=== PATIENT | male | born 1955 | race Caucasian/White ===

== ENCOUNTER → 2017-11-18 08:24 | Outpatient (CLI) | payer OTHER, SELFPAY ==
--- NOTE | 2017-11-18 08:26 | US_ITS ---
STUDY: ABDOMINAL ULTRASOUND - RIGHT UPPER QUADRANT REASON FOR VISIT: Male, 62 years old. Right upper quadrant pain x2 days TECHNIQUE: Ultrasound evaluation of the right upper quadrant was performed with real-time and static holland-scale imaging. TECHNICAL QUALITY: Limited. Examination limited by bowel gas. COMPARISON: None. FINDINGS: Liver: The liver measures 15.5 cm. There is increased echogenicity consistent with fatty infiltration. The bile ducts are within normal limits. There is hepatic color flow. The direction of portal flow is hepatopetal. There is no demonstrated mass lesion. Gallbladder: There is a contracted gallbladder. The gallbladder wall measures 3.3 mm. There is a negative sonographic Hanks's sign. There is no pericholecystic fluid. There is a small 2mm gallbladder polyp. Common Bile Duct (C.B.D.): The common bile duct measures 4.8 mm. Pancreas: Normal size of the head, body and tail of the pancreas. There is normal echogenicity of the pancreas. There is no demonstrated pancreatic mass or cyst. Right Kidney: Normal size of the right kidney. The right kidney measures 9.6 cm. Normal renal cortex. The right cortex measures 1.7 cm. There is no demonstrated renal mass or cyst. There is no right hydronephrosis. Nonobstructing right nephrolithiasis measuring 4 mm and 5 mm. US/Gallbladder IMPRESSION: Small gallbladder polyp without signs of acute cholecystitis. Punctate nonobstructing right nephrolithiasis. Mildly fatty liver. Electronically Signed: Thaddeus Recio DO at 9:43 EDT Tel , Service support ,
== END ==
LOC: US 08:24
PROVIDERS: Family Provider Internal Medicine; PCP Internal Medicine; Visit Provider Nurse Practitioner Gerontology
DX: R10.11 Right upper quadrant pain (principal)
CPT/HCPCS: 76705

== ENCOUNTER → 2018-12-14 11:32 | Outpatient (CLI) | payer OTHER, SELFPAY ==
[2017-11-24 08:08] VITALS: BMI 22.1
--- NOTE | 2018-12-14 11:36 | RAD_ITS ---
STUDY: X-RAY CHEST REASON FOR EXAM: Male, 63 years old. Cough. TECHNIQUE: PA and lateral views of the chest. COMPARISON: None. FINDINGS: The lungs are clear and expanded. There is no demonstrated pleural abnormality. Normal size heart. Normal mediastinum and sundeep. Normal visualized pulmonary arteries. Normal visualized aortic arch and descending thoracic aorta. Normal visualized thoracic spine. Normal visualized ribs, clavicles, and shoulders. There is no demonstrated abnormality of the visualized soft tissue structures of the upper abdomen. RAD/Chest PA and Lateral IMPRESSION: No evidence of acute process or focal airspace disease. Electronically Signed: Rafa Saha DO at 9:28 EDT , Service support ,
== END ==
PROVIDERS: Family Provider Internal Medicine; PCP Internal Medicine; Referring Provider Internal Medicine; Visit Provider Internal Medicine
DX: R05 Cough (principal)
CPT/HCPCS: 71046

== ENCOUNTER → 2019-01-27 08:29 | Outpatient (CLI) | payer OTHER, BC, SELFPAY ==
[2017-11-24 08:08] VITALS: BMI 22.1
[2019-01-27 10:52] LABS: AST(SGOT) 22 U/L (15-37); Alanine Aminotransfer ALT/SGPT 31 U/L (16-61); Albumin, Serum 3.7 g/dL (3.2-5.0); Alkaline Phosphatase 141 U/L (45-117); Bilirubin, Direct 0.08 mg/dL (0.00-0.30); Globulin 3.2 g/dL (2.2-4.2); Protein, Total 6.9 g/dL (6.4-8.2)
[2019-01-29 12:06] LABS: CHOLESTEROL TOTAL 140 mg/dL (100-199); HDL-C 33 mg/dL (>39); HDL-P TOTAL 23.8 umol/L (>=30.5); SMALL LDL-P 634 nmol/L (<=527); TRIGLYCERIDES 118 mg/dL (0-149)
[2019-01-29 12:47] LABS: INSULIN RESISTANCE SCORE 67 (<=45); LDL SIZE 20.2 nm (>20.5); LDL-C 83 mg/dL (0-99); LDL-P 1032 nmol/L (<1000)
== END ==
PROVIDERS: Family Provider Internal Medicine; PCP Internal Medicine; Referring Provider Internal Medicine; Visit Provider Internal Medicine
DX: E78.00 Pure hypercholesterolemia, unspecified (principal)
CPT/HCPCS: 36415; 80061; 80076; 83704

== ENCOUNTER → 2019-09-03 10:37 | Outpatient (CLI) | payer BC, SELFPAY ==
--- NOTE | 2019-09-03 10:55 | RAD_ITS ---
HISTORY: 2 views of the abdomen. Most recent comparison study is October 15, 2014. Findings: Within the right renal shadow, between the right first and second transverse processes there is a 10 mm hyperdense structure new since the previous study likely representing a nephrolith. Comparison CT scan is from March 16, 2014. A right nephrolith in the right ureteral pelvic junction was demonstrated at that time. It is feasible that this is the same kidney stone. Bowel gas pattern is normal. Degenerative disc disease at the L4-L5 and L5-S1 level. Lung bases are clear. Some sclerosis at the pubic symphysis. RAD/Abdomen Single View IMPRESSION: 10 mm calcification within the region of the right ureteral pelvic junction or right renal collecting system appears to be larger than the CT scan of March 16, 2014 at 0605 Reported and signed by: Je Brown MD Electronically Signed: Je Brown MD at 6:03 EST Tel , Service support ,
== END ==
PROVIDERS: PCP Internal Medicine; Referring Provider Urology; Visit Provider Urology
DX: R31.0 Gross hematuria (principal); R10.84 Generalized abdominal pain; Z87.442 Personal history of urinary calculi
CPT/HCPCS: 74018

== ENCOUNTER 2019-09-07 11:01 | Day surgery (SDC) | payer BC, SELFPAY ==
--- NOTE | 2019-09-07 08:27 | RAD_ITS ---
STUDY: X-RAY - ABDOMEN/PELVIS REASON FOR EXAM: Male, 64 years old. PRE RIGHT SIDE ESWL FOR STONE TECHNIQUE: Single AP view of the abdomen / pelvis. COMPARISON: Comparison is made with prior examination dated September 03, 2019. FINDINGS: Normal visualized lung bases. There is an unremarkable bowel gas pattern. 8.1 mm calcification in the region of the right ureteral pelvic junction. Normal soft tissue structures. Normal visualized osseous structures. RAD/Abdomen Single View IMPRESSION: 8.1 mm calculus in the right ureteropelvic junction. Electronically Signed: Oscar Molina, at 12:07 EST , Service support ,
[2019-09-07 11:41] VITALS: BP 170/89; PULSE 84; RESP 16; TEMP 37.4; O2SAT 96; BMI 25.8
[2019-09-07] MEDS: Lactated Ringers 1,000 ML 100 ML IV (11:55)
--- NOTE | 2019-09-07 13:37 | PCM.DC.URO ---
Discharge Diet: Light diet - advance as tolerated Discharge Activity: Return to Normal Activity Call your doctor if you observe: Fever of 101 or Higher Instructions: Shock Wave Lithotripsy Allergies/Adverse Reactions: Allergies hydrocodone bitartrate [From Vicodin] Adverse Reaction (Verified 09/06/19 10:23) Other Medications to take at Discharge Atorvastatin Calcium [Lipitor] 40 mg PO QHS 09/06/19 Primidone [Mysoline] 250 mg PO BID 09/06/19 Umeclidinium Lonepine Inhaler [Incruse Ellipta Inhaler] 1 puff IH DAILY 09/06/19 Ciprofloxacin [Cipro] 500 mg PO BID #6 tab 09/07/19 Hydrocodone/Acetaminophen [[place] 5-325 Tablet] 1 each PO Q4H PRN PRN 5 Days #14 tablet 09/07/19 The following prescriptions were given: Ciprofloxacin [Cipro] 500 mg PO BID #6 tab Transmission Status: Pending to [id number] Hydrocodone/Acetaminophen [[place] 5-325 Tablet] 1 each PO Q4H PRN PRN 5 Days #14 tablet PRN Reason: Pain Score 1-5/10 Transmission Status: Received by [id number] Orders to be completed after discharge: Abdomen Single View [RAD] Time Frame: 09/07/19, Facility: [facility], Location: [facility] [place] Primary Care Physician: Marybeth Thomas DO [Primary Care Provider] - Test Results: Test results from this visit will be discussed in further detail at your follow-up appointment, if applicable. Please Follow Up With: Dean Sarabia MD When: please call to make an appointment.
[2019-09-07] MEDS: Cefazolin 2 GM in 0.9% Normal Saline 100 ML IV (13:46)
--- NOTE | 2019-09-07 14:37 | OP.PCM_ITS ---
Report of Operation Date of Procedure: 09/07/19 Pre-Operative Diagnosis: Right kidney stone Post-Operative Diagnosis: Same Surgery/Procedure Performed:: Cystoscopy and right stent placement, right extracorporeal shockwave lithotripsy Description of Surgical Findings:: 64-year-old male with a stone in the right kidney presents today to the operating room for shockwave lithotripsy to treat the stone we also can place a stent. Patient was taken back to the operating room after smooth induction of general anesthesia he was placed supine on the table, we then underwent anesthesia and then we placed in the dorsolithotomy position went into the bladder with a 21 Palestinian rigid cystourethroscope the entire length the urethra was normal there is no strictures or abnormalities the prostate was normal, I then identified the right ureteral orifice advanced a wire up into the kidney which quarter inside the kidney pelvis and around the stone, I then pushed the stent up into the kidney over the wire once a stent was in good position pulled the wire the stent coiled in the kidney bladder good position. We then placed the stone in the F2 focal point of the lithotripter and proceeded with shockwave lithotripsy triply. At around 2000 shockwaves the stone had broken up really well we pulled out the therapy had and saw a few more fragments in the upper pole we gave another thousand shockwaves to the small fragments and at the end of the treatment the stone it broken up successfully. We were going at a rate of 120 kV up to 5 kV. And at the end the treatment stone it broken up into smaller pieces. Patient anesthetic was reversed plan to see him next week with a KUB and remove the stent at that point. Type of Anesthesia:: General Drains: stent right side - Admit VTE Documentation VTE Present on Admission: No VTE Mechan Device Prophylaxis: SCD's
[2019-09-07 14:56] VITALS: BP 170/89; BP 183/92; PULSE 96; RESP 14; TEMP 36.4; O2SAT 96
[2019-09-07] MEDS: Ketorolac 15 MG/ML Vial IV (14:59)
[2019-09-07 15:00] VITALS: BP 170/89; BP 185/84; PULSE 73; RESP 16; O2SAT 95
[2019-09-07 15:15] VITALS: BP 170/89; BP 185/93; PULSE 72; RESP 16; O2SAT 95
[2019-09-07 15:19] VITALS: BP 170/89; BP 197/93; PULSE 68; RESP 16; TEMP 36.3; O2SAT 94
[2019-09-07 15:56] VITALS: BP 170/89; BP 178/88; PULSE 77; RESP 16; TEMP 37.5; O2SAT 95
== END 2019-09-07 16:02 | disposition home or self-care (01) ==
LOC: SDC 11:05 → AC 11:12
PROVIDERS: PCP Internal Medicine; Referring Provider Urology; Visit Provider Urology
PROC: (CPT 50590; principal; 2019-09-07 13:30)
DX: N20.0 Calculus of kidney (principal); R31.0 Gross hematuria; I10 Essential (primary) hypertension; E78.5 Hyperlipidemia, unspecified; M79.10 Myalgia, unspecified site; K21.9 Gastro-esophageal reflux disease without esophagitis; F41.9 Anxiety disorder, unspecified; F17.200 Nicotine dependence, unspecified, uncomplicated; Z87.442 Personal history of urinary calculi; Z79.899 Other long term (current) drug therapy
CPT/HCPCS: 50590; 52332; 74018; J7120; C1769; C2617; J2405

== ENCOUNTER → 2019-09-13 12:51 | Outpatient (CLI) | payer BC, SELFPAY ==
[2019-09-07 11:41] VITALS: BMI 25.8
--- NOTE | 2019-09-13 12:55 | RAD_ITS ---
STUDY: X-RAY - ABDOMEN/PELVIS REASON FOR EXAM: Male, 64 years old. TOOK OUT KIDNEY ON RIGHT SIDE. STINT WAS PUT IN X LAST WEEK. TECHNIQUE: Single AP view of the abdomen / pelvis. COMPARISON: FINDINGS: Normal visualized lung bases. There is an unremarkable bowel gas pattern. There is no demonstrated free abdominal air. Interval placement of right ureteral stent. No definite ureteral stone. Normal soft tissue structures. Normal visualized osseous structures. RAD/Abdomen Single View IMPRESSION: Interval placement of right ureteral stent. No definite ureteral stone. Electronically Signed: Patrick Stanton MD at 10:12 EST Tel , Service support ,
== END ==
PROVIDERS: PCP Internal Medicine; Referring Provider Urology; Visit Provider Urology
DX: N20.0 Calculus of kidney (principal)
CPT/HCPCS: 74018

== ENCOUNTER → 2021-04-23 15:28 | Outpatient (CLI) | payer BC, SELFPAY ==
--- NOTE | 2021-04-23 15:31 | CT_ITS ---
EXAM: CT CHEST, LUNG CANCER SCREENING WITHOUT INTRAVENOUS CONTRAST : 1955 CLINICAL INDICATION: COPD TECHNIQUE: Helically acquired images were obtained of the chest without intravenous contrast using low dose (LDCT) lung cancer screening protocol. This CT exam was performed using one or more of the following dose reduction techniques: automated exposure control, adjustment of the mA and/or kV according to patient size, and/or use of iterative reconstruction technique. This report was created using [employer] report generation technology. COMPARISON: None. FINDINGS: LUNGS AND PLEURAL SPACES: Unremarkable. No mass. No consolidation or edema. No pleural effusion or thickening. No pneumothorax. HEART: Unremarkable. Heart size is normal. No pericardial effusion. MEDIASTINUM: Unremarkable. No mediastinal or hilar adenopathy. Esophagus is unremarkable. No hiatal hernia. THYROID: Unremarkable. No thyroid lesions. BONES/JOINTS: Unremarkable. No suspicious lytic or blastic abnormality. VASCULATURE: Unremarkable. Thoracic aorta is non-dilated. LYMPH NODES: Unremarkable. No enlarged lymph nodes. CT/Low Dose CT Lung Screening IMPRESSION: 1. Normal chest CT. 2. Lung RADS category 1 Individualized dose optimization techniques were used for this CT. at 1731 Reported and signed by: Efrain Sellers MD Electronically Signed: Efrain Sellers MD at 17:29 EDT Tel , Service support ,
== END ==
PROVIDERS: PCP Internal Medicine; Referring Provider Internal Medicine; Visit Provider Internal Medicine
DX: Z12.2 Encounter for screening for malignant neoplasm of respiratory organs (principal); J44.9 Chronic obstructive pulmonary disease, unspecified
CPT/HCPCS: 71271

== ENCOUNTER → 2022-04-12 | Outpatient (CLI) | payer BC, SELFPAY ==
--- NOTE | 2022-04-12 | IMM_PTH ---
PATIENT: VISHAL GAR LOC: [facility] U#:[id number] AGE/SX: 67/M ROOM: RE04/12/[address]: Dr. Dean Sarabia MD : 1955 BED: DIS: 04/12/2022 SPEC #: [id number] RECD: 04/14/22 12:51 STATUS: KARRIE REQ #: [id number] DANIA: 04/12/22 00:[address]: Dean Sarabia DEPT: IMMUNOHISTOCHEMISTRY RECD BY: Kelli Haro ENTERED: 04/14/22 12:52 SP TYPE: IMMUNO OTHR DR: Dr. Marybeth Thomas, Tissues: E - PROSTATE LEFT Procedures: P40 (add) 34BE12 (initial) PHYSICIAN & INSTITUTION [place] [id number] SPECIMEN INFORMATION: Tissue Source: E - Left prostate, mid, core biopsy Clinical Info: Elevated PSA Specimen Number: [id number] CPT code: 66858, 54278 METHODOLOGY: Deparaffinized sections of prefer/formalin-fixed tissue or PAP/DQ stained slides are incubated with monoclonal/polyclonal antibodies/oligonucleotide probes. Localization is made via biotin free immunoperoxidase method. Appropriate controls are performed and reacted as expected. Results on target cell population are indicated in the following table: RESULTS: ANTIBODY / CLONE RESULT Block E P40 (BC28) negative 34BE12 (34BE12) negative These tests were developed and their performance characteristics determined by [facility]. They may not have been cleared or approved by the U.S. Food and Drug Administration. The FDA has determined that such clearance or approval is not necessary. The above immunohistochemical/dualISH markers are ordered and reviewed by the Pathologist. INTERPRETATION: Grace Left prostate, mid, core biopsy: Minute focus of adenocarcinoma. AM:anne-marie 04/16/2022
--- NOTE | 2022-04-12 08:00 | PROSBIL_PTH ---
PATIENT: VISHAL GAR LOC: [facility] U#:[id number] AGE/SX: 67/M ROOM: RE04/12/[address]: Dr. Dean Sarabia MD : 1955 BED: DIS: 04/12/2022 SPEC #: [id number] RECD: 04/12/22 16:00 STATUS: KARRIE SOILA #: [id number] DANIA: 04/12/22 08:[address]: Dean Sarabia DEPT: SURGICAL PATHOLOGY RECD BY: Maryse Dutta ENTERED: 04/13/22 08:03 SP TYPE: PROST BX VERONIKA DR: Dr. Marybeth Thomas DO Tissues: A - PROSTATE RIGHT B - PROSTATE RIGHT C - PROSTATE RIGHT D - PROSTATE LEFT E - PROSTATE LEFT F - PROSTATE LEFT Procedures: PROSTATE BX HEADER OPERATION: Prostatic biopsy PRE-OP DIAGNOSIS: Elevated PSA R97.20 TISSUE SUBMITTED: A - Right apex, B - Right mid, C - Right base, D - Left apex, E - Left mid, F - Left base MICROSCOPIC DIAGNOSIS A. Right prostate, apex, core biopsy: Adenocarcinoma. [place] grade: 7 (3+4) Cores involved: 1 out of 1 Tissue involved: 35% Greatest tumor length: 4 millimeters B. Right prostate, mid, core biopsy: Adenocarcinoma. [place] grade: 7 (3+4) Cores involved: 2 out of 2 Tissue involved: 70% Greatest tumor length: 7 millimeters C. Right prostate, base, core biopsy: Focal high-grade prostatic intraepithelial neoplasia (HGPIN). Mild chronic inflammation with focal acute inflammation. D. Left prostate, apex, core biopsy: Focal acute inflammation. E. Left prostate, mid, core biopsy: Adenocarcinoma. [place] grade: 6 (3+3) Cores involved: 1 out of 2 Tissue involved: <1% Greatest tumor length: 1.0 millimeters F. Left prostate, base, core biopsy: Adenocarcinoma. Dayo grade: 6 (3+3) Cores involved: 2 out of 2 Tissue involved: 45% Greatest tumor length: 4.5 millimeters AM:anne-marie 04/14/2022 COMMENT E. Immunohistochemistry ([id number]) supports the above diagnosis. Case has been reviewed in consultation with Dr. Steen who concurs with the above diagnosis. IDC:SJ MICROSCOPIC DESCRIPTION Slides are reviewed. GROSS DESCRIPTION A - Received is one container designated prostate, right apex. The specimen consists of one elongated fragment of light bull-white soft tissue measuring 1.5 cm in length and 0.1 cm in diameter. The specimen is totally submitted in one cassette. B - Received is one container designated prostate, right mid. The specimen consists of two elongated fragments of light bull-white soft tissue each measuring 1 cm in length and 0.1 cm in diameter. The specimen is totally submitted in one cassette. C - Received is one container designated prostate, right base. The specimen consists of two elongated fragments of light bull-white soft tissue each measuring 1 cm in length and 0.1 cm in diameter. The specimen is totally submitted in one cassette. D - Received is one container designated prostate, left apex. The specimen consists of two elongated fragments of light bull-white soft tissue measuring 0.5 and 0.7 cm in length and 0.1 cm in diameter. The specimen is totally submitted in one cassette. E - Received is one container designated prostate, left mid. The specimen consists of two elongated fragments of light bull-white soft tissue each measuring 1.5 cm in length and 0.1 cm in diameter. The specimen is totally submitted in one cassette. F - Received is one container designated prostate, left base. The specimen consists of two elongated fragments of light bull-white soft tissue measuring 1.5 and 2 cm in length and 0.1 cm in diameter. The specimen is totally submitted in one cassette. / SJ:rg 04/13/2022 TC:0 CPT: 93299 x6
== END | disposition home or self-care (01) ==
LOC: LABSPEC 16:50
PROVIDERS: PCP Internal Medicine; Visit Provider Urology
DX: R97.20 Elevated prostate specific antigen [PSA] (principal)
CPT/HCPCS: 88305; 88341; 88342; G0416

== ENCOUNTER → 2022-05-13 | Outpatient (CLI) | payer BC, SELFPAY ==
--- NOTE | 2022-05-13 07:53 | CT_ITS ---
STUDY: CT ABDOMEN AND PELVIS WITH CONTRAST REASON FOR EXAM: Male, 67 years old. Known prostate CA RADIATION DOSAGE (If Supplied By Facility): CTDIvol = ( 13.72 ) mGy, DLP = ( 784.09 ) mGycm TECHNIQUE: Transaxial images were obtained from the dome of the diaphragm to the symphysis pubis with oral contrast. IV 100mL Isovue-300 was administered. Sagittal and coronal images were reconstructed. Individualized dose optimization techniques were used for this CT. COMPARISON: No recent studies, previous CT from 2013 FINDINGS: The visualized lung bases are unremarkable. The visualized portions of the heart are within normal limits. Normal liver. Normal gallbladder and extrahepatic biliary system. Normal spleen. Normal pancreas. Normal bilateral adrenal glands. There is mild right hydronephrosis and hydroureter with induration of the fat around the UPJ. There is a 0.80 cm stone in the right UPJ. The right ureter distal to the UPJ is of normal course and caliber. Left kidney is free of obstructive uropathy. Normal visualized stomach. Normal small intestine. Retained stool noted throughout the colon. The appendix is visualized and appears normal. Appendix seen on coronal recon images 60 through 70, it contains appendicoliths There is diffuse atherosclerotic calcification of the abdominal aorta, without a demonstrated aneurysm. Normal inferior vena cava. Normal retroperitoneum. Normal urinary bladder. There are prostatic calcifications. Normal abdominal wall. There are diffuse degenerative changes of the visualized lumbar spine. CT/Abdomen/Pelvis WITH Contrast IMPRESSION: Right-sided hydronephrosis and dilatation of the UPJ subtle inflammatory stranding around the right UPJ. Findings likely due to a 0.80 cm calcification in the UPJ. No free intraperitoneal fluid, air, or suspicious adenopathy, normal appendix visualized Retained stool throughout the colon Degenerative bony changes Electronically Signed: Fredrick Soriano MD at 8:51 EDT ,
[2022-05-13 08:40] LABS: CREATININE FINGERSTICK 1.4 mg/dL (0.70-1.30)
== END | disposition home or self-care (01) ==
PROVIDERS: PCP Internal Medicine; Referring Provider Urology; Visit Provider Urology
DX: C61 Malignant neoplasm of prostate (principal)
CPT/HCPCS: 74177; Q9967

== ENCOUNTER → 2022-05-18 | Outpatient (CLI) | payer BC, SELFPAY ==
[2022-05-18 12:25] LABS: Hematocrit 47.7 % (40-54); Hemoglobin 16.6 g/dL (13.0-16.5); Mean Corp Hgb Conc 34.8 g/dL (32-36); Mean Corpuscular Hgb 31.4 pg (27.0-32.0); Mean Corpuscular Volume 90.2 fL (80-94); Mean Platelet Vol. 10.6 fl (6.2-12.0); Platelet Count 206 K/mm3 (150-450); RBC Distribution Width CV 12.7 % (11.6-14.6); RBC Distribution Width SD 41.8 fl (35.1-43.9); Red Blood Count 5.29 M/mm3 (4.6-6.2); White Blood Count 12.6 K/mm3 (4.4-11.0)
[2022-05-18 12:57] LABS: Anion Gap 4 (5-15); BUN 16 mg/dL (7-18); BUN/Creat Ratio 13.8 RATIO (10-20); Chloride 107 mmol/L (98-107); Creatinine, Serum 1.16 mg/dL (0.70-1.30); EST Glomerular Filtration Rate 67 mL/min (>60); Est Glom Filt Rate - Afr Amer 81 mL/min (>60); Glucose 93 mg/dL (74-106); Potassium 4.2 mmol/L (3.5-5.1); Sodium Level 137 mmol/L (136-145)
== END | disposition home or self-care (01) ==
LOC: LAB 11:53
PROVIDERS: PCP Internal Medicine; Visit Provider Urology
DX: Z01.812 Encounter for preprocedural laboratory examination (principal)
CPT/HCPCS: 36415; 80048; 85027

== ENCOUNTER → 2022-05-25 | Outpatient (CLI) | payer BC, SELFPAY ==
--- NOTE | 2022-05-25 15:44 | EKG12_ITS ---
Test Reason : PRE OP Blood Pressure : / mmHG Vent. Rate : 101 BPM Atrial Rate : 101 BPM P-R Int : 132 ms QRS Dur : 066 ms QT Int : 324 ms P-R-T Axes : 000 054 024 degrees QTc Int : 420 ms Sinus tachycardia with occasional Premature ventricular complexes Nonspecific ST and T wave abnormality Abnormal ECG Confirmed by RAFAELA GABRIEL, LESLY ([id number]), editor city ADRIAN TRUONG ([id number]) on 05/26/2022 9:32:09 AM Referred By: Dean Sarabia Confirmed By:LESLY RUSSO MD
== END | disposition home or self-care (01) ==
LOC: PSN 15:43
PROVIDERS: PCP Internal Medicine; Referring Provider Urology; Visit Provider Urology
DX: Z01.810 Encounter for preprocedural cardiovascular examination (principal)
CPT/HCPCS: 93005

== ENCOUNTER → 2022-06-25 | Outpatient (CLI) | payer BC, SELFPAY ==
--- NOTE | 2022-06-25 09:08 | NM_ITS ---
CLINICAL: 67-year-old male with history of carcinoma of the prostate. WHOLE BODY 99m Tc MDP RADIONUCLIDE BONE SCINTIGRAPHY COMPARISON: None available FINDINGS: Following the intravenous administration of 26.5 mCi of 99m Tc MDP, whole body bone images reveal: 1. Increased tracer concentration is defined in the acromioclavicular compartments of both shoulders, the right midfoot, the posterior midline sacrum. 2. The remaining skeletal structures are scintigraphically unremarkable with normal-appearing renal images and urinary bladder activity identified. NM/Bone Scan Whole Body IMPRESSION: 1. The increase in tracer concentration defined in the bilateral shoulders, sacrum and right midfoot are most consistent with degenerative arthrosis. 2. There is no definitive scintigraphic evidence of diffuse axial skeletal metastatic disease on the current examination. Electronically Signed: Patrick Vizcarra, at 11:25 EST ,
== END | disposition home or self-care (01) ==
LOC: NM 09:07
PROVIDERS: PCP Internal Medicine; Visit Provider Urology
DX: C61 Malignant neoplasm of prostate (principal)
CPT/HCPCS: 78306; A9503

== ENCOUNTER 2022-06-30 14:19 | Observation (INO) | payer BC, MEDICARE, SELFPAY ==
[2022-06-30] VITALS (16 sets, daily range): BP systolic 114–171; BP diastolic 62–86; PULSE 76–95; RESP 14–18; TEMP 36.3–36.8; O2SAT 93–100; BMI 23.7; BMI 25.4
--- NOTE | 2022-06-30 | IMM_PTH ---
PATIENT: VISHAL GAR LOC: [facility] U#:[id number] AGE/SX: 67/M ROOM: [facility] RE06/30/[address]: Dr. Dean Sarabia MD : 1955 BED: 1 DIS: 07/01/2022 SPEC #: [id number] RECD: 07/02/22 12:35 STATUS: KARRIE REAnthony #: [id number] DANIA: 06/30/22 00:[address]: Dean Sarabia DEPT: IMMUNOHISTOCHEMISTRY RECD BY: Kelli Haro ENTERED: 07/02/22 12:36 SP TYPE: IMMUNO OTHR DR: Dr. Marybeth Thomas, DO Tissues: B - Prostate, NOS Procedures: CK8 (add) Pankeratin (initial) PHYSICIAN & INSTITUTION [place] [id number] SPECIMEN INFORMATION: Tissue Source: B ? Fat over prostate Clinical Info: Malignant neoplasm of prostate Specimen Number: [id number] CPT code: 25005, 30636 METHODOLOGY: Deparaffinized sections of prefer/formalin-fixed tissue or PAP/DQ stained slides are incubated with monoclonal/polyclonal antibodies/oligonucleotide probes. Localization is made via biotin free immunoperoxidase method. Appropriate controls are performed and reacted as expected. Results on target cell population are indicated in the following table: RESULTS: ANTIBODY / CLONE RESULT Block B AE1-3 (AE1/AE3/PCK26) negative CK8 (01otllL69) negative These tests were developed and their performance characteristics determined by [facility]. They may not have been cleared or approved by the U.S. Food and Drug Administration. The FDA has determined that such clearance or approval is not necessary. The above immunohistochemical/dualISH markers are ordered and reviewed by the Pathologist. INTERPRETATION: B. Fat over prostate: One lymph node, negative for metastatic carcinoma. SJ:anne-marie 07/05/2022
[2022-06-30] MEDS: Lactated Ringers 1,000 ML 15 ML IV (06:46)
[2022-06-30] MEDS: Cefazolin 2 GM in 0.9% Normal Saline 100 ML IV (07:28)
--- NOTE | 2022-06-30 07:30 | PROST_PTH ---
PATIENT: VISHAL GAR LOC: MS3 U#:[id number] AGE/SX: 67/M ROOM: [facility] [place] RE06/30/[address]: Dr. Dean Sarabia MD : [id number] BED: 1 DIS: 07/01/2022 SPEC #: [id number] RECD: 06/30/22 11:46 STATUS: KARRIE SOILA #: [id number] DANIA: 06/30/22 07:[address]: Dean Sarabia DEPT: SURGICAL PATHOLOGY RECD BY: Maryse Dutta ENTERED: 06/30/22 12:46 SP TYPE: PROSTATE OTHR DR: Dr. Marybeth Thomas, DO Tissues: A - Prostate, NOS B - Adipose tissue C - Lymph node of pelvis, NOS D - Lymph node of pelvis, NOS E - Neck of urinary bladder Procedures: Surgery Specimen Level IV Surgery Specimen Level V Surgery Specimen Level HEADER OPERATION: Laparoscopic robotic radical prostatectomy PRE-OP DIAGNOSIS: Malignant neoplasm of prostate TISSUE SUBMITTED: A ? Prostate, B ? Fat over prostate, C ? Right pelvic lymph node, D ? Left pelvic lymph node, E ? Bladder neck margin MICROSCOPIC DIAGNOSIS A. Prostate, radical prostatectomy: Prostatic adenocarcinoma. See cancer summary in the comment section. B. Fat over prostate: Adipose tissue, negative for carcinoma. One lymph node, negative for metastatic carcinoma. See comment. C. Right pelvic lymph node: A piece of adipose tissue, negative for carcinoma. See comment. D. Left pelvic lymph node: One lymph node, negative for metastatic carcinoma. E. Bladder neck margin: Negative for carcinoma. SJ:anne-marie 07/02/2022 COMMENT A. PROSTATE CANCER (RADICAL) SUMMARY: Procedure: Radical Prostatectomy Prostate Size: Weight: 33 gm Size: 3 cm transversely, 3 cm anterior-posteriorly and 3.5 cm craniocaudally Histologic Type: Acinar adenocarcinoma Histologic Grade: grade group 2 and Dayo score (score 3+4=7) Tumor Quantitation: Estimated percentage of prostate involved by tumor: ~30% Tumor size: Tumor involves both right and left lobes, apical, mid and basal portion of the prostate. Tumor is measured microscopically and it measures approximately 2 x 1 x 0.8 cm in the right lobe and It measures approximately 2 x 2 x 1 cm in the left lobe Extraprostatic Extension: Not identified Urinary Bladder Neck Invasion: Not identified Seminal Vesicle Invasion: Not identified Lymphvascular Invasion: Not identified Perineural Invasion: Present, focal Margins: Margin is focally involved by invasive carcinoma. Linear length of positive margin: <1 mm Focality: Unifocal Location of positive margin: Right lateral margin [place] pattern at positive margin: Pattern 3 Treatment effect: No known presurgical therapy. Regional Lymph Nodes: Number of lymph nodes examined: 2 Number of lymph nodes involved: 0 Additional Pathologic Findings: High-grade prostatic intraepithelial neoplasia (HGPIN) and chronic inflammation. Ancillary Studies: Not performed. PATHOLOGIC STAGE: pT2 pN0 pMx The above summary is in compliance with [employer] (CAP) Cancer Protocols Checklist and [place] Joint Committee on Cancer (AJCC), Staging Manual, 8th Ed. B. Immunohistochemistry ([id number]) supports the above diagnosis. C. Lymph node tissue is not identified in the specimen. Please make reference to previous specimen ([id number]), right prostate apex and mid and left prostate mid and base, core biopsies with diagnosis of ?adenocarcinoma.? Case has been reviewed in consultation with Dr. Olivares who concurs with the above diagnosis. IDC:AM MICROSCOPIC DESCRIPTION Slides are reviewed. GROSS DESCRIPTION A - Received in fixative is one container labeled with the patient's name and designated prostate. The specimen consists of a radical prostatectomy specimen consisting of prostate and bilateral seminal vesicles. The specimen weighs 33 gm. The prostate measures 3 cm transversely, 3 cm anterior-posteriorly and 3.5 cm craniocaudally. The right seminal vesicle measures 2.5 x 2 x 0.5 cm and right vas deferens measures 3 cm in length and 0.5 cm in diameter. The left seminal vesicle measures 2.5 x 1.5 x 1 cm and the left vas deferens measures 2 cm in length and 0.5 cm in diameter. The prostate is inked as follows: anterior surface - yellow, posterior surface - black, right lateral surface - blue, left lateral surface - green. The bilateral seminal vesicles and vas deferens are inked as follows: Posterior surface bilateral seminal vesicle and vas deferens - black, anterior surface right seminal vesicle and vas deferens - blue and anterior left seminal vesicle and vas deferens - green. Sections of the prostate reveal multiple stones. No mass lesion is identified. Occupational Hygienist sections are submitted in 18 cassettes as follows: 1?- right seminal vesicle and vas deferens, 2 - left seminal vesicle and vas deferens, 3 - apical (urethral) margin, enface, 4 & 5 - bladder base margin, enface, 6-10 - apical portion prostate, 11-14 - middle portion prostate, 15-18 - basal portion prostate. / : 07/01/2022 B - Received in fixative is one container labeled with the patient's name and designated fat over prostate. The specimen consists of a piece of yellow adipose tissue measuring 3.5 x 2 x 0.4 cm. Sections do not reveal any mass lesion. The entire specimen is submitted in one cassette. / : 06/30/2022 C - Received in fixative is one container labeled with the patient's name and designated right pelvic lymph node. The specimen consists of a piece of adipose tissue measuring 3 x 2.5 x 0.5 cm. No obvious lymph node tissue is identified. The entire specimen is submitted in two cassettes. / : 06/30/2022 D - Received in fixative is one container labeled with the patient's name and designated left pelvic lymph node. The specimen consists of a piece of adipose tissue measuring 3 x 2 x 0.5 cm. The specimen is serially sectioned and reveals one lymph node. The specimen is submitted entirely in two cassettes. / : 06/30/2022 E - Received in fixative is one container labeled with the patient's name and designated bladder neck margin. The specimen consists of a piece of bull-pink, indurated tissue measuring 2 x 1 x 0.5 cm. This piece is bisected. Also present in the container are two pieces of bull-pink soft tissue measuring in aggregate 1 x 0.3 x 0.2 cm. The entire specimen is submitted in one cassette. / : 06/30/2022 TC:0 CPT: 63788, 94032, 81348 x2
--- NOTE | 2022-06-30 07:34 | DCINST_ITS ---
Discharge Instructions Diet Discharge Diet: No restrictions, Light diet - advance as tolerated and Soft diet Activity Discharge Activity: May Not Drive and May Shower Return to work on:: 07/28/22 May shower in (days): 1 Dressing / Incision Call your doctor if your incision/area has: Increased Redness Suture Line Care: Avoid Pulling/Pushing and Avoid Pinching/Bending Cleanse incision/area with: Soap & Water Catheter: Barcenas to leg bag and Barcenas to large bag Drain: [place] Follow Up Care Please Follow Up With: Dean Sarabia MD When: 2 weeks Test Results: Test results from this visit will be discussed in further detail at your follow- up appointment, if applicable. Discharge Plan Admission Primary Reason for Your Visit: prostate cancer Attending Provider: Dean Sarabia Primary Care Provider: Marybeth Thomas Discharge Orders/Prescriptions Prescriptions: New ciprofloxacin HCl [Cipro] 500 mg tablet 500 mg PO BID Qty: 20 0RF docusate sodium [Colace] 100 mg capsule 100 mg PO BID Qty: 20 0RF oxycodone-acetaminophen 5-325 mg tablet 1 tab PO Q6H PRN (Reason: pain) 7 Days Qty: 14 0RF Continued primidone 250 MG tablet 250 mg PO BID Spiriva Respimat 2.5 mcg/actuation Mist 1 puff INHALATION DAILY Referrals / Follow Up: Dean Sarabia MD [Med Staff - Active Staff] - Marybeth Thomas DO [Primary Care Provider] - Disposition Disposition (needs filled in before D/C Order can be placed): Home, Self Care
[2022-06-30] MEDS: Lubricating Jelly 60 GM Tube 30 GM (07:57)
[2022-06-30] MEDS: Bupivacaine Mpf 0.5% 30 ML VIAL (10:58)
--- NOTE | 2022-06-30 11:05 | OP.PCM_ITS ---
Report of Operation Date of Procedure: 06/30/22 Pre-Operative Diagnosis: Prostate cancer Post-Operative Diagnosis: The same Surgery/Procedure Performed:: Laparoscopic robotic assisted radical prostatectomy, bilateral pelvic lymph node dissection, suture suspension of the urethra Description of Surgical Findings:: Patient presented to the hospital for treatment of his prostate cancer with radical prostatectomy. In the preoperative setting we discussed the options of management for his prostate cancer including active surveillance, radiation treatments, radioactive seeds, and radical robotic prostatectomy. We discussed the side effects of surgery including the potential to lose erections. We discussed the potential to have bladder control problems with stress incontinence which can be temporary or permanent. We discussed the risk of the surgery including the risk of general anesthetic, risk of bleeding, risk of infection, and risk of formation of hernia either incisional hernia or inguinal hernia. After long discussion with the patient the preoperative setting and also reviewed this in the preop area patient signed the consent form and we proceeded with a radical prostatectomy. Patient was taken back to the operating room he was identified, time out procedure was performed and he was placed supine on the table he underwent general anesthesia with intubation. The abdomen was shaved prepped and draped in usual sterile fashion as well as the penis and testicles. A 16 [place] catheter was placed into the bladder with clear return of urine. I then made an incision in the umbilicus and dissected down to the fascia advance a Veress needle into the peritoneal cavity and insufflated the peritoneal cavity with CO2 gas. I then placed a 12 mm trocar above the umbilicus. I then visualized the placement of the rest of the trochars, I placed a right arm robotic trocar, and air seal trocar, a suction port 5 mm trocar. And on the left side I placed 2 robotic arms. Once all the trochars were in placed the patient was put in steep Trendelenburg. And the robot was docked the arms were docked and then I placed the 0 degree camera through the robotic arm and also used a 30 degree camera during certain parts of the case. I used scissors in the right arm, prograsp in the third arm, and a bipolar in the second arm. Initial dissection was to free the sigmoid colon off the lateral wall this was done by meticulously dissecting off the peritoneum and the sigmoid colon off the left lateral wall. This then allowed the prograsp to retract the sigmoid colon out of the pelvis. I then went below the bladder and identified the vas deferens incised the peritoneum over the vas deferens and traced the vas deferens below the bladder to the prostate and identified the right and left vasa deferens. Below behind the vas deferens then the seminal vesicles were identified. I then dissected the seminal vesicle free using pinpoint electrocautery and then we identified the other seminal vesicle and then dissected this using pinpoint electrocautery I then elevated the vas deferens and several vesicles off the prostate and was able to sweep the Denonvilliers' fascia off the prostate posteriorly all the way up to the apex of the prostate. Working laterally I made sure I went as lateral as possible to sweep the Denonilliers' fascia off the posterior aspect of the prostate and worked my way back, I then transected the vas deferens and the left and right side the seminal vesicles were then dissected free. And then I pulled out of the pelvis. At this point the bladder was dropped creating the space of Retzius with the bladder on traction with the fourth arm. Using electrocautery I dissected in the anterior peritoneal fascia and then created the space of Retzius dissecting towards the prostate. The pelvic lymph node dissection was then performed both on the left and the right pelvic lymph nodes the nodes that were taken on the right side extended from the right iliac artery lateral pelvic sidewall up to the junction of the artery and the lymph nodes and down to the obturator nerve and then also below the sueding and buffing machine operator nerve all the lymph nodes were removed during to remove those lymph nodes we used clips and electrocautery to control small blood vessels and also the control lymphatic. I then went to the left side and again did an extensive lymph node dissection starting of the left iliac artery extending the left iliac vein on the lateral sidewall down to the obturator nerve and the left side beyond the sueding and buffing machine operator nerve down further behind it cleaning out all the lymphatic tissue all this tissue was sent off as a specimen we use clips and electrocautery during the dissection. At the end we cleaned out all the lymphatic tissue on the right pelvic wall and no lymphatic tissue in the left pelvic wall. The prostate was then cleaned of the fat over the prostate and the fourth arm was used to retract the bladder and place traction. I then identified the endopelvic fascia that was overlying the prostate on the right side I incised endopelvic fascia and wwept the levator muscles off the prostate all the way to the apex on the right side, I then worked my way anterior to the prostate then transected to the puboprostatic ligament and the underlying dorsal vein complex was not injured. I then went to the other side and identified the endopelvic fascia in the left side incised in a fashion the left side and swept the levator muscles off the prostate on the left side all the way up to the apex the puboprostatic ligament on the left side was then dissected and transected I then freed up the fascia overlying the dorsal vein complex. I then used the prograsp to encircled the dorsal vein complex with the prograsp and then switched over to the right and left needle log driver and suture ligated the dorsal vein complex above the prograsp. The prograsp was then placed back in the bladder and put back on traction I then identified the junction between the bladder and the prostate and dissected down between the bladder and the prostate untilI came across the catheter we then dissected posteriorly to the bladder and prostate to free the prostate and the bladder off each other and the muscles between the bladder and the prostate was then cauterized to free up the bladder. I then went on top of the prostate and identified the endopelvic fascia on top of the prostate this was incised all the way to the apex and then we swept the endopelvic fascia off the prostate laterally and then identified the plane between endopelvic fascia and the prosthetic pseudocapsule and swept the fascia laterally until reaching the course of the neurovascular bundles and then released the neurovascular bundles off the prostate laterally all the way back in a retrograde fashion back to the junction of the pedicles then the prostate was placed on traction with the fourth arm pulling the prostate laterally identified the pedicle to the prostate between the seminal vesicles and the and the neurovascular bundle and this was taken using sequential small hemolocks. After the pedicle was taken the I then dissected underneath the prostate sweeping the neurovascular bundle off the prostate we able to follow the nice smooth plane between the neurovascular bundle and the pseudocapsule all the way to the apex once this was identified we swept this up all the way up to the apex and there was perfect nerve sparing on the right side. Then went to the left side the prostate identified the endopelvic fascia over the left side of the prostate I incised the endopelvic fascia all the way to the apex and then swept this off laterally I then released the neurovascular bundles on the left side of the prostate sweeping him off the prostate laterally I then elevated the prostate up up with the prostate and traction identified the pedicle to the prostate on the left side and then the pedicles taken with sequential Hem-o-jenise clips I then was able to dissected the neurovascular bundle off the left po sterior aspect the prostate this was a perfect dissection all the way up on the left side following the pseudocapsule all the way up the left side until we reached the apex of the prostate. After the both the neurovascular bundles has been swept off the posterior to the prostate I then went above and transected the dorsal vein complex there was minimal to no bleeding but then dissected down to the urethra and circumfencial dissected around the urethra I then switched the right and left arm with the needle drivers and I suture-ligated the dorsal vein complex again just to ensure that there was no bleeding from the dorsal vein complex. I then transected through the urethra with scissors and the prostate was then freed and released off the prostate bed and put an Endo Catch bag. At this point the bladder neck was reconstructed and then an anastomosis was performed between the prostate and the bladder with a 3 oh V-Loc stitch in a running fashion starting from the bladder neck at the 6 o'clock position working to the 12 o'clock position with continuous stitches to complete a perfect anastomosis between the bladder and the prostate. I then placed a new catheter into the bladder, an 18 [place] kasaan tip catheter flushed the bladder and there was no leakage from the anastomosis I put 10 cc in the balloon and pulled it up pulled back gently. I then ensured that there was no bleeding from the dorsal vein complex no bleeding from the neurovascular bundles FloSeal was placed as necessary once hemostasis was ensured and adequate then I placed the bladder back in position in the pelvis the prostate was exchanged to the camera port I closed the air seal port with a 10 12 Esdras Lebron stitch. And the extracted the prostate through the umbilicus. The robot was undocked all the ports were removed under direct visualization then closed the extraction site with 0 Vicryl with a CT1 needle once the extraction site was closed. I then closed all the incision with subcuticular stitches with 4-0 Monocryl and then bandages were placed on the incisions catheter was flushed to make sure it was draining well there was no clots and it was crystal clear patient's anesthetic was reversed he was extubated and taken back to the PACU in stable condition all the needles and sponges and instruments were accounted for. Blood loss was minimal and the drain was a 18 [place] Barcenas catheter. No other surgical drain was left. I was present during the entire case. Surgeon: Dean Sarabia Type of Anesthesia: General Drains: 18 fr doley Estimated Blood Loss (mL): 250 Admit VTE Documentation VTE Present on Admission: No VTE Mechan Device Prophylaxis: SCD's VTE Pharm Prophylaxis ordered?: No
[2022-06-30] MEDS: Ketorolac 15 MG/ML Vial IV ×3 (12:48→23:52)
[2022-06-30] MEDS: Lactated Ringers 1,000 ML 125 ML IV ×2 (13:08→23:51)
[2022-06-30] MEDS: Ciprofloxacin 400 MG/200 ML BAG 200 MG IV (15:31)
[2022-06-30] MEDS: 0.9% Saline Lock 10 ML Syringe IV ×3 (18:08→23:52)
[2022-06-30] MEDS: Ondansetron 4 MG/2 ML Vial IV (19:38)
--- NOTE | 2022-06-30 19:53 | CPS ---
PATIENT VOMITING UNABLE TO PERFORM.
[2022-06-30] MEDS: Calcium Carbonate 500 MG Tablet PO (21:27)
[2022-06-30] MEDS: Docusate Sodium 100 MG Capsule 200 MG PO (21:29)
[2022-06-30] MEDS: Primidone 250 MG Tablet PO (21:29)
[2022-07-01 03:19] VITALS: O2SAT 88
[2022-07-01 03:20] VITALS: PULSE 93; O2SAT 95
[2022-07-01] MEDS: Ciprofloxacin 400 MG/200 ML BAG 200 MG IV (03:38)
[2022-07-01 06:30] VITALS: BP 101/75; PULSE 89; PULSE 95; RESP 18; TEMP 37.2; O2SAT 93; O2SAT 97
[2022-07-01] MEDS: Ketorolac 15 MG/ML Vial IV (06:33)
[2022-07-01 06:45] VITALS: PULSE 95; RESP 18; O2SAT 93
[2022-07-01] MEDS: Ipratropium 0.5 MG/2.5 ML SOLUTION INHALATION (06:45)
--- NOTE | 2022-07-01 07:30 | PCM.PN.GU ---
Subjective Subjective doing well s/p radical prostatectomy home today with powell to leg bag. Objective Data Objective Data Vital Signs: Vital Signs Temp Pulse Resp BP Pulse Ox O2 Del Method O2 Flow Rate 98.9 F 95 18 101/75 93 Room Air 2 07/01/22 06:30 07/01/22 06:45 07/01/22 06:45 07/01/22 06:30 07/01/22 06:45 07/01/22 06:45 07/01/22 03:20 Oxygen Flow Rate (L/min) 2 Oxygen Delivery Method Room Air Weight: 80.399 kg Body Mass Index (BMI) 25.4 Intake & Output: Intake and Output for Last 24 Hours 06/29/22 06/30/22 07/01/22 23:59 23:59 23:59 Intake Total 4283 / 4283 672.92 / 672.92 Output Total 820 / 820 Balance 3463 / 3463 672.92 / 672.92 Lab / Micro Data Labs: Laboratory Results - last 24 hr 06/30/22 06:22: Blood Type O POSITIVE, Antibody Screen NEGATIVE
[2022-07-01] MEDS: Lactated Ringers 1,000 ML 125 ML IV (09:11)
[2022-07-01] MEDS: Docusate Sodium 100 MG Capsule 200 MG PO (09:12)
[2022-07-01] MEDS: Primidone 250 MG Tablet PO (09:12)
[2022-07-01] MEDS: FLU VACC QS2022-23(6MOS UP)/PF 60 MCG/0.5 ML SYRINGE IM (09:17)
--- NOTE | 2022-07-01 10:45 | NURSING ---
reviewed discharge instructions with patient & , voiced understanding, instructed & demonstrated on leg bag use voiced understanding
[2022-07-01 10:48] VITALS: BP 130/69; PULSE 96; RESP 16; TEMP 36.8; O2SAT 98
== END 2022-07-01 10:54 | disposition home or self-care (01) ==
LOC: SDC 15:59 → MS3 15:59
PROVIDERS: Admitting Provider Urology; PCP Internal Medicine; Referring Provider Urology; Visit Provider Urology
PROC: 0VT04ZZ Resection of Prostate, Percutaneous Endoscopic Approach (ICD-10-PCS; CPT 55866; principal; 2022-06-30 07:10)
DX: C61 Malignant neoplasm of prostate (principal); J44.9 Chronic obstructive pulmonary disease, unspecified; N20.0 Calculus of kidney; R05.3 Chronic cough; K21.9 Gastro-esophageal reflux disease without esophagitis
CPT/HCPCS: 55866; 38765; 00865; 86850; 86900; 86901; 88304; 88305; 88307; 88309; 88341; 88342; 94640; 94762; 96361; 96365; 96366; 96375; 96376; 99218; 99251; 99406; J7120; 90686; A4216; G0378; G0463; J0744; J2405

== ENCOUNTER → 2022-08-26 | Outpatient (CLI) | payer BC, SELFPAY ==
[2022-08-26 11:18] LABS: PSA,Total- Diagnostic < 0.01 ng/mL (0.0-4.0)
== END | disposition home or self-care (01) ==
LOC: LAB 09:42
PROVIDERS: PCP Internal Medicine; Referring Provider Urology; Visit Provider Urology
DX: C61 Malignant neoplasm of prostate (principal)
CPT/HCPCS: 36415; 84153

== ENCOUNTER → 2022-11-25 | Outpatient (CLI) | payer BC, SELFPAY ==
[2022-11-25 11:13] LABS: PSA,Total- Diagnostic < 0.01 ng/mL (0.0-4.0)
== END | disposition home or self-care (01) ==
LOC: LAB 09:26
PROVIDERS: PCP Internal Medicine; Referring Provider Registered Nurse; Visit Provider Registered Nurse
DX: C61 Malignant neoplasm of prostate (principal)
CPT/HCPCS: 36415; 84153

== ENCOUNTER → 2023-08-20 | Outpatient (CLI) | payer BC, SELFPAY ==
[2023-08-20 11:09] LABS: PSA,Total- Diagnostic < 0.01 ng/mL (0.0-4.0)
== END | disposition home or self-care (01) ==
LOC: LAB 09:27
PROVIDERS: PCP Internal Medicine; Referring Provider Urology; Visit Provider Urology
DX: C61 Malignant neoplasm of prostate (principal)
CPT/HCPCS: 36415; 84153

== ENCOUNTER → 2024-01-04 | Outpatient (CLI) | payer BC, SELFPAY ==
--- NOTE | 2024-01-04 08:33 | ART_ITS ---
Reason For Study: claudication Procedure A bilateral lower extremity continuous wave Doppler with analog waveform analysis,segmental pressures,and ankle brachial indexes without exercise. Left Segmental Pressures Left brachial= 164mmHg. Left posterior tibial artery = 174mmHg. Left dorsalis pedis artery = 157mmHg. Left digit = 143 mmHg. The left dorsalis pedis waveforms are triphasic. The left posterior tibial artery waveforms are triphasic. Right Segmental Pressures Right brachial= 165mmHg. Right posterior tibial artery = 174mmHg. Right dorsalis pedis artery = 171mmHg. Right digit = 160 mmHg. The right dorsalis pedis waveforms are triphasic. The right posterior tibial artery waveforms are triphasic. Indices The right ankle brachial index by the dorsalis pedis is 1.04. The right ankle brachial index by the posterior tibial artery is 1.05. The right digital-brachial index is .97. The left ankle brachial index by the dorsalis pedis is .95. The left ankle brachial index by the posterior tibial artery is 1.05. The left digital-brachial index is .87. VL/Lower Ext Art Exam w/o Exercis Interpretation Summary Right MONE 1.05, normal. TBI and Doppler/PVR waveforms of the right leg normal a t rest. Left MONE 1.05, normal. TBI and Doppler/PVR waveforms of the left leg normal at rest. Ordering Physician: José Miguel Sands Referring Physician: Marybeth Thomas M.D. Performed By: CHETAN [facility]
== END | disposition home or self-care (01) ==
PROVIDERS: PCP Internal Medicine; Referring Provider Psychiatry & Neurology Neurology; Visit Provider Psychiatry & Neurology Neurology
DX: I70.213 Atherosclerosis of native arteries of extremities with intermittent claudication, bilateral legs (principal)
CPT/HCPCS: 93923

== ENCOUNTER → 2024-03-12 | Outpatient (CLI) | payer BC, SELFPAY ==
[2024-03-12 11:19] LABS: PSA,Total- Diagnostic < 0.01 ng/mL (0.0-4.0)
== END | disposition home or self-care (01) ==
LOC: LAB 10:02
PROVIDERS: PCP Internal Medicine; Referring Provider Urology; Visit Provider Urology
DX: C61 Malignant neoplasm of prostate (principal)
CPT/HCPCS: 36415; 84153

== ENCOUNTER → 2024-09-10 | Outpatient (CLI) | payer BC, SELFPAY ==
[2024-09-10 11:09] LABS: PSA,Total- Diagnostic < 0.01 ng/mL (0.0-4.0)
== END | disposition home or self-care (01) ==
PROVIDERS: PCP Internal Medicine; Referring Provider Urology; Visit Provider Urology
DX: C61 Malignant neoplasm of prostate (principal)
CPT/HCPCS: 36415; 84153

== ENCOUNTER → 2025-03-11 | Outpatient (CLI) | payer BC, SELFPAY ==
[2025-03-11 12:05] LABS: PSA,Total- Diagnostic < 0.02 ng/mL (0.00-4.00)
== END | disposition home or self-care (01) ==
LOC: LAB 10:20
PROVIDERS: PCP Internal Medicine; Referring Provider Nurse Practitioner; Visit Provider Nurse Practitioner
DX: C61 Malignant neoplasm of prostate (principal)
CPT/HCPCS: 36415; 84153

== ENCOUNTER 2025-06-28 17:09 | Inpatient (IN) | payer BC, SELFPAY ==
[2025-06-28] VITALS (18 sets, daily range): BP systolic 99–164; BP diastolic 60–151; PULSE 81–111; RESP 16–20; TEMP 36.1–36.6; O2SAT 95–100; BMI 23.4; BMI 22.1
--- NOTE | 2025-06-28 17:33 | EKG12_ITS ---
Test Reason : POST NITRO Blood Pressure : */* mmHG Vent. Rate : 112 BPM Atrial Rate : 112 BPM P-R Int : 142 ms QRS Dur : 80 ms QT Int : 346 ms P-R-T Axes : 46 6 112 degrees QTcB Int : [address] & T wave abnormality, consider anterolateral ischemia Abnormal ECG Confirmed by NARESH GABRIEL, DILIP ([id number]), assignment editor ADRIAN TRUONG ([id number]) on 07/01/2025 6:07:19 AM Referred By: Confirmed By: DILIP INFANTE MD
--- NOTE | 2025-06-28 17:34 | ED.VIS.CHEST ---
HPI History of Present Illness Chief Complaint: Chest Pain Informant: patient and spouse/S.O. Narrative Narrative: 70-year-old male presenting to the emergency room with intermittent chest pain. Patient states for about the past week he has had an intermittent burning sensation across to his chest. States it hurts significantly worse than indigestion should. He states that he gets out of breath with simple walking across the room and his symptoms reappear. This can happen at rest as well. He notes no associated vomiting. He notes no association with food. He notes a family history of coronary artery disease in his father and his sister who both in after the age of 65. He denies any known heart issues. [facility] Medical History Loss of hearing Wears glasses Prostate disease Injury of head and neck Tremor Vertigo Gastric reflux Smoker COPD (chronic obstructive pulmonary disease) Shortness of breath on exertion Chronic cough Leg cramps History of pain when walking History of stress test Cancer Eczema Vitamin D deficiency Hypercholesterolemia History of kidney stones RUQ pain Gallbladder polyp Home Medications ?Medication ?Instructions ?Recorded ?Last Taken ?Type fluticasone fur. 200 mcg-umeclid 1 inh inhalation DAILY 06/28/25 06/25/25 History 62.5 mcg-vilant 25 mcg inhalat.powder (Trelegy Ellipta) propranolol 60 mg tablet 60 mg PO BID 06/28/25 Unknown History Allergy/AdvReac Type Severity Reaction Status Date / Time hydrocodone bitartrate (From AdvReac Other Verified 06/28/25 17:11 Vicodin) Family History Mother Breast cancer Father Heart disease Daughter Thyroid disorder Surgical History Hx of colonoscopy history of surgery for kidney stones Social History Smoking Status: Current every day smoker tobacco type: cigarettes quit status: considering quitting alcohol intake: never substance use type: does not use ROS ROS ED Constitutional Constitutional ED: Denies chills or weight loss Eyes Eyes: Denies change in vision or diplopia ENT ENT ED: Denies ear pain, rhinorrhea or sore throat Cardiovascular Cardiovascular: Reports as per HPI and chest pain; Denies orthopnea, palpitations or racing heartbeat Respiratory/Chest Respiratory/Chest: Reports dyspnea on exertion; Denies cough, dyspnea or orthopnea Gastrointestinal Gastrointestinal: Denies abdominal pain, diarrhea, nausea or vomiting Genitourinary Genitourinary ED: Denies dysuria, hematuria or urinary frequency Musculoskeletal Musculoskeletal: Denies arthralgias or myalgias Integumentary Denies abscess or rash Neurologic Neurologic: Denies headache(s) or weakness Psychiatric Psychiatric: Denies anxiety, depression, suicidal ideation or suicidal thoughts Endocrine Endocrinology: Denies polydipsia, polyphagia or polyuria Allergic/Immunologic Allergic/Immunologic ED: Denies mouth swelling, tongue swelling or urticaria EXAM Physical Exam Const Vital Signs: 06/28/25 17:10 06/28/25 17:33 06/28/25 17:45 Temperature 96.9 F L Temperature Source Temporal Pulse Rate 93 Respiratory Rate 18 Blood Pressure 115/60 154/101 H Blood Pressure Mean 78 118 Pulse Ox 98 98 Oxygen Delivery Method Room Air Room Air 06/28/25 18:09 06/28/25 19:00 06/28/25 19:11 Temperature 97.9 F Temperature Source Pulse Rate 97 86 82 Respiratory Rate 18 18 16 Blood Pressure 140/116 H 131/78 H 131/78 H Blood Pressure Mean 124 95 95 Pulse Ox 97 97 95 Oxygen Delivery Method Room Air Room Air Positive well nourished and well developed General Appearance ED: well developed and NAD HEENT Reports normocephalic, head/scalp atraumatic and moist mucous membranes Eyes PERRL and EOMs intact bilaterally Neck no lymphadenopathy, supple and no JVD Resp normal respiratory effort and clear to auscultation bilaterally Cardio regular rate, regular rhythm and no murmurs GI normal to inspection, nondistended, normoactive bowel sounds and non-tender Palpation: soft Back/Spine no CVA tenderness and normal ROM Extremity normal to inspection General Extremety ED: Negative for edema General Extremity: Negative for edema Neuro oriented x3 and CN's II-XII intact bilaterally Sensorium / Orientation: alert Motor Exam: strength 5/5 throughout Psych mental status grossly normal Mood & Affect: Negative for depressed or tearful Skin no rashes or lesions noted and no wounds Heart Score History: Highly Suspicious ECG: Significant ST-Depression Age: >/= 65 years Risk Factors: 1 or 2 Risk Factors Troponin: >/=3 x Normal Limit Score: 9 MDM MDM MDM Narrative Medical decision making narrative: Differential diagnosis includes but not limited to acute coronary syndrome unstable angina lecture light abnormalities NSTEMI STEMI aortic dissection aneurysm EKG shows a sinus rhythm at a rate of 91. There are concerning ST segments for depression. These do appear new since May 2022. Initial troponin is 236. White count 14.7 hemoglobin 16.6. Creatinine 1.77 BUN of 23 normal potassium. My independent interpretation of the chest x-ray is no acute process. Patient received nitroglycerin and he became pain-free. Subsequent repeat EKG shows improvement of the ST segments still with some depression in V3 and V4. I spoke with on-call cardiology. Patient will be started on a heparin drip as well as nitroglycerin drip. He will be kept n.p.o. after midnight placed in the intensive care unit. History & Record Review Discussion w/independent historian: Patient and Significant other Lab Data Attestation: I reviewed the patient's lab results. Labs: Laboratory Results - last 24 hr 06/28/25 17:27 WBC 14.7 H RBC 5.66 Hgb 16.6 H Hct 50.9 MCV 89.9 MCH 29.3 MCHC 32.6 RDW Std Deviation 42.2 RDW Coeff of Adele 12.9 Plt Count 213 MPV 11.9 Immature Gran % (Auto) 1.600 H Neut % (Auto) 69.4 Lymph % (Auto) 18.0 L [place] % (Auto) 7.1 Eos % (Auto) 2.5 Baso % (Auto) 1.4 H Absolute Neuts (auto) 10.2 H Absolute Lymphs (auto) 2.65 Nucleated RBC % 0 PT 13.4 INR 1.0 APTT 30.5 Sodium 141 Potassium 3.8 Chloride 101 Carbon Dioxide 25.7 Anion Gap 15 BUN 23 H Creatinine 1.77 H Estim Creat Clear Calc 39.52 L Est GFR (MDRD) Non-Af 41 L BUN/Creatinine Ratio 12.7 Glucose 153 H Calcium 9.7 Troponin T High Sens 236 H* Radiography Diagnostic Testing: Clinical Impression(s) from Imaging Studies Chest X-Ray 06/28/25 18:00 IMPRESSION: No Acute Findings. Reading Location: [facility] EKG Initial EKG: Attestation: I personally reviewed and interpreted this EKG as follows: Interpretation: Sinus Rhythm and S-T Depression Comments: Ventricular rate of 91 bpm Follow-up EKG: Attestation: I personally reviewed and interpreted this EKG as follows: Comments: Sinus rhythm ventricular rate of [address] segments Management Discussion w/another healthcare provider: Hospitalist and [employer] (Dr Bernardo) Critical Care Time Critical Care Time: Yes Critical care time (excluding procedures): 30-74 minutes (35 min), Including time spent:, Discussing w/Patient &/or Family/[employer], Discussing w/Consultants, Arranging Admission or Transfer and Performing Direct Patient Care at Bedside Discharge Plan Dx/Rx/DC Orders Clinical Impression: Unstable angina, Elevated troponin Disposition Disposition: Acute Care Hospital [facility]
[2025-06-28] MEDS: Nitroglycerin SL (ED/IMG/CATH) 0.4 MG TABLET SL (17:40)
--- NOTE | 2025-06-28 17:45 | EKG12_ITS ---
Test Reason : Blood Pressure : */* mmHG Vent. Rate : 91 BPM Atrial Rate : 91 BPM P-R Int : 142 ms QRS Dur : 84 ms QT Int : 340 ms P-R-T Axes : 16 4 172 degrees QTcB Int : 418 ms Normal sinus rhythm Septal infarct , age undetermined Marked ST abnormality, possible inferior subendocardial injury Abnormal ECG Confirmed by NARESH GABRIEL, DILIP ([id number]), electronic news gathering editor ADRIAN TRUONG ([id number]) on 07/01/2025 6:07:05 AM Referred By: Confirmed By: DILIP INFANTE MD
[2025-06-28 17:51] LABS: Hematocrit 50.9 % (40-54); Hemoglobin 16.6 g/dL (13.0-16.5); Immature Granulocytes Count 0.230 X10^3/uL (0.0-0.0); Mean Corp Hgb Conc 32.6 g/dL (32-36); Mean Corpuscular Volume 89.9 fL (80-94); Mean Platelet Vol. 11.9 fl (6.2-12.0); NRBC Flagged by Analyzer 0 % (0-5); Platelet Count 213 K/mm3 (150-450); RBC Distribution Width CV 12.9 % (11.6-14.6); RBC Distribution Width SD 42.2 fl (35.1-43.9); Red Blood Count 5.66 M/mm3 (4.6-6.2); White Blood Count 14.7 K/mm3 (4.4-11.0)
--- NOTE | 2025-06-28 18:00 | RAD_ITS ---
PROCEDURE: CHEST 1 VIEW (PORTABLE) 06/28/2025 REASON FOR EXAM: CHEST PAIN. Burning sensation in chest for 1 week. No relief with Tums. TECHNIQUE: Frontal view of the chest. COMPARISON: 12/14/2018 FINDINGS: LUNGS AND PLEURA: The lungs are clear. No pleural effusion or pneumothorax. HEART AND MEDIASTINUM: The heart size and mediastinal contours are normal. BONES: No acute osseous abnormality. RAD/Chest 1 View (Portable) IMPRESSION: No Acute Findings. Reading Location: [id number]
--- OUTSIDE RECORDS SUMMARY | 2025-06-28 18:10 | XMS RPT_ITS | CCD ---
Author Organization [facility] ion [facility] Care Team Providers Care Part Time Receptionist Name Role Phone MarthaShirinMarybeth Unavailable Kamilah Tesfaye Unavailable Unavailab le [place] IIIDarius P Unavailable Selene Arriola Unavailable Darius Shannon Unavailable Selene Lopez Unavailable Patrick Dunn Unavailable Pilar Del Angel Unavailable Unavailable Marilynn Wallace Unavailable Unavailable Clayton, Soraya Unavailable Unavailable Manchak, Pastora Unavailable Unavailable Unavailable Unavailable Pilar Molina Unavailable Unavailable Gravius, Stacy Unavailable Unavailable Unavailable Unavailable Kevin Carpio Unavailable Unavailable Lizzy, Yazmin Unavailable Unavailable Gravius, Stacy Unavailable Unavailable Kevin Carpio Unavailable Unavailable Marilynn Wallace Unavailable Unavailable Pilar Molina Unavailable Unavailable Manchak, Pastora Unavailable Unavailable Unavailable Unavailable Kevin Barlow Unavailable Unavailable Kathleen III, Darius P Unavailable Amber Juarez Unavailable Unavailable PeabodyIII, Darius P Unavailable Marybeth Thomas DO Unavailable Kamilah Tesfaye Unavailable Unavailab le Kathleenyuko SIMON MD , Darius Hudson Unavailable Selene Arriola MD Unavailable Darius Shannon MD Unavailable [facility], Selene Giron Unavailable Mona GABRIEL, Patrick Kuo Unavailable Larry ESCOTON, Amber Unavailable Unavailable Cain GARCIA, Kevin Unavailable Unavailable Marilynn Wallace RN Unavailable Unavailable Gravius TUBE WRAPPER, Stacy Unavailable Unavailable Manchak TUBE WRAPPER, Pastora Unavailable Unavailable Unavailable Unavailable Marybeth Thomas Primary Care Provider Marybeth Thomas DO Unavailable Kamilah Tesfaye Unavailable Unavailab patricia Wang III, MD , Darius Hudson Unavailable Krishan REAGAN MD, Selene Giron Unavailable Mirtha GABRIEL, Darius Hudson Unavailable [facility], Selene Giron Unavailable Patrick Dunn MD Unavailable Slarb STITCH SEPARATOR, Breana Unavailable Unavailable Cain GARCIA, Kevin Unavailable Unavailable Gravius TUBE WRAPPER, Stacy Unavailable Unavailable Marilynn Wallace RN Unavailable Unavailable Cross STITCH SEPARATOR, Amber Unavailable Unavailable Manchak TUBE WRAPPER, Pastora Unavailable Unavailable Unavailable Unavailable Marybeth Thomas DO Unavailable [place] STITCH SEPARATOR, Leann Unavailable Unavailable [place] TUBE WRAPPER, Kayela Unavailable Unavailable Dr. Marybeth Thomas Primary Care Provider Dr. Carlos Alberto Jackson Attending Provider Dr. Dean Castillo Referring Provider Marybeth Thomas DO Attending Unavailable Fast DO, Beryl A Referring Unavailable Marybeth Thomas DO Consulting Unavailable Marybeth Thomas Primary Care Provider [phone] Marybeth Thomas DO Primary Care Provider Irma Florez MA Unavailable Unavailable Francesca STITCH SEPARATOR, Jose Unavailable Unavailable Dr. Kwabena Paz Unavailable Dr. Marybeth Thomas DO Primary Care Provider Gayle Ravi Attending Provider [place], Gayle Referring Provider [phone] Dean Castillo Attending Unavailable Dean Castillo Referring Unavailable Marybeth Thomas Primary Care Unavailable [place], Gayle Attending Unavailable [place], Gayle Referring Unavailable Marybeth Thomas Primary Care Unavailable Allergies Allergy Classification Reported Allergen(s) Allergy Type Date of Onset Reaction(s) Facility Acetaminophen / HYDROcodone (8 sources) Acetaminophen / HYDROcodone; Translations: [Vicodin *ANALGESICS - OPIOID*] Drug Allergy 0 [facility] Work Phone: Comment on above: severe Nausea (20 sources) Acetaminophen / HYDROcodone; Translations: [Vicodin *ANALGESICS - OPIOID*] Drug Allergy [facility] Work Phone: Comment on above: severe Nausea (9 sources) HYDROcodone; Translations: [hydrocodone bitartrate] Drug Allergy 0 [facility] (19 sources) Acetaminophen / HYDROcodone Drug Allergy 3 [facility] (18 sources) Serotonin Drug Allergy 3 [facility] NEGATED: Highlighted row has been ruled out! (1 source) Allergy to drug (finding) 3 [facility]; [facility] Work Phone: NEGATED: Highlighted row has been ruled out! (1 source) Allergy to drug (finding) 3 [facility]; [facility] Work Phone: NEGATED: Highlighted row has been ruled out! (1 source) Allergy to drug (finding) 3 [facility]; [facility] Work Phone: NEGATED: Highlighted row has been ruled out! (1 source) Allergy to drug (finding) 3 [facility]; [facility] Work Phone: NEGATED: Highlighted row has been ruled out! (1 source) Allergy to drug (finding) 3 [facility]; [facility] Work Phone: NEGATED: Highlighted row has been ruled out! (1 source) Allergy to drug (finding) 3 [facility]; [facility] Work Phone: NEGATED: Highlighted row has been ruled out! (1 source) Allergy to drug (finding) 3 [facility]; [facility] Work Phone: NEGATED: Highlighted row has been ruled out! (1 source) Allergy to drug (finding) 3 [facility]; [facility] Work Phone: NEGATED: Highlighted row has been ruled out! (1 source) Allergy to drug (finding) 3 [facility]; [facility] Work Phone: NEGATED: Highlighted row has been ruled out! (1 source) Allergy to drug (finding) 3 [facility]; [facility] Work Phone: NEGATED: Highlighted row has been ruled out! (1 source) Allergy to drug (finding) 3 [facility]; [facility] Work Phone: NEGATED: Highlighted row has been ruled out! (1 source) Allergy to drug (finding) [facility] Work Phone: NEGATED: Highlighted row has been ruled out! (1 source) Allergy to drug (finding) [facility] Work Phone: NEGATED: Highlighted row has been ruled out! (1 source) Allergy to drug (finding) 3 [facility]; [facility] Work Phone: NEGATED: Highlighted row has been ruled out! (1 source) Allergy to drug (finding) [facility]; [facility] Work Phone: NEGATED: Highlighted row has been ruled out! (1 source) Allergy to drug (finding) 3 [facility]; [facility] Work Phone: NEGATED: Highlighted row has been ruled out! (1 source) Allergy to drug (finding) 3 [facility]; [facility] Work Phone: NEGATED: Highlighted row has been ruled out! (1 source) Allergy to drug (finding) 3 [facility]; [facility] Work Phone: NEGATED: Highlighted row has been ruled out! (1 source) Allergy to drug (finding) 3 [facility]; [facility] Work Phone: NEGATED: Highlighted row has been ruled out! (1 source) Allergy to drug (finding) 3 [facility]; [facility] Work Phone: NEGATED: Highlighted row has been ruled out! (1 source) Allergy to drug (finding) 3 [facility]; [facility] Work Phone: NEGATED: Highlighted row has been ruled out! (1 source) Allergy to drug (finding) 3 [facility]; [facility] Work Phone: NEGATED: Highlighted row has been ruled out! (1 source) Allergy to drug (finding) 3 [facility]; [facility] Work Phone: NEGATED: Highlighted row has been ruled out! (1 source) Allergy to drug (finding) 3 [facility]; [facility] Work Phone: NEGATED: Highlighted row has been ruled out! (1 source) Allergy to drug (finding) 3 [facility]; [facility] Work Phone: NEGATED: Highlighted row has been ruled out! (1 source) Allergy to drug (finding) 3 [facility]; [facility] Work Phone: NEGATED: Highlighted row has been ruled out! (1 source) Allergy to drug (finding) 3 [facility]; [facility] Work Phone: Medications Current Medications Medication Drug Class(es) Dates Sig (Normalized) Sig (Original) acetaminophen 325 mg / oxyCODONE hydrochloride 5 mg oral tablet (15 sources) Opioid Agonist Start: 06-30-2022 take 1 tablet by mouth every six hours as needed for pain Oxycodone-Acetami nophen 5-325 mg tablet Active 1 {tbl} PO EVERY 6 HOURS as needed for pain 14 7 June 30, 2022 Malignant neoplasm of prostate Malignant neoplasm of prostate Start: 06-30-2022 take 1 tablet by shyam th every six hours Oxycodone-Acetaminophen Active 1 TABLET PO EVERY 6 HOURS 14 June 30, 2022 Start: 03-22-2014 End: 11-24-2017 Oxycodone-Acetaminophen 1 TA BLET tablet Discontinued 1 {tbl} PO EVERY 4 HOURS NEEDED as needed for Pain 14 March 22, 2014 12:00am November 24, 2017 8:11am Start: 03-22-2014 End: 11-24-2017 take 1 tablet by mouth every four hours as needed Oxycodone-Acetaminophen Discontinued 1 TABLET PO EVERY 4 HOURS NEEDED March 21, 2014 11:00pm November 24, 2017 7:11am carbidopa 25 mg / levodopa 100 mg oral tablet (20 sources) Aromatic Amino Acid Decarboxylation Inhibitor, Aromatic Amino Acid Start: 11-20-2020 End: 12-20-2020 take 1 tablet by mouth twice daily carbidopa-levodopa (SINEMET) 25-100 MG per tablet Indications: Spasmodic torticollis , Dystonic tremor Take 1 tablet by mouth 2 times daily 60 tablet 3 11/20/2020 12/20/2020 Active Carbidopa-Levodo pa 25-100 MG Oral Tablet (25-100 MG) Active Comments: Comment on above: cholecalciferol 0.025 mg oral tablet (19 sources) Vitamin D take 1 tablet by mouth twice daily cholecalciferol (Vitamin D-3) 25 MCG (1000 UT) tablet Vitamin D3 25 mcg (1,000 unit) tablet take 1 by Oral route 2 times every day Active ciprofloxacin 500 mg oral tablet (9 sources) Quinolone Antimicrobial Start: take 1 tablet by mouth twice daily Ciprofloxacin Hcl (Cipro) 500 mg tablet Active 500 mg PO TWICE A DAY 20 June 30, 2022 1:00am Start: 09-07-2019 take 500 mg by mouth twice daily Ciprofloxacin Hcl Active 500 MG PO TWICE A DAY September 07, 2019 12:00am docusate sodium 100 mg oral capsule (5 sources) Start: 06-30-2022 take 1 capsule by mouth twice daily Docusate Sodium (Colace) 100 mg capsule Active 100 mg PO TWICE A DAY 20 June 30, 2022 1:00am Fluticasone-Umeclidin- Vilant (Trelegy Ellipta) 200-62.5-25 MCG/ACT aerosol powder (18 sources) Start: 01-06-2023 Fluticasone-Um eclidin- Vilant (Trelegy Ellipta) 200-62.5-25 MCG/ACT aerosol powder Inhale. 01/06/2023 Active Start: 01-06-2023 Fluticasone-Um eclidin-Vilant (Trelegy Ellipta) 200-62.5-25 MCG/ACT aerosol powder Inhale. 0 01/06/2023 Active tiZANidine 2 mg oral tablet (1 source) Central alpha-2 Adrenergic Agonist Start: 11-20-2020 End: 12-20-2020 take 1 tablet by mouth every eight hours as needed for pain tiZANidine (ZANAFLEX) 2 MG tablet Take 1 tablet by mouth every 8 hours as needed (neck pain) 45 tablet 2 11/20/2020 12/20/2020 Active Completed/Discontinued Medications Medication Drug Class(es) Dates Sig (Normalized) Sig (Original) 5-Hydroxytryptopha n 200 MG tablet (2 sources) Start: 12-31-2022 End: 03-22-2023 take 1 tablet by mouth at dinner 5-Hydroxytryptophan 200 MG tablet Take 1 tablet by mouth with evening meal. 30 tablet 11 12/31/2022 03/22/2023 Discontinued Start: 12-31-2022 End: 12-31-2023 take 1 tablet by mouth at dinner 5-Hydroxytryptophan 200 MG tablet Take 1 tablet by mouth with evening meal. 30 tablet 11 12/31/2022 12/31/2023 Active acetaminophen 325 mg / HYDROcodone bitartrate 5 mg oral tablet (20 sources) Opioid Agonist Start: 09-07-2019 End: 09-12-2019 Hydrocodone-Acetaminophen 1 EACH tablet Discontinued 1 NMA PO EVERY 4 HOURS NEEDED as needed for Pain Score 1-5/10 14 5 0 September 07, 2019 September 11, 2019 1:00am September 12, 2019 1:08am Personal history of urinary calculi Start: 09-07-2019 End: 09-12-2019 Hydrocodone-Acetaminophen Di scontinued 1 EACH PO EVERY 4 HOURS NEEDED 14 September 07, 2019 September 12, 2019 12:08am Start: 05-26-2011 End: 05-26-2011 Start: 05-26-2011 End: 05-26-2011 take 7.5-750 mg by mouth every four to six hours as needed VICODIN ES, 7.5-750MG (Oral Tablet) 1 (o ne) Tablet q4-6 hr prn for 0 days Quantity: 30 {Tablet} Refills: 0 Ordered: 26-May-2011 Mast Minoo ACE Start : 26-May-2011 End : 26-May-2011 Discontinued amoxicillin 875 mg / clavula nancy 125 mg oral tablet (20 sources) Penicillin-class Antibacterial Start: 10-21-2021 End: 11-04-2021 Start: 12-14-2018 End: 12-28-2018 Start: 12-14-2018 End: 12-28-2018 take 1 tablet by mouth twice daily Augmentin 875-125 MG Oral Tablet 1 Tablet bid for 14 days Quantity: 28 {Tablet} Refills: 0 Ordered: 14-Dec-2018 Marybeth Thomas DO, DO, Kathleen Start : 14-Dec-2018 End : 28-Dec-2018 Inactive Start: 07-14-2012 End: 07-28-2012 take 1 tablet by mouth twice daily AUGMENTIN, 875-125MG (Oral Tablet) 1 Tablet bid for 14 days Quantity: 28 {Tablet} Refills: 0 Ordered: 14-Jul-2012 Kaylee ZAPATA Ute Start : 14-Jul-2012 End : 28-Jul-2012 Inactive atorvastatin 40 mg oral tabl et (20 sources) HMG-CoA Reductase Inhibitor Start: 10-02-2021 End: 01-31-2023 Start: 08-02-2019 End: 01-28-2020 Start: 03-27-2019 take 1 tablet by mouth once da quita Lipitor 40 MG Oral Tablet 1 (one) Tablet daily for 90 days Quantity: 90 {Tablet} Refills: 1 Ordered: 27-Mar-2019 Marybeth Thomas DO, DO, Kathleen Start : 27-Mar-2019 Active Comments: Mail order. Start: 11-30-2018 take 1 tablet by mouth once da quita Lipitor 40 MG Oral Tablet 1 (one) Tablet daily for 90 days Quantity: 90 {Tablet} Refills: 1 Ordered: 30-Nov-2018 Marilynn Wallace LPN Start : 30-Nov-2018 Active Comment on above: Mail order. ZITHROMAX Z-PRADIP, 250MG (Oral Tablet) (20 sources) Macrolide Antimicrobial Start: 05-26-2011 End: 11-22-2011 Start: 05-26-2011 End: 11-22-2011 ZITHROMAX Z-PRADIP, 250MG (Oral Tablet) 2 (two) Tablet today then 1 qd for 4 days for 0 days Quantity: 6 {Tablet} Refills: 0 Ordered: 22-Nov-2011 Nelly Forde Start : 26-May-2011 End : 22-Nov-2011 Inactive busPIRone hydrochloride 15 m g oral tablet (20 sources) Start: 11-22-2011 End: 07-14-2012 citalopram 20 mg oral tablet (20 sources) Serotonin Reuptake Inhibitor Start: 05-26-2011 End: 05-26-2011 fluticasone propionate 0.05 mg/actuat metered dose nasal spray (20 sources) Corticosteroid Start: 05-27-2011 End: 01-01-2013 Start: 05-27-2011 End: 01-01-2013 FLONASE, 50MCG/ACT (Nasal Felix spension) 2 (two) Suspension each nostril qd for 0 days Quantity: 3 {Suspension} Refills: 3 Ordered: 01-Jan-2013 Nelly Forde Start : 27-May-2011 End : 01-Jan-2013 Inactive gabapentin 300 mg oral capsu le (20 sources) Anti-epileptic Agent Start: 08-25-2015 End: 10-05-2017 Comment on above: Dr. Tesfaye hydrocortisone valerate 2 mg /ml topical cream (20 sources) Corticosteroid End: 05-06-2008 End: 05-06-2008 WESTCORT, 0.2% (External Cre am) 1 BID for 0 days Refills: 0 Ordered: 06-May-2008 Melisa Mckeon End : 06-May-2008 Discontinued ketorolac tromethamine 10 mg oral tablet (20 sources) Nonsteroidal Anti-inflammatory Drug, Cyclooxygenase Inhibitor Start: 10-23-2012 End: 10-25-2012 levoFLOXacin 500 mg oral tablet (20 sources) Quinolone Antimicrobial Start: 12-01-2020 End: 01-19-2021 Start: 10-01-2014 End: 08-25-2015 meloxicam 15 mg oral tablet (20 sources) Nonsteroidal Anti-inflammatory Drug Start: 10-21-2021 End: 01-31-2023 Start: 12-27-2019 Comment on above: Medication taken as needed. metaxalone 800 mg oral tablet (20 sources) Start: 05-26-20 11 End: 05-26-20 11 nitrofurantoin, macrocrystals 25 mg / nitrofurantoin, monohydrate 75 mg oral capsule (20 sources) Nitrofuran Antibacterial Start: 11-15-19 18 End: 11-22-19 18 omeprazole 20 mg delayed release oral capsule (20 sources) Proton Pump Inhibitor Start: 10-09-19 14 End: 11-25-19 18 take 1 capsule by mouth once daily Omeprazole 20 MG capsule Discontinued 20 mg PO DAILY March 15, 2014 12:00am November 24, 2017 8:12am End: 05-06-2008 primidone 50 mg oral tablet (20 sources) Anti-epileptic Agent Start: 12-10-2022 End: 12-31-2022 take 1 tablet by mouth once as needed primidone (Mysoline) 50 MG tablet TAKE 1 TABLET BY MOUTH EVERY AFTERNOON NEEDED 14 tablet 0 12/10/2022 12/31/2022 Discontinued Start: 11-20-2020 End: 11-11-2022 take 1 tablet by mouth once as needed primidone (Mysoline) 50 MG tablet TAKE 1 TABLET BY MOUTH EVERY AFTERNOON NEEDED (IN ADDITION TO 250 MG TAB TWICE DAILY) 30 tablet 0 08/20/2022 09/20/2022 Discontinued Start: 09-06-2019 take 1 tablet by shyam twice daily Primidone 250 MG tablet Active 250 mg PO TWICE A DAY September 06, 2019 1:00am TREMORS take 2 tablets by mo [facility] twice daily Primidone 50 MG Oral Tablet 2 bid (50 MG) Active Comments: Comment on above: propranolol hydrochloride 60 mg oral tablet (20 sources) beta-Adrenergic Jacinto Start: 3 End: 5 take 1 tablet by mouth twice daily propranolol (Inderal) 60 MG tablet Indications: Dystonic tremor Take 1 tablet (60 mg) by mouth 2 times daily. 180 tablet 3 03/16/2024 05/29/2025 Discontinued Start: 03-22-2023 End: 03-21-2024 take 1 tablet by mouth twice daily propranolol (Inderal) 40 MG tablet Indications: Tremor TAKE 1 TABLET BY MOUTH TWICE A DAY 180 tablet 1 05/16/2023 09/08/2023 Discontinued Start: 12-31-2022 End: 12-31-2023 take 1 tablet by mouth twice daily propranolol (Inderal) 20 MG tablet Take 1 tablet (20 mg) by mouth 2 times daily. 60 tablet 11 12/31/2022 03/22/2023 Discontinued (Reorder) Start: 08-25-2015 End: 10-26-2018 Comment on above: wicho simvastatin 80 mg oral table t (20 sources) HMG-CoA Reductase Inhibitor Start: 11-30-2018 End: 11-30-2018 Start: 10-26-2018 take 1 tablet by shyam th once daily Zocor 40 MG Oral Tablet 1 (one) Tablet daily for 90 days Quantity: 90 {Tablet} Refills: 1 Ordered: 26-Oct-2018 Marybeth Thomas DO, DO, Kathleen Start : 26-Oct-2018 Active Start: 10-12-2018 take 1 tablet by shyam th once daily Zocor 40 MG Oral Tablet 1 (one) Tablet daily for 0 days Quantity: 30 {Tablet} Refills: 5 Ordered: 12-Oct-2018 Marybeth Thomas DO, DO, Kathleen Start : 12-Oct-2018 Active Start: 03-15-2014 End: 11-24-2017 take 1 tablet by mouth at bedtime Simvastatin 40 MG tablet Discontinued 40 mg PO AT BEDTIME March 15, 2014 12:00am November 24, 2017 8:12am Comment on above: Mail order. Spiriva Respimat 2.5 MCG/ACT Inhalation Aerosol Solution (9 sources) Start: 10-01-19 20 End: 12-27-19 take 1 puff(s) by inhalation once daily Spiriva Respimat 2.5 MCG/ACT Inhalation Aerosol Solution 1 (one) Puff qd for 0 days Quantity: 1 {Inhaler} Refills: 5 Ordered: 27-Dec-2019 Marilynn Wallace RN Start : 01-Oct-2019 End : 27-Dec-2019 Inactive tetrabenazine 12.5 mg oral tablet (20 sources) Vesicular Monoamine Transporter 2 Inhibitor Start: 10-08-19 End: 12-08-19 take 1 tablet by mouth once daily tetrabenazine (Xenazine) 12.5 MG tablet Indications: Abnormal involuntary movements , Tic disorder Take 1 tablet (12.5 mg) by mouth daily. Do not start before October 08, 2023. 90 tablet 2 10/08/2023 12/08/2023 Discontinued Start: 10-08-2023 End: 09-16-2023 take 1 tablet by mouth once daily tetrabenazine (Xenazine) 12.5 MG tablet Indications: Spasmodic torticollis , Abnormal involuntary movements Take 1 tablet (12.5 mg) by mouth daily. Do not start before October 08, 2023. 90 tablet 2 10/08/2023 09/16/2023 Discontinued (Reorder) Start: 10-08-2023 End: 01-06-2024 take 1 tablet by mouth once daily tetrabenazine (Xenazine) 12.5 MG tablet Indications: Abnormal involuntary movements , Tic disorder Take 1 tablet (12.5 mg) by mouth daily. Do not start before October 08, 2023. 90 tablet 2 10/08/2023 01/06/2024 Active Start: 10-08-2023 End: 09-16-2023 take 1 tablet by mouth once daily tetrabenazine (Xenazine) 12.5 MG tablet Indications: Spasmodic torticollis , Abnormal involuntary movements Take 1 tablet (12.5 mg) by mouth daily. Do not start before October 08, 2023. 90 tablet 2 10/08/2023 09/16/2023 Discontinued (Reorder) Start: 10-08-2023 End: 01-06-2024 take 1 tablet by mouth once daily tetrabenazine (Xenazine) 12.5 MG tablet Indications: Abnormal involuntary movements , Tic disorder Take 1 tablet (12.5 mg) by mouth daily. Do not start before October 08, 2023. 90 tablet 2 10/08/2023 01/06/2024 Active Start: 10-08-2023 End: 09-16-2023 take 1 tablet by mouth once daily tetrabenazine (Xenazine) 12.5 MG tablet Indications: Spasmodic torticollis , Abnormal involuntary movements Take 1 tablet (12.5 mg) by mouth daily. Do not start before October 08, 2023. 90 tablet 2 10/08/2023 09/16/2023 Discontinued (Reorder) Start: 10-08-2023 End: 09-16-2023 take 1 tablet by mouth once daily tetrabenazine (Xenazine) 12.5 MG tablet Indications: Spasmodic torticollis , Abnormal involuntary movements Take 1 tablet (12.5 mg) by mouth daily. Do not start before October 08, 2023. 90 tablet 2 10/08/2023 09/16/2023 Discontinued (Reorder) Start: 09-08-2023 End: 01-06-2024 take 1 tablet by mouth once daily in the evening tetrabenazine (Xenazine) 12.5 MG tablet Indications: Abnormal involuntary movements , Tic disorder Take 1 tablet (12.5 mg) by mouth every evening. 30 tablet 0 09/16/2023 12/08/2023 Discontinued 60 actuat tiotropium 0.0025 mg/actuat inhalation spray (20 sources) Anticholinergic Start: 01-06-2023 End: 01-06-2023 Start: 06-15-2022 take 2.5 ug by inhal ation once daily Tiotropium [place] (Spiriva Respimat) 2.5 mcg/actuation Mist Active 1 NMA INHALATION DAILY June 15, 2022 1:00am Start: 06-15-2022 take 1 puff(s) by in halation once daily Tiotropium [place] (Spiriva Respimat) 2.5 mcg/actuation Mist Active 1 PUFF INHALATION DAILY June 15, 2022 12:00am Start: 02-28-2022 take 1 puff(s) by mo uth once daily Spiriva Respimat 2.5 MCG/ACT inhaler TAKE 1 PUFF BY MOUTH EVERY DAY 02/28/2022 Active Start: 01-30-2022 Start: 01-30-2022 Start: 01-30-2022 Start: 10-01-2019 End: 12-27-2019 Start: 10-01-2019 End: 12-27-2019 Start: 10-01-2019 End: 12-27-2019 take 1 puff(s) by inhalation once daily Spiriva Respimat 2.5 MCG/ACT Inhalation Aerosol Solution 1 (one) Puff qd for 0 days Quantity: 1 {Inhaler} Refills: 5 Ordered: 27-Dec-2019 Marilynn Wallace RN Start : 01-Oct-2019 End : 27-Dec-2019 Inactive Start: 02-02-2019 End: 04-16-2019 take 1 puff(s) by inhalation once daily Spiriva Respimat 2.5 MCG/ACT Inhalation Aerosol Solution 1 (one) Puff qd for 0 days Quantity: 1 {Inhaler} Refills: 5 Ordered: 16-Apr-2019 Pilar Molina LPN Start : 02-Feb-2019 End : 16-Apr-2019 Inactive Trelegy Ellipta 200 mcg-62.5 mcg-25 mcg powder for inhalation (8 sources) Start: 01-20-2023 Start: 01-06-2023 trihexyphenidyl hydrochlorid e 2 mg oral tablet (20 sources) Start: 10-05-2017 End: 10-26-2018 take 1 tablet by [facility] three times daily trihexyphenidyl (ARTANE) 5 MG tablet Vadim e 5 mg by mouth 3 times daily 0 Active Comment on above: bavis 30 actuat umeclidinium 0.062 5 mg/actuat dry powder inhaler (20 sources) Anticholinergic Start: 01-29-2022 End: 01-30-2022 Start: 01-29-2022 End: 01-30-2022 Start: 10-01-2019 End: 06-01-2021 Start: 10-01-2019 take 1 puff(s) by in halation once daily Incruse Ellipta 62.5 MCG/INH Inhalation Aerosol Powder Breath Activated 1 (one) Puff qd for 0 days Quantity: 3 {Inhaler} Refills: 3 Ordered: 01-Oct-2019 Marybeth Thomas DO, DO, Kathleen Start : 01-Oct-2019 Active Comments: Mail order. Start: 09-06-2019 take 1 puff(s) by in halation once daily Umeclidinium Active 1 PUFF IH DAILY September 06, 2019 12:00am Start: 09-06-2019 take 1 puff(s) by in halation once daily Umeclidinium Active 1 PUFF IH DAILY September 06, 2019 1:00am Start: 04-16-2019 take 1 puff(s) by in halation once daily Incruse Ellipta 62.5 MCG/INH Inhalation Aerosol Powder Breath Activated 1 (one) Puff qd for 0 days Quantity: 1 {Box} Refills: 6 Ordered: 16-Apr-2019 Pilar Molina JOSE Start : 16-Apr-2019 Active Comment on above: Mail order. Problems Active Problems Problem Classification Problem Date Documented Date Episodic/Chronic Abdominal pain (20 sources) Acute abdominal pain; Translations: [Abdominal pain, acute, right upper quadrant] 11-14-2017 Episodic Acute bronchitis (20 sources) Acute bronchitis; Translations: [Bronchitis, acute] Resolved: 2 04-29-2015 Episodic Administrative/social admission (20 sources) Pneumococcal vaccination given; Translations: [Patient encounter status] 11-24-2016 Episodic Anxiety disorders (20 sources) Anxiety; Translations: [Anxiety] 11-14-2017 Chronic Comment on above: stable Biliary tract disease (20 sources) Disorder of gallbladder; Translations: [Polyp of gallbladder] 11-21-2017 Episodic Calculus of urinary tract (20 sources) Calcium renal calculus ; Translations: [Kidney stone] 11-14-2017 Episodic Comment on above: he is getting lithot ripsy on tuesday 4 mm and 5 mm. Cancer of prostate (6 sources) Malignant tumor of prostate; Translations: [Malignant neoplasm of prostate] Onset: 5 06-30-2022 Chronic Chronic obstructive pulmonary disease and bronchiectasis (20 sources) Chronic obstructive lung disease; Translations: [COPD (chronic obstructive pulmonary disease)] 12-14-2018 Chronic Comment on above: alpha one antitrypsi n ck 12/12 Chronic obstructive pulmonary disease and bronchiectasis (20 sources) Bronchitis; Translations: [Bronchitis] Resolved: 9 12-14-2018 Episodic Chronic obstructive pulmonary disease and bronchiectasis (20 sources) Chronic obstructive pulmonary disease and bronchiectasis Diabetes mellitus without complication (20 sources) Impaired fasting glycaemia; Translations: [Impaired fasting glucose] 11-14-2017 Episodic Comment on above: pt to work on diet - - doing lots of mt dew Diseases of white blood cells (20 sources) Leukocytosis; Translations: [Leukocytosis] Resolved: 5 03-19-2016 Chronic Disorders of lipid metabolism (20 sources) Other and unspecified hyperlipidemia; Translations: [Hypercholesterolemia] Resolved: 6 11-14-2017 Chronic Comment on above: started lipitor roug hly a yr ago -- Disorders usually diagnosed in infancy, childhood, or adolescence (4 sources) Tic disorder; Translations: [Tic disorder, unspecified] 09-16-2023 Chronic Esophageal disorders (20 sources) Gastroesophageal reflux disease; Translations: [Gastro-esophageal reflux disease without esophagitis] 11-14-2017 Chronic Esophageal disorders (20 sources) Esophageal disorders Essential hypertension (20 sources) Benign essential hypertension; Translations: [Benign essential hypertension] 11-14-2017 Chronic Fever of unknown origin (20 sources) Fever with chills; Translations: [Fever and chills] 11-14-2017 Episodic Fluid and electrolyte disorders (20 sources) Hyponatremia; Translations: [Hypernatremia] Resolved: 6 03-19-2016 Episodic Gastritis and duodenitis (20 sources) Acute gastritis; Translations: [Gastritis] Resolved: 6 03-19-2016 Episodic Genitourinary symptoms and ill-defined conditions (20 sources) Blood in urine; Translations: [Proteinuria] Resolved: 3 11-14-2017 Episodic Immunizations and screening for infectious disease (20 sources) Need for prophylactic vaccination and inoculation against influenza; Translations: [Pneumococcal vaccination given] 11-24-2016 Episodic Influenza (20 sources) Influenza Nonspecific chest pain (20 sources) Chest pain; Translations: [Chest pain] Resolved: 1 03-19-2016 Episodic Nutritional deficiencies (20 sources) Vitamin D deficiency; Translations: [Vitamin D deficiency] 11-14-2017 Chronic Comment on above: enc to take suppleme nt daily enc to take suppleme nt daily- increase to 4K Osteoarthritis (20 sources) Osteoarthritis; Translations: [Osteoarthritis] 01-28-2020 Chronic Other aftercare (20 sources) Patient encounter status; Translations: [Therapeutic drug monitoring] 09-01-2020 Episodic Other circulatory disease (20 sources) Elevated blood-pressure reading without diagnosis of hypertension; Translations: [Elevated blood-pressure reading without diagnosis of hypertension] Resolved: 0 03-19-2016 Episodic Other connective tissue disease (20 sources) Myalgia; Translations: [Muscle pain] Episodic Other connective tissue disease (2 sources) Neurogenic claudication; Translations: [Other symptoms and signs involving the nervous system] 03-16-2024 Episodic Other diseases of kidney and ureters (20 sources) Renal impairment; Translations: [Renal Insufficiency (Renamed from Renal function impairment)] 11-14-2017 Episodic Comment on above: taking nsaid so ck k idney fcn Other hereditary and degenerative nervous system conditions (11 sources) Spasmodic torticollis; Translations: [Spasmodic torticollis] 12-31-2022 Chronic Other hereditary and degenerative nervous system conditions (7 sources) Dystonic tremor; Translations: [Other specified forms of tremor] 09-08-2023 Chronic Other liver diseases (20 sources) Elevated liver enzymes level; Translations: [Elevated liver enzymes] 01-28-2020 Episodic Comment on above: hold lipitor- roxanne l iver fcn hold lipitor- roxanne l iver fcn--- BACK ON LIPITOR NOW Other lower respiratory disease (20 sources) Cough; Translations: [Cough] Resolved: 0 12-14-2018 Episodic Comment on above: allergy and moved in to bronichits with smking h/o Other lower respiratory disease (20 sources) Dyspnea on exertion; Translations: [SOB (shortness of breath) on exertion] Resolved: 0 02-02-2019 Episodic Other lower respiratory disease (20 sources) Dyspnea; Translations: [SOB (shortness of breath)] 01-06-2023 Episodic Other nervous system disorders (20 sources) Tremor; Translations: [Abnormal involuntary movement] Episodic Other nervous system disorders (20 sources) Abnormal involuntary movement; Translations: [Unspecified abnormal involuntary movements] 11-14-2017 Episodic Comment on above: think essential- he is offered meds doesnt wish Other nervous system disorders (5 sources) Involuntary movement; Translations: [Unspecified abnormal involuntary movements] 09-08-2023 Episodic Other non-traumatic joint disorders (20 sources) Pain in joint, shoulder region; Translations: [Clavical Pain] Resolved: 0 03-19-2016 Episodic Other non-traumatic joint disorders (20 sources) Shoulder pain; Translations: [Acute pain of left shoulder] 12-01-2020 Episodic Comment on above: pt declined inj-, PT , he will keep exercising it at home, will give more time and see ortho later Other nutritional; endocrine; and metabolic disorders (20 sources) Lipoprotein deficiencies; Translations: [Cholesterol level - finding] 11-14-2017 Chronic Comment on above: increase exercise Other nutritional; endocrine; and metabolic disorders (1 source) Yifan's disease; 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 Other nutritional; endocrine; and metabolic disorders (20 sources) Body mass index 25-29 - overweight; Translations: [BMI 25.0-25.9,adult] Resolved: 8 03-29-2019 Episodic Other nutritional; endocrine; and metabolic disorders (20 sources) Overweight in adulthood with body mass index of 25 or more but less than 30; Translations: [BMI 25.0-25.9,adult] Resolved: 8 10-21-2021 Episodic Other screening for suspected conditions (not mental disorders or infectious disease) (20 sources) Imaging result abnormal; Translations: [Abnormal finding on imaging] Resolved: 6 03-19-2016 Chronic Other screening for suspected conditions (not mental disorders or infectious disease) (20 sources) Raised prostate specific antigen; Translations: [Screening for malignant neoplasms of testis] Resolved: 3 11-14-2017 Episodic Comment on above: msg sent ordered radha e psa to follow up --looking for results- doesnt not currently see urology-- but has seen krishan in past screening scope 2017 -- precancerous polyps 2017 due in 3yr Other upper respiratory disease (20 sources) Allergic rhinitis; Translations: [Allergic rhinitis due to other allergen] 11-14-2017 Chronic Other upper respiratory disease (20 sources) Allergic rhinitis due to other allergen Chronic Other upper respiratory infections (20 sources) Bacterial sinusitis; Translations: [Sinusitis, bacterial] Resolved: 2 10-21-2021 Chronic Other upper respiratory infections (20 sources) Acute sinusitis, unspecified; Translations: [Upper respiratory infection] 11-14-2017 Episodic Otitis media and related conditions (20 sources) Unspecified nonsuppurative otitis media, left ear; Translations: [Fluid level behind tympanic membrane] Resolved: 6 11-23-2016 Episodic Comment on above: use nasal srpay - no decong due to htn - if not better 3-4 weeks send to ent Peripheral and visceral atherosclerosis (1 source) Intermittent claudication of bilateral lower limbs co-occurrent and due to atherosclerosis; Translations: [Atherosclerosis of [place] arteries of extremities with intermittent claudication, bilateral legs] 12-08-2023 Chronic Residual codes; unclassified (19 sources) Tobacco user; Translations: [Tobacco use] 12-14-2018 Chronic Comment on above: one pack a day for x 50 yrs -- refused low dose ct chest Residual codes; unclassified (20 sources) Body Mass Index between 19-24, adult; Translations: [Finding of body mass index] Resolved: 8 11-14-2017 Episodic Residual codes; unclassified (20 sources) Needs influenza immunization; Translations: [Need for prophylactic vaccination and inoculation against influenza] 11-14-2017 Episodic Residual codes; unclassified (20 sources) Body mass index (BMI) 22.0-22.9, adult; Translations: [Body mass index (BMI) 23.0-23.9, adult] Resolved: 0 11-14-2017 Episodic Residual codes; unclassified (20 sources) Tobacco use; Translations: [Tobacco use and exposure - finding] 09-01-2020 Episodic Comment on above: one pack a day for x 50 yrs -- refused low dose ct chest Residual codes; unclassified (20 sources) Non-smoker; Translations: [Nonsmoker] Resolved: 9 03-29-2019 Episodic Residual codes; unclassified (20 sources) Activity intolerance; Translations: [Activity intolerance] 01-06-2023 Episodic Screening and history of mental health and substance abuse codes (4 sources) Tobacco use and exposure - finding; Translations: [Tobacco use] 01-09-2020 Chronic Comment on above: one pack a day for x 50 yrs -- refused low dose ct chest Spondylosis; intervertebral disc disorders; other back problems (20 sources) Backache; Translations: [Torticollis] Resolved: 2 03-19-2016 Episodic Comment on above: stablemanaged by rx oral by [facility] pt declined any w/u , rx or therapy managed by rx oral b y [facility] Substance-related disorders (20 sources) Smoker; Translations: [Smoker] 11-14-2017 Chronic Unclassified (20 sources) Hypercholesteremia Unclassified (20 sources) Screening for prostate cancer; Translations: [Screening status] 11-14-2017 Unclassified (20 sources) Torticollis, unspecified (723.5) Unclassified (20 sources) Abdominal pain,RUQ (789.01) Unclassified (20 sources) Hypercholesteremia (272.0) Unclassified (20 sources) Unclassified (20 sources) Screening status; Translations: [Encounter for screening fecal occult blood testing] 11-14-2017 Unclassified (20 sources) Non-smoker; Translations: [Nonsmoker] Resolved: 9 11-14-2017 Unclassified (20 sources) Clavical Pain(719.41) Unclassified (20 sources) SCREENING FOR CANCER OF THE PROSTATE (V76.44) Unclassified (20 sources) Renal insufficiency; Translations: [Renal Insufficiency (Renamed from Renal function impairment)] 11-30-2018 Comment on above: taking nsaid so ck k idney fcn Unclassified (20 sources) BMI 22.0-22.9, adult; Translations: [Body mass index 20-24 - normal] 02-02-2019 Unclassified (20 sources) HYPONATREMIA, NOS (276.1) Unclassified (20 sources) Elevated PSA Unclassified (15 sources) Fluid level behind tympanic membrane of left ear Unclassified (20 sources) BMI between 19-24,adult; Translations: [Finding of body mass index] Resolved: 8 11-14-2017 Unclassified (20 sources) Encounter for screening for malignant neoplasm of colon (Renamed from Special screening for malignant neoplasms, colon) Unclassified (20 sources) BMI 25.0-25.9,adult Unclassified (20 sources) Low HDL (under 40) (272.5) Unclassified (20 sources) BMI 23.0-23.9, adult; Translations: [Body mass index 20-24 - normal] Resolved: 0 02-02-2019 Unclassified (20 sources) Body mass index 20-24 - normal; Translations: [BMI 24.0-24.9, adult] 01-28-2020 Unclassified (18 sources) Drug therapy finding; Translations: [Therapeutic drug monitoring] 01-28-2020 Unclassified (20 sources) Elevated liver enzymes Unclassified (20 sources) Proteinuria, unspecified type Unclassified (16 sources) Low HDL (under 40) Unclassified (7 sources) SOB (shortness of breath) on exertion Unclassified (7 sources) Bronchitis,Acute (466.0) Unclassified (5 sources) Acute pain of left shoulder Urinary tract infections (20 sources) Acute urinary tract infection; Translations: [Urinary tract infection, acute] 11-14-2017 Episodic Past or Other Problems Problem Classification Problem Date Documented Date Episodic/Chronic Essential hypertension (20 sources) Essential hypertension Other connective tissue disease (20 sources) Muscle pain; Translations: [Myalgia and myositis] Resolved: 09-02-2014 03-19-2016 Episodic Other nutritional; endocrine; and metabolic disorders (20 sources) Body mass index 25-29 - overweight; Translations: [BMI 25.0-25.9,adult] Resolved: 11-14-2017 11-14-2017 Chronic Residual codes; unclassified (20 sources) Imaging result abnormal; Translations: [Abnormal finding on imaging] Resolved: 03-19-2016 03-19-2016 Episodic Unclassified (20 sources) Chronic Eczema; Translations: [Chronic Eczema] 11-14-2017 Unclassified (20 sources) Unspecified Diagnosis 11-14-2017 Unclassified (20 sources) Abnormal finding on imaging (793.99) Unclassified (20 sources) Gallbladder polyp Unclassified (20 sources) Right nephrolithiasis Unclassified (20 sources) Abdominal pain, acute, right upper quadrant Unclassified (20 sources) Back pain, acute Unclassified (20 sources) Patient encounter status; Translations: [Encounter for screening fecal occult blood testing] 10-26-2018 Comment on above: screening scope 2017 -- precancerous polyps 2017 due in 3yr Unclassified (7 sources) SCREENING FOR MALIGNANCY, TESTIS (V76.45) Unclassified (2 sources) Encntr for general adult medical exam w/o abnormal findings Unclassified (10 sources) history of surgery for kidney stones 06-15-2022 Comment on above: X3 LAST 2021 AT [facility] Urinary tract infections (20 sources) Urinary tract infections Results Test Name Value Interpretation Reference Range Facility 36on 05-31-2025 36 Lm for patient to ca ll the office back, patient is over due for a follow up. In order to refill medication he needs to come in for an appointment, please schedule when he calls back. Normal [facility] 36on 05-30-2025 36 Lm for patient to ca ll the office back, patient is over due for a follow up. In order to refill medication he needs to come in for an appointment, please schedule when he calls back. Normal [facility] 36on 05-29-2025 36 Lm for patient to ca ll the office back, patient is over due for a follow up. In order to refill medication he needs to come in for an appointment, please schedule when he calls back. Normal [facility] 36 Last ov- 03/16/24 Next ov- n/a Normal [facility] PSA,Total- [facility] 02-22 PSA, DIAGNOSTIC < 0.02 Normal 0.00-4.00 [facility] Comment on above: Result Comment: This test was performed using the Admazely tPSA method. Measured values of a patient??sample can vary depending on the testing procedure used. PSA values determined on patient samples by different testing procedures cannot be used interchangeably. If there is a change in PSA assays while monitoring therapy, sequential testing should be performed to confirm baseline values. Performed By: #### L [id number] #### [facility] [address], [address] PSA,Total- Diagn[facility] 08-25 PSA, DIAGNOSTIC < 0.01 Normal 0.0-4.0 [facility] Comment on above: Result Comment: This test was performed using the TPSA assay method for the Attent[employer].ly system. Values obtained with different assay methods cannot be used interchangably. When changing PSA assays in the course of monitoring a patient, additional sequential testing should be carried out to confirm baseline values. Performed By: #### L [id number] #### [facility] [address] [place], [address] Basophil percentageOrdered B y: Dean Castillo on 08-20-2023 Basophil percentage < 0.01 ng/mL 0.0-4.0 [facility] Comment on above: This test was perfor med using the TPSA assay method for theDimension chemistry system. Values obtained with differentassay methods cannot be used interchangably.When changing PSA assays in the course of monitoring apatient, additional sequential testing should be carriedout to confirm baseline values. CALCIFEDIOL ([id number])Ordered B y: Switchboard Operator on 01-31-2023 25-hydroxyvitamin D [Mass/Vol] 40.6 ng/mL Normal 30.0-100.0 [facility]; [facility] Work Phone: CBC with auto diff ([id number])Or dered By: Switchboard Operator on 01-31-2023 Basophils (Bld) [#/Vol] 0.2 10*3/uL Normal 0.0-0.2 [facility]; [facility] Work Phone: Basophils/100 WBC (Bld) 1 % Normal [facility]; [facility] Work Phone: Eosinophils (Bld) [#/Vol] 0.2 10*3/uL Normal 0.0-0.4 [facility]; [facility] Work Phone: Eosinophils/100 WBC (Bld) 1 % Normal [facility]; [facility] Work Phone: Erythrocyte distribution width (RBC) [Ratio] 12.9 % Normal 11.6-15.4 [facility]; [facility] Work Phone: Hematocrit (Bld) [Volume fraction] 46.5 % Normal 37.5-51.0 [facility]; [facility] Work Phone: Hemoglobin (Bld) [Mass/Vol] 15.9 g/dL Normal 13.0-17.7 [facility]; [facility] Work Phone: Immature granulocytes (Bld) [#/Vol] 0.3 10*3/uL Abnormal 0.0-0.1 [facility]; [facility] Work Phone: Immature granulocytes/100 WBC (Bld) 2 % Normal [facility]; [facility] Work Phone: Lymphocytes (Bld) [#/Vol] 2.4 10*3/uL Normal 0.7-3.1 [facility]; [facility] Work Phone: Lymphocytes/100 WBC (Bld) 17 % Normal [facility]; [facility] Work Phone: MCH (RBC) [Entitic mass] 30.8 pg Normal 26.6-33.0 [facility]; [facility] Work Phone: MCHC (RBC) [Mass/Vol] 34.2 g/dL Normal 31.5-35.7 [facility]; [facility] Work Phone: MCV (RBC) [Entitic vol] 90 fL Normal 79-97 [facility]; [facility] Work Phone: Monocytes (Bld) [#/Vol] 1.1 10*3/uL Abnormal 0.1-0.9 [facility]; [facility] Work Phone: Monocytes/100 WBC (Bld) 7 % Normal [facility]; [facility] Work Phone: Neutrophils (Bld) [#/Vol] 10.5 10*3/uL Abnormal 1.4-7.0 [facility]; [facility] Work Phone: Neutrophils/100 WBC (Bld) 72 % Normal [facility]; [facility] Work Phone: Platelets (Bld) [#/Vol] 196 10*3/uL Normal 150-450 [facility]; [facility] Work Phone: RBC (Bld) [#/Vol] 5.17 10*6/uL Normal 4.14-5.80 [facility]; [facility] Work Phone: WBC (Bld) [#/Vol] 14.6 10*3/uL Abnormal 3.4-10.8 [facility]; [facility] Work Phone: HGB A1C ([id number])Ordered By: Kaylynn ystem Senior Mobile Developer on 01-31-2023 HbA1c (Bld) [Mass fraction] 5.5 % Normal 4.8-5.6 [facility]; [facility] Work Phone: LIPID PANEL ([id number])Ordered B y: Switchboard Operator on 01-31-2023 Cholesterol [Mass/Vol] 214 mg/dL Abnormal 100-199 [facility]; [facility] Work Phone: Cholesterol in HDL [Mass/Vol] 30 mg/dL Abnormal [facility]; [facility] Work Phone: Triglyceride [Mass/Vol] 144 mg/dL Normal 0-149 [facility]; [facility] Work Phone: LIPID PANEL ([id number]) 27 mg/dL Normal 5-40 [facility]; [facility] Work Phone: LIPID PANEL ([id number]) 157 mg/dL Abnormal 0-99 [facility]; [facility] Work Phone: LIPID PANEL ([id number]) 5.2 {ratio} Abnormal 0.0-3.6 [facility]; [facility] Work Phone: METABOLIC PANEL, COMPREHENSI VE ([id number])Ordered By: Switchboard Operator on 01-31-2023 Albumin [Mass/Vol] 4.3 g/dL Normal 3.9-4.9 [facility]; [facility] Work Phone: Albumin/Globulin [Mass ratio] 1.8 {ratio} Normal 1.2-2.2 [facility]; [facility] Work Phone: ALP [Catalytic activity/Vol] 113 U/L Normal 44-121 [facility]; [facility] Work Phone: ALT [Catalytic activity/Vol] 26 U/L Normal 0-44 [facility]; [facility] Work Phone: AST [Catalytic activity/Vol] 19 U/L Normal 0-40 [facility]; [facility] Work Phone: Bilirubin [Mass/Vol] 0.4 mg/dL Normal 0.0-1.2 [facility]; [facility] Work Phone: Calcium [Mass/Vol] 9.2 mg/dL Normal 8.6-10.2 [facility]; [facility] Work Phone: Chloride [Moles/Vol] 104 mmol/L Normal 96-106 [facility]; [facility] Work Phone: CO2 [Moles/Vol] 22 mmol/L Normal 20-29 [facility]; [facility] Work Phone: Creatinine [Mass/Vol] 1.32 mg/dL Abnormal 0.76-1.27 [facility]; [facility] Work Phone: Globulin (S) [Mass/Vol] 2.4 g/dL Normal 1.5-4.5 [facility]; [facility] Work Phone: Glucose [Mass/Vol] 98 mg/dL Normal 70-99 [facility]; [facility] Work Phone: Potassium [Moles/Vol] 4.9 mmol/L Normal 3.5-5.2 [facility]; [facility] Work Phone: Protein [Mass/Vol] 6.7 g/dL Normal 6.0-8.5 [facility]; [facility] Work Phone: Sodium [Moles/Vol] 142 mmol/L Normal 134-144 [facility]; [facility] Work Phone: Urea nitrogen [Mass/Vol] 18 mg/dL Normal 8-27 [facility]; [facility] Work Phone: Urea nitrogen/Creatinine [Mass ratio] 14 mg/mg Normal 10-24 [facility]; [facility] Work Phone: METABOLIC PANEL, COMPREHENSIVE ([id number]) 59 mL/min/1.73 Abnormal [facility]; [facility] Work Phone: MICROALBUMINOrdered By: Syst em Senior Mobile Developer on 01-31-2023 Albumin DL <= 20 mg/L (U) [Mass/Vol] 9.9 ug/mL Normal [facility]; [facility] Work Phone: Albumin/Creatinine (U) [Mass ratio] 3 {mg/g_creat} Normal 0-29 [facility]; [facility] Work Phone: Creatinine (U) [Mass/Vol] 300.7 mg/dL Normal [facility]; [facility] Work Phone: No Panel InformationOrdered By: EDINSON Larose on 11-25-2022 Prostate Specific Antigen Total < 0.01 ng/mL 0.0-4.0 [facility] Comment on above: This test was perfor med using the TPSA assay method for theDimension chemistry system. Values obtained with differentassay methods cannot be used interchangably.When changing PSA assays in the course of monitoring apatient, additional sequential testing should be carriedout to confirm baseline values. No Panel InformationOrdered By: Dr. Castillo on 08-26-2022 Prostate Specific Antigen Total < 0.01 ng/mL 0.0-4.0 [facility] Comment on above: This test was perfor med using the TPSA assay method for theDimension chemistry system. Values obtained with differentassay methods cannot be used interchangably.When changing PSA assays in the course of monitoring apatient, additional sequential testing should be carriedout to confirm baseline values. Blood Glucose , Office ([phone])Ordered By: Suzie Leiva on 08-20-2022 Glucose Glucometer (BldC) [Moles/Vol] 95 1 Normal [facility]; [facility] Work Phone: CALCIFIDIOL ([id number]) VIT D 25 Ordered By: Switchboard Operator on 08-20-2022 25-hydroxyvitamin D [Mass/Vol] 38.2 ng/mL Normal 30.0-100.0 [facility]; [facility] Work Phone: CBC W/AUTO DIFF WBC ([id number])O rdered By: Switchboard Operator on 08-20-2022 Basophils (Bld) [#/Vol] 0.1 10*3/uL Normal 0.0-0.2 [facility]; [facility] Work Phone: Basophils/100 WBC (Bld) 1 % Normal [facility]; [facility] Work Phone: Eosinophils (Bld) [#/Vol] 0.1 10*3/uL Normal 0.0-0.4 [facility]; [facility] Work Phone: Eosinophils/100 WBC (Bld) 1 % Normal [facility]; [facility] Work Phone: Erythrocyte distribution width (RBC) [Ratio] 12.4 % Normal 11.6-15.4 [facility]; [facility] Work Phone: Hematocrit (Bld) [Volume fraction] 50.3 % Normal 37.5-51.0 [facility]; [facility] Work Phone: Hemoglobin (Bld) [Mass/Vol] 16.8 g/dL Normal 13.0-17.7 [facility]; [facility] Work Phone: Immature granulocytes (Bld) [#/Vol] 0.2 10*3/uL Abnormal 0.0-0.1 [facility]; [facility] Work Phone: Immature granulocytes/100 WBC (Bld) 1 % Normal [facility]; [facility] Work Phone: Lymphocytes (Bld) [#/Vol] 2.0 10*3/uL Normal 0.7-3.1 [facility]; [facility] Work Phone: Lymphocytes/100 WBC (Bld) 18 % Normal [facility]; [facility] Work Phone: MCH (RBC) [Entitic mass] 29.6 pg Normal 26.6-33.0 [facility]; [facility] Work Phone: MCHC (RBC) [Mass/Vol] 33.4 g/dL Normal 31.5-35.7 [facility]; [facility] Work Phone: MCV (RBC) [Entitic vol] 89 fL Normal 79-97 [facility]; [facility] Work Phone: Monocytes (Bld) [#/Vol] 0.8 10*3/uL Normal 0.1-0.9 [facility]; [facility] Work Phone: Monocytes/100 WBC (Bld) 7 % Normal [facility]; [facility] Work Phone: Neutrophils (Bld) [#/Vol] 7.8 10*3/uL Abnormal 1.4-7.0 [facility]; [facility] Work Phone: Neutrophils/100 WBC (Bld) 72 % Normal [facility]; [facility] Work Phone: Platelets (Bld) [#/Vol] 200 10*3/uL Normal 150-450 [facility]; [facility] Work Phone: RBC (Bld) [#/Vol] 5.68 10*6/uL Normal 4.14-5.80 [facility]; [facility] Work Phone: WBC (Bld) [#/Vol] 11.0 10*3/uL Abnormal 3.4-10.8 [facility]; [facility] Work Phone: HgA1C , Office ([phone])Ordere d By: Suzie Leiva on 08-20-2022 HbA1c (Bld) [Mass fraction] 5.4 % Normal 4.6 - 7.1 [facility]; [facility] Work Phone: LIPID PANEL ([id number])Ordered B y: Switchboard Operator on 08-20-2022 Cholesterol [Mass/Vol] 234 mg/dL Abnormal 100-199 [facility]; [facility] Work Phone: Cholesterol in HDL [Mass/Vol] 39 mg/dL Abnormal [facility]; [facility] Work Phone: Triglyceride [Mass/Vol] 172 mg/dL Abnormal 0-149 [facility]; [facility] Work Phone: LIPID PANEL ([id number]) 32 mg/dL Normal 5-40 [facility]; [facility] Work Phone: LIPID PANEL ([id number]) 163 mg/dL Abnormal 0-99 [facility]; [facility] Work Phone: LIPID PANEL ([id number]) 4.2 {ratio} Abnormal 0.0-3.6 [facility]; [facility] Work Phone: METABOLIC PANEL, COMPREHENSI VE ([id number])Ordered By: Switchboard Operator on 08-20-2022 Albumin [Mass/Vol] 4.8 g/dL Normal 3.8-4.8 [facility]; [facility] Work Phone: Albumin/Globulin [Mass ratio] 2.0 {ratio} Normal 1.2-2.2 [facility]; [facility] Work Phone: ALP [Catalytic activity/Vol] 103 U/L Normal 44-121 [facility]; [facility] Work Phone: ALT [Catalytic activity/Vol] 32 U/L Normal 0-44 [facility]; [facility] Work Phone: AST [Catalytic activity/Vol] 24 U/L Normal 0-40 [facility]; [facility] Work Phone: Bilirubin [Mass/Vol] 0.5 mg/dL Normal 0.0-1.2 [facility]; [facility] Work Phone: Calcium [Mass/Vol] 9.4 mg/dL Normal 8.6-10.2 [facility]; [facility] Work Phone: Chloride [Moles/Vol] 99 mmol/L Normal 96-106 [facility]; [facility] Work Phone: CO2 [Moles/Vol] 24 mmol/L Normal 20-29 [facility]; [facility] Work Phone: Creatinine [Mass/Vol] 1.21 mg/dL Normal 0.76-1.27 [facility]; [facility] Work Phone: Globulin (S) [Mass/Vol] 2.4 g/dL Normal 1.5-4.5 [facility]; [facility] Work Phone: Glucose [Mass/Vol] 90 mg/dL Normal 70-99 [facility]; [facility] Work Phone: Potassium [Moles/Vol] 4.7 mmol/L Normal 3.5-5.2 [facility]; [facility] Work Phone: Protein [Mass/Vol] 7.2 g/dL Normal 6.0-8.5 [facility]; [facility] Work Phone: Sodium [Moles/Vol] 139 mmol/L Normal 134-144 [facility]; [facility] Work Phone: Urea nitrogen [Mass/Vol] 18 mg/dL Normal 8-27 [facility]; [facility] Work Phone: Urea nitrogen/Creatinine [Mass ratio] 15 mg/mg Normal 10-24 [facility]; [facility] Work Phone: METABOLIC PANEL, [facility] ([id number]) 65 mL/min/1.73 Normal [facility]; [facility] Work Phone: MICROALBUMINOrdered By: Domobios em Senior Mobile Developer on 08-20-2022 Albumin DL <= 20 mg/L (U) [Mass/Vol] 24.2 ug/mL Normal [facility]; [facility] Work Phone: Albumin/Creatinine (U) [Mass ratio] 16 {mg/g_creat} Normal 0-29 [facility]; [facility] Work Phone: Creatinine (U) [Mass/Vol] 154.2 mg/dL Normal [facility]; [facility] Work Phone: TSH ([id number])Ordered By: Domobiose m Senior Mobile Developer on 08-20-2022 TSH Qn 1.700 {uIU/mL} Normal 0.450-4.50 0 [facility]; [facility] Work Phone: URINALYSIS, W/ MICRO ([id number]) Ordered By: Switchboard Operator on 08-20-2022 Appearance (U) Clear Normal [facility]; [facility] Work Phone: Bilirubin Ql (U) Negative Normal [facility]; [facility] Work Phone: Color (U) Yellow Normal [facility]; [facility] Work Phone: Glucose Ql (U) Negative Normal [facility]; [facility] Work Phone: Hemoglobin Ql (U) 3+ Abnormal [facility]; [facility] Work Phone: Ketones Ql (U) Negative Normal [facility]; [facility] Work Phone: Leukocyte esterase Test strip Ql (U) Negative Normal [facility]; [facility] Work Phone: Microscopic observation LM Nom (Urine sed) See below: Normal [facility]; [facility] Work Phone: Nitrite Ql (U) Negative Normal [facility]; [facility] Work Phone: pH (U) 6.0 [pH] Normal 5.0-7.5 [facility]; [facility] Work Phone: Protein Ql (U) Trace Normal [facility]; [facility] Work Phone: Specific gravity (U) [Rel density] 1.018 1 Normal 1.005-1.03 0 [facility]; [facility] Work Phone: Urobilinogen (U) [Mass/Vol] 0.2 mg/dL Normal 0.2-1.0 [facility]; [facility] Work Phone: Basophil percentageOrdered B y: Dr. Castillo on 05-18-2022 Chloride [Moles/Vol] 107 mmol/L 98-107 [facility] Glucose [Mass/Vol] 93 mg/dL 74-106 [facility] Potassium [Moles/Vol] 4.2 mmol/L 3.5-5.1 [facility] Sodium [Moles/Vol] 137 mmol/L 136-145 [facility] WBC (Bld) [#/Vol] 12.6 10*3/uL 4.4-11.0 [facility] Blood erythrocytes count (nu mber/volume)Ordered By: Dr. Castillo on 05-18-2022 RBC (Bld) [#/Vol] 5.29 10*6/uL 4.6-6.2 [facility] Blood hemoglobin measurement (mass/volume)Ordered By: Dr. Castillo on 05-18-2022 Hemoglobin (Bld) [Mass/Vol] 16.6 g/dL 13.0-16.5 [facility] Blood platelet mean volumeOr dered By: Dr. Castillo on 05-18-2022 Platelet mean volume (Bld) [Entitic vol] 10.6 fL 6.2-12.0 [facility] Determination of erythrocyte mean corpuscular volume (MCV)Ordered By: Dr. Castillo on 05-18-2022 MCV (RBC) [Entitic vol] 90.2 fL 80-94 [facility] Hematocrit Auto (Bld) [Volum e fraction]Ordered By: Dr. Castillo on 05-18-2022 Hematocrit (Bld) [Volume fraction] 47.7 % 40-54 [facility] - Chemistry and C hemistry - challengeOrdered By: Dr. Castillo on 05-18-2022 CO2 [Moles/Vol] 26.0 mmol/L 21.0-32.0 [facility] Urea nitrogen/Creatinine [Mass ratio] 13.8 mg/mg 10-20 [facility] - Hematology and Cell countsOrdered By: Dr. Castillo on 05-18-2022 Erythrocyte distribution width (RBC) [Entitic vol] 41.8 fL 35.1-43.9 [facility] Erythrocyte distribution width (RBC) [Ratio] 12.7 % 11.6-14.6 [facility] MCH (RBC) [Entitic mass] 31.4 pg 27.0-32.0 [facility] MCHC Auto (RBC) [Mass/Vol]Or dered By: Dr. Castillo on 05-18-2022 MCHC (RBC) [Mass/Vol] 34.8 g/dL 32-36 [facility] No Panel InformationOrdered By: Dr. Castillo on 05-18-2022 Estimated GFR (MDRD) Amer 81 mL/min >60 [facility] Comment on above: GFR Calc Estimated GFR (MDRD) Non-Af Amer 67 mL/min >60 [facility] Comment on above: Non- GFR Calc Platelets bldOrdered By: Dr. Castillo on 05-18-2022 Platelets (Bld) [#/Vol] 206 10*3/uL 150-450 [facility] Serum or plasma calcium yumiko urement (mass/volume)Ordered By: Dr. Castillo on 05-18-2022 Calcium [Mass/Vol] 9.0 mg/dL 8.5-10.1 [facility] Serum or plasma creatinine m easurement (mass/volume)Ordered By: Dr. Castillo on 05-18-2022 Creatinine [Mass/Vol] 1.16 mg/dL 0.70-1.30 [facility] Comment on above: The validity of the calculated GFR & GFRAA in patients over 70 years has not been determined. Clinical correlation is essential. Serum or plasma urea nitroge n measurement (mass/volume)Ordered By: Dr. Castillo on 05-18-2022 Urea nitrogen [Mass/Vol] 16 mg/dL 7-18 [facility] Thin prep Papanicolaou smear with manual screeningOrdered By: Dr. Castillo on 05-18-2022 Thin prep Papanicolaou smear with manual screening 4 5-15 [facility] Basophil percentageOrdered B y: Dr. Castillo on 05-13-2022 Creatinine [Mass/Vol] 1.4 mg/dL 0.70-1.30 [facility] - Chemistry and C hemistry - challengeOrdered By: Dr. Castillo on 05-13-2022 GFR/1.73 sq M.predicted among non-blacks MDRD (S/P/Bld) [Vol rate/Area] 54.0000 mL/min/{1.73_m2} >60 [facility] CALCIFEDIOL ([id number])Ordered B y: Switchboard Operator on 01-29-2022 25-hydroxyvitamin D [Mass/Vol] 33.0 ng/mL Normal 30.0-100.0 [facility]; [facility] Work Phone: HgA1C , Office ([phone])Ordere d By: Leann Aquino on 01-29-2022 HbA1c (Bld) [Mass fraction] 5.3 % Normal 4.6 - 7.1 [facility]; [facility] Work Phone: PSA (PROSTATE SPECIFIC ANTIG EN) (V76.44)Ordered By: Switchboard Operator on 01-29-2022 Prostate specific Ag [Mass/Vol] 9.4 ng/mL Abnormal 0.0-4.0 [facility]; [facility] Work Phone: HgA1C , Office ([phone])Ordere d By: Stacy Jensen on 10-21-2021 HbA1c (Bld) [Mass fraction] 5.3 % Normal 4.6 - 7.1 [facility]; [facility] Work Phone: CBC W/AUTO DIFF WBC ([id number])O rdered By: Switchboard Operator on 10-07-2021 Basophils (Bld) [#/Vol] 0.1 10*3/uL Normal 0.0-0.2 [facility]; [facility] Work Phone: Basophils/100 WBC (Bld) 1 % Normal [facility]; [facility] Work Phone: Eosinophils (Bld) [#/Vol] 0.1 10*3/uL Normal 0.0-0.4 [facility]; [facility] Work Phone: Eosinophils/100 WBC (Bld) 1 % Normal [facility]; [facility] Work Phone: Erythrocyte distribution width (RBC) [Ratio] 12.4 % Normal 11.6-15.4 [facility]; [facility] Work Phone: Hematocrit (Bld) [Volume fraction] 47.0 % Normal 37.5-51.0 [facility]; [facility] Work Phone: Hemoglobin (Bld) [Mass/Vol] 15.9 g/dL Normal 13.0-17.7 [facility]; [facility] Work Phone: Immature granulocytes (Bld) [#/Vol] 0.1 10*3/uL Normal 0.0-0.1 [facility]; [facility] Work Phone: Immature granulocytes/100 WBC (Bld) 1 % Normal [facility]; [facility] Work Phone: Lymphocytes (Bld) [#/Vol] 1.6 10*3/uL Normal 0.7-3.1 [facility]; [facility] Work Phone: Lymphocytes/100 WBC (Bld) 14 % Normal [facility]; [facility] Work Phone: MCH (RBC) [Entitic mass] 31.3 pg Normal 26.6-33.0 [facility]; [facility] Work Phone: MCHC (RBC) [Mass/Vol] 33.8 g/dL Normal 31.5-35.7 [facility]; [facility] Work Phone: MCV (RBC) [Entitic vol] 93 fL Normal 79-97 [facility]; [facility] Work Phone: Monocytes (Bld) [#/Vol] 0.7 10*3/uL Normal 0.1-0.9 [facility]; [facility] Work Phone: Monocytes/100 WBC (Bld) 6 % Normal [facility]; [facility] Work Phone: Neutrophils (Bld) [#/Vol] 8.6 10*3/uL Abnormal 1.4-7.0 [facility]; [facility] Work Phone: Neutrophils/100 WBC (Bld) 77 % Normal [facility]; [facility] Work Phone: Platelets (Bld) [#/Vol] 202 10*3/uL Normal 150-450 [facility]; [facility] Work Phone: RBC (Bld) [#/Vol] 5.08 10*6/uL Normal 4.14-5.80 [facility]; [facility] Work Phone: WBC (Bld) [#/Vol] 11.3 10*3/uL Abnormal 3.4-10.8 [facility]; [facility] Work Phone: HEPATITIS C ANTIBODY ([id number]) Ordered By: Switchboard Operator on 10-07-2021 HCV Ab Signal/Cutoff IA [Rel units/Vol] 0.1 {s/co_ratio} Normal 0.0-0.9 [facility]; [facility] Work Phone: LIPID PANEL ([id number])Ordered B y: Switchboard Operator on 10-07-2021 Cholesterol [Mass/Vol] 149 mg/dL Normal 100-199 [facility]; [facility] Work Phone: Cholesterol in HDL [Mass/Vol] 36 mg/dL Abnormal [facility]; [facility] Work Phone: Triglyceride [Mass/Vol] 144 mg/dL Normal 0-149 [facility]; [facility] Work Phone: LIPID PANEL ([id number]) 25 mg/dL Normal 5-40 [facility]; [facility] Work Phone: LIPID PANEL ([id number]) 88 mg/dL Normal 0-99 [facility]; [facility] Work Phone: LIPID PANEL ([id number]) 2.4 {ratio} Normal 0.0-3.6 [facility]; [facility] Work Phone: METABOLIC PANEL, COMPREHENSI VE ([id number])Ordered By: Switchboard Operator on 10-07-2021 Albumin [Mass/Vol] 4.9 g/dL Abnormal 3.8-4.8 [facility]; [facility] Work Phone: Albumin/Globulin [Mass ratio] 2.5 {ratio} Abnormal 1.2-2.2 [facility]; [facility] Work Phone: ALP [Catalytic activity/Vol] 107 U/L Normal 44-121 [facility]; [facility] Work Phone: ALT [Catalytic activity/Vol] 32 U/L Normal 0-44 [facility]; [facility] Work Phone: AST [Catalytic activity/Vol] 28 U/L Normal 0-40 [facility]; [facility] Work Phone: Bilirubin [Mass/Vol] 0.4 mg/dL Normal 0.0-1.2 [facility]; [facility] Work Phone: Calcium [Mass/Vol] 9.7 mg/dL Normal 8.6-10.2 [facility]; [facility] Work Phone: Chloride [Moles/Vol] 102 mmol/L Normal 96-106 [facility]; [facility] Work Phone: CO2 [Moles/Vol] 25 mmol/L Normal 20-29 [facility]; [facility] Work Phone: Creatinine [Mass/Vol] 1.35 mg/dL Abnormal 0.76-1.27 [facility]; [facility] Work Phone: Globulin (S) [Mass/Vol] 2.0 g/dL Normal 1.5-4.5 [facility]; [facility] Work Phone: Glucose [Mass/Vol] 95 mg/dL Normal 65-[address] [facility]; [facility] Work Phone: Potassium [Moles/Vol] 5.1 mmol/L Normal 3.5-5.2 [facility]; [facility] Work Phone: Protein [Mass/Vol] 6.9 g/dL Normal 6.0-8.5 [facility]; [facility] Work Phone: Sodium [Moles/Vol] 144 mmol/L Normal 134-144 [facility]; [facility] Work Phone: Urea nitrogen [Mass/Vol] 17 mg/dL Normal 8-27 [facility]; [facility] Work Phone: Urea nitrogen/Creatinine [Mass ratio] 13 mg/mg Normal 10-24 [facility]; [facility] Work Phone: METABOLIC PANEL, COMPREHENSIVE ([id number]) 58 mL/min/1.73 Abnormal [facility]; [facility] Work Phone: MICROALBUMINOrdered By: Syst em Senior Mobile Developer on 10-07-2021 Albumin DL <= 20 mg/L (U) [Mass/Vol] 12.8 ug/mL Normal [facility]; [facility] Work Phone: Albumin/Creatinine (U) [Mass ratio] 4 {mg/g_creat} Normal 0-29 [facility]; [facility] Work Phone: Creatinine (U) [Mass/Vol] 288.5 mg/dL Normal [facility]; [facility] Work Phone: TSH ([id number])Ordered By: Syste m Senior Mobile Developer on 10-07-2021 TSH Qn 1.530 {uIU/mL} Normal 0.450-4.50 0 [facility]; [facility] Work Phone: URINALYSIS, W/ MICRO ([id number]) Ordered By: Switchboard Operator on 10-07-2021 Appearance (U) Cloudy Abnormal [facility]; [facility] Work Phone: Bilirubin Ql (U) Negative Normal [facility]; [facility] Work Phone: Color (U) Yellow Normal [facility]; [facility] Work Phone: Glucose Ql (U) Negative Normal [facility]; [facility] Work Phone: Hemoglobin Ql (U) Negative Normal [facility]; [facility] Work Phone: Ketones Ql (U) Trace Abnormal [facility]; [facility] Work Phone: Leukocyte esterase Test strip Ql (U) 1+ Abnormal [facility]; [facility] Work Phone: Microscopic observation LM Nom (Urine sed) See below: Normal [facility]; [facility] Work Phone: Nitrite Ql (U) Negative Normal [facility]; [facility] Work Phone: pH (U) 6.0 [pH] Normal 5.0-7.5 [facility]; [facility] Work Phone: Protein Ql (U) Trace Normal [facility]; [facility] Work Phone: Specific gravity (U) [Rel density] 1.024 1 Normal 1.005-1.03 0 [facility]; [facility] Work Phone: Urobilinogen (U) [Mass/Vol] 0.2 mg/dL Normal 0.2-1.0 [facility]; [facility] Work Phone: Blood Glucose , Office ([phone])Ordered By: Stacy Jensen on 04-06-2021 Glucose Glucometer (BldC) [Moles/Vol] 87 1 Normal [facility]; [facility] Work Phone: HgA1C , Office ([id number])Ordere d By: Stacy Jensen on 04-06-2021 HbA1c (Bld) [Mass fraction] 5.2 % Normal 4.6 - 7.1 [facility] Work Phone: CALCIFEDIOL ([id number])Ordered B y: Switchboard Operator on 03-20-2021 25-hydroxyvitamin D [Mass/Vol] 34.5 ng/mL Normal 30.0-100.0 [facility]; [facility] Work Phone: CALCIFEDIOL ([phone])Ordered B y: Switchboard Operator on 11-20-2020 25-hydroxyvitamin D [Mass/Vol] 38.2 ng/mL Normal 30.0-100.0 [facility]; [facility] Work Phone: Comment on above: Vitamin D deficiency has been defined by the [place] of[place]icine and an Endocrine Society practice guideline as alevel of serum 25-OH vitamin D less than 20 ng/mL (1,2).The Endocrine Society went on to further define vitamin Dinsufficiency as a level between 21 and 29 ng/mL (2).1. IOM ([place] of [employer]). 2010. Dietary reference intakes for calcium and D. [place]: The National Academies Press.2. Rayna MF, Ana Luisa HASSAN, William CUBA, et al. Evaluation, treatment, and prevention of vitamin D deficiency: an Endocrine Society clinical practice guideline. JCEM. 2010; 96(7):1911-30. Test(s) 503880-DOQ-T ; 183279-RNJ-C; 592919-Leolctwoavnsp; 965641-Fgkxmxpgncv, Total; 120954-VUD-I (Total); 204244-Rrjhz LDL-P; 626410-RQQ Size; 033486-DV-HH Scorewas developed and its performance characteristics determinedby [facility]. It has not been cleared or approved by the Foodand Drug Administration.PATIENT WAS FASTINGPERFORMED BY: SalesPredict[address] [id number] BY: [employer] Systems[address] [place] Fore[facility] LogicFormerly [facility], [facility] [id number] CBC with auto diff (62407)Or dered By: Switchboard Operator on 11-20-2020 Basophils (Bld) [#/Vol] 0.1 10*3/uL Normal 0.0-0.2 [facility]; [facility] Work Phone: Comment on above: Test(s) 036345-OHE-B ; 057811-DOG-E; 140422-Acegtwrmjsyhz; 781977-Qhbbdtowvaq, Total; 662394-GCR-Q (Total); 159960-Brbzk LDL-P; 409431-OZN Size; 979063-LJ-KA Scorewas developed and its performance characteristics determinedby [employer]. It has not been cleared or approved by the Foodand Drug Administration.PATIENT WAS FASTINGPERFORMED BY: Digiting [address] [id number] BY: [employer] Systems6370 Sequ[facility] LabsFormerly [facility], [facility] [id number] Basophils/100 WBC (Bld) 1 % Normal [facility]; [facility] Work Phone: Comment on above: Test(s) 684835-QTD-T ; 072888-CCL-P; 496461-Iqxioilnwyean; 349355-Uywresmftal, Total; 452319-CHE-N (Total); 182748-Bpyia LDL-P; 148620-DNH Size; 664275-GA-ZK Scorewas developed and its performance characteristics determinedby [employer]. It has not been cleared or approved by the Foodand Drug Administration.PATIENT WAS FASTINGPERFORMED BY: Digiting [address] [id number] BY: Hipsterlin[address] [facility] [id number] Eosinophils (Bld) [#/Vol] 0.2 10*3/uL Normal 0.0-0.4 [facility]; [facility] Work Phone: Comment on above: Test(s) 821037-OUA-Z ; 766101-TOL-S; 529554-Hskyvhjiizrej; 885720-Bfxkfwazwfi, Total; 297410-WNT-E (Total); 703253-Gxxqk LDL-P; 926758-HYP Size; 880537-RK-MO Scorewas developed and its performance characteristics determinedby [employer]. It has not been cleared or approved by the Foodand Drug Administration.PATIENT WAS FASTINGPERFORMED BY: Digiting [address] [id number] BY: [employer] Euxsiy[address] [facility] [id number] Eosinophils/100 WBC (Bld) 2 % Normal [facility]; [facility] Work Phone: Comment on above: Test(s) 174427-GHA-B ; 169252-QXG-G; 680883-Ykqxwqhqzdlcp; 044026-Ayddzzyyvkv, Total; 762841-ZEC-X (Total); 179030-Inzfa LDL-P; 012016-OVJ Size; 758942-MI-UC Scorewas developed and its performance characteristics determinedby [employer]. It has not been cleared or approved by the Foodand Drug Administration.PATIENT WAS FASTINGPERFORMED BY: Digiting [address] [id number] BY: [employer] Saoyqh80[address] [facility] [id number] Erythrocyte distribution width (RBC) [Ratio] 12.8 % Normal 11.6-15.4 [facility]; [facility] Work Phone: Comment on above: Test(s) 545201-YRT-L ; 427191-RHV-H; 407383-Lkuilmjglucfc; 737269-Vypmjpbazlb, Total; 774890-PFW-O (Total); 824766-Gxacz LDL-P; 783727-HJB Size; 273424-MP-XQ Scorewas developed and its performance characteristics determinedby [employer]. It has not been cleared or approved by the Foodand Drug Administration.PATIENT WAS FASTINGPERFORMED BY: Digiting [address] [id number] BY: StartpackEssex County HospitalCjuiqs1929 [place] [facility]ibilityGr[facility] Center [id number] Hematocrit (Bld) [Volume fraction] 45.2 % Normal 37.5-51.0 [facility]; [facility] Work Phone: Comment on above: Test(s) 066425-RAL-U ; 773533-KLA-T; 596716-Icbzvoikrugzy; 414001-Fguplufbqvy, Total; 544039-MBC-G (Total); 465152-Mzqtc LDL-P; 885236-BZZ Size; 973369-DH-HV Scorewas developed and its performance characteristics determinedby [employer]. It has not been cleared or approved by the Foodand Drug Administration.PATIENT WAS FASTINGPERFORMED BY: Digiting [address] [id number] BY: [employer]6370 [facility] [id number] Hemoglobin (Bld) [Mass/Vol] 15.6 g/dL Normal 13.0-17.7 [facility]; [facility] Work Phone: Comment on above: Test(s) 203802-HIM-B ; 276347-MLS-E; 659505-Chuqlnxxacyic; 535453-Cyrefgzlkyw, Total; 653907-VCQ-A (Total); 293435-Rlfjz LDL-P; 291125-MGA Size; 203074-LQ-PQ Scorewas developed and its performance characteristics determinedby [employer]. It has not been cleared or approved by the Foodand Drug Administration.PATIENT WAS FASTINGPERFORMED BY: Digiting [address] [id number] BY: Hipsterlin6[address] [facility] [id number] Immature granulocytes (Bld) [#/Vol] 0.1 10*3/uL Normal 0.0-0.1 [facility]; [facility] Work Phone: Comment on above: Test(s) 792556-YEP-L ; 696536-BZN-I; 132196-Ccqbmmgiuznoj; 576322-Qeseanwujad, Total; 960115-SEV-M (Total); 499997-Swmgx LDL-P; 033864-AJF Size; 202382-LH-HE Scorewas developed and its performance characteristics determinedby [employer]. It has not been cleared or approved by the Foodand Drug Administration.PATIENT WAS FASTINGPERFORMED BY: Digiting [address] [id number] BY: Sidecar70 [facility] [id number] Immature granulocytes/100 WBC (Bld) 1 % Normal [facility]; [facility] Work Phone: Comment on above: Test(s) 693920-HQX-Z ; 865069-GLF-F; 767986-Yywmsafcjzvgj; 209494-Ldegqjhfged, Total; 368576-UHH-T (Total); 236621-Dkvld LDL-P; 606476-XIE Size; 997315-EG-UJ Scorewas developed and its performance characteristics determinedby [employer]. It has not been cleared or approved by the Foodand Drug Administration.PATIENT WAS FASTINGPERFORMED BY: Digiting [address] [id number] BY: [employer] [facility] [id number] Lymphocytes (Bld) [#/Vol] 1.7 10*3/uL Normal 0.7-3.1 [facility]; [facility] Work Phone: Comment on above: Test(s) 670030-PLL-A ; 437564-PUU-D; 751568-Prvretmzjflhv; 790575-Jqbmvnwwkfi, Total; 456761-FRO-S (Total); 159676-Inrhj LDL-P; 619849-SRH Size; 881788-II-ZW Scorewas developed and its performance characteristics determinedby [employer]. It has not been cleared or approved by the Foodand Drug Administration.PATIENT WAS FASTINGPERFORMED BY: Digiting [address] [id number] BY: Sidecar[address] [facility] [id number] Lymphocytes/100 WBC (Bld) 17 % Normal [facility]; [facility] Work Phone: Comment on above: Test(s) 706438-OVV-D ; 035486-GEG-F; 300454-Ivpbbxfpwemst; 954785-Xqxxxhvnqve, Total; 236987-EEF-J (Total); 733185-Iyiln LDL-P; 096941-KYR Size; 541852-QW-QD Scorewas developed and its performance characteristics determinedby [employer]. It has not been cleared or approved by the Foodand Drug Administration.PATIENT WAS FASTINGPERFORMED BY: Digiting [address] [id number] BY: [employer] [facility] [id number] MCH (RBC) [Entitic mass] 31.8 pg Normal 26.6-33.0 [facility]; [facility] Work Phone: Comment on above: Test(s) 327062-LPE-B ; 775465-MAQ-S; 844223-Yoheepwchdirf; 778431-Lgsxmonxhfe, Total; 771133-FRW-G (Total); 614709-Irykp LDL-P; 325424-USN Size; 996687-QM-VD Scorewas developed and its performance characteristics determinedby [employer]. It has not been cleared or approved by the Foodand Drug Administration.PATIENT WAS FASTINGPERFORMED BY: Digiting [address] [id number] BY: StartpackEssex County HospitalBgwdfk94[address] [facility] [id number] MCHC (RBC) [Mass/Vol] 34.5 g/dL Normal 31.5-35.7 [facility]; [facility] Work Phone: Comment on above: Test(s) 732445-LWZ-K ; 835437-NES-Q; 281092-Liehfeqvumccb; 569339-Xdgzctbxrte, Total; 216408-GNT-T (Total); 498558-Wokkr LDL-P; 500246-FMZ Size; 591404-NL-IS Scorewas developed and its performance characteristics determinedby [employer]. It has not been cleared or approved by the Foodand Drug Administration.PATIENT WAS FASTINGPERFORMED BY: Digiting [address] [id number] BY: [employer] [place] [facility] LogicFormerly [facility], [facility] [id number] MCV (RBC) [Entitic vol] 92 fL Normal 79-97 [facility]; [facility] Work Phone: Comment on above: Test(s) 493583-AAG-K ; 554518-EQM-C; 697528-Jcdsacowqefxn; 294704-Gbmjyzhapcc, Total; 613451-PNN-A (Total); 987184-Yszuv LDL-P; 796644-TKY Size; 205676-BX-HA Scorewas developed and its performance characteristics determinedby [employer]. It has not been cleared or approved by the Foodand Drug Administration.PATIENT WAS FASTINGPERFORMED BY: Digiting [address] [id number] BY: Sidecar70 [employer] LabsFormerly [facility], [facility] [id number] Monocytes (Bld) [#/Vol] 0.6 10*3/uL Normal 0.1-0.9 [facility]; [facility] Work Phone: Comment on above: Test(s) 847342-GMX-E ; 023123-CLL-W; 608379-Eyfevtgmszenf; 928353-Pnhskqrlegb, Total; 092112-JKJ-J (Total); 975318-Qwacq LDL-P; 711850-ANC Size; 356478-NN-FH Scorewas developed and its performance characteristics determinedby [employer]. It has not been cleared or approved by the Foodand Drug Administration.PATIENT WAS FASTINGPERFORMED BY: Digiting [address] [id number] BY: [employer]6[address] [facility] [id number] Monocytes/100 WBC (Bld) 7 % Normal [facility]; [facility] Work Phone: Comment on above: Test(s) 581444-KHP-R ; 524031-FEY-D; 998039-Icensvygtifjs; 193586-Zcrlgnmoolt, Total; 500516-XIZ-M (Total); 163954-Xwlse LDL-P; 909976-RLV Size; 034884-ZO-TJ Scorewas developed and its performance characteristics determinedby [employer]. It has not been cleared or approved by the Foodand Drug Administration.PATIENT WAS FASTINGPERFORMED BY: Digiting [address] [id number] BY: [employer] Lsnvxr5459 [facility] [id number] Neutrophils (Bld) [#/Vol] 6.9 10*3/uL Normal 1.4-7.0 [facility]; [facility] Work Phone: Comment on above: Test(s) 890051-QUT-F ; 299718-JZW-M; 571489-Kcojaqshcazyl; 074644-Tvqbgxyelne, Total; 755600-APM-I (Total); 699573-Qtrwi LDL-P; 907868-CBB Size; 843895-DU-RK Scorewas developed and its performance characteristics determinedby [employer]. It has not been cleared or approved by the Foodand Drug Administration.PATIENT WAS FASTINGPERFORMED BY: Digiting [address] [id number] BY: [employer] Cwddjq7[address] [facility] [id number] Neutrophils/100 WBC (Bld) 72 % Normal [facility]; [facility] Work Phone: Comment on above: Test(s) 794637-ZGV-E ; 698662-MIG-R; 470105-Vhbelitjjtvmj; 997900-Wqnixwflfrs, Total; 988209-EPY-E (Total); 121479-Vgbgn LDL-P; 266905-YIV Size; 763151-UT-UA Scorewas developed and its performance characteristics determinedby [employer]. It has not been cleared or approved by the Foodand Drug Administration.PATIENT WAS FASTINGPERFORMED BY: SalesPredictton1447 [facility] [id number] BY: Startpack Yfrveq3546 [employer]it[employer] LabsFormerly [facility], [facility] [id number] Platelets (Bld) [#/Vol] 182 10*3/uL Normal 150-450 [facility]; [facility] Work Phone: Comment on above: Test(s) 430874-LPH-A ; 099200-PPY-P; 913607-Lmatjqznjpmls; 899342-Aaccvhnhibm, Total; 343869-CFV-E (Total); 761494-Njrcy LDL-P; 376893-CSO Size; 895744-HX-ET Scorewas developed and its performance characteristics determinedby [employer]. It has not been cleared or approved by the [employer] Drug Administration.PATIENT WAS FASTINGPERFORMED BY: SalesPredictton1447 [facility] [id number] BY: [employer]6[address] [place] [facility] LogicFormerly [facility], [facility] [id number] RBC (Bld) [#/Vol] 4.91 10*6/uL Normal 4.14-5.80 [facility]; [facility] Work Phone: Comment on above: Test(s) 938592-ORM-F ; 318660-PYY-X; 619922-Qrmgggegkwwzw; 923006-Xctzmqvqkne, Total; 949876-CCF-T (Total); 502145-Rynup LDL-P; 517160-DQI Size; 308142-QX-DW Scorewas developed and its performance characteristics determinedby [employer]. It has not been cleared or approved by the Foodand Drug Administration.PATIENT WAS FASTINGPERFORMED BY: Digiting Hurdgxcimv2713 [facility] [id number] BY: Hipsterlin6[address] [facility] [id number] WBC (Bld) [#/Vol] 9.6 10*3/uL Normal 3.4-10.8 [facility]; [facility] Work Phone: Comment on above: Test(s) 463447-RLV-U ; 554333-WRJ-S; 751862-Jwdgesmfniqzt; 402419-Wxjgsvluhya, Total; 934837-JPS-M (Total); 554341-Bekid LDL-P; 722022-FVH Size; 104502-RC-HK Scorewas developed and its performance characteristics determinedby [employer]. It has not been cleared or approved by the Foodand Drug Administration.PATIENT WAS FASTINGPERFORMED BY: BN [facility] Duujogvrls9974 [facility] [id number] BY: CB [facility] Npfzfg8[address] [facility] [id number] CR Spine Cervical Comp w/ Ob liques/Flexon 11-20-2020 CR Spine Cervical Comp w/ Obliques/Flex Patient Name: VISHAL CISNEROS Diagnostic Radiology ACCESSION EXAM DATE/TIME 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 [id number] 11/20/2020 12:03 EDT CR Spine Cervical Comp CHRISTINE TESFAYE w/ Obliques CPT code 69331 Reason For Exam (CR Spine Cervical Comp w/ Obliques) cervicalgia of occipito atlanto axial region Report COMPLETE CERVICAL SPINE History: Neck pain, limited range of motion Findings: Frontal, lateral, bilateral oblique, flexion, extension and open mouth views show mild degenerative spine changes with small marginal vertebral spurs. There is mild narrowing of C6-C7 disc space. The remaining cervical disc spaces are maintained. There is mild neural foramina narrowing at C3-C4 and C4-C5. The atlantoaxial alignment is unremarkable as shown. There is mild multilevel facet joint arthropathy. There is minimal anterior translation of C5 on C6 upon flexion. There is left convex curvature of the cervical dorsal spine junction. The cervical vertebral alignment is otherwise unremarkable. IMPRESSION: Spondylosis as described. Consider MRI which is more sensitive for further evaluation. Report Dictated on Final Dictating Physician: MD STOKES AHMAD Signed Date and Time: 11/24/2020 1:28 pm Signed by: MD STOKES AHMAD Transcribed Date and Time: 11/24/2020 1:29 Normal [facility] HGB A1C (12852)Ordered By: S ystem Senior Mobile Developer on 11-20-2020 HbA1c (Bld) [Mass fraction] 5.4 % Normal 4.8-5.6 [facility]; [facility] Work Phone: Comment on above: . Prediabetes: 5.7 - 6.4 Diabetes: >6.4 Glycemic control for adults with diabetes: <7.0 Test(s) 202829-QMM-T ; 119201-BHW-E; 001228-Kivgnkxfcbdrn; 540159-Qfkolwmmltb, Total; 692100-BGI-I (Total); 679519-Xhlal LDL-P; 240614-PMO Size; 327138-OF-LD Scorewas developed and its performance characteristics determinedby [employer]. It has not been cleared or approved by the Foodand Drug Administration.PATIENT WAS FASTINGPERFORMED BY: [employer] [facility] [id number] BY: Sidecar70 [employer] LabsFormerly [facility], [facility] [id number] METABOLIC PANEL, COMPREHENSI VE (05512)Ordered By: Switchboard Operator on 11-20-2020 Albumin [Mass/Vol] 4.5 g/dL Normal 3.8-4.8 [facility]; [facility] Work Phone: Comment on above: Test(s) 764470-ZSX-F ; 754125-YCO-X; 075276-Rwsfpaeqolftv; 144925-Fcbepvctgcq, Total; 558646-VXE-M (Total); 004985-Vqgzg LDL-P; 927622-KTX Size; 757396-WS-ZQ Scorewas developed and its performance characteristics determinedby [employer]. It has not been cleared or approved by the Foodand Drug Administration.PATIENT WAS FASTINGPERFORMED BY: [employer] [facility] [id number] BY: [employer] Systems6370 [employer] LabsFormerly [facility], [facility] [id number] Albumin/Globulin [Mass ratio] 1.9 {ratio} Normal 1.2-2.2 [facility]; [facility] Work Phone: Comment on above: Test(s) 096029-KXM-L ; 108130-EDC-A; 469567-Cmepvbnjeounz; 322678-Rjsgcrhcbdq, Total; 911023-JCR-R (Total); 015043-Qvlan LDL-P; 490365-NSR Size; 936249-BS-JF Scorewas developed and its performance characteristics determinedby [employer]. It has not been cleared or approved by the Foodand Drug Administration.PATIENT WAS FASTINGPERFORMED BY: Digiting [address] [id number] BY: Sidecar70 [facility] [id number] ALP [Catalytic activity/Vol] 128 U/L Abnormal 39-117 [facility]; [facility] Work Phone: Comment on above: Test(s) 421094-DRJ-S ; 187165-OES-R; 848181-Eevgjeicztyel; 983370-Fpodnmirrny, Total; 877462-FVR-P (Total); 180614-Etjwg LDL-P; 720923-UYU Size; 176832-CK-DB Scorewas developed and its performance characteristics determinedby [employer]. It has not been cleared or approved by the Foodand Drug Administration.PATIENT WAS FASTINGPERFORMED BY: Digiting [address] [id number] BY: Sidecar70 [facility] [id number] ALT [Catalytic activity/Vol] 36 U/L Normal 0-44 [facility]; [facility] Work Phone: Comment on above: Test(s) 831778-DNY-L ; 116451-QCZ-J; 880352-Yihjzhpdipbdb; 374643-Qkphsrfrvnl, Total; 631494-RFK-U (Total); 710359-Eikbl LDL-P; 370177-DKG Size; 116128-KK-HA Scorewas developed and its performance characteristics determinedby [employer]. It has not been cleared or approved by the Foodand Drug Administration.PATIENT WAS FASTINGPERFORMED BY: Digiting [address] [id number] BY: StartpackEssex County HospitalNzmtaa4784 [facility] [id number] AST [Catalytic activity/Vol] 27 U/L Normal 0-40 [facility]; [facility] Work Phone: Comment on above: Test(s) 936300-KUB-T ; 433660-YNZ-L; 732942-Wmuxdynsiraxm; 390733-Focqsdsqhhg, Total; 458642-JCV-P (Total); 152919-Rtsdf LDL-P; 067536-WSA Size; 798170-OJ-PQ Scorewas developed and its performance characteristics determinedby [employer]. It has not been cleared or approved by the Foodand Drug Administration.PATIENT WAS FASTINGPERFORMED BY: Digiting [address] [id number] BY: [employer]6370 [facility] [id number] Bilirubin [Mass/Vol] 0.3 mg/dL Normal 0.0-1.2 [facility]; [facility] Work Phone: Comment on above: Test(s) 500499-LDK-N ; 171962-LZM-A; 132305-Kazettgnnawdt; 469022-Cvyiswyotmp, Total; 789492-KRT-X (Total); 778049-Cfoeu LDL-P; 162589-BXI Size; 517958-TZ-PS Scorewas developed and its performance characteristics determinedby [employer]. It has not been cleared or approved by the Foodand Drug Administration.PATIENT WAS FASTINGPERFORMED BY: Carnad[address] [id number] BY: StartpackEssex County HospitalKztbhv6941 [facility] [id number] Calcium [Mass/Vol] 9.2 mg/dL Normal 8.6-10.2 [facility]; [facility] Work Phone: Comment on above: Test(s) 352997-WHU-J ; 241463-JSL-K; 593034-Fksliyjvxeghh; 187764-Jbgnamdvaza, Total; 321692-JYD-Z (Total); 362347-Bitce LDL-P; 782678-NES Size; 442456-GZ-LA Scorewas developed and its performance characteristics determinedby [employer]. It has not been cleared or approved by the Foodand Drug Administration.PATIENT WAS FASTINGPERFORMED BY: Digiting [address] [id number] BY: [employer] Systems6370 [employer] LabsFormerly [facility], [facility] [id number] Chloride [Moles/Vol] 106 mmol/L Normal 96-106 [facility]; [facility] Work Phone: Comment on above: Test(s) 297752-VPD-V ; 733916-NCR-X; 809778-Kashzxwpnymhh; 412651-Zejpieqnark, Total; 593169-YMG-L (Total); 035441-Gwvgm LDL-P; 688955-TNF Size; 542797-TQ-KF Scorewas developed and its performance characteristics determinedby [employer]. It has not been cleared or approved by the Foodand Drug Administration.PATIENT WAS FASTINGPERFORMED BY: Digiting [address] [id number] BY: [employer] Systems6370 [facility] [id number] CO2 [Moles/Vol] 24 mmol/L Normal 20-29 [facility]; [facility] Work Phone: Comment on above: Test(s) 629725-XVW-N ; 013044-ATS-W; 525689-Sjwycfnksioqk; 962823-Tjeyibwqhwv, Total; 926164-HMH-E (Total); 965160-Zhttl LDL-P; 049837-FTW Size; 496160-KG-HW Scorewas developed and its performance characteristics determinedby [employer]. It has not been cleared or approved by the Foodand Drug Administration.PATIENT WAS FASTINGPERFORMED BY: Digiting [address] [id number] BY: [employer] Systems6370 [employer] LabsFormerly [facility], [facility] [id number] Creatinine [Mass/Vol] 1.37 mg/dL Abnormal 0.76-1.27 [facility]; [facility] Work Phone: Comment on above: Test(s) 748942-QQR-Z ; 094845-LLN-R; 990237-Wjwqttabroeqe; 635314-Ryluogznwtn, Total; 750884-SPM-V (Total); 770415-Vghjn LDL-P; 338571-MKR Size; 243538-FI-QY Scorewas developed and its performance characteristics determinedby [employer]. It has not been cleared or approved by the Foodand Drug Administration.PATIENT WAS FASTINGPERFORMED BY: Digiting [address] [id number] BY: [employer] Goecrn400[address] [facility] [id number] GFR/1.73 sq M.predicted among blacks CKD-EPI (S/P/Bld) [Vol rate/Area] 62 mL/min/1.73 Normal [facility]; [facility] Work Phone: Comment on above: LabOutlisten currently reports eGFR in compliance with the current recommendations of the National [employer] Foundation. [employer] will update reporting as new guidelines are published from the NKF-ASN Task force. Test(s) 937254-SWL-H ; 965186-JWT-Y; 306195-Szvzyxlglnanw; 083000-Xdbpuixduih, Total; 644102-NJW-F (Total); 195804-Tsqfr LDL-P; 729236-HKP Size; 189327-SE-VI Scorewas developed and its performance characteristics determinedby [employer]. It has not been cleared or approved by the Foodand Drug Administration.PATIENT WAS FASTINGPERFORMED BY: Digiting [address] [id number] BY: [employer] Uufrlo[address] [facility] [id number] GFR/1.73 sq M.predicted among non-blacks CKD-EPI (S/P/Bld) [Vol rate/Area] 53 mL/min/1.73 Abnormal [facility]; [facility] Work Phone: Comment on above: Test(s) 771416-WQM-F ; 405092-QOH-Y; 098140-Vqnqcquslejyh; 376067-Nmryivybptl, Total; 641790-TYE-X (Total); 025668-Uotpu LDL-P; 727412-OCP Size; 385495-GD-LC Scorewas developed and its performance characteristics determinedby [employer]. It has not been cleared or approved by the Foodand Drug Administration.PATIENT WAS FASTINGPERFORMED BY: Digiting [address] [id number] BY: Sidecar[address] [facility] [id number] Globulin (S) [Mass/Vol] 2.4 g/dL Normal 1.5-4.5 [facility]; [facility] Work Phone: Comment on above: Test(s) 674917-HHL-T ; 105378-EMQ-Y; 696533-Kcsnlwfftiozz; 087465-Ockarbvcbjb, Total; 783913-IWN-B (Total); 691719-Qxodt LDL-P; 446246-QCS Size; 492080-OC-ZW Scorewas developed and its performance characteristics determinedby [employer]. It has not been cleared or approved by the Foodand Drug Administration.PATIENT WAS FASTINGPERFORMED BY: Digiting [address] [id number] BY: [employer] [facility] [id number] Glucose [Mass/Vol] 98 mg/dL Normal 65-99 [facility] Internal Medicine; [facility] Medicine Work Phone: Comment on above: Test(s) 856606-DVL-U ; 178852-UPM-V; 464890-Cinxwvsvmqqjv; 507079-Pxdjxpnnxzo, Total; 821433-LQE-G (Total); 768564-Rpocz LDL-P; 909863-GXK Size; 577731-FU-JO Scorewas developed and its performance characteristics determinedby [employer]. It has not been cleared or approved by the Foodand Drug Administration.PATIENT WAS FASTINGPERFORMED BY: Carnad[address] [id number] BY: Unilife CorporationAlbuquerque Indian Health CenterRlmric[address] VizibilityGranville Medical Center [id number] Potassium [Moles/Vol] 4.7 mmol/L Normal 3.5-5.2 [facility]; [facility] Work Phone: Comment on above: Test(s) 746059-JOV-Q ; 818501-VQD-E; 673338-Gydtdrvjffmwd; 267721-Vbdvrsmebvz, Total; 994472-UUX-K (Total); 522900-Clsre LDL-P; 483681-UMR Size; 959746-KC-AJ Scorewas developed and its performance characteristics determinedby [employer]. It has not been cleared or approved by the Foodand Drug Administration.PATIENT WAS FASTINGPERFORMED BY: Digiting [address] [id number] BY: [employer] Gttegu[address] [facility] [id number] Protein [Mass/Vol] 6.9 g/dL Normal 6.0-8.5 [facility]; [facility] Work Phone: Comment on above: Test(s) 567967-BTR-U ; 788354-KCL-G; 399858-Vyfttvsfwlvoo; 686048-Vuvqubottxt, Total; 722642-DYY-Q (Total); 217369-Uqlqv LDL-P; 930245-ZJQ Size; 099766-PV-SR Scorewas developed and its performance characteristics determinedby [employer]. It has not been cleared or approved by the Foodand Drug Administration.PATIENT WAS FASTINGPERFORMED BY: [employer] [id number] BY: Unilife CorporationEssex County HospitalEavhyi48[address] [facility] [id number] Sodium [Moles/Vol] 144 mmol/L Normal 134-144 [facility]; [facility] Work Phone: Comment on above: Test(s) 937049-YFW-B ; 663871-YRA-F; 177860-Imexrszmmhgxb; 373115-Zvxykmadqcr, Total; 433046-PCD-B (Total); 563841-Miefl LDL-P; 964924-LJK Size; 494458-VQ-HB Scorewas developed and its performance characteristics determinedby [employer]. It has not been cleared or approved by the Foodand Drug Administration.PATIENT WAS FASTINGPERFORMED BY: Digiting [address] [id number] BY: Sidecar[address] [facility] [id number] Urea nitrogen [Mass/Vol] 17 mg/dL Normal 8-27 [facility]; [facility] Work Phone: Comment on above: Test(s) 466252-HOJ-A ; 935826-EZR-J; 965159-Ankedpgnqzbfq; 365564-Pwhgmtwsdds, Total; 164807-ZES-D (Total); 957902-Balbj LDL-P; 568070-HTC Size; 643643-DG-PB Scorewas developed and its performance characteristics determinedby [employer]. It has not been cleared or approved by the Foodand Drug Administration.PATIENT WAS FASTINGPERFORMED BY: Digiting [address] [id number] BY: Sidecar[address] [facility] [id number] Urea nitrogen/Creatinine [Mass ratio] 12 mg/mg Normal 10-24 [facility]; [facility] Work Phone: Comment on above: Test(s) 430321-PST-S ; 536630-AWC-Q; 207116-Shyyyqjyqsrnm; 409297-Gjltyelixbz, Total; 320960-OLS-D (Total); 900906-Doqyt LDL-P; 619486-ITI Size; 934386-LT-XV Scorewas developed and its performance characteristics determinedby [employer]. It has not been cleared or approved by the Foodand Drug Administration.PATIENT WAS FASTINGPERFORMED BY: Digiting [address] [id number] BY: Sidecar[address] [facility] [id number] MICROALBUMINOrdered By: Syst em Senior Mobile Developer on 11-20-2020 Albumin DL <= 20 mg/L (U) [Mass/Vol] 8.2 ug/mL Normal Comprehensiv e Internal Medicine; [facility] Work Phone: Comment on above: Test(s) 478678-MFJ-E ; 583877-DYQ-H; 905542-Wcrrlljmvjxgy; 434069-Qcejyprsxki, Total; 711506-LFN-W (Total); 427445-Zczpl LDL-P; 331754-JAV Size; 969184-WL-LQ Scorewas developed and its performance characteristics determinedby [employer]. It has not been cleared or approved by the Foodand Drug Administration.PATIENT WAS FASTINGPERFORMED BY: SalesPredict[address] [id number] BY: [employer]6370 [facility] [id number] Albumin/Creatinine (U) [Mass ratio] 4 {mg/g_creat} Normal 0-29 [facility]; [facility] Work Phone: Comment on above: Normal: 0 - 29 Moder ately increased: 30 - 300 Severely increased: >300 Test(s) 428887-CCA-J ; 062804-KYL-F; 952403-Saltjtfiheyoi; 478669-Cadbjnzuqgy, Total; 073203-YVN-H (Total); 070019-Qvrxn LDL-P; 405414-SLV Size; 546024-JH-OJ Scorewas developed and its performance characteristics determinedby [employer]. It has not been cleared or approved by the Foodand Drug Administration.PATIENT WAS FASTINGPERFORMED BY: Digiting [address] [id number] BY: [employer] [facility] [id number] Creatinine (U) [Mass/Vol] 226.6 mg/dL Normal [facility]; [facility] Work Phone: Comment on above: Test(s) 227417-XGN-O ; 779394-QFI-O; 251246-Fvneilfhzuipj; 028851-Vvzfujjrzch, Total; 037790-XUW-S (Total); 316628-Umjvh LDL-P; 922836-OVD Size; 086360-FC-ZR Scorewas developed and its performance characteristics determinedby [employer]. It has not been cleared or approved by the Foodand Drug Administration.PATIENT WAS FASTINGPERFORMED BY: Digiting [address] [id number] BY: [employer] Itnptj6[address] [facility] [id number] NMR Profile (75687)Ordered B y: Switchboard Operator on 11-20-2020 Cholesterol [Mass/Vol] 156 mg/dL Normal 100-199 [facility]; [facility] Work Phone: Comment on above: Test(s) 844684-ZST-Q ; 095681-WWQ-F; 610894-Qpceaqccxltim; 837745-Mjpuopijhsk, Total; 907533-ECE-N (Total); 766327-Wlvjg LDL-P; 254963-UOV Size; 467601-MF-IQ Scorewas developed and its performance characteristics determinedby [employer]. It has not been cleared or approved by the Foodand Drug Administration.PATIENT WAS FASTINGPERFORMED BY: Digiting [address] [id number] BY: [employer] Wihfjy[address] [facility] [id number] Lipoprotein.alpha [Moles/Vol] 23.4 umol/L Abnormal [facility]; [facility] Work Phone: Comment on above: Test(s) 694682-PKV-Q ; 283023-QOF-J; 266074-Lscxtohnqyjyq; 350692-Uumzsuzvktm, Total; 486382-YWL-V (Total); 403187-Sgqvx LDL-P; 854965-UDX Size; 132426-UF-AZ Scorewas developed and its performance characteristics determinedby [employer]. It has not been cleared or approved by the Foodand Drug Administration.PATIENT WAS FASTINGPERFORMED BY: Digiting [address] [id number] BY: CAROLA Unilife CorporationEssex County HospitalEczzxs50[address] [facility] [id number] Lipoprotein.beta.sub particle [Entitic length] 19.8 nm Abnormal [facility]; [facility] Work Phone: Comment on above: INTERPRETATIVE INFORMATION PARTICLE CONCENTRATION AND SIZE <--Lower CVD Risk Higher CVD Risk--> LDL AND HDL PARTICLES Percentile in Reference Population HDL-P (total) High 75th 50th 25th Low >34.9 34.9 30.5 26.7 <26.7 . Small LDL-P Low 25th 50th 75th High <117 117 527 839 >839 . LDL Size <-Large (Pattern A)-> <-Small (Pattern B)-> 23.0 20.6 20.5 19.0 Small LDL-P and LDL Size are associated with CVD risk, but not afterLDL-P is taken into account. Test(s) 663341-XKK-Z ; 747843-WOU-L; 144710-Sbmfndmugqfkt; 171757-Dwklboxssxn, Total; 910978-BID-E (Total); 716318-Ukvmj LDL-P; 555503-CQT Size; 305955-TK-LB Scorewas developed and its performance characteristics determinedby [employer]. It has not been cleared or approved by the Foodand Drug Administration.PATIENT WAS FASTINGPERFORMED BY: BELLO Unilife CorporationBristol-Myers Squibb Children's HospitalFzvcotdyer8118 [facility] [id number] BY: CAROLA Unilife CorporationEssex County HospitalRnfjzq26[address] [facility] [id number] Lipoprotein.beta.sub particle [Moles/Vol] 1329 nmol/L Abnormal Comprehensi ve Internal [facility]; [facility] Work Phone: Comment on above: Low < 1000 Moderate 1000 - 1299 Borderline-High 1300 - 1599 High 1600 - 2000 Very High > 2000 Test(s) 276243-PLX-U ; 001352-ILH-I; 540259-Svpumgrajrzoa; 530534-Idngrnhqwhb, Total; 084528-IXC-X (Total); 677634-Optgt LDL-P; 091896-MPQ Size; 460455-OW-NQ Scorewas developed and its performance characteristics determinedby [employer]. It has not been cleared or approved by the Foodand Drug Administration.PATIENT WAS FASTINGPERFORMED BY: SalesPredict[address] [id number] BY: Sidecar70 [facility]assoftGr[facility]ville [facility] Center [id number] Lipoprotein.beta.sub particle.small [Moles/Vol] 1028 nmol/L Abnormal [facility] Internal Medicine; [facility] Medicine Work Phone: Comment on above: Test(s) 631978-FKP-R ; 062189-DYX-O; 700910-Ucmvjgeoblhpe; 425214-Cqzivwkeypa, Total; 028817-IOS-U (Total); 215713-Nsyyq LDL-P; 695994-ORW Size; 587401-ZQ-JI Scorewas developed and its performance characteristics determinedby [employer]. It has not been cleared or approved by the [employer] Drug Administration.PATIENT WAS FASTINGPERFORMED BY: SalesPredict[address] [id number] BY: Sidecar70 [place] VizibilityGranville Medical Center [id number] Triglyceride [Mass/Vol] 219 mg/dL Abnormal 0-149 [facility]; [facility] Work Phone: Comment on above: Test(s) 273262-IRC-L ; 320068-UDI-N; 990167-Nziluaohltbto; 108230-Cbkucwseflu, Total; 277215-ZJE-I (Total); 195336-Ektzf LDL-P; 380741-JIX Size; 172134-AA-PT Scorewas developed and its performance characteristics determinedby [employer]. It has not been cleared or approved by the Foodand Drug Administration.PATIENT WAS FASTINGPERFORMED BY: [employer] [id number] BY: Unilife CorporationEssex County HospitalPaoosk70[address] [facility] [id number] NMR Profile (68905) 91 mg/dL Normal 0-99 [facility] ehensive Internal Medicine; [facility] Work Phone: Comment on above: . Optimal < 100 Abov e optimal 100 - 129 Borderline 130 - 159 High 160 - 189 Very high > 189 . Test(s) 500583-VVU-V ; 680412-MOA-X; 769891-Cclkipmxqzvzt; 701932-Xxvgwmedici, Total; 378846-QQV-L (Total); 808493-Fdzpj LDL-P; 494928-AJY Size; 989669-LI-GA Scorewas developed and its performance characteristics determinedby [employer]. It has not been cleared or approved by the Foodand Drug Administration.PATIENT WAS FASTINGPERFORMED BY: Digiting [address] [id number] BY: [employer] Vabaqm84[address] [facility] [id number] NMR Profile (53023) 28 mg/dL Abnormal [facility]; [facility] Work Phone: Comment on above: Test(s) 328261-SNR-K ; 043442-WMW-F; 134092-Ztsayalybbaid; 985965-Ppevceeapfk, Total; 993726-QNT-A (Total); 185175-Zxmpa LDL-P; 004030-IOE Size; 619324-YQ-QZ Scorewas developed and its performance characteristics determinedby [employer]. It has not been cleared or approved by the Foodand Drug Administration.PATIENT WAS FASTINGPERFORMED BY: [employer] [id number] BY: Unilife CorporationEssex County HospitalRghukf5[address] [facility] [id number] NMR Profile (70079) 219 mg/dL Abnormal 0-149 Compr ehensive [facility] Medicine; [facility] Work Phone: NMR Profile (98268) 156 mg/dL Normal 100-199 Compr ensive [facility]; [facility] Work Phone: TSH (THYROID STIMULATING HOR [place]) (07275)Ordered By: Switchboard Operator on 11-20-2020 TSH Qn 2.010 {uIU/mL} Normal 0.450-4.50 0 [facility]; [facility] Work Phone: Comment on above: Test(s) 843841-QUY-B ; 896889-AEI-Z; 012143-Pkovvqxnirnlj; 940152-Akumvhszjpt, Total; 821071-JLX-Q (Total); 290554-Opikh LDL-P; 438502-DPW Size; 827968-NQ-YC Scorewas developed and its performance characteristics determinedby [employer]. It has not been cleared or approved by the Foodand Drug Administration.PATIENT WAS FASTINGPERFORMED BY: [facility] [address] [id number] BY: CB [facility] Vwbfaf[address] [facility] [id number] Blood Glucose , Office (8296 2)Ordered By: Stacy Jensen on 04-30-2020 Glucose Glucometer (BldC) [Moles/Vol] 95 1 Normal [facility] Work Phone: CALCIFEDIOL (52843)Ordered B y: Switchboard Operator on 04-30-2020 25-Hydroxyvitamin D2+25-Hydroxyvitamin D3 [Mass/Vol] 47.7 ng/mL Normal 30.0-100.0 [facility]; [facility] Work Phone: Comment on above: Vitamin D deficiency has been defined by the [place] ofMedicine and an Endocrine Society practice guideline as alevel of serum 25-OH vitamin D less than 20 ng/mL (1,2).The Endocrine Society went on to further define vitamin Dinsufficiency as a level between 21 and 29 ng/mL (2).1. IOM ([place] of Medicine). 2010. Dietary reference intakes for calcium and D. [place]: The National Academies Press.2. Rayna MF, Ana Luisa HASSAN, William CUBA, et al. Evaluation, treatment, and prevention of vitamin D deficiency: an Endocrine Society clinical practice guideline. JCEM. 2010; 96(7):1911-30. Test(s) 872238-KKO-I ; 457849-SOD-R; 114007-Atiehhiwgqmtr; 114381-Kllskpvzmec, Total; 578470-FXA-C (Total); 439776-Yklde LDL-P; 738490-KCX Size; 139015-FB-CB Scorewas developed and its performance characteristics determinedby [employer]. It has not been cleared or approved by the Foodand Drug Administration.PATIENT WAS FASTINGPERFORMED BY: SalesPredict[address] [id number] BY: Sidecar70 CompassoftGranville Medical Center [id number] CBC W/AUTO DIFF WBC (98816)O rdered By: Switchboard Operator on 04-30-2020 Basophils (Bld) [#/Vol] 0.1 {x10E3/uL} Normal 0.0-0.2 [facility]; [facility] Work Phone: Comment on above: Test(s) 514176-ERO-F ; 170719-FET-A; 682028-Ypoivpyfqldme; 941421-Gafoxhfojrq, Total; 513294-HEY-X (Total); 457699-Yimyk LDL-P; 729261-ZUY Size; 777095-BW-NN Scorewas developed and its performance characteristics determinedby [employer]. It has not been cleared or approved by the Foodand Drug Administration.PATIENT WAS FASTINGPERFORMED BY: Digiting [address] [id number] BY: Sidecar70 [facility]assoftGranville [facility] Center [id number] Basophils (Bld) [#/Vol] 0.1 10*3/uL Normal 0.0-0.2 [facility]; [facility] Work Phone: Comment on above: Test(s) 977136-JOC-X ; 885208-XVM-Z; 959337-Fovrimyyjjppy; 443043-Wjxxiavwtyg, Total; 837278-JXR-W (Total); 677604-Dqanz LDL-P; 176850-ZOY Size; 087638-ZE-RM Scorewas developed and its performance characteristics determinedby [employer]. It has not been cleared or approved by the Foodand Drug Administration.PATIENT WAS FASTINGPERFORMED BY: Digiting [address] [id number] BY: Sidecar70 [facility] LabsFormerly [facility] [id number] Basophils/100 WBC (Bld) 1 % Normal [facility]; [facility] Work Phone: Comment on above: Test(s) 606448-RTK-K ; 420847-AVN-L; 084605-Ysegrgxhqeljk; 344651-Mdodeavpnvn, Total; 307740-POF-J (Total); 471410-Mqecr LDL-P; 124970-LFN Size; 786386-VT-AO Scorewas developed and its performance characteristics determinedby [employer]. It has not been cleared or approved by the [employer] Drug Administration.PATIENT WAS FASTINGPERFORMED BY: Digiting [address] [id number] BY: Sidecar70 [employer] LabsFormerly [facility] [id number] Eosinophils (Bld) [#/Vol] 0.1 {x10E3/uL} Normal 0.0-0.4 [facility]; [facility] Work Phone: Comment on above: Test(s) 679715-ZKO-A ; 043435-OKJ-L; 679450-Fzftpnczisspv; 039128-Lidpqxshygd, Total; 325786-UYO-M (Total); 857515-Kvgfj LDL-P; 822216-LOW Size; 494939-GK-FE Scorewas developed and its performance characteristics determinedby [employer]. It has not been cleared or approved by the Foodand Drug Administration.PATIENT WAS FASTINGPERFORMED BY: Digiting [address] [id number] BY: Sidecar70 [employer] LabsFormerly [facility] [id number] Eosinophils (Bld) [#/Vol] 0.1 10*3/uL Normal 0.0-0.4 [facility]; [facility] Work Phone: Comment on above: Test(s) 445172-KKQ-M ; 349901-MCK-X; 264713-Jvvjzmzdhpapj; 878914-Rmviilfpiqk, Total; 916331-GRY-N (Total); 867189-Frcjn LDL-P; 520728-OZY Size; 234695-KK-MD Scorewas developed and its performance characteristics determinedby [employer]. It has not been cleared or approved by the Foodand Drug Administration.PATIENT WAS FASTINGPERFORMED BY: SalesPredict[address] [id number] BY: [employer] Systems6370 [facility]ur LabsFormerly [facility] [id number] Eosinophils/100 WBC (Bld) 1 % Normal [facility]; [facility] Work Phone: Comment on above: Test(s) 052119-BLJ-U ; 194813-ANH-W; 258627-Mqsymhqfehmow; 287064-Uyxmnxulhvb, Total; 503242-JWA-R (Total); 541197-Xnrqk LDL-P; 010711-PTT Size; 637225-XC-XF Scorewas developed and its performance characteristics determinedby [employer]. It has not been cleared or approved by the Foodand Drug Administration.PATIENT WAS FASTINGPERFORMED BY: Digiting [address] [id number] BY: [employer] Systems6370 ClaytonBarton County Memorial HospitalD'Shane ServicesFormerly [facility], [facility] [id number] Erythrocyte distribution width (RBC) [Ratio] 12.5 % Normal 11.6-15.4 [facility]; [facility] Work Phone: Comment on above: Test(s) 963722-KJZ-S ; 674020-UYT-V; 398321-Dfnnwsedvtjmp; 030980-Qteipzrrirj, Total; 235018-HVF-C (Total); 475352-Uwavv LDL-P; 273324-HDN Size; 545181-VM-KT Scorewas developed and its performance characteristics determinedby [employer]. It has not been cleared or approved by the Foodand Drug Administration.PATIENT WAS FASTINGPERFORMED BY: Carnad[address] [id number] BY: [employer] Yzhawr[address] [facility] [id number] Hematocrit (Bld) [Volume fraction] 44.9 % Normal 37.5-51.0 [facility]; [facility] Work Phone: Comment on above: Test(s) 940304-OWM-W ; 566903-QSQ-P; 731325-Iorhupbuemvbh; 252130-Rkitnjjjxbu, Total; 310123-WTI-M (Total); 990443-Bmddp LDL-P; 880242-JXG Size; 844636-NS-IV Scorewas developed and its performance characteristics determinedby [employer]. It has not been cleared or approved by the Foodand Drug Administration.PATIENT WAS FASTINGPERFORMED BY: Digiting [address] [id number] BY: [employer] [facility] [id number] Hemoglobin (Bld) [Mass/Vol] 15.4 g/dL Normal 13.0-17.7 [facility]; [facility] Work Phone: Comment on above: Test(s) 924377-KUR-I ; 702382-ASS-H; 738504-Xovpzxwdvzult; 538282-Lhircjaydqe, Total; 750118-AYH-S (Total); 258422-Halyz LDL-P; 882349-YMN Size; 259323-JI-XA Scorewas developed and its performance characteristics determinedby [employer]. It has not been cleared or approved by the Foodand Drug Administration.PATIENT WAS FASTINGPERFORMED BY: Carnad[address] [id number] BY: Hipsterlin6[address] [facility] [id number] Immature granulocytes (Bld) [#/Vol] 0.1 {x10E3/uL} Normal 0.0-0.1 [facility]; [facility] Work Phone: Comment on above: Test(s) 728856-YXQ-L ; 651278-POB-G; 875469-Grpywrulphrfy; 737756-Mlbehjrqnio, Total; 062424-IKL-Y (Total); 265154-Vhvoi LDL-P; 130001-NYZ Size; 762791-OM-UR Scorewas developed and its performance characteristics determinedby [employer]. It has not been cleared or approved by the Foodand Drug Administration.PATIENT WAS FASTINGPERFORMED BY: Digiting [address] [id number] BY: Backplane Man [facility] [id number] Immature granulocytes (Bld) [#/Vol] 0.1 10*3/uL Normal 0.0-0.1 [facility]; [facility] Work Phone: Comment on above: Test(s) 765584-DZH-N ; 555924-JID-L; 658033-Zdsarlyplxivt; 189805-Ymlmxyjrktn, Total; 472810-AKR-S (Total); 755074-Jynwa LDL-P; 645458-AJC Size; 573520-OB-JH Scorewas developed and its performance characteristics determinedby [employer]. It has not been cleared or approved by the Foodand Drug Administration.PATIENT WAS FASTINGPERFORMED BY: Digiting [address] [id number] BY: [employer]6370 [facility] [id number] Immature granulocytes/100 WBC (Bld) 1 % Normal [facility]; [facility] Work Phone: Comment on above: Test(s) 781703-IHH-Q ; 057049-PKG-O; 342556-Ifxncwpvkkuwl; 438678-Ubsotumrbxs, Total; 563112-KXX-Y (Total); 471314-Eziws LDL-P; 208823-AWG Size; 424769-KR-QO Scorewas developed and its performance characteristics determinedby [employer]. It has not been cleared or approved by the Foodand Drug Administration.PATIENT WAS FASTINGPERFORMED BY: [employer] [address] [id number] BY: Unilife CorporationEssex County HospitalSvdsxn33[address] [facility] [id number] Lymphocytes (Bld) [#/Vol] 1.4 {x10E3/uL} Normal 0.7-3.1 [facility]; [facility] Work Phone: Comment on above: Test(s) 552691-VUB-N ; 563660-NPJ-U; 909787-Uknqdhyljyzla; 281577-Ujxdfzpkqyi, Total; 278594-RJP-W (Total); 678244-Zizwf LDL-P; 792425-SPM Size; 486361-BM-AZ Scorewas developed and its performance characteristics determinedby [employer]. It has not been cleared or approved by the Foodand Drug Administration.PATIENT WAS FASTINGPERFORMED BY: Digiting [address] [id number] BY: [employer] Kyrmln[address] [facility] [id number] Lymphocytes (Bld) [#/Vol] 1.4 10*3/uL Normal 0.7-3.1 [facility]; [facility] Work Phone: Comment on above: Test(s) 065818-TZT-F ; 785077-XGC-H; 240349-Cluukqereoknc; 929540-Uytlxgnekvc, Total; 208081-EYG-X (Total); 428196-Neefj LDL-P; 424539-EHR Size; 044830-SY-HN Scorewas developed and its performance characteristics determinedby [employer]. It has not been cleared or approved by the Foodand Drug Administration.PATIENT WAS FASTINGPERFORMED BY: Digiting [address] [id number] BY: [employer] Qihsea[address] [facility] [id number] Lymphocytes/100 WBC (Bld) 17 % Normal [facility]; [facility] Work Phone: Comment on above: Test(s) 598937-RQY-N ; 243846-ECS-K; 411145-Iwwniuvlrrcuh; 574863-Srkwhgvbeye, Total; 830551-EEL-S (Total); 285028-Crlxm LDL-P; 631047-SGP Size; 551984-QI-HF Scorewas developed and its performance characteristics determinedby [employer]. It has not been cleared or approved by the Foodand Drug Administration.PATIENT WAS FASTINGPERFORMED BY: [employer] [address] [id number] BY: [employer] [facility] [id number] MCH (RBC) [Entitic mass] 31.9 pg Normal 26.6-33.0 [facility]; [facility] Work Phone: Comment on above: Test(s) 766304-GZO-U ; 922775-UZY-Z; 581684-Yatfxndiitsjd; 712784-Koqaxkvvoyx, Total; 015709-LWZ-Q (Total); 006255-Aykoq LDL-P; 944516-UJY Size; 320864-PV-YG Scorewas developed and its performance characteristics determinedby [employer]. It has not been cleared or approved by the Foodand Drug Administration.PATIENT WAS FASTINGPERFORMED BY: [employer] [address] [id number] BY: [employer] Upvyme[address] [facility] [id number] MCHC (RBC) [Mass/Vol] 34.3 g/dL Normal 31.5-35.7 [facility]; [facility] Work Phone: Comment on above: Test(s) 489355-JBO-H ; 757133-PNI-L; 945305-Fouwztubthlor; 531809-Jgmnnlojrsk, Total; 410179-QKM-S (Total); 203224-Zmqzq LDL-P; 148739-BQP Size; 619074-LS-EV Scorewas developed and its performance characteristics determinedby [employer]. It has not been cleared or approved by the Foodand Drug Administration.PATIENT WAS FASTINGPERFORMED BY: Digiting [address] [id number] BY: Sidecar70 [facility] LabsFormerly [facility] [id number] MCV (RBC) [Entitic vol] 93 fL Normal 79-97 [facility]; [facility] Work Phone: Comment on above: Test(s) 329789-PKR-P ; 285163-WAH-V; 647813-Otdolnbzhiovb; 877234-Cksyquolazy, Total; 179408-GAN-R (Total); 368710-Veelj LDL-P; 212930-LUA Size; 949995-YH-IS Scorewas developed and its performance characteristics determinedby [employer]. It has not been cleared or approved by the Foodand Drug Administration.PATIENT WAS FASTINGPERFORMED BY: SalesPredict[address] [id number] BY: Sidecar70 [facility] LabsFormerly [facility] [id number] Monocytes (Bld) [#/Vol] 0.6 {x10E3/uL} Normal 0.1-0.9 [facility]; [facility] Work Phone: Comment on above: Test(s) 736155-VDP-P ; 810939-PYJ-P; 105929-Lbjyckcvftxnu; 781913-Pzshuhjcaxo, Total; 658336-JJB-G (Total); 689577-Ufzvc LDL-P; 333010-UUZ Size; 401137-CV-UC Scorewas developed and its performance characteristics determinedby [employer]. It has not been cleared or approved by the Foodand Drug Administration.PATIENT WAS FASTINGPERFORMED BY: Digiting [address] [id number] BY: Hipsterlin[address] [facility] [id number] Monocytes (Bld) [#/Vol] 0.6 10*3/uL Normal 0.1-0.9 [facility]; [facility] Work Phone: Comment on above: Test(s) 586410-FJX-V ; 329284-IVT-L; 080072-Zdfztgiheztgg; 975701-Cdcbfpvzhop, Total; 045608-STB-C (Total); 014771-Szznu LDL-P; 243630-BBP Size; 190798-SJ-UQ Scorewas developed and its performance characteristics determinedby [employer]. It has not been cleared or approved by the Foodand Drug Administration.PATIENT WAS FASTINGPERFORMED BY: Digiting [address] [id number] BY: [employer] Hylwpx[address] [facility] [id number] Monocytes/100 WBC (Bld) 7 % Normal [facility]; [facility] Work Phone: Comment on above: Test(s) 511062-NHX-K ; 645627-DGX-O; 965790-Lpkjrjnpjgnio; 200902-Dtlsgaslxle, Total; 335787-UYB-H (Total); 370778-Jcrgv LDL-P; 336542-ZJI Size; 774185-EZ-DE Scorewas developed and its performance characteristics determinedby [employer]. It has not been cleared or approved by the Foodand Drug Administration.PATIENT WAS FASTINGPERFORMED BY: Digiting [address] [id number] BY: [employer] Irghau[address] [facility] [id number] Neutrophils (Bld) [#/Vol] 6.2 {x10E3/uL} Normal 1.4-7.0 [facility]; [facility] Work Phone: Comment on above: Test(s) 312975-HAV-M ; 486561-PDU-S; 764177-Ryiinvxjzkcnp; 985211-Tvzwisrqdkz, Total; 447595-ARZ-H (Total); 403990-Dqono LDL-P; 844450-PTT Size; 687267-SL-WE Scorewas developed and its performance characteristics determinedby [employer]. It has not been cleared or approved by the Foodand Drug Administration.PATIENT WAS FASTINGPERFORMED BY: Digiting [address] [id number] BY: Unilife CorporationEssex County HospitalFdrrla8[address] [facility] [id number] Neutrophils (Bld) [#/Vol] 6.2 10*3/uL Normal 1.4-7.0 [facility]; [facility] Work Phone: Comment on above: Test(s) 724833-YUK-J ; 442185-ZPL-T; 646677-Fppuqqovhzrfj; 529311-Yduebtbuzbp, Total; 703938-JXL-S (Total); 574044-Yeqxw LDL-P; 900147-BOY Size; 072927-AT-IS Scorewas developed and its performance characteristics determinedby [employer]. It has not been cleared or approved by the Foodand Drug Administration.PATIENT WAS FASTINGPERFORMED BY: Digiting [address] [id number] BY: [employer] [id number] Neutrophils/100 WBC (Bld) 73 % Normal [facility]; [facility] Work Phone: Comment on above: Test(s) 514302-FSS-N ; 781625-SYL-C; 942135-Whuaxpvfmcxcr; 877137-Nrrlkqbctbs, Total; 794424-SXF-O (Total); 912425-Fzzvt LDL-P; 926784-UTE Size; 636016-HZ-AJ Scorewas developed and its performance characteristics determinedby [employer]. It has not been cleared or approved by the Foodand Drug Administration.PATIENT WAS FASTINGPERFORMED BY: [employer] Corporation[address] [id number] BY: Unilife CorporationEssex County HospitalCbarua8[address] [facility] [id number] Platelets (Bld) [#/Vol] 158 {x10E3/uL} Normal 150-450 [facility]; [facility] Work Phone: Comment on above: Test(s) 023813-RDJ-A ; 747155-FHY-D; 868229-Oxuinfukxegnf; 840751-Qcnbxkbxnjw, Total; 635477-ZCS-W (Total); 068174-Hkonr LDL-P; 160143-UNP Size; 719436-KS-UH Scorewas developed and its performance characteristics determinedby [employer]. It has not been cleared or approved by the Foodand Drug Administration.PATIENT WAS FASTINGPERFORMED BY: Digiting [address] [id number] BY: [employer] Systems6370 [facility] LabsFormerly [facility] [id number] Platelets (Bld) [#/Vol] 158 10*3/uL Normal 150-450 [facility]; [facility] Work Phone: Comment on above: Test(s) 744492-KTH-Q ; 254295-QCO-C; 668700-Iwqpipfdpwujq; 390067-Gmrozmbxblk, Total; 297711-LET-J (Total); 047529-Bylnz LDL-P; 452828-QLY Size; 798771-ZD-FW Scorewas developed and its performance characteristics determinedby [employer]. It has not been cleared or approved by the Foodand Drug Administration.PATIENT WAS FASTINGPERFORMED BY: SalesPredict[address] [id number] BY: Sidecar70 [facility] LabsFormerly [facility] [id number] RBC (Bld) [#/Vol] 4.83 {x10E6/uL} Normal 4.14-5.80 [facility]; [facility] Work Phone: Comment on above: Test(s) 822675-MEA-P ; 772244-QWT-B; 062228-Lqsbsautspsrs; 654573-Ovempaoeuue, Total; 235561-RHZ-D (Total); 040615-Tooif LDL-P; 423109-JSH Size; 461674-MW-QS Scorewas developed and its performance characteristics determinedby [employer]. It has not been cleared or approved by the Foodand Drug Administration.PATIENT WAS FASTINGPERFORMED BY: Digiting [address] [id number] BY: Sidecar[address] [facility] [id number] RBC (Bld) [#/Vol] 4.83 10*6/uL Normal 4.14-5.80 [facility] ehensive Internal Medicine; [facility] Work Phone: Comment on above: Test(s) 442774-ITG-Q ; 496561-ISV-L; 379137-Rlnmitququugy; 833651-Rtpnsfclybr, Total; 990785-DWV-R (Total); 724430-Ossyx LDL-P; 628637-VNC Size; 365980-SH-TE Scorewas developed and its performance characteristics determinedby [employer]. It has not been cleared or approved by the Foodand Drug Administration.PATIENT WAS FASTINGPERFORMED BY: SalesPredict[address] [id number] BY: [employer] [id number] WBC (Bld) [#/Vol] 8.5 {x10E3/uL} Normal 3.4-10.8 [facility]; [facility] Work Phone: Comment on above: Test(s) 396888-UEF-P ; 686384-ISI-D; 468038-Culenrcekkhyq; 222355-Acsfnbmmxzd, Total; 379892-OJS-W (Total); 530639-Ltzhx LDL-P; 645966-UBV Size; 660075-BL-GX Scorewas developed and its performance characteristics determinedby [employer]. It has not been cleared or approved by the Foodand Drug Administration.PATIENT WAS FASTINGPERFORMED BY: Digiting [address] [id number] BY: [employer] [id number] WBC (Bld) [#/Vol] 8.5 10*3/uL Normal 3.4-10.8 [facility]; [facility] Work Phone: Comment on above: Test(s) 981521-VVH-W ; 092424-MZV-S; 614506-Puzfzwvbonckr; 477244-Ommhrayokqm, Total; 273168-QCA-B (Total); 644839-Nwynb LDL-P; 185372-HCG Size; 622846-EU-TI Scorewas developed and its performance characteristics determinedby [employer]. It has not been cleared or approved by the Foodand Drug Administration.PATIENT WAS FASTINGPERFORMED BY: Digiting [address] [id number] BY: [employer] [id number] HgA1C , Office ([phone])Ordere d By: Stacy Jensen on 04-30-2020 HbA1c (Bld) [Mass fraction] 5.4 % Normal 4.6 - 7.1 [facility] Work Phone: METABOLIC PANEL, COMPREHENSI VE ([phone])Ordered By: Switchboard Operator on 04-30-2020 Albumin [Mass/Vol] 4.5 g/dL Normal 3.8-4.8 [facility]; [facility] Work Phone: Comment on above: Test(s) 741514-JYQ-C ; 254437-CQS-E; 408417-Orvrbkdywtlzx; 942525-Usqjfociidn, Total; 079944-DRW-V (Total); 496127-Hvfen LDL-P; 676499-YAH Size; 220218-KC-UW Scorewas developed and its performance characteristics determinedby [employer]. It has not been cleared or approved by the Foodand Drug Administration.PATIENT WAS FASTINGPERFORMED BY: Digiting [address] [id number] BY: [employer] [id number] Albumin/Globulin [Mass ratio] 1.7 {ratio} Normal 1.2-2.2 [facility]; [facility] Work Phone: Comment on above: Test(s) 243584-TUM-Q ; 254298-PUA-T; 088866-Ujaiuialmdgnc; 310381-Tzdygybwyuv, Total; 995448-YTK-F (Total); 600370-Bawqs LDL-P; 253085-AMV Size; 590062-KH-LA Scorewas developed and its performance characteristics determinedby [employer]. It has not been cleared or approved by the Foodand Drug Administration.PATIENT WAS FASTINGPERFORMED BY: [employer] [id number] BY: Unilife CorporationEssex County HospitalKkgoih01[address] [facility] [id number] ALP [Catalytic activity/Vol] 145 [iU]/L Abnormal 39-117 [facility]; [facility] Work Phone: Comment on above: Test(s) 582800-BWZ-A ; 475616-PRB-J; 504237-Nwtchtyldafpg; 546182-Slbzaobpbfq, Total; 244977-XPA-F (Total); 450204-Jdfkv LDL-P; 522133-NJK Size; 831672-SW-QM Scorewas developed and its performance characteristics determinedby [employer]. It has not been cleared or approved by the Foodand Drug Administration.PATIENT WAS FASTINGPERFORMED BY: Digiting [address] [id number] BY: [employer] [id number] ALP [Catalytic activity/Vol] 145 U/L Abnormal 39-117 [facility]; [facility] Work Phone: Comment on above: Test(s) 911760-OBD-F ; 412197-HTB-W; 791759-Jjmaoafxijvnx; 161433-Xtmivyeyjus, Total; 989234-VYO-L (Total); 811658-Qfacs LDL-P; 000092-RJV Size; 609459-QW-MG Scorewas developed and its performance characteristics determinedby [employer]. It has not been cleared or approved by the Foodand Drug Administration.PATIENT WAS FASTINGPERFORMED BY: [employer] [id number] BY: StartpackEssex County HospitalRpytgr80[address] [facility] [id number] ALT [Catalytic activity/Vol] 31 [iU]/L Normal 0-44 [facility]; [facility] Work Phone: Comment on above: Test(s) 741061-RZP-K ; 040743-GWV-F; 701377-Pfjogbhtdxpuc; 314999-Uhkusqjqhku, Total; 204443-BER-F (Total); 978943-Wqjbe LDL-P; 789684-MRB Size; 484346-YC-MC Scorewas developed and its performance characteristics determinedby [employer]. It has not been cleared or approved by the Foodand Drug Administration.PATIENT WAS FASTINGPERFORMED BY: Digiting [address] [id number] BY: Sidecar[address] [facility] [id number] ALT [Catalytic activity/Vol] 31 U/L Normal 0-44 [facility]; [facility] Work Phone: Comment on above: Test(s) 941668-TPY-G ; 403548-MJA-K; 434690-Etmzhnkvgbfny; 630127-Gaglvvaqtfs, Total; 233979-SFL-D (Total); 046642-Yayml LDL-P; 756965-EHP Size; 776642-IA-ZB Scorewas developed and its performance characteristics determinedby [employer]. It has not been cleared or approved by the Foodand Drug Administration.PATIENT WAS FASTINGPERFORMED BY: Digiting [address] [id number] BY: [employer] Sczbvk224[address] [id number] AST [Catalytic activity/Vol] 29 [iU]/L Normal 0-40 [facility]; [facility] Work Phone: Comment on above: Test(s) 137052-OHF-U ; 222218-VSM-N; 976359-Jzphwojgqvcbr; 310319-Rtwtkreejrk, Total; 325952-LAZ-D (Total); 888049-Vnasm LDL-P; 562608-LBK Size; 087972-YT-RC Scorewas developed and its performance characteristics determinedby [employer]. It has not been cleared or approved by the Foodand Drug Administration.PATIENT WAS FASTINGPERFORMED BY: BN [employer]Co[address] [id number] BY: StartpackAlbuquerque Indian Health CenterJgzbuq60[address] [id number] AST [Catalytic activity/Vol] 29 U/L Normal 0-40 [facility]; [facility] Work Phone: Comment on above: Test(s) 411086-OOB-Z ; 657740-JPJ-Y; 982853-Arowjgokpdiyo; 622686-Zrtmoqlytcf, Total; 519664-RNS-W (Total); 815473-Uhkwy LDL-P; 717258-YPB Size; 008331-UM-WE Scorewas developed and its performance characteristics determinedby [employer]. It has not been cleared or approved by the Foodand Drug Administration.PATIENT WAS FASTINGPERFORMED BY: Digiting [address] [id number] BY: [employer] [id number] Bilirubin [Mass/Vol] 0.2 mg/dL Normal 0.0-1.2 [facility]; [facility] Work Phone: Comment on above: Test(s) 018762-LUS-N ; 103981-GDN-D; 836902-Ryfaxernbrndf; 329806-Kezhbbwrmmh, Total; 982765-ZPK-N (Total); 052478-Mufuu LDL-P; 082866-ZSQ Size; 451458-AC-XP Scorewas developed and its performance characteristics determinedby [employer]. It has not been cleared or approved by the Foodand Drug Administration.PATIENT WAS FASTINGPERFORMED BY: Carnad[address] [id number] BY: StartpackEssex County HospitalNeelah55[address] [facility] [id number] Calcium [Mass/Vol] 9.1 mg/dL Normal 8.6-10.2 [facility]; [facility] Work Phone: Comment on above: Test(s) 846951-MZR-I ; 968606-IKN-X; 302563-Vcfmmvlistrel; 906134-Hzsgrtpmzpr, Total; 663657-JBD-L (Total); 281406-Rjrwm LDL-P; 746134-OQO Size; 684974-NR-BM Scorewas developed and its performance characteristics determinedby [employer]. It has not been cleared or approved by the Foodand Drug Administration.PATIENT WAS FASTINGPERFORMED BY: Digiting [address] [id number] BY: [employer] Yklugf0351 [place] V[facility]ibilityGr[facility] Medical Center [id number] Chloride [Moles/Vol] 107 mmol/L Abnormal 96-106 [facility]; [facility] Work Phone: Comment on above: Test(s) 756946-WCK-Z ; 148760-EZL-O; 483804-Ktpgwcsalpwfj; 681372-Wntjpklcryq, Total; 270280-AEA-A (Total); 368257-Yyynr LDL-P; 840149-WVD Size; 820781-RK-YV Scorewas developed and its performance characteristics determinedby [employer]. It has not been cleared or approved by the Foodand Drug Administration.PATIENT WAS FASTINGPERFORMED BY: Digiting [address] [id number] BY: [employer] Systems6370 [facility] [id number] CO2 [Moles/Vol] 21 mmol/L Normal 20-29 [facility]; [facility] Work Phone: Comment on above: Test(s) 979710-SEO-J ; 689946-IIN-G; 652386-Ipacsxwdzvboe; 478105-Smxchwsnmwk, Total; 067277-DND-T (Total); 261247-Hvsop LDL-P; 948002-YCJ Size; 514149-LW-WE Scorewas developed and its performance characteristics determinedby [employer]. It has not been cleared or approved by the Foodand Drug Administration.PATIENT WAS FASTINGPERFORMED BY: Digiting [address] [id number] BY: Hipsterlin[address] [facility] [address] [id number] Creatinine [Mass/Vol] 1.37 mg/dL Abnormal 0.76-1.27 [facility]; [facility] Work Phone: Comment on above: Test(s) 969723-SAW-E ; 384377-PLE-Z; 120119-Yphuhdyceuruz; 356120-Gpqrstdzddk, Total; 645997-LXQ-Q (Total); 128496-Exfur LDL-P; 867135-WMY Size; 289335-RU-OL Scorewas developed and its performance characteristics determinedby [employer]. It has not been cleared or approved by the Foodand Drug Administration.PATIENT WAS FASTINGPERFORMED BY: Digiting [address] [id number] BY: [employer] Irtdcb97[address] [facility] [id number] GFR/1.73 sq M predicted among blacks CKD-EPI (S/P/Bld) [Vol rate/Area] 62 mL/min/1.73 Normal [facility]; [facility] Work Phone: Comment on above: Test(s) 337535-QTY-C ; 383192-FNQ-B; 540967-Qzhgvihmnabsl; 194071-Xqfbyhkyscj, Total; 312387-PYX-P (Total); 115542-Ryiwo LDL-P; 155511-HBR Size; 593609-QM-KV Scorewas developed and its performance characteristics determinedby [employer]. It has not been cleared or approved by the Foodand Drug Administration.PATIENT WAS FASTINGPERFORMED BY: Digiting [address] [id number] BY: Unilife CorporationEssex County HospitalGxsfog23[address] [facility] [id number] GFR/1.73 sq M predicted among non-blacks CKD-EPI (S/P/Bld) [Vol rate/Area] 53 mL/min/1.73 Abnormal [facility]; [facility] Work Phone: Comment on above: Test(s) 946641-VRA-S ; 804337-RPY-M; 820582-Fvdkkewyplnej; 386165-Qwdvytalyab, Total; 009458-SLB-E (Total); 777713-Lbusy LDL-P; 604389-AGX Size; 922491-DH-RV Scorewas developed and its performance characteristics determinedby [employer]. It has not been cleared or approved by the Foodand Drug Administration.PATIENT WAS FASTINGPERFORMED BY: SalesPredict[address] [id number] BY: Sidecar[address] [facility] [id number] Globulin (S) [Mass/Vol] 2.6 g/dL Normal 1.5-4.5 [facility] Internal Medicine; [facility] Work Phone: Comment on above: Test(s) 538651-LCO-B ; 563253-PAF-Q; 134194-Nywgdjhqcewdq; 666639-Qniiegepjhi, Total; 366790-SOE-B (Total); 939878-Pddts LDL-P; 711340-HHP Size; 517362-DQ-ZO Scorewas developed and its performance characteristics determinedby [employer]. It has not been cleared or approved by the Foodand Drug Administration.PATIENT WAS FASTINGPERFORMED BY: SalesPredict[address] [id number] BY: Sidecar70 [place] [facility] [id number] Glucose [Mass/Vol] 102 mg/dL Abnormal 65-99 [facility] Internal Medicine; [facility] Internal Medicine Work Phone: Comment on above: Test(s) 361936-DRH-P ; 244966-AWM-P; 046175-Gxtjurbokmmfr; 480465-Ujneqryzicd, Total; 594768-YEK-E (Total); 246622-Crzrn LDL-P; 507613-CNR Size; 602557-LJ-DO Scorewas developed and its performance characteristics determinedby [employer]. It has not been cleared or approved by the Foodand Drug Administration.PATIENT WAS FASTINGPERFORMED BY: Digiting [address] [id number] BY: [facility] IndianaD[place] [id number] Potassium [Moles/Vol] 4.9 mmol/L Normal 3.5-5.2 [facility] Internal Medicine; [facility] Internal Medicine Work Phone: Comment on above: Test(s) 657903-UCB-N ; 500091-NYS-X; 183789-Aocitygeowxrq; 879627-Odonvkhhwdx, Total; 676981-WQO-Q (Total); 335541-Laoys LDL-P; 407024-DTN Size; 420583-AW-IO Scorewas developed and its performance characteristics determinedby [employer]. It has not been cleared or approved by the Foodand Drug Administration.PATIENT WAS FASTINGPERFORMED BY: Digiting [address] [id number] BY: [employer] [id number] Protein [Mass/Vol] 7.1 g/dL Normal 6.0-8.5 [facility] Internal Medicine; [facility] Internal Medicine Work Phone: Comment on above: Test(s) 224356-PDX-K ; 316151-LNO-F; 861829-Dqptnbntqrwgk; 822711-Ryejjqxeimu, Total; 097909-KKH-X (Total); 524267-Eamnr LDL-P; 915621-RAW Size; 196769-WB-CE Scorewas developed and its performance characteristics determinedby [employer]. It has not been cleared or approved by the Foodand Drug Administration.PATIENT WAS FASTINGPERFORMED BY: [employer] [address] [id number] BY: Unilife CorporationAlbuquerque Indian Health CenterWagjvy7[address] [facility] [id number] Sodium [Moles/Vol] 144 mmol/L Normal 134-144 [facility] Internal Medicine; [facility] Internal Medicine Work Phone: Comment on above: Test(s) 389399-FHH-N ; 425306-LJD-X; 661617-Dsmjpzphfchst; 650799-Mgpibyarlzb, Total; 357678-IJY-O (Total); 392432-Rvauf LDL-P; 251979-ZPD Size; 915929-DH-FV Scorewas developed and its performance characteristics determinedby [employer]. It has not been cleared or approved by the Foodand Drug Administration.PATIENT WAS FASTINGPERFORMED BY: Digiting [address] [id number] BY: Sidecar70 Sequitur LabsFormerly [facility], [facility] [id number] Urea nitrogen [Mass/Vol] 22 mg/dL Normal 8-27 [facility]; [facility] Work Phone: Comment on above: Test(s) 166131-IJP-R ; 054507-OJU-V; 507942-Einvovrrzkcew; 378781-Mqkauifdemt, Total; 377530-VKT-K (Total); 234501-Xcmtu LDL-P; 217690-KMG Size; 546932-GP-IZ Scorewas developed and its performance characteristics determinedby [employer]. It has not been cleared or approved by the Foodand Drug Administration.PATIENT WAS FASTINGPERFORMED BY: Digiting [address] [id number] BY: All Together NowFormerly [facility], [facility] [id number] Urea nitrogen/Creatinine [Mass ratio] 16 mg/mg Normal 10-24 [facility]; [facility] Work Phone: Comment on above: Test(s) 914328-XLN-V ; 761107-WTA-W; 451005-Lxdxdqfjtgfml; 361844-Dngndcprwws, Total; 101774-OLP-I (Total); 001280-Obsgu LDL-P; 052059-TGA Size; 874149-ET-NG Scorewas developed and its performance characteristics determinedby [employer]. It has not been cleared or approved by the Foodand Drug Administration.PATIENT WAS FASTINGPERFORMED BY: Digiting [address] [id number] BY: [employer]6370 Sequitur LabsFormerly [facility], [facility] [id number] MICROALBUMINOrdered By: Syst em Senior Mobile Developer on 04-30-2020 Albumin DL <= 20 mg/L (U) [Mass/Vol] 16.0 ug/mL Normal Comprehensiv e Internal Medicine; [facility] Work Phone: Comment on above: Test(s) 326773-YSY-E ; 463986-IUG-X; 702241-Mvzqadamkbxro; 530007-Pccrajdzglm, Total; 324069-RNW-L (Total); 466397-Otmui LDL-P; 733808-AWN Size; 523441-EL-NU Scorewas developed and its performance characteristics determinedby [employer]. It has not been cleared or approved by the Foodand Drug Administration.PATIENT WAS FASTINGPERFORMED BY: SalesPredict[address] [id number] BY: SOLOMO TechnologyOzarks Medical Center [id number] Albumin/Creatinine (U) [Mass ratio] 4 {mg/g_creat} Normal 0-29 [facility]; [facility] Work Phone: Comment on above: Normal: 0 - 29 Moder ately increased: 30 - 300 Severely increased: >300 Please note reference interval change Test(s) 849431-IAS-I ; 315567-YDR-D; 159481-Pmyxwczzplyzn; 513592-Ghnaetnriir, Total; 556530-RHL-P (Total); 395854-Gkscj LDL-P; 863848-FRM Size; 847882-MO-HE Scorewas developed and its performance characteristics determinedby [employer]. It has not been cleared or approved by the [employer] Drug Administration.PATIENT WAS FASTINGPERFORMED BY: SalesPredict[address] [id number] BY: Sidecar70 [facility] [id number] Creatinine (U) [Mass/Vol] 370.9 mg/dL Normal [facility]; [facility] Work Phone: Comment on above: Test(s) 961078-WLN-W ; 423964-TIF-R; 935865-Bimfqyruzyzvj; 073788-Pafcejvclvf, Total; 542712-POH-J (Total); 874431-Bofqw LDL-P; 831648-TNK Size; 427085-PV-TY Scorewas developed and its performance characteristics determinedby [employer]. It has not been cleared or approved by the Foodand Drug Administration.PATIENT WAS FASTINGPERFORMED BY: Digiting [address] [id number] BY: [employer] Rhkcyk[address] [facility]ibilityGranville [facility] Center [id number] NMR Profile (73606)Ordered B y: Switchboard Operator on 04-30-2020 Cholesterol [Mass/Vol] 137 mg/dL Normal 100-199 [facility]; [facility] Work Phone: Comment on above: Test(s) 285330-GMH-L ; 769151-HVE-I; 386414-Auxdcbmzkkpxq; 121132-Gzylxhqirzf, Total; 656768-VYB-H (Total); 396688-Anmaw LDL-P; 298759-PDF Size; 591942-NP-JZ Scorewas developed and its performance characteristics determinedby [employer]. It has not been cleared or approved by the Foodand Drug Administration.PATIENT WAS FASTINGPERFORMED BY: Digiting [address] [id number] BY: [employer] Systems6[address] [facility]ibilityGr[facility] [id number] Lipoprotein.alpha [Moles/Vol] 25.4 umol/L Abnormal [facility]; [facility] Work Phone: Comment on above: Test(s) 505714-OMV-M ; 293431-EFV-Y; 828984-Ydycsmcxmtuyz; 857440-Qikxsvztojk, Total; 148575-SRH-A (Total); 869815-Rgmmi LDL-P; 345679-ODQ Size; 827333-MD-YY Scorewas developed and its performance characteristics determinedby [employer]. It has not been cleared or approved by the Foodand Drug Administration.PATIENT WAS FASTINGPERFORMED BY: Digiting [address] [id number] BY: [employer] Systems[address] [place] [facility]ibilityGr[facility]ville [facility] [id number] Lipoprotein.beta.sub particle [Entitic length] 19.8 nm Abnormal [facility]; [facility] Work Phone: Comment on above: INTERPRETATIVE INFORMATION PARTICLE CONCENTRATION AND SIZE <--Lower CVD Risk Higher CVD Risk--> LDL AND HDL PARTICLES Percentile in Reference Population HDL-P (total) High 75th 50th 25th Low >34.9 34.9 30.5 26.7 <26.7 . Small LDL-P Low 25th 50th 75th High <117 117 527 839 >839 . LDL Size <-Large (Pattern A)-> <-Small (Pattern B)-> 23.0 20.6 20.5 19.0 Small LDL-P and LDL Size are associated with CVD risk, but not afterLDL-P is taken into account. Test(s) 658188-ROL-L ; 525951-NTQ-V; 220429-Shgqmtkvwjdym; 047184-Grlgmedzjbw, Total; 771797-JLW-T (Total); 116234-Gbgjc LDL-P; 412309-CVF Size; 844557-WJ-EL Scorewas developed and its performance characteristics determinedby [employer]. It has not been cleared or approved by the Foodand Drug Administration.PATIENT WAS FASTINGPERFORMED BY: LabCo[address] [id number] BY: LabCoEssex County HospitalVipfqr39[address] [facility] [id number] Lipoprotein.beta.sub particle [Moles/Vol] 1175 nmol/L Abnormal Comprehensi ve Internal Medicine; [facility] Work Phone: Comment on above: Low < 1000 Moderate 1000 - 1299 Borderline-High 1300 - 1599 High 1600 - 2000 Very High > 2000 Test(s) 532724-DBL-R ; 275940-MNP-B; 999628-Hrlpejzrunnam; 298528-Thhyzstsprw, Total; 936709-GMQ-F (Total); 858268-Llnta LDL-P; 577729-ZIH Size; 647928-PN-AT Scorewas developed and its performance characteristics determinedby [employer]. It has not been cleared or approved by the Foodand Drug Administration.PATIENT WAS FASTINGPERFORMED BY: Digiting [address] [id number] BY: [employer] Kvitcx[address] [facility] [id number] Lipoprotein.beta.sub particle.small [Moles/Vol] 914 nmol/L Abnormal [facility]; [facility] Work Phone: Comment on above: Test(s) 142010-DOU-O ; 228401-SKR-U; 039165-Axvozlnrszffc; 233078-Wapwiepfavc, Total; 058081-YIB-A (Total); 330273-Khlux LDL-P; 787029-XTF Size; 927304-QV-NP Scorewas developed and its performance characteristics determinedby [employer]. It has not been cleared or approved by the Foodand Drug Administration.PATIENT WAS FASTINGPERFORMED BY: Digiting [address] [id number] BY: [employer] Jybyce[address] [facility] [id number] Triglyceride [Mass/Vol] 140 mg/dL Normal 0-149 [facility]; [facility] Work Phone: Comment on above: Test(s) 824068-ETF-C ; 192895-PAG-P; 822496-Eukmefzwqchgy; 504883-Muglsrpnewz, Total; 971465-VGK-D (Total); 082554-Fqjqg LDL-P; 226959-DTM Size; 101200-EK-WU Scorewas developed and its performance characteristics determinedby [employer]. It has not been cleared or approved by the Foodand Drug Administration.PATIENT WAS FASTINGPERFORMED BY: SalesPredict[address] [id number] BY: Startpack Umqisi69[address] [facility] [id number] NMR Profile (18782) 79 mg/dL Normal 0-99 [facility] ehensive Internal Medicine; [facility] Work Phone: Comment on above: . Optimal < 100 Abov e optimal 100 - 129 Borderline 130 - 159 High 160 - 189 Very high > 189 . Test(s) 781731-PUB-X ; 359740-XJX-D; 071316-Homkmzacxxeit; 996420-Bnskmosqdyu, Total; 963016-NLL-M (Total); 459604-Zbqot LDL-P; 056147-ZNA Size; 840077-FF-SE Scorewas developed and its performance characteristics determinedby [employer]. It has not been cleared or approved by the Foodand Drug Administration.PATIENT WAS FASTINGPERFORMED BY: SalesPredict[address] [id number] BY: [employer]car[address] [facility] [id number] NMR Profile (38126) 33 mg/dL Abnormal [facility]; [facility] Work Phone: Comment on above: Test(s) 822524-DUO-B ; 681217-WDN-V; 704599-Khgbaolsglgme; 744627-Cyyjxjayrac, Total; 503484-PHL-O (Total); 613089-Vmppp LDL-P; 973468-ATI Size; 695966-IT-WY Scorewas developed and its performance characteristics determinedby [employer]. It has not been cleared or approved by the Foodand Drug Administration.PATIENT WAS FASTINGPERFORMED BY: Carnad[address] [id number] BY: StartpackEssex County HospitalRelqkw34[address] [facility] [id number] NMR Profile (18950) 140 mg/dL Normal 0-149 [facility]; [facility] Work Phone: NMR Profile (38523) 137 mg/dL Normal 100-199 Compr ehensive Internal Medicine; [facility] Work Phone: TSH (17889)Ordered By: Syste m Senior Mobile Developer on 04-30-2020 TSH Qn 1.300 {uIU/mL} Normal 0.450-4.50 0 [facility]; [facility] Work Phone: Comment on above: Test(s) 820095-MTL-B ; 105744-YLV-Y; 652562-Efyamyerphnbz; 678669-Sciycsnbati, Total; 455092-NUK-Y (Total); 618894-Bpqon LDL-P; 810575-OTO Size; 855076-KC-LC Scorewas developed and its performance characteristics determinedby [employer]. It has not been cleared or approved by the Foodand Drug Administration.PATIENT WAS FASTINGPERFORMED BY: [employer] [facility] [id number] BY: Sidecar70 [employer] [place] [id number] URINALYSIS, W/ MICRO (99541) Ordered By: Switchboard Operator on 04-30-2020 Appearance (U) Cloudy Abnormal Comprehens damien Internal Medicine; [facility] Work Phone: Comment on above: Test(s) 728014-WLI-I ; 057135-BOZ-B; 542418-Ccugrszpabasn; 053058-Qyaantfexpq, Total; 002217-RWJ-C (Total); 536417-Qnlrg LDL-P; 173696-VIN Size; 195898-IP-YO Scorewas developed and its performance characteristics determinedby [employer]. It has not been cleared or approved by the Foodand Drug Administration.PATIENT WAS FASTINGPERFORMED BY: SalesPredictton1447 [facility] [id number] BY: Sidecar70 [employer] [place] [id number] Bilirubin Ql (U) Negative Normal Comprehe nsive Internal Medicine; [facility] Work Phone: Comment on above: Test(s) 151386-RTW-N ; 938170-RYE-E; 566396-Ypgworrowbntg; 066272-Jujullzkrrn, Total; 451746-RPY-Q (Total); 688648-Cxtan LDL-P; 123728-IWP Size; 919120-JE-RE Scorewas developed and its performance characteristics determinedby [employer]. It has not been cleared or approved by the Foodand Drug Administration.PATIENT WAS FASTINGPERFORMED BY: Digiting [address] [id number] BY: Pushing Green[address] [facility] [id number] Bilirubin Ql (U) Negative Normal Comprehe nsive Internal Medicine; [facility] Work Phone: Comment on above: Test(s) 361534-KWN-Z ; 321428-ACM-E; 831800-Edtzremifchui; 736550-Winfvqupivg, Total; 202539-IJE-E (Total); 467312-Gjbyi LDL-P; 559682-UCF Size; 115407-BH-CA Scorewas developed and its performance characteristics determinedby [employer]. It has not been cleared or approved by the Foodand Drug Administration.PATIENT WAS FASTINGPERFORMED BY: Digiting [address] [id number] BY: Sidecar70 [place] [facility]Gr[facility] [id number] Color (U) Yellow Normal [facility]; [facility] Work Phone: Comment on above: Test(s) 755190-LVN-J ; 123470-FXE-D; 021736-Btyfmhsnrdtjs; 442598-Rvqftogpaai, Total; 240167-LIM-S (Total); 267547-Qkgdr LDL-P; 582995-MEW Size; 448323-OF-CI Scorewas developed and its performance characteristics determinedby [employer]. It has not been cleared or approved by the Foodand Drug Administration.PATIENT WAS FASTINGPERFORMED BY: Digiting [address] [id number] BY: [employer] Systems6370 [facility] [id number] Glucose Ql (U) Negative Normal Comprehens damien Internal Medicine; [facility] Work Phone: Comment on above: Test(s) 641767-GVO-Y ; 064947-UUC-S; 507842-Yofbrlitqebpl; 444656-Upkiwdczmgx, Total; 751430-MTC-E (Total); 768809-Rsvew LDL-P; 308537-LCO Size; 167568-HN-OT Scorewas developed and its performance characteristics determinedby [employer]. It has not been cleared or approved by the Foodand Drug Administration.PATIENT WAS FASTINGPERFORMED BY: Digiting [address] [id number] BY: Pushing Green[address] [facility] [id number] Glucose Ql (U) Negative Normal Comprehens damien Internal Medicine; [facility] Work Phone: Comment on above: Test(s) 157875-LKY-U ; 788969-MLB-N; 515807-Svstmdqptmhei; 511433-Iohnvnxbzxp, Total; 399675-TFC-I (Total); 338073-Xtjpb LDL-P; 099068-JUX Size; 505546-OW-BY Scorewas developed and its performance characteristics determinedby [employer]. It has not been cleared or approved by the Foodand Drug Administration.PATIENT WAS FASTINGPERFORMED BY: Digiting [address] [id number] BY: [employer] Kxhptw[address] [facility] [id number] Hemoglobin Ql (U) Negative Normal Compreh ensive Internal Medicine; [facility] Work Phone: Comment on above: Test(s) 340397-ABT-Q ; 722208-FDH-H; 863754-Yzrottwcgkivy; 368005-Gzeomroifhp, Total; 271108-JER-Y (Total); 382512-Swmkc LDL-P; 947932-DLL Size; 520444-QD-WN Scorewas developed and its performance characteristics determinedby [employer]. It has not been cleared or approved by the Foodand Drug Administration.PATIENT WAS FASTINGPERFORMED BY: BN LabCo[address] [id number] BY: Unilife CorporationEssex County HospitalPbbdbv77[address] [facility] [id number] Hemoglobin Ql (U) Negative Normal Compreh ensive Internal Medicine; [facility] Work Phone: Comment on above: Test(s) 161146-XHS-G ; 040318-WFY-M; 110699-Rnlnqngrncoxd; 446626-Pxstwghcesd, Total; 152497-KDV-X (Total); 022671-Dfiei LDL-P; 542053-CEM Size; 619974-AI-ND Scorewas developed and its performance characteristics determinedby [employer]. It has not been cleared or approved by the Foodand Drug Administration.PATIENT WAS FASTINGPERFORMED BY: [employer] [address] [id number] BY: [employer]ushing Green[address] [facility] [id number] Ketones Ql (U) Trace Abnormal Comprehens damien Internal Medicine; [facility] Work Phone: Comment on above: Test(s) 403109-IWK-D ; 318896-VRO-R; 242053-Drbulrkyoksdc; 970861-Sniiylpxmik, Total; 540009-XFQ-C (Total); 573883-Ahyqg LDL-P; 361883-OGJ Size; 807078-UL-ZZ Scorewas developed and its performance characteristics determinedby [employer]. It has not been cleared or approved by the Foodand Drug Administration.PATIENT WAS FASTINGPERFORMED BY: [employer] [id number] BY: Unilife CorporationEssex County HospitalZtmqtt6096 [facility] [id number] Leukocyte esterase Test strip Ql (U) Trace Abnormal [facility]; [facility] Work Phone: Comment on above: Test(s) 496502-LYG-C ; 362968-LPA-S; 754350-Svbmzgeweohhn; 741527-Pmyqxfwlzmx, Total; 595565-VWS-N (Total); 019815-Cbqjz LDL-P; 545218-GML Size; 589448-LV-XS Scorewas developed and its performance characteristics determinedby [employer]. It has not been cleared or approved by the Foodand Drug Administration.PATIENT WAS FASTINGPERFORMED BY: Digiting [address] [id number] BY: [employer] Uqblpq01[address] [place] [facility]Gr[facility]ville [facility] [id number] Microscopic observation LM Nom (Urine sed) See below: Normal [facility]; [facility] Work Phone: Comment on above: Microscopic was jayden cated and was performed. Test(s) 617646-HHS-S ; 283260-MWF-K; 799686-Bgcejkwjfvbtl; 509519-Ngvtrfpvyfs, Total; 943886-SVM-U (Total); 283190-Xrnff LDL-P; 787157-ZNK Size; 007817-OJ-CO Scorewas developed and its performance characteristics determinedby [employer]. It has not been cleared or approved by the Foodand Drug Administration.PATIENT WAS FASTINGPERFORMED BY: Digiting [address] [id number] BY: All Together NowFormerly [facility], [facility] [id number] Nitrite Ql (U) Negative Normal Comprehens damien Internal Medicine; [facility] Work Phone: Comment on above: Test(s) 346606-OYE-P ; 664379-OSC-T; 576957-Ujmvglkzdmtiq; 492950-Pzslyptelni, Total; 177313-VKQ-H (Total); 947708-Kssbm LDL-P; 486331-JYM Size; 513938-NE-JX Scorewas developed and its performance characteristics determinedby [employer]. It has not been cleared or approved by the Foodand Drug Administration.PATIENT WAS FASTINGPERFORMED BY: Digiting [address] [id number] BY: [employer] [place] [facility]ibilityGranville [facility] Center [id number] Nitrite Ql (U) Negative Normal Comprehens damien Internal Medicine; [facility] Work Phone: Comment on above: Test(s) 881712-NCV-G ; 058544-NBQ-F; 677438-Veioaskxzsegp; 319152-Hedcavwpbib, Total; 688590-MWH-Q (Total); 748140-Wapyu LDL-P; 686337-HSN Size; 523300-KD-IL Scorewas developed and its performance characteristics determinedby [employer]. It has not been cleared or approved by the Foodand Drug Administration.PATIENT WAS FASTINGPERFORMED BY: Digiting [address] [id number] BY: Sidecar[address] [facility] [id number] pH (U) 5.5 [pH] Normal 5.0-7.5 [facility]; [facility] Work Phone: Comment on above: Test(s) 501830-QNZ-B ; 555277-LFQ-K; 871988-Eydreinwcsano; 568417-Qwtfxeiydwq, Total; 508457-YXK-M (Total); 204264-Zkidg LDL-P; 007610-IND Size; 789569-UU-RE Scorewas developed and its performance characteristics determinedby [employer]. It has not been cleared or approved by the Foodand Drug Administration.PATIENT WAS FASTINGPERFORMED BY: Digiting [address] [id number] BY: [employer] [facility] [id number] Protein Ql (U) Trace Normal Comprehens damien Internal Medicine; [facility] Work Phone: Comment on above: Test(s) 268156-JZM-P ; 448771-IDC-R; 751925-Mtdhvbikraobs; 650335-Rxksrlgevvh, Total; 577455-GWU-K (Total); 866402-Mulzy LDL-P; 130741-MAF Size; 433142-DA-JE Scorewas developed and its performance characteristics determinedby [employer]. It has not been cleared or approved by the Foodand Drug Administration.PATIENT WAS FASTINGPERFORMED BY: Digiting [address] [id number] BY: [employer]6370 CompassoftGranville Medical Center [id number] Specific gravity (U) [Rel density] >=1.030 Abnormal 1.005-1.03 0 [facility]; [facility] Work Phone: Comment on above: Test(s) 205170-YLK-J ; 835507-AES-K; 733887-Mhisjznlszzbe; 045743-Jjpugdcyqkr, Total; 393360-STF-A (Total); 230435-Uoewp LDL-P; 742464-WFH Size; 499408-CI-LB Scorewas developed and its performance characteristics determinedby [employer]. It has not been cleared or approved by the Foodand Drug Administration.PATIENT WAS FASTINGPERFORMED BY: SalesPredict[address] [id number] BY: Sidecar70 Sequitur LabsFormerly [facility], [facility] [id number] Urobilinogen (U) [Mass/Vol] 0.2 mg/dL Normal 0.2-1.0 [facility] Internal Medicine; [facility] Work Phone: Comment on above: Test(s) 974763-KSD-D ; 613952-ZXK-N; 932378-Silyjsoeqoaag; 737554-Iouzqvxjdcj, Total; 823137-OSW-M (Total); 949087-Bitjv LDL-P; 475679-PEP Size; 087142-WN-PV Scorewas developed and its performance characteristics determinedby [employer]. It has not been cleared or approved by the Foodand Drug Administration.PATIENT WAS FASTINGPERFORMED BY: Digiting Jscnlqpylg7591 [facility] [id number] BY: [employer]6370 CompassoftGranville Medical Center [id number] Urobilinogen Test strip (U) [Mass/Vol] 0.2 mg/dL Normal 0.2-1.0 [facility] Internal Medicine; [facility] Work Phone: Comment on above: Test(s) 274104-UUJ-S ; 165060-UBH-A; 275286-Szafdpocgnzep; 168142-Ygrbkflaxbj, Total; 068419-NAD-T (Total); 429920-Pyuig LDL-P; 899283-OUY Size; 839655-ZV-WM Scorewas developed and its performance characteristics determinedby Lifeloc TechnologiesNortheast Regional Medical Center. It has not been cleared or approved by the Foodand Drug Administration.PATIENT WAS FASTINGPERFORMED BY: [address] [id number] BY: [facility] [facility] [id number] HEPATIC FUNCTION PANEL (8007 6)Ordered By: Switchboard Operator on 01-28-2020 Albumin [Mass/Vol] 4.3 g/dL Normal 3.8-4.8 [facility] Internal Medicine Work Phone: Comment on above: PATIENT NOT FASTINGP ERFORMED BY: [facility] [id number] ALP [Catalytic activity/Vol] 115 [iU]/L Normal 39-117 [facility] Work Phone: Comment on above: PATIENT NOT FASTINGP ERFORMED BY: [facility] [id number] ALP [Catalytic activity/Vol] 115 U/L Normal 39-117 [facility]; [facility] Work Phone: Comment on above: PATIENT NOT FASTINGP ERFORMED BY: [facility] [id number] ALT [Catalytic activity/Vol] 25 [iU]/L Normal 0-44 [facility] Work Phone: Comment on above: PATIENT NOT FASTINGP ERFORMED BY: [facility] [id number] ALT [Catalytic activity/Vol] 25 U/L Normal 0-44 [facility]; [facility] Work Phone: Comment on above: PATIENT NOT FASTINGP ERFORMED BY: [facility] [id number] AST [Catalytic activity/Vol] 21 [iU]/L Normal 0-40 [facility] Work Phone: Comment on above: PATIENT NOT FASTINGP ERFORMED BY: CAROLA LabRosalba AveryYwblfr6628 Clayton RoadDublin [place] [id number] AST [Catalytic activity/Vol] 21 U/L Normal 0-40 [facility]; [facility] Work Phone: Comment on above: PATIENT NOT FASTINGP ERFORMED BY: CAROLA LabRosalba Anbrxm7474 [address] RoadDublin [place] [id number] Bilirubin [Mass/Vol] 0.3 mg/dL Normal 0.0-1.2 Comp rehensive Internal Medicine Work Phone: Comment on above: PATIENT NOT FASTINGP ERFORMED BY: CAROLA LabRosalba AveryOuseqm4402 [address] RoadDublin [place] [id number] Bilirubin.direct [Mass/Vol] 0.07 mg/dL Normal 0.00-0.40 [facility] Work Phone: Comment on above: PATIENT NOT FASTINGP ERFORMED BY: CAROLA LabRosalba Wkjcye8111 [address] RoadDublin [place] [id number] Protein [Mass/Vol] 6.7 g/dL Normal 6.0-8.5 [facility] Internal Medicine Work Phone: Comment on above: PATIENT NOT FASTINGP ERFORMED BY: CAROLA [facility] Cexnxg0260 Clayton RoadDublin [place] [id number] Metabolic Panel, Basic (8004 8)Ordered By: Switchboard Operator on 01-28-2020 Calcium [Mass/Vol] 9.0 mg/dL Normal 8.6-10.2 [facility] Internal Medicine Work Phone: Comment on above: PATIENT NOT FASTINGP ERFORMED BY: CAROLA [facility] Gywxdz2948 [address] RoadDublin [place] [id number] Chloride [Moles/Vol] 103 mmol/L Normal 96-[address] [facility] Work Phone: Comment on above: PATIENT NOT FASTINGP ERFORMED BY: CAROLA [facility] Kblkkv9229 Clayton RoadDublin [place] [id number] CO2 [Moles/Vol] 23 mmol/L Normal 20-29 [facility] Internal Medicine Work Phone: Comment on above: PATIENT NOT FASTINGP ERFORMED BY: CAROLA [facility] Lpllzt7[address] [facility] [place] [id number] Creatinine [Mass/Vol] 1.24 mg/dL Normal 0.76-1.27 [facility] Work Phone: Comment on above: PATIENT NOT FASTINGP ERFORMED BY: CB [facility] Tmexnp1915 [address] [facility] [id number] GFR/1.73 sq M predicted among blacks CKD-EPI (S/P/Bld) [Vol rate/Area] 70 mL/min/1.73 Normal [facility] Work Phone: Comment on above: PATIENT NOT FASTINGP ERFORMED BY: CB [facility] Tjxgjk0905 [address] [facility] [id number] GFR/1.73 sq M predicted among non-blacks CKD-EPI (S/P/Bld) [Vol rate/Area] 61 mL/min/1.73 Normal [facility] Work Phone: Comment on above: PATIENT NOT FASTINGP ERFORMED BY: CB [facility] Zzgldn6914 [address] [facility] [id number] Glucose [Mass/Vol] 92 mg/dL Normal 65-99 [facility] Internal Medicine Work Phone: Comment on above: PATIENT NOT FASTINGP ERFORMED BY: CB [facility] Ngyoij0263 [address] [facility] [id number] Potassium [Moles/Vol] 4.5 mmol/L Normal 3.5-5.2 [facility] Work Phone: Comment on above: PATIENT NOT FASTINGP ERFORMED BY: CB [facility] Kjrdin8032 [address] [facility] [id number] Sodium [Moles/Vol] 140 mmol/L Normal 134-144 [facility] Internal Medicine Work Phone: Comment on above: PATIENT NOT FASTINGP ERFORMED BY: CB [facility] Wxgqyu0[address] [facility] [id number] Urea nitrogen [Mass/Vol] 22 mg/dL Normal 8-27 [facility] Work Phone: Comment on above: PATIENT NOT FASTINGP ERFORMED BY: [facility] [facility] [id number] Urea nitrogen/Creatinine [Mass ratio] 18 mg/mg Normal 10-24 [facility] Work Phone: Comment on above: PATIENT NOT FASTINGP ERFORMED BY: [facility] [facility] [id number] Blood Glucose , Office ([phone])Ordered By: Marilynn Wallace on 12-27-2019 Glucose Glucometer (BldC) [Moles/Vol] 124 1 Normal [facility] Work Phone: CALCIFEDIOL ([id number])Ordered B y: Switchboard Operator on 12-27-2019 25-Hydroxyvitamin D2+25-Hydroxyvitamin D3 [Mass/Vol] 35.4 ng/mL Normal 30.0-100.0 [facility] Work Phone: Comment on above: Vitamin D deficiency has been defined by the [place] of[place]icine and an Endocrine Society practice guideline as alevel of serum 25-OH vitamin D less than 20 ng/mL (1,2).The Endocrine Society went on to further define vitamin Dinsufficiency as a level between 21 and 29 ng/mL (2).1. IOM ([place] of Medicine). 2010. Dietary reference intakes for calcium and D. [place]: The National Academies Press.2. Rayna MF, Ana Luisa NC, William CUBA, et al. Evaluation, treatment, and prevention of vitamin D deficiency: an Endocrine Society clinical practice guideline. JCEM. 2010; 96(7):1911-30. Test(s) 326426-WVQ-L ; 356519-UWI-S; 816811-RNS-R; 772904-Dwzmtaululfye; 310189-Ayunydasfyu, Total; 423629-AAA-L (Total);390742-Wzxwb LDL-P; 559048-IPH Size; 029761-LT-RW Scorewas developed and its performance characteristics determinedby [employer]. It has not been cleared or approved by the Foodand Drug Administration.PATIENT WAS FASTINGPERFORMED BY: Digiting [address] [id number] BY: Sidecar[address] [facility] [id number] CBC W/AUTO DIFF WBC (55277)O rdered By: Switchboard Operator on 12-27-2019 Basophils (Bld) [#/Vol] 0.1 {x10E3/uL} Normal 0.0-0.2 [facility] Work Phone: Comment on above: Test(s) 128430-IJQ-E ; 161355-WTR-G; 318584-CXL-V; 687050-Zsrgszejtceac; 279667-Ozmjdgpmoxs, Total; 034348-IMI-O (Total);328228-Gcbez LDL-P; 397946-SLK Size; 832141-ET-OE Scorewas developed and its performance characteristics determinedby [employer]. It has not been cleared or approved by the Foodand Drug Administration.PATIENT WAS FASTINGPERFORMED BY: Digiting [address] [id number] BY: [employer] [facility]ibilityGr[facility] [id number] Basophils (Bld) [#/Vol] 0.1 10*3/uL Normal 0.0-0.2 [facility]; [facility] Work Phone: Comment on above: Test(s) 307897-JAM-I ; 074659-YEH-X; 700447-KFR-V; 083029-Pgoooxhctzkww; 135981-Cglkkoznrqt, Total; 301726-IPH-A (Total);434301-Kyvxh LDL-P; 627240-GFD Size; 694986-ZB-CH Scorewas developed and its performance characteristics determinedby [employer]. It has not been cleared or approved by the Foodand Drug Administration.PATIENT WAS FASTINGPERFORMED BY: Digiting [address] [id number] BY: Sidecar70 [place] [facility] [id number] Basophils/100 WBC (Bld) 1 % Normal [facility] Work Phone: Comment on above: Test(s) 259923-MST-G ; 075395-ITR-O; 492290-RHN-M; 597169-Odvktxhuqircn; 633853-Bwyitxyhitx, Total; 132226-BEG-B (Total);756426-Sflvs LDL-P; 375931-BZH Size; 570146-TE-RW Scorewas developed and its performance characteristics determinedby [employer]. It has not been cleared or approved by the Foodand Drug Administration.PATIENT WAS FASTINGPERFORMED BY: Digiting [address] [id number] BY: Sidecar[address] [facility] [id number] Eosinophils (Bld) [#/Vol] 0.2 {x10E3/uL} Normal 0.0-0.4 [facility] Work Phone: Comment on above: Test(s) 414795-PAA-R ; 224252-JMF-L; 801931-JWQ-F; 486244-Lfengxzvwbnpi; 826636-Usqzybygihx, Total; 071520-MXJ-Y (Total);269625-Hgbwp LDL-P; 680599-YCG Size; 671516-BV-ZZ Scorewas developed and its performance characteristics determinedby [employer]. It has not been cleared or approved by the Foodand Drug Administration.PATIENT WAS FASTINGPERFORMED BY: Digiting [address] [id number] BY: [employer] Ycdrlp8[address] [facility] [id number] Eosinophils (Bld) [#/Vol] 0.2 10*3/uL Normal 0.0-0.4 [facility]; [facility] Work Phone: Comment on above: Test(s) 202564-VUM-V ; 752091-YNN-N; 572984-DUH-S; 150568-Jiwxivgyuvucu; 559096-Cnuprejcmzj, Total; 410304-JUV-X (Total);713976-Wgdzh LDL-P; 670576-LNG Size; 488671-FD-NN Scorewas developed and its performance characteristics determinedby [employer]. It has not been cleared or approved by the Foodand Drug Administration.PATIENT WAS FASTINGPERFORMED BY: Digiting [address] [id number] BY: Unilife CorporationAlbuquerque Indian Health CenterRkhbbd6689 [facility] [id number] Eosinophils/100 WBC (Bld) 1 % Normal [facility] Work Phone: Comment on above: Test(s) 343864-BVZ-X ; 279314-WWF-Z; 238354-QPB-O; 652913-Ofzatswfhrpwl; 504929-Ypoymqbgnyo, Total; 146905-CQK-O (Total);841333-Mbcwe LDL-P; 572828-ANW Size; 157505-FG-LZ Scorewas developed and its performance characteristics determinedby [employer]. It has not been cleared or approved by the Foodand Drug Administration.PATIENT WAS FASTINGPERFORMED BY: Digiting [address] [id number] BY: Sidecar[address] [facility] [id number] Erythrocyte distribution width (RBC) [Ratio] 14.2 % Normal 11.6-15.4 [facility] Work Phone: Comment on above: Test(s) 206789-DTN-P ; 750008-OPA-P; 292688-SOZ-B; 221901-Brkezuedpoavm; 966861-Wwzkmckeoaj, Total; 598623-PSZ-G (Total);706728-Wgdly LDL-P; 570360-JLL Size; 177166-JI-MH Scorewas developed and its performance characteristics determinedby [employer]. It has not been cleared or approved by the Foodand Drug Administration.PATIENT WAS FASTINGPERFORMED BY: Digiting [address] [id number] BY: Hipsterlin6[address] [facility] [id number] Hematocrit (Bld) [Volume fraction] 43.3 % Normal 37.5-51.0 [facility] Work Phone: Comment on above: Test(s) 810651-GKK-Q ; 527377-YTI-K; 699088-MFI-C; 464779-Whrdwqojwtvge; 906019-Ptivgpexrsg, Total; 272196-IPC-F (Total);378717-Shaaw LDL-P; 987769-LMB Size; 217931-WZ-EQ Scorewas developed and its performance characteristics determinedby [employer]. It has not been cleared or approved by the Foodand Drug Administration.PATIENT WAS FASTINGPERFORMED BY: SalesPredict[address] [id number] BY: Sidecar70 CompassoftGranville Medical Center [id number] Hemoglobin (Bld) [Mass/Vol] 15.2 g/dL Normal 13.0-17.7 [facility] Work Phone: Comment on above: Test(s) 145445-BFI-I ; 298006-GFK-H; 382511-AUJ-P; 171026-Ezslzxymfuvrz; 714824-Evrrwsvjdou, Total; 760939-VMI-M (Total);638675-Wdhwl LDL-P; 840169-GBZ Size; 004527-TP-OP Scorewas developed and its performance characteristics determinedby [employer]. It has not been cleared or approved by the Foodand Drug Administration.PATIENT WAS FASTINGPERFORMED BY: Digiting [address] [id number] BY: [employer] Iupyij2506 [address] [facility]ibilityGr[facility] [id number] Immature granulocytes (Bld) [#/Vol] 0.2 {x10E3/uL} Abnormal 0.0-0.1 [facility] Work Phone: Comment on above: (An elevated percent age of Immature Granulocytes has not been foundto be clinically significant as a sole clinical predictor of disease.Does NOT include bands or blast cells. associatedphysiological leukocytosis may also show increased immaturegranulocytes without clinical significance.) Test(s) 449140-WPT-M ; 462171-KVV-S; 134897-JXN-R; 565934-Gjplcjzofdali; 371939-Bdapaguksdn, Total; 724602-WUB-W (Total);334332-Ynvqv LDL-P; 712684-SMR Size; 402318-HD-FE Scorewas developed and its performance characteristics determinedby [employer]. It has not been cleared or approved by the Foodand Drug Administration.PATIENT WAS FASTINGPERFORMED BY: Digiting [address] [id number] BY: Sidecar[address] [facility] [id number] Immature granulocytes (Bld) [#/Vol] 0.2 10*3/uL Abnormal 0.0-0.1 [facility]; [facility] Work Phone: Comment on above: (An elevated percent age of Immature Granulocytes has not been foundto be clinically significant as a sole clinical predictor of disease.Does NOT include bands or blast cells. associatedphysiological leukocytosis may also show increased immaturegranulocytes without clinical significance.) Test(s) 369714-OVE-K ; 161168-NIU-Z; 937601-HBK-F; 512854-Qtwplbdfinwud; 700915-Uzypuffnvql, Total; 868506-YJD-U (Total);904650-Frcte LDL-P; 620740-HFF Size; 744483-VH-MF Scorewas developed and its performance characteristics determinedby [employer]. It has not been cleared or approved by the Foodand Drug Administration.PATIENT WAS FASTINGPERFORMED BY: Digiting [address] [id number] BY: [employer] Jqchmo4[address] [facility] [id number] Immature granulocytes/100 WBC (Bld) 2 % Normal [facility] Work Phone: Comment on above: Test(s) 995549-KBK-Y ; 579981-EZV-I; 916882-KYG-C; 842567-Zhomhscsyhusb; 038742-Zxrbuhjypik, Total; 784310-ADN-H (Total);280373-Cwdtg LDL-P; 330259-PDY Size; 239195-HG-EE Scorewas developed and its performance characteristics determinedby [employer]. It has not been cleared or approved by the Foodand Drug Administration.PATIENT WAS FASTINGPERFORMED BY: [employer] [id number] BY: Unilife CorporationEssex County HospitalCmmiqy84[address] [facility] [id number] Lymphocytes (Bld) [#/Vol] 1.6 {x10E3/uL} Normal 0.7-3.1 [facility] Work Phone: Comment on above: Test(s) 164015-NVB-L ; 607466-GRB-I; 771159-NGT-D; 540415-Swpolhihwlorb; 819577-Seylcoivxsw, Total; 783442-TRN-D (Total);065709-Licjf LDL-P; 663628-CEF Size; 428086-WM-NL Scorewas developed and its performance characteristics determinedby [employer]. It has not been cleared or approved by the Foodand Drug Administration.PATIENT WAS FASTINGPERFORMED BY: [employer] [address] [id number] BY: Unilife CorporationEssex County HospitalRlpzfo6813 [facility] [id number] Lymphocytes (Bld) [#/Vol] 1.6 10*3/uL Normal 0.7-3.1 [facility]; [facility] Work Phone: Comment on above: Test(s) 260870-AKT-R ; 041650-ZHI-J; 275257-UVI-M; 516853-Ndwtjkzjasret; 658108-Hkfmloiirri, Total; 524044-EXD-D (Total);177641-Zdpac LDL-P; 279948-QGI Size; 164141-VN-QG Scorewas developed and its performance characteristics determinedby [employer]. It has not been cleared or approved by the Foodand Drug Administration.PATIENT WAS FASTINGPERFORMED BY: [employer] [id number] BY: Unilife CorporationHaley Ville 16279[address] [facility] [id number] Lymphocytes/100 WBC (Bld) 14 % Normal [facility] Work Phone: Comment on above: Test(s) 445742-PUJ-G ; 159640-IKZ-M; 316087-XBZ-W; 933456-Qdhikchmfubsy; 462464-Ynzkpsvkzzy, Total; 717969-IWK-O (Total);219709-Ukfpc LDL-P; 483567-ASK Size; 183527-AP-YP Scorewas developed and its performance characteristics determinedby [employer]. It has not been cleared or approved by the Foodand Drug Administration.PATIENT WAS FASTINGPERFORMED BY: [employer] [id number] BY: [employer] Iaapjb5237 [facility] [id number] MCH (RBC) [Entitic mass] 31.6 pg Normal 26.6-33.0 [facility] Work Phone: Comment on above: Test(s) 818154-JVY-H ; 407329-SYJ-K; 254513-TAU-P; 230930-Whpjsajhzghaz; 519813-Bvasityaqlr, Total; 472414-CNG-H (Total);702828-Emhun LDL-P; 324626-ZLF Size; 931300-YS-LQ Scorewas developed and its performance characteristics determinedby [employer]. It has not been cleared or approved by the Foodand Drug Administration.PATIENT WAS FASTINGPERFORMED BY: [employer] [id number] BY: Unilife CorporationEssex County HospitalQplzcz3542 [facility] [id number] MCHC (RBC) [Mass/Vol] 35.1 g/dL Normal 31.5-35.7 [facility] Work Phone: Comment on above: Test(s) 154670-ZRR-F ; 582572-JZS-T; 177652-PTO-L; 967665-Qacfhnasjeaje; 803212-Tefpreghtef, Total; 442863-SWQ-M (Total);284725-Jouzb LDL-P; 241805-QFJ Size; 135678-HC-VP Scorewas developed and its performance characteristics determinedby [employer]. It has not been cleared or approved by the Foodand Drug Administration.PATIENT WAS FASTINGPERFORMED BY: Digiting [address] [id number] BY: [employer]6370 Sequitur LabsFormerly [facility], [facility] [id number] MCV (RBC) [Entitic vol] 90 fL Normal 79-97 [facility] Work Phone: Comment on above: Test(s) 946069-MXG-V ; 855431-BVE-P; 915760-XYB-O; 708494-Yirijjrjsczpt; 846915-Edyzkjhyfxa, Total; 993306-WKU-K (Total);760267-Gxaao LDL-P; 913281-KDU Size; 720894-RL-SH Scorewas developed and its performance characteristics determinedby [employer]. It has not been cleared or approved by the Foodand Drug Administration.PATIENT WAS FASTINGPERFORMED BY: Digiting [address] [id number] BY: Sidecar70 [employer] LabsFormerly [facility], [facility] [id number] Monocytes (Bld) [#/Vol] 0.8 {x10E3/uL} Normal 0.1-0.9 [facility] Work Phone: Comment on above: Test(s) 087475-RSU-O ; 770030-PXU-D; 734272-VIX-W; 069374-Wlnqgpeyegssr; 410082-Ywmikcdauxm, Total; 319174-QBT-Z (Total);681838-Hpinn LDL-P; 180228-TIO Size; 422691-ZP-QK Scorewas developed and its performance characteristics determinedby [employer]. It has not been cleared or approved by the Foodand Drug Administration.PATIENT WAS FASTINGPERFORMED BY: Digiting [address] [id number] BY: [employer]6[address] [facility]ibilityGr[facility]ville [facility] Center [id number] Monocytes (Bld) [#/Vol] 0.8 10*3/uL Normal 0.1-0.9 [facility]; [facility] Work Phone: Comment on above: Test(s) 007290-WHE-R ; 532660-OEJ-S; 211988-IYO-Z; 727752-Gjlxtnuuiqmvx; 075674-Thaaptdyryk, Total; 777813-ZFZ-R (Total);030180-Fqxrc LDL-P; 698463-LIU Size; 086803-EK-TA Scorewas developed and its performance characteristics determinedby [employer]. It has not been cleared or approved by the Foodand Drug Administration.PATIENT WAS FASTINGPERFORMED BY: [employer] [id number] BY: Sidecar[address] [facility] [id number] Monocytes/100 WBC (Bld) 7 % Normal [facility] Work Phone: Comment on above: Test(s) 671770-QLT-G ; 987199-CPG-C; 033641-GIH-N; 669022-Equivtkhmpmjn; 117384-Fxuumirxgyi, Total; 661435-GGJ-S (Total);156498-Xaejd LDL-P; 795442-FDD Size; 114711-FH-EY Scorewas developed and its performance characteristics determinedby [employer]. It has not been cleared or approved by the Foodand Drug Administration.PATIENT WAS FASTINGPERFORMED BY: Sales[employer]ict[address] [id number] BY: [employer] Mcyqjw8619 [facility] [id number] Neutrophils (Bld) [#/Vol] 8.6 {x10E3/uL} Abnormal 1.4-7.0 [facility] Work Phone: Comment on above: Test(s) 184721-SCO-S ; 904423-GMM-Q; 841438-FKH-A; 863062-Ckuvodceuqdbn; 113635-Jszeyftzycs, Total; 087837-DEG-P (Total);083647-Jyfih LDL-P; 255692-YLT Size; 496209-GP-GC Scorewas developed and its performance characteristics determinedby [employer]. It has not been cleared or approved by the Foodand Drug Administration.PATIENT WAS FASTINGPERFORMED BY: Digiting [address] [id number] BY: [employer] Bvfprx9382 [facility] [id number] Neutrophils (Bld) [#/Vol] 8.6 10*3/uL Abnormal 1.4-7.0 [facility]; [facility] Work Phone: Comment on above: Test(s) 496497-GZL-Z ; 625943-QZC-X; 396322-PCU-T; 004250-Yhxessgjlpdew; 369051-Ocxbfwbdpyc, Total; 725715-WZV-N (Total);729353-Fekzs LDL-P; 266117-ADW Size; 489644-BF-XX Scorewas developed and its performance characteristics determinedby [employer]. It has not been cleared or approved by the Foodand Drug Administration.PATIENT WAS FASTINGPERFORMED BY: Digiting [address] [id number] BY: Sidecar70 [place] [facility]ibilityGr[facility]ville [facility] Center [id number] Neutrophils/100 WBC (Bld) 75 % Normal [facility] Work Phone: Comment on above: Test(s) 798079-VZC-P ; 563760-OGD-R; 561430-QDC-N; 656766-Mofjfxiexkhik; 828073-Pzmkbrpxnzs, Total; 980753-BGA-B (Total);670554-Lrtsj LDL-P; 787558-BUE Size; 042711-SV-XB Scorewas developed and its performance characteristics determinedby [employer]. It has not been cleared or approved by the Foodand Drug Administration.PATIENT WAS FASTINGPERFORMED BY: Carnad[address] [id number] BY: [employer] Dbcehr0192 [facility] [id number] Platelets (Bld) [#/Vol] 196 {x10E3/uL} Normal 150-450 [facility] Internal Medicine Work Phone: Comment on above: Test(s) 663295-JKL-K ; 021532-JTF-B; 815304-UHH-E; 579221-Qgljzlttzjcfu; 065553-Mxoutpvcoqe, Total; 140769-UFN-C (Total);333106-Fbhnh LDL-P; 194682-ABZ Size; 560422-RM-OU Scorewas developed and its performance characteristics determinedby [employer]. It has not been cleared or approved by the Foodand Drug Administration.PATIENT WAS FASTINGPERFORMED BY: [employer]Predict[address] [id number] BY: Sidecar[address] [facility] [id number] Platelets (Bld) [#/Vol] 196 10*3/uL Normal 150-450 [facility] Internal [facility]; [facility] Work Phone: Comment on above: Test(s) 696656-ABO-C ; 071212-VDK-K; 498920-BFP-Y; 203442-Odbbtnltqxkmo; 742782-Ascdsigazcy, Total; 752351-UVF-R (Total);935658-Sxeso LDL-P; 984234-HGR Size; 399793-NN-HW Scorewas developed and its performance characteristics determinedby [employer]. It has not been cleared or approved by the Foodand Drug Administration.PATIENT WAS FASTINGPERFORMED BY: SalesPredict[address] [id number] BY: [employer] [facility] [id number] RBC (Bld) [#/Vol] 4.81 {x10E6/uL} Normal 4.14-5.80 [facility] Internal Medicine Work Phone: Comment on above: Test(s) 841864-PBK-Q ; 616880-YLJ-S; 248506-YVI-W; 395034-Tdljnyeijpmbg; 346235-Qctnktwmfhk, Total; 660160-OEO-Z (Total);248582-Qcqwi LDL-P; 865025-HYO Size; 564135-IU-NW Scorewas developed and its performance characteristics determinedby [employer]. It has not been cleared or approved by the Foodand Drug Administration.PATIENT WAS FASTINGPERFORMED BY: SalesPredict[address] [id number] BY: [employer]6[address] [place] V[facility]ibilityGranville Medical Center [id number] RBC (Bld) [#/Vol] 4.81 10*6/uL Normal 4.14-5.80 [facility] Internal Medicine; [facility] Internal Medicine Work Phone: Comment on above: Test(s) 558865-LPX-V ; 930353-WPX-X; 214761-HJZ-R; 255495-Ffhsuwnwtobgh; 647401-Sqlwihbxfwc, Total; 153106-NJF-Q (Total);914561-Cfghf LDL-P; 371072-GCI Size; 234976-LP-KA Scorewas developed and its performance characteristics determinedby [employer]. It has not been cleared or approved by the Foodand Drug Administration.PATIENT WAS FASTINGPERFORMED BY: [employer]Predict[address] [id number] BY: [employer]6[address] Forensic LogicFormerly [facility], [facility] [id number] WBC (Bld) [#/Vol] 11.4 {x10E3/uL} Abnormal 3.4-10.8 [facility] Internal Medicine Work Phone: Comment on above: Test(s) 459994-GNO-P ; 354995-KFC-X; 768293-UCA-P; 700508-Hlkjjlwilennu; 049391-Ghbpaqrolge, Total; 205087-CKC-J (Total);278937-Qhnvc LDL-P; 701209-HZD Size; 832171-VE-EM Scorewas developed and its performance characteristics determinedby [employer]. It has not been cleared or approved by the Foodand Drug Administration.PATIENT WAS FASTINGPERFORMED BY: [employer]ict[address] [id number] BY: [employer] [facility] [id number] WBC (Bld) [#/Vol] 11.4 10*3/uL Abnormal 3.4-10.8 [facility]; [facility] Work Phone: Comment on above: Test(s) 694372-KTZ-A ; 612830-DAA-C; 906627-UJG-F; 527752-Caxkzbpvpmewk; 295575-Jcfkuotqbmz, Total; 550198-JYX-J (Total);778108-Qvdpt LDL-P; 158339-RBH Size; 001157-IB-VG Scorewas developed and its performance characteristics determinedby [employer]. It has not been cleared or approved by the Foodand Drug Administration.PATIENT WAS FASTINGPERFORMED BY: [employer] [address] [id number] BY: [employer] [facility] [id number] HgA1C , Office (08093)Ordere d By: Marilynn Wallace on 12-27-2019 HbA1c (Bld) [Mass fraction] 5.6 % Normal 4.6 - 7.1 [facility] Work Phone: METABOLIC PANEL, COMPREHENSI VE (99697)Ordered By: Switchboard Operator on 12-27-2019 Albumin [Mass/Vol] 4.4 g/dL Normal 3.8-4.8 [facility] Internal Medicine Work Phone: Comment on above: Test(s) 867436-VUQ-E ; 222890-TTW-N; 467177-ZJG-N; 006593-Netvqgabxtlua; 820697-Acexdgtasmc, Total; 339080-IUL-O (Total);229513-Owhip LDL-P; 694922-AGZ Size; 164680-DH-BZ Scorewas developed and its performance characteristics determinedby [employer]. It has not been cleared or approved by the Foodand Drug Administration.PATIENT WAS FASTINGPERFORMED BY: [employer] [id number] BY: [employer] Zinaqr[address] [facility] [id number] Albumin/Globulin [Mass ratio] 2.0 {ratio} Normal 1.2-2.2 [facility] Work Phone: Comment on above: Test(s) 565295-XGJ-A ; 408350-QBO-A; 133942-RIO-Z; 892548-Hwwkbkhagczel; 591362-Uophykqqkdz, Total; 467124-YLC-C (Total);776184-Xqrpk LDL-P; 929203-JHQ Size; 598859-JI-HW Scorewas developed and its performance characteristics determinedby [employer]. It has not been cleared or approved by the Foodand Drug Administration.PATIENT WAS FASTINGPERFORMED BY: SalesPredict[address] [id number] BY: [employer]70 [place] Forensic LogicFormerly [facility], [facility] [id number] ALP [Catalytic activity/Vol] 141 [iU]/L Abnormal 39117 [facility] Work Phone: Comment on above: Test(s) 178132-FBR-W ; 496292-JKE-Z; 814466-UGD-K; 316560-Bcsrrktxqcrra; 948529-Bpcuvwzsfll, Total; 240616-IPJ-A (Total);967357-Bmcvq LDL-P; 114163-BWW Size; 711508-BO-XL Scorewas developed and its performance characteristics determinedby [employer]. It has not been cleared or approved by the Foodand Drug Administration.PATIENT WAS FASTINGPERFORMED BY: Digiting [address] [id number] BY: [employer] Dnhxdr99[address] [facility] [id number] ALP [Catalytic activity/Vol] 141 U/L Abnormal 39-117 [facility]; [facility] Work Phone: Comment on above: Test(s) 300251-WXQ-M ; 423120-MBO-L; 014009-RQM-X; 748256-Rwzulqihmoqsb; 276608-Rxirrrgexem, Total; 870446-GEG-U (Total);058469-Wonbu LDL-P; 064858-NLQ Size; 012967-DW-AC Scorewas developed and its performance characteristics determinedby [employer]. It has not been cleared or approved by the Foodand Drug Administration.PATIENT WAS FASTINGPERFORMED BY: [employer] [id number] BY: Unilife CorporationAlbuquerque Indian Health CenterKkxrmt1490 [facility] [id number] ALT [Catalytic activity/Vol] 102 [iU]/L Abnormal 0-44 [facility] Work Phone: Comment on above: Test(s) 422438-VUU-S ; 918791-ARN-H; 359790-RTP-E; 764112-Gloukqcbpyhiz; 432042-Msvyfwkyrgx, Total; 824000-IBL-W (Total);108193-Ujftw LDL-P; 479326-HEJ Size; 536117-ZF-ZH Scorewas developed and its performance characteristics determinedby [employer]. It has not been cleared or approved by the Foodand Drug Administration.PATIENT WAS FASTINGPERFORMED BY: [employer] [id number] BY: [employer] Wjemec[address] [facility] [id number] ALT [Catalytic activity/Vol] 102 U/L Abnormal 0-44 [facility]; [facility] Work Phone: Comment on above: Test(s) 261278-CHY-L ; 553193-WVW-V; 571605-DRC-F; 905285-Ttnveesdvkixf; 877938-Fzavdwaibnl, Total; 343459-ELI-C (Total);787050-Izfip LDL-P; 531763-XAL Size; 804300-NM-EG Scorewas developed and its performance characteristics determinedby [employer]. It has not been cleared or approved by the Foodand Drug Administration.PATIENT WAS FASTINGPERFORMED BY: [employer] [id number] BY: Unilife CorporationEssex County HospitalWudnwb58[address] [facility] [id number] AST [Catalytic activity/Vol] 57 [iU]/L Abnormal 0-40 [facility] Work Phone: Comment on above: Test(s) 194442-KVW-D ; 994276-ERV-L; 726997-UTY-U; 130181-Kjckkwjzpjppg; 646118-Uvrtjptepqo, Total; 006454-LEI-J (Total);374369-Qwmfu LDL-P; 397211-HTJ Size; 482079-JF-WZ Scorewas developed and its performance characteristics determinedby [employer]. It has not been cleared or approved by the Foodand Drug Administration.PATIENT WAS FASTINGPERFORMED BY: Digiting [address] [id number] BY: Sidecar70 Sequitur LabsFormerly [facility], [facility] [id number] AST [Catalytic activity/Vol] 57 U/L Abnormal 0-40 [facility]; [facility] Internal Medicine Work Phone: Comment on above: Test(s) 577497-NFH-P ; 138846-DBY-U; 168882-DUG-U; 239404-Wpmortfmrjhnp; 928467-Fkgniwjfljt, Total; 202019-ART-I (Total);828545-Kpdxy LDL-P; 805679-RIE Size; 539509-JJ-EV Scorewas developed and its performance characteristics determinedby [employer]. It has not been cleared or approved by the Foodand Drug Administration.PATIENT WAS FASTINGPERFORMED BY: Digiting [address] [id number] BY: [employer]6[address] [place] VizibilityGranville Medical Center [id number] Bilirubin [Mass/Vol] 0.3 mg/dL Normal 0.0-1.2 [facility] Internal Medicine Work Phone: Comment on above: Test(s) 646322-SRE-J ; 718228-NIU-I; 373279-AAO-A; 945500-Ggapeginemkaj; 576370-Pokxysjknaj, Total; 901183-NIH-A (Total);086729-Yocni LDL-P; 262145-ZJK Size; 049196-UU-ZH Scorewas developed and its performance characteristics determinedby [employer]. It has not been cleared or approved by the Foodand Drug Administration.PATIENT WAS FASTINGPERFORMED BY: SalesPredict[address] [id number] BY: [employer] Ntdtsh4090 [place] VizibilityGranville Medical Center [id number] Calcium [Mass/Vol] 9.4 mg/dL Normal 8.6-10.2 [facility] Internal Medicine Work Phone: Comment on above: Test(s) 925476-IQM-U ; 195827-YZC-L; 826322-LIG-J; 198225-Ycnesxwrzhdep; 969637-Xtnxfjkwcrt, Total; 682621-MNS-N (Total);307682-Jumqd LDL-P; 900257-FBD Size; 413389-QG-XK Scorewas developed and its performance characteristics determinedby [employer]. It has not been cleared or approved by the Foodand Drug Administration.PATIENT WAS FASTINGPERFORMED BY: SalesPredict[address] [id number] BY: [employer] [id number] Chloride [Moles/Vol] 104 mmol/L Normal 96-106 [facility] Internal Medicine Work Phone: Comment on above: Test(s) 169682-EDV-C ; 550092-VKT-L; 298738-NMH-L; 535392-Zcrlhvglwaidi; 722830-Bcbilutmexy, Total; 334136-TKM-E (Total);041752-Xoave LDL-P; 863593-VTX Size; 381342-OC-OC Scorewas developed and its performance characteristics determinedby [employer]. It has not been cleared or approved by the Foodand Drug Administration.PATIENT WAS FASTINGPERFORMED BY: Digiting [address] [id number] BY: [employer] Pmdwgc35[address] [facility] [id number] CO2 [Moles/Vol] 21 mmol/L Normal 20-29 [facility] Internal Medicine Work Phone: Comment on above: Test(s) 940006-QZP-T ; 701891-HUS-B; 485545-IXR-Q; 799817-Ansulrhtcaxhl; 004035-Hmgcscwxdfp, Total; 241458-QTS-M (Total);507682-Zhskb LDL-P; 882196-HNQ Size; 391437-MK-GM Scorewas developed and its performance characteristics determinedby [employer]. It has not been cleared or approved by the Foodand Drug Administration.PATIENT WAS FASTINGPERFORMED BY: Digiting [address] [id number] BY: Sidecar[address] [facility] [id number] Creatinine [Mass/Vol] 1.24 mg/dL Normal 0.76-1.27 [facility] Work Phone: Comment on above: Test(s) 108397-URY-I ; 351624-JNZ-V; 748771-XJS-S; 602008-Nzomobfmdarfq; 437971-Rfltlshydzs, Total; 188138-HYP-A (Total);922433-Qdvxs LDL-P; 762032-LKM Size; 913348-ZX-LZ Scorewas developed and its performance characteristics determinedby [employer]. It has not been cleared or approved by the Foodand Drug Administration.PATIENT WAS FASTINGPERFORMED BY: Digiting [address] [id number] BY: [employer] Aqhosf50[address] [facility] [id number] GFR/1.73 sq M predicted among blacks CKD-EPI (S/P/Bld) [Vol rate/Area] 70 mL/min/1.73 Normal [facility] Work Phone: Comment on above: Test(s) 807914-YQP-V ; 553721-YEZ-P; 576856-VMY-D; 879192-Mkzigidngeytx; 722132-Ofrhesrpdvl, Total; 801147-PLZ-A (Total);616730-Klyxm LDL-P; 067966-RCZ Size; 454787-JJ-SC Scorewas developed and its performance characteristics determinedby [employer]. It has not been cleared or approved by the Foodand Drug Administration.PATIENT WAS FASTINGPERFORMED BY: Digiting [address] [id number] BY: Sidecar[address] [facility] [id number] GFR/1.73 sq M predicted among non-blacks CKD-EPI (S/P/Bld) [Vol rate/Area] 61 mL/min/1.73 Normal [facility] Work Phone: Comment on above: Test(s) 435869-TZW-O ; 915123-YVZ-L; 785361-TDO-N; 012231-Sebjqdyunabwe; 185430-Bfzbeuwnysn, Total; 479791-FMQ-D (Total);387354-Nylnb LDL-P; 529748-SXL Size; 136146-WV-QK Scorewas developed and its performance characteristics determinedby [employer]. It has not been cleared or approved by the Foodand Drug Administration.PATIENT WAS FASTINGPERFORMED BY: Digiting [address] [id number] BY: [employer] [facility] [id number] Globulin (S) [Mass/Vol] 2.2 g/dL Normal 1.5-4.5 [facility] Work Phone: Comment on above: Test(s) 420392-XVP-P ; 915253-FDQ-Q; 110659-MZS-K; 033062-Jqcmgprdgaabm; 538346-Kuxbybajiuu, Total; 874782-JSN-A (Total);003179-Ayabr LDL-P; 689973-BIV Size; 849884-DA-CE Scorewas developed and its performance characteristics determinedby [employer]. It has not been cleared or approved by the Foodand Drug Administration.PATIENT WAS FASTINGPERFORMED BY: Digiting [address] [id number] BY: Hipsterlin6[address] [facility] [id number] Glucose [Mass/Vol] 94 mg/dL Normal 65-99 [facility] Internal Medicine Work Phone: Comment on above: Test(s) 664840-NAY-Z ; 130579-GNM-B; 678056-GTE-T; 157554-Mxnwielnzxamf; 329686-Ntcjjhgjjxu, Total; 538596-SGG-P (Total);763965-Valnv LDL-P; 450463-ZTG Size; 459794-XX-HR Scorewas developed and its performance characteristics determinedby [employer]. It has not been cleared or approved by the Foodand Drug Administration.PATIENT WAS FASTINGPERFORMED BY: SalesPredict[address] [id number] BY: Sidecar70 Sequitur LabsFormerly [facility], [facility] [id number] Potassium [Moles/Vol] 4.4 mmol/L Normal 3.5-5.2 [facility] Internal Medicine Work Phone: Comment on above: Test(s) 325376-GZY-J ; 506535-UNK-C; 306315-CTV-L; 105320-Tmjynqipgxlbp; 730875-Yoklkvarqwy, Total; 579906-KRH-W (Total);630741-Fiqat LDL-P; 342614-CKS Size; 353974-NG-XG Scorewas developed and its performance characteristics determinedby [employer]. It has not been cleared or approved by the FoodValocor The[employer] Drug Administration.PATIENT WAS FASTINGPERFORMED BY: Digiting [address] [id number] BY: [employer]6[address] [place] VizibilityGranville [facility] Center [id number] Protein [Mass/Vol] 6.6 g/dL Normal 6.0-8.5 [facility] Internal Medicine Work Phone: Comment on above: Test(s) 177465-EEN-B ; 123810-NRE-U; 578696-LHK-A; 033290-Wwnnhnljietzf; 549765-Borjrnqilpd, Total; 325434-PQT-K (Total);946255-Gciqx LDL-P; 816934-KUG Size; 961385-KZ-DJ Scorewas developed and its performance characteristics determinedby [employer]. It has not been cleared or approved by the Foodand Drug Administration.PATIENT WAS FASTINGPERFORMED BY: Digiting [address] [id number] BY: [employer] Gmkbbo7584 [place] VizibilityGranville Medical Center [id number] Sodium [Moles/Vol] 141 mmol/L Normal 134-144 [facility] Internal Medicine Work Phone: Comment on above: Test(s) 587933-FOS-V ; 540948-AOE-F; 706940-SDS-H; 101743-Hsxbtuzgxvpzi; 007680-Rxnqxvurhcd, Total; 443579-QSL-R (Total);568552-Jcugo LDL-P; 337907-QEQ Size; 677810-WH-LN Scorewas developed and its performance characteristics determinedby [employer]. It has not been cleared or approved by the Foodand Drug Administration.PATIENT WAS FASTINGPERFORMED BY: Digiting [address] [id number] BY: [employer] [facility] [id number] Urea nitrogen [Mass/Vol] 15 mg/dL Normal 8-27 [facility] Internal Medicine Work Phone: Comment on above: Test(s) 993890-LTR-D ; 551421-MVZ-O; 060583-GUH-K; 332206-Obmbpmqmiqeoj; 854023-Nfwumzjluld, Total; 483377-TUK-O (Total);499340-Pzhqp LDL-P; 357001-MIN Size; 062758-AB-TW Scorewas developed and its performance characteristics determinedby [employer]. It has not been cleared or approved by the Foodand Drug Administration.PATIENT WAS FASTINGPERFORMED BY: Digiting [address] [id number] BY: StartpackEssex County HospitalKlpsri87[address] [facility] [id number] Urea nitrogen/Creatinine [Mass ratio] 12 mg/mg Normal 10-24 [facility] Internal Medicine Work Phone: Comment on above: Test(s) 922853-QXX-M ; 671974-XJL-L; 647706-EGW-D; 241576-Anivcenililoe; 234550-Grtkyjvkest, Total; 835844-RDF-T (Total);122844-Emiun LDL-P; 832716-XZY Size; 013375-MB-XS Scorewas developed and its performance characteristics determinedby [employer]. It has not been cleared or approved by the Foodand Drug Administration.PATIENT WAS FASTINGPERFORMED BY: SalesPredict[address] [id number] BY: Sidecar70 [facility] [id number] MICROALBUMINOrdered By: Syst em Senior Mobile Developer on 12-27-2019 Albumin DL <= 20 mg/L (U) [Mass/Vol] 7.5 ug/mL Normal Comprehensiv e Internal Medicine Work Phone: Comment on above: Test(s) 393956-OJX-J ; 467315-ZYB-C; 290859-YCV-C; 285348-Yygxrowjhzlwx; 252330-Wismhjhqzce, Total; 005757-WKY-S (Total);142202-Paaes LDL-P; 970566-SBJ Size; 766723-ZK-GJ Scorewas developed and its performance characteristics determinedby [employer]. It has not been cleared or approved by the Foodand Drug Administration.PATIENT WAS FASTINGPERFORMED BY: SalesPredict[address] [id number] BY: Sidecar70 [facility] [id number] Albumin/Creatinine (U) [Mass ratio] 3 {mg/g_creat} Normal 0-29 [facility] Work Phone: Comment on above: Normal: 0 - 29 Moder ately increased: 30 - 300 Severely increased: >300 Please note reference interval change Test(s) 084348-TPP-T ; 005209-HOO-O; 416538-KEY-W; 316553-Grdvoyvljeell; 220800-Ckvxgiuvgcs, Total; 520534-ANX-O (Total);306665-Nvqwj LDL-P; 373078-NTP Size; 252473-XE-GV Scorewas developed and its performance characteristics determinedby [employer]. It has not been cleared or approved by the Foodand Drug Administration.PATIENT WAS FASTINGPERFORMED BY: Digiting [address] [id number] BY: Sidecar70 [employer]it[employer] LabsFormerly [facility], [facility] [id number] Creatinine (U) [Mass/Vol] 236.7 mg/dL Normal [facility] Work Phone: Comment on above: Test(s) 203102-PRL-L ; 562698-RRQ-B; 582093-WJO-J; 127687-Vzmsojlgfpzaw; 983256-Fbygwyxdekx, Total; 911647-BEZ-G (Total);682264-Wqmnj LDL-P; 823612-NEU Size; 213561-JT-GJ Scorewas developed and its performance characteristics determinedby [employer]. It has not been cleared or approved by the Foodand Drug Administration.PATIENT WAS FASTINGPERFORMED BY: Digiting [address] [id number] BY: Sidecar70 [employer] LabsFormerly [facility], [facility] [id number] NMR Profile (44796)Ordered B y: Switchboard Operator on 12-27-2019 Cholesterol [Mass/Vol] 145 mg/dL Normal 100-199 [facility] Work Phone: Comment on above: Test(s) 231641-NEG-V ; 541850-ILW-P; 437700-DFI-J; 073251-Ysulmpmpthgpj; 723207-Etiwbvllytg, Total; 950043-NKC-N (Total);985618-Vfjmb LDL-P; 207717-DBA Size; 987584-DK-OD Scorewas developed and its performance characteristics determinedby [employer]. It has not been cleared or approved by the Foodand Drug Administration.PATIENT WAS FASTINGPERFORMED BY: Digiting [address] [id number] BY: Sidecar70 [place] VizibilityGranville Medical Center [id number] Lipoprotein.alpha [Moles/Vol] 26.9 umol/L Abnormal [facility] Work Phone: Comment on above: Test(s) 550948-VAH-H ; 533863-NWG-P; 851075-FAM-U; 053216-Dgneyceijfbcx; 962407-Clqmbtlcxlq, Total; 961754-KBL-N (Total);603198-Qfocu LDL-P; 800243-GHA Size; 438691-NW-KZ Scorewas developed and its performance characteristics determinedby [employer]. It has not been cleared or approved by the Foodand Drug Administration.PATIENT WAS FASTINGPERFORMED BY: BN LabCoBrayola [address] [id number] BY: CB [facility] Clusaj0[address] [facility] [id number] Lipoprotein.beta.sub particle [Entitic length] 20.2 nm Abnormal [facility] Work Phone: Comment on above: INTERPRETATIVE INFORMATION PARTICLE CONCENTRATION AND SIZE <--Lower CVD Risk Higher CVD Risk--> LDL AND HDL PARTICLES Percentile in Reference Population HDL-P (total) High 75th 50th 25th Low >34.9 34.9 30.5 26.7 <26.7 . Small LDL-P Low 25th 50th 75th High <117 117 527 839 >839 . LDL Size <-Large (Pattern A)-> <-Small (Pattern B)-> 23.0 20.6 20.5 19.0 Small LDL-P and LDL Size are associated with CVD risk, but not afterLDL-P is taken into account. Test(s) 865846-OFE-W ; 045890-RTT-E; 378813-XEO-H; 436879-Rokfdvrdogwvw; 207354-Ynnnwbfadnw, Total; 735745-ILW-I (Total);240558-Nfhep LDL-P; 532967-VUS Size; 208708-EX-MJ Scorewas developed and its performance characteristics determinedby [employer]. It has not been cleared or approved by the Foodand Drug Administration.PATIENT WAS FASTINGPERFORMED BY: [employer] Corporation[address] [id number] BY: Unilife CorporationEssex County HospitalFgexcy24[address] [facility] [id number] Lipoprotein.beta.sub particle [Moles/Vol] 1326 nmol/L Abnormal [facility] Work Phone: Comment on above: Low < 1000 Moderate 1000 - 1299 Borderline-High 1300 - 1599 High 1600 - 2000 Very High > 2000 Test(s) 174684-KMS-P ; 560320-AYI-B; 735007-HPN-I; 100543-Bjrmigmqzremu; 541497-Uerovgmbpku, Total; 735174-LFP-E (Total);525611-Riacu LDL-P; 240002-IEI Size; 302108-AD-GB Scorewas developed and its performance characteristics determinedby [employer]. It has not been cleared or approved by the Foodand Drug Administration.PATIENT WAS FASTINGPERFORMED BY: [employer] [id number] BY: [employer] Hsfkie25[address] [facility] [id number] Lipoprotein.beta.sub particle.small [Moles/Vol] 799 nmol/L Abnormal [facility] Work Phone: Comment on above: Test(s) 647628-RZP-X ; 310560-DBI-D; 443171-TIQ-M; 475298-Hinjjvltpjiow; 778974-Zmecbmpwmqb, Total; 518673-ULF-I (Total);495306-Sxodu LDL-P; 252352-ZLW Size; 911819-FZ-ER Scorewas developed and its performance characteristics determinedby [employer]. It has not been cleared or approved by the Foodand Drug Administration.PATIENT WAS FASTINGPERFORMED BY: Digiting [address] [id number] BY: Unilife CorporationEssex County HospitalAlgckp70[address] [facility] [id number] Triglyceride [Mass/Vol] 131 mg/dL Normal 0-149 [facility] Internal Medicine Work Phone: Comment on above: Test(s) 056571-HAE-U ; 745988-XYV-I; 847408-IRV-K; 489119-Fkrdzcfpykrmq; 117308-Yblioxjsyhc, Total; 049465-WNT-F (Total);254887-Aeyxs LDL-P; 757094-TRC Size; 281697-VV-GN Scorewas developed and its performance characteristics determinedby [employer]. It has not been cleared or approved by the Foodand Drug Administration.PATIENT WAS FASTINGPERFORMED BY: SalesPredict[address] [id number] BY: [employer] [facility] [id number] NMR Profile (72945) 34 mg/dL Abnormal [facility] Internal Medicine Work Phone: Comment on above: Test(s) 767690-OUU-S ; 610377-WUD-A; 735448-USN-U; 179917-Lxzrjpcwvbeqc; 589527-Gqiuyvdrmtm, Total; 692386-AVN-A (Total);862671-Eqdxb LDL-P; 769573-NLM Size; 880916-IC-CW Scorewas developed and its performance characteristics determinedby [employer]. It has not been cleared or approved by the Foodand Drug Administration.PATIENT WAS FASTINGPERFORMED BY: Digiting [address] [id number] BY: StartpackEssex County HospitalYggtor0924 [facility] [id number] NMR Profile (12965) 85 mg/dL Normal 0-99 [facility] Internal Medicine Work Phone: Comment on above: . Optimal < 100 Abov e optimal 100 - 129 Borderline 130 - 159 High 160 - 189 Very high > 189 .LDL-C is inaccurate if patient is non-fasting. Test(s) 598459-ECT-C ; 322636-DST-E; 292087-MDA-A; 942789-Tuorslpymywso; 008807-Sldrfcaqzgm, Total; 432186-BFS-F (Total);913205-Pkjmh LDL-P; 407017-NHF Size; 855852-KJ-HI Scorewas developed and its performance characteristics determinedby [employer]. It has not been cleared or approved by the Foodand Drug Administration.PATIENT WAS FASTINGPERFORMED BY: Digiting [address] [id number] BY: All Together NowFormerly [facility], [facility] [id number] NMR Profile (06880) 131 mg/dL Normal 0-149 Compr ehensive Internal Medicine; [facility] Work Phone: NMR Profile (05574) 145 mg/dL Normal 100-199 Compr ehensive [facility]; [facility] Work Phone: TSH (38224)Ordered By: [employer] Senior Mobile Developer on 12-27-2019 TSH Qn 2.100 {uIU/mL} Normal 0.450-4.50 0 [facility] Work Phone: Comment on above: Test(s) 530196-WEG-A ; 402872-HYY-Z; 777166-GMX-E; 878180-Gyrfaangilpfz; 032955-Nzeumkmtggk, Total; 967383-QLS-C (Total);836653-Yeqdn LDL-P; 809074-XYB Size; 957953-TK-IZ Scorewas developed and its performance characteristics determinedby [employer]. It has not been cleared or approved by the Foodand Drug Administration.PATIENT WAS FASTINGPERFORMED BY: Digiting [address] [id number] BY: [employer] Systems6370 Sequitur LabsFormerly [facility] [id number] URINALYSIS, W/ MICRO (61466) Ordered By: Switchboard Operator on 12-27-2019 Appearance (U) Cloudy Abnormal Comprehens damien Internal Medicine Work Phone: Comment on above: Test(s) 546505-FWR-J ; 222134-BAJ-I; 547278-SCY-S; 137701-Afjtvxgcmtduo; 169764-Ejolguoglpg, Total; 005264-VHV-Q (Total);484329-Vueoi LDL-P; 548764-FXF Size; 572515-JQ-WC Scorewas developed and its performance characteristics determinedby [employer]. It has not been cleared or approved by the Foodand Drug Administration.PATIENT WAS FASTINGPERFORMED BY: Digiting [address] [id number] BY: [employer]ForZero [facility] [id number] Bilirubin Ql (U) Negative Normal Comprehe nsive Internal Medicine Work Phone: Comment on above: Test(s) 110370-RFK-R ; 278960-UFA-X; 682550-YAD-Y; 677968-Wxwtrvrtoodpw; 638103-Mhjmhpheabg, Total; 743705-WNG-S (Total);563192-Ygfqy LDL-P; 580512-VFI Size; 994526-MK-XU Scorewas developed and its performance characteristics determinedby [employer]. It has not been cleared or approved by the Foodand Drug Administration.PATIENT WAS FASTINGPERFORMED BY: Digiting [address] [id number] BY: [employer] [facility] [id number] Bilirubin Ql (U) Negative Normal Comprehe nsive Internal Medicine; [facility] Work Phone: Comment on above: Test(s) 072797-VHC-X ; 659360-AYW-E; 194149-AAO-Z; 287414-Fyegaazexlnyl; 618157-Zbomjiazlnq, Total; 420666-WIW-Q (Total);680694-Vprjp LDL-P; 383734-MEP Size; 364460-CV-NS Scorewas developed and its performance characteristics determinedby [employer]. It has not been cleared or approved by the Foodand Drug Administration.PATIENT WAS FASTINGPERFORMED BY: Carnad[address] [id number] BY: Unilife CorporationEssex County HospitalIqotnl8[address] [facility] [id number] Color (U) Yellow Normal [facility] Work Phone: Comment on above: Test(s) 064384-VAW-Y ; 976807-ZBB-A; 513487-FZQ-R; 043321-Ylgfbwrdnqmvw; 386869-Bcgunjrksnr, Total; 350425-EEV-P (Total);160362-Quzpy LDL-P; 936433-UHC Size; 801368-EI-QY Scorewas developed and its performance characteristics determinedby [employer]. It has not been cleared or approved by the Foodand Drug Administration.PATIENT WAS FASTINGPERFORMED BY: Digiting [address] [id number] BY: Sidecar[address] [facility] [id number] Glucose Ql (U) Negative Normal Comprehens damien [facility] Work Phone: Comment on above: Test(s) 139242-SAP-I ; 141729-UHC-T; 860633-TXY-S; 715894-Vxvchrhzgzlho; 197650-Myiufavwgxh, Total; 789105-DFH-T (Total);050291-Ubwbc LDL-P; 982159-IYT Size; 500407-VE-XP Scorewas developed and its performance characteristics determinedby [employer]. It has not been cleared or approved by the Foodand Drug Administration.PATIENT WAS FASTINGPERFORMED BY: Carnad[address] [id number] BY: Unilife CorporationEssex County HospitalZxspao30[address] [facility] [id number] Glucose Ql (U) Negative Normal Comprehens [facility]; [facility] Work Phone: Comment on above: Test(s) 365099-BVK-V ; 850049-NRC-J; 900053-SUB-E; 459038-Qqgqykavmbqco; 957124-Oiptfxygkid, Total; 824364-BMI-E (Total);398953-Esrjw LDL-P; 016633-AMX Size; 383252-WK-EM Scorewas developed and its performance characteristics determinedby [employer]. It has not been cleared or approved by the Foodand Drug Administration.PATIENT WAS FASTINGPERFORMED BY: Carnad[address] [id number] BY: [employer] Ctjfam[address] [facility]ibilityGranville Medical Center [id number] Hemoglobin Ql (U) Negative Normal Compreh ensive Internal Medicine Work Phone: Comment on above: Test(s) 355430-ZDF-X ; 295142-TVI-E; 859481-ASA-A; 109446-Ztecqwprvqcos; 024424-Bgmqqsttuye, Total; 273630-UHR-M (Total);833096-Pellz LDL-P; 774663-NZV Size; 916359-KH-BV Scorewas developed and its performance characteristics determinedby [employer]. It has not been cleared or approved by the Foodand Drug Administration.PATIENT WAS FASTINGPERFORMED BY: Digiting [address] [id number] BY: Sidecar70 [facility]oftGr[facility] Center [id number] Hemoglobin Ql (U) Negative Normal Compreh ensive [facility] Medicine; [facility] Work Phone: Comment on above: Test(s) 072301-OYQ-Q ; 900856-ZZF-J; 942071-OTC-V; 822977-Yhmijlghmobde; 759804-Gmemgyzqjjh, Total; 339757-UDA-W (Total);357805-Isbmo LDL-P; 775038-NFV Size; 957112-FM-KE Scorewas developed and its performance characteristics determinedby [employer]. It has not been cleared or approved by the Foodand Drug Administration.PATIENT WAS FASTINGPERFORMED BY: Carnad[address] [id number] BY: Unilife CorporationEssex County HospitalCgosjw3834 [facility]oftGr[facility] [id number] Ketones Ql (U) Negative Normal Comprehens [facility] Work Phone: Comment on above: Test(s) 477469-LNU-R ; 222498-NFF-F; 373756-RVY-U; 700982-Knexkhdlrvpoq; 583901-Stxwqzhvmek, Total; 101629-TDW-L (Total);589905-Ztbbx LDL-P; 031724-ITP Size; 169444-GX-MP Scorewas developed and its performance characteristics determinedby [employer]. It has not been cleared or approved by the Foodand Drug Administration.PATIENT WAS FASTINGPERFORMED BY: Digiting [address] [id number] BY: [facility] [id number] Ketones Ql (U) Negative Normal Comprehens [facility]; [facility] Work Phone: Comment on above: Test(s) 697408-HYF-N ; 626240-MCW-N; 552750-NKZ-D; 487742-Agkzkyvhasvtd; 175675-Twpznvlvbye, Total; 516606-BZV-Q (Total);589208-Ehfpl LDL-P; 643564-GAN Size; 425243-JN-BH Scorewas developed and its performance characteristics determinedby [employer]. It has not been cleared or approved by the Foodand Drug Administration.PATIENT WAS FASTINGPERFORMED BY: Digiting [address] [id number] BY: Sidecar70 [facility] [id number] Leukocyte esterase Test strip Ql (U) 1+ Abnormal [facility] Work Phone: Comment on above: Test(s) 644568-GWU-Y ; 734302-PCD-G; 243464-WZU-H; 531566-Xkvyfvjwaedlu; 644572-Gajrdzhlemv, Total; 411340-YOX-M (Total);829198-Byvfq LDL-P; 578174-ZLC Size; 629063-AY-YJ Scorewas developed and its performance characteristics determinedby [employer]. It has not been cleared or approved by the Foodand Drug Administration.PATIENT WAS FASTINGPERFORMED BY: Carnad[address] [id number] BY: Unilife CorporationEssex County HospitalYusvmb5[address] [facility] [id number] Microscopic observation LM Nom (Urine sed) See below: Normal [facility] Work Phone: Comment on above: Microscopic was jayden cated and was performed. Test(s) 241905-XID-U ; 139865-DWA-I; 657241-ARZ-C; 358600-Lbjziukoytzts; 107825-Lkotifkpsjv, Total; 284026-CXC-Q (Total);743331-Qfpcc LDL-P; 427188-DDC Size; 821055-OE-HU Scorewas developed and its performance characteristics determinedby [employer]. It has not been cleared or approved by the Foodand Drug Administration.PATIENT WAS FASTINGPERFORMED BY: Digiting [address] [id number] BY: [employer] Rttmgj16[address] [facility] [id number] Nitrite Ql (U) Negative Normal Comprehens damien [facility] Work Phone: Comment on above: Test(s) 049891-PJF-C ; 330293-NNC-D; 285227-URR-V; 436398-Imwshgfovcref; 056493-Kygxznxzild, Total; 097121-ATU-R (Total);369489-Vtllq LDL-P; 309730-PBE Size; 082235-IX-IJ Scorewas developed and its performance characteristics determinedby [employer]. It has not been cleared or approved by the Foodand Drug Administration.PATIENT WAS FASTINGPERFORMED BY: Carnad[address] [id number] BY: StartpackHaley [place]ille 1627970 [facility] [id number] Nitrite Ql (U) Negative Normal Comprehens dam[facility]; [facility] Work Phone: Comment on above: Test(s) 210185-YLB-E ; 449264-YEW-P; 959289-IAZ-A; 618055-Wgizudydwtyxv; 978731-Igpehkxirra, Total; 134565-MZW-K (Total);762486-Fious LDL-P; 192919-NWK Size; 198594-IM-RW Scorewas developed and its performance characteristics determinedby [employer]. It has not been cleared or approved by the Foodand Drug Administration.PATIENT WAS FASTINGPERFORMED BY: Digiting [address] [id number] BY: All Together NowFormerly [facility], [facility] [id number] pH (U) 5.5 [pH] Normal 5.0-7.5 [facility] Internal Medicine Work Phone: Comment on above: Test(s) 357713-KNO-V ; 350796-NEP-B; 553054-CXE-G; 860855-Mrdqbyuskpxwx; 355097-Aaaywbcfxey, Total; 071896-EVV-Z (Total);698598-Ogmey LDL-P; 770376-EJA Size; 544467-YF-LY Scorewas developed and its performance characteristics determinedby [employer]. It has not been cleared or approved by the Foodand Drug Administration.PATIENT WAS FASTINGPERFORMED BY: SalesPredict[address] [id number] BY: Sidecar70 Sequitur LabsFormerly [facility], [facility] [id number] Protein Ql (U) Trace Normal Comprehens damien [facility] Medicine Work Phone: Comment on above: Test(s) 595681-YYS-H ; 116164-CNE-K; 795506-QSV-D; 225354-Upzhyutfxxjyi; 103701-Rtozoxypofx, Total; 693349-MGM-N (Total);421671-Jtehx LDL-P; 198550-IPV Size; 300016-OK-ZW Scorewas developed and its performance characteristics determinedby [employer]. It has not been cleared or approved by the Foodand Drug Administration.PATIENT WAS FASTINGPERFORMED BY: Digiting [address] [id number] BY: All Together Nowblin [place] [id number] Specific gravity (U) [Rel density] 1.022 1 Normal 1.005-1.03 0 [facility] Internal Medicine Work Phone: Comment on above: Test(s) 662155-ZHP-S ; 000412-FAU-U; 530413-TSK-A; 350541-Yvcohoubmlobp; 718467-Arhyjgrxisg, Total; 147407-MHP-B (Total);387901-Rtrsr LDL-P; 440424-VCL Size; 686428-LV-KV Scorewas developed and its performance characteristics determinedby [employer]. It has not been cleared or approved by the Foodand Drug Administration.PATIENT WAS FASTINGPERFORMED BY: Digiting [address] [id number] BY: Sidecar70 [employer] [facility] [id number] Urobilinogen (U) [Mass/Vol] 0.2 mg/dL Normal 0.2-1.0 [facility] Internal [facility] Internal Medicine Work Phone: Comment on above: Test(s) 409548-PKS-G ; 849406-BSH-Z; 327990-ADF-G; 957420-Nvrmibdfndpit; 507235-Nlcribrxhbk, Total; 742579-KZV-R (Total);965983-Hnkzs LDL-P; 444127-SMK Size; 290165-YB-LB Scorewas developed and its performance characteristics determinedby [employer]. It has not been cleared or approved by the Foodand Drug Administration.PATIENT WAS FASTINGPERFORMED BY: Digiting [address] [id number] BY: Hipsterlin6[address] [facility] [id number] Urobilinogen Test strip (U) [Mass/Vol] 0.2 mg/dL Normal 0.2-1.0 [facility] Internal Medicine Work Phone: Comment on above: Test(s) 648541-WBX-A ; 484456-TTV-C; 712103-FEO-U; 667537-Vgkfrzpdwdvtt; 757014-Vjjwujfsmhm, Total; 554284-ZPW-T (Total);696252-Xqrgz LDL-P; 304532-OWL Size; 655006-KD-CF Scorewas developed and its performance characteristics determinedby [employer]. It has not been cleared or approved by the Foodand Drug Administration.PATIENT WAS FASTINGPERFORMED BY: [place] 651307 [facility] [id number] BY: Lifeloc TechnologiesRehabilitation Institute Of Michigan6[address] [facility] [id number] Blood Glucose , Office ([phone])Ordered By: Stacy Jensen on 08-02-2019 Glucose Glucometer (BldC) [Moles/Vol] 165 1 Normal [facility] Work Phone: HgA1C , Office ([phone])Ordere d By: Stacy Jensen on 08-02-2019 HbA1c (Bld) [Mass fraction] 5.5 % Normal 4.6 - 7.1 [facility] Work Phone: MICROALBUMIN 24 HOUR OR RAND OM ([phone])Ordered By: Switchboard Operator on 08-02-2019 Albumin DL <= 20 mg/L (U) [Mass/Vol] 114.8 ug/mL Normal Comprehensiv e Internal Medicine Work Phone: Comment on above: PATIENT NOT FASTINGP ERFORMED BY: Unilife CorporationEssex County HospitalOfvzuf9[address] [facility] [id number] Albumin/Creatinine (U) [Mass ratio] 45.8 {mg/g_creat} Abnormal 0.0-30.0 [facility] Work Phone: Comment on above: Normal: 0.0 - 30.0 A lbuminuria: 31.0 - 300.0 Clinical albuminuria: >300.0 Effective August 13, 2019 the reference interval for Albumin/Creatinine Ratio will be changing to: Normal: 0 - 29 Moderately increased: 30 - 300 Severely Increased: >300 The result type will also be changing to 0. PATIENT NOT FASTINGP ERFORMED BY: Unilife CorporationEssex County HospitalChsvqx0273 [facility] [id number] Creatinine (U) [Mass/Vol] 250.6 mg/dL Normal [facility] Work Phone: Comment on above: PATIENT NOT FASTINGP ERFORMED BY: CAROLA [facility] Gnofwy87[address] RoadDublin [place] [id number] Metabolic Panel, Basic (8004 8)Ordered By: Switchboard Operator on 08-02-2019 Calcium [Mass/Vol] 9.0 mg/dL Normal 8.6-10.[address] [facility] Internal Medicine Work Phone: Comment on above: PATIENT NOT FASTINGP ERFORMED BY: CB [facility] Wrvluw6084 [address] RoadDublin [place] [id number] Chloride [Moles/Vol] 105 mmol/L Normal 96-106 Comp rehensive Internal Medicine Work Phone: Comment on above: PATIENT NOT FASTINGP ERFORMED BY: CAROLA [facility] Liaaxl7[address] RoadDublin [place] [id number] CO2 [Moles/Vol] 21 mmol/L Normal 20-29 [facility] Work Phone: Comment on above: PATIENT NOT FASTINGP ERFORMED BY: CB [facility] Bbyasp7711 [address] RoadDublin [place] [id number] Creatinine [Mass/Vol] 1.11 mg/dL Normal 0.76-1.27 [facility] Work Phone: Comment on above: PATIENT NOT FASTINGP ERFORMED BY: CB [facility] Ilffob6984 [address] RoadDublin [place] [id number] GFR/1.73 sq M predicted among blacks CKD-EPI (S/P/Bld) [Vol rate/Area] 80 mL/min/1.73 Normal [facility] Work Phone: Comment on above: PATIENT NOT FASTINGP ERFORMED BY: CB [facility] Kaxnub2983 [address] RoadDublin [place] [id number] GFR/1.73 sq M predicted among non-blacks CKD-EPI (S/P/Bld) [Vol rate/Area] 69 mL/min/1.73 Normal [facility] Work Phone: Comment on above: PATIENT NOT FASTINGP ERFORMED BY: CAROLA [facility] Tqtigk6432 [address] RoadDublin [place] [id number] Glucose [Mass/Vol] 99 mg/dL Normal 65-99 [facility] Internal Medicine Work Phone: Comment on above: PATIENT NOT FASTINGP ERFORMED BY: CB [facility] Jyyivb6[address] RoadDublin [place] [id number] Potassium [Moles/Vol] 4.2 mmol/L Normal 3.5-5.2 [facility] Work Phone: Comment on above: PATIENT NOT FASTINGP ERFORMED BY: CB [facility] Vfwjck6867 [address] RoadDublin [place] [id number] Sodium [Moles/Vol] 142 mmol/L Normal 134-144 [facility] Internal Medicine Work Phone: Comment on above: PATIENT NOT FASTINGP ERFORMED BY: CB [facility] Ktkcba6968 [address] RoadDublin [place] [id number] Urea nitrogen [Mass/Vol] 15 mg/dL Normal 8-27 [facility] Work Phone: Comment on above: PATIENT NOT FASTINGP ERFORMED BY: CB [facility] Kiutkw7333 [address] RoadDublin [place] [id number] Urea nitrogen/Creatinine [Mass ratio] 14 mg/mg Normal 10-24 [facility] Work Phone: Comment on above: PATIENT NOT FASTINGP ERFORMED BY: CB [facility] Ptfscu0470 [address] RoadDublin [place] [id number] CALCIFIDIOL (07900) VIT D 25 Ordered By: Switchboard Operator on 07-13-2019 25-Hydroxyvitamin D2+25-Hydroxyvitamin D3 [Mass/Vol] 38.7 ng/mL Normal 30.0-100.0 [facility] Work Phone: Comment on above: Vitamin D deficiency has been defined by the [place] ofMedicine and an Endocrine Society practice guideline as alevel of serum 25-OH vitamin D less than 20 ng/mL (1,2).The Endocrine Society went on to further define vitamin Dinsufficiency as a level between 21 and 29 ng/mL (2).1. IOM ([place] of Medicine). 2010. Dietary reference intakes for calcium and D. [place]: The National Academies Press.2. Rayna MF, Ana Luisa NC, William CUBA, et al. Evaluation, treatment, and prevention of vitamin D deficiency: an Endocrine Society clinical practice guideline. JCEM. 2010; 96(7):1911-30. Test(s) 289884-EGJ-V ; 217243-EQG-C; 391143-OPA-Y; 262162-Jawhqwifhgeuf; 907046-Jgbzctvjkdo, Total; 528350-JAL-P (Total);641882-Ckros LDL-P; 429277-RIS Size; 382768-MZ-UL Scorewas developed and its performance characteristics determinedby [employer]. It has not been cleared or approved by the Foodand Drug Administration.PATIENT WAS FASTINGPERFORMED BY: SalesPredict[address] [id number] BY: Sidecar70 Sequitur LabsFormerly [facility], [facility] [id number] CBC W/AUTO DIFF WBC (03735)O rdered By: Switchboard Operator on 07-13-2019 Basophils (Bld) [#/Vol] 0.1 {x10E3/uL} Normal 0.0-0.2 [facility] Work Phone: Comment on above: Test(s) 779554-JJG-P ; 074675-KVI-V; 906906-XZU-L; 080503-Fawitsupcuefq; 339545-Uxlpawjthnq, Total; 160931-NZL-Q (Total);393468-Jblin LDL-P; 277395-KBH Size; 199886-HE-RO Scorewas developed and its performance characteristics determinedby [employer]. It has not been cleared or approved by the Foodand Drug Administration.PATIENT WAS FASTINGPERFORMED BY: Digiting [address] [id number] BY: Sidecar70 [employer]it[employer] LabsFormerly [facility], [facility] [id number] Basophils (Bld) [#/Vol] 0.1 10*3/uL Normal 0.0-0.2 [facility]; [facility] Work Phone: Comment on above: Test(s) 788112-ZMF-B ; 068391-LHX-C; 665996-WWE-R; 608023-Wallafzcvldyz; 745087-Sjjjjdmfkqa, Total; 360882-BND-Z (Total);516566-Vwmxo LDL-P; 400062-CAC Size; 324255-IS-DU Scorewas developed and its performance characteristics determinedby [employer]. It has not been cleared or approved by the Foodand Drug Administration.PATIENT WAS FASTINGPERFORMED BY: Digiting [address] [id number] BY: Sidecar70 [facility] [id number] Basophils/100 WBC (Bld) 1 % Normal [facility] Work Phone: Comment on above: Test(s) 179214-PZV-O ; 855617-PPK-E; 843673-AGP-K; 376168-Milzjzgkuoiib; 047188-Cmbxekbrifm, Total; 412058-VBQ-Y (Total);788451-Wntxc LDL-P; 854605-GPQ Size; 261189-KD-XR Scorewas developed and its performance characteristics determinedby [employer]. It has not been cleared or approved by the Foodand Drug Administration.PATIENT WAS FASTINGPERFORMED BY: Digiting [address] [id number] BY: [employer] [facility] [id number] Eosinophils (Bld) [#/Vol] 0.2 {x10E3/uL} Normal 0.0-0.4 [facility] Work Phone: Comment on above: Test(s) 626151-ANG-X ; 412725-CGM-O; 831245-ENX-P; 110144-Jrjtvnxhecucm; 207466-Qsuqixrhfwe, Total; 100033-UQA-H (Total);812818-Nlegp LDL-P; 726133-BCX Size; 971903-JP-TR Scorewas developed and its performance characteristics determinedby [employer]. It has not been cleared or approved by the Foodand Drug Administration.PATIENT WAS FASTINGPERFORMED BY: Digiting [address] [id number] BY: [employer] Wqmwka3579 CompassoftGranville Medical Center [id number] Eosinophils (Bld) [#/Vol] 0.2 10*3/uL Normal 0.0-0.4 [facility]; [facility] Work Phone: Comment on above: Test(s) 867703-VKX-P ; 004411-BCK-P; 578110-RYQ-U; 497148-Bwtsnsiwjxlas; 709029-Odxftwmiuxj, Total; 447294-MYL-X (Total);634276-Lfsvy LDL-P; 262098-RRM Size; 566561-VY-AE Scorewas developed and its performance characteristics determinedby [employer]. It has not been cleared or approved by the Foodand Drug Administration.PATIENT WAS FASTINGPERFORMED BY: SalesPredict[address] [id number] BY: [employer] VizibilityGranville Medical Center [id number] Eosinophils/100 WBC (Bld) 2 % Normal [facility] Work Phone: Comment on above: Test(s) 248276-XMA-F ; 826979-RIN-I; 735928-VRC-J; 726293-Gcnrgsoofnpmj; 860788-Cswtwomsxmo, Total; 538420-YNU-B (Total);003134-Mdfnz LDL-P; 927874-WQQ Size; 571670-LW-JP Scorewas developed and its performance characteristics determinedby [employer]. It has not been cleared or approved by the Foodand Drug Administration.PATIENT WAS FASTINGPERFORMED BY: Digiting [address] [id number] BY: StartpackEssex County HospitalAmfdij0025 [facility] [id number] Erythrocyte distribution width (RBC) [Ratio] 13.5 % Normal 12.3-15.4 [facility] Work Phone: Comment on above: Effective July 30, 2019, the RDW pediatric reference interval will be removed and the adult reference interval will be changing to: Female 11.7 - 15.4 Male 11.6 - 15.4 Test(s) 640388-YJH-V ; 926940-VOL-U; 494678-TEU-M; 298793-Viuhpzshwqnvg; 360019-Krbtnamflco, Total; 227819-OKW-G (Total);543554-Vswai LDL-P; 113239-KQF Size; 857693-GQ-HE Scorewas developed and its performance characteristics determinedby [employer]. It has not been cleared or approved by the Foodand Drug Administration.PATIENT WAS FASTINGPERFORMED BY: SalesPredict[address] [id number] BY: Sidecar70 [facility] [id number] Hematocrit (Bld) [Volume fraction] 48.4 % Normal 37.5-51.0 [facility] Work Phone: Comment on above: Test(s) 855903-AJN-U ; 150869-JHA-L; 350046-UGH-B; 541819-Scxwiseybpjut; 905629-Vdfhtcstqpw, Total; 755536-VAP-J (Total);363989-Esrli LDL-P; 409624-HZN Size; 872507-UY-YA Scorewas developed and its performance characteristics determinedby [employer]. It has not been cleared or approved by the Foodand Drug Administration.PATIENT WAS FASTINGPERFORMED BY: SalesPredict[address] [id number] BY: [employer] Uiunfs4[address] [facility] [id number] Hemoglobin (Bld) [Mass/Vol] 16.6 g/dL Normal 13.0-17.7 [facility] Work Phone: Comment on above: Test(s) 666890-BCL-N ; 003436-TZL-P; 030456-KAB-O; 455236-Cbunglyslauft; 110164-Wlwzowulwba, Total; 275516-PYN-Z (Total);330572-Ujxqf LDL-P; 653966-ONE Size; 876559-JG-UR Scorewas developed and its performance characteristics determinedby [employer]. It has not been cleared or approved by the Foodand Drug Administration.PATIENT WAS FASTINGPERFORMED BY: Digiting [address] [id number] BY: [employer] Vbikye6388 CompassoftGranville Medical Center [id number] Immature granulocytes (Bld) [#/Vol] 0.1 {x10E3/uL} Normal 0.0-0.1 [facility] Work Phone: Comment on above: Test(s) 072998-KLR-J ; 342586-BYN-W; 278436-RRY-S; 504286-Wbyenpyjlxisf; 361748-Itgpuywuqiq, Total; 511765-KLO-M (Total);877155-Hqwnd LDL-P; 154656-WCO Size; 745058-YD-MW Scorewas developed and its performance characteristics determinedby [employer]. It has not been cleared or approved by the Foodand Drug Administration.PATIENT WAS FASTINGPERFORMED BY: Digiting [address] [id number] BY: [employer] VizibilityGranville Medical Center [id number] Immature granulocytes (Bld) [#/Vol] 0.1 10*3/uL Normal 0.0-0.1 [facility]; [facility] Work Phone: Comment on above: Test(s) 897470-DQO-E ; 285244-EKD-P; 926370-XMV-R; 481709-Hkthcanynjlzg; 263630-Ihrusoctbop, Total; 606205-JVH-V (Total);898224-Wxyha LDL-P; 883520-XVC Size; 421564-PT-JS Scorewas developed and its performance characteristics determinedby [employer]. It has not been cleared or approved by the Foodand Drug Administration.PATIENT WAS FASTINGPERFORMED BY: Digiting [address] [id number] BY: Sidecar[address] [facility] [id number] Immature granulocytes/100 WBC (Bld) 1 % Normal [facility] Work Phone: Comment on above: Test(s) 653597-CJC-M ; 634131-DEY-K; 469050-KHP-W; 917425-Vhrykysynyect; 044901-Ipmondkaxfq, Total; 405343-SZD-O (Total);955818-Nshku LDL-P; 599636-LFN Size; 272936-XK-SN Scorewas developed and its performance characteristics determinedby [employer]. It has not been cleared or approved by the Foodand Drug Administration.PATIENT WAS FASTINGPERFORMED BY: SalesPredict[address] [id number] BY: Unilife CorporationAlbuquerque Indian Health CenterYmvove8[address] [facility] [id number] Lymphocytes (Bld) [#/Vol] 2.4 {x10E3/uL} Normal 0.7-3.1 [facility] Work Phone: Comment on above: Test(s) 386582-ZKX-X ; 951606-HPK-T; 640292-BJC-R; 210122-Mlnaebamlopzl; 892656-Yaxkeyxnrvv, Total; 214517-LTS-M (Total);069047-Ffpaj LDL-P; 047161-LDR Size; 048218-XV-LY Scorewas developed and its performance characteristics determinedby [employer]. It has not been cleared or approved by the Foodand Drug Administration.PATIENT WAS FASTINGPERFORMED BY: Digiting [address] [id number] BY: Unilife CorporationEssex County HospitalEauole99[address] [facility] [id number] Lymphocytes (Bld) [#/Vol] 2.4 10*3/uL Normal 0.7-3.1 [facility]; [facility] Work Phone: Comment on above: Test(s) 407418-OGE-D ; 511672-UDD-K; 046778-AEG-T; 814118-Aqwngwlrmobti; 063843-Coebfxasjov, Total; 608435-JVQ-N (Total);464061-Ukapp LDL-P; 925336-FQI Size; 467220-JP-FX Scorewas developed and its performance characteristics determinedby [employer]. It has not been cleared or approved by the Foodand Drug Administration.PATIENT WAS FASTINGPERFORMED BY: Digiting [address] [id number] BY: All Together NowFormerly [facility], [facility] [id number] Lymphocytes/100 WBC (Bld) 20 % Normal [facility] Work Phone: Comment on above: Test(s) 779312-VDL-N ; 351659-YCP-X; 395867-WOI-R; 077015-Elcbzynuqsxkm; 291353-Cqrdrzdfelf, Total; 041710-LJJ-F (Total);664332-Nveim LDL-P; 828606-ZIN Size; 700469-KV-NB Scorewas developed and its performance characteristics determinedby [employer]. It has not been cleared or approved by the Foodand Drug Administration.PATIENT WAS FASTINGPERFORMED BY: Digiting [address] [id number] BY: Sidecar70 [place] Forensic LogicFormerly [facility], [facility] [id number] MCH (RBC) [Entitic mass] 30.6 pg Normal 26.6-33.0 [facility] Work Phone: Comment on above: Test(s) 892847-UJZ-X ; 927327-SQH-P; 152686-YJU-B; 095006-Zhqwmprbcrbjw; 238299-Bgpwazdcrtj, Total; 688050-NJM-H (Total);896175-Lmexr LDL-P; 023171-ZPY Size; 319114-BV-JR Scorewas developed and its performance characteristics determinedby [employer]. It has not been cleared or approved by the Foodand Drug Administration.PATIENT WAS FASTINGPERFORMED BY: Digiting [address] [id number] BY: Side[employer]70 [place] Forensic LogicFormerly [facility], [facility] [id number] MCHC (RBC) [Mass/Vol] 34.3 g/dL Normal 31.5-35.7 [facility] Work Phone: Comment on above: Test(s) 116771-QLQ-A ; 505459-OOO-L; 856095-AIT-B; 325956-Uiykyxuwfaltj; 085181-Qwujgxzrviq, Total; 956473-OKV-V (Total);503446-Kfgkg LDL-P; 007203-TZJ Size; 571485-MR-RP Scorewas developed and its performance characteristics determinedby [employer]. It has not been cleared or approved by the Foodand Drug Administration.PATIENT WAS FASTINGPERFORMED BY: [employer] [place] [address] [id number] BY: Sidecar70 Sequit[employer] LabsFormerly [facility], [facility] [id number] MCV (RBC) [Entitic vol] 89 fL Normal 79-97 [facility] Work Phone: Comment on above: Test(s) 090532-PIA-O ; 066473-RCI-Z; 401910-OHJ-R; 383104-Ohkycarkgxjtq; 989050-Ywcrlasyhqx, Total; 358228-UPF-U (Total);375938-Qmfwg LDL-P; 745518-IZD Size; 608748-LM-KO Scorewas developed and its performance characteristics determinedby [employer]. It has not been cleared or approved by the Foodand Drug Administration.PATIENT WAS FASTINGPERFORMED BY: SalesPredict[address] [id number] BY: [employer]6370 Sequitur LabsFormerly [facility], [facility] [id number] Monocytes (Bld) [#/Vol] 1.0 {x10E3/uL} Abnormal 0.1-0.9 [facility] Work Phone: Comment on above: Test(s) 121079-YOV-R ; 122559-OIQ-M; 824777-EVC-R; 018742-Badivupenpgbm; 993983-Kidifjzxafu, Total; 940614-DRS-S (Total);087713-Qktbq LDL-P; 872286-JTB Size; 968462-AB-ZC Scorewas developed and its performance characteristics determinedby [employer]. It has not been cleared or approved by the Foodand Drug Administration.PATIENT WAS FASTINGPERFORMED BY: [employer] [id number] BY: [employer] Jswtlh2748 [place] VizibilityGranville [facility] Center [id number] Monocytes (Bld) [#/Vol] 1.0 10*3/uL Abnormal 0.1-0.9 [facility]; [facility] Work Phone: Comment on above: Test(s) 984816-TIR-T ; 311988-DGX-I; 887443-NUK-E; 918528-Kyavwfycggejy; 933838-Zndtglmomto, Total; 726142-SOK-S (Total);423482-Dynvz LDL-P; 024708-KBI Size; 361846-AP-IY Scorewas developed and its performance characteristics determinedby [employer]. It has not been cleared or approved by the Foodand Drug Administration.PATIENT WAS FASTINGPERFORMED BY: Digiting [address] [id number] BY: Sidecar70 [employer]it[employer] LabsFormerly [facility], [facility] [id number] Monocytes/100 WBC (Bld) 9 % Normal [facility] Internal Medicine Work Phone: Comment on above: Test(s) 663672-OOD-R ; 564688-QUX-P; 249845-NZQ-Y; 985572-Cyxodmhgkvizy; 908640-Jmlkbuopxib, Total; 794810-QTP-W (Total);159841-Szafo LDL-P; 723204-HEU Size; 743495-JW-KT Scorewas developed and its performance characteristics determinedby [employer]. It has not been cleared or approved by the Foodand Drug Administration.PATIENT WAS FASTINGPERFORMED BY: Carnad[address] [id number] BY: [employer]6370 [place] [facility]ibilityGr[facility] [id number] Neutrophils (Bld) [#/Vol] 8.0 {x10E3/uL} Abnormal 1.4-7.0 [facility] Work Phone: Comment on above: Test(s) 878791-CFL-I ; 162901-VOX-Y; 639522-DXJ-M; 744542-Hwgvelcuwmwog; 152104-Oqapimgivsy, Total; 416693-XRM-E (Total);658341-Invql LDL-P; 687798-NRX Size; 219666-TA-OH Scorewas developed and its performance characteristics determinedby [employer]. It has not been cleared or approved by the Foodand Drug Administration.PATIENT WAS FASTINGPERFORMED BY: SalesPredict[address] [id number] BY: Sidecar[address] [facility] [id number] Neutrophils (Bld) [#/Vol] 8.0 10*3/uL Abnormal 1.4-7.0 [facility]; [facility] Work Phone: Comment on above: Test(s) 114264-WWD-A ; 826280-POY-S; 660845-REX-B; 363725-Hnbkcmhyxbwex; 800973-Dighdjvltlh, Total; 794016-EEF-O (Total);097848-Oshhv LDL-P; 496451-KTK Size; 305351-UJ-KC Scorewas developed and its performance characteristics determinedby [employer]. It has not been cleared or approved by the Foodand Drug Administration.PATIENT WAS FASTINGPERFORMED BY: SalesPredict[address] [id number] BY: [employer]6[address] [facility] [id number] Neutrophils/100 WBC (Bld) 67 % Normal [facility] Work Phone: Comment on above: Test(s) 759764-WFP-E ; 404789-YCT-U; 397825-EME-N; 880108-Cyifyswlhamyz; 152598-Myiwulqvalf, Total; 467152-CRV-K (Total);470231-Yusja LDL-P; 647741-PCF Size; 402190-KW-FN Scorewas developed and its performance characteristics determinedby [employer]. It has not been cleared or approved by the Foodand Drug Administration.PATIENT WAS FASTINGPERFORMED BY: Digiting [address] [id number] BY: Unilife Corporationrp Jlsyek1726 [facility] [id number] Platelets (Bld) [#/Vol] 223 {x10E3/uL} Normal 150-450 [facility] Work Phone: Comment on above: Test(s) 029419-CLE-Y ; 865525-UMA-S; 343205-FKX-S; 303751-Izgttsgghprwi; 309385-Qnhticejcgw, Total; 933681-BAW-D (Total);307582-Pomwh LDL-P; 578664-JRS Size; 792429-YC-ZD Scorewas developed and its performance characteristics determinedby [employer]. It has not been cleared or approved by the Foodand Drug Administration.PATIENT WAS FASTINGPERFORMED BY: Digiting [address] [id number] BY: [employer]6370 [facility] [id number] Platelets (Bld) [#/Vol] 223 10*3/uL Normal 150-450 [facility]; [facility] Work Phone: Comment on above: Test(s) 726842-ISN-N ; 676630-OOH-J; 537418-PUY-B; 406283-Dmjwuamtvguhm; 290244-Fuuvkoblyew, Total; 788959-ZLQ-O (Total);291703-Ymxeb LDL-P; 797566-LBY Size; 567662-OA-ZE Scorewas developed and its performance characteristics determinedby [employer]. It has not been cleared or approved by the Foodand Drug Administration.PATIENT WAS FASTINGPERFORMED BY: Digiting [address] [id number] BY: [employer] Mkvoti9133 [facility] [id number] RBC (Bld) [#/Vol] 5.42 {x10E6/uL} Normal 4.14-5.80 [facility] Internal Medicine Work Phone: Comment on above: Test(s) 079582-BUZ-O ; 762307-CZT-K; 805029-SBR-L; 658292-Gxzwkibyptqxh; 396060-Uvyhbstrthc, Total; 808437-OVW-C (Total);670311-Kgemg LDL-P; 386807-MDO Size; 368066-JU-JK Scorewas developed and its performance characteristics determinedby [employer]. It has not been cleared or approved by the Foodand Drug Administration.PATIENT WAS FASTINGPERFORMED BY: SalesPredict[address] [id number] BY: Sidecar70 [facility] [id number] RBC (Bld) [#/Vol] 5.42 10*6/uL Normal 4.14-5.80 [facility] Internal [facility]; [facility] Internal Medicine Work Phone: Comment on above: Test(s) 769948-RZX-N ; 340006-TMB-R; 947258-IWN-M; 234017-Qfqxxuvlfvyee; 743125-Jarbczfsbyk, Total; 898416-KPM-N (Total);104518-Gxcte LDL-P; 187646-CYK Size; 847730-XP-VU Scorewas developed and its performance characteristics determinedby [employer]. It has not been cleared or approved by the Foodand Drug Administration.PATIENT WAS FASTINGPERFORMED BY: Digiting [address] [id number] BY: [employer]6[address] [facility] [id number] WBC (Bld) [#/Vol] 11.9 {x10E3/uL} Abnormal 3.4-10.8 [facility] Internal Medicine Work Phone: Comment on above: Test(s) 205241-CSW-E ; 767886-RNA-B; 902200-HVC-Z; 290804-Cgqzfpyzpuwdr; 641514-Tapyhlfvdve, Total; 826833-QQY-G (Total);895511-Ilwzh LDL-P; 774137-PJR Size; 287030-FF-FB Scorewas developed and its performance characteristics determinedby [employer]. It has not been cleared or approved by the Foodand Drug Administration.PATIENT WAS FASTINGPERFORMED BY: Digiting [address] [id number] BY: [employer] Eslhkj26[address] [facility] [id number] WBC (Bld) [#/Vol] 11.9 10*3/uL Abnormal 3.4-10.8 [facility]; [facility] Work Phone: Comment on above: Test(s) 664054-WAK-E ; 003037-OVG-R; 131277-OEW-M; 999731-Ncnznoaqrlyzd; 421717-Lytwhintegl, Total; 708621-ENL-J (Total);184268-Jdqau LDL-P; 962044-KPC Size; 751225-GR-GQ Scorewas developed and its performance characteristics determinedby [employer]. It has not been cleared or approved by the Foodand Drug Administration.PATIENT WAS FASTINGPERFORMED BY: Digiting [address] [id number] BY: [employer] Pdoipz5798 [facility] [id number] METABOLIC PANEL, COMPREHENSI VE (75318)Ordered By: Switchboard Operator on 07-13-2019 Albumin [Mass/Vol] 4.8 g/dL Normal 3.6-4.8 [facility] Internal Medicine Work Phone: Comment on above: Test(s) 291086-DQO-I ; 306030-ALA-X; 314583-XHJ-V; 649741-Wiosnefxnrrvp; 010460-Yojaiuhhtwb, Total; 098807-EWR-L (Total);461955-Dpuam LDL-P; 897371-RKV Size; 632847-CD-UA Scorewas developed and its performance characteristics determinedby [employer]. It has not been cleared or approved by the Foodand Drug Administration.PATIENT WAS FASTINGPERFORMED BY: Carnad[address] [id number] BY: [employer] Wdfczj9725 [place] [facility]ibilityGr[facility] [id number] Albumin/Globulin [Mass ratio] 2.0 {ratio} Normal 1.2-2.2 [facility] Work Phone: Comment on above: Test(s) 830565-SAU-H ; 777905-DUW-P; 575293-YMZ-Q; 443323-Dcvaicqijnscd; 371136-Aliesdfaeyh, Total; 177170-COK-J (Total);038020-Zboho LDL-P; 343965-EVR Size; 297582-UJ-ZB Scorewas developed and its performance characteristics determinedby [employer]. It has not been cleared or approved by the Foodand Drug Administration.PATIENT WAS FASTINGPERFORMED BY: Digiting [address] [id number] BY: [employer] Fticpu1041 [facility] [id number] ALP [Catalytic activity/Vol] 126 [iU]/L Abnormal 39117 [facility] Work Phone: Comment on above: Test(s) 240359-OWX-B ; 694447-RDI-N; 509411-XQW-A; 195456-Pejjrvsnhkadx; 981505-Lmhgoliazzz, Total; 119754-PNK-Z (Total);856511-Qcdvh LDL-P; 510153-RRF Size; 962403-YK-LP Scorewas developed and its performance characteristics determinedby [employer]. It has not been cleared or approved by the Foodand Drug Administration.PATIENT WAS FASTINGPERFORMED BY: Carnad[address] [id number] BY: Unilife CorporationEssex County HospitalDrfpft9906 [facility] [id number] ALP [Catalytic activity/Vol] 126 U/L Abnormal 39-117 [facility]; [facility] Work Phone: Comment on above: Test(s) 496844-DIM-M ; 507848-JOY-C; 959322-DND-C; 990910-Frozwuwwohhul; 022431-Ffrwkxoykwg, Total; 548626-RAR-T (Total);454810-Dayqn LDL-P; 702045-JBA Size; 181915-ZB-VH Scorewas developed and its performance characteristics determinedby [employer]. It has not been cleared or approved by the Foodand Drug Administration.PATIENT WAS FASTINGPERFORMED BY: [employer] [id number] BY: Unilife CorporationHaley Ville 1627970 [facility] [id number] ALT [Catalytic activity/Vol] 37 [iU]/L Normal 0-44 [facility] Work Phone: Comment on above: Test(s) 118036-DHZ-I ; 981004-XGO-X; 369992-NZG-Y; 287642-Gpbdqemmtyuve; 630136-Ehiffvcvtom, Total; 742562-ZSK-P (Total);620399-Wjhnn LDL-P; 494891-AZH Size; 114835-PT-XF Scorewas developed and its performance characteristics determinedby [employer]. It has not been cleared or approved by the Foodand Drug Administration.PATIENT WAS FASTINGPERFORMED BY: Digiting [address] [id number] BY: Unilife CorporationEssex County HospitalXupthn00[address] [facility] [id number] ALT [Catalytic activity/Vol] 37 U/L Normal 0-44 [facility]; [facility] Work Phone: Comment on above: Test(s) 772810-EFQ-U ; 419763-ZYA-H; 773006-XBY-R; 789525-Ztlcfaycsawdw; 658684-Jetzkeweenu, Total; 885423-KZU-Q (Total);868317-Tniyt LDL-P; 703610-CUS Size; 012532-FY-MF Scorewas developed and its performance characteristics determinedby [employer]. It has not been cleared or approved by the Foodand Drug Administration.PATIENT WAS FASTINGPERFORMED BY: [employer] [id number] BY: [employer]6370 Sequitur LabsFormerly [facility], [facility] [id number] AST [Catalytic activity/Vol] 25 [iU]/L Normal 0-40 [facility] Internal Medicine Work Phone: Comment on above: Test(s) 317413-NTM-E ; 999819-VRN-L; 343281-GYK-O; 838883-Dqlpbbixddeys; 303318-Chafydpstvw, Total; 192000-PYY-B (Total);829585-Hcqfb LDL-P; 384341-HYM Size; 853808-RB-VG Scorewas developed and its performance characteristics determinedby [employer]. It has not been cleared or approved by the Foodand Drug Administration.PATIENT WAS FASTINGPERFORMED BY: Digiting [address] [id number] BY: [employer]6370 ZBD DisplaysUofL Health - [facility] [id number] AST [Catalytic activity/Vol] 25 U/L Normal 0-40 [facility] Internal Medicine; [facility] Internal Medicine Work Phone: Comment on above: Test(s) 862613-SNU-T ; 850940-CJN-H; 503478-NMD-A; 528097-Uwjeiakyqscua; 604950-Kuppyexyrqb, Total; 856732-MBT-A (Total);371416-Dbbfm LDL-P; 931203-OVD Size; 834331-AV-BV Scorewas developed and its performance characteristics determinedby [employer]. It has not been cleared or approved by the Foodand Drug Administration.PATIENT WAS FASTINGPERFORMED BY: Digiting [address] [id number] BY: [employer]6370 Sequitur LabsFormerly [facility], [facility] [id number] Bilirubin [Mass/Vol] 0.5 mg/dL Normal 0.0-1.2 [facility] Work Phone: Comment on above: Test(s) 528199-JUC-H ; 415460-JVD-U; 156811-DPS-H; 392520-Jwqclpkmbmqbr; 857041-Plnopgtdghi, Total; 592842-REX-C (Total);241055-Deyeo LDL-P; 443532-ZMG Size; 105649-JF-GR Scorewas developed and its performance characteristics determinedby [employer]. It has not been cleared or approved by the Foodand Drug Administration.PATIENT WAS FASTINGPERFORMED BY: Digiting [address] [id number] BY: [employer] Kwzixt4709 [place] Fore[employer] LogicFormerly [facility], [facility] [id number] Calcium [Mass/Vol] 9.7 mg/dL Normal 8.6-10.2 [facility] Internal Medicine Work Phone: Comment on above: Test(s) 734070-YVT-L ; 824391-XTK-W; 819829-VEK-U; 160152-Pmbndzcibozil; 519406-Vxvskvzocta, Total; 690374-CDH-N (Total);497519-Nhfmz LDL-P; 207888-RNC Size; 134864-PJ-HF Scorewas developed and its performance characteristics determinedby [employer]. It has not been cleared or approved by the Foodand Drug Administration.PATIENT WAS FASTINGPERFORMED BY: Digiting [address] [id number] BY: [employer]6370 [place] Fore[employer] LogicFormerly [facility] [id number] Chloride [Moles/Vol] 102 mmol/L Normal 96-106 [facility] Internal Medicine Work Phone: Comment on above: Test(s) 162899-NVW-K ; 555022-LKK-S; 391160-BOD-O; 484515-Jpheqyhvtttzi; 212313-Vvbvlptolyt, Total; 345107-UEY-A (Total);315278-Jyzhs LDL-P; 244593-XJQ Size; 865549-TZ-OC Scorewas developed and its performance characteristics determinedby [employer]. It has not been cleared or approved by the Foodand Drug Administration.PATIENT WAS FASTINGPERFORMED BY: Digiting [address] [id number] BY: Sidecar70 [facility] [id number] CO2 [Moles/Vol] 24 mmol/L Normal 20-29 [facility] Internal Medicine Work Phone: Comment on above: Test(s) 611433-DSV-N ; 599376-IVF-E; 687612-CYG-A; 986198-Sguszfuajhlgr; 174494-Okffwsradak, Total; 798955-IOQ-W (Total);914108-Dumtf LDL-P; 922147-MCV Size; 964736-YJ-DM Scorewas developed and its performance characteristics determinedby [employer]. It has not been cleared or approved by the Foodand Drug Administration.PATIENT WAS FASTINGPERFORMED BY: [employer] [facility] [id number] BY: [employer] [facility] [id number] Creatinine [Mass/Vol] 1.28 mg/dL Abnormal 0.76-1.27 [facility] Work Phone: Comment on above: Test(s) 986474-GUS-J ; 808948-VGO-J; 105029-SSK-C; 134967-Jnwgmcmlwtypu; 822262-Pvbqehprikc, Total; 690810-VTB-A (Total);924673-Ilrcp LDL-P; 523363-LPE Size; 171154-JO-WT Scorewas developed and its performance characteristics determinedby [employer]. It has not been cleared or approved by the Foodand Drug Administration.PATIENT WAS FASTINGPERFORMED BY: [employer] [place] [address] [id number] BY: [employer] [facility] [id number] GFR/1.73 sq M predicted among blacks CKD-EPI (S/P/Bld) [Vol rate/Area] 67 mL/min/1.73 Normal [facility] Work Phone: Comment on above: Test(s) 300106-EBQ-B ; 682886-FUF-D; 978502-RML-G; 754943-Kzehllrptecdr; 940359-Ihknwirfbkw, Total; 736802-VHW-A (Total);534557-Mwsxf LDL-P; 750130-GHL Size; 528756-OH-II Scorewas developed and its performance characteristics determinedby [employer]. It has not been cleared or approved by the Foodand Drug Administration.PATIENT WAS FASTINGPERFORMED BY: Digiting [address] [id number] BY: [employer] Igbrsm5203 [facility] [id number] GFR/1.73 sq M predicted among non-blacks CKD-EPI (S/P/Bld) [Vol rate/Area] 58 mL/min/1.73 Abnormal [facility] Work Phone: Comment on above: Test(s) 828019-NJC-V ; 809688-KPK-D; 097015-WNG-K; 865705-Wsoyimhlkkgbj; 788435-Ppcrmbzulsb, Total; 459603-SJY-Y (Total);734028-Xtiig LDL-P; 330667-TNT Size; 139343-UW-HA Scorewas developed and its performance characteristics determinedby [employer]. It has not been cleared or approved by the Foodand Drug Administration.PATIENT WAS FASTINGPERFORMED BY: Digiting [address] [id number] BY: [employer] Agdxgt5580 [facility] [id number] Globulin (S) [Mass/Vol] 2.4 g/dL Normal 1.5-4.5 [facility] Work Phone: Comment on above: Test(s) 394532-NCB-X ; 269196-LMQ-P; 577543-OHR-T; 202573-Wfzzqspgnjeip; 675872-Clhrjcqilgz, Total; 532909-GHF-Z (Total);377998-Mwnou LDL-P; 097032-CTQ Size; 428451-ST-TD Scorewas developed and its performance characteristics determinedby [employer]. It has not been cleared or approved by the Foodand Drug Administration.PATIENT WAS FASTINGPERFORMED BY: Digiting [address] [id number] BY: [employer] [facility] [id number] Glucose [Mass/Vol] 103 mg/dL Abnormal 65-99 [facility] Internal Medicine Work Phone: Comment on above: Test(s) 837573-TNJ-N ; 182896-TJR-O; 675754-RII-I; 197217-Okscrhfrndpjh; 905347-Dcfuiakgbfo, Total; 759822-IKL-G (Total);296353-Wxhzi LDL-P; 266507-AMN Size; 200864-UV-OR Scorewas developed and its performance characteristics determinedby [employer]. It has not been cleared or approved by the Foodand Drug Administration.PATIENT WAS FASTINGPERFORMED BY: Digiting [address] [id number] BY: [employer]6370 [place] [facility]ibilityGr[facility] [id number] Potassium [Moles/Vol] 4.7 mmol/L Normal 3.5-5.2 [facility] Internal Medicine Work Phone: Comment on above: Test(s) 810111-SBF-R ; 262705-XKX-T; 380625-UUY-G; 849385-Kzjmildwwbjri; 305802-Nfznxlylhrq, Total; 620761-XDX-Z (Total);204831-Wnuje LDL-P; 872651-BEO Size; 454394-CG-MB Scorewas developed and its performance characteristics determinedby [employer]. It has not been cleared or approved by the Foodand Drug Administration.PATIENT WAS FASTINGPERFORMED BY: Digiting [address] [id number] BY: [employer] [facility] [id number] Protein [Mass/Vol] 7.2 g/dL Normal 6.0-8.5 [facility] Internal Medicine Work Phone: Comment on above: Test(s) 577333-DFU-W ; 692409-TGY-V; 174588-VDT-E; 347482-Lqroinkprmilo; 561408-Bhbsxxuqkgc, Total; 114114-DFU-R (Total);099441-Kteoy LDL-P; 175716-ACS Size; 764315-VF-CE Scorewas developed and its performance characteristics determinedby [employer]. It has not been cleared or approved by the Foodand Drug Administration.PATIENT WAS FASTINGPERFORMED BY: Carnad[address] [id number] BY: [employer] Kxzimz8020 [place] [facility]ibilityGr[facility] [id number] Sodium [Moles/Vol] 143 mmol/L Normal 134-144 [facility] Internal Medicine Work Phone: Comment on above: Test(s) 100129-PHL-C ; 534831-SBF-N; 649254-EWE-S; 355320-Ecfufufobpcvz; 713751-Mtkdawtxwts, Total; 651834-UXL-G (Total);047960-Wwrvw LDL-P; 063292-LFB Size; 507909-ZS-LO Scorewas developed and its performance characteristics determinedby [employer]. It has not been cleared or approved by the Foodand Drug Administration.PATIENT WAS FASTINGPERFORMED BY: Digiting [address] [id number] BY: [employer] [facility] [id number] Urea nitrogen [Mass/Vol] 20 mg/dL Normal 8-27 [facility] Internal Medicine Work Phone: Comment on above: Test(s) 834137-USH-F ; 718460-NYP-T; 533276-QWF-J; 228305-Jgfwjcvmonwcz; 683305-Bjarcrqxxbm, Total; 568050-BUV-Q (Total);267777-Wutgu LDL-P; 976322-AYS Size; 179410-KI-ZS Scorewas developed and its performance characteristics determinedby [employer]. It has not been cleared or approved by the Foodand Drug Administration.PATIENT WAS FASTINGPERFORMED BY: Carnad[address] [id number] BY: [employer] Xpjscb9053 [facility] [id number] Urea nitrogen/Creatinine [Mass ratio] 16 mg/mg Normal 10-24 [facility] Work Phone: Comment on above: Test(s) 251159-GCX-K ; 332319-JCE-Z; 203373-VNM-I; 101487-Mrufmwbixvcue; 202409-Xlvukdfemex, Total; 516963-YOK-Z (Total);185736-Ykgfo LDL-P; 339118-DDN Size; 291643-OX-HC Scorewas developed and its performance characteristics determinedby [employer]. It has not been cleared or approved by the Foodand Drug Administration.PATIENT WAS FASTINGPERFORMED BY: SalesPredict[address] [id number] BY: [employer] Systems6370 ClaytonBarton County Memorial HospitalD'Shane ServicesFormerly [facility], [facility] [id number] MICROALBUMINOrdered By: Syst em Senior Mobile Developer on 07-13-2019 Albumin DL <= 20 mg/L (U) [Mass/Vol] 63.0 ug/mL Normal Comprehensiv e Internal Medicine Work Phone: Comment on above: Test(s) 679668-GSS-H ; 863375-CYQ-K; 942112-SYJ-B; 568773-Xjxzyrbzvenyx; 742462-Srbyfjtzmor, Total; 537506-TRH-T (Total);995478-Kvlei LDL-P; 103722-TQL Size; 178805-PY-VP Scorewas developed and its performance characteristics determinedby [employer]. It has not been cleared or approved by the Foodand Drug Administration.PATIENT WAS FASTINGPERFORMED BY: Digiting [address] [id number] BY: [employer] [facility] [address] [id number] Albumin/Creatinine (U) [Mass ratio] 32.4 {mg/g_creat} Abnormal 0.0-30.0 [facility] Work Phone: Comment on above: Normal: 0.0 - 30.0 A lbuminuria: 31.0 - 300.0 Clinical albuminuria: >300.0 Test(s) 842353-DDF-M ; 022308-KZL-W; 233353-VIM-Q; 766747-Lyjyjeacayvsz; 109820-Qljkzwdbdby, Total; 860735-LWB-B (Total);395424-Jepvb LDL-P; 662231-TRP Size; 311001-VR-BF Scorewas developed and its performance characteristics determinedby [employer]. It has not been cleared or approved by the Foodand Drug Administration.PATIENT WAS FASTINGPERFORMED BY: Digiting [address] [id number] BY: [employer] [facility] [id number] Creatinine (U) [Mass/Vol] 194.5 mg/dL Normal [facility] Work Phone: Comment on above: Test(s) 675060-MXL-W ; 757969-TLR-W; 896590-VPC-K; 200629-Mfromfkezgplg; 873944-Hbkvgkwcrxw, Total; 299376-HZH-M (Total);913867-Eztlt LDL-P; 895811-SED Size; 836692-TJ-ZJ Scorewas developed and its performance characteristics determinedby [employer]. It has not been cleared or approved by the Foodand Drug Administration.PATIENT WAS FASTINGPERFORMED BY: Digiting [address] [id number] BY: [employer] Zhszcy[address] [facility] [id number] NMR Profile (35042)Ordered B y: Switchboard Operator on 07-13-2019 Cholesterol [Mass/Vol] 147 mg/dL Normal 100-199 [facility] Work Phone: Comment on above: Test(s) 748277-XTL-S ; 181900-FJT-W; 902233-JVV-K; 345621-Hormumwgxcrzv; 058872-Asowrputrwe, Total; 374445-GTB-Y (Total);928305-Bfpho LDL-P; 540126-ORM Size; 724582-ML-LP Scorewas developed and its performance characteristics determinedby [employer]. It has not been cleared or approved by the Foodand Drug Administration.PATIENT WAS FASTINGPERFORMED BY: [employer] [id number] BY: [employer] CorporationEssex County HospitalHpbjny09[address] [facility] [id number] Lipoprotein.alpha [Moles/Vol] 26.8 umol/L Abnormal [facility] Work Phone: Comment on above: Test(s) 047821-PLK-Z ; 907943-SSI-E; 461597-WQR-T; 130716-Rawximxlntzmb; 193593-Mcmzvdcppvg, Total; 485910-MKY-S (Total);908156-Bjtpd LDL-P; 586462-BRB Size; 793734-HZ-MM Scorewas developed and its performance characteristics determinedby [employer]. It has not been cleared or approved by the Foodand Drug Administration.PATIENT WAS FASTINGPERFORMED BY: [employer] [id number] BY: [employer] CorporationEssex County HospitalVatief04[address] [facility] [id number] Lipoprotein.beta.sub particle [Entitic length] 20.0 nm Abnormal [facility] Work Phone: Comment on above: INTERPRETATIVE INFORMATION PARTICLE CONCENTRATION AND SIZE <--Lower CVD Risk Higher CVD Risk--> LDL AND HDL PARTICLES Percentile in Reference Population HDL-P (total) High 75th 50th 25th Low >34.9 34.9 30.5 26.7 <26.7 . Small LDL-P Low 25th 50th 75th High <117 117 527 839 >839 . LDL Size <-Large (Pattern A)-> <-Small (Pattern B)-> 23.0 20.6 20.5 19.0 Small LDL-P and LDL Size are associated with CVD risk, but not afterLDL-P is taken into account. Test(s) 559375-RHQ-A ; 405999-LEL-H; 025027-SSY-S; 050709-Wswwkxtjppbqf; 033209-Qyaepjamdgw, Total; 647360-KTD-J (Total);401810-Rzgpc LDL-P; 945722-ORD Size; 567636-AY-FC Scorewas developed and its performance characteristics determinedby [employer]. It has not been cleared or approved by the Foodand Drug Administration.PATIENT WAS FASTINGPERFORMED BY: SalesPredict[address] [id number] BY: SOLOM[facility] TechnologyOzarks Medical Center [id number] Lipoprotein.beta.sub particle [Moles/Vol] 1264 nmol/L Abnormal [facility] Internal Medicine Work Phone: Comment on above: Low < 1000 Moderate 1000 - 1299 Borderline-High 1300 - 1599 High 1600 - 2000 Very High > 2000 Test(s) 188791-MXS-G ; 742547-ZXR-R; 311122-RXX-A; 531647-Farcjhhqrfbwt; 020157-Hfubyqgfoee, Total; 946947-ZLQ-G (Total);911707-Cfkuy LDL-P; 018923-NEP Size; 876369-UC-JW Scorewas developed and its performance characteristics determinedby [employer]. It has not been cleared or approved by the Foodand Drug Administration.PATIENT WAS FASTINGPERFORMED BY: Digiting [address] [id number] BY: [employer] [id number] Lipoprotein.beta.sub particle.small [Moles/Vol] 865 nmol/L Abnormal [facility] Internal Medicine Work Phone: Comment on above: Test(s) 124528-UAL-J ; 789414-BIV-U; 885798-MEO-A; 209441-Fnazjjejrogeo; 762823-Ttgeaigehip, Total; 643686-VDI-R (Total);273159-Thryc LDL-P; 166825-HTD Size; 961663-OF-YA Scorewas developed and its performance characteristics determinedby [employer]. It has not been cleared or approved by the Foodand Drug Administration.PATIENT WAS FASTINGPERFORMED BY: Digiting [address] [id number] BY: [employer] CorporationEssex County HospitalGapklo8[address] [id number] Triglyceride [Mass/Vol] 141 mg/dL Normal 0-149 [facility] Internal Medicine Work Phone: Comment on above: Test(s) 700559-ZUV-G ; 831869-ZGB-L; 685548-EZG-K; 247214-Cncvtbgmqwssr; 304847-Vgwmdfqxadv, Total; 560259-GZL-I (Total);582122-Xfiia LDL-P; 398706-ZOW Size; 939234-WF-VH Scorewas developed and its performance characteristics determinedby [employer]. It has not been cleared or approved by the Foodand Drug Administration.PATIENT WAS FASTINGPERFORMED BY: Digiting [address] [id number] BY: [employer] Aqkabz[address] [id number] NMR Profile (12166) 87 mg/dL Normal 0-99 [facility] Internal Medicine Work Phone: Comment on above: . Optimal < 100 Abov e optimal 100 - 129 Borderline 130 - 159 High 160 - 189 Very high > 189 .LDL-C is inaccurate if patient is non-fasting. Test(s) 726145-WOT-A ; 259863-UJT-R; 887523-BDD-X; 221149-Kbaixueeauhbc; 584591-Vfwsqxqgein, Total; 542640-DOJ-M (Total);197501-Vdthq LDL-P; 176246-HBG Size; 272130-ZZ-SN Scorewas developed and its performance characteristics determinedby [employer]. It has not been cleared or approved by the Foodand Drug Administration.PATIENT WAS FASTINGPERFORMED BY: BN [employer]Co[address] [id number] BY: [employer] Mnfnns[address] [id number] NMR Profile (73555) 32 mg/dL Abnormal Compr ensive Internal Medicine Work Phone: Comment on above: Test(s) 101647-OKR-J ; 461215-HRT-M; 361140-CYK-A; 620618-Wbxicwwbulpor; 726964-Ffufunidhjh, Total; 579929-BPY-W (Total);640239-Apvue LDL-P; 026974-YHU Size; 376651-AB-PZ Scorewas developed and its performance characteristics determinedby [employer]. It has not been cleared or approved by the Foodand Drug Administration.PATIENT WAS FASTINGPERFORMED BY: [employer] [address] [id number] BY: [employer] Midvkp05[address] [id number] NMR Profile (39540) 141 mg/dL Normal 0-149 Compr ehensive Internal Medicine; [facility] Work Phone: NMR Profile (00912) 147 mg/dL Normal 100-199 [facility] ehensive Internal Medicine; [facility] Work Phone: TSH (40989)Ordered By: Alethea Price on 07-13-2019 TSH Qn 2.110 {uIU/mL} Normal 0.450-4.50 0 [facility] Work Phone: Comment on above: Test(s) 108746-YCX-A ; 009583-EEJ-E; 075093-AHV-Q; 500964-Yiwrzydgygggr; 169780-Znrzaslpjlt, Total; 827796-RVT-F (Total);866289-Aselt LDL-P; 030261-EFC Size; 089974-XW-MK Scorewas developed and its performance characteristics determinedby [employer]. It has not been cleared or approved by the Foodand Drug Administration.PATIENT WAS FASTINGPERFORMED BY: [employer] [id number] BY: [employer]6370 ClaytonOzarks Medical Center [id number] URINALYSIS, W/ MICRO (63244) Ordered By: Switchboard Operator on 07-13-2019 Appearance (U) Cloudy Abnormal Comprehens damien Internal Medicine Work Phone: Comment on above: Test(s) 079816-NJH-W ; 364446-QFS-I; 076670-LRC-J; 933183-Zfyjfcykoosms; 508655-Dwxhdyhycho, Total; 063487-YCD-B (Total);703773-Vdwre LDL-P; 672694-XFE Size; 523748-YG-YH Scorewas developed and its performance characteristics determinedby [employer]. It has not been cleared or approved by the Foodand Drug Administration.PATIENT WAS FASTINGPERFORMED BY: SalesPredict[address] [id number] BY: Sidecar70 CompassoftGranville Medical Center [id number] Bilirubin Ql (U) Negative Normal Comprehe nsive Internal Medicine Work Phone: Comment on above: Test(s) 204133-GAD-T ; 849157-TEI-J; 013579-NIO-Y; 165950-Yaugmehybacyy; 691473-Tlwtksutpyu, Total; 414427-DTW-A (Total);215307-Kocjh LDL-P; 147691-WTE Size; 684807-LQ-MB Scorewas developed and its performance characteristics determinedby [employer]. It has not been cleared or approved by the Foodand Drug Administration.PATIENT WAS FASTINGPERFORMED BY: Digiting [address] [id number] BY: Hipsterlin[address] [id number] Bilirubin Ql (U) Negative Normal Comprehe nsive Internal Medicine; [facility] Work Phone: Comment on above: Test(s) 784119-EEG-Q ; 272268-MIN-O; 127853-VYM-G; 318619-Qeayptbxynend; 952892-Hnfqebsneoz, Total; 803682-LQS-C (Total);608771-Admcc LDL-P; 130580-KVB Size; 055863-XT-EB Scorewas developed and its performance characteristics determinedby [employer]. It has not been cleared or approved by the Foodand Drug Administration.PATIENT WAS FASTINGPERFORMED BY: Carnad[address] [id number] BY: [employer] [id number] Color (U) Yellow Normal [facility] Work Phone: Comment on above: Test(s) 617792-FBT-Q ; 777278-VLV-M; 844142-XEY-O; 557815-Gjtzyuwnzbxdf; 086845-Ryvsafvmgni, Total; 365871-WFG-A (Total);220997-Wapne LDL-P; 515202-PLE Size; 142983-MN-EK Scorewas developed and its performance characteristics determinedby [employer]. It has not been cleared or approved by the Foodand Drug Administration.PATIENT WAS FASTINGPERFORMED BY: Digiting [address] [id number] BY: Sidecar[address] [id number] Glucose Ql (U) Negative Normal Comprehens damien Internal Medicine Work Phone: Comment on above: Test(s) 075327-VJW-N ; 623824-FMQ-S; 991727-TNW-I; 275615-Qomcnnphtzhsw; 366572-Rllervjmhel, Total; 225596-FNH-S (Total);965431-Fpvvz LDL-P; 925952-KGU Size; 573902-AS-NL Scorewas developed and its performance characteristics determinedby [employer]. It has not been cleared or approved by the Foodand Drug Administration.PATIENT WAS FASTINGPERFORMED BY: Digiting [address] [id number] BY: [employer] [id number] Glucose Ql (U) Negative Normal Comprehens damien Internal Medicine; [facility] Work Phone: Comment on above: Test(s) 732504-DHB-U ; 829394-PGY-S; 412787-GFI-T; 996656-Ineixjpenckbh; 339637-Nqmljjrbhqd, Total; 527004-IVZ-I (Total);849438-Npqcj LDL-P; 943412-RBS Size; 222231-YQ-FV Scorewas developed and its performance characteristics determinedby [employer]. It has not been cleared or approved by the Foodand Drug Administration.PATIENT WAS FASTINGPERFORMED BY: Digiting [address] [id number] BY: [employer] Imnigt[address] [place] [address] [id number] Hemoglobin Ql (U) Negative Normal Compreh ensive Internal Medicine Work Phone: Comment on above: Test(s) 965162-OFZ-V ; 120389-AHR-N; 991685-VJK-X; 630275-Iebggyqxykxmo; 311157-Wciayuijrca, Total; 119643-YYV-U (Total);036619-Gekrp LDL-P; 572511-OSJ Size; 018091-WU-ZM Scorewas developed and its performance characteristics determinedby [employer]. It has not been cleared or approved by the Foodand Drug Administration.PATIENT WAS FASTINGPERFORMED BY: Digiting [address] [id number] BY: [employer] Mszxtg[address] [id number] Hemoglobin Ql (U) Negative Normal Compreh ensive Internal Medicine; [facility] Work Phone: Comment on above: Test(s) 242735-LWO-O ; 674425-XOU-W; 277121-MRK-O; 203081-Qaomyjizkckva; 672895-Qbduofbrzij, Total; 380357-TGO-D (Total);304490-Blrnx LDL-P; 836586-LZX Size; 301335-PD-VJ Scorewas developed and its performance characteristics determinedby [employer]. It has not been cleared or approved by the Foodand Drug Administration.PATIENT WAS FASTINGPERFORMED BY: BN [employer] [id number] BY: Unilife CorporationEssex County HospitalZmivdt32[address] [facility] [address] [id number] Ketones Ql (U) Negative Normal Comprehens damien Internal Medicine Work Phone: Comment on above: Test(s) 476156-BPJ-L ; 948709-PPX-T; 457437-ATG-O; 809075-Chfwymheesxje; 981913-Xxhttjgviaj, Total; 934873-CAJ-A (Total);633805-Sxykh LDL-P; 829707-AIV Size; 298763-RI-IV Scorewas developed and its performance characteristics determinedby [employer]. It has not been cleared or approved by the Foodand Drug Administration.PATIENT WAS FASTINGPERFORMED BY: [employer] [address] [id number] BY: Unilife CorporationEssex County HospitalUvclej5[address] [facility] [id number] Ketones Ql (U) Negative Normal Comprehens damien Internal Medicine; [facility] Work Phone: Comment on above: Test(s) 230071-LJI-Y ; 689804-CWB-U; 671527-PQB-M; 560039-Rtrpzhiopgjwj; 163311-Mdqhyrfztrb, Total; 812032-AOG-L (Total);006814-Iptee LDL-P; 887661-XGZ Size; 580713-YO-UY Scorewas developed and its performance characteristics determinedby [employer]. It has not been cleared or approved by the Foodand Drug Administration.PATIENT WAS FASTINGPERFORMED BY: [employer] [id number] BY: Un[employer]ife CorporationEssex County HospitalVudvlx34[address] [facility] [address] [id number] Leukocyte esterase Test strip Ql (U) 1+ Abnormal [facility] Work Phone: Comment on above: Test(s) 455216-GXP-W ; 579280-AVS-Q; 799431-LJN-H; 300055-Tufebafukqamx; 581140-Krjffhtqmcy, Total; 640591-WFF-R (Total);764734-Rsfjk LDL-P; 702948-PLB Size; 172992-KQ-KF Scorewas developed and its performance characteristics determinedby [employer]. It has not been cleared or approved by the Foodand Drug Administration.PATIENT WAS FASTINGPERFORMED BY: Carnad[address] [id number] BY: [employer] Ujdyyj[address] [id number] Microscopic observation LM Nom (Urine sed) See below: Normal [facility] Work Phone: Comment on above: Microscopic was jayden cated and was performed. Test(s) 619419-QOI-N ; 550802-DKI-C; 242749-RXP-R; 995182-Sslxffcuvwdky; 000117-Hrwalqumvwm, Total; 189065-KWW-J (Total);685325-Dbqjs LDL-P; 179575-QOY Size; 307483-HS-AY Scorewas developed and its performance characteristics determinedby [employer]. It has not been cleared or approved by the Foodand Drug Administration.PATIENT WAS FASTINGPERFORMED BY: Digiting [address] [id number] BY: Sidecar[address] VizibilityGranville Medical Center [id number] Nitrite Ql (U) Negative Normal Comprehens damien Internal Medicine Work Phone: Comment on above: Test(s) 377833-EBO-C ; 756651-RHL-O; 363700-CMN-P; 086568-Vrrmczmlkqtqw; 513752-Zcnvlsvhmkp, Total; 743710-BUL-A (Total);007978-Bbzls LDL-P; 755604-GKT Size; 376330-II-FT Scorewas developed and its performance characteristics determinedby [employer]. It has not been cleared or approved by the Foodand Drug Administration.PATIENT WAS FASTINGPERFORMED BY: Digiting [address] [id number] BY: [employer] Gtwnvl3[address] [id number] Nitrite Ql (U) Negative Normal Comprehens damien Internal Medicine; [facility] Work Phone: Comment on above: Test(s) 500437-EMW-Q ; 352432-XRL-D; 845228-ITB-S; 247682-Kimfyjcumyevy; 649642-Lvxniemngpr, Total; 468800-QRQ-R (Total);594868-Ixvso LDL-P; 423177-KDF Size; 487560-BR-YO Scorewas developed and its performance characteristics determinedby [employer]. It has not been cleared or approved by the Foodand Drug Administration.PATIENT WAS FASTINGPERFORMED BY: SalesPredict[address] [id number] BY: Sidecar70 Clayton[facility] [id number] pH (U) 5.5 [pH] Normal 5.0-7.5 [facility] Work Phone: Comment on above: Test(s) 851486-VDO-X ; 861120-IDL-F; 336371-ZAZ-H; 412298-Wzrzmfdsibpyv; 689119-Gwelqduovpv, Total; 083990-ESX-W (Total);186259-Sspso LDL-P; 224230-AGT Size; 448641-DR-HE Scorewas developed and its performance characteristics determinedby [employer]. It has not been cleared or approved by the Foodand Drug Administration.PATIENT WAS FASTINGPERFORMED BY: SalesPredict[address] [id number] BY: [employer] [id number] Protein Ql (U) 1+ Abnormal Comprehens damien Internal Medicine Work Phone: Comment on above: Test(s) 034006-TFU-G ; 792032-EJY-N; 596961-IUN-U; 987236-Awhacqbiuszdm; 720380-Cqymozglhrb, Total; 285647-KRB-Y (Total);375646-Jwwvm LDL-P; 542877-YRY Size; 665788-VJ-MS Scorewas developed and its performance characteristics determinedby [employer]. It has not been cleared or approved by the Foodand Drug Administration.PATIENT WAS FASTINGPERFORMED BY: Digiting [address] [id number] BY: Sidecar70 CompassoftGranville Medical Center [id number] Specific gravity (U) [Rel density] 1.020 1 Normal 1.005-1.03 0 [facility] Internal Medicine Work Phone: Comment on above: Test(s) 486119-SYF-F ; 988055-ISV-H; 885125-EHL-M; 124256-Jxdmxlkqvqajn; 144931-Nseybbnrmff, Total; 223284-JJC-I (Total);458319-Povnn LDL-P; 335135-QPM Size; 312360-HQ-LI Scorewas developed and its performance characteristics determinedby [employer]. It has not been cleared or approved by the Foodand Drug Administration.PATIENT WAS FASTINGPERFORMED BY: SalesPredict[address] [id number] BY: [employer] Systems[address] VizibilityGranville Medical Center [id number] Urobilinogen (U) [Mass/Vol] 0.2 mg/dL Normal 0.2-1.0 [facility]; [facility] Internal Medicine Work Phone: Comment on above: Test(s) 242366-TSP-P ; 198903-ROJ-N; 237030-DMX-W; 856823-Mqfnvlugzakcq; 396743-Czzovwxhjfh, Total; 793224-PYY-W (Total);091720-Spqsd LDL-P; 248233-MGE Size; 481975-ZS-PN Scorewas developed and its performance characteristics determinedby [employer]. It has not been cleared or approved by the Foodand Drug Administration.PATIENT WAS FASTINGPERFORMED BY: Digiting [address] [id number] BY: Hipsterlin[address] [id number] Urobilinogen Test strip (U) [Mass/Vol] 0.2 mg/dL Normal 0.2-1.0 [facility] Internal Medicine Work Phone: Comment on above: Test(s) 069013-KMQ-N ; 396851-BEU-J; 262994-YVY-X; 346815-Duaflvmapharw; 557393-Tmturnegjaq, Total; 529388-SLO-F (Total);609764-Wapaj LDL-P; 894097-OYU Size; 512857-SI-IY Scorewas developed and its performance characteristics determinedby [facility]. It has not been cleared or approved by the Foodand Drug Administration.PATIENT WAS FASTINGPERFORMED BY: BN [facility] Vjvylliceg3333 [facility] [id number] BY: CB [facility] Twydqq96[address] [id number] PROGRESSon 04-06-2019 PROGRESS HNO ID: [id number] Author: Shayan Rivera Service: ? Author Type: [employer] Type: Progress Notes Filed: 04/06/2019 3:58 PM Note Text: ASSESSMENT/PLAN: 1. 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 2. Hordeolum internum of left upper eyelid - ICD9: 373.12, ICD10: H00.024 -Resolved Shayan Rivera, OD I have confirmed and edited as necessary the relevant ophthalmic history, review of systems, surgical history, and ophthalmological examination findings as obtained by the ophthalmic technical staff. I have seen and examined Vishal Cisneros. I have discussed the examination findings, diagnosis, and treatment options with Vishal Cisneros and/or his family. I have also reviewed and agree with the assessment and plan as stated above and agree with all its relevant components. I gave the patient the opportunity to ask questions about the findings, diagnosis, and treatment options. Normal [facility] Blood Glucose , Office ([phone])Ordered By: Yazmin Ball on 03-29-2019 Glucose Glucometer (BldC) [Moles/Vol] 119 1 Normal [facility] Work Phone: HgA1C , Office ([phone])Goran daniel By: Kevin Carpio on 03-29-2019 HbA1c (Bld) [Mass fraction] 5.1 % Normal 4.6 - 7.1 [facility] Work Phone: PROGRESSon 03-03-2019 PROGRESS HNO ID: [id number] Author: Eh Thomas Service: ? Author Type: Physician Type: Progress Notes Filed: 03/03/2019 11:11 AM Note Text: ASSESSMENT/PLAN: 1. Hordeolum internum of left upper eyelid - ICD9: 373.12, ICD10: H00.024 (primary diagnosis) 2. Meibomian gland dysfunction (MGD) of upper and lower lids of both eyes - ICD9: 373.00, ICD10: H02.88A, H02.88B Current Ophthalmic Meds bacitracin ophthalmic ophthalmic ointment Use 1 application in the left eye once each week Eh Thomas MD I have confirmed and edited as necessary the relevant ophthalmic history, review of systems, surgical history, and ophthalmological examination findings as obtained by the ophthalmic technical staff. I have seen and examined Vishal Cisneros. I have discussed the examination findings, diagnosis, and treatment options with Vishal Cisneros and/or his family. I have also reviewed and agree with the assessment and plan as stated above and agree with all its relevant components. I gave the patient the opportunity to ask questions about the findings, diagnosis, and treatment options. Normal [facility] PROGRESSon 2019 PROGRESS HNO ID: [id number] Author: Eh Thomas Service: ? Author Type: Physician Type: Progress Notes Filed: 2019 11:07 AM Note Text: ASSESSMENT/PLAN: 1. Hordeolum internum of left upper eyelid - ICD9: 373.12, ICD10: H00.024 (primary diagnosis) 2. Meibomian gland dysfunction (MGD) of upper and lower lids of both eyes - ICD9: 373.00, ICD10: H02.88A, H02.88B Begin: Current Ophthalmic Meds bacitracin ophthalmic ophthalmic ointment Use 1 application in the left eye daily at bedtime. One application at bedtime Azithromycin 250 mg capsules- take 1 capsule by mouth daily for 2 weeks with food. Ice Packs - for 10 minutes three times a day left eye. Eh Thomas MD Normal [facility] CALCIFIDIOL (88053) VIT D 25 Ordered By: Switchboard Operator on 10-26-2018 25-Hydroxyvitamin D2+25-Hydroxyvitamin D3 mass conc 21.0 ng/mL Abnormal 30.0-100.0 [facility] Work Phone: Comment on above: Vitamin D deficiency has been defined by the [place] ofMedicine and an Endocrine Society practice guideline as alevel of serum 25-OH vitamin D less than 20 ng/mL (1,2).The Endocrine Society went on to further define vitamin Dinsufficiency as a level between 21 and 29 ng/mL (2).1. IOM ([place] of Medicine). 2010. Dietary reference intakes for calcium and D. [place]: The National Academies Press.2. Rayna MF, Ana Luisa HASSAN, William CUBA, et al. Evaluation, treatment, and prevention of vitamin D deficiency: an Endocrine Society clinical practice guideline. JCEM. 2010; 96(7):1911-30. PATIENT WAS FASTINGP ERFORMED BY: [employer] [facility] [id number] BY: Backplane [facility] HospitalD'Shane ServicesFormerly [facility], [facility] [id number] CBC with auto diff (00134)Or dered By: Switchboard Operator on 10-26-2018 Basophils #/vol (Bld) 0.1 {x10E3/uL} Normal 0.0-0.2 [facility] Work Phone: Comment on above: PATIENT WAS FASTINGP ERFORMED BY: [employer] [facility] [id number] BY: Sidecar70 [employer] LabsFormerly [facility], [facility] [id number] Basophils (Bld) [#/Vol] 0.1 10*3/uL Normal 0.0-0.2 [facility]; [facility] Work Phone: Comment on above: PATIENT WAS FASTINGP ERFORMED BY: BN LabCo[address] [id number] BY: [facility] Yuuafe4690 [address] RoadDublin [place] [id number] Basophils/100 WBC (Bld) 1 % Normal [facility] Work Phone: Comment on above: PATIENT WAS FASTINGP ERFORMED BY: Lab[address] [id number] BY: [facility] Usztcm6336 [address] RoadDublin [place] [id number] Eosinophils #/vol (Bld) 0.1 {x10E3/uL} Normal 0.0-0.4 [facility] Work Phone: Comment on above: PATIENT WAS FASTINGP ERFORMED BY: Lab[address] [id number] BY: [facility] Vpnxfh3988 [address] RoadGranville Medical Center [id number] Eosinophils (Bld) [#/Vol] 0.1 10*3/uL Normal 0.0-0.4 [facility]; [facility] Work Phone: Comment on above: PATIENT WAS FASTINGP ERFORMED BY: [address] [id number] BY: [facility] Gvctke4751 Clayton RoadGranville Medical Center [id number] Eosinophils/100 WBC (Bld) 1 % Normal [facility] Work Phone: Comment on above: PATIENT WAS FASTINGP ERFORMED BY: Lab[address] [id number] BY: [facility] Zyrpgt2602 [address] Man [facility] [id number] Erythrocyte distribution width Ratio (RBC) 13.5 % Normal 12.3-15.4 [facility] Work Phone: Comment on above: PATIENT WAS FASTINGP ERFORMED BY: [address] [id number] BY: [facility] [facility] [id number] Hematocrit Volume Fraction (Bld) 44.5 % Normal 37.5-51.0 [facility] Work Phone: Comment on above: PATIENT WAS FASTINGP ERFORMED BY: [address] [id number] BY: LabN[facility] Htmhqz5807 [address] RoadScotland Memorial Hospitalin [place] [id number] Hemoglobin mass conc (Bld) 15.1 g/dL Normal 13.0-17.7 [facility] Work Phone: Comment on above: PATIENT WAS FASTINGP ERFORMED BY: [address] [id number] BY: LabShannon [place] 7853370 [address] [facility] [id number] Immature granulocytes #/vol (Bld) 0.1 {x10E3/uL} Normal 0.0-0.1 [facility] Work Phone: Comment on above: PATIENT WAS FASTINGP ERFORMED BY: [address] [id number] BY: [place] 1828570 [address] [facility] [id number] Immature granulocytes (Bld) [#/Vol] 0.1 10*3/uL Normal 0.0-0.1 [facility]; [facility] Work Phone: Comment on above: PATIENT WAS FASTINGP ERFORMED BY: [address] [id number] BY: LabSh[place] 7853370 [place] [facility] [id number] Immature granulocytes/100 WBC (Bld) 1 % Normal [facility] Work Phone: Comment on above: PATIENT WAS FASTINGP ERFORMED BY: [address] [id number] BY: LabSh[place] 7853370 [place] RoadGranville Medical Center [id number] Lymphocytes #/vol (Bld) 1.6 {x10E3/uL} Normal 0.7-3.1 [facility] Work Phone: Comment on above: PATIENT WAS FASTINGP ERFORMED BY: Lab[address] [id number] BY: LabCoEssex County HospitalOxtlii9181 [address] [facility] [id number] Lymphocytes (Bld) [#/Vol] 1.6 10*3/uL Normal 0.7-3.1 [facility]; [facility] Work Phone: Comment on above: PATIENT WAS FASTINGP ERFORMED BY: [address] [id number] BY: LabSh[place] 7853370 [facility] [id number] Lymphocytes/100 WBC (Bld) 16 % Normal [facility] Work Phone: Comment on above: PATIENT WAS FASTINGP ERFORMED BY: [address] [id number] BY: LabCoEssex County HospitalVpunkr6[address] [facility] [id number] MCH Entitic mass (RBC) 29.8 pg Normal 26.6-33.0 [facility] Work Phone: Comment on above: PATIENT WAS FASTINGP ERFORMED BY: [address] [id number] BY: LabRehabilitation [facility] [facility] [id number] MCHC mass conc (RBC) 33.9 g/dL Normal 31.5-35.7 [facility] Internal Medicine Work Phone: Comment on above: PATIENT WAS FASTINGP ERFORMED BY: [address] [id number] BY: LabCoEssex County HospitalQsacpf17[address] [facility] [id number] MCV Entitic volume (RBC) 88 fL Normal 79-97 [facility] Work Phone: Comment on above: PATIENT WAS FASTINGP ERFORMED BY: Lab[address] [id number] BY: [facility] Rhfemk9547 [address] RoadDublin [place] [id number] Monocytes #/vol (Bld) 0.6 {x10E3/uL} Normal 0.1-0.9 [facility] Work Phone: Comment on above: PATIENT WAS FASTINGP ERFORMED BY: LabCo[address] [id number] BY: [facility] Qynbcf7200 [address] RoadDublin [place] [id number] Monocytes (Bld) [#/Vol] 0.6 10*3/uL Normal 0.1-0.9 [facility]; [facility] Work Phone: Comment on above: PATIENT WAS FASTINGP ERFORMED BY: Lab[address] [id number] BY: [facility] Iqnxwo7161 [address] RoadDublin [place] [id number] Monocytes/100 WBC (Bld) 6 % Normal [facility] Work Phone: Comment on above: PATIENT WAS FASTINGP ERFORMED BY: Lab[address] [id number] BY: [facility] Zrnvhx1311 [address] RoadDublin [place] [id number] Neutrophils #/vol (Bld) 7.9 {x10E3/uL} Abnormal 1.4-7.0 [facility] Work Phone: Comment on above: PATIENT WAS FASTINGP ERFORMED BY: Lab[address] [id number] BY: [facility] Qcywsy6946 [address] RoadDublin [place] [id number] Neutrophils (Bld) [#/Vol] 7.9 10*3/uL Abnormal 1.4-7.0 [facility]; [facility] Work Phone: Comment on above: PATIENT WAS FASTINGP ERFORMED BY: Lab[address] [id number] BY: CAROLA [facility] Lefmio5935 [address] RoadDuin [place] [id number] Neutrophils/100 WBC (Bld) 75 % Normal [facility] Work Phone: Comment on above: PATIENT WAS FASTINGP ERFORMED BY: [facility] [address] [id number] BY: CAROLA [facility] Dcbuaf3248 [address] RoadDublin [place] [id number] Platelets #/vol (Bld) 212 {x10E3/uL} Normal 150-379 [facility] Work Phone: Comment on above: PATIENT WAS FASTINGP ERFORMED BY: [address] [id number] BY: CAROLA [facility] Vftodl5159 [address] RoadGranville Medical Center [id number] Platelets (Bld) [#/Vol] 212 10*3/uL Normal 150-379 [facility]; [facility] Work Phone: Comment on above: PATIENT WAS FASTINGP ERFORMED BY: LabNerp [address] [id number] BY: CAROLA [facility] Ypxtst7885 [address] [facility] [id number] RBC #/vol (Bld) 5.07 {x10E6/uL} Normal 4.14-5.80 [facility] Internal Medicine Work Phone: Comment on above: PATIENT WAS FASTINGP ERFORMED BY: Lab[address] [id number] BY: [facility] Ppcxzq1089 [address] [facility]in [place] [id number] RBC (Bld) [#/Vol] 5.07 10*6/uL Normal 4.14-5.80 [facility] Healthcareensive [facility]; [facility] Work Phone: Comment on above: PATIENT WAS FASTINGP ERFORMED BY: LabSportsBoard[address] [id number] BY: LabCoEssex County HospitalRakmmw0742 [address] [facility] [id number] WBC #/vol (Bld) 10.4 {x10E3/uL} Normal 3.4-10.8 Comp rehensive Internal Medicine Work Phone: Comment on above: PATIENT WAS FASTINGP ERFORMED BY: LabCo[address] [id number] BY: [facility] Tvaext3098 [address] [facility] [id number] WBC (Bld) [#/Vol] 10.4 10*3/uL Normal 3.4-10.8 Compr ehensive Internal Medicine; [facility] Work Phone: Comment on above: PATIENT WAS FASTINGP ERFORMED BY: [employer] [id number] BY: LabRehabilitation [facility] Of Michigan[address] [facility] [id number] HGB A1C (51300)Ordered By: S ystem Senior Mobile Developer on 10-26-2018 Hemoglobin A1c/Hemoglobin.total mass fraction (Bld) 5.7 % Abnormal 4.8-5.6 Comprehensiv e Internal Medicine Work Phone: Comment on above: . Prediabetes: 5.7 - 6.4 Diabetes: >6.4 Glycemic control for adults with diabetes: <7.0 PATIENT WAS FASTINGP ERFORMED BY: LabSportsBoard[address] [id number] BY: LabN[facility] Dekrer[address] [facility] [id number] METABOLIC PANEL, COMPREHENSI VE (77912)Ordered By: Switchboard Operator on 10-26-2018 Albumin mass conc 4.7 g/dL Normal 3.6-4.8 Compreh ensive Internal Medicine Work Phone: Comment on above: PATIENT WAS FASTINGP ERFORMED BY: Lab[address] [id number] BY: LabN[facility] Tbfwvc3360 [address] RoadDublin [place] [id number] Albumin/Globulin mass ratio 2.0 {ratio} Normal 1.2-2.2 [facility] Work Phone: Comment on above: PATIENT WAS FASTINGP ERFORMED BY: [address] [id number] BY: LabRehabilitation [facility]6[address] RoadDublin [place] [id number] ALP [Catalytic activity/Vol] 111 U/L Normal 39-117 [facility]; [facility] Internal Medicine Work Phone: Comment on above: PATIENT WAS FASTINGP ERFORMED BY: [address] [id number] BY: LabN[facility] Tqkvtj5970 [address] RoadDublin [place] [id number] ALP enzyme act/vol 111 [iU]/L Normal 39-117 [facility] Internal Medicine Work Phone: Comment on above: PATIENT WAS FASTINGP ERFORMED BY: [address] [id number] BY: LabRehabilitation [facility]6[address] RoadDublin [place] [id number] ALT [Catalytic activity/Vol] 26 U/L Normal 0-44 [facility]; [facility] Internal Medicine Work Phone: Comment on above: PATIENT WAS FASTINGP ERFORMED BY: [address] [id number] BY: LabN[facility] Ukuqyv0299 [address] RoadDublin [place] [id number] ALT enzyme act/vol 26 [iU]/L Normal 0-44 [facility] Internal Medicine Work Phone: Comment on above: PATIENT WAS FASTINGP ERFORMED BY: [address] [id number] BY: [facility] Hygzfu7818 [address] RoadDublin [place] [id number] AST [Catalytic activity/Vol] 23 U/L Normal 0-40 [facility]; [facility] Work Phone: Comment on above: PATIENT WAS FASTINGP ERFORMED BY: LabCo[address] [id number] BY: [facility] Roscyd3687 [address] RoadDublin [place] [id number] AST enzyme act/vol 23 [iU]/L Normal 0-40 Compre hensive Internal Medicine Work Phone: Comment on above: PATIENT WAS FASTINGP ERFORMED BY: Lab[address] [id number] BY: LabCoHaley Ville 1627970 [address] [facility] [id number] Bilirubin mass conc 0.5 mg/dL Normal 0.0-1.2 Compr ehensive Internal Medicine Work Phone: Comment on above: PATIENT WAS FASTINGP ERFORMED BY: Lab[address] [id number] BY: LabCo Vhyqqq8876 [address] [facility]in [place] [id number] Calcium mass conc 9.4 mg/dL Normal 8.6-10.2 Compreh ensive Internal Medicine Work Phone: Comment on above: PATIENT WAS FASTINGP ERFORMED BY: Lab[address] [id number] BY: [facility] Swuoiy1942 [address] [facility]in [place] [id number] Chloride molar conc 103 mmol/L Normal 96-106 Compr ehensive Internal Medicine Work Phone: Comment on above: PATIENT WAS FASTINGP ERFORMED BY: LabCo[address] [id number] BY: [facility] Erhmgs5028 [address] RoadDublin [place] [id number] CO2 molar conc 24 mmol/L Normal 20-29 Comprehens damien Internal Medicine Work Phone: Comment on above: PATIENT WAS FASTINGP ERFORMED BY: [facility] [address] [id number] BY: [facility] Bjedxt1847 [address] RoadDublin [place] [id number] Creatinine mass conc 1.12 mg/dL Normal 0.76-1.27 Comp rehensive Internal Medicine Work Phone: Comment on above: PATIENT WAS FASTINGP ERFORMED BY: [facility] [address] [id number] BY: [facility] Xvnlzr8088 [address] RoadDublin [place] [id number] GFR/1.73 sq M predicted among blacks CKD-EPI vol rate/area (S/P/Bld) 80 mL/min/1.73 Normal Comprehensiv e Internal Medicine Work Phone: Comment on above: PATIENT WAS FASTINGP ERFORMED BY: LabCo[address] [id number] BY: [facility] Zerwno9151 [address] RoadGranville Medical Center [id number] GFR/1.73 sq M predicted among non-blacks CKD-EPI vol rate/area (S/P/Bld) 69 mL/min/1.73 Normal [facility] Work Phone: Comment on above: PATIENT WAS FASTINGP ERFORMED BY: LabCo[address] [id number] BY: [facility] Udrhaj5664 [address] RoadScotland Memorial Hospitalin [place] [id number] Globulin mass conc (S) 2.4 g/dL Normal 1.5-4.5 [facility] Work Phone: Comment on above: PATIENT WAS FASTINGP ERFORMED BY: [facility] [address] [id number] BY: CB [facility] Gihiix0544 [address] Roadblin [place] [id number] Glucose mass conc 84 mg/dL Normal 65-99 Compreh ensive Internal Medicine Work Phone: Comment on above: PATIENT WAS FASTINGP ERFORMED BY: [facility] Wxutwbmfvh1886 [facility] [id number] BY: CAROLA [facility] Rkmaup8499 [address] RoadDublin [place] [id number] Potassium molar conc 4.6 mmol/L Normal 3.5-5.2 Comp rehensive Internal Medicine Work Phone: Comment on above: PATIENT WAS FASTINGP ERFORMED BY: BN [facility] [address] [id number] BY: CB [facility] Nuiwxz1193 [address] RoadDublin [place] [id number] Protein mass conc 7.1 g/dL Normal 6.0-8.5 Compreh ensive Internal Medicine Work Phone: Comment on above: PATIENT WAS FASTINGP ERFORMED BY: BN [facility] [address] [id number] BY: CB [facility] Mhozdp9964 [address] RoadDublin [place] [id number] Sodium molar conc 141 mmol/L Normal 134-144 Compreh ensive Internal Medicine Work Phone: Comment on above: PATIENT WAS FASTINGP ERFORMED BY: [facility] [address] [id number] BY: CAROLA [facility] Tynajj3583 [address] RoadDublin [place] [id number] Urea nitrogen mass conc 23 mg/dL Normal 8-27 [facility] Work Phone: Comment on above: PATIENT WAS FASTINGP ERFORMED BY: [facility] [address] [id number] BY: CB [facility] Fjerle1520 [address] RoadDublin [place] [id number] Urea nitrogen/Creatinine mass ratio 21 mg/mg Normal 10-24 [facility] Work Phone: Comment on above: PATIENT WAS FASTINGP ERFORMED BY: [facility] [address] [id number] BY: CB [facility] Dbisqh350[address] [facility] [id number] MICROALBUMINOrdered By: Syst em Senior Mobile Developer on 10-26-2018 Albumin DL <= 20 mg/L mass conc (U) 5.4 ug/mL Normal [facility] Work Phone: Comment on above: PATIENT WAS FASTINGP ERFORMED BY: [employer] [id number] BY: CAROLA LabCoEssex County HospitalKhftwc9[address] [facility] [id number] Albumin/Creatinine mass ratio (U) 3.6 {mg/g_creat} Normal 0.0-30.0 [facility] Work Phone: Comment on above: Normal: 0.0 - 30.0 A lbuminuria: 31.0 - 300.0 Clinical albuminuria: >300.0 PATIENT WAS FASTINGP ERFORMED BY: [employer] [id number] BY: CAROLA Lifeloc TechnologiesRehabilitation Institute Of Michigan[address] [facility] [address] [id number] Creatinine mass conc (U) 149.3 mg/dL Normal [facility] Work Phone: Comment on above: PATIENT WAS FASTINGP ERFORMED BY: [employer] [id number] BY: CAROLA LabRehabilitation [facility] [facility] [id number] NMR Profile (68016)Ordered B y: Switchboard Operator on 10-26-2018 Cholesterol mass conc 194 mg/dL Normal 100-199 [facility] Work Phone: Comment on above: PATIENT WAS FASTINGP ERFORMED BY: [employer] [id number] BY: LabRehabilitation [facility]6[address] [facility] [id number] Lipoprotein.alpha molar conc 27.2 umol/L Abnormal [facility] Work Phone: Comment on above: PATIENT WAS FASTINGP ERFORMED BY: [employer] [id number] BY: [employer] [facility] [id number] Lipoprotein.beta.sub particle Entitic length 20.3 nm Abnormal [facility] Work Phone: Comment on above: INTERPRETATIVE INFORMATION PARTICLE CONCENTRATION AND SIZE <--Lower CVD Risk Higher CVD Risk--> LDL AND HDL PARTICLES Percentile in Reference Population HDL-P (total) High 75th 50th 25th Low >34.9 34.9 30.5 26.7 <26.7 . Small LDL-P Low 25th 50th 75th High <117 117 527 839 >839 . LDL Size <-Large (Pattern A)-> <-Small (Pattern B)-> 23.0 20.6 20.5 19.0 Small LDL-P and LDL Size are associated with CVD risk, but not afterLDL-P is taken into account. .These assays were developed and their performance characteristicsdetermined by [facility]. These assays have not been cleared by [place] Food and Drug Administration. The clinical utility of theselaboratory values have not been fully established. PATIENT WAS FASTINGP ERFORMED BY: SalesPredict[address] [id number] BY: [employer] [facility] [id number] Lipoprotein.beta.sub particle molar conc 1629 nmol/L Abnormal Comprehensiv e Internal Medicine Work Phone: Comment on above: Low < 1000 Moderate 1000 - 1299 Borderline-High 1300 - 1599 High 1600 - 2000 Very High > 2000 PATIENT WAS FASTINGP ERFORMED BY: BN [facility] [address] [id number] BY: LabN[facility] Esvswp58[address] [facility] [id number] Lipoprotein.beta.sub particle.small molar conc 858 nmol/L Abnormal [facility] Work Phone: Comment on above: PATIENT WAS FASTINGP ERFORMED BY: [address] [id number] BY: [facility] Pyvgbo[address] [id number] Triglyceride mass conc 131 mg/dL Normal 0-149 [facility] Work Phone: Comment on above: PATIENT WAS FASTINGP ERFORMED BY: [address] [id number] BY: [facility] [facility] [id number] NMR Profile (64020) 131 mg/dL Normal 0-149 Compr ensive Internal Medicine Work Phone: Comment on above: . Optimal < 100 Abov e optimal 100 - 129 Borderline 130 - 159 High 160 - 189 Very high > 189 .LDL-C is inaccurate if patient is non-fasting. PATIENT WAS FASTINGP ERFORMED BY: [address] [id number] BY: [facility] [id number] NMR Profile (43481) 37 mg/dL Abnormal Compr ensive Internal Medicine Work Phone: Comment on above: PATIENT WAS FASTINGP ERFORMED BY: [address] [id number] BY: [facility] Vlhgnb[address] [id number] NMR Profile (19566) 194 mg/dL Normal 100-199 Compr ehensive Internal Medicine; [facility] Work Phone: PSA (PROSTATE SPECIFIC ANTIG EN) (V76.44)Ordered By: Switchboard Operator on 10-26-2018 Prostate specific Ag mass conc 5.7 ng/mL Abnormal 0.0-4.0 [facility] Work Phone: Comment on above: Roseanna ECLIA methodol ogy. .According to the [place] [employer], Serum PSA shoulddecrease and remain at undetectable levels after radicalprostatectomy. The AUA defines biochemical recurrence as an initialPSA value 0.2 ng/mL or greater followed by a subsequent confirmatoryPSA value 0.2 ng/mL or greater.Values obtained with different assay methods or kits cannot be usedinterchangeably. Results cannot be interpreted as absolute evidenceof the presence or absence of malignant disease. PATIENT WAS FASTINGP ERFORMED BY: SalesPredictton1447 [facility] [id number] BY: All Together NowFormerly [facility], [facility] [id number] TSH (THYROID STIMULATING HOR [place]) (63152)Ordered By: Switchboard Operator on 10-26-2018 Thyrotropin Qn 1.220 {uIU/mL} Normal 0.450-4.50 0 [facility] Work Phone: Comment on above: PATIENT WAS FASTINGP ERFORMED BY: SalesPredictton1447 [facility] [id number] BY: Sidecar70 [employer] LabsFormerly [facility], [facility] [id number] URINE LINDSEY CULTURE-IDENTIFICA [place] (60329)Ordered By: Switchboard Operator on 11-16-2017 Bacteria identified Cx Nom (U) MUG Normal [facility] Work Phone: Comment on above: Mixed urogenital russ ra1,000 Colonies/mL PATIENT NOT FASTINGP ERFORMED BY: [employer] Mcenss[address] VizibilityGranville Medical Center [id number] Information: SRC:UC Bacteria identified Cx Nom (U) Final report Normal [facility] Work Phone: Comment on above: PATIENT NOT FASTINGP ERFORMED BY: [employer]6370 [employer] LabsFormerly [facility], [facility] [id number] Information: SRC:KAREN Urinalysis, Office (45206)Or dered By: Marilynn Wallace on 11-14-2017 Bilirubin Ql (U) Small Normal Comprehe nsive Internal Medicine Work Phone: Glucose Test strip (U) [Mass/Vol] Negative Normal [facility]; [facility] Work Phone: Glucose Test strip mass conc (U) Negative Normal [facility] Work Phone: Hemoglobin Ql (U) Hemolyzed Trace Normal Co mprehensive Internal Medicine Work Phone: Ketones Ql (U) Negative Normal Comprehens damien Internal Medicine Work Phone: Ketones Ql (U) Negative Normal Comprehens damien Internal Medicine; [facility] Work Phone: Leukocyte esterase Test strip Ql (U) Trace Normal [facility] Work Phone: Nitrite Ql (U) Negative Normal Comprehens damien Internal Medicine Work Phone: Nitrite Ql (U) Negative Normal Comprehens damien Internal Medicine; [facility] Work Phone: pH (U) 6 [pH] Abnormal [facility] Work Phone: Protein Ql (U) 30 mg/dL Normal Comprehens [facility]ien Internal Medicine Work Phone: Specific gravity Relative Density (U) 1.030 1 Abnormal Comprehensi ve Internal Medicine Work Phone: Urobilinogen mass/time (24H U) Normal Normal [facility] Work Phone: Blood Glucose , Office ([phone])Ordered By: Jayla Barlow on 10-05-2017 Glucose Glucometer molar conc (BldC) 114 1 Normal [facility] Work Phone: Comment on above: not fasting HgA1C , Office ([phone])Ordere d By: Jayla Barlow on 10-05-2017 Hemoglobin A1c/Hemoglobin.total mass fraction (Bld) 5.3 % Normal 4.6 - 7.1 Comprehensiv e Internal Medicine Work Phone: PSA TOTAL +%FREE [id number] ([phone])Ordered By: Switchboard Operator on 10-05-2017 Prostate specific Ag mass conc 4.2 ng/mL Abnormal 0.0-4.0 [facility] Work Phone: Comment on above: Roseanna ECLIA methodol ogy. .According to the [place] [employer], Serum PSA shoulddecrease and remain at undetectable levels after radicalprostatectomy. The AUA defines biochemical recurrence as an initialPSA value 0.2 ng/mL or greater followed by a subsequent confirmatoryPSA value 0.2 ng/mL or greater.Values obtained with different assay methods or kits cannot be usedinterchangeably. Results cannot be interpreted as absolute evidenceof the presence or absence of malignant disease. add to blood from 07/29/17; PATIENT NOT FASTINGPERFORMED BY: [employer] [id number] PSA Free mass conc 0.52 ng/mL Normal Compre [facility] Internal Medicine Work Phone: Comment on above: Roseanna ECLIA methodol ogy. add to blood from 07/29/17; PATIENT NOT FASTINGPERFORMED BY: [employer] [place] [id number] PSA Free/Prostate specific Ag.total mass fraction 12.4 % Normal [facility] Internal Medicine Work Phone: Comment on above: The table below list s the probability of prostate cancer formen with non-suspicious SAMY results and total PSA between4 and 10 ng/mL, by patient age (Sushila et al, GALA 1998,279:1542). % Free PSA 50-64 yr 65-75 yr 0.00-10.00% 56% 55% 10.01-15.00% 24% 35% 15.01-20.00% 17% 23% 20.01-25.00% 10% 20% >25.00% 5% 9%Please note: Sushila et al did not make specific recommendations regarding the use of percent free PSA for any other population of men. add to blood from 07/29/17; PATIENT NOT FASTINGPERFORMED BY: [id number] [employer] [place] [id number] CBC W/Diff, AutomatedOrdered By: Switchboard Operator on 07-30-2017 Absolute Neut 6.1 {X10_3/uL} Normal 2.0-7.7 Compreh ensive Internal Medicine Work Phone: Comment on above: [facility] [address] [place], [address] Basophils/100 WBC (Bld) 0.3 % Normal 0-1 [facility] Work Phone: Comment on above: [facility] [address] [place], [address] Eosinophils/100 WBC (Bld) 1.7 % Normal 0-5 [facility] Work Phone: Comment on above: [facility] [address] [place], [address] Erythrocyte distribution width Ratio (RBC) 13.3 % Normal 11.6-14.6 [facility] Work Phone: Comment on above: [facility] [address] [place], [address] Hematocrit Volume Fraction (Bld) 44.0 % Normal 40-54 [facility] Work Phone: Comment on above: [facility] [address] [place], [address] Hemoglobin mass conc (Bld) 14.4 g/dL Normal 13.0-16.5 [facility] Work Phone: Comment on above: [facility] [address] [place], [address] IM GRAN % 0.300 % Normal 0.0-0.9 [facility] Work Phone: Comment on above: IG% - Immature Granu locytes (promyelocytes, myelocytes andmetamyelocytes) > 1% indicates that a LEFT SHIFT is Present. [facility] [address] [place], [place], [phone] Lymphocytes #/vol (Bld) 1.71 {X10_3/ul} Normal 0.83-4.51 [facility] Work Phone: Comment on above: [facility] [address] [place], [address] Lymphocytes/100 WBC (Bld) 19.1 % Normal 19-41 [facility] Work Phone: Comment on above: [facility] [address] [place], [address] MCH Entitic mass (RBC) 29.9 pg Normal 27.0-32.0 [facility] Work Phone: Comment on above: [facility] [address] [place], [address] MCHC mass conc (RBC) 32.7 {g/gl} Normal 32-36 [facility] prehensive Internal Medicine Work Phone: Comment on above: [facility] [address] [place], [address] MCV Entitic volume (RBC) 91.5 fL Normal 80-94 [facility] Work Phone: Comment on above: [facility] [address] [place], [address] Monocytes/100 WBC (Bld) 10.7 % Abnormal 0-10 [facility] Work Phone: Comment on above: [facility] [address] [place], [address] Neutrophils/100 WBC (Bld) 67.9 % Normal 47-70 [facility] Internal Medicine Work Phone: Comment on above: [facility] [address] [place], [address] Platelet mean volume Entitic volume (Bld) 11.5 fL Normal 6.2-12.0 [facility] Internal Medicine Work Phone: Comment on above: [facility] [address] [place], [address] Platelets #/vol (Bld) 176 10*3/uL Normal 150-450 [facility] Work Phone: Comment on above: [facility] [address] [place], [place], [phone] RBC #/vol (Bld) 4.81 {M/mm3} Normal 4.6-6.2 Compreh ensive Internal Medicine Work Phone: Comment on above: [facility] [address] [place], [place], [phone] RDW SD 44.3 fL Abnormal 35.1-43.9 [facility] Work Phone: Comment on above: [facility] [address] [place], [place], [phone] WBC #/vol (Bld) 9.0 10*3/uL Normal 4.4-11.0 Comprehe nsive Internal Medicine Work Phone: Comment on above: [facility] [address] [place], [place], [phone] Comprehensive Metabolic Prof ilOrdered By: Switchboard Operator on 07-30-2017 Comprehensive metabolic 2000 panel 0.60 mg/dL Normal 0.20-1.00 Comprehensi ve Internal Medicine Work Phone: Comment on above: [facility] [address] [place], [place], [phone] Comprehensive metabolic 2000 panel 1.0 {RATIO} Normal 0.9-2.4 Comprehensi ve Internal Medicine Work Phone: Comment on above: [facility] [address] [place], [place], [phone] Comprehensive metabolic 2000 panel 8 1 Normal 5-15 Comprehensi ve Internal Medicine Work Phone: Comment on above: [facility] [address] [place], [place], [phone] Comprehensive metabolic 2000 panel 8.5 mg/dL Normal 8.5-10.1 Comprehensi ve Internal Medicine Work Phone: Comment on above: [facility] [address] [place], [place], [phone] Comprehensive metabolic 2000 panel 89 U/L Normal 45-117 Comprehensi ve Internal Medicine Work Phone: Comment on above: [facility] [address] [place], [place], [phone] Comprehensive metabolic 2000 panel 45 U/L Normal 12-78 Comprehensi ve Internal Medicine Work Phone: Comment on above: [facility] [address] [place], [place], [phone] Comprehensive metabolic 2000 panel 3.7 g/dL Normal 2.2-4.2 Comprehensi ve Internal Medicine Work Phone: Comment on above: Please note revised Albumin AND Globulin reference rangeeffective 2017. [facility] [address] [place], [place], [address] Comprehensive metabolic 2000 panel 29.0 mmol/L Normal 21.0-32.0 Comprehensi ve Internal Medicine Work Phone: Comment on above: [facility] [address] [place], [place], [address] Comprehensive metabolic 2000 panel 1.14 mg/dL Normal 0.70-1.30 Comprehensi ve Internal Medicine Work Phone: Comment on above: The validity of the calculated GFR AND GFRAA in patients over70 years has not been determined. Clinical correlation isessential. [facility] [address] [place], [place], [address] Comprehensive metabolic 2000 panel 141 mmol/L Normal 136-145 Comprehensi ve Internal Medicine Work Phone: Comment on above: [facility] [address] [place], [address] Comprehensive metabolic 2000 panel 69 mL/min Normal Comprehensi ve Internal Medicine Work Phone: Comment on above: Non- GFR Calc [facility] spital [address] [place], [place], [address] Comprehensive metabolic 2000 panel 17 mg/dL Normal 7-18 Comprehensi ve Internal Medicine Work Phone: Comment on above: [facility] spital [address] [place], [place], [phone] Comprehensive metabolic 2000 panel 28 U/L Normal 15-37 Comprehensi ve Internal Medicine Work Phone: Comment on above: [facility] spital [address] [place], [place], [address] Comprehensive metabolic 2000 panel 104 mmol/L Normal 98-107 Comprehensi ve Internal Medicine Work Phone: Comment on above: [facility] spital [address] [place], [place], [phone] Comprehensive metabolic 2000 panel 4.7 mmol/L Normal 3.5-5.1 Comprehensi ve Internal Medicine Work Phone: Comment on above: [facility] [address] [place], [place], [phone] Comprehensive metabolic 2000 panel 97 mg/dL Normal 70-110 Comprehensi ve Internal Medicine Work Phone: Comment on above: [facility] [address] [place], [address] Comprehensive metabolic 2000 panel 83 mL/min Normal Comprehensi ve Internal Medicine Work Phone: Comment on above: GFR Calc [facility] spital [address] [place], [place], [phone] Comprehensive metabolic 2000 panel 14.9 {RATIO} Normal 10-20 Comprehensi ve Internal Medicine Work Phone: Comment on above: [facility] spital [address] [place], [place], [address] Comprehensive metabolic 2000 panel 7.4 g/dL Normal 6.4-8.2 Comprehensi ve Internal Medicine Work Phone: Comment on above: [facility] [address] [place], [place], [address] Hemoglobin F8uUlkaifc By: Sy stem Senior Mobile Developer on 07-30-2017 Hemoglobin A1c/Hemoglobin.total mass fraction (Bld) 5.6 % Normal 4.2-6.3 Comprehensiv e Internal Medicine Work Phone: Comment on above: [facility] [address] [place], [place], [address] Lipid ProfileOrdered By: Zachariah tem Senior Mobile Developer on 07-30-2017 Cholesterol in HDL mass conc 41 mg/dL Normal [facility] Work Phone: Comment on above: The drugs N-Acetylcy steine and Metamizole may falselydepress this assay. Reference Range HDL <40 mg/dL Low HDL Cholesterol HDL >or= 60 mg/dL High HDL Cholesterol [facility] [address] [place], [place], [address] Cholesterol in LDL mass conc 92 mg/dL Normal 0-130 [facility] Work Phone: Comment on above: [facility] [address] [place], [place], [phone] Cholesterol in VLDL mass conc 22 mg/dL Normal 5-40 [facility] Work Phone: Comment on above: [facility] [address] [place], [place], [phone] Cholesterol mass conc 155 mg/dL Normal [facility] Work Phone: Comment on above: <200 mg/dL Desirable 200-240 mg/dL Borderline >240 mg/dL High Risk [facility] [address] [place], [place], [phone] Triglyceride mass conc 109 mg/dL Normal [facility] Work Phone: Comment on above: The drugs N-Acetylcy steine and Metamizole may falselydepress this assay.Serum Triglycerides Reference Interval Normal <150 mg/dL Borderline high 150 - 199 mg/dL High 200 - 499 mg/dL Very High > or = 500 mg/dL [facility] [address] [place], [place], [address] MicroalbOrdered By: Katie rico on 07-30-2017 Creatinine mass conc 5.4 {mg/g_CRE} Normal [facility] Work Phone: Comment on above: [facility] [address] [place], [place], [address] Creatinine mass conc 189.00 mg/dL Normal [facility] Work Phone: Comment on above: [facility] [address] [place], [place], [address] Microalb 10.2 mg/L Normal [facility] Work Phone: Comment on above: [place] [address] [place], [place], [address] PSA,Total - Annual ScreenOrd ered By: Switchboard Operator on 07-30-2017 Prostate specific Ag mass conc 4.40 ng/mL Abnormal 0.00-4.00 [facility] Work Phone: Comment on above: This test was perfor med using the TPSA assay method for the[employer] chemistry system. Values obtained with differentassay methods cannot be used interchangably.When changing PSA assays in the course of monitoring apatient, additional sequential testing should be carriedout to confirm baseline values. [place] [address] [place], [place], [phone] Thyroid Stim Hormone (TSH)Or dered By: Switchboard Operator on 07-30-2017 Thyrotropin Qn 0.81 {uIU/mL} Normal 0.358-3.74 Compreh [facility] Internal Medicine Work Phone: Comment on above: [facility] [address] [place], [place], [address] Urinalysis, Routine (Dipstic k)Ordered By: Switchboard Operator on 07-30-2017 Clarity Nom (U) Clear Normal Comprehen sive Internal Medicine Work Phone: Comment on above: How was Urine Obtain ed? [facility] [address] [place], [address] Color Nom (U) Yellow Normal Comprehensi ve Internal Medicine Work Phone: Comment on above: How was Urine Obtain ed? [facility] [address] [place], [address] Urinalysis, Routine (Dipstick) Normal Normal [facility] Work Phone: Comment on above: How was Urine Obtain ed? [facility] [address] [place], [address] Urinalysis, Routine (Dipstick) Negative Normal [facility] Work Phone: Comment on above: How was Urine Obtain ed? [facility] [address] [place], [address] Urinalysis, Routine (Dipstick) 6.0 1 Normal 5.0 - 8.0 [facility] Work Phone: Comment on above: How was Urine Obtain ed? [facility] [address] [place], [address] Urinalysis, Routine (Dipstick) 1.020 1 Normal 1.002-1.03 0 [facility] Work Phone: Comment on above: How was Urine Obtain ed? [facility] [address] [place], [address] Urinalysis, Routine (Dipstick) 100 /ul Abnormal [facility] Work Phone: Comment on above: How was Urine Obtain ed? [facility] [address] [place], [address] Vitamin D,25 HydroxyOrdered By: Switchboard Operator on 07-30-2017 Vitamin D,25 Hydroxy 48.2 ng/mL Normal Comp rehensive Internal Medicine Work Phone: Comment on above: Vitamin D 25(OH) Sta tus Range Deficiency <20 ng/mL (50nmol/L) Insuffciency 20 - 30 ng/mL (50 - 75 nmol/L) Sufficiency 30 - 100 ng/mL (75 - 250 nmol/L) Toxicity >100 ng/mL (>250 nmol/L) [facility] [address] [place], [id number] Blood Glucose , Office ([phone])Ordered By: Pastora Marino on 11-24-2016 Glucose Glucometer molar conc (BldC) 103 1 Normal [facility] Work Phone: HgA1C , Office ([phone])Ordere d By: Pastora Marino on 11-24-2016 Hemoglobin A1c/Hemoglobin.total mass fraction (Bld) 5.5 % Normal 4.6 - 7.1 Comprehensiv e Internal Medicine Work Phone: CBC W/Diff, AutomatedOrdered By: Switchboard Operator on 11-13-2016 Absolute Neut 5.7 {X10_3/uL} Normal 2.0-7.7 Compreh ensive Internal Medicine Work Phone: Comment on above: [facility] [address] [place], [address] Basophils/100 WBC (Bld) 0.5 % Normal 0-1 [facility] Work Phone: Comment on above: [facility] [address] [place], [address] Eosinophils/100 WBC (Bld) 1.8 % Normal 0-5 [facility] Work Phone: Comment on above: [facility] [address] [place], [place], [phone] Erythrocyte distribution width Ratio (RBC) 13.3 % Normal 11.6-14.6 [facility] Work Phone: Comment on above: [facility] [address] [place], [address] Hematocrit Volume Fraction (Bld) 42.8 % Normal 40-54 [facility] Work Phone: Comment on above: [facility] [address] [place], [address] Hemoglobin mass conc (Bld) 14.6 g/dL Normal 13.0-16.5 [facility] Work Phone: Comment on above: [facility] [address] [place], [address] IM GRAN % 0.700 % Normal 0.0-0.9 [facility] Work Phone: Comment on above: IG% - Immature Granu locytes (promyelocytes, myelocytes andmetamyelocytes) > 1% indicates that a LEFT SHIFT is Present. [facility] [address] [place], [address] Lymphocytes #/vol (Bld) 1.90 {X10_3/ul} Normal 0.83-4.51 [facility] Work Phone: Comment on above: [facility] [address] [place], [address] Lymphocytes/100 WBC (Bld) 22.2 % Normal 19-41 [facility] Work Phone: Comment on above: [facility] [address] [place], [address] MCH Entitic mass (RBC) 30.7 pg Normal 27.0-32.0 [facility] Work Phone: Comment on above: [facility] [address] [place], [address] MCHC mass conc (RBC) 34.1 {g/gl} Normal 32-36 [facility] prehensive Internal Medicine Work Phone: Comment on above: [facility] spital [address] [place], [place], [phone] MCV Entitic volume (RBC) 89.9 fL Normal 80-94 [facility] Work Phone: Comment on above: [facility] spital [address] [place], [address] Monocytes/100 WBC (Bld) 9.0 % Normal 0-10 [facility] Work Phone: Comment on above: [facility] spital [address] [place], [address] Neutrophils/100 WBC (Bld) 65.8 % Normal 47-70 [facility] Work Phone: Comment on above: [facility] [address] [place], [place], [phone] Platelet mean volume Entitic volume (Bld) 11.9 fL Normal 6.2-12.0 Comprehensi Internal Medicine Work Phone: Comment on above: [facility] [address] [place], [address] Platelets #/vol (Bld) 175 10*3/uL Normal 150-450 [facility] Work Phone: Comment on above: [facility] [address] [place], [address] RBC #/vol (Bld) 4.76 {M/mm3} Normal 4.6-6.2 Compreh ensive Internal Medicine Work Phone: Comment on above: [facility] [address] [place], [address] RDW SD 43.1 fL Normal 35.1-43.9 [facility] Work Phone: Comment on above: [facility] [address] [place], [address] WBC #/vol (Bld) 8.6 10*3/uL Normal 4.4-11.0 Comprehe nsive Internal Medicine Work Phone: Comment on above: [facility] [address] [place], [place], [address] Comprehensive Metabolic Prof ilOrdered By: Switchboard Operator on 11-13-2016 Comprehensive metabolic 2000 panel 0.60 mg/dL Normal 0.20-1.00 Comprehensi ve Internal Medicine Work Phone: Comment on above: [facility] [address] [place], [place], [phone] Comprehensive metabolic 2000 panel 89 mg/dL Normal 70-110 Comprehensi ve Internal Medicine Work Phone: Comment on above: [facility] [address] [place], [place], [phone] Comprehensive metabolic 2000 panel 20 mg/dL Abnormal 7-18 Comprehensi ve Internal Medicine Work Phone: Comment on above: [facility] [address] [place], [place], [address] Comprehensive metabolic 2000 panel 4.1 mmol/L Normal 3.5-5.1 Comprehensi ve Internal Medicine Work Phone: Comment on above: [facility] [address] [place], [place], [address] Comprehensive metabolic 2000 panel 139 mmol/L Normal 136-145 Comprehensi ve Internal Medicine Work Phone: Comment on above: [facility] [address] [place], [place], [address] Comprehensive metabolic 2000 panel 27.0 mmol/L Normal 21.0-32.0 Comprehensi ve Internal Medicine Work Phone: Comment on above: [facility] spital [address] [place], [place], [address] Comprehensive metabolic 2000 panel 8 1 Normal 5-15 Comprehensi ve Internal Medicine Work Phone: Comment on above: [facility] [address] [place], [place], [address] Comprehensive metabolic 2000 panel 1.06 mg/dL Normal 0.70-1.30 Comprehensi ve Internal Medicine Work Phone: Comment on above: The validity of the calculated GFR AND GFRAA in patients over70 years has not been determined. Clinical correlation isessential. [facility] [address] [place], [address] Comprehensive metabolic 2000 panel 75 mL/min Normal Comprehensi ve Internal Medicine Work Phone: Comment on above: Non- GFR Calc [facility] [address] [place], [place], [address] Comprehensive metabolic 2000 panel 3.4 g/dL Normal 2.3-3.5 Comprehensi ve Internal Medicine Work Phone: Comment on above: [facility] [address] [place], [place], [address] Comprehensive metabolic 2000 panel 104 mmol/L Normal 98-107 Comprehensi ve Internal Medicine Work Phone: Comment on above: [facility] [address] [place], [place], [address] Comprehensive metabolic 2000 panel 91 mL/min Normal Comprehensi ve Internal Medicine Work Phone: Comment on above: GFR Calc [facility] [address] [place], [place], [address] Comprehensive metabolic 2000 panel 18.9 {RATIO} Normal 10-20 Comprehensi ve Internal Medicine Work Phone: Comment on above: [facility] [address] [place], [place], [address] Comprehensive metabolic 2000 panel 3.7 g/dL Normal 3.4-5.0 Comprehensi ve Internal Medicine Work Phone: Comment on above: [facility] [address] [place], [address] Comprehensive metabolic 2000 panel 1.1 {RATIO} Normal 0.9-2.4 Comprehensi ve Internal Medicine Work Phone: Comment on above: [facility] [address] [place], [place], [address] Comprehensive metabolic 2000 panel 22 U/L Normal 15-37 Comprehensi ve Internal Medicine Work Phone: Comment on above: [facility] [address] [place], [place], [address] Comprehensive metabolic 2000 panel 79 U/L Normal 45-117 Comprehensi ve Internal Medicine Work Phone: Comment on above: [facility] [address] [place], [place], [address] Comprehensive metabolic 2000 panel 7.1 g/dL Normal 6.4-8.2 Comprehensi ve Internal Medicine Work Phone: Comment on above: [facility] [address] [place], [place], [address] Comprehensive metabolic 2000 panel 26 U/L Normal 12-78 Comprehensi ve Internal Medicine Work Phone: Comment on above: [facility] [address] [place], [place], [address] Comprehensive metabolic 2000 panel 8.4 mg/dL Abnormal 8.5-10.1 Comprehensi ve Internal Medicine Work Phone: Comment on above: [facility] [address] [place], [place], [address] Lipid ProfileOrdered By: Holly tem Senior Mobile Developer on 11-13-2016 Cholesterol in HDL mass conc 38 mg/dL Abnormal [facility] Work Phone: Comment on above: The drugs N-Acetylcy steine and Metamizole may falsely deressthis assay. Reference Range HDL <40 mg/dL Low HDL Cholesterol HDL >or= 60 mg/dL High HDL Cholesterol [facility] [address] [place], [place], [id number] Cholesterol in LDL mass conc 75 mg/dL Normal 0-130 [facility] Work Phone: Comment on above: [facility] [address] [place], [place], [phone] Cholesterol in VLDL mass conc 21 mg/dL Normal 5-40 [facility] Work Phone: Comment on above: [facility] [address] [place], [place], [phone] Cholesterol mass conc 134 mg/dL Normal [facility] Work Phone: Comment on above: <200 mg/dL Desirable 200-240 mg/dL Borderline >240 mg/dL High Risk [facility] [address] [place], [place], [id number] Triglyceride mass conc 105 mg/dL Normal [facility] Work Phone: Comment on above: The drugs N-Acetylcy steine and Metamizole may falsely deressthis assay.Serum Triglycerides Reference Interval Normal <150 mg/dL Borderline high 150 - 199 mg/dL High 200 - 499 mg/dL Very High > or = 500 mg/dL [facility] [address] [place], [place], [id number] MicroalbOrdered By: Katie rico on 11-13-2016 Creatinine mass conc Test not performed Normal [facility] Work Phone: Comment on above: [facility] [address] [place], [place], [address] Creatinine mass conc 49.40 mg/dL Normal [facility] prehensive Internal Medicine Work Phone: Comment on above: [facility] [address] [place], [place], [address] Microalb < 5.0 Normal [facility] Work Phone: Comment on above: [facility] [address] [place], [place], [address] Thyroid Stim Hormone (TSH)Or dered By: Switchboard Operator on 11-13-2016 Thyrotropin Qn 1.05 {uIU/mL} Normal 0.358-3.74 Compreh ensive Internal Medicine Work Phone: Comment on above: [facility] [address] [place], [id number] Urinalysis, CompleteOrdered By: Switchboard Operator on 11-13-2016 Protein mass conc (U) Negative Normal [facility] Work Phone: Comment on above: How was Urine Obtain ed? [facility] N[address]pmiuhg[address] [place], [phone] RBC #/vol (U) 0 SEEN Normal 0-5 Comprehensi ve Internal Medicine Work Phone: Comment on above: How was Urine Obtain ed? [facility] Z[address]ommhzugb[address] [place], [place], [address] Urinalysis complete panel - Urine 0 SEEN Normal [facility] Work Phone: Comment on above: How was Urine Obtain ed? [facility] [address]xkbmpixx[address] [place], [place], [id number] Urinalysis complete panel - Urine RARE Normal [facility] Work Phone: Comment on above: How was Urine Obtain ed? [facility] Hocirkdtxu[address] [place], [place], [phone] Urinalysis complete panel - Urine 0-5 SEEN Normal 0-5 [facility] Work Phone: Comment on above: How was Urine Obtain ed? [facility] Avrhqelenx[address] [place], [place], [address] Urinalysis complete panel - Urine Clear Normal [facility] Work Phone: Comment on above: How was Urine Obtain ed? [facility] Yvwewkvfmx[address] [place], [address] Urinalysis complete panel - Urine 25 /ul Abnormal [facility] Work Phone: Comment on above: How was Urine Obtain ed? [facility] [address]amvhbbzw[address] [place], [address] Urinalysis complete panel - Urine Negative Normal [facility] Work Phone: Comment on above: How was Urine Obtain ed? [facility] Aubsvrjktx[address] [place], [address] Urinalysis complete panel - Urine Normal Normal [facility] Work Phone: Comment on above: How was Urine Obtain ed? [facility] Wylarmsmoy[address] [place], [address] Urinalysis complete panel - Urine 6.0 1 Normal 5.0 - 8.0 [facility] Work Phone: Comment on above: How was Urine Obtain ed? [facility] Qkdugvrmig[address] [place], [address] Urinalysis complete panel - Urine Yellow Normal [facility] Work Phone: Comment on above: How was Urine Obtain ed? [facility] N[address]qj[address]cfit[address] [place], [address] Urinalysis complete panel - Urine 1.010 1 Normal 1.002-1.03 0 [facility] Work Phone: Comment on above: How was Urine Obtain ed? [facility] [address]srvnas[address] [place], [address] Vitamin D,25 HydroxyOrdered By: Switchboard Operator on 11-13-2016 Vitamin D,25 Hydroxy 25.4 ng/mL Normal Comp rehensive Internal Medicine Work Phone: Comment on above: Vitamin D 25(OH) Sta tus Range Deficiency <20 ng/mL (50nmol/L) Insuffciency 20 - 30 ng/mL (50 - 75 nmol/L) Sufficiency 30 - 100 ng/mL (75 - 250 nmol/L) Toxicity >100 ng/mL (>250 nmol/L) [facility] [address] [place], [address] Blood Glucose , Office ([phone])Ordered By: Pastora Marino on 07-21-2016 Glucose Glucometer molar conc (BldC) 97 1 Normal [facility] Work Phone: HgA1C , Office ([phone])Ordere d By: Pastora Marino on 07-21-2016 Hemoglobin A1c/Hemoglobin.total mass fraction (Bld) 5.3 % Normal 4.6 - 7.1 Comprehensiv e Internal Medicine Work Phone: Fecal Occult Blood , Office ([phone])Ordered By: Tonny Fontenot on 04-09-2016 Hemoglobin.gastroint estinal Ql (St) Negative Normal [facility] Work Phone: Hemoglobin.gastroint estinal Ql (Stl) Negative Normal [facility]; [facility] Work Phone: Blood Glucose , Office ([phone])Ordered By: Pastora Marino on 03-19-2016 Glucose Glucometer molar conc (BldC) 82 1 Normal [facility] Work Phone: CALCIFIDIOL ([phone]) VIT D 25 Ordered By: Switchboard Operator on 03-19-2016 25-Hydroxyvitamin D2+25-Hydroxyvitamin D3 mass conc 33.3 ng/mL Normal 30.0-100.0 [facility] Work Phone: Comment on above: Vitamin D deficiency has been defined by the [place] ofMedicine and an Endocrine Society practice guideline as alevel of serum 25-OH vitamin D less than 20 ng/mL (1,2).The Endocrine Society went on to further define vitamin Dinsufficiency as a level between 21 and 29 ng/mL (2).1. IOM ([place] of Medicine). 2010. Dietary reference intakes for calcium and D. [place]: The National Academies Press.2. Rayna UGARTE, Ana Luisa HASSAN, Dominick-Shiv CUBA, et al. Evaluation, treatment, and prevention of vitamin D deficiency: an Endocrine Society clinical practice guideline. JCEM. 2010; 96(7):1911-30. PATIENT WAS FASTINGP ERFORMED BY: [facility] [id number] CBC W/AUTO DIFF WBC ([id number])O rdered By: Switchboard Operator on 03-19-2016 Basophils #/vol (Bld) 0.1 {x10E3/uL} Normal 0.0-0.2 [facility] Work Phone: Comment on above: PATIENT WAS FASTINGP ERFORMED BY: [facility] [id number] Information: [id number] Basophils (Bld) [#/Vol] 0.1 10*3/uL Normal 0.0-0.2 [facility]; [facility] Work Phone: Comment on above: PATIENT WAS FASTINGP ERFORMED BY: [facility] [id number] Information: [id number] Basophils/100 WBC (Bld) 1 % Normal [facility] Work Phone: Comment on above: PATIENT WAS FASTINGP ERFORMED BY: [facility] [id number] Information: [id number] Eosinophils #/vol (Bld) 0.2 {x10E3/uL} Normal 0.0-0.4 [facility] Work Phone: Comment on above: PATIENT WAS FASTINGP ERFORMED BY: [facility] [id number] Information: [id number] Eosinophils (Bld) [#/Vol] 0.2 10*3/uL Normal 0.0-0.4 [facility]; [facility] Work Phone: Comment on above: PATIENT WAS FASTINGP ERFORMED BY: [facility] [id number] Information: [id number] Eosinophils/100 WBC (Bld) 2 % Normal [facility] Work Phone: Comment on above: PATIENT WAS FASTINGP ERFORMED BY: [place] [address] [id number] Information: [id number] Erythrocyte distribution width Ratio (RBC) 13.8 % Normal 12.3-15.4 [facility] Work Phone: Comment on above: PATIENT WAS FASTINGP ERFORMED BY: [address] [id number] Information: [id number] Hematocrit Volume Fraction (Bld) 44.8 % Normal 37.5-51.0 [facility] Work Phone: Comment on above: PATIENT WAS FASTINGP ERFORMED BY: [address] [id number] Information: [id number] Hemoglobin mass conc (Bld) 15.0 g/dL Normal 12.6-17.7 [facility] Work Phone: Comment on above: PATIENT WAS FASTINGP ERFORMED BY: [place] [address] [id number] Information: [id number] Immature granulocytes #/vol (Bld) 0.0 {x10E3/uL} Normal 0.0-0.1 [facility] Work Phone: Comment on above: PATIENT WAS FASTINGP ERFORMED BY: [place] [address] [id number] Information: [id number] Immature granulocytes (Bld) [#/Vol] 0.0 10*3/uL Normal 0.0-0.1 [facility]; [facility] Work Phone: Comment on above: PATIENT WAS FASTINGP ERFORMED BY: [address] [id number] Information: [id number] Immature granulocytes/100 WBC (Bld) 0 % Normal [facility] Work Phone: Comment on above: PATIENT WAS FASTINGP ERFORMED BY: [place] [address] [id number] Information: [id number] Lymphocytes #/vol (Bld) 2.6 {x10E3/uL} Normal 0.7-3.1 [facility] Work Phone: Comment on above: PATIENT WAS FASTINGP ERFORMED BY: [address] [id number] Information: [id number] Lymphocytes (Bld) [#/Vol] 2.6 10*3/uL Normal 0.7-3.1 [facility]; [facility] Work Phone: Comment on above: PATIENT WAS FASTINGP ERFORMED BY: [address] [id number] Information: [id number] Lymphocytes/100 WBC (Bld) 23 % Normal [facility] Work Phone: Comment on above: PATIENT WAS FASTINGP ERFORMED BY: [address] [id number] Information: [id number] MCH Entitic mass (RBC) 30.4 pg Normal 26.6-33.0 [facility] Work Phone: Comment on above: PATIENT WAS FASTINGP ERFORMED BY: [place] [address] [id number] Information: [id number] MCHC mass conc (RBC) 33.5 g/dL Normal 31.5-35.7 [facility] Work Phone: Comment on above: PATIENT WAS FASTINGP ERFORMED BY: [address] [id number] Information: [id number] MCV Entitic volume (RBC) 91 fL Normal 79-97 [facility] Work Phone: Comment on above: PATIENT WAS FASTINGP ERFORMED BY: CAROLA [place] [address] [id number] Information: [id number] Monocytes #/vol (Bld) 1.0 {x10E3/uL} Abnormal 0.1-0.9 [facility] Work Phone: Comment on above: PATIENT WAS FASTINGP ERFORMED BY: [address] [id number] Information: [id number] Monocytes (Bld) [#/Vol] 1.0 10*3/uL Abnormal 0.1-0.9 [facility]; [facility] Work Phone: Comment on above: PATIENT WAS FASTINGP ERFORMED BY: [address] [id number] Information: [id number] Monocytes/100 WBC (Bld) 9 % Normal [facility] Work Phone: Comment on above: PATIENT WAS FASTINGP ERFORMED BY: [address] [id number] Information: [id number] Neutrophils #/vol (Bld) 7.3 {x10E3/uL} Abnormal 1.4-7.0 [facility] Work Phone: Comment on above: PATIENT WAS FASTINGP ERFORMED BY: [address] [id number] Information: [id number] Neutrophils (Bld) [#/Vol] 7.3 10*3/uL Abnormal 1.4-7.0 [facility]; [facility] Work Phone: Comment on above: PATIENT WAS FASTINGP ERFORMED BY: [address] [id number] Information: [id number] Neutrophils/100 WBC (Bld) 65 % Normal [facility] Work Phone: Comment on above: PATIENT WAS FASTINGP ERFORMED BY: CAROLA [employer] [id number] Information: [id number] Platelets #/vol (Bld) 176 {x10E3/uL} Normal 150-379 [facility] Work Phone: Comment on above: PATIENT WAS FASTINGP ERFORMED BY: [facility] [id number] Information: [id number] Platelets (Bld) [#/Vol] 176 10*3/uL Normal 150-379 [facility]; [facility] Work Phone: Comment on above: PATIENT WAS FASTINGP ERFORMED BY: [facility] Kagsql[address] [id number] Information: [id number] RBC #/vol (Bld) 4.94 {x10E6/uL} Normal 4.14-5.[address] [facility] Work Phone: Comment on above: PATIENT WAS FASTINGP ERFORMED BY: CAROLA Leticia [address] [id number] Information: [id number] RBC (Bld) [#/Vol] 4.94 10*6/uL Normal 4.14-5.80 Compr ehensive Internal Medicine; [facility] Work Phone: Comment on above: PATIENT WAS FASTINGP ERFORMED BY: [facility] [id number] Information: [id number] WBC #/vol (Bld) 11.3 {x10E3/uL} Abnormal 3.4-10.[address] [facility] Work Phone: Comment on above: PATIENT WAS FASTINGP ERFORMED BY: [facility] [id number] Information: [id number] WBC (Bld) [#/Vol] 11.3 10*3/uL Abnormal 3.4-10.8 Compr ensive Internal Medicine; [facility] Work Phone: Comment on above: PATIENT WAS FASTINGP ERFORMED BY: [employer] [id number] Information: [id number] HgA1C , Office ([phone])Ordere d By: Pastora Marino on 03-19-2016 Hemoglobin A1c/Hemoglobin.total mass fraction (Bld) 5.5 % Normal 4.6 - 7.1 Comprehensiv e Internal Medicine Work Phone: LIPID PANEL ([phone])Ordered B y: Switchboard Operator on 03-19-2016 Cholesterol in HDL mass conc 35 mg/dL Abnormal [facility] Work Phone: Comment on above: According to ATP-III Guidelines, HDL-C >59 mg/dL is considered anegative risk factor for CHD. PATIENT WAS FASTINGP ERFORMED BY: [employer] [employer] LabsFormerly [facility] [id number] Cholesterol in LDL mass conc 86 mg/dL Normal 0-99 [facility] Work Phone: Comment on above: PATIENT WAS FASTINGP ERFORMED BY: [employer] [id number] Cholesterol in LDL/Cholesterol in HDL mass ratio 2.5 {ratio_units} Normal 0.0-3.6 [facility] Work Phone: Comment on above: LDL/HDL Ratio Men Wo men 1/2 Avg.Risk 1.0 1.5 Avg.Risk 3.6 3.2 2X Avg.Risk 6.2 5.0 3X Avg.Risk 8.0 6.1 PATIENT WAS FASTINGP ERFORMED BY: [employer] [facility] [id number] Cholesterol in VLDL mass conc 35 mg/dL Normal 5-40 [facility] Work Phone: Comment on above: PATIENT WAS FASTINGP ERFORMED BY: CAROLA Leticia Buvfap[address] [facility] [place] [id number] Cholesterol mass conc 156 mg/dL Normal 100-199 [facility] Work Phone: Comment on above: PATIENT WAS FASTINGP ERFORMED BY: [facility] Chorpt[address] [facility] [id number] Triglyceride mass conc 175 mg/dL Abnormal 0-149 [facility] Work Phone: Comment on above: PATIENT WAS FASTINGP ERFORMED BY: [facility] Pqqzdt[address] [facility] [id number] METABOLIC PANEL, COMPREHENSI VE ([id number])Ordered By: Switchboard Operator on 03-19-2016 Albumin mass conc 4.5 g/dL Normal 3.6-4.8 Compreh ensive Internal Medicine Work Phone: Comment on above: PATIENT WAS FASTINGP ERFORMED BY: [facility] Qtxbbb[address] [id number] Albumin/Globulin mass ratio 1.8 {ratio} Normal 1.1-2.5 [facility] Work Phone: Comment on above: PATIENT WAS FASTINGP ERFORMED BY: [facility] Wingbb[address] [facility] [id number] ALP [Catalytic activity/Vol] 86 U/L Normal 39-117 [facility]; [facility] Work Phone: Comment on above: PATIENT WAS FASTINGP ERFORMED BY: [facility] Tuuyxc2446 [address] [facility] [id number] ALP enzyme act/vol 86 [iU]/L Normal 39-117 Compre hensive Internal Medicine Work Phone: Comment on above: PATIENT WAS FASTINGP ERFORMED BY: [facility] Ifxwha[address]52 [address] [facility] [id number] ALT [Catalytic activity/Vol] 17 U/L Normal 0-44 [facility]; [facility] Work Phone: Comment on above: PATIENT WAS FASTINGP ERFORMED BY: [facility] Clsxjq6833 [address] RoadDublin [place] [id number] ALT enzyme act/vol 17 [iU]/L Normal 0-44 [facility] Internal Medicine Work Phone: Comment on above: PATIENT WAS FASTINGP ERFORMED BY: CAROLA [facility] Ccpvkb4603 [address] RoadDublin [place] [id number] AST [Catalytic activity/Vol] 18 U/L Normal 0-40 [facility]; [facility] Work Phone: Comment on above: PATIENT WAS FASTINGP ERFORMED BY: CAROLA [facility] Dcbaeu5094 [address] RoadDublin [place] [id number] AST enzyme act/vol 18 [iU]/L Normal 0-40 [facility] Work Phone: Comment on above: PATIENT WAS FASTINGP ERFORMED BY: CAROLA [facility] Xmufow9053 [address] RoadDublin [place] [id number] Bilirubin mass conc 0.5 mg/dL Normal 0.0-1.2 Compr ensive Internal Medicine Work Phone: Comment on above: PATIENT WAS FASTINGP ERFORMED BY: CAROLA [facility] Gqvora6050 [address] RoadDublin [place] [id number] Calcium mass conc 9.0 mg/dL Normal 8.6-10.2 [facility] Work Phone: Comment on above: PATIENT WAS FASTINGP ERFORMED BY: CAROLA [facility] Gxcqls[address] RoadDublin [place] [id number] Chloride molar conc 102 mmol/L Normal 97-108 Compr ensive Internal Medicine Work Phone: Comment on above: PATIENT WAS FASTINGP ERFORMED BY: CAROLA [facility] Nkzcnj7863 [address] RoadDublin [place] [id number] CO2 molar conc 20 mmol/L Normal 18-29 Comprehens damien Internal Medicine Work Phone: Comment on above: PATIENT WAS FASTINGP ERFORMED BY: CAROLA [facility] Ndpree94[address] RoadDublin [place] [id number] Creatinine mass conc 1.00 mg/dL Normal 0.76-1.[address] [facility] Work Phone: Comment on above: PATIENT WAS FASTINGP ERFORMED BY: CB [facility] Dmuuff8790 [address] RoadDublin [place] [id number] GFR/1.73 sq M predicted among blacks CKD-EPI vol rate/area (S/P/Bld) 93 mL/min/1.73 Normal Comprehensiv e Internal Medicine Work Phone: Comment on above: PATIENT WAS FASTINGP ERFORMED BY: CB [facility] Fkruiy7123 [address] RoadDublin [place] [id number] GFR/1.73 sq M predicted among non-blacks CKD-EPI vol rate/area (S/P/Bld) 80 mL/min/1.73 Normal [facility] Work Phone: Comment on above: PATIENT WAS FASTINGP ERFORMED BY: CB [facility] Galbzz1492 [address] RoadDublin [place] [id number] Globulin mass conc (S) 2.5 g/dL Normal 1.5-4.5 [facility] Work Phone: Comment on above: PATIENT WAS FASTINGP ERFORMED BY: CB [facility] Ajrkko[address] [facility] HospitalD[facility] [place] [id number] Glucose mass conc 87 mg/dL Normal 65-99 Compreh ensive Internal Medicine Work Phone: Comment on above: PATIENT WAS FASTINGP ERFORMED BY: CB [facility] Rzptrr8847 [address] [facility] [place] [id number] Potassium molar conc 4.2 mmol/L Normal 3.5-5.2 Comp rehensive Internal Medicine Work Phone: Comment on above: PATIENT WAS FASTINGP ERFORMED BY: CB [facility] Euqdbe8250 [address] RoadDublin [place] [id number] Protein mass conc 7.0 g/dL Normal 6.0-8.5 Compreh ensive Internal Medicine Work Phone: Comment on above: PATIENT WAS FASTINGP ERFORMED BY: CB [facility] Thzyxd2737 [address] Roadblin [place] [id number] Sodium molar conc 143 mmol/L Normal 134-144 Compreh ensive Internal Medicine Work Phone: Comment on above: PATIENT WAS FASTINGP ERFORMED BY: [facility]A [facility] Aesnhj9098 [address] [facility] Centerbl[facility] [place] [id number] Urea nitrogen mass conc 19 mg/dL Normal 8-27 [facility] Work Phone: Comment on above: PATIENT WAS FASTINGP ERFORMED BY: CAROLA [facility] Maukmd9811 [address] RoadScotland Memorial Hospitalin [place] [id number] Urea nitrogen/Creatinine mass ratio 19 mg/mg Normal 10-22 [facility] Work Phone: Comment on above: PATIENT WAS FASTINGP ERFORMED BY: CAROLA [facility] Rnblqn1069 [address] [facility]in [place] [id number] MICROALBUMINOrdered By: Syst em Senior Mobile Developer on 03-19-2016 Albumin DL <= 20 mg/L mass conc (U) 3.4 ug/mL Normal [facility] Work Phone: Comment on above: PATIENT WAS FASTINGP ERFORMED BY: CAROLA Dos SantosNortheast Regional Medical Center Unjbfx8424 [address] [facility]in [place] [id number] Albumin/Creatinine mass ratio (U) 2.2 {mg/g_creat} Normal 0.0-30.0 [facility] Work Phone: Comment on above: PATIENT WAS FASTINGP ERFORMED BY: CAROLA Averylin[address] [facility] Centerbl[facility] [place] [id number] Creatinine mass conc (U) 151.2 mg/dL Normal [facility] Work Phone: Comment on above: PATIENT WAS FASTINGP ERFORMED BY: CAROLA Dos SantosNortheast Regional [facility] Center Kcpxrf3380 [facility]in [place] [id number] Microscopic ExaminationOrder ed By: Switchboard Operator on 03-19-2016 Bacteria LM.HPF #/area (Urine sed) Few Normal [facility] Work Phone: Comment on above: PATIENT WAS FASTINGP ERFORMED BY: CAROLA [facility] Skvzqm6918 [address] [facility] Centerblin [place] [id number] Crystals LM Nom (Urine sed) Calcium Oxalate Normal [facility] Work Phone: Comment on above: PATIENT WAS FASTINGP ERFORMED BY: [facility] Nmtazs4085 [address] [facility] Centerblin [place] [id number] Epithelial cells LM.HPF #/area (Urine sed) 0-10 Normal 0 - 10 [facility] Work Phone: Comment on above: PATIENT WAS FASTINGP ERFORMED BY: [facility] Detqbq6799 [address] RoadDublin [place] [id number] Mucus Ql (Urine sed) Present Normal Comp rehensive Internal Medicine Work Phone: Comment on above: PATIENT WAS FASTINGP ERFORMED BY: [facility] Xnqqvz1109 [address] RoadDublin [place] [id number] RBC LM.HPF #/area (Urine sed) 0-2 Normal 0 - 2 [facility] Work Phone: Comment on above: PATIENT WAS FASTINGP ERFORMED BY: [facility] Mypbez4594 [address] [facility] HospitalD[facility] [place] [id number] Unidentified crystals LM Ql (Urine sed) Present Abnormal [facility] Work Phone: Comment on above: PATIENT WAS FASTINGP ERFORMED BY: [facility] Lpruof5327 [address] [facility]in [place] [id number] WBC LM.HPF #/area (Urine sed) 6-10 Abnormal 0 - 5 [facility] Work Phone: Comment on above: PATIENT WAS FASTINGP ERFORMED BY: [facility] Xfbqsv3643 [address] [facility] [id number] PSA (PROSTATE SPECIFIC ANTIG EN) (V76.44)Ordered By: Switchboard Operator on 03-19-2016 Prostate specific Ag mass conc 2.6 ng/mL Normal 0.0-4.0 [facility] Work Phone: Comment on above: Roseanna ECLIA methodol ogy. .According to the [place] [employer], Serum PSA shoulddecrease and remain at undetectable levels after radicalprostatectomy. The AUA defines biochemical recurrence as an initialPSA value 0.2 ng/mL or greater followed by a subsequent confirmatoryPSA value 0.2 ng/mL or greater.Values obtained with different assay methods or kits cannot be usedinterchangeably. Results cannot be interpreted as absolute evidenceof the presence or absence of malignant disease. PATIENT WAS FASTINGP ERFORMED BY: [facility] Cqzjfo6485 Clayton RoadDublin [place] [id number] TSH ([id number])Ordered By: Domobiose m Senior Mobile Developer on 03-19-2016 Thyrotropin Qn 1.200 {uIU/mL} Normal 0.450-4.50 0 [facility] Work Phone: Comment on above: PATIENT WAS FASTINGP ERFORMED BY: [facility] Qjjdqo6262 Clayton RoadDublin [place] [id number] URINALYSIS, W/ MICRO ([id number]) Ordered By: Switchboard Operator on 03-19-2016 Appearance Nom (U) Clear Normal Compre hensive Internal Medicine Work Phone: Comment on above: PATIENT WAS FASTINGP ERFORMED BY: [facility] Mnsfpb1839 Clayton RoadDublin [place] [id number] Bilirubin Ql (U) Negative Normal Comprehe nsive Internal Medicine Work Phone: Comment on above: PATIENT WAS FASTINGP ERFORMED BY: [facility] Ejovmt5220 Clayton RoadDublin [place] [id number] Bilirubin Ql (U) Negative Normal Comprehe nsive Internal Medicine; [facility] Work Phone: Comment on above: PATIENT WAS FASTINGP ERFORMED BY: [facility] Nyeerc9209 [address] RoadDublin [place] [id number] Color Nom (U) Yellow Normal Comprehensi ve Internal Medicine Work Phone: Comment on above: PATIENT WAS FASTINGP ERFORMED BY: [facility] Qzepyu3640 [address] RoadDublin [place] [id number] Glucose Ql (U) Negative Normal Comprehens damien Internal Medicine Work Phone: Comment on above: PATIENT WAS FASTINGP ERFORMED BY: [facility] Yltlpf0371 [address] RoadDublin [place] [id number] Glucose Ql (U) Negative Normal Comprehens damien [facility]; [facility] Work Phone: Comment on above: PATIENT WAS FASTINGP ERFORMED BY: [facility] Gcjtnn8530 Clayton RoadDublin [place] [id number] Hemoglobin Ql (U) Negative Normal Compreh ensive Internal Medicine Work Phone: Comment on above: PATIENT WAS FASTINGP ERFORMED BY: CAROLA Cuevas[address] [id number] Hemoglobin Ql (U) Negative Normal Compreh ensive Internal Medicine; [facility] Work Phone: Comment on above: PATIENT WAS FASTINGP ERFORMED BY: CAROLA Cuevas[address] [facility] [id number] Ketones Ql (U) Negative Normal Comprehens damien [facility] Work Phone: Comment on above: PATIENT WAS FASTINGP ERFORMED BY: CAROLA Cuevas[address] [id number] Ketones Ql (U) Negative Normal Comprehens damien [facility]; [facility] Work Phone: Comment on above: PATIENT WAS FASTINGP ERFORMED BY: CAROLA Cuevas[address] [id number] Leukocyte esterase Test strip Ql (U) 1+ Abnormal [facility] Work Phone: Comment on above: PATIENT WAS FASTINGP ERFORMED BY: CAROLA Cuevas[address] [id number] Microscopic observation LM Nom (Urine sed) See below: Normal [facility] Work Phone: Comment on above: Microscopic was jayden cated and was performed. PATIENT WAS FASTINGP ERFORMED BY: CAROLA Averylin[address] [id number] Nitrite Ql (U) Negative Normal Comprehens damien [facility] Work Phone: Comment on above: PATIENT WAS FASTINGP ERFORMED BY: CAROLA Averylin[address] [id number] Nitrite Ql (U) Negative Normal Comprehens damien [facility]; [facility] Work Phone: Comment on above: PATIENT WAS FASTINGP ERFORMED BY: CAROLA Averylin[address] [id number] pH (U) 6.0 [pH] Normal 5.0-7.5 [facility] Work Phone: Comment on above: PATIENT WAS FASTINGP ERFORMED BY: [facility] [id number] Protein Ql (U) Negative Normal Comprehens damien [facility] Medicine Work Phone: Comment on above: PATIENT WAS FASTINGP ERFORMED BY: [facility] [id number] Protein Ql (U) Negative Normal Comprehens damien Internal Medicine; [facility] Work Phone: Comment on above: PATIENT WAS FASTINGP ERFORMED BY: [facility] [id number] Specific gravity Relative Density (U) 1.022 1 Normal 1.005-1.03 0 [facility] Work Phone: Comment on above: PATIENT WAS FASTINGP ERFORMED BY: [facility] [id number] Urobilinogen (U) [Mass/Vol] 0.2 mg/dL Normal 0.2-1.0 [facility]; [facility] Work Phone: Comment on above: PATIENT WAS FASTINGP ERFORMED BY: [facility] [id number] Urobilinogen Test strip mass conc (U) 0.2 mg/dL Normal 0.2-1.0 Comprehensiv e Internal Medicine Work Phone: Comment on above: PATIENT WAS FASTINGP ERFORMED BY: [facility] [id number] Comprehensive Metabolic Prof ilOrdered By: Switchboard Operator on 08-16-2015 Comprehensive metabolic 2000 panel 4.4 mmol/L Normal 3.5-5.1 Comprehensi ve Internal Medicine Work Phone: Comment on above: [facility] [address] [facility] [place], [address] Comprehensive metabolic 2000 panel 147 mmol/L Abnormal 136-145 Comprehensi ve Internal Medicine Work Phone: Comment on above: [facility] [address] [place], [place], [id number] Comprehensive metabolic 2000 panel 3.8 g/dL Abnormal 2.3-3.5 Comprehensi ve Internal Medicine Work Phone: Comment on above: [facility] [address] [place], [place], [id number] Comprehensive metabolic 2000 panel 3.6 g/dL Normal 3.4-5.0 Comprehensi ve Internal Medicine Work Phone: Comment on above: [facility] [address] [place], [place], [address] Comprehensive metabolic 2000 panel 0.50 mg/dL Normal 0.20-1.00 Comprehensi ve Internal Medicine Work Phone: Comment on above: [facility] [address] [place], [place], [id number] Comprehensive metabolic 2000 panel 7.4 g/dL Normal 6.4-8.2 Comprehensi ve Internal Medicine Work Phone: Comment on above: [facility] [address] [place], [place], [id number] Comprehensive metabolic 2000 panel 17.4 {RATIO} Normal 10-20 Comprehensi ve Internal Medicine Work Phone: Comment on above: [facility] [address] [place], [address] Comprehensive metabolic 2000 panel 83 mL/min Normal Comprehensi ve Internal Medicine Work Phone: Comment on above: GFR Calc [facility] [address] [place], [address] Comprehensive metabolic 2000 panel 69 mL/min Normal Comprehensi ve Internal Medicine Work Phone: Comment on above: Non- GFR Calc [facility] [address] [place], [place], [address]574[address] Comprehensive metabolic 2000 panel 1.15 mg/dL Normal 0.70-1.30 Comprehensi ve Internal Medicine Work Phone: Comment on above: The validity of the calculated GFR AND GFRAA in patients over70 years has not been determined. Clinical correlation isessential. [facility] [address] [place], [place], [address] Comprehensive metabolic 2000 panel 20 mg/dL Abnormal 7-18 Comprehensi ve Internal Medicine Work Phone: Comment on above: [facility] [address] [place], [place], [address] Comprehensive metabolic 2000 panel 112 mmol/L Abnormal 98-107 Comprehensi ve Internal Medicine Work Phone: Comment on above: [facility] [address] [place], [place], 215221 Comprehensive metabolic 2000 panel 22 U/L Normal 12-78 Comprehensi ve Internal Medicine Work Phone: Comment on above: [facility] [address] [place], [place], [phone] Comprehensive metabolic 2000 panel 100 mg/dL Normal 70-110 Comprehensi ve Internal Medicine Work Phone: Comment on above: [facility] [address] [place], [place], [address]15[address] Comprehensive metabolic 2000 panel 107 U/L Normal 50-136 Comprehensi ve Internal Medicine Work Phone: Comment on above: [facility] [address] [place], [place], [id number] Comprehensive metabolic 2000 panel 18 U/L Normal 15-37 Comprehensi ve Internal Medicine Work Phone: Comment on above: [facility] [address] [place], [place], [address] Comprehensive metabolic 2000 panel 29.0 mmol/L Normal 21.0-32.0 Comprehensi ve Internal Medicine Work Phone: Comment on above: [facility] [address] [place], [place], [address] Comprehensive metabolic 2000 panel 8.3 mg/dL Abnormal 8.5-10.1 Comprehensi ve Internal Medicine Work Phone: Comment on above: [facility] [address] [place], [place], [address] Comprehensive metabolic 2000 panel 0.9 {RATIO} Normal 0.9-2.4 Comprehensi ve Internal Medicine Work Phone: Comment on above: [facility] [address] [place], [place], [address] Comprehensive metabolic 2000 panel 6 1 Normal 5-15 Comprehensi ve Internal Medicine Work Phone: Comment on above: [facility] [address] [place], [place], [id number] Lipid ProfileOrdered By: Holly tem Senior Mobile Developer on 08-16-2015 Cholesterol in HDL mass conc 36 mg/dL Abnormal [facility] Work Phone: Comment on above: Reference Range HDL <40 mg/dL Low HDL Cholesterol HDL >or= 60 mg/dL High HDL Cholesterol [facility] [address] [place], [place], [id number] Cholesterol in LDL mass conc 91 mg/dL Normal 0-130 [facility] Work Phone: Comment on above: [facility] [address] [place], [place], [address] Cholesterol in VLDL mass conc 27 mg/dL Normal 5-40 [facility] Work Phone: Comment on above: [facility] [address] [place], [place], [phone] Cholesterol mass conc 154 mg/dL Normal [facility] Work Phone: Comment on above: <200 mg/dL Desirable 200-240 mg/dL Borderline >240 mg/dL High Risk [facility] [address] [place], [place], [phone] Triglyceride mass conc 133 mg/dL Normal [facility] Work Phone: Comment on above: Serum Triglycerides Reference Interval Normal <150 mg/dL Borderline high 150 - 199 mg/dL High 200 - 499 mg/dL Very High > or = 500 mg/dL [facility] [address] [place], [place], [id number] Urinalysis, CompleteOrdered By: Switchboard Operator on 08-16-2015 Protein mass conc (U) Negative Normal [facility] Work Phone: Comment on above: [facility] [address] [place], [place], [id number] RBC #/vol (U) 0 SEEN Normal 0-5 Comprehensi ve Internal Medicine Work Phone: Comment on above: How was Urine [facility] ed? [facility] [address] [place], [place], [address] Urinalysis complete panel - Urine 500 /ul Abnormal [facility] Work Phone: Comment on above: How was Urine Obtain ed? [facility] [address] [place], [place], [phone] Urinalysis complete panel - Urine 2+ Normal [facility] Work Phone: Comment on above: How was Urine [facility]btain ed? [facility] [address]ff[address] [place], [place], [phone] Urinalysis complete panel - Urine 0-5 SEEN Normal 0-5 [facility] Work Phone: Comment on above: How was Urine Obtain ed? [facility] [address]nsqt[address] [place], [address] Urinalysis complete panel - Urine Yellow Normal [facility] Work Phone: Comment on above: How was Urine Obtain ed? Urine, [facility] [address] [place], [address] Urinalysis complete panel - Urine Normal Normal [facility] Work Phone: Comment on above: How was Urine Obtain ed? Urine, [facility] [address] [place], [address] Urinalysis complete panel - Urine Clear Normal [facility] Work Phone: Comment on above: How was Urine Obtain ed? Urine, [facility] [address] [place], [address] Urinalysis complete panel - Urine 10-25 SEEN Normal 0-5 [facility] Work Phone: Comment on above: How was Urine Obtain ed? Urine, [facility] [address] [place], [address] Urinalysis complete panel - Urine 0 SEEN Normal 0-5 [facility] Work Phone: Comment on above: How was Urine Obtain ed? [facility], [facility] [address] [place], [address] Urinalysis complete panel - Urine Negative Normal [facility] Work Phone: Comment on above: How was Urine Obtain ed? Urine, [facility] [address] [place], [address] Urinalysis complete panel - Urine 1.020 1 Normal 1.002-1.03 0 [facility] Work Phone: Comment on above: How was Urine Obtain ed? Urine, [facility] [address] [place], [address] Urinalysis complete panel - Urine 6.0 1 Normal 5.0 - 8.0 [facility] Work Phone: Comment on above: How was Urine Obtain ed? Urine, [facility] [address] [place], [place], [phone] Culture, UrineOrdered By: Gochikuru stem Senior Mobile Developer on 10-15-2014 Bacteria identified Cx Nom (U) See Note Normal [facility] Work Phone: Comment on above: Urine CultureCulture exhibits no growth. Test performed at:[facility] [address] [place], [place] [phone] Urinalysis, CompleteOrdered By: Switchboard Operator on 10-15-2014 Protein mass conc (U) Negative Normal [facility] Work Phone: Comment on above: How was Urine Obtain ed? CLEAN CATCHTest performed at:[facility] [address] [place], [place] [phone] RBC #/vol (U) 0 SEEN Normal 0-5 Comprehensi ve Internal Medicine Work Phone: Comment on above: How was Urine Obtain ed? CLEAN CATCHTest performed at:[facility] [address] [place], [place] [phone] Urinalysis complete panel - Urine 0 SEEN Normal [facility] Work Phone: Comment on above: How was Urine Obtain ed? CLEAN CATCHTest performed at:[facility] [address] [place], [place] [phone] Urinalysis complete panel - Urine 100 /ul Abnormal [facility] Work Phone: Comment on above: How was Urine Obtain ed? CLEAN CATCHTest performed at:[facility] [address] [place], [place] [address] Urinalysis complete panel - Urine Clear Normal [facility] Work Phone: Comment on above: How was Urine Obtain ed? CLEAN CATCHTest performed at:[facility] [address] [place], [place] [phone] Urinalysis complete panel - Urine Yellow Normal [facility] Work Phone: Comment on above: How was Urine Obtain ed? CLEAN CATCHTest performed at:[facility] [address] [place] [address] Urinalysis complete panel - Urine 1.015 1 Normal 1.002-1.03 0 [facility] Work Phone: Comment on above: How was Urine Obtain ed? CLEAN CATCHTest performed at:[facility] [address] [place] [address] Urinalysis complete panel - Urine 6.0 1 Normal 5.0 - 8.0 [facility] Work Phone: Comment on above: How was Urine Obtain ed? CLEAN CATCHTest performed at:[facility] [address] [place] [address] Urinalysis complete panel - Urine Normal Normal [facility] Work Phone: Comment on above: How was Urine Obtain ed? CLEAN CATCHTest performed at:[facility] Icegtgcenv[address] [facility] [place] [address] Urinalysis complete panel - Urine Negative Normal [facility] Work Phone: Comment on above: How was Urine Obtain ed? CLEAN CATCHTest performed at:[facility] [address] [place] [address] Urinalysis complete panel - Urine 10 /ul Abnormal [facility] Work Phone: Comment on above: How was Urine Obtain ed? CLEAN CATCHTest performed at:[facility] [address] [place] [address] Urinalysis complete panel - Urine 0-5 SEEN Normal 0-5 [facility] Work Phone: Comment on above: How was Urine Obtain ed? CLEAN CATCHTest performed at:[facility] [address] [place] [address] Rapid Flu (44787 x 2)Ordered By: Breana Jama on 10-01-2014 FLUAV Ag IA Ql (Throat) Negative Normal [facility] Work Phone: FLUAV Ag IA Ql (Throat) Negative Normal [facility]; [facility] Work Phone: HgA1C , Office ([phone])Ordere d By: Pastora Marino on 09-02-2014 Hemoglobin A1c/Hemoglobin.total mass fraction (Bld) 5.6 % Normal 4.6 - 7.1 Comprehensiv e Internal Medicine Work Phone: CBC W/Diff, AutomatedOrdered By: Switchboard Operator on 07-13-2014 Absolute Neut 6.4 {X10_3/uL} Normal 2.0-7.7 Compreh ensive Internal Medicine Work Phone: Comment on above: Test performed at:[facility] [address] [place] [address] Basophils/100 WBC (Bld) 0.5 % Normal 0-1 [facility] Work Phone: Comment on above: Test performed at:[facility] [address] [place] [address] Eosinophils/100 WBC (Bld) 1.6 % Normal 0-5 [facility] Work Phone: Comment on above: Test performed at:[facility] [address] [place] [address] Erythrocyte distribution width Ratio (RBC) 13.3 % Normal 11.6-14.6 [facility] Work Phone: Comment on above: Test performed at:[facility] [address] [place] [address] Hematocrit Volume Fraction (Bld) 44.4 % Normal 40-54 [facility] Work Phone: Comment on above: Test performed at:[facility] [address] [place] [address] Hemoglobin mass conc (Bld) 14.7 g/dL Normal 13.0-16.5 [facility] Work Phone: Comment on above: Test performed at:[facility] [address] [place] [address] IM GRAN % 0.700 % Normal 0.0-0.9 [facility] Work Phone: Comment on above: IG% - Immature Granu locytes (promyelocytes, myelocytes andmetamyelocytes) > 1% indicates that a LEFT SHIFT is Present. Test performed at:[facility] [address] [place] [address] Lymphocytes #/vol (Bld) 2.10 {X10_3/ul} Normal 0.83-4.51 [facility] Work Phone: Comment on above: Test performed at:[facility] [address] [place] [address] Lymphocytes/100 WBC (Bld) 21.6 % Normal 19-41 [facility] Work Phone: Comment on above: Test performed at:[facility] [address] [place] [address] MCH Entitic mass (RBC) 29.6 pg Normal 27.0-32.0 [facility] Work Phone: Comment on above: Test performed at:[facility] [address] [place] [address] MCHC mass conc (RBC) 33.1 {g/gl} Normal 32-36 [facility] prehensive Internal Medicine Work Phone: Comment on above: Test performed at:[facility] [address] [place] [address] MCV Entitic volume (RBC) 89.3 fL Normal 80-94 [facility] Work Phone: Comment on above: Test performed at:[facility] [address] [place] [address] Monocytes/100 WBC (Bld) 10.0 % Normal 0-10 [facility] Work Phone: Comment on above: Test performed at:[facility] [address] [place] [address] Neutrophils/100 WBC (Bld) 65.6 % Normal 47-70 [facility] Work Phone: Comment on above: Test performed at:[facility] [address] [place] [address] Platelet mean volume Entitic volume (Bld) 10.8 fL Normal 6.2-12.0 Comprehensi ve Internal Medicine Work Phone: Comment on above: Test performed at:[facility] [address] [place] [address] Platelets #/vol (Bld) 211 10*3/uL Normal 150-450 [facility] Work Phone: Comment on above: Test performed at:[facility] [address] [place] [address] RBC #/vol (Bld) 4.97 {M/mm3} Normal 4.6-6.2 Compreh ensive Internal Medicine Work Phone: Comment on above: Test performed at:[facility] [address] [place] [address] RDW SD 43.1 fL Normal 35.1-43.9 [facility] Work Phone: Comment on above: Test performed at:[facility] [address] [place] [address] WBC #/vol (Bld) 9.7 10*3/uL Normal 4.4-11.0 Comprehe nsive Internal Medicine Work Phone: Comment on above: Test performed at:[facility] [address] [place] [address] Comprehensive Metabolic Prof ilOrdered By: Switchboard Operator on 07-13-2014 Albumin mass conc 3.8 g/dL Normal 3.4-5.0 Compreh ensive Internal Medicine Work Phone: Comment on above: Test performed at:[facility] [address] [place] [address] Albumin/Globulin mass ratio 1.2 {RATIO} Normal 0.9-2.4 [facility] Work Phone: Comment on above: Test performed at:[facility] [address] [place] [address] ALT enzyme act/vol 35 U/L Normal 12-78 [facility] Internal Medicine Work Phone: Comment on above: Test performed at:[facility] [address] [place] [address] AST enzyme act/vol 21 U/L Normal 15-37 [facility] Internal Medicine Work Phone: Comment on above: Test performed at:[facility] [address] [place] [address] Bilirubin mass conc 0.60 mg/dL Normal 0.00-4.00 [facility] Internal Medicine Work Phone: Comment on above: Test performed at:[facility] [address] [place] [address] Calcium mass conc 9.3 mg/dL Normal 8.5-10.1 Compreh [facility] Internal Medicine Work Phone: Comment on above: Test performed at:[facility] [address] [place] [address] Chloride molar conc 107 mmol/L Normal 98-107 [facility] Internal Medicine Work Phone: Comment on above: Test performed at:[facility] [address] [place] [address] CO2 molar conc 27.0 mmol/L Normal 21.0-32.0 [facility] Work Phone: Comment on above: Test performed at:[facility] [address] [place] [address] Creatinine mass conc 1.1 mg/dL Normal 0.8-1.3 Comp rehensive Internal Medicine Work Phone: Comment on above: Test performed at:[facility] [address] [place] [address] GFR/1.73 sq M predicted among non-blacks MDRD vol rate/area (S/P/Bld) 73 mL/min/{1.73_m2} Normal Comprehe nsive Internal Medicine Work Phone: Comment on above: Test performed at:[facility] [address] [place] [address] Globulin mass conc (S) 3.3 g/dL Normal 2.7-4.2 [facility] Work Phone: Comment on above: Test performed at:[facility] [address] [place] [address] Glucose mass conc 94 mg/dL Normal 70-110 Compreh ensive Internal Medicine Work Phone: Comment on above: Test performed at:[facility] [facility] [id number] [place] [address] Potassium molar conc 4.5 mmol/L Normal 3.5-5.1 Comp rehensive Internal Medicine Work Phone: Comment on above: Test performed at:[facility] [id number] [place] [address] Protein mass conc 7.1 g/dL Normal 6.4-8.2 Compreh ensive Internal Medicine Work Phone: Comment on above: Test performed at:[facility] [address] [place] [address] Sodium molar conc 140 mmol/L Normal 136-145 Compreh ensive Internal Medicine Work Phone: Comment on above: Test performed at:[facility] [address] [place] [address] Urea nitrogen mass conc 17 mg/dL Normal 7-18 [facility] Work Phone: Comment on above: Test performed at:[facility] [address] [place], [place] [id number] Comprehensive Metabolic Profil 6 1 Normal 5-15 [facility] Work Phone: Comment on above: Test performed at:[facility] [address] [place] [address] Comprehensive Metabolic Profil 88 mL/min Normal [facility] Work Phone: Comment on above: Test performed at:[facility] [address] [place] [address] Comprehensive Metabolic Profil 15.5 {RATIO} Normal 10-20 [facility] Work Phone: Comment on above: Test performed at:[facility] [address] [place] [address] Comprehensive Metabolic Profil 98 U/L Normal 50-136 [facility] Work Phone: Comment on above: Test performed at:[facility] [address] [place] [address] Lipid ProfileOrdered By: Holly tem Senior Mobile Developer on 07-13-2014 Cholesterol in HDL mass conc 32 mg/dL Abnormal [facility] Work Phone: Comment on above: Reference Range HDL <40 mg/dL Low HDL Cholesterol HDL >or= 60 mg/dL High HDL Cholesterol Test performed at:[facility] [address] [place] [address] Cholesterol in LDL mass conc 101 mg/dL Normal 0-130 [facility] Work Phone: Comment on above: Test performed at:[facility] [address] [place] [address] Cholesterol in VLDL mass conc 29 mg/dL Normal 5-40 [facility] Work Phone: Comment on above: Test performed at:[facility] [address] [place] [address] Cholesterol mass conc 162 mg/dL Normal [facility] Work Phone: Comment on above: <200 mg/dL Desirable 200-240 mg/dL Borderline >240 mg/dL High Risk Test performed at:[facility] [address] [place] [address] Triglyceride mass conc 147 mg/dL Normal 0-199 [facility] Work Phone: Comment on above: Serum Triglycerides Reference Interval Normal <150 mg/dL Borderline high 150 - 199 mg/dL High 200 - 499 mg/dL Very High > or = 500 mg/dL Test performed at:[facility] [address] [place] [address] PSA,Total - Annual ScreenOrd ered By: Switchboard Operator on 07-13-2014 PSA,Total - Annual Screen 3.33 ng/mL Normal 0.00-4.00 [facility] Work Phone: Comment on above: This test was perfor med using the TPSA assay method for the[employer] chemistry system. Values obtained with differentassay methods cannot be used interchangably.When changing PSA assays in the course of monitoring apatient, additional sequential testing should be carriedout to confirm baseline values. Test performed at:[facility] [address] [place] [address] BMPOrdered By: System Manage r on 03-15-2014 Calcium mass conc 8.7 mg/dL Normal 8.5-10.1 Compreh ensive Internal Medicine Work Phone: Chloride molar conc 107 mmol/L Normal 98-107 Compr ehensive Internal Medicine Work Phone: CO2 molar conc 28.0 mmol/L Normal 21.0-32.0 Comprehen sive Internal Medicine Work Phone: Creatinine mass conc 1.2 mg/dL Normal 0.8-1.3 Comp rehensive Internal Medicine Work Phone: GFR/1.73 sq M predicted among non-blacks MDRD vol rate/area (S/P/Bld) 66 mL/min/{1.73_m2} Normal Comprehe nsive Internal Medicine Work Phone: Glucose mass conc 119 mg/dL Abnormal 70-110 Compreh ensive Internal Medicine Work Phone: Comment on above: Fasting Glucose resu lt from 110 to <126 mg/dLsuggests IMPAIRED HOMEOSTASIS per A.D.A. criteria. Potassium molar conc 3.9 mmol/L Normal 3.5-5.1 Comp rehensive Internal Medicine Work Phone: Sodium molar conc 138 mmol/L Normal 136-145 Compreh ensive Internal Medicine Work Phone: Urea nitrogen mass conc 19 mg/dL Abnormal 7-18 [facility] Work Phone: BMP 15.8 {RATIO} Normal 10-20 Comprehensiv e Internal Medicine Work Phone: BMP 80 mL/min Normal [facility] Work Phone: BMP 3 1 Abnormal 5-15 [facility] Work Phone: CBCDOrdered By: System Manag er on 03-15-2014 Erythrocyte distribution width Ratio (RBC) 13.3 % Normal 11.6-14.6 [facility] Work Phone: Hematocrit Volume Fraction (Bld) 42.4 % Normal 40-54 [facility] Work Phone: Hemoglobin mass conc (Bld) 14.8 g/dL Normal 13.0-16.5 [facility] Work Phone: MCH Entitic mass (RBC) 30.4 pg Normal 27.0-32.0 [facility] Work Phone: MCHC mass conc (RBC) 34.9 {g/gl} Normal 32-36 Com prehensive Internal Medicine Work Phone: MCV Entitic volume (RBC) 87.1 fL Normal 80-94 [facility] Work Phone: Platelet mean volume Entitic volume (Bld) 10.9 fL Normal 6.2-12.0 Comprehensi ve Internal Medicine Work Phone: Platelets #/vol (Bld) 193 10*3/uL Normal 150-450 [facility] Work Phone: RBC #/vol (Bld) 4.87 {M/mm3} Normal 4.6-6.2 Compreh ensive Internal Medicine Work Phone: WBC #/vol (Bld) 9.5 10*3/uL Normal 4.4-11.0 Comprehe nsive Internal Medicine Work Phone: CBCD 19.8 % Normal 19-41 [facility] Work Phone: CBCD 9.7 % Normal 0-10 [facility] Work Phone: CBCD 1.8 % Normal 0-5 [facility] Work Phone: CBCD 0.8 % Normal 0-1 [facility] Work Phone: CBCD 0.800 % Normal 0.0-0.9 [facility] Work Phone: Comment on above: IG% - Immature Granu locytes (promyelocytes, myelocytes andmetamyelocytes) > 1% indicates that a LEFT SHIFT is Present. CBCD 6.4 {X10_3/uL} Normal 2.0-7.7 Comprehens damien Internal Medicine Work Phone: CBCD 1.88 {X10_3/ul} Normal 0.83-4.51 Comprehen sive Internal Medicine Work Phone: CBCD 41.4 fL Normal 35.1-43.9 [facility] Work Phone: CBCD 67.1 % Normal 47-70 [facility] Work Phone: HgA1C , Office ([phone])Ordere d By: Nelly Forde on 10-08-2013 Hemoglobin A1c/Hemoglobin.total mass fraction (Bld) 5.4 % Normal 4.6 - 7.1 Comprehensiv e Internal Medicine Work Phone: CMPOrdered By: System Manage r on 09-01-2013 Albumin mass conc 4.0 g/dL Normal 3.4-5.0 Compreh ensive Internal Medicine Work Phone: Albumin/Globulin mass ratio 1.3 {RATIO} Normal 0.9-2.4 [facility] Work Phone: ALP enzyme act/vol 102 U/L Normal 50-[address] [facility] Internal Medicine Work Phone: ALT enzyme act/vol 33 U/L Normal 12-[address] [facility] Internal Medicine Work Phone: AST enzyme act/vol 22 U/L Normal 15-[address] [facility] Internal Medicine Work Phone: Bilirubin mass conc 0.40 mg/dL Normal 0.00-1.00 Compr ensive Internal Medicine Work Phone: Calcium mass conc 8.6 mg/dL Normal 8.5-10.1 [facility] Work Phone: Chloride molar conc 108 mmol/L Abnormal 98-107 Compr [facility] Internal Medicine Work Phone: CO2 molar conc 29.0 mmol/L Normal 21.0-32.0 Comprehen [facility] Internal [facility] Work Phone: Creatinine mass conc 1.4 mg/dL Abnormal 0.8-1.3 Comp [facility] Internal Medicine Work Phone: GFR/1.73 sq M predicted among non-blacks MDRD vol rate/area (S/P/Bld) 55 mL/min/{1.73_m2} Abnormal Comprehe ive Internal Medicine Work Phone: Globulin mass conc (S) 3.1 g/dL Normal 2.7-4.2 [facility] Internal Medicine Work Phone: Glucose mass conc 97 mg/dL Normal 70-110 Compreh ensive Internal Medicine Work Phone: Potassium molar conc 4.4 mmol/L Normal 3.5-5.[address] [facility] Work Phone: Protein mass conc 7.1 g/dL Normal 6.4-8.2 Compreh ensive Internal Medicine Work Phone: Sodium molar conc 141 mmol/L Normal 136-145 [facility] Work Phone: Urea nitrogen mass conc 19 mg/dL Abnormal 7-18 [facility] Work Phone: Urea nitrogen/Creatinine mass ratio 13.6 {RATIO} Normal 10-20 [facility] Work Phone: CMP 4 1 Abnormal 5-15 [facility] Work Phone: CMP 67 mL/min Normal [facility] Work Phone: LIPIDOrdered By: Katie goncalves on 09-01-2013 Cholesterol in HDL mass conc 30 mg/dL Abnormal [facility] Work Phone: Comment on above: Reference RangeHDL < 40 mg/dL Low HDL CholesterolHDL >or= 60 mg/dL High HDL Cholesterol Cholesterol in LDL mass conc 105 mg/dL Normal 0-130 [facility] Work Phone: Cholesterol mass conc 164 mg/dL Normal [facility] Work Phone: Comment on above: <200 mg/dL Desirable 200-240 mg/dL Borderline>240 mg/dL High Risk Triglyceride mass conc 144 mg/dL Normal 0-199 [facility] Work Phone: Comment on above: Serum Triglycerides Reference IntervalNormal <150 mg/dLBorderline high 150 - 199 mg/dLHigh 200 - 499 mg/dLVery High > or = 500 mg/dL LIPID 29 mg/dL Normal 5-40 [facility] Work Phone: MIACREOrdered By: Katie amador on 09-01-2013 Creatinine mass conc 3.7 {mg/g_CRE} Normal [facility] Work Phone: MIACRE 6.0 mg/L Normal [facility] Work Phone: MIACRE 158.3 mg/dL Normal [facility] Work Phone: HgA1C , Office ([phone])Ordere d By: Nelly Forde on 01-01-2013 Hemoglobin A1c/Hemoglobin.total mass fraction (Bld) 5.8 % Normal 4.6 - 7.1 Comprehensiv e Internal Medicine Work Phone: GALLBLADDEROrdered By: Alethea rodriguez Senior Mobile Developer on 10-26-2012 GALLBLADDER See Note Normal [facility] Work Phone: Comment on above: PROCEDURE: ULTRASOUN D GALLBLADDER REASON FOR VISIT: Male, 57 years old. Back pain. TECHNIQUE: Ultrasound evaluation of the gallbladder was performed withreal-time and static holland-scale imaging. TECHNICAL QUALITY: Adequate. COMPARISON: 10/20/2012 FINDINGS: Gallbladder: There is a partially contracted gallbladder. Thegallbladder wall measures 4.5 mm(normal<3mm). There is a negativesonographic Hanks's sign. There is no pericholecystic fluid. There aremultiple small polyps, the largest is 2-mm. Common Bile Duct (C.B.D.): The common bile duct measures 4.5 mm.There is increased liver parenchymal echogenicity due to hepaticsteatosis.No intrahepatic biliary ductal dilatation.The right kidney is unremarkable for hydronephrosis or calculi. IMPRESSION:1. Multiple small gallbladder polyps and GB wall thickening.2. No intrahepatic or extrahepatic biliary ductal dilatation. Signed:Rinku Cuello M.D.October 26, 2012 at 1:41:40 PM [phone] Signed GK/GORDY If you are the referring physician and would like to consult with theradiologist who provided this interpretation, please contact Rinku Montenegro M.D. at . If this radiologist is unavailable, youwillbe directed to another radiologist to assist. If you are a patient with a question regarding this report, pleasecontactyour referring physician directly. Professional Interpretation Provided By: [employer], Phone , These documents contain legally protected and confidential healthinformation intended only for the use of the individual or entity namedabove. If you are not the intended recipient, you are hereby notifiedthatany disclosure, copying, distribution, or other use of these documents isstrictly prohibited. If you have received this information in error,pleasenotify the sender immediately and arrange for the return or destructionofthese documents. Dictated on 10/26/12 1028 by Sari Cuello MDTranscribed on 10/26/12 1343 by ITS IMPORTSign by Sari Cuello MD on 10/26/12 1343 Sign by: Sari Cuello MD ABDOMEN/PELVIS WITHOUT CONTO rdered By: Switchboard Operator on 10-20-2012 ABDOMEN/PELVIS WITHOUT CONT See Note Normal [facility] Work Phone: Comment on above: PROCEDURE: CT ABDOME N AND PELVIS WITHOUT CONTRAST REASON FOR EXAM: Male, 57 years old. Gross hematuria, and right flankpain. RADIATION DOSAGE (If Supplied By Facility): CTDIvol = ( 6.31 ) mGy, DLP=( 322.79 ) mGycm TECHNIQUE: Transaxial images were obtained from the dome of thediaphragmto the symphysis pubis without oral contrast, and without intravenouscontrast. Multiplanar coronal and sagittal images were reformatted. COMPARISON: None. FINDINGS:The visualized lung bases are unremarkable. The visualized portions oftheheart are within normal limits. Normal liver. The gallbladder is contracted. A tiny gallstone is seenwithin it. Normal spleen. Normal pancreas. Normal bilateral adrenal glands. Normal right kidney. There is a 5.7-mm calculus in the left ureteralpelvic junction causing a mild degree of left hydronephrosis. Normal visualized stomach. Normal small intestine. There are multiplecolonic diverticula consistent with diverticulosis. Three appendicolithsare seen within the appendix. The largest measures 2.7 mm. There is noevidence of appendicitis at this time. There is diffuse atherosclerotic calcification of the abdominal aorta,without a demonstrated aneurysm. Normal inferior vena cava. Normalretroperitoneum. Is a mild degree of bladder wall thickening. There is evidence of asmallurachal extension. There are prostatic calcifications. There is a small umbilical hernia containing fat. There are mild diffusedegenerative changes of the visualized lumbar spine. IMPRESSION:5.7-mm calculus in the left ureteral pelvic junction causing a milddegreeof left hydronephrosis.Tiny gallstone.Three appendicoliths are seen in the appendix. Signed:Oscar Molina M.D.October 20, 2012 at 10:19:34 AM [id number] Signed GP/GP If you are the referring physician and would like to consult with theradiologist who provided this interpretation, please contact [facility] at [phone]. If this radiologist is unavailable, youwill be directed to another radiologist to assist. If you are a patient with a question regarding this report, pleasecontactyour referring physician directly. Professional Interpretation Provided By: [employer], Phone , These documents contain legally protected and confidential healthinformation intended only for the use of the individual or entity namedabove. If you are not the intended recipient, you are hereby notifiedthatany disclosure, copying, distribution, or other use of these documents isstrictly prohibited. If you have received this information in error,pleasenotify the sender immediately and arrange for the return or destructionofthese documents. Dictated on 10/20/12 0950 by Jesse GABRIEL,Brianranscribed on 10/20/12 1020 by ITS IMPORTSign by Oscar Molina MD on 10/20/12 1021 Sign by: Oscar Molina MD URINE LINDSEY CULTURE[place]IDENTIF[place] ([id number])Ordered By: Switchboard Operator on 10-20-2012 Bacteria identified Cx Nom (U) Final report Normal [facility] Work Phone: Comment on above: PATIENT NOT FASTINGP ERFORMED BY: [employer] [facility]Former[facility] [id number] Information: [id number] Bacteria identified Cx Nom (U) [id number] Normal [facility] Work Phone: Comment on above: No growth in 36 - 48 hours. PATIENT NOT FASTINGP ERFORMED BY: [id number] [facility] LabsFormerly [facility] [id number] Information: [id number] Urinalysis, Office ([phone])Or dered By: Elsy Castillo on 10-20-2012 Bilirubin Ql (U) Negative Normal Comprehe nsive Internal Medicine Work Phone: Bilirubin Ql (U) Negative Normal Comprehe nsive Internal Medicine; [facility] Work Phone: Glucose Test strip (U) [Mass/Vol] Negative Normal [facility]; [facility] Work Phone: Glucose Test strip mass conc (U) Negative Normal [facility] Work Phone: Hemoglobin Ql (U) Hemolyzed Large Normal Co mprehensive Internal Medicine Work Phone: Ketones Ql (U) Negative Normal Comprehens damien Internal Medicine Work Phone: Ketones Ql (U) Negative Normal Comprehens damien Internal Medicine; [facility] Work Phone: Leukocyte esterase Test strip Ql (U) Negative Normal [facility] Work Phone: Leukocyte esterase Test strip Ql (U) Negative Normal [facility]; [facility] Work Phone: Nitrite Ql (U) Negative Normal Comprehens damien Internal Medicine Work Phone: Nitrite Ql (U) Negative Normal Comprehens damien [facility] Medicine; [facility] Work Phone: pH (U) 6.0 [pH] Normal [facility] Work Phone: Protein Ql (U) Trace Normal Comprehens damien Internal Medicine Work Phone: Specific gravity Relative Density (U) 1.025 1 Normal Comprehensi Internal Medicine Work Phone: Comment on above: >=1.030 Urobilinogen mass/time (24H U) Normal Normal [facility] Work Phone: BIDOrdered By: System Storyvine r on 07-08-2012 BID 0.07 mg/dL Normal 0.00-0.30 [facility] Work Phone: CBCMDOrdered By: System Jerilyn sacha on 07-08-2012 Eosinophils/100 WBC (Bld) 1 % Normal 0-5 [facility] Work Phone: Erythrocyte distribution width Ratio (RBC) 13.2 % Normal 11.6-14.6 [facility] Work Phone: Hematocrit Volume Fraction (Bld) 44.9 % Normal 40-54 [facility] Work Phone: Hemoglobin mass conc (Bld) 15.2 g/dL Normal 13.0-16.5 [facility] Work Phone: Lymphocytes/100 WBC (Bld) 18 % Abnormal 19-41 [facility] Work Phone: MCH Entitic mass (RBC) 30.5 pg Normal 27.0-32.0 [facility] Work Phone: MCHC mass conc (RBC) 33.9 g/dL Normal 32-36 Comp rehensive Internal Medicine Work Phone: MCV Entitic volume (RBC) 90.2 fL Normal 80-94 [facility] Work Phone: Neutrophils #/vol (Bld) 8.0 3/uL Abnormal 2.0-7.7 [facility] Work Phone: Platelet mean volume Entitic volume (Bld) 11.7 fL Normal 6.2-12.0 Comprehensi ve Internal Medicine Work Phone: Platelets #/vol (Bld) 233 10*3/uL Normal 150-450 [facility] Work Phone: RBC #/vol (Bld) NORM C+C Normal Comprehen sive Internal Medicine Work Phone: RBC #/vol (Bld) 4.98 {M/mm3} Normal 4.6-6.2 Compreh ensive Internal Medicine Work Phone: WBC #/vol (Bld) 12.1 {k/mm3} Abnormal 4.4-11.0 Compreh ensive Internal Medicine Work Phone: CBCMD ADEQUATE Normal [facility] Work Phone: CBCMD 1 % Normal 0-1 [facility] Work Phone: CBCMD 3 % Normal 0-10 [facility] Work Phone: CBCMD 77 % Abnormal 47-70 [facility] Work Phone: CBCMD 43.0 fL Normal 35.1-43.9 [facility] Work Phone: CBCMD 100 1 Normal [facility] Work Phone: CMPOrdered By: System Manage r on 07-08-2012 Albumin mass conc 4.1 g/dL Normal 3.4-5.0 Compreh ensive Internal Medicine Work Phone: Albumin/Globulin mass ratio 1.0 {RATIO} Normal 0.9-2.4 [facility] Work Phone: ALP enzyme act/vol 112 U/L Normal 50-136 Compre [facility]ive Internal Medicine Work Phone: ALT enzyme act/vol 36 U/L Normal 12-[address] [facility] [facility] Internal Medicine Work Phone: Anion gap molar conc 11 mmol/L Normal 5-15 Comp rehensive Internal Medicine Work Phone: AST enzyme act/vol 20 U/L Normal 15-[address] [facility] Internal Medicine Work Phone: Bilirubin mass conc 0.50 mg/dL Normal 0.00-1.00 Compr ehensive Internal Medicine Work Phone: Calcium mass conc 8.8 mg/dL Normal 8.5-10.1 Compreh ensive Internal Medicine Work Phone: Chloride molar conc 103 mmol/L Normal 98-107 Compr ehensive Internal Medicine Work Phone: CO2 molar conc 25.0 mmol/L Normal 21.0-32.0 Comprehen sive Internal Medicine Work Phone: Creatinine mass conc 1.0 mg/dL Normal 0.8-1.3 Comp rehensive Internal Medicine Work Phone: GFR/1.73 sq M predicted among blacks MDRD vol rate/area (S/P/Bld) 99 mL/min/{1.73_m2} Normal Comprehe nsive Internal Medicine Work Phone: GFR/1.73 sq M.predicted MDRD vol rate/area 82 mL/min/{1.73_m2} Normal Comprehensiv e Internal Medicine Work Phone: Globulin mass conc (S) 4.0 g/dL Normal 2.7-4.2 [facility] Work Phone: Glucose mass conc 94 mg/dL Normal 70-110 Compreh ensive Internal Medicine Work Phone: Potassium molar conc 4.3 mmol/L Normal 3.5-5.1 Comp rehensive Internal Medicine Work Phone: Protein mass conc 8.1 g/dL Normal 6.4-8.2 Compreh ensive Internal Medicine Work Phone: Sodium molar conc 139 mmol/L Normal 136-145 Compreh ensive Internal Medicine Work Phone: Urea nitrogen mass conc 20 mg/dL Abnormal 7-18 [facility] Work Phone: Urea nitrogen/Creatinine mass ratio 20.0 {RATIO} Normal 10-20 [facility] Work Phone: LIPIDOrdered By: Katie goncalves on 07-08-2012 Cholesterol in HDL mass conc 30 mg/dL Abnormal [facility] Work Phone: Comment on above: Reference Range HDL <40 mg/dL Low HDL Cholesterol HDL >or= 60 mg/dL High HDL Cholesterol Cholesterol in LDL mass conc 103 mg/dL Normal 0-130 [facility] Work Phone: Cholesterol in VLDL mass conc 27 mg/dL Normal 5-40 [facility] Work Phone: Cholesterol mass conc 160 mg/dL Normal [facility] Work Phone: Comment on above: <200 mg/dL Desirable 200-240 mg/dL Borderline >240 mg/dL High Risk Triglyceride mass conc 134 mg/dL Normal [facility] Work Phone: Comment on above: Serum Triglycerides Reference Interval Normal <150 mg/dL Borderline high 150 - 199 mg/dL High 200 - 499 mg/dL Very High > or = 500 mg/dL TSHOrdered By: System Manage r on 07-08-2012 Thyrotropin Qn 1.61 {uIU/mL} Normal 0.358-3.74 Compreh ensive Internal Medicine Work Phone: HgA1C , Office ([phone])Ordere d By: Nelly Forde on 11-22-2011 Hemoglobin A1c/Hemoglobin.total mass fraction (Bld) 5.7 % Normal 4.6 - 7.1 Comprehensiv e Internal Medicine Work Phone: CMPOrdered By: System Manage r on 11-13-2011 Albumin mass conc 4.1 g/dL Normal 3.4-5.0 Compreh ensive Internal Medicine Work Phone: Comment on above: appt 11/22/11 Albumin/Globulin mass ratio 1.4 {RATIO} Normal 0.9-2.4 [facility] Work Phone: Comment on above: appt 11/22/11 ALP enzyme act/vol 88 U/L Normal 50-136 [facility] Internal Medicine Work Phone: Comment on above: appt 11/22/11 ALT enzyme act/vol 35 U/L Normal 12-78 [facility] Internal Medicine Work Phone: Comment on above: appt 11/22/11 Anion gap molar conc 7 mmol/L Normal 5-15 [facility] Work Phone: Comment on above: appt 11/22/11 AST enzyme act/vol 24 U/L Normal 15-37 [facility] Internal Medicine Work Phone: Comment on above: appt 11/22/11 Bilirubin mass conc 0.70 mg/dL Normal 0.00-1.00 [facility] Internal Medicine Work Phone: Comment on above: appt 11/22/11 Calcium mass conc 8.4 mg/dL Abnormal 8.5-10.1 [facility] Work Phone: Comment on above: appt 11/22/11 Chloride molar conc 108 mmol/L Abnormal 98-107 [facility] Internal Medicine Work Phone: Comment on above: appt 11/22/11 CO2 molar conc 27.0 mmol/L Normal 21.0-32.0 [facility] Internal Medicine Work Phone: Comment on above: appt 11/22/11 Creatinine mass conc 1.2 mg/dL Normal 0.8-1.3 [facility] Work Phone: Comment on above: appt 11/22/11 GFR/1.73 sq M predicted among blacks MDRD vol rate/area (S/P/Bld) 80 mL/min/{1.73_m2} Normal Comprehe nsive Internal Medicine Work Phone: Comment on above: appt 11/22/11 GFR/1.73 sq M.predicted MDRD vol rate/area 66 mL/min/{1.73_m2} Normal Comprehens[facility] e Internal Medicine Work Phone: Comment on above: appt 11/22/11 Globulin mass conc (S) 2.9 g/dL Normal 2.7-4.2 [facility] Work Phone: Comment on above: appt 11/22/11 Glucose mass conc 98 mg/dL Normal 70-110 Compreh ensive Internal Medicine Work Phone: Comment on above: appt 11/22/11 Potassium molar conc 4.1 mmol/L Normal 3.5-5.1 Comp rehensive Internal Medicine Work Phone: Comment on above: appt 11/22/11 Protein mass conc 7.0 g/dL Normal 6.4-8.2 Com[facility] ens[facility] Internal Medicine Work Phone: Comment on above: appt 11/22/11 Sodium molar conc 142 mmol/L Normal 136-145 Compre[facility] ens[facility] Internal Medicine Work Phone: Comment on above: appt 11/22/11 Urea nitrogen mass conc 16 mg/dL Normal 7-18 [facility] Work Phone: Comment on above: appt 11/22/11 Urea nitrogen/Creatinine mass ratio 13.3 {RATIO} Normal 10-20 [facility] Work Phone: Comment on above: appt 11/22/11 LIPIDOrdered By: Katie goncalves on 11-13-2011 Cholesterol in HDL mass conc 29 mg/dL Abnormal [facility] Work Phone: Comment on above: Reference Range HDL <40 mg/dL Low HDL Cholesterol HDL >or= 60 mg/dL High HDL Cholesterol Cholesterol in LDL mass conc 109 mg/dL Normal 0-130 [facility] Work Phone: Cholesterol in VLDL mass conc 24 mg/dL Normal 5-40 [facility] Work Phone: Cholesterol mass conc 162 mg/dL Normal [facility] Work Phone: Comment on above: <200 mg/dL Desirable 200-240 mg/dL Borderline >240 mg/dL High Risk Triglyceride mass conc 118 mg/dL Normal [facility] Work Phone: Comment on above: Serum Triglycerides Reference Interval Normal <150 mg/dL Borderline high 150 - 199 mg/dL High 200 - 499 mg/dL Very High > or = 500 mg/dL Blood Glucose , Office ([phone])Ordered By: Beryl Fermin on 05-26-2011 Glucose Glucometer molar conc (BldC) 72 1 Normal [facility] Work Phone: HgA1C , Office ([id number])Ordere d By: Beryl Fermin on 05-26-2011 Hemoglobin A1c/Hemoglobin.total mass fraction (Bld) 5.6 % Normal 4.6 - 7.1 [facility] Medicine Work Phone: CBCD,SMEAR DIFFOrdered By: S ystem Senior Mobile Developer on 05-22-2011 Band form neutrophils/100 WBC (Bld) 1 % Normal 0-5 [facility] Work Phone: Eosinophils/100 WBC (Bld) 3 % Normal 0-5 [facility] Work Phone: Erythrocyte distribution width Ratio (RBC) 12.8 % Normal 11.6-14.6 [facility] Work Phone: Hematocrit Volume Fraction (Bld) 41.8 % Normal 40-54 [facility] Work Phone: Hemoglobin mass conc (Bld) 14.7 g/dL Normal 14.0-18.0 [facility] Work Phone: Lymphocytes/100 WBC (Bld) 16 % Abnormal 19-41 [facility] Work Phone: MCH Entitic mass (RBC) 31.2 pg Normal 27.0-32.0 [facility] Work Phone: MCHC mass conc (RBC) 35.2 g/dL Normal 32-36 Comp rehensive Internal Medicine Work Phone: MCV Entitic volume (RBC) 88.5 fL Normal 80-94 [facility] Work Phone: Monocytes/100 WBC (Bld) 10 % Normal 0-10 [facility] Work Phone: Neutrophils #/vol (Bld) 6.9 3/uL Normal 2.0-7.7 [facility] Work Phone: Platelets #/vol (Bld) SeeNote Normal [facility] Internal Medicine Work Phone: Comment on above: Result: ADEQUATE Platelets #/vol (Bld) 214 10*3/uL Normal 150-450 [facility] Internal Medicine Work Phone: RBC #/vol (Bld) 4.72 {M/mm3} Normal 4.6-6.2 [facility] Work Phone: WBC #/vol (Bld) 10.1 10*3/uL Normal 4.4-11.0 Compreh [facility] Internal Medicine Work Phone: CBCD,SMEAR DIFF SeeNote [facility] Work Phone: Comment on above: Result: NORM C+C Result: TRACE-INTACT Result: NEGATIVE CBCD,SMEAR DIFF 70 % Normal 47-70 [facility] Internal Medicine Work Phone: CBCD,SMEAR DIFF 100 1 Normal [facility] Work Phone: COMP METABOLICOrdered By: Zachariah stem Senior Mobile Developer on 05-22-2011 Albumin mass conc 3.9 g/dL Normal 3.4-5.0 [facility] Internal Medicine Work Phone: Albumin/Globulin mass ratio 1.1 {RATIO} Normal 0.9-2.4 [facility] Internal Medicine Work Phone: ALP enzyme act/vol 89 U/L Normal 50-136 [facility] Work Phone: ALT enzyme act/vol 32 U/L Normal 12-78 [facility] Work Phone: Anion gap molar conc 9 mmol/L Normal 5-15 Comp rehensive Internal Medicine Work Phone: AST enzyme act/vol 24 U/L Normal 15-37 Compre hensive Internal Medicine Work Phone: Bilirubin mass conc 0.40 mg/dL Normal 0.00-1.00 Compr ehensive Internal Medicine Work Phone: Calcium mass conc 9.3 mg/dL Normal 8.5-10.1 Compre[facility] ens[facility] Internal Medicine Work Phone: Chloride molar conc 104 mmol/L Normal 98-107 Compr ehensive Internal Medicine Work Phone: CO2 molar conc 27.0 mmol/L Normal 21.0-32.0 Comprehen sive Internal Medicine Work Phone: Creatinine mass conc 1.2 mg/dL Normal 0.8-1.3 Comp rehensive Internal Medicine Work Phone: GFR/1.73 sq M predicted among blacks MDRD vol rate/area (S/P/Bld) 80 mL/min/{1.73_m2} Normal Comprehe nsive Internal Medicine Work Phone: GFR/1.73 sq M.predicted MDRD vol rate/area 66 mL/min/{1.73_m2} Normal [facility]prehens[facility] e Internal Medicine Work Phone: Globulin mass conc (S) 3.5 g/dL Normal 2.7-4.2 [facility] Work Phone: Glucose mass conc 101 mg/dL Normal 70-110 Compre[facility] ensive Internal Medicine Work Phone: Potassium molar conc 4.2 mmol/L Normal 3.5-5.1 Comp rehensive Internal Medicine Work Phone: Protein mass conc 7.4 g/dL Normal 6.4-8.2 Compre[facility] ens[facility] Internal Medicine Work Phone: Sodium molar conc 140 mmol/L Normal 136-145 Compre[facility] ens[facility] Internal Medicine Work Phone: Urea nitrogen mass conc 15 mg/dL Normal 7-18 [facility] Work Phone: Urea nitrogen/Creatinine mass ratio 12.5 {RATIO} Normal 10-20 [facility] Work Phone: LIPIDOrdered By: Katie goncalves on 05-22-2011 Cholesterol in HDL mass conc 30 mg/dL Abnormal [facility] Work Phone: Comment on above: Reference Range HDL <40 mg/dL Low HDL Cholesterol HDL >or= 60 mg/dL High HDL Cholesterol Cholesterol in LDL mass conc 98 mg/dL Normal 0-130 [facility] Work Phone: Cholesterol in VLDL mass conc 43 mg/dL Abnormal 5-40 [facility] Work Phone: Cholesterol mass conc 171 mg/dL Normal [facility] Work Phone: Comment on above: <200 mg/dL Desirable 200-240 mg/dL Borderline >240 mg/dL High Risk Triglyceride mass conc 216 mg/dL Abnormal [facility] Work Phone: Comment on above: Serum Triglycerides Reference Interval Normal <150 mg/dL Borderline high 150 - 199 mg/dL High 200 - 499 mg/dL Very High > or = 500 mg/dL PSA, SCREENOrdered By: College[employer]en m Senior Mobile Developer on 05-22-2011 Prostate specific Ag mass conc 1.4 ng/mL Normal 0.0-4.0 [facility] Work Phone: ROUTINE UAOrdered By: Switchboard Operator on 05-22-2011 Clarity Nom (U) CLEAR Normal Comprehen sive Internal Medicine Work Phone: Color Nom (U) YELLOW Normal [facility]prehensi Internal Medicine Work Phone: Glucose mass conc SeeNote Normal Compre[facility] ensive Internal Medicine Work Phone: Comment on above: Result: NEGATIVE Protein mass conc SeeNote Normal Compre[facility] ensive Internal Medicine Work Phone: Comment on above: Result: NEGATIVE ROUTINE UA 1+ Abnormal [facility] Work Phone: ROUTINE UA 0.2 EU/dl Normal 0.2 - 1.0 [facility] Work Phone: ROUTINE UA 6.0 1 Normal 5.0-8.0 [facility] Work Phone: ROUTINE UA 1.020 1 Normal 1.002-1.03 0 [facility] Work Phone: TSHOrdered By: System Manage r on 05-22-2011 Thyrotropin Qn 1.98 {uIU/mL} Normal 0.358-3.74 Compreh ensive Internal Medicine Work Phone: CBCD,SMEAR DIFFOrdered By: S ystem Senior Mobile Developer on 01-24-2010 Erythrocyte distribution width Ratio (RBC) 13.6 % Normal 11.6-14.6 [facility] Work Phone: Hematocrit Volume Fraction (Bld) 42.0 % Normal 40-54 [facility] Work Phone: Hemoglobin mass conc (Bld) 14.4 g/dL Normal 14.0-18.0 [facility] Work Phone: Lymphocytes/100 WBC (Bld) 23 % Normal 19-41 [facility] Work Phone: MCH Entitic mass (RBC) 30.6 pg Normal 27.0-32.0 [facility] Work Phone: MCHC mass conc (RBC) 34.2 g/dL Normal 32-36 Comp rehensive Internal Medicine Work Phone: MCV Entitic volume (RBC) 89.5 fL Normal 80-94 [facility] Work Phone: Monocytes/100 WBC (Bld) 5 % Normal 0-10 [facility] Work Phone: Neutrophils #/vol (Bld) 6.7 3/uL Normal 2.0-7.7 [facility] Work Phone: Platelets #/vol (Bld) 205 10*3/uL Normal 150-450 [facility] Work Phone: Platelets #/vol (Bld) SeeNote Normal [facility] Work Phone: Comment on above: Result: ADEQUATE RBC #/vol (Bld) 4.70 {M/mm3} Normal 4.6-6.2 Compreh ensive Internal Medicine Work Phone: WBC #/vol (Bld) 9.9 10*3/uL Normal 4.4-11.0 [facility] Internal Medicine Work Phone: CBCD,SMEAR DIFF 100 1 Normal [facility] Work Phone: CBCD,SMEAR DIFF SeeNote Normal [facility] Internal Medicine Work Phone: Comment on above: Result: NORM C+C CBCD,SMEAR DIFF 72 % Abnormal 47-70 [facility] Internal Medicine Work Phone: COMP METABOLICOrdered By: Zachariah stem Senior Mobile Developer on 01-24-2010 Albumin mass conc 3.5 g/dL Normal 3.4-5.0 [facility] Internal Medicine Work Phone: Albumin/Globulin mass ratio 0.9 {RATIO} Normal 0.9-2.4 [facility] Internal Medicine Work Phone: ALP enzyme act/vol 85 U/L Normal 50-136 [facility] Internal Medicine Work Phone: ALT enzyme act/vol 25 U/L Normal 12-78 [facility] Internal Medicine Work Phone: Anion gap molar conc 7 mmol/L Normal 5-15 [facility] Internal Medicine Work Phone: AST enzyme act/vol 16 U/L Normal 15-37 [facility] Internal Medicine Work Phone: Bilirubin mass conc 0.50 mg/dL Normal 0.00-1.00 [facility] Internal Medicine Work Phone: Calcium mass conc 8.4 mg/dL Abnormal 8.5-10.1 [facility] Internal Medicine Work Phone: Chloride molar conc 105 mmol/L Normal 98-107 [facility] Internal Medicine Work Phone: CO2 molar conc 28.0 mmol/L Normal 21.0-32.0 [facility] Internal Medicine Work Phone: Creatinine mass conc 1.0 mg/dL Normal 0.8-1.3 [facility] Internal Medicine Work Phone: GFR/1.73 sq M predicted among blacks MDRD vol rate/area (S/P/Bld) 99 mL/min/{1.73_m2} Normal Comprehe nsive Internal Medicine Work Phone: GFR/1.73 sq M.predicted MDRD vol rate/area 82 mL/min/{1.73_m2} Normal Comprehensiv e Internal Medicine Work Phone: Globulin mass conc (S) 3.7 g/dL Normal 2.7-4.2 [facility] Work Phone: Glucose mass conc 88 mg/dL Normal 70-110 Compre[facility] ensive Internal Medicine Work Phone: Potassium molar conc 4.0 mmol/L Normal 3.5-5.1 Comp rehensive Internal Medicine Work Phone: Protein mass conc 7.2 g/dL Normal 6.4-8.2 Compreh ensive Internal Medicine Work Phone: Sodium molar conc 140 mmol/L Normal 136-145 Compre[facility] ens[facility] Internal Medicine Work Phone: Urea nitrogen mass conc 16 mg/dL Normal 7-18 [facility] Work Phone: Urea nitrogen/Creatinine mass ratio 16.0 {RATIO} Normal 10-20 [facility] Work Phone: LIPIDOrdered By: Katie goncalves on 01-24-2010 Cholesterol in HDL mass conc 29 mg/dL Abnormal [facility] Work Phone: Comment on above: Reference RangeHDL < 40 mg/dL Low HDL CholesterolHDL >or= 60 mg/dL High HDL Cholesterol Cholesterol in LDL mass conc 73 mg/dL Normal 0-130 [facility] Work Phone: Cholesterol in VLDL mass conc 40 mg/dL Normal 5-40 [facility] Work Phone: Cholesterol mass conc 142 mg/dL Normal [facility] Work Phone: Comment on above: <200 mg/dL Desirable 200-240 mg/dL Borderline>240 mg/dL High Risk Triglyceride mass conc 199 mg/dL Normal [facility] Work Phone: Comment on above: Serum Triglycerides Reference IntervalNormal <150 mg/dLBorderline high 150 - 199 mg/dLHigh 200 - 499 mg/dLVery High > or = 500 mg/dL CBCD,SMEAR DIFFOrdered By: Kaylynn simontem Senior Mobile Developer on 10-24-2009 Eosinophils/100 WBC (Bld) 2 % Normal 0-5 [facility] Work Phone: Erythrocyte distribution width Ratio (RBC) 13.0 % Normal 11.6-14.6 [facility] Work Phone: Hematocrit Volume Fraction (Bld) 46.7 % Normal 40-54 [facility] Work Phone: Hemoglobin mass conc (Bld) 15.7 g/dL Normal 14.0-18.0 [facility] Work Phone: Lymphocytes/100 WBC (Bld) 15 % Abnormal 19-41 [facility] Work Phone: MCH Entitic mass (RBC) 30.2 pg Normal 27.0-32.0 [facility] Work Phone: MCHC mass conc (RBC) 33.7 g/dL Normal 32-36 Comp rehensive Internal Medicine Work Phone: MCV Entitic volume (RBC) 89.4 fL Normal 80-94 [facility] Work Phone: Monocytes/100 WBC (Bld) 3 % Normal 0-10 [facility] Work Phone: Neutrophils #/vol (Bld) 9.6 3/uL Abnormal 2.0-7.7 [facility] Work Phone: Platelets #/vol (Bld) 197 10*3/uL Normal 150-450 [facility] Work Phone: Platelets #/vol (Bld) SeeNote Normal [facility] Work Phone: Comment on above: Result: ADEQUATE RBC #/vol (Bld) 5.22 {M/mm3} Normal 4.6-6.2 Compre[facility] ensive Internal Medicine Work Phone: WBC #/vol (Bld) 12.3 10*3/uL Abnormal 4.4-11.0 Compre[facility] ens[facility] Internal Medicine Work Phone: CBCD,SMEAR DIFF 100 1 Normal Comprehen sive Internal Medicine Work Phone: CBCD,SMEAR DIFF SeeNote Normal [facility] Internal Medicine Work Phone: Comment on above: Result: NORM C+C CBCD,SMEAR DIFF 80 % Abnormal 47-70 [facility] Internal Medicine Work Phone: COMP METABOLICOrdered By: Zachariah stem Senior Mobile Developer on 10-24-2009 Albumin mass conc 4.2 g/dL Normal 3.4-5.0 [facility] Internal Medicine Work Phone: Albumin/Globulin mass ratio 1.2 {RATIO} Normal 0.9-2.4 [facility] Internal Medicine Work Phone: ALP enzyme act/vol 96 U/L Normal 50-136 [facility] Internal Medicine Work Phone: ALT enzyme act/vol 34 U/L Normal 12-78 [facility] Internal Medicine Work Phone: Anion gap molar conc 6 mmol/L Normal 5-15 [facility] Internal Medicine Work Phone: AST enzyme act/vol 16 U/L Normal 15-37 [facility] Internal Medicine Work Phone: Bilirubin mass conc 0.40 mg/dL Normal 0.00-1.00 [facility] Internal Medicine Work Phone: Calcium mass conc 8.9 mg/dL Normal 8.5-10.1 [facility] Internal Medicine Work Phone: Chloride molar conc 106 mmol/L Normal 98-107 [facility] Internal Medicine Work Phone: CO2 molar conc 28.0 mmol/L Normal 21.0-32.0 [facility] Internal Medicine Work Phone: Creatinine mass conc 1.2 mg/dL Normal 0.8-1.3 [facility] Internal Medicine Work Phone: GFR/1.73 sq M predicted among blacks MDRD vol rate/area (S/P/Bld) 81 mL/min/{1.73_m2} Normal [facility] Internal Medicine Work Phone: GFR/1.73 sq M.predicted MDRD vol rate/area 67 mL/min/{1.73_m2} Normal [facility] Internal Medicine Work Phone: Globulin mass conc (S) 3.4 g/dL Normal 2.7-4.2 [facility] Work Phone: Glucose mass conc 100 mg/dL Normal 70-110 Compre[facility] ensive Internal Medicine Work Phone: Potassium molar conc 4.4 mmol/L Normal 3.5-5.1 Comp [facility]hens[facility] Internal Medicine Work Phone: Protein mass conc 7.6 g/dL Normal 6.4-8.2 Com[facility] ens[facility] Internal Medicine Work Phone: Sodium molar conc 140 mmol/L Normal 136-145 Com[facility] ens[facility] Internal Medicine Work Phone: Urea nitrogen mass conc 23 mg/dL Abnormal 7-18 [facility] Work Phone: Urea nitrogen/Creatinine mass ratio 19.2 {RATIO} Normal 10-20 [facility] Work Phone: PSA, SCREENOrdered By: Domobiose Evino Senior Mobile Developer on 10-24-2009 Prostate specific Ag mass conc 1.5 ng/mL Normal 0.0-4.0 [facility] Work Phone: TSHOrdered By: System Storyvine r on 10-24-2009 Thyrotropin Qn 0.75 {uIU/mL} Normal 0.358-3.74 Compreh ensive Internal Medicine Work Phone: LIPIDOrdered By: System Jerilyn sacha on 09-27-2009 Cholesterol in HDL mass conc 33 mg/dL Abnormal [facility] Work Phone: Comment on above: Reference RangeHDL < 40 mg/dL Low HDL CholesterolHDL >or= 60 mg/dL High HDL Cholesterol Cholesterol in LDL mass conc 87 mg/dL Normal 0-130 [facility] Work Phone: Cholesterol in VLDL mass conc 34 mg/dL Normal 5-40 [facility] Work Phone: Cholesterol mass conc 154 mg/dL Normal [facility] Work Phone: Comment on above: <200 mg/dL Desirable 200-240 mg/dL Borderline>240 mg/dL High Risk Triglyceride mass conc 172 mg/dL Normal [facility] Work Phone: Comment on above: Serum Triglycerides Reference IntervalNormal <150 mg/dLBorderline high 150 - 199 mg/dLHigh 200 - 499 mg/dLVery High > or = 500 mg/dL COMP METABOLICOrdered By: Zachariah stem Senior Mobile Developer on 06-21-2009 Albumin mass conc 3.8 g/dL Normal 3.4-5.0 Compreh ensive Internal Medicine Work Phone: Albumin/Globulin mass ratio 1.2 {RATIO} Normal 0.9-2.4 [facility] Internal Medicine Work Phone: ALP enzyme act/vol 102 U/L Normal 50-[address] [facility] [facility] Internal Medicine Work Phone: ALT enzyme act/vol 43 U/L Normal 12-78 [facility] Work Phone: Comment on above: Please Note: Yury ed Reference Range effective 09 Anion gap molar conc 9 mmol/L Normal 5-[address] [facility] Work [facility]: AST enzyme act/vol 20 U/L Normal 15-[address] [facility] Internal Medicine Work Phone: Bilirubin mass conc 0.20 mg/dL Normal 0.00-1.00 Compr [facility] Internal Medicine Work Phone: Calcium mass conc 8.7 mg/dL Normal 8.5-10.1 [facility] Work Phone: Chloride molar conc 106 mmol/L Normal 98-107 Compr ensive Internal Medicine Work Phone: CO2 molar conc 28.0 mmol/L Normal 21.0-32.0 Comprehen [facility] Internal Medicine Work Phone: Creatinine mass conc 1.0 mg/dL Normal 0.8-1.3 [facility] Work Phone: GFR/1.73 sq M predicted among blacks MDRD vol rate/area (S/P/Bld) 99 mL/min/{1.73_m2} Normal Comprehe [facility] Internal Medicine Work Phone: GFR/1.73 sq M.predicted MDRD vol rate/area 82 mL/min/{1.73_m2} Normal Comprehens[facility] e Internal Medicine Work Phone: Globulin mass conc (S) 3.3 g/dL Normal 2.7-4.2 [facility] Work Phone: Glucose mass conc 92 mg/dL Normal 70-110 Compre[facility] ens[facility] Internal Medicine Work Phone: Potassium molar conc 4.3 mmol/L Normal 3.5-5.1 [facility] Internal Medicine Work Phone: Protein mass conc 7.1 g/dL Normal 6.4-8.2 [facility]pre[facility] Internal Medicine Work Phone: Sodium molar conc 143 mmol/L Normal 136-145 Compre[facility] Internal Medicine Work Phone: Urea nitrogen mass conc 14 mg/dL Normal 7-18 [facility] Work Phone: Urea nitrogen/Creatinine mass ratio 14.0 {RATIO} Normal 10-20 [facility] Work Phone: D BILIOrdered By: System Man ager on 06-21-2009 Bilirubin.direct mass conc 0.07 mg/dL Normal 0.00-0.30 [facility] Work Phone: LIPIDOrdered By: System Jerilyn sacha on 06-21-2009 Cholesterol in HDL mass conc 34 mg/dL Abnormal [facility] Work Phone: Comment on above: Reference Range HDL <40 mg/dL Low HDL Cholesterol HDL >or= 60 mg/dL High HDL Cholesterol Cholesterol in LDL mass conc 143 mg/dL Abnormal 0-130 [facility] Work Phone: Cholesterol in VLDL mass conc 59 mg/dL Abnormal 5-40 [facility] Work Phone: Cholesterol mass conc 236 mg/dL Abnormal [facility] Work Phone: Comment on above: <200 mg/dL Desirable 200-240 mg/dL Borderline >240 mg/dL High Risk Triglyceride mass conc 294 mg/dL Abnormal [facility] Work Phone: Comment on above: Serum Triglycerides Reference Interval Normal <150 mg/dL Borderline high 150 - 199 mg/dL High 200 - 499 mg/dL Very High > or = 500 mg/dL LIPIDOrdered By: Katie Jerilyn sacha on 06-22-2008 Cholesterol in HDL mass conc 36 mg/dL Normal [facility] Work Phone: Comment on above: Reference Range HDL <40 mg/dL Low HDL Cholesterol HDL >or= 60 mg/dL High HDL Cholesterol Cholesterol in LDL mass conc 103 mg/dL Normal 0-130 [facility] Work Phone: Cholesterol in VLDL mass conc 51 mg/dL Abnormal 5-40 [facility] Work Phone: Cholesterol mass conc 190 mg/dL Normal [facility] Work Phone: Comment on above: <200 mg/dL Desirable 200-240 mg/dL Borderline >240 mg/dL High Risk Triglyceride mass conc 257 mg/dL Abnormal [facility] Work Phone: Comment on above: Serum Triglycerides Reference Interval Normal <150 mg/dL Borderline high 150 - 199 mg/dL High 200 - 499 mg/dL Very High > or = 500 mg/dL LIVEROrdered By: Surfingbird on 06-22-2008 Albumin mass conc 3.9 g/dL Normal 3.4-5.0 Compreh ensive Internal Medicine Work Phone: ALP enzyme act/vol 91 U/L Normal 50-136 [facility] Work Phone: ALT enzyme act/vol 63 U/L Normal 30-65 [facility] Internal Medicine Work Phone: AST enzyme act/vol 28 U/L Normal 15-37 [facility] Internal Medicine Work Phone: Bilirubin mass conc 0.32 mg/dL Normal 0.00-1.00 Compr [facility] Internal Medicine Work Phone: Bilirubin.direct mass conc 0.07 mg/dL Normal 0.00-0.30 [facility] Work Phone: Protein mass conc 7.0 g/dL Normal 6.4-8.2 Compreh ensive Internal Medicine Work Phone: LIVEROrdered By: System Jerilyn goncalves on 07-09-2006 Albumin mass conc 4.1 g/dL Normal 3.4-5.0 Compreh [facility] Internal Medicine Work Phone: ALP enzyme act/vol 99 U/L Normal 50-136 [facility] Internal Medicine Work Phone: ALT enzyme act/vol 32 [iU]/L Normal 30-65 [facility] Internal Medicine Work Phone: AST enzyme act/vol 14 U/L Abnormal 15-37 [facility] Internal Medicine Work Phone: Bilirubin mass conc 0.57 mg/dL Normal 0.00-1.00 [facility] Internal Medicine Work Phone: Bilirubin.direct mass conc 0.09 mg/dL Normal 0.00-0.30 [facility] Internal Medicine Work Phone: Protein mass conc 7.1 g/dL Normal 6.4-8.2 Compreh [facility] Internal Medicine Work Phone: MGOrdered By: Switchboard Operator on 07-09-2006 Magnesium mass conc 2.0 mg/dL Normal 1.5-2.2 [facility] Internal Medicine Work Phone: PFLIPOrdered By: System PhoneGuard on 07-09-2006 Cholesterol in HDL mass conc 29 mg/dL Abnormal [facility] [facility] Work Phone: Comment on above: Reference Range HDL <40 mg/dL Low HDL Cholesterol HDL >or= 60 mg/dL High HDL Cholesterol Cholesterol in LDL mass conc 169 mg/dL Abnormal 0-130 [facility] Work Phone: Cholesterol in VLDL mass conc 24 mg/dL Normal 5-40 [facility] Work Phone: Cholesterol mass conc 222 mg/dL Abnormal [facility] Work Phone: Comment on above: <200 mg/dL Desirable 200-240 mg/dL Borderline >240 mg/dL High Risk Triglyceride mass conc 121 mg/dL Normal [facility] Work Phone: Comment on above: Serum Triglycerides Reference Interval Normal <150 mg/dL Borderline high 150 - 199 mg/dL High 200 - 499 mg/dL Very High > or = 500 mg/dL Vital Signs Date Time Vital Sign Value Performing Clinician Facility 03-16-2024 08:53-0400 Body height 177.8 cm Christine Tesfaye MD Work Phone: [facility] 03-16-2024 08:53-0400 Body mass index (BMI) [Ratio] 24.16 kg/m2 Christine Tesfaye MD Work Phone: [facility] 03-16-2024 08:53-0400 Body weight 76.39 kg Christine Tesfaye MD Work Phone: [facility] 03-16-2024 08:53-0400 Diastolic blood pressure 89 mm[Hg] Christine Tesfaye MD Work Phone: [facility] 03-16-2024 08:53-0400 Heart rate 96 /min Christine Tesfaye MD Work Phone: [facility] 03-16-2024 08:53-0400 Systolic blood pressure 143 mm[Hg] Christine Tesfaye MD Work Phone: [facility] 12-08-2023 10:07-0400 Body height 177.8 cm Christine Tesfaye MD Work Phone: [facility] 12-08-2023 10:07-0400 Body mass index (BMI) [Ratio] 24.42 kg/m2 Christine Tesfaye MD Work Phone: [facility] 12-08-2023 10:07-0400 Body weight 77.2 kg Christine Tesfaye MD Work Phone: [facility] 12-08-2023 10:07-0400 Diastolic blood pressure 91 mm[Hg] Christine Tesfaye MD Work Phone: [facility] 12-08-2023 10:07-0400 Heart rate 62 /min Christine Tesfaye MD Work Phone: [facility] 12-08-2023 10:07-0400 Systolic blood pressure 158 mm[Hg] Christine Tesfaye MD Work Phone: [facility] 01-31-2023 08:25-0400 Body height 180.34 cm [facility]; [facility] Work Phone: 01-31-2023 08:25-0400 Body mass index (BMI) [Ratio] 23.45 kg/m2 [facility]; [facility] Work Phone: 01-31-2023 08:25-0400 Body surface area Derived from formula 1.96 m2 [facility]; [facility] Work Phone: 01-31-2023 08:25-0400 Body temperature 97.5 [degF] [facility]; [facility] Work Phone: 01-31-2023 08:25-0400 Body weight 76.26 kg [facility]; [facility] Work Phone: 01-31-2023 08:25-0400 Diastolic blood pressure 70 mm[Hg] [facility]; [facility] Work Phone: 01-31-2023 08:25-0400 Heart rate 72 /min [facility]; [facility] Work Phone: 01-31-2023 08:25-0400 Respiratory rate 16 /min [facility]; [facility] Work Phone: 01-31-2023 08:25-0400 SaO2% (BldA) [Mass fraction] 99 % [facility]; [facility] Work Phone: 01-31-2023 08:25-0400 Systolic blood pressure 124 mm[Hg] [facility]; [facility] Work Phone: 01-20-2023 12:00-0400 Body height 180.34 cm Irma Florez MA [facility]; [facility] Work Phone: 01-20-2023 12:00-0400 Body mass index (BMI) [Ratio] 23.43 kg/m2 Irma Thakkarnathan WALDRON [facility]; [facility] Work Phone: 01-20-2023 12:00-0400 Body surface area Derived from formula 1.96 m2 Irma Garcian VANITA [facility]; [facility] Work Phone: 01-20-2023 12:00-0400 Body weight 76.2 kg Irma Thakkarinn VANITA [facility]; [facility] Work Phone: 01-06-2023 08:53-0400 Body height 180.34 cm Irma Thakkarnathan WALDRON [facility]; [facility] Work Phone: 01-06-2023 08:53-0400 Body mass index (BMI) [Ratio] 23.43 kg/m2 Irma Garcian VANITA [facility]; [facility] Work Phone: 01-06-2023 08:53-0400 Body surface area Derived from formula 1.96 m2 Irma Garcian VANITA [facility]; [facility] Work Phone: 01-06-2023 08:53-0400 Body weight 76.2 kg Irma Garcian VANITA [facility]; [facility] Work Phone: 12-31-2022 07:58-0400 Body height 177.8 cm Christine Tesfaye MD Work Phone: [employer] 12-31-2022 07:58-0400 Body mass index (BMI) [Ratio] 24.91 kg/m2 Christine Tesfaye MD Work Phone: [employer] 12-31-2022 07:58-0400 Body weight 78.74 kg Christine Tesfaye MD Work Phone: [employer] 12-31-2022 07:58-0400 Diastolic blood pressure 84 mm[Hg] Christine Tesfaye MD Work Phone: [employer] 12-31-2022 07:58-0400 Heart rate 88 /min Christine Tesfaye MD Work Phone: [employer] 12-31-2022 07:58-0400 Systolic blood pressure 158 mm[Hg] Christine Tesfaye MD Work Phone: [facility] [employer] 12-23-2022 11:09-0400 Body height 180.34 cm Marybeth Martha DO Work Phone: [facility]; [facility] Work Phone: 12-23-2022 11:09-0400 Body mass index (BMI) [Ratio] 23.43 kg/m2 Marybeth Martha DO Work Phone: [facility]; [facility] Work Phone: 12-23-2022 11:09-0400 Body surface area Derived from formula 1.96 m2 Mayrbeth Martha DO Work Phone: [facility]; [facility] Work Phone: 12-23-2022 11:09-0400 Body weight 76.2 kg Marybeth Martha DO Work Phone: [facility]; [facility] Work Phone: 12-23-2022 11:09-0400 Diastolic blood pressure 79 mm[Hg] Marybeth Martha DO Work Phone: [facility]; [facility] Work Phone: 12-23-2022 11:09-0400 Heart rate 76 /min Marybeth Martha DO Work Phone: [facility]; [facility] Work Phone: 12-23-2022 11:09-0400 SaO2% (BldA) [Mass fraction] 97 % Marybeth Martha DO Work Phone: [facility]; [facility] Work Phone: 12-23-2022 11:09-0400 Systolic blood pressure 138 mm[Hg] Marybeth Martha DO Work Phone: [facility]; [facility] Work Phone: 08-20-2022 08:52-0500 [facility] Work Phone: 08-20-2022 08:52-0500 Body mass index (BMI) [Ratio] 23.43 kg/m2 [facility]; [facility] Work Phone: 08-20-2022 08:52-0500 Body surface area [facility]ived from formula 1.96 m[facility] Work Phone: 08-20-2022 08:52-0500 Body temperature 97.8 [degF] [facility]; [facility] Work Phone: 08-20-2022 08:52-0500 Body weight 76.2 kg [facility]; [facility] Work Phone: 08-20-2022 08:52-0500 Diastolic blood pressure 84 mm[Hg] [facility]; [facility] Work Phone: 08-20-2022 08:52-0500 Heart rate 86 /min [facility]; [facility] Work Phone: 08-20-2022 08:52-0500 Respiratory rate 16 /min [facility]; [facility] Work Phone: 08-20-2022 08:52-0500 SaO2% (BldA) [Mass fraction] 95 % [facility]; [facility] Work Phone: 08-20-2022 08:52-0500 Systolic blood pressure 132 mm[Hg[facility]; [facility] Work Phone: 07-01-2022 10:48-0500 Body temperature 98.2 [degF] Dr. Marybeth Thomas Work Phone: [facility] 07-01-2022 10:48-0500 Diastolic blood pressure 69 mm[Hg] Dr. Marybeth Thomas Work Phone: [facility] 07-01-2022 10:48-0500 Heart rate 96 /min Dr. Marybeth Thomas Work Phone: [facility] 07-01-2022 10:48-0500 Respiratory rate 16 /min Dr. Marybeth Thomas Work Phone: [facility] 07-01-2022 10:48-0500 SaO2% (BldA) [Mass fraction] 98 % Dr. Marybeth Thomas Work Phone: [facility] 07-01-2022 10:48-0500 Systolic blood pressure 130 mm[Hg] Dr. Marybeth Thomas Work Phone: [facility] 07-01-2022 03:20-0500 Inhaled oxygen flow rate 2 L/min Dr. Marybeth Thomas Work Phone: [facility] 06-30-2022 14:19-0500 Body height 177.[address] Marybeth Thomas Work Phone: [facility] 06-30-2022 14:19-0500 Body mass index (BMI) [Ratio] 25.4 kg/m2 Dr. Marybeth Thomas Work Phone: [facility] 06-30-2022 14:19-0500 Body weight 80.[address] Marybeth Thomas Work Phone: [facility] 01-28-2022 14:11-0400 Body height 180.34 cm Leann Aquino LPN [facility]; [facility] Work Phone: 01-28-2022 14:11-0400 Body mass index (BMI) [Ratio] 24.04 kg/m2 Le[facility] Brown [facility]; [facility] Work Phone: 01-28-2022 14:11-0400 Body surface area Derived from formula 1.98 m2 Leann Aquino LPN [facility]; [facility] Work Phone: 01-28-2022 14:11-0400 Body weight 78.19 kg Leann Kenia LPN [facility]; [facility] Work Phone: 01-28-2022 14:11-0400 Diastolic blood pressure 82 mm[Hg] Leann Aquino LPN [facility]; [facility] Work Phone: 01-28-2022 14:11-0400 Heart rate 77 /min Leann Aquino LPN [facility]; [facility] Work Phone: 01-28-2022 14:11-0400 Respiratory rate 16 /min Leann Kenia LPN [facility]; [facility] Work Phone: 01-28-2022 14:11-0400 SaO2% (BldA) [Mass fraction] 99 % Leann Kenia LPN [facility]; [facility] Work Phone: 01-28-2022 14:11-0400 Systolic blood pressure 140 mm[Hg] Leann Aquino LPN [facility]; [facility] Work Phone: 10-21-2021 07:51-0400 Body height 180.34 cm Leann Aquino LPN [facility]; [facility] Work Phone: 10-21-2021 07:51-0400 Body mass index (BMI) [Ratio] 24.18 kg/m2 Leann Aquino LPN [facility]; [facility] Work Phone: 10-21-2021 07:51-0400 Body surface area Derived from formula 1.98 m2 Leann Aquino LPN [facility]; [facility] Work Phone: 10-21-2021 07:51-0400 Body weight 78.64 kg Leann Aquino LPN [facility]; [facility] Work Phone: 10-21-2021 07:51-0400 Diastolic blood pressure 78 mm[Hg] Leann Aquino LPN [facility]; [facility] Work Phone: 10-21-2021 07:51-0400 Heart rate 96 /min Leannadolfo Aquino JOSE [facility]; [facility] Work Phone: 10-21-2021 07:51-0400 Respiratory rate 16 /min Leann Aquino STITCH SEPARATOR [facility]; [facility] Work Phone: 10-21-2021 07:51-0400 SaO2% (BldA) [Mass fraction] 95 % Leann Aquino JOSE [facility]; [facility] Work Phone: 10-21-2021 07:51-0400 Systolic blood pressure 138 mm[Hg] Leann Aquino JOSE [facility]; [facility] Work Phone: 06-01-2021 08:05-0500 Body height 180.34 cm Breana Herndonlavinia ESCOTON [facility]; [facility] Work Phone: 06-01-2021 08:05-0500 Body mass index (BMI) [Ratio] 23.43 kg/m2 Breana Slarb STITCH SEPARATOR [facility]; [facility] Work Phone: 06-01-2021 08:05-0500 Body surface area Derived from formula 1.96 m2 Breana Slarb STITCH SEPARATOR [facility]; [facility] Work Phone: 06-01-2021 08:05-0500 Body temperature 97.8 [degF] Breana Slarb STITCH SEPARATOR [facility]; [facility] Work Phone: 06-01-2021 08:05-0500 Body weight 76.2 kg Breana Slarb STITCH SEPARATOR [facility]; [facility] Work Phone: 06-01-2021 08:05-0500 Diastolic blood pressure 82 mm[Hg] Breana Slarb STITCH SEPARATOR [facility]; [facility] Work Phone: 06-01-2021 08:05-0500 Heart rate 97 /min Breana Slarb STITCH SEPARATOR [facility]; [facility] Work Phone: 06-01-2021 08:05-0500 Respiratory rate 16 /min Breana Slarb STITCH SEPARATOR [facility]; [facility] Work Phone: 06-01-2021 08:05-0500 SaO2% (BldA) [Mass fraction] 95 % Breana Herndonlavinia [facility]; [facility] Work Phone: 06-01-2021 08:05-0500 Systolic blood pressure 148 mm[Hg] Breana Herndonlavinia [facility]; [facility] Work Phone: 04-06-2021 09:38-0400 Body height 180.34 cm Stcay Jensen [facility]; [facility] Work Phone: 04-06-2021 09:38-0400 Body mass index (BMI) [Ratio] 23.43 kg/m2 Stacy Jensen [facility]; [facility] Work Phone: 04-06-2021 09:38-0400 Body surface area Derived from formula 1.96 m2 Stacy Jensen [facility]; [facility] Work Phone: 04-06-2021 09:38-0400 Body temperature 97.3 [degF] Stacy Jensen [facility]; [facility] Work Phone: 04-06-2021 09:38-0400 Body weight 76.2 kg Stacy Jensen [facility]; [facility] Work Phone: 04-06-2021 09:38-0400 Diastolic blood pressure 82 mm[Hg] Stacy Jensen [facility]; [facility] Work Phone: 04-06-2021 09:38-0400 Heart rate 93 /min Stacy Jensen [facility]; [facility] Work Phone: 04-06-2021 09:38-0400 Respiratory rate 18 /min Stacy Jensen [facility]; [facility] Work Phone: 04-06-2021 09:38-0400 SaO2% (BldA) [Mass fraction] 95 % Stacy Boydius [facility]; [facility] Work Phone: 04-06-2021 09:38-0400 Systolic blood pressure 120 mm[Hg] Stacy Jensen CMA [facility]; [facility] Work Phone: 01-19-2021 08:39-0400 Body height 180.34 cm Stacy Jensen CMA [facility]; [facility] Work Phone: 01-19-2021 08:39-0400 Body mass index (BMI) [Ratio] 25.52 kg/m2 Stacy Jensen CMA [facility]; [facility] Work Phone: 01-19-2021 08:39-0400 Body surface area Derived from formula 2.03 m2 Stacy Jensen [facility]; [facility] Work Phone: 01-19-2021 08:39-0400 Body temperature 97.3 [degF] Stacy Jensen CMA [facility]; [facility] Work Phone: Comment on above: Method: Infrared 01-19-2021 08:39-0400 Body weight 83.01 kg Stacy Jensen [employer]UBE WRAPPER [facility]; [facility] Work Phone: 01-19-2021 08:39-0400 Diastolic blood pressure 68 mm[Hg] Stacy Jensen [facility]; [facility] Work Phone: Comment on above: Patient Position: Sitting; Cuff Location : Left Arm; Cuff Size: Standard 01-19-2021 08:39-0400 Heart rate 96 /min Stacy Jensen [facility]; [facility] Work Phone: Comment on above: Pattern: Regular 01-19-2021 08:39-0400 Respiratory rate 20 /min Stacy Jensen TUBE WRAPPER [facility]; [facility] Work Phone: Comment on above: Pattern: Wheezing 01-19-2021 08:39-0400 SaO2% (BldA) [Mass fraction] 94 % Stacy Jensen [facility]; [facility] Work Phone: Comment on above: Room air 01-19-2021 08:39-0400 Systolic blood pressure 118 mm[Hg] Stacy Jensen [facility]; [facility] Work Phone: Comment on above: Patient Position: Sitting; Cuff Location : Left Arm; Cuff Size: Standard 12-01-2020 08:37-0400 Body height 180.34 cm [facility]; [facility] Work Phone: 12-01-2020 08:37-0400 Body mass index (BMI) [Ratio] 25.52 kg/m2 [facility]; [facility] Work Phone: 12-01-2020 08:37-0400 Body surface area Derived from formula 2.03 m2 [facility]; [facility] Work Phone: 12-01-2020 08:37-0400 Body temperature 97.2 [degF] [facility]; [facility] Work Phone: Comment on above: Method: Thermal Scan 12-01-2020 08:37-0400 Body weight 83.01 kg [facility]; [facility] Work Phone: 12-01-2020 08:37-0400 Diastolic blood pressure 72 mm[Hg] [facility]; [facility] Work Phone: Comment on above: Patient Position: Sitting; Cuff Location : Left Arm; Cuff Size: Standard 12-01-2020 08:37-0400 Heart rate 82 /min [facility]; [facility] Work Phone: Comment on above: Pattern: Regular 12-01-2020 08:37-0400 Respiratory rate 16 /min [facility]; [facility] Work Phone: Comment on above: Pattern: Unlabored 12-01-2020 08:37-0400 SaO2% (BldA) [Mass fraction] 97 % [facility]; [facility] Work Phone: Comment on above: Room air 12-01-2020 08:37-0400 Systolic blood pressure 124 mm[Hg] Amber Cross STITCH SEPARATOR [facility]; [facility] Work Phone: Comment on above: Patient Position: Sitting; Cuff Location : Left Arm; Cuff Size: Standard 09-01-2020 08:06-0500 BMI (Body Mass Index) 24.55 kg/m2 Marybeth Martha DO Work Phone: [facility]; [facility] Work Phone: Comment on above: IMCOMPLETE VITALS DUE TO VIRTAUL/COVID V ISIT ANDPT REPPORTS THEM 09-01-2020 08:06-0500 Body weight 79.83 kg Marybeth Martha DO Work Phone: [facility]; [facility] Work Phone: Comment on above: IMCOMPLETE VITALS DUE TO VIRTAUL/COVID V ISIT ANDPT REPPORTS THEM 09-01-2020 08:06-0500 BP Diastolic 82 mm[Hg] Marybeth Martha DO Work Phone: [facility]; [facility] Work Phone: Comment on above: Patient Position: Sitting IMCOMPLETE VITALS DU E TO VIRTAUL/COVID VISIT ANDPT REPPORTS THEM 09-01-2020 08:06-0500 BP Systolic 147 mm[Hg] Marybeth Martha DO Work Phone: [facility]; [facility] Work Phone: Comment on above: Patient Position: Sitting IMCOMPLETE VITALS DU E TO VIRTAUL/COVID VISIT ANDPT REPPORTS THEM 09-01-2020 08:06-0500 BSA (Body Surface Area) 2 m2 Marybeth Martha DO Work Phone: [facility]; [facility] Work Phone: Comment on above: IMCOMPLETE VITALS DUE TO VIRTAUL/COVID V ISIT ANDPT REPPORTS THEM 09-01-2020 08:06-0500 Height 180.34 cm Marybeth Martha DO Work Phone: [facility]; [facility] Work Phone: Comment on above: IMCOMPLETE VITALS DUE TO VIRTAUL/COVID V ISIT ANDPT REPPORTS THEM 09-01-2020 08:06-0500 Pulse (Heart Rate) 88 /min Marybeth Thomas DO Work Phone: [facility]; [facility] Work Phone: Comment on above: Pattern: Regular IMCOMPLETE VITALS DU E TO VIRTAUL/COVID VISIT ANDPT REPPORTS THEM 09-01-2020 08:06-0500 Pulse Oximetry 94 % Marybeth Thomas [facility]; [facility] Work Phone: Comment on above: Room air IMCOMPLETE VITALS DU E TO VIRTAUL/COVID VISIT ANDPT REPPORTS THEM 09-01-2020 08:06-0500 SaO2% (BldA) [Mass fraction] 94 % Marybeth Thomas DO Work Phone: [facility]; [facility] Work Phone: Comment on above: Room air IMCOMPLETE VITALS DU E TO VIRTAUL/COVID VISIT ANDPT REPPORTS THEM 04-30-2020 08:09-0400 BMI (Body Mass Index) 24.55 kg/m2 Stacy Jensen [facility] Work Phone: 04-30-2020 08:09-0400 Body Temperature 97.2 [degF] Stacy Jensen [facility] Work Phone: Comment on above: Method: Infrared 04-30-2020 08:09-0400 Body weight 79.83 kg Stacy Jensen [facility] Work Phone: 04-30-2020 08:09-0400 BP Diastolic 78 mm[Hg] Stacy Jensen [facility] Work Phone: Comment on above: Patient Position: Sitting; Cuff Location : Left Arm; Cuff Size: Standard 04-30-2020 08:09-0400 BP Systolic 138 mm[Hg] Stacy Jensen [facility] Work Phone: Comment on above: Patient Position: Sitting; Cuff Location : Left Arm; Cuff Size: Standard 04-30-2020 08:09-0400 BSA (Body Surface Area) 2 m2 Stacy Jensen [facility] Work Phone: 04-30-2020 08:09-0400 Height 180.34 cm Stacy Jensen [facility] Work Phone: 04-30-2020 08:09-0400 Pulse (Heart Rate) 88 /min Stacy Jensen [facility] Work Phone: Comment on above: Pattern: Regular 04-30-2020 08:09-0400 Pulse Oximetry 96 % Marybeth Thomas [facility] Work Phone: Comment on above: Room air 04-30-2020 08:09-0400 Respiratory Rate 18 /min Stacy Jensen [facility] Work Phone: Comment on above: Pattern: Unlabored 04-30-2020 08:09-0400 SaO2% (BldA) [Mass fraction] 96 % Stacy Jensen [facility]; [facility] Work Phone: Comment on above: Room air 01-28-2020 08:58-0400 BMI (Body Mass Index) 24.69 kg/m2 Stacy Jensen [facility] Work Phone: 01-28-2020 08:58-0400 Body Temperature 97.3 [degF] Stacy Jensen [facility] Work Phone: Comment on above: Method: Infrared 01-28-2020 08:58-0400 Body weight 80.29 kg Stacy Jensen [facility] Work Phone: 01-28-2020 08:58-0400 BP Diastolic 84 mm[Hg] Stacy Jensen [facility] Work Phone: Comment on above: Patient Position: Sitting; Cuff Location : Left Arm; Cuff Size: Standard 01-28-2020 08:58-0400 BP Systolic 132 mm[Hg] Stacy Jensen [facility] Work Phone: Comment on above: Patient Position: Sitting; Cuff Location : Left Arm; Cuff Size: Standard 01-28-2020 08:58-0400 BSA (Body Surface Area) 2 m2 Stacy Jensen [facility] Work Phone: 01-28-2020 08:58-0400 Height 180.34 cm Stacy Jensen [facility] Work Phone: 01-28-2020 08:58-0400 Pulse (Heart Rate) 84 /min Stacy Jensen [facility] Internal Medicine Work Phone: Comment on above: Pattern: Regular 01-28-2020 08:58-0400 Pulse Oximetry 96 % Marybeth Thomas [facility] Internal Medicine Work Phone: Comment on above: Room air 01-28-2020 08:58-0400 Respiratory Rate 18 /min Stacy Jensen [facility] Internal Medicine Work Phone: Comment on above: Pattern: Unlabored 01-28-2020 08:58-0400 SaO2% (BldA) [Mass fraction] 96 % Stacy Jensen [facility]; [facility] Work Phone: Comment on above: Room air 01-09-2020 12:13-0400 BMI (Body Mass Index) 24.69 kg/m2 Stacy Jensen [facility] Internal Medicine Work Phone: Comment on above: no vs taken as this is phone encounter d ue to covid 01-09-2020 12:13-0400 Body weight 80.29 kg Stacy Jensen [facility] Work Phone: Comment on above: no vs taken as this is phone encounter d ue to covid 01-09-2020 12:13-0400 BSA (Body Surface Area) 2 m2 Stacy Jensen [facility] Internal Medicine Work Phone: Comment on above: no vs taken as this is phone encounter d ue to covid 01-09-2020 12:13-0400 Height 180.34 cm Stacy Jensen [facility] Internal Medicine Work Phone: Comment on above: no vs taken as this is phone encounter d ue to covid 12-27-2019 07:21-0400 BMI (Body Mass Index) 24.69 kg/m2 Marilynn Wallace RN [facility] Internal Medicine Work Phone: 12-27-2019 07:21-0400 Body weight 80.29 kg Marilynn Wallace RN [facility] Internal Medicine Work Phone: 12-27-2019 07:21-0400 BP Diastolic 74 mm[Hg] Marilynn Wallace RN [facility] Internal Medicine Work Phone: Comment on above: Patient Position: Sitting; Cuff Location : Left Arm; Cuff Size: Standard 12-27-2019 07:21-0400 BP Systolic 132 mm[Hg] Marilynn Wallace RN [facility] Work Phone: Comment on above: Patient Position: Sitting; Cuff Location : Left Arm; Cuff Size: Standard 12-27-2019 07:21-0400 BSA (Body Surface Area) 2 m2 Marilynn Wallace RN [facility] Internal Medicine Work Phone: 12-27-2019 07:21-0400 Height 180.34 cm Marilynn Wallace RN [facility] Work Phone: 12-27-2019 07:21-0400 Pulse (Heart Rate) 84 /min Marilynn Wallace RN [facility] Work Phone: Comment on above: Pattern: Regular 12-27-2019 07:21-0400 Respiratory Rate 16 /min Marilynn Wallace RN [facility] Internal Medicine Work Phone: Comment on above: Pattern: Unlabored 08-02-2019 07:12-0500 BMI (Body Mass Index) 23.29 kg/m2 Stacy Jensen [facility] Medicine Work Phone: 08-02-2019 07:12-0500 Body Temperature 97.1 [degF] Stacy Jensen [facility] Medicine Work Phone: Comment on above: Method: Temporal 08-02-2019 07:12-0500 Body weight 75.75 kg Stacy Jensen [facility] Work Phone: 08-02-2019 07:12-0500 BP Diastolic 82 mm[Hg] Stacy Jensen [facility] Medicine Work Phone: Comment on above: Patient Position: Sitting; Cuff Location : Left Arm; Cuff Size: Standard 08-02-2019 07:12-0500 BP Systolic 123 mm[Hg] Stacy Jensen [facility] Work Phone: Comment on above: Patient Position: Sitting; Cuff Location : Left Arm; Cuff Size: Standard 08-02-2019 07:12-0500 BSA (Body Surface Area) 1.95 m2 Stacy Jensen [facility] Work Phone: 08-02-2019 07:12-0500 Height 180.34 cm Stacy Jensen [facility] Work Phone: 08-02-2019 07:12-0500 Pulse (Heart Rate) 99 /min Stacy Jensen [facility] Work Phone: Comment on above: Pattern: Regular 08-02-2019 07:12-0500 Pulse Oximetry 96 % Marybeth Thomas [facility] Internal Medicine Work Phone: Comment on above: Room air 08-02-2019 07:12-0500 Respiratory Rate 16 /min Stacy Jensen [facility] Work Phone: Comment on above: Pattern: Unlabored 08-02-2019 07:12-0500 SaO2% (BldA) [Mass fraction] 96 % Stacy Jensen [facility]; [facility] Work Phone: Comment on above: Room air 03-29-2019 06:43-0400 BMI (Body Mass Index) 23.29 kg/m2 [employer] [facility] Internal Medicine Work Phone: 03-29-2019 06:43-0400 BMI (Body Mass Index) 23.06 kg/m2 Marybeth Thomas [facility] Internal Medicine Work Phone: 03-29-2019 06:43-0400 Body weight 75.75 kg Yazmin [employer] [facility] Internal Medicine Work Phone: 03-29-2019 06:43-0400 Body weight 75.01 kg Marybeth Thomas [facility] Internal Medicine Work Phone: 03-29-2019 06:43-0400 BP Diastolic 70 mm[Hg] [employer] [facility] Internal Medicine Work Phone: Comment on above: Patient Position: Sitting; Cuff Location : Left Arm; Cuff Size: Standard 03-29-2019 06:43-0400 BP Systolic 130 mm[Hg] Yazmin [employer] [facility] Internal Medicine Work Phone: Comment on above: Patient Position: Sitting; Cuff Location : Left Arm; Cuff Size: Standard 03-29-2019 06:43-0400 BSA (Body Surface Area) 1.95 m2 [employer] [facility] Internal Medicine Work Phone: 03-29-2019 06:43-0400 Height 180.34 cm [employer] [facility] Medicine Work Phone: 03-29-2019 06:43-0400 Pulse (Heart Rate) 90 /min [employer] [facility] Internal Medicine Work Phone: Comment on above: Pattern: Regular 03-29-2019 06:43-0400 Pulse Oximetry 99 % Marybeth Thomas [facility] Internal Medicine Work Phone: Comment on above: Room air 03-29-2019 06:43-0400 Respiratory Rate 18 /min [employer] [facility] Internal Medicine Work Phone: Comment on above: Pattern: Unlabored 03-29-2019 06:43-0400 SaO2% (BldA) [Mass fraction] 99 % [employer] [facility]; [facility] Work Phone: Comment on above: Room air 02-02-2019 07:03-0400 BMI (Body Mass Index) 23.06 kg/m2 Pilar Molina RN [facility] Work Phone: 02-02-2019 07:03-0400 Body weight 75.01 kg Pilar Molina RN [facility] Work Phone: 02-02-2019 07:03-0400 BP Diastolic 80 mm[Hg] Pilar Molina RN [facility] Work Phone: Comment on above: Patient Position: Sitting; Cuff Location : Left Arm; Cuff Size: Large 02-02-2019 07:03-0400 BP Systolic 142 mm[Hg] Pilar Molina RN [facility] Work Phone: Comment on above: Patient Position: Sitting; Cuff Location : Left Arm; Cuff Size: Large 02-02-2019 07:03-0400 BSA (Body Surface Area) 1.95 m2 Pilar Molina RN [facility] Work Phone: 02-02-2019 07:03-0400 Height 180.34 cm Pilar Molina RN [facility] Work Phone: 02-02-2019 07:03-0400 Pulse (Heart Rate) 85 /min Pilar Molina RN [facility] Work Phone: Comment on above: Pattern: Regular 02-02-2019 07:03-0400 Pulse Oximetry 97 % Marybeth Thomas [facility] Work Phone: Comment on above: Room air 02-02-2019 07:03-0400 Respiratory Rate 18 /min Pilar Molina RN [facility] Work Phone: Comment on above: Pattern: Unlabored 02-02-2019 07:03-0400 SaO2% (BldA) [Mass fraction] 97 % Pilar Molina RN [facility]; [facility] Work Phone: Comment on above: Room air 12-14-2018 09:51-0400 BMI (Body Mass Index) 23.15 kg/m2 Marilynn Wallace RN [facility] Internal Medicine Work Phone: 12-14-2018 09:51-0400 Body Temperature 97.6 [degF] Marilynn Wallace RN [facility] Work Phone: Comment on above: Method: Temporal 12-14-2018 09:51-0400 Body weight 75.3 kg Marilynn Wallace RN [facility] Work Phone: 12-14-2018 09:51-0400 BP Diastolic 82 mm[Hg] Marilynn Wallace RN [facility] Work Phone: Comment on above: Patient Position: Sitting; Cuff Location : Left Arm; Cuff Size: Standard 12-14-2018 09:51-0400 BP Systolic 134 mm[Hg] Marilynn Wallace RN [facility] Work Phone: Comment on above: Patient Position: Sitting; Cuff Location : Left Arm; Cuff Size: Standard 12-14-2018 09:51-0400 BSA (Body Surface Area) 1.95 m2 Marilynn Wallace RN [facility] Work Phone: 12-14-2018 09:51-0400 Height 180.34 cm Marilynn Wallace RN [facility] Work Phone: 12-14-2018 09:51-0400 Pulse (Heart Rate) 96 /min Marilynn Wallace RN [facility] Work Phone: Comment on above: Pattern: Regular 12-14-2018 09:51-0400 Pulse Oximetry 97 % Marybeth Robbinson [facility] Internal Medicine Work Phone: Comment on above: Room air 12-14-2018 09:51-0400 Respiratory Rate 16 /min Marilynn Wallace RN [facility] Work Phone: Comment on above: Pattern: Unlabored 12-14-2018 09:51-0400 SaO2% (BldA) [Mass fraction] 97 % Marilynn Wallace RN [facility]; [facility] Work Phone: Comment on above: Room air 12-14-2018 09:51-0400 Weight 75.3 kg Marybeth Thomas [facility] Internal Medicine Work Phone: 11-30-2018 12:29-0400 BMI (Body Mass Index) 23.31 kg/m2 Stacy Jensen [facility] Work Phone: 11-30-2018 12:29-0400 Body Temperature 97.2 [degF] Stacy Jensen [facility] Work Phone: Comment on above: Method: Temporal 11-30-2018 12:29-0400 Body weight 75.81 kg Stacy Jensen [facility] Work Phone: 11-30-2018 12:29-0400 BP Diastolic 72 mm[Hg] Stacy Jensen [facility] Work Phone: Comment on above: Patient Position: Sitting; Cuff Location : Left Arm; Cuff Size: Standard 11-30-2018 12:29-0400 BP Systolic 143 mm[Hg] Stacy Jensen CMA [facility] Internal Medicine Work Phone: Comment on above: Patient Position: Sitting; Cuff Location : Left Arm; Cuff Size: Standard 11-30-2018 12:29-0400 BSA (Body Surface Area) 1.95 m2 Stacy Jensen CMA [facility] Internal Medicine Work Phone: 11-30-2018 12:29-0400 Height 180.34 cm Stacy Jensen CMA [facility] Internal Medicine Work Phone: 11-30-2018 12:29-0400 Pulse (Heart Rate) 86 /min Stacy Jensen CMA [facility] Internal Medicine Work Phone: Comment on above: Pattern: Regular 11-30-2018 12:29-0400 Pulse Oximetry 98 % Marybeth Thomas [facility] Internal Medicine Work Phone: Comment on above: Room air 11-30-2018 12:29-0400 Respiratory Rate 18 /min Stayc Jensen CMA [facility] Internal Medicine Work Phone: Comment on above: Pattern: Unlabored 11-30-2018 12:29-0400 SaO2% (BldA) [Mass fraction] 98 % Stacy Jensen [facility]; [facility] Work Phone: Comment on above: Room air 11-30-2018 12:29-0400 Weight 75.81 kg Marybeth Thomas [facility] Internal Medicine Work Phone: 10-26-2018 07:36-0400 BMI (Body Mass Index) 22.75 kg/m2 Stacy Jensen CMA [facility] Internal Medicine Work Phone: 10-26-2018 07:36-0400 Body Temperature 97.5 [degF] Stacy Jensen CMA [facility] Internal Medicine Work Phone: Comment on above: Method: Temporal 10-26-2018 07:36-0400 Body weight 73.99 kg Stacy Jensen [facility] Work Phone: 10-26-2018 07:36-0400 BP Diastolic 82 mm[Hg] Stacy Jensen [facility] Work Phone: Comment on above: Patient Position: Sitting; Cuff Location : Left Arm; Cuff Size: Standard 10-26-2018 07:36-0400 BP Systolic 142 mm[Hg] Stacy Jensen [facility] Work Phone: Comment on above: Patient Position: Sitting; Cuff Location : Left Arm; Cuff Size: Standard 10-26-2018 07:36-0400 BSA (Body Surface Area) 1.93 m2 Stacy eJnsen [facility] Work Phone: 10-26-2018 07:36-0400 Height 180.34 cm Stacy Jensen [facility] Work Phone: 10-26-2018 07:36-0400 Pulse (Heart Rate) 93 /min Stacy Jensen [facility] Work Phone: Comment on above: Pattern: Regular 10-26-2018 07:36-0400 Pulse Oximetry 96 % Marybeth Thomas [facility] Internal Medicine Work Phone: Comment on above: Room air 10-26-2018 07:36-0400 Respiratory Rate 16 /min Stacy Jensen [facility] Work Phone: Comment on above: Pattern: Unlabored 10-26-2018 07:36-0400 SaO2% (BldA) [Mass fraction] 96 % Stacy Jensen [facility]; [facility] Work Phone: Comment on above: Room air 10-26-2018 07:36-0400 Weight 73.99 kg Marybeth Thomas [facility] Internal Medicine Work Phone: 11-14-2017 15:56-0400 BMI (Body Mass Index) 22.75 kg/m2 Marilynn Wallace RN [facility] Internal Medicine Work Phone: 11-14-2017 15:56-0400 Body Temperature 98.6 [degF] Marilynn Wallace RN [facility] Internal Medicine Work Phone: Comment on above: Method: Temporal 11-14-2017 15:56-0400 Body weight 73.99 kg Marilynn Wallace RN [facility] Internal Medicine Work Phone: 11-14-2017 15:56-0400 BP Diastolic 88 mm[Hg] Marilynn Wallace RN [facility] Work Phone: Comment on above: Patient Position: Sitting; Cuff Location : Left Arm; Cuff Size: Standard 11-14-2017 15:56-0400 BP Systolic 130 mm[Hg] Marilynn Wallace RN [facility] Work Phone: Comment on above: Patient Position: Sitting; Cuff Location : Left Arm; Cuff Size: Standard 11-14-2017 15:56-0400 BSA (Body Surface Area) 1.93 m2 Marilynn Wallace RN [facility] Work Phone: 11-14-2017 15:56-0400 Height 180.34 cm Marilynn Wallace RN [facility] Work Phone: 11-14-2017 15:56-0400 Pulse (Heart Rate) 72 /min Marilynn Wallace RN [facility] Work Phone: Comment on above: Pattern: Regular 11-14-2017 15:56-0400 Respiratory Rate 16 /min Marilynn Wallace RN [facility] Work Phone: Comment on above: Pattern: Unlabored 11-14-2017 15:56-0400 Weight 73.99 kg Marybeth Thomas [facility] Internal Medicine Work Phone: 10-05-2017 08:15-0400 BMI (Body Mass Index) 22.75 kg/m2 Jayla Barlow [facility] Internal Medicine Work Phone: 10-05-2017 08:15-0400 Body weight 73.99 kg Jayla Barlow [facility] Medicine Work Phone: 10-05-2017 08:15-0400 BP Diastolic 78 mm[Hg] Jayla Barlow [facility] Internal Medicine Work Phone: Comment on above: Patient Position: Sitting; Cuff Location : Left Arm; Cuff Size: Standard 10-05-2017 08:15-0400 BP Systolic 162 mm[Hg] Jayla Barlow [facility] Internal Medicine Work Phone: Comment on above: Patient Position: Sitting; Cuff Location : Left Arm; Cuff Size: Standard 10-05-2017 08:15-0400 BSA (Body Surface Area) 1.93 m2 Jayla Barlow [facility] Internal Medicine Work Phone: 10-05-2017 08:15-0400 Height 180.34 cm Jayla Barlow [facility] Internal Medicine Work Phone: 10-05-2017 08:15-0400 Pulse (Heart Rate) 56 /min Jayla Barlow [facility] Internal Medicine Work Phone: Comment on above: Pattern: Regular 10-05-2017 08:15-0400 Pulse Oximetry 98 % Marybeth Thomas [facility] Internal Medicine Work Phone: Comment on above: Room air 10-05-2017 08:15-0400 Respiratory Rate 18 /min Jayla Barlow [facility] Internal Medicine Work Phone: Comment on above: Pattern: Unlabored 10-05-2017 08:15-0400 SaO2% (BldA) [Mass fraction] 98 % Jayla Barlow [facility] Internal Medicine; [facility] Work Phone: Comment on above: Room air 10-05-2017 08:15-0400 Weight 73.99 kg Marybeth Thomas [facility] Internal Medicine Work Phone: 11-24-2016 08:08-0400 BMI (Body Mass Index) 23.71 kg/m2 [facility] Work Phone: 11-24-2016 08:08-0400 Body weight 77.11 kg Pastora OhGerald [facility] Medicine Work Phone: 11-24-2016 08:08-0400 BP Diastolic 68 mm[Hg] Pastora ManGerald [facility] Work Phone: Comment on above: Patient Position: Sitting; Cuff Location : Left Arm; Cuff Size: Standard 11-24-2016 08:08-0400 BP Systolic 126 mm[Hg] [facility] Work Phone: Comment on above: Patient Position: Sitting; Cuff Location : Left Arm; Cuff Size: Standard 11-24-2016 08:08-0400 BSA (Body Surface Area) 1.97 m2 [facility] Work Phone: 11-24-2016 08:08-0400 Height 180.34 cm Pastora Marino CMA [facility] Internal Medicine Work Phone: 11-24-2016 08:08-0400 Pulse (Heart Rate) 107 /min Pastora Marino [facility] Work Phone: Comment on above: Pattern: Regular 11-24-2016 08:08-0400 Pulse Oximetry 100 % Marybeth Thomas [facility] Internal Medicine Work Phone: Comment on above: Room air 11-24-2016 08:08-0400 Respiratory Rate 16 /min Pastora Marino [facility] Work Phone: Comment on above: Pattern: Unlabored 11-24-2016 08:08-0400 SaO2% (BldA) [Mass fraction] 100 % Pastora Marino [facility]; [facility] Work Phone: Comment on above: Room air 11-24-2016 08:08-0400 Weight 77.11 kg Marybeth Thomas [facility] Internal Medicine Work Phone: 07-21-2016 08:15-0500 BMI (Body Mass Index) 23.15 kg/m2 Pastora Marino [facility] Work Phone: 07-21-2016 08:15-0500 Body Temperature 97.2 [degF] Pastora Marino [facility] Work Phone: Comment on above: Method: Temporal 07-21-2016 08:15-0500 Body weight 75.3 kg Pastora Marino [facility] Work Phone: 07-21-2016 08:15-0500 BP Diastolic 70 mm[Hg] Pastora Marino [facility] Work Phone: Comment on above: Patient Position: Sitting; Cuff Location : Left Arm; Cuff Size: Standard 07-21-2016 08:15-0500 BP Systolic 118 mm[Hg] Pastora Marino [facility] Work Phone: Comment on above: Patient Position: Sitting; Cuff Location : Left Arm; Cuff Size: Standard 07-21-2016 08:15-0500 BSA (Body Surface Area) 1.95 m2 Pastora Marino [facility] Work Phone: 07-21-2016 08:15-0500 Height 180.34 cm Pastora Marino [facility] Work Phone: 07-21-2016 08:15-0500 Pulse (Heart Rate) 94 /min Pastora Marino [facility] Work Phone: Comment on above: Pattern: Regular 07-21-2016 08:15-0500 Respiratory Rate 16 /min Pastora Marino [facility] Work Phone: Comment on above: Pattern: Unlabored 07-21-2016 08:15-0500 Weight 75.3 kg Marybeth Thomas [facility] Medicine Work Phone: 03-19-2016 07:12-0400 BMI (Body Mass Index) 23.43 kg/m2 Pastora Marino [facility] Work Phone: 03-19-2016 07:12-0400 Body weight 76.2 kg Pastora Marino [facility] Work Phone: 03-19-2016 07:12-0400 BP Diastolic 64 mm[Hg] Pastora Marino [facility] Work Phone: Comment on above: Patient Position: Sitting; Cuff Location : Left Arm; Cuff Size: Standard 03-19-2016 07:12-0400 BP Systolic 122 mm[Hg] Pastora Marino [facility] Work Phone: Comment on above: Patient Position: Sitting; Cuff Location : Left Arm; Cuff Size: Standard 03-19-2016 07:12-0400 BSA (Body Surface Area) 1.96 m2 Pastora Marino [facility] Work Phone: 03-19-2016 07:12-0400 Height 180.34 cm Pastora Marino [facility] Work Phone: 03-19-2016 07:12-0400 Pulse (Heart Rate) 64 /min Pastora Marino [facility] Work Phone: Comment on above: Pattern: Regular 03-19-2016 07:12-0400 Pulse Oximetry 98 % Marybeth Thomas [facility] Internal Medicine Work Phone: Comment on above: Room air 03-19-2016 07:12-0400 Respiratory Rate 16 /min Pastora Marino [facility] Work Phone: Comment on above: Pattern: Unlabored 03-19-2016 07:12-0400 SaO2% (BldA) [Mass fraction] 98 % Pastora Marino [facility]; [facility] Work Phone: Comment on above: Room air 03-19-2016 07:12-0400 Weight 76.2 kg Marybeth Thomas [facility] Medicine Work Phone: 08-25-2015 17:01-0500 BMI (Body Mass Index) 24.83 kg/m2 Nelly Forde [facility] Medicine Work Phone: 08-25-2015 17:01-0500 Body Temperature 99.1 [degF] Nelly Forde [facility] Medicine Work Phone: Comment on above: Method: Temporal 08-25-2015 17:01-0500 Body weight 80.74 kg Nelly Forde [facility] Medicine Work Phone: 08-25-2015 17:01-0500 BP Diastolic 80 mm[Hg] Nelly Forde [facility] Internal Medicine Work Phone: Comment on above: Patient Position: Sitting; Cuff Location : Left Arm; Cuff Size: Standard 08-25-2015 17:01-0500 BP Systolic 142 mm[Hg] Nelly Forde [facility] Internal Medicine Work Phone: Comment on above: Patient Position: Sitting; Cuff Location : Left Arm; Cuff Size: Standard 08-25-2015 17:01-0500 BSA (Body Surface Area) 2.01 m2 Nelly Forde [facility] Internal Medicine Work Phone: 08-25-2015 17:01-0500 Height 180.34 cm Nelly Saxenasanta [facility] Internal Medicine Work Phone: 08-25-2015 17:01-0500 Pulse (Heart Rate) 76 /min Nelly Forde [facility] Internal Medicine Work Phone: Comment on above: Pattern: Regular 08-25-2015 17:01-0500 Pulse Oximetry 95 % Marybeth Thomas [facility] Internal Medicine Work Phone: Comment on above: Room air 08-25-2015 17:01-0500 Respiratory Rate 15 /min Nelly Maurisio [facility] Internal Medicine Work Phone: Comment on above: Pattern: Unlabored 08-25-2015 17:01-0500 SaO2% (BldA) [Mass fraction] 95 % Nelly Maurisio [facility] Internal Medicine; [facility] Work Phone: Comment on above: Room air 08-25-2015 17:01-0500 Weight 80.74 kg Marybeth Thomas [facility] Internal Medicine Work Phone: 10-01-2014 10:00-0400 BMI (Body Mass Index) 24.41 kg/m2 Nelly Saxenasanta [facility] Internal Medicine Work Phone: 10-01-2014 10:00-0400 Body Temperature 97.7 [degF] Nelly Forde [facility] Internal Medicine Work Phone: 10-01-2014 10:00-0400 Body weight 79.38 kg Nelly Maurisio [facility] Internal Medicine Work Phone: 10-01-2014 10:00-0400 BP Diastolic 82 mm[Hg] Nelly Maurisio [facility] Internal Medicine Work Phone: Comment on above: Patient Position: Sitting; Cuff Location : Left Arm; Cuff Size: Standard 10-01-2014 10:00-0400 BP Systolic 134 mm[Hg] Nelly Forde [facility] Internal Medicine Work Phone: Comment on above: Patient Position: Sitting; Cuff Location : Left Arm; Cuff Size: Standard 10-01-2014 10:00-0400 BSA (Body Surface Area) 1.99 m2 Nelly Forde [facility] Internal Medicine Work Phone: 10-01-2014 10:00-0400 Height 180.34 cm Nelly Forde [facility] Internal Medicine Work Phone: 10-01-2014 10:00-0400 Pulse (Heart Rate) 82 /min Nelly Forde [facility] Internal Medicine Work Phone: Comment on above: Pattern: Regular 10-01-2014 10:00-0400 Respiratory Rate 16 /min Nelly Forde [facility] Internal Medicine Work Phone: Comment on above: Pattern: Unlabored 10-01-2014 10:00-0400 Weight 79.38 kg Marybeth Thomas [facility] Internal Medicine Work Phone: 09-02-2014 08:51-0500 BMI (Body Mass Index) 24.41 kg/m2 Pastora Marino [facility] Internal Medicine Work Phone: 09-02-2014 08:51-0500 Body Temperature 97.1 [degF] Pastora aMrino [facility] Internal Medicine Work Phone: Comment on above: Method: Oral 09-02-2014 08:51-0500 Body weight 79.38 kg Pastora Marino [facility] Internal Medicine Work Phone: 09-02-2014 08:51-0500 BP Diastolic 78 mm[Hg] Pastora Marino [facility] Internal Medicine Work Phone: Comment on above: Patient Position: Sitting; Cuff Location : Left Arm; Cuff Size: Standard 09-02-2014 08:51-0500 BP Systolic 140 mm[Hg] Pastora Ned [facility] Internal Medicine Work Phone: Comment on above: Patient Position: Sitting; Cuff Location : Left Arm; Cuff Size: Standard 09-02-2014 08:51-0500 BSA (Body Surface Area) 1.99 m2 Pastora Marino [facility] Internal Medicine Work Phone: 09-02-2014 08:51-0500 Height 180.34 cm Pastora Marino [facility] Internal Medicine Work Phone: 09-02-2014 08:51-0500 Pulse (Heart Rate) 96 /min Pastora Marino [facility] Internal Medicine Work Phone: Comment on above: Pattern: Regular 09-02-2014 08:51-0500 Respiratory Rate 16 /min Pastora Marino [facility] Internal Medicine Work Phone: Comment on above: Pattern: Unlabored 09-02-2014 08:51-0500 Weight 79.38 kg Marybeth Thomas [facility] Internal Medicine Work Phone: 10-08-2013 16:36-0400 BMI (Body Mass Index) 23.99 kg/m2 Nelly Moran [facility] Internal Medicine Work Phone: 10-08-2013 16:36-0400 Body Temperature 98.4 [degF] Nelly Forde [facility] Internal Medicine Work Phone: 10-08-2013 16:36-0400 Body weight 78.02 kg Nelly Forde [facility] Internal Medicine Work Phone: 10-08-2013 16:36-0400 BP Diastolic 60 mm[Hg] Nelly Forde [facility] Internal Medicine Work Phone: Comment on above: Patient Position: Sitting; Cuff Location : Left Arm; Cuff Size: Large 10-08-2013 16:36-0400 BP Systolic 110 mm[Hg] Nelly Forde [facility] Internal Medicine Work Phone: Comment on above: Patient Position: Sitting; Cuff Location : Left Arm; Cuff Size: Large 10-08-2013 16:36-0400 BSA (Body Surface Area) 1.98 m2 eNlly Forde [facility] Internal Medicine Work Phone: 10-08-2013 16:36-0400 Height 180.34 cm Nelly Forde [facility] Internal Medicine Work Phone: 10-08-2013 16:36-0400 Pulse (Heart Rate) 92 /min Nelly Forde [facility] Internal Medicine Work Phone: Comment on above: Pattern: Regular 10-08-2013 16:36-0400 Respiratory Rate 18 /min Nelly Forde [facility] Internal Medicine Work Phone: Comment on above: Pattern: Unlabored 10-08-2013 16:36-0400 Weight 78.02 kg Marybeth Thomas [facility] Internal Medicine Work Phone: 01-01-2013 16:13-0400 BMI (Body Mass Index) 23.43 kg/m2 Nelly Forde [facility] Internal Medicine Work Phone: 01-01-2013 16:13-0400 Body Temperature 97.6 [degF] Nelly Forde [facility] Internal Medicine Work Phone: 01-01-2013 16:13-0400 Body weight 76.2 kg Nelly Forde [facility] Internal Medicine Work Phone: 01-01-2013 16:13-0400 BP Diastolic 72 mm[Hg] Nelly Forde [facility] Internal Medicine Work Phone: Comment on above: Patient Position: Sitting; Cuff Location : Left Arm; Cuff Size: Standard 01-01-2013 16:13-0400 BP Systolic 128 mm[Hg] Nelly Forde [facility] Internal Medicine Work Phone: Comment on above: Patient Position: Sitting; Cuff Location : Left Arm; Cuff Size: Standard 01-01-2013 16:13-0400 BSA (Body Surface Area) 1.96 m2 Nelly Forde [facility] Internal Medicine Work Phone: 01-01-2013 16:13-0400 Height 180.34 cm Nelly Mahoneymonico [facility] Internal Medicine Work Phone: 01-01-2013 16:13-0400 Pulse (Heart Rate) 96 /min Nelly Marksens e Internal Medicine Work Phone: Comment on above: Pattern: Regular 01-01-2013 16:13-0400 Respiratory Rate 16 /min Nelly Mahoneymonico [facility] Internal Medicine Work Phone: Comment on above: Pattern: Unlabored 01-01-2013 16:13-0400 Weight 76.2 kg Mraybeth Thomas [facility] Internal Medicine Work Phone: 10-31-2012 08:20-0400 BMI (Body Mass Index) 23.71 kg/m2 Nelly Maurisio [facility] Internal Medicine Work Phone: 10-31-2012 08:20-0400 Body Temperature 98.2 [degF] Nelly Maurisio [facility] Internal Medicine Work Phone: 10-31-2012 08:20-0400 Body weight 77.11 kg Nelly Maurisio [facility] Internal Medicine Work Phone: 10-31-2012 08:20-0400 BP Diastolic 72 mm[Hg] Nelly Maurisio [facility] Internal Medicine Work Phone: Comment on above: Patient Position: Sitting; Cuff Location : Left Arm; Cuff Size: Large 10-31-2012 08:20-0400 BP Systolic 122 mm[Hg] Nelly Maurisio [facility] Internal Medicine Work Phone: Comment on above: Patient Position: Sitting; Cuff Location : Left Arm; Cuff Size: Large 10-31-2012 08:20-0400 BSA (Body Surface Area) 1.97 m2 Nelly Maurisio [facility] Internal Medicine Work Phone: 10-31-2012 08:20-0400 Height 180.34 cm Nelly Forde [facility] Internal Medicine Work Phone: 10-31-2012 08:20-0400 Pulse (Heart Rate) 88 /min Nelly Maurisio [facility] Medicine Work Phone: Comment on above: Pattern: Regular 10-31-2012 08:20-0400 Respiratory Rate 18 /min Nelly Maurisio [facility] Internal Medicine Work Phone: Comment on above: Pattern: Unlabored 10-31-2012 08:20-0400 Weight 77.11 kg Marybeth Thomas [facility] Internal Medicine Work Phone: 10-23-2012 16:00-0400 BMI (Body Mass Index) 24.01 kg/m2 Elizabeth Ruiz LPN [facility] Work Phone: 10-23-2012 16:00-0400 Body Temperature 98.3 [degF] Elizabeth Ruiz LPN [facility] Work Phone: Comment on above: Method: Oral 10-23-2012 16:00-0400 Body weight 78.08 kg Elizabeth Ruiz LPN [facility] Work Phone: 10-23-2012 16:00-0400 BP Diastolic 84 mm[Hg] Elizabeth Ruiz LPN [facility] Work Phone: Comment on above: Patient Position: Sitting; Cuff Location : Left Arm; Cuff Size: Standard 10-23-2012 16:00-0400 BP Systolic 140 mm[Hg] Elizabeth Ruiz LPN [facility] Work Phone: Comment on above: Patient Position: Sitting; Cuff Location : Left Arm; Cuff Size: Standard 10-23-2012 16:00-0400 BSA (Body Surface Area) 1.98 m2 Elizabeth Ruiz LPN [facility] Work Phone: 10-23-2012 16:00-0400 Height 180.34 cm Elizabeth Ruiz LPN [facility] Work Phone: 10-23-2012 16:00-0400 Pulse (Heart Rate) 100 /min Elizabeth Ruiz LPN [facility] Work Phone: Comment on above: Pattern: Regular 10-23-2012 16:00-0400 Respiratory Rate 16 /min Elizabeth Ruiz LPN [facility] Work Phone: 10-23-2012 16:00-0400 Weight 78.08 kg Marybeth Tohmas [facility] Work Phone: 10-20-2012 08:03-0400 BMI (Body Mass Index) 24.01 kg/m2 Pilar Molina RN [facility] Work Phone: 10-20-2012 08:03-0400 Body Temperature 97.3 [degF] Pilar Molina RN [facility] Work Phone: Comment on above: Method: Oral 10-20-2012 08:03-0400 Body weight 78.08 kg Pilar Molina RN [facility] Work Phone: 10-20-2012 08:03-0400 BP Diastolic 70 mm[Hg] Pilar Molina RN [facility] Work Phone: Comment on above: Patient Position: Sitting; Cuff Location : Left Arm; Cuff Size: Large 10-20-2012 08:03-0400 BP Systolic 122 mm[Hg] Pilar Molina RN [facility] Work Phone: Comment on above: Patient Position: Sitting; Cuff Location : Left Arm; Cuff Size: Large 10-20-2012 08:03-0400 BSA (Body Surface Area) 1.98 m2 Pilar Molina RN [facility] Work Phone: 10-20-2012 08:03-0400 Height 180.34 cm Pilar Molina RN [facility] Work Phone: 10-20-2012 08:03-0400 Pulse (Heart Rate) 68 /min Pilar Molina RN [facility] Work Phone: Comment on above: Pattern: Regular 10-20-2012 08:03-0400 Respiratory Rate 20 /min Pilar Molina RN [facility] Work Phone: Comment on above: Pattern: Unlabored 10-20-2012 08:03-0400 Weight 78.08 kg Marybeth Thomas [facility] Work Phone: 07-14-2012 07:44-0500 BMI (Body Mass Index) 24.01 kg/m2 Elizabeth Ruiz LPN [facility] Work Phone: 07-14-2012 07:44-0500 Body Temperature 98.1 [degF] Elizabeth Ruiz LPN [facility] Work Phone: Comment on above: Method: Oral 07-14-2012 07:44-0500 Body weight 78.08 kg Elizabeth Ruiz LPN [facility] Work Phone: 07-14-2012 07:44-0500 BP Diastolic 80 mm[Hg] Elizabeth Ruiz LPN [facility] Work Phone: Comment on above: Patient Position: Sitting; Cuff Location : Left Arm; Cuff Size: Standard 07-14-2012 07:44-0500 BP Systolic 120 mm[Hg] Elizabeth Ruiz LPN [facility] Internal Medicine Work Phone: Comment on above: Patient Position: Sitting; Cuff Location : Left Arm; Cuff Size: Standard 07-14-2012 07:44-0500 BSA (Body Surface Area) 1.98 m2 Elizabeth Ruiz STITCH SEPARATOR [facility] Internal Medicine Work Phone: 07-14-2012 07:44-0500 Height 180.34 cm Elizabeth Ruiz [facility] Internal Medicine Work Phone: 07-14-2012 07:44-0500 Pulse (Heart Rate) 72 /min Elizabeth Ruiz [facility] Internal Medicine Work Phone: Comment on above: Pattern: Regular 07-14-2012 07:44-0500 Respiratory Rate 16 /min Elizabeth Ruiz STITCH SEPARATOR [facility] Internal Medicine Work Phone: 07-14-2012 07:44-0500 Weight 78.08 kg Marybeth Thomas [facility] Internal Medicine Work Phone: 11-22-2011 08:31-0400 BMI (Body Mass Index) 24.69 kg/m2 Nelyl Forde [facility] Internal Medicine Work Phone: 11-22-2011 08:31-0400 Body Temperature 97.3 [degF] Nelly Forde [facility] Internal Medicine Work Phone: 11-22-2011 08:31-0400 Body weight 80.29 kg Nelly Forde [facility] Internal Medicine Work Phone: 11-22-2011 08:31-0400 BP Diastolic 70 mm[Hg] Nelly Forde [facility] Internal Medicine Work Phone: Comment on above: Patient Position: Sitting; Cuff Location : Left Arm; Cuff Size: Large 11-22-2011 08:31-0400 BP Systolic 122 mm[Hg] Nelly Forde [facility] Internal Medicine Work Phone: Comment on above: Patient Position: Sitting; Cuff Location : Left Arm; Cuff Size: Large 11-22-2011 08:31-0400 BSA (Body Surface Area) 2 m2 Nelly Forde [facility] Internal Medicine Work Phone: 11-22-2011 08:31-0400 Height 180.34 cm Nelly Forde [facility] Internal Medicine Work Phone: 11-22-2011 08:31-0400 Pulse (Heart Rate) 104 /min [facility] Work Phone: Comment on above: Pattern: Regular 11-22-2011 08:31-0400 Respiratory Rate 16 /min Nelly Forde [facility] Internal Medicine Work Phone: Comment on above: Pattern: Unlabored 11-22-2011 08:31-0400 Weight 80.29 kg Marybeth Thomas [facility] Internal Medicine Work Phone: 05-26-2011 08:05-0400 BMI (Body Mass Index) 24.97 kg/m2 Minoo Parson RN [facility] Internal Medicine Work Phone: 05-26-2011 08:05-0400 Body Temperature 98.4 [degF] Minoo Parson RN [facility] Work Phone: Comment on above: Method: Oral 05-26-2011 08:05-0400 Body weight 81.19 kg Minoo Parson RN [facility] Work Phone: 05-26-2011 08:05-0400 BP Diastolic 82 mm[Hg] Minoo Parson RN [facility] Work Phone: Comment on above: Patient Position: Sitting; Cuff Location : Left Arm; Cuff Size: Standard 05-26-2011 08:05-0400 BP Systolic 120 mm[Hg] Minoo Parson RN [facility] Work Phone: Comment on above: Patient Position: Sitting; Cuff Location : Left Arm; Cuff Size: Standard 05-26-2011 08:05-0400 BSA (Body Surface Area) 2.01 m2 Minoo Parson RN [facility] Work Phone: 05-26-2011 08:05-0400 Height 180.34 cm Minoo Parson RN [facility] Work Phone: 05-26-2011 08:05-0400 Pulse (Heart Rate) 60 /min Minoo Parson RN [facility] Work Phone: Comment on above: Pattern: Regular 05-26-2011 08:05-0400 Respiratory Rate 16 /min Minoo Parson RN [facility] Work Phone: Comment on above: Pattern: Unlabored 05-26-2011 08:05-0400 Weight 81.19 kg Marybeth Thomas [facility] Internal Medicine Work Phone: 03-09-2010 15:06-0400 Body Temperature 98.1 [degF] Nelly Forde [facility] Internal Medicine Work Phone: 03-09-2010 15:06-0400 Body weight 73.94 kg Nelly Forde [facility] Internal Medicine Work Phone: 03-09-2010 15:06-0400 BP Diastolic 72 mm[Hg] Nelly Forde [facility] Internal Medicine Work Phone: Comment on above: Patient Position: Sitting; Cuff Location : Left Arm; Cuff Size: Large 03-09-2010 15:06-0400 BP Systolic 106 mm[Hg] Nelly Forde [facility] Internal Medicine Work Phone: Comment on above: Patient Position: Sitting; Cuff Location : Left Arm; Cuff Size: Large 03-09-2010 15:06-0400 Pulse (Heart Rate) 96 /min Nelly Forde [facility] Internal Medicine Work Phone: Comment on above: Pattern: Regular 03-09-2010 15:06-0400 Respiratory Rate 18 /min Nelly Forde [facility] Internal Medicine Work Phone: Comment on above: Pattern: Unlabored 03-09-2010 15:06-0400 Weight 73.94 kg Marybethmariam Thomas [facility] Internal Medicine Work Phone: 01-05-2010 18:04-0400 Body weight 75.3 kg Nelly Forde [facility] Internal Medicine Work Phone: 01-05-2010 18:04-0400 BP Diastolic 80 mm[Hg] Nelly Forde [facility] Internal Medicine Work Phone: Comment on above: Patient Position: Sitting; Cuff Location : Left Arm; Cuff Size: Standard 01-05-2010 18:04-0400 BP Systolic 132 mm[Hg] Nelly Forde [facility] Internal Medicine Work Phone: Comment on above: Patient Position: Sitting; Cuff Location : Left Arm; Cuff Size: Standard 01-05-2010 18:04-0400 Pulse (Heart Rate) 82 /min Nelly Forde [facility] Medicine Work Phone: Comment on above: Pattern: Regular 01-05-2010 18:04-0400 Respiratory Rate 18 /min Nelly Forde [facility] Internal Medicine Work Phone: Comment on above: Pattern: Unlabored 01-05-2010 18:04-0400 Weight 75.3 kg Marybeth Thomas [facility] Internal Medicine Work Phone: 10-24-2009 12:00-0400 Body Temperature 96.7 [degF] Nelly Forde [facility] Internal Medicine Work Phone: 10-24-2009 12:00-0400 Body weight 76.66 kg Nelly Forde [facility] Internal Medicine Work Phone: 10-24-2009 12:00-0400 BP Diastolic 76 mm[Hg] Nelly Forde [facility] Internal Medicine Work Phone: Comment on above: Patient Position: Sitting; Cuff Location : Left Arm; Cuff Size: Large 10-24-2009 12:00-0400 BP Systolic 140 mm[Hg] Nelly Forde [facility] Internal Medicine Work Phone: Comment on above: Patient Position: Sitting; Cuff Location : Left Arm; Cuff Size: Large 10-24-2009 12:00-0400 Pulse (Heart Rate) 96 /min Nelly Forde [facility] Work Phone: Comment on above: Pattern: Regular 10-24-2009 12:00-0400 Respiratory Rate 18 /min Nelly Forde [facility] Internal Medicine Work Phone: Comment on above: Pattern: Unlabored 10-24-2009 12:00-0400 Weight 76.66 kg Marybeth Thomas [facility] Internal Medicine Work Phone: 05-19-2009 16:22-0400 BMI (Body Mass Index) 23.37 kg/m2 [facility] Internal Medicine Work Phone: 05-19-2009 16:22-0400 Body Temperature 97 [degF] [facility] Internal Medicine Work Phone: Comment on above: Method: Oral 05-19-2009 16:22-0400 Body weight 76.01 kg [facility] Internal Medicine Work Phone: 05-19-2009 16:22-0400 BP Diastolic 78 mm[Hg] [facility] Internal Medicine Work Phone: Comment on above: Patient Position: Sitting; Cuff Location : Left Arm; Cuff Size: Standard 05-19-2009 16:22-0400 BP Systolic 134 mm[Hg] [facility] Internal Medicine Work Phone: Comment on above: Patient Position: Sitting; Cuff Location : Left Arm; Cuff Size: Standard 05-19-2009 16:22-0400 BSA (Body Surface Area) 1.96 m2 [facility] Internal Medicine Work Phone: 05-19-2009 16:22-0400 Head Circumference 0 cm Marybeth Thomas [facility] Internal Medicine Work Phone: 05-19-2009 16:22-0400 Head Occipital-frontal circumference 0 cm [facility] Internal Medicine; [facility] Internal Medicine Work Phone: 05-19-2009 16:22-0400 Height 180.34 cm [facility] Internal Medicine Work Phone: 05-19-2009 16:22-0400 Pulse (Heart Rate) 84 /min [facility] Internal Medicine Work Phone: Comment on above: Pattern: Regular 05-19-2009 16:22-0400 Respiratory Rate 18 /min [facility] Internal Medicine Work Phone: Comment on above: Pattern: Unlabored 05-19-2009 16:22-0400 Weight 76.01 kg Marybeth Thomas [facility] Internal Medicine Work Phone: 05-27-2008 15:53-0500 Body Temperature 97.8 [degF] [facility] Internal Medicine Work Phone: Comment on above: Method: Oral 05-27-2008 15:53-0500 Body weight 75.3 kg Melisa [facility] Internal Medicine Work Phone: 05-27-2008 15:53-0500 BP Diastolic 82 mm[Hg] [facility] Internal Medicine Work Phone: Comment on above: Patient Position: Sitting; Cuff Location : Left Arm; Cuff Size: Standard 05-27-2008 15:53-0500 BP Systolic 130 mm[Hg] [facility] Internal Medicine Work Phone: Comment on above: Patient Position: Sitting; Cuff Location : Left Arm; Cuff Size: Standard 05-27-2008 15:53-0500 Head Circumference 0 cm Marybeth Thomas [facility] Internal Medicine Work Phone: 05-27-2008 15:53-0500 Head Occipital-frontal circumference 0 cm [facility] Work Phone: 05-27-2008 15:53-0500 Height 0 cm [facility] Internal Medicine Work Phone: 05-27-2008 15:53-0500 Pulse (Heart Rate) 96 /min [facility] Internal Medicine Work Phone: Comment on above: Pattern: Regular 05-27-2008 15:53-0500 Respiratory Rate 18 /min [facility] Internal Medicine Work Phone: Comment on above: Pattern: Unlabored 05-27-2008 15:53-0500 Weight 75.3 kg Marybeth Thomas [facility] Internal Medicine Work Phone: 05-06-2008 16:32-0400 Body Temperature 97.9 [degF] [facility] Internal Medicine Work Phone: Comment on above: Method: Oral 05-06-2008 16:32-0400 Body weight 75.47 [facility] Work Phone: 05-06-2008 16:32-0400 BP Diastolic 82 mm[Hg] Melisa [facility] Internal Medicine Work Phone: Comment on above: Patient Position: Sitting; Cuff Location : Left Arm; Cuff Size: Standard 05-06-2008 16:32-0400 BP Systolic 130 mm[Hg] Melisa [facility] Internal Medicine Work Phone: Comment on above: Patient Position: Sitting; Cuff Location : Left Arm; Cuff Size: Standard 05-06-2008 16:32-0400 Head Circumference 0 cm Marybeth Thomas [facility] Internal Medicine Work Phone: 05-06-2008 16:32-0400 Head Occipital-frontal circumference 0 cm [facility] Work Phone: 05-06-2008 16:32-0400 Height 0 cm Melisa [facility] Internal Medicine Work Phone: 05-06-2008 16:32-0400 Pulse (Heart Rate) 98 /min Melisa [facility] Internal Medicine Work Phone: Comment on above: Pattern: Regular 05-06-2008 16:32-0400 Respiratory Rate 16 /min Melisa [facility] Internal Medicine Work Phone: Comment on above: Pattern: Unlabored 05-06-2008 16:32-0400 Weight 75.47 kg Marybeth Thomas [facility] Internal Medicine Work Phone: 07-20-2006 11:46-0500 BMI (Body Mass Index) 23.78 kg/m2 Nelly Forde [facility] Internal Medicine Work Phone: 07-20-2006 11:46-0500 Body Temperature 97.6 [degF] Nelly Forde [facility] Internal Medicine Work Phone: Comment on above: Method: Oral 07-20-2006 11:46-0500 Body weight 73.03 kg Nelly Forde [facility] Internal Medicine Work Phone: 07-20-2006 11:46-0500 BP Diastolic 70 mm[Hg] Nelly Forde [facility] Internal Medicine Work Phone: Comment on above: Patient Position: Sitting; Cuff Location : Right Arm; Cuff Size: Standard 07-20-2006 11:46-0500 BP Systolic 136 mm[Hg] Nelly Forde [facility] Internal Medicine Work Phone: Comment on above: Patient Position: Sitting; Cuff Location : Right Arm; Cuff Size: Standard 07-20-2006 11:46-0500 BSA (Body Surface Area) 1.88 m2 Nelly Forde [facility] Internal Medicine Work Phone: 07-20-2006 11:46-0500 Head Circumference 0 cm Marybeth Thomas [facility] Internal Medicine Work Phone: 07-20-2006 11:46-0500 Head Occipital-frontal circumference 0 cm Nelly Mahoneymonico [facility]; [facility] Work Phone: 07-20-2006 11:46-0500 Height 175.26 cm Nelly Mahoneymonico [facility] Internal Medicine Work Phone: 07-20-2006 11:46-0500 Pulse (Heart Rate) 92 /min Nelly Forde [facility] Internal Medicine Work Phone: Comment on above: Pattern: Regular 07-20-2006 11:46-0500 Respiratory Rate 16 /min Nelly Mahoneymonico [facility] Internal Medicine Work Phone: Comment on above: Pattern: Unlabored 07-20-2006 11:46-0500 Weight 73.03 kg Marybeth Thomas [facility] Internal Medicine Work Phone: 04-22-2006 07:46-0400 BMI (Body Mass Index) 23.78 kg/m2 Nelly Forde [facility] Internal Medicine Work Phone: 04-22-2006 07:46-0400 Body Temperature 97 [degF] Nelly Saxenasanta [facility] Internal Medicine Work Phone: Comment on above: Method: Oral 04-22-2006 07:46-0400 Body weight 73.03 kg Nelly Forde [facility] Internal Medicine Work Phone: 04-22-2006 07:46-0400 BP Diastolic 92 mm[Hg] Nelly Forde [facility] Internal Medicine Work Phone: Comment on above: Patient Position: Sitting; Cuff Location : Left Arm; Cuff Size: Standard 04-22-2006 07:46-0400 BP Systolic 142 mm[Hg] Nelly Forde [facility] Internal Medicine Work Phone: Comment on above: Patient Position: Sitting; Cuff Location : Left Arm; Cuff Size: Standard 04-22-2006 07:46-0400 BSA (Body Surface Area) 1.88 m2 Nelly Forde [facility] Internal Medicine Work Phone: 04-22-2006 07:46-0400 Head Circumference 0 cm Marybeth Thomas [facility] Internal Medicine Work Phone: 04-22-2006 07:46-0400 Head Occipital-frontal circumference 0 cm Nelly Forde [facility]; [facility] Work Phone: 04-22-2006 07:46-0400 Height 175.26 cm Nelly Saxenasanta [facility] Internal Medicine Work Phone: 04-22-2006 07:46-0400 Pulse (Heart Rate) 88 /min Nelly Mahoneymonico [facility] Work Phone: Comment on above: Pattern: Regular 04-22-2006 07:46-0400 Respiratory Rate 20 /min Nelly Mahoneymonico [facility] Internal Medicine Work Phone: Comment on above: Pattern: Unlabored 04-22-2006 07:46-0400 Weight 73.03 kg Marybeth Thomas [facility] Internal Medicine Work Phone: Encounters Encounter Date Encounter Type Care Provider Facility Start: 05-29-2025 End: 05-29-2025 Karel Tesfaye MD Work Phone: [facility] Comment on above: Dystonic tremor Start: 03-11-2025 End: 03-11-[address] Marybeth Thomas DO Work Phone: -Laboratory Start: 03-11-2025 End: 03-11-2025 Patient encounter procedure Gayle Ravi -Laboratory Work Phone: Start: 03-11-2025 End: 03-11-2025 ambulatory Gayle Ravi Facility:[facility] Start: 09-10-2024 End: 09-10-2024 ambulatory Dean Castillo Facility:[facility] Start: 03-16-2024 End: 03-16-2024 Office outpatient visit 25 minutes Christine Tesfaye MD Work Phone: [facility] Comment on above: Dystonic tremor (Annette meagan Dx); Spasmodic torticollis; Neurogenic claudication Start: 12-16-2023 Telephone encounter Christine chong MD Work Phone: [facility] Comment on above: Orders Start: 12-08-2023 End: 12-08-2023 Office outpatient visit 40 minutes Christine Tesfaye MD Work Phone: [facility] Comment on above: Spasmodic torticolli s (Primary Dx); Dystonic tremor; 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) Start: 09-16-2023 Telephone encounter Ted HARRIS [facility] Comment on above: Prior Authorization Start: 09-08-2023 End: 09-08-2023 Office outpatient visit 25 minutes Christine Tesfaye MD Work Phone: [facility] Comment on above: Spasmodic torticolli s (Primary Dx); Dystonic tremor; Abnormal involuntary movements Start: 08-20-2023 End: 08-20-2023 ambulatory [facility] Work Phone: Start: 08-20-2023 End: 08-20-2023 Patient encounter procedure [facility]-Laboratory Work Phone: Start: 06-09-2023 End: 06-09-2023 Office outpatient visit 15 minutes Christine Tesfaye MD Work Phone: [facility] Comment on above: Spasmodic torticolli s (Primary Dx); Tremor Start: 05-16-2023 Refill Christine Tesfaye MD Work Phone: [facility] Comment on above: Tremor Start: 04-15-2023 Refill Christine Tesfaye MD Work Phone: [facility] Comment on above: Tremor Start: 03-22-2023 End: 03-22-2023 Office outpatient visit 25 minutes Christine Tesfaye MD Work Phone: [facility] Comment on above: Spasmodic torticolli s (Primary Dx); Tremor Start: 01-31-2023 Marybeth Fearo n DO Work Phone: [facility] Start: 01-31-2023 End: 01-31-2023 Patient encounter procedure Marybeth Martha DO Work Phone: [facility] Start: 01-31-2023 End: 01-31-2023 Patient encounter status Marybeth Martha DO Work Phone: [facility]; [facility] Work Phone: Start: 01-20-2023 End: 01-20-2023 Office outpatient visit 15 minutes Marybeth Martha DO Work Phone: [facility] Start: 01-06-2023 End: 01-06-2023 Office outpatient visit 15 minutes Marybeth Martha DO Work Phone: [facility] Start: 12-31-2022 End: 12-31-2022 Office outpatient new 30 minutes Christine Tesfaye MD Work Phone: [facility] Comment on above: Spasmodic torticolli s (Primary Dx); Tremor; Yifan disease Start: 12-23-2022 Marybeth Fearo n DO Work Phone: [facility] Start: 12-23-2022 End: 12-24-2022 Office outpatient visit 25 minutes Marybeth Martha DO Work Phone: [facility] Start: 11-25-2022 End: 11-25-2022 ambulatory [facility] Work Phone: Start: 11-25-2022 End: 11-25-2022 Patient encounter procedure [facility]-Laboratory Start: 11-11-2022 Refill Martha kramer COMPLAINT ADJUSTER - EMERGING TECHNOLOGIES DIRECTOR Work Phone: [facility] Start: 09-17-2022 Refill Martha kramer COMPLAINT ADJUSTER - EMERGING TECHNOLOGIES DIRECTOR Work Phone: [facility] Start: 08-26-2022 End: 08-26-[address] Marybeth Thomas Work Phone: [facility] Work Phone: Start: 08-26-2022 End: 08-26-[address] Marybeth Thomas Work Phone: [facility]-Laboratory Start: 08-25-2022 End: 08-25-2022 Marybeth Thomas DO Work Phone: [facility] Start: 08-20-2022 Telephone encounter Martha Harding nd COMPLAINT ADJUSTER - EMERGING TECHNOLOGIES DIRECTOR Work Phone: [facility] Comment on above: Release of Informati on Start: 08-20-2022 ambulatory Marybeth Thomas DO [facility] Start: 08-20-2022 End: 08-20-2022 Office outpatient visit 25 minutes Marybeth Thomas DO Work Phone: [facility] Start: 08-18-2022 Refill Martha Javier PRN - EMERGING TECHNOLOGIES DIRECTOR Work Phone: [facility] [place] Start: 06-30-2022 End: 07-01-2022 Evaluation and management of inpatient Dr. Marybeth Thomas Work Phone: [facility]-Medical Surgical 3 Start: 06-30-2022 End: 07-01-[address] Marybeth Thomas Work Phone: [facility] Work Phone: Start: 06-25-2022 End: 06-25-[address] Marybeth Thomas Work Phone: [facility] Work Phone: Start: 06-25-2022 End: 06-25-[address] Marybeth Thomas Work Phone: [facility]-Nuclear Medicine, [facility] Start: 05-25-2022 End: 05-25-2022 ambulatory [facility] Work Phone: Start: 05-25-2022 End: 05-25-2022 Patient encounter procedure [facility]-Pulmonary Services/Neurology Start: 05-25-2022 Non-patient / Non-visit Dr. Walt Thomas Work Phone: [facility] Start: 05-18-2022 End: 05-18-2022 ambulatory [facility] Work Phone: Start: 05-18-2022 End: 05-18-2022 Patient encounter procedure [facility]-Laboratory Start: 05-13-2022 End: 05-13-2022 ambulatory [facility] Work Phone: Start: 05-13-2022 End: 05-13-2022 Patient encounter procedure [facility]-Cat Scan, [facility] Start: 04-12-2022 End: 04-12-2022 ambulatory [facility] Work Phone: Start: 04-12-2022 End: 04-12-2022 Patient encounter procedure [facility]-Laboratory, Specimen Start: 02-03-2022 End: 02-13-2022 Office outpatient visit 5 minutes Marybeth Thomas DO Work Phone: [facility] Start: 02-03-2022 Marybeth everett DO Work Phone: [facility] Start: 02-01-2022 End: 02-01-2022 Marybeth Thomas DO Work Phone: [facility] Start: 01-30-2022 End: 01-30-2022 Marybeth Martha DO Work Phone: [facility] Start: 01-29-2022 End: 01-29-2022 Patient encounter status Marybeth Martha DO Work Phone: [facility]; [facility] Work Phone: Start: 01-29-2022 End: 01-29-2022 Periodic preventive med est patient 65yrs& older Marybeth Martha DO Work Phone: [facility] Start: 01-29-2022 Marybeth Fearo n DO Work Phone: [facility] Start: 10-21-2021 End: 10-21-2021 Office outpatient visit 25 minutes Marybeth Martha DO Work Phone: [facility] Start: 06-01-2021 End: 06-01-2021 Office outpatient visit 25 minutes Marybeth Martha DO Work Phone: [facility] Start: 04-10-2021 Marybeth Fearo n DO Work Phone: [facility] Start: 04-08-2021 End: 04-08-2021 Marybeth Martha DO Work Phone: [facility] Start: 04-06-2021 End: 04-06-2021 Office outpatient visit 25 minutes Marybeth Martha DO Work Phone: [facility] Start: 01-19-2021 End: 01-19-2021 Patient encounter status Marybeth Martha DO Work Phone: [facility] Start: 01-19-2021 End: 01-19-2021 Periodic preventive med est patient 65yrs& older Marybeth Martha DO Work Phone: [facility] Start: 01-19-2021 Review Marybeth Fearo n DO Work Phone: [facility] Start: 12-01-2020 End: 12-01-2020 Office outpatient visit 25 minutes Marybeth Martha DO Work Phone: [facility] Start: 12-01-2020 Review Marybeth Wheatley n DO Work Phone: [facility] Start: 11-20-2020 End: 11-20-2020 Subsequent hospital visit by physician Christine Tesfaye MD Work Phone: [facility] Start: 09-01-2020 End: 09-01-2020 Office outpatient visit 25 minutes Marybeth Thomas [facility] Start: 04-30-2020 End: 04-30-2020 Office outpatient visit 25 minutes Marybeth Thomas [facility] Start: 01-28-2020 End: 01-28-2020 Office outpatient visit 15 minutes Marybeth Thomas [facility] Start: 01-09-2020 End: 01-09-2020 Office outpatient visit 15 minutes Marybeth Thomas [facility] Start: 12-27-2019 End: 12-27-2019 Office outpatient visit 25 minutes Marybeth Thomas [facility] Start: 08-03-2019 End: 08-03-2019 Lab Order Marybeth Thomas [facility] [employer] Lieutenant al Medicine Start: 08-03-2019 End: 08-03-2019 Marybeth Martha DO Work Phone: [facility] Start: 08-02-2019 Review Marybeth Thomas [facility] Start: 08-02-2019 End: 08-02-2019 Office outpatient visit 25 minutes Marybeth Thomas [facility] Start: 07-13-2019 End: 07-13-2019 Office outpatient visit 5 minutes Marybeth Thomas [facility] Start: 07-13-2019 End: 07-13-2019 Annotation/Addendum Marybeth Thomas [facility] [employer] [facility] [employer] Lieutenant [facility] Medicine Start: 07-13-2019 End: 07-13-2019 Marybeth Martha DO Work Phone: [facility] Start: 04-16-2019 End: 04-16-2019 Phone Encounter Marybeth Thomas [facility] [employer] Lieutenant [facility] Medicine Start: 04-16-2019 End: 04-16-2019 Marybeth Martha DO Work Phone: [facility] Start: 03-29-2019 End: 03-29-2019 Office outpatient visit 25 minutes Marybeth Thomas [facility] Start: 03-29-2019 Review Marybeth Thomas [facility] Start: 02-02-2019 End: 02-02-2019 Office outpatient visit 15 minutes Marybeth Thomas [facility] Start: 12-14-2018 End: 12-14-2018 Office outpatient visit 25 minutes Marybeth Thomas [facility] Start: 12-14-2018 Review Marybeth Thomas [facility] Start: 11-30-2018 End: 11-30-2018 Phone Encounter Marybeth Thomas [facility] [employer] Lieutenant [facility] Medicine Start: 11-30-2018 End: 11-30-2018 Marybeth Thomas DO Work Phone: [facility] Start: 11-30-2018 End: 11-30-2018 Office outpatient visit 15 minutes Marybeth Thomas [facility] Start: 10-26-2018 End: 10-26-2018 Office outpatient visit 25 minutes Marybeth Robbinson [facility] Start: 10-26-2018 Review Marybeth Thomas [facility] Start: 10-13-2018 End: 10-13-2018 Phone Encounter Marybeth Thomas [facility] [employer] Lieutenant [facility] Start: 10-13-2018 End: 10-13-2018 Marybeth Thomas DO Work Phone: [facility] Start: 11-21-2017 End: 11-21-2017 Phone Encounter Marybeth Robbinson [facility] [employer] Lieutenant [facility] Medicine Start: 11-21-2017 End: 11-21-2017 Marybeth Thomas DO Work Phone: [facility] Start: 11-21-2017 End: 11-21-2017 Annotation/Addendum Marybeth Martha [facility] [employer] Lieutenant [facility] Medicine Start: 11-21-2017 End: 11-21-2017 Marybeth Thomas DO Work Phone: [facility] Start: 11-14-2017 End: 11-14-2017 Office outpatient visit 15 minutes Marybeth Martha [facility] Start: 10-07-2017 End: 10-07-2017 Phone Encounter Marybeth Robbinson [facility] [employer] Lieutenant [facility] Start: 10-07-2017 End: 10-07-2017 Marybeth Thomas DO Work Phone: [facility] Start: 10-05-2017 End: 10-05-2017 Office outpatient visit 25 minutes Marybeth Thomas [facility] Start: 08-01-2017 End: 08-01-2017 Phone Encounter Marybeth Thomas [facility] [employer] Police Lieutenant al Medicine Start: 08-01-2017 End: 08-01-2017 Marybeth Thomas DO Work Phone: [facility] Start: 03-24-2017 End: 03-24-2017 Phone Encounter Marybeth Thomas [facility] [employer] Lieutenant al Medicine Start: 03-24-2017 End: 03-24-2017 Marybeth Thomas DO Work Phone: [facility] Start: 11-24-2016 End: 11-24-2016 Office outpatient visit 15 minutes Marybeth Martha [facility] Start: 07-21-2016 End: 07-21-2016 Office outpatient visit 25 minutes Marybeth Robbinson [facility] Start: 04-09-2016 End: 04-09-2016 Patient encounter procedure Marybethmariam Robbinson [facility] Start: 04-09-2016 End: 04-09-2016 Marybeth Thomas DO Work Phone: [facility] Start: 03-19-2016 End: 03-19-2016 Office outpatient visit 25 minutes Marybethmariam Thomas [facility] Start: 08-25-2015 End: 08-25-2015 Office outpatient visit 25 minutes Marybeth Martha [facility] Start: 10-01-2014 End: 10-01-2014 Office outpatient visit 15 minutes Marybethmariam Robbinson [facility] Start: 09-02-2014 End: 09-02-2014 Office outpatient visit 25 minutes Marybeth Martha [facility] Start: 10-08-2013 End: 10-08-2013 Patient encounter procedure Marybeth Thomas [facility] Start: 10-08-2013 End: 10-08-2013 Marybeth Thomas DO Work Phone: [facility] Start: 01-01-2013 End: 01-01-2013 Patient encounter procedure Marybeth Martha [facility] Start: 01-01-2013 End: 01-01-2013 Marybeth Thomas DO Work Phone: [facility] Start: 10-31-2012 End: 10-31-2012 Patient encounter procedure Marybeth Martha [facility] Start: 10-31-2012 End: 10-31-2012 Marybeth Thomas DO Work Phone: [facility] Start: 10-25-2012 End: 10-25-2012 Prescription Refill Marybeth Thomas [facility] [employer] [facility] Start: 10-25-2012 End: 10-25-2012 Marybeth Thomas DO Work Phone: [facility] Start: 10-25-2012 End: 10-25-2012 Phone Encounter Marybeth Thomas [facility] [employer] Lieutenant [facility] Medicine Start: 10-25-2012 End: 10-25-2012 Marybeth Thomas DO Work Phone: [facility] Start: 10-23-2012 End: 10-23-2012 Office outpatient visit 25 minutes Marybeth Thomas [facility] Start: 10-20-2012 End: 10-20-2012 Patient encounter procedure Marybeth Thomas [facility] Start: 10-20-2012 End: 10-20-2012 Marybeth Thomas DO Work Phone: [facility] Start: 07-14-2012 End: 07-14-2012 Office outpatient visit 25 minutes Marybeth Thomas [facility] Start: 06-21-2012 End: 06-21-2012 Annotation/Addendum Marybeth Thomas [facility] [employer] [facility] Start: 06-21-2012 End: 06-21-2012 Marybeth Thomas DO Work Phone: [facility] Start: 11-22-2011 End: 11-22-2011 Patient encounter procedure Marybeth Thomas [facility] Start: 11-22-2011 End: 11-22-2011 Marybeth Thomas DO Work Phone: [facility] Start: 05-26-2011 End: 05-26-2011 Patient encounter procedure Marybeth Thomas [facility] Start: 05-26-2011 End: 05-26-2011 Marybeth Thomas DO Work Phone: [facility] Start: 05-12-2011 End: 05-12-2011 Phone Encounter Marybeth Thomas [facility] [employer] Lieutenant [facility] Medicine Start: 05-12-2011 End: 05-12-2011 Marybeth Thomas DO Work Phone: [facility] Start: 03-09-2010 End: 03-09-2010 Patient encounter procedure Marybeth Thomas [facility] Start: 03-09-2010 End: 03-09-2010 Marybeth Thomas DO Work Phone: [facility] Start: 01-05-2010 End: 01-05-2010 Patient encounter procedure Marybeth Thomas [facility] Start: 01-05-2010 End: 01-05-2010 Marybeth Thomas DO Work Phone: [facility] Start: 10-24-2009 End: 10-27-2009 Patient encounter procedure Marybeth Thomas [facility] Start: 10-24-2009 End: 10-27-2009 Marybeth Thomas DO Work Phone: [facility] Start: 06-24-2009 End: 06-24-2009 Phone Encounter Marybeth Thomas [facility] [employer] Lieutenant [facility] Start: 06-24-2009 End: 06-24-2009 Marybeth Thomas DO Work Phone: [facility] Start: 05-19-2009 End: 05-19-2009 Office outpatient new 30 minutes Marybeth Thomas [facility] Start: 05-27-2008 End: 05-27-2008 Office outpatient visit 15 minutes Marybeth Thomas [facility] Start: 05-06-2008 End: 05-06-2008 Office outpatient new 10 minutes Marybeth Thomas [facility] Start: 05-06-2008 End: 05-06-2008 Office outpatient visit 25 minutes Marybeth Thomas [facility] Start: 07-20-2006 End: 07-20-2006 Patient encounter procedure Marybeth Thomas [facility] Start: 07-20-2006 End: 07-20-2006 Marybeth Thomas DO Work Phone: [facility] Start: 04-22-2006 End: 04-22-2006 Patient encounter procedure Marybeth Thomas [facility] Start: 04-22-2006 End: 04-22-2006 Marybeth Thomas DO Work Phone: [facility] Start: 04-21-2006 End: 04-21-2006 Historical Summary Marybeth Thomas [facility] [employer] [facility] Start: 04-21-2006 End: 04-21-2006 Marybeth Thomas DO Work Phone: [facility] Patient encounter status John everett Martha DO Work Phone: [facility]; [facility] Work Phone: Patient encounter status Breana Jama STITCH SEPARATOR [facility]; [facility] Work Phone: Patient encounter status Leann Aquino LP N [facility]; [facility] Work Phone: Patient encounter status Kevin Barlow STITCH SEPARATOR [facility]; [facility] Work Phone: Patient encounter status Suzie Cuba MA [facility]; [facility] Work Phone: Patient encounter status Waltchelseaoumou Abbie Cuba MA [facility]; [facility] Work Phone: Patient encounter status Irma Vikki WALDRON [facility]; [facility] Work Phone: Patient encounter status Irma Vikki WALDRON [facility]; [facility] Work Phone: Procedures Date Procedure Procedure Detail Performing Clinician Start: 03-11-2025 Assay of prostate specific antigen total Dr. Marybeth Thomas DO Work Phone: Comment on above: This test was performed using the [employer] tPSA method. Measured values of a patient sample can vary depending on the testing procedure used. PSA values determined on patient samples by different testing procedures cannot be used interchangeably. If there is a change in PSA assays while monitoring therapy, sequential testing should be performed to confirm baseline values. Start: 06-30-2022 End: 06-30-2022 Procedure Note: See Note; NOTES: [facility] Medical Records Department [address] [place] [address] Operative Report 06/30/22 1105 MR#: [id number] Acct: [id number] Name: VISHAL CISNEROS Rep #: [id number] : [id number] From: Dean Castillo MD PCP: Dr. Marybeth Thomas, DO Status:[facility] Location: [place] [address] Report of Operation Date of Procedure: 06/30/22 Pre-Operative Diagnosis: Prostate cancer Post-Operative Diagnosis: The same Surgery/Procedure Performed:: Laparoscopic robotic assisted radical prostatectomy, bilateral pelvic lymph node dissection, suture suspension of the urethra Description of Surgical Findings:: Patient presented to the hospital for treatment of his prostate cancer with radical prostatectomy. In the preoperative setting we discussed the options of management for his prostate cancer including active surveillance, radiation treatments, radioactive seeds, and radical robotic prostatectomy. We discussed the side effects of surgery including the potential to lose erections. We discussed the potential to have bladder control problems with stress incontinence which can be temporary or permanent. We discussed the risk of the surgery including the risk of general anesthetic, risk of bleeding, risk of infection, and risk of formation of hernia either incisional hernia or inguinal hernia. After long discussion with the patient the preoperative setting and also reviewed this in the preop area patient signed the consent form and we proceeded with a radical prostatectomy. Patient was taken back to the operating room he was identified, time out procedure was performed and he was placed supine on the table he underwent general anesthesia with intubation. The abdomen was shaved prepped and draped in usual sterile fashion as well as the penis and testicles. A 16 Cameroonian catheter was placed into the bladder with clear return of urine. I then made an incision in the umbilicus and dissected down to the fascia advance a Veress needle into the peritoneal cavity and insufflated the peritoneal cavity with CO2 gas. I then placed a 12 mm trocar above the umbilicus. I then visualized the placement of the rest of the trochars, I placed a right arm robotic trocar, and air seal trocar, a suction port 5 mm trocar. And on the left side I placed 2 robotic arms. Once all the trochars were in placed the patient was put in steep Trendelenburg. And the robot was docked the arms were docked and then I placed the 0 degree camera through the robotic arm and also used a 30 degree camera during certain parts of the case. I used scissors in the right arm, prograsp in the third arm, and a bipolar in the second arm. Initial dissection was to free the sigmoid colon off the lateral wall this was done by meticulously dissecting off the peritoneum and the sigmoid colon off the left lateral wall. This then allowed the prograsp to retract the sigmoid colon out of the pelvis. I then went below the bladder and identified the vas deferens incised the peritoneum over the vas deferens and traced the vas deferens below the bladder to the prostate and identified the right and left vasa deferens. Below behind the vas deferens then the seminal vesicles were identified. I then dissected the seminal vesicle free using pinpoint electrocautery and then we identified the other seminal vesicle and then dissected this using pinpoint electrocautery I then elevated the vas deferens and several vesicles off the prostate and was able to sweep the Denonvilliers' fascia off the prostate posteriorly all the way up to the apex of the prostate. Working laterally I made sure I went as lateral as possible to sweep the Denonilliers' fascia off the posterior aspect of the prostate and worked my way back, I then transected the vas deferens and the left and right side the seminal vesicles were then dissected free. And then I pulled out of the pelvis. At this point the bladder was dropped creating the space of Retzius with the bladder on traction with the fourth arm. Using electrocautery I dissected in the anterior peritoneal fascia and then created the space of Retzius dissecting towards the prostate. The pelvic lymph node dissection was then performed both on the left and the right pelvic lymph nodes the nodes that were taken on the right side extended from the right iliac artery lateral pelvic sidewall up to the junction of the artery and the lymph nodes and down to the obturator nerve and then also below the vacuum applicator operator nerve all the lymph nodes were removed during to remove those lymph nodes we used clips and electrocautery to control small blood vessels and also the control lymphatic. I then went to the left side and again did an extensive lymph node dissection starting of the left iliac artery extending the left iliac vein on the lateral sidewall down to the obturator nerve and the left side beyond the vacuum applicator operator nerve down further behind it cleaning out all the lymphatic tissue all this tissue was sent off as a specimen we use clips and electrocautery during the dissection. At the end we cleaned out all the lymphatic tissue on the right pelvic wall and no lymphatic tissue in the left pelvic wall. The prostate was then cleaned of the fat over the prostate and the fourth arm was used to retract the bladder and place traction. I then identified the endopelvic fascia that was overlying the prostate on the right side I incised endopelvic fascia and wwept the levator muscles off the prostate all the way to the apex on the right side, I then worked my way anterior to the prostate then transected to the puboprostatic ligament and the underlying dorsal vein complex was not injured. I then went to the other side and identified the endopelvic fascia in the left side incised in a fashion the left side and swept the levator muscles off the prostate on the left side all the way up to the apex the puboprostatic ligament on the left side was then dissected and transected I then freed up the fascia overlying the dorsal vein complex. I then used the prograsp to encircled the dorsal vein complex with the prograsp and then switched over to the right and left needle route driver and suture ligated the dorsal vein complex above the prograsp. The prograsp was then placed back in the bladder and put back on traction I then identified the junction between the bladder and the prostate and dissected down between the bladder and the prostate untilI came across the catheter we then dissected posteriorly to the bladder and prostate to free the prostate and the bladder off each other and the muscles between the bladder and the prostate was then cauterized to free up the bladder. I then went on top of the prostate and identified the endopelvic fascia on top of the prostate this was incised all the way to the apex and then we swept the endopelvic fascia off the prostate laterally and then identified the plane between endopelvic fascia and the prosthetic pseudocapsule and swept the fascia laterally until reaching the course of the neurovascular bundles and then released the neurovascular bundles off the prostate laterally all the way back in a retrograde fashion back to the junction of the pedicles then the prostate was placed on traction with the fourth arm pulling the prostate laterally identified the pedicle to the prostate between the seminal vesicles and the and the neurovascular bundle and this was taken using sequential small hemolocks. After the pedicle was taken the I then dissected underneath the prostate sweeping the neurovascular bundle off the prostate we able to follow the nice smooth plane between the neurovascular bundle and the pseudocapsule all the way to the apex once this was identified we swept this up all the way up to the apex and there was perfect nerve sparing on the right side. Then went to the left side the prostate identified the endopelvic fascia over the left side of the prostate I incised the endopelvic fascia all the way to the apex and then swept this off laterally I then released the neurovascular bundles on the left side of the prostate sweeping him off the prostate laterally I then elevated the prostate up up with the prostate and traction identified the pedicle to the prostate on the left side and then the pedicles taken with sequential Hem-o-jenise clips I then was able to dissected the neurovascular bundle off the left posterior aspect the prostate this was a perfect dissection all the way up on the left side following the pseudocapsule all the way up the left side until we reached the apex of the prostate. After the both the neurovascular bundles has been swept off the posterior to the prostate I then went above and transected the dorsal vein complex there was minimal to no bleeding but then dissected down to the urethra and circumfencial dissected around the urethra I then switched the right and left arm with the needle drivers and I suture-ligated the dorsal vein complex again just to ensure that there was no bleeding from the dorsal vein complex. I then transected through the urethra with scissors and the prostate was then freed and released off the prostate bed and put an Endo Catch bag. At this point the bladder neck was reconstructed and then an anastomosis was performed between the prostate and the bladder with a 3 oh V-Loc stitch in a running fashion starting from the bladder neck at the 6 o'clock position working to the 12 o'clock position with continuous stitches to complete a perfect anastomosis between the bladder and the prostate. I then placed a new catheter into the bladder, an 18 Cameroonian makah tip catheter flushed the bladder and there was no leakage from the anastomosis I put 10 cc in the balloon and pulled it up pulled back gently. I then ensured that there was no bleeding from the dorsal vein complex no bleeding from the neurovascular bundles FloSeal was placed as necessary once hemostasis was ensured and adequate then I placed the bladder back in position in the pelvis the prostate was exchanged to the camera port I closed the air seal port with a 10 12 Esdras Lebron stitch. And the extracted the prostate through the umbilicus. The robot was undocked all the ports were removed under direct visualization then closed the extraction site with 0 Vicryl with a CT1 needle once the extraction site was closed. I then closed all the incision with subcuticular stitches with 4-0 Monocryl and then bandages were placed on the incisions catheter was flushed to make sure it was draining well there was no clots and it was crystal clear patient's anesthetic was reversed he was extubated and taken back to the PACU in stable condition all the needles and sponges and instruments were accounted for. Blood loss was minimal and the drain was a 18 Cameroonian Barcenas catheter. No other surgical drain was left. I was present during the entire case. Surgeon: Dean Castillo Type of Anesthesia: General Drains: 18 fr doley Estimated Blood Loss (mL): 250 Admit VTE Documentation VTE Present on Admission: No VTE Mechan Device Prophylaxis: SCD's VTE Pharm Prophylaxis ordered?: No 06/30/22 1106 <Electronically signed by Dean Castillo MD> Cosigner Signature (if applicable): CC: Dr. Dean Castillo MD; Dr. Marybeth Thomas, DO Signed Marybeth Thomas DO Work Phone: Start: 06-30-2022 End: 06-30-2022 Procedure Note: See Note; NOTES: [facility] Medical Records Department [address] [place] [address] Instructions for Home/Discharge Instructions 06/30/22 0734 MR#: [id number] Acct: [id number] Name: VISHAL CISNEROS Rep #: [id number] : 1955 67 From: Dean Castillo MD PCP: Dr. Marybeth Thomas DO Status:REG [facility] [place] Discharge Instructions Diet Discharge Diet: No restrictions, Light diet - advance as tolerated and Soft diet Activity Discharge Activity: May Not Drive and May Shower Return to work on:: 07/28/22 May shower in (days): 1 Dressing / Incision Call your doctor if your incision/area has: Increased Redness Suture Line Care: Avoid Pulling/Pushing and Avoid Pinching/Bending Cleanse incision/area with: Soap Water Catheter: Barcenas to leg bag and Barcenas to large bag Drain: [place] Follow Up Care Please Follow Up With: Dean Castillo MD When: 2 weeks Test Results: Test results from this visit will be discussed in further detail at your follow-up appointment, if applicable. Discharge Plan Admission Primary Reason for Your Visit: prostate cancer Attending Provider: Dean Castillo Primary Care Provider: Marybeth Thomas Discharge Orders/Prescriptions Prescriptions: New ciprofloxacin HCl [Cipro] 500 mg tablet 500 mg PO BID Qty: 20 0RF docusate sodium [Colace] 100 mg capsule 100 mg PO BID Qty: 20 0RF oxycodone-acetaminophen 5-325 mg tablet 1 tab PO Q6H PRN (Reason: pain) 7 Days Qty: 14 0RF Continued primidone 250 MG tablet 250 mg PO BID Spiriva Respimat 2.5 mcg/actuation Mist 1 puff INHALATION DAILY Referrals / Follow Up: Dean Castillo MD [Med Staff - Active Staff] - Marybeth Thomas DO [Primary Care Provider] - Disposition Disposition (needs filled in before D/C Order can be placed): Home, Self Care 06/30/22 0736<Electronically signed by Dean Castillo MD>Dean Castillo MD CC: Dr. Marybeth Thomas DO Signed Marybeth Thomas DO Work Phone: Start: 06-30-2022 Lap Robotic Prostatectomy (Not Applicable) Dr. Marybeth Thomas Work Phone: Start: 06-25-2022 Radionuclide whole body bone study Dr. Marybeth Thomas Work Phone: Start: 06-25-2022 End: 06-26-2022 Procedure Note: See Note; NOTES: [facility] Imaging Services [address] [place] [address] Bone Scan Whole Body MR#: [id number] Acct: [id number] Name: VISHAL CISNEROS Rep #: [id number] : 1955 M 67 From: Patrick Mcclelland PCP: Dr. Marybeth Thomas DO Status: REG CLI Study: Bone Scan Whole Body Date of Exam: 06/25/22 Exam# [id number] Ordering Dr: Dean Castillo MD CLINICAL: 67-year-old male with history of carcinoma of the prostate. WHOLE BODY 99m Tc MDP RADIONUCLIDE BONE SCINTIGRAPHY COMPARISON: None available FINDINGS: Following the intravenous administration of 26.5 mCi of 99m Tc MDP, whole body bone images reveal: 1. Increased tracer concentration is defined in the acromioclavicular compartments of both shoulders, the right midfoot, the posterior midline sacrum. 2. The remaining skeletal structures are scintigraphically unremarkable with normal-appearing renal images and urinary bladder activity identified. NM/Bone Scan Whole Body IMPRESSION: 1. The increase in tracer concentration defined in the bilateral shoulders, sacrum and right midfoot are most consistent with degenerative arthrosis. 2. There is no definitive scintigraphic evidence of diffuse axial skeletal metastatic disease on the current examination. Electronically Signed: Patrick Vizcarra, at 11:25 EST , CC: Dr. Dean Castillo MD; Dr. Marybeth Thomas DO Extrusion Line Operator: Signed Marybeth Thomas DO Work Phone: Start: 06-24-2022 End: 06-24-2022 [facility] Suzie Leiva [facility] Start: 05-25-2022 End: 05-26-2022 Procedure Note: See Note; NOTES: [facility] Cardiovascular Services [address] [place] [address] 12 Lead EKG 05/25/22 1550 MR#: [id number] Acct: [id number] Name: VISHAL CISNEROS Rep #: [id number] : 1955 67 From: Carlos Alberto Jackson MD Attending Dr: Dr. Dean Castillo MD Status: REG CLI Ordering Dr: Dean Castillo MD Date: 05/25/22 Location: N Sex: M C Admitted: Test Reason : PRE OP Blood Pressure : / mmHG Vent. Rate : 101 BPM Atrial Rate : 101 BPM P-R Int : 132 ms QRS Dur : 066 ms QT Int : 324 ms P-R-T Axes : 000 054 024 degrees QTc Int : 420 ms Sinus tachycardia with occasional Premature ventricular complexes Nonspecific ST and T wave abnormality Abnormal ECG Confirmed by RAFAELA GABRIEL, CARLOS ALBERTO ([id number]), features editor ADRIAN TRUONG ([id number]) on 05/26/2022 9:32:09 AM Referred By: Dean Castillo Confirmed By:CARLOS ALBERTO JACKSON MD 05/26/2232 Date Carlos Alberto Jackson MD CC: Dr. Dean Castillo MD; Dr. Marybeth Thomas DO Signed Marybeth Thomas DO Work Phone: Start: 05-13-2022 Computed tomography of abdomen and pelvis with contrast Start: 05-13-2022 End: 05-13-2022 Procedure Note: See Note; NOTES: [facility] Imaging Services [address] [place] [address] Abdomen/Pelvis WITH Contrast MR#: [id number] Acct: [id number] Name: VISHAL CISNEROS Rep #: [id number] : 1955 M 67 From: Antonio Soriano MD PCP: Dr. Marybeth Thomas DO Status: REG CLI Study: Abdomen/Pelvis WITH Contrast Date of Exam: Exam# [id number] Ordering Dr: Dean Castillo MD STUDY: CT ABDOMEN AND PELVIS WITH CONTRAST REASON FOR EXAM: Male, 67 years old. Known prostate CA RADIATION DOSAGE (If Supplied By Facility): CTDIvol = ( 13.72 ) mGy, DLP = ( 784.09 ) mGycm TECHNIQUE: Transaxial images were obtained from the dome of the diaphragm to the symphysis pubis with oral contrast. IV 100mL Isovue-300 was administered. Sagittal and coronal images were reconstructed. Individualized dose optimization techniques were used for this CT. COMPARISON: No recent studies, previous CT from 2013 FINDINGS: The visualized lung bases are unremarkable. The visualized portions of the heart are within normal limits. Normal liver. Normal gallbladder and extrahepatic biliary system. Normal spleen. Normal pancreas. Normal bilateral adrenal glands. There is mild right hydronephrosis and hydroureter with induration of the fat around the UPJ. There is a 0.80 cm stone in the right UPJ. The right ureter distal to the UPJ is of normal course and caliber. Left kidney is free of obstructive uropathy. Normal visualized stomach. Normal small intestine. Retained stool noted throughout the colon. The appendix is visualized and appears normal. Appendix seen on coronal recon images 60 through 70, it contains appendicoliths There is diffuse atherosclerotic calcification of the abdominal aorta, without a demonstrated aneurysm. Normal inferior vena cava. Normal retroperitoneum. Normal urinary bladder. There are prostatic calcifications. Normal abdominal wall. There are diffuse degenerative changes of the visualized lumbar spine. CT/Abdomen/Pelvis WITH Contrast IMPRESSION: Right-sided hydronephrosis and dilatation of the UPJ subtle inflammatory stranding around the right UPJ. Findings likely due to a 0.80 cm calcification in the UPJ. No free intraperitoneal fluid, air, or suspicious adenopathy, normal appendix visualized Retained stool throughout the colon Degenerative bony changes Electronically Signed: Fredrick Soriano MD at 8:51 EDT , CC: Dr. Dean Castillo MD; Dr. Marybeth Thomas DO Extrusion Line Operator: Signed Marybeth Thomas DO Work Phone: Start: 04-23-2021 End: 04-23-2021 Comments: See Note; NOTES: [facility] Imaging Services [address] [place] [address] Lung Screening MR#: [id number] Acct: [id number] Name: VISHAL CISNEROS Rep #: [id number] : 1955 M 66 From: Efrain Sellers MD PCP: Dr. Marybeth Thomas DO Status: REG CLI Study: Low Dose CT Lung Screening Date of Exam: 04/23 Exam# [id number] Ordering Dr: Marybeth Thomas DO EXAM: CT CHEST, LUNG CANCER SCREENING WITHOUT INTRAVENOUS CONTRAST : 1955 CLINICAL INDICATION: COPD TECHNIQUE: Helically acquired images were obtained of the chest without intravenous contrast using low dose (LDCT) lung cancer screening protocol. This CT exam was performed using one or more of the following dose reduction techniques: automated exposure control, adjustment of the mA and/or kV according to patient size, and/or use of iterative reconstruction technique. This report was created using [employer] report generation technology. COMPARISON: None. FINDINGS: LUNGS AND PLEURAL SPACES: Unremarkable. No mass. No consolidation or edema. No pleural effusion or thickening. No pneumothorax. HEART: Unremarkable. Heart size is normal. No pericardial effusion. MEDIASTINUM: Unremarkable. No mediastinal or hilar adenopathy. Esophagus is unremarkable. No hiatal hernia. THYROID: Unremarkable. No thyroid lesions. BONES/JOINTS: Unremarkable. No suspicious lytic or blastic abnormality. VASCULATURE: Unremarkable. Thoracic aorta is non-dilated. LYMPH NODES: Unremarkable. No enlarged lymph nodes. CT/Low Dose CT Lung Screening IMPRESSION: 1. Normal chest CT. 2. Lung RADS category 1 Individualized dose optimization techniques were used for this CT. at 1731 Reported and signed by: Efrain Sellers MD Electronically Signed: Efrain Sellers MD at 17:29 EDT Tel , Service support , CC: Dr. Marybeth Thomas DO Extrusion Line Operator: Signed Marybeth Thomas DO Work Phone: Start: 09-13-2019 End: 09-14-2019 Abdomen Single View Comments: See Note; NOTES: [facility] Imaging Services [address] [place] [address] Abdomen Single View MR#: [id number] Acct: [id number] Name: VISHAL CISNEROS Rep #: [id number] : 1955 M 64 From: Patrick Stanton MD PCP: Marybeth Thomas DO Status: REG CLI Study: Abdomen Single View Date of Exam: 09/13/19 Exam# [id number] Ordering Dr: Dean Castillo MD STUDY: X-RAY - ABDOMEN/PELVIS REASON FOR EXAM: Male, 64 years old. TOOK OUT KIDNEY ON RIGHT SIDE. STINT WAS PUT IN X LAST WEEK. TECHNIQUE: Single AP view of the abdomen / pelvis. COMPARISON: FINDINGS: Normal visualized lung bases. There is an unremarkable bowel gas pattern. There is no demonstrated free abdominal air. Interval placement of right ureteral stent. No definite ureteral stone. Normal soft tissue structures. Normal visualized osseous structures. RAD/Abdomen Single View IMPRESSION: Interval placement of right ureteral stent. No definite ureteral stone. Electronically Signed: Patrick Stanton MD at 10:12 EST Tel , Service support , CC: Dean Castillo MD; Marybeth Thomas DO Extrusion Line Operator: Signed Marybeth Thomas Start: 12-14-2018 End: 12-15-2018 Chest PA and Lateral Comments: See Note; NOTES: [facility] Imaging Services [address] [place] [address] Chest PA and Lateral MR#: [id number] Acct: [id number] Name: VISHAL CISNEROS Rep #: [id number] : 1955 M 63 From: Rafa Saha DO PCP: Marybeth Thomas DO Status: REG CLI Study: Chest PA and Lateral Date of Exam: 12/14/18 Exam# [id number] Ordering Dr: Marybeth Thomas DO STUDY: X-RAY CHEST REASON FOR EXAM: Male, 63 years old. Cough. TECHNIQUE: PA and lateral views of the chest. COMPARISON: None. FINDINGS: The lungs are clear and expanded. There is no demonstrated pleural abnormality. Normal size heart. Normal mediastinum and sundeep. Normal visualized pulmonary arteries. Normal visualized aortic arch and descending thoracic aorta. Normal visualized thoracic spine. Normal visualized ribs, clavicles, and shoulders. There is no demonstrated abnormality of the visualized soft tissue structures of the upper abdomen. RAD/Chest PA and Lateral IMPRESSION: No evidence of acute process or focal airspace disease. Electronically Signed: Rafa Saha DO at 9:28 EDT , Service support , CC: Marybeth Thomas DO Extrusion Line Operator: Signed Marybeth Thomas Work Phone: Start: 11-24-2017 End: 11-24-2017 Surgery Visit Report Comments: See Note; NOTES: [facility] [address] [place] [address]. [address] [place], [place] [address] OFFICE VISIT Date of Service: 11/24/17 MR#: [id number] Acct: [id number] Name: VISHAL CISNEROS Rep #: [id number] : 1955 Provider: Darius Wang MD Age/Sex: 62/M Location: [facility] Status: Signed Intake Vital Signs11/24/17 Height 5 ft 10 in 11/24/17 Weight: 154 lb Intake Visit Reasons: GALLBLADDER POLYP [employer] Required: No Is patient in pain?: No Allergies hydrocodone bitartrate [From Vicodin] Adverse Reaction (Verified 11/24/17 08:10) Other Medications propranolol 40 mg tablet 40 mg PO BID 11/24/17 [History Confirmed 11/24/17] simvastatin 40 mg tablet 40 mg PO QPM 11/24/17 [History Confirmed 11/24/17] trihexyphenidyl 2 mg tablet 2 mg PO TID tab 11/24/17 [History Confirmed 11/24/17] [facility] History Anxiety (Acute) Back pain (Acute) Eczema (Acute) GERD (gastroesophageal reflux disease) (Acute) Gallbladder polyp (Acute) History of kidney stones (Acute) Hypercholesterolemia (Acute) RUQ pain (Acute) Vitamin D deficiency (Acute) Hypertension (Chronic) Surgical History history of surgery for kidney stones (Acute) Family History Mother Breast cancer Father Heart disease Daughter Thyroid disorder Social History Smoking Status: Former smoker quit status: considering quitting alcohol intake: never substance use type: does not use HPI HPI HPI: VISHAL CISNEROS, is a 62 M who presents to the office today for evaluation of right upper quadrant right flank pain as well as nausea. Patient was seen by his primary care physician with a 2 day history of having increasing abdominal discomfort in the right upper quadrant right back area. For quite some time he is actually had a gnawing ache up in this area. He is also had a (half sick feeling) when he eats. Gallbladder ultrasound was obtained it [facility] on 11/18/2017. This came back showing a contracted gallbladder with the gallbladder wall measuring 3.3 mm. There is no sonographic Hanks sign. There is no pericholecystic fluid. There was a 2 mm gallbladder polyp. Pancreas looks normal and the common bile duct measured 4.8 mm in size. The right kidney had nephrolithiasis measuring 4 and 5 mm no signs of hydronephrosis. Patient has had kidney stone surgery in the past he believes both shockwave lithotripsy as well as a cystoscopy. Urinalysis was obtained on 11/14/2017. Which showed hemolyzed blood trace leukocyte esterase trace specific gravity was 1.030 it was negative for ketones and had a small amount of bilirubin in it. It was nitrate negative as well. His other lab work showed liver function test to be within normal limits as well as a normal lipase. Patient states that the foods that make him feel worse or definitely [place] fried chicken. He always has nausea and vomiting when he eats this. ROS General General: No weight change, appetite, fatigue, colon cancer, breast cancer or weakness HEENT HEENT: No difficulty swallowing, eye injury, eye surgery, swollen glands or hoarseness Endo Endocrine: No thyroid disease, diabetes mellitus, thyroid cancer, Hair loss, heat intolerance or cold intolerance Skin Skin: No rash or changing moles Breast Breast: No left breast lump, right breast lump, nipple discharge, breast pain, abnormal mammogram, abnormal US or breast enlargement Musc Musculoskeletal: Yes back problems; no arthritis, rheumatoid arthritis, gout or joint pain Cardio Cardiovascular: No murmur, pacemaker, heart disease, atrial fibrillation, high blood pressure, heart attack, heart stent, palpitations, shortness of breat with exertion or chest pain Psych Psychiatric: Yes anxiety; no depression or hearing voices Resp Respiratory: No shortness of breath, No sleep apnea, No cough, No COPD, No asthma, No emphysema, No wheezing Gastro Gastrointestinal: Yes abdominal pain, No nausea or vomiting, No diarrhea, No constipation, No blood in stool, No acid reflux, No hemorrhoids, No ulcers, Yes gallbladder problem, No black,tarry stools Agustin Hematologic: No blood thinners, No blood disorders, No bleeding, No anemia, No blood clots Neuro Neurologic: No system reviewed and no additional complaints, except as docu, No as per HPI, No abnormal walking, No abnormal hearing, No abnormal movements, No abnormal speech, No behavioral changes, No burning sensations, No confusion, No seizure-like activity, No unsteadiness, No dizziness, No localized weakness, No frequent falls, No headache(s), No lack of coordination, No loss of vision, No memory loss, No numbness, No other visual disturbances, No radiating pain, No restless legs, No sensory deficit, No fainting, No tingling, No tremor(s), No weakness, No other Exam Const General: well developed, no acute distress, well hydrated Orientation: oriented to person, oriented to place, oriented to time [facility] Head: normocephalic, atraumatic Ears: external ears normal Mouth: moist mucous membranes Eyes Sclera: sclerae normal Pupils: normal by confrontation Neck Neck: no lymphadenopathy noted Neck mass: No Thyroid: symmetrical, thyroid normal Chest Chest palpation AND inspection: normal inspection of the chest Breast Palpation: No nipple discharge Resp Effort AND Inspection: normal respiratory effort Auscultation: clear to auscultation bilaterally Percussion: percussion normal Cardio Rate: regular rate Rhythm: regular rhythm Heart Sounds: no murmurs GI Palpation: soft, tender, no masses, no hepatosplenomegaly Auscultation: normal bowel sounds Rectal Exam: other Other: Rectal exam deferred. Extrem General: no clubbing, cyanosis or edema, normal to inspection Assessment AND Plan Problems 1. Gall bladder polyp K82.4 2. Abdominal pain, RUQ R10.11 3. Nausea R11.0 Plan The patient would like to see his urologist to review all of his labs. He is concerned that although this does not feel like his classic type of kidney stone pain he is concerned that he might develop symptomatic kidney stones if we were to remove his gallbladder. I believe that the patient's discomfort is related to his gallbladder. Although the ultrasound only shows a gallbladder polyp in my experience in the past most likely polyps like this are probably small gallstones that are non-shadowing in nature. I believe that he would benefit from a laparoscopic cholecystectomy. However prior to this we will obtain a urology consult to make sure that his kidney stones that he has on the right side do not need to be treated. Once he is seen his urologist and no further urologic workup is needed my plan is to perform a laparoscopic cholecystectomy. Reviewed the anatomy with the patient and discussed the procedure: laparoscopic cholecystectomy with possible cholangiograms, possible open. Review risks including but not limited to bleeding, infection, hernia, bile leak, retained gallstones requiring another procedure ERCP- Endoscopic Retrograde Cholangiopancreatography, injury to another organ (bile ducts, common bile duct, small bowel, etc.) and conversion to an open procedure. All questions were answered. Medications Discontinued: oxycodone-acetaminophen 5-325 mg Discontinued Reason: Order1 tab PO Q4H PRN PRN Pain Completed Coding Level of Care Code Off vis,new,level 3 Diagnoses Gall bladder polyp K82.4 Abdominal pain, RUQ R10.11 Nausea R11.0 11/24/17 0820 <Electronically signed by Darius Wang MD> Date Darius Wang MD Cosigner Signature: Date (if applicable) CC: BUHR DRESSERBerlin Del Angel; Dean Castillo MD; Marybeth aJrrellmohsen Robbinson Start: 11-18-2017 End: 11-19-2017 Gallbladder Comments: See Note; NOTES: [facility] Imaging Services [address] [place] [address] Gallbladder MR#: [id number] Acct: [id number] Name: VISHAL CISNEROS Rep #: [id number] : 1955 M 62 From: Thaddeus Recio DO PCP: Marybeth Thomas DO Status: REG CLI Study: Gallbladder Date of Exam: 11/18/17 Exam# [id number] Ordering Dr: Pilar Del Angel BUHR DRESSER-C STUDY: ABDOMINAL ULTRASOUND - RIGHT UPPER QUADRANT REASON FOR VISIT: Male, 62 years old. Right upper quadrant pain x2 days TECHNIQUE: Ultrasound evaluation of the right upper quadrant was performed with real-time and static holland-scale imaging. TECHNICAL QUALITY: Limited. Examination limited by bowel gas. COMPARISON: None. FINDINGS: Liver: The liver measures 15.5 cm. There is increased echogenicity consistent with fatty infiltration. The bile ducts are within normal limits. There is hepatic color flow. The direction of portal flow is hepatopetal. There is no demonstrated mass lesion. Gallbladder: There is a contracted gallbladder. The gallbladder wall measures 3.3 mm. There is a negative sonographic Hanks's sign. There is no pericholecystic fluid. There is a small 2mm gallbladder polyp. Common Bile Duct (C.B.D.): The common bile duct measures 4.8 mm. Pancreas: Normal size of the head, body and tail of the pancreas. There is normal echogenicity of the pancreas. There is no demonstrated pancreatic mass or cyst. Right Kidney: Normal size of the right kidney. The right kidney measures 9.6 cm. Normal renal cortex. The right cortex measures 1.7 cm. There is no demonstrated renal mass or cyst. There is no right hydronephrosis. Nonobstructing right nephrolithiasis measuring 4 mm and 5 mm. US/Gallbladder IMPRESSION: Small gallbladder polyp without signs of acute cholecystitis. Punctate nonobstructing right nephrolithiasis. Mildly fatty liver. Electronically Signed: Thaddeus RecioDO at 9:43 EDT Tel , Service support , CC: JACOB Del Angel; Marybeth Thomas DO Extrusion Line Operator: Signed Pilar Del Angel Start: 10-15-2014 End: 10-17-2014 Abdomen Single View Comments: See Note; NOTES: [facility] Imaging Services [address] [place] [address] Radiology Report MR#: [id number] Acct: [id number] Name: VISHAL CISNEROS Rep #: [id number] : 1955 M 59 From: Arturo Bullard DO PCP: Beryl Fermin DO Status: REG CLI Study: Abdomen Single View Date of Exam: 10/15/14 Exam# [id number] Ordering Dr: Dean Castillo MD STUDY: X-RAY - ABDOMEN/PELVIS REASON FOR EXAM: Male, 59 years old. Kidney stones. TECHNIQUE: Single AP view of the abdomen / pelvis. COMPARISON: April 02, 2014. FINDINGS: Normal visualized lung bases. Is nonspecific bowel gas pattern. Air and feces is seen throughout nondistended colon. There is air in a nondilated bowel in the left upper quadrant. There is no demonstrated free abdominal air. The visualized liver, spleen and kidneys are grossly normal in size and morphology. There are no suspicious calcifications. Normal soft tissue structures. There is stable degenerative changes of the lumbar spine. IMPRESSION: No acute intra-abdominal process. Electronically Signed: Arturo Bullard DO at 9:45 EDT Tel [phone], Service support [phone], RAD/Abdomen Single View IMPRESSION: No acute intra-abdominal process. Electronically Signed: Arturo Bullard DO at 9:45 EDT Tel [phone], Service support [phone], CC: Beryl Fermin DO; Dean Castillo MD Extrusion Line Operator: Signed Marybeth Thomas Start: 04-02-2014 End: 04-03-2014 Abdomen Single View Comments: See Note; NOTES: [facility] Imaging Services [address] [place] [address] Radiology Report MR#: [id number] Acct: [id number] Name: VISHAL CISNEROS Rep #: [id number] : 1955 M 59 From: Oscar Molina MD PCP: Beryl Fermin DO Status: REG CLI Study: Abdomen Single View Date of Exam: 04/02/14 Exam# [id number] Ordering Dr: Dean Castillo MD STUDY: X-RAY - ABDOMEN/PELVIS REASON FOR EXAM: Male, 59 years old. Right kidney stones. TECHNIQUE: Single AP view of the abdomen / pelvis. COMPARISON: Comparison is made with prior study dated March 22, 2014. FINDINGS: There is a moderate amount of colonic fecal material. The visualized liver, spleen and kidneys are grossly normal in size and morphology. Normal soft tissue structures. There are mild degenerative changes of the visualized lumbar spine. IMPRESSION: Moderate amount of fecal material is seen in the colon. Electronically Signed: Oscar Molina MD at 15:22 EDT Tel [phone], Service support [phone], CC: Beryl Fermin DO; Dean Castillo MD Extrusion Line Operator: Signed Selene Castillo [facility] Work Phone: Start: 03-23-2014 End: 03-23-2014 Operative Report Comments: See Note; NOTES: [facility] Medical Records Department [address] [place] [address] Operative Report MR#: [id number] Acct: [id number] Name: VISHAL CISNEROS Rep #: [id number] : 1955 59 From: Dean Castillo MD PCP: Beryl Fermin DO Status: [facility] DATE OF SERVICE: 03/22/2014 DATE OF SERVICE: March 22, 2014. PREOPERATIVE DIAGNOSIS: Right kidney stone. POSTOPERATIVE DIAGNOSIS: Right kidney stone. PROCEDURE: Right extracorporeal shockwave lithotripsy. SURGEON: Dean Castillo M.D. ANESTHESIA: General. COMPLICATIONS: None. FINDINGS: A stone in the right renal pelvis, which was treated with shockwave lithotripsy. INDICATIONS: A 59-year-old male presented to the office with right flank pain. A KUB and CAT scan were done demonstrated a stone in the right renal pelvis causing intermittent obstruction and pain. Counseled the patient on the options of treatment recommended we proceed with shockwave lithotripsy to break up the stone, understands the rare risk of having do a second procedure. ____ possibly having to place a stent. PROCEDURE NOTE: The patient was taken back to the operating room. After smooth induction of general anesthesia, he was placed supine on the lithotripter table. The stone in the right kidney was localized under fluoroscopy and then we put the stone in the F2 focal point of the F2 lithotripter machine, we applied 2500 shockwaves to the stone at the end of the treatment, there was no visible stones left under fluoroscopy, appeared to be a successful fragmentation. Therefore, no stent was placed. The patient's anesthetic is currently being reversed. I will see him back in a few weeks with a KUB. Dean Castillo MD T: NTS JOB: [id number] 03/23/14 1202 <Electronically signed by Dean Castillo MD> Date Dean Castillo MD CC: Beryl Fermin DO; Dean Castillo MD Date Dictated: 03/22/141303 Date Transcribed: 03/22/141303 Extrusion Line Operator: Signed Selene Castillo [facility] Work Phone: Start: 03-22-2014 End: 03-22-2014 Operative Report Comments: See Note; NOTES: [facility] Medical Records Department [address] [place] [address] Operative Report 03/22/14 1301 MR#: [id number] Acct: [id number] Name: VISHAL CISNEROS Rep #: [id number] : 1955 59 From: Dean Castillo MD PCP: Beryl Fermin DO Status: REG SDC Y Location: [place] [address] Report of Operation Date of Procedure: 03/22/14 Pre-Operative Diagnosis: right renal calculi Post-Operative Diagnosis: same Surgery/Procedure Performed:: right ESWL Type of Anesthesia:: General Anesthesiologist: Moshe Zaragoza Specimen's removed: none Drains: none - Admit VTE Documentation VTE Present on Admission: Yes VTE Mechan Device Prophylaxis: Calf SCD-Sequential Compression Device VTE Pharm Prophylaxis ordered?: No Reason prophylaxis not ordered:: Medical contraindication 03/22/14 130 <Electronically signed by Dean Castillo MD> Date Dean Castillo MD CC: Beryl Fermin DO; Dean Castillo MD Signed Selene Castillo [facility] Work Phone: Start: 03-22-2014 End: 03-22-2014 Discharge Instruction Comments: See Note; NOTES: [facility] Medical Records Department [address] [place] [address] Instructions for Home/Discharge Instructions 03/22/14 1223 MR#: [id number] Acct: [id number] Name: VISHAL CISNEROS Rep #: [id number] : 1955 59 From: Dean Castillo MD PCP: Beryl Fermin DO Status: REG SDC Discharge Diet: No Restrictions Discharge Activity: Return to Normal Activity, May Not Drive - for 2 days. Additional Activity Instructions:: Please be aware that pain medications may cause nausea. You should typically eat light foods as you take your pain medication. Pain medication may cause constipation, if this is a problem for you, please discuss with your doctor. Allergies/Adverse Reactions: Allergies hydrocodone bitartrate [From Vicodin] Adverse Reaction (Verified 03/15/14 11:00) Other Medications to take at Discharge Omeprazole [Prilosec] 20 mg PO DAILY Simvastatin [Zocor] 40 mg PO QHS Oxycodone HCl/Acetaminophen [Percocet 5/325] 1 tablet PO Q4H PRN PRN #14 tablet The following prescriptions were given: Oxycodone HCl/Acetaminophen [Percocet 5/325] 1 tablet PO Q4H PRN PRN #14 tablet PRN Reason: Pain Please Follow Up With: Dean Castillo When: in 2 weeks, please call to make an appointment, with an xray 03/22/14 1224 <Electronically signed by Dean Castillo MD> Date Dean Castillo MD CC: Beryl Butterfield [facility] Work Phone: Start: 03-22-2014 End: 03-22-2014 Abdomen Single View Comments: See Note; NOTES: [facility] Imaging Services [address] [place] [address] Radiology Report MR#: [id number] Acct: [id number] Name: VISHAL CISNEROS Rep #: [id number] : 1955 M 59 From: Arturo Bullard DO PCP: Beryl Fermin DO Status: [facility] Study: Abdomen Single View Date of Exam: 03/22/14 Exam# [id number] Ordering Dr: Dean Castillo MD STUDY: X-RAY - ABDOMEN/PELVIS REASON FOR EXAM: Male, 59 years old. Right-sided stones. Pre-ESWL. TECHNIQUE: Single AP view of the abdomen / pelvis. COMPARISON: CT of the abdomen and pelvis, March 16, 2014 FINDINGS: Lung bases were not included There is a nonspecific bowel gas pattern with air and feces throughout the colon as well as air in mildly dilated small bowel loops in the upper abdomen. There is no demonstrated free abdominal air. There is no evidence of solid organ abnormality. The kidneys are obscured by the overlying bowel gas. No visualized calcifications are seen. Normal soft tissue structures. Normal visualized osseous structures. IMPRESSION: Question mild ileus. This obscures the visualization of the right renal calcifications. Electronically Signed: Arturo Bullard DO at 16:17 EDT Tel [phone], Service support [phone], RAD/Abdomen Single View IMPRESSION: Question mild ileus. This obscures the visualization of the right renal calcifications. Electronically Signed: Arturo Bullard DO at 16:17 EDT Tel [phone], Service support [phone], CC: Beryl Fermin DO; Dean Castillo MD Extrusion Line Operator: Signed Selene Castillo [facility] Work Phone: Start: 03-18-2014 End: 03-18-2014 12 lead ECG Comments: See Note; NOTES: [facility] Cardiovascular Services [address] [place] [address] [place] [facility] [place] 03/15/14 1015 MR#: [id number] Acct: [id number] Name: VISHAL CISNEROS Rep #: [id number] : 1955 59 From: Carlos Alberto Jackson MD Attending Dr: Dean Castillo MD Status: [place] [facility] [place] Ordering Dr: Dean Castillo MD Date: 03/15/14 [place] [facility] [place] Sex: M C Admitted: Test Reason : Blood Pressure : / mmHG Vent. Rate : 084 BPM Atrial Rate : 084 BPM P-R Int : 138 ms QRS Dur : 076 ms QT Int : 358 ms P-R-T Axes : 006 004 020 degrees QTc Int : 423 ms Normal sinus rhythm Normal ECG Confirmed by RAFAELA GABRIEL, CARLOS ALBERTO ([id number]), features editor LORRAINE KILLIAN ([id number]) on 2013 1:34:28 PM Referred By: ORLANDO CASTILLO Confirmed By:CARLOS ALBERTO JACKSON MD 03/18/14 1334 Date Carlos Alberto Jackson MD CC: Beryl Fermin DO; Carlos Alberto Jackson MD Date Dictated: 03/15/14 1015 Date Transcribed: 03/15/14 1015 Extrusion Line Operator: Signed Marybeth Thomas Start: 03-16-2014 End: 03-17-2014 Abdomen/Pelvis without Cont Comments: See Note; NOTES: [facility] Imaging Services [address] [place] [address] CAT Scan Report MR#: [id number] Acct: [id number] Name: VISHAL CISNEROS Rep #: [id number] : 1955 M 59 From: Kirby Carr MD PCP: Beryl Fermin DO Status: REG CLI Study: Abdomen/Pelvis without Cont Date of Exam: 03/16/14 Exam# [id number] Ordering Dr: Dean Castillo MD STUDY: CT ABDOMEN AND PELVIS WITHOUT CONTRAST REASON FOR EXAM: Male, 59 years old. Hematuria times months. Right flank pain. RADIATION DOSAGE (If Supplied By Facility): CTDIvol = ( 8.20 ) mGy, DLP = ( 421.74 ) mGycm TECHNIQUE: Transaxial images were obtained from the dome of the diaphragm to the symphysis pubis without oral contrast, and without intravenous contrast. Sagittal and coronal images were reconstructed. COMPARISON: CT abdomen and pelvis 10/20/12. FINDINGS: The visualized lung bases are unremarkable. The visualized portions of the heart are within normal limits. Normal liver. Redemonstration of a 3.5 mm gallstone. Normal spleen. Normal pancreas. Normal bilateral adrenal glands. Mild right hydronephrosis secondary to a 6 x 3.6 mm right renal pelvic calculus. This probably represents a ball valve mechanism of intermittent obstruction. There is also a 2 mm right lower pole renal calculus. Normal left kidney. Normal visualized stomach. Normal small intestine. Normal colon. Redemonstration of multiple small appendicoliths, largest measuring 2.5 mm. No evidence of an acute appendicitis. There is diffuse atherosclerotic calcification of the abdominal aorta, without a demonstrated aneurysm. Normal inferior vena cava. Normal retroperitoneum. Normal urinary bladder. There are prostatic calcifications. There is a small umbilical hernia containing fat. Normal osseous structures. IMPRESSION: Mild right hydronephrosis secondary to a 6 x 3.6 mm right renal pelvic calculus. This most likely a ball valve mechanism of intermittent obstruction. Nonobstructing right nephrolithiasis. Redemonstrated cholelithiasis, umbilical hernia and appendicoliths. Electronically Signed: Kirby Crar MD at 23:58 EDT , Service support [phone], CC: Beryl Fermin DO; Dean Castillo MD Extrusion Line Operator: Signed Selene Castillo [facility] Work Phone: Start: 03-11-2014 End: 03-11-2014 Abdomen Single View Comments: See Note; NOTES: [facility] Imaging Services [address] [place] [address] Radiology Report MR#: [id number] Acct: [id number] Name: VISHAL CISNEROS Rep #: [id number] : 1955 M 59 From: Arturo Bullard DO PCP: Beryl Fermin DO Status: REG CLI Study: Abdomen Single View Date of Exam: 03/11/14 Exam# [id number] Ordering Dr: Dean Castillo MD STUDY: X-RAY - ABDOMEN/PELVIS REASON FOR EXAM: Male, 59 years old. Kidney stone. TECHNIQUE: Two AP supine views of the abdomen and pelvis. COMPARISON: None. FINDINGS: Normal visualized lung bases. There is an unremarkable bowel gas pattern. And feces are seen throughout the nondistended colon. There is no demonstrated free abdominal air. There are 4 small densities overlying the undersigned of the cecum suggesting prior appendectomy. The visualized liver, spleen and kidneys are grossly normal in size and morphology. There is no evidence of renal ureteral or bladder calculi. Calcifications are seen in the prostate. There are minimal degenerative changes of the lower lumbar spine. IMPRESSION: No evidence of renal calculi or acute intra-abdominal process. Electronically Signed: Arturo Bullard DO at 18:51 EDT Tel [phone], Service support [phone], CC: Beryl Fermin DO; Dean Castillo MD Extrusion Line Operator: Signed Selene Castillo [facility] Work Phone: Plan of Treatment Date Care Activity Detail Author Start: 03-25-2025 COVID-19 Vaccine ( season) COVID-19 Vaccine ( season) [facility] Start: 03-25-2025 Influenza vaccination Influenza Vacc ine (#1) [facility] Start: 02-13-2025 End: 02-13-2025 Patient encounter procedure 02/13/2025 10:00 AM EDT Office Visit [facility] [address] [facility] [address] [place] [address] Christine Tesfaye MD [address] [facility] [address] [place], [place] [id number] [facility] Start: 03-25-2024 Influenza vaccination S [facility] Start: 03-16-2024 End: 03-16-2024 Patient encounter procedure 03/16/2024 9:00 AM EDT Office Visit [facility] [address] [place] [id number] Christine Tesfyae MD [address] [place] [address] [facility] Start: 12-08-2023 End: 12-08-2023 Patient encounter procedure 12/08/2023 10:00 AM EDT Office Visit [facility] [address] [place] [id number] Christine Tesfaye MD [address] [facility] [address] [place] [address] [facility] Start: 09-08-2023 End: 09-08-2023 Telemedicine consultation with patient 09/08/2023 7:30 AM EST Telemedicine [facility] [address] [facility] [address] [place] [id number] Christine Tesfaye MD [address] [facility] [address] [place] [address] [facility] Start: 06-09-2023 End: 06-09-2023 Telemedicine consultation with patient 06/09/2023 7:30 AM EST Telemedicine [facility] [address] [facility] [address] [place] [id number] Christine Tesfaye MD [address] [facility] [address] [place] [address] [facility] Start: 03-25-2023 COVID-19 Vaccine ( season) COVID-19 Vaccine ( season) [facility] Start: 03-25-2023 Influenza vaccination Influenza Vacc ine (#1) [facility] Start: 03-22-2023 End: 03-22-2023 Telemedicine consultation with patient 03/22/2023 7:30 AM EDT Telemedicine [facility] [address] [facility] [address] [place] [id number] Christine Tesfaye MD [address] [facility] [address] [place] [address] [facility] Start: 01-31-2023 Procedure Education [facility]; [facility] Work Phone: Start: 01-31-2023 Provider Instruction s for Treatment [facility]; [facility] Work Phone: Start: 01-20-2023 Procedure Education [facility]; [facility] Work Phone: Start: 01-20-2023 Provider Instruction s for Treatment [facility]; [facility] Work Phone: Start: 01-06-2023 Procedure Education [facility]; [facility] Work Phone: Start: 01-06-2023 Provider Instruction s for Treatment [facility]; [facility] Work Phone: Start: 12-31-2022 End: 01-01-2024 Ceruloplasmin Ceruloplasmin 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 Expected: 12/31/2022 (Approximate), Expires: 01/01/2024 [facility] Comment on above: Expected: 12/31/2022 (Approximate), Expires: 01/01/2024 Start: 12-31-2022 End: 01-01-2024 Copper, serum Copper, serum 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 Expected: 12/31/2022 (Approximate), Expires: 01/01/2024 [facility] Comment on above: Expected: 12/31/2022 (Approximate), Expires: 01/01/2024 Start: 12-31-2022 End: 01-01-2024 Hepatic function 2000 panel - Serum or Plasma Hepatic function panel 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 Expected: 12/31/2022 (Approximate), Expires: 01/01/2024 [facility] Work Phone: Comment on above: Expected: 12/31/2022 (Approximate), Expires: 01/01/2024 Start: 12-31-2022 End: 12-31-2022 Patient encounter procedure 12/31/2022 Office Visit Neurology Christine Tesfaye MD [address] [place] [address] [facility] Start: 12-23-2022 Procedure Education [facility]; [facility] Work Phone: Start: 12-23-2022 Provider Instruction s for Treatment [facility]; [facility] Work Phone: Start: 12-23-2022 25 hydroxy includes fractions if performed [facility]; [facility] Work Phone: Start: 12-23-2022 Blood count complete auto&auto difrntl wbc [facility]; [facility] Work Phone: Start: 12-23-2022 Urine albumin quantitative [facility]; [facility] Work Phone: Start: 12-23-2022 Comprehensive metabo lic panel [facility]; [facility] Work Phone: Start: 12-23-2022 Lipid panel [facility]; [facility] Work Phone: Start: 12-23-2022 Hemoglobin glycosyla judd a1c [facility]; [facility] Work Phone: Start: 08-25-2022 Blood count complete auto&auto difrntl wbc [facility]; [facility] Work Phone: Start: 08-25-2022 Urnls dip stick/tabl et reagent auto microscopy [facility]; [facility] Work Phone: Start: 08-20-2022 Procedure Education [facility]; [facility] Work Phone: Start: 08-20-2022 Provider Instruction s for Treatment [facility]; [facility] Work Phone: Start: 07-01-2022 Patient discharge [facility] Start: 07-01-2022 Inhalation therapy procedure [facility] Start: 06-30-2022 End: 06-30-2022 Following clinical pathway protocol [facility] Start: 06-30-2022 Application of intermittent pneumatic compression device [facility] Start: 06-30-2022 Admission procedure [facility] Start: 06-30-2022 Oxygen therapy [facility] Start: 06-30-2022 Anes xtrprtl lwr abd w/urinary tract rad prstect ANESTH REMOVAL OF PROSTATE [facility] Start: 06-30-2022 Inguinofem lmphadec supfc w/pel lmphadec REMOVE GROIN LYMPH NODES [facility] Start: 06-30-2022 Laps prostect retropubic rad w/nrv sparing robot LAPS SURG [id number] RPBIC RAD [facility] Start: 06-30-2022 Deep breathing and coughing exercises [facility] Start: 06-30-2022 Incentive spirometry [facility] Start: 06-30-2022 Measuring intake and output [facility] Start: 06-30-2022 Patient education [facility] Start: 06-30-2022 Provision of activit y privileges [facility] Start: 06-30-2022 Taking patient vital signs [facility] Start: 06-30-2022 Vital signs measurements [facility] Start: 06-30-2022 [facility] Start: 03-25-2022 Influenza vaccination Influenza Vacc ine (#1) [facility] Start: 02-01-2022 PSA TOTAL +%FREE [id number] (00273) [facility]; [facility] Work Phone: Start: 01-29-2022 Procedure Education [facility]; [facility] Work Phone: Start: 01-29-2022 Provider Instruction s for Treatment [facility]; [facility] Work Phone: Start: 01-29-2022 Assay of prostate specific antigen total [facility]; [facility] Work Phone: Start: 01-29-2022 25 hydroxy includes fractions if performed [facility]; [facility] Work Phone: Start: 01-29-2022 Gluc bld gluc mntr d ev cleared fda spec home use [facility]; [facility] Work Phone: Start: 10-21-2021 Procedure Education [facility]; [facility] Work Phone: Start: 10-21-2021 Provider Instruction s for Treatment [facility]; [facility] Work Phone: Start: 09-02-2021 COVID-19 Vaccine (4 - Booster for Moderna series) COVID-19 Vaccine (4 - Booster for Moderna series) [employer] [facility] Start: 09-02-2021 COVID-19 Vaccine (4 - Moderna series) COVID-19 Vaccine (4 - Moderna series) [facility] Start: 06-01-2021 Procedure Education [facility]; [facility] Work Phone: Start: 06-01-2021 Provider Instruction s for Treatment [facility]; [facility] Work Phone: Start: 04-06-2021 Procedure Education [facility]; [facility] Work Phone: Start: 04-06-2021 Provider Instruction s for Treatment [facility]; [facility] Work Phone: Start: 04-06-2021 Hepatitis c antibody Co [facility]; [facility] Work Phone: Start: 04-06-2021 Assay of thyroid stimulating hormone tsh [facility]; [facility] Work Phone: Start: 04-06-2021 Urnls dip stick/tabl et reagent auto microscopy [facility]; [facility] Work Phone: Start: 04-06-2021 Urine albumin quantitative [facility]; [facility] Work Phone: Start: 04-06-2021 Comprehensive metabo lic panel [facility]; [facility] Work Phone: Start: 04-06-2021 Lipid panel [facility]; [facility] Work Phone: Start: 04-06-2021 Blood count complete auto&auto difrntl wbc [facility]; [facility] Work Phone: Start: 03-25-2021 Influenza vaccination Flu vacc ine (Season Ended) [facility] Work Phone: Start: 01-19-2021 Procedure Education [facility]; [facility] Work Phone: Start: 01-19-2021 Provider Instruction s for Treatment [facility]; [facility] Work Phone: Start: 01-02-2021 End: 01-02-2021 Patient encounter procedure 01/02/2021 Office Visit Neurology Martha Guillory, COMPLAINT ADJUSTER - [employer] DIRECTOR [address] [place], [place] [id number] [facility] Start: 12-01-2020 Procedure Education [facility]; [facility] Work Phone: Start: 12-01-2020 Provider Instruction s for Treatment [facility]; [facility] Work Phone: Start: 12-01-2020 25 hydroxy includes fractions if performed CALCIFEDIOL (10090) [facility]; [facility] Work Phone: Start: 09-01-2020 Procedure Education [facility]; [facility] Work Phone: Start: 09-01-2020 Provider Instruction s for Treatment [facility]; [facility] Work Phone: Start: 09-01-2020 Assay of thyroid stimulating hormone tsh TSH (THYROID STIMULATING HORMONE) (65915) [facility]; [facility] Work Phone: Start: 09-01-2020 TSH Qn TSH (THYROID STIMULATING HORMONE) (61886) [facility]; [facility] Work Phone: Start: 09-01-2020 25 hydroxy includes fractions if performed CALCIFEDIOL (38044) [facility]; [facility] Work Phone: Start: 09-01-2020 Urine albumin quantitative MICROALBUMIN: CREATININE RATIO (02633) AND (42809) [facility]; [facility] Work Phone: Start: 09-01-2020 Comprehensive metabo lic panel METABOLIC PANEL, COMPREHENSIVE (29721) [facility]; [facility] Work Phone: Start: 09-01-2020 Lipoprotein blood qu an numbers & subclasses NMR Profile (63363) [facility]; [facility] Work Phone: Start: 09-01-2020 Blood count complete auto&auto difrntl wbc CBC with auto diff (40836) [facility]; [facility] Work Phone: Start: 09-01-2020 HbA1c (Bld) [Mass fraction] HGB A1C (63085) [facility]; [facility] Work Phone: Start: 09-01-2020 Hemoglobin glycosyla judd a1c HGB A1C (96654) [facility]; [facility] Work Phone: Start: 04-30-2020 Procedure Education [facility] Work Phone: Start: 04-30-2020 Provider Instruction s for Treatment [facility] Work Phone: Start: 04-30-2020 Lipoprotein blood qu an numbers & subclasses NMR Profile (27197) [facility] Work Phone: Start: 04-30-2020 25 hydroxy includes fractions if performed CALCIFEDIOL (44811) [facility] Work Phone: Start: 04-30-2020 TSH Qn TSH (43771) [facility] Work Phone: Start: 04-30-2020 Urnls dip stick/tabl et reagent auto microscopy URINALYSIS, W/ MICRO (70844) [facility] Work Phone: Start: 04-30-2020 Urine albumin quantitative MICROALBUMIN: CREATININE RATIO (01970) AND (61066) [facility] Work Phone: Start: 04-30-2020 Comprehensive metabo lic panel METABOLIC PANEL, COMPREHENSIVE (67348) [facility] Work Phone: Start: 04-30-2020 Blood count complete auto&auto difrntl wbc CBC W/AUTO DIFF WBC (69669) [facility] Work Phone: Start: 04-30-2020 Hepatic function panel [facility] Work Phone: Start: 01-28-2020 Procedure Education [facility] Work Phone: Start: 01-28-2020 Provider Instruction s for Treatment [facility] Work Phone: Start: 01-28-2020 Basic metabolic pane l calcium total Metabolic Panel, Basic (34641) [facility] Work Phone: Start: 01-09-2020 Hepatic function panel HEPATIC FUNCTION PANEL (05303) [facility] Work Phone: Start: 01-09-2020 Procedure Education [facility] Work Phone: Start: 01-09-2020 Provider Instruction s for Treatment [facility] Work Phone: Start: 12-27-2019 Procedure Education [facility] Work Phone: Start: 12-27-2019 Provider Instruction s for Treatment [facility] Work Phone: Start: 12-27-2019 Basic metabolic pane l calcium total [facility] Work Phone: Comment on above: do in 4weeks Start: 08-03-2019 Urine albumin quantitative [facility] Work Phone: Start: 08-02-2019 Procedure Education [facility] Work Phone: Start: 08-02-2019 Provider Instruction s for Treatment [facility] Work Phone: Start: 08-02-2019 Creatinine clearance Co [facility] Work Phone: Start: 03-29-2019 Procedure Education [facility] Work Phone: Start: 03-29-2019 Provider Instruction s for Treatment [facility] Work Phone: Start: 03-29-2019 25 hydroxy includes fractions if performed CALCIFIDIOL (98669) VIT D 25 [facility] Work Phone: Start: 03-29-2019 TSH Qn TSH (98370) [facility] Work Phone: Start: 03-29-2019 Urnls dip stick/tabl et reagent auto microscopy URINALYSIS, W/ MICRO (81775) [facility] Work Phone: Start: 03-29-2019 Urine albumin quantitative MICROALBUMIN: CREATININE RATIO (26996) AND (27183) [facility] Work Phone: Start: 03-29-2019 Comprehensive metabo lic panel METABOLIC PANEL, COMPREHENSIVE (58484) [facility] Work Phone: Start: 03-29-2019 Blood count complete auto&auto difrntl wbc CBC W/AUTO DIFF WBC (77840) [facility] Work Phone: Start: 03-29-2019 Lipoprotein blood qu an numbers & subclasses NMR Profile (61955) [facility] Work Phone: Start: 03-29-2019 HbA1c (Bld) [Mass fraction] HgA1C , Office (89457) [facility] Work Phone: Start: 03-29-2019 Glucose [Mass/Vol] Blood Gluco se , Office (64042) [facility] Work Phone: Start: 2019 Pneumococcal 65+ yea rs Vaccine (1 of 1 - PPSV23) Pneumococcal 65+ years Vaccine (1 of 1 - PPSV23) [facility] Work Phone: Start: 02-02-2019 Provider Instruction s for Treatment [facility] Work Phone: Start: 12-14-2018 Procedure Education [facility] Work Phone: Start: 12-14-2018 Provider Instruction s for Treatment [facility] Work Phone: Start: 11-30-2018 Procedure Education [facility] Work Phone: Start: 11-30-2018 Provider Instruction s for Treatment [facility] Work Phone: Start: 11-30-2018 Lipoprotein blood qu an numbers & subclasses [facility] Work Phone: Start: 11-30-2018 Protein mass conc NMR Profile (23721 ) [facility] Work Phone: Start: 11-30-2018 Hepatic function panel [facility] Work Phone: Start: 10-26-2018 Procedure Education [facility] Work Phone: Start: 10-26-2018 Provider Instruction s for Treatment [facility] Work Phone: Start: 10-26-2018 25 hydroxy includes fractions if performed CALCIFIDIOL (58537) VIT D 25 [facility] Work Phone: Start: 10-26-2018 Lipoprotein blood qu an numbers & subclasses [facility] Work Phone: Start: 10-26-2018 Hemoglobin A1c/Hemoglobin.total mass fraction (Bld) HGB A1C (58678) [facility] Work Phone: Start: 10-26-2018 Thyrotropin Qn TSH (THYROID STIMULATING HORMONE) (60278) [facility] Work Phone: Start: 10-26-2018 Urine albumin quantitative MICROALBUMIN: CREATININE RATIO (96220) AND (17744) [facility] Work Phone: Start: 10-26-2018 Comprehensive metabo lic panel METABOLIC PANEL, COMPREHENSIVE (24380) [facility] Work Phone: Start: 10-26-2018 Protein mass conc [facility] Work Phone: Start: 10-26-2018 Blood count complete auto&auto difrntl wbc CBC with auto diff (29223) [facility] Work Phone: Start: 10-13-2018 Assay of prostate specific antigen total [facility] Work Phone: Start: 10-13-2018 25 hydroxy includes fractions if performed [facility] Work Phone: Start: 10-13-2018 Assay of thyroid stimulating hormone tsh [facility]; [facility] Work Phone: Start: 10-13-2018 Thyrotropin Qn TSH (53004) [facility] Work Phone: Start: 10-13-2018 Urinalysis qual/semiquant except immunoassays [facility] Work Phone: Start: 10-13-2018 Blood count manual c ell count each [facility] Work Phone: Start: 10-13-2018 Comprehensive metabo lic panel [facility] Work Phone: Start: 10-13-2018 Lipoprotein blood qu an numbers & subclasses [facility] Work Phone: Start: 10-13-2018 Protein mass conc [facility] Work Phone: Start: 10-13-2018 Urine albumin quantitative [facility] Work Phone: Start: 11-14-2017 Patient Education [facility] Work Phone: Start: 11-14-2017 Procedure Education [facility] Work Phone: Start: 11-14-2017 Provider Instruction s for Treatment [facility] Work Phone: Start: 10-05-2017 Procedure Education [facility] Work Phone: Start: 10-05-2017 Provider Instruction s for Treatment [facility] Work Phone: Start: 10-05-2017 25 hydroxy includes fractions if performed [facility] Work Phone: Start: 10-05-2017 Assay of thyroid stimulating hormone tsh [facility]; [facility] Work Phone: Start: 10-05-2017 Thyrotropin Qn TSH (12840) [facility] Work Phone: Start: 10-05-2017 Urnls dip stick/tabl et reagent auto microscopy [facility] Work Phone: Start: 10-05-2017 Urine albumin quantitative [facility] Work Phone: Start: 10-05-2017 Comprehensive metabo lic panel [facility] Work Phone: Start: 10-05-2017 Lipid panel [facility] Work Phone: Start: 10-05-2017 Blood count complete auto&auto difrntl wbc [facility] Work Phone: Start: 03-24-2017 Assay of thyroid stimulating hormone tsh [facility]; [facility] Work Phone: Start: 03-24-2017 Thyrotropin Qn TSH (22389) [facility] Work Phone: Start: 03-24-2017 Urine albumin quantitative [facility] Work Phone: Start: 03-24-2017 Urinalysis qual/semiquant except immunoassays [facility] Work Phone: Start: 03-24-2017 Blood count manual c ell count each [facility] Work Phone: Start: 03-24-2017 Hemoglobin A1c/Hemoglobin.total mass fraction (Bld) HGB A1C (92115) [facility] Work Phone: Start: 03-24-2017 Hemoglobin glycosyla judd a1c [facility]; [facility] Work Phone: Start: 03-24-2017 Lipid panel [facility] Work Phone: Start: 03-24-2017 Assay of prostate specific antigen total [facility] Work Phone: Start: 03-24-2017 Protein mass conc PSA (PROSTAT E SPECIFIC ANTIGEN) (55856) [facility] Work Phone: Start: 03-24-2017 25 hydroxy includes fractions if performed [facility] Work Phone: Start: 03-24-2017 Comprehensive metabo lic panel [facility] Work Phone: Start: 03-19-2017 Pneumococcal Vaccine : 50+ Years (2 of 2 - PCV) Pneumococcal Vaccine: 50+ Years (2 of 2 - PCV) [employer] [facility] Start: 03-19-2017 Pneumococcal Vaccine : 65+ Years (2 - PCV) Pneumococcal Vaccine: 65+ Years (2 - PCV) [employer] [facility] Start: 03-19-2017 Pneumococcal Vaccine : 65+ Years (2 of 2 - PCV) Pneumococcal Vaccine: 65+ Years (2 of 2 - PCV) [facility] Start: 11-24-2016 Procedure Education [facility] Work Phone: Start: 11-24-2016 Provider Instruction s for Treatment [facility] Work Phone: Start: 07-21-2016 Patient Education [facility] Work Phone: Start: 07-21-2016 Procedure Education [facility] Work Phone: Start: 07-21-2016 Provider Instruction s for Treatment [facility] Work Phone: Start: 07-21-2016 25 hydroxy includes fractions if performed [facility] Work Phone: Start: 07-21-2016 Assay of thyroid stimulating hormone tsh [facility]; [facility] Work Phone: Start: 07-21-2016 Thyrotropin Qn TSH (65020) [facility] Work Phone: Start: 07-21-2016 Urnls dip stick/tabl et reagent auto microscopy [facility] Work Phone: Start: 07-21-2016 Urine albumin quantitative [facility] Work Phone: Start: 07-21-2016 Comprehensive metabo lic panel [facility] Work Phone: Start: 07-21-2016 Lipid panel [facility] Work Phone: Start: 07-21-2016 Blood count complete auto&auto difrntl wbc [facility] Work Phone: Start: 03-19-2016 Patient Education [facility] Work Phone: Start: 03-19-2016 Procedure Education [facility] Work Phone: Start: 03-19-2016 Provider Instruction s for Treatment [facility] Work Phone: Start: 03-19-2016 Blood occult fecal h gb deter ia qual feces 1-3 [facility] Work Phone: Start: 08-25-2015 Assay of prostate specific antigen total [facility] Work Phone: Start: 08-25-2015 Protein mass conc PSA (PROSTAT E SPECIFIC ANTIGEN) (V76.44) [facility] Work Phone: Start: 08-25-2015 Comprehensive metabo lic panel [facility] Work Phone: Start: 08-25-2015 Hemoglobin A1c/Hemoglobin.total mass fraction (Bld) Hemoglobin Glyclated (HGB A1C) (74030) [facility] Work Phone: Start: 08-25-2015 Hemoglobin glycosyla judd a1c [facility]; [facility] Work Phone: Start: 08-25-2015 Procedure Education [facility] Work Phone: Start: 10-01-2014 Procedure Education [facility] Work Phone: Start: 09-02-2014 Patient Education [facility] Work Phone: Start: 09-02-2014 Procedure Education [facility] Work Phone: Start: 09-02-2014 Urnls dip stick/tabl et reagent auto microscopy [facility] Work Phone: Start: 09-02-2014 Lipid panel [facility] Work Phone: Start: 09-02-2014 Comprehensive metabo lic panel [facility] Work Phone: Start: 03-25-2014 Assay of prostate specific antigen total [facility] Work Phone: Start: 03-25-2014 Protein mass conc PSA (PROSTAT E SPECIFIC ANTIGEN) (V76.44) [facility] Work Phone: Start: 03-25-2014 Blood count manual c ell count each [facility] Work Phone: Start: 03-25-2014 Comprehensive metabo lic panel [facility] Work Phone: Start: 03-25-2014 Lipid panel [facility] Work Phone: Start: 2014 Hepatitis B Vaccines (1 of 3 - Risk 3-dose series) Hepatitis B Vaccines (1 of 3 - Risk 3-dose series) [facility] Start: 2014 RSV Immunization age d 60 or older (1 - 1-dose 60+ series) RSV Immunization aged 60 or older (1 - 1-dose 60+ series) [facility] Start: 2014 RSV Immunization for Adults (1 - Risk 60-74 years 1-dose series) RSV Immunization for Adults (1 - Risk 60-74 years 1-dose series) [facility] Start: 10-08-2013 Assay of thyroid stimulating hormone tsh [facility] Work Phone: Start: 10-08-2013 Thyrotropin Qn TSH (13719) [facility] Work Phone: Start: 10-08-2013 Comprehensive metabo lic panel [facility] Work Phone: Start: 10-08-2013 Provider Instruction s for Treatment [facility] Work Phone: Start: 01-01-2013 Urine albumin quantitative [facility] Work Phone: Start: 01-01-2013 Comprehensive metabo lic panel [facility] Work Phone: Start: 01-01-2013 Lipid panel Comprehens [facility] Work Phone: Start: 10-31-2012 Patient Education Compr [facility] Work Phone: Start: 10-31-2012 Assay of prostate specific antigen total [facility] Work Phone: Start: 10-31-2012 Protein mass conc PSA (PROSTAT E SPECIFIC ANTIGEN) (V76.44) [facility] Work Phone: Start: 10-31-2012 Comprehensive metabo lic panel [facility] Work Phone: Start: 10-31-2012 Lipid panel [facility] Work Phone: Start: 10-23-2012 Renal function panel Co [facility] Work Phone: Start: 10-23-2012 Calculus quantitativ e chemical [facility] Work Phone: Start: 10-23-2012 Provider Instruction s for Treatment [facility] Work Phone: Start: 10-20-2012 Patient Education Compr [facility]ive [facility] Work Phone: Start: 07-14-2012 Patient Education Compr e[facility] Work Phone: Start: 07-14-2012 Provider Instruction s for Treatment [facility] Work Phone: Start: 07-14-2012 Blood count manual c ell count each [facility] Work Phone: Start: 06-21-2012 Assay of thyroid stimulating hormone tsh [facility]; [facility] Work Phone: Start: 06-21-2012 Thyrotropin Qn TSH (THYROID STIMULATING HORMONE) (49087) [facility] Work Phone: Start: 06-21-2012 Blood count manual c ell count each [facility] Work Phone: Start: 06-21-2012 Hepatic function panel [facility] Work Phone: Start: 06-21-2012 Lipid panel Comprehens [facility] Work Phone: Start: 06-21-2012 Comprehensive metabo lic panel [facility] Work Phone: Start: 11-22-2011 Provider Instruction s for Treatment [facility] Work Phone: Start: 05-26-2011 Provider Instruction s for Treatment [facility] Work Phone: Start: 05-26-2011 Lipid panel Comprehens [facility] Work Phone: Start: 05-26-2011 Comprehensive metabo lic panel [facility] Work Phone: Start: 05-12-2011 Assay of prostate specific antigen total [facility] Work Phone: Start: 05-12-2011 Protein mass conc PSA (PROSTAT E SPECIFIC ANTIGEN) (19252) [facility] Work Phone: Start: 05-12-2011 Blood count manual c ell count each [facility] Work Phone: Start: 05-12-2011 Urinalysis qual/semiquant except immunoassays [facility] Work Phone: Start: 05-12-2011 Assay of thyroid stimulating hormone tsh [facility]; [facility] Work Phone: Start: 05-12-2011 Thyrotropin Qn TSH (THYROID STIMULATING HORMONE) (94556) [facility] Work Phone: Start: 05-12-2011 Comprehensive metabo lic panel [facility] Work Phone: Start: 05-12-2011 Lipid panel [facility] Work Phone: Start: 03-09-2010 Provider Instruction s for Treatment [facility] Work Phone: Start: 01-05-2010 Lipid panel [facility] Work Phone: Start: 01-05-2010 Blood count manual c ell count each [facility] Work Phone: Start: 01-05-2010 Comprehensive metabo lic panel [facility] Work Phone: Start: 01-05-2010 Provider Instruction s for Treatment [facility] Work Phone: Start: 10-24-2009 Assay of prostate specific antigen total [facility] Work Phone: Start: 10-24-2009 Protein mass conc PSA (PROSTAT E SPECIFIC ANTIGEN) (V76.44) [facility] Work Phone: Start: 10-24-2009 Assay of thyroid stimulating hormone tsh [facility]; [facility] Work Phone: Start: 10-24-2009 Thyrotropin Qn TSH (72796) Comprehe nsive [facility] Work Phone: Start: 10-24-2009 Comprehensive metabo lic panel [facility] Work Phone: Start: 10-24-2009 Blood count manual c ell count each [facility] Work Phone: Start: 10-24-2009 Lipid panel [facility] Work Phone: Start: 10-24-2009 Hepatic function panel [facility] Work Phone: Start: 06-24-2009 Lipoprotein blood qu an numbers & subclasses [facility]; [facility] Work Phone: Start: 06-24-2009 Protein mass conc LIPOPROTEIN, BLD, BY NMR (32142) [facility] Work Phone: Start: 06-24-2009 Lipid panel [facility] Work Phone: Start: 05-19-2009 Comprehensive metabo lic panel [facility] Work Phone: Start: 05-19-2009 Lipid panel [facility] Work Phone: Start: 05-19-2009 Hepatic function panel [facility] Work Phone: Start: 05-06-2008 Hepatic function panel [facility] Work Phone: Start: 05-06-2008 Lipid panel [facility] Work Phone: Start: 05-06-2008 Provider Instruction s for Treatment [facility] Work Phone: Start: 07-20-2006 Provider Instruction s for Treatment [facility] Work Phone: Start: 07-20-2006 Lipid panel [facility] Work Phone: Start: 07-20-2006 Hepatic function panel [facility] Work Phone: Comment on above: 3 months Start: 04-22-2006 Provider Instruction s for Treatment [facility] Work Phone: Start: 04-22-2006 Lipid panel [facility] Work Phone: Comment on above: 3 months Start: 04-22-2006 Hepatic function panel [facility] Work Phone: Start: 02-06-2004 Screening for malign ant neoplasm of colon Colon cancer screen colonoscopy [facility] Work Phone: Start: 02-06-2004 Shingles Vaccine (1 of 2) Shingles Vaccine (1 of 2) [facility] Work Phone: Start: 02-06-2004 Zoster Vaccines (1 o f 2) Zoster Vaccines (1 of 2) [facility] Start: 1994 Diabetes screen Diabetes screen [facility] Work Phone: Start: 1973 DTaP/Tdap/Td vaccine (1 - Tdap) DTaP/Tdap/Td vaccine (1 - Tdap) [facility] Work Phone: Start: 1973 DTaP/Tdap/Td Vaccine s (1 - Tdap) DTaP/Tdap/Td Vaccines (1 - Tdap) [facility] Start: 1973 Hepatitis A Vaccines (1 of 2 - Risk 2-dose series) Hepatitis A Vaccines (1 of 2 - Risk 2-dose series) [facility] Start: 02-06-1972 Hepatitis C screening Hepatitis C Sc reening [facility] Start: 1966 Depression Screening Depression Scre ening [facility] Start: 02-06-1964 Lipid panel Lipid screen [facility] Work Phone: Start: 02-06-1960 Pneumococcal Vaccine : 65+ Years (1 - PCV) Pneumococcal Vaccine: 65+ Years (1 - PCV) [facility] Start: 1954 COVID-19 Vaccine (#1) COVID-19 Vacci ne (#1) [facility] Start: 1954 Abdominal aortic aneurysm screening AAA screen [facility] Work Phone: Start: 1954 Hepatitis B Vaccines (1 of 3 - 3-dose series) Hepatitis B Vaccines (1 of 3 - 3-dose series) [facility] Start: 1954 Hepatitis C screening Hepatitis C sc reen [facility] Work Phone: Start: 1954 Lipid panel Lipid Panel [facility] Start: 1954 Screening for malign ant neoplasm of colon [facility] Patient referral [facility] Work Phone: End: 11-20-2020 XR CERVICAL SPINE W OBLIQUES FLEXION AND EXTENSION XR CERVICAL SPINE W OBLIQUES FLEXION AND EXTENSION Imaging Routine Once for 1 Occurrences starting 11/20/2020 until 11/20/2020 [facility] Work Phone: Comment on above: Once for 1 Occurrenc es starting 11/20/2020 until 11/20/2020 XR CERVICAL SPINE W OBLIQUES FLEXION AND EXTENSION XR CERVICAL SPINE W OBLIQUES FLEXION AND EXTENSION Imaging Routine 11/20/2020 11:30 AM EDT [facility] Work Phone: [facility] Work Phone: [facility] Work Phone: [facility] Work Phone: [facility] Work Phone: [facility] Work Phone: [facility] Work Phone: [facility] Phone: [facility] Work Phone: [facility] Work Phone: [facility] Work Phone: [facility] Work Phone: [facility] Work Phone: [facility] Work Phone[facility] Work Phone: [facility] Work Phone: [facility] Work Phone: [facility] Work Phone: [facility] Work Phone: [facility] Work Phone: [facility] Work Phone: [facility] Work Phone: [facility] Work Phone[facility] Work Phone: [facility] Work Phone[facility] Work Phone: [facility] Work Phone: [facility] Work Phone: [facility] Work Phone: [facility] Work Phone: [facility] Work Phone: [facility] Work Phone: [facility] Work Phone: Immunizations Immunization Date Immunization Notes Care Provider [facility] 07-01-2022 influenza, injectabl e, quadrivalent, preservative free [facility] 07-01-2022 influenza, seasonal, injectable Dr. Marybeth Thomas Work Phone: [facility] 07-01-2022 influenza virus vaccine, unspecified formulation Christine Tesfaye MD Work Phone: [facility] 10-30-2020 COVID-19 (Moderna) Marybeth Thomas DO Work Phone: [facility]; [facility] Work Phone: 10-01-2020 COVID-19 (Moderna) Marybeth Thomas DO Work Phone: [facility]; [facility] Work Phone: 03-19-2016 pneumococcal polysaccharide vaccine, 23 valent Marybeth Thomas [facility] Work Phone: Comment on above: Site: Deltoid (Left) [id number] Payers Date Payer Category Payer Self-pay [id number] 2021 [employer] Maximo garcia [facility] - [facility] [place] BLUE CROSS [id number] 2021 Unknown 2019 Unknown [id number] 2016 Unknown [id number] 2015 Unknown [employer] [id number] 2015 Unknown [id number] 00 2013 Unknown [id number] 2010 Unknown [id number] 2009 Unknown [id number] 2005 Unknown [id number] 1954 Unknown [id number] Medicare MEDICARE A ONLY [id number] Unknown [id number] Unknown [id number] Unknown [id number] Unknown [id number] Social History Date Type Detail Facility Start: 12-31-2022 End: 03-16-2024 Alcohol Use Current every day smoker [facility] Work Phone: Comment on above: Occasional alcohol u se 6-8 [employer] Tobacco Use: Current every da y smoker. [facility] Work Phone: Comment on above: 1 pack Tobacco Use: Tobacco Use: [facility] Work Phone: Comment on above: 12 pack Start: 11-20-2020 End: 12-08-2023 Tobacco smoking status NHIS Current every day smoker [facility] Start: 11-20-2020 End: 12-08-2023 Tobacco use and exposure Never used [facility] Start: 11-20-2020 End: 03-16-2024 Alcohol intake Ex-drinker (finding) [facility] Work Phone: Start: 1955 Sex Assigned At Not on file [facility] [employer] Work Phone: Start: 09-06-2019 End: 07-01-2022 Tobacco smoking status NHIS Unknown if ever smoked [facility] Start: 09-06-2019 Cigarettes [facility] Start: 1955 Sex Assigned At Male [facility] Start: 12-31-2022 End: 03-16-2024 Gender identity Not on file [facility] Start: 12-21-2022 End: 03-22-2023 Exposure to SARS-CoV-2 (event) Not sure [facility] History of tobacco use Cigarette Smoker [facility] Start: 02-22-2022 Sex Male (finding) [facility] Medical Equipment Procedure Code Equipment Code Equipment Origin al Text Equipment Identifier Dates STENT,URETERAL 6 FR PIG 6X26 FDA Start: 09-07-2019 STENT,URETERAL 6 FR PIG 6X26 FDA Start: 09-07-2019 STENT,URETERAL 6 FR PIG 6X26 FDA Start: 09-07-2019 STENT,URETERAL 6 FR PIG 6X26 FDA Start: 09-07-2019 STENT,URETERAL 6 FR PIG 6X26 FDA Start: 09-07-2019 STENT,URETERAL 6 FR PIG 6X26 FDA Start: 09-07-2019 STENT,URETERAL 6 FR PIG 6X26 FDA Start: 09-07-2019 SEALANT,FLOSEAL HEMOSTATIC 5ML FDA Start: 06-30-2022 SEALANT,FLOSEAL HEMOSTATIC 5ML FDA Start: 06-30-2022 Ligation clip, synthetic polymer, non-bioabsorbable [id number] FDA Start: 06-30-2022 STENT,URETERAL 6 FR PIG 6X26 FDA Start: 09-07-2019 SEALANT,FLOSEAL HEMOSTATIC 5ML FDA Start: 06-30-2022 SEALANT,FLOSEAL HEMOSTATIC 5ML FDA Start: 06-30-2022 STENT,URETERAL 6 FR PIG 6X26 FDA Start: 09-07-2019 SEALANT,FLOSEAL HEMOSTATIC 5ML FDA Start: 06-30-2022 SEALANT,FLOSEAL HEMOSTATIC 5ML FDA Start: 06-30-2022 STENT,URETERAL 6 FR PIG 6X26 FDA Start: 09-07-2019 SEALANT,FLOSEAL HEMOSTATIC 5ML FDA Start: 06-30-2022 SEALANT,FLOSEAL HEMOSTATIC 5ML FDA Start: 06-30-2022 Goals Date Patient Goal Desired Activity /State Functional Status Date Assessment Result Facility 07-01-[address] [facility] Work Phone: 11-20-2020 LP-IR Score 70 [facility] Work Phone: Comment on above: INSULIN RESISTANCE Anabelle CARPENTER <--Insulin Sensitive Insulin Resistant--> Percentile in Reference PopulationInsulin Resistance ScoreLP-IR Score Low 25th 50th 75th High <27 27 45 63 >63LP-IR Score is inaccurate if patient is non-fasting. .The LP-IR score is a laboratory developed index that has beenassociated with insulin resistance and diabetes risk and should beused as one component of a physician's clinical assessment. Test(s) 648181-VFJ-S ; 791623-PZC-I; 538321-Kocuzhgybdeiv; 620081-Ahipfhzqvfg, Total; 797792-UEZ-S (Total); 029816-Couhd LDL-P; 542812-DBC Size; 826269-SZ-GG Scorewas developed and its performance characteristics determinedby [email or web address]. It has not been cleared or approved by the Foodand Drug Administration.PATIENT WAS FASTINGPERFORMED BY: BN [employer] [id number] BY: LabSportsBoardEssex County HospitalOugapp[address] [id number] 04-30-2020 LP[facility]IR [facility]; [facility] Work Phone: Comment on above: INSULIN RESISTANCE M PAULINE <--Insulin Sensitive Insulin Resistant--> Percentile in Reference PopulationInsulin Resistance ScoreLP-IR Score Low 25th 50th 75th High <27 27 45 63 >63LP-IR Score is inaccurate if patient is non-fasting. .The LP-IR score is a laboratory developed index that has beenassociated with insulin resistance and diabetes risk and should beused as one component of a physician's clinical assessment. Test(s) 286465-RYF-H ; 654714-SWF-G; 130512-Yifynnawbddgv; 647368-Neveoldycno, Total; 679340-NMS-N (Total); 891247-Xvyez LDL-P; 188401-SLJ Size; 832824-LO-CB Scorewas developed and its performance characteristics determinedby [employer]. It has not been cleared or approved by the Foodand Drug Administration.PATIENT WAS FASTINGPERFORMED BY: [employer] [address] [id number] BY: [employer] CorporationEssex County HospitalImryfo[address] [id number] 12-27-2019 LP-IR Score 72 [facility] Work Phone: Comment on above: INSULIN RESISTANCE Anabelle CARPENTER <--Insulin Sensitive Insulin Resistant--> Percentile in Reference PopulationInsulin Resistance ScoreLP-IR Score Low 25th 50th 75th High <27 27 45 63 >63LP-IR Score is inaccurate if patient is non-fasting. .The LP-IR score is a laboratory developed index that has beenassociated with insulin resistance and diabetes risk and should beused as one component of a physician's clinical assessment. Test(s) 328427-PJT-N ; 773971-SDT-S; 298189-HRN-I; 347004-Drlnzfquvjrot; 995401-Lbkqtshjixw, Total; 894605-CVC-I (Total);703353-Lgzrx LDL-P; 160193-TMH Size; 026582-CD-YD Scorewas developed and its performance characteristics determinedby [employer]. It has not been cleared or approved by the Foodand Drug Administration.PATIENT WAS FASTINGPERFORMED BY: [employer] [id number] [facility] [id number] BY: [employer] CorporationEssex County HospitalFzpmpo[address] [id number] 07-13-2019 LP-IR Score 77 [facility] Work Phone: Comment on above: INSULIN RESISTANCE M ARKER <--Insulin Sensitive Insulin Resistant--> Percentile in Reference PopulationInsulin Resistance ScoreLP-IR Score Low 25th 50th 75th High <27 27 45 63 >63LP-IR Score is inaccurate if patient is non-fasting. .The LP-IR score is a laboratory developed index that has beenassociated with insulin resistance and diabetes risk and should beused as one component of a physician's clinical assessment. Test(s) 806488-JGO-G ; 668343-HHZ-P; 853180-RZN-R; 816268-Pvjkeqmwqbtka; 708471-Kwlpthlwhdq, Total; 686598-VYS-B (Total);747840-Njtko LDL-P; 985708-RTE Size; 790958-MM-TW Scorewas developed and its performance characteristics determinedby [employer]. It has not been cleared or approved by the Foodand Drug Administration.PATIENT WAS FASTINGPERFORMED BY: [employer] Bdrsbhsqep8727 [facility] [id number] BY: [employer] [id number] [id number] 10-26-2018 LP-IR Score 84 [facility] Work Phone: Comment on above: INSULIN RESISTANCE M ARKER <--Insulin Sensitive Insulin Resistant--> Percentile in Reference PopulationInsulin Resistance ScoreLP-IR Score Low 25th 50th 75th High <27 27 45 63 >63LP-IR Score is inaccurate if patient is non-fasting. .The LP-IR score is a laboratory developed index that has beenassociated with insulin resistance and diabetes risk and should beused as one component of a physician's clinical assessment. TheLP-IR score listed above has not been cleared by the Food andDrug Administration. PATIENT WAS FASTINGP ERFORMED BY: [employer] [place] [address] [facility] [id number] BY: CAROLA [facility] [id number] [id number] Mental Status Date Assessment Result Facility 07-01-2022 Cognitive function Voice/Name Tez [facility] Work Phone: Clinical Notes 10-21-2021 to 05-31-2025 Telephone Encounter - Rissa Loomis MA - 05/31/2025 8:13 AM ESTTelephone Encounter - Rissa Loomis MA - 05/31/2025 8:13 AM ESTTelephone Encounter - Rissa Loomis MA - 05/30/2025 9:43 AM EST Note Date & Type Note Facility 05-31-2025 Telephone encounter Note Lm for patient to call the office back, patient is over due for a follow up. In order to refill medication he needs to come in for an appointment, please schedule when he calls back. [facility] 05-31-2025 Miscellaneous Notes Lm for patient to call the office back, patient is over due for a follow up. In order to refill medication he needs to come in for an appointment, please schedule when he calls back. Lm for patient to call the office back, patient is over due for a follow up. In order to refill medication he needs to come in for an appointment, please schedule when he calls back. Lm for patient to call the office back, patient is over due for a follow up. In order to refill medication he needs to come in for an appointment, please schedule when he calls back. Last ov- 03/16/24 Next ov- n/a documented in this encounter [facility] 05-30-2025 Telephone encounter Note Lm for patient to call the office back, patient is over due for a follow up. In order to refill medication he needs to come in for an appointment, please schedule when he calls back. [facility] 05-30-2025 Miscellaneous Notes Lm for patient to call the office back, patient is over due for a follow up. In order to refill medication he needs to come in for an appointment, please schedule when he calls back. Lm for patient to call the office back, patient is over due for a follow up. In order to refill medication he needs to come in for an appointment, please schedule when he calls back. Last ov- 03/16/24 Next ov- n/a documented in this encounter [facility] 05-29-2025 Telephone encounter Note Lm for patient to call the office back, patient is over due for a follow up. In order to refill medication he needs to come in for an appointment, please schedule when he calls back. [facility] 05-29-2025 Miscellaneous Notes Lm for patient to call the office back, patient is over due for a follow up. In order to refill medication he needs to come in for an appointment, please schedule when he calls back. Last ov- 03/16/24 Next ov- n/a documented in this encounter [facility] 05-29-2025 Telephone encounter Note Last ov- 03/16/24 Next ov- n/a [facility] 03-16-2024 History of Present illness Narrative Images from the original note were not included. [facility] [address] [place] [address] [facility] [address] Dept: [phone] Dept Loc: [phone] Visit type: Established Patient Reason for Visit: Follow-up and Spasms Assessment and Plan 1. Dystonic tremor - propranolol (Inderal) 60 MG tablet; Take 1 tablet (60 mg) by mouth 2 times daily., Starting Tue03/16/2024, Until Amber 06/14/2024, Normal 2. Spasmodic torticollis 3. Neurogenic claudication Subjective HPI: The patient returns for the spasmodic torticollis and the tremor. He is still having the inability to prevent his head form turning to his right. He has tremor in both hands when doing things with the hands, but not in any other situation. He reports that the samples of [place] did help. He thinks that it did help. He feels weak all over. He is having burning pain when walking or active in bilateral anterior thighs. No lower back pain, but some hip pain occassionally. If he stops the pain goes away very quickly. REVIEW OF SYSTEMS: Review of Systems Constitutional: Negative for appetite change, chills, diaphoresis, fever and unexpected weight change. HENT: Negative for dental problem and mouth sores. Eyes: Negative for discharge and itching. Respiratory: Negative for chest tightness. Cardiovascular: Negative for chest pain and leg swelling. Gastrointestinal: Negative for rectal pain and vomiting. Endocrine: Negative for polydipsia, polyphagia and polyuria. Genitourinary: Negative for decreased urine volume, flank pain and genital sores. Musculoskeletal: Negative for arthralgias. Skin: Negative for color change. Allergic/Immunologic: Negative for food allergies and immunocompromised state. Hematological: Negative for adenopathy. Does not bruise/bleed easily. Psychiatric/Behavioral: Negative for agitation, behavioral problems, decreased concentration, sleep disturbance and suicidal ideas. Allergies Allergen Reactions 5-Hydroxytryptamine [Serotonin] Acid reflux Hydrocodone-Acetaminophen Current Outpatient Medications: cholecalciferol (Vitamin D-3) 25 MCG (1000 UT) tablet, Vitamin D3 25 mcg (1,000 unit) tablet take 1 by Oral route 2 times every day, Disp: , Rfl: Cmuphcvbapu-Hqtrnlvlg-Oohmag (Trelegy Ellipta) 200-62.5-25 MCG/ACT aerosol powder , Inhale., Disp: , Rfl: propranolol (Inderal) 60 MG tablet, Take 1 tablet (60 mg) by mouth 2 times daily., Disp: 180 tablet, Rfl: 3 Spiriva Respimat 2.5 MCG/ACT inhaler, TAKE 1 PUFF BY MOUTH EVERY DAY, Disp: , Rfl: Past Medical History: Diagnosis Date Chronic kidney disease Hyperlipidemia Kidney stones Kidney stones Social History Tobacco Use Smoking status: Every Day Current packs/day: 0.50 Types: Cigarettes Smokeless tobacco: Never Substance Use Topics Alcohol use: Not Currently Past Surgical History: Procedure Laterality Date LITHOTRIPSY PROSTATE SURGERY Family History Problem Relation Name Age of Onset Breast cancer Mother Heart attack Father Objective Vitals: BP (!) 143/89 (BP Location: Right arm, Patient Position: Sitting, BP Cuff Size: Adult) Pulse 96 Ht 5' 10 (1.778 m) Wt 168 lb 6.4 oz (76.4 kg) BMI 24.16 kg/m General Appearance: Patient is in no apparent distress. Head is normocephalic, atraumatic Cardiovascular: Regular rate and rhythm. No heart murmurs. No carotid bruit Neurologic: Mentation: Alert and oriented x 3 to person, place and time. Speech and Language: Speech and language normal Concentration and Attention: Concentration normal Memory: Memory grossly normal Fund of Knowledge: Fund of knowledge normal Cranial Nerves: II, III, IV, V, , VII, VIII, IX, X, XI, XII examined and were intact. Head titubation. Lateral torticollis pulling head to his right Motor: Strength: Strength 5 out of 5 with normal tone Alternating Movements: Normal Cogwheel Rigidity: None Tone: Tone is normal Tremor / Involuntary Movements: Bilateral kinetic. Does have a tortional component. Worse on the left Deep Tendon Reflexes: 1 out of 4 symmetrical in all four limbs. Coordination: Normal coordination upper and lower extremities Gait and Station: Station is normal. Gait is normal Data Reviewed and Summarized DIAGNOSTIC TESTING CMP: Lab Results Component Value Date AGRATIO 1.8 12/31/2022 PROT 7.1 12/31/2022 BILITOT 0.4 12/31/2022 ALKPHOS 105 12/31/2022 AST 22 12/31/2022 ALT 26 12/31/2022 --- IMPRESSION and PLAN: Diagnosis Plan 1. Dystonic tremor propranolol (Inderal) 60 MG tablet 2. Spasmodic torticollis 3. Neurogenic claudication 1. The deutetrabenazine did help a little bit. He has failed several meds over the years including but not limted to Artane, Cogentin, Sinemet, Primidone, propranolol, and botulinum toxin. He asked me to hold off on new medications. For now I will continue the propranolol. 2. Will try samples of Austedo. 3. Clinically I suspect this. He declined an EMG/NCS and declined PT for the lumbar spine. Christine Tesfaye MD I spent 30 minutes caring for this patient today, reviewing labs, records, seeing the patient, documenting in the record and arranging for studies. @SIGNATURE@ documented in this encounter [facility] 12-20-2023 Telephone encounter Note Order has been faxed [facility] 12-20-2023 Miscellaneous Notes Order has been faxed Windy has been notified the pvr has been ordered and will be faxed to [place] I ordered an arterial PVR, it's in the cardiovascular section of [facility]. I am fine with him doing it at [place] Patient does not have a ct order. Name of caller: Windy Contact phone number: [phone] Relationship to Patient: spouse/SO Provider: Dr. Tesfaye Practice: [facility] Chief Complaint/Reason for Call: Windy states she would like the order for the CT scan for the patient to be sent to [facility]. Windy did not provide fax number but the phone number to [facility] is . Windy states she would like to be notified once sent. Please advise. Best time of day caller can be reached: any Patient advised that office/PCP has 24-48 business hours to return their call: Yes documented in this encounter [facility] 12-20-2023 Telephone encounter Note Windy has been notified the pvr has been ordered and will be faxed to [place] [facility] 12-16-2023 Telephone encounter Note I ordered an arterial PVR, it's in the cardiovascular section of [facility]. I am fine with him doing it at [place] [facility] 12-16-2023 Miscellaneous Notes I ordered an arterial PVR, it's in the cardiovascular section of [facility]. I am fine with him doing it at [place] Patient does not have a ct order. Name of caller: Windy Contact phone number: [phone] Relationship to Patient: spouse/SO Provider: Dr. Tesfaye Practice: [facility] Chief Complaint/Reason for Call: Windy states she would like the order for the CT scan for the patient to be sent to [facility]. Windy did not provide fax number but the phone number to [facility] is . Windy states she would like to be notified once sent. Please advise. Best time of day caller can be reached: any Patient advised that office/PCP has 24-48 business hours to return their call: Yes documented in this encounter [facility] 12-16-2023 Telephone encounter Note Patient does not have a ct order. [facility] 12-16-2023 Telephone encounter Note Name of caller: Windy Contact phone number: [phone] Relationship to Patient: spouse/SO Provider: Dr. Tesfaye Practice: [facility] Chief Complaint/Reason for Call: Windy states she would like the order for the CT scan for the patient to be sent to [facility]. Windy did not provide fax number but the phone number to [facility] is . Windy states she would like to be notified once sent. Please advise. Best time of day caller can be reached: any Patient advised that office/PCP has 24-48 business hours to return their call: Yes [facility] 12-08-2023 History of Present illness Narrative Images from the original note were not included. [facility] [address] [facility] [address] Dept: [phone] Dept Loc: [phone] Visit type: Established Patient Reason for Visit: Follow-up, Muscle Pain (burning), and Spasms Assessment and Plan 1. Spasmodic torticollis 2. Dystonic tremor 3. 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 He is still having the inability to prevent his head form turning to his right. He has tremor in both hands when doing things with the hands, but not in any other situation. I tried to get him tetrabenazine but it was notcovered. He reports that his toes want to curl up when he tries to move them. He is having burning pain when walking or active in bilateral thighs. No lower back pain. If he stops the pain goes away very quickly. REVIEW OF SYSTEMS: Review of Systems Constitutional: Negative for appetite change, chills, diaphoresis, fever and unexpected weight change. HENT: Negative for dental problem and mouth sores. Eyes: Negative for discharge and itching. Respiratory: Negative for chest tightness. Cardiovascular: Negative for chest pain and leg swelling. Gastrointestinal: Negative for rectal pain and vomiting. Endocrine: Negative for polydipsia, polyphagia and polyuria. Genitourinary: Negative for decreased urine volume, flank pain and genital sores. Musculoskeletal: Negative for arthralgias. Skin: Negative for color change. Allergic/Immunologic: Negative for food allergies and immunocompromised state. Hematological: Negative for adenopathy. Does not bruise/bleed easily. Psychiatric/Behavioral: Negative for agitation, behavioral problems, decreased concentration, sleep disturbance and suicidal ideas. Allergies Allergen Reactions 5-Hydroxytryptamine [Serotonin] Acid reflux Hydrocodone-Acetaminophen Current Outpatient Medications: cholecalciferol (Vitamin D-3) 25 MCG (1000 UT) tablet, Vitamin D3 25 mcg (1,000 unit) tablet take 1 by Oral route 2 times every day, Disp: , Rfl: Cdneoephekf-Necwqjdxm-Eaottn (Trelegy Ellipta) 200-62.5-25 MCG/ACT aerosol powder , Inhale., Disp: , Rfl: propranolol (Inderal) 60 MG tablet, Take 1 tablet (60 mg) by mouth 2 times daily., Disp: 180 tablet, Rfl: 2 Spiriva Respimat 2.5 MCG/ACT inhaler, TAKE 1 PUFF BY MOUTH EVERY DAY, Disp: , Rfl: Past Medical History: Diagnosis Date Chronic kidney disease Hyperlipidemia Kidney stones Kidney stones Colton Mascorro saw him in October 2022: 67-year-old man seen by myself in the past in March 2015. He was a patient of Dr. Tesfaye. This was in [place]. He continues follow-up Dr. Tesfaye in [place]. Has been receiving Dysport injections here since 01/20/2021. In the past at [facility] also a patient of Dr. Mayfield. He had undergone prior botulinum toxin injections both by Dr. Mayfield and at the [facility]. After both treatments he had developed some mild dysphagia. As well he had complained that the botulinum toxin costs were prohibitive. At that time we had suggested a lower dose botulinum, Dysport concentrate 300 units as follows: 1. Left sternocleidomastoid 100 units 2. Right semispinalis capitis 50 units 3. Right upper trapezius 50 units 4. Right levator scapula 50 units Patient also had history notable for benign familiar tremor. Subsequently lost to follow-up. Complains of ongoing cervical pain associated with his dystonia. No reported gait issues. Social History Tobacco Use Smoking status: Every Day Packs/day: .5 Types: Cigarettes Smokeless tobacco: Never Substance Use Topics Alcohol use: Not Currently Past Surgical History: Procedure Laterality Date LITHOTRIPSY PROSTATE SURGERY Family History Problem Relation Name Age of Onset Breast cancer Mother Heart attack Father Objective Vitals: BP (!) 158/91 (BP Location: Left arm, Patient Position: Sitting, BP Cuff Size: Adult) Pulse 62 Ht 5' 10 (1.778 m) Wt 170 lb 3.2 oz (77.2 kg) BMI 24.42 kg/m General Appearance: Patient is in no apparent distress. Head is normocephalic, atraumatic Cardiovascular: Regular rate and rhythm. No heart murmurs. No carotid bruit Neurologic: Mentation: Alert and oriented x 3 to person, place and time. Speech and Language: Speech and language normal Concentration and Attention: Concentration normal Memory: Memory grossly normal Fund of Knowledge: Fund of knowledge normal Cranial Nerves: II, III, IV, V, , VII, VIII, IX, X, XI, XII examined and were intact. Head titubation. Lateral torticollis Motor: Strength: Strength 5 out of 5 with normal tone Alternating Movements: Normal Cogwheel Rigidity: None Tone: Tone is normal Tremor / Involuntary Movements: Bilateral kinetic. Does have a tortional component. Deep Tendon Reflexes: 1 out of 4 symmetrical in all four limbs. Coordination: Normal coordination upper and lower extremities Gait and Station: Station is normal. Gait is normal Data Reviewed and Summarized DIAGNOSTIC TESTING CBC: No results found for: WBC, RBC, HGB, HCT, MCV, MCH, MCHC, RDW, PLT, MPV CMP: Lab Results Component Value Date AGRATIO 1.8 12/31/2022 PROT 7.1 12/31/2022 BILITOT 0.4 12/31/2022 ALKPHOS 105 12/31/2022 AST 22 12/31/2022 ALT 26 12/31/2022 BMP: No results found for: NA, K, CL, CO2, BUN, CREATININE, CALCIUM, LABGLOM, GLUCOSE, GLU PT/INR: No results found for: PROTIME, INR PTT: No results found for: APTT, PTT[APTT} FLP: No results found for: CHLPL, TRIG, HDL, LDLCALC, LDLDIRECT TSH: No results found for: TSH VITAMIN B12: No results found for: [id number] No results found for: PHENYTOIN, PHENOBARB, VALPROATE, CBMZ No components found for: TOPIRA @RESULTINGLABINFO@ No results found for: LEVETIRACETA, FERRITIN, CRP, LUIS MANUEL, ANCA No results found for: IBETH, IMMUNOGLOBUL, OLIGOBANDS No results found for: VHC67LD, HEPCAB No results found for: CRP, ANATITER, ANCA FERRITIN: No results found for: FERRITIN ---- XR CERVICAL SPINE W OBLIQUES FLEXION AND EXTENSION Narrative: Patient Name: VISHAL CISNEROS Diagnostic Radiology ACCESSION EXAM DATE/TIME 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 [phone] 11/20/2020 12:03 EDT CR Spine Cervical Comp CHRISTINE TESFAYE w/ Obliques CPT code 53637 Reason For Exam (CR Spine Cervical Comp w/ Obliques) cervicalgia of occipito atlanto axial region Report COMPLETE CERVICAL SPINE History: Neck pain, limited range of motion Findings: Frontal, lateral, bilateral oblique, flexion, extension and open mouth views show mild degenerative spine changes with small marginal vertebral spurs. There is mild narrowing of C6-C7 disc space. The remaining cervical disc spaces are maintained. There is mild neural foramina narrowing at C3-C4 and C4-C5. The atlantoaxial alignment is unremarkable as shown. There is mild multilevel facet joint arthropathy. There is minimal anterior translation of C5 on C6 upon flexion. There is left convex curvature of the cervical dorsal spine junction. The cervical vertebral alignment is otherwise unremarkable. Impression: Spondylosis as described. Consider MRI which is more sensitive for further evaluation. Report Dictated on --- Final --- Dictating Physician: MD STOKES AHMAD Signed Date and Time: 11/24/2020 1:28 pm Signed by: MD STOKES AHMAD Transcribed Date and Time: 11/24/2020 1:29 IMPRESSION and PLAN: Diagnosis Plan 1. Spasmodic torticollis 2. Dystonic tremor 3. 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 He has failed several meds over the years including but not limted to Artane, Cogentin, Sinemet, Primidone, propranolol, and botulinum toxin. This is making him very uncomfortable, afshin at night. Will order deutetrabenazine. 2. Will try samples of Austedo. 3. He is having symptoms of this. Arterial PVR for this. CHRISTINE TESFAYE MD I spent 30 minutes caring for this patient today, reviewing labs, records, seeing the patient, documenting in the record and arranging for studies. @SIGNATURE@ documented in this encounter [facility] 09-23-2023 Telephone encounter Note We were able to resubmit for authorization and have approval from patients insurance starting 09/20/23 until 12/19/23. [facility] should be processing the RX now, if there are any further questions or concerns please let me know! Thanks! [facility] Work Phone: 09-23-2023 Miscellaneous Notes We were able to resubmit for authorization and have approval from patients insurance starting 09/20/23 until 12/19/23. [facility] should be processing the RX now, if there are any further questions or concerns please let me know! Thanks! [facility] going to try and get PA for this Noted Tic disorder and abnormal movements is now associated with the scripts and I re-sent them Office has received notification that PA for Tetrabenazine 12.5 mg has been denied. Patient's insurance [employer] stated medication is not covered for a diagnosis of spasmodic torticollis and abnormal involuntary movements. However, medication will be covered if patient has Chorea, hyperkinesia, hemiballismus, senile chorea, tic disorder, Tourette's syndrome or tardive dyskinesia. Please see denial letter in patient's chart. Please advise. documented in this encounter [facility] 09-20-2023 Telephone encounter Note [facility] going to try and get PA for this [facility] 09-20-2023 Miscellaneous Notes [facility] going to try and get PA for this Noted Tic disorder and abnormal movements is now associated with the scripts and I re-sent them Office has received notification that PA for Tetrabenazine 12.5 mg has been denied. Patient's insurance [employer] stated medication is not covered for a diagnosis of spasmodic torticollis and abnormal involuntary movements. However, medication will be covered if patient has Chorea, hyperkinesia, hemiballismus, senile chorea, tic disorder, Tourette's syndrome or tardive dyskinesia. Please see denial letter in patient's chart. Please advise. documented in this encounter [facility] 09-19-2023 Telephone encounter Note Noted [facility] 09-16-2023 Telephone encounter Note Tic disorder and abnormal movements is now associated with the scripts and I re-sent them [facility] 09-16-2023 Miscellaneous Notes Tic disorder and abnormal movements is now associated with the scripts and I re-sent them Office has received notification that PA for Tetrabenazine 12.5 mg has been denied. Patient's insurance [employer] stated medication is not covered for a diagnosis of spasmodic torticollis and abnormal involuntary movements. However, medication will be covered if patient has Chorea, hyperkinesia, hemiballismus, senile chorea, tic disorder, Tourette's syndrome or tardive dyskinesia. Please see denial letter in patient's chart. Please advise. documented in this encounter [facility] 09-16-2023 Telephone encounter Note Office has received notification that PA for Tetrabenazine 12.5 mg has been denied. Patient's insurance [employer] stated medication is not covered for a diagnosis of spasmodic torticollis and abnormal involuntary movements. However, medication will be covered if patient has Chorea, hyperkinesia, hemiballismus, senile chorea, tic disorder, Tourette's syndrome or tardive dyskinesia. Please see denial letter in patient's chart. Please advise. [facility] 09-08-2023 History of Present illness Narrative Images from the original note were not included. [facility] [address] [facility] [address] [facility] [address] Dept: [phone] Dept Loc: [phone] Patient was seen today via Telehealth by agreement and consent. I used the following Telehealth technology: Audio and video capabilities. Patient location: Patient Location: Home. This patient encounter is appropriate and reasonable under the circumstances: transportation issues . The patient has been advised of the potential risks and limitations of this mode of treatment (including but not limited to the absence of in-person examination) and has agreed to be treated in a remote fashion in spite of them. Any and all of the patient's/patient's family's questions on this issue have been answered and I have made no promises or guarantees to the patient. The patient has also been advised to contact this office for worsening conditions or problems, and seek emergency medical treatment and/or call 911 if the patient deems either necessary. The patient stated that they are currently in the [facility]. If the patient is a minor, permission has been obtained by the parent or guardian for the patient to receive medical care at this visit. Visit type: Established patient Reason for Visit: Follow-up and Spasmodic torticollis Assessment and Plan 1. Spasmodic torticollis - tetrabenazine (Xenazine) 12.5 MG tablet; Take 1 tablet (12.5 mg) by mouth every evening., Starting Amber 09/08/2023, Until 10/08/2023, Normal - tetrabenazine (Xenazine) 12.5 MG tablet; Take 1 tablet (12.5 mg) by mouth daily. Do not start before October 08, 2023., Starting 10/08/2023, Until Tue01/06/2024, Normal 2. Dystonic tremor - propranolol (Inderal) 60 MG tablet; Take 1 tablet (60 mg) by mouth 2 times daily., Starting Amber 09/08/2023, Until Tue12/07/2023, Normal 3. Abnormal involuntary movements - tetrabenazine (Xenazine) 12.5 MG tablet; Take 1 tablet (12.5 mg) by mouth every evening., Starting Amber 09/08/2023, Until 10/08/2023, Normal - tetrabenazine (Xenazine) 12.5 MG tablet; Take 1 tablet (12.5 mg) by mouth daily. Do not start before October 08, 2023., Starting 10/08/2023, Until Tue01/06/2024, Normal No follow-ups on file. Subjective HPI: He reports that the increase in the propranolol did not significantly change the tremor. NO side effects from the propranolol. He is still getting the botulinum toxin injections from Dr. Mascorro which are helping. The spasmodic torticollis makes it difficult for him to sleep at night. REVIEW OF SYSTEMS: Review of Systems Constitutional: Negative for appetite change, chills, diaphoresis, fever and unexpected weight change. HENT: Negative for dental problem and mouth sores. Eyes: Negative for discharge and itching. Respiratory: Negative for chest tightness. Cardiovascular: Negative for chest pain and leg swelling. Gastrointestinal: Negative for rectal pain and vomiting. Endocrine: Negative for polydipsia, polyphagia and polyuria. Genitourinary: Negative for decreased urine volume, flank pain and genital sores. Musculoskeletal: Positive for neck pain. Negative for arthralgias. Skin: Negative for color change. Allergic/Immunologic: Negative for food allergies and immunocompromised state. Neurological: Positive for tremors. Hematological: Negative for adenopathy. Does not bruise/bleed easily. Psychiatric/Behavioral: Negative for agitation, behavioral problems, decreased concentration, sleep disturbance and suicidal ideas. Allergies Allergen Reactions 5-Hydroxytryptamine [Serotonin] Acid reflux Hydrocodone-Acetaminophen Current Outpatient Medications: cholecalciferol (Vitamin D-3) 25 MCG (1000 UT) tablet, Vitamin D3 25 mcg (1,000 unit) tablet take 1 by Oral route 2 times every day, Disp: , Rfl: Yyeklcfatbg-Ibtrxdokv-Larmog (Trelegy Ellipta) 200-62.5-25 MCG/ACT aerosol powder , Inhale., Disp: , Rfl: propranolol (Inderal) 60 MG tablet, Take 1 tablet (60 mg) by mouth 2 times daily., Disp: 180 tablet, Rfl: 2 Spiriva Respimat 2.5 MCG/ACT inhaler, TAKE 1 PUFF BY MOUTH EVERY DAY, Disp: , Rfl: tetrabenazine (Xenazine) 12.5 MG tablet, Take 1 tablet (12.5 mg) by mouth every evening., Disp: 30 tablet, Rfl: 0 [START ON 10/08/2023] tetrabenazine (Xenazine) 12.5 MG tablet, Take 1 tablet (12.5 mg) by mouth daily. Do not start before October 08, 2023., Disp: 90 tablet, Rfl: 2 Past Medical History: Diagnosis Date Chronic kidney disease Hyperlipidemia Kidney stones Kidney stones Social History Tobacco Use Smoking status: Every Day Smokeless tobacco: Never Substance Use Topics Alcohol use: Not Currently Past Surgical History: Procedure Laterality Date LITHOTRIPSY PROSTATE SURGERY Family History Problem Relation Name Age of Onset Breast cancer Mother Heart attack Father Objective Vitals: There were no vitals taken for this visit. He reports that the BP was checked and it was 130/79. Neurologic: Mentation: Alert and oriented x 3 to person, place and time. Speech and Language: Speech and language normal Concentration and Attention: Concentration normal Memory: Memory normal Fund of Knowledge: Fund of knowledge normal CN: Grossly during the video, it appeared to be same as prior exams with the head turning to the right and chin down. Abnormal movements:He had tremor in the hands during the exam. Data Reviewed and Summarized DIAGNOSTIC TESTING CBC: No results found for: WBC, RBC, HGB, HCT, MCV, MCH, MCHC, RDW, PLT, MPV CMP: Lab Results Component Value Date AGRATIO 1.8 12/31/2022 PROT 7.1 12/31/2022 BILITOT 0.4 12/31/2022 ALKPHOS 105 12/31/2022 AST 22 12/31/2022 ALT 26 12/31/2022 BMP: No results found for: NA, K, CL, CO2, BUN, CREATININE, CALCIUM, LABGLOM, GLUCOSE, GLU PT/INR: No results found for: PROTIME, INR PTT: No results found for: APTT, PTT[APTT} FLP: No results found for: CHLPL, TRIG, HDL, LDLCALC, LDLDIRECT TSH: No results found for: TSH VITAMIN B12: No results found for: [id number] No results found for: PHENYTOIN, PHENOBARB, VALPROATE, CBMZ No results found for: LEVETIRACETA, FERRITIN, CRP, LUIS MANUEL, ANCA FERRITIN: No results found for: FERRITIN @RESULTINGLABINFO@ No components found for: TOPIRA No results found for: IBETH, IMMUNOGLOBUL, OLIGOBANDS No results found for: [id number], HEPCAB No results found for: CRP, ANATITER, ANCA ---- @LASTAPPOINTMENTTHISPROV@ XR CERVICAL SPINE W OBLIQUES FLEXION AND EXTENSION Narrative: Patient Name: VISHAL CISNEROS Diagnostic Radiology ACCESSION EXAM DATE/TIME 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 [id number] 11/20/2020 12:03 EDT CR Spine Cervical Comp CHRISTINE TESFAYE w/ Obliques CPT code 65252 Reason For Exam (CR Spine Cervical Comp w/ Obliques) cervicalgia of occipito atlanto axial region Report COMPLETE CERVICAL SPINE History: Neck pain, limited range of motion Findings: Frontal, lateral, bilateral oblique, flexion, extension and open mouth views show mild degenerative spine changes with small marginal vertebral spurs. There is mild narrowing of C6-C7 disc space. The remaining cervical disc spaces are maintained. There is mild neural foramina narrowing at C3-C4 and C4-C5. The atlantoaxial alignment is unremarkable as shown. There is mild multilevel facet joint arthropathy. There is minimal anterior translation of C5 on C6 upon flexion. There is left convex curvature of the cervical dorsal spine junction. The cervical vertebral alignment is otherwise unremarkable. Impression: Spondylosis as described. Consider MRI which is more sensitive for further evaluation. Report Dictated on --- Final --- Dictating Physician: MD STOKES AHMAD Signed Date and Time: 11/24/2020 1:28 pm Signed by: MD STOKES AHMAD Transcribed Date and Time: 11/24/2020 1:29 IMPRESSION and PLAN: Problem List Items Addressed This Visit None Visit Diagnoses Spasmodic torticollis - Primary Relevant Medications tetrabenazine (Xenazine) 12.5 MG tablet tetrabenazine (Xenazine) 12.5 MG tablet (Start on 10/08/2023) Dystonic tremor Relevant Medications propranolol (Inderal) 60 MG tablet Abnormal involuntary movements Relevant Medications tetrabenazine (Xenazine) 12.5 MG tablet tetrabenazine (Xenazine) 12.5 MG tablet (Start on 10/08/2023) 1. He has failed several meds over the years including but not limted to Artane, Cogentin, Sinemet, Primidone, propranolol, and botulinum toxin. This is making him very uncomfortable, afshin at night. Will order tetrabenazine. 2. See above. Tetrabenazine and propranolol. I spent 30 minutes caring for this patient today, reviewing labs and records, seeing the patient, documenting in the record and arranging for studies. documented in this encounter [facility] 06-09-2023 History of Present illness Narrative Images from the original note were not included. [facility] [address] [facility] [address] Dept: [phone] Dept Loc: [phone] Patient was seen today via Telehealth by agreement and consent. I used the following Telehealth technology: Audio and video capabilities. Patient location: Patient Location: Home. This patient encounter is appropriate and reasonable under the circumstances: transportation issues . The patient has been advised of the potential risks and limitations of this mode of treatment (including but not limited to the absence of in-person examination) and has agreed to be treated in a remote fashion in spite of them. Any and all of the patient's/patient's family's questions on this issue have been answered and I have made no promises or guarantees to the patient. The patient has also been advised to contact this office for worsening conditions or problems, and seek emergency medical treatment and/or call 911 if the patient deems either necessary. The patient stated that they are currently in the [facility]. If the patient is a minor, permission has been obtained by the parent or guardian for the patient to receive medical care at this visit. Visit type: Established patient Reason for Visit: Follow-up Assessment and Plan 1. Spasmodic torticollis 2. Tremor - propranolol (Inderal) 60 MG tablet; Take 1 tablet (60 mg) by mouth 2 times daily. Do not start before June 24, 2023., Starting Tue06/24/2023, Until Amber 09/22/2023, Normal Follow up in about 2 months (around 08/09/2023). Subjective HPI: He reports that he tolerated the increase in the propranolol. He has not had lightheadedness. He reports that he is still seeing Dr. Mascorro for his botulinum toxin injections. He reports that the REVIEW OF SYSTEMS: Review of Systems Constitutional: Negative for appetite change, chills, diaphoresis, fever and unexpected weight change. HENT: Negative for dental problem and mouth sores. Eyes: Negative for discharge and itching. Respiratory: Negative for chest tightness. Cardiovascular: Negative for chest pain and leg swelling. Gastrointestinal: Negative for rectal pain and vomiting. Endocrine: Negative for polydipsia, polyphagia and polyuria. Genitourinary: Negative for decreased urine volume, flank pain and genital sores. Musculoskeletal: Positive for neck pain. Negative for arthralgias. Skin: Negative for color change. Allergic/Immunologic: Negative for food allergies and immunocompromised state. Neurological: Positive for tremors. Hematological: Negative for adenopathy. Does not bruise/bleed easily. Psychiatric/Behavioral: Negative for agitation, behavioral problems, decreased concentration, sleep disturbance and suicidal ideas. Allergies Allergen Reactions 5-Hydroxytryptamine [Serotonin] Acid reflux Hydrocodone-Acetaminophen Current Outpatient Medications: cholecalciferol (Vitamin D-3) 25 MCG (1000 UT) tablet, Vitamin D3 25 mcg (1,000 unit) tablet take 1 by Oral route 2 times every day, Disp: , Rfl: Vlocolphorx-Hbnvluaro-Xtlxmj (Trelegy Ellipta) 200-62.5-25 MCG/ACT aerosol powder , Inhale., Disp: , Rfl: propranolol (Inderal) 40 MG tablet, TAKE 1 TABLET BY MOUTH TWICE A DAY, Disp: 180 tablet, Rfl: 1 [START ON 06/24/2023] propranolol (Inderal) 60 MG tablet, Take 1 tablet (60 mg) by mouth 2 times daily. Do not start before June 24, 2023., Disp: 180 tablet, Rfl: 2 Spiriva Respimat 2.5 MCG/ACT inhaler, TAKE 1 PUFF BY MOUTH EVERY DAY, Disp: , Rfl: Past Medical History: Diagnosis Date Chronic kidney disease Hyperlipidemia Kidney stones Kidney stones Social History Tobacco Use Smoking status: Every Day Smokeless tobacco: Never Substance Use Topics Alcohol use: Not Currently Past Surgical History: Procedure Laterality Date LITHOTRIPSY PROSTATE SURGERY Family History Problem Relation Name Age of Onset Breast cancer Mother Heart attack Father Objective Vitals: There were no vitals taken for this visit. While we were on the video he took his BP and pulse using an automated cuff. 142/75 HR 64 Neurologic: Mentation: Alert and oriented x 3 to person, place and time. Speech and Language: Speech and language normal Concentration and Attention: Concentration normal Memory: Memory normal Fund of Knowledge: Fund of knowledge normal Data Reviewed and Summarized DIAGNOSTIC TESTING COPPER 70 - 175 mcg/dL 93 CERULOPLASMIN 18 - 36 mg/dL 26 His hepatic function panel was also normal CBC: No results found for: WBC, RBC, HGB, HCT, MCV, MCH, MCHC, RDW, PLT, MPV CMP: Lab Results Component Value Date AGRATIO 1.8 12/31/2022 PROT 7.1 12/31/2022 BILITOT 0.4 12/31/2022 ALKPHOS 105 12/31/2022 AST 22 12/31/2022 ALT 26 12/31/2022 BMP: No results found for: NA, K, CL, CO2, BUN, CREATININE, CALCIUM, LABGLOM, GLUCOSE, GLU PT/INR: No results found for: PROTIME, INR PTT: No results found for: APTT, PTT[APTT} FLP: No results found for: CHLPL, TRIG, HDL, LDLCALC, LDLDIRECT TSH: No results found for: TSH VITAMIN B12: No results found for: [id number] No results found for: PHENYTOIN, PHENOBARB, VALPROATE, CBMZ No results found for: LEVETIRACETA, FERRITIN, CRP, LUIS MANUEL, ANCA FERRITIN: No results found for: FERRITIN @RESULTINGLABINFO@ No components found for: TOPIRA No results found for: IBETH, IMMUNOGLOBUL, OLIGOBANDS No results found for: [id number], HEPCAB No results found for: CRP, ANATITER, ANCA ---- @LASTAPPOINTMENTTHISPROV@ XR CERVICAL SPINE W OBLIQUES FLEXION AND EXTENSION Narrative: Patient Name: VISHAL CISNEROS Diagnostic Radiology ACCESSION EXAM DATE/TIME 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 [id number] 11/20/2020 12:03 EDT CR Spine Cervical Comp CHRISTINE TESFAYE w/ Obliques CPT code 74336 Reason For Exam (CR Spine Cervical Comp w/ Obliques) cervicalgia of occipito atlanto axial region Report COMPLETE CERVICAL SPINE History: Neck pain, limited range of motion Findings: Frontal, lateral, bilateral oblique, flexion, extension and open mouth views show mild degenerative spine changes with small marginal vertebral spurs. There is mild narrowing of C6-C7 disc space. The remaining cervical disc spaces are maintained. There is mild neural foramina narrowing at C3-C4 and C4-C5. The atlantoaxial alignment is unremarkable as shown. There is mild multilevel facet joint arthropathy. There is minimal anterior translation of C5 on C6 upon flexion. There is left convex curvature of the cervical dorsal spine junction. The cervical vertebral alignment is otherwise unremarkable. Impression: Spondylosis as described. Consider MRI which is more sensitive for further evaluation. Report Dictated on --- Final --- Dictating Physician: MD STOKES AHMAD Signed Date and Time: 11/24/2020 1:28 pm Signed by: MD STOKES AHMAD Transcribed Date and Time: 11/24/2020 1:29 IMPRESSION and PLAN: Problem List Items Addressed This Visit None Visit Diagnoses Spasmodic torticollis - Primary Tremor Relevant Medications propranolol (Inderal) 60 MG tablet (Start on 06/24/2023) Continue getting botulinum toxin from Dr. Mascorro. Will increase propranolol to 60 mg BID. He is first going to use his 40 mg TID and let me know if that makes him lightheaded. I spent 30 minutes caring for this patient today, reviewing labs and records, seeing the patient, documenting in the record and arranging for studies. documented in this encounter [facility] 05-16-2023 Telephone encounter Note Last ov- 12/31/22 Next ov- 06/09/23 [facility] 05-16-2023 Miscellaneous Notes Last ov- 12/31/22 Next ov- 06/09/23 documented in this encounter [facility] 04-18-2023 Telephone encounter Note Last ov- 12/31/22 Next ov-06/09/23 [facility] 04-18-2023 Miscellaneous Notes Last ov- 12/31/22 Next ov-06/09/23 documented in this encounter [facility] 03-22-2023 History of Present illness Narrative Images from the original note were not included. [facility] [address] [facility] [address] Dept: [phone] Dept Loc: [phone] Patient was seen today via Telehealth by agreement and consent. I used the following Telehealth technology: Audio and video capabilities. Patient location: Patient Location: Home. This patient encounter is appropriate and reasonable under the circumstances: transportation issues . The patient has been advised of the potential risks and limitations of this mode of treatment (including but not limited to the absence of in-person examination) and has agreed to be treated in a remote fashion in spite of them. Any and all of the patient's/patient's family's questions on this issue have been answered and I have made no promises or guarantees to the patient. The patient has also been advised to contact this office for worsening conditions or problems, and seek emergency medical treatment and/or call 911 if the patient deems either necessary. The patient stated that they are currently in the [facility]. If the patient is a minor, permission has been obtained by the parent or guardian for the patient to receive medical care at this visit. Visit type: Established patient Reason for Visit: Follow-up Assessment and Plan 1. Spasmodic torticollis 2. Tremor No follow-ups on file. Subjective HPI: He reports that he is still shaky but feeling better with the propranolol. He is not as shaky on the inside with the propranolol compared to the primidone. He is still getting Botox from Dr. Mascorro. We tried 5 hydroxytryptamine and that did not work and gave him acid reflux. REVIEW OF SYSTEMS: Review of Systems Constitutional: Negative for appetite change, chills, diaphoresis, fever and unexpected weight change. HENT: Negative for dental problem and mouth sores. Eyes: Negative for discharge and itching. Respiratory: Negative for chest tightness. Cardiovascular: Negative for chest pain and leg swelling. Gastrointestinal: Negative for rectal pain and vomiting. Endocrine: Negative for polydipsia, polyphagia and polyuria. Genitourinary: Negative for decreased urine volume, flank pain and genital sores. Musculoskeletal: Positive for neck pain. Negative for arthralgias. Skin: Negative for color change. Allergic/Immunologic: Negative for food allergies and immunocompromised state. Neurological: Positive for tremors. Hematological: Negative for adenopathy. Does not bruise/bleed easily. Psychiatric/Behavioral: Negative for agitation, behavioral problems, decreased concentration, sleep disturbance and suicidal ideas. Allergies Allergen Reactions Hydrocodone-Acetaminophen Current Outpatient Medications: cholecalciferol (Vitamin D-3) 25 MCG (1000 UT) tablet, Vitamin D3 25 mcg (1,000 unit) tablet take 1 by Oral route 2 times every day, Disp: , Rfl: Rgpidybqpyr-Hypblxcot-Vjmrsz (Trelegy Ellipta) 200-62.5-25 MCG/ACT aerosol powder , Inhale., Disp: , Rfl: propranolol (Inderal) 20 MG tablet, Take 1 tablet (20 mg) by mouth 2 times daily., Disp: 60 tablet, Rfl: 11 5-Hydroxytryptophan 200 MG tablet, Take 1 tablet by mouth with evening meal., Disp: 30 tablet, Rfl: 11 Spiriva Respimat 2.5 MCG/ACT inhaler, TAKE 1 PUFF BY MOUTH EVERY DAY, Disp: , Rfl: Past Medical History: Diagnosis Date Chronic kidney disease Hyperlipidemia Kidney stones Kidney stones Social History Tobacco Use Smoking status: Every Day Smokeless tobacco: Never Substance Use Topics Alcohol use: Not Currently Past Surgical History: Procedure Laterality Date LITHOTRIPSY PROSTATE SURGERY Family History Problem Relation Name Age of Onset Breast cancer Mother Heart attack Father Objective Vitals: There were no vitals taken for this visit. While we were on the video he took his BP and pulse using an automated cuff. 143/60 HR 79 Neurologic: Mentation: Alert and oriented x 3 to person, place and time. Speech and Language: Speech and language normal Concentration and Attention: Concentration normal Memory: Memory normal Fund of Knowledge: Fund of knowledge normal Data Reviewed and Summarized DIAGNOSTIC TESTING COPPER 70 - 175 mcg/dL 93 CERULOPLASMIN 18 - 36 mg/dL 26 His hepatic function panel was also normal CBC: No results found for: WBC, RBC, HGB, HCT, MCV, MCH, MCHC, RDW, PLT, MPV CMP: Lab Results Component Value Date AGRATIO 1.8 12/31/2022 PROT 7.1 12/31/2022 BILITOT 0.4 12/31/2022 ALKPHOS 105 12/31/2022 AST 22 12/31/2022 ALT 26 12/31/2022 BMP: No results found for: NA, K, CL, CO2, BUN, CREATININE, CALCIUM, LABGLOM, GLUCOSE, GLU PT/INR: No results found for: PROTIME, INR PTT: No results found for: APTT, PTT[APTT} FLP: No results found for: CHLPL, TRIG, HDL, LDLCALC, LDLDIRECT TSH: No results found for: TSH VITAMIN B12: No results found for: [id number] No results found for: PHENYTOIN, PHENOBARB, VALPROATE, CBMZ No results found for: LEVETIRACETA, FERRITIN, CRP, LUIS MANUEL, ANCA FERRITIN: No results found for: FERRITIN @RESULTINGLABINFO@ No components found for: TOPIRA No results found for: IBETH, IMMUNOGLOBUL, OLIGOBANDS No results found for: [id number], HEPCAB No results found for: CRP, ANATITER, ANCA, ANCA ---- @LASTAPPOINTMENTTHISPROV@ XR CERVICAL SPINE W OBLIQUES FLEXION AND EXTENSION Narrative: Patient Name: VISHAL CISNEROS Diagnostic Radiology ACCESSION EXAM DATE/TIME 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 [id number] 11/20/2020 12:03 EDT CR Spine Cervical Comp CHRISTINE TESFAYE w/ Obliques CPT code 88901 Reason For Exam (CR Spine Cervical Comp w/ Obliques) cervicalgia of occipito atlanto axial region Report COMPLETE CERVICAL SPINE History: Neck pain, limited range of motion Findings: Frontal, lateral, bilateral oblique, flexion, extension and open mouth views show mild degenerative spine changes with small marginal vertebral spurs. There is mild narrowing of C6-C7 disc space. The remaining cervical disc spaces are maintained. There is mild neural foramina narrowing at C3-C4 and C4-C5. The atlantoaxial alignment is unremarkable as shown. There is mild multilevel facet joint arthropathy. There is minimal anterior translation of C5 on C6 upon flexion. There is left convex curvature of the cervical dorsal spine junction. The cervical vertebral alignment is otherwise unremarkable. Impression: Spondylosis as described. Consider MRI which is more sensitive for further evaluation. Report Dictated on --- Final --- Dictating Physician: MD STOKES AHMAD Signed Date and Time: 11/24/2020 1:28 pm Signed by: MD STOKES AHMAD Transcribed Date and Time: 11/24/2020 1:29 IMPRESSION and PLAN: Problem List Items Addressed This Visit None Visit Diagnoses Spasmodic torticollis - Primary Tremor Continue getting botulinum toxin from Dr. Mascorro. Will increase propranolol to 40 mg BID. I spent 30 minutes caring for this patient today, reviewing labs and records, seeing the patient, documenting in the record and arranging for studies. documented in this encounter [facility] 12-31-2022 History of Present illness Narrative Images from the original note were not included. [facility] [address] [facility] [address] Dept: [phone] Dept Loc: [phone] Visit type: Established Patient Reason for Visit: Follow-up and Tremors Assessment and Plan 1. Spasmodic torticollis 2. Tremor Subjective HPI: He returns for the first time since January 2021. He reports that he is getting Botox from Dr. Mascorro for his laterocollis and that is somewhat helping. He reports that he is taking the primidone every once in a while but he feels that it is not as good as propranolol. We reviewed the history and our collective memories of why I switched him from propranolol to primidone was because he was having to use albuterol inhaler and therefore I had to make the switch. He does not recall why he stopped the levodopa for the torticollis, apparently it was not working. REVIEW OF SYSTEMS: Review of Systems Constitutional: Negative for appetite change, chills, diaphoresis, fever and unexpected weight change. HENT: Negative for dental problem and mouth sores. Eyes: Negative for discharge and itching. Respiratory: Negative for chest tightness. Cardiovascular: Negative for chest pain and leg swelling. Gastrointestinal: Negative for rectal pain and vomiting. Endocrine: Negative for polydipsia, polyphagia and polyuria. Genitourinary: Negative for decreased urine volume, flank pain and genital sores. Musculoskeletal: Negative for arthralgias. Skin: Negative for color change. Allergic/Immunologic: Negative for food allergies and immunocompromised state. Hematological: Negative for adenopathy. Does not bruise/bleed easily. Psychiatric/Behavioral: Negative for agitation, behavioral problems, decreased concentration, sleep disturbance and suicidal ideas. Allergies Allergen Reactions Hydrocodone-Acetaminophen Current Outpatient Medications: cholecalciferol (Vitamin D-3) 25 MCG (1000 UT) tablet, Vitamin D3 25 mcg (1,000 unit) tablet take 1 by Oral route 2 times every day, Disp: , Rfl: primidone (Mysoline) 50 MG tablet, TAKE 1 TABLET BY MOUTH EVERY AFTERNOON NEEDED, Disp: 14 tablet, Rfl: 0 Spiriva Respimat 2.5 MCG/ACT inhaler, TAKE 1 PUFF BY MOUTH EVERY DAY, Disp: , Rfl: Past Medical History: Diagnosis Date Chronic kidney disease Hyperlipidemia Kidney stones Kidney stones Colton Mascorro saw him in October 2022: 67-year-old man seen by myself in the past in March 2015. He was a patient of Dr. Tesfaye. This was in [place]. He continues follow-up Dr. Tesfaye in [place]. Has been receiving Dysport injections here since 01/20/2021. In the past at [facility] also a patient of Dr. Mayfield. He had undergone prior botulinum toxin injections both by Dr. Mayfield and at the [facility]. After both treatments he had developed some mild dysphagia. As well he had complained that the botulinum toxin costs were prohibitive. At that time we had suggested a lower dose botulinum, Dysport concentrate 300 units as follows: 1. Left sternocleidomastoid 100 units 2. Right semispinalis capitis 50 units 3. Right upper trapezius 50 units 4. Right levator scapula 50 units Patient also had history notable for benign familiar tremor. Subsequently lost to follow-up. Complains of ongoing cervical pain associated with his dystonia. No reported gait issues. Social History Tobacco Use Smoking status: Every Day Smokeless tobacco: Never Substance Use Topics Alcohol use: Not Currently Past Surgical History: Procedure Laterality Date LITHOTRIPSY PROSTATE SURGERY Family History Problem Relation Name Age of Onset Breast cancer Mother Heart attack Father Objective Vitals: BP (!) 158/84 (BP Location: Left arm, Patient Position: Sitting, BP Cuff Size: Adult) Pulse 88 Ht 5' 10 (1.778 m) Wt 173 lb 9.6 oz (78.7 kg) BMI 24.91 kg/m General Appearance: Patient is in no apparent distress. Head is normocephalic, atraumatic Cardiovascular: Regular rate and rhythm. No heart murmurs. No carotid bruit Neurologic: Mentation: Alert and oriented x 3 to person, place and time. Speech and Language: Speech and language normal Concentration and Attention: Concentration normal Memory: Memory grossly normal Fund of Knowledge: Fund of knowledge normal Cranial Nerves: II, III, IV, V, , VII, VIII, IX, X, XI, XII examined and were intact. Head titubation. Lateral torticollis Motor: Strength: Strength 5 out of 5 with normal tone Alternating Movements: Normal Cogwheel Rigidity: None Tone: Tone is normal Tremor / Involuntary Movements: Bilateral postural and kinetic. Does have a tortional component. Also has head titubation. Deep Tendon Reflexes: 1 out of 4 symmetrical in all four limbs. Coordination: Normal coordination upper and lower extremities Gait and Station: Station is normal. Gait is normal Data Reviewed and Summarized DIAGNOSTIC TESTING CBC: No results found for: WBC, RBC, HGB, HCT, MCV, MCH, MCHC, RDW, PLT, MPV CMP: No results found for: NA, K, CL, CO2, BUN, CREATININE, AGRATIO, LABGLOM, GLUCOSE, GLU, PROT, CALCIUM, BILITOT, ALKPHOS, AST, ALT BMP: No results found for: NA, K, CL, CO2, BUN, CREATININE, CALCIUM, LABGLOM, GLUCOSE, GLU PT/INR: No results found for: PROTIME, INR PTT: No results found for: APTT, PTT[APTT} FLP: No results found for: CHLPL, TRIG, HDL, LDLCALC, LDLDIRECT TSH: No results found for: TSH VITAMIN B12: No results found for: [id number] No results found for: PHENYTOIN, PHENOBARB, VALPROATE, CBMZ No components found for: TOPIRA @RESULTINGLABINFO@ No results found for: LEVETIRACETA, FERRITIN, CRP, LUIS MANUEL, ANCA No results found for: IBETH, IMMUNOGLOBUL, OLIGOBANDS No results found for: [id number], HEPCAB No results found for: CRP, ANATITER, ANCA, ANCA FERRITIN: No results found for: FERRITIN ---- XR CERVICAL SPINE W OBLIQUES FLEXION AND EXTENSION Narrative: Patient Name: VISHAL CISNEROS Diagnostic Radiology ACCESSION EXAM DATE/TIME 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 [id number] 11/20/2020 12:03 EDT CR Spine Cervical Comp CHRISTINE TESFAYE w/ Obliques CPT code 76557 Reason For Exam (CR Spine Cervical Comp w/ Obliques) cervicalgia of occipito atlanto axial region Report COMPLETE CERVICAL SPINE History: Neck pain, limited range of motion Findings: Frontal, lateral, bilateral oblique, flexion, extension and open mouth views show mild degenerative spine changes with small marginal vertebral spurs. There is mild narrowing of C6-C7 disc space. The remaining cervical disc spaces are maintained. There is mild neural foramina narrowing at C3-C4 and C4-C5. The atlantoaxial alignment is unremarkable as shown. There is mild multilevel facet joint arthropathy. There is minimal anterior translation of C5 on C6 upon flexion. There is left convex curvature of the cervical dorsal spine junction. The cervical vertebral alignment is otherwise unremarkable. Impression: Spondylosis as described. Consider MRI which is more sensitive for further evaluation. Report Dictated on --- Final --- Dictating Physician: MD STOKES AHMAD Signed Date and Time: 11/24/2020 1:28 pm Signed by: MD STOKES AHMAD Transcribed Date and Time: 11/24/2020 1:29 IMPRESSION and PLAN: Diagnosis Plan 1. Spasmodic torticollis 2. Tremor I cannot find that I did the check for Yifan's disease. I think I did when I saw him in [place] I did check that but I cannot recall and do not have those records. Will get liver function, ceruplasmin, and copper. I thought he was somewhat dopa responsive but he does not agree. I will Rx 5-hydroxytryptophan 200 mg every suppertime. The patient is to go on propranolol instead of primidone. Propranolol 20 mg BID. No problem-specific Assessment & Plan notes found for this encounter. CHRISTINE TESFAYE MD I spent 30 minutes caring for this patient today, reviewing labs, records, seeing the patient, documenting in the record and arranging for studies. @SIGNATURE@ Request have been faxed documented in this encounter [facility] 12-31-2022 Miscellaneous Notes Addended by: CHRISTINE TESFAYE on: 12/31/2022 08:36 AM Modules accepted: Orders documented in this encounter [facility] 12-31-2022 Note Addended by: CHRISTINE TESFAYE on: 12/31/2022 08:36 AM Modules accepted: Orders [facility] 11-11-2022 Telephone encounter Note PIEDAD: 03/19/2021 w/ Martha Schmitt scheduled appt 12/31/2022 [facility] 11-11-2022 Miscellaneous Notes PIEDAD: 03/19/2021 kristie Schmitt scheduled appt 12/31/2022 documented in this encounter [facility] 08-20-2022 Telephone encounter Note Patient refused to make an appointment at this time. Will call back to make an appointment. Message released to patient as written. Yes Patient's further questions if applicable: none Were all questions from office addressed or relayed to the patient from encounter: Yes [facility] 08-20-2022 Miscellaneous Notes Patient refused to make an appointment at this time. Will call back to make an appointment. Message released to patient as written. Yes Patient's further questions if applicable: none Were all questions from office addressed or relayed to the patient from encounter: Yes Left a message for pt to call office. Please schedule a follow up appt when pt to call back. He has not been seen since Summer 2020. He needs an appt. I did give 1 month of Primidone 50mg tabs documented in this encounter [facility] 08-20-2022 Telephone encounter Note Left a message for pt to call office. Please schedule a follow up appt when pt to call back. [facility] 08-20-2022 Telephone encounter Note He has not been seen since Summer 2020. He needs an appt. I did give 1 month of Primidone 50mg tabs [facility] 10-21-2021 Instructions Name Patient Instructions Start: 2 Instruction Type:Provider Instructions for Treatment How to Access Health Information Online using Patient Portal and [employer] Apps Start: 2 Instruction Type:Patient Education Patient Instructions Start:01-Jun-2021 Instruction Type:Provider Instructions for Treatment How to Access Health Information Online using Patient Portal and [employer] Apps Start:01-Jun-2021 Instruction Type:Patient Education Patient Instructions Indication:BMI 23.0-23.9, adult Start: 1 Instruction Type:Provider Instructions for Treatment How to Access Health Information Online using Patient Portal and [employer] Apps Indication:BMI 23.0-23.9, adult Start: 1 Instruction Type:Patient Education How to Access Health Information Online using Patient Portal and [employer] Apps Start: Instruction Type:Patient Education Patient Instructions Start: Instruction Type:Provider Instructions for Treatment How to Access Health Information Online using Patient Portal and [employer] Apps Start: Instruction Type:Patient Education Patient Instructions Start: Instruction Type:Provider Instructions for Treatment How to Access Health Information Online using Patient Portal and [employer] Apps Start:01-Sep-2020 Instruction Type:Patient Education Patient Instructions Start:01-Sep-2020 Instruction Type:Provider Instructions for Treatment How to access health information online Start:30-Apr-2020 Instruction Type:Patient Education How to access health information online - Detail Indication:Need for prophylactic vaccination and inoculation against influenza (Renamed from Need for immunization against influenza) Start:30-Apr-2020 Instruction Type:Patient Education Patient Instructions Start:30-Apr-2020 Instruction Type:Provider Instructions for Treatment How to access health information online Indication:BMI 24.0-24.9, adult Start:28-Jan-2020 Instruction Type:Patient Education How to access health information online - Detail Indication:BMI 24.0-24.9, adult Start:28-Jan-2020 Instruction Type:Patient Education Patient Instructions Indication:BMI 24.0-24.9, adult Start:28-Jan-2020 Instruction Type:Provider Instructions for Treatment How to access health information online Indication:BMI 23.0-23.9, adult Start: 0 Instruction Type:Patient Education How to access health information online - Detail Indication:BMI 23.0-23.9, adult Start: 0 Instruction Type:Patient Education Patient Instructions Indication:BMI 23.0-23.9, adult Start: 0 Instruction Type:Provider Instructions for Treatment How to access health information online Indication:Tobacco use Start:27-Dec-2019 Instruction Type:Patient Education How to access health information online - Detail Indication:Tobacco use Start:27-Dec-2019 Instruction Type:Patient Education Patient Instructions Indication:Tobacco use Start:27-Dec-2019 Instruction Type:Provider Instructions for Treatment How to access health information online Indication:BMI 23.0-23.9, adult Start:02-Aug-2019 Instruction Type:Patient Education How to access health information online - Detail Indication:BMI 23.0-23.9, adult Start:02-Aug-2019 Instruction Type:Patient Education Patient Instructions Indication:BMI 23.0-23.9, adult Start:02-Aug-2019 Instruction Type:Provider Instructions for Treatment How to access health information online Start:29-Mar-2019 Instruction Type:Patient Education How to access health information online - Detail Start:29-Mar-2019 Instruction Type:Patient Education Patient Instructions Start:29-Mar-2019 Instruction Type:Provider Instructions for Treatment Patient Instructions Indication:Hypercholesteremi a Start:12-Omer-201 9 Instruction Type:Provider Instructions for Treatment How to access health information online Start: 9 Instruction Type:Patient Education How to access health information online - Detail Start: 9 Instruction Type:Patient Education How to access health information online Indication:Tobacco use Start: 9 Instruction Type:Patient Education How to access health information online - Detail Indication:Tobacco use Start: 9 Instruction Type:Patient Education Patient Instructions Indication:Tobacco use Start: 9 Instruction Type:Provider Instructions for Treatment How to access health information online Start:30-Nov-2018 Instruction Type:Patient Education How to access health information online - Detail Start:30-Nov-2018 Instruction Type:Patient Education Patient Instructions Start:30-Nov-2018 Instruction Type:Provider Instructions for Treatment How to access health information online Indication:Nonsmoker Start:26-Oct-2018 Instruction Type:Patient Education How to access health information online - Detail Indication:Nonsmoker Start:26-Oct-2018 Instruction Type:Patient Education Patient Instructions Indication:Nonsmoker Start:26-Oct-2018 Instruction Type:Provider Instructions for Treatment How to access health information online Indication:Nonsmoker Start: 8 Instruction Type:Patient Education How to access health information online - Detail Indication:Nonsmoker Start: 8 Instruction Type:Patient Education Patient Instructions Indication:Back pain, acute Start: 8 Instruction Type:Provider Instructions for Treatment How to access health information online Start: 8 Instruction Type:Patient Education How to access health information online - Detail Start: 8 Instruction Type:Patient Education Patient Instructions Start: 8 Instruction Type:Provider Instructions for Treatment How to access health information online Start:24-Nov-2016 Instruction Type:Patient Education How to access health information online - Detail Start:24-Nov-2016 Instruction Type:Patient Education Patient Instructions Start:24-Nov-2016 Instruction Type:Provider Instructions for Treatment How to access health information online Start: 6 Instruction Type:Patient Education How to access health information online - Detail Start: 6 Instruction Type:Patient Education Patient Instructions Start: 6 Instruction Type:Provider Instructions for Treatment Patient Instructions Indication:Torticollis Start: 6 Instruction Type:Provider Instructions for Treatment How to access health information online Indication:Hypercholesteremi a Start: 6 Instruction Type:Patient Education How to access health information online - Detail Indication:Hypercholesteremi a Start: 6 Instruction Type:Patient Education Patient Instructions Indication:Hypercholesteremi a Start: 6 Instruction Type:Provider Instructions for Treatment How to access health information online Indication:Hypercholesteremi a Start:25-Aug-2015 Instruction Type:Patient Education How to access health information online - Detail Indication:Hypercholesteremi a Start:25-Aug-2015 Instruction Type:Patient Education Patient Instructions Indication:Hypercholesteremi a Start:25-Aug-2015 Instruction Type:Provider Instructions for Treatment Patient Instructions Indication:Fever and chills Start: 5 Instruction Type:Provider Instructions for Treatment How to access health information online Start:02-Sep-2014 Instruction Type:Patient Education How to access health information online - Detail Start:02-Sep-2014 Instruction Type:Patient Education Patient Instructions Start:02-Sep-2014 Instruction Type:Provider Instructions for Treatment Patient Instructions Start: 4 Instruction Type:Provider Instructions for Treatment Patient Instructions Indication:Hypercholesteremi a Start: 3 Instruction Type:Provider Instructions for Treatment Patient Instructions Indication:Gallstones Start:31-Oct-2012 Instruction Type:Provider Instructions for Treatment Patient Instructions Indication:Hematuria Start: 3 Instruction Type:Provider Instructions for Treatment [facility] Work Phone: Evaluation noteNo assessment information available [facility] Work Phone: Evaluation note* Diagnosis Spasmodic torticollis- Primary Tremor Abnormal involuntary movements Yifan disease Disorders of copper metabolism documented in this encounter [facility]* Diagnosis Spasmodic torticollis- Primary Tremor Abnormal involuntary movements documented in this encounter [facility] note* Diagnosis Tremor Abnormal involuntary movements documented in this encounter [facility] note* Diagnosis Tremor Abnormal involuntary movements documented in this encounter [facility] note* Diagnosis Spasmodic torticollis- Primary Tremor Abnormal involuntary movements documented in this encounter [facility] note* 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 Abnormal involuntary movements documented in this encounter [facility]* Diagnosis Tic disorder- Primary Tic disorder, unspecified Spasmodic torticollis Abnormal involuntary movements documented in this encounter [facility]* Diagnosis Tic disorder- Primary Tic disorder, unspecified Spasmodic torticollis Abnormal involuntary movements documented in this encounter [facility]* Diagnosis Tic disorder- Primary Tic disorder, unspecified Spasmodic torticollis Abnormal involuntary movements documented in this encounter [facility]* 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) documented in this encounter [facility]* 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 Spasmodic torticollis Neurogenic claudication Spinal stenosis of lumbar region documented in this encounter [facility]* 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 documented in this encounter [facility]* 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 documented in this encounter [facility]* 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 documented in this encounter [facility] Dis[facility] instructions Additional Instructions [facility]* Name Dates Details How to Access Health Informa tion Online using Patient Portal and [employer] Apps Indication:Smoker Start:01-Sep-2020 Instruction Type:Patient Education Patient Instructions Indication:Smoker Start:01-Sep-2020 Instruction Type:Provider Instructions for Treatment How to access health informa tion online Indication:Smoker Start:30-Apr-2020 Instruction Type:Patient Education How to access health informa tion online - Detail Indication:Need for prophylactic vaccination and inoculation against influenza (Renamed from Need for immunization against influenza) Start:30-Apr-2020 Instruction Type:Patient Education Patient Instructions Indication:Smoker Start:30-Apr-2020 Instruction Type:Provider Instructions for Treatment How to access health informa tion online Indication:BMI 24.0-24.9, adult Start:28-Jan-2020 Instruction Type:Patient Education How to access health informa tion online - Detail Indication:BMI 24.0-24.9, adult Start:28-Jan-2020 Instruction Type:Patient Education Patient Instructions Indication:BMI 24.0-24.9, adult Start:28-Jan-2020 Instruction Type:Provider Instructions for Treatment How to access health informa tion online Indication:BMI 23.0-23.9, adult Start:09-Jan-2020 Instruction Type:Patient Education How to access health informa tion online - Detail Indication:BMI 23.0-23.9, adult Start:09-Jan-2020 Instruction Type:Patient Education Patient Instructions Indication:BMI 23.0-23.9, adult Start:09-Jan-2020 Instruction Type:Provider Instructions for Treatment How to access health informa tion online Indication:Tobacco use Start:27-Dec-2019 Instruction Type:Patient Education How to access health informa tion online - Detail Indication:Tobacco use Start:27-Dec-2019 Instruction Type:Patient Education Patient Instructions Indication:Tobacco use Start:27-Dec-2019 Instruction Type:Provider Instructions for Treatment How to access health informa tion online Indication:BMI 23.0-23.9, adult Start:02-Aug-2019 Instruction Type:Patient Education How to access health informa tion online - Detail Indication:BMI 23.0-23.9, adult Start:02-Aug-2019 Instruction Type:Patient Education Patient Instructions Indication:BMI 23.0-23.9, adult Start:02-Aug-2019 Instruction Type:Provider Instructions for Treatment How to access health informa tion online Indication:Impaired fasting glucose Start:29-Mar-2019 Instruction Type:Patient Education How to access health informa tion online - Detail Indication:Impaired fasting glucose Start:29-Mar-2019 Instruction Type:Patient Education Patient Instructions Indication:Impaired fasting glucose Start:29-Mar-2019 Instruction Type:Provider Instructions for Treatment Patient Instructions Indication:Hypercholesteremia Start:02-Feb-2019 Instruction Type:Provider Instructions for Treatment How to access health informa tion online Indication:Smoker Start:02-Feb-2019 Instruction Type:Patient Education How to access health informa tion online - Detail Indication:Smoker Start:02-Feb-2019 Instruction Type:Patient Education How to access health informa tion online Indication:Tobacco use Start:14-Dec-2018 Instruction Type:Patient Education How to access health informa tion online - Detail Indication:Tobacco use Start:14-Dec-2018 Instruction Type:Patient Education Patient Instructions Indication:Tobacco use Start:14-Dec-2018 Instruction Type:Provider Instructions for Treatment How to access health informa tion online Indication:Smoker Start:30-Nov-2018 Instruction Type:Patient Education How to access health informa tion online - Detail Indication:Smoker Start:30-Nov-2018 Instruction Type:Patient Education Patient Instructions Indication:Smoker Start:30-Nov-2018 Instruction Type:Provider Instructions for Treatment How to access health informa tion online Indication:Nonsmoker Start:26-Oct-2018 Instruction Type:Patient Education How to access health informa tion online - Detail Indication:Nonsmoker Start:26-Oct-2018 Instruction Type:Patient Education Patient Instructions Indication:Nonsmoker Start:26-Oct-2018 Instruction Type:Provider Instructions for Treatment How to access health informa tion online Indication:Nonsmoker Start:14-Nov-2017 Instruction Type:Patient Education How to access health informa tion online - Detail Indication:Nonsmoker Start:14-Nov-2017 Instruction Type:Patient Education Patient Instructions Indication:Back pain, acute Start:14-Nov-2017 Instruction Type:Provider Instructions for Treatment How to access health informa tion online Indication:Impaired fasting glucose Start:05-Oct-2017 Instruction Type:Patient Education How to access health informa tion online - Detail Indication:Impaired fasting glucose Start:05-Oct-2017 Instruction Type:Patient Education Patient Instructions Indication:Impaired fasting glucose Start:05-Oct-2017 Instruction Type:Provider Instructions for Treatment How to access health informa tion online Indication:Impaired fasting glucose Start:24-Nov-2016 Instruction Type:Patient Education How to access health informa tion online - Detail Indication:Impaired fasting glucose Start:24-Nov-2016 Instruction Type:Patient Education Patient Instructions Indication:Impaired fasting glucose Start:24-Nov-2016 Instruction Type:Provider Instructions for Treatment How to access health informa tion online Indication:Impaired fasting glucose Start:21-Jul-2016 Instruction Type:Patient Education How to access health informa tion online - Detail Indication:Impaired fasting glucose Start:21-Jul-2016 Instruction Type:Patient Education Patient Instructions Indication:Impaired fasting glucose Start:21-Jul-2016 Instruction Type:Provider Instructions for Treatment Patient Instructions Indication:Torticollis Start:19-Mar-2016 Instruction Type:Provider Instructions for Treatment How to access health informa tion online Indication:Hypercholesteremia Start:19-Mar-2016 Instruction Type:Patient Education How to access health informa tion online - Detail Indication:Hypercholesteremia Start:19-Mar-2016 Instruction Type:Patient Education Patient Instructions Indication:Hypercholesteremia Start:19-Mar-2016 Instruction Type:Provider Instructions for Treatment How to access health informa tion online Indication:Hypercholesteremia Start:25-Aug-2015 Instruction Type:Patient Education How to access health informa tion online - Detail Indication:Hypercholesteremia Start:25-Aug-2015 Instruction Type:Patient Education Patient Instructions Indication:Hypercholesteremia Start:25-Aug-2015 Instruction Type:Provider Instructions for Treatment Patient Instructions Indication:Fever and chills Start:01-Oct-2014 Instruction Type:Provider Instructions for Treatment How to access health informa tion online Indication:Impaired fasting glucose Start:02-Sep-2014 Instruction Type:Patient Education How to access health informa tion online - Detail Indication:Impaired fasting glucose Start:02-Sep-2014 Instruction Type:Patient Education Patient Instructions Indication:Impaired fasting glucose Start:02-Sep-2014 Instruction Type:Provider Instructions for Treatment Patient Instructions Indication:Impaired fasting glucose Start:08-Oct-2013 Instruction Type:Provider Instructions for Treatment Patient Instructions Indication:Hypercholesteremia Start:01-Jan-2013 Instruction Type:Provider Instructions for Treatment Patient Instructions Indication:Gallstones Start:31-Oct-2012 Instruction Type:Provider Instructions for Treatment Patient Instructions Indication:Hematuria Start:20-Oct-2012 Instruction Type:Provider Instructions for Treatment [facility] Work Phone: Instructions* Name Dates Details How to Access Health Informa tion Online using Patient Portal and [employer] Apps Indication:Smoker Start:01-Dec-2020 Instruction Type:Patient Education Patient Instructions Indication:Smoker Start:01-Dec-2020 Instruction Type:Provider Instructions for Treatment How to Access Health Informa tion Online using Patient Portal and [employer] Apps Indication:Smoker Start:01-Sep-2020 Instruction Type:Patient Education Patient Instructions Indication:Smoker Start:01-Sep-2020 Instruction Type:Provider Instructions for Treatment How to access health informa tion online Indication:Smoker Start:30-Apr-2020 Instruction Type:Patient Education How to access health informa tion online - Detail Indication:Need for prophylactic vaccination and inoculation against influenza (Renamed from Need for immunization against influenza) Start:30-Apr-2020 Instruction Type:Patient Education Patient Instructions Indication:Smoker Start:30-Apr-2020 Instruction Type:Provider Instructions for Treatment How to access health informa tion online Indication:BMI 24.0-24.9, adult Start:28-Jan-2020 Instruction Type:Patient Education How to access health informa tion online - Detail Indication:BMI 24.0-24.9, adult Start:28-Jan-2020 Instruction Type:Patient Education Patient Instructions Indication:BMI 24.0-24.9, adult Start:28-Jan-2020 Instruction Type:Provider Instructions for Treatment How to access health informa tion online Indication:BMI 23.0-23.9, adult Start:09-Jan-2020 Instruction Type:Patient Education How to access health informa tion online - Detail Indication:BMI 23.0-23.9, adult Start:09-Jan-2020 Instruction Type:Patient Education Patient Instructions Indication:BMI 23.0-23.9, adult Start:09-Jan-2020 Instruction Type:Provider Instructions for Treatment How to access health informa tion online Indication:Tobacco use Start:27-Dec-2019 Instruction Type:Patient Education How to access health informa tion online - Detail Indication:Tobacco use Start:27-Dec-2019 Instruction Type:Patient Education Patient Instructions Indication:Tobacco use Start:27-Dec-2019 Instruction Type:Provider Instructions for Treatment How to access health informa tion online Indication:BMI 23.0-23.9, adult Start:02-Aug-2019 Instruction Type:Patient Education How to access health informa tion online - Detail Indication:BMI 23.0-23.9, adult Start:02-Aug-2019 Instruction Type:Patient Education Patient Instructions Indication:BMI 23.0-23.9, adult Start:02-Aug-2019 Instruction Type:Provider Instructions for Treatment How to access health informa tion online Indication:Impaired fasting glucose Start:29-Mar-2019 Instruction Type:Patient Education How to access health informa tion online - Detail Indication:Impaired fasting glucose Start:29-Mar-2019 Instruction Type:Patient Education Patient Instructions Indication:Impaired fasting glucose Start:29-Mar-2019 Instruction Type:Provider Instructions for Treatment Patient Instructions Indication:Hypercholesteremia Start:02-Feb-2019 Instruction Type:Provider Instructions for Treatment How to access health informa tion online Indication:Smoker Start:02-Feb-2019 Instruction Type:Patient Education How to access health informa tion online - Detail Indication:Smoker Start:02-Feb-2019 Instruction Type:Patient Education How to access health informa tion online Indication:Tobacco use Start:14-Dec-2018 Instruction Type:Patient Education How to access health informa tion online - Detail Indication:Tobacco use Start:14-Dec-2018 Instruction Type:Patient Education Patient Instructions Indication:Tobacco use Start:14-Dec-2018 Instruction Type:Provider Instructions for Treatment How to access health informa tion online Indication:Smoker Start:30-Nov-2018 Instruction Type:Patient Education How to access health informa tion online - Detail Indication:Smoker Start:30-Nov-2018 Instruction Type:Patient Education Patient Instructions Indication:Smoker Start:30-Nov-2018 Instruction Type:Provider Instructions for Treatment How to access health informa tion online Indication:Nonsmoker Start:26-Oct-2018 Instruction Type:Patient Education How to access health informa tion online - Detail Indication:Nonsmoker Start:26-Oct-2018 Instruction Type:Patient Education Patient Instructions Indication:Nonsmoker Start:26-Oct-2018 Instruction Type:Provider Instructions for Treatment How to access health informa tion online Indication:Nonsmoker Start:14-Nov-2017 Instruction Type:Patient Education How to access health informa tion online - Detail Indication:Nonsmoker Start:14-Nov-2017 Instruction Type:Patient Education Patient Instructions Indication:Back pain, acute Start:14-Nov-2017 Instruction Type:Provider Instructions for Treatment How to access health informa tion online Indication:Impaired fasting glucose Start:05-Oct-2017 Instruction Type:Patient Education How to access health informa tion online - Detail Indication:Impaired fasting glucose Start:05-Oct-2017 Instruction Type:Patient Education Patient Instructions Indication:Impaired fasting glucose Start:05-Oct-2017 Instruction Type:Provider Instructions for Treatment How to access health informa tion online Indication:Impaired fasting glucose Start:24-Nov-2016 Instruction Type:Patient Education How to access health informa tion online - Detail Indication:Impaired fasting glucose Start:24-Nov-2016 Instruction Type:Patient Education Patient Instructions Indication:Impaired fasting glucose Start:24-Nov-2016 Instruction Type:Provider Instructions for Treatment How to access health informa tion online Indication:Impaired fasting glucose Start:21-Jul-2016 Instruction Type:Patient Education How to access health informa tion online - Detail Indication:Impaired fasting glucose Start:21-Jul-2016 Instruction Type:Patient Education Patient Instructions Indication:Impaired fasting glucose Start:21-Jul-2016 Instruction Type:Provider Instructions for Treatment Patient Instructions Indication:Torticollis Start:19-Mar-2016 Instruction Type:Provider Instructions for Treatment How to access health informa tion online Indication:Hypercholesteremia Start:19-Mar-2016 Instruction Type:Patient Education How to access health informa tion online - Detail Indication:Hypercholesteremia Start:19-Mar-2016 Instruction Type:Patient Education Patient Instructions Indication:Hypercholesteremia Start:19-Mar-2016 Instruction Type:Provider Instructions for Treatment How to access health informa tion online Indication:Hypercholesteremia Start:25-Aug-2015 Instruction Type:Patient Education How to access health informa tion online - Detail Indication:Hypercholesteremia Start:25-Aug-2015 Instruction Type:Patient Education Patient Instructions Indication:Hypercholesteremia Start:25-Aug-2015 Instruction Type:Provider Instructions for Treatment Patient Instructions Indication:Fever and chills Start:01-Oct-2014 Instruction Type:Provider Instructions for Treatment How to access health informa tion online Indication:Impaired fasting glucose Start:02-Sep-2014 Instruction Type:Patient Education How to access health informa tion online - Detail Indication:Impaired fasting glucose Start:02-Sep-2014 Instruction Type:Patient Education Patient Instructions Indication:Impaired fasting glucose Start:02-Sep-2014 Instruction Type:Provider Instructions for Treatment Patient Instructions Indication:Impaired fasting glucose Start:08-Oct-2013 Instruction Type:Provider Instructions for Treatment Patient Instructions Indication:Hypercholesteremia Start:01-Jan-2013 Instruction Type:Provider Instructions for Treatment Patient Instructions Indication:Gallstones Start:31-Oct-2012 Instruction Type:Provider Instructions for Treatment Patient Instructions Indication:Hematuria Start:20-Oct-2012 Instruction Type:Provider Instructions for Treatment [facility]; [facility] Work Phone: Instructions* Name Dates Details How to Access [employer] using Patient Portal and [employer] Apps Indication:Smoker Start:01-Dec-2020 Instruction Type:Patient Education Patient Instructions Indication:Smoker Start:01-Dec-2020 Instruction Type:Provider Instructions for Treatment How to Access Health Informa tion Online using Patient Portal and [employer] Apps Indication:Smoker Start:01-Sep-2020 Instruction Type:Patient Education Patient Instructions Indication:Smoker Start:01-Sep-2020 Instruction Type:Provider Instructions for Treatment How to access health informa tion online Indication:Smoker Start:30-Apr-2020 Instruction Type:Patient Education How to access health informa tion online - Detail Indication:Need for prophylactic vaccination and inoculation against influenza (Renamed from Need for immunization against influenza) Start:30-Apr-2020 Instruction Type:Patient Education Patient Instructions Indication:Smoker Start:30-Apr-2020 Instruction Type:Provider Instructions for Treatment How to access health informa tion online Indication:BMI 24.0-24.9, adult Start:28-Jan-2020 Instruction Type:Patient Education How to access health informa tion online - Detail Indication:BMI 24.0-24.9, adult Start:28-Jan-2020 Instruction Type:Patient Education Patient Instructions Indication:BMI 24.0-24.9, adult Start:28-Jan-2020 Instruction Type:Provider Instructions for Treatment How to access health informa tion online Indication:BMI 23.0-23.9, adult Start:09-Jan-2020 Instruction Type:Patient Education How to access health informa tion online - Detail Indication:BMI 23.0-23.9, adult Start:09-Jan-2020 Instruction Type:Patient Education Patient Instructions Indication:BMI 23.0-23.9, adult Start:09-Jan-2020 Instruction Type:Provider Instructions for Treatment How to access health informa tion online Indication:Tobacco use Start:27-Dec-2019 Instruction Type:Patient Education How to access health informa tion online - Detail Indication:Tobacco use Start:27-Dec-2019 Instruction Type:Patient Education Patient Instructions Indication:Tobacco use Start:27-Dec-2019 Instruction Type:Provider Instructions for Treatment How to access health informa tion online Indication:BMI 23.0-23.9, adult Start:02-Aug-2019 Instruction Type:Patient Education How to access health informa tion online - Detail Indication:BMI 23.0-23.9, adult Start:02-Aug-2019 Instruction Type:Patient Education Patient Instructions Indication:BMI 23.0-23.9, adult Start:02-Aug-2019 Instruction Type:Provider Instructions for Treatment How to access health informa tion online Indication:Impaired fasting glucose Start:29-Mar-2019 Instruction Type:Patient Education How to access health informa tion online - Detail Indication:Impaired fasting glucose Start:29-Mar-2019 Instruction Type:Patient Education Patient Instructions Indication:Impaired fasting glucose Start:29-Mar-2019 Instruction Type:Provider Instructions for Treatment Patient Instructions Indication:Hypercholesteremia Start:02-Feb-2019 Instruction Type:Provider Instructions for Treatment How to access health informa tion online Indication:Smoker Start:02-Feb-2019 Instruction Type:Patient Education How to access health informa tion online - Detail Indication:Smoker Start:02-Feb-2019 Instruction Type:Patient Education How to access health informa tion online Indication:Tobacco use Start:14-Dec-2018 Instruction Type:Patient Education How to access health informa tion online - Detail Indication:Tobacco use Start:14-Dec-2018 Instruction Type:Patient Education Patient Instructions Indication:Tobacco use Start:14-Dec-2018 Instruction Type:Provider Instructions for Treatment How to access health informa tion online Indication:Smoker Start:30-Nov-2018 Instruction Type:Patient Education How to access health informa tion online - Detail Indication:Smoker Start:30-Nov-2018 Instruction Type:Patient Education Patient Instructions Indication:Smoker Start:30-Nov-2018 Instruction Type:Provider Instructions for Treatment How to access health informa tion online Indication:Nonsmoker Start:26-Oct-2018 Instruction Type:Patient Education How to access health informa tion online - Detail Indication:Nonsmoker Start:26-Oct-2018 Instruction Type:Patient Education Patient Instructions Indication:Nonsmoker Start:26-Oct-2018 Instruction Type:Provider Instructions for Treatment How to access health informa tion online Indication:Nonsmoker Start:14-Nov-2017 Instruction Type:Patient Education How to access health informa tion online - Detail Indication:Nonsmoker Start:14-Nov-2017 Instruction Type:Patient Education Patient Instructions Indication:Back pain, acute Start:14-Nov-2017 Instruction Type:Provider Instructions for Treatment How to access health informa tion online Indication:Impaired fasting glucose Start:05-Oct-2017 Instruction Type:Patient Education How to access health informa tion online - Detail Indication:Impaired fasting glucose Start:05-Oct-2017 Instruction Type:Patient Education Patient Instructions Indication:Impaired fasting glucose Start:05-Oct-2017 Instruction Type:Provider Instructions for Treatment How to access health informa tion online Indication:Impaired fasting glucose Start:24-Nov-2016 Instruction Type:Patient Education How to access health informa tion online - Detail Indication:Impaired fasting glucose Start:24-Nov-2016 Instruction Type:Patient Education Patient Instructions Indication:Impaired fasting glucose Start:24-Nov-2016 Instruction Type:Provider Instructions for Treatment How to access health informa tion online Indication:Impaired fasting glucose Start:21-Jul-2016 Instruction Type:Patient Education How to access health informa tion online - Detail Indication:Impaired fasting glucose Start:21-Jul-2016 Instruction Type:Patient Education Patient Instructions Indication:Impaired fasting glucose Start:21-Jul-2016 Instruction Type:Provider Instructions for Treatment Patient Instructions Indication:Torticollis Start:19-Mar-2016 Instruction Type:Provider Instructions for Treatment How to access health informa tion online Indication:Hypercholesteremia Start:19-Mar-2016 Instruction Type:Patient Education How to access health informa tion online - Detail Indication:Hypercholesteremia Start:19-Mar-2016 Instruction Type:Patient Education Patient Instructions Indication:Hypercholesteremia Start:19-Mar-2016 Instruction Type:Provider Instructions for Treatment How to access health informa tion online Indication:Hypercholesteremia Start:25-Aug-2015 Instruction Type:Patient Education How to access health informa tion online - Detail Indication:Hypercholesteremia Start:25-Aug-2015 Instruction Type:Patient Education Patient Instructions Indication:Hypercholesteremia Start:25-Aug-2015 Instruction Type:Provider Instructions for Treatment Patient Instructions Indication:Fever and chills Start:01-Oct-2014 Instruction Type:Provider Instructions for Treatment How to access health informa tion online Indication:Impaired fasting glucose Start:02-Sep-2014 Instruction Type:Patient Education How to access health informa tion online - Detail Indication:Impaired fasting glucose Start:02-Sep-2014 Instruction Type:Patient Education Patient Instructions Indication:Impaired fasting glucose Start:02-Sep-2014 Instruction Type:Provider Instructions for Treatment Patient Instructions Indication:Impaired fasting glucose Start:08-Oct-2013 Instruction Type:Provider Instructions for Treatment Patient Instructions Indication:Hypercholesteremia Start:01-Jan-2013 Instruction Type:Provider Instructions for Treatment Patient Instructions Indication:Gallstones Start:31-Oct-2012 Instruction Type:Provider Instructions for Treatment Patient Instructions Indication:Hematuria Start:20-Oct-2012 Instruction Type:Provider Instructions for Treatment [facility]; [facility] Work Phone: Instructions* Name Dates Details How to Access Health Informa tion Online using Patient Portal and [employer] Indication:Smoker Start:01-Dec-2020 Instruction Type:Patient Education Patient Instructions Indication:Smoker Start:01-Dec-2020 Instruction Type:Provider Instructions for Treatment How to Access Health Informa tion Online using Patient Portal and [employer] Apps Indication:Smoker Start:01-Sep-2020 Instruction Type:Patient Education Patient Instructions Indication:Smoker Start:01-Sep-2020 Instruction Type:Provider Instructions for Treatment How to access health informa tion online Indication:Smoker Start:30-Apr-2020 Instruction Type:Patient Education How to access health informa tion online - Detail Indication:Need for prophylactic vaccination and inoculation against influenza (Renamed from Need for immunization against influenza) Start:30-Apr-2020 Instruction Type:Patient Education Patient Instructions Indication:Smoker Start:30-Apr-2020 Instruction Type:Provider Instructions for Treatment How to access health informa tion online Indication:BMI 24.0-24.9, adult Start:28-Jan-2020 Instruction Type:Patient Education How to access health informa tion online - Detail Indication:BMI 24.0-24.9, adult Start:28-Jan-2020 Instruction Type:Patient Education Patient Instructions Indication:BMI 24.0-24.9, adult Start:28-Jan-2020 Instruction Type:Provider Instructions for Treatment How to access health informa tion online Indication:BMI 23.0-23.9, adult Start:09-Jan-2020 Instruction Type:Patient Education How to access health informa tion online - Detail Indication:BMI 23.0-23.9, adult Start:09-Jan-2020 Instruction Type:Patient Education Patient Instructions Indication:BMI 23.0-23.9, adult Start:09-Jan-2020 Instruction Type:Provider Instructions for Treatment How to access health informa tion online Indication:Tobacco use Start:27-Dec-2019 Instruction Type:Patient Education How to access health informa tion online - Detail Indication:Tobacco use Start:27-Dec-2019 Instruction Type:Patient Education Patient Instructions Indication:Tobacco use Start:27-Dec-2019 Instruction Type:Provider Instructions for Treatment How to access health informa tion online Indication:BMI 23.0-23.9, adult Start:02-Aug-2019 Instruction Type:Patient Education How to access health informa tion online - Detail Indication:BMI 23.0-23.9, adult Start:02-Aug-2019 Instruction Type:Patient Education Patient Instructions Indication:BMI 23.0-23.9, adult Start:02-Aug-2019 Instruction Type:Provider Instructions for Treatment How to access health informa tion online Indication:Impaired fasting glucose Start:29-Mar-2019 Instruction Type:Patient Education How to access health informa tion online - Detail Indication:Impaired fasting glucose Start:29-Mar-2019 Instruction Type:Patient Education Patient Instructions Indication:Impaired fasting glucose Start:29-Mar-2019 Instruction Type:Provider Instructions for Treatment Patient Instructions Indication:Hypercholesteremia Start:02-Feb-2019 Instruction Type:Provider Instructions for Treatment How to access health informa tion online Indication:Smoker Start:02-Feb-2019 Instruction Type:Patient Education How to access health informa tion online - Detail Indication:Smoker Start:02-Feb-2019 Instruction Type:Patient Education How to access health informa tion online Indication:Tobacco use Start:14-Dec-2018 Instruction Type:Patient Education How to access health informa tion online - Detail Indication:Tobacco use Start:14-Dec-2018 Instruction Type:Patient Education Patient Instructions Indication:Tobacco use Start:14-Dec-2018 Instruction Type:Provider Instructions for Treatment How to access health informa tion online Indication:Smoker Start:30-Nov-2018 Instruction Type:Patient Education How to access health informa tion online - Detail Indication:Smoker Start:30-Nov-2018 Instruction Type:Patient Education Patient Instructions Indication:Smoker Start:30-Nov-2018 Instruction Type:Provider Instructions for Treatment How to access health informa tion online Indication:Nonsmoker Start:26-Oct-2018 Instruction Type:Patient Education How to access health informa tion online - Detail Indication:Nonsmoker Start:26-Oct-2018 Instruction Type:Patient Education Patient Instructions Indication:Nonsmoker Start:26-Oct-2018 Instruction Type:Provider Instructions for Treatment How to access health informa tion online Indication:Nonsmoker Start:14-Nov-2017 Instruction Type:Patient Education How to access health informa tion online - Detail Indication:Nonsmoker Start:14-Nov-2017 Instruction Type:Patient Education Patient Instructions Indication:Back pain, acute Start:14-Nov-2017 Instruction Type:Provider Instructions for Treatment How to access health informa tion online Indication:Impaired fasting glucose Start:05-Oct-2017 Instruction Type:Patient Education How to access health informa tion online - Detail Indication:Impaired fasting glucose Start:05-Oct-2017 Instruction Type:Patient Education Patient Instructions Indication:Impaired fasting glucose Start:05-Oct-2017 Instruction Type:Provider Instructions for Treatment How to access health informa tion online Indication:Impaired fasting glucose Start:24-Nov-2016 Instruction Type:Patient Education How to access health informa tion online - Detail Indication:Impaired fasting glucose Start:24-Nov-2016 Instruction Type:Patient Education Patient Instructions Indication:Impaired fasting glucose Start:24-Nov-2016 Instruction Type:Provider Instructions for Treatment How to access health informa tion online Indication:Impaired fasting glucose Start:21-Jul-2016 Instruction Type:Patient Education How to access health informa tion online - Detail Indication:Impaired fasting glucose Start:21-Jul-2016 Instruction Type:Patient Education Patient Instructions Indication:Impaired fasting glucose Start:21-Jul-2016 Instruction Type:Provider Instructions for Treatment Patient Instructions Indication:Torticollis Start:19-Mar-2016 Instruction Type:Provider Instructions for Treatment How to access health informa tion online Indication:Hypercholesteremia Start:19-Mar-2016 Instruction Type:Patient Education How to access health informa tion online - Detail Indication:Hypercholesteremia Start:19-Mar-2016 Instruction Type:Patient Education Patient Instructions Indication:Hypercholesteremia Start:19-Mar-2016 Instruction Type:Provider Instructions for Treatment How to access health informa tion online Indication:Hypercholesteremia Start:25-Aug-2015 Instruction Type:Patient Education How to access health informa tion online - Detail Indication:Hypercholesteremia Start:25-Aug-2015 Instruction Type:Patient Education Patient Instructions Indication:Hypercholesteremia Start:25-Aug-2015 Instruction Type:Provider Instructions for Treatment Patient Instructions Indication:Fever and chills Start:01-Oct-2014 Instruction Type:Provider Instructions for Treatment How to access health informa tion online Indication:Impaired fasting glucose Start:02-Sep-2014 Instruction Type:Patient Education How to access health informa tion online - Detail Indication:Impaired fasting glucose Start:02-Sep-2014 Instruction Type:Patient Education Patient Instructions Indication:Impaired fasting glucose Start:02-Sep-2014 Instruction Type:Provider Instructions for Treatment Patient Instructions Indication:Impaired fasting glucose Start:08-Oct-2013 Instruction Type:Provider Instructions for Treatment Patient Instructions Indication:Hypercholesteremia Start:01-Jan-2013 Instruction Type:Provider Instructions for Treatment Patient Instructions Indication:Gallstones Start:31-Oct-2012 Instruction Type:Provider Instructions for Treatment Patient Instructions Indication:Hematuria Start:20-Oct-2012 Instruction Type:Provider Instructions for Treatment [facility]; [facility] Work Phone: Instructions* Name Dates Details How to Access Health Informa tion Online using Patient Portal and [employer] Apps Indication:Smoker Start:19-Jan-2021 Instruction Type:Patient Education Patient Instructions Indication:Smoker Start:19-Jan-2021 Instruction Type:Provider Instructions for Treatment How to Access Health Informa tion Online using Patient Portal and [employer] Apps Indication:Smoker Start:01-Dec-2020 Instruction Type:Patient Education Patient Instructions Indication:Smoker Start:01-Dec-2020 Instruction Type:Provider Instructions for Treatment How to Access Health Informa tion Online using Patient Portal and [employer] Apps Indication:Smoker Start:01-Sep-2020 Instruction Type:Patient Education Patient Instructions Indication:Smoker Start:01-Sep-2020 Instruction Type:Provider Instructions for Treatment How to access health informa tion online Indication:Smoker Start:30-Apr-2020 Instruction Type:Patient Education How to access health informa tion online - Detail Indication:Need for prophylactic vaccination and inoculation against influenza (Renamed from Need for immunization against influenza) Start:30-Apr-2020 Instruction Type:Patient Education Patient Instructions Indication:Smoker Start:30-Apr-2020 Instruction Type:Provider Instructions for Treatment How to access health informa tion online Indication:BMI 24.0-24.9, adult Start:28-Jan-2020 Instruction Type:Patient Education How to access health informa tion online - Detail Indication:BMI 24.0-24.9, adult Start:28-Jan-2020 Instruction Type:Patient Education Patient Instructions Indication:BMI 24.0-24.9, adult Start:28-Jan-2020 Instruction Type:Provider Instructions for Treatment How to access health informa tion online Indication:BMI 23.0-23.9, adult Start:09-Jan-2020 Instruction Type:Patient Education How to access health informa tion online - Detail Indication:BMI 23.0-23.9, adult Start:09-Jan-2020 Instruction Type:Patient Education Patient Instructions Indication:BMI 23.0-23.9, adult Start:09-Jan-2020 Instruction Type:Provider Instructions for Treatment How to access health informa tion online Indication:Tobacco use Start:27-Dec-2019 Instruction Type:Patient Education How to access health informa tion online - Detail Indication:Tobacco use Start:27-Dec-2019 Instruction Type:Patient Education Patient Instructions Indication:Tobacco use Start:27-Dec-2019 Instruction Type:Provider Instructions for Treatment How to access health informa tion online Indication:BMI 23.0-23.9, adult Start:02-Aug-2019 Instruction Type:Patient Education How to access health informa tion online - Detail Indication:BMI 23.0-23.9, adult Start:02-Aug-2019 Instruction Type:Patient Education Patient Instructions Indication:BMI 23.0-23.9, adult Start:02-Aug-2019 Instruction Type:Provider Instructions for Treatment How to access health informa tion online Indication:Impaired fasting glucose Start:29-Mar-2019 Instruction Type:Patient Education How to access health informa tion online - Detail Indication:Impaired fasting glucose Start:29-Mar-2019 Instruction Type:Patient Education Patient Instructions Indication:Impaired fasting glucose Start:29-Mar-2019 Instruction Type:Provider Instructions for Treatment Patient Instructions Indication:Hypercholesteremia Start:02-Feb-2019 Instruction Type:Provider Instructions for Treatment How to access health informa tion online Indication:Smoker Start:02-Feb-2019 Instruction Type:Patient Education How to access health informa tion online - Detail Indication:Smoker Start:02-Feb-2019 Instruction Type:Patient Education How to access health informa tion online Indication:Tobacco use Start:14-Dec-2018 Instruction Type:Patient Education How to access health informa tion online - Detail Indication:Tobacco use Start:14-Dec-2018 Instruction Type:Patient Education Patient Instructions Indication:Tobacco use Start:14-Dec-2018 Instruction Type:Provider Instructions for Treatment How to access health informa tion online Indication:Smoker Start:30-Nov-2018 Instruction Type:Patient Education How to access health informa tion online - Detail Indication:Smoker Start:30-Nov-2018 Instruction Type:Patient Education Patient Instructions Indication:Smoker Start:30-Nov-2018 Instruction Type:Provider Instructions for Treatment How to access health informa tion online Indication:Nonsmoker Start:26-Oct-2018 Instruction Type:Patient Education How to access health informa tion online - Detail Indication:Nonsmoker Start:26-Oct-2018 Instruction Type:Patient Education Patient Instructions Indication:Nonsmoker Start:26-Oct-2018 Instruction Type:Provider Instructions for Treatment How to access health informa tion online Indication:Nonsmoker Start:14-Nov-2017 Instruction Type:Patient Education How to access health informa tion online - Detail Indication:Nonsmoker Start:14-Nov-2017 Instruction Type:Patient Education Patient Instructions Indication:Back pain, acute Start:14-Nov-2017 Instruction Type:Provider Instructions for Treatment How to access health informa tion online Indication:Impaired fasting glucose Start:05-Oct-2017 Instruction Type:Patient Education How to access health informa tion online - Detail Indication:Impaired fasting glucose Start:05-Oct-2017 Instruction Type:Patient Education Patient Instructions Indication:Impaired fasting glucose Start:05-Oct-2017 Instruction Type:Provider Instructions for Treatment How to access health informa tion online Indication:Impaired fasting glucose Start:24-Nov-2016 Instruction Type:Patient Education How to access health informa tion online - Detail Indication:Impaired fasting glucose Start:24-Nov-2016 Instruction Type:Patient Education Patient Instructions Indication:Impaired fasting glucose Start:24-Nov-2016 Instruction Type:Provider Instructions for Treatment How to access health informa tion online Indication:Impaired fasting glucose Start:21-Jul-2016 Instruction Type:Patient Education How to access health informa tion online - Detail Indication:Impaired fasting glucose Start:21-Jul-2016 Instruction Type:Patient Education Patient Instructions Indication:Impaired fasting glucose Start:21-Jul-2016 Instruction Type:Provider Instructions for Treatment Patient Instructions Indication:Torticollis Start:19-Mar-2016 Instruction Type:Provider Instructions for Treatment How to access health informa tion online Indication:Hypercholesteremia Start:19-Mar-2016 Instruction Type:Patient Education How to access health informa tion online - Detail Indication:Hypercholesteremia Start:19-Mar-2016 Instruction Type:Patient Education Patient Instructions Indication:Hypercholesteremia Start:19-Mar-2016 Instruction Type:Provider Instructions for Treatment How to access health informa tion online Indication:Hypercholesteremia Start:25-Aug-2015 Instruction Type:Patient Education How to access health informa tion online - Detail Indication:Hypercholesteremia Start:25-Aug-2015 Instruction Type:Patient Education Patient Instructions Indication:Hypercholesteremia Start:25-Aug-2015 Instruction Type:Provider Instructions for Treatment Patient Instructions Indication:Fever and chills Start:01-Oct-2014 Instruction Type:Provider Instructions for Treatment How to access health informa tion online Indication:Impaired fasting glucose Start:02-Sep-2014 Instruction Type:Patient Education How to access health informa tion online - Detail Indication:Impaired fasting glucose Start:02-Sep-2014 Instruction Type:Patient Education Patient Instructions Indication:Impaired fasting glucose Start:02-Sep-2014 Instruction Type:Provider Instructions for Treatment Patient Instructions Indication:Impaired fasting glucose Start:08-Oct-2013 Instruction Type:Provider Instructions for Treatment Patient Instructions Indication:Hypercholesteremia Start:01-Jan-2013 Instruction Type:Provider Instructions for Treatment Patient Instructions Indication:Gallstones Start:31-Oct-2012 Instruction Type:Provider Instructions for Treatment Patient Instructions Indication:Hematuria Start:20-Oct-2012 Instruction Type:Provider Instructions for Treatment [facility]; [facility] Work Phone: Instructions* Name Dates Details How to Access Health Informa tion Online using Patient Portal and [employer] Apps Indication:Smoker Start:19-Jan-2021 Instruction Type:Patient Education Patient Instructions Indication:Smoker Start:19-Jan-2021 Instruction Type:Provider Instructions for Treatment How to Access Health Informa tion Online using Patient Portal and [employer] Apps Indication:Smoker Start:01-Dec-2020 Instruction Type:Patient Education Patient Instructions Indication:Smoker Start:01-Dec-2020 Instruction Type:Provider Instructions for Treatment How to Access Health Informa tion Online using Patient Portal and [employer] Apps Indication:Smoker Start:01-Sep-2020 Instruction Type:Patient Education Patient Instructions Indication:Smoker Start:01-Sep-2020 Instruction Type:Provider Instructions for Treatment How to access health informa tion online Indication:Smoker Start:30-Apr-2020 Instruction Type:Patient Education How to access health informa tion online - Detail Indication:Need for prophylactic vaccination and inoculation against influenza (Renamed from Need for immunization against influenza) Start:30-Apr-2020 Instruction Type:Patient Education Patient Instructions Indication:Smoker Start:30-Apr-2020 Instruction Type:Provider Instructions for Treatment How to access health informa tion online Indication:BMI 24.0-24.9, adult Start:28-Jan-2020 Instruction Type:Patient Education How to access health informa tion online - Detail Indication:BMI 24.0-24.9, adult Start:28-Jan-2020 Instruction Type:Patient Education Patient Instructions Indication:BMI 24.0-24.9, adult Start:28-Jan-2020 Instruction Type:Provider Instructions for Treatment How to access health informa tion online Indication:BMI 23.0-23.9, adult Start:09-Jan-2020 Instruction Type:Patient Education How to access health informa tion online - Detail Indication:BMI 23.0-23.9, adult Start:09-Jan-2020 Instruction Type:Patient Education Patient Instructions Indication:BMI 23.0-23.9, adult Start:09-Jan-2020 Instruction Type:Provider Instructions for Treatment How to access health informa tion online Indication:Tobacco use Start:27-Dec-2019 Instruction Type:Patient Education How to access health informa tion online - Detail Indication:Tobacco use Start:27-Dec-2019 Instruction Type:Patient Education Patient Instructions Indication:Tobacco use Start:27-Dec-2019 Instruction Type:Provider Instructions for Treatment How to access health informa tion online Indication:BMI 23.0-23.9, adult Start:02-Aug-2019 Instruction Type:Patient Education How to access health informa tion online - Detail Indication:BMI 23.0-23.9, adult Start:02-Aug-2019 Instruction Type:Patient Education Patient Instructions Indication:BMI 23.0-23.9, adult Start:02-Aug-2019 Instruction Type:Provider Instructions for Treatment How to access health informa tion online Indication:Impaired fasting glucose Start:29-Mar-2019 Instruction Type:Patient Education How to access health informa tion online - Detail Indication:Impaired fasting glucose Start:29-Mar-2019 Instruction Type:Patient Education Patient Instructions Indication:Impaired fasting glucose Start:29-Mar-2019 Instruction Type:Provider Instructions for Treatment Patient Instructions Indication:Hypercholesteremia Start:02-Feb-2019 Instruction Type:Provider Instructions for Treatment How to access health informa tion online Indication:Smoker Start:02-Feb-2019 Instruction Type:Patient Education How to access health informa tion online - Detail Indication:Smoker Start:02-Feb-2019 Instruction Type:Patient Education How to access health informa tion online Indication:Tobacco use Start:14-Dec-2018 Instruction Type:Patient Education How to access health informa tion online - Detail Indication:Tobacco use Start:14-Dec-2018 Instruction Type:Patient Education Patient Instructions Indication:Tobacco use Start:14-Dec-2018 Instruction Type:Provider Instructions for Treatment How to access health informa tion online Indication:Smoker Start:30-Nov-2018 Instruction Type:Patient Education How to access health informa tion online - Detail Indication:Smoker Start:30-Nov-2018 Instruction Type:Patient Education Patient Instructions Indication:Smoker Start:30-Nov-2018 Instruction Type:Provider Instructions for Treatment How to access health informa tion online Indication:Nonsmoker Start:26-Oct-2018 Instruction Type:Patient Education How to access health informa tion online - Detail Indication:Nonsmoker Start:26-Oct-2018 Instruction Type:Patient Education Patient Instructions Indication:Nonsmoker Start:26-Oct-2018 Instruction Type:Provider Instructions for Treatment How to access health informa tion online Indication:Nonsmoker Start:14-Nov-2017 Instruction Type:Patient Education How to access health informa tion online - Detail Indication:Nonsmoker Start:14-Nov-2017 Instruction Type:Patient Education Patient Instructions Indication:Back pain, acute Start:14-Nov-2017 Instruction Type:Provider Instructions for Treatment How to access health informa tion online Indication:Impaired fasting glucose Start:05-Oct-2017 Instruction Type:Patient Education How to access health informa tion online - Detail Indication:Impaired fasting glucose Start:05-Oct-2017 Instruction Type:Patient Education Patient Instructions Indication:Impaired fasting glucose Start:05-Oct-2017 Instruction Type:Provider Instructions for Treatment How to access health informa tion online Indication:Impaired fasting glucose Start:24-Nov-2016 Instruction Type:Patient Education How to access health informa tion online - Detail Indication:Impaired fasting glucose Start:24-Nov-2016 Instruction Type:Patient Education Patient Instructions Indication:Impaired fasting glucose Start:24-Nov-2016 Instruction Type:Provider Instructions for Treatment How to access health informa tion online Indication:Impaired fasting glucose Start:21-Jul-2016 Instruction Type:Patient Education How to access health informa tion online - Detail Indication:Impaired fasting glucose Start:21-Jul-2016 Instruction Type:Patient Education Patient Instructions Indication:Impaired fasting glucose Start:21-Jul-2016 Instruction Type:Provider Instructions for Treatment Patient Instructions Indication:Torticollis Start:19-Mar-2016 Instruction Type:Provider Instructions for Treatment How to access health informa tion online Indication:Hypercholesteremia Start:19-Mar-2016 Instruction Type:Patient Education How to access health informa tion online - Detail Indication:Hypercholesteremia Start:19-Mar-2016 Instruction Type:Patient Education Patient Instructions Indication:Hypercholesteremia Start:19-Mar-2016 Instruction Type:Provider Instructions for Treatment How to access health informa tion online Indication:Hypercholesteremia Start:25-Aug-2015 Instruction Type:Patient Education How to access health informa tion online - Detail Indication:Hypercholesteremia Start:25-Aug-2015 Instruction Type:Patient Education Patient Instructions Indication:Hypercholesteremia Start:25-Aug-2015 Instruction Type:Provider Instructions for Treatment Patient Instructions Indication:Fever and chills Start:01-Oct-2014 Instruction Type:Provider Instructions for Treatment How to access health informa tion online Indication:Impaired fasting glucose Start:02-Sep-2014 Instruction Type:Patient Education How to access health informa tion online - Detail Indication:Impaired fasting glucose Start:02-Sep-2014 Instruction Type:Patient Education Patient Instructions Indication:Impaired fasting glucose Start:02-Sep-2014 Instruction Type:Provider Instructions for Treatment Patient Instructions Indication:Impaired fasting glucose Start:08-Oct-2013 Instruction Type:Provider Instructions for Treatment Patient Instructions Indication:Hypercholesteremia Start:01-Jan-2013 Instruction Type:Provider Instructions for Treatment Patient Instructions Indication:Gallstones Start:31-Oct-2012 Instruction Type:Provider Instructions for Treatment Patient Instructions Indication:Hematuria Start:20-Oct-2012 Instruction Type:Provider Instructions for Treatment [facility]; [facility] Work Phone: Instructions* Name Dates Details Patient Instructions Indication:Smoker Start:01-Jun-2021 Instruction Type:Provider Instructions for Treatment How to Access Health Informa [employer] using Patient Portal and [employer] Apps Indication:Smoker Start:01-Jun-2021 Instruction Type:Patient Education Patient Instructions Indication:BMI 23.0-23.9, adult Start:06-Apr-2021 Instruction Type:Provider Instructions for Treatment How to Access Health Informa tion Online using Patient Portal and [employer] Apps Indication:BMI 23.0-23.9, adult Start:06-Apr-2021 Instruction Type:Patient Education How to Access Health Informa tion Online using Patient Portal and [employer] Apps Indication:Smoker Start:19-Jan-2021 Instruction Type:Patient Education Patient Instructions Indication:Smoker Start:19-Jan-2021 Instruction Type:Provider Instructions for Treatment How to Access Health Informa tion Online using Patient Portal and [employer] Apps Indication:Smoker Start:01-Dec-2020 Instruction Type:Patient Education Patient Instructions Indication:Smoker Start:01-Dec-2020 Instruction Type:Provider Instructions for Treatment How to Access Health Informa tion Online using Patient Portal and [employer] Apps Indication:Smoker Start:01-Sep-2020 Instruction Type:Patient Education Patient Instructions Indication:Smoker Start:01-Sep-2020 Instruction Type:Provider Instructions for Treatment How to access health informa tion online Indication:Smoker Start:30-Apr-2020 Instruction Type:Patient Education How to access health informa tion online - Detail Indication:Need for prophylactic vaccination and inoculation against influenza (Renamed from Need for immunization against influenza) Start:30-Apr-2020 Instruction Type:Patient Education Patient Instructions Indication:Smoker Start:30-Apr-2020 Instruction Type:Provider Instructions for Treatment How to access health informa tion online Indication:BMI 24.0-24.9, adult Start:28-Jan-2020 Instruction Type:Patient Education How to access health informa tion online - Detail Indication:BMI 24.0-24.9, adult Start:28-Jan-2020 Instruction Type:Patient Education Patient Instructions Indication:BMI 24.0-24.9, adult Start:28-Jan-2020 Instruction Type:Provider Instructions for Treatment How to access health informa tion online Indication:BMI 23.0-23.9, adult Start:09-Jan-2020 Instruction Type:Patient Education How to access health informa tion online - Detail Indication:BMI 23.0-23.9, adult Start:09-Jan-2020 Instruction Type:Patient Education Patient Instructions Indication:BMI 23.0-23.9, adult Start:09-Jan-2020 Instruction Type:Provider Instructions for Treatment How to access health informa tion online Indication:Tobacco use Start:27-Dec-2019 Instruction Type:Patient Education How to access health informa tion online - Detail Indication:Tobacco use Start:27-Dec-2019 Instruction Type:Patient Education Patient Instructions Indication:Tobacco use Start:27-Dec-2019 Instruction Type:Provider Instructions for Treatment How to access health informa tion online Indication:BMI 23.0-23.9, adult Start:02-Aug-2019 Instruction Type:Patient Education How to access health informa tion online - Detail Indication:BMI 23.0-23.9, adult Start:02-Aug-2019 Instruction Type:Patient Education Patient Instructions Indication:BMI 23.0-23.9, adult Start:02-Aug-2019 Instruction Type:Provider Instructions for Treatment How to access health informa tion online Indication:Impaired fasting glucose Start:29-Mar-2019 Instruction Type:Patient Education How to access health informa tion online - Detail Indication:Impaired fasting glucose Start:29-Mar-2019 Instruction Type:Patient Education Patient Instructions Indication:Impaired fasting glucose Start:29-Mar-2019 Instruction Type:Provider Instructions for Treatment Patient Instructions Indication:Hypercholesteremia Start:02-Feb-2019 Instruction Type:Provider Instructions for Treatment How to access health informa tion online Indication:Smoker Start:02-Feb-2019 Instruction Type:Patient Education How to access health informa tion online - Detail Indication:Smoker Start:02-Feb-2019 Instruction Type:Patient Education How to access health informa tion online Indication:Tobacco use Start:14-Dec-2018 Instruction Type:Patient Education How to access health informa tion online - Detail Indication:Tobacco use Start:14-Dec-2018 Instruction Type:Patient Education Patient Instructions Indication:Tobacco use Start:14-Dec-2018 Instruction Type:Provider Instructions for Treatment How to access health informa tion online Indication:Smoker Start:30-Nov-2018 Instruction Type:Patient Education How to access health informa tion online - Detail Indication:Smoker Start:30-Nov-2018 Instruction Type:Patient Education Patient Instructions Indication:Smoker Start:30-Nov-2018 Instruction Type:Provider Instructions for Treatment How to access health informa tion online Indication:Nonsmoker Start:26-Oct-2018 Instruction Type:Patient Education How to access health informa tion online - Detail Indication:Nonsmoker Start:26-Oct-2018 Instruction Type:Patient Education Patient Instructions Indication:Nonsmoker Start:26-Oct-2018 Instruction Type:Provider Instructions for Treatment How to access health informa tion online Indication:Nonsmoker Start:14-Nov-2017 Instruction Type:Patient Education How to access health informa tion online - Detail Indication:Nonsmoker Start:14-Nov-2017 Instruction Type:Patient Education Patient Instructions Indication:Back pain, acute Start:14-Nov-2017 Instruction Type:Provider Instructions for Treatment How to access health informa tion online Indication:Impaired fasting glucose Start:05-Oct-2017 Instruction Type:Patient Education How to access health informa tion online - Detail Indication:Impaired fasting glucose Start:05-Oct-2017 Instruction Type:Patient Education Patient Instructions Indication:Impaired fasting glucose Start:05-Oct-2017 Instruction Type:Provider Instructions for Treatment How to access health informa tion online Indication:Impaired fasting glucose Start:24-Nov-2016 Instruction Type:Patient Education How to access health informa tion online - Detail Indication:Impaired fasting glucose Start:24-Nov-2016 Instruction Type:Patient Education Patient Instructions Indication:Impaired fasting glucose Start:24-Nov-2016 Instruction Type:Provider Instructions for Treatment How to access health informa tion online Indication:Impaired fasting glucose Start:21-Jul-2016 Instruction Type:Patient Education How to access health informa tion online - Detail Indication:Impaired fasting glucose Start:21-Jul-2016 Instruction Type:Patient Education Patient Instructions Indication:Impaired fasting glucose Start:21-Jul-2016 Instruction Type:Provider Instructions for Treatment Patient Instructions Indication:Torticollis Start:19-Mar-2016 Instruction Type:Provider Instructions for Treatment How to access health informa tion online Indication:Hypercholesteremia Start:19-Mar-2016 Instruction Type:Patient Education How to access health informa tion online - Detail Indication:Hypercholesteremia Start:19-Mar-2016 Instruction Type:Patient Education Patient Instructions Indication:Hypercholesteremia Start:19-Mar-2016 Instruction Type:Provider Instructions for Treatment How to access health informa tion online Indication:Hypercholesteremia Start:25-Aug-2015 Instruction Type:Patient Education How to access health informa tion online - Detail Indication:Hypercholesteremia Start:25-Aug-2015 Instruction Type:Patient Education Patient Instructions Indication:Hypercholesteremia Start:25-Aug-2015 Instruction Type:Provider Instructions for Treatment Patient Instructions Indication:Fever and chills Start:01-Oct-2014 Instruction Type:Provider Instructions for Treatment How to access health informa tion online Indication:Impaired fasting glucose Start:02-Sep-2014 Instruction Type:Patient Education How to access health informa tion online - Detail Indication:Impaired fasting glucose Start:02-Sep-2014 Instruction Type:Patient Education Patient Instructions Indication:Impaired fasting glucose Start:02-Sep-2014 Instruction Type:Provider Instructions for Treatment Patient Instructions Indication:Impaired fasting glucose Start:08-Oct-2013 Instruction Type:Provider Instructions for Treatment Patient Instructions Indication:Hypercholesteremia Start:01-Jan-2013 Instruction Type:Provider Instructions for Treatment Patient Instructions Indication:Gallstones Start:31-Oct-2012 Instruction Type:Provider Instructions for Treatment Patient Instructions Indication:Hematuria Start:20-Oct-2012 Instruction Type:Provider Instructions for Treatment [facility]; [facility] Work Phone: Instructions* Name Dates Details Patient Instructions Indication:Smoker Start:21-Oct-2021 Instruction Type:Provider Instructions for Treatment How to Access Health Informa tion Online using Patient Portal and [employer] Apps Indication:Smoker Start:21-Oct-2021 Instruction Type:Patient Education Patient Instructions Indication:Smoker Start:01-Jun-2021 Instruction Type:Provider Instructions for Treatment How to Access Health Informa tion Online using Patient Portal and [employer] Apps Indication:Smoker Start:01-Jun-2021 Instruction Type:Patient Education Patient Instructions Indication:BMI 23.0-23.9, adult Start:06-Apr-2021 Instruction Type:Provider Instructions for Treatment How to Access Health Informa tion Online using Patient Portal and [employer] Apps Indication:BMI 23.0-23.9, adult Start:06-Apr-2021 Instruction Type:Patient Education How to Access Health Informa tion Online using Patient Portal and [employer] Apps Indication:Smoker Start:19-Jan-2021 Instruction Type:Patient Education Patient Instructions Indication:Smoker Start:19-Jan-2021 Instruction Type:Provider Instructions for Treatment How to Access Health Informa tion Online using Patient Portal and [employer] Apps Indication:Smoker Start:01-Dec-2020 Instruction Type:Patient Education Patient Instructions Indication:Smoker Start:01-Dec-2020 Instruction Type:Provider Instructions for Treatment How to Access Health Informa tion Online using Patient Portal and [employer] Indication:Smoker Start:01-Sep-2020 Instruction Type:Patient Education Patient Instructions Indication:Smoker Start:01-Sep-2020 Instruction Type:Provider Instructions for Treatment How to access health informa tion online Indication:Smoker Start:30-Apr-2020 Instruction Type:Patient Education How to access health informa tion online - Detail Indication:Need for prophylactic vaccination and inoculation against influenza (Renamed from Need for immunization against influenza) Start:30-Apr-2020 Instruction Type:Patient Education Patient Instructions Indication:Smoker Start:30-Apr-2020 Instruction Type:Provider Instructions for Treatment How to access health informa tion online Indication:BMI 24.0-24.9, adult Start:28-Jan-2020 Instruction Type:Patient Education How to access health informa tion online - Detail Indication:BMI 24.0-24.9, adult Start:28-Jan-2020 Instruction Type:Patient Education Patient Instructions Indication:BMI 24.0-24.9, adult Start:28-Jan-2020 Instruction Type:Provider Instructions for Treatment How to access health informa tion online Indication:BMI 23.0-23.9, adult Start:09-Jan-2020 Instruction Type:Patient Education How to access health informa tion online - Detail Indication:BMI 23.0-23.9, adult Start:09-Jan-2020 Instruction Type:Patient Education Patient Instructions Indication:BMI 23.0-23.9, adult Start:09-Jan-2020 Instruction Type:Provider Instructions for Treatment How to access health informa tion online Indication:Tobacco use Start:27-Dec-2019 Instruction Type:Patient Education How to access health informa tion online - Detail Indication:Tobacco use Start:27-Dec-2019 Instruction Type:Patient Education Patient Instructions Indication:Tobacco use Start:27-Dec-2019 Instruction Type:Provider Instructions for Treatment How to access health informa tion online Indication:BMI 23.0-23.9, adult Start:02-Aug-2019 Instruction Type:Patient Education How to access health informa tion online - Detail Indication:BMI 23.0-23.9, adult Start:02-Aug-2019 Instruction Type:Patient Education Patient Instructions Indication:BMI 23.0-23.9, adult Start:02-Aug-2019 Instruction Type:Provider Instructions for Treatment How to access health informa tion online Indication:Impaired fasting glucose Start:29-Mar-2019 Instruction Type:Patient Education How to access health informa tion online - Detail Indication:Impaired fasting glucose Start:29-Mar-2019 Instruction Type:Patient Education Patient Instructions Indication:Impaired fasting glucose Start:29-Mar-2019 Instruction Type:Provider Instructions for Treatment Patient Instructions Indication:Hypercholesteremia Start:02-Feb-2019 Instruction Type:Provider Instructions for Treatment How to access health informa tion online Indication:Smoker Start:02-Feb-2019 Instruction Type:Patient Education How to access health informa tion online - Detail Indication:Smoker Start:02-Feb-2019 Instruction Type:Patient Education How to access health informa tion online Indication:Tobacco use Start:14-Dec-2018 Instruction Type:Patient Education How to access health informa tion online - Detail Indication:Tobacco use Start:14-Dec-2018 Instruction Type:Patient Education Patient Instructions Indication:Tobacco use Start:14-Dec-2018 Instruction Type:Provider Instructions for Treatment How to access health informa tion online Indication:Smoker Start:30-Nov-2018 Instruction Type:Patient Education How to access health informa tion online - Detail Indication:Smoker Start:30-Nov-2018 Instruction Type:Patient Education Patient Instructions Indication:Smoker Start:30-Nov-2018 Instruction Type:Provider Instructions for Treatment How to access health informa tion online Indication:Nonsmoker Start:26-Oct-2018 Instruction Type:Patient Education How to access health informa tion online - Detail Indication:Nonsmoker Start:26-Oct-2018 Instruction Type:Patient Education Patient Instructions Indication:Nonsmoker Start:26-Oct-2018 Instruction Type:Provider Instructions for Treatment How to access health informa tion online Indication:Nonsmoker Start:14-Nov-2017 Instruction Type:Patient Education How to access health informa tion online - Detail Indication:Nonsmoker Start:14-Nov-2017 Instruction Type:Patient Education Patient Instructions Indication:Back pain, acute Start:14-Nov-2017 Instruction Type:Provider Instructions for Treatment How to access health informa tion online Indication:Impaired fasting glucose Start:05-Oct-2017 Instruction Type:Patient Education How to access health informa tion online - Detail Indication:Impaired fasting glucose Start:05-Oct-2017 Instruction Type:Patient Education Patient Instructions Indication:Impaired fasting glucose Start:05-Oct-2017 Instruction Type:Provider Instructions for Treatment How to access health informa [employer] online Indication:Impaired fasting glucose Start:24-Nov-2016 Instruction Type:Patient Education How to access health informa tion online - Detail Indication:Impaired fasting glucose Start:24-Nov-2016 Instruction Type:Patient Education Patient Instructions Indication:Impaired fasting glucose Start:24-Nov-2016 Instruction Type:Provider Instructions for Treatment How to access health informa [employer] online Indication:Impaired fasting glucose Start:21-Jul-2016 Instruction Type:Patient Education How to access health informa tion online - Detail Indication:Impaired fasting glucose Start:21-Jul-2016 Instruction Type:Patient Education Patient Instructions Indication:Impaired fasting glucose Start:21-Jul-2016 Instruction Type:Provider Instructions for Treatment Patient Instructions Indication:Torticollis Start:19-Mar-2016 Instruction Type:Provider Instructions for Treatment How to access health informa [employer] online Indication:Hypercholesteremia Start:19-Mar-2016 Instruction Type:Patient Education How to access health informa tion online - Detail Indication:Hypercholesteremia Start:19-Mar-2016 Instruction Type:Patient Education Patient Instructions Indication:Hypercholesteremia Start:19-Mar-2016 Instruction Type:Provider Instructions for Treatment How to access health informa [employer] online Indication:Hypercholesteremia Start:25-Aug-2015 Instruction Type:Patient Education How to access health informa tion online - Detail Indication:Hypercholesteremia Start:25-Aug-2015 Instruction Type:Patient Education Patient Instructions Indication:Hypercholesteremia Start:25-Aug-2015 Instruction Type:Provider Instructions for Treatment Patient Instructions Indication:Fever and chills Start:01-Oct-2014 Instruction Type:Provider Instructions for Treatment How to access health informa [employer] online Indication:Impaired fasting glucose Start:02-Sep-2014 Instruction Type:Patient Education How to access health informa tion online - Detail Indication:Impaired fasting glucose Start:02-Sep-2014 Instruction Type:Patient Education Patient Instructions Indication:Impaired fasting glucose Start:02-Sep-2014 Instruction Type:Provider Instructions for Treatment Patient Instructions Indication:Impaired fasting glucose Start:08-Oct-2013 Instruction Type:Provider Instructions for Treatment Patient Instructions Indication:Hypercholesteremia Start:01-Jan-2013 Instruction Type:Provider Instructions for Treatment Patient Instructions Indication:Gallstones Start:31-Oct-2012 Instruction Type:Provider Instructions for Treatment Patient Instructions Indication:Hematuria Start:20-Oct-2012 Instruction Type:Provider Instructions for Treatment [facility]; [facility] Work Phone: Instructions* Name Dates Details How to Access Health Informa tion Online using Patient Portal and [employer] Apps Indication:Smoker Start:29-Jan-2022 Instruction Type:Patient Education Patient Instructions Indication:Smoker Start:29-Jan-2022 Instruction Type:Provider Instructions for Treatment Patient Instructions Indication:Smoker Start:21-Oct-2021 Instruction Type:Provider Instructions for Treatment How to Access Health Informa tion Online using Patient Portal and [employer] Apps Indication:Smoker Start:21-Oct-2021 Instruction Type:Patient Education Patient Instructions Indication:Smoker Start:01-Jun-2021 Instruction Type:Provider Instructions for Treatment How to Access Health Informa tion Online using Patient Portal and [employer] Apps Indication:Smoker Start:01-Jun-2021 Instruction Type:Patient Education Patient Instructions Indication:BMI 23.0-23.9, adult Start:06-Apr-2021 Instruction Type:Provider Instructions for Treatment How to Access Health Informa tion Online using Patient Portal and [employer] Apps Indication:BMI 23.0-23.9, adult Start:06-Apr-2021 Instruction Type:Patient Education How to Access Health Informa tion Online using Patient Portal and [employer] Apps Indication:Smoker Start:19-Jan-2021 Instruction Type:Patient Education Patient Instructions Indication:Smoker Start:19-Jan-2021 Instruction Type:Provider Instructions for Treatment How to Access Health Informa tion Online using Patient Portal and [employer] Apps Indication:Smoker Start:01-Dec-2020 Instruction Type:Patient Education Patient Instructions Indication:Smoker Start:01-Dec-2020 Instruction Type:Provider Instructions for Treatment How to Access Health Informa tion Online using Patient Portal and [employer] Apps Indication:Smoker Start:01-Sep-2020 Instruction Type:Patient Education Patient Instructions Indication:Smoker Start:01-Sep-2020 Instruction Type:Provider Instructions for Treatment How to access health informa tion online Indication:Smoker Start:30-Apr-2020 Instruction Type:Patient Education How to access health informa tion online - Detail Indication:Need for prophylactic vaccination and inoculation against influenza (Renamed from Need for immunization against influenza) Start:30-Apr-2020 Instruction Type:Patient Education Patient Instructions Indication:Smoker Start:30-Apr-2020 Instruction Type:Provider Instructions for Treatment How to access health informa tion online Indication:BMI 24.0-24.9, adult Start:28-Jan-2020 Instruction Type:Patient Education How to access health informa tion online - Detail Indication:BMI 24.0-24.9, adult Start:28-Jan-2020 Instruction Type:Patient Education Patient Instructions Indication:BMI 24.0-24.9, adult Start:28-Jan-2020 Instruction Type:Provider Instructions for Treatment How to access health informa tion online Indication:BMI 23.0-23.9, adult Start:09-Jan-2020 Instruction Type:Patient Education How to access health informa tion online - Detail Indication:BMI 23.0-23.9, adult Start:09-Jan-2020 Instruction Type:Patient Education Patient Instructions Indication:BMI 23.0-23.9, adult Start:09-Jan-2020 Instruction Type:Provider Instructions for Treatment How to access health informa tion online Indication:Tobacco use Start:27-Dec-2019 Instruction Type:Patient Education How to access health informa tion online - Detail Indication:Tobacco use Start:27-Dec-2019 Instruction Type:Patient Education Patient Instructions Indication:Tobacco use Start:27-Dec-2019 Instruction Type:Provider Instructions for Treatment How to access health informa tion online Indication:BMI 23.0-23.9, adult Start:02-Aug-2019 Instruction Type:Patient Education How to access health informa tion online - Detail Indication:BMI 23.0-23.9, adult Start:02-Aug-2019 Instruction Type:Patient Education Patient Instructions Indication:BMI 23.0-23.9, adult Start:02-Aug-2019 Instruction Type:Provider Instructions for Treatment How to access health informa tion online Indication:Impaired fasting glucose Start:29-Mar-2019 Instruction Type:Patient Education How to access health informa tion online - Detail Indication:Impaired fasting glucose Start:29-Mar-2019 Instruction Type:Patient Education Patient Instructions Indication:Impaired fasting glucose Start:29-Mar-2019 Instruction Type:Provider Instructions for Treatment Patient Instructions Indication:Hypercholesteremia Start:02-Feb-2019 Instruction Type:Provider Instructions for Treatment How to access health informa tion online Indication:Smoker Start:02-Feb-2019 Instruction Type:Patient Education How to access health informa tion online - Detail Indication:Smoker Start:02-Feb-2019 Instruction Type:Patient Education How to access health informa tion online Indication:Tobacco use Start:14-Dec-2018 Instruction Type:Patient Education How to access health informa tion online - Detail Indication:Tobacco use Start:14-Dec-2018 Instruction Type:Patient Education Patient Instructions Indication:Tobacco use Start:14-Dec-2018 Instruction Type:Provider Instructions for Treatment How to access health informa tion online Indication:Smoker Start:30-Nov-2018 Instruction Type:Patient Education How to access health informa tion online - Detail Indication:Smoker Start:30-Nov-2018 Instruction Type:Patient Education Patient Instructions Indication:Smoker Start:30-Nov-2018 Instruction Type:Provider Instructions for Treatment How to access health informa tion online Indication:Nonsmoker Start:26-Oct-2018 Instruction Type:Patient Education How to access health informa tion online - Detail Indication:Nonsmoker Start:26-Oct-2018 Instruction Type:Patient Education Patient Instructions Indication:Nonsmoker Start:26-Oct-2018 Instruction Type:Provider Instructions for Treatment How to access health informa tion online Indication:Nonsmoker Start:14-Nov-2017 Instruction Type:Patient Education How to access health informa tion online - Detail Indication:Nonsmoker Start:14-Nov-2017 Instruction Type:Patient Education Patient Instructions Indication:Back pain, acute Start:14-Nov-2017 Instruction Type:Provider Instructions for Treatment How to access health informa tion online Indication:Impaired fasting glucose Start:05-Oct-2017 Instruction Type:Patient Education How to access health informa tion online - Detail Indication:Impaired fasting glucose Start:05-Oct-2017 Instruction Type:Patient Education Patient Instructions Indication:Impaired fasting glucose Start:05-Oct-2017 Instruction Type:Provider Instructions for Treatment How to access health informa tion online Indication:Impaired fasting glucose Start:24-Nov-2016 Instruction Type:Patient Education How to access health informa tion online - Detail Indication:Impaired fasting glucose Start:24-Nov-2016 Instruction Type:Patient Education Patient Instructions Indication:Impaired fasting glucose Start:24-Nov-2016 Instruction Type:Provider Instructions for Treatment How to access health informa tion online Indication:Impaired fasting glucose Start:21-Jul-2016 Instruction Type:Patient Education How to access health informa tion online - Detail Indication:Impaired fasting glucose Start:21-Jul-2016 Instruction Type:Patient Education Patient Instructions Indication:Impaired fasting glucose Start:21-Jul-2016 Instruction Type:Provider Instructions for Treatment Patient Instructions Indication:Torticollis Start:19-Mar-2016 Instruction Type:Provider Instructions for Treatment How to access health informa [employer] online Indication:Hypercholesteremia Start:19-Mar-2016 Instruction Type:Patient Education How to access health informa tion online - Detail Indication:Hypercholesteremia Start:19-Mar-2016 Instruction Type:Patient Education Patient Instructions Indication:Hypercholesteremia Start:19-Mar-2016 Instruction Type:Provider Instructions for Treatment How to access health informa [employer] online Indication:Hypercholesteremia Start:25-Aug-2015 Instruction Type:Patient Education How to access health informa tion online - Detail Indication:Hypercholesteremia Start:25-Aug-2015 Instruction Type:Patient Education Patient Instructions Indication:Hypercholesteremia Start:25-Aug-2015 Instruction Type:Provider Instructions for Treatment Patient Instructions Indication:Fever and chills Start:01-Oct-2014 Instruction Type:Provider Instructions for Treatment How to access health informa [employer] online Indication:Impaired fasting glucose Start:02-Sep-2014 Instruction Type:Patient Education How to access health informa tion online - Detail Indication:Impaired fasting glucose Start:02-Sep-2014 Instruction Type:Patient Education Patient Instructions Indication:Impaired fasting glucose Start:02-Sep-2014 Instruction Type:Provider Instructions for Treatment Patient Instructions Indication:Impaired fasting glucose Start:08-Oct-2013 Instruction Type:Provider Instructions for Treatment Patient Instructions Indication:Hypercholesteremia Start:01-Jan-2013 Instruction Type:Provider Instructions for Treatment Patient Instructions Indication:Gallstones Start:31-Oct-2012 Instruction Type:Provider Instructions for Treatment Patient Instructions Indication:Hematuria Start:20-Oct-2012 Instruction Type:Provider Instructions for Treatment [facility]; [facility] Work Phone: Instructions* Name Dates Details How to Access [employer] using Patient Portal and [employer] Apps Indication:Smoker Start:29-Jan-2022 Instruction Type:Patient Education Patient Instructions Indication:Smoker Start:29-Jan-2022 Instruction Type:Provider Instructions for Treatment Patient Instructions Indication:Smoker Start:21-Oct-2021 Instruction Type:Provider Instructions for Treatment How to Access Health Informa tion Online using Patient Portal and [employer] Apps Indication:Smoker Start:21-Oct-2021 Instruction Type:Patient Education Patient Instructions Indication:Smoker Start:01-Jun-2021 Instruction Type:Provider Instructions for Treatment How to Access Health Informa tion Online using Patient Portal and [employer] Apps Indication:Smoker Start:01-Jun-2021 Instruction Type:Patient Education Patient Instructions Indication:BMI 23.0-23.9, adult Start:06-Apr-2021 Instruction Type:Provider Instructions for Treatment How to Access Health Informa tion Online using Patient Portal and [employer] Apps Indication:BMI 23.0-23.9, adult Start:06-Apr-2021 Instruction Type:Patient Education How to Access Health Informa tion Online using Patient Portal and [employer] Apps Indication:Smoker Start:19-Jan-2021 Instruction Type:Patient Education Patient Instructions Indication:Smoker Start:19-Jan-2021 Instruction Type:Provider Instructions for Treatment How to Access Health Informa tion Online using Patient Portal and [employer] Apps Indication:Smoker Start:01-Dec-2020 Instruction Type:Patient Education Patient Instructions Indication:Smoker Start:01-Dec-2020 Instruction Type:Provider Instructions for Treatment How to Access Health Informa tion Online using Patient Portal and [employer] Apps Indication:Smoker Start:01-Sep-2020 Instruction Type:Patient Education Patient Instructions Indication:Smoker Start:01-Sep-2020 Instruction Type:Provider Instructions for Treatment How to access health informa tion online Indication:Smoker Start:30-Apr-2020 Instruction Type:Patient Education How to access health informa tion online - Detail Indication:Need for prophylactic vaccination and inoculation against influenza (Renamed from Need for immunization against influenza) Start:30-Apr-2020 Instruction Type:Patient Education Patient Instructions Indication:Smoker Start:30-Apr-2020 Instruction Type:Provider Instructions for Treatment How to access health informa tion online Indication:BMI 24.0-24.9, adult Start:28-Jan-2020 Instruction Type:Patient Education How to access health informa tion online - Detail Indication:BMI 24.0-24.9, adult Start:28-Jan-2020 Instruction Type:Patient Education Patient Instructions Indication:BMI 24.0-24.9, adult Start:28-Jan-2020 Instruction Type:Provider Instructions for Treatment How to access health informa tion online Indication:BMI 23.0-23.9, adult Start:09-Jan-2020 Instruction Type:Patient Education How to access health informa tion online - Detail Indication:BMI 23.0-23.9, adult Start:09-Jan-2020 Instruction Type:Patient Education Patient Instructions Indication:BMI 23.0-23.9, adult Start:09-Jan-2020 Instruction Type:Provider Instructions for Treatment How to access health informa tion online Indication:Tobacco use Start:27-Dec-2019 Instruction Type:Patient Education How to access health informa tion online - Detail Indication:Tobacco use Start:27-Dec-2019 Instruction Type:Patient Education Patient Instructions Indication:Tobacco use Start:27-Dec-2019 Instruction Type:Provider Instructions for Treatment How to access health informa tion online Indication:BMI 23.0-23.9, adult Start:02-Aug-2019 Instruction Type:Patient Education How to access health informa tion online - Detail Indication:BMI 23.0-23.9, adult Start:02-Aug-2019 Instruction Type:Patient Education Patient Instructions Indication:BMI 23.0-23.9, adult Start:02-Aug-2019 Instruction Type:Provider Instructions for Treatment How to access health informa tion online Indication:Impaired fasting glucose Start:29-Mar-2019 Instruction Type:Patient Education How to access health informa tion online - Detail Indication:Impaired fasting glucose Start:29-Mar-2019 Instruction Type:Patient Education Patient Instructions Indication:Impaired fasting glucose Start:29-Mar-2019 Instruction Type:Provider Instructions for Treatment Patient Instructions Indication:Hypercholesteremia Start:02-Feb-2019 Instruction Type:Provider Instructions for Treatment How to access health informa tion online Indication:Smoker Start:02-Feb-2019 Instruction Type:Patient Education How to access health informa tion online - Detail Indication:Smoker Start:02-Feb-2019 Instruction Type:Patient Education How to access health informa tion online Indication:Tobacco use Start:14-Dec-2018 Instruction Type:Patient Education How to access health informa tion online - Detail Indication:Tobacco use Start:14-Dec-2018 Instruction Type:Patient Education Patient Instructions Indication:Tobacco use Start:14-Dec-2018 Instruction Type:Provider Instructions for Treatment How to access health informa tion online Indication:Smoker Start:30-Nov-2018 Instruction Type:Patient Education How to access health informa tion online - Detail Indication:Smoker Start:30-Nov-2018 Instruction Type:Patient Education Patient Instructions Indication:Smoker Start:30-Nov-2018 Instruction Type:Provider Instructions for Treatment How to access health informa tion online Indication:Nonsmoker Start:26-Oct-2018 Instruction Type:Patient Education How to access health informa tion online - Detail Indication:Nonsmoker Start:26-Oct-2018 Instruction Type:Patient Education Patient Instructions Indication:Nonsmoker Start:26-Oct-2018 Instruction Type:Provider Instructions for Treatment How to access health informa tion online Indication:Nonsmoker Start:14-Nov-2017 Instruction Type:Patient Education How to access health informa tion online - Detail Indication:Nonsmoker Start:14-Nov-2017 Instruction Type:Patient Education Patient Instructions Indication:Back pain, acute Start:14-Nov-2017 Instruction Type:Provider Instructions for Treatment How to access health informa tion online Indication:Impaired fasting glucose Start:05-Oct-2017 Instruction Type:Patient Education How to access health informa tion online - Detail Indication:Impaired fasting glucose Start:05-Oct-2017 Instruction Type:Patient Education Patient Instructions Indication:Impaired fasting glucose Start:05-Oct-2017 Instruction Type:Provider Instructions for Treatment How to access health informa tion online Indication:Impaired fasting glucose Start:24-Nov-2016 Instruction Type:Patient Education How to access health informa tion online - Detail Indication:Impaired fasting glucose Start:24-Nov-2016 Instruction Type:Patient Education Patient Instructions Indication:Impaired fasting glucose Start:24-Nov-2016 Instruction Type:Provider Instructions for Treatment How to access health informa tion online Indication:Impaired fasting glucose Start:21-Jul-2016 Instruction Type:Patient Education How to access health informa tion online - Detail Indication:Impaired fasting glucose Start:21-Jul-2016 Instruction Type:Patient Education Patient Instructions Indication:Impaired fasting glucose Start:21-Jul-2016 Instruction Type:Provider Instructions for Treatment Patient Instructions Indication:Torticollis Start:19-Mar-2016 Instruction Type:Provider Instructions for Treatment How to access health informa tion online Indication:Hypercholesteremia Start:19-Mar-2016 Instruction Type:Patient Education How to access health informa tion online - Detail Indication:Hypercholesteremia Start:19-Mar-2016 Instruction Type:Patient Education Patient Instructions Indication:Hypercholesteremia Start:19-Mar-2016 Instruction Type:Provider Instructions for Treatment How to access health informa tion online Indication:Hypercholesteremia Start:25-Aug-2015 Instruction Type:Patient Education How to access health informa tion online - Detail Indication:Hypercholesteremia Start:25-Aug-2015 Instruction Type:Patient Education Patient Instructions Indication:Hypercholesteremia Start:25-Aug-2015 Instruction Type:Provider Instructions for Treatment Patient Instructions Indication:Fever and chills Start:01-Oct-2014 Instruction Type:Provider Instructions for Treatment How to access health informa tion online Indication:Impaired fasting glucose Start:02-Sep-2014 Instruction Type:Patient Education How to access health informa tion online - Detail Indication:Impaired fasting glucose Start:02-Sep-2014 Instruction Type:Patient Education Patient Instructions Indication:Impaired fasting glucose Start:02-Sep-2014 Instruction Type:Provider Instructions for Treatment Patient Instructions Indication:Impaired fasting glucose Start:08-Oct-2013 Instruction Type:Provider Instructions for Treatment Patient Instructions Indication:Hypercholesteremia Start:01-Jan-2013 Instruction Type:Provider Instructions for Treatment Patient Instructions Indication:Gallstones Start:31-Oct-2012 Instruction Type:Provider Instructions for Treatment Patient Instructions Indication:Hematuria Start:20-Oct-2012 Instruction Type:Provider Instructions for Treatment [facility]; [facility] Work Phone: Instructions* Name Dates Details How to Access Health Informa tion Online using Patient Portal and [employer] Apps Indication:Smoker Start:29-Jan-2022 Instruction Type:Patient Education Patient Instructions Indication:Smoker Start:29-Jan-2022 Instruction Type:Provider Instructions for Treatment Patient Instructions Indication:Smoker Start:21-Oct-2021 Instruction Type:Provider Instructions for Treatment How to Access Health Informa tion Online using Patient Portal and [employer] Apps Indication:Smoker Start:21-Oct-2021 Instruction Type:Patient Education Patient Instructions Indication:Smoker Start:01-Jun-2021 Instruction Type:Provider Instructions for Treatment How to Access Health Informa tion Online using Patient Portal and [employer] Apps Indication:Smoker Start:01-Jun-2021 Instruction Type:Patient Education Patient Instructions Indication:BMI 23.0-23.9, adult Start:06-Apr-2021 Instruction Type:Provider Instructions for Treatment How to Access Health Informa tion Online using Patient Portal and [employer] Apps Indication:BMI 23.0-23.9, adult Start:06-Apr-2021 Instruction Type:Patient Education How to Access Health Informa tion Online using Patient Portal and [employer] Apps Indication:Smoker Start:19-Jan-2021 Instruction Type:Patient Education Patient Instructions Indication:Smoker Start:19-Jan-2021 Instruction Type:Provider Instructions for Treatment How to Access Health Informa tion Online using Patient Portal and [employer] Apps Indication:Smoker Start:01-Dec-2020 Instruction Type:Patient Education Patient Instructions Indication:Smoker Start:01-Dec-2020 Instruction Type:Provider Instructions for Treatment How to Access Health Informa tion Online using Patient Portal and [employer] Apps Indication:Smoker Start:01-Sep-2020 Instruction Type:Patient Education Patient Instructions Indication:Smoker Start:01-Sep-2020 Instruction Type:Provider Instructions for Treatment How to access health informa tion online Indication:Smoker Start:30-Apr-2020 Instruction Type:Patient Education How to access health informa tion online - Detail Indication:Need for prophylactic vaccination and inoculation against influenza (Renamed from Need for immunization against influenza) Start:30-Apr-2020 Instruction Type:Patient Education Patient Instructions Indication:Smoker Start:30-Apr-2020 Instruction Type:Provider Instructions for Treatment How to access health informa tion online Indication:BMI 24.0-24.9, adult Start:28-Jan-2020 Instruction Type:Patient Education How to access health informa tion online - Detail Indication:BMI 24.0-24.9, adult Start:28-Jan-2020 Instruction Type:Patient Education Patient Instructions Indication:BMI 24.0-24.9, adult Start:28-Jan-2020 Instruction Type:Provider Instructions for Treatment How to access health informa tion online Indication:BMI 23.0-23.9, adult Start:09-Jan-2020 Instruction Type:Patient Education How to access health informa tion online - Detail Indication:BMI 23.0-23.9, adult Start:09-Jan-2020 Instruction Type:Patient Education Patient Instructions Indication:BMI 23.0-23.9, adult Start:09-Jan-2020 Instruction Type:Provider Instructions for Treatment How to access health informa tion online Indication:Tobacco use Start:27-Dec-2019 Instruction Type:Patient Education How to access health informa tion online - Detail Indication:Tobacco use Start:27-Dec-2019 Instruction Type:Patient Education Patient Instructions Indication:Tobacco use Start:27-Dec-2019 Instruction Type:Provider Instructions for Treatment How to access health informa tion online Indication:BMI 23.0-23.9, adult Start:02-Aug-2019 Instruction Type:Patient Education How to access health informa tion online - Detail Indication:BMI 23.0-23.9, adult Start:02-Aug-2019 Instruction Type:Patient Education Patient Instructions Indication:BMI 23.0-23.9, adult Start:02-Aug-2019 Instruction Type:Provider Instructions for Treatment How to access health informa tion online Indication:Impaired fasting glucose Start:29-Mar-2019 Instruction Type:Patient Education How to access health informa tion online - Detail Indication:Impaired fasting glucose Start:29-Mar-2019 Instruction Type:Patient Education Patient Instructions Indication:Impaired fasting glucose Start:29-Mar-2019 Instruction Type:Provider Instructions for Treatment Patient Instructions Indication:Hypercholesteremia Start:02-Feb-2019 Instruction Type:Provider Instructions for Treatment How to access health informa tion online Indication:Smoker Start:02-Feb-2019 Instruction Type:Patient Education How to access health informa tion online - Detail Indication:Smoker Start:02-Feb-2019 Instruction Type:Patient Education How to access health informa tion online Indication:Tobacco use Start:14-Dec-2018 Instruction Type:Patient Education How to access health informa tion online - Detail Indication:Tobacco use Start:14-Dec-2018 Instruction Type:Patient Education Patient Instructions Indication:Tobacco use Start:14-Dec-2018 Instruction Type:Provider Instructions for Treatment How to access health informa tion online Indication:Smoker Start:30-Nov-2018 Instruction Type:Patient Education How to access health informa tion online - Detail Indication:Smoker Start:30-Nov-2018 Instruction Type:Patient Education Patient Instructions Indication:Smoker Start:30-Nov-2018 Instruction Type:Provider Instructions for Treatment How to access health informa tion online Indication:Nonsmoker Start:26-Oct-2018 Instruction Type:Patient Education How to access health informa tion online - Detail Indication:Nonsmoker Start:26-Oct-2018 Instruction Type:Patient Education Patient Instructions Indication:Nonsmoker Start:26-Oct-2018 Instruction Type:Provider Instructions for Treatment How to access health informa tion online Indication:Nonsmoker Start:14-Nov-2017 Instruction Type:Patient Education How to access health informa tion online - Detail Indication:Nonsmoker Start:14-Nov-2017 Instruction Type:Patient Education Patient Instructions Indication:Back pain, acute Start:14-Nov-2017 Instruction Type:Provider Instructions for Treatment How to access health informa tion online Indication:Impaired fasting glucose Start:05-Oct-2017 Instruction Type:Patient Education How to access health informa tion online - Detail Indication:Impaired fasting glucose Start:05-Oct-2017 Instruction Type:Patient Education Patient Instructions Indication:Impaired fasting glucose Start:05-Oct-2017 Instruction Type:Provider Instructions for Treatment How to access health informa tion online Indication:Impaired fasting glucose Start:24-Nov-2016 Instruction Type:Patient Education How to access health informa tion online - Detail Indication:Impaired fasting glucose Start:24-Nov-2016 Instruction Type:Patient Education Patient Instructions Indication:Impaired fasting glucose Start:24-Nov-2016 Instruction Type:Provider Instructions for Treatment How to access health informa tion online Indication:Impaired fasting glucose Start:21-Jul-2016 Instruction Type:Patient Education How to access health informa tion online - Detail Indication:Impaired fasting glucose Start:21-Jul-2016 Instruction Type:Patient Education Patient Instructions Indication:Impaired fasting glucose Start:21-Jul-2016 Instruction Type:Provider Instructions for Treatment Patient Instructions Indication:Torticollis Start:19-Mar-2016 Instruction Type:Provider Instructions for Treatment How to access health informa tion online Indication:Hypercholesteremia Start:19-Mar-2016 Instruction Type:Patient Education How to access health informa tion online - Detail Indication:Hypercholesteremia Start:19-Mar-2016 Instruction Type:Patient Education Patient Instructions Indication:Hypercholesteremia Start:19-Mar-2016 Instruction Type:Provider Instructions for Treatment How to access health informa tion online Indication:Hypercholesteremia Start:25-Aug-2015 Instruction Type:Patient Education How to access health informa tion online - Detail Indication:Hypercholesteremia Start:25-Aug-2015 Instruction Type:Patient Education Patient Instructions Indication:Hypercholesteremia Start:25-Aug-2015 Instruction Type:Provider Instructions for Treatment Patient Instructions Indication:Fever and chills Start:01-Oct-2014 Instruction Type:Provider Instructions for Treatment How to access health informa tion online Indication:Impaired fasting glucose Start:02-Sep-2014 Instruction Type:Patient Education How to access health informa tion online - Detail Indication:Impaired fasting glucose Start:02-Sep-2014 Instruction Type:Patient Education Patient Instructions Indication:Impaired fasting glucose Start:02-Sep-2014 Instruction Type:Provider Instructions for Treatment Patient Instructions Indication:Impaired fasting glucose Start:08-Oct-2013 Instruction Type:Provider Instructions for Treatment Patient Instructions Indication:Hypercholesteremia Start:01-Jan-2013 Instruction Type:Provider Instructions for Treatment Patient Instructions Indication:Gallstones Start:31-Oct-2012 Instruction Type:Provider Instructions for Treatment Patient Instructions Indication:Hematuria Start:20-Oct-2012 Instruction Type:Provider Instructions for Treatment [facility]; [facility] Work Phone: Instructions* Name Dates Details How to Access Health Informa tion Online using Patient Portal and [employer] Apps Indication:Smoker Start:29-Jan-2022 Instruction Type:Patient Education Patient Instructions Indication:Smoker Start:29-Jan-2022 Instruction Type:Provider Instructions for Treatment Patient Instructions Indication:Smoker Start:21-Oct-2021 Instruction Type:Provider Instructions for Treatment How to Access Health Informa tion Online using Patient Portal and [employer] Apps Indication:Smoker Start:21-Oct-2021 Instruction Type:Patient Education Patient Instructions Indication:Smoker Start:01-Jun-2021 Instruction Type:Provider Instructions for Treatment How to Access Health Informa tion Online using Patient Portal and [employer] Apps Indication:Smoker Start:01-Jun-2021 Instruction Type:Patient Education Patient Instructions Indication:BMI 23.0-23.9, adult Start:06-Apr-2021 Instruction Type:Provider Instructions for Treatment How to Access Health Informa tion Online using Patient Portal and [employer] Apps Indication:BMI 23.0-23.9, adult Start:06-Apr-2021 Instruction Type:Patient Education How to Access Health Informa tion Online using Patient Portal and [employer] Apps Indication:Smoker Start:19-Jan-2021 Instruction Type:Patient Education Patient Instructions Indication:Smoker Start:19-Jan-2021 Instruction Type:Provider Instructions for Treatment How to Access Health Informa tion Online using Patient Portal and [employer] Apps Indication:Smoker Start:01-Dec-2020 Instruction Type:Patient Education Patient Instructions Indication:Smoker Start:01-Dec-2020 Instruction Type:Provider Instructions for Treatment How to Access Health Informa tion Online using Patient Portal and [employer] Apps Indication:Smoker Start:01-Sep-2020 Instruction Type:Patient Education Patient Instructions Indication:Smoker Start:01-Sep-2020 Instruction Type:Provider Instructions for Treatment How to access health informa tion online Indication:Smoker Start:30-Apr-2020 Instruction Type:Patient Education How to access health informa tion online - Detail Indication:Need for prophylactic vaccination and inoculation against influenza (Renamed from Need for immunization against influenza) Start:30-Apr-2020 Instruction Type:Patient Education Patient Instructions Indication:Smoker Start:30-Apr-2020 Instruction Type:Provider Instructions for Treatment How to access health informa tion online Indication:BMI 24.0-24.9, adult Start:28-Jan-2020 Instruction Type:Patient Education How to access health informa tion online - Detail Indication:BMI 24.0-24.9, adult Start:28-Jan-2020 Instruction Type:Patient Education Patient Instructions Indication:BMI 24.0-24.9, adult Start:28-Jan-2020 Instruction Type:Provider Instructions for Treatment How to access health informa tion online Indication:BMI 23.0-23.9, adult Start:09-Jan-2020 Instruction Type:Patient Education How to access health informa tion online - Detail Indication:BMI 23.0-23.9, adult Start:09-Jan-2020 Instruction Type:Patient Education Patient Instructions Indication:BMI 23.0-23.9, adult Start:09-Jan-2020 Instruction Type:Provider Instructions for Treatment How to access health informa tion online Indication:Tobacco use Start:27-Dec-2019 Instruction Type:Patient Education How to access health informa tion online - Detail Indication:Tobacco use Start:27-Dec-2019 Instruction Type:Patient Education Patient Instructions Indication:Tobacco use Start:27-Dec-2019 Instruction Type:Provider Instructions for Treatment How to access health informa tion online Indication:BMI 23.0-23.9, adult Start:02-Aug-2019 Instruction Type:Patient Education How to access health informa tion online - Detail Indication:BMI 23.0-23.9, adult Start:02-Aug-2019 Instruction Type:Patient Education Patient Instructions Indication:BMI 23.0-23.9, adult Start:02-Aug-2019 Instruction Type:Provider Instructions for Treatment How to access health informa tion online Indication:Impaired fasting glucose Start:29-Mar-2019 Instruction Type:Patient Education How to access health informa tion online - Detail Indication:Impaired fasting glucose Start:29-Mar-2019 Instruction Type:Patient Education Patient Instructions Indication:Impaired fasting glucose Start:29-Mar-2019 Instruction Type:Provider Instructions for Treatment Patient Instructions Indication:Hypercholesteremia Start:02-Feb-2019 Instruction Type:Provider Instructions for Treatment How to access health informa tion online Indication:Smoker Start:02-Feb-2019 Instruction Type:Patient Education How to access health informa tion online - Detail Indication:Smoker Start:02-Feb-2019 Instruction Type:Patient Education How to access health informa tion online Indication:Tobacco use Start:14-Dec-2018 Instruction Type:Patient Education How to access health informa tion online - Detail Indication:Tobacco use Start:14-Dec-2018 Instruction Type:Patient Education Patient Instructions Indication:Tobacco use Start:14-Dec-2018 Instruction Type:Provider Instructions for Treatment How to access health informa tion online Indication:Smoker Start:30-Nov-2018 Instruction Type:Patient Education How to access health informa tion online - Detail Indication:Smoker Start:30-Nov-2018 Instruction Type:Patient Education Patient Instructions Indication:Smoker Start:30-Nov-2018 Instruction Type:Provider Instructions for Treatment How to access health informa tion online Indication:Nonsmoker Start:26-Oct-2018 Instruction Type:Patient Education How to access health informa tion online - Detail Indication:Nonsmoker Start:26-Oct-2018 Instruction Type:Patient Education Patient Instructions Indication:Nonsmoker Start:26-Oct-2018 Instruction Type:Provider Instructions for Treatment How to access health informa tion online Indication:Nonsmoker Start:14-Nov-2017 Instruction Type:Patient Education How to access health informa tion online - Detail Indication:Nonsmoker Start:14-Nov-2017 Instruction Type:Patient Education Patient Instructions Indication:Back pain, acute Start:14-Nov-2017 Instruction Type:Provider Instructions for Treatment How to access health informa tion online Indication:Impaired fasting glucose Start:05-Oct-2017 Instruction Type:Patient Education How to access health informa tion online - Detail Indication:Impaired fasting glucose Start:05-Oct-2017 Instruction Type:Patient Education Patient Instructions Indication:Impaired fasting glucose Start:05-Oct-2017 Instruction Type:Provider Instructions for Treatment How to access health informa tion online Indication:Impaired fasting glucose Start:24-Nov-2016 Instruction Type:Patient Education How to access health informa tion online - Detail Indication:Impaired fasting glucose Start:24-Nov-2016 Instruction Type:Patient Education Patient Instructions Indication:Impaired fasting glucose Start:24-Nov-2016 Instruction Type:Provider Instructions for Treatment How to access health informa tion online Indication:Impaired fasting glucose Start:21-Jul-2016 Instruction Type:Patient Education How to access health informa tion online - Detail Indication:Impaired fasting glucose Start:21-Jul-2016 Instruction Type:Patient Education Patient Instructions Indication:Impaired fasting glucose Start:21-Jul-2016 Instruction Type:Provider Instructions for Treatment Patient Instructions Indication:Torticollis Start:19-Mar-2016 Instruction Type:Provider Instructions for Treatment How to access health informa tion online Indication:Hypercholesteremia Start:19-Mar-2016 Instruction Type:Patient Education How to access health informa tion online - Detail Indication:Hypercholesteremia Start:19-Mar-2016 Instruction Type:Patient Education Patient Instructions Indication:Hypercholesteremia Start:19-Mar-2016 Instruction Type:Provider Instructions for Treatment How to access health informa tion online Indication:Hypercholesteremia Start:25-Aug-2015 Instruction Type:Patient Education How to access health informa tion online - Detail Indication:Hypercholesteremia Start:25-Aug-2015 Instruction Type:Patient Education Patient Instructions Indication:Hypercholesteremia Start:25-Aug-2015 Instruction Type:Provider Instructions for Treatment Patient Instructions Indication:Fever and chills Start:01-Oct-2014 Instruction Type:Provider Instructions for Treatment How to access health informa tion online Indication:Impaired fasting glucose Start:02-Sep-2014 Instruction Type:Patient Education How to access health informa tion online - Detail Indication:Impaired fasting glucose Start:02-Sep-2014 Instruction Type:Patient Education Patient Instructions Indication:Impaired fasting glucose Start:02-Sep-2014 Instruction Type:Provider Instructions for Treatment Patient Instructions Indication:Impaired fasting glucose Start:08-Oct-2013 Instruction Type:Provider Instructions for Treatment Patient Instructions Indication:Hypercholesteremia Start:01-Jan-2013 Instruction Type:Provider Instructions for Treatment Patient Instructions Indication:Gallstones Start:31-Oct-2012 Instruction Type:Provider Instructions for Treatment Patient Instructions Indication:Hematuria Start:20-Oct-2012 Instruction Type:Provider Instructions for Treatment [facility]; [facility] Work Phone: Instructions* Name Dates Details How to Access Health Informa tion Online using Patient Portal and [employer] Apps Indication:Smoker Start:29-Jan-2022 Instruction Type:Patient Education Patient Instructions Indication:Smoker Start:29-Jan-2022 Instruction Type:Provider Instructions for Treatment Patient Instructions Indication:Smoker Start:21-Oct-2021 Instruction Type:Provider Instructions for Treatment How to Access Health Informa tion Online using Patient Portal and [employer] Apps Indication:Smoker Start:21-Oct-2021 Instruction Type:Patient Education Patient Instructions Indication:Smoker Start:01-Jun-2021 Instruction Type:Provider Instructions for Treatment How to Access Health Informa tion Online using Patient Portal and [employer] Apps Indication:Smoker Start:01-Jun-2021 Instruction Type:Patient Education Patient Instructions Indication:BMI 23.0-23.9, adult Start:06-Apr-2021 Instruction Type:Provider Instructions for Treatment How to Access Health Informa tion Online using Patient Portal and [employer] Apps Indication:BMI 23.0-23.9, adult Start:06-Apr-2021 Instruction Type:Patient Education How to Access Health Informa tion Online using Patient Portal and [employer] Apps Indication:Smoker Start:19-Jan-2021 Instruction Type:Patient Education Patient Instructions Indication:Smoker Start:19-Jan-2021 Instruction Type:Provider Instructions for Treatment How to Access Health Informa tion Online using Patient Portal and [employer] Apps Indication:Smoker Start:01-Dec-2020 Instruction Type:Patient Education Patient Instructions Indication:Smoker Start:01-Dec-2020 Instruction Type:Provider Instructions for Treatment How to Access Health Informa tion Online using Patient Portal and [employer] Apps Indication:Smoker Start:01-Sep-2020 Instruction Type:Patient Education Patient Instructions Indication:Smoker Start:01-Sep-2020 Instruction Type:Provider Instructions for Treatment How to access health informa tion online Indication:Smoker Start:30-Apr-2020 Instruction Type:Patient Education How to access health informa tion online - Detail Indication:Need for prophylactic vaccination and inoculation against influenza (Renamed from Need for immunization against influenza) Start:30-Apr-2020 Instruction Type:Patient Education Patient Instructions Indication:Smoker Start:30-Apr-2020 Instruction Type:Provider Instructions for Treatment How to access health informa tion online Indication:BMI 24.0-24.9, adult Start:28-Jan-2020 Instruction Type:Patient Education How to access health informa tion online - Detail Indication:BMI 24.0-24.9, adult Start:28-Jan-2020 Instruction Type:Patient Education Patient Instructions Indication:BMI 24.0-24.9, adult Start:28-Jan-2020 Instruction Type:Provider Instructions for Treatment How to access health informa tion online Indication:BMI 23.0-23.9, adult Start:09-Jan-2020 Instruction Type:Patient Education How to access health informa tion online - Detail Indication:BMI 23.0-23.9, adult Start:09-Jan-2020 Instruction Type:Patient Education Patient Instructions Indication:BMI 23.0-23.9, adult Start:09-Jan-2020 Instruction Type:Provider Instructions for Treatment How to access health informa tion online Indication:Tobacco use Start:27-Dec-2019 Instruction Type:Patient Education How to access health informa tion online - Detail Indication:Tobacco use Start:27-Dec-2019 Instruction Type:Patient Education Patient Instructions Indication:Tobacco use Start:27-Dec-2019 Instruction Type:Provider Instructions for Treatment How to access health informa tion online Indication:BMI 23.0-23.9, adult Start:02-Aug-2019 Instruction Type:Patient Education How to access health informa tion online - Detail Indication:BMI 23.0-23.9, adult Start:02-Aug-2019 Instruction Type:Patient Education Patient Instructions Indication:BMI 23.0-23.9, adult Start:02-Aug-2019 Instruction Type:Provider Instructions for Treatment How to access health informa tion online Indication:Impaired fasting glucose Start:29-Mar-2019 Instruction Type:Patient Education How to access health informa tion online - Detail Indication:Impaired fasting glucose Start:29-Mar-2019 Instruction Type:Patient Education Patient Instructions Indication:Impaired fasting glucose Start:29-Mar-2019 Instruction Type:Provider Instructions for Treatment Patient Instructions Indication:Hypercholesteremia Start:02-Feb-2019 Instruction Type:Provider Instructions for Treatment How to access health informa tion online Indication:Smoker Start:02-Feb-2019 Instruction Type:Patient Education How to access health informa tion online - Detail Indication:Smoker Start:02-Feb-2019 Instruction Type:Patient Education How to access health informa tion online Indication:Tobacco use Start:14-Dec-2018 Instruction Type:Patient Education How to access health informa tion online - Detail Indication:Tobacco use Start:14-Dec-2018 Instruction Type:Patient Education Patient Instructions Indication:Tobacco use Start:14-Dec-2018 Instruction Type:Provider Instructions for Treatment How to access health informa tion online Indication:Smoker Start:30-Nov-2018 Instruction Type:Patient Education How to access health informa tion online - Detail Indication:Smoker Start:30-Nov-2018 Instruction Type:Patient Education Patient Instructions Indication:Smoker Start:30-Nov-2018 Instruction Type:Provider Instructions for Treatment How to access health informa tion online Indication:Nonsmoker Start:26-Oct-2018 Instruction Type:Patient Education How to access health informa tion online - Detail Indication:Nonsmoker Start:26-Oct-2018 Instruction Type:Patient Education Patient Instructions Indication:Nonsmoker Start:26-Oct-2018 Instruction Type:Provider Instructions for Treatment How to access health informa tion online Indication:Nonsmoker Start:14-Nov-2017 Instruction Type:Patient Education How to access health informa tion online - Detail Indication:Nonsmoker Start:14-Nov-2017 Instruction Type:Patient Education Patient Instructions Indication:Back pain, acute Start:14-Nov-2017 Instruction Type:Provider Instructions for Treatment How to access health informa tion online Indication:Impaired fasting glucose Start:05-Oct-2017 Instruction Type:Patient Education How to access health informa tion online - Detail Indication:Impaired fasting glucose Start:05-Oct-2017 Instruction Type:Patient Education Patient Instructions Indication:Impaired fasting glucose Start:05-Oct-2017 Instruction Type:Provider Instructions for Treatment How to access health informa tion online Indication:Impaired fasting glucose Start:24-Nov-2016 Instruction Type:Patient Education How to access health informa tion online - Detail Indication:Impaired fasting glucose Start:24-Nov-2016 Instruction Type:Patient Education Patient Instructions Indication:Impaired fasting glucose Start:24-Nov-2016 Instruction Type:Provider Instructions for Treatment How to access health informa tion online Indication:Impaired fasting glucose Start:21-Jul-2016 Instruction Type:Patient Education How to access health informa tion online - Detail Indication:Impaired fasting glucose Start:21-Jul-2016 Instruction Type:Patient Education Patient Instructions Indication:Impaired fasting glucose Start:21-Jul-2016 Instruction Type:Provider Instructions for Treatment Patient Instructions Indication:Torticollis Start:19-Mar-2016 Instruction Type:Provider Instructions for Treatment How to access health informa tion online Indication:Hypercholesteremia Start:19-Mar-2016 Instruction Type:Patient Education How to access health informa tion online - Detail Indication:Hypercholesteremia Start:19-Mar-2016 Instruction Type:Patient Education Patient Instructions Indication:Hypercholesteremia Start:19-Mar-2016 Instruction Type:Provider Instructions for Treatment How to access health informa tion online Indication:Hypercholesteremia Start:25-Aug-2015 Instruction Type:Patient Education How to access health informa tion online - Detail Indication:Hypercholesteremia Start:25-Aug-2015 Instruction Type:Patient Education Patient Instructions Indication:Hypercholesteremia Start:25-Aug-2015 Instruction Type:Provider Instructions for Treatment Patient Instructions Indication:Fever and chills Start:01-Oct-2014 Instruction Type:Provider Instructions for Treatment How to access health informa tion online Indication:Impaired fasting glucose Start:02-Sep-2014 Instruction Type:Patient Education How to access health informa tion online - Detail Indication:Impaired fasting glucose Start:02-Sep-2014 Instruction Type:Patient Education Patient Instructions Indication:Impaired fasting glucose Start:02-Sep-2014 Instruction Type:Provider Instructions for Treatment Patient Instructions Indication:Impaired fasting glucose Start:08-Oct-2013 Instruction Type:Provider Instructions for Treatment Patient Instructions Indication:Hypercholesteremia Start:01-Jan-2013 Instruction Type:Provider Instructions for Treatment Patient Instructions Indication:Gallstones Start:31-Oct-2012 Instruction Type:Provider Instructions for Treatment Patient Instructions Indication:Hematuria Start:20-Oct-2012 Instruction Type:Provider Instructions for Treatment [facility]; [facility] Work Phone: Instructions* Name Dates Details How to Access [employer] using Patient Portal and [employer] Apps Indication:Smoker Start:29-Jan-2022 Instruction Type:Patient Education Patient Instructions Indication:Smoker Start:29-Jan-2022 Instruction Type:Provider Instructions for Treatment Patient Instructions Indication:Smoker Start:21-Oct-2021 Instruction Type:Provider Instructions for Treatment How to Access Health Informa tion Online using Patient Portal and [employer] Apps Indication:Smoker Start:21-Oct-2021 Instruction Type:Patient Education Patient Instructions Indication:Smoker Start:01-Jun-2021 Instruction Type:Provider Instructions for Treatment How to Access Health Informa tion Online using Patient Portal and [employer] Apps Indication:Smoker Start:01-Jun-2021 Instruction Type:Patient Education Patient Instructions Indication:BMI 23.0-23.9, adult Start:06-Apr-2021 Instruction Type:Provider Instructions for Treatment How to Access Health Informa tion Online using Patient Portal and [employer] Indication:BMI 23.0-23.9, adult Start:06-Apr-2021 Instruction Type:Patient Education How to Access Health Informa tion Online using Patient Portal and [employer] Apps Indication:Smoker Start:19-Jan-2021 Instruction Type:Patient Education Patient Instructions Indication:Smoker Start:19-Jan-2021 Instruction Type:Provider Instructions for Treatment How to Access Health Informa tion Online using Patient Portal and [employer] Apps Indication:Smoker Start:01-Dec-2020 Instruction Type:Patient Education Patient Instructions Indication:Smoker Start:01-Dec-2020 Instruction Type:Provider Instructions for Treatment How to Access Health Informa tion Online using Patient Portal and [employer] Apps Indication:Smoker Start:01-Sep-2020 Instruction Type:Patient Education Patient Instructions Indication:Smoker Start:01-Sep-2020 Instruction Type:Provider Instructions for Treatment How to access health informa tion online Indication:Smoker Start:30-Apr-2020 Instruction Type:Patient Education How to access health informa tion online - Detail Indication:Need for prophylactic vaccination and inoculation against influenza (Renamed from Need for immunization against influenza) Start:30-Apr-2020 Instruction Type:Patient Education Patient Instructions Indication:Smoker Start:30-Apr-2020 Instruction Type:Provider Instructions for Treatment How to access health informa tion online Indication:BMI 24.0-24.9, adult Start:28-Jan-2020 Instruction Type:Patient Education How to access health informa tion online - Detail Indication:BMI 24.0-24.9, adult Start:28-Jan-2020 Instruction Type:Patient Education Patient Instructions Indication:BMI 24.0-24.9, adult Start:28-Jan-2020 Instruction Type:Provider Instructions for Treatment How to access health informa tion online Indication:BMI 23.0-23.9, adult Start:09-Jan-2020 Instruction Type:Patient Education How to access health informa tion online - Detail Indication:BMI 23.0-23.9, adult Start:09-Jan-2020 Instruction Type:Patient Education Patient Instructions Indication:BMI 23.0-23.9, adult Start:09-Jan-2020 Instruction Type:Provider Instructions for Treatment How to access health informa tion online Indication:Tobacco use Start:27-Dec-2019 Instruction Type:Patient Education How to access health informa tion online - Detail Indication:Tobacco use Start:27-Dec-2019 Instruction Type:Patient Education Patient Instructions Indication:Tobacco use Start:27-Dec-2019 Instruction Type:Provider Instructions for Treatment How to access health informa tion online Indication:BMI 23.0-23.9, adult Start:02-Aug-2019 Instruction Type:Patient Education How to access health informa tion online - Detail Indication:BMI 23.0-23.9, adult Start:02-Aug-2019 Instruction Type:Patient Education Patient Instructions Indication:BMI 23.0-23.9, adult Start:02-Aug-2019 Instruction Type:Provider Instructions for Treatment How to access health informa tion online Indication:Impaired fasting glucose Start:29-Mar-2019 Instruction Type:Patient Education How to access health informa tion online - Detail Indication:Impaired fasting glucose Start:29-Mar-2019 Instruction Type:Patient Education Patient Instructions Indication:Impaired fasting glucose Start:29-Mar-2019 Instruction Type:Provider Instructions for Treatment Patient Instructions Indication:Hypercholesteremia Start:02-Feb-2019 Instruction Type:Provider Instructions for Treatment How to access health informa tion online Indication:Smoker Start:02-Feb-2019 Instruction Type:Patient Education How to access health informa tion online - Detail Indication:Smoker Start:02-Feb-2019 Instruction Type:Patient Education How to access health informa tion online Indication:Tobacco use Start:14-Dec-2018 Instruction Type:Patient Education How to access health informa tion online - Detail Indication:Tobacco use Start:14-Dec-2018 Instruction Type:Patient Education Patient Instructions Indication:Tobacco use Start:14-Dec-2018 Instruction Type:Provider Instructions for Treatment How to access health informa tion online Indication:Smoker Start:30-Nov-2018 Instruction Type:Patient Education How to access health informa tion online - Detail Indication:Smoker Start:30-Nov-2018 Instruction Type:Patient Education Patient Instructions Indication:Smoker Start:30-Nov-2018 Instruction Type:Provider Instructions for Treatment How to access health informa tion online Indication:Nonsmoker Start:26-Oct-2018 Instruction Type:Patient Education How to access health informa tion online - Detail Indication:Nonsmoker Start:26-Oct-2018 Instruction Type:Patient Education Patient Instructions Indication:Nonsmoker Start:26-Oct-2018 Instruction Type:Provider Instructions for Treatment How to access health informa tion online Indication:Nonsmoker Start:14-Nov-2017 Instruction Type:Patient Education How to access health informa tion online - Detail Indication:Nonsmoker Start:14-Nov-2017 Instruction Type:Patient Education Patient Instructions Indication:Back pain, acute Start:14-Nov-2017 Instruction Type:Provider Instructions for Treatment How to access health informa tion online Indication:Impaired fasting glucose Start:05-Oct-2017 Instruction Type:Patient Education How to access health informa tion online - Detail Indication:Impaired fasting glucose Start:05-Oct-2017 Instruction Type:Patient Education Patient Instructions Indication:Impaired fasting glucose Start:05-Oct-2017 Instruction Type:Provider Instructions for Treatment How to access health informa tion online Indication:Impaired fasting glucose Start:24-Nov-2016 Instruction Type:Patient Education How to access health informa tion online - Detail Indication:Impaired fasting glucose Start:24-Nov-2016 Instruction Type:Patient Education Patient Instructions Indication:Impaired fasting glucose Start:24-Nov-2016 Instruction Type:Provider Instructions for Treatment How to access health informa tion online Indication:Impaired fasting glucose Start:21-Jul-2016 Instruction Type:Patient Education How to access health informa tion online - Detail Indication:Impaired fasting glucose Start:21-Jul-2016 Instruction Type:Patient Education Patient Instructions Indication:Impaired fasting glucose Start:21-Jul-2016 Instruction Type:Provider Instructions for Treatment Patient Instructions Indication:Torticollis Start:19-Mar-2016 Instruction Type:Provider Instructions for Treatment How to access health informa tion online Indication:Hypercholesteremia Start:19-Mar-2016 Instruction Type:Patient Education How to access health informa tion online - Detail Indication:Hypercholesteremia Start:19-Mar-2016 Instruction Type:Patient Education Patient Instructions Indication:Hypercholesteremia Start:19-Mar-2016 Instruction Type:Provider Instructions for Treatment How to access health informa tion online Indication:Hypercholesteremia Start:25-Aug-2015 Instruction Type:Patient Education How to access health informa tion online - Detail Indication:Hypercholesteremia Start:25-Aug-2015 Instruction Type:Patient Education Patient Instructions Indication:Hypercholesteremia Start:25-Aug-2015 Instruction Type:Provider Instructions for Treatment Patient Instructions Indication:Fever and chills Start:01-Oct-2014 Instruction Type:Provider Instructions for Treatment How to access health informa tion online Indication:Impaired fasting glucose Start:02-Sep-2014 Instruction Type:Patient Education How to access health informa tion online - Detail Indication:Impaired fasting glucose Start:02-Sep-2014 Instruction Type:Patient Education Patient Instructions Indication:Impaired fasting glucose Start:02-Sep-2014 Instruction Type:Provider Instructions for Treatment Patient Instructions Indication:Impaired fasting glucose Start:08-Oct-2013 Instruction Type:Provider Instructions for Treatment Patient Instructions Indication:Hypercholesteremia Start:01-Jan-2013 Instruction Type:Provider Instructions for Treatment Patient Instructions Indication:Gallstones Start:31-Oct-2012 Instruction Type:Provider Instructions for Treatment Patient Instructions Indication:Hematuria Start:20-Oct-2012 Instruction Type:Provider Instructions for Treatment [facility]; [facility] Work Phone: Instructions* Name Dates Details How to Access Health Informa tion Online using Patient Portal and [employer] Apps Indication:Smoker Start:29-Jan-2022 Instruction Type:Patient Education Patient Instructions Indication:Smoker Start:29-Jan-2022 Instruction Type:Provider Instructions for Treatment Patient Instructions Indication:Smoker Start:21-Oct-2021 Instruction Type:Provider Instructions for Treatment How to Access Health Informa tion Online using Patient Portal and [employer] Apps Indication:Smoker Start:21-Oct-2021 Instruction Type:Patient Education Patient Instructions Indication:Smoker Start:01-Jun-2021 Instruction Type:Provider Instructions for Treatment How to Access Health Informa tion Online using Patient Portal and [employer] Indication:Smoker Start:01-Jun-2021 Instruction Type:Patient Education Patient Instructions Indication:BMI 23.0-23.9, adult Start:06-Apr-2021 Instruction Type:Provider Instructions for Treatment How to Access Health Informa tion Online using Patient Portal and [employer] Indication:BMI 23.0-23.9, adult Start:06-Apr-2021 Instruction Type:Patient Education How to Access Health Informa tion Online using Patient Portal and [employer] Apps Indication:Smoker Start:19-Jan-2021 Instruction Type:Patient Education Patient Instructions Indication:Smoker Start:19-Jan-2021 Instruction Type:Provider Instructions for Treatment How to Access Health Informa tion Online using Patient Portal and [employer] Apps Indication:Smoker Start:01-Dec-2020 Instruction Type:Patient Education Patient Instructions Indication:Smoker Start:01-Dec-2020 Instruction Type:Provider Instructions for Treatment How to Access Health Informa tion Online using Patient Portal and [employer] Indication:Smoker Start:01-Sep-2020 Instruction Type:Patient Education Patient Instructions Indication:Smoker Start:01-Sep-2020 Instruction Type:Provider Instructions for Treatment How to access health informa tion online Indication:Smoker Start:30-Apr-2020 Instruction Type:Patient Education How to access health informa tion online - Detail Indication:Need for prophylactic vaccination and inoculation against influenza (Renamed from Need for immunization against influenza) Start:30-Apr-2020 Instruction Type:Patient Education Patient Instructions Indication:Smoker Start:30-Apr-2020 Instruction Type:Provider Instructions for Treatment How to access health informa tion online Indication:BMI 24.0-24.9, adult Start:28-Jan-2020 Instruction Type:Patient Education How to access health informa tion online - Detail Indication:BMI 24.0-24.9, adult Start:28-Jan-2020 Instruction Type:Patient Education Patient Instructions Indication:BMI 24.0-24.9, adult Start:28-Jan-2020 Instruction Type:Provider Instructions for Treatment How to access health informa tion online Indication:BMI 23.0-23.9, adult Start:09-Jan-2020 Instruction Type:Patient Education How to access health informa tion online - Detail Indication:BMI 23.0-23.9, adult Start:09-Jan-2020 Instruction Type:Patient Education Patient Instructions Indication:BMI 23.0-23.9, adult Start:09-Jan-2020 Instruction Type:Provider Instructions for Treatment How to access health informa tion online Indication:Tobacco use Start:27-Dec-2019 Instruction Type:Patient Education How to access health informa tion online - Detail Indication:Tobacco use Start:27-Dec-2019 Instruction Type:Patient Education Patient Instructions Indication:Tobacco use Start:27-Dec-2019 Instruction Type:Provider Instructions for Treatment How to access health informa tion online Indication:BMI 23.0-23.9, adult Start:02-Aug-2019 Instruction Type:Patient Education How to access health informa tion online - Detail Indication:BMI 23.0-23.9, adult Start:02-Aug-2019 Instruction Type:Patient Education Patient Instructions Indication:BMI 23.0-23.9, adult Start:02-Aug-2019 Instruction Type:Provider Instructions for Treatment How to access health informa tion online Indication:Impaired fasting glucose Start:29-Mar-2019 Instruction Type:Patient Education How to access health informa tion online - Detail Indication:Impaired fasting glucose Start:29-Mar-2019 Instruction Type:Patient Education Patient Instructions Indication:Impaired fasting glucose Start:29-Mar-2019 Instruction Type:Provider Instructions for Treatment Patient Instructions Indication:Hypercholesteremia Start:02-Feb-2019 Instruction Type:Provider Instructions for Treatment How to access health informa tion online Indication:Smoker Start:02-Feb-2019 Instruction Type:Patient Education How to access health informa tion online - Detail Indication:Smoker Start:02-Feb-2019 Instruction Type:Patient Education How to access health informa tion online Indication:Tobacco use Start:14-Dec-2018 Instruction Type:Patient Education How to access health informa tion online - Detail Indication:Tobacco use Start:14-Dec-2018 Instruction Type:Patient Education Patient Instructions Indication:Tobacco use Start:14-Dec-2018 Instruction Type:Provider Instructions for Treatment How to access health informa tion online Indication:Smoker Start:30-Nov-2018 Instruction Type:Patient Education How to access health informa tion online - Detail Indication:Smoker Start:30-Nov-2018 Instruction Type:Patient Education Patient Instructions Indication:Smoker Start:30-Nov-2018 Instruction Type:Provider Instructions for Treatment How to access health informa tion online Indication:Nonsmoker Start:26-Oct-2018 Instruction Type:Patient Education How to access health informa tion online - Detail Indication:Nonsmoker Start:26-Oct-2018 Instruction Type:Patient Education Patient Instructions Indication:Nonsmoker Start:26-Oct-2018 Instruction Type:Provider Instructions for Treatment How to access health informa tion online Indication:Nonsmoker Start:14-Nov-2017 Instruction Type:Patient Education How to access health informa tion online - Detail Indication:Nonsmoker Start:14-Nov-2017 Instruction Type:Patient Education Patient Instructions Indication:Back pain, acute Start:14-Nov-2017 Instruction Type:Provider Instructions for Treatment How to access health informa tion online Indication:Impaired fasting glucose Start:05-Oct-2017 Instruction Type:Patient Education How to access health informa tion online - Detail Indication:Impaired fasting glucose Start:05-Oct-2017 Instruction Type:Patient Education Patient Instructions Indication:Impaired fasting glucose Start:05-Oct-2017 Instruction Type:Provider Instructions for Treatment How to access health informa tion online Indication:Impaired fasting glucose Start:24-Nov-2016 Instruction Type:Patient Education How to access health informa tion online - Detail Indication:Impaired fasting glucose Start:24-Nov-2016 Instruction Type:Patient Education Patient Instructions Indication:Impaired fasting glucose Start:24-Nov-2016 Instruction Type:Provider Instructions for Treatment How to access health informa tion online Indication:Impaired fasting glucose Start:21-Jul-2016 Instruction Type:Patient Education How to access health informa tion online - Detail Indication:Impaired fasting glucose Start:21-Jul-2016 Instruction Type:Patient Education Patient Instructions Indication:Impaired fasting glucose Start:21-Jul-2016 Instruction Type:Provider Instructions for Treatment Patient Instructions Indication:Torticollis Start:19-Mar-2016 Instruction Type:Provider Instructions for Treatment How to access health informa tion online Indication:Hypercholesteremia Start:19-Mar-2016 Instruction Type:Patient Education How to access health informa tion online - Detail Indication:Hypercholesteremia Start:19-Mar-2016 Instruction Type:Patient Education Patient Instructions Indication:Hypercholesteremia Start:19-Mar-2016 Instruction Type:Provider Instructions for Treatment How to access health informa tion online Indication:Hypercholesteremia Start:25-Aug-2015 Instruction Type:Patient Education How to access health informa tion online - Detail Indication:Hypercholesteremia Start:25-Aug-2015 Instruction Type:Patient Education Patient Instructions Indication:Hypercholesteremia Start:25-Aug-2015 Instruction Type:Provider Instructions for Treatment Patient Instructions Indication:Fever and chills Start:01-Oct-2014 Instruction Type:Provider Instructions for Treatment How to access health informa tion online Indication:Impaired fasting glucose Start:02-Sep-2014 Instruction Type:Patient Education How to access health informa tion online - Detail Indication:Impaired fasting glucose Start:02-Sep-2014 Instruction Type:Patient Education Patient Instructions Indication:Impaired fasting glucose Start:02-Sep-2014 Instruction Type:Provider Instructions for Treatment Patient Instructions Indication:Impaired fasting glucose Start:08-Oct-2013 Instruction Type:Provider Instructions for Treatment Patient Instructions Indication:Hypercholesteremia Start:01-Jan-2013 Instruction Type:Provider Instructions for Treatment Patient Instructions Indication:Gallstones Start:31-Oct-2012 Instruction Type:Provider Instructions for Treatment Patient Instructions Indication:Hematuria Start:20-Oct-2012 Instruction Type:Provider Instructions for Treatment [facility] Work Phone: Instructions* Name Dates Details How to Access Health Informa tion Online using Patient Portal and [employer] Indication:Smoker Start:29-Jan-2022 Instruction Type:Patient Education Patient Instructions Indication:Smoker Start:29-Jan-2022 Instruction Type:Provider Instructions for Treatment Patient Instructions Indication:Smoker Start:21-Oct-2021 Instruction Type:Provider Instructions for Treatment How to Access Health Informa tion Online using Patient Portal and [employer] Apps Indication:Smoker Start:21-Oct-2021 Instruction Type:Patient Education Patient Instructions Indication:Smoker Start:01-Jun-2021 Instruction Type:Provider Instructions for Treatment How to Access Health Informa tion Online using Patient Portal and [employer] Apps Indication:Smoker Start:01-Jun-2021 Instruction Type:Patient Education Patient Instructions Indication:BMI 23.0-23.9, adult Start:06-Apr-2021 Instruction Type:Provider Instructions for Treatment How to Access Health Informa tion Online using Patient Portal and [employer] Apps Indication:BMI 23.0-23.9, adult Start:06-Apr-2021 Instruction Type:Patient Education How to Access Health Informa tion Online using Patient Portal and [employer] Apps Indication:Smoker Start:19-Jan-2021 Instruction Type:Patient Education Patient Instructions Indication:Smoker Start:19-Jan-2021 Instruction Type:Provider Instructions for Treatment How to Access Health Informa tion Online using Patient Portal and [employer] Apps Indication:Smoker Start:01-Dec-2020 Instruction Type:Patient Education Patient Instructions Indication:Smoker Start:01-Dec-2020 Instruction Type:Provider Instructions for Treatment How to Access Health Informa tion Online using Patient Portal and [employer] Apps Indication:Smoker Start:01-Sep-2020 Instruction Type:Patient Education Patient Instructions Indication:Smoker Start:01-Sep-2020 Instruction Type:Provider Instructions for Treatment How to access health informa tion online Indication:Smoker Start:30-Apr-2020 Instruction Type:Patient Education How to access health informa tion online - Detail Indication:Need for prophylactic vaccination and inoculation against influenza (Renamed from Need for immunization against influenza) Start:30-Apr-2020 Instruction Type:Patient Education Patient Instructions Indication:Smoker Start:30-Apr-2020 Instruction Type:Provider Instructions for Treatment How to access health informa tion online Indication:BMI 24.0-24.9, adult Start:28-Jan-2020 Instruction Type:Patient Education How to access health informa tion online - Detail Indication:BMI 24.0-24.9, adult Start:28-Jan-2020 Instruction Type:Patient Education Patient Instructions Indication:BMI 24.0-24.9, adult Start:28-Jan-2020 Instruction Type:Provider Instructions for Treatment How to access health informa tion online Indication:BMI 23.0-23.9, adult Start:09-Jan-2020 Instruction Type:Patient Education How to access health informa tion online - Detail Indication:BMI 23.0-23.9, adult Start:09-Jan-2020 Instruction Type:Patient Education Patient Instructions Indication:BMI 23.0-23.9, adult Start:09-Jan-2020 Instruction Type:Provider Instructions for Treatment How to access health informa tion online Indication:Tobacco use Start:27-Dec-2019 Instruction Type:Patient Education How to access health informa tion online - Detail Indication:Tobacco use Start:27-Dec-2019 Instruction Type:Patient Education Patient Instructions Indication:Tobacco use Start:27-Dec-2019 Instruction Type:Provider Instructions for Treatment How to access health informa tion online Indication:BMI 23.0-23.9, adult Start:02-Aug-2019 Instruction Type:Patient Education How to access health informa tion online - Detail Indication:BMI 23.0-23.9, adult Start:02-Aug-2019 Instruction Type:Patient Education Patient Instructions Indication:BMI 23.0-23.9, adult Start:02-Aug-2019 Instruction Type:Provider Instructions for Treatment How to access health informa tion online Indication:Impaired fasting glucose Start:29-Mar-2019 Instruction Type:Patient Education How to access health informa tion online - Detail Indication:Impaired fasting glucose Start:29-Mar-2019 Instruction Type:Patient Education Patient Instructions Indication:Impaired fasting glucose Start:29-Mar-2019 Instruction Type:Provider Instructions for Treatment Patient Instructions Indication:Hypercholesteremia Start:02-Feb-2019 Instruction Type:Provider Instructions for Treatment How to access health informa tion online Indication:Smoker Start:02-Feb-2019 Instruction Type:Patient Education How to access health informa tion online - Detail Indication:Smoker Start:02-Feb-2019 Instruction Type:Patient Education How to access health informa tion online Indication:Tobacco use Start:14-Dec-2018 Instruction Type:Patient Education How to access health informa tion online - Detail Indication:Tobacco use Start:14-Dec-2018 Instruction Type:Patient Education Patient Instructions Indication:Tobacco use Start:14-Dec-2018 Instruction Type:Provider Instructions for Treatment How to access health informa tion online Indication:Smoker Start:30-Nov-2018 Instruction Type:Patient Education How to access health informa tion online - Detail Indication:Smoker Start:30-Nov-2018 Instruction Type:Patient Education Patient Instructions Indication:Smoker Start:30-Nov-2018 Instruction Type:Provider Instructions for Treatment How to access health informa tion online Indication:Nonsmoker Start:26-Oct-2018 Instruction Type:Patient Education How to access health informa tion online - Detail Indication:Nonsmoker Start:26-Oct-2018 Instruction Type:Patient Education Patient Instructions Indication:Nonsmoker Start:26-Oct-2018 Instruction Type:Provider Instructions for Treatment How to access health informa tion online Indication:Nonsmoker Start:14-Nov-2017 Instruction Type:Patient Education How to access health informa tion online - Detail Indication:Nonsmoker Start:14-Nov-2017 Instruction Type:Patient Education Patient Instructions Indication:Back pain, acute Start:14-Nov-2017 Instruction Type:Provider Instructions for Treatment How to access health informa tion online Indication:Impaired fasting glucose Start:05-Oct-2017 Instruction Type:Patient Education How to access health informa tion online - Detail Indication:Impaired fasting glucose Start:05-Oct-2017 Instruction Type:Patient Education Patient Instructions Indication:Impaired fasting glucose Start:05-Oct-2017 Instruction Type:Provider Instructions for Treatment How to access health informa tion online Indication:Impaired fasting glucose Start:24-Nov-2016 Instruction Type:Patient Education How to access health informa tion online - Detail Indication:Impaired fasting glucose Start:24-Nov-2016 Instruction Type:Patient Education Patient Instructions Indication:Impaired fasting glucose Start:24-Nov-2016 Instruction Type:Provider Instructions for Treatment How to access health informa tion online Indication:Impaired fasting glucose Start:21-Jul-2016 Instruction Type:Patient Education How to access health informa tion online - Detail Indication:Impaired fasting glucose Start:21-Jul-2016 Instruction Type:Patient Education Patient Instructions Indication:Impaired fasting glucose Start:21-Jul-2016 Instruction Type:Provider Instructions for Treatment Patient Instructions Indication:Torticollis Start:19-Mar-2016 Instruction Type:Provider Instructions for Treatment How to access health informa tion online Indication:Hypercholesteremia Start:19-Mar-2016 Instruction Type:Patient Education How to access health informa tion online - Detail Indication:Hypercholesteremia Start:19-Mar-2016 Instruction Type:Patient Education Patient Instructions Indication:Hypercholesteremia Start:19-Mar-2016 Instruction Type:Provider Instructions for Treatment How to access health informa tion online Indication:Hypercholesteremia Start:25-Aug-2015 Instruction Type:Patient Education How to access health informa tion online - Detail Indication:Hypercholesteremia Start:25-Aug-2015 Instruction Type:Patient Education Patient Instructions Indication:Hypercholesteremia Start:25-Aug-2015 Instruction Type:Provider Instructions for Treatment Patient Instructions Indication:Fever and chills Start:01-Oct-2014 Instruction Type:Provider Instructions for Treatment How to access health informa tion online Indication:Impaired fasting glucose Start:02-Sep-2014 Instruction Type:Patient Education How to access health informa tion online - Detail Indication:Impaired fasting glucose Start:02-Sep-2014 Instruction Type:Patient Education Patient Instructions Indication:Impaired fasting glucose Start:02-Sep-2014 Instruction Type:Provider Instructions for Treatment Patient Instructions Indication:Impaired fasting glucose Start:08-Oct-2013 Instruction Type:Provider Instructions for Treatment Patient Instructions Indication:Hypercholesteremia Start:01-Jan-2013 Instruction Type:Provider Instructions for Treatment Patient Instructions Indication:Gallstones Start:31-Oct-2012 Instruction Type:Provider Instructions for Treatment Patient Instructions Indication:Hematuria Start:20-Oct-2012 Instruction Type:Provider Instructions for Treatment [facility] Work Phone: Instructions* Name Dates Details How to Access Health Informa tion Online using Patient Portal and [employer] Apps Indication:Smoker Start:29-Jan-2022 Instruction Type:Patient Education Patient Instructions Indication:Smoker Start:29-Jan-2022 Instruction Type:Provider Instructions for Treatment Patient Instructions Indication:Smoker Start:21-Oct-2021 Instruction Type:Provider Instructions for Treatment How to Access Health Informa tion Online using Patient Portal and [employer] Indication:Smoker Start:21-Oct-2021 Instruction Type:Patient Education Patient Instructions Indication:Smoker Start:01-Jun-2021 Instruction Type:Provider Instructions for Treatment How to Access Health Informa tion Online using Patient Portal and [employer] Apps Indication:Smoker Start:01-Jun-2021 Instruction Type:Patient Education Patient Instructions Indication:BMI 23.0-23.9, adult Start:06-Apr-2021 Instruction Type:Provider Instructions for Treatment How to Access Health Informa tion Online using Patient Portal and [employer] Apps Indication:BMI 23.0-23.9, adult Start:06-Apr-2021 Instruction Type:Patient Education How to Access Health Informa tion Online using Patient Portal and [employer] Apps Indication:Smoker Start:19-Jan-2021 Instruction Type:Patient Education Patient Instructions Indication:Smoker Start:19-Jan-2021 Instruction Type:Provider Instructions for Treatment How to Access Health Informa tion Online using Patient Portal and [employer] Apps Indication:Smoker Start:01-Dec-2020 Instruction Type:Patient Education Patient Instructions Indication:Smoker Start:01-Dec-2020 Instruction Type:Provider Instructions for Treatment How to Access Health Informa tion Online using Patient Portal and [employer] Apps Indication:Smoker Start:01-Sep-2020 Instruction Type:Patient Education Patient Instructions Indication:Smoker Start:01-Sep-2020 Instruction Type:Provider Instructions for Treatment How to access health informa tion online Indication:Smoker Start:30-Apr-2020 Instruction Type:Patient Education How to access health informa tion online - Detail Indication:Need for prophylactic vaccination and inoculation against influenza (Renamed from Need for immunization against influenza) Start:30-Apr-2020 Instruction Type:Patient Education Patient Instructions Indication:Smoker Start:30-Apr-2020 Instruction Type:Provider Instructions for Treatment How to access health informa tion online Indication:BMI 24.0-24.9, adult Start:28-Jan-2020 Instruction Type:Patient Education How to access health informa tion online - Detail Indication:BMI 24.0-24.9, adult Start:28-Jan-2020 Instruction Type:Patient Education Patient Instructions Indication:BMI 24.0-24.9, adult Start:28-Jan-2020 Instruction Type:Provider Instructions for Treatment How to access health informa tion online Indication:BMI 23.0-23.9, adult Start:09-Jan-2020 Instruction Type:Patient Education How to access health informa tion online - Detail Indication:BMI 23.0-23.9, adult Start:09-Jan-2020 Instruction Type:Patient Education Patient Instructions Indication:BMI 23.0-23.9, adult Start:09-Jan-2020 Instruction Type:Provider Instructions for Treatment How to access health informa tion online Indication:Tobacco use Start:27-Dec-2019 Instruction Type:Patient Education How to access health informa tion online - Detail Indication:Tobacco use Start:27-Dec-2019 Instruction Type:Patient Education Patient Instructions Indication:Tobacco use Start:27-Dec-2019 Instruction Type:Provider Instructions for Treatment How to access health informa tion online Indication:BMI 23.0-23.9, adult Start:02-Aug-2019 Instruction Type:Patient Education How to access health informa tion online - Detail Indication:BMI 23.0-23.9, adult Start:02-Aug-2019 Instruction Type:Patient Education Patient Instructions Indication:BMI 23.0-23.9, adult Start:02-Aug-2019 Instruction Type:Provider Instructions for Treatment How to access health informa tion online Indication:Impaired fasting glucose Start:29-Mar-2019 Instruction Type:Patient Education How to access health informa tion online - Detail Indication:Impaired fasting glucose Start:29-Mar-2019 Instruction Type:Patient Education Patient Instructions Indication:Impaired fasting glucose Start:29-Mar-2019 Instruction Type:Provider Instructions for Treatment Patient Instructions Indication:Hypercholesteremia Start:02-Feb-2019 Instruction Type:Provider Instructions for Treatment How to access health informa tion online Indication:Smoker Start:02-Feb-2019 Instruction Type:Patient Education How to access health informa tion online - Detail Indication:Smoker Start:02-Feb-2019 Instruction Type:Patient Education How to access health informa tion online Indication:Tobacco use Start:14-Dec-2018 Instruction Type:Patient Education How to access health informa tion online - Detail Indication:Tobacco use Start:14-Dec-2018 Instruction Type:Patient Education Patient Instructions Indication:Tobacco use Start:14-Dec-2018 Instruction Type:Provider Instructions for Treatment How to access health informa tion online Indication:Smoker Start:30-Nov-2018 Instruction Type:Patient Education How to access health informa tion online - Detail Indication:Smoker Start:30-Nov-2018 Instruction Type:Patient Education Patient Instructions Indication:Smoker Start:30-Nov-2018 Instruction Type:Provider Instructions for Treatment How to access health informa tion online Indication:Nonsmoker Start:26-Oct-2018 Instruction Type:Patient Education How to access health informa tion online - Detail Indication:Nonsmoker Start:26-Oct-2018 Instruction Type:Patient Education Patient Instructions Indication:Nonsmoker Start:26-Oct-2018 Instruction Type:Provider Instructions for Treatment How to access health informa tion online Indication:Nonsmoker Start:14-Nov-2017 Instruction Type:Patient Education How to access health informa tion online - Detail Indication:Nonsmoker Start:14-Nov-2017 Instruction Type:Patient Education Patient Instructions Indication:Back pain, acute Start:14-Nov-2017 Instruction Type:Provider Instructions for Treatment How to access health informa tion online Indication:Impaired fasting glucose Start:05-Oct-2017 Instruction Type:Patient Education How to access health informa tion online - Detail Indication:Impaired fasting glucose Start:05-Oct-2017 Instruction Type:Patient Education Patient Instructions Indication:Impaired fasting glucose Start:05-Oct-2017 Instruction Type:Provider Instructions for Treatment How to access health informa tion online Indication:Impaired fasting glucose Start:24-Nov-2016 Instruction Type:Patient Education How to access health informa tion online - Detail Indication:Impaired fasting glucose Start:24-Nov-2016 Instruction Type:Patient Education Patient Instructions Indication:Impaired fasting glucose Start:24-Nov-2016 Instruction Type:Provider Instructions for Treatment How to access health informa tion online Indication:Impaired fasting glucose Start:21-Jul-2016 Instruction Type:Patient Education How to access health informa tion online - Detail Indication:Impaired fasting glucose Start:21-Jul-2016 Instruction Type:Patient Education Patient Instructions Indication:Impaired fasting glucose Start:21-Jul-2016 Instruction Type:Provider Instructions for Treatment Patient Instructions Indication:Torticollis Start:19-Mar-2016 Instruction Type:Provider Instructions for Treatment How to access health informa tion online Indication:Hypercholesteremia Start:19-Mar-2016 Instruction Type:Patient Education How to access health informa tion online - Detail Indication:Hypercholesteremia Start:19-Mar-2016 Instruction Type:Patient Education Patient Instructions Indication:Hypercholesteremia Start:19-Mar-2016 Instruction Type:Provider Instructions for Treatment How to access health informa tion online Indication:Hypercholesteremia Start:25-Aug-2015 Instruction Type:Patient Education How to access health informa tion online - Detail Indication:Hypercholesteremia Start:25-Aug-2015 Instruction Type:Patient Education Patient Instructions Indication:Hypercholesteremia Start:25-Aug-2015 Instruction Type:Provider Instructions for Treatment Patient Instructions Indication:Fever and chills Start:01-Oct-2014 Instruction Type:Provider Instructions for Treatment How to access health informa tion online Indication:Impaired fasting glucose Start:02-Sep-2014 Instruction Type:Patient Education How to access health informa tion online - Detail Indication:Impaired fasting glucose Start:02-Sep-2014 Instruction Type:Patient Education Patient Instructions Indication:Impaired fasting glucose Start:02-Sep-2014 Instruction Type:Provider Instructions for Treatment Patient Instructions Indication:Impaired fasting glucose Start:08-Oct-2013 Instruction Type:Provider Instructions for Treatment Patient Instructions Indication:Hypercholesteremia Start:01-Jan-2013 Instruction Type:Provider Instructions for Treatment Patient Instructions Indication:Gallstones Start:31-Oct-2012 Instruction Type:Provider Instructions for Treatment Patient Instructions Indication:Hematuria Start:20-Oct-2012 Instruction Type:Provider Instructions for Treatment [facility]; [facility] Work Phone: Instructions* Name Dates Details Patient Instructions Indication:BMI 23.0-23.9, adult Start:20-Aug-2022 Instruction Type:Provider Instructions for Treatment How to Access Health Informa tion Online using Patient Portal and [employer] Indication:BMI 23.0-23.9, adult Start:20-Aug-2022 Instruction Type:Patient Education How to Access Health Informa tion Online using Patient Portal and [employer] Apps Indication:Smoker Start:29-Jan-2022 Instruction Type:Patient Education Patient Instructions Indication:Smoker Start:29-Jan-2022 Instruction Type:Provider Instructions for Treatment Patient Instructions Indication:Smoker Start:21-Oct-2021 Instruction Type:Provider Instructions for Treatment How to Access Health Informa tion Online using Patient Portal and [employer] Indication:Smoker Start:21-Oct-2021 Instruction Type:Patient Education Patient Instructions Indication:Smoker Start:01-Jun-2021 Instruction Type:Provider Instructions for Treatment How to Access Health Informa tion Online using Patient Portal and [employer] Apps Indication:Smoker Start:01-Jun-2021 Instruction Type:Patient Education Patient Instructions Indication:BMI 23.0-23.9, adult Start:06-Apr-2021 Instruction Type:Provider Instructions for Treatment How to Access Health Informa tion Online using Patient Portal and [employer] Indication:BMI 23.0-23.9, adult Start:06-Apr-2021 Instruction Type:Patient Education How to Access Health Informa tion Online using Patient Portal and [employer] Apps Indication:Smoker Start:19-Jan-2021 Instruction Type:Patient Education Patient Instructions Indication:Smoker Start:19-Jan-2021 Instruction Type:Provider Instructions for Treatment How to Access Health Informa tion Online using Patient Portal and [employer] Apps Indication:Smoker Start:01-Dec-2020 Instruction Type:Patient Education Patient Instructions Indication:Smoker Start:01-Dec-2020 Instruction Type:Provider Instructions for Treatment How to Access Health Informa tion Online using Patient Portal and [employer] Apps Indication:Smoker Start:01-Sep-2020 Instruction Type:Patient Education Patient Instructions Indication:Smoker Start:01-Sep-2020 Instruction Type:Provider Instructions for Treatment How to access health informa tion online Indication:Smoker Start:30-Apr-2020 Instruction Type:Patient Education How to access health informa tion online - Detail Indication:Need for prophylactic vaccination and inoculation against influenza (Renamed from Need for immunization against influenza) Start:30-Apr-2020 Instruction Type:Patient Education Patient Instructions Indication:Smoker Start:30-Apr-2020 Instruction Type:Provider Instructions for Treatment How to access health informa tion online Indication:BMI 24.0-24.9, adult Start:28-Jan-2020 Instruction Type:Patient Education How to access health informa tion online - Detail Indication:BMI 24.0-24.9, adult Start:28-Jan-2020 Instruction Type:Patient Education Patient Instructions Indication:BMI 24.0-24.9, adult Start:28-Jan-2020 Instruction Type:Provider Instructions for Treatment How to access health informa tion online Indication:BMI 23.0-23.9, adult Start:09-Jan-2020 Instruction Type:Patient Education How to access health informa tion online - Detail Indication:BMI 23.0-23.9, adult Start:09-Jan-2020 Instruction Type:Patient Education Patient Instructions Indication:BMI 23.0-23.9, adult Start:09-Jan-2020 Instruction Type:Provider Instructions for Treatment How to access health informa tion online Indication:Tobacco use Start:27-Dec-2019 Instruction Type:Patient Education How to access health informa tion online - Detail Indication:Tobacco use Start:27-Dec-2019 Instruction Type:Patient Education Patient Instructions Indication:Tobacco use Start:27-Dec-2019 Instruction Type:Provider Instructions for Treatment How to access health informa tion online Indication:BMI 23.0-23.9, adult Start:02-Aug-2019 Instruction Type:Patient Education How to access health informa tion online - Detail Indication:BMI 23.0-23.9, adult Start:02-Aug-2019 Instruction Type:Patient Education Patient Instructions Indication:BMI 23.0-23.9, adult Start:02-Aug-2019 Instruction Type:Provider Instructions for Treatment How to access health informa tion online Indication:Impaired fasting glucose Start:29-Mar-2019 Instruction Type:Patient Education How to access health informa tion online - Detail Indication:Impaired fasting glucose Start:29-Mar-2019 Instruction Type:Patient Education Patient Instructions Indication:Impaired fasting glucose Start:29-Mar-2019 Instruction Type:Provider Instructions for Treatment Patient Instructions Indication:Hypercholesteremia Start:02-Feb-2019 Instruction Type:Provider Instructions for Treatment How to access health informa tion online Indication:Smoker Start:02-Feb-2019 Instruction Type:Patient Education How to access health informa tion online - Detail Indication:Smoker Start:02-Feb-2019 Instruction Type:Patient Education How to access health informa tion online Indication:Tobacco use Start:14-Dec-2018 Instruction Type:Patient Education How to access health informa tion online - Detail Indication:Tobacco use Start:14-Dec-2018 Instruction Type:Patient Education Patient Instructions Indication:Tobacco use Start:14-Dec-2018 Instruction Type:Provider Instructions for Treatment How to access health informa tion online Indication:Smoker Start:30-Nov-2018 Instruction Type:Patient Education How to access health informa tion online - Detail Indication:Smoker Start:30-Nov-2018 Instruction Type:Patient Education Patient Instructions Indication:Smoker Start:30-Nov-2018 Instruction Type:Provider Instructions for Treatment How to access health informa tion online Indication:Nonsmoker Start:26-Oct-2018 Instruction Type:Patient Education How to access health informa tion online - Detail Indication:Nonsmoker Start:26-Oct-2018 Instruction Type:Patient Education Patient Instructions Indication:Nonsmoker Start:26-Oct-2018 Instruction Type:Provider Instructions for Treatment How to access health informa tion online Indication:Nonsmoker Start:14-Nov-2017 Instruction Type:Patient Education How to access health informa tion online - Detail Indication:Nonsmoker Start:14-Nov-2017 Instruction Type:Patient Education Patient Instructions Indication:Back pain, acute Start:14-Nov-2017 Instruction Type:Provider Instructions for Treatment How to access health informa tion online Indication:Impaired fasting glucose Start:05-Oct-2017 Instruction Type:Patient Education How to access health informa tion online - Detail Indication:Impaired fasting glucose Start:05-Oct-2017 Instruction Type:Patient Education Patient Instructions Indication:Impaired fasting glucose Start:05-Oct-2017 Instruction Type:Provider Instructions for Treatment How to access health informa tion online Indication:Impaired fasting glucose Start:24-Nov-2016 Instruction Type:Patient Education How to access health informa tion online - Detail Indication:Impaired fasting glucose Start:24-Nov-2016 Instruction Type:Patient Education Patient Instructions Indication:Impaired fasting glucose Start:24-Nov-2016 Instruction Type:Provider Instructions for Treatment How to access health informa tion online Indication:Impaired fasting glucose Start:21-Jul-2016 Instruction Type:Patient Education How to access health informa tion online - Detail Indication:Impaired fasting glucose Start:21-Jul-2016 Instruction Type:Patient Education Patient Instructions Indication:Impaired fasting glucose Start:21-Jul-2016 Instruction Type:Provider Instructions for Treatment Patient Instructions Indication:Torticollis Start:19-Mar-2016 Instruction Type:Provider Instructions for Treatment How to access health informa tion online Indication:Hypercholesteremia Start:19-Mar-2016 Instruction Type:Patient Education How to access health informa tion online - Detail Indication:Hypercholesteremia Start:19-Mar-2016 Instruction Type:Patient Education Patient Instructions Indication:Hypercholesteremia Start:19-Mar-2016 Instruction Type:Provider Instructions for Treatment How to access health informa tion online Indication:Hypercholesteremia Start:25-Aug-2015 Instruction Type:Patient Education How to access health informa tion online - Detail Indication:Hypercholesteremia Start:25-Aug-2015 Instruction Type:Patient Education Patient Instructions Indication:Hypercholesteremia Start:25-Aug-2015 Instruction Type:Provider Instructions for Treatment Patient Instructions Indication:Fever and chills Start:01-Oct-2014 Instruction Type:Provider Instructions for Treatment How to access health informa tion online Indication:Impaired fasting glucose Start:02-Sep-2014 Instruction Type:Patient Education How to access health informa tion online - Detail Indication:Impaired fasting glucose Start:02-Sep-2014 Instruction Type:Patient Education Patient Instructions Indication:Impaired fasting glucose Start:02-Sep-2014 Instruction Type:Provider Instructions for Treatment Patient Instructions Indication:Impaired fasting glucose Start:08-Oct-2013 Instruction Type:Provider Instructions for Treatment Patient Instructions Indication:Hypercholesteremia Start:01-Jan-2013 Instruction Type:Provider Instructions for Treatment Patient Instructions Indication:Gallstones Start:31-Oct-2012 Instruction Type:Provider Instructions for Treatment Patient Instructions Indication:Hematuria Start:20-Oct-2012 Instruction Type:Provider Instructions for Treatment [facility]; [facility] Work Phone: Instructions* Name Dates Details Patient Instructions Indication:Smoker Start:23-Dec-2022 Instruction Type:Provider Instructions for Treatment How to Access Health Informa tion Online using Patient Portal and [employer] Indication:Smoker Start:23-Dec-2022 Instruction Type:Patient Education Patient Instructions Indication:BMI 23.0-23.9, adult Start:20-Aug-2022 Instruction Type:Provider Instructions for Treatment How to Access Health Informa tion Online using Patient Portal and [employer] Apps Indication:BMI 23.0-23.9, adult Start:20-Aug-2022 Instruction Type:Patient Education How to Access Health Informa tion Online using Patient Portal and [employer] Apps Indication:Smoker Start:29-Jan-2022 Instruction Type:Patient Education Patient Instructions Indication:Smoker Start:29-Jan-2022 Instruction Type:Provider Instructions for Treatment Patient Instructions Indication:Smoker Start:21-Oct-2021 Instruction Type:Provider Instructions for Treatment How to Access Health Informa tion Online using Patient Portal and [employer] Apps Indication:Smoker Start:21-Oct-2021 Instruction Type:Patient Education Patient Instructions Indication:Smoker Start:01-Jun-2021 Instruction Type:Provider Instructions for Treatment How to Access Health Informa tion Online using Patient Portal and [employer] Apps Indication:Smoker Start:01-Jun-2021 Instruction Type:Patient Education Patient Instructions Indication:BMI 23.0-23.9, adult Start:06-Apr-2021 Instruction Type:Provider Instructions for Treatment How to Access Health Informa tion Online using Patient Portal and [employer] Apps Indication:BMI 23.0-23.9, adult Start:06-Apr-2021 Instruction Type:Patient Education How to Access Health Informa tion Online using Patient Portal and [employer] Apps Indication:Smoker Start:19-Jan-2021 Instruction Type:Patient Education Patient Instructions Indication:Smoker Start:19-Jan-2021 Instruction Type:Provider Instructions for Treatment How to Access Health Informa tion Online using Patient Portal and [employer] Apps Indication:Smoker Start:01-Dec-2020 Instruction Type:Patient Education Patient Instructions Indication:Smoker Start:01-Dec-2020 Instruction Type:Provider Instructions for Treatment How to Access Health Informa tion Online using Patient Portal and [employer] Apps Indication:Smoker Start:01-Sep-2020 Instruction Type:Patient Education Patient Instructions Indication:Smoker Start:01-Sep-2020 Instruction Type:Provider Instructions for Treatment How to access health informa tion online Indication:Smoker Start:30-Apr-2020 Instruction Type:Patient Education How to access health informa tion online - Detail Indication:Need for prophylactic vaccination and inoculation against influenza (Renamed from Need for immunization against influenza) Start:30-Apr-2020 Instruction Type:Patient Education Patient Instructions Indication:Smoker Start:30-Apr-2020 Instruction Type:Provider Instructions for Treatment How to access health informa tion online Indication:BMI 24.0-24.9, adult Start:28-Jan-2020 Instruction Type:Patient Education How to access health informa tion online - Detail Indication:BMI 24.0-24.9, adult Start:28-Jan-2020 Instruction Type:Patient Education Patient Instructions Indication:BMI 24.0-24.9, adult Start:28-Jan-2020 Instruction Type:Provider Instructions for Treatment How to access health informa tion online Indication:BMI 23.0-23.9, adult Start:09-Jan-2020 Instruction Type:Patient Education How to access health informa tion online - Detail Indication:BMI 23.0-23.9, adult Start:09-Jan-2020 Instruction Type:Patient Education Patient Instructions Indication:BMI 23.0-23.9, adult Start:09-Jan-2020 Instruction Type:Provider Instructions for Treatment How to access health informa tion online Indication:Tobacco use Start:27-Dec-2019 Instruction Type:Patient Education How to access health informa tion online - Detail Indication:Tobacco use Start:27-Dec-2019 Instruction Type:Patient Education Patient Instructions Indication:Tobacco use Start:27-Dec-2019 Instruction Type:Provider Instructions for Treatment How to access health informa tion online Indication:BMI 23.0-23.9, adult Start:02-Aug-2019 Instruction Type:Patient Education How to access health informa tion online - Detail Indication:BMI 23.0-23.9, adult Start:02-Aug-2019 Instruction Type:Patient Education Patient Instructions Indication:BMI 23.0-23.9, adult Start:02-Aug-2019 Instruction Type:Provider Instructions for Treatment How to access health informa tion online Indication:Impaired fasting glucose Start:29-Mar-2019 Instruction Type:Patient Education How to access health informa tion online - Detail Indication:Impaired fasting glucose Start:29-Mar-2019 Instruction Type:Patient Education Patient Instructions Indication:Impaired fasting glucose Start:29-Mar-2019 Instruction Type:Provider Instructions for Treatment Patient Instructions Indication:Hypercholesteremia Start:02-Feb-2019 Instruction Type:Provider Instructions for Treatment How to access health informa tion online Indication:Smoker Start:02-Feb-2019 Instruction Type:Patient Education How to access health informa tion online - Detail Indication:Smoker Start:02-Feb-2019 Instruction Type:Patient Education How to access health informa tion online Indication:Tobacco use Start:14-Dec-2018 Instruction Type:Patient Education How to access health informa tion online - Detail Indication:Tobacco use Start:14-Dec-2018 Instruction Type:Patient Education Patient Instructions Indication:Tobacco use Start:14-Dec-2018 Instruction Type:Provider Instructions for Treatment How to access health informa tion online Indication:Smoker Start:30-Nov-2018 Instruction Type:Patient Education How to access health informa tion online - Detail Indication:Smoker Start:30-Nov-2018 Instruction Type:Patient Education Patient Instructions Indication:Smoker Start:30-Nov-2018 Instruction Type:Provider Instructions for Treatment How to access health informa tion online Indication:Nonsmoker Start:26-Oct-2018 Instruction Type:Patient Education How to access health informa tion online - Detail Indication:Nonsmoker Start:26-Oct-2018 Instruction Type:Patient Education Patient Instructions Indication:Nonsmoker Start:26-Oct-2018 Instruction Type:Provider Instructions for Treatment How to access health informa tion online Indication:Nonsmoker Start:14-Nov-2017 Instruction Type:Patient Education How to access health informa tion online - Detail Indication:Nonsmoker Start:14-Nov-2017 Instruction Type:Patient Education Patient Instructions Indication:Back pain, acute Start:14-Nov-2017 Instruction Type:Provider Instructions for Treatment How to access health informa tion online Indication:Impaired fasting glucose Start:05-Oct-2017 Instruction Type:Patient Education How to access health informa tion online - Detail Indication:Impaired fasting glucose Start:05-Oct-2017 Instruction Type:Patient Education Patient Instructions Indication:Impaired fasting glucose Start:05-Oct-2017 Instruction Type:Provider Instructions for Treatment How to access health informa tion online Indication:Impaired fasting glucose Start:24-Nov-2016 Instruction Type:Patient Education How to access health informa tion online - Detail Indication:Impaired fasting glucose Start:24-Nov-2016 Instruction Type:Patient Education Patient Instructions Indication:Impaired fasting glucose Start:24-Nov-2016 Instruction Type:Provider Instructions for Treatment How to access health informa tion online Indication:Impaired fasting glucose Start:21-Jul-2016 Instruction Type:Patient Education How to access health informa tion online - Detail Indication:Impaired fasting glucose Start:21-Jul-2016 Instruction Type:Patient Education Patient Instructions Indication:Impaired fasting glucose Start:21-Jul-2016 Instruction Type:Provider Instructions for Treatment Patient Instructions Indication:Torticollis Start:19-Mar-2016 Instruction Type:Provider Instructions for Treatment How to access health informa tion online Indication:Hypercholesteremia Start:19-Mar-2016 Instruction Type:Patient Education How to access health informa tion online - Detail Indication:Hypercholesteremia Start:19-Mar-2016 Instruction Type:Patient Education Patient Instructions Indication:Hypercholesteremia Start:19-Mar-2016 Instruction Type:Provider Instructions for Treatment How to access health informa tion online Indication:Hypercholesteremia Start:25-Aug-2015 Instruction Type:Patient Education How to access health informa tion online - Detail Indication:Hypercholesteremia Start:25-Aug-2015 Instruction Type:Patient Education Patient Instructions Indication:Hypercholesteremia Start:25-Aug-2015 Instruction Type:Provider Instructions for Treatment Patient Instructions Indication:Fever and chills Start:01-Oct-2014 Instruction Type:Provider Instructions for Treatment How to access health informa tion online Indication:Impaired fasting glucose Start:02-Sep-2014 Instruction Type:Patient Education How to access health informa tion online - Detail Indication:Impaired fasting glucose Start:02-Sep-2014 Instruction Type:Patient Education Patient Instructions Indication:Impaired fasting glucose Start:02-Sep-2014 Instruction Type:Provider Instructions for Treatment Patient Instructions Indication:Impaired fasting glucose Start:08-Oct-2013 Instruction Type:Provider Instructions for Treatment Patient Instructions Indication:Hypercholesteremia Start:01-Jan-2013 Instruction Type:Provider Instructions for Treatment Patient Instructions Indication:Gallstones Start:31-Oct-2012 Instruction Type:Provider Instructions for Treatment Patient Instructions Indication:Hematuria Start:20-Oct-2012 Instruction Type:Provider Instructions for Treatment [facility]; [facility] Work Phone: Instructions* Name Dates Details Patient Instructions Indication:Smoker Start:23-Dec-2022 Instruction Type:Provider Instructions for Treatment How to Access Health Informa tion Online using Patient Portal and [employer] Apps Indication:Smoker Start:23-Dec-2022 Instruction Type:Patient Education Patient Instructions Indication:BMI 23.0-23.9, adult Start:20-Aug-2022 Instruction Type:Provider Instructions for Treatment How to Access Health Informa tion Online using Patient Portal and [employer] Indication:BMI 23.0-23.9, adult Start:20-Aug-2022 Instruction Type:Patient Education How to Access Health Informa tion Online using Patient Portal and [employer] Apps Indication:Smoker Start:29-Jan-2022 Instruction Type:Patient Education Patient Instructions Indication:Smoker Start:29-Jan-2022 Instruction Type:Provider Instructions for Treatment Patient Instructions Indication:Smoker Start:21-Oct-2021 Instruction Type:Provider Instructions for Treatment How to Access Health Informa tion Online using Patient Portal and [employer] Apps Indication:Smoker Start:21-Oct-2021 Instruction Type:Patient Education Patient Instructions Indication:Smoker Start:01-Jun-2021 Instruction Type:Provider Instructions for Treatment How to Access Health Informa tion Online using Patient Portal and [employer] Apps Indication:Smoker Start:01-Jun-2021 Instruction Type:Patient Education Patient Instructions Indication:BMI 23.0-23.9, adult Start:06-Apr-2021 Instruction Type:Provider Instructions for Treatment How to Access Health Informa tion Online using Patient Portal and [employer] Indication:BMI 23.0-23.9, adult Start:06-Apr-2021 Instruction Type:Patient Education How to Access Health Informa tion Online using Patient Portal and [employer] Apps Indication:Smoker Start:19-Jan-2021 Instruction Type:Patient Education Patient Instructions Indication:Smoker Start:19-Jan-2021 Instruction Type:Provider Instructions for Treatment How to Access Health Informa tion Online using Patient Portal and [employer] Apps Indication:Smoker Start:01-Dec-2020 Instruction Type:Patient Education Patient Instructions Indication:Smoker Start:01-Dec-2020 Instruction Type:Provider Instructions for Treatment How to Access Health Informa tion Online using Patient Portal and [employer] Apps Indication:Smoker Start:01-Sep-2020 Instruction Type:Patient Education Patient Instructions Indication:Smoker Start:01-Sep-2020 Instruction Type:Provider Instructions for Treatment How to access health informa tion online Indication:Smoker Start:30-Apr-2020 Instruction Type:Patient Education How to access health informa tion online - Detail Indication:Need for prophylactic vaccination and inoculation against influenza (Renamed from Need for immunization against influenza) Start:30-Apr-2020 Instruction Type:Patient Education Patient Instructions Indication:Smoker Start:30-Apr-2020 Instruction Type:Provider Instructions for Treatment How to access health informa tion online Indication:BMI 24.0-24.9, adult Start:28-Jan-2020 Instruction Type:Patient Education How to access health informa tion online - Detail Indication:BMI 24.0-24.9, adult Start:28-Jan-2020 Instruction Type:Patient Education Patient Instructions Indication:BMI 24.0-24.9, adult Start:28-Jan-2020 Instruction Type:Provider Instructions for Treatment How to access health informa tion online Indication:BMI 23.0-23.9, adult Start:09-Jan-2020 Instruction Type:Patient Education How to access health informa tion online - Detail Indication:BMI 23.0-23.9, adult Start:09-Jan-2020 Instruction Type:Patient Education Patient Instructions Indication:BMI 23.0-23.9, adult Start:09-Jan-2020 Instruction Type:Provider Instructions for Treatment How to access health informa tion online Indication:Tobacco use Start:27-Dec-2019 Instruction Type:Patient Education How to access health informa tion online - Detail Indication:Tobacco use Start:27-Dec-2019 Instruction Type:Patient Education Patient Instructions Indication:Tobacco use Start:27-Dec-2019 Instruction Type:Provider Instructions for Treatment How to access health informa tion online Indication:BMI 23.0-23.9, adult Start:02-Aug-2019 Instruction Type:Patient Education How to access health informa tion online - Detail Indication:BMI 23.0-23.9, adult Start:02-Aug-2019 Instruction Type:Patient Education Patient Instructions Indication:BMI 23.0-23.9, adult Start:02-Aug-2019 Instruction Type:Provider Instructions for Treatment How to access health informa tion online Indication:Impaired fasting glucose Start:29-Mar-2019 Instruction Type:Patient Education How to access health informa tion online - Detail Indication:Impaired fasting glucose Start:29-Mar-2019 Instruction Type:Patient Education Patient Instructions Indication:Impaired fasting glucose Start:29-Mar-2019 Instruction Type:Provider Instructions for Treatment Patient Instructions Indication:Hypercholesteremia Start:02-Feb-2019 Instruction Type:Provider Instructions for Treatment How to access health informa tion online Indication:Smoker Start:02-Feb-2019 Instruction Type:Patient Education How to access health informa tion online - Detail Indication:Smoker Start:02-Feb-2019 Instruction Type:Patient Education How to access health informa tion online Indication:Tobacco use Start:14-Dec-2018 Instruction Type:Patient Education How to access health informa tion online - Detail Indication:Tobacco use Start:14-Dec-2018 Instruction Type:Patient Education Patient Instructions Indication:Tobacco use Start:14-Dec-2018 Instruction Type:Provider Instructions for Treatment How to access health informa tion online Indication:Smoker Start:30-Nov-2018 Instruction Type:Patient Education How to access health informa tion online - Detail Indication:Smoker Start:30-Nov-2018 Instruction Type:Patient Education Patient Instructions Indication:Smoker Start:30-Nov-2018 Instruction Type:Provider Instructions for Treatment How to access health informa tion online Indication:Nonsmoker Start:26-Oct-2018 Instruction Type:Patient Education How to access health informa tion online - Detail Indication:Nonsmoker Start:26-Oct-2018 Instruction Type:Patient Education Patient Instructions Indication:Nonsmoker Start:26-Oct-2018 Instruction Type:Provider Instructions for Treatment How to access health informa tion online Indication:Nonsmoker Start:14-Nov-2017 Instruction Type:Patient Education How to access health informa tion online - Detail Indication:Nonsmoker Start:14-Nov-2017 Instruction Type:Patient Education Patient Instructions Indication:Back pain, acute Start:14-Nov-2017 Instruction Type:Provider Instructions for Treatment How to access health informa tion online Indication:Impaired fasting glucose Start:05-Oct-2017 Instruction Type:Patient Education How to access health informa tion online - Detail Indication:Impaired fasting glucose Start:05-Oct-2017 Instruction Type:Patient Education Patient Instructions Indication:Impaired fasting glucose Start:05-Oct-2017 Instruction Type:Provider Instructions for Treatment How to access health informa tion online Indication:Impaired fasting glucose Start:24-Nov-2016 Instruction Type:Patient Education How to access health informa tion online - Detail Indication:Impaired fasting glucose Start:24-Nov-2016 Instruction Type:Patient Education Patient Instructions Indication:Impaired fasting glucose Start:24-Nov-2016 Instruction Type:Provider Instructions for Treatment How to access health informa tion online Indication:Impaired fasting glucose Start:21-Jul-2016 Instruction Type:Patient Education How to access health informa tion online - Detail Indication:Impaired fasting glucose Start:21-Jul-2016 Instruction Type:Patient Education Patient Instructions Indication:Impaired fasting glucose Start:21-Jul-2016 Instruction Type:Provider Instructions for Treatment Patient Instructions Indication:Torticollis Start:19-Mar-2016 Instruction Type:Provider Instructions for Treatment How to access health informa tion online Indication:Hypercholesteremia Start:19-Mar-2016 Instruction Type:Patient Education How to access health informa tion online - Detail Indication:Hypercholesteremia Start:19-Mar-2016 Instruction Type:Patient Education Patient Instructions Indication:Hypercholesteremia Start:19-Mar-2016 Instruction Type:Provider Instructions for Treatment How to access health informa tion online Indication:Hypercholesteremia Start:25-Aug-2015 Instruction Type:Patient Education How to access health informa tion online - Detail Indication:Hypercholesteremia Start:25-Aug-2015 Instruction Type:Patient Education Patient Instructions Indication:Hypercholesteremia Start:25-Aug-2015 Instruction Type:Provider Instructions for Treatment Patient Instructions Indication:Fever and chills Start:01-Oct-2014 Instruction Type:Provider Instructions for Treatment How to access health informa tion online Indication:Impaired fasting glucose Start:02-Sep-2014 Instruction Type:Patient Education How to access health informa tion online - Detail Indication:Impaired fasting glucose Start:02-Sep-2014 Instruction Type:Patient Education Patient Instructions Indication:Impaired fasting glucose Start:02-Sep-2014 Instruction Type:Provider Instructions for Treatment Patient Instructions Indication:Impaired fasting glucose Start:08-Oct-2013 Instruction Type:Provider Instructions for Treatment Patient Instructions Indication:Hypercholesteremia Start:01-Jan-2013 Instruction Type:Provider Instructions for Treatment Patient Instructions Indication:Gallstones Start:31-Oct-2012 Instruction Type:Provider Instructions for Treatment Patient Instructions Indication:Hematuria Start:20-Oct-2012 Instruction Type:Provider Instructions for Treatment [facility]; [facility] Work Phone: Instructions* Name Dates Details Patient Instructions Indication:Smoker Start:23-Dec-2022 Instruction Type:Provider Instructions for Treatment How to Access Health Informa tion Online using Patient Portal and [employer] Apps Indication:Smoker Start:23-Dec-2022 Instruction Type:Patient Education Patient Instructions Indication:BMI 23.0-23.9, adult Start:20-Aug-2022 Instruction Type:Provider Instructions for Treatment How to Access Health Informa tion Online using Patient Portal and [employer] Indication:BMI 23.0-23.9, adult Start:20-Aug-2022 Instruction Type:Patient Education How to Access Health Informa tion Online using Patient Portal and [employer] Apps Indication:Smoker Start:29-Jan-2022 Instruction Type:Patient Education Patient Instructions Indication:Smoker Start:29-Jan-2022 Instruction Type:Provider Instructions for Treatment Patient Instructions Indication:Smoker Start:21-Oct-2021 Instruction Type:Provider Instructions for Treatment How to Access Health Informa tion Online using Patient Portal and [employer] Indication:Smoker Start:21-Oct-2021 Instruction Type:Patient Education Patient Instructions Indication:Smoker Start:01-Jun-2021 Instruction Type:Provider Instructions for Treatment How to Access Health Informa tion Online using Patient Portal and [employer] Apps Indication:Smoker Start:01-Jun-2021 Instruction Type:Patient Education Patient Instructions Indication:BMI 23.0-23.9, adult Start:06-Apr-2021 Instruction Type:Provider Instructions for Treatment How to Access Health Informa tion Online using Patient Portal and [employer] Indication:BMI 23.0-23.9, adult Start:06-Apr-2021 Instruction Type:Patient Education How to Access Health Informa tion Online using Patient Portal and [employer] Apps Indication:Smoker Start:19-Jan-2021 Instruction Type:Patient Education Patient Instructions Indication:Smoker Start:19-Jan-2021 Instruction Type:Provider Instructions for Treatment How to Access Health Informa tion Online using Patient Portal and [employer] Indication:Smoker Start:01-Dec-2020 Instruction Type:Patient Education Patient Instructions Indication:Smoker Start:01-Dec-2020 Instruction Type:Provider Instructions for Treatment How to Access Health Informa tion Online using Patient Portal and [employer] Apps Indication:Smoker Start:01-Sep-2020 Instruction Type:Patient Education Patient Instructions Indication:Smoker Start:01-Sep-2020 Instruction Type:Provider Instructions for Treatment How to access health informa tion online Indication:Smoker Start:30-Apr-2020 Instruction Type:Patient Education How to access health informa tion online - Detail Indication:Need for prophylactic vaccination and inoculation against influenza (Renamed from Need for immunization against influenza) Start:30-Apr-2020 Instruction Type:Patient Education Patient Instructions Indication:Smoker Start:30-Apr-2020 Instruction Type:Provider Instructions for Treatment How to access health informa tion online Indication:BMI 24.0-24.9, adult Start:28-Jan-2020 Instruction Type:Patient Education How to access health informa tion online - Detail Indication:BMI 24.0-24.9, adult Start:28-Jan-2020 Instruction Type:Patient Education Patient Instructions Indication:BMI 24.0-24.9, adult Start:28-Jan-2020 Instruction Type:Provider Instructions for Treatment How to access health informa tion online Indication:BMI 23.0-23.9, adult Start:09-Jan-2020 Instruction Type:Patient Education How to access health informa tion online - Detail Indication:BMI 23.0-23.9, adult Start:09-Jan-2020 Instruction Type:Patient Education Patient Instructions Indication:BMI 23.0-23.9, adult Start:09-Jan-2020 Instruction Type:Provider Instructions for Treatment How to access health informa tion online Indication:Tobacco use Start:27-Dec-2019 Instruction Type:Patient Education How to access health informa tion online - Detail Indication:Tobacco use Start:27-Dec-2019 Instruction Type:Patient Education Patient Instructions Indication:Tobacco use Start:27-Dec-2019 Instruction Type:Provider Instructions for Treatment How to access health informa tion online Indication:BMI 23.0-23.9, adult Start:02-Aug-2019 Instruction Type:Patient Education How to access health informa tion online - Detail Indication:BMI 23.0-23.9, adult Start:02-Aug-2019 Instruction Type:Patient Education Patient Instructions Indication:BMI 23.0-23.9, adult Start:02-Aug-2019 Instruction Type:Provider Instructions for Treatment How to access health informa tion online Indication:Impaired fasting glucose Start:29-Mar-2019 Instruction Type:Patient Education How to access health informa tion online - Detail Indication:Impaired fasting glucose Start:29-Mar-2019 Instruction Type:Patient Education Patient Instructions Indication:Impaired fasting glucose Start:29-Mar-2019 Instruction Type:Provider Instructions for Treatment Patient Instructions Indication:Hypercholesteremia Start:02-Feb-2019 Instruction Type:Provider Instructions for Treatment How to access health informa tion online Indication:Smoker Start:02-Feb-2019 Instruction Type:Patient Education How to access health informa tion online - Detail Indication:Smoker Start:02-Feb-2019 Instruction Type:Patient Education How to access health informa tion online Indication:Tobacco use Start:14-Dec-2018 Instruction Type:Patient Education How to access health informa tion online - Detail Indication:Tobacco use Start:14-Dec-2018 Instruction Type:Patient Education Patient Instructions Indication:Tobacco use Start:14-Dec-2018 Instruction Type:Provider Instructions for Treatment How to access health informa tion online Indication:Smoker Start:30-Nov-2018 Instruction Type:Patient Education How to access health informa tion online - Detail Indication:Smoker Start:30-Nov-2018 Instruction Type:Patient Education Patient Instructions Indication:Smoker Start:30-Nov-2018 Instruction Type:Provider Instructions for Treatment How to access health informa tion online Indication:Nonsmoker Start:26-Oct-2018 Instruction Type:Patient Education How to access health informa tion online - Detail Indication:Nonsmoker Start:26-Oct-2018 Instruction Type:Patient Education Patient Instructions Indication:Nonsmoker Start:26-Oct-2018 Instruction Type:Provider Instructions for Treatment How to access health informa tion online Indication:Nonsmoker Start:14-Nov-2017 Instruction Type:Patient Education How to access health informa tion online - Detail Indication:Nonsmoker Start:14-Nov-2017 Instruction Type:Patient Education Patient Instructions Indication:Back pain, acute Start:14-Nov-2017 Instruction Type:Provider Instructions for Treatment How to access health informa tion online Indication:Impaired fasting glucose Start:05-Oct-2017 Instruction Type:Patient Education How to access health informa tion online - Detail Indication:Impaired fasting glucose Start:05-Oct-2017 Instruction Type:Patient Education Patient Instructions Indication:Impaired fasting glucose Start:05-Oct-2017 Instruction Type:Provider Instructions for Treatment How to access health informa tion online Indication:Impaired fasting glucose Start:24-Nov-2016 Instruction Type:Patient Education How to access health informa tion online - Detail Indication:Impaired fasting glucose Start:24-Nov-2016 Instruction Type:Patient Education Patient Instructions Indication:Impaired fasting glucose Start:24-Nov-2016 Instruction Type:Provider Instructions for Treatment How to access health informa tion online Indication:Impaired fasting glucose Start:21-Jul-2016 Instruction Type:Patient Education How to access health informa tion online - Detail Indication:Impaired fasting glucose Start:21-Jul-2016 Instruction Type:Patient Education Patient Instructions Indication:Impaired fasting glucose Start:21-Jul-2016 Instruction Type:Provider Instructions for Treatment Patient Instructions Indication:Torticollis Start:19-Mar-2016 Instruction Type:Provider Instructions for Treatment How to access health informa tion online Indication:Hypercholesteremia Start:19-Mar-2016 Instruction Type:Patient Education How to access health informa tion online - Detail Indication:Hypercholesteremia Start:19-Mar-2016 Instruction Type:Patient Education Patient Instructions Indication:Hypercholesteremia Start:19-Mar-2016 Instruction Type:Provider Instructions for Treatment How to access health informa tion online Indication:Hypercholesteremia Start:25-Aug-2015 Instruction Type:Patient Education How to access health informa tion online - Detail Indication:Hypercholesteremia Start:25-Aug-2015 Instruction Type:Patient Education Patient Instructions Indication:Hypercholesteremia Start:25-Aug-2015 Instruction Type:Provider Instructions for Treatment Patient Instructions Indication:Fever and chills Start:01-Oct-2014 Instruction Type:Provider Instructions for Treatment How to access health informa tion online Indication:Impaired fasting glucose Start:02-Sep-2014 Instruction Type:Patient Education How to access health informa tion online - Detail Indication:Impaired fasting glucose Start:02-Sep-2014 Instruction Type:Patient Education Patient Instructions Indication:Impaired fasting glucose Start:02-Sep-2014 Instruction Type:Provider Instructions for Treatment Patient Instructions Indication:Impaired fasting glucose Start:08-Oct-2013 Instruction Type:Provider Instructions for Treatment Patient Instructions Indication:Hypercholesteremia Start:01-Jan-2013 Instruction Type:Provider Instructions for Treatment Patient Instructions Indication:Gallstones Start:31-Oct-2012 Instruction Type:Provider Instructions for Treatment Patient Instructions Indication:Hematuria Start:20-Oct-2012 Instruction Type:Provider Instructions for Treatment [facility]; [facility] Work Phone: Instructions* Name Dates Details Patient Instructions Indication:Smoker Start:06-Jan-2023 Instruction Type:Provider Instructions for Treatment How to Access Health Informa tion Online using Patient Portal and [employer] Apps Indication:Smoker Start:06-Jan-2023 Instruction Type:Patient Education Patient Instructions Indication:Smoker Start:23-Dec-2022 Instruction Type:Provider Instructions for Treatment How to Access Health Informa tion Online using Patient Portal and [employer] Indication:Smoker Start:23-Dec-2022 Instruction Type:Patient Education Patient Instructions Indication:BMI 23.0-23.9, adult Start:20-Aug-2022 Instruction Type:Provider Instructions for Treatment How to Access Health Informa tion Online using Patient Portal and [employer] Indication:BMI 23.0-23.9, adult Start:20-Aug-2022 Instruction Type:Patient Education How to Access Health Informa tion Online using Patient Portal and [employer] Apps Indication:Smoker Start:29-Jan-2022 Instruction Type:Patient Education Patient Instructions Indication:Smoker Start:29-Jan-2022 Instruction Type:Provider Instructions for Treatment Patient Instructions Indication:Smoker Start:21-Oct-2021 Instruction Type:Provider Instructions for Treatment How to Access Health Informa tion Online using Patient Portal and [employer] Indication:Smoker Start:21-Oct-2021 Instruction Type:Patient Education Patient Instructions Indication:Smoker Start:01-Jun-2021 Instruction Type:Provider Instructions for Treatment How to Access Health Informa tion Online using Patient Portal and [employer] Indication:Smoker Start:01-Jun-2021 Instruction Type:Patient Education Patient Instructions Indication:BMI 23.0-23.9, adult Start:06-Apr-2021 Instruction Type:Provider Instructions for Treatment How to Access Health Informa tion Online using Patient Portal and [employer] Indication:BMI 23.0-23.9, adult Start:06-Apr-2021 Instruction Type:Patient Education How to Access Health Informa tion Online using Patient Portal and [employer] Indication:Smoker Start:19-Jan-2021 Instruction Type:Patient Education Patient Instructions Indication:Smoker Start:19-Jan-2021 Instruction Type:Provider Instructions for Treatment How to Access Health Informa tion Online using Patient Portal and [employer] Apps Indication:Smoker Start:01-Dec-2020 Instruction Type:Patient Education Patient Instructions Indication:Smoker Start:01-Dec-2020 Instruction Type:Provider Instructions for Treatment How to Access Health Informa tion Online using Patient Portal and [employer] Indication:Smoker Start:01-Sep-2020 Instruction Type:Patient Education Patient Instructions Indication:Smoker Start:01-Sep-2020 Instruction Type:Provider Instructions for Treatment How to access health informa tion online Indication:Smoker Start:30-Apr-2020 Instruction Type:Patient Education How to access health informa tion online - Detail Indication:Need for prophylactic vaccination and inoculation against influenza (Renamed from Need for immunization against influenza) Start:30-Apr-2020 Instruction Type:Patient Education Patient Instructions Indication:Smoker Start:30-Apr-2020 Instruction Type:Provider Instructions for Treatment How to access health informa tion online Indication:BMI 24.0-24.9, adult Start:28-Jan-2020 Instruction Type:Patient Education How to access health informa tion online - Detail Indication:BMI 24.0-24.9, adult Start:28-Jan-2020 Instruction Type:Patient Education Patient Instructions Indication:BMI 24.0-24.9, adult Start:28-Jan-2020 Instruction Type:Provider Instructions for Treatment How to access health informa tion online Indication:BMI 23.0-23.9, adult Start:09-Jan-2020 Instruction Type:Patient Education How to access health informa tion online - Detail Indication:BMI 23.0-23.9, adult Start:09-Jan-2020 Instruction Type:Patient Education Patient Instructions Indication:BMI 23.0-23.9, adult Start:09-Jan-2020 Instruction Type:Provider Instructions for Treatment How to access health informa tion online Indication:Tobacco use Start:27-Dec-2019 Instruction Type:Patient Education How to access health informa tion online - Detail Indication:Tobacco use Start:27-Dec-2019 Instruction Type:Patient Education Patient Instructions Indication:Tobacco use Start:27-Dec-2019 Instruction Type:Provider Instructions for Treatment How to access health informa tion online Indication:BMI 23.0-23.9, adult Start:02-Aug-2019 Instruction Type:Patient Education How to access health informa tion online - Detail Indication:BMI 23.0-23.9, adult Start:02-Aug-2019 Instruction Type:Patient Education Patient Instructions Indication:BMI 23.0-23.9, adult Start:02-Aug-2019 Instruction Type:Provider Instructions for Treatment How to access health informa tion online Indication:Impaired fasting glucose Start:29-Mar-2019 Instruction Type:Patient Education How to access health informa tion online - Detail Indication:Impaired fasting glucose Start:29-Mar-2019 Instruction Type:Patient Education Patient Instructions Indication:Impaired fasting glucose Start:29-Mar-2019 Instruction Type:Provider Instructions for Treatment Patient Instructions Indication:Hypercholesteremia Start:02-Feb-2019 Instruction Type:Provider Instructions for Treatment How to access health informa tion online Indication:Smoker Start:02-Feb-2019 Instruction Type:Patient Education How to access health informa tion online - Detail Indication:Smoker Start:02-Feb-2019 Instruction Type:Patient Education How to access health informa tion online Indication:Tobacco use Start:14-Dec-2018 Instruction Type:Patient Education How to access health informa tion online - Detail Indication:Tobacco use Start:14-Dec-2018 Instruction Type:Patient Education Patient Instructions Indication:Tobacco use Start:14-Dec-2018 Instruction Type:Provider Instructions for Treatment How to access health informa tion online Indication:Smoker Start:30-Nov-2018 Instruction Type:Patient Education How to access health informa tion online - Detail Indication:Smoker Start:30-Nov-2018 Instruction Type:Patient Education Patient Instructions Indication:Smoker Start:30-Nov-2018 Instruction Type:Provider Instructions for Treatment How to access health informa tion online Indication:Nonsmoker Start:26-Oct-2018 Instruction Type:Patient Education How to access health informa tion online - Detail Indication:Nonsmoker Start:26-Oct-2018 Instruction Type:Patient Education Patient Instructions Indication:Nonsmoker Start:26-Oct-2018 Instruction Type:Provider Instructions for Treatment How to access health informa tion online Indication:Nonsmoker Start:14-Nov-2017 Instruction Type:Patient Education How to access health informa tion online - Detail Indication:Nonsmoker Start:14-Nov-2017 Instruction Type:Patient Education Patient Instructions Indication:Back pain, acute Start:14-Nov-2017 Instruction Type:Provider Instructions for Treatment How to access health informa tion online Indication:Impaired fasting glucose Start:05-Oct-2017 Instruction Type:Patient Education How to access health informa tion online - Detail Indication:Impaired fasting glucose Start:05-Oct-2017 Instruction Type:Patient Education Patient Instructions Indication:Impaired fasting glucose Start:05-Oct-2017 Instruction Type:Provider Instructions for Treatment How to access health informa tion online Indication:Impaired fasting glucose Start:24-Nov-2016 Instruction Type:Patient Education How to access health informa tion online - Detail Indication:Impaired fasting glucose Start:24-Nov-2016 Instruction Type:Patient Education Patient Instructions Indication:Impaired fasting glucose Start:24-Nov-2016 Instruction Type:Provider Instructions for Treatment How to access health informa tion online Indication:Impaired fasting glucose Start:21-Jul-2016 Instruction Type:Patient Education How to access health informa tion online - Detail Indication:Impaired fasting glucose Start:21-Jul-2016 Instruction Type:Patient Education Patient Instructions Indication:Impaired fasting glucose Start:21-Jul-2016 Instruction Type:Provider Instructions for Treatment Patient Instructions Indication:Torticollis Start:19-Mar-2016 Instruction Type:Provider Instructions for Treatment How to access health informa tion online Indication:Hypercholesteremia Start:19-Mar-2016 Instruction Type:Patient Education How to access health informa tion online - Detail Indication:Hypercholesteremia Start:19-Mar-2016 Instruction Type:Patient Education Patient Instructions Indication:Hypercholesteremia Start:19-Mar-2016 Instruction Type:Provider Instructions for Treatment How to access health informa tion online Indication:Hypercholesteremia Start:25-Aug-2015 Instruction Type:Patient Education How to access health informa tion online - Detail Indication:Hypercholesteremia Start:25-Aug-2015 Instruction Type:Patient Education Patient Instructions Indication:Hypercholesteremia Start:25-Aug-2015 Instruction Type:Provider Instructions for Treatment Patient Instructions Indication:Fever and chills Start:01-Oct-2014 Instruction Type:Provider Instructions for Treatment How to access health informa tion online Indication:Impaired fasting glucose Start:02-Sep-2014 Instruction Type:Patient Education How to access health informa tion online - Detail Indication:Impaired fasting glucose Start:02-Sep-2014 Instruction Type:Patient Education Patient Instructions Indication:Impaired fasting glucose Start:02-Sep-2014 Instruction Type:Provider Instructions for Treatment Patient Instructions Indication:Impaired fasting glucose Start:08-Oct-2013 Instruction Type:Provider Instructions for Treatment Patient Instructions Indication:Hypercholesteremia Start:01-Jan-2013 Instruction Type:Provider Instructions for Treatment Patient Instructions Indication:Gallstones Start:31-Oct-2012 Instruction Type:Provider Instructions for Treatment Patient Instructions Indication:Hematuria Start:20-Oct-2012 Instruction Type:Provider Instructions for Treatment [facility]; [facility] Work Phone: Instructions* Name Dates Details How to Access Health [employer] using Patient Portal and [employer] Apps Indication:Smoker Start:20-Jan-2023 Instruction Type:Patient Education Patient Instructions Indication:Smoker Start:20-Jan-2023 Instruction Type:Provider Instructions for Treatment Patient Instructions Indication:Smoker Start:06-Jan-2023 Instruction Type:Provider Instructions for Treatment How to Access Health Informa tion Online using Patient Portal and [employer] Indication:Smoker Start:06-Jan-2023 Instruction Type:Patient Education Patient Instructions Indication:Smoker Start:23-Dec-2022 Instruction Type:Provider Instructions for Treatment How to Access Health Informa tion Online using Patient Portal and [employer] Apps Indication:Smoker Start:23-Dec-2022 Instruction Type:Patient Education Patient Instructions Indication:BMI 23.0-23.9, adult Start:20-Aug-2022 Instruction Type:Provider Instructions for Treatment How to Access Health Informa tion Online using Patient Portal and [employer] Indication:BMI 23.0-23.9, adult Start:20-Aug-2022 Instruction Type:Patient Education How to Access Health Informa tion Online using Patient Portal and [employer] Apps Indication:Smoker Start:29-Jan-2022 Instruction Type:Patient Education Patient Instructions Indication:Smoker Start:29-Jan-2022 Instruction Type:Provider Instructions for Treatment Patient Instructions Indication:Smoker Start:21-Oct-2021 Instruction Type:Provider Instructions for Treatment How to Access Health Informa tion Online using Patient Portal and [employer] Indication:Smoker Start:21-Oct-2021 Instruction Type:Patient Education Patient Instructions Indication:Smoker Start:01-Jun-2021 Instruction Type:Provider Instructions for Treatment How to Access Health Informa tion Online using Patient Portal and [employer] Apps Indication:Smoker Start:01-Jun-2021 Instruction Type:Patient Education Patient Instructions Indication:BMI 23.0-23.9, adult Start:06-Apr-2021 Instruction Type:Provider Instructions for Treatment How to Access Health Informa tion Online using Patient Portal and [employer] Indication:BMI 23.0-23.9, adult Start:06-Apr-2021 Instruction Type:Patient Education How to Access Health Informa tion Online using Patient Portal and [employer] Indication:Smoker Start:19-Jan-2021 Instruction Type:Patient Education Patient Instructions Indication:Smoker Start:19-Jan-2021 Instruction Type:Provider Instructions for Treatment How to Access Health Informa tion Online using Patient Portal and [employer] Indication:Smoker Start:01-Dec-2020 Instruction Type:Patient Education Patient Instructions Indication:Smoker Start:01-Dec-2020 Instruction Type:Provider Instructions for Treatment How to Access Health Informa tion Online using Patient Portal and [employer] Indication:Smoker Start:01-Sep-2020 Instruction Type:Patient Education Patient Instructions Indication:Smoker Start:01-Sep-2020 Instruction Type:Provider Instructions for Treatment How to access health informa tion online Indication:Smoker Start:30-Apr-2020 Instruction Type:Patient Education How to access health informa tion online - Detail Indication:Need for prophylactic vaccination and inoculation against influenza (Renamed from Need for immunization against influenza) Start:30-Apr-2020 Instruction Type:Patient Education Patient Instructions Indication:Smoker Start:30-Apr-2020 Instruction Type:Provider Instructions for Treatment How to access health informa tion online Indication:BMI 24.0-24.9, adult Start:28-Jan-2020 Instruction Type:Patient Education How to access health informa tion online - Detail Indication:BMI 24.0-24.9, adult Start:28-Jan-2020 Instruction Type:Patient Education Patient Instructions Indication:BMI 24.0-24.9, adult Start:28-Jan-2020 Instruction Type:Provider Instructions for Treatment How to access health informa tion online Indication:BMI 23.0-23.9, adult Start:09-Jan-2020 Instruction Type:Patient Education How to access health informa tion online - Detail Indication:BMI 23.0-23.9, adult Start:09-Jan-2020 Instruction Type:Patient Education Patient Instructions Indication:BMI 23.0-23.9, adult Start:09-Jan-2020 Instruction Type:Provider Instructions for Treatment How to access health informa tion online Indication:Tobacco use Start:27-Dec-2019 Instruction Type:Patient Education How to access health informa tion online - Detail Indication:Tobacco use Start:27-Dec-2019 Instruction Type:Patient Education Patient Instructions Indication:Tobacco use Start:27-Dec-2019 Instruction Type:Provider Instructions for Treatment How to access health informa tion online Indication:BMI 23.0-23.9, adult Start:02-Aug-2019 Instruction Type:Patient Education How to access health informa tion online - Detail Indication:BMI 23.0-23.9, adult Start:02-Aug-2019 Instruction Type:Patient Education Patient Instructions Indication:BMI 23.0-23.9, adult Start:02-Aug-2019 Instruction Type:Provider Instructions for Treatment How to access health informa tion online Indication:Impaired fasting glucose Start:29-Mar-2019 Instruction Type:Patient Education How to access health informa tion online - Detail Indication:Impaired fasting glucose Start:29-Mar-2019 Instruction Type:Patient Education Patient Instructions Indication:Impaired fasting glucose Start:29-Mar-2019 Instruction Type:Provider Instructions for Treatment Patient Instructions Indication:Hypercholesteremia Start:02-Feb-2019 Instruction Type:Provider Instructions for Treatment How to access health informa tion online Indication:Smoker Start:02-Feb-2019 Instruction Type:Patient Education How to access health informa tion online - Detail Indication:Smoker Start:02-Feb-2019 Instruction Type:Patient Education How to access health informa tion online Indication:Tobacco use Start:14-Dec-2018 Instruction Type:Patient Education How to access health informa tion online - Detail Indication:Tobacco use Start:14-Dec-2018 Instruction Type:Patient Education Patient Instructions Indication:Tobacco use Start:14-Dec-2018 Instruction Type:Provider Instructions for Treatment How to access health informa tion online Indication:Smoker Start:30-Nov-2018 Instruction Type:Patient Education How to access health informa tion online - Detail Indication:Smoker Start:30-Nov-2018 Instruction Type:Patient Education Patient Instructions Indication:Smoker Start:30-Nov-2018 Instruction Type:Provider Instructions for Treatment How to access health informa tion online Indication:Nonsmoker Start:26-Oct-2018 Instruction Type:Patient Education How to access health informa tion online - Detail Indication:Nonsmoker Start:26-Oct-2018 Instruction Type:Patient Education Patient Instructions Indication:Nonsmoker Start:26-Oct-2018 Instruction Type:Provider Instructions for Treatment How to access health informa tion online Indication:Nonsmoker Start:14-Nov-2017 Instruction Type:Patient Education How to access health informa tion online - Detail Indication:Nonsmoker Start:14-Nov-2017 Instruction Type:Patient Education Patient Instructions Indication:Back pain, acute Start:14-Nov-2017 Instruction Type:Provider Instructions for Treatment How to access health informa tion online Indication:Impaired fasting glucose Start:05-Oct-2017 Instruction Type:Patient Education How to access health informa tion online - Detail Indication:Impaired fasting glucose Start:05-Oct-2017 Instruction Type:Patient Education Patient Instructions Indication:Impaired fasting glucose Start:05-Oct-2017 Instruction Type:Provider Instructions for Treatment How to access health informa tion online Indication:Impaired fasting glucose Start:24-Nov-2016 Instruction Type:Patient Education How to access health informa tion online - Detail Indication:Impaired fasting glucose Start:24-Nov-2016 Instruction Type:Patient Education Patient Instructions Indication:Impaired fasting glucose Start:24-Nov-2016 Instruction Type:Provider Instructions for Treatment How to access health informa tion online Indication:Impaired fasting glucose Start:21-Jul-2016 Instruction Type:Patient Education How to access health informa tion online - Detail Indication:Impaired fasting glucose Start:21-Jul-2016 Instruction Type:Patient Education Patient Instructions Indication:Impaired fasting glucose Start:21-Jul-2016 Instruction Type:Provider Instructions for Treatment Patient Instructions Indication:Torticollis Start:19-Mar-2016 Instruction Type:Provider Instructions for Treatment How to access health informa tion online Indication:Hypercholesteremia Start:19-Mar-2016 Instruction Type:Patient Education How to access health informa tion online - Detail Indication:Hypercholesteremia Start:19-Mar-2016 Instruction Type:Patient Education Patient Instructions Indication:Hypercholesteremia Start:19-Mar-2016 Instruction Type:Provider Instructions for Treatment How to access health informa tion online Indication:Hypercholesteremia Start:25-Aug-2015 Instruction Type:Patient Education How to access health informa tion online - Detail Indication:Hypercholesteremia Start:25-Aug-2015 Instruction Type:Patient Education Patient Instructions Indication:Hypercholesteremia Start:25-Aug-2015 Instruction Type:Provider Instructions for Treatment Patient Instructions Indication:Fever and chills Start:01-Oct-2014 Instruction Type:Provider Instructions for Treatment How to access health informa tion online Indication:Impaired fasting glucose Start:02-Sep-2014 Instruction Type:Patient Education How to access health informa tion online - Detail Indication:Impaired fasting glucose Start:02-Sep-2014 Instruction Type:Patient Education Patient Instructions Indication:Impaired fasting glucose Start:02-Sep-2014 Instruction Type:Provider Instructions for Treatment Patient Instructions Indication:Impaired fasting glucose Start:08-Oct-2013 Instruction Type:Provider Instructions for Treatment Patient Instructions Indication:Hypercholesteremia Start:01-Jan-2013 Instruction Type:Provider Instructions for Treatment Patient Instructions Indication:Gallstones Start:31-Oct-2012 Instruction Type:Provider Instructions for Treatment Patient Instructions Indication:Hematuria Start:20-Oct-2012 Instruction Type:Provider Instructions for Treatment [facility]; [facility] Work Phone: Instructions* Name Dates Details Patient Instructions Indication:Tobacco use Start:31-Jan-2023 Instruction Type:Provider Instructions for Treatment How to Access Health Informa tion Online using Patient Portal and [employer] Apps Indication:Tobacco use Start:31-Jan-2023 Instruction Type:Patient Education How to Access Health Informa tion Online using Patient Portal and [employer] Apps Indication:Smoker Start:20-Jan-2023 Instruction Type:Patient Education Patient Instructions Indication:Smoker Start:20-Jan-2023 Instruction Type:Provider Instructions for Treatment Patient Instructions Indication:Smoker Start:06-Jan-2023 Instruction Type:Provider Instructions for Treatment How to Access Health Informa tion Online using Patient Portal and [employer] Apps Indication:Smoker Start:06-Jan-2023 Instruction Type:Patient Education Patient Instructions Indication:Smoker Start:23-Dec-2022 Instruction Type:Provider Instructions for Treatment How to Access Health Informa tion Online using Patient Portal and [employer] Apps Indication:Smoker Start:23-Dec-2022 Instruction Type:Patient Education Patient Instructions Indication:BMI 23.0-23.9, adult Start:20-Aug-2022 Instruction Type:Provider Instructions for Treatment How to Access Health Informa tion Online using Patient Portal and [employer] Apps Indication:BMI 23.0-23.9, adult Start:20-Aug-2022 Instruction Type:Patient Education How to Access Health Informa tion Online using Patient Portal and [employer] Apps Indication:Smoker Start:29-Jan-2022 Instruction Type:Patient Education Patient Instructions Indication:Smoker Start:29-Jan-2022 Instruction Type:Provider Instructions for Treatment Patient Instructions Indication:Smoker Start:21-Oct-2021 Instruction Type:Provider Instructions for Treatment How to Access Health Informa tion Online using Patient Portal and [employer] Apps Indication:Smoker Start:21-Oct-2021 Instruction Type:Patient Education Patient Instructions Indication:Smoker Start:01-Jun-2021 Instruction Type:Provider Instructions for Treatment How to Access Health Informa tion Online using Patient Portal and [employer] Apps Indication:Smoker Start:01-Jun-2021 Instruction Type:Patient Education Patient Instructions Indication:BMI 23.0-23.9, adult Start:06-Apr-2021 Instruction Type:Provider Instructions for Treatment How to Access Health Informa tion Online using Patient Portal and [employer] Apps Indication:BMI 23.0-23.9, adult Start:06-Apr-2021 Instruction Type:Patient Education How to Access Health Informa tion Online using Patient Portal and [employer] Apps Indication:Smoker Start:19-Jan-2021 Instruction Type:Patient Education Patient Instructions Indication:Smoker Start:19-Jan-2021 Instruction Type:Provider Instructions for Treatment How to Access Health Informa tion Online using Patient Portal and [employer] Apps Indication:Smoker Start:01-Dec-2020 Instruction Type:Patient Education Patient Instructions Indication:Smoker Start:01-Dec-2020 Instruction Type:Provider Instructions for Treatment How to Access Health Informa tion Online using Patient Portal and [employer] Apps Indication:Smoker Start:01-Sep-2020 Instruction Type:Patient Education Patient Instructions Indication:Smoker Start:01-Sep-2020 Instruction Type:Provider Instructions for Treatment How to access health informa tion online Indication:Smoker Start:30-Apr-2020 Instruction Type:Patient Education How to access health informa tion online - Detail Indication:Need for prophylactic vaccination and inoculation against influenza (Renamed from Need for immunization against influenza) Start:30-Apr-2020 Instruction Type:Patient Education Patient Instructions Indication:Smoker Start:30-Apr-2020 Instruction Type:Provider Instructions for Treatment How to access health informa tion online Indication:BMI 24.0-24.9, adult Start:28-Jan-2020 Instruction Type:Patient Education How to access health informa tion online - Detail Indication:BMI 24.0-24.9, adult Start:28-Jan-2020 Instruction Type:Patient Education Patient Instructions Indication:BMI 24.0-24.9, adult Start:28-Jan-2020 Instruction Type:Provider Instructions for Treatment How to access health informa tion online Indication:BMI 23.0-23.9, adult Start:09-Jan-2020 Instruction Type:Patient Education How to access health informa tion online - Detail Indication:BMI 23.0-23.9, adult Start:09-Jan-2020 Instruction Type:Patient Education Patient Instructions Indication:BMI 23.0-23.9, adult Start:09-Jan-2020 Instruction Type:Provider Instructions for Treatment How to access health informa tion online Indication:Tobacco use Start:27-Dec-2019 Instruction Type:Patient Education How to access health informa tion online - Detail Indication:Tobacco use Start:27-Dec-2019 Instruction Type:Patient Education Patient Instructions Indication:Tobacco use Start:27-Dec-2019 Instruction Type:Provider Instructions for Treatment How to access health informa tion online Indication:BMI 23.0-23.9, adult Start:02-Aug-2019 Instruction Type:Patient Education How to access health informa tion online - Detail Indication:BMI 23.0-23.9, adult Start:02-Aug-2019 Instruction Type:Patient Education Patient Instructions Indication:BMI 23.0-23.9, adult Start:02-Aug-2019 Instruction Type:Provider Instructions for Treatment How to access health informa tion online Indication:Impaired fasting glucose Start:29-Mar-2019 Instruction Type:Patient Education How to access health informa tion online - Detail Indication:Impaired fasting glucose Start:29-Mar-2019 Instruction Type:Patient Education Patient Instructions Indication:Impaired fasting glucose Start:29-Mar-2019 Instruction Type:Provider Instructions for Treatment Patient Instructions Indication:Hypercholesteremia Start:02-Feb-2019 Instruction Type:Provider Instructions for Treatment How to access health informa tion online Indication:Smoker Start:02-Feb-2019 Instruction Type:Patient Education How to access health informa tion online - Detail Indication:Smoker Start:02-Feb-2019 Instruction Type:Patient Education How to access health informa tion online Indication:Tobacco use Start:14-Dec-2018 Instruction Type:Patient Education How to access health informa tion online - Detail Indication:Tobacco use Start:14-Dec-2018 Instruction Type:Patient Education Patient Instructions Indication:Tobacco use Start:14-Dec-2018 Instruction Type:Provider Instructions for Treatment How to access health informa tion online Indication:Smoker Start:30-Nov-2018 Instruction Type:Patient Education How to access health informa tion online - Detail Indication:Smoker Start:30-Nov-2018 Instruction Type:Patient Education Patient Instructions Indication:Smoker Start:30-Nov-2018 Instruction Type:Provider Instructions for Treatment How to access health informa tion online Indication:Nonsmoker Start:26-Oct-2018 Instruction Type:Patient Education How to access health informa tion online - Detail Indication:Nonsmoker Start:26-Oct-2018 Instruction Type:Patient Education Patient Instructions Indication:Nonsmoker Start:26-Oct-2018 Instruction Type:Provider Instructions for Treatment How to access health informa tion online Indication:Nonsmoker Start:14-Nov-2017 Instruction Type:Patient Education How to access health informa tion online - Detail Indication:Nonsmoker Start:14-Nov-2017 Instruction Type:Patient Education Patient Instructions Indication:Back pain, acute Start:14-Nov-2017 Instruction Type:Provider Instructions for Treatment How to access health informa tion online Indication:Impaired fasting glucose Start:05-Oct-2017 Instruction Type:Patient Education How to access health informa tion online - Detail Indication:Impaired fasting glucose Start:05-Oct-2017 Instruction Type:Patient Education Patient Instructions Indication:Impaired fasting glucose Start:05-Oct-2017 Instruction Type:Provider Instructions for Treatment How to access health informa tion online Indication:Impaired fasting glucose Start:24-Nov-2016 Instruction Type:Patient Education How to access health informa tion online - Detail Indication:Impaired fasting glucose Start:24-Nov-2016 Instruction Type:Patient Education Patient Instructions Indication:Impaired fasting glucose Start:24-Nov-2016 Instruction Type:Provider Instructions for Treatment How to access health informa tion online Indication:Impaired fasting glucose Start:21-Jul-2016 Instruction Type:Patient Education How to access health informa tion online - Detail Indication:Impaired fasting glucose Start:21-Jul-2016 Instruction Type:Patient Education Patient Instructions Indication:Impaired fasting glucose Start:21-Jul-2016 Instruction Type:Provider Instructions for Treatment Patient Instructions Indication:Torticollis Start:19-Mar-2016 Instruction Type:Provider Instructions for Treatment How to access health informa tion online Indication:Hypercholesteremia Start:19-Mar-2016 Instruction Type:Patient Education How to access health informa tion online - Detail Indication:Hypercholesteremia Start:19-Mar-2016 Instruction Type:Patient Education Patient Instructions Indication:Hypercholesteremia Start:19-Mar-2016 Instruction Type:Provider Instructions for Treatment How to access health informa tion online Indication:Hypercholesteremia Start:25-Aug-2015 Instruction Type:Patient Education How to access health informa tion online - Detail Indication:Hypercholesteremia Start:25-Aug-2015 Instruction Type:Patient Education Patient Instructions Indication:Hypercholesteremia Start:25-Aug-2015 Instruction Type:Provider Instructions for Treatment Patient Instructions Indication:Fever and chills Start:01-Oct-2014 Instruction Type:Provider Instructions for Treatment How to access health informa tion online Indication:Impaired fasting glucose Start:02-Sep-2014 Instruction Type:Patient Education How to access health informa tion online - Detail Indication:Impaired fasting glucose Start:02-Sep-2014 Instruction Type:Patient Education Patient Instructions Indication:Impaired fasting glucose Start:02-Sep-2014 Instruction Type:Provider Instructions for Treatment Patient Instructions Indication:Impaired fasting glucose Start:08-Oct-2013 Instruction Type:Provider Instructions for Treatment Patient Instructions Indication:Hypercholesteremia Start:01-Jan-2013 Instruction Type:Provider Instructions for Treatment Patient Instructions Indication:Gallstones Start:31-Oct-2012 Instruction Type:Provider Instructions for Treatment Patient Instructions Indication:Hematuria Start:20-Oct-2012 Instruction Type:Provider Instructions for Treatment [facility]; [facility] Work Phone: Instructions* Name Dates Details Patient Instructions Indication:Tobacco use Start:31-Jan-2023 Instruction Type:Provider Instructions for Treatment How to Access Health Informa tion Online using Patient Portal and [employer] Apps Indication:Tobacco use Start:31-Jan-2023 Instruction Type:Patient Education How to Access Health Informa tion Online using Patient Portal and [employer] Apps Indication:Smoker Start:20-Jan-2023 Instruction Type:Patient Education Patient Instructions Indication:Smoker Start:20-Jan-2023 Instruction Type:Provider Instructions for Treatment Patient Instructions Indication:Smoker Start:06-Jan-2023 Instruction Type:Provider Instructions for Treatment How to Access Health Informa tion Online using Patient Portal and [employer] Apps Indication:Smoker Start:06-Jan-2023 Instruction Type:Patient Education Patient Instructions Indication:Smoker Start:23-Dec-2022 Instruction Type:Provider Instructions for Treatment How to Access Health Informa tion Online using Patient Portal and [employer] Apps Indication:Smoker Start:23-Dec-2022 Instruction Type:Patient Education Patient Instructions Indication:BMI 23.0-23.9, adult Start:20-Aug-2022 Instruction Type:Provider Instructions for Treatment How to Access Health Informa tion Online using Patient Portal and [employer] Apps Indication:BMI 23.0-23.9, adult Start:20-Aug-2022 Instruction Type:Patient Education How to Access Health Informa tion Online using Patient Portal and [employer] Apps Indication:Smoker Start:29-Jan-2022 Instruction Type:Patient Education Patient Instructions Indication:Smoker Start:29-Jan-2022 Instruction Type:Provider Instructions for Treatment Patient Instructions Indication:Smoker Start:21-Oct-2021 Instruction Type:Provider Instructions for Treatment How to Access Health Informa tion Online using Patient Portal and [employer] Apps Indication:Smoker Start:21-Oct-2021 Instruction Type:Patient Education Patient Instructions Indication:Smoker Start:01-Jun-2021 Instruction Type:Provider Instructions for Treatment How to Access Health Informa tion Online using Patient Portal and [employer] Apps Indication:Smoker Start:01-Jun-2021 Instruction Type:Patient Education Patient Instructions Indication:BMI 23.0-23.9, adult Start:06-Apr-2021 Instruction Type:Provider Instructions for Treatment How to Access Health Informa tion Online using Patient Portal and [employer] Apps Indication:BMI 23.0-23.9, adult Start:06-Apr-2021 Instruction Type:Patient Education How to Access Health Informa tion Online using Patient Portal and [employer] Apps Indication:Smoker Start:19-Jan-2021 Instruction Type:Patient Education Patient Instructions Indication:Smoker Start:19-Jan-2021 Instruction Type:Provider Instructions for Treatment How to Access Health Informa tion Online using Patient Portal and [employer] Apps Indication:Smoker Start:01-Dec-2020 Instruction Type:Patient Education Patient Instructions Indication:Smoker Start:01-Dec-2020 Instruction Type:Provider Instructions for Treatment How to Access Health Informa tion Online using Patient Portal and [employer] Apps Indication:Smoker Start:01-Sep-2020 Instruction Type:Patient Education Patient Instructions Indication:Smoker Start:01-Sep-2020 Instruction Type:Provider Instructions for Treatment How to access health informa tion online Indication:Smoker Start:30-Apr-2020 Instruction Type:Patient Education How to access health informa tion online - Detail Indication:Need for prophylactic vaccination and inoculation against influenza (Renamed from Need for immunization against influenza) Start:30-Apr-2020 Instruction Type:Patient Education Patient Instructions Indication:Smoker Start:30-Apr-2020 Instruction Type:Provider Instructions for Treatment How to access health informa tion online Indication:BMI 24.0-24.9, adult Start:28-Jan-2020 Instruction Type:Patient Education How to access health informa tion online - Detail Indication:BMI 24.0-24.9, adult Start:28-Jan-2020 Instruction Type:Patient Education Patient Instructions Indication:BMI 24.0-24.9, adult Start:28-Jan-2020 Instruction Type:Provider Instructions for Treatment How to access health informa tion online Indication:BMI 23.0-23.9, adult Start:09-Jan-2020 Instruction Type:Patient Education How to access health informa tion online - Detail Indication:BMI 23.0-23.9, adult Start:09-Jan-2020 Instruction Type:Patient Education Patient Instructions Indication:BMI 23.0-23.9, adult Start:09-Jan-2020 Instruction Type:Provider Instructions for Treatment How to access health informa tion online Indication:Tobacco use Start:27-Dec-2019 Instruction Type:Patient Education How to access health informa tion online - Detail Indication:Tobacco use Start:27-Dec-2019 Instruction Type:Patient Education Patient Instructions Indication:Tobacco use Start:27-Dec-2019 Instruction Type:Provider Instructions for Treatment How to access health informa tion online Indication:BMI 23.0-23.9, adult Start:02-Aug-2019 Instruction Type:Patient Education How to access health informa tion online - Detail Indication:BMI 23.0-23.9, adult Start:02-Aug-2019 Instruction Type:Patient Education Patient Instructions Indication:BMI 23.0-23.9, adult Start:02-Aug-2019 Instruction Type:Provider Instructions for Treatment How to access health informa tion online Indication:Impaired fasting glucose Start:29-Mar-2019 Instruction Type:Patient Education How to access health informa tion online - Detail Indication:Impaired fasting glucose Start:29-Mar-2019 Instruction Type:Patient Education Patient Instructions Indication:Impaired fasting glucose Start:29-Mar-2019 Instruction Type:Provider Instructions for Treatment Patient Instructions Indication:Hypercholesteremia Start:02-Feb-2019 Instruction Type:Provider Instructions for Treatment How to access health informa tion online Indication:Smoker Start:02-Feb-2019 Instruction Type:Patient Education How to access health informa tion online - Detail Indication:Smoker Start:02-Feb-2019 Instruction Type:Patient Education How to access health informa tion online Indication:Tobacco use Start:14-Dec-2018 Instruction Type:Patient Education How to access health informa tion online - Detail Indication:Tobacco use Start:14-Dec-2018 Instruction Type:Patient Education Patient Instructions Indication:Tobacco use Start:14-Dec-2018 Instruction Type:Provider Instructions for Treatment How to access health informa tion online Indication:Smoker Start:30-Nov-2018 Instruction Type:Patient Education How to access health informa tion online - Detail Indication:Smoker Start:30-Nov-2018 Instruction Type:Patient Education Patient Instructions Indication:Smoker Start:30-Nov-2018 Instruction Type:Provider Instructions for Treatment How to access health informa tion online Indication:Nonsmoker Start:26-Oct-2018 Instruction Type:Patient Education How to access health informa tion online - Detail Indication:Nonsmoker Start:26-Oct-2018 Instruction Type:Patient Education Patient Instructions Indication:Nonsmoker Start:26-Oct-2018 Instruction Type:Provider Instructions for Treatment How to access health informa tion online Indication:Nonsmoker Start:14-Nov-2017 Instruction Type:Patient Education How to access health informa tion online - Detail Indication:Nonsmoker Start:14-Nov-2017 Instruction Type:Patient Education Patient Instructions Indication:Back pain, acute Start:14-Nov-2017 Instruction Type:Provider Instructions for Treatment How to access health informa tion online Indication:Impaired fasting glucose Start:05-Oct-2017 Instruction Type:Patient Education How to access health informa tion online - Detail Indication:Impaired fasting glucose Start:05-Oct-2017 Instruction Type:Patient Education Patient Instructions Indication:Impaired fasting glucose Start:05-Oct-2017 Instruction Type:Provider Instructions for Treatment How to access health informa tion online Indication:Impaired fasting glucose Start:24-Nov-2016 Instruction Type:Patient Education How to access health informa tion online - Detail Indication:Impaired fasting glucose Start:24-Nov-2016 Instruction Type:Patient Education Patient Instructions Indication:Impaired fasting glucose Start:24-Nov-2016 Instruction Type:Provider Instructions for Treatment How to access health informa tion online Indication:Impaired fasting glucose Start:21-Jul-2016 Instruction Type:Patient Education How to access health informa tion online - Detail Indication:Impaired fasting glucose Start:21-Jul-2016 Instruction Type:Patient Education Patient Instructions Indication:Impaired fasting glucose Start:21-Jul-2016 Instruction Type:Provider Instructions for Treatment Patient Instructions Indication:Torticollis Start:19-Mar-2016 Instruction Type:Provider Instructions for Treatment How to access health informa tion online Indication:Hypercholesteremia Start:19-Mar-2016 Instruction Type:Patient Education How to access health informa tion online - Detail Indication:Hypercholesteremia Start:19-Mar-2016 Instruction Type:Patient Education Patient Instructions Indication:Hypercholesteremia Start:19-Mar-2016 Instruction Type:Provider Instructions for Treatment How to access health informa tion online Indication:Hypercholesteremia Start:25-Aug-2015 Instruction Type:Patient Education How to access health informa tion online - Detail Indication:Hypercholesteremia Start:25-Aug-2015 Instruction Type:Patient Education Patient Instructions Indication:Hypercholesteremia Start:25-Aug-2015 Instruction Type:Provider Instructions for Treatment Patient Instructions Indication:Fever and chills Start:01-Oct-2014 Instruction Type:Provider Instructions for Treatment How to access health informa tion online Indication:Impaired fasting glucose Start:02-Sep-2014 Instruction Type:Patient Education How to access health informa tion online - Detail Indication:Impaired fasting glucose Start:02-Sep-2014 Instruction Type:Patient Education Patient Instructions Indication:Impaired fasting glucose Start:02-Sep-2014 Instruction Type:Provider Instructions for Treatment Patient Instructions Indication:Impaired fasting glucose Start:08-Oct-2013 Instruction Type:Provider Instructions for Treatment Patient Instructions Indication:Hypercholesteremia Start:01-Jan-2013 Instruction Type:Provider Instructions for Treatment Patient Instructions Indication:Gallstones Start:31-Oct-2012 Instruction Type:Provider Instructions for Treatment Patient Instructions Indication:Hematuria Start:20-Oct-2012 Instruction Type:Provider Instructions for Treatment [facility] Work Phone: Instructions* Name Dates Details Patient Instructions Indication:Tobacco use Start:31-Jan-2023 Instruction Type:Provider Instructions for Treatment How to Access Health Informa tion Online using Patient Portal and [employer] Apps Indication:Tobacco use Start:31-Jan-2023 Instruction Type:Patient Education How to Access Health Informa tion Online using Patient Portal and [employer] Apps Indication:Smoker Start:20-Jan-2023 Instruction Type:Patient Education Patient Instructions Indication:Smoker Start:20-Jan-2023 Instruction Type:Provider Instructions for Treatment Patient Instructions Indication:Smoker Start:06-Jan-2023 Instruction Type:Provider Instructions for Treatment How to Access Health Informa tion Online using Patient Portal and [employer] Apps Indication:Smoker Start:06-Jan-2023 Instruction Type:Patient Education Patient Instructions Indication:Smoker Start:23-Dec-2022 Instruction Type:Provider Instructions for Treatment How to Access Health Informa tion Online using Patient Portal and [employer] Apps Indication:Smoker Start:23-Dec-2022 Instruction Type:Patient Education Patient Instructions Indication:BMI 23.0-23.9, adult Start:20-Aug-2022 Instruction Type:Provider Instructions for Treatment How to Access Health Informa tion Online using Patient Portal and [employer] Apps Indication:BMI 23.0-23.9, adult Start:20-Aug-2022 Instruction Type:Patient Education How to Access Health Informa tion Online using Patient Portal and [employer] Apps Indication:Smoker Start:29-Jan-2022 Instruction Type:Patient Education Patient Instructions Indication:Smoker Start:29-Jan-2022 Instruction Type:Provider Instructions for Treatment Patient Instructions Indication:Smoker Start:21-Oct-2021 Instruction Type:Provider Instructions for Treatment How to Access Health Informa tion Online using Patient Portal and [employer] Apps Indication:Smoker Start:21-Oct-2021 Instruction Type:Patient Education Patient Instructions Indication:Smoker Start:01-Jun-2021 Instruction Type:Provider Instructions for Treatment How to Access Health Informa tion Online using Patient Portal and [employer] Apps Indication:Smoker Start:01-Jun-2021 Instruction Type:Patient Education Patient Instructions Indication:BMI 23.0-23.9, adult Start:06-Apr-2021 Instruction Type:Provider Instructions for Treatment How to Access Health Informa tion Online using Patient Portal and [employer] Apps Indication:BMI 23.0-23.9, adult Start:06-Apr-2021 Instruction Type:Patient Education How to Access Health Informa tion Online using Patient Portal and [employer] Apps Indication:Smoker Start:19-Jan-2021 Instruction Type:Patient Education Patient Instructions Indication:Smoker Start:19-Jan-2021 Instruction Type:Provider Instructions for Treatment How to Access Health Informa tion Online using Patient Portal and [employer] Apps Indication:Smoker Start:01-Dec-2020 Instruction Type:Patient Education Patient Instructions Indication:Smoker Start:01-Dec-2020 Instruction Type:Provider Instructions for Treatment How to Access Health Informa tion Online using Patient Portal and [employer] Apps Indication:Smoker Start:01-Sep-2020 Instruction Type:Patient Education Patient Instructions Indication:Smoker Start:01-Sep-2020 Instruction Type:Provider Instructions for Treatment How to access health informa tion online Indication:Smoker Start:30-Apr-2020 Instruction Type:Patient Education How to access health informa tion online - Detail Indication:Need for prophylactic vaccination and inoculation against influenza (Renamed from Need for immunization against influenza) Start:30-Apr-2020 Instruction Type:Patient Education Patient Instructions Indication:Smoker Start:30-Apr-2020 Instruction Type:Provider Instructions for Treatment How to access health informa tion online Indication:BMI 24.0-24.9, adult Start:28-Jan-2020 Instruction Type:Patient Education How to access health informa tion online - Detail Indication:BMI 24.0-24.9, adult Start:28-Jan-2020 Instruction Type:Patient Education Patient Instructions Indication:BMI 24.0-24.9, adult Start:28-Jan-2020 Instruction Type:Provider Instructions for Treatment How to access health informa tion online Indication:BMI 23.0-23.9, adult Start:09-Jan-2020 Instruction Type:Patient Education How to access health informa tion online - Detail Indication:BMI 23.0-23.9, adult Start:09-Jan-2020 Instruction Type:Patient Education Patient Instructions Indication:BMI 23.0-23.9, adult Start:09-Jan-2020 Instruction Type:Provider Instructions for Treatment How to access health informa tion online Indication:Tobacco use Start:27-Dec-2019 Instruction Type:Patient Education How to access health informa tion online - Detail Indication:Tobacco use Start:27-Dec-2019 Instruction Type:Patient Education Patient Instructions Indication:Tobacco use Start:27-Dec-2019 Instruction Type:Provider Instructions for Treatment How to access health informa tion online Indication:BMI 23.0-23.9, adult Start:02-Aug-2019 Instruction Type:Patient Education How to access health informa tion online - Detail Indication:BMI 23.0-23.9, adult Start:02-Aug-2019 Instruction Type:Patient Education Patient Instructions Indication:BMI 23.0-23.9, adult Start:02-Aug-2019 Instruction Type:Provider Instructions for Treatment How to access health informa tion online Indication:Impaired fasting glucose Start:29-Mar-2019 Instruction Type:Patient Education How to access health informa tion online - Detail Indication:Impaired fasting glucose Start:29-Mar-2019 Instruction Type:Patient Education Patient Instructions Indication:Impaired fasting glucose Start:29-Mar-2019 Instruction Type:Provider Instructions for Treatment Patient Instructions Indication:Hypercholesteremia Start:02-Feb-2019 Instruction Type:Provider Instructions for Treatment How to access health informa tion online Indication:Smoker Start:02-Feb-2019 Instruction Type:Patient Education How to access health informa tion online - Detail Indication:Smoker Start:02-Feb-2019 Instruction Type:Patient Education How to access health informa tion online Indication:Tobacco use Start:14-Dec-2018 Instruction Type:Patient Education How to access health informa tion online - Detail Indication:Tobacco use Start:14-Dec-2018 Instruction Type:Patient Education Patient Instructions Indication:Tobacco use Start:14-Dec-2018 Instruction Type:Provider Instructions for Treatment How to access health informa tion online Indication:Smoker Start:30-Nov-2018 Instruction Type:Patient Education How to access health informa tion online - Detail Indication:Smoker Start:30-Nov-2018 Instruction Type:Patient Education Patient Instructions Indication:Smoker Start:30-Nov-2018 Instruction Type:Provider Instructions for Treatment How to access health informa tion online Indication:Nonsmoker Start:26-Oct-2018 Instruction Type:Patient Education How to access health informa tion online - Detail Indication:Nonsmoker Start:26-Oct-2018 Instruction Type:Patient Education Patient Instructions Indication:Nonsmoker Start:26-Oct-2018 Instruction Type:Provider Instructions for Treatment How to access health informa tion online Indication:Nonsmoker Start:14-Nov-2017 Instruction Type:Patient Education How to access health informa tion online - Detail Indication:Nonsmoker Start:14-Nov-2017 Instruction Type:Patient Education Patient Instructions Indication:Back pain, acute Start:14-Nov-2017 Instruction Type:Provider Instructions for Treatment How to access health informa tion online Indication:Impaired fasting glucose Start:05-Oct-2017 Instruction Type:Patient Education How to access health informa tion online - Detail Indication:Impaired fasting glucose Start:05-Oct-2017 Instruction Type:Patient Education Patient Instructions Indication:Impaired fasting glucose Start:05-Oct-2017 Instruction Type:Provider Instructions for Treatment How to access health informa [employer] online Indication:Impaired fasting glucose Start:24-Nov-2016 Instruction Type:Patient Education How to access health informa tion online - Detail Indication:Impaired fasting glucose Start:24-Nov-2016 Instruction Type:Patient Education Patient Instructions Indication:Impaired fasting glucose Start:24-Nov-2016 Instruction Type:Provider Instructions for Treatment How to access health informa [employer] online Indication:Impaired fasting glucose Start:21-Jul-2016 Instruction Type:Patient Education How to access health informa tion online - Detail Indication:Impaired fasting glucose Start:21-Jul-2016 Instruction Type:Patient Education Patient Instructions Indication:Impaired fasting glucose Start:21-Jul-2016 Instruction Type:Provider Instructions for Treatment Patient Instructions Indication:Torticollis Start:19-Mar-2016 Instruction Type:Provider Instructions for Treatment How to access health informa [employer] online Indication:Hypercholesteremia Start:19-Mar-2016 Instruction Type:Patient Education How to access health informa tion online - Detail Indication:Hypercholesteremia Start:19-Mar-2016 Instruction Type:Patient Education Patient Instructions Indication:Hypercholesteremia Start:19-Mar-2016 Instruction Type:Provider Instructions for Treatment How to access health informa [employer] online Indication:Hypercholesteremia Start:25-Aug-2015 Instruction Type:Patient Education How to access health informa tion online - Detail Indication:Hypercholesteremia Start:25-Aug-2015 Instruction Type:Patient Education Patient Instructions Indication:Hypercholesteremia Start:25-Aug-2015 Instruction Type:Provider Instructions for Treatment Patient Instructions Indication:Fever and chills Start:01-Oct-2014 Instruction Type:Provider Instructions for Treatment How to access health informa [employer] online Indication:Impaired fasting glucose Start:02-Sep-2014 Instruction Type:Patient Education How to access health informa [employer] online - Detail Indication:Impaired fasting glucose Start:02-Sep-2014 Instruction Type:Patient Education Patient Instructions Indication:Impaired fasting glucose Start:02-Sep-2014 Instruction Type:Provider Instructions for Treatment Patient Instructions Indication:Impaired fasting glucose Start:08-Oct-2013 Instruction Type:Provider Instructions for Treatment Patient Instructions Indication:Hypercholesteremia Start:01-Jan-2013 Instruction Type:Provider Instructions for Treatment Patient Instructions Indication:Gallstones Start:31-Oct-2012 Instruction Type:Provider Instructions for Treatment Patient Instructions Indication:Hematuria Start:20-Oct-2012 Instruction Type:Provider Instructions for Treatment [facility] Work Phone: reason for referral (narrative)No reason for referral information availableF[facility] Work [facility]: Family History No Family History Records FoundUnknown Family Member Name Dates Details Father Comments:[place], CABG - 74. Status:Active Mother Comments:Breast [place] Status:Active Unknown Family Member Name Dates Details Father Comments:[place], CABG - 74. Status:Active Mother Comments:Breast [place] Status:Active Unknown Family Member Name Dates Details Father Comments:[place], CABG - 74. Status:Active Mother Comments:Breast [place] Status:Active Unknown Family Member Name Dates Details Father Comments:[place], CABG - 74. Status:Active Mother Comments:Breast [place] Status:Active Unknown Family Member Name Dates Details Father Comments:[place], CABG - 74. Status:Active Mother Comments:Breast [place] Status:Active Unknown Family Member Name Dates Details Father Comments:[place], CABG - 74. Status:Active Mother Comments:Breast [place] Status:Active Unknown Family Member Name Dates Details Father Comments:[place], CABG - 74. Status:Active Mother Comments:Breast [place] Status:Active Unknown Family Member Name Dates Details Father Comments:[place], CABG - 74. Status:Active Mother Comments:Breast [place] Status:Active Unknown Family Member Name Dates Details Father Comments:[place], CABG - 74. Status:Active Mother Comments:Breast [place] Status:Active Unknown Family Member Name Dates Details Father Comments:[place], CABG - 74. Status:Active Mother Comments:Breast [place] Status:Active Unknown Family Member Name Dates Details Father Comments:[place], CABG - 74. Status:Active Mother Comments:Breast [place] Status:Active Unknown Family Member Name Dates Details Father Comments:[place], CABG - 74. Status:Active Mother Comments:Breast [place] Status:Active Unknown Family Member Name Dates Details Father Comments:[place], CABG - 74. Status:Active Mother Comments:Breast [place] Status:Active Unknown Family Member Name Dates Details Father Comments:[place], CABG - 74. Status:Active Mother Comments:Breast [place] Status:Active Unknown Family Member Name Dates Details Father Comments:[place], CABG - 74. Status:Active Mother Comments:Breast [place] Status:Active Unknown Family Member Name Dates Details Father Comments:[place], CABG - 74. Status:Active Mother Comments:Breast [place] Status:Active Unknown Family Member Name Dates Details Father Comments:[place], CABG - 74. Status:Active Mother Comments:Breast [place] Status:Active Unknown Family Member Name Dates Details Father Comments:[place], CABG - 74. Status:Active Mother Comments:Breast [place] Status:Active Unknown Family Member Name Dates Details Father Comments:[place], CABG - 74. Status:Active Mother Comments:Breast [place] Status:Active Unknown Family Member Name Dates Details Father Comments:[place], CABG - 74. Status:Active Mother Comments:Breast [place] Status:Active Unknown Family Member Name Dates Details Father Comments:[place], CABG - 74. Status:Active Mother Comments:Breast [place] Status:Active Unknown Family Member Name Dates Details Father Comments:[place], CABG - 74. Status:Active Mother Comments:Breast [place] Status:Active Unknown Family Member Name Dates Details Father Comments:[place], CABG - 74. Status:Active Mother Comments:Breast [place] Status:Active Unknown Family Member Name Dates Details Father Comments:[place], CABG - 74. Status:Active Mother Comments:Breast [place] Status:Active Unknown Family Member Name Dates Details Father Comments:[place], CABG - 74. Status:Active Mother Comments:Breast [place] Status:Active Unknown Family Member Name Dates Details Father Comments:[place], CABG - 74. Status:Active Mother Comments:Breast [place] Status:Active Unknown Family Member Name Dates Details Father Comments:[place], CABG - 74. Status:Active Mother Comments:Breast [place] Status:Active Unknown Family Member Name Dates Details Father Comments:[place], CABG - 74. Status:Active Mother Comments:Breast [place] Status:Active Unknown Family Member Name Dates Details Father Comments:[place], CABG - 74. Status:Active Mother Comments:Breast [place] Status:Active Unknown Family Member Name Dates Details Father Comments:[place], CABG - 74. Status:Active Mother Comments:Breast [place] Status:Active Unknown Family Member Name Dates Details Father Comments:[place], CABG - 74. Status:Active Mother Comments:Breast [place] Status:Active Unknown Family Member Name Dates Details Father Comments:[place], CABG - 74. Status:Active Mother Comments:Breast [place] Status:Active Unknown Family Member Name Dates Details Father Comments:[place], CABG - 74. Status:Active Mother Comments:Breast [place] Status:Active Relationship Condition Age at Onset Recorded Date/T logan mother Malignant neoplasm of breast Unknown father Cardiac disease Unknown daughter Disorder of thyroid Unknown Unknown Family Member Name Dates Details Father Comments:[place], CABG - 74. Status:Active Mother Comments:Breast [place] Status:Active Unknown Family Member Name Dates Details Father Comments:[place], CABG - 74. Status:Active Mother Comments:Breast [place] Status:Active Unknown Family Member Name Dates Details Father Comments:[place], CABG - 74. Status:Active Mother Comments:Breast [place] Status:Active Unknown Family Member Name Dates Details Father Comments:[place], CABG - 74. Status:Active Mother Comments:Breast [place] Status:Active Unknown Family Member Name Dates Details Father Comments:[place], CABG - 74. Status:Active Mother Comments:Breast [place] Status:Active Unknown Family Member Name Dates Details Father Comments:[place], CABG - 74. Status:Active Mother Comments:Breast [place] Status:Active Unknown Family Member Name Dates Details Father Comments:[place], CABG - 74. Status:Active Mother Comments:Breast [place] Status:Active Unknown Family Member Name Dates Details Father Comments:[place], CABG - 74. Status:Active Mother Comments:Breast [place] Status:Active Unknown Family Member Name Dates Details Father Comments:[place], CABG - 74. Status:Active Mother Comments:Breast [place] Status:Active Unknown Family Member Name Dates Details Father Comments:[place], CABG - 74. Status:Active Mother Comments:Breast [place] Status:Active Unknown Family Member Name Dates Details Father Comments:[place], CABG - 74. Status:Active Mother Comments:Breast [place] Status:Active Unknown Family Member Name Dates Details Father Comments:[place], CABG - 74. Status:Active Mother Comments:Breast [place] Status:Active Unknown Family Member Name Dates Details Father Comments:[place], CABG - 74. Status:Active Mother Comments:Breast [place] Status:Active Instructions Name Dates Details Nonsmoker : How to access he alth information online Indication:Nonsmoker Nonsmoker : How to access he alth information online - Detail Indication:Nonsmoker Back pain, acute : Patient I nstructions Indication:Back pain, acute Impaired fasting glucose : H ow to access health information online Indication:Impaired fasting glucose Impaired fasting glucose : H ow to access health information online - Detail Indication:Impaired fasting glucose Impaired fasting glucose : P atient Instructions Indication:Impaired fasting glucose Torticollis : Patient Instru ctions Indication:Torticollis Hypercholesteremia : How to access health information online Indication:Hypercholesteremia Hypercholesteremia : How to access health information online - Detail Indication:Hypercholesteremia Hypercholesteremia : Patient Instructions Indication:Hypercholesteremia Fever and chills : Patient I nstructions Indication:Fever and chills Gallstones : Patient Instruc tions Indication:Gallstones Hematuria : Patient Instruct ions Indication:Hematuria Name Dates Details Nonsmoker : How to access he alth information online Indication:Nonsmoker Nonsmoker : How to access he alth information online - Detail Indication:Nonsmoker Back pain, acute : Patient I nstructions Indication:Back pain, acute Impaired fasting glucose : H ow to access health information online Indication:Impaired fasting glucose Impaired fasting glucose : H ow to access health information online - Detail Indication:Impaired fasting glucose Impaired fasting glucose : P atient Instructions Indication:Impaired fasting glucose Torticollis : Patient Instru ctions Indication:Torticollis Hypercholesteremia : How to access health information online Indication:Hypercholesteremia Hypercholesteremia : How to access health information online - Detail Indication:Hypercholesteremia Hypercholesteremia : Patient Instructions Indication:Hypercholesteremia Fever and chills : Patient I nstructions Indication:Fever and chills Gallstones : Patient Instruc tions Indication:Gallstones Hematuria : Patient Instruct ions Indication:Hematuria Name Dates Details Nonsmoker : How to access he alth information online Indication:Nonsmoker Nonsmoker : How to access he alth information online - Detail Indication:Nonsmoker Nonsmoker : Patient Instruct ions Indication:Nonsmoker Back pain, acute : Patient I nstructions Indication:Back pain, acute Impaired fasting glucose : H ow to access health information online Indication:Impaired fasting glucose Impaired fasting glucose : H ow to access health information online - Detail Indication:Impaired fasting glucose Impaired fasting glucose : P atient Instructions Indication:Impaired fasting glucose Torticollis : Patient Instru ctions Indication:Torticollis Hypercholesteremia : How to access health information online Indication:Hypercholesteremia Hypercholesteremia : How to access health information online - Detail Indication:Hypercholesteremia Hypercholesteremia : Patient Instructions Indication:Hypercholesteremia Fever and chills : Patient I nstructions Indication:Fever and chills Gallstones : Patient Instruc tions Indication:Gallstones Hematuria : Patient Instruct ions Indication:Hematuria Name Dates Details Nonsmoker : How to access he alth information online Indication:Nonsmoker Nonsmoker : How to access he alth information online - Detail Indication:Nonsmoker Nonsmoker : Patient Instruct ions Indication:Nonsmoker Back pain, acute : Patient I nstructions Indication:Back pain, acute Impaired fasting glucose : H ow to access health information online Indication:Impaired fasting glucose Impaired fasting glucose : H ow to access health information online - Detail Indication:Impaired fasting glucose Impaired fasting glucose : P atient Instructions Indication:Impaired fasting glucose Torticollis : Patient Instru ctions Indication:Torticollis Hypercholesteremia : How to access health information online Indication:Hypercholesteremia Hypercholesteremia : How to access health information online - Detail Indication:Hypercholesteremia Hypercholesteremia : Patient Instructions Indication:Hypercholesteremia Fever and chills : Patient I nstructions Indication:Fever and chills Gallstones : Patient Instruc tions Indication:Gallstones Hematuria : Patient Instruct ions Indication:Hematuria Name Dates Details How to access health informa tion online Indication:Smoker Start:30-Nov-2018 Instruction Type:Patient Education How to access health informa tion online - Detail Indication:Smoker Start:30-Nov-2018 Instruction Type:Patient Education Patient Instructions Indication:Smoker Start:30-Nov-2018 Instruction Type:Provider Instructions for Treatment How to access health informa tion online Indication:Nonsmoker Start:26-Oct-2018 Instruction Type:Patient Education How to access health informa tion online - Detail Indication:Nonsmoker Start:26-Oct-2018 Instruction Type:Patient Education Patient Instructions Indication:Nonsmoker Start:26-Oct-2018 Instruction Type:Provider Instructions for Treatment How to access health informa tion online Indication:Nonsmoker Start:14-Nov-2017 Instruction Type:Patient Education How to access health informa tion online - Detail Indication:Nonsmoker Start:14-Nov-2017 Instruction Type:Patient Education Patient Instructions Indication:Back pain, acute Start:14-Nov-2017 Instruction Type:Provider Instructions for Treatment How to access health informa tion online Indication:Impaired fasting glucose Start:05-Oct-2017 Instruction Type:Patient Education How to access health informa tion online - Detail Indication:Impaired fasting glucose Start:05-Oct-2017 Instruction Type:Patient Education Patient Instructions Indication:Impaired fasting glucose Start:05-Oct-2017 Instruction Type:Provider Instructions for Treatment How to access health informa tion online Indication:Impaired fasting glucose Start:24-Nov-2016 Instruction Type:Patient Education How to access health informa tion online - Detail Indication:Impaired fasting glucose Start:24-Nov-2016 Instruction Type:Patient Education Patient Instructions Indication:Impaired fasting glucose Start:24-Nov-2016 Instruction Type:Provider Instructions for Treatment How to access health informa tion online Indication:Impaired fasting glucose Start:21-Jul-2016 Instruction Type:Patient Education How to access health informa tion online - Detail Indication:Impaired fasting glucose Start:21-Jul-2016 Instruction Type:Patient Education Patient Instructions Indication:Impaired fasting glucose Start:21-Jul-2016 Instruction Type:Provider Instructions for Treatment Patient Instructions Indication:Torticollis Start:19-Mar-2016 Instruction Type:Provider Instructions for Treatment How to access health [employer] online Indication:Hypercholesteremia Start:19-Mar-2016 Instruction Type:Patient Education How to access health informa tion online - Detail Indication:Hypercholesteremia Start:19-Mar-2016 Instruction Type:Patient Education Patient Instructions Indication:Hypercholesteremia Start:19-Mar-2016 Instruction Type:Provider Instructions for Treatment How to access health informa [employer] online Indication:Hypercholesteremia Start:25-Aug-2015 Instruction Type:Patient Education How to access health informa tion online - Detail Indication:Hypercholesteremia Start:25-Aug-2015 Instruction Type:Patient Education Patient Instructions Indication:Hypercholesteremia Start:25-Aug-2015 Instruction Type:Provider Instructions for Treatment Patient Instructions Indication:Fever and chills Start:01-Oct-2014 Instruction Type:Provider Instructions for Treatment How to access [employer] online Indication:Impaired fasting glucose Start:02-Sep-2014 Instruction Type:Patient Education How to access health informa tion online - Detail Indication:Impaired fasting glucose Start:02-Sep-2014 Instruction Type:Patient Education Patient Instructions Indication:Impaired fasting glucose Start:02-Sep-2014 Instruction Type:Provider Instructions for Treatment Patient Instructions Indication:Impaired fasting glucose Start:08-Oct-2013 Instruction Type:Provider Instructions for Treatment Patient Instructions Indication:Hypercholesteremia Start:01-Jan-2013 Instruction Type:Provider Instructions for Treatment Patient Instructions Indication:Gallstones Start:31-Oct-2012 Instruction Type:Provider Instructions for Treatment Patient Instructions Indication:Hematuria Start:20-Oct-2012 Instruction Type:Provider Instructions for Treatment Name Dates Details How to access health [place] online Indication:Tobacco use Start:14-Dec-2018 Instruction Type:Patient Education How to access health informa tion online - Detail Indication:Tobacco use Start:14-Dec-2018 Instruction Type:Patient Education Patient Instructions Indication:Tobacco use Start:14-Dec-2018 Instruction Type:Provider Instructions for Treatment How to access health informa tion online Indication:Smoker Start:30-Nov-2018 Instruction Type:Patient Education How to access health informa tion online - Detail Indication:Smoker Start:30-Nov-2018 Instruction Type:Patient Education Patient Instructions Indication:Smoker Start:30-Nov-2018 Instruction Type:Provider Instructions for Treatment How to access health informa tion online Indication:Nonsmoker Start:26-Oct-2018 Instruction Type:Patient Education How to access health informa tion online - Detail Indication:Nonsmoker Start:26-Oct-2018 Instruction Type:Patient Education Patient Instructions Indication:Nonsmoker Start:26-Oct-2018 Instruction Type:Provider Instructions for Treatment How to access health informa tion online Indication:Nonsmoker Start:14-Nov-2017 Instruction Type:Patient Education How to access health informa tion online - Detail Indication:Nonsmoker Start:14-Nov-2017 Instruction Type:Patient Education Patient Instructions Indication:Back pain, acute Start:14-Nov-2017 Instruction Type:Provider Instructions for Treatment How to access health informa tion online Indication:Impaired fasting glucose Start:05-Oct-2017 Instruction Type:Patient Education How to access health informa tion online - Detail Indication:Impaired fasting glucose Start:05-Oct-2017 Instruction Type:Patient Education Patient Instructions Indication:Impaired fasting glucose Start:05-Oct-2017 Instruction Type:Provider Instructions for Treatment How to access health informa tion online Indication:Impaired fasting glucose Start:24-Nov-2016 Instruction Type:Patient Education How to access health informa tion online - Detail Indication:Impaired fasting glucose Start:24-Nov-2016 Instruction Type:Patient Education Patient Instructions Indication:Impaired fasting glucose Start:24-Nov-2016 Instruction Type:Provider Instructions for Treatment How to access health informa tion online Indication:Impaired fasting glucose Start:21-Jul-2016 Instruction Type:Patient Education How to access health informa tion online - Detail Indication:Impaired fasting glucose Start:21-Jul-2016 Instruction Type:Patient Education Patient Instructions Indication:Impaired fasting glucose Start:21-Jul-2016 Instruction Type:Provider Instructions for Treatment Patient Instructions Indication:Torticollis Start:19-Mar-2016 Instruction Type:Provider Instructions for Treatment How to access health informa tion online Indication:Hypercholesteremia Start:19-Mar-2016 Instruction Type:Patient Education How to access health informa tion online - Detail Indication:Hypercholesteremia Start:19-Mar-2016 Instruction Type:Patient Education Patient Instructions Indication:Hypercholesteremia Start:19-Mar-2016 Instruction Type:Provider Instructions for Treatment How to access health informa tion online Indication:Hypercholesteremia Start:25-Aug-2015 Instruction Type:Patient Education How to access health informa tion online - Detail Indication:Hypercholesteremia Start:25-Aug-2015 Instruction Type:Patient Education Patient Instructions Indication:Hypercholesteremia Start:25-Aug-2015 Instruction Type:Provider Instructions for Treatment Patient Instructions Indication:Fever and chills Start:01-Oct-2014 Instruction Type:Provider Instructions for Treatment How to access health informa [employer] online Indication:Impaired fasting glucose Start:02-Sep-2014 Instruction Type:Patient Education How to access health informa tion online - Detail Indication:Impaired fasting glucose Start:02-Sep-2014 Instruction Type:Patient Education Patient Instructions Indication:Impaired fasting glucose Start:02-Sep-2014 Instruction Type:Provider Instructions for Treatment Patient Instructions Indication:Impaired fasting glucose Start:08-Oct-2013 Instruction Type:Provider Instructions for Treatment Patient Instructions Indication:Hypercholesteremia Start:01-Jan-2013 Instruction Type:Provider Instructions for Treatment Patient Instructions Indication:Gallstones Start:31-Oct-2012 Instruction Type:Provider Instructions for Treatment Patient Instructions Indication:Hematuria Start:20-Oct-2012 Instruction Type:Provider Instructions for Treatment Name Dates Details How to access health informa tion online Indication:Tobacco use Start:14-Dec-2018 Instruction Type:Patient Education How to access health informa tion online - Detail Indication:Tobacco use Start:14-Dec-2018 Instruction Type:Patient Education Patient Instructions Indication:Tobacco use Start:14-Dec-2018 Instruction Type:Provider Instructions for Treatment How to access health informa [employer] online Indication:Smoker Start:30-Nov-2018 Instruction Type:Patient Education How to access health informa tion online - Detail Indication:Smoker Start:30-Nov-2018 Instruction Type:Patient Education Patient Instructions Indication:Smoker Start:30-Nov-2018 Instruction Type:Provider Instructions for Treatment How to access health informa tion online Indication:Nonsmoker Start:26-Oct-2018 Instruction Type:Patient Education How to access health informa tion online - Detail Indication:Nonsmoker Start:26-Oct-2018 Instruction Type:Patient Education Patient Instructions Indication:Nonsmoker Start:26-Oct-2018 Instruction Type:Provider Instructions for Treatment How to access health informa tion online Indication:Nonsmoker Start:14-Nov-2017 Instruction Type:Patient Education How to access health informa tion online - Detail Indication:Nonsmoker Start:14-Nov-2017 Instruction Type:Patient Education Patient Instructions Indication:Back pain, acute Start:14-Nov-2017 Instruction Type:Provider Instructions for Treatment How to access health informa tion online Indication:Impaired fasting glucose Start:05-Oct-2017 Instruction Type:Patient Education How to access health informa tion online - Detail Indication:Impaired fasting glucose Start:05-Oct-2017 Instruction Type:Patient Education Patient Instructions Indication:Impaired fasting glucose Start:05-Oct-2017 Instruction Type:Provider Instructions for Treatment How to access health informa tion online Indication:Impaired fasting glucose Start:24-Nov-2016 Instruction Type:Patient Education How to access health informa tion online - Detail Indication:Impaired fasting glucose Start:24-Nov-2016 Instruction Type:Patient Education Patient Instructions Indication:Impaired fasting glucose Start:24-Nov-2016 Instruction Type:Provider Instructions for Treatment How to access health informa tion online Indication:Impaired fasting glucose Start:21-Jul-2016 Instruction Type:Patient Education How to access health informa tion online - Detail Indication:Impaired fasting glucose Start:21-Jul-2016 Instruction Type:Patient Education Patient Instructions Indication:Impaired fasting glucose Start:21-Jul-2016 Instruction Type:Provider Instructions for Treatment Patient Instructions Indication:Torticollis Start:19-Mar-2016 Instruction Type:Provider Instructions for Treatment How to access health informa tion online Indication:Hypercholesteremia Start:19-Mar-2016 Instruction Type:Patient Education How to access health informa tion online - Detail Indication:Hypercholesteremia Start:19-Mar-2016 Instruction Type:Patient Education Patient Instructions Indication:Hypercholesteremia Start:19-Mar-2016 Instruction Type:Provider Instructions for Treatment How to access health informa tion online Indication:Hypercholesteremia Start:25-Aug-2015 Instruction Type:Patient Education How to access health informa tion online - Detail Indication:Hypercholesteremia Start:25-Aug-2015 Instruction Type:Patient Education Patient Instructions Indication:Hypercholesteremia Start:25-Aug-2015 Instruction Type:Provider Instructions for Treatment Patient Instructions Indication:Fever and chills Start:01-Oct-2014 Instruction Type:Provider Instructions for Treatment How to access health informa tion online Indication:Impaired fasting glucose Start:02-Sep-2014 Instruction Type:Patient Education How to access health informa tion online - Detail Indication:Impaired fasting glucose Start:02-Sep-2014 Instruction Type:Patient Education Patient Instructions Indication:Impaired fasting glucose Start:02-Sep-2014 Instruction Type:Provider Instructions for Treatment Patient Instructions Indication:Impaired fasting glucose Start:08-Oct-2013 Instruction Type:Provider Instructions for Treatment Patient Instructions Indication:Hypercholesteremia Start:01-Jan-2013 Instruction Type:Provider Instructions for Treatment Patient Instructions Indication:Gallstones Start:31-Oct-2012 Instruction Type:Provider Instructions for Treatment Patient Instructions Indication:Hematuria Start:20-Oct-2012 Instruction Type:Provider Instructions for Treatment Name Dates Details Patient Instructions Indication:Hypercholesteremia Start:02-Feb-2019 Instruction Type:Provider Instructions for Treatment How to access health informa tion online Indication:Smoker Start:02-Feb-2019 Instruction Type:Patient Education How to access health informa tion online - Detail Indication:Smoker Start:02-Feb-2019 Instruction Type:Patient Education How to access health informa tion online Indication:Tobacco use Start:14-Dec-2018 Instruction Type:Patient Education How to access health informa tion online - Detail Indication:Tobacco use Start:14-Dec-2018 Instruction Type:Patient Education Patient Instructions Indication:Tobacco use Start:14-Dec-2018 Instruction Type:Provider Instructions for Treatment How to access health informa tion online Indication:Smoker Start:30-Nov-2018 Instruction Type:Patient Education How to access health informa tion online - Detail Indication:Smoker Start:30-Nov-2018 Instruction Type:Patient Education Patient Instructions Indication:Smoker Start:30-Nov-2018 Instruction Type:Provider Instructions for Treatment How to access health informa tion online Indication:Nonsmoker Start:26-Oct-2018 Instruction Type:Patient Education How to access health informa tion online - Detail Indication:Nonsmoker Start:26-Oct-2018 Instruction Type:Patient Education Patient Instructions Indication:Nonsmoker Start:26-Oct-2018 Instruction Type:Provider Instructions for Treatment How to access health informa tion online Indication:Nonsmoker Start:14-Nov-2017 Instruction Type:Patient Education How to access health informa tion online - Detail Indication:Nonsmoker Start:14-Nov-2017 Instruction Type:Patient Education Patient Instructions Indication:Back pain, acute Start:14-Nov-2017 Instruction Type:Provider Instructions for Treatment How to access health informa tion online Indication:Impaired fasting glucose Start:05-Oct-2017 Instruction Type:Patient Education How to access health informa tion online - Detail Indication:Impaired fasting glucose Start:05-Oct-2017 Instruction Type:Patient Education Patient Instructions Indication:Impaired fasting glucose Start:05-Oct-2017 Instruction Type:Provider Instructions for Treatment How to access health informa tion online Indication:Impaired fasting glucose Start:24-Nov-2016 Instruction Type:Patient Education How to access health informa tion online - Detail Indication:Impaired fasting glucose Start:24-Nov-2016 Instruction Type:Patient Education Patient Instructions Indication:Impaired fasting glucose Start:24-Nov-2016 Instruction Type:Provider Instructions for Treatment How to access health informa tion online Indication:Impaired fasting glucose Start:21-Jul-2016 Instruction Type:Patient Education How to access health informa tion online - Detail Indication:Impaired fasting glucose Start:21-Jul-2016 Instruction Type:Patient Education Patient Instructions Indication:Impaired fasting glucose Start:21-Jul-2016 Instruction Type:Provider Instructions for Treatment Patient Instructions Indication:Torticollis Start:19-Mar-2016 Instruction Type:Provider Instructions for Treatment How to access health informa tion online Indication:Hypercholesteremia Start:19-Mar-2016 Instruction Type:Patient Education How to access health informa tion online - Detail Indication:Hypercholesteremia Start:19-Mar-2016 Instruction Type:Patient Education Patient Instructions Indication:Hypercholesteremia Start:19-Mar-2016 Instruction Type:Provider Instructions for Treatment How to access health informa tion online Indication:Hypercholesteremia Start:25-Aug-2015 Instruction Type:Patient Education How to access health informa tion online - Detail Indication:Hypercholesteremia Start:25-Aug-2015 Instruction Type:Patient Education Patient Instructions Indication:Hypercholesteremia Start:25-Aug-2015 Instruction Type:Provider Instructions for Treatment Patient Instructions Indication:Fever and chills Start:01-Oct-2014 Instruction Type:Provider Instructions for Treatment How to access health informa tion online Indication:Impaired fasting glucose Start:02-Sep-2014 Instruction Type:Patient Education How to access health informa tion online - Detail Indication:Impaired fasting glucose Start:02-Sep-2014 Instruction Type:Patient Education Patient Instructions Indication:Impaired fasting glucose Start:02-Sep-2014 Instruction Type:Provider Instructions for Treatment Patient Instructions Indication:Impaired fasting glucose Start:08-Oct-2013 Instruction Type:Provider Instructions for Treatment Patient Instructions Indication:Hypercholesteremia Start:01-Jan-2013 Instruction Type:Provider Instructions for Treatment Patient Instructions Indication:Gallstones Start:31-Oct-2012 Instruction Type:Provider Instructions for Treatment Patient Instructions Indication:Hematuria Start:20-Oct-2012 Instruction Type:Provider Instructions for Treatment Name Dates Details How to access health informa tion online Indication:Impaired fasting glucose Start:29-Mar-2019 Instruction Type:Patient Education How to access health informa tion online - Detail Indication:Impaired fasting glucose Start:29-Mar-2019 Instruction Type:Patient Education Patient Instructions Indication:Impaired fasting glucose Start:29-Mar-2019 Instruction Type:Provider Instructions for Treatment Patient Instructions Indication:Hypercholesteremia Start:02-Feb-2019 Instruction Type:Provider Instructions for Treatment How to access health informa tion online Indication:Smoker Start:02-Feb-2019 Instruction Type:Patient Education How to access health informa tion online - Detail Indication:Smoker Start:02-Feb-2019 Instruction Type:Patient Education How to access health informa tion online Indication:Tobacco use Start:14-Dec-2018 Instruction Type:Patient Education How to access health informa tion online - Detail Indication:Tobacco use Start:14-Dec-2018 Instruction Type:Patient Education Patient Instructions Indication:Tobacco use Start:14-Dec-2018 Instruction Type:Provider Instructions for Treatment How to access health informa tion online Indication:Smoker Start:30-Nov-2018 Instruction Type:Patient Education How to access health informa tion online - Detail Indication:Smoker Start:30-Nov-2018 Instruction Type:Patient Education Patient Instructions Indication:Smoker Start:30-Nov-2018 Instruction Type:Provider Instructions for Treatment How to access health informa tion online Indication:Nonsmoker Start:26-Oct-2018 Instruction Type:Patient Education How to access health informa tion online - Detail Indication:Nonsmoker Start:26-Oct-2018 Instruction Type:Patient Education Patient Instructions Indication:Nonsmoker Start:26-Oct-2018 Instruction Type:Provider Instructions for Treatment How to access health informa tion online Indication:Nonsmoker Start:14-Nov-2017 Instruction Type:Patient Education How to access health informa tion online - Detail Indication:Nonsmoker Start:14-Nov-2017 Instruction Type:Patient Education Patient Instructions Indication:Back pain, acute Start:14-Nov-2017 Instruction Type:Provider Instructions for Treatment How to access health informa tion online Indication:Impaired fasting glucose Start:05-Oct-2017 Instruction Type:Patient Education How to access health informa tion online - Detail Indication:Impaired fasting glucose Start:05-Oct-2017 Instruction Type:Patient Education Patient Instructions Indication:Impaired fasting glucose Start:05-Oct-2017 Instruction Type:Provider Instructions for Treatment How to access health informa tion online Indication:Impaired fasting glucose Start:24-Nov-2016 Instruction Type:Patient Education How to access health informa tion online - Detail Indication:Impaired fasting glucose Start:24-Nov-2016 Instruction Type:Patient Education Patient Instructions Indication:Impaired fasting glucose Start:24-Nov-2016 Instruction Type:Provider Instructions for Treatment How to access health informa tion online Indication:Impaired fasting glucose Start:21-Jul-2016 Instruction Type:Patient Education How to access health informa tion online - Detail Indication:Impaired fasting glucose Start:21-Jul-2016 Instruction Type:Patient Education Patient Instructions Indication:Impaired fasting glucose Start:21-Jul-2016 Instruction Type:Provider Instructions for Treatment Patient Instructions Indication:Torticollis Start:19-Mar-2016 Instruction Type:Provider Instructions for Treatment How to access health informa tion online Indication:Hypercholesteremia Start:19-Mar-2016 Instruction Type:Patient Education How to access health informa tion online - Detail Indication:Hypercholesteremia Start:19-Mar-2016 Instruction Type:Patient Education Patient Instructions Indication:Hypercholesteremia Start:19-Mar-2016 Instruction Type:Provider Instructions for Treatment How to access health informa tion online Indication:Hypercholesteremia Start:25-Aug-2015 Instruction Type:Patient Education How to access health informa tion online - Detail Indication:Hypercholesteremia Start:25-Aug-2015 Instruction Type:Patient Education Patient Instructions Indication:Hypercholesteremia Start:25-Aug-2015 Instruction Type:Provider Instructions for Treatment Patient Instructions Indication:Fever and chills Start:01-Oct-2014 Instruction Type:Provider Instructions for Treatment How to access health informa tion online Indication:Impaired fasting glucose Start:02-Sep-2014 Instruction Type:Patient Education How to access health informa tion online - Detail Indication:Impaired fasting glucose Start:02-Sep-2014 Instruction Type:Patient Education Patient Instructions Indication:Impaired fasting glucose Start:02-Sep-2014 Instruction Type:Provider Instructions for Treatment Patient Instructions Indication:Impaired fasting glucose Start:08-Oct-2013 Instruction Type:Provider Instructions for Treatment Patient Instructions Indication:Hypercholesteremia Start:01-Jan-2013 Instruction Type:Provider Instructions for Treatment Patient Instructions Indication:Gallstones Start:31-Oct-2012 Instruction Type:Provider Instructions for Treatment Patient Instructions Indication:Hematuria Start:20-Oct-2012 Instruction Type:Provider Instructions for Treatment Name Dates Details How to access health informa tion online Indication:Impaired fasting glucose Start:29-Mar-2019 Instruction Type:Patient Education How to access health informa tion online - Detail Indication:Impaired fasting glucose Start:29-Mar-2019 Instruction Type:Patient Education Patient Instructions Indication:Impaired fasting glucose Start:29-Mar-2019 Instruction Type:Provider Instructions for Treatment Patient Instructions Indication:Hypercholesteremia Start:02-Feb-2019 Instruction Type:Provider Instructions for Treatment How to access health informa tion online Indication:Smoker Start:02-Feb-2019 Instruction Type:Patient Education How to access health informa tion online - Detail Indication:Smoker Start:02-Feb-2019 Instruction Type:Patient Education How to access health informa tion online Indication:Tobacco use Start:14-Dec-2018 Instruction Type:Patient Education How to access health informa tion online - Detail Indication:Tobacco use Start:14-Dec-2018 Instruction Type:Patient Education Patient Instructions Indication:Tobacco use Start:14-Dec-2018 Instruction Type:Provider Instructions for Treatment How to access health informa tion online Indication:Smoker Start:30-Nov-2018 Instruction Type:Patient Education How to access health informa tion online - Detail Indication:Smoker Start:30-Nov-2018 Instruction Type:Patient Education Patient Instructions Indication:Smoker Start:30-Nov-2018 Instruction Type:Provider Instructions for Treatment How to access health informa tion online Indication:Nonsmoker Start:26-Oct-2018 Instruction Type:Patient Education How to access health informa tion online - Detail Indication:Nonsmoker Start:26-Oct-2018 Instruction Type:Patient Education Patient Instructions Indication:Nonsmoker Start:26-Oct-2018 Instruction Type:Provider Instructions for Treatment How to access health informa tion online Indication:Nonsmoker Start:14-Nov-2017 Instruction Type:Patient Education How to access health informa tion online - Detail Indication:Nonsmoker Start:14-Nov-2017 Instruction Type:Patient Education Patient Instructions Indication:Back pain, acute Start:14-Nov-2017 Instruction Type:Provider Instructions for Treatment How to access health informa tion online Indication:Impaired fasting glucose Start:05-Oct-2017 Instruction Type:Patient Education How to access health informa tion online - Detail Indication:Impaired fasting glucose Start:05-Oct-2017 Instruction Type:Patient Education Patient Instructions Indication:Impaired fasting glucose Start:05-Oct-2017 Instruction Type:Provider Instructions for Treatment How to access health informa tion online Indication:Impaired fasting glucose Start:24-Nov-2016 Instruction Type:Patient Education How to access health informa tion online - Detail Indication:Impaired fasting glucose Start:24-Nov-2016 Instruction Type:Patient Education Patient Instructions Indication:Impaired fasting glucose Start:24-Nov-2016 Instruction Type:Provider Instructions for Treatment How to access health informa tion online Indication:Impaired fasting glucose Start:21-Jul-2016 Instruction Type:Patient Education How to access health informa tion online - Detail Indication:Impaired fasting glucose Start:21-Jul-2016 Instruction Type:Patient Education Patient Instructions Indication:Impaired fasting glucose Start:21-Jul-2016 Instruction Type:Provider Instructions for Treatment Patient Instructions Indication:Torticollis Start:19-Mar-2016 Instruction Type:Provider Instructions for Treatment How to access health informa tion online Indication:Hypercholesteremia Start:19-Mar-2016 Instruction Type:Patient Education How to access health informa tion online - Detail Indication:Hypercholesteremia Start:19-Mar-2016 Instruction Type:Patient Education Patient Instructions Indication:Hypercholesteremia Start:19-Mar-2016 Instruction Type:Provider Instructions for Treatment How to access health informa tion online Indication:Hypercholesteremia Start:25-Aug-2015 Instruction Type:Patient Education How to access health informa tion online - Detail Indication:Hypercholesteremia Start:25-Aug-2015 Instruction Type:Patient Education Patient Instructions Indication:Hypercholesteremia Start:25-Aug-2015 Instruction Type:Provider Instructions for Treatment Patient Instructions Indication:Fever and chills Start:01-Oct-2014 Instruction Type:Provider Instructions for Treatment How to access health informa tion online Indication:Impaired fasting glucose Start:02-Sep-2014 Instruction Type:Patient Education How to access health informa tion online - Detail Indication:Impaired fasting glucose Start:02-Sep-2014 Instruction Type:Patient Education Patient Instructions Indication:Impaired fasting glucose Start:02-Sep-2014 Instruction Type:Provider Instructions for Treatment Patient Instructions Indication:Impaired fasting glucose Start:08-Oct-2013 Instruction Type:Provider Instructions for Treatment Patient Instructions Indication:Hypercholesteremia Start:01-Jan-2013 Instruction Type:Provider Instructions for Treatment Patient Instructions Indication:Gallstones Start:31-Oct-2012 Instruction Type:Provider Instructions for Treatment Patient Instructions Indication:Hematuria Start:20-Oct-2012 Instruction Type:Provider Instructions for Treatment Name Dates Details How to access health informa tion online Indication:BMI 24.0-24.9, adult Start:28-Jan-2020 Instruction Type:Patient Education How to access health informa tion online - Detail Indication:BMI 24.0-24.9, adult Start:28-Jan-2020 Instruction Type:Patient Education Patient Instructions Indication:BMI 24.0-24.9, adult Start:28-Jan-2020 Instruction Type:Provider Instructions for Treatment How to access health informa tion online Indication:BMI 23.0-23.9, adult Start:09-Jan-2020 Instruction Type:Patient Education How to access health informa tion online - Detail Indication:BMI 23.0-23.9, adult Start:09-Jan-2020 Instruction Type:Patient Education Patient Instructions Indication:BMI 23.0-23.9, adult Start:09-Jan-2020 Instruction Type:Provider Instructions for Treatment How to access health informa tion online Indication:Tobacco use Start:27-Dec-2019 Instruction Type:Patient Education How to access health informa tion online - Detail Indication:Tobacco use Start:27-Dec-2019 Instruction Type:Patient Education Patient Instructions Indication:Tobacco use Start:27-Dec-2019 Instruction Type:Provider Instructions for Treatment How to access health informa tion online Indication:BMI 23.0-23.9, adult Start:02-Aug-2019 Instruction Type:Patient Education How to access health informa tion online - Detail Indication:BMI 23.0-23.9, adult Start:02-Aug-2019 Instruction Type:Patient Education Patient Instructions Indication:BMI 23.0-23.9, adult Start:02-Aug-2019 Instruction Type:Provider Instructions for Treatment How to access health informa tion online Indication:Impaired fasting glucose Start:29-Mar-2019 Instruction Type:Patient Education How to access health informa tion online - Detail Indication:Impaired fasting glucose Start:29-Mar-2019 Instruction Type:Patient Education Patient Instructions Indication:Impaired fasting glucose Start:29-Mar-2019 Instruction Type:Provider Instructions for Treatment Patient Instructions Indication:Hypercholesteremia Start:02-Feb-2019 Instruction Type:Provider Instructions for Treatment How to access health informa tion online Indication:Smoker Start:02-Feb-2019 Instruction Type:Patient Education How to access health informa tion online - Detail Indication:Smoker Start:02-Feb-2019 Instruction Type:Patient Education How to access health informa tion online Indication:Tobacco use Start:14-Dec-2018 Instruction Type:Patient Education How to access health informa tion online - Detail Indication:Tobacco use Start:14-Dec-2018 Instruction Type:Patient Education Patient Instructions Indication:Tobacco use Start:14-Dec-2018 Instruction Type:Provider Instructions for Treatment How to access health informa tion online Indication:Smoker Start:30-Nov-2018 Instruction Type:Patient Education How to access health informa tion online - Detail Indication:Smoker Start:30-Nov-2018 Instruction Type:Patient Education Patient Instructions Indication:Smoker Start:30-Nov-2018 Instruction Type:Provider Instructions for Treatment How to access health informa tion online Indication:Nonsmoker Start:26-Oct-2018 Instruction Type:Patient Education How to access health informa tion online - Detail Indication:Nonsmoker Start:26-Oct-2018 Instruction Type:Patient Education Patient Instructions Indication:Nonsmoker Start:26-Oct-2018 Instruction Type:Provider Instructions for Treatment How to access health informa tion online Indication:Nonsmoker Start:14-Nov-2017 Instruction Type:Patient Education How to access health informa tion online - Detail Indication:Nonsmoker Start:14-Nov-2017 Instruction Type:Patient Education Patient Instructions Indication:Back pain, acute Start:14-Nov-2017 Instruction Type:Provider Instructions for Treatment How to access health informa tion online Indication:Impaired fasting glucose Start:05-Oct-2017 Instruction Type:Patient Education How to access health informa tion online - Detail Indication:Impaired fasting glucose Start:05-Oct-2017 Instruction Type:Patient Education Patient Instructions Indication:Impaired fasting glucose Start:05-Oct-2017 Instruction Type:Provider Instructions for Treatment How to access health informa tion online Indication:Impaired fasting glucose Start:24-Nov-2016 Instruction Type:Patient Education How to access health informa tion online - Detail Indication:Impaired fasting glucose Start:24-Nov-2016 Instruction Type:Patient Education Patient Instructions Indication:Impaired fasting glucose Start:24-Nov-2016 Instruction Type:Provider Instructions for Treatment How to access health informa tion online Indication:Impaired fasting glucose Start:21-Jul-2016 Instruction Type:Patient Education How to access health informa tion online - Detail Indication:Impaired fasting glucose Start:21-Jul-2016 Instruction Type:Patient Education Patient Instructions Indication:Impaired fasting glucose Start:21-Jul-2016 Instruction Type:Provider Instructions for Treatment Patient Instructions Indication:Torticollis Start:19-Mar-2016 Instruction Type:Provider Instructions for Treatment How to access health informa tion online Indication:Hypercholesteremia Start:19-Mar-2016 Instruction Type:Patient Education How to access health informa tion online - Detail Indication:Hypercholesteremia Start:19-Mar-2016 Instruction Type:Patient Education Patient Instructions Indication:Hypercholesteremia Start:19-Mar-2016 Instruction Type:Provider Instructions for Treatment How to access health informa tion online Indication:Hypercholesteremia Start:25-Aug-2015 Instruction Type:Patient Education How to access health informa tion online - Detail Indication:Hypercholesteremia Start:25-Aug-2015 Instruction Type:Patient Education Patient Instructions Indication:Hypercholesteremia Start:25-Aug-2015 Instruction Type:Provider Instructions for Treatment Patient Instructions Indication:Fever and chills Start:01-Oct-2014 Instruction Type:Provider Instructions for Treatment How to access health informa tion online Indication:Impaired fasting glucose Start:02-Sep-2014 Instruction Type:Patient Education How to access health informa tion online - Detail Indication:Impaired fasting glucose Start:02-Sep-2014 Instruction Type:Patient Education Patient Instructions Indication:Impaired fasting glucose Start:02-Sep-2014 Instruction Type:Provider Instructions for Treatment Patient Instructions Indication:Impaired fasting glucose Start:08-Oct-2013 Instruction Type:Provider Instructions for Treatment Patient Instructions Indication:Hypercholesteremia Start:01-Jan-2013 Instruction Type:Provider Instructions for Treatment Patient Instructions Indication:Gallstones Start:31-Oct-2012 Instruction Type:Provider Instructions for Treatment Patient Instructions Indication:Hematuria Start:20-Oct-2012 Instruction Type:Provider Instructions for Treatment Name Dates Details How to access health informa tion online Indication:BMI 24.0-24.9, adult Start:28-Jan-2020 Instruction Type:Patient Education How to access health informa tion online - Detail Indication:BMI 24.0-24.9, adult Start:28-Jan-2020 Instruction Type:Patient Education Patient Instructions Indication:BMI 24.0-24.9, adult Start:28-Jan-2020 Instruction Type:Provider Instructions for Treatment How to access health informa tion online Indication:BMI 23.0-23.9, adult Start:09-Jan-2020 Instruction Type:Patient Education How to access health informa tion online - Detail Indication:BMI 23.0-23.9, adult Start:09-Jan-2020 Instruction Type:Patient Education Patient Instructions Indication:BMI 23.0-23.9, adult Start:09-Jan-2020 Instruction Type:Provider Instructions for Treatment How to access health informa tion online Indication:Tobacco use Start:27-Dec-2019 Instruction Type:Patient Education How to access health informa tion online - Detail Indication:Tobacco use Start:27-Dec-2019 Instruction Type:Patient Education Patient Instructions Indication:Tobacco use Start:27-Dec-2019 Instruction Type:Provider Instructions for Treatment How to access health informa tion online Indication:BMI 23.0-23.9, adult Start:02-Aug-2019 Instruction Type:Patient Education How to access health informa tion online - Detail Indication:BMI 23.0-23.9, adult Start:02-Aug-2019 Instruction Type:Patient Education Patient Instructions Indication:BMI 23.0-23.9, adult Start:02-Aug-2019 Instruction Type:Provider Instructions for Treatment How to access health informa tion online Indication:Impaired fasting glucose Start:29-Mar-2019 Instruction Type:Patient Education How to access health informa tion online - Detail Indication:Impaired fasting glucose Start:29-Mar-2019 Instruction Type:Patient Education Patient Instructions Indication:Impaired fasting glucose Start:29-Mar-2019 Instruction Type:Provider Instructions for Treatment Patient Instructions Indication:Hypercholesteremia Start:02-Feb-2019 Instruction Type:Provider Instructions for Treatment How to access health informa tion online Indication:Smoker Start:02-Feb-2019 Instruction Type:Patient Education How to access health informa tion online - Detail Indication:Smoker Start:02-Feb-2019 Instruction Type:Patient Education How to access health informa tion online Indication:Tobacco use Start:14-Dec-2018 Instruction Type:Patient Education How to access health informa tion online - Detail Indication:Tobacco use Start:14-Dec-2018 Instruction Type:Patient Education Patient Instructions Indication:Tobacco use Start:14-Dec-2018 Instruction Type:Provider Instructions for Treatment How to access health informa tion online Indication:Smoker Start:30-Nov-2018 Instruction Type:Patient Education How to access health informa tion online - Detail Indication:Smoker Start:30-Nov-2018 Instruction Type:Patient Education Patient Instructions Indication:Smoker Start:30-Nov-2018 Instruction Type:Provider Instructions for Treatment How to access health informa tion online Indication:Nonsmoker Start:26-Oct-2018 Instruction Type:Patient Education How to access health informa tion online - Detail Indication:Nonsmoker Start:26-Oct-2018 Instruction Type:Patient Education Patient Instructions Indication:Nonsmoker Start:26-Oct-2018 Instruction Type:Provider Instructions for Treatment How to access health informa tion online Indication:Nonsmoker Start:14-Nov-2017 Instruction Type:Patient Education How to access health informa tion online - Detail Indication:Nonsmoker Start:14-Nov-2017 Instruction Type:Patient Education Patient Instructions Indication:Back pain, acute Start:14-Nov-2017 Instruction Type:Provider Instructions for Treatment How to access health informa tion online Indication:Impaired fasting glucose Start:05-Oct-2017 Instruction Type:Patient Education How to access health informa tion online - Detail Indication:Impaired fasting glucose Start:05-Oct-2017 Instruction Type:Patient Education Patient Instructions Indication:Impaired fasting glucose Start:05-Oct-2017 Instruction Type:Provider Instructions for Treatment How to access health informa [employer] online Indication:Impaired fasting glucose Start:24-Nov-2016 Instruction Type:Patient Education How to access health informa tion online - Detail Indication:Impaired fasting glucose Start:24-Nov-2016 Instruction Type:Patient Education Patient Instructions Indication:Impaired fasting glucose Start:24-Nov-2016 Instruction Type:Provider Instructions for Treatment How to access health informa [employer] online Indication:Impaired fasting glucose Start:21-Jul-2016 Instruction Type:Patient Education How to access health informa tion online - Detail Indication:Impaired fasting glucose Start:21-Jul-2016 Instruction Type:Patient Education Patient Instructions Indication:Impaired fasting glucose Start:21-Jul-2016 Instruction Type:Provider Instructions for Treatment Patient Instructions Indication:Torticollis Start:19-Mar-2016 Instruction Type:Provider Instructions for Treatment How to access health informa [employer] online Indication:Hypercholesteremia Start:19-Mar-2016 Instruction Type:Patient Education How to access health informa tion online - Detail Indication:Hypercholesteremia Start:19-Mar-2016 Instruction Type:Patient Education Patient Instructions Indication:Hypercholesteremia Start:19-Mar-2016 Instruction Type:Provider Instructions for Treatment How to access health informa [employer] online Indication:Hypercholesteremia Start:25-Aug-2015 Instruction Type:Patient Education How to access health informa tion online - Detail Indication:Hypercholesteremia Start:25-Aug-2015 Instruction Type:Patient Education Patient Instructions Indication:Hypercholesteremia Start:25-Aug-2015 Instruction Type:Provider Instructions for Treatment Patient Instructions Indication:Fever and chills Start:01-Oct-2014 Instruction Type:Provider Instructions for Treatment How to access health informa [employer] online Indication:Impaired fasting glucose Start:02-Sep-2014 Instruction Type:Patient Education How to access health informa [facility] [employer] online - Detail Indication:Impaired fasting glucose Start:02-Sep-2014 Instruction Type:Patient Education Patient Instructions Indication:Impaired fasting glucose Start:02-Sep-2014 Instruction Type:Provider Instructions for Treatment Patient Instructions Indication:Impaired fasting glucose Start:08-Oct-2013 Instruction Type:Provider Instructions for Treatment Patient Instructions Indication:Hypercholesteremia Start:01-Jan-2013 Instruction Type:Provider Instructions for Treatment Patient Instructions Indication:Gallstones Start:31-Oct-2012 Instruction Type:Provider Instructions for Treatment Patient Instructions Indication:Hematuria Start:20-Oct-2012 Instruction Type:Provider Instructions for Treatment Name Dates Details How to access health informa tion online Indication:BMI 24.0-24.9, adult Start:28-Jan-2020 Instruction Type:Patient Education How to access health informa tion online - Detail Indication:BMI 24.0-24.9, adult Start:28-Jan-2020 Instruction Type:Patient Education Patient Instructions Indication:BMI 24.0-24.9, adult Start:28-Jan-2020 Instruction Type:Provider Instructions for Treatment How to access health informa tion online Indication:BMI 23.0-23.9, adult Start:09-Jan-2020 Instruction Type:Patient Education How to access health informa tion online - Detail Indication:BMI 23.0-23.9, adult Start:09-Jan-2020 Instruction Type:Patient Education Patient Instructions Indication:BMI 23.0-23.9, adult Start:09-Jan-2020 Instruction Type:Provider Instructions for Treatment How to access health informa tion online Indication:Tobacco use Start:27-Dec-2019 Instruction Type:Patient Education How to access health informa tion online - Detail Indication:Tobacco use Start:27-Dec-2019 Instruction Type:Patient Education Patient Instructions Indication:Tobacco use Start:27-Dec-2019 Instruction Type:Provider Instructions for Treatment How to access health informa tion online Indication:BMI 23.0-23.9, adult Start:02-Aug-2019 Instruction Type:Patient Education How to access health informa tion online - Detail Indication:BMI 23.0-23.9, adult Start:02-Aug-2019 Instruction Type:Patient Education Patient Instructions Indication:BMI 23.0-23.9, adult Start:02-Aug-2019 Instruction Type:Provider Instructions for Treatment How to access health informa tion online Indication:Impaired fasting glucose Start:29-Mar-2019 Instruction Type:Patient Education How to access health informa tion online - Detail Indication:Impaired fasting glucose Start:29-Mar-2019 Instruction Type:Patient Education Patient Instructions Indication:Impaired fasting glucose Start:29-Mar-2019 Instruction Type:Provider Instructions for Treatment Patient Instructions Indication:Hypercholesteremia Start:02-Feb-2019 Instruction Type:Provider Instructions for Treatment How to access health informa tion online Indication:Smoker Start:02-Feb-2019 Instruction Type:Patient Education How to access health informa tion online - Detail Indication:Smoker Start:02-Feb-2019 Instruction Type:Patient Education How to access health informa tion online Indication:Tobacco use Start:14-Dec-2018 Instruction Type:Patient Education How to access health informa tion online - Detail Indication:Tobacco use Start:14-Dec-2018 Instruction Type:Patient Education Patient Instructions Indication:Tobacco use Start:14-Dec-2018 Instruction Type:Provider Instructions for Treatment How to access health informa tion online Indication:Smoker Start:30-Nov-2018 Instruction Type:Patient Education How to access health informa tion online - Detail Indication:Smoker Start:30-Nov-2018 Instruction Type:Patient Education Patient Instructions Indication:Smoker Start:30-Nov-2018 Instruction Type:Provider Instructions for Treatment How to access health informa tion online Indication:Nonsmoker Start:26-Oct-2018 Instruction Type:Patient Education How to access health informa tion online - Detail Indication:Nonsmoker Start:26-Oct-2018 Instruction Type:Patient Education Patient Instructions Indication:Nonsmoker Start:26-Oct-2018 Instruction Type:Provider Instructions for Treatment How to access health informa tion online Indication:Nonsmoker Start:14-Nov-2017 Instruction Type:Patient Education How to access health informa tion online - Detail Indication:Nonsmoker Start:14-Nov-2017 Instruction Type:Patient Education Patient Instructions Indication:Back pain, acute Start:14-Nov-2017 Instruction Type:Provider Instructions for Treatment How to access health informa tion online Indication:Impaired fasting glucose Start:05-Oct-2017 Instruction Type:Patient Education How to access health informa tion online - Detail Indication:Impaired fasting glucose Start:05-Oct-2017 Instruction Type:Patient Education Patient Instructions Indication:Impaired fasting glucose Start:05-Oct-2017 Instruction Type:Provider Instructions for Treatment How to access health informa tion online Indication:Impaired fasting glucose Start:24-Nov-2016 Instruction Type:Patient Education How to access health informa tion online - Detail Indication:Impaired fasting glucose Start:24-Nov-2016 Instruction Type:Patient Education Patient Instructions Indication:Impaired fasting glucose Start:24-Nov-2016 Instruction Type:Provider Instructions for Treatment How to access health informa tion online Indication:Impaired fasting glucose Start:21-Jul-2016 Instruction Type:Patient Education How to access health informa tion online - Detail Indication:Impaired fasting glucose Start:21-Jul-2016 Instruction Type:Patient Education Patient Instructions Indication:Impaired fasting glucose Start:21-Jul-2016 Instruction Type:Provider Instructions for Treatment Patient Instructions Indication:Torticollis Start:19-Mar-2016 Instruction Type:Provider Instructions for Treatment How to access health informa [employer] online Indication:Hypercholesteremia Start:19-Mar-2016 Instruction Type:Patient Education How to access health informa tion online - Detail Indication:Hypercholesteremia Start:19-Mar-2016 Instruction Type:Patient Education Patient Instructions Indication:Hypercholesteremia Start:19-Mar-2016 Instruction Type:Provider Instructions for Treatment How to access [employer] informa [employer] online Indication:Hypercholesteremia Start:25-Aug-2015 Instruction Type:Patient Education How to access health informa tion online - Detail Indication:Hypercholesteremia Start:25-Aug-2015 Instruction Type:Patient Education Patient Instructions Indication:Hypercholesteremia Start:25-Aug-2015 Instruction Type:Provider Instructions for Treatment Patient Instructions Indication:Fever and chills Start:01-Oct-2014 Instruction Type:Provider Instructions for Treatment How to access [employer] informa [employer] online Indication:Impaired fasting glucose Start:02-Sep-2014 Instruction Type:Patient Education How to access health informa tion online - Detail Indication:Impaired fasting glucose Start:02-Sep-2014 Instruction Type:Patient Education Patient Instructions Indication:Impaired fasting glucose Start:02-Sep-2014 Instruction Type:Provider Instructions for Treatment Patient Instructions Indication:Impaired fasting glucose Start:08-Oct-2013 Instruction Type:Provider Instructions for Treatment Patient Instructions Indication:Hypercholesteremia Start:01-Jan-2013 Instruction Type:Provider Instructions for Treatment Patient Instructions Indication:Gallstones Start:31-Oct-2012 Instruction Type:Provider Instructions for Treatment Patient Instructions Indication:Hematuria Start:20-Oct-2012 Instruction Type:Provider Instructions for Treatment Name Dates Details How to access [employer] online Indication:Smoker Start:30-Apr-2020 Instruction Type:Patient Education How to access [employer] informa [facility] [employer] online - Detail Indication:Need for prophylactic vaccination and inoculation against influenza (Renamed from Need for immunization against influenza) Start:30-Apr-2020 Instruction Type:Patient Education Patient Instructions Indication:Smoker Start:30-Apr-2020 Instruction Type:Provider Instructions for Treatment How to access health informa tion online Indication:BMI 24.0-24.9, adult Start:28-Jan-2020 Instruction Type:Patient Education How to access health informa tion online - Detail Indication:BMI 24.0-24.9, adult Start:28-Jan-2020 Instruction Type:Patient Education Patient Instructions Indication:BMI 24.0-24.9, adult Start:28-Jan-2020 Instruction Type:Provider Instructions for Treatment How to access health informa tion online Indication:BMI 23.0-23.9, adult Start:09-Jan-2020 Instruction Type:Patient Education How to access health informa tion online - Detail Indication:BMI 23.0-23.9, adult Start:09-Jan-2020 Instruction Type:Patient Education Patient Instructions Indication:BMI 23.0-23.9, adult Start:09-Jan-2020 Instruction Type:Provider Instructions for Treatment How to access health informa tion online Indication:Tobacco use Start:27-Dec-2019 Instruction Type:Patient Education How to access health informa tion online - Detail Indication:Tobacco use Start:27-Dec-2019 Instruction Type:Patient Education Patient Instructions Indication:Tobacco use Start:27-Dec-2019 Instruction Type:Provider Instructions for Treatment How to access health informa tion online Indication:BMI 23.0-23.9, adult Start:02-Aug-2019 Instruction Type:Patient Education How to access health informa tion online - Detail Indication:BMI 23.0-23.9, adult Start:02-Aug-2019 Instruction Type:Patient Education Patient Instructions Indication:BMI 23.0-23.9, adult Start:02-Aug-2019 Instruction Type:Provider Instructions for Treatment How to access health informa tion online Indication:Impaired fasting glucose Start:29-Mar-2019 Instruction Type:Patient Education How to access health informa tion online - Detail Indication:Impaired fasting glucose Start:29-Mar-2019 Instruction Type:Patient Education Patient Instructions Indication:Impaired fasting glucose Start:29-Mar-2019 Instruction Type:Provider Instructions for Treatment Patient Instructions Indication:Hypercholesteremia Start:02-Feb-2019 Instruction Type:Provider Instructions for Treatment How to access health informa tion online Indication:Smoker Start:02-Feb-2019 Instruction Type:Patient Education How to access health informa tion online - Detail Indication:Smoker Start:02-Feb-2019 Instruction Type:Patient Education How to access health informa tion online Indication:Tobacco use Start:14-Dec-2018 Instruction Type:Patient Education How to access health informa tion online - Detail Indication:Tobacco use Start:14-Dec-2018 Instruction Type:Patient Education Patient Instructions Indication:Tobacco use Start:14-Dec-2018 Instruction Type:Provider Instructions for Treatment How to access health informa tion online Indication:Smoker Start:30-Nov-2018 Instruction Type:Patient Education How to access health informa tion online - Detail Indication:Smoker Start:30-Nov-2018 Instruction Type:Patient Education Patient Instructions Indication:Smoker Start:30-Nov-2018 Instruction Type:Provider Instructions for Treatment How to access health informa tion online Indication:Nonsmoker Start:26-Oct-2018 Instruction Type:Patient Education How to access health informa tion online - Detail Indication:Nonsmoker Start:26-Oct-2018 Instruction Type:Patient Education Patient Instructions Indication:Nonsmoker Start:26-Oct-2018 Instruction Type:Provider Instructions for Treatment How to access health informa tion online Indication:Nonsmoker Start:14-Nov-2017 Instruction Type:Patient Education How to access health informa tion online - Detail Indication:Nonsmoker Start:14-Nov-2017 Instruction Type:Patient Education Patient Instructions Indication:Back pain, acute Start:14-Nov-2017 Instruction Type:Provider Instructions for Treatment How to access health informa tion online Indication:Impaired fasting glucose Start:05-Oct-2017 Instruction Type:Patient Education How to access health informa tion online - Detail Indication:Impaired fasting glucose Start:05-Oct-2017 Instruction Type:Patient Education Patient Instructions Indication:Impaired fasting glucose Start:05-Oct-2017 Instruction Type:Provider Instructions for Treatment How to access health informa tion online Indication:Impaired fasting glucose Start:24-Nov-2016 Instruction Type:Patient Education How to access health informa tion online - Detail Indication:Impaired fasting glucose Start:24-Nov-2016 Instruction Type:Patient Education Patient Instructions Indication:Impaired fasting glucose Start:24-Nov-2016 Instruction Type:Provider Instructions for Treatment How to access health informa tion online Indication:Impaired fasting glucose Start:21-Jul-2016 Instruction Type:Patient Education How to access health informa tion online - Detail Indication:Impaired fasting glucose Start:21-Jul-2016 Instruction Type:Patient Education Patient Instructions Indication:Impaired fasting glucose Start:21-Jul-2016 Instruction Type:Provider Instructions for Treatment Patient Instructions Indication:Torticollis Start:19-Mar-2016 Instruction Type:Provider Instructions for Treatment How to access health informa tion online Indication:Hypercholesteremia Start:19-Mar-2016 Instruction Type:Patient Education How to access health informa tion online - Detail Indication:Hypercholesteremia Start:19-Mar-2016 Instruction Type:Patient Education Patient Instructions Indication:Hypercholesteremia Start:19-Mar-2016 Instruction Type:Provider Instructions for Treatment How to access health informa tion online Indication:Hypercholesteremia Start:25-Aug-2015 Instruction Type:Patient Education How to access health informa tion online - Detail Indication:Hypercholesteremia Start:25-Aug-2015 Instruction Type:Patient Education Patient Instructions Indication:Hypercholesteremia Start:25-Aug-2015 Instruction Type:Provider Instructions for Treatment Patient Instructions Indication:Fever and chills Start:01-Oct-2014 Instruction Type:Provider Instructions for Treatment How to access health informa tion online Indication:Impaired fasting glucose Start:02-Sep-2014 Instruction Type:Patient Education How to access health informa tion online - Detail Indication:Impaired fasting glucose Start:02-Sep-2014 Instruction Type:Patient Education Patient Instructions Indication:Impaired fasting glucose Start:02-Sep-2014 Instruction Type:Provider Instructions for Treatment Patient Instructions Indication:Impaired fasting glucose Start:08-Oct-2013 Instruction Type:Provider Instructions for Treatment Patient Instructions Indication:Hypercholesteremia Start:01-Jan-2013 Instruction Type:Provider Instructions for Treatment Patient Instructions Indication:Gallstones Start:31-Oct-2012 Instruction Type:Provider Instructions for Treatment Patient Instructions Indication:Hematuria Start:20-Oct-2012 Instruction Type:Provider Instructions for Treatment Name Dates Details How to Access Health Informa [facility] Online using Patient Portal and [employer] Indication:Smoker Start:01-Sep-2020 Instruction Type:Patient Education Patient Instructions Indication:Smoker Start:01-Sep-2020 Instruction Type:Provider Instructions for Treatment How to access health informa tion online Indication:Smoker Start:30-Apr-2020 Instruction Type:Patient Education How to access health informa tion online - Detail Indication:Need for prophylactic vaccination and inoculation against influenza (Renamed from Need for immunization against influenza) Start:30-Apr-2020 Instruction Type:Patient Education Patient Instructions Indication:Smoker Start:30-Apr-2020 Instruction Type:Provider Instructions for Treatment How to access health informa tion online Indication:BMI 24.0-24.9, adult Start:28-Jan-2020 Instruction Type:Patient Education How to access health informa tion online - Detail Indication:BMI 24.0-24.9, adult Start:28-Jan-2020 Instruction Type:Patient Education Patient Instructions Indication:BMI 24.0-24.9, adult Start:28-Jan-2020 Instruction Type:Provider Instructions for Treatment How to access health informa tion online Indication:BMI 23.0-23.9, adult Start:09-Jan-2020 Instruction Type:Patient Education How to access health informa tion online - Detail Indication:BMI 23.0-23.9, adult Start:09-Jan-2020 Instruction Type:Patient Education Patient Instructions Indication:BMI 23.0-23.9, adult Start:09-Jan-2020 Instruction Type:Provider Instructions for Treatment How to access health informa tion online Indication:Tobacco use Start:27-Dec-2019 Instruction Type:Patient Education How to access health informa tion online - Detail Indication:Tobacco use Start:27-Dec-2019 Instruction Type:Patient Education Patient Instructions Indication:Tobacco use Start:27-Dec-2019 Instruction Type:Provider Instructions for Treatment How to access health informa tion online Indication:BMI 23.0-23.9, adult Start:02-Aug-2019 Instruction Type:Patient Education How to access health informa tion online - Detail Indication:BMI 23.0-23.9, adult Start:02-Aug-2019 Instruction Type:Patient Education Patient Instructions Indication:BMI 23.0-23.9, adult Start:02-Aug-2019 Instruction Type:Provider Instructions for Treatment How to access health informa tion online Indication:Impaired fasting glucose Start:29-Mar-2019 Instruction Type:Patient Education How to access health informa tion online - Detail Indication:Impaired fasting glucose Start:29-Mar-2019 Instruction Type:Patient Education Patient Instructions Indication:Impaired fasting glucose Start:29-Mar-2019 Instruction Type:Provider Instructions for Treatment Patient Instructions Indication:Hypercholesteremia Start:02-Feb-2019 Instruction Type:Provider Instructions for Treatment How to access health informa tion online Indication:Smoker Start:02-Feb-2019 Instruction Type:Patient Education How to access health informa tion online - Detail Indication:Smoker Start:02-Feb-2019 Instruction Type:Patient Education How to access health informa tion online Indication:Tobacco use Start:14-Dec-2018 Instruction Type:Patient Education How to access health informa tion online - Detail Indication:Tobacco use Start:14-Dec-2018 Instruction Type:Patient Education Patient Instructions Indication:Tobacco use Start:14-Dec-2018 Instruction Type:Provider Instructions for Treatment How to access health informa tion online Indication:Smoker Start:30-Nov-2018 Instruction Type:Patient Education How to access health informa tion online - Detail Indication:Smoker Start:30-Nov-2018 Instruction Type:Patient Education Patient Instructions Indication:Smoker Start:30-Nov-2018 Instruction Type:Provider Instructions for Treatment How to access health informa tion online Indication:Nonsmoker Start:26-Oct-2018 Instruction Type:Patient Education How to access health informa tion online - Detail Indication:Nonsmoker Start:26-Oct-2018 Instruction Type:Patient Education Patient Instructions Indication:Nonsmoker Start:26-Oct-2018 Instruction Type:Provider Instructions for Treatment How to access health informa tion online Indication:Nonsmoker Start:14-Nov-2017 Instruction Type:Patient Education How to access health informa tion online - Detail Indication:Nonsmoker Start:14-Nov-2017 Instruction Type:Patient Education Patient Instructions Indication:Back pain, acute Start:14-Nov-2017 Instruction Type:Provider Instructions for Treatment How to access health informa tion online Indication:Impaired fasting glucose Start:05-Oct-2017 Instruction Type:Patient Education How to access health informa tion online - Detail Indication:Impaired fasting glucose Start:05-Oct-2017 Instruction Type:Patient Education Patient Instructions Indication:Impaired fasting glucose Start:05-Oct-2017 Instruction Type:Provider Instructions for Treatment How to access health informa tion online Indication:Impaired fasting glucose Start:24-Nov-2016 Instruction Type:Patient Education How to access health informa tion online - Detail Indication:Impaired fasting glucose Start:24-Nov-2016 Instruction Type:Patient Education Patient Instructions Indication:Impaired fasting glucose Start:24-Nov-2016 Instruction Type:Provider Instructions for Treatment How to access health informa tion online Indication:Impaired fasting glucose Start:21-Jul-2016 Instruction Type:Patient Education How to access health informa tion online - Detail Indication:Impaired fasting glucose Start:21-Jul-2016 Instruction Type:Patient Education Patient Instructions Indication:Impaired fasting glucose Start:21-Jul-2016 Instruction Type:Provider Instructions for Treatment Patient Instructions Indication:Torticollis Start:19-Mar-2016 Instruction Type:Provider Instructions for Treatment How to access health informa [facility] online Indication:Hypercholesteremia Start:19-Mar-2016 Instruction Type:Patient Education How to access health informa tion online - Detail Indication:Hypercholesteremia Start:19-Mar-2016 Instruction Type:Patient Education Patient Instructions Indication:Hypercholesteremia Start:19-Mar-2016 Instruction Type:Provider Instructions for Treatment How to access [employer] informa [facility] [employer] online Indication:Hypercholesteremia Start:25-Aug-2015 Instruction Type:Patient Education How to access health informa tion online - Detail Indication:Hypercholesteremia Start:25-Aug-2015 Instruction Type:Patient Education Patient Instructions Indication:Hypercholesteremia Start:25-Aug-2015 Instruction Type:Provider Instructions for Treatment Patient Instructions Indication:Fever and chills Start:01-Oct-2014 Instruction Type:Provider Instructions for Treatment How to access [employer] informa [employer] online Indication:Impaired fasting glucose Start:02-Sep-2014 Instruction Type:Patient Education How to access health informa tion online - Detail Indication:Impaired fasting glucose Start:02-Sep-2014 Instruction Type:Patient Education Patient Instructions Indication:Impaired fasting glucose Start:02-Sep-2014 Instruction Type:Provider Instructions for Treatment Patient Instructions Indication:Impaired fasting glucose Start:08-Oct-2013 Instruction Type:Provider Instructions for Treatment Patient Instructions Indication:Hypercholesteremia Start:01-Jan-2013 Instruction Type:Provider Instructions for Treatment Patient Instructions Indication:Gallstones Start:31-Oct-2012 Instruction Type:Provider Instructions for Treatment Patient Instructions Indication:Hematuria Start:20-Oct-2012 Instruction Type:Provider Instructions for Treatment Name Dates Details How to access [employer] online Indication:Smoker Start:30-Apr-2020 Instruction Type:Patient Education How to access [employer] informa [facility] [employer] online - Detail Indication:Need for prophylactic vaccination and inoculation against influenza (Renamed from Need for immunization against influenza) Start:30-Apr-2020 Instruction Type:Patient Education Patient Instructions Indication:Smoker Start:30-Apr-2020 Instruction Type:Provider Instructions for Treatment How to access health informa tion online Indication:BMI 24.0-24.9, adult Start:28-Jan-2020 Instruction Type:Patient Education How to access health informa tion online - Detail Indication:BMI 24.0-24.9, adult Start:28-Jan-2020 Instruction Type:Patient Education Patient Instructions Indication:BMI 24.0-24.9, adult Start:28-Jan-2020 Instruction Type:Provider Instructions for Treatment How to access health informa tion online Indication:BMI 23.0-23.9, adult Start:09-Jan-2020 Instruction Type:Patient Education How to access health informa tion online - Detail Indication:BMI 23.0-23.9, adult Start:09-Jan-2020 Instruction Type:Patient Education Patient Instructions Indication:BMI 23.0-23.9, adult Start:09-Jan-2020 Instruction Type:Provider Instructions for Treatment How to access health informa tion online Indication:Tobacco use Start:27-Dec-2019 Instruction Type:Patient Education How to access health informa tion online - Detail Indication:Tobacco use Start:27-Dec-2019 Instruction Type:Patient Education Patient Instructions Indication:Tobacco use Start:27-Dec-2019 Instruction Type:Provider Instructions for Treatment How to access health informa tion online Indication:BMI 23.0-23.9, adult Start:02-Aug-2019 Instruction Type:Patient Education How to access health informa tion online - Detail Indication:BMI 23.0-23.9, adult Start:02-Aug-2019 Instruction Type:Patient Education Patient Instructions Indication:BMI 23.0-23.9, adult Start:02-Aug-2019 Instruction Type:Provider Instructions for Treatment How to access health informa tion online Indication:Impaired fasting glucose Start:29-Mar-2019 Instruction Type:Patient Education How to access health informa tion online - Detail Indication:Impaired fasting glucose Start:29-Mar-2019 Instruction Type:Patient Education Patient Instructions Indication:Impaired fasting glucose Start:29-Mar-2019 Instruction Type:Provider Instructions for Treatment Patient Instructions Indication:Hypercholesteremia Start:02-Feb-2019 Instruction Type:Provider Instructions for Treatment How to access health informa tion online Indication:Smoker Start:02-Feb-2019 Instruction Type:Patient Education How to access health informa tion online - Detail Indication:Smoker Start:02-Feb-2019 Instruction Type:Patient Education How to access health informa tion online Indication:Tobacco use Start:14-Dec-2018 Instruction Type:Patient Education How to access health informa tion online - Detail Indication:Tobacco use Start:14-Dec-2018 Instruction Type:Patient Education Patient Instructions Indication:Tobacco use Start:14-Dec-2018 Instruction Type:Provider Instructions for Treatment How to access health informa tion online Indication:Smoker Start:30-Nov-2018 Instruction Type:Patient Education How to access health informa tion online - Detail Indication:Smoker Start:30-Nov-2018 Instruction Type:Patient Education Patient Instructions Indication:Smoker Start:30-Nov-2018 Instruction Type:Provider Instructions for Treatment How to access health informa tion online Indication:Nonsmoker Start:26-Oct-2018 Instruction Type:Patient Education How to access health informa tion online - Detail Indication:Nonsmoker Start:26-Oct-2018 Instruction Type:Patient Education Patient Instructions Indication:Nonsmoker Start:26-Oct-2018 Instruction Type:Provider Instructions for Treatment How to access health informa tion online Indication:Nonsmoker Start:14-Nov-2017 Instruction Type:Patient Education How to access health informa tion online - Detail Indication:Nonsmoker Start:14-Nov-2017 Instruction Type:Patient Education Patient Instructions Indication:Back pain, acute Start:14-Nov-2017 Instruction Type:Provider Instructions for Treatment How to access health informa tion online Indication:Impaired fasting glucose Start:05-Oct-2017 Instruction Type:Patient Education How to access health informa tion online - Detail Indication:Impaired fasting glucose Start:05-Oct-2017 Instruction Type:Patient Education Patient Instructions Indication:Impaired fasting glucose Start:05-Oct-2017 Instruction Type:Provider Instructions for Treatment How to access health informa tion online Indication:Impaired fasting glucose Start:24-Nov-2016 Instruction Type:Patient Education How to access health informa tion online - Detail Indication:Impaired fasting glucose Start:24-Nov-2016 Instruction Type:Patient Education Patient Instructions Indication:Impaired fasting glucose Start:24-Nov-2016 Instruction Type:Provider Instructions for Treatment How to access health informa tion online Indication:Impaired fasting glucose Start:21-Jul-2016 Instruction Type:Patient Education How to access health informa tion online - Detail Indication:Impaired fasting glucose Start:21-Jul-2016 Instruction Type:Patient Education Patient Instructions Indication:Impaired fasting glucose Start:21-Jul-2016 Instruction Type:Provider Instructions for Treatment Patient Instructions Indication:Torticollis Start:19-Mar-2016 Instruction Type:Provider Instructions for Treatment How to access health informa tion online Indication:Hypercholesteremia Start:19-Mar-2016 Instruction Type:Patient Education How to access health informa tion online - Detail Indication:Hypercholesteremia Start:19-Mar-2016 Instruction Type:Patient Education Patient Instructions Indication:Hypercholesteremia Start:19-Mar-2016 Instruction Type:Provider Instructions for Treatment How to access health informa tion online Indication:Hypercholesteremia Start:25-Aug-2015 Instruction Type:Patient Education How to access health informa tion online - Detail Indication:Hypercholesteremia Start:25-Aug-2015 Instruction Type:Patient Education Patient Instructions Indication:Hypercholesteremia Start:25-Aug-2015 Instruction Type:Provider Instructions for Treatment Patient Instructions Indication:Fever and chills Start:01-Oct-2014 Instruction Type:Provider Instructions for Treatment How to access health informa tion online Indication:Impaired fasting glucose Start:02-Sep-2014 Instruction Type:Patient Education How to access health informa tion online - Detail Indication:Impaired fasting glucose Start:02-Sep-2014 Instruction Type:Patient Education Patient Instructions Indication:Impaired fasting glucose Start:02-Sep-2014 Instruction Type:Provider Instructions for Treatment Patient Instructions Indication:Impaired fasting glucose Start:08-Oct-2013 Instruction Type:Provider Instructions for Treatment Patient Instructions Indication:Hypercholesteremia Start:01-Jan-2013 Instruction Type:Provider Instructions for Treatment Patient Instructions Indication:Gallstones Start:31-Oct-2012 Instruction Type:Provider Instructions for Treatment Patient Instructions Indication:Hematuria Start:20-Oct-2012 Instruction Type:Provider Instructions for Treatment Name Dates Details How to Access Health Informa [facility] [employer] Online using Patient Portal and [employer] Indication:Smoker Start:01-Sep-2020 Instruction Type:Patient Education Patient Instructions Indication:Smoker Start:01-Sep-2020 Instruction Type:Provider Instructions for Treatment How to access health informa tion online Indication:Smoker Start:30-Apr-2020 Instruction Type:Patient Education How to access health informa tion online - Detail Indication:Need for prophylactic vaccination and inoculation against influenza (Renamed from Need for immunization against influenza) Start:30-Apr-2020 Instruction Type:Patient Education Patient Instructions Indication:Smoker Start:30-Apr-2020 Instruction Type:Provider Instructions for Treatment How to access health informa tion online Indication:BMI 24.0-24.9, adult Start:28-Jan-2020 Instruction Type:Patient Education How to access health informa tion online - Detail Indication:BMI 24.0-24.9, adult Start:28-Jan-2020 Instruction Type:Patient Education Patient Instructions Indication:BMI 24.0-24.9, adult Start:28-Jan-2020 Instruction Type:Provider Instructions for Treatment How to access health informa tion online Indication:BMI 23.0-23.9, adult Start:09-Jan-2020 Instruction Type:Patient Education How to access health informa tion online - Detail Indication:BMI 23.0-23.9, adult Start:09-Jan-2020 Instruction Type:Patient Education Patient Instructions Indication:BMI 23.0-23.9, adult Start:09-Jan-2020 Instruction Type:Provider Instructions for Treatment How to access health informa tion online Indication:Tobacco use Start:27-Dec-2019 Instruction Type:Patient Education How to access health informa tion online - Detail Indication:Tobacco use Start:27-Dec-2019 Instruction Type:Patient Education Patient Instructions Indication:Tobacco use Start:27-Dec-2019 Instruction Type:Provider Instructions for Treatment How to access health informa tion online Indication:BMI 23.0-23.9, adult Start:02-Aug-2019 Instruction Type:Patient Education How to access health informa tion online - Detail Indication:BMI 23.0-23.9, adult Start:02-Aug-2019 Instruction Type:Patient Education Patient Instructions Indication:BMI 23.0-23.9, adult Start:02-Aug-2019 Instruction Type:Provider Instructions for Treatment How to access health informa tion online Indication:Impaired fasting glucose Start:29-Mar-2019 Instruction Type:Patient Education How to access health informa tion online - Detail Indication:Impaired fasting glucose Start:29-Mar-2019 Instruction Type:Patient Education Patient Instructions Indication:Impaired fasting glucose Start:29-Mar-2019 Instruction Type:Provider Instructions for Treatment Patient Instructions Indication:Hypercholesteremia Start:02-Feb-2019 Instruction Type:Provider Instructions for Treatment How to access health informa tion online Indication:Smoker Start:02-Feb-2019 Instruction Type:Patient Education How to access health informa tion online - Detail Indication:Smoker Start:02-Feb-2019 Instruction Type:Patient Education How to access health informa tion online Indication:Tobacco use Start:14-Dec-2018 Instruction Type:Patient Education How to access health informa tion online - Detail Indication:Tobacco use Start:14-Dec-2018 Instruction Type:Patient Education Patient Instructions Indication:Tobacco use Start:14-Dec-2018 Instruction Type:Provider Instructions for Treatment How to access health informa tion online Indication:Smoker Start:30-Nov-2018 Instruction Type:Patient Education How to access health informa tion online - Detail Indication:Smoker Start:30-Nov-2018 Instruction Type:Patient Education Patient Instructions Indication:Smoker Start:30-Nov-2018 Instruction Type:Provider Instructions for Treatment How to access health informa tion online Indication:Nonsmoker Start:26-Oct-2018 Instruction Type:Patient Education How to access health informa tion online - Detail Indication:Nonsmoker Start:26-Oct-2018 Instruction Type:Patient Education Patient Instructions Indication:Nonsmoker Start:26-Oct-2018 Instruction Type:Provider Instructions for Treatment How to access health informa tion online Indication:Nonsmoker Start:14-Nov-2017 Instruction Type:Patient Education How to access health informa tion online - Detail Indication:Nonsmoker Start:14-Nov-2017 Instruction Type:Patient Education Patient Instructions Indication:Back pain, acute Start:14-Nov-2017 Instruction Type:Provider Instructions for Treatment How to access health informa tion online Indication:Impaired fasting glucose Start:05-Oct-2017 Instruction Type:Patient Education How to access health informa tion online - Detail Indication:Impaired fasting glucose Start:05-Oct-2017 Instruction Type:Patient Education Patient Instructions Indication:Impaired fasting glucose Start:05-Oct-2017 Instruction Type:Provider Instructions for Treatment How to access health informa tion online Indication:Impaired fasting glucose Start:24-Nov-2016 Instruction Type:Patient Education How to access health informa tion online - Detail Indication:Impaired fasting glucose Start:24-Nov-2016 Instruction Type:Patient Education Patient Instructions Indication:Impaired fasting glucose Start:24-Nov-2016 Instruction Type:Provider Instructions for Treatment How to access health informa tion online Indication:Impaired fasting glucose Start:21-Jul-2016 Instruction Type:Patient Education How to access health informa [employer] [employer] online - Detail Indication:Impaired fasting glucose Start:21-Jul-2016 Instruction Type:Patient Education Patient Instructions Indication:Impaired fasting glucose Start:21-Jul-2016 Instruction Type:Provider Instructions for Treatment Patient Instructions Indication:Torticollis Start:19-Mar-2016 Instruction Type:Provider Instructions for Treatment How to access [employer] online Indication:Hypercholesteremia Start:19-Mar-2016 Instruction Type:Patient Education How to access health informa tion online - Detail Indication:Hypercholesteremia Start:19-Mar-2016 Instruction Type:Patient Education Patient Instructions Indication:Hypercholesteremia Start:19-Mar-2016 Instruction Type:Provider Instructions for Treatment How to access [employer] online Indication:Hypercholesteremia Start:25-Aug-2015 Instruction Type:Patient Education How to access health informa tion online - Detail Indication:Hypercholesteremia Start:25-Aug-2015 Instruction Type:Patient Education Patient Instructions Indication:Hypercholesteremia Start:25-Aug-2015 Instruction Type:Provider Instructions for Treatment Patient Instructions Indication:Fever and chills Start:01-Oct-2014 Instruction Type:Provider Instructions for Treatment How to access [employer] online Indication:Impaired fasting glucose Start:02-Sep-2014 Instruction Type:Patient Education How to access [employer] [employer] - Detail Indication:Impaired fasting glucose Start:02-Sep-2014 Instruction Type:Patient Education Patient Instructions Indication:Impaired fasting glucose Start:02-Sep-2014 Instruction Type:Provider Instructions for Treatment Patient Instructions Indication:Impaired fasting glucose Start:08-Oct-2013 Instruction Type:Provider Instructions for Treatment Patient Instructions Indication:Hypercholesteremia Start:01-Jan-2013 Instruction Type:Provider Instructions for Treatment Patient Instructions Indication:Gallstones Start:31-Oct-2012 Instruction Type:Provider Instructions for Treatment Patient Instructions Indication:Hematuria Start:20-Oct-2012 Instruction Type:Provider Instructions for Treatment Name Dates Details How to access [employer] online Indication:Impaired fasting glucose Start:29-Mar-2019 Instruction Type:Patient Education How to access [employer] - Detail Indication:Impaired fasting glucose Start:29-Mar-2019 Instruction Type:Patient Education Patient Instructions Indication:Impaired fasting glucose Start:29-Mar-2019 Instruction Type:Provider Instructions for Treatment Patient Instructions Indication:Hypercholesteremia Start:02-Feb-2019 Instruction Type:Provider Instructions for Treatment How to access health informa tion online Indication:Smoker Start:02-Feb-2019 Instruction Type:Patient Education How to access health informa tion online - Detail Indication:Smoker Start:02-Feb-2019 Instruction Type:Patient Education How to access health informa tion online Indication:Tobacco use Start:14-Dec-2018 Instruction Type:Patient Education How to access health informa tion online - Detail Indication:Tobacco use Start:14-Dec-2018 Instruction Type:Patient Education Patient Instructions Indication:Tobacco use Start:14-Dec-2018 Instruction Type:Provider Instructions for Treatment How to access health informa tion online Indication:Smoker Start:30-Nov-2018 Instruction Type:Patient Education How to access health informa tion online - Detail Indication:Smoker Start:30-Nov-2018 Instruction Type:Patient Education Patient Instructions Indication:Smoker Start:30-Nov-2018 Instruction Type:Provider Instructions for Treatment How to access health informa tion online Indication:Nonsmoker Start:26-Oct-2018 Instruction Type:Patient Education How to access health informa tion online - Detail Indication:Nonsmoker Start:26-Oct-2018 Instruction Type:Patient Education Patient Instructions Indication:Nonsmoker Start:26-Oct-2018 Instruction Type:Provider Instructions for Treatment How to access health informa tion online Indication:Nonsmoker Start:14-Nov-2017 Instruction Type:Patient Education How to access health informa tion online - Detail Indication:Nonsmoker Start:14-Nov-2017 Instruction Type:Patient Education Patient Instructions Indication:Back pain, acute Start:14-Nov-2017 Instruction Type:Provider Instructions for Treatment How to access health informa tion online Indication:Impaired fasting glucose Start:05-Oct-2017 Instruction Type:Patient Education How to access health informa tion online - Detail Indication:Impaired fasting glucose Start:05-Oct-2017 Instruction Type:Patient Education Patient Instructions Indication:Impaired fasting glucose Start:05-Oct-2017 Instruction Type:Provider Instructions for Treatment How to access health informa tion online Indication:Impaired fasting glucose Start:24-Nov-2016 Instruction Type:Patient Education How to access health informa tion online - Detail Indication:Impaired fasting glucose Start:24-Nov-2016 Instruction Type:Patient Education Patient Instructions Indication:Impaired fasting glucose Start:24-Nov-2016 Instruction Type:Provider Instructions for Treatment How to access health [place] [employer] online Indication:Impaired fasting glucose Start:21-Jul-2016 Instruction Type:Patient Education How to access health informa tion online - Detail Indication:Impaired fasting glucose Start:21-Jul-2016 Instruction Type:Patient Education Patient Instructions Indication:Impaired fasting glucose Start:21-Jul-2016 Instruction Type:Provider Instructions for Treatment Patient Instructions Indication:Torticollis Start:19-Mar-2016 Instruction Type:Provider Instructions for Treatment How to access health informa [employer] online Indication:Hypercholesteremia Start:19-Mar-2016 Instruction Type:Patient Education How to access health informa tion online - Detail Indication:Hypercholesteremia Start:19-Mar-2016 Instruction Type:Patient Education Patient Instructions Indication:Hypercholesteremia Start:19-Mar-2016 Instruction Type:Provider Instructions for Treatment How to access health informa tion online Indication:Hypercholesteremia Start:25-Aug-2015 Instruction Type:Patient Education How to access health informa tion online - Detail Indication:Hypercholesteremia Start:25-Aug-2015 Instruction Type:Patient Education Patient Instructions Indication:Hypercholesteremia Start:25-Aug-2015 Instruction Type:Provider Instructions for Treatment Patient Instructions Indication:Fever and chills Start:01-Oct-2014 Instruction Type:Provider Instructions for Treatment How to access health [place] [employer] online Indication:Impaired fasting glucose Start:02-Sep-2014 Instruction Type:Patient Education How to access health informa [employer] online - Detail Indication:Impaired fasting glucose Start:02-Sep-2014 Instruction Type:Patient Education Patient Instructions Indication:Impaired fasting glucose Start:02-Sep-2014 Instruction Type:Provider Instructions for Treatment Patient Instructions Indication:Impaired fasting glucose Start:08-Oct-2013 Instruction Type:Provider Instructions for Treatment Patient Instructions Indication:Hypercholesteremia Start:01-Jan-2013 Instruction Type:Provider Instructions for Treatment Patient Instructions Indication:Gallstones Start:31-Oct-2012 Instruction Type:Provider Instructions for Treatment Patient Instructions Indication:Hematuria Start:20-Oct-2012 Instruction Type:Provider Instructions for Treatment Name Dates Details How to access health [place] [employer] online Indication:Impaired fasting glucose Start:29-Mar-2019 Instruction Type:Patient Education How to access health [place] [employer] online - Detail Indication:Impaired fasting glucose Start:29-Mar-2019 Instruction Type:Patient Education Patient Instructions Indication:Impaired fasting glucose Start:29-Mar-2019 Instruction Type:Provider Instructions for Treatment Patient Instructions Indication:Hypercholesteremia Start:02-Feb-2019 Instruction Type:Provider Instructions for Treatment How to access health informa tion online Indication:Smoker Start:02-Feb-2019 Instruction Type:Patient Education How to access health informa tion online - Detail Indication:Smoker Start:02-Feb-2019 Instruction Type:Patient Education How to access health informa tion online Indication:Tobacco use Start:14-Dec-2018 Instruction Type:Patient Education How to access health informa tion online - Detail Indication:Tobacco use Start:14-Dec-2018 Instruction Type:Patient Education Patient Instructions Indication:Tobacco use Start:14-Dec-2018 Instruction Type:Provider Instructions for Treatment How to access health informa tion online Indication:Smoker Start:30-Nov-2018 Instruction Type:Patient Education How to access health informa tion online - Detail Indication:Smoker Start:30-Nov-2018 Instruction Type:Patient Education Patient Instructions Indication:Smoker Start:30-Nov-2018 Instruction Type:Provider Instructions for Treatment How to access health informa tion online Indication:Nonsmoker Start:26-Oct-2018 Instruction Type:Patient Education How to access health informa tion online - Detail Indication:Nonsmoker Start:26-Oct-2018 Instruction Type:Patient Education Patient Instructions Indication:Nonsmoker Start:26-Oct-2018 Instruction Type:Provider Instructions for Treatment How to access health informa tion online Indication:Nonsmoker Start:14-Nov-2017 Instruction Type:Patient Education How to access health informa tion online - Detail Indication:Nonsmoker Start:14-Nov-2017 Instruction Type:Patient Education Patient Instructions Indication:Back pain, acute Start:14-Nov-2017 Instruction Type:Provider Instructions for Treatment How to access health informa tion online Indication:Impaired fasting glucose Start:05-Oct-2017 Instruction Type:Patient Education How to access health informa tion online - Detail Indication:Impaired fasting glucose Start:05-Oct-2017 Instruction Type:Patient Education Patient Instructions Indication:Impaired fasting glucose Start:05-Oct-2017 Instruction Type:Provider Instructions for Treatment How to access health informa tion online Indication:Impaired fasting glucose Start:24-Nov-2016 Instruction Type:Patient Education How to access health informa tion online - Detail Indication:Impaired fasting glucose Start:24-Nov-2016 Instruction Type:Patient Education Patient Instructions Indication:Impaired fasting glucose Start:24-Nov-2016 Instruction Type:Provider Instructions for Treatment How to access health informa tion online Indication:Impaired fasting glucose Start:21-Jul-2016 Instruction Type:Patient Education How to access health informa tion online - Detail Indication:Impaired fasting glucose Start:21-Jul-2016 Instruction Type:Patient Education Patient Instructions Indication:Impaired fasting glucose Start:21-Jul-2016 Instruction Type:Provider Instructions for Treatment Patient Instructions Indication:Torticollis Start:19-Mar-2016 Instruction Type:Provider Instructions for Treatment How to access health informa [employer] online Indication:Hypercholesteremia Start:19-Mar-2016 Instruction Type:Patient Education How to access health informa tion online - Detail Indication:Hypercholesteremia Start:19-Mar-2016 Instruction Type:Patient Education Patient Instructions Indication:Hypercholesteremia Start:19-Mar-2016 Instruction Type:Provider Instructions for Treatment How to access health informa [employer] online Indication:Hypercholesteremia Start:25-Aug-2015 Instruction Type:Patient Education How to access health informa tion online - Detail Indication:Hypercholesteremia Start:25-Aug-2015 Instruction Type:Patient Education Patient Instructions Indication:Hypercholesteremia Start:25-Aug-2015 Instruction Type:Provider Instructions for Treatment Patient Instructions Indication:Fever and chills Start:01-Oct-2014 Instruction Type:Provider Instructions for Treatment How to access health informa [employer] online Indication:Impaired fasting glucose Start:02-Sep-2014 Instruction Type:Patient Education How to access health informa tion online - Detail Indication:Impaired fasting glucose Start:02-Sep-2014 Instruction Type:Patient Education Patient Instructions Indication:Impaired fasting glucose Start:02-Sep-2014 Instruction Type:Provider Instructions for Treatment Patient Instructions Indication:Impaired fasting glucose Start:08-Oct-2013 Instruction Type:Provider Instructions for Treatment Patient Instructions Indication:Hypercholesteremia Start:01-Jan-2013 Instruction Type:Provider Instructions for Treatment Patient Instructions Indication:Gallstones Start:31-Oct-2012 Instruction Type:Provider Instructions for Treatment Patient Instructions Indication:Hematuria Start:20-Oct-2012 Instruction Type:Provider Instructions for Treatment Name Dates Details How to access health [place] [employer] Indication:Tobacco use Start:14-Dec-2018 Instruction Type:Patient Education How to access health informa tion online - Detail Indication:Tobacco use Start:14-Dec-2018 Instruction Type:Patient Education Patient Instructions Indication:Tobacco use Start:14-Dec-2018 Instruction Type:Provider Instructions for Treatment How to access health informa tion online Indication:Smoker Start:30-Nov-2018 Instruction Type:Patient Education How to access health informa tion online - Detail Indication:Smoker Start:30-Nov-2018 Instruction Type:Patient Education Patient Instructions Indication:Smoker Start:30-Nov-2018 Instruction Type:Provider Instructions for Treatment How to access health informa tion online Indication:Nonsmoker Start:26-Oct-2018 Instruction Type:Patient Education How to access health informa tion online - Detail Indication:Nonsmoker Start:26-Oct-2018 Instruction Type:Patient Education Patient Instructions Indication:Nonsmoker Start:26-Oct-2018 Instruction Type:Provider Instructions for Treatment How to access health informa tion online Indication:Nonsmoker Start:14-Nov-2017 Instruction Type:Patient Education How to access health informa tion online - Detail Indication:Nonsmoker Start:14-Nov-2017 Instruction Type:Patient Education Patient Instructions Indication:Back pain, acute Start:14-Nov-2017 Instruction Type:Provider Instructions for Treatment How to access health informa tion online Indication:Impaired fasting glucose Start:05-Oct-2017 Instruction Type:Patient Education How to access health informa tion online - Detail Indication:Impaired fasting glucose Start:05-Oct-2017 Instruction Type:Patient Education Patient Instructions Indication:Impaired fasting glucose Start:05-Oct-2017 Instruction Type:Provider Instructions for Treatment How to access health informa tion online Indication:Impaired fasting glucose Start:24-Nov-2016 Instruction Type:Patient Education How to access health informa tion online - Detail Indication:Impaired fasting glucose Start:24-Nov-2016 Instruction Type:Patient Education Patient Instructions Indication:Impaired fasting glucose Start:24-Nov-2016 Instruction Type:Provider Instructions for Treatment How to access health informa tion online Indication:Impaired fasting glucose Start:21-Jul-2016 Instruction Type:Patient Education How to access health informa tion online - Detail Indication:Impaired fasting glucose Start:21-Jul-2016 Instruction Type:Patient Education Patient Instructions Indication:Impaired fasting glucose Start:21-Jul-2016 Instruction Type:Provider Instructions for Treatment Patient Instructions Indication:Torticollis Start:19-Mar-2016 Instruction Type:Provider Instructions for Treatment How to access health informa tion online Indication:Hypercholesteremia Start:19-Mar-2016 Instruction Type:Patient Education How to access health informa tion online - Detail Indication:Hypercholesteremia Start:19-Mar-2016 Instruction Type:Patient Education Patient Instructions Indication:Hypercholesteremia Start:19-Mar-2016 Instruction Type:Provider Instructions for Treatment How to access health informa tion online Indication:Hypercholesteremia Start:25-Aug-2015 Instruction Type:Patient Education How to access health informa tion online - Detail Indication:Hypercholesteremia Start:25-Aug-2015 Instruction Type:Patient Education Patient Instructions Indication:Hypercholesteremia Start:25-Aug-2015 Instruction Type:Provider Instructions for Treatment Patient Instructions Indication:Fever and chills Start:01-Oct-2014 Instruction Type:Provider Instructions for Treatment How to access health informa tion online Indication:Impaired fasting glucose Start:02-Sep-2014 Instruction Type:Patient Education How to access health informa tion online - Detail Indication:Impaired fasting glucose Start:02-Sep-2014 Instruction Type:Patient Education Patient Instructions Indication:Impaired fasting glucose Start:02-Sep-2014 Instruction Type:Provider Instructions for Treatment Patient Instructions Indication:Impaired fasting glucose Start:08-Oct-2013 Instruction Type:Provider Instructions for Treatment Patient Instructions Indication:Hypercholesteremia Start:01-Jan-2013 Instruction Type:Provider Instructions for Treatment Patient Instructions Indication:Gallstones Start:31-Oct-2012 Instruction Type:Provider Instructions for Treatment Patient Instructions Indication:Hematuria Start:20-Oct-2012 Instruction Type:Provider Instructions for Treatment Summary Purpose Advance Directives No Advanced Directives Records Found Name Dates Details Immunization Registry [place] - Effective on 10/14/2020. Expiration date unspecified Effective:14-Oct-2020 Name Dates Details Immunization Registry [place] - Effective on 10/14/2020. Expiration date unspecified Effective:14-Oct-2020 Name Dates Details Immunization Registry [place] - Effective on 10/14/2020. Expiration date unspecified Effective:14-Oct-2020 Name Dates Details Immunization Registry [place] - Effective on 10/14/2020. Expiration date unspecified Effective:14-Oct-2020 Name Dates Details Immunization Registry [place] - Effective on 10/14/2020. Expiration date unspecified Effective:14-Oct-2020 Name Dates Details Immunization Registry [place] - Effective on 10/14/2020. Expiration date unspecified Effective:14-Oct-2020 Name Dates Details Immunization Registry [place] - Effective on 10/14/2020. Expiration date unspecified Effective:14-Oct-2020 Name Dates Details Immunization Registry [place] - Effective on 10/14/2020. Expiration date unspecified Effective:14-Oct-2020 Name Dates Details Immunization Registry [place] - Effective on 10/14/2020. Expiration date unspecified Effective:14-Oct-2020 Name Dates Details Immunization Registry [place] - Effective on 10/14/2020. Expiration date unspecified Effective:14-Oct-2020 Name Dates Details Immunization Registry [place] - Effective on 10/14/2020. Expiration date unspecified Effective:14-Oct-2020 Name Dates Details Immunization Registry [place] - Effective on 10/14/2020. Expiration date unspecified Effective:14-Oct-2020 Name Dates Details Immunization Registry [place] - Effective on 10/14/2020. Expiration date unspecified Effective:14-Oct-2020 Name Dates Details Immunization Registry [place] - Effective on 10/14/2020. Expiration date unspecified Effective:14-Oct-2020 Advance Directive Response Recorded Date/ Time Advance Directives No March 15, 2014 11:02am Living Will Yes September 06 11:26am Power of Steward/[employer] Yes September 06, 2019 11:26am Name Dates Details Immunization Registry [place] - Effective on 10/14/2020. Expiration date unspecified Effective:14-Oct-2020 Advance Directive Response Recorded Date/ Time Advance Directives No March 15, 2014 10:02am Living Will Yes September 06, 020 10:26am Power of [employer] Yes September 06, 2019 10:26am Advance Directive Response Recorded Date/ Time Advance Directives No March 15, 2014 10:02am Living Will No June 15, 022 2:00pm Power of Steward/[employer] No June 15, 2022 2:00pm Name Dates Details Immunization Registry [place] - Effective on 10/14/2020. Expiration date unspecified Effective:14-Oct-2020 Advance Directive Response Recorded Date/ Time Advance Directives No March 15, 2014 10:02am Living Will No June 30 2:19pm Power of Steward/[employer]wardess [employer] No June 30, 2022 2:19pm Name Dates Details Immunization Registry [place] - Effective on 10/14/2020. Expiration date unspecified Effective:14-Oct-2020 Advance Directive Response Recorded Date/ Time Advance Directives No March 15, 2014 11:02am Living Will No June 30 3:19pm Power of Steward/Stewardess [employer] No June 30, 2022 3:19pm Name Dates Details Immunization Registry [place] - Effective on 10/14/2020. Expiration date unspecified Effective:14-Oct-2020 Name Dates Details Immunization Registry [place] - Effective on 10/14/2020. Expiration date unspecified Effective:14-Oct-2020 Name Dates Details Immunization Registry [place] - Effective on 10/14/2020. Expiration date unspecified Effective:14-Oct-2020 Name Dates Details Immunization Registry [place] - Effective on 10/14/2020. Expiration date unspecified Effective:14-Oct-2020 Name Dates Details Immunization Registry [place] - Effective on 10/14/2020. Expiration date unspecified Effective:14-Oct-2020 Name Dates Details Immunization Registry [place] - Effective on 10/14/2020. Expiration date unspecified Effective:14-Oct-2020 Name Dates Details Immunization Registry [place] - Effective on 10/14/2020. Expiration date unspecified Effective:14-Oct-2020 Advance Directive Response Recorded Date/ Time Advance Directives No March 15, 2014 11:02am Chief Complaint and Reason for Visit Chief Complaint Malignant neoplasm o f prostate Chief Complaint Malignant neoplasm o f prostate pre-op Chief Complaint Malignant neoplasm o f prostate pre-op pre-op PROSTATE CA Chief Complaint Malignant neoplasm o f prostate pre-op pre-op PROSTATE CA LAP ROBOTIC RADICAL PROSTATECTOMY Reason for Referral Specialty Diagnoses / Procedures Referred By Angel kuo Referred To Contact Diagnoses Spasmodic torticollis Abnormal involuntary movements Christine Tesfaye MD [address] [facility] [address] [place] [address] Referral ID Status Reason Start Date Expiration Date Visits Re quested Visits Authorized Closed 1 1 Referral ID Status Reason Start Date Expiration Date V isits Requested Visits Authorized Pending Review 1 1 Specialty Diagnoses / Procedures Referred By Angel kuo Referred To Contact Diagnoses Abnormal involuntary movements Tic disorder Christine Tesfaye MD [address] [place] [address] Referral ID Status Reason Start Date Expiration Date V isits Requested Visits Authorized [id number] Pending Review 1 1 Referral ID Status Reason Start Date Expiration Date Visits Re quested Visits Authorized [id number] Closed 1 1 Specialty Diagnoses / Procedures Referred By Contac t Referred To Contact Cardiology Diagnoses 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) Procedures Vascular US lower extremity arterial PVR Christine Tesfaye MD [address] [place] [address] Referral ID Status Reason Start Date Expiration Date V isits Requested Visits Authorized [id number] Pending Review 12/08/2023 12/07/2024 1 1 Additional Source Comments (unrecognized sect ion and content) No Status Records FoundNo Status Records FoundNo Status Records FoundNo Status Records FoundNo Status Records Found INFORMATION SOURCE (unrecogn ized section and content) DATE CREATED AUTHOR 04/06/2019 [facility] DATE CREATED AUTHOR AUTHOR'S ORGANIZ ATION 11/24/2020 [facility] DATE CREATED AUTHOR AUTHOR'S ORGANIZ ATION 08/20/2022 [facility] DATE CREATED AUTHOR AUTHOR'S ORGANIZ ATION 03/18/2025 [facility] DATE CREATED AUTHOR AUTHOR'S ORGANIZ ATION 06/01/2025 [facility] Goals (unrecognized section and content) Goals may be documented in a n alternate sectionGoals may be documented in an alternate sectionGoals may be documented in an alternate sectionGoals may be documented in an alternate sectionGoals may be documented in an alternate sectionGoals may be documented in an alternate sectionGoals may be documented in an alternate sectionGoals may be documented in an alternate section Care Teams (unrecognized sec tion and content) Team Status: Active Member Role Status Dates Dr. Marybeth Thomas , DO Family Provider Active Dr. Marybeth Thomas , DO Primary Care Provider Active Team Status: Active Member Role Status Dates Dr. Marybeth Thomas , DO Primary Care Provider Active Dr. Carlos Alberto Jackson MD Attending Provider Active Dr. Dean Castillo MD Referring Provider Active Team Status: Inactive Member Role Status Dates Dr. Marybeth Thomas , DO Primary Care Provider Active Dr. Dean Castillo MD Attending Provider, Referr ing Provider Active Team Status: Inactive Member Role Status Dates Dr. Marybeth Thomas DO Primary Care Provider Active Dr. Dean Castillo MD Attending Provider Active Team Status: Inactive Member Role Status Dates Dr. Marybeth Thomas , DO Primary Care Provider Active Dr. Dean Castillo MD Admit Provid er, Attending Provider, Referring Provider Active Part Time Receptionist Relationship Specialty Start Date End Date Marybeth Thomas [address] [place] [phone] PCP - General 07/17/20 Team Status: Inactive Member Role Status Dates Dr. Marybeth Thomas DO Primary Care Provider Active Selene Larose , BUHR DRESSER-C Attending Provider, Referrin g Provider Active Part Time Receptionist Relationship Specialty Start Date End Date Marybeth Thomas DO [address] [place] [phone] PCP - General 07/17/20 Part Time Receptionist Relationship Specialty Start Date End Date Marybeth Thomas DO [address] [place] [phone] PCP - General 07/17/20 Part Time Receptionist Relationship Specialty Start Date End Date Marybeth Thomas DO [address] [place] [phone] PCP - General 07/17/20 Part Time Receptionist Relationship Specialty Start Date End Date Marybeth Thomas DO [address] [place] [phone] PCP - General 07/17/20 Part Time Receptionist Relationship Specialty Start Date End Date Marybeth Thomas DO [address] [place] [phone] PCP - General 07/17/20 Part Time Receptionist Relationship Specialty Start Date End Date Marybeth Thomas DO [address] [place] [phone] PCP - General 07/17/20 Part Time Receptionist Relationship Specialty Start Date End Date Marybeth Thomas DO [address] [place] [phone] PCP - General 07/17/20 Part Time Receptionist Relationship Specialty Start Date End Date Marybeth Thomas DO [address] [place] [phone] PCP - General 07/17/20 Part Time Receptionist Relationship Specialty Start Date End Date Marybeth Thomas DO [address] [place] [phone] PCP - General 07/17/20 Part Time Receptionist Relationship Specialty Start Date End Date Marybeth Thomas DO [address] [place] [phone] PCP - General 07/17/20 Part Time Receptionist Relationship Specialty Start Date End Date Marybeth Thomas DO [address] [place] [phone] PCP - General 07/17/20 Part Time Receptionist Relationship Specialty Start Date End Date Marybeth Thomas [address] [place] [phone] PCP - General 07/17/20 Part Time Receptionist Relationship Specialty Start Date End Date Marybeth Thomas [address] [facility] [address] [place] [phone] PCP - General 07/17/20 Part Time Receptionist Relationship Specialty Start Date End Date Marybeth Thomas [address] [facility] [address] [place] [phone] PCP - General 07/17/20 Team Status: Active Member Role/Relationship Status Dates Dr. Marybeth Thomas DO Family Provider Active Dr. Marybeth Thomas DO Primary Care Provider Active Team Status: Inactive Member Role/Relationship Status Dates Dr. Marybeth Thomas DO Primary Care Provider Active Start: March 11, 2025 End: March 11, 2025 Gayle Whalening Attending Provider Active Start : March 11, 2025 End: March 11, 2025 Gayle Whalening Referring Provider Active Start : March 11, 2025 End: March 11, 2025 Part Time Receptionist Relationship Specialty Start Date End Date Marybeth Thomas DO [address] [facility] [address] [place] [phone] PCP - General 07/17/20 Reason for Visit (unrecogniz ed section and content) Reason Comments Med Refill Reason Comments Follow-up Tremors Reason Comments Follow-up Reason Comments Med Change Request Reason Comments Follow-up Spasmodic torticollis Reason Onset Date Comments Prior Authorization 09/16/2023 Reason Comments Follow-up Muscle Pain burning Spasms Reason Onset Date Comments Orders 12/16/2023 Reason Comments Follow-up Spasms Reason Onset Date Comments Release of Information 08/20/2022 FOR RECORDS PERTAINING TO PATIENTS WHO ARE OR HAVE BEEN ENROLLED IN A CHEMICAL DEPENDENCY/SUBSTANCEABUSE PROGRAM, SOME INFORMATION MAY BE OMITTED. This clinical summary was aggregated from multiple sources. Caution should be exercised in using it in the provision of clinical care. This summary normalizes information from multiple sources, and as a consequence, information in this document may materially change the coding, format and clinical context of patient data. In addition, data may be omitted in some cases. CLINICAL DECISIONS SHOULD BE BASED ON THE PRIMARY CLINICAL RECORDS. [facility]. provides no warranty or guarantee of the accuracy or completeness of information in this document.
[2025-06-28 18:11] LABS: Prothrombin Time (Protime)PT. 13.4 SECONDS (11.7-14.9)
[2025-06-28 18:12] LABS: Partial Thromboplast Time 30.5 Seconds (24.1-36.2)
[2025-06-28 18:48] LABS: Anion Gap 15 (5-15); BUN 23 mg/dL (4-19); BUN/Creat Ratio 12.7 RATIO (10-20); Calcium,Total 9.7 mg/dL (7.6-11.0); Carbon Dioxide 25.7 mmol/L (21.0-32.0); Chloride 101 mmol/L (98-108); Estimated Creatinine Clearance 39.52 ml/min (50-250); Glucose 153 mg/dL (70-99); Potassium 3.8 mmol/L (3.3-5.1); Troponin T High Sensitivity 236 ng/L (<=22)
--- NOTE | 2025-06-28 19:21 | PCM.HP.STD ---
HPI - General General Date of Admission: 06/28/25 Date of Service: 06/28/25 Chief Complaint: Chest pain and shortness of breath with exertion HPI Narrative VISHAL GAR, is a 70 M who presented to [facility] ED on 06/28/2025 with chest pain and shortness of breath with exertion. Patient lives at home with his , has good functional status at baseline. Medical history significant for tobacco use/current smoker, COPD and essential tremor. Patient reports intermittent chest pain now for about 1 week. He describes this as a intermittent burning sensation across his chest. He becomes significantly short of breath with only walking across the room and this chest pain worsens with exertion as well. In the ED he was hypertensive to the 140s to 150s systolic, was otherwise in normal sinus rhythm and stable on room air at rest. Initial troponin 236. EKG showed significant ST depressions in the inferior and lateral leads. Dr. Mariscal discussed case with Dr. Bernardo who recommended heparin drip for NSTEMI, nitro drip for chest pain and admission to the ICU. Hospitalist was then contacted for admission. I saw the patient at bedside in the ED, was present. Patient was sitting back comfortably in bed, conversing normally, in no acute distress. Denies any chest pain at this time. No other acute concerns currently. Will be admitted for further management. [facility] Medical History Loss of hearing Wears glasses Prostate disease Injury of head and neck Tremor Vertigo Gastric reflux Smoker COPD (chronic obstructive pulmonary disease) Shortness of breath on exertion Chronic cough Leg cramps History of pain when walking History of stress test Cancer Eczema Vitamin D deficiency Hypercholesterolemia History of kidney stones RUQ pain Gallbladder polyp Home Medications ?Medication ?Instructions ?Recorded ?Last Taken ?Type fluticasone fur. 200 mcg-umeclid 1 inh inhalation DAILY 06/28/25 06/25/25 History 62.5 mcg-vilant 25 mcg inhalat.powder (Trelegy Ellipta) propranolol 60 mg tablet 60 mg PO BID 06/28/25 Unknown History Allergy/AdvReac Type Severity Reaction Status Date / Time hydrocodone bitartrate (From AdvReac Other Verified 06/28/25 17:11 Vicodin) Family History Mother Breast cancer Father Heart disease Daughter Thyroid disorder Surgical History Hx of colonoscopy history of surgery for kidney stones Social History Smoking Status: Current every day smoker tobacco type: cigarettes quit status: considering quitting alcohol intake: never substance use type: does not use ROS Constitutional Constitutional: Denies chills, fatigue, fever(s) or weakness Eyes Eyes: Denies change in vision Cardiovascular Cardiovascular: Reports chest pain and dyspnea on exertion; Denies edema, lightheadedness, orthopnea or palpitations Respiratory/Chest Respiratory/Chest: Denies cough, productive cough, shortness of breath at rest or wheezing Gastrointestinal Gastrointestinal: Denies abdominal pain, constipation, diarrhea, nausea or vomiting Musculoskeletal Musculoskeletal: Denies arthralgias or myalgias Neurologic Neurologic: Denies dizziness, focal weakness, headache(s), numbness or tingling Vital Signs Vital Signs Vital Signs: 06/28/25 17:10 06/28/25 17:33 06/28/25 17:45 Temperature 96.9 F L Temperature Source Temporal Pulse Rate 93 Respiratory Rate 18 Blood Pressure 115/60 154/101 H Blood Pressure Mean 78 118 Pulse Ox 98 98 Oxygen Delivery Method Room Air Room Air 06/28/25 18:09 06/28/25 19:00 06/28/25 19:11 Temperature 97.9 F Temperature Source Pulse Rate 97 86 82 Respiratory Rate 18 18 16 Blood Pressure 140/116 H 131/78 H 131/78 H Blood Pressure Mean 124 95 95 Pulse Ox 97 97 95 Oxygen Delivery Method Room Air Room Air Weight Weight: 74.026 kg Body Mass Index (BMI) 23.4 Physical Exam Const alert, oriented x3, no apparent distress and average body habitus Constitutional Narrative: Elderly male, mildly fatigued appearing, bilateral arm essential tremor noted, otherwise sitting back in bed comfortably, conversing normally, in no acute distress. General Appearance: cooperative and comfortable HEENT normocephalic, head/scalp atraumatic, hearing grossly normal bilaterally, nasal mucous membranes and turbinates normal and moist oral mucous membranes Eyes PERRL, EOMs intact bilaterally and conjunctivae normal Neck full ROM Chest inspection of chest normal Resp normal respiratory effort, normal air movement, no use of accessory muscles and clear to auscultation bilaterally Cardio regular rate, regular rhythm, no murmurs and peripheral pulses 2+ throughout GI normal to inspection, nondistended, normoactive bowel sounds, soft to palpation, non-tender and non-distended Back/Spine normal ROM Extremity normal to inspection, full ROM and no pedal edema Skin no rashes or lesions noted Psych mental status grossly normal Results Lab / Micro Data 06/28/25 17:27 06/28/25 17:27 Labs: Laboratory Results - last 24 hr 06/28/25 17:27: WBC 14.7 H, RBC 5.66, Hgb 16.6 H, Hct 50.9, MCV 89.9, MCH 29.3, MCHC 32.6, RDW Std Deviation 42.2, RDW Coeff of Adele 12.9, Plt Count 213, MPV 11.9, Immature Gran % (Auto) 1.600 H, Neut % (Auto) 69.4, Lymph % (Auto) 18.0 L, [place] % (Auto) 7.1, Eos % (Auto) 2.5, Baso % (Auto) 1.4 H, Absolute Neuts (auto) 10.2 H, Absolute Lymphs (auto) 2.65, Nucleated RBC % 0, PT 13.4, INR 1.0, APTT 30.5, Sodium 141, Potassium 3.8, Chloride 101, Carbon Dioxide 25.7, Anion Gap 15, BUN 23 H, Creatinine 1.77 H, Estim Creat Clear Calc 39.52 L, Est GFR (MDRD) Non-Af 41 L, BUN/Creatinine Ratio 12.7, Glucose 153 H, Calcium 9.7, Troponin T High Sens 236 H* Imaging Radiology Impression Chest X-Ray 06/28/25 18:00 IMPRESSION: No Acute Findings. Reading Location: [id number] Assessment & Plan Assessment/Plan (1) NSTEMI, initial episode of care: PLAN: Plan Patient is a 70-year-old male who presented to [facility] ED on 06/28/2025 with chest pain and shortness of breath with exertion. 1. NSTEMI ? Admit under inpatient status to ICU. Cardiology consulted. Presented with intermittent chest pain and shortness of breath with exertion for about 1 week. Initial troponin 236. EKG showed significant ST depressions in the inferior and lateral leads. Appears consistent with NSTEMI type I. Continue heparin drip and nitroglycerin drip that were started in the ED. N.p.o. midnight with plan for left heart cath tomorrow morning. Echocardiogram ordered. Lipid panel, A1c and TSH ordered. Appreciate further cardiology recommendations. 2. Elevated creatinine level ? Creatinine 1.77 on admit. Last creatinine level was 1.1 back in 2021 and this was his baseline for many years. Suspect prerenal SHASHA due to NSTEMI as above. Patient reports no difficulty with urination recently. Will hold on IV fluids for now and treat as above. Follow-up a.m. BMP and monitor urine output. 3. Leukocytosis ? WBC count 14K on admit. Suspect secondary to stress state in setting of NSTEMI as above. No other infectious symptoms noted. Follow-up a.m. CBC. 4. Elevated BP readings ? BP elevated to the 140s to 150s systolic on admit. IV hydralazine as needed ordered for SBP greater than 170. Further management as above. 5. Essential tremor, torticollis ? Reports essential tremor for the past 7 to 8 years. He was prescribed propranolol but states it does not help him so he has not taken it for some time. Also has torticollis that per PCP has been managed with Botox injections in the past. No inpatient needs, continue outpatient follow-up. 6. Tobacco use disorder ? Current smoker, smokes about 1 pack of cigarettes per day. Has smoked for about 50 years. Nicotine patch in place per patient request. Discussed cessation on discharge. 7. COPD ? Stable on room air on rest on admit. Per recent PCP note in January, patient refuses to do PFTs and declines pulmonology referral. He is only intermittently compliant with his home inhaler. Continue home long-acting inhaler while inpatient. DVT prophylaxis: Not indicated, on heparin drip CODE STATUS: Full code, verified Expected disposition: Home, TBD Total clinical time spent by myself addressing the patient's medical issues, reviewing all the data, and collaborating with patient's care team: 76 minutes. Charges/Coding Visit Charges Inpatient E&M: 95486 Init Hosp L3
--- NOTE | 2025-06-28 19:30 | ECHOCS_ITS ---
Reason For Study Reason For Study: CHEST PAIN Procedure This was a 2D Doppler, Color Flow transthoracic echocardiogram. The patient is in sinus rhythm. Contrast injection was performed. Exam performed portable in ICU/CCU. Left Ventricle Normal LV size. The left ventricular ejection fraction is 35 %. Moderate segmental systolic dysfunction (see wall motion). Mid-Anterior : Akinetic. Anterior [place] : Severely Hypokinetic. Septal [place] : Akinetic. Mid-Lateral : Hypokinetic. There are regional wall motion abnormalities as specified. The rest of the wall segments are normal. Right Ventricle Normal RV size. Normal systolic function. Atria Normal left atrium. Normal right atrium. Mitral Valve Normal mitral valve. Tricuspid Valve Normal tricuspid valve. Aortic Valve Trisinus/trileaflet aortic valve. Mild focal aortic valve calcification. Pulmonic Valve Normal pulmonic valve. Great Vessels Normal aortic root. The pulmonary artery is normal size. Inferior vena cava collapse with respiration. Pericardium/Pleural No pericardial effusion. Medication Diluted definity 4ml given slow IV push to enhance endocardial definition. MMode/2D Measurements & Calculations LVIDd: 4.3 cm IVSd: 1.2 cm LVOT diam: 2.0 cm LVIDs: 3.1 cm LVPWd: 1.1 cm RVDd: 2.8 cm FS: 28.1 % LVOT area: 3.1 cm2 Ao root diam: 2.7 cm LAV(MOD-bp): 31.3 ml LVAd ap4: 28.3 cm2 LAV(MOD-bp) Indexed: 16.6 ml/m2 LVLd ap4: 7.9 cm LAV(MOD-sp2): 31.9 ml EDV(MOD-sp4): 80.3 ml LAV(MOD-sp4): 28.8 ml EDV(sp4-el): 85.9 ml LVAs ap4: 21.4 cm2 LVLs ap4: 7.2 cm ESV(MOD-sp4): 51.1 ml ESV(sp4-el): 54.1 ml EF(MOD-sp4): 36.4 % EF(sp4-el): 37.0 % LVAd ap2: 27.1 cm2 SV(MOD-sp4): 29.2 ml SV(MOD-sp2): 26.9 ml LVLd ap2: 7.4 cm SI(MOD-sp4): 15.6 ml/m2 SI(MOD-sp2): 14.3 ml/m2 EDV(MOD-sp2): 80.7 ml EDV(sp2-el): 84.2 ml LVAs ap2: 21.1 cm2 LVLs ap2: 6.8 cm ESV(MOD-sp2): 53.8 ml ESV(sp2-el): 56.0 ml EF(MOD-sp2): 33.3 % SV(sp4-el): 31.8 ml Ao sinus diam: 3.1 cm LA A4 area: 12.7 cm2 LA dimension(2D): 3.5 cm RA A4 area: 10.2 cm2 TAPSE: 1.4 cm Time Measurements MV dec time: 0.23 sec Doppler Measurements & Calculations MV E max christopher: 62.7 cm/sec Lat Peak E' Christopher: 6.9 cm/sec Med Peak E' Christopher: 5.7 cm/sec MV A max christopher: 96.5 cm/sec E/E' lat: 9.1 E/E' med: 11.1 MV E/A: 0.65 Ao V2 max: 149.2 cm/sec LV V1 max: 100.1 cm/sec MV dec slope: 267.8 cm/sec2 Ao max P.9 mmHg LV V1 max P.0 mmHg Ao V2 mean: 116.6 cm/sec LV V1 mean P.1 mmHg Ao mean P.8 mmHg LV V1 mean: 67.3 cm/sec Ao V2 VTI: 29.3 cm LV V1 VTI: 22.3 cm AV (velocity ratio): 0.76 MIKE(I,D): 2.4 cm2 MIKE(V,D): 2.1 cm2 SV(LVOT): 69.1 ml PA V2 max: 79.0 cm/sec ECHO/Echo Complete W/ Contrast Interpretation Summary The left ventricular ejection fraction is 35 %. Normal LV size. Moderate segmental systolic dysfunction (see wall motion). Ordering Physician: Bill Lew Referring Physician: Marybeth Thomas M.D. Performed By: Pina Uribe RDCS
[2025-06-28] MEDS: Heparin Injection (Vial) 5,000 UNIT/ML VIAL 4000 UNIT IV (19:35)
[2025-06-28] MEDS: Nitroglycerin Infusion 250 ML 3 MG CONT INF (19:36)
[2025-06-28] MEDS: HEPARIN/D5w 25,000 UNITS 25,000 UNITS/250 ML IV.SOLN. 8.9 UNITS CONT INF (19:37)
--- OUTSIDE RECORDS SUMMARY | 2025-06-28 19:47 | XMS RPT_ITS | CCD ---
Author Organization [facility] ion [facility] Care Team Providers [place] Scaler Name Role Phone MarthaShirinMarybeth Unavailable Kamilah Tesfaye Unavailable Unavailab le Putnam IIIDarius P Unavailable Selene Arriola Unavailable Darius Shannon Unavailable Selene Lopez Unavailable Patrick Dunn Unavailable [phone] Pilar Del Angel Unavailable Unavailable Marilynn Wallace [...] Unavailable Unavailable Kathleen III, Darius P Unavailable [phone] Amber Juarez Unavailable Unavailable PeabodyIII, Darius P Unavailable Marybeth Thomas DO Unavailable [phone] Kamilah Tesfaye Unavailable Unavailab le Kathleenyuko SIMON MD , Darius Hudson Unavailable Selene Arriola MD Unavailable Darius Shannon MD Unavailable [facility], Selene Giron Unavailable Mona GABRIEL, Patrick Kuo Unavailable Larry ESCOTON, Amber Unavailable Unavailable Cain GARCIA, Kevin Unavailable Unavailable Marilynn Wallace RN Unavailable Unavailable [facility]ius CLOCK AND WATCH HANDS PAINTER, Stacy Unavailable Unavailable [place] CLOCK AND WATCH HANDS PAINTER, Pastora Unavailable Unavailable Unavailable Unavailable Marybeth Thomas Primary Care Provider Marybeth Thomas DO Unavailable Kamilah Tesfaye Unavailable Unavailab patricia Wang III, MD , Darius Hudson Unavailable Krishan REAGAN MD, Selene Giron Unavailable Mirtha GABRIEL, Darius Hudson Unavailable [facility], Selene Giron Unavailable Patrick Dunn MD Unavailable Slarb PUNCH MACHINE HAND, Breana Unavailable Unavailable Cain GARCIA, Kevin Unavailable Unavailable [facility] CLOCK AND WATCH HANDS PAINTER, Stacy Unavailable Unavailable Marilynn Wallace RN Unavailable Unavailable Cross PUNCH MACHINE HAND, Amber Unavailable Unavailable [place]ak CLOCK AND WATCH HANDS PAINTER, Pastora Unavailable Unavailable Unavailable Unavailable Marybeth Thomas DO Unavailable [place] PUNCH MACHINE HAND, Leann Unavailable Unavailable [place] CLOCK AND WATCH HANDS PAINTER, Kayela Unavailable Unavailable Dr. Marybeth Thomas Primary Care Provider Dr. Carlos Alberto Jackson Attending Provider [phone] Dr. Dean Castillo Referring Provider Marybeth Thomas DO Attending Unavailable Fast DO, Beryl A Referring Unavailable Marybeth Thomas DO Consulting Unavailable Marybeth Thomas Primary Care Provider [phone] Marybeth Thomas DO Primary Care Provider Irma Florez MA Unavailable Unavailable Francesca PUNCH MACHINE HAND, Jose Unavailable Unavailable Dr. Kwabena Paz Unavailable Dr. Marybeth Thomas DO Primary Care Provider Gayle Ravi Attending Provider [place], Gayle Referring Provider [phone] Dean Castillo Attending Unavailable Dean Castillo Referring Unavailable Marybeth Thomas Primary Care Unavailable [place], Gayle Attending Unavailable [place], Gayle Referring Unavailable Marybeth Thomas Primary Care [...] HYDROcodone; Translations: [hydrocodone bitartrate] Drug Allergy 0 [facility] (19 sources) Acetaminophen / HYDROcodone Drug Allergy 3 [facility] Audit (18 sources) Serotonin Drug Allergy 3 [facility] NEGATED: Highlighted row has been ruled out! [...] 1:00am TREMORS take 2 tablets by mo [facility] twice daily Primidone 50 MG Oral Tablet [...] ug by inhal ation once daily Tiotropium [place] (Spiriva Respimat) 2.5 mcg/actuation Mist Active 1 NMA INHALATION DAILY June 15, 2022 1:00am Start: 06-15-2022 take 1 puff(s) by in halation once daily Tiotropium [place] (Spiriva Respimat) 2.5 mcg/actuation Mist Active 1 [...] 10-05-2017 End: 10-26-2018 take 1 tablet by [facility] three times daily trihexyphenidyl (ARTANE) 5 MG [...] and due to atherosclerosis; Translations: [Atherosclerosis of [place] arteries of extremities with intermittent claudication, bilateral [...] Comment on above: X3 LAST 2021 AT [facility] Urinary tract infections (20 sources) Urinary tract infections Results Test Name Value Interpretation Reference Range Facility 36on 05-31-2025 36 Lm for patient to ca ll the office back, patient is over due for a follow up. In order to refill medication he needs to come in for an appointment, please schedule when he calls back. Normal [facility] 36on 05-30-2025 36 Lm for patient to ca ll the office back, patient is over due for a follow up. In order to refill medication he needs to come in for an appointment, please schedule when he calls back. Normal [facility] 36on 05-29-2025 36 Lm for patient to ca ll the office back, patient is over due for a follow up. In order to refill medication he needs to come in for an appointment, please schedule when he calls back. Normal [facility] 36 Last ov- 03/16/24 Next ov- n/a Normal [facility] PSA,Total- Diagnosticon 02-22 PSA, DIAGNOSTIC < 0.02 Normal 0.00-4.00 [facility] Comment on above: Result Comment: This test was performed using the [employer] tPSA method. Measured values of a patient??sample can vary depending on the testing procedure used. PSA values determined on patient samples by different testing procedures cannot be used interchangeably. If there is a change in PSA assays while monitoring therapy, sequential testing should be performed to confirm baseline values. Performed By: #### L 501.9940 #### [facility] Laboratory [address] [place], [address] PSA,Total- Diagnosticon 08-25 PSA, DIAGNOSTIC < 0.01 Normal 0.0-4.0 [facility] Comment on above: Result Comment: This test was performed using the TPSA assay method for the [employer] system. Values obtained with different assay methods cannot be used interchangably. When changing PSA assays in the course of monitoring a patient, additional sequential testing should be carried out to confirm baseline values. Performed By: #### L 501.9940 #### [facility] [address] [place], [address] Basophil percentageOrdered B y: Dean Castillo on 08-20-2023 Basophil percentage < 0.01 ng/mL 0.0-4.0 [facility] Comment on above: This test was perfor med using the TPSA assay method for theDimension chemistry system. Values obtained with differentassay methods cannot be used interchangably.When changing PSA assays in the course of monitoring apatient, additional sequential testing should be carriedout to confirm baseline values. CALCIFEDIOL ([id number])Ordered B y: Computer Specialist on 01-31-2023 25-hydroxyvitamin D [Mass/Vol] 40.6 ng/mL Normal 30.0-100.0 [facility]; [facility] Work Phone: CBC with auto diff ([id number])Or dered By: Computer Specialist on 01-31-2023 Basophils (Bld) [#/Vol] 0.2 10*3/uL [...] [facility] Work Phone: HGB A1C ([id number])Ordered By: Kaylynn ystem Trimmer Sawyer on 01-31-2023 HbA1c (Bld) [Mass fraction] 5.5 % Normal 4.8-5.6 [facility]; [facility] Work Phone: LIPID PANEL ([id number])Ordered B y: Computer Specialist on 01-31-2023 Cholesterol [Mass/Vol] 214 mg/dL Abnormal 100-199 [facility]; [facility] Work Phone: Cholesterol in HDL [Mass/Vol] 30 mg/dL Abnormal [facility]; [facility] Work Phone: Triglyceride [Mass/Vol] 144 mg/dL Normal 0-149 [facility]; [facility] Work Phone: LIPID PANEL ([id number]) 27 mg/dL Normal 5-40 [facility]; [facility] Work Phone: LIPID PANEL ([id number]) 157 mg/dL Abnormal 0-99 [facility] Internal Medicine; [facility] Medicine Work Phone: LIPID PANEL ([id number]) 5.2 {ratio} Abnormal 0.0-3.6 [facility] Internal Medicine; [facility] Medicine Work Phone: METABOLIC PANEL, COMPREHENSI VE ([id number])Ordered By: Computer Specialist on 01-31-2023 Albumin [Mass/Vol] 4.3 g/dL Normal 3.9-4.9 [facility] Internal Medicine; [facility] Work Phone: Albumin/Globulin [Mass ratio] 1.8 {ratio} Normal 1.2-2.2 [facility] Internal Medicine; [facility] Work Phone: ALP [Catalytic activity/Vol] 113 U/L Normal 44-121 [facility] Internal Medicine; [facility] Work Phone: ALT [Catalytic activity/Vol] 26 U/L Normal 0-44 [facility] Internal Medicine; [facility] Work Phone: AST [Catalytic activity/Vol] 19 U/L Normal 0-40 [facility]; [facility] Work Phone: Bilirubin [Mass/Vol] 0.4 mg/dL Normal 0.0-1.2 [facility] Internal Medicine; [facility] Work Phone: Calcium [Mass/Vol] 9.2 mg/dL Normal 8.6-10.2 [facility] Internal Medicine; [facility] Medicine Work Phone: Chloride [Moles/Vol] 104 mmol/L Normal 96-106 [facility]; [facility] Work Phone: CO2 [Moles/Vol] 22 mmol/L Normal 20-29 [facility]; [facility] Work Phone: Creatinine [Mass/Vol] 1.32 mg/dL Abnormal 0.76-1.27 [facility]; [facility] Work Phone: Globulin (S) [Mass/Vol] 2.4 g/dL Normal 1.5-4.5 [facility]; [facility] Work Phone: Glucose [Mass/Vol] 98 mg/dL Normal 70-99 [facility]; [facility] Work Phone: Potassium [Moles/Vol] 4.9 mmol/L Normal 3.5-5.2 [facility]; [facility] Work Phone: Protein [Mass/Vol] 6.7 g/dL Normal 6.0-8.5 [facility]; [facility] Work Phone: Sodium [Moles/Vol] 142 mmol/L Normal 134-144 [facility]; [facility] Work Phone: Urea nitrogen [Mass/Vol] 18 mg/dL Normal 8-27 [facility]; [facility] Work Phone: Urea nitrogen/Creatinine [Mass ratio] 14 mg/mg Normal 10-24 [facility]; [facility] Work Phone: METABOLIC PANEL, COMPREHENSIVE ([id number]) 59 mL/min/1.73 Abnormal [facility]; [facility] Work Phone: MICROALBUMINOrdered By: Syst em Trimmer Sawyer on 01-31-2023 Albumin DL <= 20 mg/L [...] Specific Antigen Total < 0.01 ng/mL 0.0-4.0 [facility] Comment on above: This test was perfor med using the TPSA assay method for the[employer]ension chemistry system. Values obtained with differentassay methods cannot be used interchangably.When changing PSA assays in the course of monitoring apatient, additional sequential testing should be carriedout to confirm baseline values. No Panel InformationOrdered By: Dr. Castillo on 08-26-2022 Prostate Specific Antigen Total < 0.01 ng/mL 0.0-4.0 [facility] Comment on above: This test was perfor [...] Medicine; [facility] Work Phone: CALCIFIDIOL ([id number]) VIT D 25 Ordered By: Computer Specialist on 08-20-2022 25-hydroxyvitamin D [Mass/Vol] 38.2 ng/mL Normal 30.0-100.0 [facility]; [facility] Work Phone: CBC W/AUTO DIFF WBC ([id number])O rdered By: Computer Specialist on 08-20-2022 Basophils (Bld) [#/Vol] 0.1 10*3/uL [...] Internal Medicine Work Phone: HgA1C , Office ([id number])Ordere d By: Suzie Leiva on 08-20-2022 HbA1c (Bld) [Mass fraction] 5.4 % Normal 4.6 - 7.1 [facility]; [facility] Work Phone: LIPID PANEL ([id number])Ordered B y: Computer Specialist on 08-20-2022 Cholesterol [Mass/Vol] 234 mg/dL Abnormal 100-199 [facility]; [facility] Work Phone: Cholesterol in HDL [Mass/Vol] 39 mg/dL Abnormal [facility]; [facility] Work Phone: Triglyceride [Mass/Vol] 172 mg/dL Abnormal 0-149 [facility]; [facility] Work Phone: LIPID PANEL ([id number]) 32 mg/dL Normal 5-40 [facility]; [facility] Work Phone: LIPID PANEL ([id number]) 163 mg/dL Abnormal 0-99 [facility]; [facility] Work Phone: LIPID PANEL ([id number]) 4.2 {ratio} Abnormal 0.0-3.6 [facility] Internal [facility]; [facility] Work Phone: METABOLIC PANEL, COMPREHENSI VE ([id number])Ordered By: Computer Specialist on 08-20-2022 Albumin [Mass/Vol] 4.8 g/dL Normal 3.8-4.8 [facility] Internal Medicine; [facility] Work Phone: Albumin/Globulin [Mass ratio] 2.0 {ratio} Normal 1.2-2.2 [facility] Internal Medicine; [facility] Work Phone: ALP [Catalytic activity/Vol] 103 U/L Normal 44-121 [facility]; [facility] Work Phone: ALT [Catalytic activity/Vol] 32 U/L Normal 0-44 [facility] Internal [facility]; [facility] Work Phone: AST [Catalytic activity/Vol] 24 U/L Normal 0-40 [facility]; [facility] Work Phone: Bilirubin [Mass/Vol] 0.5 mg/dL Normal 0.0-1.2 [facility] Internal Medicine; [facility] Work Phone: Calcium [Mass/Vol] 9.4 mg/dL Normal 8.6-10.2 [facility] Internal Medicine; [facility] Work Phone: Chloride [Moles/Vol] 99 mmol/L Normal 96-106 [facility] Internal Medicine; [facility] Work Phone: CO2 [Moles/Vol] 24 mmol/L Normal 20-29 [facility] Internal Medicine; [facility] Work Phone: Creatinine [Mass/Vol] 1.21 mg/dL Normal 0.76-1.27 [facility]; [facility] Work Phone: Globulin (S) [Mass/Vol] 2.4 g/dL Normal 1.5-4.5 [facility]; [facility] Work Phone: Glucose [Mass/Vol] 90 mg/dL Normal 70-99 [facility] Internal Medicine; [facility] Work Phone: Potassium [Moles/Vol] 4.7 mmol/L Normal 3.5-5.2 [facility]; [facility] Work Phone: Protein [Mass/Vol] 7.2 [...] [facility] Work Phone: METABOLIC PANEL, [facility] ([phone]) 65 mL/min/1.73 Normal [facility]; [facility] Work Phone: MICROALBUMINOrdered By: SpearFysh em Trimmer Sawyer on 08-20-2022 Albumin DL <= 20 mg/L (U) [Mass/Vol] 24.2 ug/mL Normal [facility]; [facility] Work Phone: Albumin/Creatinine (U) [Mass ratio] 16 {mg/g_creat} Normal 0-29 [facility]; [facility] Work Phone: Creatinine (U) [Mass/Vol] 154.2 mg/dL Normal [facility]; [facility] Work Phone: TSH ([id number])Ordered By: SpearFyshe m Trimmer Sawyer on 08-20-2022 TSH Qn 1.700 {uIU/mL} Normal 0.450-4.50 0 [facility]; [facility] Work Phone: URINALYSIS, W/ MICRO ([id number]) Ordered By: Computer Specialist on 08-20-2022 Appearance (U) Clear Normal Comprehens [...] (U) Negative Normal Comprehens [facility]ien Internal Medicine; [facility] Work Phone: pH (U) 6.0 [pH] Normal 5.0-7.5 [facility]; [facility] Work Phone: Protein Ql (U) Trace Normal [facility]; [facility] Work Phone: Specific gravity (U) [Rel density] 1.018 1 Normal 1.005-1.03 0 [facility]; [facility] Work Phone: Urobilinogen (U) [Mass/Vol] 0.2 mg/dL Normal 0.2-1.0 [facility]; [facility] Work Phone: Basophil percentageOrdered B y: Dr. Castillo on 05-18-2022 Chloride [Moles/Vol] 107 mmol/L 98-107 [facility] Glucose [Mass/Vol] 93 mg/dL 74-106 [facility] Potassium [Moles/Vol] 4.2 mmol/L 3.5-5.1 [facility] Sodium [Moles/Vol] 137 mmol/L 136-145 [facility] WBC (Bld) [#/Vol] 12.6 10*3/uL 4.4-11.0 [facility] Blood erythrocytes count (nu mber/volume)Ordered By: Dr. Castillo on 05-18-2022 RBC (Bld) [#/Vol] 5.29 10*6/uL 4.6-6.2 [facility] Blood hemoglobin measurement (mass/volume)Ordered By: Dr. Castillo on 05-18-2022 Hemoglobin (Bld) [Mass/Vol] 16.6 g/dL 13.0-16.5 [facility] Blood platelet mean volumeOr dered By: Dr. Castillo on 05-18-2022 Platelet mean volume (Bld) [Entitic vol] 10.6 fL 6.2-12.0 [facility] Determination of erythrocyte mean corpuscular volume (MCV)Ordered By: Dr. Castillo on 05-18-2022 MCV (RBC) [Entitic vol] 90.2 fL 80-94 [facility] Hematocrit Auto (Bld) [Volum e fraction]Ordered By: Dr. Castillo on 05-18-2022 Hematocrit (Bld) [Volume fraction] 47.7 % 40-54 [facility] Laboratory - Chemistry and C hemistry - challengeOrdered By: Dr. Castillo on 05-18-2022 CO2 [Moles/Vol] 26.0 mmol/L 21.0-32.0 [facility] Urea nitrogen/Creatinine [Mass ratio] 13.8 mg/mg 10-20 [facility] Laboratory - Hematology and Cell countsOrdered By: Dr. Castillo on 05-18-2022 Erythrocyte distribution width (RBC) [Entitic vol] 41.8 fL 35.1-43.9 [facility] Erythrocyte distribution width (RBC) [Ratio] 12.7 % 11.6-14.6 [facility] MCH (RBC) [Entitic mass] 31.4 pg 27.0-32.0 [facility] MCHC Auto (RBC) [Mass/Vol]Or dered By: Dr. Castillo on 05-18-2022 MCHC (RBC) [Mass/Vol] 34.8 g/dL 32-36 [facility] No Panel InformationOrdered By: Dr. Castillo on 05-18-2022 Estimated GFR (MDRD) Amer 81 mL/min >60 [facility] Comment on above: GFR Calc Estimated GFR (MDRD) Non-Af Amer 67 mL/min >60 [facility] Comment on above: Non- GFR Calc Platelets bldOrdered By: Dr. Castillo on 05-18-2022 Platelets (Bld) [#/Vol] 206 10*3/uL 150-450 [facility] Serum or plasma calcium yumiko urement (mass/volume)Ordered By: Dr. Castillo on 05-18-2022 Calcium [Mass/Vol] 9.0 mg/dL 8.5-10.1 [facility] Serum or plasma creatinine m easurement (mass/volume)Ordered By: Dr. Castillo on 05-18-2022 Creatinine [Mass/Vol] 1.16 mg/dL 0.70-1.30 [facility] Comment on above: The validity of the calculated GFR & GFRAA in patients over 70 years has not been determined. Clinical correlation is essential. Serum or plasma urea nitroge n measurement (mass/volume)Ordered By: Dr. Castillo on 05-18-2022 Urea nitrogen [Mass/Vol] 16 mg/dL 7-18 [facility] Thin prep Papanicolaou smear with manual screeningOrdered By: Dr. Castillo on 05-18-2022 Thin prep Papanicolaou smear with manual screening 4 5-15 [facility] Basophil percentageOrdered B y: Dr. Castillo on 05-13-2022 Creatinine [Mass/Vol] 1.4 mg/dL 0.70-1.30 [facility] Laboratory - Chemistry and C hemistry - challengeOrdered By: Dr. Castillo on 05-13-2022 GFR/1.73 sq M.predicted among non-blacks MDRD (S/P/Bld) [Vol rate/Area] 54.0000 mL/min/{1.73_m2} >60 [facility] CALCIFEDIOL ([id number])Ordered B y: Computer Specialist on 01-29-2022 25-hydroxyvitamin D [Mass/Vol] 33.0 ng/mL Normal 30.0-100.0 [facility]; [facility] Work Phone: HgA1C , Office ([id number])Ordere d By: Leann Aquino on 01-29-2022 HbA1c (Bld) [Mass fraction] 5.3 % Normal 4.6 - 7.1 [facility]; [facility] Work Phone: PSA (PROSTATE SPECIFIC ANTIG EN) (V76.44)Ordered By: Computer Specialist on 01-29-2022 Prostate specific Ag [Mass/Vol] 9.4 ng/mL Abnormal 0.0-4.0 [facility]; [facility] Work Phone: HgA1C , Office ([id number])Ordere d By: Stacy Jensen on 10-21-2021 HbA1c (Bld) [Mass fraction] 5.3 % Normal 4.6 - 7.1 [facility]; [facility] Work Phone: CBC W/AUTO DIFF WBC ([id number])O rdered By: Computer Specialist on 10-07-2021 Basophils (Bld) [#/Vol] 0.1 10*3/uL [...] (Bld) [#/Vol] 11.3 10*3/uL Abnormal 3.4-10.8 [facility]; [facility] Work Phone: HEPATITIS C ANTIBODY ([id number]) Ordered By: Computer Specialist on 10-07-2021 HCV Ab Signal/Cutoff IA [Rel units/Vol] 0.1 {s/co_ratio} Normal 0.0-0.9 [facility]; [facility] Work Phone: LIPID PANEL ([id number])Ordered B y: Computer Specialist on 10-07-2021 Cholesterol [Mass/Vol] 149 mg/dL Normal 100-199 [facility]; [facility] Work Phone: Cholesterol in HDL [Mass/Vol] 36 mg/dL Abnormal [facility]; [facility] Work Phone: Triglyceride [Mass/Vol] 144 mg/dL Normal 0-149 [facility]; [facility] Work Phone: LIPID PANEL ([id number]) 25 mg/dL Normal 5-40 [facility]; [facility] Work Phone: LIPID PANEL ([id number]) 88 mg/dL Normal 0-99 [facility] Internal [facility]; [facility] Work Phone: LIPID PANEL ([id number]) 2.4 {ratio} Normal 0.0-3.6 [facility] Internal Medicine; [facility] Work Phone: METABOLIC PANEL, COMPREHENSI VE ([id number])Ordered By: Computer Specialist on 10-07-2021 Albumin [Mass/Vol] 4.9 g/dL Abnormal 3.8-4.8 [facility] Internal Medicine; [facility] Work Phone: Albumin/Globulin [Mass ratio] 2.5 {ratio} Abnormal 1.2-2.2 [facility] Internal [facility]; [facility] Work Phone: ALP [Catalytic activity/Vol] 107 U/L Normal 44-121 [facility]; [facility] Work Phone: ALT [Catalytic activity/Vol] 32 U/L Normal 0-44 [facility]; [facility] Work Phone: AST [Catalytic activity/Vol] 28 U/L Normal 0-40 [facility]; [facility] Work Phone: Bilirubin [Mass/Vol] 0.4 mg/dL Normal 0.0-1.2 [facility] Internal Medicine; [facility] Work Phone: Calcium [Mass/Vol] 9.7 mg/dL Normal 8.6-10.2 [facility] Internal [facility]; [facility] Work Phone: Chloride [Moles/Vol] 102 mmol/L Normal 96-106 [facility]; [facility] Work Phone: CO2 [Moles/Vol] 25 mmol/L Normal 20-29 [facility]; [facility] Work Phone: Creatinine [Mass/Vol] 1.35 mg/dL Abnormal 0.76-1.27 [facility]; [facility] Work Phone: Globulin (S) [Mass/Vol] 2.0 g/dL Normal 1.5-4.5 [facility]; [facility] Work Phone: Glucose [Mass/Vol] 95 mg/dL Normal 65-99 [facility] Internal Medicine; [facility] Work Phone: Potassium [Moles/Vol] 5.1 mmol/L Normal 3.5-5.2 [facility]; [facility] Work Phone: Protein [Mass/Vol] 6.9 g/dL Normal 6.0-8.5 [facility]; [facility] Work Phone: Sodium [Moles/Vol] 144 mmol/L Normal 134-144 [facility]; [facility] Work Phone: Urea nitrogen [Mass/Vol] 17 mg/dL Normal 8-27 [facility]; [facility] Work Phone: Urea nitrogen/Creatinine [Mass ratio] 13 mg/mg Normal 10-24 [facility]; [facility] Work Phone: METABOLIC PANEL, COMPREHENSIVE (68430) 58 mL/min/1.73 Abnormal [facility]; [facility] Work Phone: MICROALBUMINOrdered By: Syst em Trimmer Sawyer on 10-07-2021 Albumin DL <= 20 mg/L (U) [Mass/Vol] 12.8 ug/mL Normal Comprehensiv e Internal Medicine; [facility] Work Phone: Albumin/Creatinine (U) [Mass ratio] 4 {mg/g_creat} Normal 0-29 [facility]; [facility] Work Phone: Creatinine (U) [Mass/Vol] 288.5 mg/dL Normal [facility]; [facility] Work Phone: TSH (03710)Ordered By: Syste m Trimmer Sawyer on 10-07-2021 TSH Qn 1.530 {uIU/mL} Normal 0.450-4.50 0 [facility]; [facility] Work Phone: URINALYSIS, W/ MICRO ([phone]) Ordered By: Computer Specialist on 10-07-2021 Appearance (U) Cloudy Abnormal Comprehens [...] Internal Medicine Work Phone: HgA1C , Office ([phone])Ordere d By: Stacy Jensen on 04-06-2021 HbA1c (Bld) [Mass fraction] 5.2 % Normal 4.6 - 7.1 [facility]; [facility] Work Phone: CALCIFEDIOL ([phone])Ordered B y: Computer Specialist on 03-20-2021 25-hydroxyvitamin D [Mass/Vol] 34.5 ng/mL Normal 30.0-100.0 [facility]; [facility] Work Phone: CALCIFEDIOL ([phone])Ordered B y: Computer Specialist on 11-20-2020 25-hydroxyvitamin D [Mass/Vol] 38.2 ng/mL Normal 30.0-100.0 [facility]; [facility] Work Phone: Comment on above: Vitamin D deficiency has been defined by the [place] of[place]icine and an Endocrine Society practice guideline as alevel of serum 25-OH vitamin D less than 20 ng/mL (1,2).The Endocrine Society went on to further define vitamin Dinsufficiency as a level between 21 and 29 ng/mL (2).1. IOM ([place] of [place]). 2010. Dietary reference intakes for calcium and D. [place]: The National Academies Press.2. Rayna MF, Ana Luisa HASSAN, William CUBA, et al. Evaluation, treatment, and prevention of vitamin D deficiency: an Endocrine Society clinical practice guideline. JCEM. 2010; 96(7):1911-30. Test(s) 641604-PJI-G ; 978173-ISM-G; 089399-Lifjryodizstl; 026642-Abmmivqscoe, Total; 624857-UZU-O (Total); 063471-Jpbnn LDL-P; 013076-PAP Size; 415195-CU-YO Scorewas developed and its performance characteristics determinedby [facility]. It has not been cleared or approved by the Foodand Drug Administration.PATIENT WAS FASTINGPERFORMED BY: CoachUp[address] [id number] BY: [employer] Netnui.comFrye Regional Medical [facility] [id number] CBC with auto diff (47906)Or dered By: Computer Specialist on 11-20-2020 Basophils (Bld) [#/Vol] 0.1 10*3/uL Normal 0.0-0.2 [facility]; [facility] Work Phone: Comment on above: Test(s) 738119-XFY-N ; 117573-MHB-J; 539918-Dqzmaxyqhwgom; 520430-Ricfoayjezz, Total; 537974-XWJ-U (Total); 010300-Rnpxk LDL-P; 971752-NZQ Size; 774666-ZD-GS Scorewas developed and its performance characteristics determinedby sezmi. It has not been cleared or approved by the Foodand Drug Administration.PATIENT WAS FASTINGPERFORMED BY: [employer] [address] [id number] BY: [employer]6370 Keystone RV CompanyFrye Regional Medical Center [facility] [id number] Basophils/100 WBC (Bld) 1 % Normal [facility]; [facility] Work Phone: Comment on above: Test(s) 545577-EPE-L ; 846409-WLK-R; 291179-Ehnicpdootkfr; 658870-Vnseeafiruo, Total; 782685-PJM-I (Total); 392373-Xhhuy LDL-P; 753149-OMZ Size; 991754-UE-DH Scorewas developed and its performance characteristics determinedby sezmi. It has not been cleared or approved by the Foodand Drug Administration.PATIENT WAS FASTINGPERFORMED BY: [employer] [address] [id number] BY: ClassOwllin6370 [facility] [id number] Eosinophils (Bld) [#/Vol] 0.2 10*3/uL Normal 0.0-0.4 [facility]; [facility] Work Phone: Comment on above: Test(s) 203195-ODJ-N ; 576248-QPU-U; 623810-Upokvfcuhuedk; 579404-Eudqzahsoyn, Total; 277070-QNH-A (Total); 266069-Vdbfx LDL-P; 535282-NCI Size; 479030-ZT-ZV Scorewas developed and its performance characteristics determinedby sezmi. It has not been cleared or approved by the Foodand Drug Administration.PATIENT WAS FASTINGPERFORMED BY: [employer] [address] [id number] BY: [employer] Ourvlp1401 [facility] [id number] Eosinophils/100 WBC (Bld) 2 % Normal [facility]; [facility] Work Phone: Comment on above: Test(s) 855362-YFZ-E ; 430317-SQR-P; 135312-Aybffkyifjsyq; 380701-Gbkujqojhgs, Total; 220248-TYI-Q (Total); 265662-Cxzxk LDL-P; 025453-TZN Size; 200505-TR-BA Scorewas developed and its performance characteristics determinedby sezmi. It has not been cleared or approved by the Foodand Drug Administration.PATIENT WAS FASTINGPERFORMED BY: [employer] [address] [id number] BY: [employer] Bapihy3086 [facility] [id number] Erythrocyte distribution width (RBC) [Ratio] 12.8 % Normal 11.6-15.4 [facility]; [facility] Work Phone: Comment on above: Test(s) 228659-CBE-W ; 210279-TQH-A; 325161-Mtxvkcfsmxlin; 500095-Qrmafaheflf, Total; 339152-VXI-L (Total); 989945-Hgwjd LDL-P; 555956-RHR Size; 433548-PF-EX Scorewas developed and its performance characteristics determinedby sezmi. It has not been cleared or approved by the Foodand Drug Administration.PATIENT WAS FASTINGPERFORMED BY: [employer] [address] [id number] BY: SabakatHackensack University Medical CenterLzjtub84[address] [place] OperandiLifeBrite [facility] [id number] Hematocrit (Bld) [Volume fraction] 45.2 % Normal 37.5-51.0 [facility]; [facility] Work Phone: Comment on above: Test(s) 841977-DMP-V ; 721604-DIQ-C; 561379-Tgamxwjhsvuya; 430984-Eeipjhkxofr, Total; 061882-KIF-J (Total); 059648-Rijmr LDL-P; 704075-JEX Size; 007795-OU-DT Scorewas developed and its performance characteristics determinedby sezmi. It has not been cleared or approved by the Foodand Drug Administration.PATIENT WAS FASTINGPERFORMED BY: [employer] [address] [id number] BY: [employer]6370 Clayton[facility] [id number] Hemoglobin (Bld) [Mass/Vol] 15.6 g/dL Normal 13.0-17.7 [facility]; [facility] Work Phone: Comment on above: Test(s) 228647-HST-P ; 200367-RPX-E; 479064-Nslffgydyfhpz; 063398-Jxasotbivil, Total; 907992-ISP-U (Total); 784680-Afovw LDL-P; 423557-DFU Size; 269558-ZS-RA Scorewas developed and its performance characteristics determinedby sezmi. It has not been cleared or approved by the Foodand Drug Administration.PATIENT WAS FASTINGPERFORMED BY: [employer] [address] [id number] BY: ClassOwllin6370 [facility] [id number] Immature granulocytes (Bld) [#/Vol] 0.1 10*3/uL Normal 0.0-0.1 [facility]; [facility] Work Phone: Comment on above: Test(s) 389326-ZMU-S ; 914519-FUX-B; 451603-Ftnubvadwxuwb; 680660-Glllyfojvpc, Total; 972571-UJL-A (Total); 755302-Ubabs LDL-P; 381785-XOT Size; 873442-XM-TR Scorewas developed and its performance characteristics determinedby sezmi. It has not been cleared or approved by the Foodand Drug Administration.PATIENT WAS FASTINGPERFORMED BY: [employer] [address] [id number] BY: Ungalli70 Clayton[facility] [id number] Immature granulocytes/100 WBC (Bld) 1 % Normal [facility]; [facility] Work Phone: Comment on above: Test(s) 795333-RZL-J ; 055224-SUK-F; 380822-Gzzvkpcmkkgox; 147338-Wqobbayhzgx, Total; 284583-RYH-D (Total); 194155-Cfszf LDL-P; 810955-DEJ Size; 343253-FY-PX Scorewas developed and its performance characteristics determinedby sezmi. It has not been cleared or approved by the Foodand Drug Administration.PATIENT WAS FASTINGPERFORMED BY: [employer] [address] [id number] BY: [employer]6370 [facility] [id number] Lymphocytes (Bld) [#/Vol] 1.7 10*3/uL Normal 0.7-3.1 [facility]; [facility] Work Phone: Comment on above: Test(s) 236176-LAU-D ; 235816-NUF-H; 851843-Zpiabsigiqqzo; 362514-Ihipiaitunx, Total; 970609-EAV-V (Total); 731056-Zknle LDL-P; 192206-FII Size; 459968-TZ-NY Scorewas developed and its performance characteristics determinedby sezmi. It has not been cleared or approved by the Foodand Drug Administration.PATIENT WAS FASTINGPERFORMED BY: [employer] [address] [id number] BY: Ungalli70 [facility] [id number] Lymphocytes/100 WBC (Bld) 17 % Normal [facility]; [facility] Work Phone: Comment on above: Test(s) 153261-NDW-Y ; 594793-NAK-I; 747217-Csoytxixbybnq; 154452-Aafabcqdkoo, Total; 837088-NIU-G (Total); 512181-Enshj LDL-P; 258468-FWD Size; 701474-VK-VS Scorewas developed and its performance characteristics determinedby sezmi. It has not been cleared or approved by the Foodand Drug Administration.PATIENT WAS FASTINGPERFORMED BY: [employer] [address] [id number] BY: [employer]6370 [facility] [id number] MCH (RBC) [Entitic mass] 31.8 pg Normal 26.6-33.0 [facility]; [facility] Work Phone: Comment on above: Test(s) 896049-DJU-T ; 565713-YNW-V; 137924-Gqcchupzkfoaf; 613736-Hputzcxkdvy, Total; 891130-NCW-A (Total); 079585-Uuklb LDL-P; 473547-DFY Size; 314564-CA-NN Scorewas developed and its performance characteristics determinedby sezmi. It has not been cleared or approved by the Foodand Drug Administration.PATIENT WAS FASTINGPERFORMED BY: [employer] [address] [id number] BY: SabakatHackensack University Medical CenterFpiueb2062 [facility] [id number] MCHC (RBC) [Mass/Vol] 34.5 g/dL Normal 31.5-35.7 [facility]; [facility] Work Phone: Comment on above: Test(s) 447137-QPQ-M ; 768995-SDE-L; 512695-Xhwszmkspjmbc; 714130-Sklbsdulwfm, Total; 061288-RJC-L (Total); 163030-Hstfr LDL-P; 202731-MLY Size; 314784-TC-BT Scorewas developed and its performance characteristics determinedby sezmi. It has not been cleared or approved by the Foodand Drug Administration.PATIENT WAS FASTINGPERFORMED BY: [employer] [address] [id number] BY: [employer] [place] Netnui.comFrye Regional Medical Center [facility] [id number] MCV (RBC) [Entitic vol] 92 fL Normal 79-97 [facility]; [facility] Work Phone: Comment on above: Test(s) 452843-UNC-G ; 074474-NEL-V; 318652-Dhgpxtwotarjq; 866512-Sjjjdkxkddb, Total; 916000-AED-K (Total); 974591-Rihlh LDL-P; 776886-DWA Size; 605532-AD-ZG Scorewas developed and its performance characteristics determinedby sezmi. It has not been cleared or approved by the Foodand Drug Administration.PATIENT WAS FASTINGPERFORMED BY: [employer] [address] [id number] BY: Ungalli70 [employer]stone RV CompanyFrye Regional Medical Center [facility] Campus [id number] Monocytes (Bld) [#/Vol] 0.6 10*3/uL Normal 0.1-0.9 [facility]; [facility] Work Phone: Comment on above: Test(s) 497839-KGU-K ; 931331-LIZ-C; 556234-Xkxuyqoadrmtx; 835725-Zdnlxgvtdko, Total; 096594-GWV-X (Total); 651530-Dxvmu LDL-P; 487403-IIN Size; 612989-KH-VR Scorewas developed and its performance characteristics determinedby sezmi. It has not been cleared or approved by the Foodand Drug Administration.PATIENT WAS FASTINGPERFORMED BY: [employer] [address] [id number] BY: [employer]6370 [facility] [id number] Monocytes/100 WBC (Bld) 7 % Normal [facility]; [facility] Work Phone: Comment on above: Test(s) 254182-FOG-K ; 547321-QFT-Q; 437540-Aeuuwvdjfdgif; 535869-Npqeyeylbpt, Total; 370717-YFU-M (Total); 468352-Hjcfu LDL-P; 276189-ZNU Size; 536574-WB-UF Scorewas developed and its performance characteristics determinedby sezmi. It has not been cleared or approved by the Foodand Drug Administration.PATIENT WAS FASTINGPERFORMED BY: [employer] [address] [id number] BY: [employer] Afgrds1959 [facility] [id number] Neutrophils (Bld) [#/Vol] 6.9 10*3/uL Normal 1.4-7.0 [facility]; [facility] Work Phone: Comment on above: Test(s) 047201-NQU-Z ; 012616-LMY-F; 363873-Slgefthmpsfub; 507613-Toomwtxnljb, Total; 220274-QFY-O (Total); 974472-Qfjkx LDL-P; 888649-RIS Size; 975894-EN-AU Scorewas developed and its performance characteristics determinedby sezmi. It has not been cleared or approved by the Foodand Drug Administration.PATIENT WAS FASTINGPERFORMED BY: [employer] [address] [id number] BY: [employer] Kmxzte4794 [facility] [id number] Neutrophils/100 WBC (Bld) 72 % Normal [facility]; [facility] Work Phone: Comment on above: Test(s) 189576-HMT-W ; 463478-RNQ-M; 617821-Azmblcjpdfygb; 492739-Fmthgrtsdwd, Total; 508193-VBF-M (Total); 458040-Qbkmb LDL-P; 839382-SDM Size; 390309-MN-LC Scorewas developed and its performance characteristics determinedby sezmi. It has not been cleared or approved by the Foodand Drug Administration.PATIENT WAS FASTINGPERFORMED BY: CoachUpton1447 [facility] [id number] BY: Sabakat Mrhgiz4059 [facility]stone RV CompanyFrye Regional Medical Center [facility] Campus [id number] Platelets (Bld) [#/Vol] 182 10*3/uL Normal 150-450 [facility]; [facility] Work Phone: Comment on above: Test(s) 933286-RZI-I ; 843453-IQY-B; 131028-Pxwirjseuyhpw; 453888-Scisomwqtnf, Total; 350492-VXB-Y (Total); 999794-Chphe LDL-P; 462109-EWV Size; 949333-ZW-JD Scorewas developed and its performance characteristics determinedby sezmi. It has not been cleared or approved by the FoodSticky Drug Administration.PATIENT WAS FASTINGPERFORMED BY: CoachUpton1447 [facility] [id number] BY: [employer] [place] Netnui.comFrye Regional Medical Center [facility] [id number] RBC (Bld) [#/Vol] 4.91 10*6/uL Normal 4.14-5.80 [facility]; [facility] Work Phone: Comment on above: Test(s) 295868-SNW-T ; 608982-OEP-P; 779615-Jycjbyrqazojs; 814462-Sjdounuujro, Total; 375977-YHI-H (Total); 289821-Hgafz LDL-P; 670051-TRQ Size; 536788-IY-EI Scorewas developed and its performance characteristics determinedby sezmi. It has not been cleared or approved by the Foodand Drug Administration.PATIENT WAS FASTINGPERFORMED BY: [employer] Ujeyshaxsl3951 [facility] [id number] BY: ClassOwllin6370 [facility] [id number] WBC (Bld) [#/Vol] 9.6 10*3/uL Normal 3.4-10.8 [facility] Internal Medicine; [facility] Work Phone: Comment on above: Test(s) 176044-GEH-N ; 319368-LEK-C; 601527-Pyqeqaljsanry; 692303-Taljfupmlpl, Total; 122841-LWC-E (Total); 647977-Cqqlo LDL-P; 384965-BNV Size; 700650-JR-WD Scorewas developed and its performance characteristics determinedby sezmi. It has not been cleared or approved by the Foodand Drug Administration.PATIENT WAS FASTINGPERFORMED BY: BN [facility] Cowedrcvld3897 [facility] [id number] BY: CB [facility] Emnpze2937 [facility] [id number] CR Spine Cervical Comp w/ Ob liques/Flexon 11-20-2020 CR Spine Cervical Comp w/ Obliques/Flex Patient Name: VISHAL CISNEROS Diagnostic Radiology ACCESSION EXAM DATE/TIME 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 [id number] 11/20/2020 12:03 EDT CR Spine Cervical Comp CHRISTINE TESFAYE w/ Obliques CPT code 21469 Reason For Exam (CR Spine Cervical Comp [...] Transcribed Date and Time: 11/24/2020 1:29 Normal [facility] HGB A1C (36189)Ordered By: S ystem Trimmer Sawyer on 11-20-2020 HbA1c (Bld) [Mass fraction] 5.4 % Normal 4.8-5.6 [facility]; [facility] Work Phone: Comment on above: . Prediabetes: 5.7 - 6.4 Diabetes: >6.4 Glycemic control for adults with diabetes: <7.0 Test(s) 284139-BAO-F ; 574994-JMP-T; 954496-Oqnadrggdeqck; 686942-Lfdrzomhuud, Total; 163427-XBH-W (Total); 161451-Wacrl LDL-P; 124662-MYB Size; 346416-WB-BE Scorewas developed and its performance characteristics determinedby sezmi. It has not been cleared or approved by the Foodand Drug Administration.PATIENT WAS FASTINGPERFORMED BY: [employer] [facility] [id number] BY: Ungalli70 [employer]stone RV CompanyFrye Regional Medical Center [facility] Campus [id number] METABOLIC PANEL, COMPREHENSI VE (84908)Ordered By: Computer Specialist on 11-20-2020 Albumin [Mass/Vol] 4.5 g/dL Normal 3.8-4.8 [facility] Internal [facility]; [facility] Work Phone: Comment on above: Test(s) 569610-QMW-N ; 789060-JGJ-A; 621783-Dbcyvftdalufi; 556170-Rrsbmixasmd, Total; 088200-OFC-Y (Total); 954359-Lflbp LDL-P; 739220-SOT Size; 897612-HX-SD Scorewas developed and its performance characteristics determinedby sezmi. It has not been cleared or approved by the Foodand Drug Administration.PATIENT WAS FASTINGPERFORMED BY: [employer] [facility] [id number] BY: [employer]6370 [facility]stone RV CompanyFrye Regional Medical Center [facility] Campus [id number] Albumin/Globulin [Mass ratio] 1.9 {ratio} Normal 1.2-2.2 [facility]; [facility] Work Phone: Comment on above: Test(s) 860598-SIU-B ; 747135-WOQ-E; 791554-Tqoyqetvjeoks; 985262-Pbdfmwewgft, Total; 595967-GJY-M (Total); 882532-Mieqa LDL-P; 842043-SLX Size; 447906-KC-NB Scorewas developed and its performance characteristics determinedby sezmi. It has not been cleared or approved by the Foodand Drug Administration.PATIENT WAS FASTINGPERFORMED BY: [employer] [address] [id number] BY: Ungalli70 [facility] [id number] ALP [Catalytic activity/Vol] 128 U/L Abnormal 39-117 [facility]; [facility] Work Phone: Comment on above: Test(s) 622777-OCV-Q ; 660540-LOT-R; 361009-Synctwnamkpsx; 734618-Jyhlobqppac, Total; 377883-AWQ-M (Total); 448961-Uvqbf LDL-P; 399123-VBL Size; 490063-YL-IL Scorewas developed and its performance characteristics determinedby sezmi. It has not been cleared or approved by the Foodand Drug Administration.PATIENT WAS FASTINGPERFORMED BY: [employer] [address] [id number] BY: Ungalli70 [facility] [id number] ALT [Catalytic activity/Vol] 36 U/L Normal 0-44 [facility]; [facility] Work Phone: Comment on above: Test(s) 697353-ASH-J ; 937582-VHV-F; 239073-Lhqfwbeawdfct; 975343-Fajypmthaod, Total; 226879-JJA-V (Total); 461796-Caicy LDL-P; 643403-IRR Size; 548443-FI-CN Scorewas developed and its performance characteristics determinedby sezmi. It has not been cleared or approved by the Foodand Drug Administration.PATIENT WAS FASTINGPERFORMED BY: [employer] [address] [id number] BY: SabakatHackensack University Medical CenterEbojmq6301 [facility] [id number] AST [Catalytic activity/Vol] 27 U/L Normal 0-40 [facility]; [facility] Work Phone: Comment on above: Test(s) 316206-ZBI-S ; 716963-VXN-X; 465299-Ukfjibauqbzaw; 007008-Abiycjypfug, Total; 329458-GJF-S (Total); 642178-Dpmzf LDL-P; 883915-YAV Size; 626147-PK-ZE Scorewas developed and its performance characteristics determinedby sezmi. It has not been cleared or approved by the Foodand Drug Administration.PATIENT WAS FASTINGPERFORMED BY: [employer] [address] [id number] BY: [employer]6370 [facility] [id number] Bilirubin [Mass/Vol] 0.3 mg/dL Normal 0.0-1.2 [facility] Internal Medicine; [facility] Work Phone: Comment on above: Test(s) 186551-UXB-V ; 750353-SGE-P; 745452-Ujpqfoeeswoqp; 131380-Pknkqgnqjhl, Total; 392299-MBZ-L (Total); 909171-Sxcjn LDL-P; 408626-LLW Size; 594304-IZ-YV Scorewas developed and its performance characteristics determinedby sezmi. It has not been cleared or approved by the Foodand Drug Administration.PATIENT WAS FASTINGPERFORMED BY: AcadiaSoft[address] [id number] BY: SabakatHackensack University Medical CenterWwdjwq9215 [facility] [id number] Calcium [Mass/Vol] 9.2 mg/dL Normal 8.6-10.2 [facility]; [facility] Work Phone: Comment on above: Test(s) 633741-TUV-N ; 359991-HVH-P; 024477-Ibhuptnoxkscp; 853914-Chfuaaxojiq, Total; 910096-GBY-F (Total); 918734-Blxig LDL-P; 768109-MVC Size; 416307-VF-FI Scorewas developed and its performance characteristics determinedby sezmi. It has not been cleared or approved by the Foodand Drug Administration.PATIENT WAS FASTINGPERFORMED BY: [employer] [address] [id number] BY: [employer]6370 [facility] RV CompanyFrye Regional Medical Center [facility] [id number] Chloride [Moles/Vol] 106 mmol/L Normal 96-106 [facility] Internal Medicine; [facility] Work Phone: Comment on above: Test(s) 588898-YDY-V ; 970752-GXU-S; 779203-Alnfftukrzvwz; 383711-Spvzanavvdw, Total; 015034-TZG-C (Total); 077026-Eegxf LDL-P; 293620-VLX Size; 495216-LP-SJ Scorewas developed and its performance characteristics determinedby sezmi. It has not been cleared or approved by the Foodand Drug Administration.PATIENT WAS FASTINGPERFORMED BY: [employer] [address] [id number] BY: [employer] Technologies6370 ChinaCacheLifeBrite [facility] [id number] CO2 [Moles/Vol] 24 mmol/L Normal 20-29 [facility] Internal Medicine; [facility] Work Phone: Comment on above: Test(s) 737326-THD-O ; 079605-ZKW-J; 408247-Csrzjxiawosec; 603526-Eukojktxuxd, Total; 556592-FIE-W (Total); 138858-Psedd LDL-P; 753250-HYX Size; 705691-EB-RF Scorewas developed and its performance characteristics determinedby sezmi. It has not been cleared or approved by the Foodand Drug Administration.PATIENT WAS FASTINGPERFORMED BY: [employer] [address] [id number] BY: [employer]6370 [facility] RV CompanyFrye Regional Medical Center [facility] [id number] Creatinine [Mass/Vol] 1.37 mg/dL Abnormal 0.76-1.27 [facility]; [facility] Work Phone: Comment on above: Test(s) 714906-BUI-E ; 039028-SSH-Y; 533356-Qlsewqqbrltdr; 266354-Ejffrrwqjrd, Total; 059798-KPJ-Y (Total); 611398-Obwlh LDL-P; 723509-EUI Size; 869577-PW-YX Scorewas developed and its performance characteristics determinedby sezmi. It has not been cleared or approved by the Foodand Drug Administration.PATIENT WAS FASTINGPERFORMED BY: [employer] [address] [id number] BY: [employer] [id number] [facility] [id number] GFR/1.73 sq M.predicted among blacks CKD-EPI (S/P/Bld) [Vol rate/Area] 62 mL/min/1.73 Normal [facility]; [facility] Work Phone: Comment on above: [employer] currently reports eGFR in compliance with the current recommendations of the National Kidney Foundation. [employer] will update reporting as new guidelines are published from the NKF-ASN Task force. Test(s) 096591-VKU-Q ; 877725-RXE-K; 869925-Ahcacegjfclpt; 667655-Uspeawihjar, Total; 005620-VZN-Q (Total); 638049-Wzfrk LDL-P; 922998-GRP Size; 378517-LO-KH Scorewas developed and its performance characteristics determinedby sezmi. It has not been cleared or approved by the Foodand Drug Administration.PATIENT WAS FASTINGPERFORMED BY: [employer] [address] [id number] BY: [employer] [id number] [facility] [id number] GFR/1.73 sq M.predicted among non-blacks CKD-EPI (S/P/Bld) [Vol rate/Area] 53 mL/min/1.73 Abnormal [facility]; [facility] Work Phone: Comment on above: Test(s) 195790-MWX-J ; 681840-QAA-D; 045777-Cadjmagprrwei; 041396-Odzctdgnkfx, Total; 703151-RUV-E (Total); 378845-Ebjxy LDL-P; 436512-UDM Size; 223771-IB-XI Scorewas developed and its performance characteristics determinedby sezmi. It has not been cleared or approved by the Foodand Drug Administration.PATIENT WAS FASTINGPERFORMED BY: [employer] [address] [id number] BY: Ungalli70 [facility] [id number] Globulin (S) [Mass/Vol] 2.4 g/dL Normal 1.5-4.5 [facility]; [facility] Work Phone: Comment on above: Test(s) 929028-FZZ-Z ; 183614-BCM-Z; 723295-Tuyafxcuonrnc; 884149-Ntheibdpghg, Total; 191326-OMB-O (Total); 718357-Pytxk LDL-P; 030134-GPW Size; 252123-TG-CN Scorewas developed and its performance characteristics determinedby sezmi. It has not been cleared or approved by the Foodand Drug Administration.PATIENT WAS FASTINGPERFORMED BY: [employer] [address] [id number] BY: [employer]6370 [facility] [id number] Glucose [Mass/Vol] 98 mg/dL Normal 65-99 [facility] Internal Medicine; [facility] Internal Medicine Work Phone: Comment on above: Test(s) 183739-DFW-U ; 231254-TOD-N; 785111-Tvapvbbtznvgj; 857229-Xqqzqawitxq, Total; 679547-WKO-R (Total); 061944-Egpbr LDL-P; 507664-UJZ Size; 023637-WJ-EB Scorewas developed and its performance characteristics determinedby sezmi. It has not been cleared or approved by the Foodand Drug Administration.PATIENT WAS FASTINGPERFORMED BY: AcadiaSoft[address] [id number] BY: [employer])[facility] CenterUysrlp9063 [place] [facility] OperandiLifeBrite [facility] [id number] Potassium [Moles/Vol] 4.7 mmol/L Normal 3.5-5.2 [facility]; [facility] Work Phone: Comment on above: Test(s) 138635-DHB-Z ; 681132-PEH-E; 478822-Aqajysvszwmxz; 037342-Ublygoxhlfo, Total; 474216-NYH-B (Total); 140833-Rpikn LDL-P; 347139-LOY Size; 341039-IL-AO Scorewas developed and its performance characteristics determinedby sezmi. It has not been cleared or approved by the Foodand Drug Administration.PATIENT WAS FASTINGPERFORMED BY: [employer] [address] [id number] BY: Sabakat Akutlt7645 [facility] [id number] Protein [Mass/Vol] 6.9 g/dL Normal 6.0-8.5 [facility]; [facility] Work Phone: Comment on above: Test(s) 999951-RYM-Z ; 283375-OVI-D; 838375-Bsbdzpnbxwdjl; 446424-Fiunnxlcojw, Total; 705277-XZP-M (Total); 974556-Dwnpp LDL-P; 285257-QTN Size; 234989-PL-MY Scorewas developed and its performance characteristics determinedby sezmi. It has not been cleared or approved by the Foodand Drug Administration.PATIENT WAS FASTINGPERFORMED BY: [employer])[address] [id number] BY: [employer])[facility] Medical CenterOfrsgu1928 [facility] [id number] Sodium [Moles/Vol] 144 mmol/L Normal 134-144 [facility]; [facility] Work Phone: Comment on above: Test(s) 002235-IGT-C ; 804895-FXR-T; 931906-Xfnsszschgpym; 637191-Fwwlyxmlyic, Total; 632776-MXH-U (Total); 141648-Zigzm LDL-P; 328856-JOH Size; 159930-AY-WC Scorewas developed and its performance characteristics determinedby sezmi. It has not been cleared or approved by the Foodand Drug Administration.PATIENT WAS FASTINGPERFORMED BY: [employer] [address] [id number] BY: Ungalli70 [facility] [id number] Urea nitrogen [Mass/Vol] 17 mg/dL Normal 8-27 [facility]; [facility] Work Phone: Comment on above: Test(s) 146736-YWP-Z ; 300653-YXN-M; 427693-Krmdurxvwzusp; 648889-Hvwylbftwfz, Total; 671458-AHY-D (Total); 146301-Fohav LDL-P; 652967-NCP Size; 221184-VN-BR Scorewas developed and its performance characteristics determinedby sezmi. It has not been cleared or approved by the Foodand Drug Administration.PATIENT WAS FASTINGPERFORMED BY: [employer] [address] [id number] BY: Ungalli70 [facility] [id number] Urea nitrogen/Creatinine [Mass ratio] 12 mg/mg Normal 10-24 [facility]; [facility] Work Phone: Comment on above: Test(s) 133743-IVQ-J ; 964855-TKW-R; 582867-Hsznhyplrltsc; 896935-Qdkqcquopfk, Total; 528621-VOU-C (Total); 545771-Swere LDL-P; 526573-DZZ Size; 404647-IR-NR Scorewas developed and its performance characteristics determinedby sezmi. It has not been cleared or approved by the Foodand Drug Administration.PATIENT WAS FASTINGPERFORMED BY: [employer] [address] [id number] BY: Ungalli70 [facility] [id number] MICROALBUMINOrdered By: Syst em Trimmer Sawyer on 11-20-2020 Albumin DL <= 20 mg/L (U) [Mass/Vol] 8.2 ug/mL Normal Comprehensiv e [facility]; [facility] Work Phone: Comment on above: Test(s) 834240-XBL-O ; 466837-NAD-G; 136606-Nfpjprsrjpvpz; 965634-Sqiskxgmtaw, Total; 683942-VYX-T (Total); 830754-Txpvv LDL-P; 343090-CFD Size; 267984-KL-AQ Scorewas developed and its performance characteristics determinedby sezmi. It has not been cleared or approved by the Foodand Drug Administration.PATIENT WAS FASTINGPERFORMED BY: CoachUp[address] [id number] BY: [employer] Technologies6370 [facility] [id number] Albumin/Creatinine (U) [Mass ratio] 4 {mg/g_creat} Normal 0-29 [facility]; [facility] Work Phone: Comment on above: Normal: 0 - 29 Moder ately increased: 30 - 300 Severely increased: >300 Test(s) 410869-TXH-L ; 150224-LLB-M; 875505-Meifbyhlhckra; 994708-Znfzabpavsx, Total; 890245-TFE-W (Total); 813156-Gjbfa LDL-P; 617770-URR Size; 653554-PJ-UJ Scorewas developed and its performance characteristics determinedby sezmi. It has not been cleared or approved by the Foodand Drug Administration.PATIENT WAS FASTINGPERFORMED BY: [employer] [address] [id number] BY: [employer]6370 [facility] [id number] Creatinine (U) [Mass/Vol] 226.6 mg/dL Normal [facility]; [facility] Work Phone: Comment on above: Test(s) 019648-MVS-S ; 732697-MPZ-A; 667140-Edoxkosftqdym; 404915-Jjvabpylppy, Total; 310057-QID-K (Total); 006296-Pqmar LDL-P; 665578-EQD Size; 908413-VE-LA Scorewas developed and its performance characteristics determinedby sezmi. It has not been cleared or approved by the Foodand Drug Administration.PATIENT WAS FASTINGPERFORMED BY: [employer] [address] [id number] BY: [employer] Dekhjf5304 [facility] [id number] NMR Profile (93908)Ordered B y: Computer Specialist on 11-20-2020 Cholesterol [Mass/Vol] 156 mg/dL Normal 100-199 [facility]; [facility] Work Phone: Comment on above: Test(s) 483399-VDC-O ; 612963-QTO-V; 015298-Kcxvpgbdhexod; 332429-Aotzafdppyd, Total; 756213-ACN-T (Total); 660352-Ezjnn LDL-P; 835353-FQQ Size; 479908-XV-NN Scorewas developed and its performance characteristics determinedby sezmi. It has not been cleared or approved by the Foodand Drug Administration.PATIENT WAS FASTINGPERFORMED BY: [employer] [address] [id number] BY: [employer] Cfirla1485 [facility] [id number] Lipoprotein.alpha [Moles/Vol] 23.4 umol/L Abnormal [facility]; [facility] Work Phone: Comment on above: Test(s) 490718-GYG-V ; 188956-BUS-A; 023323-Tyyhaczpviedx; 686409-Kwvitwrvghg, Total; 011890-CRV-Z (Total); 477223-Jkozq LDL-P; 512684-ESP Size; 250234-WZ-ZU Scorewas developed and its performance characteristics determinedby sezmi. It has not been cleared or approved by the Foodand Drug Administration.PATIENT WAS FASTINGPERFORMED BY: [employer] [address] [id number] BY: CAROLA [employer])[facility] Medical CenterAikrqm8279 [facility] [id number] Lipoprotein.beta.sub particle [Entitic length] 19.8 nm Abnormal [...] not afterLDL-P is taken into account. Test(s) 019768-IDE-N ; 749696-FJA-C; 140577-Uldbxkfsuguoi; 011367-Zpxhdgmpcdr, Total; 911994-OHV-S (Total); 761357-Bkefq LDL-P; 843636-AOG Size; 995073-PY-DJ Scorewas developed and its performance characteristics determinedby sezmi. It has not been cleared or approved by the Foodand Drug Administration.PATIENT WAS FASTINGPERFORMED BY: BELLO [employer])[facility]raState Healthcare SystemFnbuelmlqi7713 [facility] [id number] BY: CAROLA [employer])[facility] CenterLuapzd1862 [facility] [id number] Lipoprotein.beta.sub particle [Moles/Vol] 1329 nmol/L Abnormal Comprehensi ve Internal Medicine; [facility] Work Phone: Comment on above: Low < 1000 Moderate 1000 - 1299 Borderline-High 1300 - 1599 High 1600 - 2000 Very High > 2000 Test(s) 154439-JGN-B ; 896390-TZF-A; 526308-Oknqqpoolqhjn; 461746-Obaisarxbbc, Total; 278459-DLE-V (Total); 477683-Bnxib LDL-P; 965133-CAM Size; 364581-QN-XK Scorewas developed and its performance characteristics determinedby sezmi. It has not been cleared or approved by the Foodand Drug Administration.PATIENT WAS FASTINGPERFORMED BY: CoachUp[address] [id number] BY: Ungalli70 ChinaCacheLifeBrite [facility] [id number] Lipoprotein.beta.sub particle.small [Moles/Vol] 1028 nmol/L Abnormal [facility] Internal Medicine; [facility] Medicine Work Phone: Comment on above: Test(s) 897071-ZGU-S ; 643676-MFP-X; 271306-Sabbaaujrfttj; 319541-Owkhwpctvpc, Total; 662567-HTT-F (Total); 731309-Vnitc LDL-P; 186686-QXD Size; 432369-LO-MV Scorewas developed and its performance characteristics determinedby sezmi. It has not been cleared or approved by the FoodSticky Drug Administration.PATIENT WAS FASTINGPERFORMED BY: CoachUp[address] [id number] BY: Ungalli70 [place] [employer] OperandiLifeBrite [facility] [id number] Triglyceride [Mass/Vol] 219 mg/dL Abnormal 0-149 [facility]; [facility] Work Phone: Comment on above: Test(s) 842033-TBF-H ; 842631-KFH-Q; 676407-Qryqgylolxypk; 280205-Yjrspvxthtb, Total; 956446-VBP-R (Total); 473221-Zexwd LDL-P; 954200-NMF Size; 951381-AL-XJ Scorewas developed and its performance characteristics determinedby sezmi. It has not been cleared or approved by the Foodand Drug Administration.PATIENT WAS FASTINGPERFORMED BY: [employer] [id number] BY: [employer])[facility] CenterNsplmi7879 [facility] [id number] NMR Profile (83443) 91 mg/dL Normal 0-99 [facility] ehensive Internal Medicine; [facility] Work Phone: Comment on above: . Optimal < 100 Abov e optimal 100 - 129 Borderline 130 - 159 High 160 - 189 Very high > 189 . Test(s) 509935-DTD-Z ; 359234-KBT-B; 415850-Qxxzqlnmfxzdu; 168901-Xrfszcubwha, Total; 681964-YDW-Z (Total); 209064-Ivlfn LDL-P; 533249-OFV Size; 462931-HT-YE Scorewas developed and its performance characteristics determinedby sezmi. It has not been cleared or approved by the Foodand Drug Administration.PATIENT WAS FASTINGPERFORMED BY: [employer] [address] [id number] BY: [employer] Bsmlsh1807 [facility] [id number] NMR Profile (90197) 28 mg/dL Abnormal [facility]; [facility] Work Phone: Comment on above: Test(s) 252279-YSD-U ; 928986-RTK-Z; 545465-Btvbtwwohxczj; 258804-Rmkkxycdrvv, Total; 691815-WLM-F (Total); 376690-Rfcap LDL-P; 006674-ATA Size; 148326-DB-PT Scorewas developed and its performance characteristics determinedby sezmi. It has not been cleared or approved by the Foodand Drug Administration.PATIENT WAS FASTINGPERFORMED BY: [employer] [id number] BY: [employer])[facility] Medical CenterJdlwhe1601 [facility] [id number] NMR Profile (82276) 219 mg/dL Abnormal 0-149 Compr ehensive Internal Medicine; [facility] Work Phone: NMR Profile (02180) 156 mg/dL Normal 100-199 Compr ensive [facility] Medicine; [facility] Work Phone: TSH (THYROID STIMULATING HOR [place]) (97378)Ordered By: Computer Specialist on 11-20-2020 TSH Qn 2.010 {uIU/mL} Normal 0.450-4.50 0 [facility]; [facility] Work Phone: Comment on above: Test(s) 984901-WJF-C ; 382826-DEF-N; 677764-Vmkloodimmzqr; 144461-Lssahytkfae, Total; 831320-WKA-I (Total); 856498-Qfhak LDL-P; 025067-XOS Size; 852656-CM-JG Scorewas developed and its performance characteristics determinedby [employer]. It has not been cleared or approved by the Foodand Drug Administration.PATIENT WAS FASTINGPERFORMED BY: [facility] [address] [id number] BY: CB [facility] Icygec2712 [facility] [id number] Blood Glucose , Office (8296 2)Ordered By: Stacy Jensen on 04-30-2020 Glucose Glucometer (BldC) [Moles/Vol] 95 1 Normal [facility] Work Phone: CALCIFEDIOL (10373)Ordered B y: Computer Specialist on 04-30-2020 25-Hydroxyvitamin D2+25-Hydroxyvitamin D3 [Mass/Vol] 47.7 ng/mL Normal 30.0-100.0 [facility]; [facility] Work Phone: Comment on above: Vitamin D deficiency has been defined by the [place] ofMedicine and an Endocrine Society practice guideline as alevel of serum 25-OH vitamin D less than 20 ng/mL (1,2).The Endocrine Society went on to further define vitamin Dinsufficiency as a level between 21 and 29 ng/mL (2).1. IOM ([place] of Medicine). 2010. Dietary reference intakes for calcium and D. [place]: The National Academies Press.2. Rayna MF, Ana Luisa HASSAN, William CUBA, et al. Evaluation, treatment, and prevention of vitamin D deficiency: an Endocrine Society clinical practice guideline. JCEM. 2010; 96(7):1911-30. Test(s) 906528-KYL-G ; 026402-JUH-B; 948520-Gsvppmfsmfmzc; 604875-Junynashbaq, Total; 027914-WHV-G (Total); 029222-Qsbep LDL-P; 860521-FEO Size; 022904-WA-PV Scorewas developed and its performance characteristics determinedby [employer]. It has not been cleared or approved by the Foodand Drug Administration.PATIENT WAS FASTINGPERFORMED BY: CoachUp[address] [id number] BY: Ungalli70 ChinaCacheLifeBrite [facility] [id number] CBC W/AUTO DIFF WBC (16053)O rdered By: Computer Specialist on 04-30-2020 Basophils (Bld) [#/Vol] 0.1 {x10E3/uL} Normal 0.0-0.2 [facility]; [facility] Work Phone: Comment on above: Test(s) 873522-THM-H ; 148118-IAF-I; 196826-Iftgieehmkrdi; 913398-Ogzcutziold, Total; 948269-ADQ-F (Total); 969378-Lvlsa LDL-P; 043174-SRJ Size; 487081-GN-TR Scorewas developed and its performance characteristics determinedby [employer]. It has not been cleared or approved by the Foodand Drug Administration.PATIENT WAS FASTINGPERFORMED BY: [employer] [address] [id number] BY: Ungalli70 ChinaCacheLifeBrite [facility] [id number] Basophils (Bld) [#/Vol] 0.1 10*3/uL Normal 0.0-0.2 [facility]; [facility] Work Phone: Comment on above: Test(s) 461990-VGP-A ; 523839-IJM-M; 264965-Zoeazvfmmcskz; 289867-Cfzeyddrsng, Total; 948343-LZV-I (Total); 283612-Wpxnt LDL-P; 234183-NHR Size; 278656-KY-RH Scorewas developed and its performance characteristics determinedby [employer]. It has not been cleared or approved by the Foodand Drug Administration.PATIENT WAS FASTINGPERFORMED BY: [employer] [address] [id number] BY: Ungalli70 [facility] RV CompanyFry[facility] [id number] Basophils/100 WBC (Bld) 1 % Normal [facility]; [facility] Work Phone: Comment on above: Test(s) 817554-YVZ-X ; 802840-GQE-C; 088795-Hybasbsbvutyi; 484053-Iyvupgmpjym, Total; 430827-UVZ-Q (Total); 997211-Bcnpf LDL-P; 667014-AVH Size; 138364-OP-RX Scorewas developed and its performance characteristics determinedby [employer]. It has not been cleared or approved by the FoodSticky Drug Administration.PATIENT WAS FASTINGPERFORMED BY: [employer] [address] [id number] BY: Ungalli70 [facility] RV CompanyFrye [facility] [id number] Eosinophils (Bld) [#/Vol] 0.1 {x10E3/uL} Normal 0.0-0.4 [facility]; [facility] Work Phone: Comment on above: Test(s) 211650-DIC-R ; 244162-FDX-O; 256282-Kdqtrwlxtizgi; 164344-Dqiwpvvsbae, Total; 318644-VJM-D (Total); 613745-Pvipb LDL-P; 574714-NSZ Size; 718182-LI-LZ Scorewas developed and its performance characteristics determinedby [employer]. It has not been cleared or approved by the Foodand Drug Administration.PATIENT WAS FASTINGPERFORMED BY: [employer] [address] [id number] BY: Ungalli70 [facility] RV CompanyFry[facility] [id number] Eosinophils (Bld) [#/Vol] 0.1 10*3/uL Normal 0.0-0.4 [facility]; [facility] Work Phone: Comment on above: Test(s) 408715-ECT-V ; 246052-LWL-G; 990440-Zecirvmhqysyf; 958067-Sswmmfzznyy, Total; 029960-VJF-R (Total); 750554-Jlaoj LDL-P; 454123-WFE Size; 824904-ZW-HD Scorewas developed and its performance characteristics determinedby [employer]. It has not been cleared or approved by the Foodand Drug Administration.PATIENT WAS FASTINGPERFORMED BY: CoachUp[address] [id number] BY: [employer]Matrix [employer]6370 [facility] RV CompanyFry[facility] [id number] Eosinophils/100 WBC (Bld) 1 % Normal [facility]; [facility] Work Phone: Comment on above: Test(s) 179874-QBO-D ; 266660-DNL-L; 395903-Xggqerknlbejy; 587756-Mnkbvpqgghf, Total; 522124-XWF-S (Total); 019333-Fizvw LDL-P; 744396-LGZ Size; 504420-VO-NL Scorewas developed and its performance characteristics determinedby [employer]. It has not been cleared or approved by the Foodand Drug Administration.PATIENT WAS FASTINGPERFORMED BY: [employer] [address] [id number] BY: [employer] Technologies6370 ClaytonHannibal Regional HospitalClzbyFry[facility] [id number] Erythrocyte distribution width (RBC) [Ratio] 12.5 % Normal 11.6-15.4 [facility]; [facility] Work Phone: Comment on above: Test(s) 141108-OPD-J ; 369248-XDQ-B; 557663-Epzywcwxozzjb; 055908-Lxreiocfhjt, Total; 646772-BHS-A (Total); 746443-Wgidh LDL-P; 618900-OMN Size; 170919-JY-AE Scorewas developed and its performance characteristics determinedby [employer]. It has not been cleared or approved by the Foodand Drug Administration.PATIENT WAS FASTINGPERFORMED BY: AcadiaSoft[address] [id number] BY: [employer] Zhipfs2287 [facility] [id number] Hematocrit (Bld) [Volume fraction] 44.9 % Normal 37.5-51.0 [facility]; [facility] Work Phone: Comment on above: Test(s) 726227-JKT-F ; 497218-MLM-Y; 867651-Ahkmahbeohslv; 125228-Qqgsarsheqn, Total; 276404-GCY-A (Total); 235529-Ajawz LDL-P; 862114-GBT Size; 868243-VI-PX Scorewas developed and its performance characteristics determinedby [employer]. It has not been cleared or approved by the Foodand Drug Administration.PATIENT WAS FASTINGPERFORMED BY: [employer] [address] [id number] BY: [employer]6370 [facility] [id number] Hemoglobin (Bld) [Mass/Vol] 15.4 g/dL Normal 13.0-17.7 [facility]; [facility] Work Phone: Comment on above: Test(s) 487059-NIU-L ; 886353-CRC-B; 582554-Skzmcpjlpqxvt; 041645-Sgmnpchprhe, Total; 153760-CBV-O (Total); 831608-Rzdax LDL-P; 962410-SOQ Size; 824177-IT-GJ Scorewas developed and its performance characteristics determinedby [employer]. It has not been cleared or approved by the Foodand Drug Administration.PATIENT WAS FASTINGPERFORMED BY: AcadiaSoft[address] [id number] BY: ClassOwllin6370 [facility] [id number] Immature granulocytes (Bld) [#/Vol] 0.1 {x10E3/uL} Normal 0.0-0.1 [facility]; [facility] Work Phone: Comment on above: Test(s) 495947-LEM-C ; 163946-PGI-C; 334393-Rshdryqqkcwss; 423948-Olwuahilcvg, Total; 798409-DBP-N (Total); 921682-Icqsr LDL-P; 551494-CPP Size; 619814-LV-LA Scorewas developed and its performance characteristics determinedby [employer]. It has not been cleared or approved by the Foodand Drug Administration.PATIENT WAS FASTINGPERFORMED BY: [employer] [address] [id number] BY: [employer] [facility] [id number] Immature granulocytes (Bld) [#/Vol] 0.1 10*3/uL Normal 0.0-0.1 [facility]; [facility] Work Phone: Comment on above: Test(s) 716563-AKK-C ; 637830-ENT-H; 083692-Eitythleklvgi; 853915-Snqpxzduoif, Total; 861600-GYB-R (Total); 413701-Qmflm LDL-P; 478402-FDE Size; 539678-RI-KL Scorewas developed and its performance characteristics determinedby [employer]. It has not been cleared or approved by the Foodand Drug Administration.PATIENT WAS FASTINGPERFORMED BY: [employer] [address] [id number] BY: [employer] Technologies6370 [facility] [id number] Immature granulocytes/100 WBC (Bld) 1 % Normal [facility]; [facility] Work Phone: Comment on above: Test(s) 903459-YPP-N ; 566368-OTF-P; 042939-Jpxunikthynuq; 516083-Tajvxisztka, Total; 119295-DEC-S (Total); 066456-Owusw LDL-P; 946171-BWC Size; 279226-IE-ZK Scorewas developed and its performance characteristics determinedby [employer]. It has not been cleared or approved by the Foodand Drug Administration.PATIENT WAS FASTINGPERFORMED BY: [employer] [address] [id number] BY: [employer])[facility] CenterVfjyks7100 [facility] [id number] Lymphocytes (Bld) [#/Vol] 1.4 {x10E3/uL} Normal 0.7-3.1 [facility]; [facility] Work Phone: Comment on above: Test(s) 462518-AKK-V ; 229752-LRC-S; 968186-Czmofkrgylbsh; 909222-Lvebwlciotp, Total; 426686-JMX-A (Total); 897160-Ksslp LDL-P; 543736-GIX Size; 590511-HE-QO Scorewas developed and its performance characteristics determinedby [employer]. It has not been cleared or approved by the Foodand Drug Administration.PATIENT WAS FASTINGPERFORMED BY: [employer] [address] [id number] BY: [employer] Nymwpx0752 [facility] [id number] Lymphocytes (Bld) [#/Vol] 1.4 10*3/uL Normal 0.7-3.1 [facility]; [facility] Work Phone: Comment on above: Test(s) 397027-YZT-X ; 408083-CXN-T; 648734-Wbbavqskaklgz; 267084-Fzeskdjofmp, Total; 382382-HOB-X (Total); 039460-Dgign LDL-P; 742864-YRQ Size; 037818-YH-MW Scorewas developed and its performance characteristics determinedby [employer]. It has not been cleared or approved by the Foodand Drug Administration.PATIENT WAS FASTINGPERFORMED BY: [employer] [address] [id number] BY: [employer] Emccnj4146 [facility] [id number] Lymphocytes/100 WBC (Bld) 17 % Normal [facility]; [facility] Work Phone: Comment on above: Test(s) 264045-YYI-V ; 584320-VSQ-H; 537212-Wpxresvjxhnvn; 939873-Uoxugvbvjlj, Total; 303255-HAI-J (Total); 438155-Niwbk LDL-P; 020082-FGQ Size; 079528-YI-EC Scorewas developed and its performance characteristics determinedby [employer]. It has not been cleared or approved by the Foodand Drug Administration.PATIENT WAS FASTINGPERFORMED BY: [employer] [address] [id number] BY: Ungalli70 [facility] [id number] MCH (RBC) [Entitic mass] 31.9 pg Normal 26.6-33.0 [facility]; [facility] Work Phone: Comment on above: Test(s) 784268-TAQ-P ; 100880-TPL-V; 910877-Cuznndqvfkjgb; 757084-Rjvowhtczzj, Total; 093488-CDZ-B (Total); 393558-Lweyv LDL-P; 531884-CUP Size; 128741-QB-QR Scorewas developed and its performance characteristics determinedby [employer]. It has not been cleared or approved by the Foodand Drug Administration.PATIENT WAS FASTINGPERFORMED BY: [employer] [address] [id number] BY: [employer] [id number] [facility] [id number] MCHC (RBC) [Mass/Vol] 34.3 g/dL Normal 31.5-35.7 [facility]; [facility] Work Phone: Comment on above: Test(s) 475514-NTW-P ; 198993-PBP-C; 329736-Abcrvhveabzay; 914027-Zmcxqkbetsm, Total; 702673-ZOS-L (Total); 625314-Cpuqc LDL-P; 576340-KPV Size; 609107-QH-AI Scorewas developed and its performance characteristics determinedby [employer]. It has not been cleared or approved by the Foodand Drug Administration.PATIENT WAS FASTINGPERFORMED BY: [employer] [address] [id number] BY: Ungalli70 [facility] CompanyF[facility] [id number] MCV (RBC) [Entitic vol] 93 fL Normal 79-97 [facility]; [facility] Work Phone: Comment on above: Test(s) 432467-QIM-Y ; 822013-NEY-C; 628159-Tnlasbpxutqfo; 688282-Jbsgnqjrkkz, Total; 091143-SYU-F (Total); 669779-Joocb LDL-P; 055801-CHE Size; 279037-TD-BP Scorewas developed and its performance characteristics determinedby [employer]. It has not been cleared or approved by the Foodand Drug Administration.PATIENT WAS FASTINGPERFORMED BY: CoachUp[address] [id number] BY: Ungalli70 [facility] CompanyF[facility] [id number] Monocytes (Bld) [#/Vol] 0.6 {x10E3/uL} Normal 0.1-0.9 [facility]; [facility] Work Phone: Comment on above: Test(s) 033545-UDJ-W ; 173010-DWI-U; 020445-Gkunupnczsxip; 605205-Xnfnfbhjuvw, Total; 784024-PDX-N (Total); 045335-Qvjin LDL-P; 026243-MIF Size; 364552-TN-QC Scorewas developed and its performance characteristics determinedby [employer]. It has not been cleared or approved by the Foodand Drug Administration.PATIENT WAS FASTINGPERFORMED BY: [employer] [address] [id number] BY: ClassOwllin6370 [facility] [id number] Monocytes (Bld) [#/Vol] 0.6 10*3/uL Normal 0.1-0.9 [facility]; [facility] Work Phone: Comment on above: Test(s) 325082-QDK-E ; 526989-KSG-V; 000051-Nhmimkydjhxce; 643686-Zbwdpievxkd, Total; 420833-XKW-W (Total); 890544-Xtrzr LDL-P; 808788-HMF Size; 522090-CP-VY Scorewas developed and its performance characteristics determinedby [employer]. It has not been cleared or approved by the Foodand Drug Administration.PATIENT WAS FASTINGPERFORMED BY: [employer] [address] [id number] BY: [employer] Rgzwqi6791 [facility] [id number] Monocytes/100 WBC (Bld) 7 % Normal [facility]; [facility] Work Phone: Comment on above: Test(s) 273108-BEX-C ; 544234-BAG-H; 486880-Egxbjiqcqpdzr; 511736-Aefzrszrrds, Total; 519704-ZBT-W (Total); 577165-Sagui LDL-P; 751411-HOY Size; 441754-SZ-OV Scorewas developed and its performance characteristics determinedby [employer]. It has not been cleared or approved by the Foodand Drug Administration.PATIENT WAS FASTINGPERFORMED BY: [employer] [address] [id number] BY: [employer] Oehxse2646 [facility] [id number] Neutrophils (Bld) [#/Vol] 6.2 {x10E3/uL} Normal 1.4-7.0 [facility]; [facility] Work Phone: Comment on above: Test(s) 563845-UDF-I ; 178834-OZC-D; 824163-Zuoxqhjsmxcdf; 972633-Lsobjizvrst, Total; 123701-XKT-R (Total); 477979-Qxiqg LDL-P; 151708-JQA Size; 228468-MY-CI Scorewas developed and its performance characteristics determinedby [employer]. It has not been cleared or approved by the Foodand Drug Administration.PATIENT WAS FASTINGPERFORMED BY: [employer] [address] [id number] BY: [employer])[facility] CenterQivbjo3306 [facility] [id number] Neutrophils (Bld) [#/Vol] 6.2 10*3/uL Normal 1.4-7.0 [facility]; [facility] Work Phone: Comment on above: Test(s) 220761-BFI-F ; 764240-MUM-D; 493215-Vuramgklhhshw; 770199-Yjlqqtkydpb, Total; 898528-ECJ-B (Total); 911050-Thflj LDL-P; 411319-QLN Size; 598836-LR-NS Scorewas developed and its performance characteristics determinedby [employer]. It has not been cleared or approved by the Foodand Drug Administration.PATIENT WAS FASTINGPERFORMED BY: [employer] [address] [id number] BY: [employer]6370 [facility] [id number] Neutrophils/100 WBC (Bld) 73 % Normal [facility]; [facility] Work Phone: Comment on above: Test(s) 495221-NGO-K ; 966770-RSQ-N; 095170-Tgrorssiwdvjr; 664785-Uxeghcuhdsa, Total; 610343-RRC-G (Total); 981636-Zokwi LDL-P; 666583-MOV Size; 818226-OX-BR Scorewas developed and its performance characteristics determinedby [employer]. It has not been cleared or approved by the Foodand Drug Administration.PATIENT WAS FASTINGPERFORMED BY: [employer])[address] [id number] BY: [employer])[facility] CenterHiugxh3346 [facility] [id number] Platelets (Bld) [#/Vol] 158 {x10E3/uL} Normal 150-450 [facility]; [facility] Work Phone: Comment on above: Test(s) 211451-UDV-I ; 610964-DAM-J; 994996-Sucolimivmnix; 123215-Fgfuztvhyuo, Total; 333765-FWE-A (Total); 106333-Ndqvi LDL-P; 109083-VFQ Size; 316975-SZ-EQ Scorewas developed and its performance characteristics determinedby [employer]. It has not been cleared or approved by the Foodand Drug Administration.PATIENT WAS FASTINGPERFORMED BY: [employer] [address] [id number] BY: [employer]6370 [facility] CompanyF[facility] [id number] Platelets (Bld) [#/Vol] 158 10*3/uL Normal 150-450 [facility]; [facility] Work Phone: Comment on above: Test(s) 582268-GZV-Y ; 481929-KET-W; 547974-Fjucsvckdmrxr; 000527-Darivvijjtp, Total; 687748-WMW-S (Total); 744149-Jsssi LDL-P; 192454-FZS Size; 425958-LQ-ZR Scorewas developed and its performance characteristics determinedby [employer]. It has not been cleared or approved by the Foodand Drug Administration.PATIENT WAS FASTINGPERFORMED BY: CoachUp[address] [id number] BY: Ungalli70 [facility] CompanyF[facility] [id number] RBC (Bld) [#/Vol] 4.83 {x10E6/uL} Normal 4.14-5.80 [facility]; [facility] Work Phone: Comment on above: Test(s) 503679-YFX-M ; 883006-KQE-P; 414401-Avwrysseidqog; 393499-Pqiiuorpbti, Total; 611074-LFQ-F (Total); 236101-Zuwdr LDL-P; 578741-QON Size; 520359-BT-TY Scorewas developed and its performance characteristics determinedby [employer]. It has not been cleared or approved by the Foodand Drug Administration.PATIENT WAS FASTINGPERFORMED BY: [employer] [address] [id number] BY: Ungalli70 [facility] [id number] RBC (Bld) [#/Vol] 4.83 10*6/uL Normal 4.14-5.80 [facility] Internal [facility]; [facility] Work Phone: Comment on above: Test(s) 944603-QMM-Q ; 140926-OYS-C; 015049-Gfzmosgfjsyag; 786323-Hkgecfnpvtq, Total; 147624-HAQ-O (Total); 249195-Lugqw LDL-P; 782304-FFU Size; 058652-OM-CI Scorewas developed and its performance characteristics determinedby [employer]. It has not been cleared or approved by the Foodand Drug Administration.PATIENT WAS FASTINGPERFORMED BY: CoachUp[address] [id number] BY: [employer]6370 [facility] [id number] WBC (Bld) [#/Vol] 8.5 {x10E3/uL} Normal 3.4-10.8 [facility] Internal [facility]; [facility] Work Phone: Comment on above: Test(s) 006659-DVO-L ; 550348-BWJ-D; 497381-Nyvnqgobsxndf; 051684-Tloesxawqco, Total; 434185-DHY-W (Total); 277595-Adfjx LDL-P; 436625-VSQ Size; 491685-QB-UH Scorewas developed and its performance characteristics determinedby [employer]. It has not been cleared or approved by the Foodand Drug Administration.PATIENT WAS FASTINGPERFORMED BY: [employer] [address] [id number] BY: [employer]6370 [facility] [id number] WBC (Bld) [#/Vol] 8.5 10*3/uL Normal 3.4-10.8 [facility]; [facility] Work Phone: Comment on above: Test(s) 198318-MWO-R ; 034006-DVH-O; 639293-Ooziawyecxhbj; 817434-Vetpzoqjarl, Total; 640924-CTG-G (Total); 826894-Zdckn LDL-P; 560396-UOH Size; 195522-FJ-SJ Scorewas developed and its performance characteristics determinedby [employer]. It has not been cleared or approved by the Foodand Drug Administration.PATIENT WAS FASTINGPERFORMED BY: [employer] [address] [id number] BY: [employer]plic[employer]70 [facility] [id number] HgA1C , Office ([id number])Ordere d By: Stacy Jensen on 04-30-2020 HbA1c (Bld) [Mass fraction] 5.4 % Normal 4.6 - 7.1 [facility] Work Phone: METABOLIC PANEL, COMPREHENSI VE ([phone])Ordered By: Computer Specialist on 04-30-2020 Albumin [Mass/Vol] 4.5 g/dL Normal 3.8-4.8 [facility] Internal [facility]; [facility] Work Phone: Comment on above: Test(s) 530238-TRX-U ; 044922-YPG-Z; 770829-Fpguwmzlrokqo; 622647-Ftxxlwcnkkj, Total; 229693-FUG-S (Total); 924865-Jfufx LDL-P; 729377-WTW Size; 482117-NX-LZ Scorewas developed and its performance characteristics determinedby [employer]. It has not been cleared or approved by the Foodand Drug Administration.PATIENT WAS FASTINGPERFORMED BY: [employer] [address] [id number] BY: [employer]6370 [facility] [id number] Albumin/Globulin [Mass ratio] 1.7 {ratio} Normal 1.2-2.2 [facility]; [facility] Work Phone: Comment on above: Test(s) 241051-GXM-O ; 134786-GQO-W; 468875-Ygokhhwpdnudu; 337262-Fjbwnfvtrsw, Total; 436425-RRC-T (Total); 644701-Nvayv LDL-P; 913492-BHJ Size; 617685-MC-PK Scorewas developed and its performance characteristics determinedby [employer]. It has not been cleared or approved by the Foodand Drug Administration.PATIENT WAS FASTINGPERFORMED BY: [employer] [id number] BY: [employer])[facility] CenterSexglk7022 [facility] [id number] ALP [Catalytic activity/Vol] 145 [iU]/L Abnormal 39-117 [facility]; [facility] Work Phone: Comment on above: Test(s) 582636-CTV-B ; 832867-RRE-T; 076141-Ughibcofqfiyc; 533094-Mxtldhztvid, Total; 675792-VFO-N (Total); 956013-Agkaf LDL-P; 838539-BVH Size; 566701-LY-ZU Scorewas developed and its performance characteristics determinedby [employer]. It has not been cleared or approved by the Foodand Drug Administration.PATIENT WAS FASTINGPERFORMED BY: [employer] [address] [id number] BY: [employer]6370 [facility] [id number] ALP [Catalytic activity/Vol] 145 U/L Abnormal 39-117 [facility]; [facility] Work Phone: Comment on above: Test(s) 870772-NTA-J ; 765745-SPQ-Z; 798061-Evprqvstmdfcg; 429637-Mivgorfbiqv, Total; 408120-BRJ-R (Total); 742982-Ofvha LDL-P; 272511-VOC Size; 558591-PM-LL Scorewas developed and its performance characteristics determinedby [employer]. It has not been cleared or approved by the Foodand Drug Administration.PATIENT WAS FASTINGPERFORMED BY: [employer] [id number] BY: SabakatHackensack University Medical CenterHtjyma8715 [facility] [id number] ALT [Catalytic activity/Vol] 31 [iU]/L Normal 0-44 [facility]; [facility] Work Phone: Comment on above: Test(s) 678914-QTG-C ; 336306-JEI-E; 903438-Rsallzemsgngn; 106180-Tdwayxkzjxx, Total; 644368-FUE-Z (Total); 874402-Rqzco LDL-P; 717084-IFF Size; 335776-NH-IC Scorewas developed and its performance characteristics determinedby [employer]. It has not been cleared or approved by the Foodand Drug Administration.PATIENT WAS FASTINGPERFORMED BY: [employer] [address] [id number] BY: Ungalli70 [facility] [id number] ALT [Catalytic activity/Vol] 31 U/L Normal 0-44 [facility]; [facility] Work Phone: Comment on above: Test(s) 709250-KEM-W ; 858374-RZU-H; 999932-Qxwwecyojjauc; 862909-Iolzxskwpky, Total; 299050-QKP-W (Total); 724628-Kmthk LDL-P; 698516-CQM Size; 819424-KU-JP Scorewas developed and its performance characteristics determinedby [employer]. It has not been cleared or approved by the Foodand Drug Administration.PATIENT WAS FASTINGPERFORMED BY: [employer] [address] [id number] BY: [employer] [id number] [facility] [id number] AST [Catalytic activity/Vol] 29 [iU]/L Normal 0-40 [facility]; [facility] Work Phone: Comment on above: Test(s) 693868-NOT-R ; 210796-HAX-K; 137314-Crgsgbxayqwhz; 128462-Hwdbqlayubs, Total; 806262-UHR-F (Total); 750832-Xdksx LDL-P; 722871-QPJ Size; 912153-TQ-QW Scorewas developed and its performance characteristics determinedby [employer]. It has not been cleared or approved by the Foodand Drug Administration.PATIENT WAS FASTINGPERFORMED BY: BN [employer] [id number] BY: SabakatGallup Indian Medical CenterPeqcua6974 [facility] [id number] AST [Catalytic activity/Vol] 29 U/L Normal 0-40 [facility]; [facility] Work Phone: Comment on above: Test(s) 752985-HGM-H ; 632356-TVR-P; 018104-Dkvbarvefhpql; 594202-Pjodjhtvdbe, Total; 190445-EJI-L (Total); 185342-Vzkux LDL-P; 768887-BTN Size; 465092-VX-VX Scorewas developed and its performance characteristics determinedby [employer]. It has not been cleared or approved by the Foodand Drug Administration.PATIENT WAS FASTINGPERFORMED BY: [employer] [address] [id number] BY: [employer]6370 [facility] [id number] Bilirubin [Mass/Vol] 0.2 mg/dL Normal 0.0-1.2 [facility] Internal Medicine; [facility] Work Phone: Comment on above: Test(s) 672843-UZH-R ; 716679-QDI-T; 509132-Injcasxcymrwp; 543840-Ryibbzatrfw, Total; 888897-WLO-F (Total); 463092-Xpahk LDL-P; 853016-MXH Size; 309028-JZ-GF Scorewas developed and its performance characteristics determinedby [employer]. It has not been cleared or approved by the Foodand Drug Administration.PATIENT WAS FASTINGPERFORMED BY: [employer]ia[employer] [id number] BY: SabakatHackensack University Medical CenterYkgcbn8622 [facility] [id number] Calcium [Mass/Vol] 9.1 mg/dL Normal 8.6-10.2 [facility] Internal [facility]; [facility] Work Phone: Comment on above: Test(s) 210115-QUF-Q ; 412657-AMQ-B; 405491-Hbztkfclggmto; 170359-Pvocytvlgcz, Total; 899100-TZC-J (Total); 299682-Jkgfw LDL-P; 728331-JKH Size; 022305-YD-WB Scorewas developed and its performance characteristics determinedby [employer]. It has not been cleared or approved by the Foodand Drug Administration.PATIENT WAS FASTINGPERFORMED BY: [employer] [address] [id number] BY: Sabakat Kddqil4879 [place] [facility]andiLifeBrite [facility] [id number] Chloride [Moles/Vol] 107 mmol/L Abnormal 96-106 [facility] Internal Medicine; [facility] Work Phone: Comment on above: Test(s) 585263-EIE-K ; 203955-KXW-E; 634112-Iqsfrmkvnqmoo; 704698-Ufgnuejtjju, Total; 812958-TRD-Z (Total); 507151-Fywin LDL-P; 539298-PNX Size; 489660-YW-CE Scorewas developed and its performance characteristics determinedby [employer]. It has not been cleared or approved by the Foodand Drug Administration.PATIENT WAS FASTINGPERFORMED BY: [employer] [address] [id number] BY: [employer]6370 [facility] [id number] CO2 [Moles/Vol] 21 mmol/L Normal 20-29 [facility] Internal Medicine; [facility] Work Phone: Comment on above: Test(s) 197625-VMH-H ; 831860-WMX-B; 978433-Zqhiuwwxbirdf; 995801-Sygzndfnmpp, Total; 086462-HDH-X (Total); 372078-Vabez LDL-P; 106091-XRD Size; 040644-QK-TT Scorewas developed and its performance characteristics determinedby [employer]. It has not been cleared or approved by the Foodand Drug Administration.PATIENT WAS FASTINGPERFORMED BY: [employer] [address] [id number] BY: ClassOwllin6370 [facility] [id number] Creatinine [Mass/Vol] 1.37 mg/dL Abnormal 0.76-1.27 [facility]; [facility] Work Phone: Comment on above: Test(s) 311262-QTP-S ; 564323-TUA-W; 936934-Rbhufjltfbnjs; 501213-Rwaunthrdps, Total; 392797-HEY-G (Total); 700565-Iaffi LDL-P; 262104-LUK Size; 343649-GK-VS Scorewas developed and its performance characteristics determinedby [employer]. It has not been cleared or approved by the Foodand Drug Administration.PATIENT WAS FASTINGPERFORMED BY: [employer] [address] [id number] BY: [employer] Fzvfyn3374 [facility] [id number] GFR/1.73 sq M predicted among blacks CKD-EPI (S/P/Bld) [Vol rate/Area] 62 mL/min/1.73 Normal [facility]; [facility] Work Phone: Comment on above: Test(s) 632078-AQU-A ; 679684-SMI-C; 307894-Geehimzpmmqhp; 946415-Mygixoloiel, Total; 935720-IHR-Z (Total); 715387-Pivqp LDL-P; 298790-QPE Size; 187467-HK-NM Scorewas developed and its performance characteristics determinedby [employer]. It has not been cleared or approved by the Foodand Drug Administration.PATIENT WAS FASTINGPERFORMED BY: [employer] [address] [id number] BY: [employer])[facility] CenterEkujax6560 [facility] [id number] GFR/1.73 sq M predicted among non-blacks CKD-EPI (S/P/Bld) [Vol rate/Area] 53 mL/min/1.73 Abnormal [facility]; [facility] Work Phone: Comment on above: Test(s) 824497-SKH-H ; 641890-JAB-D; 397840-Oleqsadeddvez; 927370-Ijwfoedifsk, Total; 945780-BQE-R (Total); 959313-Tzavb LDL-P; 172161-LIM Size; 196837-MD-HT Scorewas developed and its performance characteristics determinedby [employer]. It has not been cleared or approved by the Foodand Drug Administration.PATIENT WAS FASTINGPERFORMED BY: CoachUp[address] [id number] BY: Ungalli70 [facility] [id number] Globulin (S) [Mass/Vol] 2.6 g/dL Normal 1.5-4.5 [facility] Internal Medicine; [facility] Work Phone: Comment on above: Test(s) 585811-SFV-O ; 719339-ZST-G; 594226-Cumtldxwcqibg; 071549-Vuuszoskkbn, Total; 623140-ANQ-D (Total); 754282-Enumf LDL-P; 911199-GOM Size; 448307-XX-AN Scorewas developed and its performance characteristics determinedby [employer]. It has not been cleared or approved by the Foodand Drug Administration.PATIENT WAS FASTINGPERFORMED BY: CoachUp[address] [id number] BY: Ungalli70 [facility] [id number] Glucose [Mass/Vol] 102 mg/dL Abnormal 65-99 [facility] Internal Medicine; [facility] Internal Medicine Work Phone: Comment on above: Test(s) 804280-FYX-U ; 341612-FZR-C; 624925-Hcyvptwualppp; 868379-Lkkqvkmbduq, Total; 433657-WXV-R (Total); 100810-Lclvu LDL-P; 060674-LUO Size; 797271-SD-SQ Scorewas developed and its performance characteristics determinedby [employer]. It has not been cleared or approved by the Foodand Drug Administration.PATIENT WAS FASTINGPERFORMED BY: [employer] [address] [id number] BY: BettingXpertDublin [place] [id number] Potassium [Moles/Vol] 4.9 mmol/L Normal 3.5-5.2 [facility] Internal Medicine; [facility] Internal Medicine Work Phone: Comment on above: Test(s) 255398-IXE-Y ; 448277-TDS-O; 458366-Rrsheaqlmkqnc; 626080-Fzhzrfbpdlz, Total; 216336-MIH-N (Total); 817561-Kgowz LDL-P; 715298-NCS Size; 869156-PL-JK Scorewas developed and its performance characteristics determinedby [employer] Pharmaceuticals. It has not been cleared or approved by the Foodand Drug Administration.PATIENT WAS FASTINGPERFORMED BY: Runcom [address] [id number] BY: Hitsbook6370 [facility] [id number] Protein [Mass/Vol] 7.1 g/dL Normal 6.0-8.5 [facility] Internal Medicine; [facility] Internal Medicine Work Phone: Comment on above: Test(s) 782840-SGC-L ; 425138-HPN-H; 063359-Gppcnibivkiwz; 435800-Knurjwijnrr, Total; 371533-WJJ-C (Total); 949219-Qwxjp LDL-P; 334551-VQF Size; 552936-AK-HB Scorewas developed and its performance characteristics determinedby [employer]. It has not been cleared or approved by the Foodand Drug Administration.PATIENT WAS FASTINGPERFORMED BY: [employer] [address] [id number] BY: [employer] ([place])Gall[facility] Medical CenterGieufi5322 [facility] [id number] Sodium [Moles/Vol] 144 mmol/L Normal 134-144 [facility] Internal Medicine; [facility] Internal Medicine Work Phone: Comment on above: Test(s) 191264-FLM-S ; 515931-BFC-B; 811100-Tortmnlthplmw; 238970-Oocqdzcgkph, Total; 741952-VTX-O (Total); 198692-Qeafi LDL-P; 295037-GKK Size; 151925-LW-SP Scorewas developed and its performance characteristics determinedby [employer]. It has not been cleared or approved by the Foodand Drug Administration.PATIENT WAS FASTINGPERFORMED BY: Runcom [address] [id number] BY: Ungalli70 [facility] RV CompanyFrye [facility] [id number] Urea nitrogen [Mass/Vol] 22 mg/dL Normal 8-27 [facility]; [facility] Work Phone: Comment on above: Test(s) 984169-IZA-Z ; 588892-BQK-A; 577762-Nyienlstotnfb; 856364-Mqppexwvoej, Total; 925843-RKI-G (Total); 040509-Glvzm LDL-P; 893391-CPF Size; 298946-DL-SP Scorewas developed and its performance characteristics determinedby [employer]. It has not been cleared or approved by the Foodand Drug Administration.PATIENT WAS FASTINGPERFORMED BY: Runcom [address] [id number] BY: LemoptixFrye Regional [facility] [id number] Urea nitrogen/Creatinine [Mass ratio] 16 mg/mg Normal 10-24 [facility]; [facility] Work Phone: Comment on above: Test(s) 760331-PRY-N ; 483012-DCG-K; 570304-Fgddgbsidvcrp; 183020-Mzbqxzakkmq, Total; 682744-WMV-A (Total); 285921-Eqmvn LDL-P; 665365-KBL Size; 450872-GT-UQ Scorewas developed and its performance characteristics determinedby [employer]. It has not been cleared or approved by the Foodand Drug Administration.PATIENT WAS FASTINGPERFORMED BY: Runcom [address] [id number] BY: [employer] Technologies6370 [facility] RV CompanyFrye Regional [facility] Center [facility] [id number] MICROALBUMINOrdered By: Syst em Trimmer Sawyer on 04-30-2020 Albumin DL <= 20 mg/L (U) [Mass/Vol] 16.0 ug/mL Normal Comprehensiv e Internal Medicine; [facility] Work Phone: Comment on above: Test(s) 978814-CRX-Y ; 308997-BJO-V; 316198-Npfztdsnvcveg; 405655-Lccsknxgjef, Total; 596186-CQG-O (Total); 754214-Upqsr LDL-P; 104151-JQE Size; 358257-JR-YX Scorewas developed and its performance characteristics determinedby [employer]. It has not been cleared or approved by the Foodand Drug Administration.PATIENT WAS FASTINGPERFORMED BY: CoachUp[address] [id number] BY: JotkyCarondelet Health [id number] Albumin/Creatinine (U) [Mass ratio] 4 {mg/g_creat} Normal 0-29 [facility]; [facility] Work Phone: Comment on above: Normal: 0 - 29 Moder ately increased: 30 - 300 Severely increased: >300 Please note reference interval change Test(s) 770695-XMG-Y ; 627172-VLR-T; 988448-Mdluxknktfbrw; 319942-Kpyihufnftb, Total; 051896-XUW-K (Total); 332650-Jdqds LDL-P; 374183-TQK Size; 650948-XD-XR Scorewas developed and its performance characteristics determinedby [employer]. It has not been cleared or approved by the FoodSticky Drug Administration.PATIENT WAS FASTINGPERFORMED BY: CoachUp[address] [id number] BY: Ungalli70 ClaytonC[facility]de[facility] [id number] Creatinine (U) [Mass/Vol] 370.9 mg/dL Normal [facility]; [facility] Work Phone: Comment on above: Test(s) 680716-PRL-M ; 259148-QGX-U; 487124-Dyoxrugxlznql; 228465-Kdgztzohzuv, Total; 458902-NTA-S (Total); 734339-Nnlgu LDL-P; 806708-XTJ Size; 542348-NL-IN Scorewas developed and its performance characteristics determinedby [employer]. It has not been cleared or approved by the Foodand Drug Administration.PATIENT WAS FASTINGPERFORMED BY: Runcom [address] [id number] BY: [employer] Nifuub9561 [place] [facility] OperandiLifeBrite [facility] [id number] NMR Profile (17043)Ordered B y: Computer Specialist on 04-30-2020 Cholesterol [Mass/Vol] 137 mg/dL Normal 100-199 [facility]; [facility] Work Phone: Comment on above: Test(s) 218331-HQW-X ; 805919-FXH-Y; 385008-Vuwqufwgwpkga; 033420-Rlvpbvdwghd, Total; 375302-ULV-I (Total); 055454-Rsflq LDL-P; 839640-SHA Size; 626840-AJ-FS Scorewas developed and its performance characteristics determinedby [employer]. It has not been cleared or approved by the Foodand Drug Administration.PATIENT WAS FASTINGPERFORMED BY: Runcom [address] [id number] BY: [employer] Technologies6370 [place] [facility] OperandiLifeBrite [facility] [id number] Lipoprotein.alpha [Moles/Vol] 25.4 umol/L Abnormal [facility]; [facility] Work Phone: Comment on above: Test(s) 439063-URY-U ; 820642-RBT-R; 685168-Vkarzrbmjcbmu; 843870-Lpamxymigrh, Total; 372480-HRY-K (Total); 028622-Lffxf LDL-P; 463739-EUA Size; 399089-SG-HJ Scorewas developed and its performance characteristics determinedby [employer]. It has not been cleared or approved by the Foodand Drug Administration.PATIENT WAS FASTINGPERFORMED BY: Runcom [address] [id number] BY: [employer]6370 [place] OperandiLifeBrite [facility] [id number] Lipoprotein.beta.sub particle [Entitic length] 19.8 nm Abnormal [...] not afterLDL-P is taken into account. Test(s) 669806-LZS-C ; 387383-GMB-L; 140187-Wfigypsxsdrej; 584807-Omewpztfhyg, Total; 438581-AMK-T (Total); 181332-Mtivu LDL-P; 734549-MES Size; 691770-KM-IO Scorewas developed and its performance characteristics determinedby [employer]. It has not been cleared or approved by the Foodand Drug Administration.PATIENT WAS FASTINGPERFORMED BY: LabCo[address] [id number] BY: LabCoHackensack University Medical CenterXmhmwy7073 [facility] [id number] Lipoprotein.beta.sub particle [Moles/Vol] 1175 nmol/L Abnormal Comprehensi ve Internal Medicine; [facility] Work Phone: Comment on above: Low < 1000 Moderate 1000 - 1299 Borderline-High 1300 - 1599 High 1600 - 2000 Very High > 2000 Test(s) 383470-OHY-U ; 372500-ZVP-M; 640618-Jfpayltgngeyk; 849088-Fijozciqnvq, Total; 326984-GJJ-F (Total); 702589-Tmuvf LDL-P; 255685-TTT Size; 827018-JU-IP Scorewas developed and its performance characteristics determinedby [employer]. It has not been cleared or approved by the Foodand Drug Administration.PATIENT WAS FASTINGPERFORMED BY: Runcom [address] [id number] BY: [employer] Rxuktx3493 [facility] [id number] Lipoprotein.beta.sub particle.small [Moles/Vol] 914 nmol/L Abnormal [facility]; [facility] Work Phone: Comment on above: Test(s) 594785-YGY-M ; 537923-XUY-S; 275703-Wjaeuobhuizay; 872155-Uxpwuktjoec, Total; 957590-VVV-E (Total); 723257-Yxdzs LDL-P; 053454-LHP Size; 538783-QV-JY Scorewas developed and its performance characteristics determinedby [employer]. It has not been cleared or approved by the Foodand Drug Administration.PATIENT WAS FASTINGPERFORMED BY: Runcom [address] [id number] BY: [employer] Xbmdre8475 [facility] [id number] Triglyceride [Mass/Vol] 140 mg/dL Normal 0-149 [facility]; [facility] Work Phone: Comment on above: Test(s) 109396-MVJ-I ; 911778-DMG-P; 176351-Ryinqerypvrxi; 104345-Auegjsjghki, Total; 442365-DUX-L (Total); 743146-Zhhej LDL-P; 051138-WUJ Size; 992582-HA-FC Scorewas developed and its performance characteristics determinedby [employer]. It has not been cleared or approved by the Foodand Drug Administration.PATIENT WAS FASTINGPERFORMED BY: CoachUp[address] [id number] BY: Sabakat Ieqfzo7699 [facility] [id number] NMR Profile (91017) 79 mg/dL Normal 0-99 [facility] ehensive Internal Medicine; [facility] Work Phone: Comment on above: . Optimal < 100 Abov e optimal 100 - 129 Borderline 130 - 159 High 160 - 189 Very high > 189 . Test(s) 899114-FII-Q ; 951914-QBS-Y; 232123-Yyansyxguckrm; 697996-Lkganltvnkn, Total; 161940-AQG-H (Total); 738375-Yjoaf LDL-P; 834431-IBD Size; 967275-HM-IY Scorewas developed and its performance characteristics determinedby [employer]. It has not been cleared or approved by the Foodand Drug Administration.PATIENT WAS FASTINGPERFORMED BY: CoachUp[address] [id number] BY: Ungalli70 [facility] [id number] NMR Profile (82504) 33 mg/dL Abnormal [facility]; [facility] Work Phone: Comment on above: Test(s) 782825-PQN-I ; 970804-TVS-L; 747725-Njxxhjngyhrbr; 757196-Iwegbkkzzlc, Total; 469867-QGZ-R (Total); 672224-Kjxqh LDL-P; 221925-SNJ Size; 159051-BC-DH Scorewas developed and its performance characteristics determinedby [employer]. It has not been cleared or approved by the Foodand Drug Administration.PATIENT WAS FASTINGPERFORMED BY: AcadiaSoft[address] [id number] BY: SabakatHackensack University Medical CenterSsjmdl7982 [facility] [id number] NMR Profile (38120) 140 mg/dL Normal 0-149 [facility]; [facility] Work Phone: NMR Profile (40658) 137 mg/dL Normal 100-199 Compr ehensive Internal Medicine; [facility] Work Phone: TSH (77675)Ordered By: Syste m Trimmer Sawyer on 04-30-2020 TSH Qn 1.300 {uIU/mL} Normal 0.450-4.50 0 [facility]; [facility] Work Phone: Comment on above: Test(s) 482296-UMP-G ; 583975-SUM-D; 789288-Oopdperhgmnkc; 289460-Zceawfprpka, Total; 575021-FGK-T (Total); 763731-Dorrj LDL-P; 318817-QFS Size; 799535-KX-EI Scorewas developed and its performance characteristics determinedby [employer]. It has not been cleared or approved by the Foodand Drug Administration.PATIENT WAS FASTINGPERFORMED BY: [employer] [facility] [id number] BY: Ungalli70 [place] [id number] URINALYSIS, W/ MICRO (39156) Ordered By: Computer Specialist on 04-30-2020 Appearance (U) Cloudy Abnormal Comprehens damien Internal Medicine; [facility] Work Phone: Comment on above: Test(s) 254134-ARX-L ; 358490-HDW-H; 122923-Uqfbzioouguyz; 766467-Psrqvyqeulv, Total; 012072-EIF-S (Total); 087835-Ijqrb LDL-P; 350434-FOK Size; 968102-UM-XL Scorewas developed and its performance characteristics determinedby [employer]. It has not been cleared or approved by the Foodand Drug Administration.PATIENT WAS FASTINGPERFORMED BY: CoachUpton1447 [facility] [id number] BY: Ungalli70 [place] [id number] Bilirubin Ql (U) Negative Normal Comprehe nsive Internal Medicine; [facility] Work Phone: Comment on above: Test(s) 136499-UHF-O ; 833938-OJL-S; 448804-Plosirylvpfli; 872971-Ovyoxwijizi, Total; 952934-ZMN-S (Total); 975411-Avmly LDL-P; 842896-OWU Size; 859658-WO-AQ Scorewas developed and its performance characteristics determinedby [employer]. It has not been cleared or approved by the Foodand Drug Administration.PATIENT WAS FASTINGPERFORMED BY: Runcom [address] [id number] BY: Aplica70 [facility] [id number] Bilirubin Ql (U) Negative Normal Comprehe nsive Internal Medicine; [facility] Work Phone: Comment on above: Test(s) 407212-OYW-G ; 375694-DPK-F; 033479-Eolipaiiiqirn; 617779-Flyblsmroun, Total; 795903-JWP-D (Total); 578811-Mhqjd LDL-P; 572464-QUS Size; 225016-BX-FF Scorewas developed and its performance characteristics determinedby [employer]. It has not been cleared or approved by the Foodand Drug Administration.PATIENT WAS FASTINGPERFORMED BY: Runcom [address] [id number] BY: Ungalli70 [place] [employer] OperandiLifeBrite [facility] [id number] Color (U) Yellow Normal [facility]; [facility] Work Phone: Comment on above: Test(s) 966953-SFO-J ; 888085-ALH-X; 322428-Igjxgshywhmzb; 991890-Eswtvzpasqk, Total; 586491-QSD-L (Total); 315492-Wrzcc LDL-P; 341944-BAP Size; 463412-YK-YN Scorewas developed and its performance characteristics determinedby [employer]. It has not been cleared or approved by the Foodand Drug Administration.PATIENT WAS FASTINGPERFORMED BY: Runcom [address] [id number] BY: [employer] Technologies6370 [facility]de[facility] Health [id number] Glucose Ql (U) Negative Normal Comprehens damien Internal Medicine; [facility] Work Phone: Comment on above: Test(s) 066872-BPB-M ; 570525-AOR-R; 029289-Dvnfggijafhxf; 858674-Emlfumqquhc, Total; 291569-ERD-V (Total); 937273-Hlowq LDL-P; 424291-LKT Size; 138547-HT-OZ Scorewas developed and its performance characteristics determinedby [employer]. It has not been cleared or approved by the Foodand Drug Administration.PATIENT WAS FASTINGPERFORMED BY: Runcom [address] [id number] BY: Aplica70 [facility] [id number] Glucose Ql (U) Negative Normal Comprehens damien Internal Medicine; [facility] Work Phone: Comment on above: Test(s) 771750-GQM-M ; 493348-HJB-J; 191587-Etgcfsoroshks; 452634-Rbolncwliyh, Total; 060598-RWS-K (Total); 143134-Fxmsv LDL-P; 982997-RKW Size; 094651-UZ-TZ Scorewas developed and its performance characteristics determinedby [employer]. It has not been cleared or approved by the Foodand Drug Administration.PATIENT WAS FASTINGPERFORMED BY: Runcom [address] [id number] BY: [employer] Duiqdy5180 [facility] [id number] Hemoglobin Ql (U) Negative Normal Compreh ensive Internal Medicine; [facility] Work Phone: Comment on above: Test(s) 466147-WQC-N ; 760026-ACD-B; 157870-Wubsxbvgpohyw; 686533-Ntnhpkowqzt, Total; 712106-ERM-E (Total); 592348-Bodrg LDL-P; 299936-JQY Size; 453865-EX-RF Scorewas developed and its performance characteristics determinedby [employer]. It has not been cleared or approved by the Foodand Drug Administration.PATIENT WAS FASTINGPERFORMED BY: BN LabCo[address] [id number] BY: [employer])[facility] Medical CenterFdadyq2684 [facility] [id number] Hemoglobin Ql (U) Negative Normal Compreh ensive Internal Medicine; [facility] Work Phone: Comment on above: Test(s) 148191-MNS-W ; 780293-YPJ-B; 056799-Qawwbpbmsovcu; 828589-Ectjfuiohrd, Total; 495000-MEF-X (Total); 040010-Jqbmw LDL-P; 430264-WRM Size; 824351-JC-SR Scorewas developed and its performance characteristics determinedby [employer]. It has not been cleared or approved by the Foodand Drug Administration.PATIENT WAS FASTINGPERFORMED BY: [employer] [address] [id number] BY: Aplica70 [facility] [id number] Ketones Ql (U) Trace Abnormal Comprehens damien Internal Medicine; [facility] Work Phone: Comment on above: Test(s) 393263-VTK-H ; 552322-UHE-C; 888595-Flkatjeqisvyd; 625820-Qippbnapjea, Total; 799007-SKK-M (Total); 661384-Giueq LDL-P; 022617-LTF Size; 500709-UT-NJ Scorewas developed and its performance characteristics determinedby [employer]. It has not been cleared or approved by the Foodand Drug Administration.PATIENT WAS FASTINGPERFORMED BY: [employer])[address] [id number] BY: [employer])[facility] CenterXtwhtq6497 [facility] [id number] Leukocyte esterase Test strip Ql (U) Trace Abnormal [facility]; [facility] Work Phone: Comment on above: Test(s) 585824-USH-G ; 650350-EUF-M; 905435-Dklhsitcexzvl; 053042-Fdbgbzbqptj, Total; 284566-YZO-P (Total); 469445-Btaox LDL-P; 980321-HUS Size; 417246-LP-EI Scorewas developed and its performance characteristics determinedby [employer]. It has not been cleared or approved by the Foodand Drug Administration.PATIENT WAS FASTINGPERFORMED BY: Runcom [address] [id number] BY: Sabakat Pyjonh4022 [place] [facility] OperandiLifeBrite [facility] [id number] Microscopic observation LM Nom (Urine sed) See below: Normal [facility]; [facility] Work Phone: Comment on above: Microscopic was jayden cated and was performed. Test(s) 620219-FCW-X ; 426082-RBI-Q; 053442-Vmymrxoexaqzk; 252683-Xavzhhszwom, Total; 391435-KUE-J (Total); 181746-Cvrht LDL-P; 042484-WAY Size; 655516-YB-DS Scorewas developed and its performance characteristics determinedby [employer]. It has not been cleared or approved by the Foodand Drug Administration.PATIENT WAS FASTINGPERFORMED BY: Runcom [address] [id number] BY: LemoptixFrye Regional Medical Center [facility] [id number] Nitrite Ql (U) Negative Normal Comprehens damien Internal Medicine; [facility] Work Phone: Comment on above: Test(s) 570152-OIJ-D ; 467351-WMX-F; 076780-Nxmgbdhutcytv; 698977-Vnwwfztvpxa, Total; 152358-MVQ-K (Total); 569424-Vvjer LDL-P; 797886-CMA Size; 294514-QA-PT Scorewas developed and its performance characteristics determinedby [employer]. It has not been cleared or approved by the Foodand Drug Administration.PATIENT WAS FASTINGPERFORMED BY: Runcom [address] [id number] BY: [employer]6370 [place] [facility] OperandiLifeBrite [facility] [id number] Nitrite Ql (U) Negative Normal Comprehens damien Internal Medicine; [facility] Work Phone: Comment on above: Test(s) 754614-VKY-J ; 003148-JOJ-S; 870333-Rkdsilbxfjmfn; 140537-Qprdgftsghs, Total; 475105-QYL-V (Total); 794926-Kbqod LDL-P; 896411-JZI Size; 820320-VX-YK Scorewas developed and its performance characteristics determinedby [employer]. It has not been cleared or approved by the Foodand Drug Administration.PATIENT WAS FASTINGPERFORMED BY: Runcom [address] [id number] BY: Ungalli70 [facility] [id number] pH (U) 5.5 [pH] Normal 5.0-7.5 [facility]; [facility] Work Phone: Comment on above: Test(s) 531044-CAK-L ; 227853-PIC-U; 393446-Kadlatwaeiimz; 186557-Vpwufjqucfh, Total; 565447-UCN-O (Total); 172135-Pndys LDL-P; 708202-TXM Size; 894019-HH-XK Scorewas developed and its performance characteristics determinedby [employer]. It has not been cleared or approved by the Foodand Drug Administration.PATIENT WAS FASTINGPERFORMED BY: Runcom [address] [id number] BY: [employer]6370 [facility] [id number] Protein Ql (U) Trace Normal Comprehens damien Internal Medicine; [facility] Work Phone: Comment on above: Test(s) 665133-STD-B ; 211869-IQJ-K; 835817-Dtackmloogpjl; 119956-Xcrsaemshck, Total; 654495-MXH-S (Total); 416141-Nbteg LDL-P; 387644-LCF Size; 590189-HQ-RE Scorewas developed and its performance characteristics determinedby [employer]. It has not been cleared or approved by the Foodand Drug Administration.PATIENT WAS FASTINGPERFORMED BY: Runcom [address] [id number] BY: [employer] Technologies6370 ChinaCacheLifeBrite [facility] Hospital [facility] [id number] Specific gravity (U) [Rel density] >=1.030 Abnormal 1.005-1.03 0 [facility]; [facility] Work Phone: Comment on above: Test(s) 727417-CWV-K ; 345805-FZE-Z; 314457-Dynqzljefywid; 325863-Bzrugqszadl, Total; 725631-RTU-L (Total); 322023-Rnwul LDL-P; 409199-LBN Size; 395729-RW-QX Scorewas developed and its performance characteristics determinedby [employer]. It has not been cleared or approved by the Foodand Drug Administration.PATIENT WAS FASTINGPERFORMED BY: CoachUp[address] [id number] BY: Ungalli70 Keystone RV CompanyFrye Regional Medical Center [facility] Campus [id number] Urobilinogen (U) [Mass/Vol] 0.2 mg/dL Normal 0.2-1.0 [facility] Internal Medicine; [facility] Work Phone: Comment on above: Test(s) 667609-EDF-B ; 463587-UXF-G; 884510-Jurlygaxxifyu; 781439-Uootjogktmu, Total; 610232-DMF-P (Total); 464871-Klncj LDL-P; 371669-OPB Size; 356203-JA-QV Scorewas developed and its performance characteristics determinedby [employer]. It has not been cleared or approved by the Foodand Drug Administration.PATIENT WAS FASTINGPERFORMED BY: Runcom Kreitlqvol4529 [facility] [id number] BY: [employer] Technologies6370 ChinaCacheLifeBrite [facility] [id number] Urobilinogen Test strip (U) [Mass/Vol] 0.2 mg/dL Normal 0.2-1.0 [facility] Internal Medicine; [facility] Work Phone: Comment on above: Test(s) 998959-XEK-U ; 413599-AFE-F; 747989-Htpduazvxqzyd; 210368-Rqvnclachen, Total; 187421-IAG-C (Total); 657206-Araja LDL-P; 250508-AEI Size; 725704-GL-EW Scorewas developed and its performance characteristics determinedby I [facility]Two [facility]. It has not been cleared or approved by the Foodand Drug Administration.PATIENT WAS FASTINGPERFORMED BY: [address] [id number] BY: [facility]6370 [facility] [id number] HEPATIC FUNCTION PANEL (8007 6)Ordered By: Computer Specialist on 01-28-2020 Albumin [Mass/Vol] 4.3 g/dL Normal 3.8-4.8 [facility] Internal Medicine Work Phone: Comment on above: PATIENT NOT FASTINGP ERFORMED BY: [facility]6370 [facility] [id number] ALP [Catalytic activity/Vol] 115 [iU]/L Normal 39-117 [facility] Work Phone: Comment on above: PATIENT NOT FASTINGP ERFORMED BY: [facility]6370 [facility] [id number] ALP [Catalytic activity/Vol] 115 U/L Normal 39-117 [facility]; [facility] Work Phone: Comment on above: PATIENT NOT FASTINGP ERFORMED BY: [facility]6370 [facility] [id number] ALT [Catalytic activity/Vol] 25 [iU]/L Normal 0-44 [facility] Work Phone: Comment on above: PATIENT NOT FASTINGP ERFORMED BY: [facility]6370 [facility] [id number] ALT [Catalytic activity/Vol] 25 U/L Normal 0-44 [facility]; [facility] Work Phone: Comment on above: PATIENT NOT FASTINGP ERFORMED BY: [facility]6370 [facility] [id number] AST [Catalytic activity/Vol] 21 [iU]/L Normal 0-40 [facility] Work Phone: Comment on above: PATIENT NOT FASTINGP ERFORMED BY: CAROLA LabRosalba AveryJuyonv8798 Clayton RoadDublin [place] [id number] AST [Catalytic activity/Vol] 21 U/L Normal 0-40 [facility]; [facility] Work Phone: Comment on above: PATIENT NOT FASTINGP ERFORMED BY: CAROLA LabRosalba Tcfuqw8392 Clayton RoadDublin [place] [id number] Bilirubin [Mass/Vol] 0.3 mg/dL Normal 0.0-1.2 Comp [facility] Work Phone: Comment on above: PATIENT NOT FASTINGP ERFORMED BY: CAROLA LabRosalba AveryCyfplh8169 Clayton RoadDublin [place] [id number] Bilirubin.direct [Mass/Vol] 0.07 mg/dL Normal 0.00-0.40 [facility] Work Phone: Comment on above: PATIENT NOT FASTINGP ERFORMED BY: CAROLA LabRosalba Wglijo2808 Clayton RoadDublin [place] [id number] Protein [Mass/Vol] 6.7 g/dL Normal 6.0-8.5 [facility] Internal Medicine Work Phone: Comment on above: PATIENT NOT FASTINGP ERFORMED BY: CAROLA [facility] Setipe5879 [address] RoadDublin [place] [id number] Metabolic Panel, Basic (8004 8)Ordered By: Computer Specialist on 01-28-2020 Calcium [Mass/Vol] 9.0 mg/dL Normal 8.6-10.2 [facility] Internal Medicine Work Phone: Comment on above: PATIENT NOT FASTINGP ERFORMED BY: CAROLA [facility] Iuvwjc6645 [address] RoadDublin [place] [id number] Chloride [Moles/Vol] 103 mmol/L Normal 96-106 [facility] Work Phone: Comment on above: PATIENT NOT FASTINGP ERFORMED BY: CAROLA [facility] Plmmck8915 [address] RoadDublin [place] [id number] CO2 [Moles/Vol] 23 mmol/L Normal 20-29 [facility] Internal Medicine Work Phone: Comment on above: PATIENT NOT FASTINGP ERFORMED BY: CAROLA [facility] Imvute[address] [facility]in [place] [id number] Creatinine [Mass/Vol] 1.24 mg/dL Normal 0.76-1.27 [facility] Work Phone: Comment on above: PATIENT NOT FASTINGP ERFORMED BY: CB [facility] Lhwkkx9491 [address] [facility] [id number] GFR/1.73 sq M predicted among blacks CKD-EPI (S/P/Bld) [Vol rate/Area] 70 mL/min/1.73 Normal [facility] Work Phone: Comment on above: PATIENT NOT FASTINGP ERFORMED BY: CB [facility] Vwubkt2302 [address] [facility] [id number] GFR/1.73 sq M predicted among non-blacks CKD-EPI (S/P/Bld) [Vol rate/Area] 61 mL/min/1.73 Normal [facility] Work Phone: Comment on above: PATIENT NOT FASTINGP ERFORMED BY: CB [facility] Knydtj9270 [facility] [id number] Glucose [Mass/Vol] 92 mg/dL Normal 65-99 [facility] Internal Medicine Work Phone: Comment on above: PATIENT NOT FASTINGP ERFORMED BY: CB [facility] Uehfbb3484 [facility] [id number] Potassium [Moles/Vol] 4.5 mmol/L Normal 3.5-5.2 [facility] Work Phone: Comment on above: PATIENT NOT FASTINGP ERFORMED BY: CB [facility] Osdmvq7234 [facility] [id number] Sodium [Moles/Vol] 140 mmol/L Normal 134-144 [facility] Internal Medicine Work Phone: Comment on above: PATIENT NOT FASTINGP ERFORMED BY: CB [facility] Pcvfcf3288 [facility] [id number] Urea nitrogen [Mass/Vol] 22 mg/dL Normal 8-27 [facility] Work Phone: Comment on above: PATIENT NOT FASTINGP ERFORMED BY: [facility]6370 [facility] [id number] Urea nitrogen/Creatinine [Mass ratio] 18 mg/mg Normal 10-24 [facility] Work Phone: Comment on above: PATIENT NOT FASTINGP ERFORMED BY: [facility]6370 [facility] [id number] Blood Glucose , Office (8296 2)Ordered By: Marilynn Wallace on 12-27-2019 Glucose Glucometer (BldC) [Moles/Vol] 124 1 Normal [facility] Work Phone: CALCIFEDIOL ([id number])Ordered B y: Computer Specialist on 12-27-2019 25-Hydroxyvitamin D2+25-Hydroxyvitamin D3 [Mass/Vol] 35.4 ng/mL Normal 30.0-100.0 [facility] Work Phone: Comment on above: Vitamin D deficiency has been defined by the [place] of[place]icine and an Endocrine Society practice guideline as alevel of serum 25-OH vitamin D less than 20 ng/mL (1,2).The Endocrine Society went on to further define vitamin Dinsufficiency as a level between 21 and 29 ng/mL (2).1. IOM ([place] of Medicine). 2010. Dietary reference intakes for calcium and D. [place]: The National Academies Press.2. Rayna MF, Ana Luisa NC, William CUBA, et al. Evaluation, treatment, and prevention of vitamin D deficiency: an Endocrine Society clinical practice guideline. JCEM. 2010; 96(7):1911-30. Test(s) 294553-PFM-G ; 624926-KVU-P; 331231-JOU-P; 338080-Utsjcjrpdlouu; 058449-Ptfnpdkwbdv, Total; 664169-VNB-Y (Total);680117-Ylnfj LDL-P; 656535-SYX Size; 443217-JE-ZS Scorewas developed and its performance characteristics determinedby [employer]. It has not been cleared or approved by the Foodand Drug Administration.PATIENT WAS FASTINGPERFORMED BY: [employer] [address] [id number] BY: Ungalli[address] [place] OperandiLifeBrite [facility] [id number] CBC W/AUTO DIFF WBC (11831)O rdered By: Computer Specialist on 12-27-2019 Basophils (Bld) [#/Vol] 0.1 {x10E3/uL} Normal 0.0-0.2 [facility] Work Phone: Comment on above: Test(s) 685784-SIX-Z ; 005273-PHN-E; 065499-IPZ-C; 059448-Tezflmfwynsra; 366657-Aeuwnjmigjk, Total; 780837-VPA-N (Total);235439-Fvhjh LDL-P; 848102-AOE Size; 489620-QL-IX Scorewas developed and its performance characteristics determinedby [employer]. It has not been cleared or approved by the Foodand Drug Administration.PATIENT WAS FASTINGPERFORMED BY: [employer] [address] [id number] BY: [employer] Mod[place] OperandiLifeBrite [facility] [id number] Basophils (Bld) [#/Vol] 0.1 10*3/uL Normal 0.0-0.2 [facility]; [facility] Work Phone: Comment on above: Test(s) 865651-BHF-U ; 869993-BKA-H; 018826-TSH-F; 732798-Zenjgruraldux; 486534-Appprbfzbiv, Total; 616570-JDQ-N (Total);383202-Rwily LDL-P; 139975-HXU Size; 401161-XR-QT Scorewas developed and its performance characteristics determinedby [employer]. It has not been cleared or approved by the Foodand Drug Administration.PATIENT WAS FASTINGPERFORMED BY: [employer] [address] [id number] BY: Ungalli70 [place] OperandiLifeBrite [facility] [id number] Basophils/100 WBC (Bld) 1 % Normal [facility] Work Phone: Comment on above: Test(s) 346096-LQM-O ; 521965-NVX-O; 207757-EFV-X; 122078-Efbshecxprojf; 906750-Upcifclobck, Total; 247004-QZI-Z (Total);720669-Dzhgo LDL-P; 267727-QGV Size; 506602-OT-RR Scorewas developed and its performance characteristics determinedby [employer]. It has not been cleared or approved by the Foodand Drug Administration.PATIENT WAS FASTINGPERFORMED BY: [employer] [address] [id number] BY: Ungalli70 [facility] [id number] Eosinophils (Bld) [#/Vol] 0.2 {x10E3/uL} Normal 0.0-0.4 [facility] Work Phone: Comment on above: Test(s) 848493-BGL-R ; 859100-KME-V; 956770-VGX-X; 390775-Qxcjreszvqguo; 029061-Vvuovhhufqr, Total; 390016-ZPA-T (Total);547751-Tmqju LDL-P; 865492-NLK Size; 593397-PI-TJ Scorewas developed and its performance characteristics determinedby [employer]. It has not been cleared or approved by the Foodand Drug Administration.PATIENT WAS FASTINGPERFORMED BY: [employer] [address] [id number] BY: [employer] Pmhzwj6626 [facility] [id number] Eosinophils (Bld) [#/Vol] 0.2 10*3/uL Normal 0.0-0.4 [facility]; [facility] Work Phone: Comment on above: Test(s) 016596-GOZ-L ; 391156-NMS-Y; 253576-KTM-E; 832840-Dyrgyzkztnuvf; 201178-Yusbexjbgbq, Total; 610028-UTI-T (Total);063362-Noqsw LDL-P; 065862-XGN Size; 038089-FI-WL Scorewas developed and its performance characteristics determinedby [employer]. It has not been cleared or approved by the Foodand Drug Administration.PATIENT WAS FASTINGPERFORMED BY: [employer] [address] [id number] BY: [employer])Gall[facility] Medical CenterFdjeus6742 [facility] [id number] Eosinophils/100 WBC (Bld) 1 % Normal [facility] Work Phone: Comment on above: Test(s) 012402-JMM-I ; 808720-JEB-U; 926832-ODC-Y; 908348-Gywmzmkvnugzt; 192878-Zoymugjzxbr, Total; 175339-LKW-X (Total);281526-Jqbmv LDL-P; 597352-YNQ Size; 297426-WR-CZ Scorewas developed and its performance characteristics determinedby [employer]. It has not been cleared or approved by the Foodand Drug Administration.PATIENT WAS FASTINGPERFORMED BY: [employer] [address] [id number] BY: Ungalli70 [facility] [id number] Erythrocyte distribution width (RBC) [Ratio] 14.2 % Normal 11.6-15.4 [facility] Work Phone: Comment on above: Test(s) 892951-TKA-P ; 819695-SVN-F; 793134-OYE-F; 974874-Yjhsivagbnjfa; 131540-Ihsigiusrky, Total; 126719-FBN-G (Total);848448-Gxkkh LDL-P; 070148-DLK Size; 155454-OD-XL Scorewas developed and its performance characteristics determinedby [employer]. It has not been cleared or approved by the Foodand Drug Administration.PATIENT WAS FASTINGPERFORMED BY: [employer] [address] [id number] BY: ClassOwllin6370 [facility] [id number] Hematocrit (Bld) [Volume fraction] 43.3 % Normal 37.5-51.0 [facility] Work Phone: Comment on above: Test(s) 697084-DID-V ; 868954-CSS-S; 168769-PFJ-W; 744550-Xxypticvtbrpa; 046761-Gevvdmezkly, Total; 527915-UTH-U (Total);212519-Cissq LDL-P; 145118-TZU Size; 731464-MA-UR Scorewas developed and its performance characteristics determinedby [employer]. It has not been cleared or approved by the Foodand Drug Administration.PATIENT WAS FASTINGPERFORMED BY: CoachUp[address] [id number] BY: Ungalli70 ChinaCacheLifeBrite [facility] [id number] Hemoglobin (Bld) [Mass/Vol] 15.2 g/dL Normal 13.0-17.7 [facility] Work Phone: Comment on above: Test(s) 934045-KMC-M ; 907201-ZGV-J; 702391-TTP-S; 097519-Qqhigogkmqouz; 060372-Ffprgwvyizv, Total; 376396-WDS-E (Total);325601-Prrmh LDL-P; 237658-BFO Size; 101015-MF-NS Scorewas developed and its performance characteristics determinedby [employer]. It has not been cleared or approved by the Foodand Drug Administration.PATIENT WAS FASTINGPERFORMED BY: [employer] [address] [id number] BY: [employer] Cpjcwo2790 [address] Mod[place] OperandiLifeBrite [facility] [id number] Immature granulocytes (Bld) [#/Vol] 0.2 {x10E3/uL} Abnormal 0.0-0.1 [facility] Work Phone: Comment on above: (An elevated percent age of Immature Granulocytes has not been foundto be clinically significant as a sole clinical predictor of disease.Does NOT include bands or blast cells. associatedphysiological leukocytosis may also show increased immaturegranulocytes without clinical significance.) Test(s) 057671-ING-H ; 975646-EUT-A; 550284-HBJ-L; 752650-Urwomfnbhcrta; 193382-Mrxdgfidqff, Total; 607099-VJT-V (Total);880302-Vvwmw LDL-P; 091169-OVT Size; 241783-PY-VV Scorewas developed and its performance characteristics determinedby [employer]. It has not been cleared or approved by the Foodand Drug Administration.PATIENT WAS FASTINGPERFORMED BY: [employer] [address] [id number] BY: Ungalli70 [facility] [id number] Immature granulocytes (Bld) [#/Vol] 0.2 10*3/uL Abnormal 0.0-0.1 [facility]; [facility] Work Phone: Comment on above: (An elevated percent age of Immature Granulocytes has not been foundto be clinically significant as a sole clinical predictor of disease.Does NOT include bands or blast cells. associatedphysiological leukocytosis may also show increased immaturegranulocytes without clinical significance.) Test(s) 704417-XHX-T ; 118506-HVP-R; 662796-CHN-F; 775345-Rbbfrrrynsiyt; 762579-Fcazpphuzik, Total; 600654-OQS-Z (Total);003414-Kgpnj LDL-P; 577828-GSC Size; 537312-TR-ID Scorewas developed and its performance characteristics determinedby [employer]. It has not been cleared or approved by the Foodand Drug Administration.PATIENT WAS FASTINGPERFORMED BY: [employer] [address] [id number] BY: [employer] Nqxkys0785 [facility] [id number] Immature granulocytes/100 WBC (Bld) 2 % Normal [facility] Work Phone: Comment on above: Test(s) 056278-THK-C ; 862807-DRA-W; 409894-DXW-F; 447104-Wcylstahsbfon; 778235-Icojtzwmwpm, Total; 218841-CDM-G (Total);076825-Poood LDL-P; 456557-OGP Size; 131014-JR-QX Scorewas developed and its performance characteristics determinedby [employer]. It has not been cleared or approved by the Foodand Drug Administration.PATIENT WAS FASTINGPERFORMED BY: [employer] [id number] BY: [employer])[facility] CenterThyial4214 [facility] [id number] Lymphocytes (Bld) [#/Vol] 1.6 {x10E3/uL} Normal 0.7-3.1 [facility] Work Phone: Comment on above: Test(s) 796120-AFJ-J ; 120590-YSN-E; 165906-QZH-U; 718937-Sfgmkrldifcjg; 388746-Mznmfenlmzq, Total; 205417-QTZ-M (Total);531992-Nckob LDL-P; 870444-LYF Size; 577708-EQ-VS Scorewas developed and its performance characteristics determinedby [employer]. It has not been cleared or approved by the Foodand Drug Administration.PATIENT WAS FASTINGPERFORMED BY: [employer] [address] [id number] BY: [employer])[facility] Medical CenterFnkkiy5195 [facility] [id number] Lymphocytes (Bld) [#/Vol] 1.6 10*3/uL Normal 0.7-3.1 [facility]; [facility] Work Phone: Comment on above: Test(s) 677590-DYZ-I ; 969380-GUO-E; 947931-GKA-Z; 097383-Urpfkmwperokb; 728662-Wvdjbixcwyj, Total; 421976-PPX-X (Total);247734-Ldzhj LDL-P; 571321-QCN Size; 211641-JR-ZT Scorewas developed and its performance characteristics determinedby [employer]. It has not been cleared or approved by the Foodand Drug Administration.PATIENT WAS FASTINGPERFORMED BY: [employer] [id number] BY: [employer] 6221570 [facility] [id number] Lymphocytes/100 WBC (Bld) 14 % Normal [facility] Work Phone: Comment on above: Test(s) 222052-OAL-E ; 604987-DOV-B; 380796-NCV-D; 244497-Bqvxzvrlkeuqn; 487310-Bmcgvcwuzqx, Total; 494198-MLH-B (Total);035828-Afado LDL-P; 008076-HLJ Size; 387172-VV-TM Scorewas developed and its performance characteristics determinedby [employer]. It has not been cleared or approved by the Foodand Drug Administration.PATIENT WAS FASTINGPERFORMED BY: iiyuma[address] [id number] BY: [employer] Cqtcuw8552 [facility] [id number] MCH (RBC) [Entitic mass] 31.6 pg Normal 26.6-33.0 [facility] Work Phone: Comment on above: Test(s) 027390-COU-D ; 723259-INV-J; 079084-HHM-S; 764149-Ebidtinssgfvm; 258127-Uwqgnfrzrpc, Total; 883409-EOU-D (Total);413694-Fozeb LDL-P; 453971-YXR Size; 806177-RJ-IF Scorewas developed and its performance characteristics determinedby [employer]. It has not been cleared or approved by the Foodand Drug Administration.PATIENT WAS FASTINGPERFORMED BY: iiyuma[address] [id number] BY: [employer])[facility] CenterNuhfbn2128 [facility] [id number] MCHC (RBC) [Mass/Vol] 35.1 g/dL Normal 31.5-35.7 [facility] Work Phone: Comment on above: Test(s) 265458-KIP-N ; 142282-HOV-B; 041593-OCN-J; 109904-Caimkoczwumxy; 997190-Phkdraaqvpl, Total; 059144-STZ-J (Total);307491-Yjwca LDL-P; 032620-DOO Size; 856108-TU-FB Scorewas developed and its performance characteristics determinedby [employer]. It has not been cleared or approved by the Foodand Drug Administration.PATIENT WAS FASTINGPERFORMED BY: [employer] [address] [id number] BY: Hitsbook6370 [employer] RV CompanyFrye [facility] [id number] MCV (RBC) [Entitic vol] 90 fL Normal 79-97 [facility] Work Phone: Comment on above: Test(s) 823776-UNT-G ; 015685-NUQ-Q; 112613-SVX-B; 413150-Wdjxbkurubudf; 872589-Urqakbewnsv, Total; 462927-ZZV-K (Total);923281-Yowsw LDL-P; 693833-QZX Size; 746269-UC-VN Scorewas developed and its performance characteristics determinedby [employer]. It has not been cleared or approved by the Foodand Drug Administration.PATIENT WAS FASTINGPERFORMED BY: [employer] [address] [id number] BY: Ungalli70 [employer] [facility] CompanyFrye [facility] [id number] Monocytes (Bld) [#/Vol] 0.8 {x10E3/uL} Normal 0.1-0.9 [facility] Work Phone: Comment on above: Test(s) 037685-LLK-D ; 989011-YYL-K; 275733-HMJ-O; 174811-Veekvbidpeoog; 578929-Hqrxvafzaxc, Total; 427886-FPK-V (Total);085503-Ilkas LDL-P; 938469-EYD Size; 913316-OE-IW Scorewas developed and its performance characteristics determinedby [employer]. It has not been cleared or approved by the Foodand Drug Administration.PATIENT WAS FASTINGPERFORMED BY: [employer] [address] [id number] BY: [employer]6[address] [place] OperandiLifeBrite [facility] [id number] Monocytes (Bld) [#/Vol] 0.8 10*3/uL Normal 0.1-0.9 [facility]; [facility] Work Phone: Comment on above: Test(s) 839593-OAU-V ; 444885-TRP-G; 339203-OWD-D; 248637-Lndgiyluhukhl; 826991-Dpfzcivtwqe, Total; 749719-VEX-V (Total);578844-Epjbs LDL-P; 299511-MAN Size; 685435-ER-DY Scorewas developed and its performance characteristics determinedby [employer]. It has not been cleared or approved by the Foodand Drug Administration.PATIENT WAS FASTINGPERFORMED BY: CoachUp[address] [id number] BY: Ungalli70 [facility] [id number] Monocytes/100 WBC (Bld) 7 % Normal [facility] Work Phone: Comment on above: Test(s) 477616-FGG-D ; 963473-FBD-X; 862391-WPN-M; 989818-Hwjqxeykimelt; 522922-Immcpvazugf, Total; 428796-MOA-L (Total);565814-Odvqj LDL-P; 115954-JZK Size; 567907-JY-JR Scorewas developed and its performance characteristics determinedby [employer]. It has not been cleared or approved by the Foodand Drug Administration.PATIENT WAS FASTINGPERFORMED BY: CoachUp[address] [id number] BY: [employer] Pnnuha9168 [facility] [id number] Neutrophils (Bld) [#/Vol] 8.6 {x10E3/uL} Abnormal 1.4-7.0 [facility] Work Phone: Comment on above: Test(s) 528548-BJH-G ; 991850-ETC-W; 888601-QKY-O; 210761-Ndcyjiywbblpx; 929456-Dkvwprrevnl, Total; 651748-EEA-H (Total);172394-Jmyuo LDL-P; 489771-WSG Size; 211449-BP-VE Scorewas developed and its performance characteristics determinedby [employer]. It has not been cleared or approved by the Foodand Drug Administration.PATIENT WAS FASTINGPERFORMED BY: [employer] [address] [id number] BY: [employer] Sxpwav2909 [facility] [id number] Neutrophils (Bld) [#/Vol] 8.6 10*3/uL Abnormal 1.4-7.0 [facility]; [facility] Work Phone: Comment on above: Test(s) 887396-KJJ-U ; 324462-VKC-Q; 834096-LXF-D; 453402-Tfarvqlhxogsf; 045826-Hjawnpabtix, Total; 438634-MUD-V (Total);645055-Cucrr LDL-P; 040276-ANJ Size; 165656-KQ-JL Scorewas developed and its performance characteristics determinedby [employer]. It has not been cleared or approved by the Foodand Drug Administration.PATIENT WAS FASTINGPERFORMED BY: [employer] [address] [id number] BY: Ungalli70 [place] OperandiLifeBrite [facility] [id number] Neutrophils/100 WBC (Bld) 75 % Normal [facility] Work Phone: Comment on above: Test(s) 961054-NUY-K ; 546239-QFO-A; 985497-JJQ-H; 303331-Dunzecffjmjhi; 003359-Rrgnlntrral, Total; 672800-DYA-O (Total);826421-Xvzfr LDL-P; 866138-JMY Size; 128030-FC-BS Scorewas developed and its performance characteristics determinedby [employer]. It has not been cleared or approved by the Foodand Drug Administration.PATIENT WAS FASTINGPERFORMED BY: AcadiaSoft[address] [id number] BY: [employer] Pssktq2762 [facility] [id number] Platelets (Bld) [#/Vol] 196 {x10E3/uL} Normal 150-450 [facility] Internal Medicine Work Phone: Comment on above: Test(s) 413311-WPV-Y ; 355201-ETB-V; 862192-EXE-B; 510997-Hdgmlvxdzconn; 256360-Bmsvgltdzdu, Total; 376113-COA-D (Total);894159-Tjoff LDL-P; 567505-EOJ Size; 966036-LX-AO Scorewas developed and its performance characteristics determinedby [employer]. It has not been cleared or approved by the Foodand Drug Administration.PATIENT WAS FASTINGPERFORMED BY: CoachUp[address] [id number] BY: Ungalli70 [facility] [id number] Platelets (Bld) [#/Vol] 196 10*3/uL Normal 150-450 [facility] Internal [facility]; [facility] Work Phone: Comment on above: Test(s) 983866-HIT-D ; 570848-MYH-B; 037400-RQH-K; 570874-Qilkdvsgzclox; 116154-Xqwhlvivkxg, Total; 999516-TSV-Z (Total);584159-Clvaz LDL-P; 695672-IAX Size; 419406-WR-YP Scorewas developed and its performance characteristics determinedby [employer]. It has not been cleared or approved by the Foodand Drug Administration.PATIENT WAS FASTINGPERFORMED BY: CoachUp[address] [id number] BY: [employer]6370 [facility] [id number] RBC (Bld) [#/Vol] 4.81 {x10E6/uL} Normal 4.14-5.80 [facility] Internal Medicine Work Phone: Comment on above: Test(s) 281586-VOK-E ; 198455-OCG-Z; 787002-ZWT-H; 502605-Ybshgtwjmfpgp; 978253-Ozcxherdcor, Total; 785028-GVA-V (Total);055406-Hsucm LDL-P; 532361-LZD Size; 079016-GC-YO Scorewas developed and its performance characteristics determinedby [employer]. It has not been cleared or approved by the Foodand Drug Administration.PATIENT WAS FASTINGPERFORMED BY: CoachUp[address] [id number] BY: [employer]6[address] [place] OperandiLifeBrite [facility] [id number] RBC (Bld) [#/Vol] 4.81 10*6/uL Normal 4.14-5.80 [facility] Internal Medicine; [place] [facility] Work Phone: Comment on above: Test(s) 101660-XUF-A ; 593968-BSA-N; 282150-CWX-K; 083143-Eikjylzaxzbqk; 333814-Xdisitawmel, Total; 935996-ZPM-G (Total);965737-Dqxxj LDL-P; 817391-XUW Size; 418606-LZ-DN Scorewas developed and its performance characteristics determinedby [employer]. It has not been cleared or approved by the Foodand Drug Administration.PATIENT WAS FASTINGPERFORMED BY: CoachUp[address] [id number] BY: [employer] Netnui.comF[facility] [id number] WBC (Bld) [#/Vol] 11.4 {x10E3/uL} Abnormal 3.4-10.8 [facility] Internal Medicine Work Phone: Comment on above: Test(s) 177832-EDB-V ; 310614-ZNR-X; 597612-PGW-S; 796781-Wdjqkqmeknvfl; 718257-Vpgmybuhukk, Total; 407526-CGB-D (Total);814964-Obbvc LDL-P; 991149-SGW Size; 635249-YR-XT Scorewas developed and its performance characteristics determinedby [employer]. It has not been cleared or approved by the Foodand Drug Administration.PATIENT WAS FASTINGPERFORMED BY: CoachUp[address] [id number] BY: Ungalli70 [facility] [id number] WBC (Bld) [#/Vol] 11.4 10*3/uL Abnormal 3.4-10.8 [facility] Internal Medicine; [facility] Work Phone: Comment on above: Test(s) 739802-JOG-S ; 161753-JOR-X; 413016-TDU-X; 462323-Catxgffngkvcm; 541410-Jrbxwmnwqwf, Total; 136149-ESH-U (Total);025033-Ulszd LDL-P; 820185-EKW Size; 688169-HS-WU Scorewas developed and its performance characteristics determinedby [employer]. It has not been cleared or approved by the Foodand Drug Administration.PATIENT WAS FASTINGPERFORMED BY: [employer] [address] [id number] BY: Aplica70 [facility] [id number] HgA1C , Office ([id number])Ordere d By: Marilynn Wallace on 12-27-2019 HbA1c (Bld) [Mass fraction] 5.6 % Normal 4.6 - 7.1 [facility] Work Phone: METABOLIC PANEL, COMPREHENSI VE ([id number])Ordered By: Computer Specialist on 12-27-2019 Albumin [Mass/Vol] 4.4 g/dL Normal 3.8-4.8 [facility] Internal Medicine Work Phone: Comment on above: Test(s) 255766-APB-V ; 630150-GSB-Q; 759624-FHT-W; 338690-Kszxeiybzujmq; 090088-Ddpcvzgxmsg, Total; 831134-GRR-G (Total);468039-Ehplf LDL-P; 792522-PWD Size; 524111-AC-CF Scorewas developed and its performance characteristics determinedby [employer]. It has not been cleared or approved by the Foodand Drug Administration.PATIENT WAS FASTINGPERFORMED BY: [employer] [id number] BY: [employer] Xytuww3162 [facility] [id number] Albumin/Globulin [Mass ratio] 2.0 {ratio} Normal 1.2-2.2 [facility] Work Phone: Comment on above: Test(s) 052585-BRB-X ; 138626-USV-Z; 306360-AMB-L; 685535-Hqrfjypvdhjpj; 999774-Ynfpqikkenw, Total; 800537-GBN-W (Total);188754-Oapro LDL-P; 158066-VYP Size; 887777-TI-WJ Scorewas developed and its performance characteristics determinedby [employer]. It has not been cleared or approved by the Foodand Drug Administration.PATIENT WAS FASTINGPERFORMED BY: CoachUp[address] [id number] BY: Ungalli70 [place] Netnui.comFrye [facility] [id number] ALP [Catalytic activity/Vol] 141 [iU]/L Abnormal 39117 [facility] Work Phone: Comment on above: Test(s) 625319-RMM-S ; 474832-VIU-Y; 922685-XQM-W; 035977-Gitbkdnlncymj; 505790-Ovbkwdagqip, Total; 602205-DLU-A (Total);378828-Ouwzt LDL-P; 889462-HOS Size; 088958-LV-AK Scorewas developed and its performance characteristics determinedby [employer]. It has not been cleared or approved by the Foodand Drug Administration.PATIENT WAS FASTINGPERFORMED BY: [employer] [address] [id number] BY: [employer] Azvyxz1796 [facility] [id number] ALP [Catalytic activity/Vol] 141 U/L Abnormal 39-117 [facility]; [facility] Work Phone: Comment on above: Test(s) 766055-XIV-S ; 141804-WDP-U; 920057-PYY-J; 431468-Ewglzamhqlhod; 346380-Mqyysukopxf, Total; 035744-BWV-W (Total);190333-Otqai LDL-P; 409254-KJY Size; 417131-RN-CI Scorewas developed and its performance characteristics determinedby [employer]. It has not been cleared or approved by the Foodand Drug Administration.PATIENT WAS FASTINGPERFORMED BY: [employer] [id number] BY: [employer])Gall[facility] Medical CenterShzwpc8350 [facility] [id number] ALT [Catalytic activity/Vol] 102 [iU]/L Abnormal 0-44 [facility] Work Phone: Comment on above: Test(s) 117928-DTV-J ; 947729-JFJ-O; 773891-FTC-A; 640365-Skbhudjrqjuan; 121679-Yzjqdzpxslz, Total; 607048-LSG-C (Total);755310-Lkmro LDL-P; 240781-JOS Size; 683089-FL-VI Scorewas developed and its performance characteristics determinedby [employer]. It has not been cleared or approved by the Foodand Drug Administration.PATIENT WAS FASTINGPERFORMED BY: [employer] [id number] BY: [employer] Fgczbp5207 [facility] [id number] ALT [Catalytic activity/Vol] 102 U/L Abnormal 0-44 [facility]; [facility] Work Phone: Comment on above: Test(s) 107537-LWL-J ; 183339-YVR-V; 808971-XHB-C; 459601-Fvhhpjjjofuqj; 545708-Tteevgpqoaz, Total; 470860-DBP-Y (Total);302003-Glseo LDL-P; 273797-ROP Size; 144047-XI-FP Scorewas developed and its performance characteristics determinedby [employer]. It has not been cleared or approved by the Foodand Drug Administration.PATIENT WAS FASTINGPERFORMED BY: [employer] [id number] BY: [employer])[facility] CenterKubguc5124 [facility] [id number] AST [Catalytic activity/Vol] 57 [iU]/L Abnormal 0-40 [facility] Work Phone: Comment on above: Test(s) 125662-KEL-C ; 873265-CTU-F; 240305-DRX-D; 572236-Wskhvpuvmpdkj; 606122-Uczvxvojmwk, Total; 362737-OFJ-N (Total);491954-Jwewp LDL-P; 540260-GID Size; 690449-XS-BC Scorewas developed and its performance characteristics determinedby [employer]. It has not been cleared or approved by the Foodand Drug Administration.PATIENT WAS FASTINGPERFORMED BY: [employer] [address] [id number] BY: Ungalli70 Keystone RV CompanyFrye Regional Medical Center [facility] Campus [id number] AST [Catalytic activity/Vol] 57 U/L Abnormal 0-40 [facility]; [facility] Internal Medicine Work Phone: Comment on above: Test(s) 512366-WPZ-W ; 975093-JUB-B; 858195-DEL-I; 413342-Vxlwqhcwehjic; 290644-Wibfurggyqp, Total; 611260-HBJ-W (Total);700337-Giuvp LDL-P; 927812-TLJ Size; 683791-CM-CQ Scorewas developed and its performance characteristics determinedby [employer]. It has not been cleared or approved by the Foodand Drug Administration.PATIENT WAS FASTINGPERFORMED BY: [employer] [address] [id number] BY: [employer] Moda OperandiLifeBrite [facility] [id number] Bilirubin [Mass/Vol] 0.3 mg/dL Normal 0.0-1.2 [facility] Internal Medicine Work Phone: Comment on above: Test(s) 750473-BPN-Q ; 792840-SFF-K; 796212-YJI-I; 825343-Mwzzslyhgplww; 826586-Oryuinozpmf, Total; 222311-XYZ-N (Total);298700-Celrq LDL-P; 405497-SHE Size; 607603-XK-NW Scorewas developed and its performance characteristics determinedby [employer]. It has not been cleared or approved by the Foodand Drug Administration.PATIENT WAS FASTINGPERFORMED BY: CoachUp[address] [id number] BY: [employer] Azwuvc3[address] Moda OperandiLifeBrite [facility] [id number] Calcium [Mass/Vol] 9.4 mg/dL Normal 8.6-10.2 [facility] Internal Medicine Work Phone: Comment on above: Test(s) 020178-BEB-U ; 718460-YWB-J; 600634-IJB-P; 313569-Bsdgfyzyinehe; 119790-Imbkctfgkor, Total; 454720-TEZ-B (Total);181678-Txrdp LDL-P; 267666-SOT Size; 109076-PP-SS Scorewas developed and its performance characteristics determinedby [employer]. It has not been cleared or approved by the Foodand Drug Administration.PATIENT WAS FASTINGPERFORMED BY: CoachUp[address] [id number] BY: [employer]6370 [facility] [id number] Chloride [Moles/Vol] 104 mmol/L Normal 96-106 [facility] Internal Medicine Work Phone: Comment on above: Test(s) 207870-CAA-E ; 050579-BLR-C; 798153-MHP-T; 221197-Spoetqiabhbhz; 332533-Apicstckmxh, Total; 443601-LDP-B (Total);856376-Pfvha LDL-P; 954433-DBX Size; 437506-EF-AM Scorewas developed and its performance characteristics determinedby [employer]. It has not been cleared or approved by the Foodand Drug Administration.PATIENT WAS FASTINGPERFORMED BY: [employer] [address] [id number] BY: Sabakat Ibhyhy4027 [facility] [id number] CO2 [Moles/Vol] 21 mmol/L Normal 20-29 [facility] Internal Medicine Work Phone: Comment on above: Test(s) 499542-YYG-B ; 703286-CQN-V; 705982-EMD-Z; 773278-Jwuswtrwtbali; 433378-Naqtcqazloj, Total; 059674-TRM-T (Total);065832-Qvcql LDL-P; 198413-JRQ Size; 808234-LA-AT Scorewas developed and its performance characteristics determinedby [employer]. It has not been cleared or approved by the Foodand Drug Administration.PATIENT WAS FASTINGPERFORMED BY: [employer] [address] [id number] BY: Ungalli70 [facility] [id number] Creatinine [Mass/Vol] 1.24 mg/dL Normal 0.76-1.27 [facility] Work Phone: Comment on above: Test(s) 744220-XUO-U ; 335386-CEC-I; 234133-IGH-D; 695921-Lujurhbwbwgdl; 571731-Hwbwnikgvco, Total; 321774-DXF-J (Total);406187-Onvul LDL-P; 464357-WBY Size; 693565-LU-SM Scorewas developed and its performance characteristics determinedby [employer]. It has not been cleared or approved by the Foodand Drug Administration.PATIENT WAS FASTINGPERFORMED BY: [employer] [address] [id number] BY: [employer] Rkjdxv3057 [facility] [id number] GFR/1.73 sq M predicted among blacks CKD-EPI (S/P/Bld) [Vol rate/Area] 70 mL/min/1.73 Normal [facility] Work Phone: Comment on above: Test(s) 489337-NUJ-N ; 637959-PPY-K; 312281-SKJ-G; 870867-Lpagaellqgudt; 779313-Xdlxzxkjuyg, Total; 940229-ZML-G (Total);062765-Obctz LDL-P; 599922-DYB Size; 025835-JS-OX Scorewas developed and its performance characteristics determinedby [employer]. It has not been cleared or approved by the Foodand Drug Administration.PATIENT WAS FASTINGPERFORMED BY: [employer] [address] [id number] BY: Ungalli70 [facility] [id number] GFR/1.73 sq M predicted among non-blacks CKD-EPI (S/P/Bld) [Vol rate/Area] 61 mL/min/1.73 Normal [facility] Work Phone: Comment on above: Test(s) 626877-PYC-K ; 926730-VKW-N; 950017-HMI-T; 877203-Atyhxmmwihxha; 155253-Dwexbrmqtaj, Total; 421369-OXB-Z (Total);483226-Pdtsa LDL-P; 805339-QXA Size; 954888-AP-EI Scorewas developed and its performance characteristics determinedby [employer]. It has not been cleared or approved by the Foodand Drug Administration.PATIENT WAS FASTINGPERFORMED BY: [employer] [address] [id number] BY: [employer]6370 [facility] [id number] Globulin (S) [Mass/Vol] 2.2 g/dL Normal 1.5-4.5 [facility] Work Phone: Comment on above: Test(s) 682317-JYO-Q ; 896900-SHS-P; 638094-SYU-E; 229459-Swptdgmwaabhy; 279119-Ztczzynodcg, Total; 942097-NYZ-M (Total);973511-Fqdoq LDL-P; 178527-ZJN Size; 988366-GO-MJ Scorewas developed and its performance characteristics determinedby [employer]. It has not been cleared or approved by the Foodand Drug Administration.PATIENT WAS FASTINGPERFORMED BY: [employer] [address] [id number] BY: ClassOwllin6370 [facility] [id number] Glucose [Mass/Vol] 94 mg/dL Normal 65-99 [facility] Internal Medicine Work Phone: Comment on above: Test(s) 058174-SHC-R ; 731374-OUK-W; 464553-BYI-R; 288596-Gsktvqewyhpwt; 338531-Dbulcpdtqlw, Total; 667979-MNA-S (Total);118113-Pidog LDL-P; 826679-SWT Size; 178941-NS-YQ Scorewas developed and its performance characteristics determinedby [employer]. It has not been cleared or approved by the Foodand Drug Administration.PATIENT WAS FASTINGPERFORMED BY: CoachUp[address] [id number] BY: Ungalli70 [facility]stone RV CompanyFrye Regional Medical Center [facility] Campus [id number] Potassium [Moles/Vol] 4.4 mmol/L Normal 3.5-5.2 [facility] Internal Medicine Work Phone: Comment on above: Test(s) 620938-MPY-J ; 915276-CGH-G; 392096-GMI-E; 282927-Lvuxcheaywmjb; 781047-Jxcmkcydqqe, Total; 737240-URB-R (Total);965453-Irbki LDL-P; 622500-HWI Size; 680014-MW-XG Scorewas developed and its performance characteristics determinedby [employer]. It has not been cleared or approved by the FoodSticky Drug Administration.PATIENT WAS FASTINGPERFORMED BY: [employer] [address] [id number] BY: [employer] Moda OperandiLifeBrite Community Hospital [facility] [id number] Protein [Mass/Vol] 6.6 g/dL Normal 6.0-8.5 [facility] Internal Medicine Work Phone: Comment on above: Test(s) 358089-UVV-T ; 958868-KTM-A; 878873-TEA-E; 306496-Bzeznvxdupktj; 089909-Qteqsmtzvnu, Total; 825898-URU-J (Total);620948-Jaemk LDL-P; 757198-LLL Size; 321631-LN-IR Scorewas developed and its performance characteristics determinedby [employer]. It has not been cleared or approved by the Foodand Drug Administration.PATIENT WAS FASTINGPERFORMED BY: [employer] [address] [id number] BY: Sabakat Bfodnb4544 [address] Moda OperandiLifeBrite [facility] [id number] Sodium [Moles/Vol] 141 mmol/L Normal 134-144 [facility] Internal Medicine Work Phone: Comment on above: Test(s) 523962-JCI-J ; 937056-ZQM-V; 314015-DZK-A; 439919-Zpjobabciwsje; 952827-Oyjpmzaxrmo, Total; 868067-UJJ-Y (Total);417845-Dhjcy LDL-P; 273185-VQK Size; 851172-HQ-HM Scorewas developed and its performance characteristics determinedby [employer]. It has not been cleared or approved by the Foodand Drug Administration.PATIENT WAS FASTINGPERFORMED BY: [employer] [address] [id number] BY: [employer]6370 [facility] [id number] Urea nitrogen [Mass/Vol] 15 mg/dL Normal 8-27 [facility] Internal Medicine Work Phone: Comment on above: Test(s) 218031-NHQ-E ; 679829-NGG-G; 726833-FKN-V; 223271-Aatcjvmqmbeqr; 717987-Tjfsxqjgvui, Total; 281874-UYS-Z (Total);165846-Kubys LDL-P; 703046-BJN Size; 472040-VM-TI Scorewas developed and its performance characteristics determinedby [employer]. It has not been cleared or approved by the Foodand Drug Administration.PATIENT WAS FASTINGPERFORMED BY: [employer] [address] [id number] BY: SabakatHackensack University Medical CenterZzwdxz6751 [facility] [id number] Urea nitrogen/Creatinine [Mass ratio] 12 mg/mg Normal 10-24 [facility] Internal Medicine Work Phone: Comment on above: Test(s) 562687-ZWT-N ; 462206-UPK-V; 455751-AOO-I; 841794-Swhmyhkbthibd; 459270-Ocpzfjcfmqw, Total; 498494-MEG-P (Total);531084-Exqnw LDL-P; 492004-EYQ Size; 858487-BX-ID Scorewas developed and its performance characteristics determinedby [employer]. It has not been cleared or approved by the Foodand Drug Administration.PATIENT WAS FASTINGPERFORMED BY: CoachUp[address] [id number] BY: Ungalli70 ClaytonCarondelet Health [id number] MICROALBUMINOrdered By: Syst em Trimmer Sawyer on 12-27-2019 Albumin DL <= 20 mg/L (U) [Mass/Vol] 7.5 ug/mL Normal [facility] Internal Medicine Work Phone: Comment on above: Test(s) 949789-MPV-Q ; 123298-PLT-H; 363824-OME-S; 952369-Bpnvxsmeeojdd; 349945-Jhwthcsarnt, Total; 345898-OGF-Y (Total);560925-Dktid LDL-P; 614040-QVF Size; 762827-OG-TQ Scorewas developed and its performance characteristics determinedby [employer]. It has not been cleared or approved by the Foodand Drug Administration.PATIENT WAS FASTINGPERFORMED BY: CoachUp[address] [id number] BY: Ungalli70 ClaytonCarondelet Health [id number] Albumin/Creatinine (U) [Mass ratio] 3 {mg/g_creat} Normal 0-29 [facility] Work Phone: Comment on above: Normal: 0 - 29 Moder ately increased: 30 - 300 Severely increased: >300 Please note reference interval change Test(s) 982883-OPM-Y ; 755194-CTP-F; 097256-EMR-Z; 358032-Exhsbtpswhlxb; 497052-Ruvkyhxzzkh, Total; 752466-VXG-N (Total);242917-Ithgh LDL-P; 328097-DXH Size; 528354-CY-KE Scorewas developed and its performance characteristics determinedby [employer]. It has not been cleared or approved by the Foodand Drug Administration.PATIENT WAS FASTINGPERFORMED BY: [employer] [address] [id number] BY: Ungalli70 [employer] RV CompanyFrye Regional Medical Center [facility] Campus [id number] Creatinine (U) [Mass/Vol] 236.7 mg/dL Normal [facility] Work Phone: Comment on above: Test(s) 100314-DLV-O ; 686546-CVD-E; 738584-TWM-Q; 300604-Hfjudbrbxmzph; 206134-Axtshhlvlym, Total; 755945-OMJ-J (Total);195094-Yasrm LDL-P; 600406-ROL Size; 735772-YZ-VH Scorewas developed and its performance characteristics determinedby [employer]. It has not been cleared or approved by the Foodand Drug Administration.PATIENT WAS FASTINGPERFORMED BY: [employer] [address] [id number] BY: Ungalli70 [facility] RV CompanyFrye Regional Medical Center [facility] [id number] NMR Profile (85160)Ordered B y: Computer Specialist on 12-27-2019 Cholesterol [Mass/Vol] 145 mg/dL Normal 100-199 [facility] Work Phone: Comment on above: Test(s) 281468-REI-D ; 547376-GWR-K; 007069-RYZ-A; 786023-Lbjrfneqbdwdv; 486010-Gkbdpdrpwlu, Total; 876070-IQO-Q (Total);641682-Pdudr LDL-P; 810528-RQM Size; 568534-XG-SU Scorewas developed and its performance characteristics determinedby [employer]. It has not been cleared or approved by the Foodand Drug Administration.PATIENT WAS FASTINGPERFORMED BY: [employer] [address] [id number] BY: Ungalli70 [place] Moda OperandiLifeBrite Community [facility] [id number] Lipoprotein.alpha [Moles/Vol] 26.9 umol/L Abnormal [facility] Work Phone: Comment on above: Test(s) 111132-RDF-X ; 699514-DYP-Y; 182141-IWK-D; 322807-Pgafrjjaneqwf; 190874-Gxddglcnqtm, Total; 963887-YCA-M (Total);209721-Lgcqu LDL-P; 999061-YMJ Size; 014943-KF-YL Scorewas developed and its performance characteristics determinedby [employer]. It has not been cleared or approved by the Foodand Drug Administration.PATIENT WAS FASTINGPERFORMED BY: BN LabCoTomveyi Bidamon [address] [id number] BY: CB [facility] Eyucig1867 [facility] [id number] Lipoprotein.beta.sub particle [Entitic length] 20.2 nm Abnormal [...] not afterLDL-P is taken into account. Test(s) 356659-KTY-I ; 606600-DOV-X; 173935-AIR-W; 277689-Xblfsovuuqnzk; 470656-Sfkkqehoock, Total; 452645-KMG-P (Total);687772-Jpxed LDL-P; 134188-VLU Size; 620174-AS-KH Scorewas developed and its performance characteristics determinedby [employer]. It has not been cleared or approved by the Foodand Drug Administration.PATIENT WAS FASTINGPERFORMED BY: [employer])[address] [id number] BY: [employer])[facility] Medical CenterYyyojo5358 [facility] [id number] Lipoprotein.beta.sub particle [Moles/Vol] 1326 nmol/L Abnormal [facility] Work Phone: Comment on above: Low < 1000 Moderate 1000 - 1299 Borderline-High 1300 - 1599 High 1600 - 2000 Very High > 2000 Test(s) 186535-GET-N ; 660749-JHK-R; 218010-QEW-J; 779677-Ynhwmveipwapz; 462916-Blprajiitow, Total; 498051-ZPT-D (Total);802257-Hysob LDL-P; 054771-QDM Size; 783277-TR-NL Scorewas developed and its performance characteristics determinedby [employer]. It has not been cleared or approved by the Foodand Drug Administration.PATIENT WAS FASTINGPERFORMED BY: [employer])[address] [id number] BY: [employer] Hzhfjl3598 [facility] [id number] Lipoprotein.beta.sub particle.small [Moles/Vol] 799 nmol/L Abnormal [facility] Work Phone: Comment on above: Test(s) 999212-XMQ-Q ; 419027-SXR-N; 363594-TYT-N; 033183-Kdeodjqbhbwzm; 629612-Kcdtbkaplgt, Total; 571140-NZE-A (Total);875958-Iwcny LDL-P; 497540-VCN Size; 796838-PH-XA Scorewas developed and its performance characteristics determinedby [employer]. It has not been cleared or approved by the Foodand Drug Administration.PATIENT WAS FASTINGPERFORMED BY: [employer] [address] [id number] BY: [employer])[facility] CenterCniyvb1792 [facility] [id number] Triglyceride [Mass/Vol] 131 mg/dL Normal 0-149 [facility] Internal Medicine Work Phone: Comment on above: Test(s) 408750-IMK-I ; 682295-XAE-Q; 874634-IPD-M; 832777-Xwmiwzypczvzo; 576502-Doskzjpyodz, Total; 360457-QCF-K (Total);554711-Mkddh LDL-P; 429913-IIR Size; 931369-DE-GV Scorewas developed and its performance characteristics determinedby [employer]. It has not been cleared or approved by the Foodand Drug Administration.PATIENT WAS FASTINGPERFORMED BY: CoachUp[address] [id number] BY: [employer]6370 [facility] [id number] NMR Profile (57566) 34 mg/dL Abnormal [facility] Internal Medicine Work Phone: Comment on above: Test(s) 275966-FUU-Y ; 518222-UYU-Z; 597447-OAF-U; 357173-Oxpwmecysjucn; 024035-Jslgdagdote, Total; 611049-GJP-J (Total);188174-Gehxr LDL-P; 680167-AOA Size; 627947-IZ-PB Scorewas developed and its performance characteristics determinedby [employer]. It has not been cleared or approved by the Foodand Drug Administration.PATIENT WAS FASTINGPERFORMED BY: [employer] [address] [id number] BY: SabakatHackensack University Medical CenterGfjaea0222 [facility] [id number] NMR Profile (26428) 85 mg/dL Normal 0-99 [facility] Internal Medicine Work Phone: Comment on above: . Optimal < 100 Abov e optimal 100 - 129 Borderline 130 - 159 High 160 - 189 Very high > 189 .LDL-C is inaccurate if patient is non-fasting. Test(s) 487697-XDI-X ; 224482-ZMT-K; 145292-OTO-B; 021619-Lgyizvrrmwsdx; 053971-Pwdwbtfhfoo, Total; 785271-LEC-K (Total);247643-Lguej LDL-P; 208603-HQS Size; 720658-RN-EQ Scorewas developed and its performance characteristics determinedby [employer]. It has not been cleared or approved by the Foodand Drug Administration.PATIENT WAS FASTINGPERFORMED BY: [employer] [address] [id number] BY: LemoptixFrye Regional [facility] [id number] NMR Profile (92326) 131 mg/dL Normal 0-149 Compr ehensive Internal Medicine; [facility] Work Phone: NMR Profile (08778) 145 mg/dL Normal 100-199 Compr ehensive Internal Medicine; [facility] Work Phone: TSH (14274)Ordered By: Plastic Jungle Trimmer Sawyer on 12-27-2019 TSH Qn 2.100 {uIU/mL} Normal 0.450-4.50 0 [facility] Work Phone: Comment on above: Test(s) 809876-DFD-R ; 273263-NIU-C; 750733-LQK-F; 542309-Rrlynnauqyxdi; 322303-Gsfprnqpjio, Total; 666841-SKB-L (Total);292718-Unxeu LDL-P; 432449-PRE Size; 103050-KT-EX Scorewas developed and its performance characteristics determinedby [employer]. It has not been cleared or approved by the Foodand Drug Administration.PATIENT WAS FASTINGPERFORMED BY: [employer] [address] [id number] BY: [employer]6370 Keystone RV CompanyFrye Regional Medical [facility] [id number] URINALYSIS, W/ MICRO (57284) Ordered By: Computer Specialist on 12-27-2019 Appearance (U) Cloudy Abnormal Comprehens damien Internal Medicine Work Phone: Comment on above: Test(s) 668906-BUL-A ; 193670-PLY-Q; 793309-TDN-D; 653223-Sxrkxbzjfverf; 736029-Cavbaoxnwrx, Total; 189060-QSE-Z (Total);019946-Yahvd LDL-P; 410371-CBC Size; 335166-RB-SQ Scorewas developed and its performance characteristics determinedby [employer]. It has not been cleared or approved by the Foodand Drug Administration.PATIENT WAS FASTINGPERFORMED BY: [employer] [address] [id number] BY: [employer] [facility] [id number] Bilirubin Ql (U) Negative Normal Comprehe nsive Internal Medicine Work Phone: Comment on above: Test(s) 827487-VSA-X ; 407234-CEX-D; 550939-YAW-N; 931208-Rfppsmxhzxozp; 866614-Mxnnqggsfus, Total; 018562-CZD-V (Total);279877-Kyfqu LDL-P; 110863-GPT Size; 115405-GB-PH Scorewas developed and its performance characteristics determinedby [employer]. It has not been cleared or approved by the Foodand Drug Administration.PATIENT WAS FASTINGPERFORMED BY: [employer] [address] [id number] BY: [employer]6370 [facility] [id number] Bilirubin Ql (U) Negative Normal Comprehe nsive Internal Medicine; [facility] Work Phone: Comment on above: Test(s) 063598-GPT-N ; 000564-UDE-O; 350019-VZU-C; 958539-Jehazwqvpaisi; 329332-Utgdnlyhoxd, Total; 543545-XDY-Z (Total);991529-Qkpcn LDL-P; 717541-BKX Size; 286849-JN-UD Scorewas developed and its performance characteristics determinedby [employer]. It has not been cleared or approved by the Foodand Drug Administration.PATIENT WAS FASTINGPERFORMED BY: AcadiaSoft[address] [id number] BY: [employer] ([place])[facility] Medical CenterRcllwd3706 [facility] [id number] Color (U) Yellow Normal [facility] Work Phone: Comment on above: Test(s) 742395-SVT-P ; 102208-WQF-Y; 529084-YHO-B; 163317-Uurrctinvhumq; 208417-Xtnrbykowmd, Total; 900979-DSI-D (Total);633903-Apjvj LDL-P; 812461-BWC Size; 354476-WP-FL Scorewas developed and its performance characteristics determinedby [employer]. It has not been cleared or approved by the Foodand Drug Administration.PATIENT WAS FASTINGPERFORMED BY: [employer] [address] [id number] BY: Ungalli70 [facility] [id number] Glucose Ql (U) Negative Normal Comprehens damien Internal Medicine Work Phone: Comment on above: Test(s) 679629-AWY-X ; 318739-RNH-O; 404972-QFF-E; 300689-Wsorvzdntjrpa; 617943-Nxwkvsslvin, Total; 922669-BSF-S (Total);979972-Qtpuy LDL-P; 858068-QHU Size; 087094-OL-WB Scorewas developed and its performance characteristics determinedby [employer]. It has not been cleared or approved by the Foodand Drug Administration.PATIENT WAS FASTINGPERFORMED BY: AcadiaSoft[address] [id number] BY: [employer] ([place])[facility] Medical CenterKmwlce2663 [facility] [id number] Glucose Ql (U) Negative Normal Comprehens damien Internal Medicine; [facility] Work Phone: Comment on above: Test(s) 651859-GOU-A ; 696673-QPY-S; 514488-BOP-W; 802289-Bnaqfglldjath; 651925-Mnpttvpymzn, Total; 600432-HWD-A (Total);070413-Bxqei LDL-P; 973677-NDG Size; 259305-WR-XA Scorewas developed and its performance characteristics determinedby [employer]. It has not been cleared or approved by the Foodand Drug Administration.PATIENT WAS FASTINGPERFORMED BY: AcadiaSoft[address] [id number] BY: [employer] Kehusq[address] Mod[facility] OperandiLifeBrite [facility] [id number] Hemoglobin Ql (U) Negative Normal Compreh ensive Internal Medicine Work Phone: Comment on above: Test(s) 476756-EKL-R ; 990555-CGO-B; 469871-NME-W; 596933-Kxynpwoepblfd; 944222-Ocloqwrjzye, Total; 978561-OUV-H (Total);351235-Yyqgm LDL-P; 723950-MRH Size; 404479-LC-BR Scorewas developed and its performance characteristics determinedby [employer]. It has not been cleared or approved by the Foodand Drug Administration.PATIENT WAS FASTINGPERFORMED BY: [employer]com [address] [id number] BY: Ungalli70 ChinaCacheLifeBrite [facility] [id number] Hemoglobin Ql (U) Negative Normal Compreh ensive Internal Medicine; [facility] Work Phone: Comment on above: Test(s) 125878-ZCE-J ; 957624-GYG-M; 113134-OSA-H; 596221-Xoobhvjmtcahu; 245148-Osofyuxazmr, Total; 961963-OAU-Y (Total);277750-Dltoc LDL-P; 669491-KMS Size; 076477-KB-ID Scorewas developed and its performance characteristics determinedby [employer]. It has not been cleared or approved by the Foodand Drug Administration.PATIENT WAS FASTINGPERFORMED BY: AcadiaSoft[address] [id number] BY: [employer] ([place])[facility] CenterRxfsrt8587 ChinaCacheLifeBrite [facility] [id number] Ketones Ql (U) Negative Normal Comprehens damien Internal Medicine Work Phone: Comment on above: Test(s) 432313-TRQ-X ; 466913-IIO-F; 829626-HXP-X; 787370-Sykhrshipzpfn; 972296-Jjypbcbciye, Total; 436569-UQT-A (Total);646267-Gggpf LDL-P; 987476-HXO Size; 033701-QG-VV Scorewas developed and its performance characteristics determinedby [employer]. It has not been cleared or approved by the Foodand Drug Administration.PATIENT WAS FASTINGPERFORMED BY: Runcom [address] [id number] BY: BettingXpertLifeBrite [facility] Hospital [facility] [id number] Ketones Ql (U) Negative Normal Comprehens damien Internal Medicine; [facility] Work Phone: Comment on above: Test(s) 049435-GZG-Y ; 263947-GPY-T; 096543-BEY-X; 524269-Pwndyqzcdhmjy; 190437-Vzaducsmith, Total; 287366-ILJ-T (Total);905097-Viywk LDL-P; 690927-WWT Size; 900805-HI-FG Scorewas developed and its performance characteristics determinedby [employer]. It has not been cleared or approved by the Foodand Drug Administration.PATIENT WAS FASTINGPERFORMED BY: [employer]com [address] [id number] BY: Ungalli70 ClaytonCaronde[facility] Health [id number] Leukocyte esterase Test strip Ql (U) 1+ Abnormal [facility] Work Phone: Comment on above: Test(s) 078073-TDV-J ; 520172-AYC-C; 614402-MPU-F; 923138-Dyaorhezdodtf; 588453-Rgvfthigbgl, Total; 040047-FYO-R (Total);180600-Gtyzu LDL-P; 033060-MKF Size; 449393-WK-OU Scorewas developed and its performance characteristics determinedby [employer]. It has not been cleared or approved by the Foodand Drug Administration.PATIENT WAS FASTINGPERFORMED BY: AcadiaSoft[address] [id number] BY: [employer])[facility] Medical CenterXavsgn4165 [facility] [id number] Microscopic observation LM Nom (Urine sed) See below: Normal [facility] Work Phone: Comment on above: Microscopic was jayden cated and was performed. Test(s) 797182-VOR-E ; 930225-HQJ-K; 737452-GQK-P; 657265-Seatddidfyfan; 246929-Wyysnprpfrm, Total; 499490-IZF-G (Total);182570-Swuly LDL-P; 175359-DHN Size; 421476-GQ-NU Scorewas developed and its performance characteristics determinedby [employer]. It has not been cleared or approved by the Foodand Drug Administration.PATIENT WAS FASTINGPERFORMED BY: Runcom [address] [id number] BY: Sabakat Oqgktl8213 [facility] [id number] Nitrite Ql (U) Negative Normal Comprehens damien Internal Medicine Work Phone: Comment on above: Test(s) 174179-OSJ-G ; 191925-YWF-F; 875237-GHV-C; 465940-Pzapankspmhat; 367274-Iuezkfinbpd, Total; 182650-IIO-I (Total);391408-Upwce LDL-P; 568939-YGT Size; 186208-UW-AX Scorewas developed and its performance characteristics determinedby [employer]. It has not been cleared or approved by the Foodand Drug Administration.PATIENT WAS FASTINGPERFORMED BY: AcadiaSoft[address] [id number] BY: SabakatScott [place]ille 6221570 [facility] [id number] Nitrite Ql (U) Negative Normal Comprehens damien Internal Medicine; [facility] Work Phone: Comment on above: Test(s) 919150-HNO-X ; 118049-XLH-T; 781752-VLJ-D; 143769-Warilhugqnnrn; 611693-Hlmftncthwn, Total; 636361-QMB-N (Total);501570-Eekqt LDL-P; 344535-HGM Size; 576696-SG-EJ Scorewas developed and its performance characteristics determinedby [employer]. It has not been cleared or approved by the Foodand Drug Administration.PATIENT WAS FASTINGPERFORMED BY: Runcom [address] [id number] BY: LemoptixFrye Regional Medical [facility] [id number] pH (U) 5.5 [pH] Normal 5.0-7.5 [facility] Internal Medicine Work Phone: Comment on above: Test(s) 265040-ECL-K ; 731364-BRG-B; 625978-FVK-E; 863504-Oyjajtkkrjgjg; 339157-Khvqkfdplbz, Total; 935108-NYG-S (Total);334769-Crwct LDL-P; 534082-LFD Size; 389231-WA-GP Scorewas developed and its performance characteristics determinedby [employer]. It has not been cleared or approved by the Foodand Drug Administration.PATIENT WAS FASTINGPERFORMED BY: CoachUp[address] [id number] BY: Ungalli70 Keystone RV CompanyFrye Regional Medical Center [facility] [id number] Protein Ql (U) Trace Normal Comprehens damien Internal Medicine Work Phone: Comment on above: Test(s) 591693-CHS-G ; 507917-ZLY-G; 804789-XBT-S; 062280-Sjnygkgqyrpwx; 669064-Idfjqbrovbi, Total; 265092-PXE-A (Total);995874-Ugpld LDL-P; 632736-FQC Size; 926187-PT-XE Scorewas developed and its performance characteristics determinedby [employer]. It has not been cleared or approved by the Foodand Drug Administration.PATIENT WAS FASTINGPERFORMED BY: Runcom [address] [id number] BY: Lemoptixblin [place] [id number] Specific gravity (U) [Rel density] 1.022 1 Normal 1.005-1.03 0 [facility] Internal Medicine Work Phone: Comment on above: Test(s) 718195-HSN-N ; 642045-NUI-E; 571064-BSR-W; 054658-Twfnngloktqal; 942426-Iifgzrwapvg, Total; 754117-WKL-Z (Total);634278-Vqacv LDL-P; 844159-SKP Size; 327867-EU-SD Scorewas developed and its performance characteristics determinedby [employer]. It has not been cleared or approved by the Foodand Drug Administration.PATIENT WAS FASTINGPERFORMED BY: Runcom [address] [id number] BY: Ungalli70 [facility] [id number] Urobilinogen (U) [Mass/Vol] 0.2 mg/dL Normal 0.2-1.0 [facility] Internal [facility] Internal Medicine Work Phone: Comment on above: Test(s) 906051-FZQ-I ; 739388-QYY-A; 148905-BUQ-G; 781046-Cqkoinwgumnjn; 696810-Gzwoxmrxhzd, Total; 007661-PQM-O (Total);070678-Pnyun LDL-P; 890352-RUO Size; 258323-JO-ZI Scorewas developed and its performance characteristics determinedby [employer]. It has not been cleared or approved by the Foodand Drug Administration.PATIENT WAS FASTINGPERFORMED BY: Runcom [address] [id number] BY: ClassOwllin6370 [facility] [id number] Urobilinogen Test strip (U) [Mass/Vol] 0.2 mg/dL Normal 0.2-1.0 [facility] Internal Medicine Work Phone: Comment on above: Test(s) 295333-AYA-D ; 577479-DRR-Q; 486024-BOM-N; 427480-Uvtxolsfqqfgp; 749652-Bpypovvzjhn, Total; 145654-WHF-L (Total);522536-Suiug LDL-P; 683991-SEX Size; 472554-CC-DZ Scorewas developed and its performance characteristics determinedby [employer]. It has not been cleared or approved by the Foodand Drug Administration.PATIENT WAS FASTINGPERFORMED BY: [place] 293857 [facility] [id number] BY: I GotchuBronson Methodist Hospital6370 [facility] [id number] Blood Glucose , Office ([phone] 2)Ordered By: Stacy Jensen on 08-02-2019 Glucose Glucometer (BldC) [Moles/Vol] 165 1 Normal [facility] Work Phone: HgA1C , Office (77759)Ordere d By: Stacy Jensen on 08-02-2019 HbA1c (Bld) [Mass fraction] 5.5 % Normal 4.6 - 7.1 [facility] Work Phone: MICROALBUMIN 24 HOUR OR RAND OM (29465)Ordered By: Computer Specialist on 08-02-2019 Albumin DL <= 20 mg/L (U) [Mass/Vol] 114.8 ug/mL Normal Comprehensiv e Internal Medicine Work Phone: Comment on above: PATIENT NOT FASTINGP ERFORMED BY: [employer])[facility] Medical CenterVnuzkc8478 [facility] [id number] Albumin/Creatinine (U) [Mass ratio] 45.8 {mg/g_creat} Abnormal [...] to 0. PATIENT NOT FASTINGP ERFORMED BY: [employer])[facility] Medical CenterWfuetr7150 [facility] [id number] Creatinine (U) [Mass/Vol] 250.6 mg/dL Normal [facility] Work Phone: Comment on above: PATIENT NOT FASTINGP ERFORMED BY: CAROLA [facility] Zpzvpy5835 Clayton RoadDublin [place] [id number] Metabolic Panel, Basic (8004 8)Ordered By: Computer Specialist on 08-02-2019 Calcium [Mass/Vol] 9.0 mg/dL Normal 8.6-10.2 [facility] Internal Medicine Work Phone: Comment on above: PATIENT NOT FASTINGP ERFORMED BY: CB [facility] Latvnj6485 [address] RoadDublin [place] [id number] Chloride [Moles/Vol] 105 mmol/L Normal 96-106 Comp rehensive Internal Medicine Work Phone: Comment on above: PATIENT NOT FASTINGP ERFORMED BY: CAROLA [facility] Vpvhhm1926 Clayton RoadDublin [place] [id number] CO2 [Moles/Vol] 21 mmol/L Normal 20-29 [facility] Internal [facility] Work Phone: Comment on above: PATIENT NOT FASTINGP ERFORMED BY: CB [facility] Gaspdx2451 [address] RoadDublin [place] [id number] Creatinine [Mass/Vol] 1.11 mg/dL Normal 0.76-1.27 [facility] Work Phone: Comment on above: PATIENT NOT FASTINGP ERFORMED BY: CB [facility] Sncctj4235 [address] RoadDublin [place] [id number] GFR/1.73 sq M predicted among blacks CKD-EPI (S/P/Bld) [Vol rate/Area] 80 mL/min/1.73 Normal [facility] Work Phone: Comment on above: PATIENT NOT FASTINGP ERFORMED BY: CB [facility] Xrrixc8264 [address] RoadDublin [place] [id number] GFR/1.73 sq M predicted among non-blacks CKD-EPI (S/P/Bld) [Vol rate/Area] 69 mL/min/1.73 Normal [facility] Work Phone: Comment on above: PATIENT NOT FASTINGP ERFORMED BY: CAROLA [facility] Rpwaxz4176 [address] RoadDublin [place] [id number] Glucose [Mass/Vol] 99 mg/dL Normal 65-99 [facility] Internal Medicine Work Phone: Comment on above: PATIENT NOT FASTINGP ERFORMED BY: CB [facility] Inrbid5[address] RoadDublin [place] [id number] Potassium [Moles/Vol] 4.2 mmol/L Normal 3.5-5.2 [facility] Work Phone: Comment on above: PATIENT NOT FASTINGP ERFORMED BY: CB [facility] Rjejxi0309 [address] RoadDublin [place] [id number] Sodium [Moles/Vol] 142 mmol/L Normal 134-144 [facility] Internal Medicine Work Phone: Comment on above: PATIENT NOT FASTINGP ERFORMED BY: CB [facility] Ckhfed0858 [address] RoadDublin [place] [id number] Urea nitrogen [Mass/Vol] 15 mg/dL Normal 8-27 [facility] Work Phone: Comment on above: PATIENT NOT FASTINGP ERFORMED BY: CB [facility] Qiiuzr4[address] RoadDublin [place] [id number] Urea nitrogen/Creatinine [Mass ratio] 14 mg/mg Normal 10-24 [facility] Work Phone: Comment on above: PATIENT NOT FASTINGP ERFORMED BY: CB [facility] Hobacc7[address] RoadDublin [place] [id number] CALCIFIDIOL (65921) VIT D 25 Ordered By: Computer Specialist on 07-13-2019 25-Hydroxyvitamin D2+25-Hydroxyvitamin D3 [Mass/Vol] 38.7 ng/mL Normal 30.0-100.0 [facility] Work Phone: Comment on above: Vitamin D deficiency has been defined by the [place] of[place]icine and an Endocrine Society practice guideline as alevel of serum 25-OH vitamin D less than 20 ng/mL (1,2).The Endocrine Society went on to further define vitamin Dinsufficiency as a level between 21 and 29 ng/mL (2).1. IOM ([place] of Medicine). 2010. Dietary reference intakes for calcium and D. [place]: The National Academies Press.2. Rayna MF, Ana Luisa NC, William CUBA, et al. Evaluation, treatment, and prevention of vitamin D deficiency: an Endocrine Society clinical practice guideline. JCEM. 2010; 96(7):1911-30. Test(s) 110810-PDE-G ; 270035-UMG-E; 555326-KSY-L; 743713-Pznbmonsxmpbi; 807068-Gixkinaawzp, Total; 489944-ZZV-Y (Total);366132-Kpjpm LDL-P; 917228-NOS Size; 879429-PY-RK Scorewas developed and its performance characteristics determinedby [employer]. It has not been cleared or approved by the Foodand Drug Administration.PATIENT WAS FASTINGPERFORMED BY: CoachUp[address] [id number] BY: Ungalli70 Keystone RV CompanyFrye Regional Medical Center [facility] Campus [id number] CBC W/AUTO DIFF WBC (74690)O rdered By: Computer Specialist on 07-13-2019 Basophils (Bld) [#/Vol] 0.1 {x10E3/uL} Normal 0.0-0.2 [facility] Work Phone: Comment on above: Test(s) 828657-XBW-H ; 682457-MGR-I; 596491-LCT-Z; 805250-Ccxdaerstucph; 516980-Dzgwznilvcw, Total; 089215-MGA-H (Total);213626-Jrdgw LDL-P; 051023-MRU Size; 261117-BQ-DL Scorewas developed and its performance characteristics determinedby [employer]. It has not been cleared or approved by the Foodand Drug Administration.PATIENT WAS FASTINGPERFORMED BY: Runcom [address] [id number] BY: Ungalli70 [employer]stone RV CompanyFrye Regional Medical Center [facility] Campus [id number] Basophils (Bld) [#/Vol] 0.1 10*3/uL Normal 0.0-0.2 [facility]; [facility] Work Phone: Comment on above: Test(s) 647498-KNJ-I ; 971696-ONT-M; 265129-PQM-U; 650292-Kqofsdczavsxn; 495223-Vkztvbmqctk, Total; 127320-HIA-P (Total);863249-Lhbku LDL-P; 199046-LAI Size; 687783-ZW-NU Scorewas developed and its performance characteristics determinedby [employer]. It has not been cleared or approved by the Foodand Drug Administration.PATIENT WAS FASTINGPERFORMED BY: Runcom [address] [id number] BY: Ungalli70 ClaytonCaronde[facility] Health [id number] Basophils/100 WBC (Bld) 1 % Normal [facility] Work Phone: Comment on above: Test(s) 807271-HBK-V ; 405650-RPS-L; 555389-CGX-C; 919485-Tcoxusllkerwg; 502137-Cbccudxxezx, Total; 366131-ZUE-J (Total);583105-Qunof LDL-P; 645194-BTQ Size; 000833-IT-EY Scorewas developed and its performance characteristics determinedby [employer]. It has not been cleared or approved by the Foodand Drug Administration.PATIENT WAS FASTINGPERFORMED BY: Runcom [address] [id number] BY: [employer] Technologies6370 [facility] [id number] Eosinophils (Bld) [#/Vol] 0.2 {x10E3/uL} Normal 0.0-0.4 [facility] Work Phone: Comment on above: Test(s) 172715-SGI-A ; 951024-JYF-V; 973953-DLN-B; 805391-Jfmqtpkxkrxek; 741649-Hvqsvhtftzl, Total; 635903-YED-P (Total);564250-Wehgp LDL-P; 089019-NHX Size; 548646-RB-KG Scorewas developed and its performance characteristics determinedby [employer]. It has not been cleared or approved by the Foodand Drug Administration.PATIENT WAS FASTINGPERFORMED BY: Runcom [address] [id number] BY: Sabakat Gctlfd1092 ChinaCacheLifeBrite [facility] [id number] Eosinophils (Bld) [#/Vol] 0.2 10*3/uL Normal 0.0-0.4 [facility]; [facility] Work Phone: Comment on above: Test(s) 114533-UXY-Y ; 437754-DEE-W; 808611-QLY-R; 685460-Emilukrhaznxf; 532245-Bdjpdwznmux, Total; 406028-WNO-P (Total);722374-Vclbt LDL-P; 414801-KNU Size; 536996-LR-AB Scorewas developed and its performance characteristics determinedby [employer]. It has not been cleared or approved by the Foodand Drug Administration.PATIENT WAS FASTINGPERFORMED BY: CoachUp[address] [id number] BY: CableMatrix Technologies[address] Moda OperandiLifeBrite [facility] [id number] Eosinophils/100 WBC (Bld) 2 % Normal [facility] Work Phone: Comment on above: Test(s) 216859-MGB-I ; 299677-MRJ-F; 059048-CXH-D; 918196-Wrsssdvillejk; 856200-Mdusbsjwdcf, Total; 914766-TML-N (Total);425641-Aummk LDL-P; 127739-MPT Size; 354835-QG-DT Scorewas developed and its performance characteristics determinedby [employer]. It has not been cleared or approved by the Foodand Drug Administration.PATIENT WAS FASTINGPERFORMED BY: Runcom [address] [id number] BY: SabakatHackensack University Medical CenterHbyixm2623 [facility] [id number] Erythrocyte distribution width (RBC) [Ratio] 13.5 % Normal 12.3-15.4 [facility] Work Phone: Comment on above: Effective July 30, 2019, the RDW pediatric reference interval will be removed and the adult reference interval will be changing to: Female 11.7 - 15.4 Male 11.6 - 15.4 Test(s) 698999-UGJ-Q ; 262457-HUE-Y; 399536-EYH-U; 174436-Rkvjoixfoeslc; 616472-Qyyiigmaerk, Total; 912948-ULU-W (Total);096345-Ylfmw LDL-P; 106834-KPZ Size; 451821-PI-ST Scorewas developed and its performance characteristics determinedby [employer]. It has not been cleared or approved by the Foodand Drug Administration.PATIENT WAS FASTINGPERFORMED BY: CoachUp[address] [id number] BY: Ungalli70 ClaytonCarondelet Health [id number] Hematocrit (Bld) [Volume fraction] 48.4 % Normal 37.5-51.0 [facility] Work Phone: Comment on above: Test(s) 877640-VPO-A ; 667122-GMK-I; 516876-IHJ-X; 271679-Xxqgpcyavoeru; 528412-Gldwcprczun, Total; 610611-UAI-K (Total);183834-Wsfvo LDL-P; 206899-OFK Size; 590401-MD-XB Scorewas developed and its performance characteristics determinedby [employer]. It has not been cleared or approved by the Foodand Drug Administration.PATIENT WAS FASTINGPERFORMED BY: CoachUp[address] [id number] BY: [employer] Trxovm0763 [facility] [id number] Hemoglobin (Bld) [Mass/Vol] 16.6 g/dL Normal 13.0-17.7 [facility] Work Phone: Comment on above: Test(s) 510579-UIU-H ; 287244-VGN-B; 600652-ZRN-R; 986117-Bshesobdvquet; 641614-Tczhdfpiskr, Total; 214661-DHD-W (Total);334540-Bkdre LDL-P; 811472-QKC Size; 841506-GJ-VR Scorewas developed and its performance characteristics determinedby [employer]. It has not been cleared or approved by the Foodand Drug Administration.PATIENT WAS FASTINGPERFORMED BY: Runcom [address] [id number] BY: [employer]) Csdpvg1857 ChinaCacheLifeBrite [facility] [id number] Immature granulocytes (Bld) [#/Vol] 0.1 {x10E3/uL} Normal 0.0-0.1 [facility] Work Phone: Comment on above: Test(s) 917629-POJ-A ; 844611-UAQ-K; 471168-IJD-U; 008853-Coiesnpqrkvxf; 220436-Wfkaoahgbjg, Total; 255711-FPH-H (Total);239604-Jmeff LDL-P; 407845-GCN Size; 475494-BK-VJ Scorewas developed and its performance characteristics determinedby [employer]. It has not been cleared or approved by the Foodand Drug Administration.PATIENT WAS FASTINGPERFORMED BY: [employer] [address] [id number] BY: [employer] [place] OperandiLifeBrite [facility] [id number] Immature granulocytes (Bld) [#/Vol] 0.1 10*3/uL Normal 0.0-0.1 [facility]; [facility] Work Phone: Comment on above: Test(s) 203780-KAY-T ; 335423-RZQ-O; 828348-OXI-J; 124537-Veaytpqqqmwcu; 578434-Rfdqvgknznp, Total; 642405-RWI-H (Total);234765-Ihxlr LDL-P; 255925-UBZ Size; 494710-MI-CM Scorewas developed and its performance characteristics determinedby [employer]. It has not been cleared or approved by the Foodand Drug Administration.PATIENT WAS FASTINGPERFORMED BY: [employer] [address] [id number] BY: Ungalli70 [facility] [id number] Immature granulocytes/100 WBC (Bld) 1 % Normal [facility] Work Phone: Comment on above: Test(s) 536142-CWA-M ; 933173-KNI-J; 926930-IGW-F; 410438-Iyeckzlnxxusi; 692183-Jcszwfqimcf, Total; 308504-DTK-Q (Total);225349-Omwah LDL-P; 446139-AXJ Size; 913443-VF-VN Scorewas developed and its performance characteristics determinedby [employer]. It has not been cleared or approved by the Foodand Drug Administration.PATIENT WAS FASTINGPERFORMED BY: CoachUp[address] [id number] BY: [employer])[facility] CenterVblfjr6343 [facility] [id number] Lymphocytes (Bld) [#/Vol] 2.4 {x10E3/uL} Normal 0.7-3.1 [facility] Work Phone: Comment on above: Test(s) 374190-XJP-R ; 253706-WDI-L; 874458-ICP-N; 684216-Xalnazwubpyoa; 626477-Sbakcqywsnp, Total; 486269-ONB-Y (Total);135489-Iysgu LDL-P; 312067-JZK Size; 476354-NH-FH Scorewas developed and its performance characteristics determinedby [employer]. It has not been cleared or approved by the Foodand Drug Administration.PATIENT WAS FASTINGPERFORMED BY: [employer] [address] [id number] BY: [employer])[facility] CenterEbdqeq5195 [facility] [id number] Lymphocytes (Bld) [#/Vol] 2.4 10*3/uL Normal 0.7-3.1 [facility]; [facility] Work Phone: Comment on above: Test(s) 428145-YKU-J ; 119910-ILI-F; 888043-BUN-P; 171486-Bkdhvnlrhzsep; 244736-Wwqjekegpoj, Total; 607865-TMN-O (Total);313679-Ewurm LDL-P; 391905-RVW Size; 437674-XU-II Scorewas developed and its performance characteristics determinedby [employer]. It has not been cleared or approved by the Foodand Drug Administration.PATIENT WAS FASTINGPERFORMED BY: [employer] [address] [id number] BY: LemoptixF[facility] [id number] Lymphocytes/100 WBC (Bld) 20 % Normal [facility] Work Phone: Comment on above: Test(s) 308979-DFQ-Q ; 549752-NON-W; 109667-XOW-S; 319064-Hxkofznlvtzim; 294087-Ijmufeflosq, Total; 746594-LPQ-P (Total);276843-Bqsmg LDL-P; 829385-OMK Size; 988289-QA-HW Scorewas developed and its performance characteristics determinedby [employer]. It has not been cleared or approved by the Foodand Drug Administration.PATIENT WAS FASTINGPERFORMED BY: [employer] [address] [id number] BY: Ungalli70 [place] Netnui.comFrye Regional Medical Center [facility] [id number] MCH (RBC) [Entitic mass] 30.6 pg Normal 26.6-33.0 [facility] Work Phone: Comment on above: Test(s) 015708-SGZ-B ; 562965-HOZ-R; 349229-HFU-I; 082601-Qujzjjpydavid; 293809-Mdwqkybzwya, Total; 401094-ROO-G (Total);828233-Vhtvi LDL-P; 360717-LTC Size; 700197-ST-MY Scorewas developed and its performance characteristics determinedby [employer]. It has not been cleared or approved by the Foodand Drug Administration.PATIENT WAS FASTINGPERFORMED BY: [employer] [address] [id number] BY: Ungalli70 [place] Netnui.comFrye Regional Medical [facility] [id number] MCHC (RBC) [Mass/Vol] 34.3 g/dL Normal 31.5-35.7 [facility] Work Phone: Comment on above: Test(s) 171198-WBK-G ; 300953-HSX-H; 103639-CTQ-X; 092075-Svsysjwbhuzld; 775884-Kamyzayiwdt, Total; 795971-BIS-D (Total);785425-Viuts LDL-P; 535641-RSZ Size; 309750-KZ-GQ Scorewas developed and its performance characteristics determinedby [employer]. It has not been cleared or approved by the Foodand Drug Administration.PATIENT WAS FASTINGPERFORMED BY: Alianza[address] [place] [address] [id number] BY: Ungalli70 Keystone RV CompanyFrye Regional Medical Center [facility] Campus [id number] MCV (RBC) [Entitic vol] 89 fL Normal 79-97 [facility] Work Phone: Comment on above: Test(s) 974861-BIF-Q ; 302047-VIG-H; 346139-EXB-S; 888947-Dkfkxseszafyq; 175815-Vumjlsxchji, Total; 463170-FAI-R (Total);174091-Zayzq LDL-P; 930051-SUJ Size; 046565-CU-TO Scorewas developed and its performance characteristics determinedby [employer]. It has not been cleared or approved by the Foodand Drug Administration.PATIENT WAS FASTINGPERFORMED BY: CoachUp[address] [id number] BY: [employer]6370 Keystone RV CompanyFrye Regional Medical Center [facility] [id number] Monocytes (Bld) [#/Vol] 1.0 {x10E3/uL} Abnormal 0.1-0.9 [facility] Work Phone: Comment on above: Test(s) 648635-AJW-G ; 733387-YPD-X; 245768-PGU-U; 808738-Hadxnqiacmywh; 670673-Euggfcqknpe, Total; 681830-ZFB-U (Total);869434-Bsuum LDL-P; 679448-MCB Size; 949864-IF-PA Scorewas developed and its performance characteristics determinedby [employer]. It has not been cleared or approved by the Foodand Drug Administration.PATIENT WAS FASTINGPERFORMED BY: [employer])[address] [id number] BY: [employer] Iwfxng7048 [place] Moda OperandiLifeBrite [facility] [id number] Monocytes (Bld) [#/Vol] 1.0 10*3/uL Abnormal 0.1-0.9 [facility]; [facility] Work Phone: Comment on above: Test(s) 318085-WOZ-T ; 314315-HOI-J; 667290-UWN-I; 736320-Qknkvafrseczw; 957168-Vyykocqmqyg, Total; 704254-OWJ-P (Total);030019-Qjcrr LDL-P; 980176-HJJ Size; 797134-RI-RI Scorewas developed and its performance characteristics determinedby [employer]. It has not been cleared or approved by the Foodand Drug Administration.PATIENT WAS FASTINGPERFORMED BY: [employer] [address] [id number] BY: Ungalli70 [facility] RV CompanyFrye Regional [facility] [id number] Monocytes/100 WBC (Bld) 9 % Normal [facility] Internal Medicine Work Phone: Comment on above: Test(s) 084537-AVM-X ; 765147-VUE-K; 495526-ZRC-Y; 750249-Yyhcznhvyocqe; 711001-Qlatppgxhew, Total; 154004-LPD-F (Total);069188-Yvjml LDL-P; 252206-DSN Size; 189972-AF-HV Scorewas developed and its performance characteristics determinedby [employer]. It has not been cleared or approved by the Foodand Drug Administration.PATIENT WAS FASTINGPERFORMED BY: AcadiaSoft[address] [id number] BY: [employer]6[address] [place] OperandiLifeBrite [facility] [id number] Neutrophils (Bld) [#/Vol] 8.0 {x10E3/uL} Abnormal 1.4-7.0 [facility] Work Phone: Comment on above: Test(s) 204910-HYJ-H ; 998305-IBE-P; 457698-LMW-L; 238809-Uliahmdslbjii; 324637-Zuhucmfaihi, Total; 199184-YAY-Y (Total);162236-Cawnt LDL-P; 135208-QPH Size; 224114-ZY-SK Scorewas developed and its performance characteristics determinedby [employer]. It has not been cleared or approved by the Foodand Drug Administration.PATIENT WAS FASTINGPERFORMED BY: CoachUp[address] [id number] BY: Ungalli70 [facility] [id number] Neutrophils (Bld) [#/Vol] 8.0 10*3/uL Abnormal 1.4-7.0 [facility]; [facility] Work Phone: Comment on above: Test(s) 660939-QIN-Q ; 634273-DBT-C; 697898-JQH-Z; 678149-Bbhdqdqgsgzyg; 401199-Jgielagrdna, Total; 140141-XGL-I (Total);283017-Siwqb LDL-P; 074734-JDQ Size; 063107-ZY-MX Scorewas developed and its performance characteristics determinedby [employer]. It has not been cleared or approved by the Foodand Drug Administration.PATIENT WAS FASTINGPERFORMED BY: CoachUp[address] [id number] BY: [employer]6370 [facility] [id number] Neutrophils/100 WBC (Bld) 67 % Normal [facility] Work Phone: Comment on above: Test(s) 525356-GNZ-W ; 528814-FIA-B; 182953-NDS-S; 862065-Owonsgazkxijc; 881590-Nyrxhxsvcgb, Total; 746343-EZY-P (Total);666622-Ppecg LDL-P; 535116-TMS Size; 471832-SE-IE Scorewas developed and its performance characteristics determinedby [employer]. It has not been cleared or approved by the Foodand Drug Administration.PATIENT WAS FASTINGPERFORMED BY: Runcom [address] [id number] BY: [employer])rp Suefrh4952 ClaytonCarondelet Health [id number] Platelets (Bld) [#/Vol] 223 {x10E3/uL} Normal 150-450 [facility] Work Phone: Comment on above: Test(s) 508286-BLP-X ; 707103-ZOJ-B; 216737-AGZ-T; 859015-Geazvijsfsmfi; 124554-Epyzxnbqqab, Total; 962666-VMD-G (Total);552512-Wfgki LDL-P; 243945-GGS Size; 401973-PB-BO Scorewas developed and its performance characteristics determinedby [employer]. It has not been cleared or approved by the Foodand Drug Administration.PATIENT WAS FASTINGPERFORMED BY: [employer] [address] [id number] BY: [employer]6370 ClaytonCaronde[facility] Health [id number] Platelets (Bld) [#/Vol] 223 10*3/uL Normal 150-450 [facility]; [facility] Work Phone: Comment on above: Test(s) 708034-AXC-K ; 498334-JKA-T; 397182-KCJ-W; 376405-Ywbhelauzrgvy; 058827-Yvsfcdfdjqv, Total; 900916-PBQ-S (Total);628700-Quamu LDL-P; 365597-DZY Size; 883889-HC-XW Scorewas developed and its performance characteristics determinedby [employer]. It has not been cleared or approved by the Foodand Drug Administration.PATIENT WAS FASTINGPERFORMED BY: [employer] [address] [id number] BY: [employer] Llkjzj4011 [facility] [id number] RBC (Bld) [#/Vol] 5.42 {x10E6/uL} Normal 4.14-5.80 [facility] Internal [facility] Work Phone: Comment on above: Test(s) 331256-TUM-U ; 730893-ZKJ-I; 182083-FYO-G; 666196-Mspnginxrywah; 776806-Fehzkqafruy, Total; 323676-VFV-K (Total);918895-Bkiuy LDL-P; 166325-ZFR Size; 881600-CK-SQ Scorewas developed and its performance characteristics determinedby [employer]. It has not been cleared or approved by the Foodand Drug Administration.PATIENT WAS FASTINGPERFORMED BY: CoachUp[address] [id number] BY: Ungalli70 [facility] [id number] RBC (Bld) [#/Vol] 5.42 10*6/uL Normal 4.14-5.80 [facility] Internal [facility]; [facility] Internal Medicine Work Phone: Comment on above: Test(s) 822852-LQX-B ; 027709-DMV-H; 987193-GZJ-G; 982204-Sxabfhzjwmijz; 228122-Rsigvewinsq, Total; 678159-FAN-L (Total);586092-Opeok LDL-P; 274771-PXK Size; 947674-UE-LL Scorewas developed and its performance characteristics determinedby [employer]. It has not been cleared or approved by the Foodand Drug Administration.PATIENT WAS FASTINGPERFORMED BY: [employer] [address] [id number] BY: [employer]6370 [facility] [id number] WBC (Bld) [#/Vol] 11.9 {x10E3/uL} Abnormal 3.4-10.8 [facility] Internal Medicine Work Phone: Comment on above: Test(s) 796912-MFW-X ; 465262-VXF-X; 196676-MVL-N; 490071-Kjciotmzkhkoq; 166859-Heccimqhawr, Total; 324041-QAA-B (Total);587174-Ztqmb LDL-P; 921208-TMQ Size; 608507-YO-DF Scorewas developed and its performance characteristics determinedby [employer]. It has not been cleared or approved by the Foodand Drug Administration.PATIENT WAS FASTINGPERFORMED BY: [employer] [address] [id number] BY: [employer] Fbmzia1305 [facility] [id number] WBC (Bld) [#/Vol] 11.9 10*3/uL Abnormal 3.4-10.8 [facility] Internal Medicine; [facility] Work Phone: Comment on above: Test(s) 022805-OEO-F ; 777014-RDB-D; 906142-ENQ-E; 074040-Cyzwrfvfynwna; 308926-Fqcttxxhisf, Total; 113765-RXD-B (Total);882870-Ozkxe LDL-P; 392081-GVT Size; 596894-DW-VE Scorewas developed and its performance characteristics determinedby [employer]. It has not been cleared or approved by the Foodand Drug Administration.PATIENT WAS FASTINGPERFORMED BY: [employer] [address] [id number] BY: [employer] Csyckw1405 [facility] [id number] METABOLIC PANEL, COMPREHENSI VE (10374)Ordered By: Computer Specialist on 07-13-2019 Albumin [Mass/Vol] 4.8 g/dL Normal 3.6-4.8 [facility] Internal Medicine Work Phone: Comment on above: Test(s) 478904-QKL-T ; 298807-IFP-J; 302136-IBZ-R; 283867-Jibegsrhzcbtu; 218307-Gkkhbamemdh, Total; 216294-JBW-C (Total);659796-Wkwry LDL-P; 223549-NSM Size; 506702-BO-YA Scorewas developed and its performance characteristics determinedby [employer]. It has not been cleared or approved by the Foodand Drug Administration.PATIENT WAS FASTINGPERFORMED BY: AcadiaSoft[address] [id number] BY: [employer] Nvzkxa2098 [place] Moda OperandiLifeBrite Community Hospital [facility] [id number] Albumin/Globulin [Mass ratio] 2.0 {ratio} Normal 1.2-2.2 [facility] Work Phone: Comment on above: Test(s) 746504-IRN-V ; 655996-UYG-H; 778957-AGR-R; 700933-Wjvtvotvfhmem; 103663-Spnqortnmlj, Total; 061352-WSB-K (Total);095662-Xwpln LDL-P; 685152-ZPG Size; 528574-IS-QE Scorewas developed and its performance characteristics determinedby [employer]. It has not been cleared or approved by the Foodand Drug Administration.PATIENT WAS FASTINGPERFORMED BY: Run[employer] [address] [id number] BY: Sabakat Ybjqgu9773 [facility] [id number] ALP [Catalytic activity/Vol] 126 [iU]/L Abnormal 39117 [facility] Work Phone: Comment on above: Test(s) 209015-USD-J ; 021545-GCB-X; 840671-NHY-N; 500140-Tuklcruzxpels; 433582-Eljwcysobhk, Total; 286890-UKA-T (Total);957776-Ltvrt LDL-P; 967862-FOQ Size; 653353-TY-OW Scorewas developed and its performance characteristics determinedby [employer]. It has not been cleared or approved by the Foodand Drug Administration.PATIENT WAS FASTINGPERFORMED BY: AcadiaSoft[address] [id number] BY: [employer])[facility] Medical CenterInczro8212 [facility] [id number] ALP [Catalytic activity/Vol] 126 U/L Abnormal 39-117 [facility]; [facility] Work Phone: Comment on above: Test(s) 482698-ZGJ-J ; 942412-MYF-D; 879816-XMH-C; 762440-Ubsgbigbznktb; 942604-Oplhieygizd, Total; 488517-XQP-R (Total);117075-Ivzkd LDL-P; 174643-GCW Size; 602474-BB-VB Scorewas developed and its performance characteristics determinedby [employer]. It has not been cleared or approved by the Foodand Drug Administration.PATIENT WAS FASTINGPERFORMED BY: [employer] [id number] BY: [employer] 6221570 [facility] [id number] ALT [Catalytic activity/Vol] 37 [iU]/L Normal 0-44 [facility] Work Phone: Comment on above: Test(s) 950394-HWH-G ; 458742-YRV-S; 183841-PWD-P; 372610-Jshspcromsmwx; 875096-Hpcihhdgiim, Total; 963862-OER-G (Total);704267-Ebvrw LDL-P; 684534-XIB Size; 959982-VN-FN Scorewas developed and its performance characteristics determinedby [employer]. It has not been cleared or approved by the Foodand Drug Administration.PATIENT WAS FASTINGPERFORMED BY: [employer] [address] [id number] BY: [employer])[facility] Medical CenterVnslvx2555 [facility] [id number] ALT [Catalytic activity/Vol] 37 U/L Normal 0-44 [facility]; [facility] Work Phone: Comment on above: Test(s) 570613-ZEK-N ; 032601-YIV-N; 965347-ZKT-Y; 922514-Rroymozrgdoij; 953946-Ikwodojyhdj, Total; 079600-TPI-D (Total);182379-Bsdzd LDL-P; 852264-LPB Size; 259960-MT-YH Scorewas developed and its performance characteristics determinedby [employer]. It has not been cleared or approved by the Foodand Drug Administration.PATIENT WAS FASTINGPERFORMED BY: [employer])[address] [id number] BY: [employer]6370 Keystone RV CompanyFrye Regional Medical Center [facility] Campus [id number] AST [Catalytic activity/Vol] 25 [iU]/L Normal 0-40 [facility] Internal Medicine Work Phone: Comment on above: Test(s) 949109-WTA-F ; 567391-CHX-M; 888635-DBE-Q; 283253-Dekdetwrjdcys; 629952-Ibuugdefhsl, Total; 421720-KID-S (Total);032262-Yauff LDL-P; 096104-QMP Size; 901854-UL-UU Scorewas developed and its performance characteristics determinedby [employer]. It has not been cleared or approved by the Foodand Drug Administration.PATIENT WAS FASTINGPERFORMED BY: [employer] [address] [id number] BY: [employer]6370 fromAtoBCardinal Hill Rehabilitation Center [id number] AST [Catalytic activity/Vol] 25 U/L Normal 0-40 [facility] Internal Medicine; [facility] Internal Medicine Work Phone: Comment on above: Test(s) 284231-KAZ-T ; 556286-UJE-Z; 754934-XTB-V; 082951-Jsnerjucrhbwi; 126083-Htgrasesexd, Total; 661465-QXH-M (Total);179411-Ezwmt LDL-P; 779209-RWV Size; 973754-KP-YK Scorewas developed and its performance characteristics determinedby [employer]. It has not been cleared or approved by the Foodand Drug Administration.PATIENT WAS FASTINGPERFORMED BY: [employer] [address] [id number] BY: [employer]6370 Keystone RV CompanyFrye Regional Medical Center [facility] Campus [id number] Bilirubin [Mass/Vol] 0.5 mg/dL Normal 0.0-1.[address] [facility] Work Phone: Comment on above: Test(s) 206484-OCP-F ; 032249-MGE-W; 840605-BRE-N; 096003-Tosnyyswuszll; 434833-Akhihljnsuk, Total; 503760-CGI-Y (Total);356293-Dpisy LDL-P; 643386-BBZ Size; 569664-GI-PW Scorewas developed and its performance characteristics determinedby [employer]. It has not been cleared or approved by the Foodand Drug Administration.PATIENT WAS FASTINGPERFORMED BY: [employer] [address] [id number] BY: Sabakat Mfeojv5397 [place] Netnui.comFrye Regional Medical Center [facility] [id number] Calcium [Mass/Vol] 9.7 mg/dL Normal 8.6-10.2 [facility] Internal Medicine Work Phone: Comment on above: Test(s) 349008-YZE-B ; 550983-DHM-S; 319740-TLH-O; 187283-Fpkxeinhukegp; 841813-Ulzumgxuywf, Total; 290131-XCY-X (Total);900750-Ysjfb LDL-P; 553838-UWK Size; 471047-LJ-KU Scorewas developed and its performance characteristics determinedby [employer]. It has not been cleared or approved by the Foodand Drug Administration.PATIENT WAS FASTINGPERFORMED BY: [employer] [address] [id number] BY: [employer]6370 [place] Netnui.comFrye Regional Medical Center [facility] [id number] Chloride [Moles/Vol] 102 mmol/L Normal 96-106 [facility] Internal Medicine Work Phone: Comment on above: Test(s) 516029-DHN-M ; 601602-FUB-L; 395559-NHN-A; 662445-Spqwbvrqiisck; 916145-Pefbbpgcolj, Total; 974269-VSK-O (Total);615368-Ghbgw LDL-P; 680658-KQK Size; 358614-QI-XO Scorewas developed and its performance characteristics determinedby [employer]. It has not been cleared or approved by the Foodand Drug Administration.PATIENT WAS FASTINGPERFORMED BY: Run[employer] [address] [id number] BY: Ungalli70 [facility] [id number] CO2 [Moles/Vol] 24 mmol/L Normal 20-29 [facility] Internal Medicine Work Phone: Comment on above: Test(s) 045712-YSU-V ; 770159-IZQ-K; 134731-NII-L; 659570-Nintghqdtzkbo; 630885-Xlnexuiorve, Total; 959912-KHM-K (Total);316681-Gubgz LDL-P; 179736-TTN Size; 271392-FH-VS Scorewas developed and its performance characteristics determinedby [employer]. It has not been cleared or approved by the Foodand Drug Administration.PATIENT WAS FASTINGPERFORMED BY: [employer] [facility] [id number] BY: [employer]6370 [facility] [id number] Creatinine [Mass/Vol] 1.28 mg/dL Abnormal 0.76-1.27 [facility] Work Phone: Comment on above: Test(s) 635619-JSU-R ; 017077-GRA-R; 252162-UDT-J; 273886-Yulrzmdnzoxqu; 562856-Ymdhaagyvjt, Total; 109706-CNB-C (Total);239945-Pmbky LDL-P; 615813-HBB Size; 922496-AX-ZJ Scorewas developed and its performance characteristics determinedby [employer]. It has not been cleared or approved by the Foodand Drug Administration.PATIENT WAS FASTINGPERFORMED BY: Alianza[address] [place] [address] [id number] BY: [employer]6370 [facility] [id number] GFR/1.73 sq M predicted among blacks CKD-EPI (S/P/Bld) [Vol rate/Area] 67 mL/min/1.73 Normal [facility] Work Phone: Comment on above: Test(s) 532847-OIU-T ; 541581-JKR-U; 353352-OVJ-B; 026365-Tgoqbmvfoxvfc; 057870-Fwcahjgsteg, Total; 029924-KNF-I (Total);210128-Gfxuq LDL-P; 478101-ICD Size; 813517-KW-TM Scorewas developed and its performance characteristics determinedby [employer]. It has not been cleared or approved by the Foodand Drug Administration.PATIENT WAS FASTINGPERFORMED BY: [employer] [address] [id number] BY: [employer] Brsubk6919 [facility] [id number] GFR/1.73 sq M predicted among non-blacks CKD-EPI (S/P/Bld) [Vol rate/Area] 58 mL/min/1.73 Abnormal [facility] Work Phone: Comment on above: Test(s) 605181-FUF-N ; 535613-LRN-X; 105503-LVZ-I; 793779-Otpphabzkngit; 155902-Gsbbujzoazc, Total; 217803-ZPY-A (Total);307081-Ksbpu LDL-P; 421559-IQZ Size; 933288-UH-YD Scorewas developed and its performance characteristics determinedby [employer]. It has not been cleared or approved by the Foodand Drug Administration.PATIENT WAS FASTINGPERFORMED BY: [employer] [address] [id number] BY: [employer] Sngnup4463 [facility] [id number] Globulin (S) [Mass/Vol] 2.4 g/dL Normal 1.5-4.5 [facility] Work Phone: Comment on above: Test(s) 590413-ISL-K ; 595300-AAM-Y; 493255-HAZ-X; 988350-Jxpxnhpacmkfj; 329858-Bgkzxofppvi, Total; 065965-UKJ-V (Total);703922-Ovfjj LDL-P; 824018-QMW Size; 054076-YP-YX Scorewas developed and its performance characteristics determinedby [employer]ogen Pharmaceuticals. It has not been cleared or approved by the Foodand Drug Administration.PATIENT WAS FASTINGPERFORMED BY: [employer] [address] [id number] BY: [employer]6370 [facility] [id number] Glucose [Mass/Vol] 103 mg/dL Abnormal 65-99 [facility] Internal Medicine Work Phone: Comment on above: Test(s) 461732-HXG-B ; 613270-IAA-S; 041510-OZA-A; 440298-Hplxiehawowwc; 184204-Ooppsezkgnp, Total; 316083-QBK-X (Total);592981-Uqksq LDL-P; 534303-HIT Size; 879666-BZ-VV Scorewas developed and its performance characteristics determinedby [employer]. It has not been cleared or approved by the Foodand Drug Administration.PATIENT WAS FASTINGPERFORMED BY: [employer] [address] [id number] BY: [employer]6370 [place] [facility] OperandiLifeB[facility] [id number] Potassium [Moles/Vol] 4.7 mmol/L Normal 3.5-5.2 [facility] Internal Medicine Work Phone: Comment on above: Test(s) 408269-RBW-R ; 183693-XEU-H; 194221-ZFL-W; 568987-Anldndkgqmrls; 363104-Zkaiuanezmp, Total; 920304-ETX-E (Total);013998-Oouvh LDL-P; 563494-WWQ Size; 989423-GP-SK Scorewas developed and its performance characteristics determinedby [employer]. It has not been cleared or approved by the Foodand Drug Administration.PATIENT WAS FASTINGPERFORMED BY: [employer] [address] [id number] BY: [employer]6370 [facility] [id number] Protein [Mass/Vol] 7.2 g/dL Normal 6.0-8.5 [facility] Internal Medicine Work Phone: Comment on above: Test(s) 372610-IOU-I ; 617413-IHG-A; 191932-BUM-K; 935002-Dlfwzrrcnrowk; 102073-Cwavzdynyrr, Total; 216416-WCQ-M (Total);887502-Otxgo LDL-P; 413411-AVX Size; 714526-OE-CQ Scorewas developed and its performance characteristics determinedby [employer]. It has not been cleared or approved by the Foodand Drug Administration.PATIENT WAS FASTINGPERFORMED BY: AcadiaSoft[address] [id number] BY: [employer] Chqhyy2735 [place] [facility]andiLifeB[facility] [id number] Sodium [Moles/Vol] 143 mmol/L Normal 134-144 [facility] Internal Medicine Work Phone: Comment on above: Test(s) 872292-CAA-L ; 391884-IBM-T; 450590-NBB-G; 380254-Ospdliwydnmdg; 209956-Bvmpocwcxqy, Total; 517871-JAT-V (Total);192297-Gagkk LDL-P; 794759-QGU Size; 893002-QN-HA Scorewas developed and its performance characteristics determinedby [employer]. It has not been cleared or approved by the Foodand Drug Administration.PATIENT WAS FASTINGPERFORMED BY: [employer] [address] [id number] BY: [employer]6370 [facility] [id number] Urea nitrogen [Mass/Vol] 20 mg/dL Normal 8-27 [facility] Internal Medicine Work Phone: Comment on above: Test(s) 603687-VAA-A ; 001221-PLT-A; 039336-XGK-M; 046701-Vgyotrozosktv; 812687-Otmamasiros, Total; 067435-LKN-W (Total);386120-Wxoaj LDL-P; 578597-WMZ Size; 509034-JA-HH Scorewas developed and its performance characteristics determinedby [employer]. It has not been cleared or approved by the Foodand Drug Administration.PATIENT WAS FASTINGPERFORMED BY: AcadiaSoft[address] [id number] BY: Sabakat Uzcuzo7595 [facility] [id number] Urea nitrogen/Creatinine [Mass ratio] 16 mg/mg Normal 10-24 [facility] Work Phone: Comment on above: Test(s) 990365-YTU-N ; 439478-OOY-R; 508823-TJF-A; 437785-Vatemjmagcydz; 570462-Mfccoclegyx, Total; 786552-BDX-K (Total);698780-Fuewi LDL-P; 132017-NQS Size; 917007-HG-BD Scorewas developed and its performance characteristics determinedby [employer]. It has not been cleared or approved by the Foodand Drug Administration.PATIENT WAS FASTINGPERFORMED BY: CoachUp[address] [id number] BY: [employer]6370 ClaytonHannibal Regional HospitalClzbyFry[facility] [id number] MICROALBUMINOrdered By: Syst em Trimmer Sawyer on 07-13-2019 Albumin DL <= 20 mg/L (U) [Mass/Vol] 63.0 ug/mL Normal Comprehensiv e Internal Medicine Work Phone: Comment on above: Test(s) 677421-OYO-P ; 823550-TUY-J; 678076-MLS-K; 214186-Pkhscxdqyexhw; 885117-Wjpfdsvgzvn, Total; 213869-GYC-D (Total);276367-Kauxm LDL-P; 262734-CWH Size; 838209-TR-PK Scorewas developed and its performance characteristics determinedby [employer]. It has not been cleared or approved by the Foodand Drug Administration.PATIENT WAS FASTINGPERFORMED BY: [employer] [address] [id number] BY: [employer]6370 [facility] [id number] Albumin/Creatinine (U) [Mass ratio] 32.4 {mg/g_creat} Abnormal 0.0-30.0 [facility] Work Phone: Comment on above: Normal: 0.0 - 30.0 A lbuminuria: 31.0 - 300.0 Clinical albuminuria: >300.0 Test(s) 198408-HIO-J ; 528970-TKA-J; 867210-HXP-T; 374938-Kqnbqdbfgeaxl; 351087-Eralbhiehaz, Total; 367203-YUG-L (Total);998886-Ezmpd LDL-P; 864233-GEP Size; 961455-IW-GI Scorewas developed and its performance characteristics determinedby [employer]. It has not been cleared or approved by the Foodand Drug Administration.PATIENT WAS FASTINGPERFORMED BY: [employer] [address] [id number] BY: [employer]6370 [facility] [id number] Creatinine (U) [Mass/Vol] 194.5 mg/dL Normal [facility] Work Phone: Comment on above: Test(s) 236746-AWC-V ; 735910-ZEN-W; 931863-EUK-S; 992249-Hrtfcvcstxgge; 576917-Kljpeqouesh, Total; 980371-NJF-I (Total);761953-Mtttv LDL-P; 954695-YCE Size; 774523-QQ-SA Scorewas developed and its performance characteristics determinedby [employer]. It has not been cleared or approved by the Foodand Drug Administration.PATIENT WAS FASTINGPERFORMED BY: [employer] [address] [id number] BY: [employer] Gskhxf0362 [facility] [id number] NMR Profile (94791)Ordered B y: Computer Specialist on 07-13-2019 Cholesterol [Mass/Vol] 147 mg/dL Normal 100-199 [facility] Work Phone: Comment on above: Test(s) 677630-XAO-B ; 529761-NEU-Q; 122808-JDR-S; 519106-Nwvzsjigdcsdv; 104126-Wtspnqoxacx, Total; 917514-BVQ-K (Total);513189-Owjua LDL-P; 727336-PVI Size; 643703-TY-ZX Scorewas developed and its performance characteristics determinedby [employer]. It has not been cleared or approved by the Foodand Drug Administration.PATIENT WAS FASTINGPERFORMED BY: [employer])[address] [id number] BY: [employer])[facility] CenterVyiigi5573 [facility] [id number] Lipoprotein.alpha [Moles/Vol] 26.8 umol/L Abnormal [facility] Work Phone: Comment on above: Test(s) 416668-ATX-Z ; 768002-JSL-H; 423750-DBQ-X; 884933-Squndetxgcfvc; 727167-Rrknulpcban, Total; 751316-KSD-S (Total);856235-Mymku LDL-P; 237302-ZYO Size; 629704-WP-MC Scorewas developed and its performance characteristics determinedby [employer] It has not been cleared or approved by the Foodand Drug Administration.PATIENT WAS FASTINGPERFORMED BY: [employer])[address] [id number] BY: [employer])[facility] CenterZsmgte2118 [facility] [id number] Lipoprotein.beta.sub particle [Entitic length] 20.0 nm Abnormal [...] not afterLDL-P is taken into account. Test(s) 833631-AQU-O ; 284686-NXE-V; 842257-QUB-Z; 371135-Nadeigvcixqbh; 198031-Morljmzhwxl, Total; 915311-DPU-U (Total);980285-Zztms LDL-P; 924372-ICK Size; 213114-ED-WJ Scorewas developed and its performance characteristics determinedby [employer]. It has not been cleared or approved by the Foodand Drug Administration.PATIENT WAS FASTINGPERFORMED BY: CoachUp[address] [id number] BY: [facility]kyCarondelet Health [id number] Lipoprotein.beta.sub particle [Moles/Vol] 1264 nmol/L Abnormal [facility] Internal Medicine Work Phone: Comment on above: Low < 1000 Moderate 1000 - 1299 Borderline-High 1300 - 1599 High 1600 - 2000 Very High > 2000 Test(s) 862045-GAB-G ; 556780-NRL-O; 228096-TOC-N; 637832-Wbhzgnklqbnlf; 774057-Wcglnautpjc, Total; 691835-ESR-Q (Total);799641-Imgut LDL-P; 822936-ULS Size; 610683-DV-WU Scorewas developed and its performance characteristics determinedby [employer]. It has not been cleared or approved by the Foodand Drug Administration.PATIENT WAS FASTINGPERFORMED BY: [employer] [address] [id number] BY: Ungalli70 [facility] [id number] Lipoprotein.beta.sub particle.small [Moles/Vol] 865 nmol/L Abnormal [facility] Internal Medicine Work Phone: Comment on above: Test(s) 249792-MGX-K ; 693500-IGX-P; 538469-WWN-L; 478979-Clakznoeoieci; 241067-Kyueaqgldnp, Total; 950889-JFG-Q (Total);045988-Flrof LDL-P; 257259-MTM Size; 810928-AD-YE Scorewas developed and its performance characteristics determinedby [employer]. It has not been cleared or approved by the Foodand Drug Administration.PATIENT WAS FASTINGPERFORMED BY: [employer] [address] [id number] BY: [employer])[facility] CenterPmdowh9866 [facility] [id number] Triglyceride [Mass/Vol] 141 mg/dL Normal 0-149 [facility] Internal Medicine Work Phone: Comment on above: Test(s) 198373-RBG-C ; 425694-ZXG-O; 694486-OUF-K; 199275-Kuhwkevcaqvsn; 546571-Zcyhfraxusp, Total; 413908-NBI-G (Total);697764-Hwbsk LDL-P; 248706-PQU Size; 855468-MP-TE Scorewas developed and its performance characteristics determinedby [employer]. It has not been cleared or approved by the Foodand Drug Administration.PATIENT WAS FASTINGPERFORMED BY: [employer] [address] [id number] BY: [employer] Zeqxdk7792 [facility] [id number] NMR Profile (11331) 87 mg/dL Normal 0-99 [facility] Internal Medicine Work Phone: Comment on above: . Optimal < 100 Abov e optimal 100 - 129 Borderline 130 - 159 High 160 - 189 Very high > 189 .LDL-C is inaccurate if patient is non-fasting. Test(s) 269786-IKY-Y ; 886309-TIZ-F; 255177-JUF-O; 085957-Dtxztygkvsolw; 721338-Bwbvadfuaby, Total; 534176-KSE-F (Total);017912-Xomjb LDL-P; 839487-ZSR Size; 715156-HK-ZQ Scorewas developed and its performance characteristics determinedby [employer]. It has not been cleared or approved by the Foodand Drug Administration.PATIENT WAS FASTINGPERFORMED BY: BN LabCo[address] [id number] BY: [employer] Ngrwvh7162 [facility] [id number] NMR Profile (11094) 32 mg/dL Abnormal Compr ensive Internal Medicine Work Phone: Comment on above: Test(s) 577488-HLX-B ; 508400-FDU-W; 857450-WZY-J; 479823-Iurcaljsixzqg; 951504-Dttrapxmoeg, Total; 466949-OJB-K (Total);936289-Saqth LDL-P; 158258-FLQ Size; 678502-PX-SU Scorewas developed and its performance characteristics determinedby [employer]. It has not been cleared or approved by the Foodand Drug Administration.PATIENT WAS FASTINGPERFORMED BY: [employer] [address] [id number] BY: [employer] Nrdhfh6039 [facility] [id number] NMR Profile (65272) 141 mg/dL Normal 0-149 Compr ehensive Internal Medicine; [facility] Work Phone: NMR Profile (30625) 147 mg/dL Normal 100-199 [facility] ehensive Internal Medicine; [facility] Work Phone: TSH (05883)Ordered By: Alethea Price on 07-13-2019 TSH Qn 2.110 {uIU/mL} Normal 0.450-4.50 0 [facility] Work Phone: Comment on above: Test(s) 787101-QAS-Q ; 886573-NWQ-A; 574293-COE-M; 347355-Hzocrungvianw; 404273-Fqigzfyzlbl, Total; 941406-YAZ-R (Total);597344-Dwhvy LDL-P; 731228-UMD Size; 142535-YU-TC Scorewas developed and its performance characteristics determinedby [employer] It has not been cleared or approved by the Foodand Drug Administration.PATIENT WAS FASTINGPERFORMED BY: [employer] [id number] BY: [employer]6370 [facility] [id number] URINALYSIS, W/ MICRO (00058) Ordered By: Computer Specialist on 07-13-2019 Appearance (U) Cloudy Abnormal Comprehens damien Internal Medicine Work Phone: Comment on above: Test(s) 178564-UEZ-R ; 336734-ETC-I; 174421-UVY-S; 393302-Lonxcjdtmjerz; 216307-Yhkrcfsddsf, Total; 290716-TTU-D (Total);008216-Xpvkl LDL-P; 680697-PXI Size; 508665-XC-TJ Scorewas developed and its performance characteristics determinedby [employer]. It has not been cleared or approved by the Foodand Drug Administration.PATIENT WAS FASTINGPERFORMED BY: CoachUp[address] [id number] BY: Ungalli70 ChinaCacheLifeBrite [facility] [id number] Bilirubin Ql (U) Negative Normal Comprehe nsive Internal Medicine Work Phone: Comment on above: Test(s) 397914-SGG-O ; 466513-LXX-S; 753595-EFM-R; 638376-Chcecgeylejai; 690103-Icyvoutpyiw, Total; 802419-GLI-U (Total);636153-Yzknt LDL-P; 890938-SHM Size; 085143-NV-FC Scorewas developed and its performance characteristics determinedby [employer]. It has not been cleared or approved by the Foodand Drug Administration.PATIENT WAS FASTINGPERFORMED BY: [employer] [address] [id number] BY: ClassOwllin6370 [facility] [id number] Bilirubin Ql (U) Negative Normal Comprehe nsive Internal Medicine; [facility] Work Phone: Comment on above: Test(s) 206456-FBD-F ; 310634-OTQ-B; 117487-TGU-C; 955274-Sxjlqjppdzciw; 065325-Gzqxbhuiaho, Total; 812758-CZP-B (Total);967184-Banvw LDL-P; 707864-FNT Size; 694437-TS-OZ Scorewas developed and its performance characteristics determinedby [employer]. It has not been cleared or approved by the Foodand Drug Administration.PATIENT WAS FASTINGPERFORMED BY: AcadiaSoft[address] [id number] BY: Aplica70 [facility] [id number] Color (U) Yellow Normal [facility] Work Phone: Comment on above: Test(s) 942181-RRF-E ; 741690-YNC-C; 330690-MKM-Y; 689714-Wfouaafaoygte; 973783-Ptcytxoggxn, Total; 194762-QST-C (Total);990016-Ayucu LDL-P; 592654-AIN Size; 924252-BC-ES Scorewas developed and its performance characteristics determinedby [employer]. It has not been cleared or approved by the Foodand Drug Administration.PATIENT WAS FASTINGPERFORMED BY: [employer] [address] [id number] BY: Ungalli70 [facility] [id number] Glucose Ql (U) Negative Normal Comprehens damien Internal Medicine Work Phone: Comment on above: Test(s) 111683-LAJ-R ; 896934-IMF-V; 412351-PNM-V; 726160-Vulfwsymssjrg; 146852-Jysbozvrpbw, Total; 629070-SCS-L (Total);849498-Rmdtv LDL-P; 056272-UEI Size; 054009-DK-XJ Scorewas developed and its performance characteristics determinedby [employer]. It has not been cleared or approved by the Foodand Drug Administration.PATIENT WAS FASTINGPERFORMED BY: [employer] [address] [id number] BY: [employer]6370 [facility] [id number] Glucose Ql (U) Negative Normal Comprehens damien Internal Medicine; [facility] Work Phone: Comment on above: Test(s) 887631-TIK-Y ; 516644-VES-I; 363739-HYT-Z; 140722-Mepkgknuwfhms; 431374-Ahyshvulylg, Total; 019997-ZBO-Q (Total);096400-Lcigq LDL-P; 314972-JNA Size; 806718-AE-QZ Scorewas developed and its performance characteristics determinedby [employer]. It has not been cleared or approved by the Foodand Drug Administration.PATIENT WAS FASTINGPERFORMED BY: [employer] [address] [id number] BY: [employer] K[address] [place] [address] [id number] Hemoglobin Ql (U) Negative Normal Compreh ensive Internal Medicine Work Phone: Comment on above: Test(s) 081077-VQN-I ; 876092-MOD-B; 311676-GPT-J; 769517-Dxpvrbnwogvfm; 693280-Qdkmziectgi, Total; 060745-BUB-P (Total);866226-Golqw LDL-P; 392341-GLN Size; 417918-TN-AA Scorewas developed and its performance characteristics determinedby [employer]. It has not been cleared or approved by the Foodand Drug Administration.PATIENT WAS FASTINGPERFORMED BY: [employer] [address] [id number] BY: [employer] Eqddza4800 [facility] [id number] Hemoglobin Ql (U) Negative Normal Compreh ensive Internal Medicine; [facility] Work Phone: Comment on above: Test(s) 032279-LWM-U ; 482177-DVC-M; 741733-UHQ-T; 740083-Kuyqkycrkxxbi; 839842-Fegzhzwxuqc, Total; 318618-BUJ-X (Total);689829-Fxrwc LDL-P; 076273-EHL Size; 332442-OH-UV Scorewas developed and its performance characteristics determinedby [employer]. It has not been cleared or approved by the Foodand Drug Administration.PATIENT WAS FASTINGPERFORMED BY: BN [employer]Co[address] [id number] BY: [employer])[facility] Medical CenterDospgg3334 [facility] [id number] Ketones Ql (U) Negative Normal Comprehens damien Internal Medicine Work Phone: Comment on above: Test(s) 302204-QOM-D ; 909317-YAY-W; 506211-ZEU-I; 183983-Hbrkmdjdlndxf; 738390-Xvuzftjgpjk, Total; 647567-GWE-H (Total);724178-Sxdvd LDL-P; 480635-BNI Size; 815476-RU-VC Scorewas developed and its performance characteristics determinedby [employer]. It has not been cleared or approved by the Foodand Drug Administration.PATIENT WAS FASTINGPERFORMED BY: [employer] [address] [id number] BY: [employer])[facility] Medical CenterRdynvp4499 [facility] [id number] Ketones Ql (U) Negative Normal Comprehens damien Internal Medicine; [facility] Work Phone: Comment on above: Test(s) 201381-YLV-N ; 165646-IJV-W; 915762-RGM-J; 805820-Nzdohroxfzlsk; 624017-Thjtxjtpggf, Total; 118163-MSZ-A (Total);396294-Pwwnt LDL-P; 174007-FTO Size; 541165-QH-EY Scorewas developed and its performance characteristics determinedby [employer]. It has not been cleared or approved by the Foodand Drug Administration.PATIENT WAS FASTINGPERFORMED BY: [employer] [id number] BY: [employer])[facility] Medical CenterZxigcg9721 [facility] [id number] Leukocyte esterase Test strip Ql (U) 1+ Abnormal [facility] Work Phone: Comment on above: Test(s) 402244-DJQ-D ; 422146-TUC-P; 877746-DDG-M; 851645-Hivudeoffmjla; 685521-Pkirohugcnz, Total; 161672-SRQ-E (Total);986834-Vvhto LDL-P; 314388-MQO Size; 033884-PW-UF Scorewas developed and its performance characteristics determinedby [employer]. It has not been cleared or approved by the Foodand Drug Administration.PATIENT WAS FASTINGPERFORMED BY: AcadiaSoft[address] [id number] BY: [employer] Kocdlj6728 [facility] [id number] Microscopic observation LM Nom (Urine sed) See below: Normal [facility] Work Phone: Comment on above: Microscopic was jayden cated and was performed. Test(s) 575444-SPR-O ; 785359-GVN-I; 395508-ZYX-C; 056365-Hebwxecxnkypv; 805217-Twrdfenabgq, Total; 681573-LXF-H (Total);280513-Gbpdh LDL-P; 039809-AXM Size; 995575-VU-ST Scorewas developed and its performance characteristics determinedby [employer]. It has not been cleared or approved by the Foodand Drug Administration.PATIENT WAS FASTINGPERFORMED BY: [employer] [address] [id number] BY: Ungalli70 [place] [facility] OperandiLifeBrite Community Hospital [facility] [id number] Nitrite Ql (U) Negative Normal Comprehens damien Internal Medicine Work Phone: Comment on above: Test(s) 976818-QWR-F ; 986454-TLN-Y; 363471-LHB-K; 385848-Shnqhikhppkey; 701858-Txishssmnok, Total; 225533-LPM-C (Total);770875-Rhczx LDL-P; 227847-IWX Size; 363968-WY-FO Scorewas developed and its performance characteristics determinedby [employer]. It has not been cleared or approved by the Foodand Drug Administration.PATIENT WAS FASTINGPERFORMED BY: [employer] [address] [id number] BY: Sabakat Ndkzyk8098 [facility] [id number] Nitrite Ql (U) Negative Normal Comprehens damien Internal Medicine; [facility] Work Phone: Comment on above: Test(s) 714591-CZG-W ; 303192-MAR-C; 696715-KWA-O; 466235-Cwnwhzzxmgqep; 581783-Cvttrhdqfuo, Total; 550977-LTJ-E (Total);016596-Fzivr LDL-P; 492163-OIZ Size; 314917-GJ-OM Scorewas developed and its performance characteristics determinedby [employer]. It has not been cleared or approved by the Foodand Drug Administration.PATIENT WAS FASTINGPERFORMED BY: CoachUp[address] [id number] BY: Ungalli70 [facility] [id number] pH (U) 5.5 [pH] Normal 5.0-7.5 [facility] Work Phone: Comment on above: Test(s) 339802-NJA-V ; 415376-BZQ-E; 915738-VGE-F; 392415-Xsqbwgygcxwya; 920528-Vyahqjpafpa, Total; 818023-TZK-J (Total);531303-Kzqxs LDL-P; 398899-XZH Size; 841444-UX-VK Scorewas developed and its performance characteristics determinedby [employer]. It has not been cleared or approved by the Foodand Drug Administration.PATIENT WAS FASTINGPERFORMED BY: CoachUp[address] [id number] BY: [employer]6370 [facility] [id number] Protein Ql (U) 1+ Abnormal Comprehens damien Internal Medicine Work Phone: Comment on above: Test(s) 121815-OWH-O ; 651108-VWH-L; 820097-XPX-A; 246993-Ajmwbdkwzvsmj; 167145-Rwkbhclduem, Total; 043230-BYO-G (Total);902494-Ujssk LDL-P; 342138-QCM Size; 542183-IN-HL Scorewas developed and its performance characteristics determinedby [employer]. It has not been cleared or approved by the Foodand Drug Administration.PATIENT WAS FASTINGPERFORMED BY: [employer] [address] [id number] BY: Ungalli70 ChinaCacheLifeBrite [facility] [id number] Specific gravity (U) [Rel density] 1.020 1 Normal 1.005-1.03 0 [facility] Internal Medicine Work Phone: Comment on above: Test(s) 039412-CAO-G ; 595962-IIP-Y; 325566-SNR-W; 840838-Anhszgukrzgru; 752678-Zsdsxqtbtql, Total; 301229-NSL-X (Total);904134-Ytkan LDL-P; 278273-BWZ Size; 328680-VV-FX Scorewas developed and its performance characteristics determinedby [employer]. It has not been cleared or approved by the Foodand Drug Administration.PATIENT WAS FASTINGPERFORMED BY: CoachUp[address] [id number] BY: [employer]6370 [place] [facility] OperandiLifeBrite [facility] [id number] Urobilinogen (U) [Mass/Vol] 0.2 mg/dL Normal 0.2-1.0 [facility]; [facility] Internal Medicine Work Phone: Comment on above: Test(s) 620242-BUH-Y ; 193396-XKP-U; 023259-IEB-K; 501125-Foedjxaiollbs; 017736-Lrgmimwtisl, Total; 155152-OGK-G (Total);397848-Owzpo LDL-P; 735777-XXI Size; 303039-JX-RH Scorewas developed and its performance characteristics determinedby [employer]. It has not been cleared or approved by the Foodand Drug Administration.PATIENT WAS FASTINGPERFORMED BY: [employer] [address] [id number] BY: ClassOwllin6370 [facility] [id number] Urobilinogen Test strip (U) [Mass/Vol] 0.2 mg/dL Normal 0.2-1.0 [facility] Internal Medicine Work Phone: Comment on above: Test(s) 625180-YLJ-X ; 582035-HWZ-W; 943897-ART-S; 533270-Kqfrfpsvaqsxj; 034801-Nvnupvxvtha, Total; 306733-EFB-S (Total);126149-Uihcc LDL-P; 905632-HCQ Size; 130861-NJ-TG Scorewas developed and its performance characteristics determinedby [facility]. It has not been cleared or approved by the Foodand Drug Administration.PATIENT WAS FASTINGPERFORMED BY: BN [facility] Ernipobbvd4252 [facility] [id number] BY: CB [facility] Eevvzk4183 [facility] [id number] PROGRESSon 04-06-2019 PROGRESS HNO ID: [id number] Author: Shayan Rivera Service: ? Author Type: SPECIAL OFFICER AUTOMAT Type: Progress Notes Filed: 04/06/2019 3:58 PM [...] the findings, diagnosis, and treatment options. Normal [facility] Blood Glucose , Office ([phone])Ordered By: Yazmin Ball on 03-29-2019 Glucose Glucometer (BldC) [Moles/Vol] 119 1 Normal [facility] Work Phone: HgA1C , Office (74277)Goran daniel By: Kevin Carpio on 03-29-2019 HbA1c (Bld) [Mass fraction] 5.1 % Normal 4.6 - 7.1 [facility] Work Phone: PROGRESSon 03-03-2019 PROGRESS HNO ID: [id number] Author: Eh Thomas Service: ? Author Type: [...] the findings, diagnosis, and treatment options. Normal [facility] PROGRESSon 2019 PROGRESS HNO ID: [id number] Author: Eh Thomas Service: ? Author Type: [...] day left eye. Eh Thomas MD Normal [facility] CALCIFIDIOL (49387) VIT D 25 Ordered By: Computer Specialist on 10-26-2018 25-Hydroxyvitamin D2+25-Hydroxyvitamin D3 mass conc 21.0 ng/mL Abnormal 30.0-100.0 [facility] Work Phone: Comment on above: Vitamin D deficiency has been defined by the [place] ofMedicine and an Endocrine Society practice guideline as alevel of serum 25-OH vitamin D less than 20 ng/mL (1,2).The Endocrine Society went on to further define vitamin Dinsufficiency as a level between 21 and 29 ng/mL (2).1. IOM ([place] of Medicine). 2010. Dietary reference intakes for calcium and D. [place]: The National Academies Press.2. Rayna MF, Ana Luisa HASSAN, William CUBA, et al. Evaluation, treatment, and prevention of vitamin D deficiency: an Endocrine Society clinical practice guideline. JCEM. 2010; 96(7):1911-30. PATIENT WAS FASTINGP ERFORMED BY: [employer] [facility] [id number] BY: [employer] Memorial HealthcareClzbyFrye Regional [facility] [id number] CBC with auto diff (19206)Or dered By: Computer Specialist on 10-26-2018 Basophils #/vol (Bld) 0.1 {x10E3/uL} Normal 0.0-0.2 [facility] Work Phone: Comment on above: PATIENT WAS FASTINGP ERFORMED BY: [employer] [facility] [id number] BY: Ungalli70 Keystone RV CompanyFrye Regional Medical Center [facility] [id number] Basophils (Bld) [#/Vol] 0.1 10*3/uL Normal 0.0-0.2 [facility]; [facility] Work Phone: Comment on above: PATIENT WAS FASTINGP ERFORMED BY: BN LabCo[address] [id number] BY: [facility] Bztmaf1242 [address] RoadDublin [place] [id number] Basophils/100 WBC (Bld) 1 % Normal [facility] Work Phone: Comment on above: PATIENT WAS FASTINGP ERFORMED BY: Lab[address] [id number] BY: [facility] Kxvrtg8853 [address] RoadDublin [place] [id number] Eosinophils #/vol (Bld) 0.1 {x10E3/uL} Normal 0.0-0.4 [facility] Work Phone: Comment on above: PATIENT WAS FASTINGP ERFORMED BY: Lab[address] [id number] BY: LabCo Fprsgg2563 [address] RoadLifeBrite Community Hospital [facility] [id number] Eosinophils (Bld) [#/Vol] 0.1 10*3/uL Normal 0.0-0.4 [facility]; [facility] Work Phone: Comment on above: PATIENT WAS FASTINGP ERFORMED BY: [address] [id number] BY: [facility] Erbvxw7261 [address] RoadLifeBrite Community Hospital [facility] [id number] Eosinophils/100 WBC (Bld) 1 % Normal [facility] Work Phone: Comment on above: PATIENT WAS FASTINGP ERFORMED BY: Lab[address] [id number] BY: [facility] Ippepc4237 [facility] [id number] Erythrocyte distribution width Ratio (RBC) 13.5 % Normal 12.3-15.4 [facility] Work Phone: Comment on above: PATIENT WAS FASTINGP ERFORMED BY: [address] [id number] BY: [facility]6370 [facility] [id number] Hematocrit Volume Fraction (Bld) 44.5 % Normal 37.5-51.0 [facility] Work Phone: Comment on above: PATIENT WAS FASTINGP ERFORMED BY: [address] [id number] BY: Lab[facility] Vbprdg5410 [address] RoadUnc Healthin [place] [id number] Hemoglobin mass conc (Bld) 15.1 g/dL Normal 13.0-17.7 [facility] Work Phone: Comment on above: PATIENT WAS FASTINGP ERFORMED BY: [address] [id number] BY: LabK[place] 6349570 [facility] [id number] Immature granulocytes #/vol (Bld) 0.1 {x10E3/uL} Normal 0.0-0.1 [facility] Work Phone: Comment on above: PATIENT WAS FASTINGP ERFORMED BY: [address] [id number] BY: [place] 6575470 [facility] [id number] Immature granulocytes (Bld) [#/Vol] 0.1 10*3/uL Normal 0.0-0.1 [facility]; [facility] Work Phone: Comment on above: PATIENT WAS FASTINGP ERFORMED BY: [address] [id number] BY: LabK[place] 6349570 [facility] [id number] Immature granulocytes/100 WBC (Bld) 1 % Normal [facility] Work Phone: Comment on above: PATIENT WAS FASTINGP ERFORMED BY: [address] [id number] BY: LabK[place] 6349570 [place] RoadLifeBrite Community Hospital [facility] [id number] Lymphocytes #/vol (Bld) 1.6 {x10E3/uL} Normal 0.7-3.1 [facility] Work Phone: Comment on above: PATIENT WAS FASTINGP ERFORMED BY: Lab[address] [id number] BY: LabCoHackensack University Medical CenterNdsczm8075 [facility] [id number] Lymphocytes (Bld) [#/Vol] 1.6 10*3/uL Normal 0.7-3.1 [facility]; [facility] Work Phone: Comment on above: PATIENT WAS FASTINGP ERFORMED BY: [address] [id number] BY: LabK[place] 6349570 [facility] [id number] Lymphocytes/100 WBC (Bld) 16 % Normal [facility] Work Phone: Comment on above: PATIENT WAS FASTINGP ERFORMED BY: [address] [id number] BY: LabCoHackensack University Medical CenterFetizr7677 [facility] [id number] MCH Entitic mass (RBC) 29.8 pg Normal 26.6-33.0 [facility] Work Phone: Comment on above: PATIENT WAS FASTINGP ERFORMED BY: [address] [id number] BY: LabBr[facility] Hospital6370 [facility] [id number] MCHC mass conc (RBC) 33.9 g/dL Normal 31.5-35.7 Comp [facility] Internal Medicine Work Phone: Comment on above: PATIENT WAS FASTINGP ERFORMED BY: [address] [id number] BY: LabCoHackensack University Medical CenterTqfyyv7675 [facility] [id number] MCV Entitic volume (RBC) 88 fL Normal 79-97 [facility] Work Phone: Comment on above: PATIENT WAS FASTINGP ERFORMED BY: Lab[address] [id number] BY: [facility] Ukwyaa7289 [address] RoadDublin [place] [id number] Monocytes #/vol (Bld) 0.6 {x10E3/uL} Normal 0.1-0.9 [facility] Work Phone: Comment on above: PATIENT WAS FASTINGP ERFORMED BY: LabCo[address] [id number] BY: [facility] Gokwcu7863 [address] RoadDublin [place] [id number] Monocytes (Bld) [#/Vol] 0.6 10*3/uL Normal 0.1-0.9 [facility]; [facility] Work Phone: Comment on above: PATIENT WAS FASTINGP ERFORMED BY: Lab[address] [id number] BY: [facility] Kzahle4049 [address] RoadDublin [place] [id number] Monocytes/100 WBC (Bld) 6 % Normal [facility] Work Phone: Comment on above: PATIENT WAS FASTINGP ERFORMED BY: Lab[address] [id number] BY: [facility] Jyoaig8352 [address] RoadDublin [place] [id number] Neutrophils #/vol (Bld) 7.9 {x10E3/uL} Abnormal 1.4-7.0 [facility] Work Phone: Comment on above: PATIENT WAS FASTINGP ERFORMED BY: Lab[address] [id number] BY: [facility] Kyhebv6899 [address] RoadDublin [place] [id number] Neutrophils (Bld) [#/Vol] 7.9 10*3/uL Abnormal 1.4-7.0 [facility]; [facility] Work Phone: Comment on above: PATIENT WAS FASTINGP ERFORMED BY: Lab[address] [id number] BY: CAROLA [facility] Tnmvqb9115 Clayton RoadDuin [place] [id number] Neutrophils/100 WBC (Bld) 75 % Normal [facility] Work Phone: Comment on above: PATIENT WAS FASTINGP ERFORMED BY: [facility] [address] [id number] BY: CAROLA [facility] Pcawxr5446 [address] RoadDublin [place] [id number] Platelets #/vol (Bld) 212 {x10E3/uL} Normal 150-379 [facility] Work Phone: Comment on above: PATIENT WAS FASTINGP ERFORMED BY: [address] [id number] BY: CAROLA [facility] Pqvbbq7918 [address] RoadLifeBrite Community Hospital [facility] [id number] Platelets (Bld) [#/Vol] 212 10*3/uL Normal 150-379 [facility]; [facility] Work Phone: Comment on above: PATIENT WAS FASTINGP ERFORMED BY: LabMtrp [address] [id number] BY: CAROLA [facility] Ghubup8865 [facility] [id number] RBC #/vol (Bld) 5.07 {x10E6/uL} Normal 4.14-5.80 [facility] Internal Medicine Work Phone: Comment on above: PATIENT WAS FASTINGP ERFORMED BY: Lab[address] [id number] BY: [facility] Ecsxbd2678 [address] [facility] Hospitalin [place] [id number] RBC (Bld) [#/Vol] 5.07 10*6/uL Normal 4.14-5.80 [facility] Hospitalensive [facility]; [facility] Work Phone: Comment on above: PATIENT WAS FASTINGP ERFORMED BY: LabFooPets[address] [id number] BY: LabCoHackensack University Medical CenterRmhpgx7173 [facility] [id number] WBC #/vol (Bld) 10.4 {x10E3/uL} Normal 3.4-10.8 Comp rehensive Internal Medicine Work Phone: Comment on above: PATIENT WAS FASTINGP ERFORMED BY: LabCo[address] [id number] BY: [facility] Nqwkht3039 [facility] [id number] WBC (Bld) [#/Vol] 10.4 10*3/uL Normal 3.4-10.8 Compr ehensive Internal Medicine; [facility] Work Phone: Comment on above: PATIENT WAS FASTINGP ERFORMED BY: [employer] [id number] BY: LabBr[facility] Hospital6370 [facility] [id number] HGB A1C (83010)Ordered By: S ystem Trimmer Sawyer on 10-26-2018 Hemoglobin A1c/Hemoglobin.total mass fraction (Bld) 5.7 % Abnormal 4.8-5.6 Comprehensiv e Internal Medicine Work Phone: Comment on above: . Prediabetes: 5.7 - 6.4 Diabetes: >6.4 Glycemic control for adults with diabetes: <7.0 PATIENT WAS FASTINGP ERFORMED BY: LabFooPets[address] [id number] BY: [facility] Cxpbrc6802 [facility] [id number] METABOLIC PANEL, COMPREHENSI VE (09630)Ordered By: Computer Specialist on 10-26-2018 Albumin mass conc 4.7 g/dL Normal 3.6-4.8 Compreh ensive Internal Medicine Work Phone: Comment on above: PATIENT WAS FASTINGP ERFORMED BY: Lab[address] [id number] BY: Lab[facility] Smxnex7316 [address] RoadDublin [place] [id number] Albumin/Globulin mass ratio 2.0 {ratio} Normal 1.2-2.2 [facility] Work Phone: Comment on above: PATIENT WAS FASTINGP ERFORMED BY: [address] [id number] BY: LabBronson [facility] Hospital6370 [address] RoadDublin [place] [id number] ALP [Catalytic activity/Vol] 111 U/L Normal 39-117 [facility]; [facility] Internal Medicine Work Phone: Comment on above: PATIENT WAS FASTINGP ERFORMED BY: [address] [id number] BY: Lab[facility] Wduhgj1282 [address] RoadDublin [place] [id number] ALP enzyme act/vol 111 [iU]/L Normal 39-117 [facility] Internal Medicine Work Phone: Comment on above: PATIENT WAS FASTINGP ERFORMED BY: [address] [id number] BY: LabBronson [facility] Hospital6370 [address] RoadDublin [place] [id number] ALT [Catalytic activity/Vol] 26 U/L Normal 0-44 [facility]; [facility] Internal Medicine Work Phone: Comment on above: PATIENT WAS FASTINGP ERFORMED BY: [address] [id number] BY: [facility] Lffsqm0652 [address] RoadDublin [place] [id number] ALT enzyme act/vol 26 [iU]/L Normal 0-44 [facility] Internal Medicine Work Phone: Comment on above: PATIENT WAS FASTINGP ERFORMED BY: [address] [id number] BY: LabTwo [facility] Carnee0180 [address] RoadDublin [place] [id number] AST [Catalytic activity/Vol] 23 U/L Normal 0-40 [facility]; [facility] Work Phone: Comment on above: PATIENT WAS FASTINGP ERFORMED BY: LabCo[address] [id number] BY: [facility] Lqzwvu6856 Clayot[address] RoadDublin [place] [id number] AST enzyme act/vol 23 [iU]/L Normal 0-40 Compre hensive Internal Medicine Work Phone: Comment on above: PATIENT WAS FASTINGP ERFORMED BY: Lab[address] [id number] BY: LabCoScott Ville 6221570 [facility] [id number] Bilirubin mass conc 0.5 mg/dL Normal 0.0-1.2 Compr ehensive Internal Medicine Work Phone: Comment on above: PATIENT WAS FASTINGP ERFORMED BY: Lab[address] [id number] BY: LabCo Wsymyn4558 [address] [facility] Hospitalin [place] [id number] Calcium mass conc 9.4 mg/dL Normal 8.6-10.2 Compreh ensive Internal Medicine Work Phone: Comment on above: PATIENT WAS FASTINGP ERFORMED BY: Lab[address] [id number] BY: [facility] Rzfnke3182 [address] [facility]in [place] [id number] Chloride molar conc 103 mmol/L Normal 96-106 Compr ehensive Internal Medicine Work Phone: Comment on above: PATIENT WAS FASTINGP ERFORMED BY: LabCo[address] [id number] BY: [facility] Oiycdo8027 [address] RoadDublin [place] [id number] CO2 molar conc 24 mmol/L Normal 20-29 Comprehens damien Internal Medicine Work Phone: Comment on above: PATIENT WAS FASTINGP ERFORMED BY: [facility] [address] [id number] BY: [facility] Csrqmn7534 [address] RoadDublin [place] [id number] Creatinine mass conc 1.12 mg/dL Normal 0.76-1.27 Comp rehensive Internal Medicine Work Phone: Comment on above: PATIENT WAS FASTINGP ERFORMED BY: [facility] [address] [id number] BY: [facility] Pusfsk6912 [address] RoadDublin [place] [id number] GFR/1.73 sq M predicted among blacks CKD-EPI vol rate/area (S/P/Bld) 80 mL/min/1.73 Normal Comprehensiv e Internal Medicine Work Phone: Comment on above: PATIENT WAS FASTINGP ERFORMED BY: LabCo[address] [id number] BY: [facility] Ilktit6371 [address] RoadLifeBrite Community Hospital [facility] [id number] GFR/1.73 sq M predicted among non-blacks CKD-EPI vol rate/area (S/P/Bld) 69 mL/min/1.73 Normal [facility] Work Phone: Comment on above: PATIENT WAS FASTINGP ERFORMED BY: LabCo[address] [id number] BY: [facility] Mathxq7942 [address] RoadUnc Healthin [place] [id number] Globulin mass conc (S) 2.4 g/dL Normal 1.5-4.5 [facility] Work Phone: Comment on above: PATIENT WAS FASTINGP ERFORMED BY: [facility] [address] [id number] BY: CB [facility] Gpbcon6720 [address] Roadblin [place] [id number] Glucose mass conc 84 mg/dL Normal 65-99 Compreh ensive Internal Medicine Work Phone: Comment on above: PATIENT WAS FASTINGP ERFORMED BY: [facility] Tmbekfpwcz9568 [facility] [id number] BY: CAROLA [facility] Krvsgx6769 [address] RoadDublin [place] [id number] Potassium molar conc 4.6 mmol/L Normal 3.5-5.2 Comp rehensive Internal Medicine Work Phone: Comment on above: PATIENT WAS FASTINGP ERFORMED BY: BN [facility] [address] [id number] BY: CB [facility] Htmyji8634 [address] RoadDublin [place] [id number] Protein mass conc 7.1 g/dL Normal 6.0-8.5 Compreh ensive Internal Medicine Work Phone: Comment on above: PATIENT WAS FASTINGP ERFORMED BY: BN [facility] [address] [id number] BY: CB [facility] Pkdudu7749 [address] RoadDublin [place] [id number] Sodium molar conc 141 mmol/L Normal 134-144 Compreh ensive Internal Medicine Work Phone: Comment on above: PATIENT WAS FASTINGP ERFORMED BY: [facility] [address] [id number] BY: CAROLA [facility] Tihdkd8319 [address] RoadDublin [place] [id number] Urea nitrogen mass conc 23 mg/dL Normal 8-27 [facility] Work Phone: Comment on above: PATIENT WAS FASTINGP ERFORMED BY: [facility] [address] [id number] BY: CB [facility] Yeezoh9101 [address] RoadDublin [place] [id number] Urea nitrogen/Creatinine mass ratio 21 mg/mg Normal 10-24 [facility] Work Phone: Comment on above: PATIENT WAS FASTINGP ERFORMED BY: [facility] [address] [id number] BY: CB [facility] Holgof3013 [facility] [id number] MICROALBUMINOrdered By: Syst em Trimmer Sawyer on 10-26-2018 Albumin DL <= 20 mg/L mass conc (U) 5.4 ug/mL Normal [facility] Work Phone: Comment on above: PATIENT WAS FASTINGP ERFORMED BY: [employer] [id number] BY: CAROLA LabCoHackensack University Medical CenterYvdfbe6105 [facility] [id number] Albumin/Creatinine mass ratio (U) 3.6 {mg/g_creat} Normal 0.0-30.0 [facility] Work Phone: Comment on above: Normal: 0.0 - 30.0 A lbuminuria: 31.0 - 300.0 Clinical albuminuria: >300.0 PATIENT WAS FASTINGP ERFORMED BY: [employer] [id number] BY: CAROLA I GotchuBronson Methodist Hospital6370 [facility] [id number] Creatinine mass conc (U) 149.3 mg/dL Normal [facility] Work Phone: Comment on above: PATIENT WAS FASTINGP ERFORMED BY: [employer] [id number] BY: CAROLA LabBr[facility] Hospital6370 [facility] [id number] NMR Profile (47783)Ordered B y: Computer Specialist on 10-26-2018 Cholesterol mass conc 194 mg/dL Normal 100-199 [facility] Work Phone: Comment on above: PATIENT WAS FASTINGP ERFORMED BY: [employer] [id number] BY: LabBr[facility] Hospital6370 [facility] [id number] Lipoprotein.alpha molar conc 27.2 umol/L Abnormal [facility] Work Phone: Comment on above: PATIENT WAS FASTINGP ERFORMED BY: [employer] [id number] BY: [employer]6370 [facility] [id number] Lipoprotein.beta.sub particle Entitic length 20.3 nm Abnormal [...] were developed and their performance characteristicsdetermined by [employer]. These assays have not been cleared by [place] Food and Drug Administration. The clinical utility of theselaboratory values have not been fully established. PATIENT WAS FASTINGP ERFORMED BY: CoachUp[address] [id number] BY: [employer]6370 [facility] [id number] Lipoprotein.beta.sub particle molar conc 1629 nmol/L Abnormal Comprehensiv e Internal Medicine Work Phone: Comment on above: Low < 1000 Moderate 1000 - 1299 Borderline-High 1300 - 1599 High 1600 - 2000 Very High > 2000 PATIENT WAS FASTINGP ERFORMED BY: BN [facility] [address] [id number] BY: Lab[facility] Udwsxe3477 [facility] [id number] Lipoprotein.beta.sub particle.small molar conc 858 nmol/L Abnormal [facility] Work Phone: Comment on above: PATIENT WAS FASTINGP ERFORMED BY: [address] [id number] BY: [facility] Kfxegv1394 [facility] [id number] Triglyceride mass conc 131 mg/dL Normal 0-149 [facility] Work Phone: Comment on above: PATIENT WAS FASTINGP ERFORMED BY: [address] [id number] BY: [facility]6370 [facility] [id number] NMR Profile (27534) 131 mg/dL Normal 0-149 Compr ensive Internal Medicine Work Phone: Comment on above: . Optimal < 100 Abov e optimal 100 - 129 Borderline 130 - 159 High 160 - 189 Very high > 189 .LDL-C is inaccurate if patient is non-fasting. PATIENT WAS FASTINGP ERFORMED BY: [address] [id number] BY: [facility]6370 [facility] [id number] NMR Profile (42629) 37 mg/dL Abnormal Compr ensive Internal Medicine Work Phone: Comment on above: PATIENT WAS FASTINGP ERFORMED BY: [address] [id number] BY: [facility] Lmlgvt6255 [facility] [id number] NMR Profile (30170) 194 mg/dL Normal 100-199 Compr ehensive Internal Medicine; [facility] Work Phone: PSA (PROSTATE SPECIFIC ANTIG EN) (V76.44)Ordered By: Computer Specialist on 10-26-2018 Prostate specific Ag mass conc 5.7 ng/mL Abnormal 0.0-4.0 [facility] Work Phone: Comment on above: Roseanna ECLIA methodol ogy. .According to the [place] [employer], Serum PSA shoulddecrease and remain [...] malignant disease. PATIENT WAS FASTINGP ERFORMED BY: CoachUpton1447 [facility] [id number] BY: LemoptixFrye Regional [facility] [id number] TSH (THYROID STIMULATING HOR [place]) (34762)Ordered By: Computer Specialist on 10-26-2018 Thyrotropin Qn 1.220 {uIU/mL} Normal 0.450-4.50 0 [facility] Work Phone: Comment on above: PATIENT WAS FASTINGP ERFORMED BY: CoachUpton1447 [facility] [id number] BY: Ungalli70 [employer] RV CompanyFrye Regional Medical Center [facility] [id number] URINE LINDSEY CULTURE-IDENTIFICA [place] (03415)Ordered By: Computer Specialist on 11-16-2017 Bacteria identified Cx Nom (U) MUG Normal [facility] Work Phone: Comment on above: Mixed urogenital russ ra1,000 Colonies/mL PATIENT NOT FASTINGP ERFORMED BY: [employer] Hmstnt[address] Moda OperandiLifeBrite Community Hospital [facility] [id number] Information: SRC:UC Bacteria identified Cx Nom (U) Final report Normal [facility] Work Phone: Comment on above: PATIENT NOT FASTINGP ERFORMED BY: [employer]6370 [employer]stone RV CompanyFrye Regional Medical Center [facility] [id number] Information: SRC:KAREN Urinalysis, Office ([phone])Or dered By: Marilynn Wallace on 11-14-2017 Bilirubin [...] Medicine Work Phone: Blood Glucose , Office ([phone])Ordered By: Jayla Barlow on 10-05-2017 Glucose Glucometer molar conc (BldC) 114 1 Normal [facility] Work Phone: Comment on above: not fasting HgA1C , Office ([phone])Ordere d By: Jayla Barlow on 10-05-2017 Hemoglobin A1c/Hemoglobin.total mass fraction (Bld) 5.3 % Normal 4.6 - 7.1 Comprehensiv e Internal Medicine Work Phone: PSA TOTAL +%FREE [phone] ([phone])Ordered By: Computer Specialist on 10-05-2017 Prostate specific Ag mass conc 4.2 ng/mL Abnormal 0.0-4.0 [facility] Work Phone: Comment on above: Roseanna ECLIA methodol ogy. .According to the [place] [employer], Serum PSA shoulddecrease and remain [...] blood from 07/29/17; PATIENT NOT FASTINGPERFORMED BY: [employer] [id number] PSA Free mass conc 0.52 ng/mL Normal [facility] Internal [facility] Work Phone: Comment on above: Roseanna ECLIA methodol ogy. add to blood from 07/29/17; PATIENT NOT FASTINGPERFORMED BY: [employer] [place] [id number] PSA Free/Prostate specific Ag.total mass fraction 12.4 % Normal [facility] Internal Medicine Work Phone: Comment on [...] blood from 07/29/17; PATIENT NOT FASTINGPERFORMED BY: [employer] [place] [id number] CBC W/Diff, AutomatedOrdered By: Computer Specialist on 07-30-2017 Absolute Neut 6.1 {X10_3/uL} Normal 2.0-7.7 Compreh ensive Internal Medicine Work Phone: Comment on above: [facility] [address] [place], [address] Basophils/100 WBC (Bld) 0.3 % Normal 0-1 [facility] Work Phone: Comment on above: [facility] [address] [place], [address] Eosinophils/100 WBC (Bld) 1.7 % Normal 0-5 [facility] Work Phone: Comment on above: [facility] [address] [place], [address] Erythrocyte distribution width Ratio (RBC) 13.3 % Normal 11.6-14.6 [facility] Work Phone: Comment on above: [facility] [address] [place], [address] Hematocrit Volume Fraction (Bld) 44.0 % Normal 40-54 [facility] Work Phone: Comment on above: [facility] [address] [place], [address] Hemoglobin mass conc (Bld) 14.4 g/dL Normal 13.0-16.5 [facility] Work Phone: Comment on above: [facility] [address] [place], [address] IM GRAN % 0.300 % Normal 0.0-0.9 [facility] Work Phone: Comment on above: IG% - Immature Granu locytes (promyelocytes, myelocytes andmetamyelocytes) > 1% indicates that a LEFT SHIFT is Present. [facility] [address] [place], [place], [phone] Lymphocytes #/vol (Bld) 1.71 {X10_3/ul} Normal 0.83-4.51 [facility] Work Phone: Comment on above: [facility] [address] [place], [address] Lymphocytes/100 WBC (Bld) 19.1 % Normal 19-41 [facility] Work Phone: Comment on above: [facility] [address] [place], [address] MCH Entitic mass (RBC) 29.9 pg Normal 27.0-32.0 [facility] Work Phone: Comment on above: [facility] [address] [place], [address] MCHC mass conc (RBC) 32.7 {g/gl} Normal 32-36 [facility] prehensive Internal Medicine Work Phone: Comment on above: [facility] [address] [place], [address] MCV Entitic volume (RBC) 91.5 fL Normal 80-94 [facility] Work Phone: Comment on above: [facility] [address] [place], [address] Monocytes/100 WBC (Bld) 10.7 % Abnormal 0-10 [facility] Work Phone: Comment on above: [facility] [address] [place], [address] Neutrophils/100 WBC (Bld) 67.9 % Normal 47-70 [facility] Internal Medicine Work Phone: Comment on above: [facility] [address] [place], [address] Platelet mean volume Entitic volume (Bld) 11.5 fL Normal 6.2-12.0 [facility] Internal Medicine Work Phone: Comment on above: [facility] [address] [place], [address] Platelets #/vol (Bld) 176 10*3/uL Normal 150-450 [facility] Work Phone: Comment on above: [facility] [address] [place], [place], [phone] RBC #/vol (Bld) 4.81 {M/mm3} Normal 4.6-6.2 Compreh ensive Internal Medicine Work Phone: Comment on above: [facility] [address] [place], [place], [phone] RDW SD 44.3 fL Abnormal 35.1-43.9 [facility] Work Phone: Comment on above: [facility] [address] [place], [place], [phone] WBC #/vol (Bld) 9.0 10*3/uL Normal 4.4-11.0 Comprehe nsive Internal Medicine Work Phone: Comment on above: [facility] [address] [place], [place], [address] Comprehensive Metabolic Prof ilOrdered By: Computer Specialist on 07-30-2017 Comprehensive metabolic 2000 panel 0.60 mg/dL Normal 0.20-1.00 Comprehensi ve Internal Medicine Work Phone: Comment on above: [facility] [address] [place], [place], [phone] Comprehensive metabolic 2000 panel 1.0 {RATIO} Normal 0.9-2.4 Comprehensi ve Internal Medicine Work Phone: Comment on above: [facility] [address] [place], [place], [address] Comprehensive metabolic 2000 panel 8 1 Normal 5-15 Comprehensi ve Internal Medicine Work Phone: Comment on above: [facility] [address] [place], [place], [phone] Comprehensive metabolic 2000 panel 8.5 mg/dL Normal 8.5-10.1 Comprehensi ve Internal Medicine Work Phone: Comment on above: [facility] [address] [place], [place], [phone] Comprehensive metabolic 2000 panel 89 U/L Normal 45-117 Comprehensi ve Internal Medicine Work Phone: Comment on above: [facility] [address] [place], [place], [address] Comprehensive metabolic 2000 panel 45 U/L Normal 12-78 Comprehensi ve Internal Medicine Work Phone: Comment on above: [facility] [address] [place], [place], [address] Comprehensive metabolic 2000 panel 3.7 g/dL Normal 2.2-4.2 Comprehensi ve Internal Medicine Work Phone: Comment on above: Please note revised Albumin AND Globulin reference rangeeffective 2017. [facility] [address] [place], [place], [address] Comprehensive metabolic 2000 panel 29.0 mmol/L Normal 21.0-32.0 Comprehensi ve Internal Medicine Work Phone: Comment on above: [facility] [address] [place], [place], [address] Comprehensive metabolic 2000 panel 1.14 mg/dL Normal 0.70-1.30 Comprehensi ve Internal Medicine Work Phone: Comment on above: The validity of the calculated GFR AND GFRAA in patients over70 years has not been determined. Clinical correlation isessential. [facility] [address] [place], [place], [address] Comprehensive metabolic 2000 panel 141 mmol/L Normal 136-145 Comprehensi ve Internal Medicine Work Phone: Comment on above: [facility] [address] [place], [address] Comprehensive metabolic 2000 panel 69 mL/min Normal Comprehensi ve Internal Medicine Work Phone: Comment on above: Non- GFR Calc [facility] [address] [place], [place], [address] Comprehensive metabolic 2000 panel 17 mg/dL Normal 7-18 Comprehensi ve Internal Medicine Work Phone: Comment on above: [facility] [address] [place], [place], [phone] Comprehensive metabolic 2000 panel 28 U/L Normal 15-37 Comprehensi ve Internal Medicine Work Phone: Comment on above: [facility] [address] [place], [place], [address] Comprehensive metabolic 2000 panel 104 mmol/L Normal 98-107 Comprehensi ve Internal Medicine Work Phone: Comment on above: [facility] [address] [place], [place], [phone] Comprehensive metabolic 2000 panel 4.7 mmol/L Normal 3.5-5.1 Comprehensi ve Internal Medicine Work Phone: Comment on above: [facility] [address] [place], [place], [address] Comprehensive metabolic 2000 panel 97 mg/dL Normal 70-110 Comprehensi ve Internal Medicine Work Phone: Comment on above: [facility] [address] [place], [address] Comprehensive metabolic 2000 panel 83 mL/min Normal Comprehensi ve Internal Medicine Work Phone: Comment on above: GFR Calc [facility] [address] [place], [place], [address] Comprehensive metabolic 2000 panel 14.9 {RATIO} Normal 10-20 Comprehensi ve Internal Medicine Work Phone: Comment on above: [facility] [address] [place], [place], [address] Comprehensive metabolic 2000 panel 7.4 g/dL Normal 6.4-8.2 Comprehensi ve Internal Medicine Work Phone: Comment on above: [facility] [address] [place], [place], [address] Hemoglobin X4jZrozlmr By: Sy stem Trimmer Sawyer on 07-30-2017 Hemoglobin A1c/Hemoglobin.total mass fraction (Bld) 5.6 % Normal 4.2-6.3 Comprehensiv e Internal Medicine Work Phone: Comment on above: [facility] [address] [place], [place], [address] Lipid ProfileOrdered By: Zachariah tem Trimmer Sawyer on 07-30-2017 Cholesterol in HDL mass conc 41 mg/dL Normal [facility] Work Phone: Comment on above: The drugs N-Acetylcy steine and Metamizole may falselydepress this assay. Reference Range HDL <40 mg/dL Low HDL Cholesterol HDL >or= 60 mg/dL High HDL Cholesterol [facility] [address] [place], [place], [address] Cholesterol in LDL mass conc 92 mg/dL Normal 0-130 [facility] Work Phone: Comment on above: [facility] [address] [place], [place], [phone] Cholesterol in VLDL mass conc 22 mg/dL Normal 5-40 [facility] Work Phone: Comment on above: [facility] [address] [place], [place], [phone] Cholesterol mass conc 155 mg/dL Normal [facility] Work Phone: Comment on above: <200 mg/dL Desirable 200-240 mg/dL Borderline >240 mg/dL High Risk [facility] [address] [place], [place], [phone] Triglyceride mass conc 109 mg/dL Normal [facility] Work Phone: Comment on above: The drugs N-Acetylcy steine and Metamizole may falselydepress this assay.Serum Triglycerides Reference Interval Normal <150 mg/dL Borderline high 150 - 199 mg/dL High 200 - 499 mg/dL Very High > or = 500 mg/dL [facility] [address] [place], [place], [address] MicroalbOrdered By: Katie rico on 07-30-2017 Creatinine mass conc 5.4 {mg/g_CRE} Normal [facility] Work Phone: Comment on above: [facility] [address] [place], [place], [phone] Creatinine mass conc 189.00 mg/dL Normal [facility] Work Phone: Comment on above: [facility] [address] [place], [place], [address] Microalb 10.2 mg/L Normal [facility] Work Phone: Comment on above: [place] [address] [place], [place], [phone] PSA,Total - Annual ScreenOrd ered By: Computer Specialist on 07-30-2017 Prostate specific Ag mass conc 4.40 ng/mL Abnormal 0.00-4.00 [facility] Work Phone: Comment on above: This test was perfor med using the TPSA assay method for the[employer] Top [employer] chemistry system. Values obtained with differentassay methods cannot be used interchangably.When changing PSA assays in the course of monitoring apatient, additional sequential testing should be carriedout to confirm baseline values. [place] [address] [place], [place], [phone] Thyroid Stim Hormone (TSH)Or dered By: Computer Specialist on 07-30-2017 Thyrotropin Qn 0.81 {uIU/mL} Normal 0.358-3.74 Compreh [facility] Internal Medicine Work Phone: Comment on above: [facility] [address] [place], [place], [phone] Urinalysis, Routine (Dipstic k)Ordered By: Computer Specialist on 07-30-2017 Clarity Nom (U) Clear Normal Comprehen sive Internal Medicine Work Phone: Comment on above: How was Urine Obtain ed? [facility] [address] [place], [address] Color Nom (U) Yellow Normal Comprehensi ve Internal Medicine Work Phone: Comment on above: How was Urine Obtain ed? [facility] [address] [place], [address] Urinalysis, Routine (Dipstick) Normal Normal [facility] Work Phone: Comment on above: How was Urine Obtain ed? [facility] [address] [place], [address] Urinalysis, Routine (Dipstick) Negative Normal [facility] Work Phone: Comment on above: How was Urine Obtain ed? [facility] [address] [place], [address] Urinalysis, Routine (Dipstick) 6.0 1 Normal 5.0 - 8.0 [facility] Work Phone: Comment on above: How was Urine Obtain ed? [facility] [address] [place], [address] Urinalysis, Routine (Dipstick) 1.020 1 Normal 1.002-1.03 0 [facility] Work Phone: Comment on above: How was Urine Obtain ed? [facility] [address] [place], [address] Urinalysis, Routine (Dipstick) 100 /ul Abnormal [facility] Work Phone: Comment on above: How was Urine Obtain ed? [facility] [address] [place], [address] Vitamin D,25 HydroxyOrdered By: Computer Specialist on 07-30-2017 Vitamin D,25 Hydroxy 48.2 ng/mL Normal Comp rehensive Internal Medicine Work Phone: Comment on above: Vitamin D 25([place]) Sta tus Range Deficiency <20 ng/mL (50nmol/L) Insuffciency 20 - 30 ng/mL (50 - 75 nmol/L) Sufficiency 30 - 100 ng/mL (75 - 250 nmol/L) Toxicity >100 ng/mL (>250 nmol/L) [facility] [address] [place], [phone] Blood Glucose , Office ([phone])Ordered By: Pastora Marino on 11-24-2016 Glucose Glucometer molar conc (BldC) 103 1 Normal [facility] Work Phone: HgA1C , Office ([phone])Ordere d By: Pastora Marino on 11-24-2016 Hemoglobin A1c/Hemoglobin.total mass fraction (Bld) 5.5 % Normal 4.6 - 7.1 Comprehensiv e Internal Medicine Work Phone: CBC W/Diff, AutomatedOrdered By: Computer Specialist on 11-13-2016 Absolute Neut 5.7 {X10_3/uL} Normal 2.0-7.7 Compreh ensive Internal Medicine Work Phone: Comment on above: [facility] [address] [place], [address] Basophils/100 WBC (Bld) 0.5 % Normal 0-1 [facility] Work Phone: Comment on above: [facility] [address] [place], [address] Eosinophils/100 WBC (Bld) 1.8 % Normal 0-5 [facility] Work Phone: Comment on above: [facility] [address] [place], [place], [phone] Erythrocyte distribution width Ratio (RBC) 13.3 % Normal 11.6-14.6 [facility] Work Phone: Comment on above: [facility] [address] [place], [address] Hematocrit Volume Fraction (Bld) 42.8 % Normal 40-54 [facility] Work Phone: Comment on above: [facility] [address] [place], [address] Hemoglobin mass conc (Bld) 14.6 g/dL Normal 13.0-16.5 [facility] Work Phone: Comment on above: [facility] [address] [place], [address] IM GRAN % 0.700 % Normal 0.0-0.9 [facility] Work Phone: Comment on above: IG% - Immature Granu locytes (promyelocytes, myelocytes andmetamyelocytes) > 1% indicates that a LEFT SHIFT is Present. [facility] [address] [place], [address] Lymphocytes #/vol (Bld) 1.90 {X10_3/ul} Normal 0.83-4.51 [facility] Work Phone: Comment on above: [facility] [address] [place], [address] Lymphocytes/100 WBC (Bld) 22.2 % Normal 19-41 [facility] Work Phone: Comment on above: [facility] [address] [place], [address] MCH Entitic mass (RBC) 30.7 pg Normal 27.0-32.0 [facility] Work Phone: Comment on above: [facility] [address] [place], [address] MCHC mass conc (RBC) 34.1 {g/gl} Normal 32-36 [facility] prehensive Internal Medicine Work Phone: Comment on above: [facility] [address] [place], [place], [address] MCV Entitic volume (RBC) 89.9 fL Normal 80-94 [facility] Work Phone: Comment on above: [facility] [address] [place], [address] Monocytes/100 WBC (Bld) 9.0 % Normal 0-10 [facility] Work Phone: Comment on above: [facility] [address] [place], [address] Neutrophils/100 WBC (Bld) 65.8 % Normal 47-70 [facility] Work Phone: Comment on above: [facility] [address] [place], [place], [phone] Platelet mean volume Entitic volume (Bld) 11.9 fL Normal 6.2-12.0 Comprehensi Internal Medicine Work Phone: Comment on above: [facility] [address] [place], [address] Platelets #/vol (Bld) 175 10*3/uL Normal 150-450 [facility] Work Phone: Comment on above: [facility] [address] [place], [address] RBC #/vol (Bld) 4.76 {M/mm3} Normal 4.6-6.2 Compreh ensive Internal Medicine Work Phone: Comment on above: [facility] [address] [place], [address] RDW SD 43.1 fL Normal 35.1-43.9 [facility] Work Phone: Comment on above: [facility] [address] [place], [address] WBC #/vol (Bld) 8.6 10*3/uL Normal 4.4-11.0 Comprehe nsive Internal Medicine Work Phone: Comment on above: [facility] [address] [place], [place], [phone] Comprehensive Metabolic Prof ilOrdered By: Computer Specialist on 11-13-2016 Comprehensive metabolic 2000 panel 0.60 mg/dL Normal 0.20-1.00 Comprehensi ve Internal Medicine Work Phone: Comment on above: [facility] [address] [place], [place], [address] Comprehensive metabolic 2000 panel 89 mg/dL Normal 70-110 Comprehensi ve Internal Medicine Work Phone: Comment on above: [facility] [address] [place], [place], [address] Comprehensive metabolic 2000 panel 20 mg/dL Abnormal 7-18 Comprehensi ve Internal Medicine Work Phone: Comment on above: [facility] [address] [place], [place], [phone] Comprehensive metabolic 2000 panel 4.1 mmol/L Normal 3.5-5.1 Comprehensi ve Internal Medicine Work Phone: Comment on above: [facility] [address] [place], [place], [address] Comprehensive metabolic 2000 panel 139 mmol/L Normal 136-145 Comprehensi ve Internal Medicine Work Phone: Comment on above: [facility] [address] [place], [place], [address] Comprehensive metabolic 2000 panel 27.0 mmol/L Normal 21.0-32.0 Comprehensi ve Internal Medicine Work Phone: Comment on above: [facility] [address] [place], [place], [phone] Comprehensive metabolic 2000 panel 8 1 Normal 5-15 Comprehensi ve Internal Medicine Work Phone: Comment on above: [facility] [address] [place], [place], [phone] Comprehensive metabolic 2000 panel 1.06 mg/dL Normal 0.70-1.30 Comprehensi ve Internal Medicine Work Phone: Comment on above: The validity of the calculated GFR AND GFRAA in patients over70 years has not been determined. Clinical correlation isessential. [facility] [address] [place], [address] Comprehensive metabolic 2000 panel 75 mL/min Normal Comprehensi ve Internal Medicine Work Phone: Comment on above: Non- GFR Calc [facility] [address] [place], [place], [address] Comprehensive metabolic 2000 panel 3.4 g/dL Normal 2.3-3.5 Comprehensi ve Internal Medicine Work Phone: Comment on above: [facility] [address] [place], [place], [address] Comprehensive metabolic 2000 panel 104 mmol/L Normal 98-107 Comprehensi ve Internal Medicine Work Phone: Comment on above: [facility] [address] [place], [place], [address] Comprehensive metabolic 2000 panel 91 mL/min Normal Comprehensi ve Internal Medicine Work Phone: Comment on above: GFR Calc [facility] [address] [place], [place], [address] Comprehensive metabolic 2000 panel 18.9 {RATIO} Normal 10-20 Comprehensi ve Internal Medicine Work Phone: Comment on above: [facility] [address] [place], [place], [address] Comprehensive metabolic 2000 panel 3.7 g/dL Normal 3.4-5.0 Comprehensi ve Internal Medicine Work Phone: Comment on above: [facility] [address] [place], [address] Comprehensive metabolic 2000 panel 1.1 {RATIO} Normal 0.9-2.4 Comprehensi ve Internal Medicine Work Phone: Comment on above: [facility] [address] [place], [place], [phone] Comprehensive metabolic 2000 panel 22 U/L Normal 15-37 Comprehensi ve Internal Medicine Work Phone: Comment on above: [facility] [address] [place], [place], [address] Comprehensive metabolic 2000 panel 79 U/L Normal 45-117 Comprehensi ve Internal Medicine Work Phone: Comment on above: [facility] [address] [place], [place], [phone] Comprehensive metabolic 2000 panel 7.1 g/dL Normal 6.4-8.2 Comprehensi ve Internal Medicine Work Phone: Comment on above: [facility] [address] [place], [place], [phone] Comprehensive metabolic 2000 panel 26 U/L Normal 12-78 Comprehensi ve Internal Medicine Work Phone: Comment on above: [facility] [address] [place], [place], [address] Comprehensive metabolic 2000 panel 8.4 mg/dL Abnormal 8.5-10.1 Comprehensi ve Internal Medicine Work Phone: Comment on above: [facility] [address] [place], [place], [address] Lipid ProfileOrdered By: Holly tem Trimmer Sawyer on 11-13-2016 Cholesterol in HDL mass conc 38 mg/dL Abnormal [facility] Work Phone: Comment on above: The drugs N-Acetylcy steine and Metamizole may falsely deressthis assay. Reference Range HDL <40 mg/dL Low HDL Cholesterol HDL >or= 60 mg/dL High HDL Cholesterol [facility] [address] [place], [place], [phone] Cholesterol in LDL mass conc 75 mg/dL Normal 0-130 [facility] Work Phone: Comment on above: [facility] [address] [place] [place], [place], [phone] Cholesterol in VLDL mass conc 21 mg/dL Normal 5-40 [facility] Work Phone: Comment on above: [facility] [address] [place], [place], [id number] Cholesterol mass conc 134 mg/dL Normal [facility] Work Phone: Comment on above: <200 mg/dL Desirable 200-240 mg/dL Borderline >240 mg/dL High Risk [facility] [address] [place], [place], [id number] Triglyceride mass conc 105 mg/dL Normal [facility] Work Phone: Comment on above: The drugs N-Acetylcy steine and Metamizole may falsely deressthis assay.Serum Triglycerides Reference Interval Normal <150 mg/dL Borderline high 150 - 199 mg/dL High 200 - 499 mg/dL Very High > or = 500 mg/dL [facility] [address] [place], [place], [phone] MicroalbOrdered By: Katie rico on 11-13-2016 Creatinine mass conc Test not performed Normal [facility] Work Phone: Comment on above: [facility] [address] [place], [place], [id number] Creatinine mass conc 49.40 mg/dL Normal [facility] prehensive Internal Medicine Work Phone: Comment on above: [facility] [address] [place], [place], [phone] Microalb < 5.0 Normal [facility] Work Phone: Comment on above: [facility] [address] [place], [place], [address] Thyroid Stim Hormone (TSH)Or dered By: Computer Specialist on 11-13-2016 Thyrotropin Qn 1.05 {uIU/mL} Normal 0.358-3.74 Compreh ensive Internal Medicine Work Phone: Comment on above: [facility] Dtsdfrjkly[address] [place], [phone] Urinalysis, CompleteOrdered By: Computer Specialist on 11-13-2016 Protein mass conc (U) Negative Normal [facility] Work Phone: Comment on above: How was Urine Obtain ed? [facility] Xxf[address]obqdn[address] [place], [id number] RBC #/vol (U) 0 SEEN Normal 0-5 Comprehensi ve Internal Medicine Work Phone: Comment on above: How was Urine Obtain ed? [facility] Rualdxxpee[address] [place], [place], [address] Urinalysis complete panel - Urine 0 SEEN Normal [facility] Work Phone: Comment on above: How was Urine Obtain ed? [facility] Hbcyhqvkcd[address] [place], [place], [phone] Urinalysis complete panel - Urine RARE Normal [facility] Work Phone: Comment on above: How was Urine Obtain ed? [facility] Icbfgvvttc[address] [place], [place], [phone] Urinalysis complete panel - Urine 0-5 SEEN Normal 0-5 [facility] Work Phone: Comment on above: How was Urine Obtain ed? [facility] Fcxsopghgf[address] [place], [place], [phone] Urinalysis complete panel - Urine Clear Normal [facility] Work Phone: Comment on above: How was Urine Obtain ed? [facility] Clq[address]furxj[address] [place], [address] Urinalysis complete panel - Urine 25 /ul Abnormal [facility] Work Phone: Comment on above: How was Urine Obtain ed? [facility] Gquttetxcd[address] [place], [address] Urinalysis complete panel - Urine Negative Normal [facility] Work Phone: Comment on above: How was Urine Obtain ed? [facility] Y[address]st[address] [place], [address] Urinalysis complete panel - Urine Normal Normal [facility] Work Phone: Comment on above: How was Urine Obtain ed? [facility] P[address]ckzidak[address] [place], [address] Urinalysis complete panel - Urine 6.0 1 Normal 5.0 - 8.0 [facility] Work Phone: Comment on above: How was Urine Obtain ed? [facility] Mcicdyinls[address] [place], [address] Urinalysis complete panel - Urine Yellow Normal [facility] Work Phone: Comment on above: How was Urine Obtain ed? [facility] Kl[address] [place], [address] Urinalysis complete panel - Urine 1.010 1 Normal 1.002-1.03 0 [facility] Work Phone: Comment on above: How was Urine Obtain ed? [facility] Cylmvypgnn[address] [place], [id number] Vitamin D,25 HydroxyOrdered By: Computer Specialist on 11-13-2016 Vitamin D,25 Hydroxy 25.4 ng/mL Normal Comp rehensive Internal Medicine Work Phone: Comment on above: Vitamin D 25(OH) Sta tus Range Deficiency <20 ng/mL (50nmol/L) Insuffciency 20 - 30 ng/mL (50 - 75 nmol/L) Sufficiency 30 - 100 ng/mL (75 - 250 nmol/L) Toxicity >100 ng/mL (>250 nmol/L) [facility] [address] [place], [address] Blood Glucose , Office ([phone])Ordered By: Pastora Marino on 07-21-2016 Glucose Glucometer molar conc (BldC) 97 1 Normal [facility] Work Phone: HgA1C , Office ([phone])Ordere d By: Pastora aMrino on 07-21-2016 Hemoglobin A1c/Hemoglobin.total mass fraction (Bld) 5.3 % Normal 4.6 - 7.1 Comprehensiv e Internal Medicine Work Phone: Fecal Occult Blood , Office ([phone])Ordered By: Tonny Fontenot on 04-09-2016 Hemoglobin.gastroint estinal Ql (St) Negative Normal [facility] Work Phone: Hemoglobin.gastroint estinal Ql (Stl) Negative Normal [facility]; [facility] Work Phone: Blood Glucose , Office ([phone])Ordered By: Pastora Marino on 03-19-2016 Glucose Glucometer molar conc (BldC) 82 1 Normal [facility] Work Phone: CALCIFIDIOL ([phone]) VIT D 25 Ordered By: Computer Specialist on 03-19-2016 25-Hydroxyvitamin D2+25-Hydroxyvitamin D3 mass conc 33.3 ng/mL Normal 30.0-100.0 [facility] Work Phone: Comment on above: Vitamin D deficiency has been defined by the [place] ofMedicine and an Endocrine Society practice guideline as alevel of serum 25-OH vitamin D less than 20 ng/mL (1,2).The Endocrine Society went on to further define vitamin Dinsufficiency as a level between 21 and 29 ng/mL (2).1. IOM ([place] of Medicine). 2010. Dietary reference intakes for calcium and D. [place]: The National Academies Press.2. Rayna UGARTE, Ana Lusia HASSAN, Dominick-Shiv CUBA, et al. Evaluation, treatment, and prevention of vitamin D deficiency: an Endocrine Society clinical practice guideline. JCEM. 2010; 96(7):1911-30. PATIENT WAS FASTINGP ERFORMED BY: [facility]6370 [facility] [id number] CBC W/AUTO DIFF WBC ([id number])O rdered By: Computer Specialist on 03-19-2016 Basophils #/vol (Bld) 0.1 {x10E3/uL} Normal 0.0-0.2 [facility] Work Phone: Comment on above: PATIENT WAS FASTINGP ERFORMED BY: [facility]6370 [facility] [id number] Information: [id number] Basophils (Bld) [#/Vol] 0.1 10*3/uL Normal 0.0-0.2 [facility]; [facility] Work Phone: Comment on above: PATIENT WAS FASTINGP ERFORMED BY: [facility]6370 [facility] [id number] Information: [id number] Basophils/100 WBC (Bld) 1 % Normal [facility] Work Phone: Comment on above: PATIENT WAS FASTINGP ERFORMED BY: [facility]6370 [facility] [id number] Information: [id number] Eosinophils #/vol (Bld) 0.2 {x10E3/uL} Normal 0.0-0.4 [facility] Work Phone: Comment on above: PATIENT WAS FASTINGP ERFORMED BY: [facility]6370 [facility] [id number] Information: [id number] Eosinophils (Bld) [#/Vol] 0.2 10*3/uL Normal 0.0-0.4 [facility]; [facility] Work Phone: Comment on above: PATIENT WAS FASTINGP ERFORMED BY: [facility]6370 [facility] [id number] Information: [id number] Eosinophils/100 WBC (Bld) 2 % Normal [facility] Work Phone: Comment on above: PATIENT WAS FASTINGP ERFORMED BY: [place] [address]70 [facility] [id number] Information: [id number] Erythrocyte distribution width Ratio (RBC) 13.8 % Normal 12.3-15.4 [facility] Work Phone: Comment on above: PATIENT WAS FASTINGP ERFORMED BY: [address] [id number] Information: [id number] Hematocrit Volume Fraction (Bld) 44.8 % Normal 37.5-51.0 [facility] Work Phone: Comment on above: PATIENT WAS FASTINGP ERFORMED BY: [address] [id number] Information: [id number] Hemoglobin mass conc (Bld) 15.0 g/dL Normal 12.6-17.7 [facility] Work Phone: Comment on above: PATIENT WAS FASTINGP ERFORMED BY: [place] 6575470 [facility] [id number] Information: [id number] Immature granulocytes #/vol (Bld) 0.0 {x10E3/uL} Normal 0.0-0.1 [facility] Work Phone: Comment on above: PATIENT WAS FASTINGP ERFORMED BY: [place] 6575470 [facility] [id number] Information: [id number] Immature granulocytes (Bld) [#/Vol] 0.0 10*3/uL Normal 0.0-0.1 [facility]; [facility] Work Phone: Comment on above: PATIENT WAS FASTINGP ERFORMED BY: [address] [id number] Information: [id number] Immature granulocytes/100 WBC (Bld) 0 % Normal [facility] Work Phone: Comment on above: PATIENT WAS FASTINGP ERFORMED BY: [place] [address]75470 [facility] [id number] Information: [id number] Lymphocytes #/vol (Bld) 2.6 {x10E3/uL} Normal 0.7-3.1 [facility] Work Phone: Comment on above: PATIENT WAS FASTINGP ERFORMED BY: [address] [id number] Information: [id number] Lymphocytes (Bld) [#/Vol] 2.6 10*3/uL Normal 0.7-3.1 [facility]; [facility] Work Phone: Comment on above: PATIENT WAS FASTINGP ERFORMED BY: [address] [id number] Information: [id number] Lymphocytes/100 WBC (Bld) 23 % Normal [facility] Work Phone: Comment on above: PATIENT WAS FASTINGP ERFORMED BY: [address] [id number] Information: [id number] MCH Entitic mass (RBC) 30.4 pg Normal 26.6-33.0 [facility] Work Phone: Comment on above: PATIENT WAS FASTINGP ERFORMED BY: [place] [address]75470 [facility] [id number] Information: [id number] MCHC mass conc (RBC) 33.5 g/dL Normal 31.5-35.7 [facility] Internal Medicine Work Phone: Comment on above: PATIENT WAS FASTINGP ERFORMED BY: [address] [id number] Information: [id number] MCV Entitic volume (RBC) 91 fL Normal 79-97 [facility] Work Phone: Comment on above: PATIENT WAS FASTINGP ERFORMED BY: [place] 3656970 [facility] [id number] Information: [id number] Monocytes #/vol (Bld) 1.0 {x10E3/uL} Abnormal 0.1-0.9 [facility] Work Phone: Comment on above: PATIENT WAS FASTINGP ERFORMED BY: [address] [id number] Information: [id number] Monocytes (Bld) [#/Vol] 1.0 10*3/uL Abnormal 0.1-0.9 [facility]; [facility] Work Phone: Comment on above: PATIENT WAS FASTINGP ERFORMED BY: [address] [id number] Information: [id number] Monocytes/100 WBC (Bld) 9 % Normal [facility] Work Phone: Comment on above: PATIENT WAS FASTINGP ERFORMED BY: [address] [id number] Information: [id number] Neutrophils #/vol (Bld) 7.3 {x10E3/uL} Abnormal 1.4-7.0 [facility] Work Phone: Comment on above: PATIENT WAS FASTINGP ERFORMED BY: [address] [id number] Information: [id number] Neutrophils (Bld) [#/Vol] 7.3 10*3/uL Abnormal 1.4-7.0 [facility]; [facility] Work Phone: Comment on above: PATIENT WAS FASTINGP ERFORMED BY: [address] [id number] Information: [id number] Neutrophils/100 WBC (Bld) 65 % Normal [facility] Work Phone: Comment on above: PATIENT WAS FASTINGP ERFORMED BY: CAROLA [employer]6370 [facility] [id number] Information: [id number] Platelets #/vol (Bld) 176 {x10E3/uL} Normal 150-379 [facility] Work Phone: Comment on above: PATIENT WAS FASTINGP ERFORMED BY: [facility]6370 [facility] [id number] Information: [id number] Platelets (Bld) [#/Vol] 176 10*3/uL Normal 150-379 [facility]; [facility] Work Phone: Comment on above: PATIENT WAS FASTINGP ERFORMED BY: [facility] Dncdhv8762 [facility] [id number] Information: [id number] RBC #/vol (Bld) 4.94 {x10E6/uL} Normal 4.14-5.80 [facility] Work Phone: Comment on above: PATIENT WAS FASTINGP ERFORMED BY: CAROLA Leticia Bilowm1564 [facility] [id number] Information: [id number] RBC (Bld) [#/Vol] 4.94 10*6/uL Normal 4.14-5.80 Compr ehensive Internal Medicine; [facility] Work Phone: Comment on above: PATIENT WAS FASTINGP ERFORMED BY: [facility]6370 [facility] [id number] Information: [id number] WBC #/vol (Bld) 11.3 {x10E3/uL} Abnormal 3.4-10.8 [facility] Work Phone: Comment on above: PATIENT WAS FASTINGP ERFORMED BY: [facility]6370 [facility] [id number] Information: [id number] WBC (Bld) [#/Vol] 11.3 10*3/uL Abnormal 3.4-10.8 Compr ensive Internal Medicine; [facility] Work Phone: Comment on above: PATIENT WAS FASTINGP ERFORMED BY: [employer]6370 [facility] [id number] Information: [id number] HgA1C , Office (80973)Ordere d By: Pastora Marino on 03-19-2016 Hemoglobin A1c/Hemoglobin.total mass fraction (Bld) 5.5 % Normal 4.6 - 7.1 Comprehensiv e Internal Medicine Work Phone: LIPID PANEL ([id number])Ordered B y: Computer Specialist on 03-19-2016 Cholesterol in HDL mass conc 35 mg/dL Abnormal [facility] Work Phone: Comment on above: According to ATP-III Guidelines, HDL-C >59 mg/dL is considered anegative risk factor for CHD. PATIENT WAS FASTINGP ERFORMED BY: [employer]6370 [facility] [id number] Cholesterol in LDL mass conc 86 mg/dL Normal 0-99 [facility] Work Phone: Comment on above: PATIENT WAS FASTINGP ERFORMED BY: [employer]6370 [facility] [id number] Cholesterol in LDL/Cholesterol in HDL mass ratio 2.5 {ratio_units} Normal 0.0-3.6 [facility] Work Phone: Comment on above: LDL/HDL Ratio Men Wo men 1/2 Avg.Risk 1.0 1.5 Avg.Risk 3.6 3.2 2X Avg.Risk 6.2 5.0 3X Avg.Risk 8.0 6.1 PATIENT WAS FASTINGP ERFORMED BY: [employer]6370 [facility] [id number] Cholesterol in VLDL mass conc 35 mg/dL Normal 5-40 [facility] Work Phone: Comment on above: PATIENT WAS FASTINGP ERFORMED BY: CAROLA Leticia Ojexel[address] [facility] [place] [id number] Cholesterol mass conc 156 mg/dL Normal 100-199 [facility] Work Phone: Comment on above: PATIENT WAS FASTINGP ERFORMED BY: Lab[facility] Crvewl9631 [facility] [id number] Triglyceride mass conc 175 mg/dL Abnormal 0-149 [facility] Work Phone: Comment on above: PATIENT WAS FASTINGP ERFORMED BY: [facility] Anumpc6918 [facility] [id number] METABOLIC PANEL, COMPREHENSI VE ([id number])Ordered By: Computer Specialist on 03-19-2016 Albumin mass conc 4.5 g/dL Normal 3.6-4.8 Compreh ensive Internal Medicine Work Phone: Comment on above: PATIENT WAS FASTINGP ERFORMED BY: [facility] Ynojzy8421 [facility] [id number] Albumin/Globulin mass ratio 1.8 {ratio} Normal 1.1-2.5 [facility] Work Phone: Comment on above: PATIENT WAS FASTINGP ERFORMED BY: [facility] Vwxcso4385 [facility] [id number] ALP [Catalytic activity/Vol] 86 U/L Normal 39-117 [facility]; [facility] Work Phone: Comment on above: PATIENT WAS FASTINGP ERFORMED BY: [facility] Odmvpv6799 [facility] [id number] ALP enzyme act/vol 86 [iU]/L Normal 39-117 Compre hensive Internal Medicine Work Phone: Comment on above: PATIENT WAS FASTINGP ERFORMED BY: [facility] Yxnrhq1523 [facility] [id number] ALT [Catalytic activity/Vol] 17 U/L Normal 0-44 [facility]; [facility] Work Phone: Comment on above: PATIENT WAS FASTINGP ERFORMED BY: [facility] Ezakka[address] RoadDublin [place] [id number] ALT enzyme act/vol 17 [iU]/L Normal 0-44 [facility] Internal Medicine Work Phone: Comment on above: PATIENT WAS FASTINGP ERFORMED BY: CAROLA [facility] Rbisgu0423 [address] RoadDublin [place] [id number] AST [Catalytic activity/Vol] 18 U/L Normal 0-40 [facility]; [facility] Work Phone: Comment on above: PATIENT WAS FASTINGP ERFORMED BY: CAROLA [facility] Mjyosh0069 [address] RoadDublin [place] [id number] AST enzyme act/vol 18 [iU]/L Normal 0-40 [facility] Internal Medicine Work Phone: Comment on above: PATIENT WAS FASTINGP ERFORMED BY: CAROLA [facility] Dhrkzi2380 [address] RoadDublin [place] [id number] Bilirubin mass conc 0.5 mg/dL Normal 0.0-1.2 Compr ensive Internal Medicine Work Phone: Comment on above: PATIENT WAS FASTINGP ERFORMED BY: CAROLA [facility] Cucmze3105 [address] RoadDublin [place] [id number] Calcium mass conc 9.0 mg/dL Normal 8.6-10.2 [facility] Work Phone: Comment on above: PATIENT WAS FASTINGP ERFORMED BY: CAROLA [facility] Vqdqhe6553 [address] RoadDublin [place] [id number] Chloride molar conc 102 mmol/L Normal 97-108 Compr ensive Internal Medicine Work Phone: Comment on above: PATIENT WAS FASTINGP ERFORMED BY: CAROLA [facility] Ndtpxf1602 [address] RoadDublin [place] [id number] CO2 molar conc 20 mmol/L Normal 18-29 Comprehens damien Internal Medicine Work Phone: Comment on above: PATIENT WAS FASTINGP ERFORMED BY: CAROLA [facility] Nurdei9037 [address] RoadDublin [place] [id number] Creatinine mass conc 1.00 mg/dL Normal 0.76-1.27 Comp [facility] Work Phone: Comment on above: PATIENT WAS FASTINGP ERFORMED BY: CB [facility] Oblluo3668 [address] RoadDublin [place] [id number] GFR/1.73 sq M predicted among blacks CKD-EPI vol rate/area (S/P/Bld) 93 mL/min/1.73 Normal Comprehensiv e Internal Medicine Work Phone: Comment on above: PATIENT WAS FASTINGP ERFORMED BY: CB [facility] Xaadwg0464 [address] RoadDublin [place] [id number] GFR/1.73 sq M predicted among non-blacks CKD-EPI vol rate/area (S/P/Bld) 80 mL/min/1.73 Normal [facility] Work Phone: Comment on above: PATIENT WAS FASTINGP ERFORMED BY: CB [facility] Imeuio6480 [address] RoadDublin [place] [id number] Globulin mass conc (S) 2.5 g/dL Normal 1.5-4.5 [facility] Work Phone: Comment on above: PATIENT WAS FASTINGP ERFORMED BY: CB [facility] Okgllh9217 [place] [facility] HealthcareDublin [place] [id number] Glucose mass conc 87 mg/dL Normal 65-99 Compreh ensive Internal Medicine Work Phone: Comment on above: PATIENT WAS FASTINGP ERFORMED BY: CB [facility] Qdrmia8479 [address] [facility]in [place] [id number] Potassium molar conc 4.2 mmol/L Normal 3.5-5.2 Comp rehensive Internal Medicine Work Phone: Comment on above: PATIENT WAS FASTINGP ERFORMED BY: CB [facility] Xcfkgd5988 [address] RoadDublin [place] [id number] Protein mass conc 7.0 g/dL Normal 6.0-8.5 Compreh ensive Internal Medicine Work Phone: Comment on above: PATIENT WAS FASTINGP ERFORMED BY: CB [facility] Xjcsos9796 [address] Roadblin [place] [id number] Sodium molar conc 143 mmol/L Normal 134-144 Compreh ensive Internal Medicine Work Phone: Comment on above: PATIENT WAS FASTINGP ERFORMED BY: [facility]A [facility] Lcchuw[address] [facility] Centerbl[facility] [place] [id number] Urea nitrogen mass conc 19 mg/dL Normal 8-27 [facility] Work Phone: Comment on above: PATIENT WAS FASTINGP ERFORMED BY: CAROLA [facility] Ynscjm0285 [address] RoadUnc Healthin [place] [id number] Urea nitrogen/Creatinine mass ratio 19 mg/mg Normal 10-22 [facility] Work Phone: Comment on above: PATIENT WAS FASTINGP ERFORMED BY: CAROLA [facility] Nltpbq1268 [address] [facility]in [place] [id number] MICROALBUMINOrdered By: Syst em Trimmer Sawyer on 03-19-2016 Albumin DL <= 20 mg/L mass conc (U) 3.4 ug/mL Normal [facility] Work Phone: Comment on above: PATIENT WAS FASTINGP ERFORMED BY: CAROLA [facility] Hbfvwi6006 [address] [facility]in [place] [id number] Albumin/Creatinine mass ratio (U) 2.2 {mg/g_creat} Normal 0.0-30.0 [facility] Work Phone: Comment on above: PATIENT WAS FASTINGP ERFORMED BY: CAROLA Averylin[address] [facility] Centerbl[facility] [place] [id number] Creatinine mass conc (U) 151.2 mg/dL Normal [facility] Work Phone: Comment on above: PATIENT WAS FASTINGP ERFORMED BY: CAROLA [facility] Uamkaa8641 [facility]in [place] [id number] Microscopic ExaminationOrder ed By: Computer Specialist on 03-19-2016 Bacteria LM.HPF #/area (Urine sed) Few Normal [facility] Work Phone: Comment on above: PATIENT WAS FASTINGP ERFORMED BY: CAROLA [facility] Xorynz7596 [address] [facility] Centerbl[facility] [place] [id number] Crystals LM Nom (Urine sed) Calcium Oxalate Normal [facility] Work Phone: Comment on above: PATIENT WAS FASTINGP ERFORMED BY: [facility] Haivzb0642 [address] [facility] Centerbl[facility] [place] [id number] Epithelial cells LM.HPF #/area (Urine sed) 0-10 Normal 0 - 10 [facility] Work Phone: Comment on above: PATIENT WAS FASTINGP ERFORMED BY: [facility] Ulrnay7236 [address] RoadDublin [place] [id number] Mucus Ql (Urine sed) Present Normal Comp rehensive Internal Medicine Work Phone: Comment on above: PATIENT WAS FASTINGP ERFORMED BY: [facility] Sttlrd4314 [address] RoadDublin [place] [id number] RBC LM.HPF #/area (Urine sed) 0-2 Normal 0 - 2 [facility] Work Phone: Comment on above: PATIENT WAS FASTINGP ERFORMED BY: [facility] Czbdzm9934 [place] [facility] HealthcareDublin [place] [id number] Unidentified crystals LM Ql (Urine sed) Present Abnormal [facility] Work Phone: Comment on above: PATIENT WAS FASTINGP ERFORMED BY: [facility] Wwcnrc1720 [address] [facility]in [place] [id number] WBC LM.HPF #/area (Urine sed) 6-10 Abnormal 0 - 5 [facility] Work Phone: Comment on above: PATIENT WAS FASTINGP ERFORMED BY: [facility] Hhvljt3158 [facility] [id number] PSA (PROSTATE SPECIFIC ANTIG EN) (V76.44)Ordered By: Computer Specialist on 03-19-2016 Prostate specific Ag mass conc 2.6 ng/mL Normal 0.0-4.0 [facility] Work Phone: Comment on above: Roseanna ECLIA methodol ogy. .According to the [place] [employer], Serum PSA shoulddecrease and remain [...] PATIENT WAS FASTINGP ERFORMED BY: CAROLA [facility] Kadljp22[address] RoadDublin [place] [id number] TSH ([id number])Ordered By: SpearFyshe m Trimmer Sawyer on 03-19-2016 Thyrotropin Qn 1.200 {uIU/mL} Normal 0.450-4.50 0 [facility] Work Phone: Comment on above: PATIENT WAS FASTINGP ERFORMED BY: [facility] Ypumqx5414 Clayton RoadDublin [place] [id number] URINALYSIS, W/ MICRO ([id number]) Ordered By: Computer Specialist on 03-19-2016 Appearance Nom (U) Clear Normal Compre hensive Internal Medicine Work Phone: Comment on above: PATIENT WAS FASTINGP ERFORMED BY: CAROLA [facility] Kucmzv1354 [address] RoadDublin [place] [id number] Bilirubin Ql (U) Negative Normal Comprehe nsive Internal Medicine Work Phone: Comment on above: PATIENT WAS FASTINGP ERFORMED BY: [facility] Plppgl9056 [address] RoadDublin [place] [id number] Bilirubin Ql (U) Negative Normal Comprehe nsive Internal Medicine; [facility] Work Phone: Comment on above: PATIENT WAS FASTINGP ERFORMED BY: [facility] Oekplf9354 [address] RoadDublin [place] [id number] Color Nom (U) Yellow Normal Comprehensi ve Internal Medicine Work Phone: Comment on above: PATIENT WAS FASTINGP ERFORMED BY: [facility] Qqomzo8956 [address] RoadDublin [place] [id number] Glucose Ql (U) Negative Normal Comprehens damien Internal Medicine Work Phone: Comment on above: PATIENT WAS FASTINGP ERFORMED BY: [facility] Jvfqlf4063 [address] RoadDublin [place] [id number] Glucose Ql (U) Negative Normal Comprehens damien Internal Medicine; [facility] Work Phone: Comment on above: PATIENT WAS FASTINGP ERFORMED BY: [facility] Fwiijj2127 [address] RoadDublin [place] [id number] Hemoglobin Ql (U) Negative Normal Compreh ensive Internal Medicine Work Phone: Comment on above: PATIENT WAS FASTINGP ERFORMED BY: CAROLA Cuevas6370 [facility] [id number] Hemoglobin Ql (U) Negative Normal Compreh ensive Internal Medicine; [facility] Work Phone: Comment on above: PATIENT WAS FASTINGP ERFORMED BY: CAROLA Cuevas6370 [facility] [id number] Ketones Ql (U) Negative Normal Comprehens damien Internal Medicine Work Phone: Comment on above: PATIENT WAS FASTINGP ERFORMED BY: CAROLA Cuevas6370 [facility] [id number] Ketones Ql (U) Negative Normal Comprehens damien Internal Medicine; [facility] Work Phone: Comment on above: PATIENT WAS FASTINGP ERFORMED BY: CAROLA Cuevas6370 [facility] [id number] Leukocyte esterase Test strip Ql (U) 1+ Abnormal [facility] Work Phone: Comment on above: PATIENT WAS FASTINGP ERFORMED BY: CAROLA Cuevas6370 [facility] [id number] Microscopic observation LM Nom (Urine sed) See below: Normal [facility] Work Phone: Comment on above: Microscopic was jayden cated and was performed. PATIENT WAS FASTINGP ERFORMED BY: CAROLA Averylin6370 [facility] [id number] Nitrite Ql (U) Negative Normal Comprehens damien [facility] Medicine Work Phone: Comment on above: PATIENT WAS FASTINGP ERFORMED BY: CAROLA Averylin6370 [facility] [id number] Nitrite Ql (U) Negative Normal Comprehens damien Internal Medicine; [facility] Work Phone: Comment on above: PATIENT WAS FASTINGP ERFORMED BY: CAROLA Averylin6370 [facility] [id number] pH (U) 6.0 [pH] Normal 5.0-7.5 [facility] Work Phone: Comment on above: PATIENT WAS FASTINGP ERFORMED BY: [facility]6370 [facility] [id number] Protein Ql (U) Negative Normal Comprehens damien Internal Medicine Work Phone: Comment on above: PATIENT WAS FASTINGP ERFORMED BY: [facility]6370 [facility] [id number] Protein Ql (U) Negative Normal Comprehens damien Internal Medicine; [facility] Work Phone: Comment on above: PATIENT WAS FASTINGP ERFORMED BY: [facility]6370 [facility] [id number] Specific gravity Relative Density (U) 1.022 1 Normal 1.005-1.03 0 [facility] Work Phone: Comment on above: PATIENT WAS FASTINGP ERFORMED BY: [facility]6370 [facility] [id number] Urobilinogen (U) [Mass/Vol] 0.2 mg/dL Normal 0.2-1.0 [facility]; [facility] Work Phone: Comment on above: PATIENT WAS FASTINGP ERFORMED BY: [facility]6370 [facility] [id number] Urobilinogen Test strip mass conc (U) 0.2 mg/dL Normal 0.2-1.0 Comprehensiv e Internal Medicine Work Phone: Comment on above: PATIENT WAS FASTINGP ERFORMED BY: [facility]6370 [facility] [id number] Comprehensive Metabolic Prof ilOrdered By: Computer Specialist on 08-16-2015 Comprehensive metabolic 2000 panel 4.4 mmol/L Normal 3.5-5.1 Comprehensi ve Internal Medicine Work Phone: Comment on above: [facility] Isxstzborr[address] [facility] [place], [address] Comprehensive metabolic 2000 panel 147 mmol/L Abnormal 136-145 Comprehensi ve Internal Medicine Work Phone: Comment on above: [facility] [address] [place], [place], [id number] Comprehensive metabolic 2000 panel 3.8 g/dL Abnormal 2.3-3.5 Comprehensi ve Internal Medicine Work Phone: Comment on above: [facility] [address] [place], [place], [id number] Comprehensive metabolic 2000 panel 3.6 g/dL Normal 3.4-5.0 Comprehensi ve Internal Medicine Work Phone: Comment on above: [facility] [address] [place], [place], [id number] Comprehensive metabolic 2000 panel 0.50 mg/dL Normal 0.20-1.00 Comprehensi ve Internal Medicine Work Phone: Comment on above: [facility] [address] [place], [place], [phone] Comprehensive metabolic 2000 panel 7.4 g/dL Normal 6.4-8.2 Comprehensi ve Internal Medicine Work Phone: Comment on above: [facility] [address] [place], [place], [phone] Comprehensive metabolic 2000 panel 17.4 {RATIO} Normal 10-20 Comprehensi ve Internal Medicine Work Phone: Comment on above: [facility] [address] [place], [address] Comprehensive metabolic 2000 panel 83 mL/min Normal Comprehensi ve Internal Medicine Work Phone: Comment on above: [facility] [address] [place], [address] Comprehensive metabolic 2000 panel 69 mL/min Normal Comprehensi ve Internal Medicine Work Phone: Comment on above: Non- GFR Calc [facility] [address] [place], [place], [address] Comprehensive metabolic 2000 panel 1.15 mg/dL Normal 0.70-1.30 Comprehensi ve Internal Medicine Work Phone: Comment on above: The validity of the calculated GFR AND GFRAA in patients over70 years has not been determined. Clinical correlation isessential. [facility] [address] [place], [place], [address] Comprehensive metabolic 2000 panel 20 mg/dL Abnormal 7-18 Comprehensi ve Internal Medicine Work Phone: Comment on above: [facility] Pat[address] [place], [place], [address] Comprehensive metabolic 2000 panel 112 mmol/L Abnormal 98-107 Comprehensi ve Internal Medicine Work Phone: Comment on above: [facility] [address] [place], [place], [address] Comprehensive metabolic 2000 panel 22 U/L Normal 12-78 Comprehensi ve Internal Medicine Work Phone: Comment on above: [facility] [address] [place], [place], [phone] Comprehensive metabolic 2000 panel 100 mg/dL Normal 70-110 Comprehensi ve Internal Medicine Work Phone: Comment on above: [facility] [address] [place], [place], [address] Comprehensive metabolic 2000 panel 107 U/L Normal 50-136 Comprehensi ve Internal Medicine Work Phone: Comment on above: [facility] [address] [place], [place], [id number] Comprehensive metabolic 2000 panel 18 U/L Normal 15-37 Comprehensi ve Internal Medicine Work Phone: Comment on above: [facility] [address] [place], [place], [address] Comprehensive metabolic 2000 panel 29.0 mmol/L Normal 21.0-32.0 Comprehensi ve Internal Medicine Work Phone: Comment on above: [facility] [address] [place], [place], [address] Comprehensive metabolic 2000 panel 8.3 mg/dL Abnormal 8.5-10.1 Comprehensi ve Internal Medicine Work Phone: Comment on above: [facility] [address] [place], [place], [phone] Comprehensive metabolic 2000 panel 0.9 {RATIO} Normal 0.9-2.4 Comprehensi ve Internal Medicine Work Phone: Comment on above: [facility] [address] [place], [place], [address] Comprehensive metabolic 2000 panel 6 1 Normal 5-15 Comprehensi ve Internal Medicine Work Phone: Comment on above: [facility] [address] [place], [place], [id number] Lipid ProfileOrdered By: Holly tem Trimmer Sawyer on 08-16-2015 Cholesterol in HDL mass conc 36 mg/dL Abnormal [facility] Work Phone: Comment on above: Reference Range HDL <40 mg/dL Low HDL Cholesterol HDL >or= 60 mg/dL High HDL Cholesterol [facility] [address] [place], [place], [phone] Cholesterol in LDL mass conc 91 mg/dL Normal 0-130 [facility] Work Phone: Comment on above: [facility] [address] [place], [place], [id number] Cholesterol in VLDL mass conc 27 mg/dL Normal 5-40 [facility] Work Phone: Comment on above: [facility] [address] [place], [place], [phone] Cholesterol mass conc 154 mg/dL Normal [facility] Work Phone: Comment on above: <200 mg/dL Desirable 200-240 mg/dL Borderline >240 mg/dL High Risk [facility] [address] [place], [place], [address] Triglyceride mass conc 133 mg/dL Normal [facility] Work Phone: Comment on above: Serum Triglycerides Reference Interval Normal <150 mg/dL Borderline high 150 - 199 mg/dL High 200 - 499 mg/dL Very High > or = 500 mg/dL [facility] [address] [place], [place], [id number] Urinalysis, CompleteOrdered By: Computer Specialist on 08-16-2015 Protein mass conc (U) Negative Normal [facility] Work Phone: Comment on above: [facility] [address] [place], [place], [address] RBC #/vol (U) 0 SEEN Normal 0-5 Comprehensi ve Internal Medicine Work Phone: Comment on above: How [facility] U[facility] ed? [facility] [address]uc[address] [place], [place], [id number] Urinalysis complete panel - Urine 500 /ul Abnormal [facility] Work Phone: Comment on above: How was Urine Obtain ed? [facility] [address] [place], [place], [phone] Urinalysis complete panel - Urine 2+ Normal [facility] Work Phone: Comment on above: How was U[facility] ed? [facility] [address]qlab[address] [place], [place], [phone] Urinalysis complete panel - Urine 0-5 SEEN Normal 0-5 [facility] Work Phone: Comment on above: How was U[facility] ed? [facility] [address] [place], [address] Urinalysis complete panel - Urine Yellow Normal [facility] Work Phone: Comment on above: How was Urine Obtain ed? Urine, [facility] [address] [place], [address] Urinalysis complete panel - Urine Normal Normal [facility] Work Phone: Comment on above: How was Urine Obtain ed? Urine, [facility] [address] [place], [address] Urinalysis complete panel - Urine Clear Normal [facility] Work Phone: Comment on above: How was Urine Obtain ed? Urine, [facility] [address] [place], [address] Urinalysis complete panel - Urine 10-25 SEEN Normal 0-5 [facility] Work Phone: Comment on above: How was Urine Obtain ed? Urine, [facility] [address] [place], [address] Urinalysis complete panel - Urine 0 SEEN Normal 0-5 [facility] Work Phone: Comment on above: How was Urine Obtain ed? [facility], [facility] [address] [place], [address] Urinalysis complete panel - Urine Negative Normal [facility] Work Phone: Comment on above: How was Urine Obtain ed? Urine, [facility] [address] [place], [address] Urinalysis complete panel - Urine 1.020 1 Normal 1.002-1.03 0 [facility] Work Phone: Comment on above: How was Urine Obtain ed? Urine, [facility] [address] [place], [address] Urinalysis complete panel - Urine 6.0 1 Normal 5.0 - 8.0 [facility] Work Phone: Comment on above: How was Urine Obtain ed? Urine, [facility] [address] [place], [place], [phone] Culture, UrineOrdered By: Botanica Exotica stem Trimmer Sawyer on 10-15-2014 Bacteria identified Cx Nom (U) See Note Normal [facility] Work Phone: Comment on above: Urine CultureCulture exhibits no growth. Test performed at:[facility] [address] [place], [place] [phone] Urinalysis, CompleteOrdered By: Computer Specialist on 10-15-2014 Protein mass conc (U) Negative Normal [facility] Work Phone: Comment on above: How was Urine Obtain ed? CLEAN CATCHTest performed at:[facility] [address]es[address] [place], [place] [phone] RBC #/vol (U) 0 SEEN Normal 0-5 Comprehensi ve Internal Medicine Work Phone: Comment on above: How was Urine Obtain ed? CLEAN CATCHTest performed at:[facility] [address] [place], [place] [phone] Urinalysis complete panel - Urine 0 SEEN Normal [facility] Work Phone: Comment on above: How was Urine Obtain ed? CLEAN CATCHTest performed at:[facility] [address] [place], [place] [phone] Urinalysis complete panel - Urine 100 /ul Abnormal [facility] Work Phone: Comment on above: How was Urine Obtain ed? CLEAN CATCHTest performed at:[facility] [address] [place], [place] [phone] Urinalysis complete panel - Urine Clear Normal [facility] Work Phone: Comment on above: How was Urine Obtain ed? CLEAN CATCHTest performed at:[facility] [address] [place], [place] [phone] Urinalysis complete panel - Urine Yellow Normal [facility] Work Phone: Comment on above: How was Urine Obtain ed? CLEAN CATCHTest performed at:[facility] [address] [place] [address] Urinalysis complete panel - Urine 1.015 1 Normal 1.002-1.03 0 [facility] Work Phone: Comment on above: How was Urine Obtain ed? CLEAN CATCHTest performed at:[facility] [address] [place] [address] Urinalysis complete panel - Urine 6.0 1 Normal 5.0 - 8.0 [facility] Work Phone: Comment on above: How was Urine Obtain ed? CLEAN CATCHTest performed at:[facility] [address]ixxx[address] [place] [address] Urinalysis complete panel - Urine Normal Normal [facility] Work Phone: Comment on above: How was Urine Obtain ed? CLEAN CATCHTest performed at:[facility] Iteodttlev[address] [facility] [place] [address] Urinalysis complete panel - Urine Negative Normal [facility] Work Phone: Comment on above: How was Urine Obtain ed? CLEAN CATCHTest performed at:[facility] [address] [place] [address] Urinalysis complete panel - Urine 10 /ul Abnormal [facility] Work Phone: Comment on above: How was Urine Obtain ed? CLEAN CATCHTest performed at:[facility] [address]unzu[address] [place] [address] Urinalysis complete panel - Urine 0-5 SEEN Normal 0-5 [facility] Work Phone: Comment on above: How was Urine Obtain ed? CLEAN CATCHTest performed at:[facility] [address] [place] [address] Rapid Flu (70312 x 2)Ordered By: Breana Jama on 10-01-2014 FLUAV Ag IA Ql (Throat) Negative Normal [facility] Work Phone: FLUAV Ag IA Ql (Throat) Negative Normal [facility]; [facility] Work Phone: HgA1C , Office ([phone])Ordere d By: Pastora Marino on 09-02-2014 Hemoglobin A1c/Hemoglobin.total mass fraction (Bld) 5.6 % Normal 4.6 - 7.1 Comprehensiv e Internal Medicine Work Phone: CBC W/Diff, AutomatedOrdered By: Computer Specialist on 07-13-2014 Absolute Neut 6.4 {X10_3/uL} Normal 2.0-7.7 Compreh ensive Internal Medicine Work Phone: Comment on above: Test performed at:[facility] [address] [place] [address] Basophils/100 WBC (Bld) 0.5 % Normal 0-1 [facility] Work Phone: Comment on above: Test performed at:[facility] [address] [place] [address] Eosinophils/100 WBC (Bld) 1.6 % Normal 0-5 [facility] Work Phone: Comment on above: Test performed at:[facility] [address] [place] [address] Erythrocyte distribution width Ratio (RBC) 13.3 % Normal 11.6-14.6 [facility] Work Phone: Comment on above: Test performed at:[facility] [address] [place] [address] Hematocrit Volume Fraction (Bld) 44.4 % Normal 40-54 [facility] Work Phone: Comment on above: Test performed at:[facility] [address] [place] [address] Hemoglobin mass conc (Bld) 14.7 g/dL Normal 13.0-16.5 [facility] Work Phone: Comment on above: Test performed at:[facility] [address] [place] [address] IM GRAN % 0.700 % Normal 0.0-0.9 [facility] Work Phone: Comment on above: IG% - Immature Granu locytes (promyelocytes, myelocytes andmetamyelocytes) > 1% indicates that a LEFT SHIFT is Present. Test performed at:[facility] [address] [place] [address] Lymphocytes #/vol (Bld) 2.10 {X10_3/ul} Normal 0.83-4.51 [facility] Work Phone: Comment on above: Test performed at:[facility] [address] [place] [address] Lymphocytes/100 WBC (Bld) 21.6 % Normal 19-41 [facility] Work Phone: Comment on above: Test performed at:[facility] [address] [place] [address] MCH Entitic mass (RBC) 29.6 pg Normal 27.0-32.0 [facility] Work Phone: Comment on above: Test performed at:[facility] [address] [place] [address] MCHC mass conc (RBC) 33.1 {g/gl} Normal 32-36 [facility] prehensive Internal Medicine Work Phone: Comment on above: Test performed at:[facility] [address] [place] [address] MCV Entitic volume (RBC) 89.3 fL Normal 80-94 [facility] Work Phone: Comment on above: Test performed at:[facility] [address] [place] [address] Monocytes/100 WBC (Bld) 10.0 % Normal 0-10 [facility] Work Phone: Comment on above: Test performed at:[facility] [address] [place] [address] Neutrophils/100 WBC (Bld) 65.6 % Normal 47-70 [facility] Work Phone: Comment on above: Test performed at:[facility] [address] [place] [address] Platelet mean volume Entitic volume (Bld) 10.8 fL Normal 6.2-12.0 Comprehensi ve Internal Medicine Work Phone: Comment on above: Test performed at:[facility] [address] [place] [address] Platelets #/vol (Bld) 211 10*3/uL Normal 150-450 [facility] Work Phone: Comment on above: Test performed at:[facility] [address] [place] [address] RBC #/vol (Bld) 4.97 {M/mm3} Normal 4.6-6.2 Compreh ensive Internal Medicine Work Phone: Comment on above: Test performed at:[facility] [address] [place] [address] RDW SD 43.1 fL Normal 35.1-43.9 [facility] Work Phone: Comment on above: Test performed at:[facility] [address] [place] [address] WBC #/vol (Bld) 9.7 10*3/uL Normal 4.4-11.0 Comprehe nsive Internal Medicine Work Phone: Comment on above: Test performed at:[facility] [address] [place] [address] Comprehensive Metabolic Prof ilOrdered By: Computer Specialist on 07-13-2014 Albumin mass conc 3.8 g/dL Normal 3.4-5.0 Compreh ensive Internal Medicine Work Phone: Comment on above: Test performed at:[facility] [address] [place] [address] Albumin/Globulin mass ratio 1.2 {RATIO} Normal 0.9-2.4 [facility] Work Phone: Comment on above: Test performed at:[facility] [address] [place] [address] ALT enzyme act/vol 35 U/L Normal 12-78 [facility] Internal Medicine Work Phone: Comment on above: Test performed at:[facility] [address] [place] [address] AST enzyme act/vol 21 U/L Normal 15-37 [facility] Internal Medicine Work Phone: Comment on above: Test performed at:[facility] [address] [place] [address] Bilirubin mass conc 0.60 mg/dL Normal 0.00-4.00 [facility] Internal Medicine Work Phone: Comment on above: Test performed at:[facility] [address] [place] [address] Calcium mass conc 9.3 mg/dL Normal 8.5-10.1 Compreh [facility] Internal Medicine Work Phone: Comment on above: Test performed at:[facility] [address] [place] [address] Chloride molar conc 107 mmol/L Normal 98-107 [facility] Internal Medicine Work Phone: Comment on above: Test performed at:[facility] [address] [place] [address] CO2 molar conc 27.0 mmol/L Normal 21.0-32.0 [facility] Medicine Work Phone: Comment on above: Test performed at:[facility] [address] [place] [address] Creatinine mass conc 1.1 mg/dL Normal 0.8-1.3 Comp rehensive Internal Medicine Work Phone: Comment on above: Test performed at:[facility] [address] [place] [address] GFR/1.73 sq M predicted among non-blacks MDRD vol rate/area (S/P/Bld) 73 mL/min/{1.73_m2} Normal Comprehe nsive Internal Medicine Work Phone: Comment on above: Test performed at:[facility] [address] [place] [address] Globulin mass conc (S) 3.3 g/dL Normal 2.7-4.2 [facility] Medicine Work Phone: Comment on above: Test performed at:[facility] [address] [place] [address] Glucose mass conc 94 mg/dL Normal 70-110 Compreh ensive Internal Medicine Work Phone: Comment on above: Test performed at:[facility] [address] [place] [address] Potassium molar conc 4.5 mmol/L Normal 3.5-5.1 Comp rehensive Internal Medicine Work Phone: Comment on above: Test performed at:[facility] [address] [place] [address] Protein mass conc 7.1 g/dL Normal 6.4-8.2 Compreh ensive Internal Medicine Work Phone: Comment on above: Test performed at:[facility] [address] [place] [address] Sodium molar conc 140 mmol/L Normal 136-145 Compreh ensive Internal Medicine Work Phone: Comment on above: Test performed at:[facility] [address] [place] [address] Urea nitrogen mass conc 17 mg/dL Normal 7-18 [facility] Internal Medicine Work Phone: Comment on above: Test performed at:[facility] [address] [place], [place] [id number] Comprehensive Metabolic Profil 6 1 Normal 5-15 [facility] Internal Medicine Work Phone: Comment on above: Test performed at:[facility] [address] [place] [address] Comprehensive Metabolic Profil 88 mL/min Normal [facility] Internal Medicine Work Phone: Comment on above: Test performed at:[facility] [address] [place] [address] Comprehensive Metabolic Profil 15.5 {RATIO} Normal 10-20 [facility] Internal Medicine Work Phone: Comment on above: Test performed at:[facility] [address] [place] [address] Comprehensive Metabolic Profil 98 U/L Normal 50-136 [facility] Internal Medicine Work Phone: Comment on above: Test performed at:[facility] [address] [place] [address] Lipid ProfileOrdered By: Holly tem Trimmer Sawyer on 07-13-2014 Cholesterol in HDL mass conc 32 mg/dL Abnormal [facility] Internal Medicine Work Phone: Comment on above: Reference Range HDL <40 mg/dL Low HDL Cholesterol HDL >or= 60 mg/dL High HDL Cholesterol Test performed at:[facility] [address] [place] [address] Cholesterol in LDL mass conc 101 mg/dL Normal 0-130 [facility] Medicine Work Phone: Comment on above: Test performed at:[facility] [address] [place] [address] Cholesterol in VLDL mass conc 29 mg/dL Normal 5-40 [facility] Internal Medicine Work Phone: Comment on above: Test performed at:[facility] [address] [place] [address] Cholesterol mass conc 162 mg/dL Normal [facility] Internal Medicine Work Phone: Comment on above: <200 mg/dL Desirable 200-240 mg/dL Borderline >240 mg/dL High Risk Test performed at:[facility] [address] [place] [address] Triglyceride mass conc 147 mg/dL Normal 0-199 [facility] Internal Medicine Work Phone: Comment on above: Serum Triglycerides Reference Interval Normal <150 mg/dL Borderline high 150 - 199 mg/dL High 200 - 499 mg/dL Very High > or = 500 mg/dL Test performed at:[facility] [address] [place] [address] PSA,Total - Annual ScreenOrd ered By: Computer Specialist on 07-13-2014 PSA,Total - Annual Screen 3.33 ng/mL Normal 0.00-4.00 [facility] Internal Medicine Work Phone: Comment on above: This test was perfor med using the TPSA assay method for theMy Top [employer] chemistry system. Values obtained with differentassay methods cannot be used interchangably.When changing PSA assays in the course of monitoring apatient, additional sequential testing should be carriedout to confirm baseline values. Test performed at:[facility] [address] [place] [address] BMPOrdered By: System Manage r [...] Internal Medicine Work Phone: HgA1C , Office ([phone])Ordere d By: Nelly Forde on 10-08-2013 Hemoglobin A1c/Hemoglobin.total mass fraction (Bld) 5.4 % Normal 4.6 - 7.1 Comprehensiv e Internal Medicine Work Phone: CMPOrdered By: System Manage r on 09-01-2013 Albumin mass conc 4.0 g/dL Normal 3.4-5.0 Compreh ensive Internal Medicine Work Phone: Albumin/Globulin mass ratio 1.3 {RATIO} Normal 0.9-2.4 [facility] Internal Medicine Work Phone: ALP enzyme act/vol 102 U/L Normal 50-136 [facility]pre [facility] Internal Medicine Work Phone: ALT enzyme act/vol 33 U/L Normal 12-78 [facility] Internal Medicine Work Phone: AST enzyme act/vol 22 U/L Normal 15-37 [facility] Internal Medicine Work Phone: Bilirubin mass conc 0.40 mg/dL Normal 0.00-1.00 Compr ensive Internal Medicine Work Phone: Calcium mass conc 8.6 mg/dL Normal 8.5-10.1 [facility] Work Phone: Chloride molar conc 108 mmol/L Abnormal 98-107 Compr [facility] Internal Medicine Work Phone: CO2 molar conc 29.0 mmol/L Normal 21.0-32.0 [facility] Internal Medicine Work Phone: Creatinine mass conc 1.4 mg/dL Abnormal 0.8-1.3 Comp [facility] Internal Medicine Work Phone: GFR/1.73 sq M predicted among non-blacks MDRD vol rate/area (S/P/Bld) 55 mL/min/{1.73_m2} Abnormal Comprehe ive Internal Medicine Work Phone: Globulin mass conc (S) 3.1 g/dL Normal 2.7-4.2 [facility] Internal Medicine Work Phone: Glucose mass conc 97 mg/dL Normal 70-110 Compreh ensive Internal Medicine Work Phone: Potassium molar conc 4.4 mmol/L Normal 3.5-5.1 [facility] Work Phone: Protein mass conc 7.1 g/dL Normal 6.4-8.2 Compreh ensive Internal Medicine Work Phone: Sodium molar conc 141 mmol/L Normal 136-145 [facility] Work Phone: Urea nitrogen mass conc 19 mg/dL Abnormal 7-18 [facility] Internal Medicine Work Phone: Urea nitrogen/Creatinine mass ratio 13.6 {RATIO} Normal 10-20 [facility] Internal Medicine Work Phone: CMP 4 1 Abnormal 5-15 [facility] Internal Medicine Work Phone: CMP 67 mL/min Normal [facility] Internal Medicine Work Phone: LIPIDOrdered By: Katie ogncalves on 09-01-2013 Cholesterol in HDL mass conc [...] Internal Medicine Work Phone: HgA1C , Office ([phone])Ordere d By: Nelly Forde on 01-01-2013 Hemoglobin A1c/Hemoglobin.total mass fraction (Bld) 5.8 % Normal 4.6 - 7.1 Comprehensiv e Internal Medicine Work Phone: GALLBLADDEROrdered By: Alethea rodriguez Trimmer Sawyer on 10-26-2012 GALLBLADDER See Note Normal Comprehensive [...] Cuello M.D.October 26, 2012 at 1:41:40 PM [phone] Signed GK/GODRY If you are the referring physician and would like to consult with theradiologist who provided this interpretation, please contact Rinku Montenegro M.D. at . If this radiologist is unavailable, youwillbe directed to another radiologist to assist. If you are a patient with a question regarding this report, pleasecontactyour referring physician directly. Professional Interpretation Provided By: [employer], Phone , These documents contain legally protected [...] Cuello MD ABDOMEN/PELVIS WITHOUT CONTO rdered By: Computer Specialist on 10-20-2012 ABDOMEN/PELVIS WITHOUT CONT See Note [...] Molina M.D.October 20, 2012 at 10:19:34 AM [id number] Signed GP/GP If you are the referring physician and would like to consult with theradiologist who provided this interpretation, please contact Kt Pacheco at [phone]. If this radiologist is unavailable, youwill be directed to another radiologist to assist. If you are a patient with a question regarding this report, pleasecontactyour referring physician directly. Professional Interpretation Provided By: [employer], Phone , These documents contain legally protected [...] Oscar Molina MD URINE LINDSEY CULTURE[place]IDENTIF[place] ([id number])Ordered By: Computer Specialist on 10-20-2012 Bacteria identified Cx Nom (U) Final report Normal [facility] Internal Medicine Work Phone: Comment on above: PATIENT NOT FASTINGP ERFORMED BY: [email or web address] CompanyF[facility] [id number] Information: [id number] Bacteria identified Cx Nom (U) [id number] Normal [facility] Internal Medicine Work Phone: Comment on above: No growth in 36 - 48 hours. PATIENT NOT FASTINGP ERFORMED BY: [id number] [employer] CompanyFry[facility] [id number] Information: [id number] Urinalysis, Office ([phone])Or dered By: Elsy Castillo on 10-20-2012 Bilirubin [...] Internal Medicine Work Phone: BIDOrdered By: System Tendr r on 07-08-2012 BID 0.07 mg/dL Normal [...] enzyme act/vol 112 U/L Normal 50-136 [facility] Work Phone: ALT enzyme act/vol 36 U/L Normal 12-78 [facility]pre [facility] Internal Medicine Work Phone: Anion gap molar conc 11 mmol/L Normal 5-15 Comp rehensive Internal Medicine Work Phone: AST enzyme act/vol 20 U/L Normal 15-37 [facility] Internal Medicine Work Phone: Bilirubin mass conc [...] Internal Medicine Work Phone: HgA1C , Office ([phone])Ordere d By: Nelly Forde on 11-22-2011 Hemoglobin [...] ALP enzyme act/vol 88 U/L Normal 50-136 [facility] Internal Medicine Work Phone: Comment on above: appt 11/22/11 ALT enzyme act/vol 35 U/L Normal 12-78 [facility] Internal Medicine Work Phone: Comment on above: appt 11/22/11 Anion gap molar conc 7 mmol/L Normal 5-[address] [facility] Work Phone: Comment on above: appt 11/22/11 AST enzyme act/vol 24 U/L Normal 15-37 [facility] Internal Medicine Work Phone: Comment on above: appt 11/22/11 Bilirubin mass conc 0.70 mg/dL Normal 0.00-1.00 [facility] Internal Medicine Work Phone: Comment on above: appt 11/22/11 Calcium mass conc 8.4 mg/dL Abnormal 8.5-10.1 [facility] Work Phone: Comment on above: appt 11/22/11 Chloride molar conc 108 mmol/L Abnormal 98-107 [facility] Internal Medicine Work Phone: Comment on above: appt 11/22/11 CO2 molar conc 27.0 mmol/L Normal 21.0-32.0 [facility] Internal Medicine Work Phone: Comment on above: appt 11/22/11 Creatinine mass conc 1.2 mg/dL Normal 0.8-1.[address] [facility] Work Phone: Comment on above: [...] = 500 mg/dL Blood Glucose , Office ([phone])Ordered By: Beryl Fermin on 05-26-2011 Glucose Glucometer molar conc (BldC) 72 1 Normal [facility] Internal Medicine Work Phone: HgA1C , Office ([phone])Ordere d By: Beryl Fermin on 05-26-2011 Hemoglobin A1c/Hemoglobin.total mass fraction (Bld) 5.6 % Normal 4.6 - 7.1 Comprehensiv e Internal Medicine Work Phone: CBCD,SMEAR DIFFOrdered By: S ystem Trimmer Sawyer on 05-22-2011 Band form neutrophils/100 WBC (Bld) [...] Work Phone: Platelets #/vol (Bld) SeeNote Normal [facility] Internal Medicine Work Phone: Comment on above: Result: ADEQUATE Platelets #/vol (Bld) 214 10*3/uL Normal 150-450 [facility] Internal Medicine Work Phone: RBC #/vol (Bld) 4.72 {M/mm3} Normal 4.6-6.2 [facility] Internal [facility] Work Phone: WBC #/vol (Bld) 10.1 10*3/uL Normal 4.4-11.0 Compreh [facility] Internal Medicine Work Phone: CBCD,SMEAR DIFF SeeNote Normal [facility] Internal Medicine Work Phone: Comment on above: Result: NORM C+C Result: TRACE-INTACT Result: NEGATIVE CBCD,SMEAR DIFF 70 % Normal 47-70 [facility] Internal Medicine Work Phone: CBCD,SMEAR DIFF 100 1 Normal [facility] Internal Medicine Work Phone: COMP METABOLICOrdered By: Zachariah stem Trimmer Sawyer on 05-22-2011 Albumin mass conc 3.9 g/dL Normal 3.4-5.0 [facility]pre[facility] Internal Medicine Work Phone: Albumin/Globulin mass ratio 1.1 {RATIO} Normal 0.9-2.4 [facility] Internal Medicine Work Phone: ALP enzyme act/vol 89 U/L Normal 50-136 [facility] Work Phone: ALT enzyme act/vol 32 U/L Normal 12-78 [facility] Work Phone: Anion gap molar [...] or = 500 mg/dL PSA, SCREENOrdered By: [employer] m Trimmer Sawyer on 05-22-2011 Prostate specific Ag mass conc 1.4 ng/mL Normal 0.0-4.0 [facility] Medicine Work Phone: ROUTINE UAOrdered By: Computer Specialist on 05-22-2011 Clarity Nom (U) CLEAR Normal [...] Work Phone: CBCD,SMEAR DIFFOrdered By: S ystem Trimmer Sawyer on 01-24-2010 Erythrocyte distribution width Ratio (RBC) [...] WBC #/vol (Bld) 9.9 10*3/uL Normal 4.4-11.[address] [facility] Internal Medicine Work Phone: CBCD,SMEAR DIFF 100 1 Normal [facility] Internal Medicine Work Phone: CBCD,SMEAR DIFF SeeNote Normal [facility] Internal Medicine Work Phone: Comment on above: Result: NORM C+C CBCD,SMEAR DIFF 72 % Abnormal 47-70 [facility] Internal Medicine Work Phone: COMP METABOLICOrdered By: Zachariah stem Trimmer Sawyer on 01-24-2010 Albumin mass conc 3.5 g/dL Normal 3.4-5.0 [facility] Internal Medicine Work Phone: Albumin/Globulin mass ratio 0.9 {RATIO} Normal 0.9-2.4 [facility] Internal Medicine Work Phone: ALP enzyme act/vol 85 U/L Normal 50-136 [facility] Internal Medicine Work Phone: ALT enzyme act/vol 25 U/L Normal 12-78 [facility] Internal Medicine Work Phone: Anion gap molar conc 7 mmol/L Normal 5-15 Comp [facility] Internal Medicine Work Phone: AST enzyme act/vol 16 U/L Normal 15-37 [facility] Internal Medicine Work Phone: Bilirubin mass conc 0.50 mg/dL Normal 0.00-1.00 [facility] Internal Medicine Work Phone: Calcium mass conc 8.4 mg/dL Abnormal 8.5-10.1 [facility] Internal Medicine Work Phone: Chloride molar conc 105 mmol/L Normal 98-107 [facility] Internal Medicine Work Phone: CO2 molar conc 28.0 mmol/L Normal 21.0-32.0 [facility] Internal Medicine Work Phone: Creatinine mass conc 1.0 mg/dL Normal 0.8-1.3 Comp [facility] Internal Medicine Work Phone: GFR/1.73 sq [...] 500 mg/dL CBCD,SMEAR DIFFOrdered By: Kaylynn simontem Trimmer Sawyer on 10-24-2009 Eosinophils/100 WBC (Bld) 2 % [...] Medicine Work Phone: CBCD,SMEAR DIFF SeeNote Normal [facility] Internal Medicine Work Phone: Comment on above: Result: NORM C+C CBCD,SMEAR DIFF 80 % Abnormal 47-70 [facility] Internal Medicine Work Phone: COMP METABOLICOrdered By: Zachariah stem Trimmer Sawyer on 10-24-2009 Albumin mass conc 4.2 g/dL Normal 3.4-5.0 [facility] Internal Medicine Work Phone: Albumin/Globulin mass ratio 1.2 {RATIO} Normal 0.9-2.4 [facility] Internal Medicine Work Phone: ALP enzyme act/vol 96 U/L Normal 50-136 [facility] Internal Medicine Work Phone: ALT enzyme act/vol 34 U/L Normal 12-78 [facility] Internal Medicine Work Phone: Anion gap molar conc 6 mmol/L Normal 5-15 [facility] Internal Medicine Work Phone: AST enzyme act/vol 16 U/L Normal 15-37 [facility] Internal Medicine Work Phone: Bilirubin mass conc 0.40 mg/dL Normal 0.00-1.00 [facility] Internal Medicine Work Phone: Calcium mass conc 8.9 mg/dL Normal 8.5-10.1 [facility] Internal Medicine Work Phone: Chloride molar conc 106 mmol/L Normal 98-107 [facility] Internal Medicine Work Phone: CO2 molar conc 28.0 mmol/L Normal 21.0-32.0 [facility] Internal Medicine Work Phone: Creatinine mass conc 1.2 mg/dL Normal 0.8-1.3 [facility] Internal Medicine Work Phone: GFR/1.73 sq M predicted among blacks MDRD vol rate/area (S/P/Bld) 81 mL/min/{1.73_m2} Normal [facility] Internal Medicine Work Phone: GFR/1.73 sq M.predicted [...] Internal Medicine Work Phone: PSA, SCREENOrdered By: [employer] Trimmer Sawyer on 10-24-2009 Prostate specific Ag mass conc 1.5 ng/mL Normal 0.0-4.0 [facility] Medicine Work Phone: TSHOrdered By: System Tendr r on 10-24-2009 Thyrotropin Qn 0.75 {uIU/mL} [...] 500 mg/dL COMP METABOLICOrdered By: Zachariah stem Trimmer Sawyer on 06-21-2009 Albumin mass conc 3.8 g/dL Normal 3.4-5.0 Compreh ensive Internal Medicine Work Phone: Albumin/Globulin mass ratio 1.2 {RATIO} Normal 0.9-2.4 [facility] Internal Medicine Work Phone: ALP enzyme act/vol 102 U/L Normal 50-136 Compre [facility] Internal Medicine Work Phone: ALT enzyme act/vol 43 U/L Normal 12-78 [facility] Work Phone: Comment on above: Please Note: Yury ed Reference Range effective 09 Anion gap molar conc 9 mmol/L Normal 5-15 [facility] Work Phone: AST enzyme act/vol 20 U/L Normal 15-37 Compre [facility] Internal Medicine Work Phone: Bilirubin mass conc 0.20 mg/dL Normal 0.00-1.00 Compr [facility] Internal Medicine Work Phone: Calcium mass conc 8.7 mg/dL Normal 8.5-10.1 [facility] Work Phone: Chloride molar conc 106 mmol/L Normal 98-107 Compr ensive Internal Medicine Work Phone: CO2 molar conc 28.0 mmol/L Normal 21.0-32.0 Comprehen [facility] Internal Medicine Work Phone: Creatinine mass conc 1.0 mg/dL Normal 0.8-1.[address] [facility] Work Phone: GFR/1.73 sq M predicted among blacks MDRD vol rate/area (S/P/Bld) 99 mL/min/{1.73_m2} Normal Comprehe [facility] Internal Medicine Work Phone: GFR/1.73 sq M.predicted [...] > or = 500 mg/dL LIVEROrdered By: [employer] on 06-22-2008 Albumin mass conc 3.9 g/dL Normal 3.4-5.0 Compreh ensive Internal Medicine Work Phone: ALP enzyme act/vol 91 U/L Normal 50-136 [facility] Work Phone: ALT enzyme act/vol 63 U/L Normal 30-65 [facility] Internal Medicine Work Phone: AST enzyme act/vol 28 U/L Normal 15-37 [facility] Internal Medicine Work Phone: Bilirubin mass conc 0.32 mg/dL Normal 0.00-1.00 Compr [facility] Internal Medicine Work Phone: Bilirubin.direct mass conc 0.07 mg/dL Normal 0.00-0.30 [facility] Medicine Work Phone: Protein mass conc 7.0 g/dL Normal 6.4-8.2 Compreh ensive Internal Medicine Work Phone: LIVEROrdered By: System Jerilyn goncalves on 07-09-2006 Albumin mass conc 4.1 g/dL Normal 3.4-5.0 Compreh [facility] Internal Medicine Work Phone: ALP enzyme act/vol 99 U/L Normal 50-136 [facility] Internal Medicine Work Phone: ALT enzyme act/vol 32 [iU]/L Normal 30-65 [facility] Internal Medicine Work Phone: AST enzyme act/vol 14 U/L Abnormal 15-37 [facility] Internal Medicine Work Phone: Bilirubin mass conc 0.57 mg/dL Normal 0.00-1.00 [facility] Internal Medicine Work Phone: Bilirubin.direct mass conc 0.09 mg/dL Normal 0.00-0.30 [facility] Internal Medicine Work Phone: Protein mass conc 7.1 g/dL Normal 6.4-8.2 Compre[facility] Internal Medicine Work Phone: MGOrdered By: Computer Specialist on 07-09-2006 Magnesium mass conc 2.0 mg/dL Normal 1.5-2.2 [facility] Internal Medicine Work Phone: PFLIPOrdered By: System [employer] on 07-09-2006 Cholesterol in HDL mass conc 29 mg/dL Abnormal [facility] Internal Medicine Work Phone: Comment on [...] 177.8 cm Christine Tesfaye MD Work Phone: [facility] 03-16-2024 08:53-0400 Body mass index (BMI) [Ratio] 24.16 kg/m2 Christine Tesfaye MD Work Phone: [facility] 03-16-2024 08:53-0400 Body weight 76.39 kg Christine Tesfaye MD Work Phone: [facility] 03-16-2024 08:53-0400 Diastolic blood pressure 89 mm[Hg] Christine Tesfaye MD Work Phone: [facility] 03-16-2024 08:53-0400 Heart rate 96 /min Christine Tesfaye MD Work Phone: [facility] 03-16-2024 08:53-0400 Systolic blood pressure 143 mm[Hg] Christine Tesfaye MD Work Phone: [facility] 12-08-2023 10:07-0400 Body height 177.8 cm Christine Tesfaye MD Work Phone: [facility] 12-08-2023 10:07-0400 Body mass index (BMI) [Ratio] 24.42 kg/m2 Christine Tesfaye MD Work Phone: [facility] 12-08-2023 10:07-0400 Body weight 77.2 kg Christine Tesfaye MD Work Phone: [facility] 12-08-2023 10:07-0400 Diastolic blood pressure 91 mm[Hg] Christine Tesfaye MD Work Phone: [facility] 12-08-2023 10:07-0400 Heart rate 62 /min Christine Tesfaye MD Work Phone: [facility] 12-08-2023 10:07-0400 Systolic blood pressure 158 mm[Hg] Christine Tesfaye MD Work Phone: [facility] 01-31-2023 08:25-0400 Body height 180.34 cm [facility] Comprehensive Internal Medicine; [facility] Medicine Work Phone: 01-31-2023 08:25-0400 Body mass index (BMI) [Ratio] 23.45 kg/m2 [facility] Internal Medicine; [facility] Work Phone: 01-31-2023 08:25-0400 Body surface area Derived from formula 1.96 m2 [facility] Internal Medicine; [facility] Work Phone: 01-31-2023 08:25-0400 Body temperature 97.5 [degF] [facility] Internal Medicine; [facility] Work Phone: 01-31-2023 08:25-0400 Body weight 76.26 kg [facility] Internal Medicine; [facility] Work Phone: 01-31-2023 08:25-0400 Diastolic blood pressure 70 mm[Hg] [facility]; [facility] Work Phone: 01-31-2023 08:25-0400 Heart rate 72 /min [facility]; [facility] Work Phone: 01-31-2023 08:25-0400 Respiratory rate 16 /min [facility]; [facility] Work Phone: 01-31-2023 08:25-0400 SaO2% (BldA) [Mass fraction] 99 % [facility]; [facility] Work Phone: 01-31-2023 08:25-0400 Systolic blood pressure 124 mm[Hg] [facility]; [facility] Work [...] 177.8 cm Christine Tesfaye MD Work Phone: [employer] 12-31-2022 07:58-0400 Body mass index (BMI) [Ratio] 24.91 kg/m2 Christine Tesfaye MD Work Phone: [employer] 12-31-2022 07:58-0400 Body weight 78.74 kg Christine Tesfaye MD Work Phone: [employer] [facility] [employer] 12-31-2022 07:58-0400 Diastolic blood pressure 84 mm[Hg] Christine Tesfaye MD Work Phone: [employer] [facility] [employer] 12-31-2022 07:58-0400 Heart rate 88 /min Christine Tesfaye MD Work Phone: [employer] 12-31-2022 07:58-0400 Systolic blood pressure 158 mm[Hg] Christine Tesfaye MD Work Phone: [facility] Audit 12-23-2022 11:09-0400 Body height 180.34 cm Marybeth Martha DO Work Phone: [facility]; [facility] Work Phone: 12-23-2022 11:09-0400 Body mass index (BMI) [Ratio] 23.43 kg/m2 Marybeth Martha DO Work Phone: [facility]; [facility] Work Phone: 12-23-2022 11:09-0400 Body surface area Derived from formula 1.96 m2 Marybeth Martha DO Work Phone: [facility] [...] Body mass index (BMI) [Ratio] 23.43 kg/m2 [facility]; [facility] Work Phone: 08-20-2022 08:52-0500 Body surface area Derived from formula 1.96 m2 [facility] Work Phone: 08-20-2022 08:52-0500 Body temperature 97.8 [degF] [facility]; [facility] Work Phone: 08-20-2022 08:52-0500 Body weight 76.2 kg [facility] Medicine; [facility] Work Phone: 08-20-2022 08:52-0500 Diastolic blood pressure 84 mm[Hg] [facility]; [facility] Work Phone: 08-20-2022 08:52-0500 Heart rate 86 /min [facility]; [facility] Work Phone: 08-20-2022 08:52-0500 Respiratory rate 16 /min [facility]; [facility] Work Phone: 08-20-2022 08:52-0500 SaO2% (BldA) [Mass fraction] 95 % [facility]; [facility] Work Phone: 08-20-2022 08:52-0500 Systolic blood pressure 132 mm[Hg[facility]; [facility] Work Phone: 07-01-2022 10:48-0500 Body temperature 98.2 [degF] Dr. Marybeth Thomas Work Phone: [facility] 07-01-2022 10:48-0500 Diastolic blood pressure 69 mm[Hg] Dr. Marybeth Thomas Work Phone: [facility] 07-01-2022 10:48-0500 Heart rate 96 /min Dr. Marybeth Thomas Work Phone: [facility] 07-01-2022 10:48-0500 Respiratory rate 16 /min Dr. Marybeth Thomas Work Phone: [facility] 07-01-2022 10:48-0500 SaO2% (BldA) [Mass fraction] 98 % Dr. Marybeth Thomas Work Phone: [facility] 07-01-2022 10:48-0500 Systolic blood pressure 130 mm[Hg] Dr. Marybeth Thomas Work Phone: [facility] 07-01-2022 03:20-0500 Inhaled oxygen flow rate 2 L/min Dr. Marybeth Thomas Work Phone: [facility] 06-30-2022 14:19-0500 Body height 177.[address] Marybeth Thomas Work Phone: [facility] 06-30-2022 14:19-0500 Body mass index (BMI) [Ratio] 25.4 kg/m2 Dr. Marybeth Thomas Work Phone: [facility] 06-30-2022 14:19-0500 Body weight 80.[address] Marybeth Thomas Work Phone: [facility] 01-28-2022 14:11-0400 Body height 180.34 cm Leann Aquino LPN [facility]; [facility] Work Phone: 01-28-2022 14:11-0400 Body mass index (BMI) [Ratio] 24.04 kg/m2 Leann Brown Internal Medicine; [facility] Work Phone: 01-28-2022 14:11-0400 Body surface area Derived from formula 1.98 m2 Leann Aqiuno LPN [facility]; [facility] [...] 07:51-0400 Respiratory rate 16 /min Leann Aquino [employer] [facility]; [facility] Work [...] index (BMI) [Ratio] 23.43 kg/m2 Breana Slarb [employer] [facility]; [facility] Work Phone: 06-01-2021 08:05-0500 Body surface area Derived from formula 1.96 m2 Breana Slarb [employer] [facility]; [facility] Work Phone: 06-01-2021 08:05-0500 Body temperature 97.8 [degF] Breana Slarb [employer] [facility]; [facility] Work Phone: 06-01-2021 08:05-0500 Body weight 76.2 kg Breana Slarb [employer] [facility]; [facility] Work Phone: 06-01-2021 08:05-0500 Diastolic blood pressure 82 mm[Hg] Breana Slarb [employer] [facility]; [facility] Work Phone: 06-01-2021 08:05-0500 Heart rate 97 /min Breana Slarb [employer] [facility]; [facility] Work Phone: 06-01-2021 08:05-0500 Respiratory rate 16 /min Breana Slarb [employer] [facility]; [facility] Work Phone: 06-01-2021 08:05-0500 SaO2% (BldA) [Mass fraction] 95 % Breana Herndonlavinia [facility]; [facility] Work Phone: 06-01-2021 08:05-0500 Systolic blood pressure 148 mm[Hg] Breana Herndonlavinia [facility]; [facility] Work Phone: 04-06-2021 09:38-0400 Body height 180.34 cm Stacy Jensen [facility]; [facility] Work Phone: 04-06-2021 09:38-0400 Body mass index (BMI) [Ratio] 23.43 kg/m2 Stacy Jensen [facility]; [facility] Work Phone: 04-06-2021 09:38-0400 Body surface area Derived from formula 1.96 m2 Stacy Jensen [facility]; [facility] Work Phone: 04-06-2021 09:38-0400 Body temperature 97.3 [degF] Stacy Jensen [facility]; [facility] Work Phone: 04-06-2021 09:38-0400 Body weight 76.2 kg Stacy Jensen [facility]; [facility] Work Phone: 04-06-2021 09:38-0400 Diastolic blood pressure 82 mm[Hg] Stacy Jensen [facility]; [facility] Work Phone: 04-06-2021 09:38-0400 Heart rate 93 /min Stacy Jensen [facility]; [facility] Work Phone: 04-06-2021 09:38-0400 Respiratory rate 18 /min Stacy Jensen [facility]; [facility] Work Phone: 04-06-2021 09:38-0400 SaO2% (BldA) [Mass fraction] 95 % Stacy Boydius [facility]; [facility] [...] Derived from formula 2.03 m2 Stacy Jensen [facility]; [facility] Work Phone: 01-19-2021 08:39-0400 Body temperature 97.3 [degF] Stacy Jensen CMA [facility]; [facility] Work Phone: Comment on above: Method: Infrared 01-19-2021 08:39-0400 Body weight 83.01 kg Stacy Jensen [employer] [facility]; [facility] Work Phone: 01-19-2021 08:39-0400 Diastolic blood pressure 68 mm[Hg] Stacy Jensen [facility]; [facility] Work Phone: Comment on above: Patient Position: Sitting; Cuff Location : Left Arm; Cuff Size: Standard 01-19-2021 08:39-0400 Heart rate 96 /min Stacy Jensen [facility]; [facility] Work Phone: Comment on above: Pattern: Regular 01-19-2021 08:39-0400 Respiratory rate 20 /min Stacy Jensen [employer] [facility]; [facility] Work Phone: Comment on above: Pattern: Wheezing 01-19-2021 08:39-0400 SaO2% (BldA) [Mass fraction] 94 % Stacy Jensen [facility]; [facility] Work Phone: Comment on above: Room air 01-19-2021 08:39-0400 Systolic blood pressure 118 mm[Hg] Stacy Jensen [facility]; [facility] Work Phone: Comment on above: Patient Position: Sitting; Cuff Location : Left Arm; Cuff Size: Standard 12-01-2020 08:37-0400 Body height 180.34 cm [facility]; [facility] Work Phone: 12-01-2020 08:37-0400 Body mass index (BMI) [Ratio] 25.52 kg/m2 [facility]; [facility] Work Phone: 12-01-2020 08:37-0400 Body surface area Derived from formula 2.03 m2 [facility]; [facility] Work Phone: 12-01-2020 08:37-0400 Body temperature 97.2 [degF] [facility]; [facility] Work Phone: Comment on above: Method: Thermal Scan 12-01-2020 08:37-0400 Body weight 83.01 kg [facility]; [facility] Work Phone: 12-01-2020 08:37-0400 Diastolic blood pressure 72 mm[Hg] [facility]; [facility] Work Phone: Comment on above: Patient Position: Sitting; Cuff Location : Left Arm; Cuff Size: Standard 12-01-2020 08:37-0400 Heart rate 82 /min [facility]; [facility] Work Phone: Comment on above: Pattern: Regular 12-01-2020 08:37-0400 Respiratory rate 16 /min [facility]; [facility] Work Phone: Comment on above: Pattern: Unlabored 12-01-2020 08:37-0400 SaO2% (BldA) [Mass fraction] 97 % [facility]; [facility] Work Phone: Comment on above: Room air 12-01-2020 08:37-0400 Systolic blood pressure 124 mm[Hg] Amber Cross [employer] [facility]; [facility] Work [...] (Body Mass Index) 24.55 kg/m2 Stacy Jensen [facility] Work Phone: 04-30-2020 08:09-0400 Body Temperature 97.2 [degF] tSacy Jensen [facility] Work Phone: Comment on above: Method: Infrared 04-30-2020 08:09-0400 Body weight 79.83 kg Stacy Jensen [facility] Work Phone: 04-30-2020 08:09-0400 BP Diastolic 78 mm[Hg] Stacy Jensen [facility] Work Phone: Comment on above: Patient Position: Sitting; Cuff Location : Left Arm; Cuff Size: Standard 04-30-2020 08:09-0400 BP Systolic 138 mm[Hg] Stacy Jensen [facility] Work Phone: Comment on above: Patient Position: Sitting; Cuff Location : Left Arm; Cuff Size: Standard 04-30-2020 08:09-0400 BSA (Body Surface Area) 2 m2 Stacy Jensen [facility] Internal Medicine Work Phone: 04-30-2020 08:09-0400 Height 180.34 cm Stacy Jensen [facility] Internal Medicine Work Phone: 04-30-2020 08:09-0400 Pulse (Heart Rate) 88 /min Stacy Jensen [facility] Internal Medicine Work Phone: Comment on above: Pattern: Regular 04-30-2020 08:09-0400 Pulse Oximetry 96 % Marybeth Thomas [facility] Internal Medicine Work Phone: Comment on above: Room air 04-30-2020 08:09-0400 Respiratory Rate 18 /min Stacy Jensen [facility] Internal Medicine Work Phone: Comment on above: Pattern: Unlabored 04-30-2020 08:09-0400 SaO2% (BldA) [Mass fraction] 96 % Stacy Jensen [facility] Internal Medicine; [facility] Internal Medicine Work Phone: Comment on above: Room air 01-28-2020 08:58-0400 BMI (Body Mass Index) 24.69 kg/m2 Stacy Jensen [facility] Internal Medicine Work Phone: 01-28-2020 08:58-0400 Body Temperature 97.3 [degF] Stacy Jensen [facility] Internal Medicine Work Phone: Comment on above: Method: Infrared 01-28-2020 08:58-0400 Body weight 80.29 kg Stacy Jensen [facility] Internal Medicine Work Phone: 01-28-2020 08:58-0400 BP Diastolic 84 mm[Hg] Stacy Jensen [facility] Internal Medicine Work Phone: Comment on above: Patient Position: Sitting; Cuff Location : Left Arm; Cuff Size: Standard 01-28-2020 08:58-0400 BP Systolic 132 mm[Hg] Stacy Jensen [facility] Internal Medicine Work Phone: Comment on above: Patient Position: Sitting; Cuff Location : Left Arm; Cuff Size: Standard 01-28-2020 08:58-0400 BSA (Body Surface Area) 2 m2 Stacy Jensen [facility] Internal Medicine Work Phone: 01-28-2020 08:58-0400 Height 180.34 cm Stacy Jensen [facility] Internal Medicine Work Phone: 01-28-2020 08:58-0400 Pulse (Heart Rate) 84 /min Stacy Jensen [facility] Internal Medicine Work Phone: Comment on above: Pattern: Regular 01-28-2020 08:58-0400 Pulse Oximetry 96 % Marybeth Thomas [facility] Internal Medicine Work Phone: Comment on above: Room air 01-28-2020 08:58-0400 Respiratory Rate 18 /min Stacy Jensen [facility] Internal Medicine Work Phone: Comment on above: Pattern: Unlabored 01-28-2020 08:58-0400 SaO2% (BldA) [Mass fraction] 96 % Stacy Jensen [facility] Internal Medicine; [facility] Work Phone: Comment on above: Room air 01-09-2020 12:13-0400 BMI (Body Mass Index) 24.69 kg/m2 Stacy Jensen [facility] Internal Medicine Work Phone: Comment on above: no vs taken as this is phone encounter d ue to covid 01-09-2020 12:13-0400 Body weight 80.29 kg Stacy Jensen [facility] Internal Medicine Work Phone: Comment on above: no vs taken as this is phone encounter d ue to covid 01-09-2020 12:13-0400 BSA (Body Surface Area) 2 m2 Stacy Jensen [facility] Internal Medicine Work Phone: Comment on above: no vs taken as this is phone encounter d ue to covid 01-09-2020 12:13-0400 Height 180.34 cm Stacy Jensen [facility] Internal Medicine Work Phone: Comment on above: no vs taken as this is phone encounter d ue to covid 12-27-2019 07:21-0400 BMI (Body Mass Index) 24.69 kg/m2 Marilynn Wallace RN [facility] Internal Medicine Work Phone: 12-27-2019 07:21-0400 Body weight 80.29 kg Marilynn Wallace RN [facility] Internal Medicine Work Phone: 12-27-2019 07:21-0400 BP Diastolic 74 mm[Hg] Marilynn Wallace RN [facility] Internal Medicine Work Phone: Comment on above: Patient Position: Sitting; Cuff Location : Left Arm; Cuff Size: Standard 12-27-2019 07:21-0400 BP Systolic 132 mm[Hg] Marilynn Wallace RN [facility] Work Phone: Comment on above: Patient Position: Sitting; Cuff Location : Left Arm; Cuff Size: Standard 12-27-2019 07:21-0400 BSA (Body Surface Area) 2 m2 Marilynn Wallace RN [facility] Internal Medicine Work Phone: 12-27-2019 07:21-0400 Height 180.34 cm Marilynn Wallace RN [facility] Work Phone: 12-27-2019 07:21-0400 Pulse (Heart Rate) 84 /min Marilynn Wallace RN [facility] Work Phone: Comment on above: Pattern: Regular 12-27-2019 07:21-0400 Respiratory Rate 16 /min Marilynn Wallace RN [facility] Internal Medicine Work Phone: Comment on above: Pattern: Unlabored 08-02-2019 07:12-0500 BMI (Body Mass Index) 23.29 kg/m2 Stacy Jensen [facility] Internal Medicine Work Phone: 08-02-2019 07:12-0500 Body Temperature 97.1 [degF] Stacy Jensen [facility] Internal Medicine Work Phone: Comment on above: Method: Temporal 08-02-2019 07:12-0500 Body weight 75.75 kg Stacy Jensen [facility] Internal Medicine Work Phone: 08-02-2019 07:12-0500 BP Diastolic 82 mm[Hg] Stacy Jensen [facility] Internal Medicine Work Phone: Comment on above: Patient Position: Sitting; Cuff Location : Left Arm; Cuff Size: Standard 08-02-2019 07:12-0500 BP Systolic 123 mm[Hg] Stacy Jensen [facility] Work Phone: Comment on above: Patient Position: Sitting; Cuff Location : Left Arm; Cuff Size: Standard 08-02-2019 07:12-0500 BSA (Body Surface Area) 1.95 m2 Stacy Jensen [facility] Work Phone: 08-02-2019 07:12-0500 Height 180.34 cm Stacy Jensen [facility] Work Phone: 08-02-2019 07:12-0500 Pulse (Heart Rate) 99 /min Stacy Jensen [facility] Work Phone: Comment on above: Pattern: Regular 08-02-2019 07:12-0500 Pulse Oximetry 96 % Marybeth Thomas [facility] Internal Medicine Work Phone: Comment on above: Room air 08-02-2019 07:12-0500 Respiratory Rate 16 /min Stacy Jensen [facility] Work Phone: Comment on above: Pattern: Unlabored 08-02-2019 07:12-0500 SaO2% (BldA) [Mass fraction] 96 % Stacy Jensen [facility]; [facility] Work Phone: Comment on above: Room air 03-29-2019 06:43-0400 BMI (Body Mass Index) 23.29 kg/m2 [employer] [facility] Internal Medicine Work Phone: 03-29-2019 06:43-0400 BMI (Body Mass Index) 23.06 kg/m2 Marybeth Thomas [facility] Internal Medicine Work Phone: 03-29-2019 06:43-0400 Body weight 75.75 kg Yazmin [place] [facility] Internal Medicine Work Phone: 03-29-2019 06:43-0400 Body weight 75.01 kg Marybeth Thomas [facility] Internal Medicine Work Phone: 03-29-2019 06:43-0400 BP Diastolic 70 mm[Hg] [employer] [facility] Internal Medicine Work Phone: Comment on above: Patient Position: Sitting; Cuff Location : Left Arm; Cuff Size: Standard 03-29-2019 06:43-0400 BP Systolic 130 mm[Hg] [employer] [facility] Internal Medicine Work Phone: Comment on above: Patient Position: Sitting; Cuff Location : Left Arm; Cuff Size: Standard 03-29-2019 06:43-0400 BSA (Body Surface Area) 1.95 m2 [employer] [facility] Internal Medicine Work Phone: 03-29-2019 06:43-0400 Height 180.34 cm [employer] [facility] Medicine Work Phone: 03-29-2019 06:43-0400 Pulse (Heart Rate) 90 /min [employer] [facility] Medicine Work Phone: Comment on above: Pattern: Regular 03-29-2019 06:43-0400 Pulse Oximetry 99 % Marybeth Thomas [facility] Internal Medicine Work Phone: Comment on above: Room air 03-29-2019 06:43-0400 Respiratory Rate 18 /min [employer] [facility] Medicine Work Phone: Comment on above: Pattern: Unlabored 03-29-2019 06:43-0400 SaO2% (BldA) [Mass fraction] 99 % [employer] [facility]; [facility] Work [...] Mass Index) 23.15 kg/m2 Marilynn Wallace RN [facility] Internal Medicine Work Phone: 12-14-2018 09:51-0400 Body [...] 09:51-0400 Pulse Oximetry 97 % Marybeth Robbinson [facility] Internal Medicine Work Phone: Comment on above: Room air 12-14-2018 09:51-0400 Respiratory Rate 16 /min Marilynn Wallace RN [facility] Work Phone: Comment on above: Pattern: Unlabored 12-14-2018 09:51-0400 SaO2% (BldA) [Mass fraction] 97 % Marilynn Wallace RN [facility]; [facility] Work Phone: Comment on above: Room air 12-14-2018 09:51-0400 Weight 75.3 kg Marybeth Thomas [facility] Internal Medicine Work Phone: 11-30-2018 12:29-0400 BMI (Body Mass Index) 23.31 kg/m2 Stacy Jensen [facility] Work Phone: 11-30-2018 12:29-0400 Body Temperature 97.2 [degF] Stacy Jensen [facility] Work Phone: Comment on above: Method: Temporal 11-30-2018 12:29-0400 Body weight 75.81 kg Stacy Jensen [facility] Work Phone: 11-30-2018 12:29-0400 BP Diastolic 72 mm[Hg] Stacy Jensen [facility] Work Phone: Comment on above: Patient Position: Sitting; Cuff Location : Left Arm; Cuff Size: Standard 11-30-2018 12:29-0400 BP Systolic 143 mm[Hg] Stacy Jensen CMA [facility] Internal Medicine Work Phone: Comment on above: Patient Position: Sitting; Cuff Location : Left Arm; Cuff Size: Standard 11-30-2018 12:29-0400 BSA (Body Surface Area) 1.95 m2 Stacy Jensen CMA [facility] Internal Medicine Work Phone: 11-30-2018 12:29-0400 Height 180.34 cm Stacy Jensen CMA [facility] Medicine Work Phone: 11-30-2018 12:29-0400 Pulse (Heart Rate) 86 /min Stacy Jensen CMA [facility] Internal Medicine Work Phone: Comment on above: Pattern: Regular 11-30-2018 12:29-0400 Pulse Oximetry 98 % Marybeth Thomas [facility] Internal Medicine Work Phone: Comment on above: Room air 11-30-2018 12:29-0400 Respiratory Rate 18 /min Stacy Jensen CMA [facility] Internal Medicine Work Phone: Comment on above: Pattern: Unlabored 11-30-2018 12:29-0400 SaO2% (BldA) [Mass fraction] 98 % Stacy Jensen [facility] Internal Medicine; [facility] Work Phone: Comment on above: Room air 11-30-2018 12:29-0400 Weight 75.81 kg Marybeth Thomas [facility] Internal Medicine Work Phone: 10-26-2018 07:36-0400 BMI (Body Mass Index) 22.75 kg/m2 Stacy Jensen CMA [facility] Internal Medicine Work Phone: 10-26-2018 07:36-0400 Body Temperature 97.5 [degF] Stacy Jensen CMA [facility] Internal Medicine Work Phone: Comment on above: Method: Temporal 10-26-2018 07:36-0400 Body weight 73.99 kg Stacy Jensen [facility] Internal Medicine Work Phone: 10-26-2018 07:36-0400 BP Diastolic 82 mm[Hg] Stacy Jensen [facility] Internal Medicine Work Phone: Comment on above: Patient Position: Sitting; Cuff Location : Left Arm; Cuff Size: Standard 10-26-2018 07:36-0400 BP Systolic 142 mm[Hg] Stacy Jensen [facility] Internal Medicine Work Phone: Comment on above: Patient Position: Sitting; Cuff Location : Left Arm; Cuff Size: Standard 10-26-2018 07:36-0400 BSA (Body Surface Area) 1.93 m2 Stacy Jensen [facility] Internal Medicine Work Phone: 10-26-2018 07:36-0400 Height 180.34 cm Stacy Jensen [facility] Internal Medicine Work Phone: 10-26-2018 07:36-0400 Pulse (Heart Rate) 93 /min Stacy Jensen [facility] Internal Medicine Work Phone: Comment on above: Pattern: Regular 10-26-2018 07:36-0400 Pulse Oximetry 96 % Marybeth Thomas [facility] Internal Medicine Work Phone: Comment on above: Room air 10-26-2018 07:36-0400 Respiratory Rate 16 /min Stacy Jensen [facility] Internal Medicine Work Phone: Comment on above: Pattern: Unlabored 10-26-2018 07:36-0400 SaO2% (BldA) [Mass fraction] 96 % Stacy Jensen [facility] Internal Medicine; [facility] Work Phone: Comment on above: Room air 10-26-2018 07:36-0400 Weight 73.99 kg Marybeth Thomas [facility] Internal Medicine Work Phone: 11-14-2017 15:56-0400 BMI (Body Mass Index) 22.75 kg/m2 Marilynn Wallace RN [facility] Internal Medicine Work Phone: 11-14-2017 15:56-0400 Body Temperature 98.6 [degF] Marilynn Wallace RN [facility] Internal Medicine Work Phone: Comment on above: Method: Temporal 11-14-2017 15:56-0400 Body weight 73.99 kg Marilynn Wallace RN [facility] Internal Medicine Work Phone: 11-14-2017 15:56-0400 BP [...] 11-14-2017 15:56-0400 Weight 73.99 kg Marybeth Thomas [facility] Internal Medicine Work Phone: 10-05-2017 08:15-0400 BMI (Body Mass Index) 22.75 kg/m2 Jayla Barlow [facility] Internal Medicine Work Phone: 10-05-2017 08:15-0400 Body weight 73.99 kg Jayla Barlow [facility] Internal Medicine Work Phone: 10-05-2017 08:15-0400 BP Diastolic 78 mm[Hg] Jayla Barlow [facility] Internal Medicine Work Phone: Comment on above: Patient Position: Sitting; Cuff Location : Left Arm; Cuff Size: Standard 10-05-2017 08:15-0400 BP Systolic 162 mm[Hg] Jayla Barlow [facility] Internal Medicine Work Phone: Comment on above: Patient Position: Sitting; Cuff Location : Left Arm; Cuff Size: Standard 10-05-2017 08:15-0400 BSA (Body Surface Area) 1.93 m2 Jayla Barlow [facility] Internal Medicine Work Phone: 10-05-2017 08:15-0400 Height 180.34 cm Jayla Barlow [facility] Internal Medicine Work Phone: 10-05-2017 08:15-0400 Pulse (Heart Rate) 56 /min Jayla Barlow [facility] Internal Medicine Work Phone: Comment on above: Pattern: Regular 10-05-2017 08:15-0400 Pulse Oximetry 98 % Marybeth Thomas [facility] Internal Medicine Work Phone: Comment on above: Room air 10-05-2017 08:15-0400 Respiratory Rate 18 /min Jayla Barlow [facility] Internal Medicine Work Phone: Comment on above: Pattern: Unlabored 10-05-2017 08:15-0400 SaO2% (BldA) [Mass fraction] 98 % Jayla Barlow [facility] Internal Medicine; [facility] Internal Medicine Work Phone: Comment on above: Room air 10-05-2017 08:15-0400 Weight 73.99 kg Marybeth Thomas [facility] Internal Medicine Work Phone: 11-24-2016 08:08-0400 BMI (Body Mass Index) 23.71 kg/m2 [facility] Work Phone: 11-24-2016 08:08-0400 Body weight 77.11 [facility] Work Phone: 11-24-2016 08:08-0400 BP Diastolic 68 mm[Hg] [facility] Work Phone: Comment on above: Patient Position: Sitting; Cuff Location : Left Arm; Cuff Size: Standard 11-24-2016 08:08-0400 BP Systolic 126 mm[Hg] [facility] Work Phone: Comment on above: Patient Position: Sitting; Cuff Location : Left Arm; Cuff Size: Standard 11-24-2016 08:08-0400 BSA (Body Surface Area) 1.97 m2 [facility] Work Phone: 11-24-2016 08:08-0400 Height 180.34 cm Pastora Marino CMA [facility] Internal Medicine Work Phone: 11-24-2016 08:08-0400 Pulse (Heart Rate) 107 /min Pastora Marino [facility] Internal Medicine Work Phone: Comment on above: Pattern: Regular 11-24-2016 08:08-0400 Pulse Oximetry 100 % Marybeth Thomas [facility] Internal Medicine Work Phone: Comment on above: Room air 11-24-2016 08:08-0400 Respiratory Rate 16 /min Pastora Marino [facility] Internal Medicine Work Phone: Comment on above: Pattern: Unlabored 11-24-2016 08:08-0400 SaO2% (BldA) [Mass fraction] 100 % Pastora Marino [facility] Internal Medicine; [facility] Work Phone: Comment on above: Room air 11-24-2016 08:08-0400 Weight 77.11 kg Marybeth Thomas [facility] Internal Medicine Work Phone: 07-21-2016 08:15-0500 BMI (Body Mass Index) 23.15 kg/m2 Pastora Marino [facility] Internal Medicine Work Phone: 07-21-2016 08:15-0500 Body Temperature 97.2 [degF] Pastora Marino [facility] Internal Medicine Work Phone: Comment on above: Method: Temporal 07-21-2016 08:15-0500 Body weight 75.3 kg Pastora Marino [facility] Internal Medicine Work Phone: 07-21-2016 08:15-0500 BP Diastolic 70 mm[Hg] Pastora Marino [facility] Internal Medicine Work Phone: Comment on above: Patient Position: Sitting; Cuff Location : Left Arm; Cuff Size: Standard 07-21-2016 08:15-0500 BP Systolic 118 mm[Hg] Pastora Marino [facility] Internal Medicine Work Phone: Comment on above: Patient Position: Sitting; Cuff Location : Left Arm; Cuff Size: Standard 07-21-2016 08:15-0500 BSA (Body Surface Area) 1.95 m2 Pastora Marino [facility] Internal Medicine Work Phone: 07-21-2016 08:15-0500 Height 180.34 cm Pastora Marino [facility] Internal Medicine Work Phone: 07-21-2016 08:15-0500 Pulse (Heart Rate) 94 /min Pastora Marino [facility] Internal Medicine Work Phone: Comment on above: Pattern: Regular 07-21-2016 08:15-0500 Respiratory Rate 16 /min Pastora Marino [facility] Internal Medicine Work Phone: Comment on above: Pattern: Unlabored 07-21-2016 08:15-0500 Weight 75.3 kg Marybeth Thomas [facility] Internal Medicine Work Phone: 03-19-2016 07:12-0400 BMI (Body Mass Index) 23.43 kg/m2 Pastora Marino [facility] Internal Medicine Work Phone: 03-19-2016 07:12-0400 Body weight 76.2 kg Pastora Marino [facility] Internal Medicine Work Phone: 03-19-2016 07:12-0400 BP Diastolic 64 mm[Hg] Pastora Marino [facility] Internal Medicine Work Phone: Comment on above: Patient Position: Sitting; Cuff Location : Left Arm; Cuff Size: Standard 03-19-2016 07:12-0400 BP Systolic 122 mm[Hg] Pastora Marino [facility] Internal Medicine Work Phone: Comment on above: Patient Position: Sitting; Cuff Location : Left Arm; Cuff Size: Standard 03-19-2016 07:12-0400 BSA (Body Surface Area) 1.96 m2 Pastora Marino [facility] Internal Medicine Work Phone: 03-19-2016 07:12-0400 Height 180.34 cm Pastora Marino [facility] Internal Medicine Work Phone: 03-19-2016 07:12-0400 Pulse (Heart Rate) 64 /min Pastora Marino [facility] Internal Medicine Work Phone: Comment on above: Pattern: Regular 03-19-2016 07:12-0400 Pulse Oximetry 98 % Marybeth Thomas [facility] Internal Medicine Work Phone: Comment on above: Room air 03-19-2016 07:12-0400 Respiratory Rate 16 /min Pastora Marino [facility] Internal Medicine Work Phone: Comment on above: Pattern: Unlabored 03-19-2016 07:12-0400 SaO2% (BldA) [Mass fraction] 98 % Pastora Marino [facility] Internal Medicine; [facility] Work Phone: Comment on above: Room air 03-19-2016 07:12-0400 Weight 76.2 kg Marybeth Thomas [facility] Internal Medicine Work Phone: 08-25-2015 17:01-0500 BMI (Body Mass Index) 24.83 kg/m2 Nelly Forde [facility] Internal Medicine Work Phone: 08-25-2015 17:01-0500 Body Temperature 99.1 [degF] Nelly Forde [facility] Internal Medicine Work Phone: Comment on above: Method: Temporal 08-25-2015 17:01-0500 Body weight 80.74 kg Nelly Forde [facility] Internal Medicine Work Phone: 08-25-2015 17:01-0500 BP Diastolic 80 mm[Hg] Nelly Forde [facility] Internal Medicine Work Phone: Comment on above: Patient Position: Sitting; Cuff Location : Left Arm; Cuff Size: Standard 08-25-2015 17:01-0500 BP Systolic 142 mm[Hg] Nelly Forde [facility] Internal Medicine Work Phone: Comment on above: Patient Position: Sitting; Cuff Location : Left Arm; Cuff Size: Standard 08-25-2015 17:01-0500 BSA (Body Surface Area) 2.01 m2 Nelly Forde [facility] Internal Medicine Work Phone: 08-25-2015 17:01-0500 Height 180.34 cm Nelly Saxenasanta [facility] Internal Medicine Work Phone: 08-25-2015 17:01-0500 Pulse (Heart Rate) 76 /min Nelly Forde [facility] Work Phone: Comment on above: Pattern: Regular 08-25-2015 17:01-0500 Pulse Oximetry 95 % Marybeth Thomas [facility] Internal Medicine Work Phone: Comment on above: Room air 08-25-2015 17:01-0500 Respiratory Rate 15 /min Nelly Maurisio [facility] Internal Medicine Work Phone: Comment on above: Pattern: Unlabored 08-25-2015 17:01-0500 SaO2% (BldA) [Mass fraction] 95 % Nelly Maurisio [facility] Internal Medicine; [facility] Work Phone: Comment on above: Room air 08-25-2015 17:01-0500 Weight 80.74 kg Marybeth Thomas [facility] Internal Medicine Work Phone: 10-01-2014 10:00-0400 BMI (Body Mass Index) 24.41 kg/m2 Nelly Saxenasanta [facility] Internal Medicine Work Phone: 10-01-2014 10:00-0400 Body Temperature 97.7 [degF] Nelly Forde [facility] Internal Medicine Work Phone: 10-01-2014 10:00-0400 Body weight 79.38 kg Nelly Maurisio [facility] Internal Medicine Work Phone: 10-01-2014 10:00-0400 BP Diastolic 82 mm[Hg] Nelly Maurisio [facility] Internal Medicine Work Phone: Comment on above: Patient Position: Sitting; Cuff Location : Left Arm; Cuff Size: Standard 10-01-2014 10:00-0400 BP Systolic 134 mm[Hg] Nelly Forde [facility] Internal Medicine Work Phone: Comment on above: Patient Position: Sitting; Cuff Location : Left Arm; Cuff Size: Standard 10-01-2014 10:00-0400 BSA (Body Surface Area) 1.99 m2 Nelly Forde [facility] Internal Medicine Work Phone: 10-01-2014 10:00-0400 Height 180.34 cm Nelly Forde [facility] Internal Medicine Work Phone: 10-01-2014 10:00-0400 Pulse (Heart Rate) 82 /min Nelly Forde [facility] Internal Medicine Work Phone: Comment on above: Pattern: Regular 10-01-2014 10:00-0400 Respiratory Rate 16 /min Nelly Forde [facility] Internal Medicine Work Phone: Comment on above: Pattern: Unlabored 10-01-2014 10:00-0400 Weight 79.38 kg Marybeth Thomas [facility] Internal Medicine Work Phone: 09-02-2014 08:51-0500 BMI (Body Mass Index) 24.41 kg/m2 Pastora Marino [facility] Internal Medicine Work Phone: 09-02-2014 08:51-0500 Body Temperature 97.1 [degF] Pastora Marino [facility] Internal Medicine Work Phone: Comment on above: Method: Oral 09-02-2014 08:51-0500 Body weight 79.38 kg Pastora Marino [facility] Internal Medicine Work Phone: 09-02-2014 08:51-0500 BP Diastolic 78 mm[Hg] Pastora Marino [facility] Internal Medicine Work Phone: Comment on above: Patient Position: Sitting; Cuff Location : Left Arm; Cuff Size: Standard 09-02-2014 08:51-0500 BP Systolic 140 mm[Hg] Pastora Ned [facility] Internal Medicine Work Phone: Comment on above: Patient Position: Sitting; Cuff Location : Left Arm; Cuff Size: Standard 09-02-2014 08:51-0500 BSA (Body Surface Area) 1.99 m2 Pastora Marino [facility] Internal Medicine Work Phone: 09-02-2014 08:51-0500 Height 180.34 cm Pastora Marino [facility] Internal Medicine Work Phone: 09-02-2014 08:51-0500 Pulse (Heart Rate) 96 /min Pastora Marino [facility] Internal Medicine Work Phone: Comment on above: Pattern: Regular 09-02-2014 08:51-0500 Respiratory Rate 16 /min Pastora Marino [facility] Internal Medicine Work Phone: Comment on above: Pattern: Unlabored 09-02-2014 08:51-0500 Weight 79.38 kg Marybeth Thomas [facility] Internal Medicine Work Phone: 10-08-2013 16:36-0400 BMI (Body Mass Index) 23.99 kg/m2 Nelly Moran [facility] Internal Medicine Work Phone: 10-08-2013 16:36-0400 Body Temperature 98.4 [degF] Nelly Forde [facility] Internal Medicine Work Phone: 10-08-2013 16:36-0400 Body weight 78.02 kg Nelly Forde [facility] Internal Medicine Work Phone: 10-08-2013 16:36-0400 BP Diastolic 60 mm[Hg] Nelly Forde [facility] Internal Medicine Work Phone: Comment on above: Patient Position: Sitting; Cuff Location : Left Arm; Cuff Size: Large 10-08-2013 16:36-0400 BP Systolic 110 mm[Hg] Nelly Forde [facility] Internal Medicine Work Phone: Comment on above: Patient Position: Sitting; Cuff Location : Left Arm; Cuff Size: Large 10-08-2013 16:36-0400 BSA (Body Surface Area) 1.98 m2 Nelly Forde [facility] Internal Medicine Work Phone: 10-08-2013 16:36-0400 Height 180.34 cm Nelly Forde [facility] Internal Medicine Work Phone: 10-08-2013 16:36-0400 Pulse (Heart Rate) 92 /min Nelly Forde [facility] Work Phone: Comment on above: Pattern: Regular 10-08-2013 16:36-0400 Respiratory Rate 18 /min Nelly Forde [facility] Internal Medicine Work Phone: Comment on above: Pattern: Unlabored 10-08-2013 16:36-0400 Weight 78.02 kg Marybeth Thomas [facility] Internal Medicine Work Phone: 01-01-2013 16:13-0400 BMI (Body Mass Index) 23.43 kg/m2 Nelly Forde [facility] Internal Medicine Work Phone: 01-01-2013 16:13-0400 Body Temperature 97.6 [degF] Nelly Forde [facility] Internal Medicine Work Phone: 01-01-2013 16:13-0400 Body weight 76.2 kg Nelly Forde [facility] Internal Medicine Work Phone: 01-01-2013 16:13-0400 BP Diastolic 72 mm[Hg] Nelly Forde [facility] Internal Medicine Work Phone: Comment on above: Patient Position: Sitting; Cuff Location : Left Arm; Cuff Size: Standard 01-01-2013 16:13-0400 BP Systolic 128 mm[Hg] Nelly Forde [facility] Internal Medicine Work Phone: Comment on above: Patient Position: Sitting; Cuff Location : Left Arm; Cuff Size: Standard 01-01-2013 16:13-0400 BSA (Body Surface Area) 1.96 m2 Nelly Forde [facility] Internal Medicine Work Phone: 01-01-2013 16:13-0400 Height 180.34 cm Nelly Mahoneymonico [facility] Internal Medicine Work Phone: 01-01-2013 16:13-0400 Pulse (Heart Rate) 96 /min Nelly Marksens [facility] Internal Medicine Work Phone: Comment on above: Pattern: Regular 01-01-2013 16:13-0400 Respiratory Rate 16 /min Nelly Mahoneymonico [facility] Internal Medicine Work Phone: Comment on above: Pattern: Unlabored 01-01-2013 16:13-0400 Weight 76.2 kg Marybeth Thomas [facility] Internal Medicine Work Phone: 10-31-2012 08:20-0400 BMI (Body Mass Index) 23.71 kg/m2 Nelly Maurisio [facility] Internal Medicine Work Phone: 10-31-2012 08:20-0400 Body Temperature 98.2 [degF] Nelly Maurisio [facility] Internal Medicine Work Phone: 10-31-2012 08:20-0400 Body weight 77.11 kg Nelly Maurisio [facility] Internal Medicine Work Phone: 10-31-2012 08:20-0400 BP Diastolic 72 mm[Hg] Nelly Maurisio [facility] Internal Medicine Work Phone: Comment on above: Patient Position: Sitting; Cuff Location : Left Arm; Cuff Size: Large 10-31-2012 08:20-0400 BP Systolic 122 mm[Hg] Nelly Maurisio [facility] Internal Medicine Work Phone: Comment on above: Patient Position: Sitting; Cuff Location : Left Arm; Cuff Size: Large 10-31-2012 08:20-0400 BSA (Body Surface Area) 1.97 m2 Nelly Maurisio [facility] Internal Medicine Work Phone: 10-31-2012 08:20-0400 Height 180.34 cm Nelly Forde [facility] Internal Medicine Work Phone: 10-31-2012 08:20-0400 Pulse (Heart Rate) 88 /min Nelly Maurisio [facility] Work Phone: Comment on above: Pattern: Regular 10-31-2012 08:20-0400 Respiratory Rate 18 /min Nelly Maurisio [facility] Internal Medicine Work Phone: Comment on above: Pattern: Unlabored 10-31-2012 08:20-0400 Weight 77.11 kg Marybeth Thomas [facility] Internal Medicine Work Phone: 10-23-2012 16:00-0400 BMI [...] Phone: 10-23-2012 16:00-0400 Weight 78.08 kg Marybeth Thomas [facility] Work Phone: 10-20-2012 08:03-0400 [...] 10-20-2012 08:03-0400 Respiratory Rate 20 /min Pilar Moilna RN [facility] Work Phone: Comment [...] BP Systolic 120 mm[Hg] Elizabeth Ruiz LPN [facility] Internal Medicine Work Phone: Comment on above: Patient Position: Sitting; Cuff Location : Left Arm; Cuff Size: Standard 07-14-2012 07:44-0500 BSA (Body Surface Area) 1.98 m2 Elizabeth Ruiz [employer] [facility] Internal Medicine Work Phone: 07-14-2012 07:44-0500 Height 180.34 cm Elizabeth Ruiz [facility] Internal Medicine Work Phone: 07-14-2012 07:44-0500 Pulse (Heart Rate) 72 /min Elizabeth Ruiz [facility] Internal Medicine Work Phone: Comment on above: Pattern: Regular 07-14-2012 07:44-0500 Respiratory Rate 16 /min Elizabeth Ruiz [employer] [facility] Internal Medicine Work Phone: 07-14-2012 07:44-0500 Weight 78.08 kg Marybeth Thomas [facility] Internal Medicine Work Phone: 11-22-2011 08:31-0400 BMI (Body Mass Index) 24.69 kg/m2 Nelly Forde [facility] Internal Medicine Work Phone: 11-22-2011 08:31-0400 Body Temperature 97.3 [degF] Nelly Forde [facility] Internal Medicine Work Phone: 11-22-2011 08:31-0400 Body weight 80.29 kg Nelly Forde [facility] Internal Medicine Work Phone: 11-22-2011 08:31-0400 BP Diastolic 70 mm[Hg] Nelly Forde [facility] Internal Medicine Work Phone: Comment on above: Patient Position: Sitting; Cuff Location : Left Arm; Cuff Size: Large 11-22-2011 08:31-0400 BP Systolic 122 mm[Hg] Nelly Forde [facility] Internal Medicine Work Phone: Comment on above: Patient Position: Sitting; Cuff Location : Left Arm; Cuff Size: Large 11-22-2011 08:31-0400 BSA (Body Surface Area) 2 m2 Nelly Forde [facility] Internal Medicine Work Phone: 11-22-2011 08:31-0400 Height 180.34 cm Nelly Forde [facility] Internal Medicine Work Phone: 11-22-2011 08:31-0400 Pulse (Heart Rate) 104 /min [facility] Work Phone: Comment on above: Pattern: Regular 11-22-2011 08:31-0400 Respiratory Rate 16 /min Nelly Forde [facility] Internal Medicine Work Phone: Comment on above: Pattern: Unlabored 11-22-2011 08:31-0400 Weight 80.29 kg Marybeth Thomas [facility] Internal Medicine Work Phone: 05-26-2011 08:05-0400 BMI [...] Pattern: Unlabored 05-26-2011 08:05-0400 Weight 81.19 kg Marbyeth Thomas [facility] Internal Medicine Work Phone: 03-09-2010 15:06-0400 Body Temperature 98.1 [degF] Nelly Forde [facility] Internal Medicine Work Phone: 03-09-2010 15:06-0400 Body weight 73.94 kg Nelly Forde [facility] Internal Medicine Work Phone: 03-09-2010 15:06-0400 BP Diastolic 72 mm[Hg] Nelly Forde [facility] Internal Medicine Work Phone: Comment on above: Patient Position: Sitting; Cuff Location : Left Arm; Cuff Size: Large 03-09-2010 15:06-0400 BP Systolic 106 mm[Hg] Nelly Forde [facility] Internal Medicine Work Phone: Comment on above: Patient Position: Sitting; Cuff Location : Left Arm; Cuff Size: Large 03-09-2010 15:06-0400 Pulse (Heart Rate) 96 /min Nelly Forde [facility] Internal Medicine Work Phone: Comment on above: Pattern: Regular 03-09-2010 15:06-0400 Respiratory Rate 18 /min Nelly Forde [facility] Internal Medicine Work Phone: Comment on above: Pattern: Unlabored 03-09-2010 15:06-0400 Weight 73.94 kg Marybethmariam Thomas [facility] Internal Medicine Work Phone: 01-05-2010 18:04-0400 Body weight 75.3 kg Nelly Forde [facility] Internal Medicine Work Phone: 01-05-2010 18:04-0400 BP Diastolic 80 mm[Hg] Nelly Forde [facility] Internal Medicine Work Phone: Comment on above: Patient Position: Sitting; Cuff Location : Left Arm; Cuff Size: Standard 01-05-2010 18:04-0400 BP Systolic 132 mm[Hg] Nelly Forde [facility] Internal Medicine Work Phone: Comment on above: Patient Position: Sitting; Cuff Location : Left Arm; Cuff Size: Standard 01-05-2010 18:04-0400 Pulse (Heart Rate) 82 /min Nelly Forde [facility] Work Phone: Comment on above: Pattern: Regular 01-05-2010 18:04-0400 Respiratory Rate 18 /min Nelly Forde [facility] Internal Medicine Work Phone: Comment on above: Pattern: Unlabored 01-05-2010 18:04-0400 Weight 75.3 kg Marybeth Thomas [facility] Internal Medicine Work Phone: 10-24-2009 12:00-0400 Body Temperature 96.7 [degF] Nelly Forde [facility] Internal Medicine Work Phone: 10-24-2009 12:00-0400 Body weight 76.66 kg Nelly Forde [facility] Internal Medicine Work Phone: 10-24-2009 12:00-0400 BP Diastolic 76 mm[Hg] Nelly Forde [facility] Internal Medicine Work Phone: Comment on above: Patient Position: Sitting; Cuff Location : Left Arm; Cuff Size: Large 10-24-2009 12:00-0400 BP Systolic 140 mm[Hg] Nelly Forde [facility] Internal Medicine Work Phone: Comment on above: Patient Position: Sitting; Cuff Location : Left Arm; Cuff Size: Large 10-24-2009 12:00-0400 Pulse (Heart Rate) 96 /min Nelly Forde [facility] Work Phone: Comment on above: Pattern: Regular 10-24-2009 12:00-0400 Respiratory Rate 18 /min Nelly Forde [facility] Internal Medicine Work Phone: Comment on above: Pattern: Unlabored 10-24-2009 12:00-0400 Weight 76.66 kg Marybeth Thomas [facility] Internal Medicine Work Phone: 05-19-2009 16:22-0400 BMI (Body Mass Index) 23.37 kg/m2 [facility] Internal Medicine Work Phone: 05-19-2009 16:22-0400 Body Temperature 97 [degF] [facility] Internal Medicine Work Phone: Comment on above: Method: Oral 05-19-2009 16:22-0400 Body weight 76.01 kg [facility] Internal Medicine Work Phone: 05-19-2009 16:22-0400 BP Diastolic 78 mm[Hg] [facility] Internal Medicine Work Phone: Comment on above: Patient Position: Sitting; Cuff Location : Left Arm; Cuff Size: Standard 05-19-2009 16:22-0400 BP Systolic 134 mm[Hg] [facility] Internal Medicine Work Phone: Comment on above: Patient Position: Sitting; Cuff Location : Left Arm; Cuff Size: Standard 05-19-2009 16:22-0400 BSA (Body Surface Area) 1.96 m2 [facility] Internal Medicine Work Phone: 05-19-2009 16:22-0400 Head Circumference 0 cm Marybeth Thomas [facility] Internal Medicine Work Phone: 05-19-2009 16:22-0400 Head Occipital-frontal circumference 0 cm [facility] Internal Medicine; [facility] Internal Medicine Work Phone: 05-19-2009 16:22-0400 Height 180.34 cm [facility] Internal Medicine Work Phone: 05-19-2009 16:22-0400 Pulse (Heart Rate) 84 /min [facility] Internal Medicine Work Phone: Comment on above: Pattern: Regular 05-19-2009 16:22-0400 Respiratory Rate 18 /min [facility] Internal Medicine Work Phone: Comment on above: Pattern: Unlabored 05-19-2009 16:22-0400 Weight 76.01 kg Marybeth Thomas [facility] Internal Medicine Work Phone: 05-27-2008 15:53-0500 Body Temperature 97.8 [degF] [facility] Internal Medicine Work Phone: Comment on above: Method: Oral 05-27-2008 15:53-0500 Body weight 75.3 kg Melisa [facility] Internal Medicine Work Phone: 05-27-2008 15:53-0500 BP Diastolic 82 mm[Hg] [facility] Internal Medicine Work Phone: Comment on above: Patient Position: Sitting; Cuff Location : Left Arm; Cuff Size: Standard 05-27-2008 15:53-0500 BP Systolic 130 mm[Hg] [facility] Internal Medicine Work Phone: Comment on above: Patient Position: Sitting; Cuff Location : Left Arm; Cuff Size: Standard 05-27-2008 15:53-0500 Head Circumference 0 cm Marybeth Thomas [facility] Internal Medicine Work Phone: 05-27-2008 15:53-0500 Head Occipital-frontal circumference 0 cm [facility]isa [facility] Work Phone: 05-27-2008 15:53-[address] [facility] Internal Medicine Work Phone: 05-27-2008 15:53-0500 Pulse (Heart Rate) 96 /min [facility] Internal Medicine Work Phone: Comment on above: Pattern: Regular 05-27-2008 15:53-0500 Respiratory Rate 18 /min [facility] Internal Medicine Work Phone: Comment on above: Pattern: Unlabored 05-27-2008 15:53-0500 Weight 75.3 kg Marybeth Thomas [facility] Internal Medicine Work Phone: 05-06-2008 16:32-0400 Body Temperature 97.9 [degF] [facility] Internal Medicine Work Phone: Comment on above: Method: Oral 05-06-2008 16:32-0400 Body weight 75.47 kg [facility] Work Phone: 05-06-2008 16:32-0400 BP Diastolic 82 mm[Hg] Melisa [facility] Internal Medicine Work Phone: Comment on above: Patient Position: Sitting; Cuff Location : Left Arm; Cuff Size: Standard 05-06-2008 16:32-0400 BP Systolic 130 mm[Hg] Melisa [facility] Internal Medicine Work Phone: Comment on above: Patient Position: Sitting; Cuff Location : Left Arm; Cuff Size: Standard 05-06-2008 16:32-0400 Head Circumference 0 cm Marybeth Thomas [facility] Internal Medicine Work Phone: 05-06-2008 16:32-0400 Head Occipital-frontal circumference 0 cm Melisa [facility] Work Phone: 05-06-2008 16:32-0400 Height 0 cm Melisa [facility] Internal Medicine Work Phone: 05-06-2008 16:32-0400 Pulse (Heart Rate) 98 /min Melisa [facility] Internal Medicine Work Phone: Comment on above: Pattern: Regular 05-06-2008 16:32-0400 Respiratory Rate 16 /min Melisa [facility] Internal Medicine Work Phone: Comment on above: Pattern: Unlabored 05-06-2008 16:32-0400 Weight 75.47 kg Marybeth Thomas [facility] Internal Medicine Work Phone: 07-20-2006 11:46-0500 BMI (Body Mass Index) 23.78 kg/m2 Nelly Forde [facility] Internal Medicine Work Phone: 07-20-2006 11:46-0500 Body Temperature 97.6 [degF] Nelly Forde [facility] Internal Medicine Work Phone: Comment on above: Method: Oral 07-20-2006 11:46-0500 Body weight 73.03 kg Nelly Forde [facility] Internal Medicine Work Phone: 07-20-2006 11:46-0500 BP Diastolic 70 mm[Hg] Nelly Forde [facility] Internal Medicine Work Phone: Comment on above: Patient Position: Sitting; Cuff Location : Right Arm; Cuff Size: Standard 07-20-2006 11:46-0500 BP Systolic 136 mm[Hg] Nelly Forde [facility] Internal Medicine Work Phone: Comment on above: Patient Position: Sitting; Cuff Location : Right Arm; Cuff Size: Standard 07-20-2006 11:46-0500 BSA (Body Surface Area) 1.88 m2 Nelly Forde [facility] Internal Medicine Work Phone: 07-20-2006 11:46-0500 Head Circumference 0 cm Marybeth Thomas [facility] Internal Medicine Work Phone: 07-20-2006 11:46-0500 Head Occipital-frontal circumference 0 cm Nelly Mahoneymonico [facility] Internal Medicine; [facility] Work Phone: 07-20-2006 11:46-0500 Height 175.26 cm Nelly Mahoneymonico [facility] Internal Medicine Work Phone: 07-20-2006 11:46-0500 Pulse (Heart Rate) 92 /min Nelly Forde [facility] Internal Medicine Work Phone: Comment on above: Pattern: Regular 07-20-2006 11:46-0500 Respiratory Rate 16 /min Nelly Mahoneymonico [facility] Internal Medicine Work Phone: Comment on above: Pattern: Unlabored 07-20-2006 11:46-0500 Weight 73.03 kg Marybeth Thomas [facility] Internal Medicine Work Phone: 04-22-2006 07:46-0400 BMI (Body Mass Index) 23.78 kg/m2 Nelly Forde [facility] Internal Medicine Work Phone: 04-22-2006 07:46-0400 Body Temperature 97 [degF] Nelly Saxenasanta [facility] Internal Medicine Work Phone: Comment on above: Method: Oral 04-22-2006 07:46-0400 Body weight 73.03 kg Nelly Forde [facility] Internal Medicine Work Phone: 04-22-2006 07:46-0400 BP Diastolic 92 mm[Hg] Nelly Forde [facility] Internal Medicine Work Phone: Comment on above: Patient Position: Sitting; Cuff Location : Left Arm; Cuff Size: Standard 04-22-2006 07:46-0400 BP Systolic 142 mm[Hg] Nelly Forde [facility] Internal Medicine Work Phone: Comment on above: Patient Position: Sitting; Cuff Location : Left Arm; Cuff Size: Standard 04-22-2006 07:46-0400 BSA (Body Surface Area) 1.88 m2 Nelly Forde [facility] Internal Medicine Work Phone: 04-22-2006 07:46-0400 Head Circumference 0 cm Marybeth Thomas [facility] Internal Medicine Work Phone: 04-22-2006 07:46-0400 Head Occipital-frontal circumference 0 cm Nelly Forde [facility] Internal Medicine; [facility] Work Phone: 04-22-2006 07:46-0400 Height 175.26 cm Nelly Saxenasanta [facility] Internal Medicine Work Phone: 04-22-2006 07:46-0400 Pulse (Heart Rate) 88 /min Nelly Mahoneymonico [facility] Work Phone: Comment on above: Pattern: Regular 04-22-2006 07:46-0400 Respiratory Rate 20 /min Nelly Mahoneymonico [facility] Internal Medicine Work Phone: Comment on above: Pattern: Unlabored 04-22-2006 07:46-0400 Weight 73.03 kg Marybeth Thomas [facility] Internal Medicine Work Phone: Encounters Encounter Date Encounter Type Care Provider Facility Start: 05-29-2025 End: 05-29-2025 Karel Tesfaye MD Work Phone: [facility] Comment on above: Dystonic tremor Start: 03-11-2025 End: 03-11-[address] Marybeth Thomas DO Work Phone: -Laboratory Start: 03-11-2025 End: 03-11-2025 Patient encounter procedure Gayle Ravi -Laboratory Work Phone: Start: 03-11-2025 End: 03-11-2025 ambulatory Gayle Ravi Facility:[facility] Start: 09-10-2024 End: 09-10-2024 ambulatory Dean Castillo Facility:[facility] Start: 03-16-2024 End: 03-16-2024 Office outpatient visit 25 minutes Christine Tesfaye MD Work Phone: [facility] Comment on above: Dystonic tremor (Annette meagan Dx); Spasmodic torticollis; Neurogenic claudication Start: 12-16-2023 Telephone encounter Christine chong MD Work Phone: [facility] Comment on above: Orders Start: 12-08-2023 End: 12-08-2023 Office outpatient visit 40 minutes Christine Tesfaye MD Work Phone: [facility] Comment on above: Spasmodic torticolli s (Primary Dx); Dystonic tremor; 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) Start: 09-16-2023 Telephone encounter Ted HARRIS [facility] Comment on above: Prior Authorization Start: 09-08-2023 End: 09-08-2023 Office outpatient visit 25 minutes Christine Tesfaye MD Work Phone: [facility] Comment on above: Spasmodic torticolli s (Primary Dx); Dystonic tremor; Abnormal involuntary movements Start: 08-20-2023 End: 08-20-2023 ambulatory [facility] Work Phone: Start: 08-20-2023 End: 08-20-2023 Patient encounter procedure [facility]-Laboratory Work Phone: Start: 06-09-2023 End: 06-09-2023 Office outpatient visit 15 minutes Christine Tesfaye MD Work Phone: [facility] Comment on above: Spasmodic torticolli s (Primary Dx); Tremor Start: 05-16-2023 Refill Christine Tesfaye MD Work Phone: [facility] Comment on above: Tremor Start: 04-15-2023 Refill Christine Tesfaye MD Work Phone: [facility] Comment on above: Tremor Start: 03-22-2023 End: 03-22-2023 Office outpatient visit 25 minutes Christine Tesfaye MD Work Phone: [facility] Comment on above: Spasmodic torticolli [...] 30 minutes Christine Tesfaye MD Work Phone: [facility] Comment on above: Spasmodic torticolli s (Primary Dx); Tremor; Yifan disease Start: 12-23-2022 Marybeth Fearo n DO Work Phone: [facility] Start: 12-23-2022 End: 12-24-2022 Office outpatient visit 25 minutes Marybeth Martha DO Work Phone: [facility] Start: 11-25-2022 End: 11-25-2022 ambulatory [facility] Work Phone: Start: 11-25-2022 End: 11-25-2022 Patient encounter procedure [facility]-Laboratory Start: 11-11-2022 Refill Martha kramer DRIVER'S EDUCATION INSTRUCTOR - EDITORIAL CLERK Work Phone: [facility] Start: 09-17-2022 Refill Martha kramer DRIVER'S EDUCATION INSTRUCTOR - EDITORIAL CLERK Work Phone: [facility] Start: 08-26-2022 End: 08-26-[address] Marybeth Thomas Work Phone: [facility] Work Phone: Start: 08-26-2022 End: 08-26-[address] Marybeth Thomas Work Phone: [facility]-Laboratory Start: 08-25-2022 End: 08-25-2022 Marybeth Thomas DO Work Phone: [facility] Start: 08-20-2022 Telephone encounter Martha Harding nd DRIVER'S EDUCATION INSTRUCTOR - EDITORIAL CLERK Work Phone: [facility] Neuro Comment on above: Release of Informati on Start: 08-20-2022 ambulatory Marybeth Thomas DO Comp re[facility] Internal Med Start: 08-20-2022 End: 08-20-2022 Office outpatient visit 25 minutes Marybeth Thomas DO Work Phone: [facility] Start: 08-18-2022 Refill Martha Javier PRN - EDITORIAL CLERK Work Phone: [facility] [place] Start: 06-30-2022 End: 07-01-2022 Evaluation and management of inpatient Dr. Marybeth Thomas Work Phone: [facility]-Medical Surgical 3 Start: 06-30-2022 End: 07-01-[address] Marybeth Thomas Work Phone: [facility] Work Phone: Start: 06-25-2022 End: 06-25-[address] Marybeth Thomas Work Phone: [facility] Work Phone: Start: 06-25-2022 End: 06-25-[address] Marybeth Thomas Work Phone: [facility]-Nuclear Medicine, [facility] Start: 05-25-2022 End: 05-25-2022 ambulatory [facility] Work Phone: Start: 05-25-2022 End: 05-25-2022 Patient encounter procedure [facility]-Pulmonary Services/Neurology Start: 05-25-2022 Non-patient / Non-visit Dr. Walt Thomas Work Phone: [facility] Start: 05-18-2022 End: 05-18-2022 ambulatory [facility] Work Phone: Start: 05-18-2022 End: 05-18-2022 Patient encounter procedure [facility]-Laboratory Start: 05-13-2022 End: 05-13-2022 ambulatory [facility] Work Phone: Start: 05-13-2022 End: 05-13-2022 Patient encounter procedure [facility]-Cat Scan, [facility] Start: 04-12-2022 End: 04-12-2022 ambulatory [facility] Work Phone: Start: 04-12-2022 End: 04-12-2022 Patient encounter procedure [facility]-Laboratory, Specimen Start: 02-03-2022 End: 02-13-2022 Office outpatient [...] End: 08-03-2019 Lab Order Marybeth Thomas [facility] [employer] [facility] Start: 08-03-2019 End: 08-03-2019 Marybeth Martha DO Work Phone: [facility] Start: 08-02-2019 Review Marybeth Thomas [facility] Start: 08-02-2019 End: 08-02-2019 Office outpatient visit 25 minutes Marybeth Thomas [facility] Start: 07-13-2019 End: 07-13-2019 Office outpatient visit 5 minutes Marybeth Thomas [facility] Start: 07-13-2019 End: 07-13-2019 Annotation/Addendum Marybeth Thomas [facility] [employer] [facility] Start: 07-13-2019 End: 07-13-2019 Marybeth Martha DO Work Phone: [facility] Start: 04-16-2019 End: 04-16-2019 Phone Encounter Marybeth Thomas [facility] [employer] [facility] Start: 04-16-2019 End: 04-16-2019 Marybeth [...] End: 11-30-2018 Phone Encounter Marybeth Thomas [facility] [employer] [facility] Start: 11-30-2018 End: 11-30-2018 Marybeth Thomas DO Work Phone: [facility] Start: 11-30-2018 End: 11-30-2018 Office outpatient visit 15 minutes Marybeth Thomas [facility] Start: 10-26-2018 End: 10-26-2018 Office outpatient visit 25 minutes Marybeth Robbinson [facility] Start: 10-26-2018 Review Marybeth Thomas [facility] Internal Medicine Start: 10-13-2018 End: 10-13-2018 Phone Encounter Marybeth Thomas [facility] [employer] [facility] Start: 10-13-2018 End: 10-13-2018 Marybeth Thomas DO Work Phone: [facility] Start: 11-21-2017 End: 11-21-2017 Phone Encounter Marybeth Robbinson [facility] [employer] [facility] Start: 11-21-2017 End: 11-21-2017 Marybeth Thomas DO Work Phone: [facility] Start: 11-21-2017 End: 11-21-2017 Annotation/Addendum Marybeth Martha [facility] [employer] [facility] Start: 11-21-2017 End: 11-21-2017 Marybeth Thomas DO Work Phone: [facility] Start: 11-14-2017 End: 11-14-2017 Office outpatient visit 15 minutes Marybeth Martha [facility] Start: 10-07-2017 End: 10-07-2017 Phone Encounter Marybeth Robbinson [facility] [employer] [facility] Start: 10-07-2017 End: 10-07-2017 Marybeth Thomas DO Work Phone: [facility] Start: 10-05-2017 End: 10-05-2017 Office outpatient visit 25 minutes Marybeth Thomas [facility] Start: 08-01-2017 End: 08-01-2017 Phone Encounter Marybeth Thomas [facility] Grid Casting Machine Operator Helper al Medicine Start: 08-01-2017 End: 08-01-2017 Marybeth Thomas DO Work Phone: [facility] Start: 03-24-2017 End: 03-24-2017 Phone Encounter Marybeth Thomas [facility] Grid Casting Machine Operator Helper al Medicine Start: 03-24-2017 End: 03-24-2017 Marybeth Thomas DO Work Phone: [facility] Start: 11-24-2016 End: 11-24-2016 Office outpatient visit 15 minutes Marybeth Martha [facility] Start: 07-21-2016 End: 07-21-2016 Office outpatient visit 25 minutes Marybeth Robbinson [facility] Internal Medicine Start: 04-09-2016 End: 04-09-2016 Patient encounter procedure Marybethmariam Robbinson [facility] Start: 04-09-2016 End: 04-09-2016 Marybeth Thomas DO Work Phone: [facility] Start: 03-19-2016 End: 03-19-2016 Office outpatient visit 25 minutes Marybethmariam Thomas [facility] Start: 08-25-2015 End: 08-25-2015 Office outpatient visit 25 minutes Marybeth Martha [facility] Internal Medicine Start: 10-01-2014 End: 10-01-2014 Office outpatient visit 15 minutes Marybethmariam Robbinson [facility] Internal Medicine Start: 09-02-2014 End: 09-02-2014 Office outpatient visit 25 minutes Marybeth Martha [facility] Internal Medicine Start: 10-08-2013 End: 10-08-2013 Patient encounter procedure Marybeth Thomas [facility] Start: 10-08-2013 End: 10-08-2013 Marybeth Thomas DO Work Phone: [facility] Start: 01-01-2013 End: 01-01-2013 Patient encounter procedure Marybeth Martha [facility] Medicine Start: 01-01-2013 End: 01-01-2013 Marybeth Thomas DO Work Phone: [facility] Start: 10-31-2012 End: 10-31-2012 Patient encounter procedure Marybeth Martha [facility] Start: 10-31-2012 End: 10-31-2012 Marybeth Thomas DO Work Phone: [facility] Start: 10-25-2012 End: 10-25-2012 Prescription Refill Marybeth Thomas [facility] [employer] [facility] Start: 10-25-2012 End: 10-25-2012 Marybeth Thomas DO Work Phone: [facility] Start: 10-25-2012 End: 10-25-2012 Phone Encounter Marybeth Thomas [facility] [employer] [facility] Start: 10-25-2012 End: 10-25-2012 Marybeth Thomas DO Work Phone: [facility] Start: 10-23-2012 End: 10-23-2012 Office outpatient visit 25 minutes Marybeth Thomas [facility] Start: 10-20-2012 End: 10-20-2012 Patient encounter procedure Marybeth Thmoas [facility] Start: 10-20-2012 End: 10-20-2012 Marybeth Thomas DO Work Phone: [facility] Start: 07-14-2012 End: 07-14-2012 Office outpatient visit 25 minutes Marybeth Thomas [facility] Start: 06-21-2012 End: 06-21-2012 Annotation/Addendum Marybeth Thomas [facility] [employer] [facility] Start: 06-21-2012 End: 06-21-2012 Marybeth [...] End: 05-12-2011 Phone Encounter Marybeth Thomas [facility] [employer] [facility] Start: 05-12-2011 End: 05-12-2011 Marybeth [...] End: 06-24-2009 Phone Encounter Marybeth Thomas [facility] [employer] [facility] Start: 06-24-2009 End: 06-24-2009 Marybeth [...] End: 04-21-2006 Historical Summary Marybeth Thomas [facility] [employer] [facility] Start: 04-21-2006 End: 04-21-2006 Marybeth Thomas DO Work Phone: [facility] Patient encounter status John everett Martha DO Work Phone: [facility]; [facility] Work Phone: Patient encounter status Breana Jama PUNCH MACHINE HAND [facility]; [facility] Work Phone: Patient encounter status Leann Aquino LP N [facility]; [facility] Work Phone: Patient encounter status Kevin Barlow PUNCH MACHINE HAND [facility]; [facility] Work [...] End: 06-30-2022 Procedure Note: See Note; NOTES: [facility] Medical Records Department [address] [place] [address] Operative Report 06/30/22 1105 MR#: [id number] Acct: [id number] Name: VISHAL CISNEROS Rep #: [id number] : 1955 67 From: Dean Castillo MD PCP: Dr. Marybeth Thomas, DO Status:[facility] Location: [place] [address] Report of Operation Date of Procedure: 06/30/22 [...] as the penis and testicles. A 16 [place] catheter was placed into the bladder with [...] obturator nerve and then also below the squeezer operator nerve all the lymph nodes were [...] nerve and the left side beyond the squeezer operator nerve down further behind it cleaning [...] over to the right and left needle furniture delivery driver and suture ligated the dorsal vein [...] new catheter into the bladder, an 18 [place] table mountain tip catheter flushed the bladder and there [...] minimal and the drain was a 18 [place] Barcenas catheter. No other surgical drain was [...] End: 06-30-2022 Procedure Note: See Note; NOTES: [facility] Medical Records Department [address] [place] [address] Instructions for Home/Discharge Instructions 06/30/22 0734 MR#: [id number] Acct: [id number] Name: VISHAL CISNEROS Rep #: [id number] : 1955 67 From: Dean Castillo MD PCP: Dr. Marybeth Thomas DO Status:[place] [facility] [place] Instructions Diet Discharge Diet: No restrictions, [...] bag and Barcenas to large bag Drain: [place] Follow Up Care Please Follow Up With: [...] End: 06-26-2022 Procedure Note: See Note; NOTES: [facility] Imaging Services [address] [place] [address] Bone Scan Whole Body MR#: [id number] Acct: [id number] Name: VISHAL CISNEROS Rep #: [id number] : 1955 M 67 From: Patrick Mcclelland PCP: Dr. Marybeth Thomas DO Status: REG CLI Study: Bone Scan Whole Body Date of Exam: 06/25/22 Exam# [id number] Ordering Dr: Dean Castillo MD CLINICAL: 67-year-old [...] Dean Castillo MD; Dr. Marybeth Thomas DO Manager Sterile Processing: Signed Marybeth Thomas DO Work Phone: Start: 06-24-2022 End: 06-24-2022 [facility] Suzie Leiva [facility] Start: 05-25-2022 End: 05-26-2022 Procedure Note: See Note; NOTES: [facility] Cardiovascular Services [address] [place] [address] 12 Lead EKG 05/25/22 1550 MR#: [id number] Acct: [id number] Name: VISHAL CISNEROS Rep #: [id number] : 1955 67 From: Carlos Alberto Jackson [...] ECG Confirmed by RAFAELA GABRIEL, CARLOS ALBERTO ([id number]), editorial clerk ADRIAN TRUONG ([id number]) on 05/26/2022 9:32:09 AM Referred By: Dean Castillo Confirmed By:CARLOS ALBERTO JACKSON MD 05/26/2232 Date Carlos Alberto Jackson MD CC: Dr. Dean Castillo MD; Dr. Marybeth Thomas DO Signed Marybeth Thomas DO Work Phone: Start: 05-13-2022 Computed tomography of abdomen and pelvis with contrast Start: 05-13-2022 End: 05-13-2022 Procedure Note: See Note; NOTES: [facility] Imaging Services [address] [place] [address] Abdomen/Pelvis WITH Contrast MR#: [id number] Acct: [id number] Name: VISHAL CISNEROS Rep #: [id number] : 1955 M 67 From: Antonio Soriano MD PCP: Dr. Marybeth Thomas DO Status: REG CLI Study: Abdomen/Pelvis WITH Contrast Date of Exam: Exam# [id number] Ordering Dr: Dean Castillo MD STUDY: CT [...] Dean Castillo MD; Dr. Marybeth Thomas DO Manager Sterile Processing: Signed Marybeth Thomas DO Work Phone: Start: 04-23-2021 End: 04-23-2021 Comments: See Note; NOTES: [facility] Imaging Services [address] [place] [address] Lung Screening MR#: [id number] Acct: [id number] Name: VISHAL CISNEROS Rep #: [id number] : 1955 M 66 From: Efrain Sellers MD PCP: Dr. Marbyeth Thomas DO Status: REG CLI Study: Low Dose CT Lung Screening Date of Exam: 04/23 Exam# [id number] Ordering Dr: Marybeth Thomas DO EXAM: CT [...] reconstruction technique. This report was created using [employer] report generation technology. COMPARISON: None. FINDINGS: LUNGS [...] support , CC: Dr. Marybeth Thomas DO Manager Sterile Processing: Signed Marybeth Thomas DO Work Phone: Start: 09-13-2019 End: 09-14-2019 Abdomen Single View Comments: See Note; NOTES: [facility] Imaging Services [address] [place] [address] Abdomen Single View MR#: [id number] Acct: [id number] Name: VISHAL CISNEROS Rep #: [id number] : 1955 M 64 From: Patrick Stanton MD PCP: Marybeth Thomas DO Status: REG CLI Study: Abdomen Single View Date of Exam: 09/13/19 Exam# [id number] Ordering Dr: Dean Castillo MD STUDY: X-RAY [...] CC: Dean Castillo MD; Marybeth Thomas DO Manager Sterile Processing: Signed Marybeth Thomas Start: 12-14-2018 End: 12-15-2018 Chest PA and Lateral Comments: See Note; NOTES: [facility] Imaging Services [address] [place] [id number] Chest PA and Lateral MR#: [id number] Acct: [id number] Name: VISHAL CISNEROS Rep #: [id number] : 1955 M 63 From: Rafa Saha DO PCP: Marybeth Thomas DO Status: REG CLI Study: Chest PA and Lateral Date of Exam: 12/14/18 Exam# [id number] Ordering Dr: Marybeth Thomas DO STUDY: X-RAY [...] Service support , CC: Marybeth Thomas DO Manager Sterile Processing: Signed Marybeth Thomas Work Phone: Start: 11-24-2017 End: 11-24-2017 Surgery Visit Report Comments: See Note; NOTES: [facility] [facility] [address] [place] [address]. [address] [place], [place] [address] OFFICE VISIT Date of Service: 11/24/17 MR#: [id number] Acct: [id number] Name: VISHAL CISNEROS Rep #: [id number] : 1955 Provider: Darius Wang MD Age/Sex: 62/M Location: [facility] Status: Signed Intake Vital Signs11/24/17 Height 5 ft 10 in 11/24/17 Weight: 154 lb Intake Visit Reasons: GALLBLADDER POLYP Immigration Case Manager Required: No Is patient in pain?: No Allergies hydrocodone bitartrate [From Vicodin] Adverse Reaction (Verified 11/24/17 08:10) Other Medications propranolol 40 mg tablet 40 mg PO BID 11/24/17 [History Confirmed 11/24/17] simvastatin 40 mg tablet 40 mg PO QPM 11/24/17 [History Confirmed 11/24/17] trihexyphenidyl 2 mg tablet 2 mg PO TID tab 11/24/17 [History Confirmed 11/24/17] [facility] Anxiety (Acute) Back pain [...] he eats. Gallbladder ultrasound was obtained it [facility] on 11/18/2017. This came back showing [...] person, oriented to place, oriented to time [facility] Head: normocephalic, atraumatic Ears: external ears [...] MD Cosigner Signature: Date (if applicable) CC: MACHINE GROUP LEADERBerlin Del Angel; Dean Castillo MD; Marybeth Jarrellmohsen Robbinson Start: 11-18-2017 End: 11-19-2017 Gallbladder Comments: See Note; NOTES: [facility] Imaging Services [address] [place] [address] Gallbladder MR#: [id number] Acct: [id number] Name: VISHAL CISNEROS Rep #: [id number] : 1955 M 62 From: Thaddeus Recio DO PCP: Marybeth Thomas DO Status: REG CLI Study: Gallbladder Date of Exam: 11/18/17 Exam# [id number] Ordering Dr: Pilar Del Angel MACHINE GROUP LEADER-C STUDY: ABDOMINAL ULTRASOUND - RIGHT UPPER QUADRANT [...] CC: JACOB Del Angel; Marybeth Thomas DO Manager Sterile Processing: Signed Pilar Del Angel Start: 10-15-2014 End: 10-17-2014 Abdomen Single View Comments: See Note; NOTES: [facility] Imaging Services [address] [place] [address] Radiology Report MR#: [id number] Acct: [id number] Name: VISHAL CISNEROS Rep #: [id number] : 1955 M 59 From: Arturo Bullard DO PCP: Beryl Fermin DO Status: REG CLI Study: Abdomen Single View Date of Exam: 10/15/14 Exam# [id number] Ordering Dr: Dean Castillo MD STUDY: X-RAY [...] Arturo Bullard DO at 9:45 EDT Tel [phone], Service support [phone], RAD/Abdomen Single View IMPRESSION: No acute intra-abdominal process. Electronically Signed: Arturo Bullard DO at 9:45 EDT Tel [phone], Service support [phone], CC: Beryl Fermin DO; Dean Castillo MD Manager Sterile Processing: Signed Marybeth Thomas Start: 04-02-2014 End: 04-03-2014 Abdomen Single View Comments: See Note; NOTES: [facility] Imaging Services [address] [facility] [place] [address] Radiology Report MR#: [id number] Acct: [id number] Name: VISHAL CISNEROS Rep #: [id number] : 1955 M 59 From: Oscar Molina MD PCP: Beryl Fermin DO Status: REG CLI Study: Abdomen Single View Date of Exam: 04/02/14 Exam# [id number] Ordering Dr: Dean Castillo MD STUDY: X-RAY [...] Oscar Molina MD at 15:22 EDT Tel [phone], Service support [phone], CC: Beryl Fermin DO; Dean Castillo MD Manager Sterile Processing: Signed Selene Castillo [facility] Work Phone: Start: 03-23-2014 End: 03-23-2014 Operative Report Comments: See Note; NOTES: [facility] Medical Records Department [address] [place] [address] Operative Report MR#: [id number] Acct: [id number] Name: VISHAL CISNEROS Rep #: [id number] : 1955 59 From: Dean Castillo MD PCP: Beryl Fermin DO Status: [facility] DATE OF SERVICE: 03/22/2014 DATE OF SERVICE: [...] KUB. Dean Castillo MD T: NTS JOB: [id number] 03/23/14 1202 <Electronically signed by eDan Castillo MD> Date Dean Castillo MD CC: Beryl Fermin DO; Dean Castillo MD Date Dictated: 03/22/141303 Date Transcribed: 03/22/141303 Manager Sterile Processing: Signed Selene Castillo [facility] Work Phone: Start: 03-22-2014 End: 03-22-2014 Operative Report Comments: See Note; NOTES: [facility] Medical Records Department [address] [place] [address] Operative Report 03/22/14 1301 MR#: [id number] Acct: [id number] Name: VISHAL CISNEROS Rep #: [id number] : 1955 59 From: Dean Castillo MD PCP: Beryl Fermin DO Status: REG SDC Y Location: [place] [address] Report of Operation Date of Procedure: 03/22/14 [...] DO; Dean Castillo MD Signed Selene Castillo [facility] Work Phone: Start: 03-22-2014 End: 03-22-2014 Discharge Instruction Comments: See Note; NOTES: [facility] Medical Records Department [address] [place] [address] Instructions for Home/Discharge Instructions 03/22/14 1223 MR#: [id number] Acct: [id number] Name: VISHAL CISNEROS Rep #: [id number] : 1955 59 From: Dean Castillo MD [...] Date Dean Castillo MD CC: Beryl Butterfield [facility] Work Phone: Start: 03-22-2014 End: 03-22-2014 Abdomen Single View Comments: See Note; NOTES: [facility] Imaging Services [address] [place] [address] Radiology Report MR#: [id number] Acct: [id number] Name: VISHAL CISNEROS Rep #: [id number] : 1955 M 59 From: Arturo Bullard DO PCP: Beryl Fermin DO Status: [facility] Study: Abdomen Single View Date of Exam: 03/22/14 Exam# [id number] Ordering Dr: Dean Castillo MD STUDY: X-RAY [...] Arturo Bullard DO at 16:17 EDT Tel [phone], Service support [phone], RAD/Abdomen Single View IMPRESSION: Question mild ileus. This obscures the visualization of the right renal calcifications. Electronically Signed: Arturo Bullard DO at 16:17 EDT Tel [phone], Service support [phone], CC: Beryl Fermin DO; Dean Castillo MD Manager Sterile Processing: Signed Selene Castillo [facility] Work Phone: Start: 03-18-2014 End: 03-18-2014 12 lead ECG Comments: See Note; NOTES: [facility] Cardiovascular Services [address] [place] [address] [place] [facility] 03/15/14 1015 MR#: [id number] Acct: [id number] Name: VISHAL CISNEROS Rep #: [id number] : 1955 59 From: Carlos Alberto Jackson MD Attending Dr: Dean Castillo MD Status: [facility] [place]ing Dr: Dean Castillo MD Date: 03/15/14 Location: [facility] Sex: M C Admitted: Test Reason : Blood Pressure : / mmHG Vent. Rate : 084 BPM Atrial Rate : 084 BPM P-R Int : 138 ms QRS Dur : 076 ms QT Int : 358 ms P-R-T Axes : 006 004 020 degrees QTc Int : 423 ms Normal sinus rhythm Normal ECG Confirmed by RAFAELA GABRIEL, CARLOS ALBERTO ([id number]), editorial clerk LORRAINE KILLIAN ([id number]) on 2013 1:34:28 PM Referred By: ORLANDO CASTILLO Confirmed By:CARLOS ALBERTO JACKSON MD 03/18/14 1334 Date Carlos Alberto Jackson MD CC: Beryl Fermin DO; Carlos Alberto Jackson MD Date Dictated: 03/15/14 1015 Date Transcribed: 03/15/14 1015 Manager Sterile Processing: Signed Marybeth Thomas Start: 03-16-2014 End: 03-17-2014 Abdomen/Pelvis without Cont Comments: See Note; NOTES: [facility] Imaging Services [address] [place] [address] CAT Scan Report MR#: [id number] Acct: [id number] Name: VISHAL CISNEROS Rep #: [id number] : 1955 M 59 From: Kirby Carr MD PCP: Beryl Fermin DO Status: REG CLI Study: Abdomen/Pelvis without Cont Date of Exam: 03/16/14 Exam# [id number] Ordering Dr: Dean Castillo MD STUDY: CT [...] umbilical hernia and appendicoliths. Electronically Signed: Kirby Carr MD at 23:58 EDT , Service support [phone], CC: Beryl Fermin DO; Dean Castillo MD Manager Sterile Processing: Signed Selene Castillo [facility] Work Phone: Start: 03-11-2014 End: 03-11-2014 Abdomen Single View Comments: See Note; NOTES: [facility] Imaging Services [address] [place] [address] Radiology Report MR#: [id number] Acct: [id number] Name: VISHAL CISNEROS Rep #: [id number] : 1955 M 59 From: Arturo Bullard DO PCP: Beryl Fermin DO Status: REG CLI Study: Abdomen Single View Date of Exam: 03/11/14 Exam# [id number] Ordering Dr: Dean Castillo MD STUDY: X-RAY [...] Arturo Bullard DO at 18:51 EDT Tel [phone], Service support [phone], CC: Beryl Fermin DO; Dean Castillo MD Manager Sterile Processing: Signed Selene Castillo [facility] Work Phone: Plan of Treatment Date Care Activity Detail Author Start: 03-25-2025 COVID-19 Vaccine ( season) COVID-19 Vaccine ( season) [facility] Start: 03-25-2025 Influenza vaccination Influenza Vacc ine (#1) [facility] Start: 02-13-2025 End: 02-13-2025 Patient encounter procedure 02/13/2025 10:00 AM EDT Office Visit [facility] [address] [facility] [address] [place] [address] Christine Tesfaye MD [address] [facility] [address] [place], [place] [id number] [facility] Start: 03-25-2024 Influenza vaccination S [facility] Start: 03-16-2024 End: 03-16-2024 Patient encounter procedure 03/16/2024 9:00 AM EDT Office Visit [facility] [address] [place] [phone] Christine Tesfaye MD [address] [place] [address] [facility] Start: 12-08-2023 End: 12-08-2023 Patient encounter procedure 12/08/2023 10:00 AM EDT Office Visit [facility] [address] [place] [phone] Christine Tesfaye MD [address] [facility] [address] [place] [address] [facility] Start: 09-08-2023 End: 09-08-2023 Telemedicine consultation with patient 09/08/2023 7:30 AM EST Telemedicine [facility] [address] [facility] [address] [place] [phone] Christine Tesfaye MD [address] [facility] [address] [place] [address] [facility] Start: 06-09-2023 End: 06-09-2023 Telemedicine consultation with patient 06/09/2023 7:30 AM EST Telemedicine [facility] [address] [facility] [address] [place] [phone] Christine Tesfaye MD [address] [facility] [address] [place] [address] [facility] Start: 03-25-2023 COVID-19 Vaccine ( season) COVID-19 Vaccine ( season) [facility] Start: 03-25-2023 Influenza vaccination Influenza Vacc ine (#1) [facility] Start: 03-22-2023 End: 03-22-2023 Telemedicine consultation with patient 03/22/2023 7:30 AM EDT Telemedicine [facility] [address] [facility] [address] [place] [phone] Christine Tesfaye MD [address] [facility] [address] [place] [address] [facility] Start: 01-31-2023 Procedure Education Com [...] Yifan disease Expected: 12/31/2022 (Approximate), Expires: 01/01/2024 [facility] Comment on above: Expected: 12/31/2022 (Approximate), Expires: 01/01/2024 Start: 12-31-2022 End: 01-01-2024 Copper, serum Copper, serum 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 Expected: 12/31/2022 (Approximate), Expires: 01/01/2024 [facility] Comment on above: Expected: 12/31/2022 (Approximate), Expires: 01/01/2024 Start: 12-31-2022 End: 01-01-2024 Hepatic function 2000 panel - Serum or Plasma Hepatic function panel 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 Expected: 12/31/2022 (Approximate), Expires: 01/01/2024 [facility] Work Phone: Comment on above: Expected: 12/31/2022 (Approximate), Expires: 01/01/2024 Start: 12-31-2022 End: 12-31-2022 Patient encounter procedure 12/31/2022 Office Visit Neurology Christine Tesfaye MD [address] [place] [address] [facility] Start: 12-23-2022 Procedure Education Com [...] Medicine Work Phone: Start: 07-01-2022 Patient discharge [facility] Start: 07-01-2022 Inhalation therapy procedure [facility] Start: 06-30-2022 End: 06-30-2022 Following clinical pathway protocol [facility] Start: 06-30-2022 Application of intermittent pneumatic compression device [facility] Start: 06-30-2022 Admission procedure [facility] Start: 06-30-2022 Oxygen therapy [facility] Start: 06-30-2022 Anes xtrprtl lwr abd w/urinary tract rad prstect ANESTH REMOVAL OF PROSTATE [facility] Start: 06-30-2022 Inguinofem lmphadec supfc w/pel lmphadec REMOVE GROIN LYMPH NODES [facility] Start: 06-30-2022 Laps prostect retropubic rad w/nrv sparing robot LAPS SURG [id number] RPBIC RAD [facility] Start: 06-30-2022 Deep breathing and coughing exercises [facility] Start: 06-30-2022 Incentive spirometry [facility] Start: 06-30-2022 Measuring intake and output [facility] Start: 06-30-2022 Patient education [facility] Start: 06-30-2022 Provision of activit y privileges [facility] Start: 06-30-2022 Taking patient vital signs [facility] Start: 06-30-2022 Vital signs measurements [facility] Start: 06-30-2022 [facility] Start: 03-25-2022 Influenza vaccination Influenza Vacc ine (#1) [facility] Start: 02-01-2022 PSA TOTAL +%FREE 840 363 (96011) [facility]; [facility] Work [...] Vaccine (4 - Booster for Moderna series) [facility] Start: 09-02-2021 COVID-19 Vaccine (4 - Moderna series) COVID-19 Vaccine (4 - Moderna series) [facility] Start: 06-01-2021 Procedure Education Com prehensive Internal [...] procedure 01/02/2021 Office Visit Neurology Martha Guillory, DRIVER'S EDUCATION INSTRUCTOR - EDITORIAL CLERK [address] [place], [place] [phone] [facility] Start: 12-01-2020 Procedure Education Com [facility]; [facility] Work Phone: Start: 12-01-2020 Provider Instruction s for Treatment [facility]; [facility] Work Phone: Start: 12-01-2020 25 hydroxy includes fractions if performed CALCIFEDIOL (01861) [facility]; [facility] Work Phone: Start: 09-01-2020 Procedure Education [facility]; [facility] Work Phone: Start: 09-01-2020 Provider Instruction s for Treatment [facility]; [facility] Work Phone: Start: 09-01-2020 Assay of thyroid stimulating hormone tsh TSH (THYROID STIMULATING HORMONE) (35571) [facility]; [facility] Work Phone: Start: 09-01-2020 TSH Qn TSH (THYROID STIMULATING HORMONE) (22347) [facility]; [facility] Work Phone: Start: 09-01-2020 25 hydroxy includes fractions if performed CALCIFEDIOL (13902) [facility]; [facility] Work Phone: Start: 09-01-2020 Urine albumin quantitative MICROALBUMIN: CREATININE RATIO (35178) AND (53785) [facility]; [facility] Work Phone: Start: 09-01-2020 Comprehensive metabo lic panel METABOLIC PANEL, COMPREHENSIVE (30663) [facility]; [facility] Work Phone: Start: 09-01-2020 Lipoprotein blood qu an numbers & subclasses NMR Profile (53721) [facility]; [facility] Work Phone: Start: 09-01-2020 Blood count complete auto&auto difrntl wbc CBC with auto diff (92700) [facility]; [facility] Work Phone: Start: 09-01-2020 HbA1c (Bld) [Mass fraction] HGB A1C (52575) [facility]; [facility] Work Phone: Start: 09-01-2020 Hemoglobin glycosyla judd a1c HGB A1C (48420) [facility]; [facility] Work Phone: Start: 04-30-2020 Procedure Education Com [facility] Work Phone: Start: 04-30-2020 Provider Instruction s for Treatment [facility] Work Phone: Start: 04-30-2020 Lipoprotein blood qu an numbers & subclasses NMR Profile (39765) [facility] Work Phone: Start: 04-30-2020 25 hydroxy includes fractions if performed CALCIFEDIOL (80550) [facility] Work Phone: Start: 04-30-2020 TSH Qn TSH (14670) [facility] Work Phone: Start: 04-30-2020 Urnls dip stick/tabl et reagent auto microscopy URINALYSIS, W/ MICRO (73282) [facility] Work Phone: Start: 04-30-2020 Urine albumin quantitative MICROALBUMIN: CREATININE RATIO (34523) AND (02529) [facility] Work Phone: Start: 04-30-2020 Comprehensive metabo lic panel METABOLIC PANEL, COMPREHENSIVE (58256) [facility] Work Phone: Start: 04-30-2020 Blood count complete auto&auto difrntl wbc CBC W/AUTO DIFF WBC (74223) [facility] Work Phone: Start: 04-30-2020 Hepatic function panel [facility] Work Phone: Start: 01-28-2020 Procedure Education Com [facility] Work Phone: Start: 01-28-2020 Provider Instruction s for Treatment [facility] Work Phone: Start: 01-28-2020 Basic metabolic pane l calcium total Metabolic Panel, Basic (04425) [facility] Work Phone: Start: 01-09-2020 Hepatic function panel HEPATIC FUNCTION PANEL (26337) [facility] Work Phone: Start: 01-09-2020 [...] 25 hydroxy includes fractions if performed CALCIFIDIOL (70609) VIT D 25 [facility] Work Phone: Start: 03-29-2019 TSH Qn TSH (88186) [facility] Work Phone: Start: 03-29-2019 Urnls dip stick/tabl et reagent auto microscopy URINALYSIS, W/ MICRO (30672) [facility] Work Phone: Start: 03-29-2019 Urine albumin quantitative MICROALBUMIN: CREATININE RATIO (93754) AND (68649) [facility] Work Phone: Start: 03-29-2019 Comprehensive metabo lic panel METABOLIC PANEL, COMPREHENSIVE (52757) [facility] Work Phone: Start: 03-29-2019 Blood count complete auto&auto difrntl wbc CBC W/AUTO DIFF WBC (69835) [facility] Work Phone: Start: 03-29-2019 Lipoprotein blood qu an numbers & subclasses NMR Profile (85528) [facility] Work Phone: Start: 03-29-2019 HbA1c (Bld) [Mass fraction] HgA1C , Office (65290) [facility] Work Phone: Start: 03-29-2019 Glucose [Mass/Vol] Blood Gluco se , Office (75243) [facility] Work Phone: Start: 2019 [...] Start: 11-30-2018 Protein mass conc NMR Profile (12240 ) [facility] Work Phone: Start: 11-30-2018 Hepatic function panel [facility] Work Phone: Start: 10-26-2018 Procedure Education Com [facility] Work Phone: Start: 10-26-2018 Provider Instruction s for Treatment [facility] Work Phone: Start: 10-26-2018 25 hydroxy includes fractions if performed CALCIFIDIOL (57139) VIT D 25 [facility] Work Phone: Start: 10-26-2018 Lipoprotein blood qu an numbers & subclasses [facility] Work Phone: Start: 10-26-2018 Hemoglobin A1c/Hemoglobin.total mass fraction (Bld) HGB A1C (84811) [facility] Work Phone: Start: 10-26-2018 Thyrotropin Qn TSH (THYROID STIMULATING HORMONE) (96141) [facility] Work Phone: Start: 10-26-2018 Urine albumin quantitative MICROALBUMIN: CREATININE RATIO (54344) AND (14148) [facility] Work Phone: Start: 10-26-2018 Comprehensive metabo lic panel METABOLIC PANEL, COMPREHENSIVE (69736) [facility] Work Phone: Start: 10-26-2018 Protein mass conc Compr e[facility] Work Phone: Start: 10-26-2018 Blood count complete auto&auto difrntl wbc CBC with auto diff (52976) [facility] Work Phone: Start: 10-13-2018 Assay of prostate specific antigen total [facility] Work Phone: Start: 10-13-2018 25 hydroxy includes fractions if performed [facility] Work Phone: Start: 10-13-2018 Assay of thyroid stimulating hormone tsh [facility]; [facility] Work Phone: Start: 10-13-2018 Thyrotropin Qn TSH (73821) [facility] Work Phone: Start: [...] Work Phone: Start: 10-05-2017 Thyrotropin Qn TSH (37486) [facility] Work Phone: Start: [...] Work Phone: Start: 03-24-2017 Thyrotropin Qn TSH (22054) [facility] Work Phone: Start: 03-24-2017 Urine albumin quantitative [facility] Work Phone: Start: 03-24-2017 Urinalysis qual/semiquant except immunoassays [facility] Work Phone: Start: 03-24-2017 Blood count manual c ell count each [facility] Work Phone: Start: 03-24-2017 Hemoglobin A1c/Hemoglobin.total mass fraction (Bld) HGB A1C (82798) [facility] Work Phone: Start: 03-24-2017 Hemoglobin glycosyla judd a1c [facility]; [facility] Work Phone: Start: 03-24-2017 Lipid panel [facility] Work Phone: Start: 03-24-2017 Assay of prostate specific antigen total [facility] Work Phone: Start: 03-24-2017 Protein mass conc PSA (PROSTAT E SPECIFIC ANTIGEN) (87516) [facility] Work Phone: Start: 03-24-2017 25 hydroxy includes fractions if performed [facility] Work Phone: Start: 03-24-2017 Comprehensive metabo lic panel [facility] Work Phone: Start: 03-19-2017 Pneumococcal Vaccine : 50+ Years (2 of 2 - PCV) Pneumococcal Vaccine: 50+ Years (2 of 2 - PCV) [facility] Start: 03-19-2017 Pneumococcal Vaccine : 65+ Years (2 - PCV) Pneumococcal Vaccine: 65+ Years (2 - PCV) [facility] Start: 03-19-2017 Pneumococcal Vaccine : 65+ Years (2 of 2 - PCV) Pneumococcal Vaccine: 65+ Years (2 of 2 - PCV) [employer] Start: 11-24-2016 Procedure Education Com prehensive Internal [...] Work Phone: Start: 07-21-2016 Thyrotropin Qn TSH (16029) [facility] Work Phone: Start: [...] mass fraction (Bld) Hemoglobin Glyclated (HGB A1C) (75473) [facility] Work Phone: Start: 08-25-2015 [...] (1 of 3 - Risk 3-dose series) [facility] Start: 2014 RSV Immunization age d 60 or older (1 - 1-dose 60+ series) RSV Immunization aged 60 or older (1 - 1-dose 60+ series) [facility] Start: 2014 RSV Immunization for Adults (1 - Risk 60-74 years 1-dose series) RSV Immunization for Adults (1 - Risk 60-74 years 1-dose series) [facility] Start: 10-08-2013 Assay of thyroid stimulating hormone tsh [facility]; [facility] Work Phone: Start: 10-08-2013 Thyrotropin Qn TSH (07507) [facility] Work Phone: Start: 10-08-2013 [...] Work Phone: Start: 10-31-2012 Patient Education Compr [facility] Work Phone: Start: 10-31-2012 Assay [...] 06-21-2012 Thyrotropin Qn TSH (THYROID STIMULATING HORMONE) (76713) [facility] Work Phone: Start: 06-21-2012 [...] mass conc PSA (PROSTAT E SPECIFIC ANTIGEN) (80980) [facility] Work Phone: Start: 05-12-2011 Blood count manual c ell count each [facility] Work Phone: Start: 05-12-2011 Urinalysis qual/semiquant except immunoassays [facility] Work Phone: Start: 05-12-2011 Assay of thyroid stimulating hormone [facility] Work Phone: Start: 05-12-2011 Thyrotropin Qn TSH (THYROID STIMULATING HORMONE) (73706) [facility] Work Phone: Start: 05-12-2011 [...] Work Phone: Start: 10-24-2009 Thyrotropin Qn TSH (01011) Comprehe [facility] Work Phone: Start: [...] Protein mass conc LIPOPROTEIN, BLD, BY NMR (95792) [facility] Work Phone: Start: 06-24-2009 [...] f 2) Zoster Vaccines (1 of 2) [facility] Start: 1994 Diabetes [address] Diabetes [address] [facility] Work Phone: Start: 1973 DTaP/Tdap/Td vaccine (1 - Tdap) DTaP/Tdap/Td vaccine (1 - Tdap) [facility] Work Phone: Start: 1973 DTaP/Tdap/Td Vaccine s (1 - Tdap) DTaP/Tdap/Td Vaccines (1 - Tdap) [facility] Start: 1973 Hepatitis A Vaccines (1 of 2 - Risk 2-dose series) Hepatitis A Vaccines (1 of 2 - Risk 2-dose series) [facility] Start: 02-06-1972 Hepatitis C screening Hepatitis C Sc reening [facility] Start: 1966 Depression Screening Depression Scre ening [facility] Start: 02-06-1964 Lipid panel Lipid screen [facility] Work Phone: Start: 02-06-1960 Pneumococcal Vaccine : 65+ Years (1 - PCV) Pneumococcal Vaccine: 65+ Years (1 - PCV) [facility] Start: 1954 COVID-19 Vaccine (#1) COVID-19 Vacci ne (#1) [facility] Start: 1954 Abdominal aortic aneurysm screening AAA screen [facility] Work Phone: Start: 1954 Hepatitis B Vaccines (1 of 3 - 3-dose series) Hepatitis B Vaccines (1 of 3 - 3-dose series) [facility] Start: 1954 Hepatitis C screening Hepatitis C sc reen [facility] Work Phone: Start: 1954 Lipid panel Lipid Panel [facility] Start: 1954 Screening for malign ant neoplasm of colon [facility] Patient referral [facility] Work Phone: End: 11-20-2020 XR CERVICAL SPINE W OBLIQUES FLEXION AND EXTENSION XR CERVICAL SPINE W OBLIQUES FLEXION AND EXTENSION Imaging Routine Once for 1 Occurrences starting 11/20/2020 until 11/20/2020 [facility] Work Phone: Comment on above: Once for [...] Immunization Date Immunization Notes Care Provider [facility] 07-01-2022 influenza, injectabl e, quadrivalent, preservative free [facility] 07-01-2022 influenza, seasonal, injectable Dr. Marybeth Thomas Work Phone: [facility] 07-01-2022 influenza virus vaccine, unspecified formulation Christine Tesfaye MD Work Phone: [facility] 10-30-2020 COVID-19 (Moderna) Marybeth Thomas DO Work Phone: [facility]; [facility] Work Phone: 10-01-2020 COVID-19 (Moderna) Marybeth Thomas DO Work Phone: [facility] Work Phone: 03-19-2016 pneumococcal polysaccharide vaccine, 23 valent Marybeth Thomas [facility] Work Phone: Comment on above: Site: Deltoid (Left) [id number] monzonN Payers Date Payer Category Payer Self-pay [id number] 2021 [employer] Maximo garcia [facility] Care - [facility] [place] [id number] 2021 Unknown 2019 Unknown [id number] 2016 Unknown [id number] 2015 Unknown [employer] [id number] 2015 Unknown [id number] 00 2013 Unknown [id number] 2010 Unknown [id number] 2009 Unknown [id number] 2005 Unknown [id number] 1954 Unknown [id number] Medicare MEDICARE A ONLY [id number] Unknown [id number] Unknown [id number] Unknown [id number] Unknown [id number] Social History Date Type Detail Facility [...] smoking status NHIS Current every day smoker [facility] Start: 11-20-2020 End: 12-08-2023 Tobacco use and exposure Never used [facility] Start: 11-20-2020 End: 03-16-2024 Alcohol intake Ex-drinker (finding) [facility] Work Phone: Start: 1955 Sex Assigned At Not on file S [employer] Work Phone: Start: 09-06-2019 End: 07-01-2022 Tobacco smoking status NHIS Unknown if ever smoked [facility] Start: 09-06-2019 Cigarettes [facility] Start: 1955 Sex Assigned At Male W [facility] Start: 12-31-2022 End: 03-16-2024 Gender identity Not on file [facility] Start: 12-21-2022 End: 03-22-2023 Exposure to SARS-CoV-2 (event) Not sure [facility] History of tobacco use Cigarette Smoker [facility] Start: 02-22-2022 Sex Male (finding) [facility] alth Medical Equipment Procedure Code Equipment Code [...] Start: 06-30-2022 Ligation clip, synthetic polymer, non-bioabsorbable ()[id number] FDA Start: 06-30-2022 STENT,URETERAL 6 FR [...] Assessment Result Facility 07-01-2022 Functional status Activity [facility] Work Phone: 11-20-2020 LP-IR Score 70 Comprehensive [...] component of a physician's clinical assessment. Test(s) 957117-BPO-D ; 067527-GTP-W; 823061-Yxylfqhhnizaa; 605392-Dbrwjpvglxc, Total; 247112-FXS-Q (Total); 730825-Tngnx LDL-P; 397610-XUZ Size; 895899-HN-LK Scorewas developed and its performance characteristics determinedby [employer]. It has not been cleared or approved by the Foodand Drug Administration.PATIENT WAS FASTINGPERFORMED BY: BN [employer] [id number] BY: LabFooPetsHackensack University Medical CenterFzxsgv2262 [facility] [id number] 04-30-2020 LP-IR Score 71 [facility]; [facility] Work Phone: Comment on [...] component of a physician's clinical assessment. Test(s) 395922-FYV-L ; 046390-VDO-F; 888420-Zrxrbljakpjag; 551861-Trlismikpwt, Total; 834589-WXC-A (Total); 706554-Ugbeu LDL-P; 179006-CBL Size; 880987-AR-KR Scorewas developed and its performance characteristics determinedby [employer]. It has not been cleared or approved by the Foodand Drug Administration.PATIENT WAS FASTINGPERFORMED BY: [employer] [address] [id number] BY: [employer] CenterTetqfj6780 [facility] [id number] 12-27-2019 LP-IR Score 72 [facility] Work Phone: Comment on above: INSULIN RESISTANCE [...] component of a physician's clinical assessment. Test(s) 262965-JJT-K ; 881827-LSX-Q; 255699-XLV-M; 906990-Micihkutssxrw; 839758-Fcnzimgymdp, Total; 659985-MIA-D (Total);038665-Muogo LDL-P; 052707-SVP Size; 945098-XR-UQ Scorewas developed and its performance characteristics determinedby [employer]. It has not been cleared or approved by the Foodand Drug Administration.PATIENT WAS FASTINGPERFORMED BY: [employer] Pyirpiysvt6800 [facility] [id number] BY: [employer] CenterKyvvxz9056 [facility] [id number] 07-13-2019 LP-IR Score 77 [facility] Work Phone: Comment on above: INSULIN RESISTANCE [...] component of a physician's clinical assessment. Test(s) 428133-SWR-U ; 545452-AIT-X; 561434-UKW-O; 591250-Zhdppxauslrbm; 640966-Rhhpnvxswvn, Total; 817292-URM-S (Total);700410-Eewyr LDL-P; 816379-DRI Size; 837156-FI-ZV Scorewas developed and its performance characteristics determinedby [employer]. It has not been cleared or approved by the Foodand Drug Administration.PATIENT WAS FASTINGPERFORMED BY: [employer] Vjgmvgnrln0461 [facility] [id number] BY: [employer] Nqcsnc1295 [facility] [id number] 10-26-2018 LP-IR Score 84 [facility] Work Phone: Comment on above: INSULIN RESISTANCE [...] andDrug Administration. PATIENT WAS FASTINGP ERFORMED BY: [employer] [place] [address] [facility] [id number] BY: CAROLA [employer] Llhpqo5003 [facility] [id number] Mental Status Date Assessment Result Facility 07-01-2022 Cognitive function Voice/Name [facility] Work Phone: Clinical Notes 10-21-2021 to 05-31-2025 [...] appointment, please schedule when he calls back. [facility] 05-31-2025 Miscellaneous Notes Lm for patient to [...] Next ov- n/a documented in this encounter [facility] 05-30-2025 Telephone encounter Note Lm for patient to call the office back, patient is over due for a follow up. In order to refill medication he needs to come in for an appointment, please schedule when he calls back. [facility] 05-30-2025 Miscellaneous Notes Lm for patient to [...] Next ov- n/a documented in this encounter [facility] 05-29-2025 Telephone encounter Note Lm for patient to call the office back, patient is over due for a follow up. In order to refill medication he needs to come in for an appointment, please schedule when he calls back. [facility] 05-29-2025 Miscellaneous Notes Lm for patient to call the office back, patient is over due for a follow up. In order to refill medication he needs to come in for an appointment, please schedule when he calls back. Last ov- 03/16/24 Next ov- n/a documented in this encounter [facility] 05-29-2025 Telephone encounter Note Last ov- 03/16/24 Next ov- n/a [facility] 03-16-2024 History of Present illness Narrative Images from the original note were not included. [facility] [address] [place] [address] [facility] [address] Dept: [phone] Dept Loc: [phone] Visit type: Established Patient Reason for Visit: [...] 2 times every day, Disp: , Rfl: Ivgfuriysge-Uzropmjwy-Ykmros (Trelegy Ellipta) 200-62.5-25 MCG/ACT aerosol powder , [...] for studies. @SIGNATURE@ documented in this encounter [facility] 12-20-2023 Telephone encounter Note Order has been faxed [facility] 12-20-2023 Miscellaneous Notes Order has been faxed Windy has been notified the pvr has been ordered and will be faxed to new site I ordered an arterial PVR, it's in the cardiovascular section of [facility]. I am fine with him doing it at [place] Patient does not have a ct order. Name of caller: Windy Contact phone number: [phone] Relationship to Patient: spouse/SO Provider: Dr. Tesfaye Practice: [facility] Chief Complaint/Reason for Call: Windy states she would like the order for the CT scan for the patient to be sent to [facility]. Windy did not provide fax number but the phone number to [facility] is . Windy states she would like to be notified once sent. Please advise. Best time of day caller can be reached: any Patient advised that office/PCP has 24-48 business hours to return their call: Yes documented in this encounter [facility] 12-20-2023 Telephone encounter Note Windy has been notified the pvr has been ordered and will be faxed to new site [facility] 12-16-2023 Telephone encounter Note I ordered an arterial PVR, it's in the cardiovascular section of [facility]. I am fine with him doing it at [place] [facility] 12-16-2023 Miscellaneous Notes I ordered an arterial PVR, it's in the cardiovascular section of [facility]. I am fine with him doing it at [place] Patient does not have a ct order. Name of caller: Windy Contact phone number: [phone] Relationship to Patient: spouse/SO Provider: Dr. Tesfaye Practice: [facility] Chief Complaint/Reason for Call: Windy states she would like the order for the CT scan for the patient to be sent to [facility]. Windy did not provide fax number but the phone number to [facility] is . Windy states she would like to be notified once sent. Please advise. Best time of day caller can be reached: any Patient advised that office/PCP has 24-48 business hours to return their call: Yes documented in this encounter [facility] 12-16-2023 Telephone encounter Note Patient does not have a ct order. [facility] 12-16-2023 Telephone encounter Note Name of caller: Windy Contact phone number: [phone] Relationship to Patient: spouse/SO Provider: Dr. Tesfaye Practice: [facility] Chief Complaint/Reason for Call: Windy states she would like the order for the CT scan for the patient to be sent to [facility]. Windy did not provide fax number but the phone number to [facility] is . Windy states she would like to be notified once sent. Please advise. Best time of day caller can be reached: any Patient advised that office/PCP has 24-48 business hours to return their call: Yes [facility] 12-08-2023 History of Present illness Narrative Images from the original note were not included. [facility] [address] [facility] [address] Dept: [phone] Dept Loc: [phone] Visit type: Established Patient Reason for Visit: Follow-up, Muscle Pain (burning), and Spasms Assessment and Plan 1. Spasmodic torticollis 2. Dystonic tremor 3. Atheroscler of [place] artery of both legs with intermit claudication [...] 2 times every day, Disp: , Rfl: Fywmwqzxcqk-Fthfkgkpd-Pblslr (Trelegy Ellipta) 200-62.5-25 MCG/ACT aerosol powder , [...] patient of Dr. Tesfaye. This was in [place]. He continues follow-up Dr. Tesfaye in [place]. Has been receiving Dysport injections here since 01/20/2021. In the past at [facility] also a patient of Dr. Mayfield. He had undergone prior botulinum toxin injections both by Dr. Mayfield and at the [facility]. After both treatments he had developed some [...] TSH VITAMIN B12: No results found for: [id number] No results found for: PHENYTOIN, PHENOBARB, VALPROATE, CBMZ No components found for: TOPIRA @RESULTINGLABINFO@ No results found for: LEVETIRACETA, FERRITIN, CRP, LUIS MANUEL, ANCA No results found for: IBETH, IMMUNOGLOBUL, OLIGOBANDS No results found for: [id number], HEPCAB No results found for: CRP, ANATITER, ANCA FERRITIN: No results found for: FERRITIN ---- XR CERVICAL SPINE W OBLIQUES FLEXION AND EXTENSION Narrative: Patient Name: VISHAL CISNEROS Diagnostic Radiology ACCESSION EXAM DATE/TIME 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 [id number] 11/20/2020 12:03 EDT CR Spine Cervical Comp CHRISTINE TESFAYE w/ Obliques CPT code 92895 Reason For Exam (CR Spine Cervical Comp [...] torticollis 2. Dystonic tremor 3. Atheroscler of [place] artery of both legs with intermit claudication [...] for studies. @SIGNATURE@ documented in this encounter [facility] 09-23-2023 Telephone encounter Note We were able to resubmit for authorization and have approval from patients insurance starting 09/20/23 until 12/19/23. [facility] should be processing the RX now, if there are any further questions or concerns please let me know! Thanks! [facility] Work Phone: 09-23-2023 Miscellaneous Notes We were [...] 12.5 mg has been denied. Patient's insurance [employer] stated medication is not covered for a diagnosis of spasmodic torticollis and abnormal involuntary movements. However, medication will be covered if patient has Chorea, hyperkinesia, hemiballismus, senile chorea, tic disorder, Tourette's syndrome or tardive dyskinesia. Please see denial letter in patient's chart. Please advise. documented in this encounter [facility] 09-20-2023 Telephone encounter Note [facility] going to try and get PA for this [facility] 09-20-2023 Miscellaneous Notes [facility] going to try and get PA for this Noted Tic disorder and abnormal movements is now associated with the scripts and I re-sent them Office has received notification that PA for Tetrabenazine 12.5 mg has been denied. Patient's insurance [employer] stated medication is not covered for a diagnosis of spasmodic torticollis and abnormal involuntary movements. However, medication will be covered if patient has Chorea, hyperkinesia, hemiballismus, senile chorea, tic disorder, Tourette's syndrome or tardive dyskinesia. Please see denial letter in patient's chart. Please advise. documented in this encounter [facility] 09-19-2023 Telephone encounter Note Noted [facility] 09-16-2023 Telephone encounter Note Tic disorder and abnormal movements is now associated with the scripts and I re-sent them [facility] 09-16-2023 Miscellaneous Notes Tic disorder and abnormal movements is now associated with the scripts and I re-sent them Office has received notification that PA for Tetrabenazine 12.5 mg has been denied. Patient's insurance [employer] stated medication is not covered for a diagnosis of spasmodic torticollis and abnormal involuntary movements. However, medication will be covered if patient has Chorea, hyperkinesia, hemiballismus, senile chorea, tic disorder, Tourette's syndrome or tardive dyskinesia. Please see denial letter in patient's chart. Please advise. documented in this encounter [facility] 09-16-2023 Telephone encounter Note Office has received notification that PA for Tetrabenazine 12.5 mg has been denied. Patient's insurance [employer] stated medication is not covered for a diagnosis of spasmodic torticollis and abnormal involuntary movements. However, medication will be covered if patient has Chorea, hyperkinesia, hemiballismus, senile chorea, tic disorder, Tourette's syndrome or tardive dyskinesia. Please see denial letter in patient's chart. Please advise. [facility] 09-08-2023 History of Present illness Narrative Images from the original note were not included. [facility] [address] [facility] [address] [facility] [address] Dept: [phone] Dept Loc: [phone] Patient was seen today via Telehealth by [...] stated that they are currently in the [facility]. If the patient is a minor, permission [...] 2 times every day, Disp: , Rfl: Smfxeptxgmg-Ieeaugjfh-Doacyq (Trelegy Ellipta) 200-62.5-25 MCG/ACT aerosol powder , [...] TSH VITAMIN B12: No results found for: [id number] No results found for: PHENYTOIN, PHENOBARB, VALPROATE, CBMZ No results found for: LEVETIRACETA, FERRITIN, CRP, LUIS MANUEL, ANCA FERRITIN: No results found for: FERRITIN @RESULTINGLABINFO@ No components found for: TOPIRA No results found for: IBETH, IMMUNOGLOBUL, OLIGOBANDS No results found for: [id number], HEPCAB No results found for: CRP, ANATITER, ANCA ---- @LASTAPPOINTMENTTHISPROV@ XR CERVICAL SPINE W OBLIQUES FLEXION AND EXTENSION Narrative: Patient Name: VISHAL CISNEROS Diagnostic Radiology ACCESSION EXAM DATE/TIME 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 [id number] 11/20/2020 12:03 EDT CR Spine Cervical Comp CHRISTINE TESFAYE w/ Obliques CPT code 06047 Reason For Exam (CR Spine Cervical Comp [...] arranging for studies. documented in this encounter [facility] 06-09-2023 History of Present illness Narrative Images from the original note were not included. [facility] [address] [place] [address] [facility] [address] Dept: [phone] Dept Loc: [phone] Patient was seen today via Telehealth by [...] stated that they are currently in the [facility]. If the patient is a minor, permission [...] 2 times every day, Disp: , Rfl: Uvfeixjypdj-Rhfxlbnje-Ztqvve (Trelegy Ellipta) 200-62.5-25 MCG/ACT aerosol powder , [...] TSH VITAMIN B12: No results found for: [id number] No results found for: PHENYTOIN, PHENOBARB, VALPROATE, CBMZ No results found for: LEVETIRACETA, FERRITIN, CRP, LUIS MANUEL, ANCA FERRITIN: No results found for: FERRITIN @RESULTINGLABINFO@ No components found for: TOPIRA No results found for: IBETH, IMMUNOGLOBUL, OLIGOBANDS No results found for: [id number], HEPCAB No results found for: CRP, ANATITER, ANCA ---- @LASTAPPOINTMENTTHISPROV@ XR CERVICAL SPINE W OBLIQUES FLEXION AND EXTENSION Narrative: Patient Name: VISHAL CISNEROS Diagnostic Radiology ACCESSION EXAM DATE/TIME 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 [id number] 11/20/2020 12:03 EDT CR Spine Cervical Comp CHRISTINE TESFAYE w/ Obliques CPT code 73188 Reason For Exam (CR Spine Cervical Comp [...] arranging for studies. documented in this encounter [facility] 05-16-2023 Telephone encounter Note Last ov- 12/31/22 Next ov- 06/09/23 [facility] 05-16-2023 Miscellaneous Notes Last ov- 12/31/22 Next ov- 06/09/23 documented in this encounter [facility] 04-18-2023 Telephone encounter Note Last ov- 12/31/22 Next ov-06/09/23 [facility] 04-18-2023 Miscellaneous Notes Last ov- 12/31/22 Next ov-06/09/23 documented in this encounter [facility] 03-22-2023 History of Present illness Narrative Images from the original note were not included. [facility] [address] [place] [address] [facility] [address] Dept: [phone] Dept Loc: [phone] Patient was seen today via Telehealth by [...] stated that they are currently in the [facility]. If the patient is a minor, permission [...] 2 times every day, Disp: , Rfl: Ulpkwqtjscw-Jbkgrubcj-Sjobbn (Trelegy Ellipta) 200-62.5-25 MCG/ACT aerosol powder , [...] TSH VITAMIN B12: No results found for: [id number] No results found for: PHENYTOIN, PHENOBARB, VALPROATE, CBMZ No results found for: LEVETIRACETA, FERRITIN, CRP, LUIS MANUEL, ANCA FERRITIN: No results found for: FERRITIN @RESULTINGLABINFO@ No components found for: TOPIRA No results found for: IBETH, IMMUNOGLOBUL, OLIGOBANDS No results found for: [id number], HEPCAB No results found for: CRP, ANATITER, ANCA, ANCA ---- @LASTAPPOINTMENTTHISPROV@ XR CERVICAL SPINE W OBLIQUES FLEXION AND EXTENSION Narrative: Patient Name: VISHAL CISNEROS Diagnostic Radiology ACCESSION EXAM DATE/TIME 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 documented in this encounter [facility] 12-31-2022 History of Present illness Narrative Images from the original note were not included. [facility] [address] [place] [address] [facility] [address] Dept: [phone] Dept Loc: [phone] Visit type: Established Patient Reason for Visit: [...] patient of Dr. Tesfaye. This was in [place]. He continues follow-up Dr. Tesfaye in [place]. Has been receiving Dysport injections here since 01/20/2021. In the past at [facility] also a patient of Dr. Mayfield. He had undergone prior botulinum toxin injections both by Dr. Mayfield and at the [facility]. After both treatments he had developed some [...] TSH VITAMIN B12: No results found for: [id number] No results found for: PHENYTOIN, PHENOBARB, VALPROATE, CBMZ No components found for: TOPIRA @RESULTINGLABINFO@ No results found for: LEVETIRACETA, FERRITIN, CRP, LUIS MANUEL, ANCA No results found for: IBETH, IMMUNOGLOBUL, OLIGOBANDS No results found for: [id number], HEPCAB No results found for: CRP, ANATITER, ANCA, ANCA FERRITIN: No results found for: FERRITIN ---- XR CERVICAL SPINE W OBLIQUES FLEXION AND EXTENSION Narrative: Patient Name: VISHAL CISNEROS Diagnostic Radiology ACCESSION EXAM DATE/TIME 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 [id number] 11/20/2020 12:03 EDT CR Spine Cervical Comp CHRISTINE TESFAYE w/ Obliques CPT code 70220 Reason For Exam (CR Spine Cervical Comp [...] I did when I saw him in [place] I did check that but I cannot [...] have been faxed documented in this encounter [facility] 12-31-2022 Miscellaneous Notes Addended by: CHRISTINE TESFAYE on: 12/31/2022 08:36 AM Modules accepted: Orders documented in this encounter [facility] 12-31-2022 Note Addended by: CHRISTINE TESFAYE on: 12/31/2022 08:36 AM Modules accepted: Orders [facility] 11-11-2022 Telephone encounter Note PIEDAD: 03/19/2021 w/ Martha Schmitt scheduled appt 12/31/2022 [facility] 11-11-2022 Miscellaneous Notes PIEDAD: 03/19/2021 kristie Schmitt scheduled appt 12/31/2022 documented in this encounter [facility] 08-20-2022 Telephone encounter Note Patient refused to make an appointment at this time. Will call back to make an appointment. Message released to patient as written. Yes Patient's further questions if applicable: none Were all questions from office addressed or relayed to the patient from encounter: Yes [facility] 08-20-2022 Miscellaneous Notes Patient refused to make [...] Primidone 50mg tabs documented in this encounter [facility] 08-20-2022 Telephone encounter Note Left a message for pt to call office. Please schedule a follow up appt when pt to call back. [facility] 08-20-2022 Telephone encounter Note He has not been seen since Summer 2020. He needs an appt. I did give 1 month of Primidone 50mg tabs [facility] Audit 10-21-2021 Instructions Name Patient Instructions Start: 2 Instruction Type:Provider Instructions for Treatment How to Access Health Information Online using Patient Portal and 3rd Republican Apps Start: 2 Instruction Type:Patient Education Patient Instructions Start:01-Jun-2021 Instruction Type:Provider Instructions for Treatment How to Access Health Information Online using Patient Portal and 3rd [employer] Apps Start:01-Jun-2021 Instruction Type:Patient Education Patient Instructions Indication:BMI 23.0-23.9, adult Start: 1 Instruction Type:Provider Instructions for Treatment How to Access Health Information Online using Patient Portal and 3rd [employer] Apps Indication:BMI 23.0-23.9, adult Start: 1 Instruction Type:Patient Education How to Access Health Information Online using Patient Portal and 3rd Republican Apps Start: Instruction Type:Patient Education Patient Instructions Start: Instruction Type:Provider Instructions for Treatment How to Access Health Information Online using Patient Portal and 3rd Republican Apps Start: Instruction Type:Patient Education Patient Instructions Start: Instruction Type:Provider Instructions for Treatment How to Access Health Information Online using Patient Portal and 3rd Republican Apps Start:01-Sep-2020 Instruction Type:Patient Education Patient Instructions [...] Work Phone: Evaluation noteNo assessment information available [facility] Work Phone: Evaluation note* Diagnosis Spasmodic torticollis- Primary Tremor Abnormal involuntary movements Yifan disease Disorders of copper metabolism documented in this encounter [facility] note* Diagnosis Spasmodic torticollis- Primary Tremor Abnormal involuntary movements documented in this encounter [facility] note* Diagnosis Tremor Abnormal involuntary movements documented in this encounter [facility] note* Diagnosis Tremor Abnormal involuntary movements documented in this encounter [facility] note* Diagnosis Spasmodic torticollis- Primary Tremor Abnormal involuntary movements documented in this encounter [facility]Evaluation note* 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 Abnormal involuntary movements [facility]* Diagnosis Tic disorder- Primary Tic disorder, unspecified Spasmodic torticollis Abnormal involuntary movements [facility]* Diagnosis Tic disorder- Primary Tic disorder, unspecified Spasmodic torticollis Abnormal involuntary movements [facility]* Diagnosis Tic disorder- Primary Tic disorder, unspecified Spasmodic torticollis Abnormal involuntary movements [facility]* 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) [facility]* 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 Spasmodic torticollis Neurogenic claudication Spinal stenosis of lumbar region documented [facility]* 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 documented [facility]* 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 [facility]* 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 [facility] Additional Instructions [facility]: Instructions* Name Dates Details How to Access Health Informa tion Online using Patient Portal and [employer] Apps Indication:Smoker Start:01-Sep-2020 Instruction Type:Patient Education Patient [...] Informa tion Online using Patient Portal and [employer] Apps Indication:Smoker Start:01-Dec-2020 Instruction Type:Patient Education Patient Instructions Indication:Smoker Start:01-Dec-2020 Instruction Type:Provider Instructions for Treatment How to Access Health Informa tion Online using Patient Portal and [employer] Apps Indication:Smoker Start:01-Sep-2020 Instruction Type:Patient Education Patient [...] Instructions* Name Dates Details How to Access [email or web address] using Patient Portal and [employer] Apps Indication:Smoker Start:01-Dec-2020 Instruction Type:Patient Education Patient Instructions Indication:Smoker Start:01-Dec-2020 Instruction Type:Provider Instructions for Treatment How to Access Health Informa tion Online using Patient Portal and [employer]rd [employer] Apps Indication:Smoker Start:01-Sep-2020 Instruction Type:Patient Education Patient [...] tion Online using Patient Portal and [employer] Apps Indication:Smoker Start:01-Dec-2020 Instruction Type:Patient Education Patient Instructions Indication:Smoker Start:01-Dec-2020 Instruction Type:Provider Instructions for Treatment How to Access Health Informa tion Online using Patient Portal and [employer] Apps Indication:Smoker Start:01-Sep-2020 Instruction Type:Patient Education Patient [...] tion Online using Patient Portal and [employer] Apps Indication:Smoker Start:19-Jan-2021 Instruction Type:Patient Education Patient Instructions Indication:Smoker Start:19-Jan-2021 Instruction Type:Provider Instructions for Treatment How to Access Health Informa tion Online using Patient Portal and [employer] Apps Indication:Smoker Start:01-Dec-2020 Instruction Type:Patient Education Patient Instructions Indication:Smoker Start:01-Dec-2020 Instruction Type:Provider Instructions for Treatment How to Access Health Informa tion Online using Patient Portal and [employer] Apps Indication:Smoker Start:01-Sep-2020 Instruction Type:Patient Education Patient [...] Informa tion Online using Patient Portal and [employer] Apps Indication:Smoker Start:19-Jan-2021 Instruction Type:Patient Education Patient Instructions Indication:Smoker Start:19-Jan-2021 Instruction Type:Provider Instructions for Treatment How to Access Health Informa tion Online using Patient Portal and [employer] Apps Indication:Smoker Start:01-Dec-2020 Instruction Type:Patient Education Patient Instructions Indication:Smoker Start:01-Dec-2020 Instruction Type:Provider Instructions for Treatment How to Access Health Informa tion Online using Patient Portal and [employer] Apps Indication:Smoker Start:01-Sep-2020 Instruction Type:Patient Education Patient [...] for Treatment How to Access Health Informa [employer] using Patient Portal and [employer] Apps Indication:Smoker Start:01-Jun-2021 Instruction Type:Patient Education Patient Instructions Indication:BMI 23.0-23.9, adult Start:06-Apr-2021 Instruction Type:Provider Instructions for Treatment How to Access Health Informa tion Online using Patient Portal and [employer] Apps Indication:BMI 23.0-23.9, adult Start:06-Apr-2021 Instruction Type:Patient Education How to Access Health Informa tion Online using Patient Portal and [employer] Apps Indication:Smoker Start:19-Jan-2021 Instruction Type:Patient Education Patient Instructions Indication:Smoker Start:19-Jan-2021 Instruction Type:Provider Instructions for Treatment How to Access Health Informa tion Online using Patient Portal and [employer] Apps Indication:Smoker Start:01-Dec-2020 Instruction Type:Patient Education Patient Instructions Indication:Smoker Start:01-Dec-2020 Instruction Type:Provider Instructions for Treatment How to Access Health Informa tion Online using Patient Portal and [employer] Apps Indication:Smoker Start:01-Sep-2020 Instruction Type:Patient Education Patient [...] tion Online using Patient Portal and [employer] Apps Indication:Smoker Start:21-Oct-2021 Instruction Type:Patient Education Patient Instructions Indication:Smoker Start:01-Jun-2021 Instruction Type:Provider Instructions for Treatment How to Access Health Informa tion Online using Patient Portal and [employer] Apps Indication:Smoker Start:01-Jun-2021 Instruction Type:Patient Education Patient Instructions Indication:BMI 23.0-23.9, adult Start:06-Apr-2021 Instruction Type:Provider Instructions for Treatment How to Access Health Informa tion Online using Patient Portal and [employer] Apps Indication:BMI 23.0-23.9, adult Start:06-Apr-2021 Instruction Type:Patient Education How to Access Health Informa tion Online using Patient Portal and [employer] Apps Indication:Smoker Start:19-Jan-2021 Instruction Type:Patient Education Patient Instructions Indication:Smoker Start:19-Jan-2021 Instruction Type:Provider Instructions for Treatment How to Access Health Informa tion Online using Patient Portal and [employer] Apps Indication:Smoker Start:01-Dec-2020 Instruction Type:Patient Education Patient Instructions Indication:Smoker Start:01-Dec-2020 Instruction Type:Provider Instructions for Treatment How to Access Health Informa tion Online using Patient Portal and [employer] Apps Indication:Smoker Start:01-Sep-2020 Instruction Type:Patient Education Patient [...] for Treatment How to access health informa [employer] online Indication:Impaired fasting glucose Start:24-Nov-2016 Instruction Type:Patient Education How to access health informa tion online - Detail Indication:Impaired fasting glucose Start:24-Nov-2016 Instruction Type:Patient Education Patient Instructions Indication:Impaired fasting glucose Start:24-Nov-2016 Instruction Type:Provider Instructions for Treatment How to access health informa [employer] online Indication:Impaired fasting glucose Start:21-Jul-2016 Instruction Type:Patient Education How to access health informa tion online - Detail Indication:Impaired fasting glucose Start:21-Jul-2016 Instruction Type:Patient Education Patient Instructions Indication:Impaired fasting glucose Start:21-Jul-2016 Instruction Type:Provider Instructions for Treatment Patient Instructions Indication:Torticollis Start:19-Mar-2016 Instruction Type:Provider Instructions for Treatment How to access health informa [employer] online Indication:Hypercholesteremia Start:19-Mar-2016 Instruction Type:Patient Education How to access health informa tion online - Detail Indication:Hypercholesteremia Start:19-Mar-2016 Instruction Type:Patient Education Patient Instructions Indication:Hypercholesteremia Start:19-Mar-2016 Instruction Type:Provider Instructions for Treatment How to access health informa [employer] online Indication:Hypercholesteremia Start:25-Aug-2015 Instruction Type:Patient Education How to access health informa tion online - Detail Indication:Hypercholesteremia Start:25-Aug-2015 Instruction Type:Patient Education Patient Instructions Indication:Hypercholesteremia Start:25-Aug-2015 Instruction Type:Provider Instructions for Treatment Patient Instructions Indication:Fever and chills Start:01-Oct-2014 Instruction Type:Provider Instructions for Treatment How to access health informa [employer] online Indication:Impaired fasting glucose Start:02-Sep-2014 Instruction Type:Patient [...] tion Online using Patient Portal and [employer] Apps Indication:Smoker Start:29-Jan-2022 Instruction Type:Patient Education Patient Instructions Indication:Smoker Start:29-Jan-2022 Instruction Type:Provider Instructions for Treatment Patient Instructions Indication:Smoker Start:21-Oct-2021 Instruction Type:Provider Instructions for Treatment How to Access Health Informa tion Online using Patient Portal and [employer] Apps Indication:Smoker Start:21-Oct-2021 Instruction Type:Patient Education Patient Instructions Indication:Smoker Start:01-Jun-2021 Instruction Type:Provider Instructions for Treatment How to Access Health Informa tion Online using Patient Portal and [employer] Apps Indication:Smoker Start:01-Jun-2021 Instruction Type:Patient Education Patient Instructions Indication:BMI 23.0-23.9, adult Start:06-Apr-2021 Instruction Type:Provider Instructions for Treatment How to Access Health Informa tion Online using Patient Portal and [employer] Apps Indication:BMI 23.0-23.9, adult Start:06-Apr-2021 Instruction Type:Patient Education How to Access Health Informa tion Online using Patient Portal and [employer] Apps Indication:Smoker Start:19-Jan-2021 Instruction Type:Patient Education Patient Instructions Indication:Smoker Start:19-Jan-2021 Instruction Type:Provider Instructions for Treatment How to Access Health Informa tion Online using Patient Portal and [employer] Apps Indication:Smoker Start:01-Dec-2020 Instruction Type:Patient Education Patient Instructions Indication:Smoker Start:01-Dec-2020 Instruction Type:Provider Instructions for Treatment How to Access Health Informa tion Online using Patient Portal and [employer] Apps Indication:Smoker Start:01-Sep-2020 Instruction Type:Patient Education Patient [...] for Treatment How to access health informa [employer] online Indication:Hypercholesteremia Start:19-Mar-2016 Instruction Type:Patient Education How to access health informa tion online - Detail Indication:Hypercholesteremia Start:19-Mar-2016 Instruction Type:Patient Education Patient Instructions Indication:Hypercholesteremia Start:19-Mar-2016 Instruction Type:Provider Instructions for Treatment How to access health informa [employer] online Indication:Hypercholesteremia Start:25-Aug-2015 Instruction Type:Patient Education How to access health informa tion online - Detail Indication:Hypercholesteremia Start:25-Aug-2015 Instruction Type:Patient Education Patient Instructions Indication:Hypercholesteremia Start:25-Aug-2015 Instruction Type:Provider Instructions for Treatment Patient Instructions Indication:Fever and chills Start:01-Oct-2014 Instruction Type:Provider Instructions for Treatment How to access health informa [employer] online Indication:Impaired fasting glucose Start:02-Sep-2014 Instruction Type:Patient [...] Instructions* Name Dates Details How to Access [email or web address] using Patient Portal and [employer] Apps Indication:Smoker Start:29-Jan-2022 Instruction Type:Patient Education Patient Instructions Indication:Smoker Start:29-Jan-2022 Instruction Type:Provider Instructions for Treatment Patient Instructions Indication:Smoker Start:21-Oct-2021 Instruction Type:Provider Instructions for Treatment How to Access Health Informa tion Online using Patient Portal and [employer] Apps Indication:Smoker Start:21-Oct-2021 Instruction Type:Patient Education Patient Instructions Indication:Smoker Start:01-Jun-2021 Instruction Type:Provider Instructions for Treatment How to Access Health Informa tion Online using Patient Portal and [employer] Apps Indication:Smoker Start:01-Jun-2021 Instruction Type:Patient Education Patient Instructions Indication:BMI 23.0-23.9, adult Start:06-Apr-2021 Instruction Type:Provider Instructions for Treatment How to Access Health Informa tion Online using Patient Portal and [employer] Apps Indication:BMI 23.0-23.9, adult Start:06-Apr-2021 Instruction Type:Patient Education How to Access Health Informa tion Online using Patient Portal and [employer] Apps Indication:Smoker Start:19-Jan-2021 Instruction Type:Patient Education Patient Instructions Indication:Smoker Start:19-Jan-2021 Instruction Type:Provider Instructions for Treatment How to Access Health Informa tion Online using Patient Portal and [employer] Apps Indication:Smoker Start:01-Dec-2020 Instruction Type:Patient Education Patient Instructions Indication:Smoker Start:01-Dec-2020 Instruction Type:Provider Instructions for Treatment How to Access Health Informa tion Online using Patient Portal and [employer] Apps Indication:Smoker Start:01-Sep-2020 Instruction Type:Patient Education Patient [...] tion Online using Patient Portal and [employer] Apps Indication:Smoker Start:29-Jan-2022 Instruction Type:Patient Education Patient Instructions Indication:Smoker Start:29-Jan-2022 Instruction Type:Provider Instructions for Treatment Patient Instructions Indication:Smoker Start:21-Oct-2021 Instruction Type:Provider Instructions for Treatment How to Access Health Informa tion Online using Patient Portal and [employer] Apps Indication:Smoker Start:21-Oct-2021 Instruction Type:Patient Education Patient Instructions Indication:Smoker Start:01-Jun-2021 Instruction Type:Provider Instructions for Treatment How to Access Health Informa tion Online using Patient Portal and 3[employer] Apps Indication:Smoker Start:01-Jun-2021 Instruction Type:Patient Education Patient Instructions Indication:BMI 23.0-23.9, adult Start:06-Apr-2021 Instruction Type:Provider Instructions for Treatment How to Access Health Informa tion Online using Patient Portal and [employer] Apps Indication:BMI 23.0-23.9, adult Start:06-Apr-2021 Instruction Type:Patient Education How to Access Health Informa tion Online using Patient Portal and [employer] Apps Indication:Smoker Start:19-Jan-2021 Instruction Type:Patient Education Patient Instructions Indication:Smoker Start:19-Jan-2021 Instruction Type:Provider Instructions for Treatment How to Access Health Informa tion Online using Patient Portal and [employer] Apps Indication:Smoker Start:01-Dec-2020 Instruction Type:Patient Education Patient Instructions Indication:Smoker Start:01-Dec-2020 Instruction Type:Provider Instructions for Treatment How to Access Health Informa tion Online using Patient Portal and [employer]rd [employer] Apps Indication:Smoker Start:01-Sep-2020 Instruction Type:Patient Education Patient [...] tion Online using Patient Portal and [employer] Republican Apps Indication:Smoker Start:29-Jan-2022 Instruction Type:Patient Education Patient Instructions Indication:Smoker Start:29-Jan-2022 Instruction Type:Provider Instructions for Treatment Patient Instructions Indication:Smoker Start:21-Oct-2021 Instruction Type:Provider Instructions for Treatment How to Access Health Informa tion Online using Patient Portal and 3rd Republican Apps Indication:Smoker Start:21-Oct-2021 Instruction Type:Patient Education Patient Instructions Indication:Smoker Start:01-Jun-2021 Instruction Type:Provider Instructions for Treatment How to Access Health Informa tion Online using Patient Portal and [employer] Republican Apps Indication:Smoker Start:01-Jun-2021 Instruction Type:Patient Education Patient Instructions Indication:BMI 23.0-23.9, adult Start:06-Apr-2021 Instruction Type:Provider Instructions for Treatment How to Access Health Informa tion Online using Patient Portal and [employer] Apps Indication:BMI 23.0-23.9, adult Start:06-Apr-2021 Instruction Type:Patient Education How to Access Health Informa tion Online using Patient Portal and 3[employer] Republican Apps Indication:Smoker Start:19-Jan-2021 Instruction Type:Patient Education Patient Instructions Indication:Smoker Start:19-Jan-2021 Instruction Type:Provider Instructions for Treatment How to Access Health Informa tion Online using Patient Portal and 3rd Republican Apps Indication:Smoker Start:01-Dec-2020 Instruction Type:Patient Education Patient Instructions Indication:Smoker Start:01-Dec-2020 Instruction Type:Provider Instructions for Treatment How to Access Health Informa tion Online using Patient Portal and [employer]rd Republican Apps Indication:Smoker Start:01-Sep-2020 Instruction Type:Patient Education Patient [...] tion Online using Patient Portal and [employer]rd [employer] Apps Indication:Smoker Start:29-Jan-2022 Instruction Type:Patient Education Patient Instructions Indication:Smoker Start:29-Jan-2022 Instruction Type:Provider Instructions for Treatment Patient Instructions Indication:Smoker Start:21-Oct-2021 Instruction Type:Provider Instructions for Treatment How to Access Health Informa tion Online using Patient Portal and 3[employer] Apps Indication:Smoker Start:21-Oct-2021 Instruction Type:Patient Education Patient Instructions Indication:Smoker Start:01-Jun-2021 Instruction Type:Provider Instructions for Treatment How to Access Health Informa tion Online using Patient Portal and [employer] Apps Indication:Smoker Start:01-Jun-2021 Instruction Type:Patient Education Patient Instructions Indication:BMI 23.0-23.9, adult Start:06-Apr-2021 Instruction Type:Provider Instructions for Treatment How to Access Health Informa tion Online using Patient Portal and [employer] Apps Indication:BMI 23.0-23.9, adult Start:06-Apr-2021 Instruction Type:Patient Education How to Access Health Informa tion Online using Patient Portal and [employer] Apps Indication:Smoker Start:19-Jan-2021 Instruction Type:Patient Education Patient Instructions Indication:Smoker Start:19-Jan-2021 Instruction Type:Provider Instructions for Treatment How to Access Health Informa tion Online using Patient Portal and [employer] Apps Indication:Smoker Start:01-Dec-2020 Instruction Type:Patient Education Patient Instructions Indication:Smoker Start:01-Dec-2020 Instruction Type:Provider Instructions for Treatment How to Access Health Informa tion Online using Patient Portal and [employer] Apps Indication:Smoker Start:01-Sep-2020 Instruction Type:Patient Education Patient [...] Instructions* Name Dates Details How to Access [email or web address] using Patient Portal and [employer] Apps Indication:Smoker Start:29-Jan-2022 Instruction Type:Patient Education Patient Instructions Indication:Smoker Start:29-Jan-2022 Instruction Type:Provider Instructions for Treatment Patient Instructions Indication:Smoker Start:21-Oct-2021 Instruction Type:Provider Instructions for Treatment How to Access Health Informa tion Online using Patient Portal and [employer] Apps Indication:Smoker Start:21-Oct-2021 Instruction Type:Patient Education Patient Instructions Indication:Smoker Start:01-Jun-2021 Instruction Type:Provider Instructions for Treatment How to Access Health Informa tion Online using Patient Portal and [employer] Apps Indication:Smoker Start:01-Jun-2021 Instruction Type:Patient Education Patient Instructions Indication:BMI 23.0-23.9, adult Start:06-Apr-2021 Instruction Type:Provider Instructions for Treatment How to Access Health Informa tion Online using Patient Portal and [employer] Apps Indication:BMI 23.0-23.9, adult Start:06-Apr-2021 Instruction Type:Patient Education How to Access Health Informa tion Online using Patient Portal and [employer] Apps Indication:Smoker Start:19-Jan-2021 Instruction Type:Patient Education Patient Instructions Indication:Smoker Start:19-Jan-2021 Instruction Type:Provider Instructions for Treatment How to Access Health Informa tion Online using Patient Portal and [employer]rd [employer] Apps Indication:Smoker Start:01-Dec-2020 Instruction Type:Patient Education Patient Instructions Indication:Smoker Start:01-Dec-2020 Instruction Type:Provider Instructions for Treatment How to Access Health Informa tion Online using Patient Portal and [employer]rd [employer] Apps Indication:Smoker Start:01-Sep-2020 Instruction Type:Patient Education Patient [...] Informa tion Online using Patient Portal and [employer] Apps Indication:Smoker Start:29-Jan-2022 Instruction Type:Patient Education Patient Instructions Indication:Smoker Start:29-Jan-2022 Instruction Type:Provider Instructions for Treatment Patient Instructions Indication:Smoker Start:21-Oct-2021 Instruction Type:Provider Instructions for Treatment How to Access Health Informa tion Online using Patient Portal and [employer] Apps Indication:Smoker Start:21-Oct-2021 Instruction Type:Patient Education Patient Instructions Indication:Smoker Start:01-Jun-2021 Instruction Type:Provider Instructions for Treatment How to Access Health Informa tion Online using Patient Portal and [employer]rd [employer] Apps Indication:Smoker Start:01-Jun-2021 Instruction Type:Patient Education Patient Instructions Indication:BMI 23.0-23.9, adult Start:06-Apr-2021 Instruction Type:Provider Instructions for Treatment How to Access Health Informa tion Online using Patient Portal and [employer] Apps Indication:BMI 23.0-23.9, adult Start:06-Apr-2021 Instruction Type:Patient Education How to Access Health Informa tion Online using Patient Portal and [employer] Apps Indication:Smoker Start:19-Jan-2021 Instruction Type:Patient Education Patient Instructions Indication:Smoker Start:19-Jan-2021 Instruction Type:Provider Instructions for Treatment How to Access Health Informa tion Online using Patient Portal and [employer]rd [employer] Apps Indication:Smoker Start:01-Dec-2020 Instruction Type:Patient Education Patient Instructions Indication:Smoker Start:01-Dec-2020 Instruction Type:Provider Instructions for Treatment How to Access Health Informa tion Online using Patient Portal and [employer] Apps Indication:Smoker Start:01-Sep-2020 Instruction Type:Patient Education Patient [...] Informa tion Online using Patient Portal and [employer] Apps Indication:Smoker Start:29-Jan-2022 Instruction Type:Patient Education Patient Instructions Indication:Smoker Start:29-Jan-2022 Instruction Type:Provider Instructions for Treatment Patient Instructions Indication:Smoker Start:21-Oct-2021 Instruction Type:Provider Instructions for Treatment How to Access Health Informa tion Online using Patient Portal and [employer] Apps Indication:Smoker Start:21-Oct-2021 Instruction Type:Patient Education Patient Instructions Indication:Smoker Start:01-Jun-2021 Instruction Type:Provider Instructions for Treatment How to Access Health Informa tion Online using Patient Portal and [employer] Apps Indication:Smoker Start:01-Jun-2021 Instruction Type:Patient Education Patient Instructions Indication:BMI 23.0-23.9, adult Start:06-Apr-2021 Instruction Type:Provider Instructions for Treatment How to Access Health Informa tion Online using Patient Portal and [employer] Apps Indication:BMI 23.0-23.9, adult Start:06-Apr-2021 Instruction Type:Patient Education How to Access Health Informa tion Online using Patient Portal and [employer] Apps Indication:Smoker Start:19-Jan-2021 Instruction Type:Patient Education Patient Instructions Indication:Smoker Start:19-Jan-2021 Instruction Type:Provider Instructions for Treatment How to Access Health Informa tion Online using Patient Portal and [employer] Apps Indication:Smoker Start:01-Dec-2020 Instruction Type:Patient Education Patient Instructions Indication:Smoker Start:01-Dec-2020 Instruction Type:Provider Instructions for Treatment How to Access Health Informa tion Online using Patient Portal and [employer] Apps Indication:Smoker Start:01-Sep-2020 Instruction Type:Patient Education Patient [...] tion Online using Patient Portal and [employer] Apps Indication:Smoker Start:29-Jan-2022 Instruction Type:Patient Education Patient Instructions Indication:Smoker Start:29-Jan-2022 Instruction Type:Provider Instructions for Treatment Patient Instructions Indication:Smoker Start:21-Oct-2021 Instruction Type:Provider Instructions for Treatment How to Access Health Informa tion Online using Patient Portal and [employer] Apps Indication:Smoker Start:21-Oct-2021 Instruction Type:Patient Education Patient Instructions Indication:Smoker Start:01-Jun-2021 Instruction Type:Provider Instructions for Treatment How to Access Health Informa tion Online using Patient Portal and [employer] Apps Indication:Smoker Start:01-Jun-2021 Instruction Type:Patient Education Patient Instructions Indication:BMI 23.0-23.9, adult Start:06-Apr-2021 Instruction Type:Provider Instructions for Treatment How to Access Health Informa tion Online using Patient Portal and [employer] Apps Indication:BMI 23.0-23.9, adult Start:06-Apr-2021 Instruction Type:Patient Education How to Access Health Informa tion Online using Patient Portal and [employer] Apps Indication:Smoker Start:19-Jan-2021 Instruction Type:Patient Education Patient Instructions Indication:Smoker Start:19-Jan-2021 Instruction Type:Provider Instructions for Treatment How to Access Health Informa tion Online using Patient Portal and [employer] Apps Indication:Smoker Start:01-Dec-2020 Instruction Type:Patient Education Patient Instructions Indication:Smoker Start:01-Dec-2020 Instruction Type:Provider Instructions for Treatment How to Access Health Informa tion Online using Patient Portal and [employer] Apps Indication:Smoker Start:01-Sep-2020 Instruction Type:Patient Education Patient [...] tion Online using Patient Portal and [employer] Apps Indication:BMI 23.0-23.9, adult Start:20-Aug-2022 Instruction Type:Patient Education How to Access Health Informa tion Online using Patient Portal and [employer] Apps Indication:Smoker Start:29-Jan-2022 Instruction Type:Patient Education Patient Instructions Indication:Smoker Start:29-Jan-2022 Instruction Type:Provider Instructions for Treatment Patient Instructions Indication:Smoker Start:21-Oct-2021 Instruction Type:Provider Instructions for Treatment How to Access Health Informa tion Online using Patient Portal and [employer] Apps Indication:Smoker Start:21-Oct-2021 Instruction Type:Patient Education Patient Instructions Indication:Smoker Start:01-Jun-2021 Instruction Type:Provider Instructions for Treatment How to Access Health Informa tion Online using Patient Portal and [employer] Apps Indication:Smoker Start:01-Jun-2021 Instruction Type:Patient Education Patient Instructions Indication:BMI 23.0-23.9, adult Start:06-Apr-2021 Instruction Type:Provider Instructions for Treatment How to Access Health Informa tion Online using Patient Portal and [employer] Apps Indication:BMI 23.0-23.9, adult Start:06-Apr-2021 Instruction Type:Patient Education How to Access Health Informa tion Online using Patient Portal and [employer] Apps Indication:Smoker Start:19-Jan-2021 Instruction Type:Patient Education Patient Instructions Indication:Smoker Start:19-Jan-2021 Instruction Type:Provider Instructions for Treatment How to Access Health Informa tion Online using Patient Portal and [employer] Apps Indication:Smoker Start:01-Dec-2020 Instruction Type:Patient Education Patient Instructions Indication:Smoker Start:01-Dec-2020 Instruction Type:Provider Instructions for Treatment How to Access Health Informa tion Online using Patient Portal and [employer]rd [employer] Apps Indication:Smoker Start:01-Sep-2020 Instruction Type:Patient Education Patient [...] Informa tion Online using Patient Portal and [employer] Apps Indication:Smoker Start:23-Dec-2022 Instruction Type:Patient Education Patient Instructions Indication:BMI 23.0-23.9, adult Start:20-Aug-2022 Instruction Type:Provider Instructions for Treatment How to Access Health Informa tion Online using Patient Portal and [employer] Apps Indication:BMI 23.0-23.9, adult Start:20-Aug-2022 Instruction Type:Patient Education How to Access Health Informa tion Online using Patient Portal and 3rd Republican Apps Indication:Smoker Start:29-Jan-2022 Instruction Type:Patient Education Patient Instructions Indication:Smoker Start:29-Jan-2022 Instruction Type:Provider Instructions for Treatment Patient Instructions Indication:Smoker Start:21-Oct-2021 Instruction Type:Provider Instructions for Treatment How to Access Health Informa tion Online using Patient Portal and [employer] Apps Indication:Smoker Start:21-Oct-2021 Instruction Type:Patient Education Patient Instructions Indication:Smoker Start:01-Jun-2021 Instruction Type:Provider Instructions for Treatment How to Access Health Informa tion Online using Patient Portal and [employer] Apps Indication:Smoker Start:01-Jun-2021 Instruction Type:Patient Education Patient Instructions Indication:BMI 23.0-23.9, adult Start:06-Apr-2021 Instruction Type:Provider Instructions for Treatment How to Access Health Informa tion Online using Patient Portal and [employer] Apps Indication:BMI 23.0-23.9, adult Start:06-Apr-2021 Instruction Type:Patient Education How to Access Health Informa tion Online using Patient Portal and [employer] Apps Indication:Smoker Start:19-Jan-2021 Instruction Type:Patient Education Patient Instructions Indication:Smoker Start:19-Jan-2021 Instruction Type:Provider Instructions for Treatment How to Access Health Informa tion Online using Patient Portal and [employer] Apps Indication:Smoker Start:01-Dec-2020 Instruction Type:Patient Education Patient Instructions Indication:Smoker Start:01-Dec-2020 Instruction Type:Provider Instructions for Treatment How to Access Health Informa tion Online using Patient Portal and 3rd [employer] Apps Indication:Smoker Start:01-Sep-2020 Instruction Type:Patient Education Patient [...] Informa tion Online using Patient Portal and [employer] Apps Indication:Smoker Start:23-Dec-2022 Instruction Type:Patient Education Patient Instructions Indication:BMI 23.0-23.9, adult Start:20-Aug-2022 Instruction Type:Provider Instructions for Treatment How to Access Health Informa tion Online using Patient Portal and [employer] Apps Indication:BMI 23.0-23.9, adult Start:20-Aug-2022 Instruction Type:Patient Education How to Access Health Informa tion Online using Patient Portal and 3[employer] Republican Apps Indication:Smoker Start:29-Jan-2022 Instruction Type:Patient Education Patient Instructions Indication:Smoker Start:29-Jan-2022 Instruction Type:Provider Instructions for Treatment Patient Instructions Indication:Smoker Start:21-Oct-2021 Instruction Type:Provider Instructions for Treatment How to Access Health Informa tion Online using Patient Portal and [employer] Apps Indication:Smoker Start:21-Oct-2021 Instruction Type:Patient Education Patient Instructions Indication:Smoker Start:01-Jun-2021 Instruction Type:Provider Instructions for Treatment How to Access Health Informa tion Online using Patient Portal and [employer] Apps Indication:Smoker Start:01-Jun-2021 Instruction Type:Patient Education Patient Instructions Indication:BMI 23.0-23.9, adult Start:06-Apr-2021 Instruction Type:Provider Instructions for Treatment How to Access Health Informa tion Online using Patient Portal and [employer] Apps Indication:BMI 23.0-23.9, adult Start:06-Apr-2021 Instruction Type:Patient Education How to Access Health Informa tion Online using Patient Portal and [employer] Apps Indication:Smoker Start:19-Jan-2021 Instruction Type:Patient Education Patient Instructions Indication:Smoker Start:19-Jan-2021 Instruction Type:Provider Instructions for Treatment How to Access Health Informa tion Online using Patient Portal and [employer] Apps Indication:Smoker Start:01-Dec-2020 Instruction Type:Patient Education Patient Instructions Indication:Smoker Start:01-Dec-2020 Instruction Type:Provider Instructions for Treatment How to Access Health Informa tion Online using Patient Portal and 3[employer] Republican Apps Indication:Smoker Start:01-Sep-2020 Instruction Type:Patient Education Patient [...] Informa tion Online using Patient Portal and [employer] Apps Indication:Smoker Start:23-Dec-2022 Instruction Type:Patient Education Patient Instructions Indication:BMI 23.0-23.9, adult Start:20-Aug-2022 Instruction Type:Provider Instructions for Treatment How to Access Health Informa tion Online using Patient Portal and [employer] Apps Indication:BMI 23.0-23.9, adult Start:20-Aug-2022 Instruction Type:Patient Education How to Access Health Informa tion Online using Patient Portal and [employer] Apps Indication:Smoker Start:29-Jan-2022 Instruction Type:Patient Education Patient Instructions Indication:Smoker Start:29-Jan-2022 Instruction Type:Provider Instructions for Treatment Patient Instructions Indication:Smoker Start:21-Oct-2021 Instruction Type:Provider Instructions for Treatment How to Access Health Informa tion Online using Patient Portal and [employer] Apps Indication:Smoker Start:21-Oct-2021 Instruction Type:Patient Education Patient Instructions Indication:Smoker Start:01-Jun-2021 Instruction Type:Provider Instructions for Treatment How to Access Health Informa tion Online using Patient Portal and [employer] Apps Indication:Smoker Start:01-Jun-2021 Instruction Type:Patient Education Patient Instructions Indication:BMI 23.0-23.9, adult Start:06-Apr-2021 Instruction Type:Provider Instructions for Treatment How to Access Health Informa tion Online using Patient Portal and [employer] Apps Indication:BMI 23.0-23.9, adult Start:06-Apr-2021 Instruction Type:Patient Education How to Access Health Informa tion Online using Patient Portal and [employer] Apps Indication:Smoker Start:19-Jan-2021 Instruction Type:Patient Education Patient Instructions Indication:Smoker Start:19-Jan-2021 Instruction Type:Provider Instructions for Treatment How to Access Health Informa tion Online using Patient Portal and [employer] Apps Indication:Smoker Start:01-Dec-2020 Instruction Type:Patient Education Patient Instructions Indication:Smoker Start:01-Dec-2020 Instruction Type:Provider Instructions for Treatment How to Access Health Informa tion Online using Patient Portal and [employer] Apps Indication:Smoker Start:01-Sep-2020 Instruction Type:Patient Education Patient [...] Informa tion Online using Patient Portal and [employer] Apps Indication:Smoker Start:06-Jan-2023 Instruction Type:Patient Education Patient Instructions Indication:Smoker Start:23-Dec-2022 Instruction Type:Provider Instructions for Treatment How to Access Health Informa tion Online using Patient Portal and 3rd Republican Apps Indication:Smoker Start:23-Dec-2022 Instruction Type:Patient Education Patient Instructions Indication:BMI 23.0-23.9, adult Start:20-Aug-2022 Instruction Type:Provider Instructions for Treatment How to Access Health Informa tion Online using Patient Portal and [employer] Apps Indication:BMI 23.0-23.9, adult Start:20-Aug-2022 Instruction Type:Patient Education How to Access Health Informa tion Online using Patient Portal and 3[employer] Republican Apps Indication:Smoker Start:29-Jan-2022 Instruction Type:Patient Education Patient Instructions Indication:Smoker Start:29-Jan-2022 Instruction Type:Provider Instructions for Treatment Patient Instructions Indication:Smoker Start:21-Oct-2021 Instruction Type:Provider Instructions for Treatment How to Access Health Informa tion Online using Patient Portal and [employer] Apps Indication:Smoker Start:21-Oct-2021 Instruction Type:Patient Education Patient Instructions Indication:Smoker Start:01-Jun-2021 Instruction Type:Provider Instructions for Treatment How to Access Health Informa tion Online using Patient Portal and [employer] Apps Indication:Smoker Start:01-Jun-2021 Instruction Type:Patient Education Patient Instructions Indication:BMI 23.0-23.9, adult Start:06-Apr-2021 Instruction Type:Provider Instructions for Treatment How to Access Health Informa tion Online using Patient Portal and [employer] Apps Indication:BMI 23.0-23.9, adult Start:06-Apr-2021 Instruction Type:Patient Education How to Access Health Informa tion Online using Patient Portal and [employer] Republican Apps Indication:Smoker Start:19-Jan-2021 Instruction Type:Patient Education Patient Instructions Indication:Smoker Start:19-Jan-2021 Instruction Type:Provider Instructions for Treatment How to Access Health Informa tion Online using Patient Portal and [employer] Apps Indication:Smoker Start:01-Dec-2020 Instruction Type:Patient Education Patient Instructions Indication:Smoker Start:01-Dec-2020 Instruction Type:Provider Instructions for Treatment How to Access Health Informa tion Online using Patient Portal and [employer] Republican Apps Indication:Smoker Start:01-Sep-2020 Instruction Type:Patient Education Patient [...] Name Dates Details How to Access Health [employer] using Patient Portal and [employer] Apps Indication:Smoker Start:20-Jan-2023 Instruction Type:Patient Education Patient Instructions Indication:Smoker Start:20-Jan-2023 Instruction Type:Provider Instructions for Treatment Patient Instructions Indication:Smoker Start:06-Jan-2023 Instruction Type:Provider Instructions for Treatment How to Access Health Informa tion Online using Patient Portal and [employer] Apps Indication:Smoker Start:06-Jan-2023 Instruction Type:Patient Education Patient Instructions Indication:Smoker Start:23-Dec-2022 Instruction Type:Provider Instructions for Treatment How to Access Health Informa tion Online using Patient Portal and [employer] Apps Indication:Smoker Start:23-Dec-2022 Instruction Type:Patient Education Patient Instructions Indication:BMI 23.0-23.9, adult Start:20-Aug-2022 Instruction Type:Provider Instructions for Treatment How to Access Health Informa tion Online using Patient Portal and [employer] Apps Indication:BMI 23.0-23.9, adult Start:20-Aug-2022 Instruction Type:Patient Education How to Access Health Informa tion Online using Patient Portal and [employer] Apps Indication:Smoker Start:29-Jan-2022 Instruction Type:Patient Education Patient Instructions Indication:Smoker Start:29-Jan-2022 Instruction Type:Provider Instructions for Treatment Patient Instructions Indication:Smoker Start:21-Oct-2021 Instruction Type:Provider Instructions for Treatment How to Access Health Informa tion Online using Patient Portal and [employer] Apps Indication:Smoker Start:21-Oct-2021 Instruction Type:Patient Education Patient Instructions Indication:Smoker Start:01-Jun-2021 Instruction Type:Provider Instructions for Treatment How to Access Health Informa tion Online using Patient Portal and [employer] Apps Indication:Smoker Start:01-Jun-2021 Instruction Type:Patient Education Patient Instructions Indication:BMI 23.0-23.9, adult Start:06-Apr-2021 Instruction Type:Provider Instructions for Treatment How to Access Health Informa tion Online using Patient Portal and [employer] Apps Indication:BMI 23.0-23.9, adult Start:06-Apr-2021 Instruction Type:Patient Education How to Access Health Informa tion Online using Patient Portal and [employer] Apps Indication:Smoker Start:19-Jan-2021 Instruction Type:Patient Education Patient Instructions Indication:Smoker Start:19-Jan-2021 Instruction Type:Provider Instructions for Treatment How to Access Health Informa tion Online using Patient Portal and [employer] Apps Indication:Smoker Start:01-Dec-2020 Instruction Type:Patient Education Patient Instructions Indication:Smoker Start:01-Dec-2020 Instruction Type:Provider Instructions for Treatment How to Access Health Informa tion Online using Patient Portal and [employer] Apps Indication:Smoker Start:01-Sep-2020 Instruction Type:Patient Education Patient [...] tion Online using Patient Portal and [employer] Apps Indication:Tobacco use Start:31-Jan-2023 Instruction Type:Patient Education How to Access Health Informa tion Online using Patient Portal and [employer] Apps Indication:Smoker Start:20-Jan-2023 Instruction Type:Patient Education Patient Instructions Indication:Smoker Start:20-Jan-2023 Instruction Type:Provider Instructions for Treatment Patient Instructions Indication:Smoker Start:06-Jan-2023 Instruction Type:Provider Instructions for Treatment How to Access Health Informa tion Online using Patient Portal and [employer] Apps Indication:Smoker Start:06-Jan-2023 Instruction Type:Patient Education Patient Instructions Indication:Smoker Start:23-Dec-2022 Instruction Type:Provider Instructions for Treatment How to Access Health Informa tion Online using Patient Portal and [employer] Apps Indication:Smoker Start:23-Dec-2022 Instruction Type:Patient Education Patient Instructions Indication:BMI 23.0-23.9, adult Start:20-Aug-2022 Instruction Type:Provider Instructions for Treatment How to Access Health Informa tion Online using Patient Portal and [employer] Apps Indication:BMI 23.0-23.9, adult Start:20-Aug-2022 Instruction Type:Patient Education How to Access Health Informa tion Online using Patient Portal and [employer] Apps Indication:Smoker Start:29-Jan-2022 Instruction Type:Patient Education Patient Instructions Indication:Smoker Start:29-Jan-2022 Instruction Type:Provider Instructions for Treatment Patient Instructions Indication:Smoker Start:21-Oct-2021 Instruction Type:Provider Instructions for Treatment How to Access Health Informa tion Online using Patient Portal and [employer] Apps Indication:Smoker Start:21-Oct-2021 Instruction Type:Patient Education Patient Instructions Indication:Smoker Start:01-Jun-2021 Instruction Type:Provider Instructions for Treatment How to Access Health Informa tion Online using Patient Portal and [employer] Apps Indication:Smoker Start:01-Jun-2021 Instruction Type:Patient Education Patient Instructions Indication:BMI 23.0-23.9, adult Start:06-Apr-2021 Instruction Type:Provider Instructions for Treatment How to Access Health Informa tion Online using Patient Portal and [employer] Apps Indication:BMI 23.0-23.9, adult Start:06-Apr-2021 Instruction Type:Patient Education How to Access Health Informa tion Online using Patient Portal and [employer] Apps Indication:Smoker Start:19-Jan-2021 Instruction Type:Patient Education Patient Instructions Indication:Smoker Start:19-Jan-2021 Instruction Type:Provider Instructions for Treatment How to Access Health Informa tion Online using Patient Portal and [employer] Apps Indication:Smoker Start:01-Dec-2020 Instruction Type:Patient Education Patient Instructions Indication:Smoker Start:01-Dec-2020 Instruction Type:Provider Instructions for Treatment How to Access Health Informa tion Online using Patient Portal and [employer] Apps Indication:Smoker Start:01-Sep-2020 Instruction Type:Patient Education Patient [...] tion Online using Patient Portal and [employer] Apps Indication:Tobacco use Start:31-Jan-2023 Instruction Type:Patient Education How to Access Health Informa tion Online using Patient Portal and [employer] Apps Indication:Smoker Start:20-Jan-2023 Instruction Type:Patient Education Patient Instructions Indication:Smoker Start:20-Jan-2023 Instruction Type:Provider Instructions for Treatment Patient Instructions Indication:Smoker Start:06-Jan-2023 Instruction Type:Provider Instructions for Treatment How to Access Health Informa tion Online using Patient Portal and [employer] Apps Indication:Smoker Start:06-Jan-2023 Instruction Type:Patient Education Patient Instructions Indication:Smoker Start:23-Dec-2022 Instruction Type:Provider Instructions for Treatment How to Access Health Informa tion Online using Patient Portal and [employer] Apps Indication:Smoker Start:23-Dec-2022 Instruction Type:Patient Education Patient Instructions Indication:BMI 23.0-23.9, adult Start:20-Aug-2022 Instruction Type:Provider Instructions for Treatment How to Access Health Informa tion Online using Patient Portal and [employer] Apps Indication:BMI 23.0-23.9, adult Start:20-Aug-2022 Instruction Type:Patient Education How to Access Health Informa tion Online using Patient Portal and [employer] Apps Indication:Smoker Start:29-Jan-2022 Instruction Type:Patient Education Patient Instructions Indication:Smoker Start:29-Jan-2022 Instruction Type:Provider Instructions for Treatment Patient Instructions Indication:Smoker Start:21-Oct-2021 Instruction Type:Provider Instructions for Treatment How to Access Health Informa tion Online using Patient Portal and [employer] Apps Indication:Smoker Start:21-Oct-2021 Instruction Type:Patient Education Patient Instructions Indication:Smoker Start:01-Jun-2021 Instruction Type:Provider Instructions for Treatment How to Access Health Informa tion Online using Patient Portal and [employer] Apps Indication:Smoker Start:01-Jun-2021 Instruction Type:Patient Education Patient Instructions Indication:BMI 23.0-23.9, adult Start:06-Apr-2021 Instruction Type:Provider Instructions for Treatment How to Access Health Informa tion Online using Patient Portal and [employer] Apps Indication:BMI 23.0-23.9, adult Start:06-Apr-2021 Instruction Type:Patient Education How to Access Health Informa tion Online using Patient Portal and [employer] Apps Indication:Smoker Start:19-Jan-2021 Instruction Type:Patient Education Patient Instructions Indication:Smoker Start:19-Jan-2021 Instruction Type:Provider Instructions for Treatment How to Access Health Informa tion Online using Patient Portal and [employer] Apps Indication:Smoker Start:01-Dec-2020 Instruction Type:Patient Education Patient Instructions Indication:Smoker Start:01-Dec-2020 Instruction Type:Provider Instructions for Treatment How to Access Health Informa tion Online using Patient Portal and [employer] Apps Indication:Smoker Start:01-Sep-2020 Instruction Type:Patient Education Patient [...] tion Online using Patient Portal and [employer] Apps Indication:Tobacco use Start:31-Jan-2023 Instruction Type:Patient Education How to Access Health Informa tion Online using Patient Portal and [employer] Apps Indication:Smoker Start:20-Jan-2023 Instruction Type:Patient Education Patient Instructions Indication:Smoker Start:20-Jan-2023 Instruction Type:Provider Instructions for Treatment Patient Instructions Indication:Smoker Start:06-Jan-2023 Instruction Type:Provider Instructions for Treatment How to Access Health Informa tion Online using Patient Portal and [employer] Apps Indication:Smoker Start:06-Jan-2023 Instruction Type:Patient Education Patient Instructions Indication:Smoker Start:23-Dec-2022 Instruction Type:Provider Instructions for Treatment How to Access Health Informa tion Online using Patient Portal and [employer] Apps Indication:Smoker Start:23-Dec-2022 Instruction Type:Patient Education Patient Instructions Indication:BMI 23.0-23.9, adult Start:20-Aug-2022 Instruction Type:Provider Instructions for Treatment How to Access Health Informa tion Online using Patient Portal and [employer] Apps Indication:BMI 23.0-23.9, adult Start:20-Aug-2022 Instruction Type:Patient Education How to Access Health Informa tion Online using Patient Portal and [employer] Apps Indication:Smoker Start:29-Jan-2022 Instruction Type:Patient Education Patient Instructions Indication:Smoker Start:29-Jan-2022 Instruction Type:Provider Instructions for Treatment Patient Instructions Indication:Smoker Start:21-Oct-2021 Instruction Type:Provider Instructions for Treatment How to Access Health Informa tion Online using Patient Portal and [employer] Apps Indication:Smoker Start:21-Oct-2021 Instruction Type:Patient Education Patient Instructions Indication:Smoker Start:01-Jun-2021 Instruction Type:Provider Instructions for Treatment How to Access Health Informa tion Online using Patient Portal and [employer] Apps Indication:Smoker Start:01-Jun-2021 Instruction Type:Patient Education Patient Instructions Indication:BMI 23.0-23.9, adult Start:06-Apr-2021 Instruction Type:Provider Instructions for Treatment How to Access Health Informa tion Online using Patient Portal and [employer] Apps Indication:BMI 23.0-23.9, adult Start:06-Apr-2021 Instruction Type:Patient Education How to Access Health Informa tion Online using Patient Portal and [employer] Apps Indication:Smoker Start:19-Jan-2021 Instruction Type:Patient Education Patient Instructions Indication:Smoker Start:19-Jan-2021 Instruction Type:Provider Instructions for Treatment How to Access Health Informa tion Online using Patient Portal and [employer] Apps Indication:Smoker Start:01-Dec-2020 Instruction Type:Patient Education Patient Instructions Indication:Smoker Start:01-Dec-2020 Instruction Type:Provider Instructions for Treatment How to Access Health Informa tion Online using Patient Portal and [employer] Apps Indication:Smoker Start:01-Sep-2020 Instruction Type:Patient Education Patient [...] for Treatment How to access health informa [employer] online Indication:Impaired fasting glucose Start:24-Nov-2016 Instruction Type:Patient Education How to access health informa tion online - Detail Indication:Impaired fasting glucose Start:24-Nov-2016 Instruction Type:Patient Education Patient Instructions Indication:Impaired fasting glucose Start:24-Nov-2016 Instruction Type:Provider Instructions for Treatment How to access health informa [employer] online Indication:Impaired fasting glucose Start:21-Jul-2016 Instruction Type:Patient Education How to access health informa tion online - Detail Indication:Impaired fasting glucose Start:21-Jul-2016 Instruction Type:Patient Education Patient Instructions Indication:Impaired fasting glucose Start:21-Jul-2016 Instruction Type:Provider Instructions for Treatment Patient Instructions Indication:Torticollis Start:19-Mar-2016 Instruction Type:Provider Instructions for Treatment How to access health informa [employer] online Indication:Hypercholesteremia Start:19-Mar-2016 Instruction Type:Patient Education How to access health informa tion online - Detail Indication:Hypercholesteremia Start:19-Mar-2016 Instruction Type:Patient Education Patient Instructions Indication:Hypercholesteremia Start:19-Mar-2016 Instruction Type:Provider Instructions for Treatment How to access health informa [employer] online Indication:Hypercholesteremia Start:25-Aug-2015 Instruction Type:Patient Education How to access health informa tion online - Detail Indication:Hypercholesteremia Start:25-Aug-2015 Instruction Type:Patient Education Patient Instructions Indication:Hypercholesteremia Start:25-Aug-2015 Instruction Type:Provider Instructions for Treatment Patient Instructions Indication:Fever and chills Start:01-Oct-2014 Instruction Type:Provider Instructions for Treatment How to access health informa [employer] online Indication:Impaired fasting glucose Start:02-Sep-2014 Instruction Type:Patient Education How to access health informa [employer] online - Detail Indication:Impaired fasting glucose Start:02-Sep-2014 [...] for referral (narrative)No reason for referral information availableThe [facility]: Family History No Family History Records FoundUnknown Family Member Name Dates Details Father Comments:[place], CABG - 74. Status:Active Mother Comments:Breast [place] Status:Active Unknown Family Member Name Dates Details Father Comments:[place], CABG - 74. Status:Active Mother Comments:Breast [place] Status:Active Unknown Family Member Name Dates Details Father Comments:[place], CABG - 74. Status:Active Mother Comments:Breast [place] Status:Active Unknown Family Member Name Dates Details Father Comments:[place], CABG - 74. Status:Active Mother Comments:Breast [place] Status:Active Unknown Family Member Name Dates Details Father Comments:[place], CABG - 74. Status:Active Mother Comments:Breast [place] Status:Active Unknown Family Member Name Dates Details Father Comments:[place], CABG - 74. Status:Active Mother Comments:Breast [place] Status:Active Unknown Family Member Name Dates Details Father Comments:[place], CABG - 74. Status:Active Mother Comments:Breast [place] Status:Active Unknown Family Member Name Dates Details Father Comments:[place], CABG - 74. Status:Active Mother Comments:Breast [place] Status:Active Unknown Family Member Name Dates Details Father Comments:[place], CABG - 74. Status:Active Mother Comments:Breast [place] Status:Active Unknown Family Member Name Dates Details Father Comments:[place], CABG - 74. Status:Active Mother Comments:Breast [place] Status:Active Unknown Family Member Name Dates Details Father Comments:[place], CABG - 74. Status:Active Mother Comments:Breast [place] Status:Active Unknown Family Member Name Dates Details Father Comments:[place], CABG - 74. Status:Active Mother Comments:Breast [place] Status:Active Unknown Family Member Name Dates Details Father Comments:[place], CABG - 74. Status:Active Mother Comments:Breast [place] Status:Active Unknown Family Member Name Dates Details Father Comments:[place], CABG - 74. Status:Active Mother Comments:Breast [place] Status:Active Unknown Family Member Name Dates Details Father Comments:[place], CABG - 74. Status:Active Mother Comments:Breast [place] Status:Active Unknown Family Member Name Dates Details Father Comments:[place], CABG - 74. Status:Active Mother Comments:Breast [place] Status:Active Unknown Family Member Name Dates Details Father Comments:[place], CABG - 74. Status:Active Mother Comments:Breast [place] Status:Active Unknown Family Member Name Dates Details Father Comments:[place], CABG - 74. Status:Active Mother Comments:Breast [place] Status:Active Unknown Family Member Name Dates Details Father Comments:[place], CABG - 74. Status:Active Mother Comments:Breast [place] Status:Active Unknown Family Member Name Dates Details Father Comments:[place], CABG - 74. Status:Active Mother Comments:Breast [place] Status:Active Unknown Family Member Name Dates Details Father Comments:[place], CABG - 74. Status:Active Mother Comments:Breast [place] Status:Active Unknown Family Member Name Dates Details Father Comments:[place], CABG - 74. Status:Active Mother Comments:Breast [place] Status:Active Unknown Family Member Name Dates Details Father Comments:[place], CABG - 74. Status:Active Mother Comments:Breast [place] Status:Active Unknown Family Member Name Dates Details Father Comments:[place], CABG - 74. Status:Active Mother Comments:Breast [place] Status:Active Unknown Family Member Name Dates Details Father Comments:[place], CABG - 74. Status:Active Mother Comments:Breast [place] Status:Active Unknown Family Member Name Dates Details Father Comments:[place], CABG - 74. Status:Active Mother Comments:Breast [place] Status:Active Unknown Family Member Name Dates Details Father Comments:[place], CABG - 74. Status:Active Mother Comments:Breast [place] Status:Active Unknown Family Member Name Dates Details Father Comments:[place], CABG - 74. Status:Active Mother Comments:Breast [place] Status:Active Unknown Family Member Name Dates Details Father Comments:[place], CABG - 74. Status:Active Mother Comments:Breast [place] Status:Active Unknown Family Member Name Dates Details Father Comments:[place], CABG - 74. Status:Active Mother Comments:Breast [place] Status:Active Unknown Family Member Name Dates Details Father Comments:[place], CABG - 74. Status:Active Mother Comments:Breast [place] Status:Active Unknown Family Member Name Dates Details Father Comments:[place], CABG - 74. Status:Active Mother Comments:Breast [place] Status:Active Unknown Family Member Name Dates Details Father Comments:[place], CABG - 74. Status:Active Mother Comments:Breast [place] Status:Active Relationship Condition Age at Onset Recorded Date/T logan mother Malignant neoplasm of breast Unknown father Cardiac disease Unknown daughter Disorder of thyroid Unknown Unknown Family Member Name Dates Details Father Comments:[place], CABG - 74. Status:Active Mother Comments:Breast [place] Status:Active Unknown Family Member Name Dates Details Father Comments:[place], CABG - 74. Status:Active Mother Comments:Breast [place] Status:Active Unknown Family Member Name Dates Details Father Comments:[place], CABG - 74. Status:Active Mother Comments:Breast [place] Status:Active Unknown Family Member Name Dates Details Father Comments:[place], CABG - 74. Status:Active Mother Comments:Breast [place] Status:Active Unknown Family Member Name Dates Details Father Comments:[place], CABG - 74. Status:Active Mother Comments:Breast [place] Status:Active Unknown Family Member Name Dates Details Father Comments:[place], CABG - 74. Status:Active Mother Comments:Breast [place] Status:Active Unknown Family Member Name Dates Details Father Comments:[place], CABG - 74. Status:Active Mother Comments:Breast [place] Status:Active Unknown Family Member Name Dates Details Father Comments:[place], CABG - 74. Status:Active Mother Comments:Breast [place] Status:Active Unknown Family Member Name Dates Details Father Comments:[place], CABG - 74. Status:Active Mother Comments:Breast [place] Status:Active Unknown Family Member Name Dates Details Father Comments:[place], CABG - 74. Status:Active Mother Comments:Breast [place] Status:Active Unknown Family Member Name Dates Details Father Comments:[place], CABG - 74. Status:Active Mother Comments:Breast [place] Status:Active Unknown Family Member Name Dates Details Father Comments:[place], CABG - 74. Status:Active Mother Comments:Breast [place] Status:Active Unknown Family Member Name Dates Details Father Comments:[place], CABG - 74. Status:Active Mother Comments:Breast CA [...] Instructions for Treatment How to access health [employer] online Indication:Hypercholesteremia Start:19-Mar-2016 Instruction Type:Patient Education How to access health informa tion online - Detail Indication:Hypercholesteremia Start:19-Mar-2016 Instruction Type:Patient Education Patient Instructions Indication:Hypercholesteremia Start:19-Mar-2016 Instruction Type:Provider Instructions for Treatment How to access health informa [employer] online Indication:Hypercholesteremia Start:25-Aug-2015 Instruction Type:Patient Education How to access health informa tion online - Detail Indication:Hypercholesteremia Start:25-Aug-2015 Instruction Type:Patient Education Patient Instructions Indication:Hypercholesteremia Start:25-Aug-2015 Instruction Type:Provider Instructions for Treatment Patient Instructions Indication:Fever and chills Start:01-Oct-2014 Instruction Type:Provider Instructions for Treatment How to access [employer] online Indication:Impaired fasting glucose Start:02-Sep-2014 Instruction Type:Patient [...] Name Dates Details How to access health [employer] online Indication:Tobacco use Start:14-Dec-2018 Instruction Type:Patient Education [...] for Treatment How to access health informa [employer] online Indication:Impaired fasting glucose Start:02-Sep-2014 Instruction Type:Patient [...] for Treatment How to access health informa [employer] online Indication:Smoker Start:30-Nov-2018 Instruction Type:Patient Education How [...] for Treatment How to access health informa [employer] online Indication:Impaired fasting glucose Start:24-Nov-2016 Instruction Type:Patient Education How to access health informa tion online - Detail Indication:Impaired fasting glucose Start:24-Nov-2016 Instruction Type:Patient Education Patient Instructions Indication:Impaired fasting glucose Start:24-Nov-2016 Instruction Type:Provider Instructions for Treatment How to access health informa [employer] online Indication:Impaired fasting glucose Start:21-Jul-2016 Instruction Type:Patient Education How to access health informa tion online - Detail Indication:Impaired fasting glucose Start:21-Jul-2016 Instruction Type:Patient Education Patient Instructions Indication:Impaired fasting glucose Start:21-Jul-2016 Instruction Type:Provider Instructions for Treatment Patient Instructions Indication:Torticollis Start:19-Mar-2016 Instruction Type:Provider Instructions for Treatment How to access health informa [employer] online Indication:Hypercholesteremia Start:19-Mar-2016 Instruction Type:Patient Education How to access health informa tion online - Detail Indication:Hypercholesteremia Start:19-Mar-2016 Instruction Type:Patient Education Patient Instructions Indication:Hypercholesteremia Start:19-Mar-2016 Instruction Type:Provider Instructions for Treatment How to access health informa [employer] online Indication:Hypercholesteremia Start:25-Aug-2015 Instruction Type:Patient Education How to access health informa tion online - Detail Indication:Hypercholesteremia Start:25-Aug-2015 Instruction Type:Patient Education Patient Instructions Indication:Hypercholesteremia Start:25-Aug-2015 Instruction Type:Provider Instructions for Treatment Patient Instructions Indication:Fever and chills Start:01-Oct-2014 Instruction Type:Provider Instructions for Treatment How to access health informa [employer] online Indication:Impaired fasting glucose Start:02-Sep-2014 Instruction Type:Patient Education How to access health informa [employer] online - Detail Indication:Impaired fasting glucose Start:02-Sep-2014 [...] for Treatment How to access health informa [employer] online Indication:Hypercholesteremia Start:19-Mar-2016 Instruction Type:Patient Education How to access health informa tion online - Detail Indication:Hypercholesteremia Start:19-Mar-2016 Instruction Type:Patient Education Patient Instructions Indication:Hypercholesteremia Start:19-Mar-2016 Instruction Type:Provider Instructions for Treatment How to access [facility] informa [employer] online Indication:Hypercholesteremia Start:25-Aug-2015 Instruction Type:Patient Education How to access health informa tion online - Detail Indication:Hypercholesteremia Start:25-Aug-2015 Instruction Type:Patient Education Patient Instructions Indication:Hypercholesteremia Start:25-Aug-2015 Instruction Type:Provider Instructions for Treatment Patient Instructions Indication:Fever and chills Start:01-Oct-2014 Instruction Type:Provider Instructions for Treatment How to access [facility] informa [employer] online Indication:Impaired fasting glucose Start:02-Sep-2014 Instruction Type:Patient [...] Treatment Name Dates Details How to access [facility] [employer] online Indication:Smoker Start:30-Apr-2020 Instruction Type:Patient Education How to access [facility] informa [employer] online - Detail Indication:Need for prophylactic vaccination [...] Dates Details How to Access Health Informa [employer] Online using Patient Portal and [employer] Indication:Smoker Start:01-Sep-2020 Instruction Type:Patient Education Patient [...] for Treatment How to access health informa [employer] online Indication:Hypercholesteremia Start:19-Mar-2016 Instruction Type:Patient Education How to access health informa tion online - Detail Indication:Hypercholesteremia Start:19-Mar-2016 Instruction Type:Patient Education Patient Instructions Indication:Hypercholesteremia Start:19-Mar-2016 Instruction Type:Provider Instructions for Treatment How to access [facility] informa [employer] online Indication:Hypercholesteremia Start:25-Aug-2015 Instruction Type:Patient Education How to access health informa tion online - Detail Indication:Hypercholesteremia Start:25-Aug-2015 Instruction Type:Patient Education Patient Instructions Indication:Hypercholesteremia Start:25-Aug-2015 Instruction Type:Provider Instructions for Treatment Patient Instructions Indication:Fever and chills Start:01-Oct-2014 Instruction Type:Provider Instructions for Treatment How to access [facility] informa [employer] online Indication:Impaired fasting glucose Start:02-Sep-2014 Instruction Type:Patient [...] Treatment Name Dates Details How to access [facility] [employer] [facility] [employer] online Indication:Smoker Start:30-Apr-2020 Instruction Type:Patient Education How to access [facility] informa [employer] online - Detail Indication:Need for prophylactic vaccination [...] Dates Details How to Access Health Informa [employer] Online using Patient Portal and [employer] Indication:Smoker Start:01-Sep-2020 Instruction Type:Patient Education Patient [...] Type:Patient Education How to access health informa [employer] online - Detail Indication:Impaired fasting glucose Start:21-Jul-2016 Instruction Type:Patient Education Patient Instructions Indication:Impaired fasting glucose Start:21-Jul-2016 Instruction Type:Provider Instructions for Treatment Patient Instructions Indication:Torticollis Start:19-Mar-2016 Instruction Type:Provider Instructions for Treatment How to access [employer] online Indication:Hypercholesteremia Start:19-Mar-2016 Instruction Type:Patient Education How to access health informa tion online - Detail Indication:Hypercholesteremia Start:19-Mar-2016 Instruction Type:Patient Education Patient Instructions Indication:Hypercholesteremia Start:19-Mar-2016 Instruction Type:Provider Instructions for Treatment How to access [employer] online Indication:Hypercholesteremia Start:25-Aug-2015 Instruction Type:Patient Education How to access health informa tion online - Detail Indication:Hypercholesteremia Start:25-Aug-2015 Instruction Type:Patient Education Patient Instructions Indication:Hypercholesteremia Start:25-Aug-2015 Instruction Type:Provider Instructions for Treatment Patient Instructions Indication:Fever and chills Start:01-Oct-2014 Instruction Type:Provider Instructions for Treatment How to access [employer] [facility] online Indication:Impaired fasting glucose Start:02-Sep-2014 Instruction Type:Patient Education How to access [employer] [facility] [employer] - Detail Indication:Impaired fasting glucose Start:02-Sep-2014 Instruction [...] Treatment Name Dates Details How to access [facility] [employer] online Indication:Impaired fasting glucose Start:29-Mar-2019 Instruction Type:Patient Education How to access [facility] [employer] - Detail Indication:Impaired fasting glucose Start:29-Mar-2019 Instruction [...] Instructions for Treatment How to access health [employer] online Indication:Impaired fasting glucose Start:21-Jul-2016 Instruction Type:Patient Education How to access health informa tion online - Detail Indication:Impaired fasting glucose Start:21-Jul-2016 Instruction Type:Patient Education Patient Instructions Indication:Impaired fasting glucose Start:21-Jul-2016 Instruction Type:Provider Instructions for Treatment Patient Instructions Indication:Torticollis Start:19-Mar-2016 Instruction Type:Provider Instructions for Treatment How to access health informa [employer] online Indication:Hypercholesteremia Start:19-Mar-2016 Instruction Type:Patient Education How [...] Instructions for Treatment How to access health [employer] online Indication:Impaired fasting glucose Start:02-Sep-2014 Instruction Type:Patient Education How to access health informa [employer] online - Detail Indication:Impaired fasting glucose Start:02-Sep-2014 [...] Name Dates Details How to access health [employer] online Indication:Impaired fasting glucose Start:29-Mar-2019 Instruction Type:Patient Education How to access health [employer] online - Detail Indication:Impaired fasting glucose Start:29-Mar-2019 [...] for Treatment How to access health informa [employer] online Indication:Hypercholesteremia Start:19-Mar-2016 Instruction Type:Patient Education How to access health informa tion online - Detail Indication:Hypercholesteremia Start:19-Mar-2016 Instruction Type:Patient Education Patient Instructions Indication:Hypercholesteremia Start:19-Mar-2016 Instruction Type:Provider Instructions for Treatment How to access health informa [employer] online Indication:Hypercholesteremia Start:25-Aug-2015 Instruction Type:Patient Education How to access health informa tion online - Detail Indication:Hypercholesteremia Start:25-Aug-2015 Instruction Type:Patient Education Patient Instructions Indication:Hypercholesteremia Start:25-Aug-2015 Instruction Type:Provider Instructions for Treatment Patient Instructions Indication:Fever and chills Start:01-Oct-2014 Instruction Type:Provider Instructions for Treatment How to access health informa [employer] online Indication:Impaired fasting glucose Start:02-Sep-2014 Instruction Type:Patient [...] Name Dates Details How to access health [employer] Indication:Tobacco use Start:14-Dec-2018 Instruction Type:Patient Education How [...] Records Found Name Dates Details Immunization Registry [place] - Effective on 10/14/2020. Expiration date unspecified Effective:14-Oct-2020 Name Dates Details Immunization Registry [place] - Effective on 10/14/2020. Expiration date unspecified Effective:14-Oct-2020 Name Dates Details Immunization Registry [place] - Effective on 10/14/2020. Expiration date unspecified Effective:14-Oct-2020 Name Dates Details Immunization Registry [place] - Effective on 10/14/2020. Expiration date unspecified Effective:14-Oct-2020 Name Dates Details Immunization Registry [place] - Effective on 10/14/2020. Expiration date unspecified Effective:14-Oct-2020 Name Dates Details Immunization Registry [place] - Effective on 10/14/2020. Expiration date unspecified Effective:14-Oct-2020 Name Dates Details Immunization Registry [place] - Effective on 10/14/2020. Expiration date unspecified Effective:14-Oct-2020 Name Dates Details Immunization Registry [place] - Effective on 10/14/2020. Expiration date unspecified Effective:14-Oct-2020 Name Dates Details Immunization Registry [place] - Effective on 10/14/2020. Expiration date unspecified Effective:14-Oct-2020 Name Dates Details Immunization Registry [place] - Effective on 10/14/2020. Expiration date unspecified Effective:14-Oct-2020 Name Dates Details Immunization Registry [place] - Effective on 10/14/2020. Expiration date unspecified Effective:14-Oct-2020 Name Dates Details Immunization Registry [place] - Effective on 10/14/2020. Expiration date unspecified Effective:14-Oct-2020 Name Dates Details Immunization Registry [place] - Effective on 10/14/2020. Expiration date unspecified Effective:14-Oct-2020 Name Dates Details Immunization Registry [place] - Effective on 10/14/2020. Expiration date unspecified Effective:14-Oct-2020 Advance Directive Response Recorded Date/ Time Advance Directives No March 15, 2014 11:02am Living Will Yes September 06 11:26am Power of Senior Technical Manager Yes September 06, 2019 11:26am Name Dates Details Immunization Registry [place] - Effective on 10/14/2020. Expiration date unspecified Effective:14-Oct-2020 Advance Directive Response Recorded Date/ Time Advance Directives No March 15, 2014 10:02am Living Will Yes September 06, 020 10:26am Power of Senior Technical Manager Yes September 06, 2019 10:26am Advance Directive Response Recorded Date/ Time Advance Directives No March 15, 2014 10:02am Living Will No June 15, 022 2:00pm Power of Senior Technical Manager No June 15, 2022 2:00pm Name Dates Details Immunization Registry [place] - Effective on 10/14/2020. Expiration date unspecified Effective:14-Oct-2020 Advance Directive Response Recorded Date/ Time Advance Directives No March 15, 2014 10:02am Living Will No June 30 2:19pm Power of Senior Technical Manager No June 30, 2022 2:19pm Name Dates Details Immunization Registry [place] - Effective on 10/14/2020. Expiration date unspecified Effective:14-Oct-2020 Advance Directive Response Recorded Date/ Time Advance Directives No March 15, 2014 11:02am Living Will No June 30 3:19pm Power of Senior Technical Manager No June 30, 2022 3:19pm Name Dates Details Immunization Registry [place] - Effective on 10/14/2020. Expiration date unspecified Effective:14-Oct-2020 Name Dates Details Immunization Registry [place] - Effective on 10/14/2020. Expiration date unspecified Effective:14-Oct-2020 Name Dates Details Immunization Registry [place] - Effective on 10/14/2020. Expiration date unspecified Effective:14-Oct-2020 Name Dates Details Immunization Registry [place] - Effective on 10/14/2020. Expiration date unspecified Effective:14-Oct-2020 Name Dates Details Immunization Registry [place] - Effective on 10/14/2020. Expiration date unspecified Effective:14-Oct-2020 Name Dates Details Immunization Registry [place] - Effective on 10/14/2020. Expiration date unspecified Effective:14-Oct-2020 Name Dates Details Immunization Registry [place] - Effective on 10/14/2020. Expiration date unspecified [...] involuntary movements Christine Tesfaye MD [address] [facility] [address] [place] [address] Referral ID Status Reason Start Date Expiration Date Visits Re quested Visits Authorized Closed 1 1 Referral ID Status Reason Start Date Expiration Date V isits Requested Visits Authorized Pending Review 1 1 Specialty Diagnoses / Procedures Referred By Angel kuo Referred To Contact Diagnoses Abnormal involuntary movements Tic disorder Christine Tesfaye MD [address] [place] [address] Referral ID Status Reason Start Date Expiration Date V isits Requested Visits Authorized [id number] Pending Review 1 1 Referral ID Status Reason Start Date Expiration Date Visits Re quested Visits Authorized [id number] Closed 1 1 Specialty Diagnoses / Procedures Referred By Contac t Referred To Contact Cardiology Diagnoses 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) Procedures Vascular US lower extremity arterial PVR Christine Tesfaye MD [address] [place] [address] Referral ID Status Reason Start Date Expiration Date V isits Requested Visits Authorized [id number] Pending Review 12/08/2023 12/07/2024 1 1 Additional Source Comments (unrecognized sect ion and content) No Status Records FoundNo Status Records FoundNo Status Records FoundNo Status Records FoundNo Status Records Found INFORMATION SOURCE (unrecogn ized section and content) DATE CREATED AUTHOR 04/06/2019 [facility] DATE CREATED AUTHOR AUTHOR'S ORGANIZ ATION 11/24/2020 [facility] DATE CREATED AUTHOR AUTHOR'S ORGANIZ ATION 08/20/2022 [facility] DATE CREATED AUTHOR AUTHOR'S ORGANIZ ATION 03/18/2025 [facility] DATE CREATED AUTHOR AUTHOR'S ORGANIZ ATION 06/01/2025 [...] Provid er, Attending Provider, Referring Provider Active Landing Scaler Relationship Specialty Start Date End Date Marybeth Thomas [address] [place] [phone] PCP - General 07/17/20 Team Status: Inactive Member Role Status Dates Dr. Marybeth Thomas DO Primary Care Provider Active Selene Larose , MACHINE GROUP LEADER-C Attending Provider, Referrin g Provider Active Landing Scaler Relationship Specialty Start Date End Date Marybeth Thomas DO [address] [place] [phone] PCP - General 07/17/20 Landing Scaler Relationship Specialty Start Date End Date Marybeth Thomas DO [address] [place] [phone] PCP - General 07/17/20 Landing Scaler Relationship Specialty Start Date End Date Marybeth Thomas DO [address] [place] [phone] PCP - General 07/17/20 Landing Scaler Relationship Specialty Start Date End Date Marybeth Thomas DO [address] [place] [phone] PCP - General 07/17/20 Landing Scaler Relationship Specialty Start Date End Date Marybeth Thomas DO [address] [place] [phone] PCP - General 07/17/20 Landing Scaler Relationship Specialty Start Date End Date Marybeth Thomas DO [address] [place] [phone] PCP - General 07/17/20 Landing Scaler Relationship Specialty Start Date End Date Marybeth Thomas DO [address] [place] [phone] PCP - General 07/17/20 Landing Scaler Relationship Specialty Start Date End Date Marybeth Thomas DO [address] [place] [phone] PCP - General 07/17/20 Landing Scaler Relationship Specialty Start Date End Date Marybeth Thomas DO [address] [place] [phone] PCP - General 07/17/20 Landing Scaler Relationship Specialty Start Date End Date Marybeth Thomas DO [address] [place] [phone] PCP - General 07/17/20 Landing Scaler Relationship Specialty Start Date End Date Marybeth Thomas DO [address] [place] [phone] PCP - General 07/17/20 Landing Scaler Relationship Specialty Start Date End Date Marybeth Thomas [address] [place] [phone] PCP - General 07/17/20 Landing Scaler Relationship Specialty Start Date End Date Marybeth Thomas [address] [facility] [address] [place] [phone] PCP - General 07/17/20 Landing Scaler Relationship Specialty Start Date End Date Marybeth Thomas [address] [facility] [address] [place] [phone] PCP - General 07/17/20 Team [...] March 11, 2025 End: March 11, 2025 Landing Scaler Relationship Specialty Start Date End Date Marybeth Thomas DO [address] [facility] [address] [place] [phone] PCP - General 07/17/20 Reason [...] BE BASED ON THE PRIMARY CLINICAL RECORDS. [facility] [employer] [facility]. provides no warranty or guarantee of the accuracy or completeness of information in this document.
--- NOTE | 2025-06-28 19:55 | CASEMGMT ---
Care Management Face to Face with patient for initial transition planning/care coordination assessment in the ED. This internal communications writer introduced self and role at [facility]. Patient alert and oriented. Patient willing to participate in assessment and is able to answer all questions appropriately. Patient's , Laura, at bedside. Care providers, pharmacy, and demographics verified. Admitting Diagnosis: NSTEMI, initial episode of care Other diagnosis history: tobacco use/current smoker, COPD and essential tremor PCP: Martha Specialists: [facility], urology. Botox shots for neck. Preferred Pharmacy: [facility] Insurance: [employer] Prescription Benefit: yes Living Will/HPOA: none and denies information LNOK: Laura. Daughters Denisse and Allegra Living Arrangements: lives with in a ranch style home with 4 steps to enter. Independent with all ADLs/IADLs at baseline. Transportation: patient drives some or patient's . DME: O2 2L at night through [employer] HHC: none SNF/Rehab: none Community Resources: none Patient goals: Patient wishes to discharge home, denies need for home health care at this time. Patient denies any further needs or concerns at this time. Disposition Plan: admission to acute; RN CM/SW to follow for discharge planning needs that may arise. Molly Jennings, SECURITY ASSURANCE SPECIALIST, ERP MANAGER
[2025-06-28 20:15] LABS: Troponin T High Sens 2 HR 294 ng/L (<=22)
[2025-06-28] MEDS: Nicotine (PBKC) 14 MG Patch TD (20:53)
--- NOTE | 2025-06-28 21:10 | PCM.CONS.C ---
Assessment & Plan Assessment/Plan (1) NSTEMI, initial episode of care: PLAN: Patient presents with classic chest discomfort suggestive of unstable angina with EKG changes as well as mild troponin elevation. My recommendation will be as follows Aspirin Intravenous heparin Intravenous nitroglycerin Admit to the intensive care unit Metoprolol 25 mg twice a day Lipitor 80 mg a day Intravenous fluids with normal saline at 75 cc an hour Patient to undergo cardiac catheterization in AM. The risk benefits alternatives have been explained to him he understands and agrees to proceed. Above also discussed with ecology teacher and the Supervisor Prep call team would be notified as this would be off hours HPI Consult Data Date of Consult: 06/28/25 HPI Narrative HPI Narrative: VISHAL GAR, is a 70 M who presents to the emergency room complaining of chest discomfort described as a heaviness and burning which has been going on for at least a week or so. He has a history of hypertension he does not know about his cholesterol status and he is a tobacco user. On presentation to the emergency room he was still having chest discomfort and EKG was done which demonstrated EKG changes with ST depression and ST elevation in lead V2. He was given sublingual nitroglycerin and I was called for further evaluation and management. He denied any dizziness or diaphoresis near-syncope or syncope he has not had any previous cardiac evaluation. He was started on intravenous nitroglycerin and his chest discomfort has dissipated. [ ] [facility] Medical History Loss of hearing Wears glasses Prostate disease Injury of head and neck Tremor Vertigo Gastric reflux Smoker COPD (chronic obstructive pulmonary disease) Shortness of breath on exertion Chronic cough Leg cramps History of pain when walking History of stress test Cancer Eczema Vitamin D deficiency Hypercholesterolemia History of kidney stones RUQ pain Gallbladder polyp Home Medications ?Medication ?Instructions ?Recorded ?Last Taken ?Type fluticasone fur. 200 mcg-umeclid 1 inh inhalation DAILY 06/28/25 06/25/25 History 62.5 mcg-vilant 25 mcg inhalat.powder (Trelegy Ellipta) propranolol 60 mg tablet 60 mg PO BID 06/28/25 Unknown History Allergy/AdvReac Type Severity Reaction Status Date / Time hydrocodone bitartrate (From AdvReac Other Verified 06/28/25 17:11 Vicodin) Family History Mother Breast cancer Father Heart disease Daughter Thyroid disorder Surgical History Hx of colonoscopy history of surgery for kidney stones Social History Smoking Status: Current every day smoker tobacco type: cigarettes quit status: considering quitting alcohol intake: never substance use type: does not use ROS Constitutional Constitutional: Denies fever(s) or weight loss Eyes Eyes: Reports systems reviewed and no addt'l complaints, except as documented ENT HEENT: Reports systems reviewed and no addt'l complaints, except as documented Cardiovascular Cardiovascular: Reports chest pain at rest, chest pain with activity, dyspnea at rest and dyspnea on exertion; Denies edema, palpitations or paroxysmal nocturnal dyspnea Respiratory/Chest Respiratory/Chest: Reports dyspnea on exertion, shortness of breath at rest and shortness of breath with exertion; Denies productive cough Gastrointestinal Gastrointestinal: Denies change in bowel habits, nausea, vomiting or weight changes Genitourinary Genitourinary: Denies difficulty urinating Musculoskeletal Musculoskeletal: Denies joint stiffness or muscle weakness Integumentary Integumentary: Denies lesions Neurologic Neurologic: Denies dizziness or syncope Psychiatric Psychiatric: Denies anxiety Endocrine Endocrinology: Denies excessive sweating or fatigue Hematologic/Lymphatic Hematologic/Lymphatic: Denies anemia Allergic/Immunologic Allergic/Immunologic: Denies seasonal rhinorrhea Physical Exam Const alert and oriented x3 Orientation / Consciousness: awake HEENT normocephalic Eyes PERRL Neck Neck Narrative: Mild torticollis Carotids: normal carotid upstroke Chest inspection of chest normal Resp clear to auscultation bilaterally Cardio regular rate and regular rhythm Rate: regular rate Rhythm: regular rhythm GI normal to inspection, nondistended, normoactive bowel sounds Extremity no clubbing, cyanosis or edema Psych mental status grossly normal Objective Data Vital Signs: Vital Signs Temp Pulse Resp BP Pulse Ox O2 Del Method 97.9 F 81 16 161/90 H 95 Room Air 06/28/25 19:11 06/28/25 19:36 06/28/25 19:11 06/28/25 19:36 06/28/25 19:11 06/28/25 19:00 Oxygen Delivery Method Room Air Weight: 159 lb 2.78 oz Body Mass Index (BMI) 22.1 Lab / Micro Data 06/28/25 17:27 06/28/25 17:27 Labs: Laboratory Results - last 24 hr 06/28/25 17:27: WBC 14.7 H, RBC 5.66, Hgb 16.6 H, Hct 50.9, MCV 89.9, MCH 29.3, MCHC 32.6, RDW Std Deviation 42.2, RDW Coeff of Adele 12.9, Plt Count 213, MPV 11.9, Immature Gran % (Auto) 1.600 H, Neut % (Auto) 69.4, Lymph % (Auto) 18.0 L, [place] % (Auto) 7.1, Eos % (Auto) 2.5, Baso % (Auto) 1.4 H, Absolute Neuts (auto) 10.2 H, Absolute Lymphs (auto) 2.65, Nucleated RBC % 0, PT 13.4, INR 1.0, APTT 30.5, Sodium 141, Potassium 3.8, Chloride 101, Carbon Dioxide 25.7, Anion Gap 15, BUN 23 H, Creatinine 1.77 H, Estim Creat Clear Calc 39.52 L, Est GFR (MDRD) Non-Af 41 L, BUN/Creatinine Ratio 12.7, Glucose 153 H, Hemoglobin A1c 5.6, Calcium 9.7, Troponin T High Sens 236 H* 06/28/25 19:40: Troponin T Hi Sens 2 Hr 294 H* Cardiology Labs/Tests 06/28/25 17:27: WBC 14.7 H, RBC 5.66, Hgb 16.6 H, Hct 50.9, MCV 89.9, MCH 29.3, MCHC 32.6, Plt Count 213, MPV 11.9, Immature Gran % (Auto) 1.600 H, Neut % (Auto) 69.4, Lymph % (Auto) 18.0 L, [place] % (Auto) 7.1, Eos % (Auto) 2.5, Baso % (Auto) 1.4 H, Absolute Neuts (auto) 10.2 H, Nucleated RBC % 0, PT 13.4, INR 1.0, APTT 30.5, Sodium 141, Potassium 3.8, Chloride 101, Carbon Dioxide 25.7, Anion Gap 15, BUN 23 H, Creatinine 1.77 H, Est GFR (MDRD) Non-Af 41 L, BUN/Creatinine Ratio 12.7, Glucose 153 H, Hemoglobin A1c 5.6, Calcium 9.7 Rhythm: EKG: ECHO: Stress Test: Cardiac Cath: PCI: CT Surgery: Holter monitor: EPS: PPM: CXR: Chest CT Scan: Radiography Diagnostic Testing: Radiology Impression Chest X-Ray 06/28/25 18:00 IMPRESSION: No Acute Findings. Reading Location: [facility] RA Risk Score for UA/STEMI Assesmment (YES = 1) Risk Stratification Applicable: Yes Age > or = 65: Yes > or = 3 CAD risk factors (HTN, Hypercholesterolemia, Diabetes, family hx, current smoker): No Known CAD (Stenosis > or = 50%): No ASA used in past 7 days: No Severe angina (> or = 2 episodes in 24 hrs): Yes EKG ST change > or = 0.5mm: Yes Positive cardiac markers: Yes Score RA Risk Score of mortality/ recurrent ischemic event over the next 14 days: 4 = 19.9% - Intermediate
[2025-06-28] MEDS: 0.9% Normal Saline (1000mL) 1,000 ML 75 ML IV (21:50)
[2025-06-28] MEDS: MELATONIN 3 MG TABLET PO (22:04)
[2025-06-28 22:45] LABS: Troponin T High Sens 4 HR 351 ng/L (<=22)
[2025-06-29] VITALS (17 sets, daily range): BP systolic 112–144; BP diastolic 67–85; PULSE 65–83; RESP 13–20; TEMP 36.5–36.6; O2SAT 93–100; BMI 21.9
[2025-06-29 02:22] LABS: Partial Thromboplast Time 113.2 Seconds (24.1-36.2)
[2025-06-29 04:22] LABS: Hematocrit 45.5 % (40-54); Hemoglobin 15.0 g/dL (13.0-16.5); Immature Granulocytes Count 0.190 X10^3/uL (0.0-0.0); Mean Corp Hgb Conc 33.0 g/dL (32-36); Mean Corpuscular Volume 89.2 fL (80-94); Mean Platelet Vol. 11.6 fl (6.2-12.0); NRBC Flagged by Analyzer 0 % (0-5); Platelet Count 194 K/mm3 (150-450); RBC Distribution Width CV 12.8 % (11.6-14.6); RBC Distribution Width SD 42.4 fl (35.1-43.9); Red Blood Count 5.10 M/mm3 (4.6-6.2); White Blood Count 17.2 K/mm3 (4.4-11.0)
[2025-06-29 04:44] LABS: Anion Gap 12 (5-15); BUN 20 mg/dL (4-19); BUN/Creat Ratio 13.4 RATIO (10-20); Calcium,Total 9.3 mg/dL (7.6-11.0); Carbon Dioxide 24.1 mmol/L (21.0-32.0); Chloride 104 mmol/L (98-108); Estimated Creatinine Clearance 45.52 ml/min (50-250); Glucose 110 mg/dL (70-99); Potassium 4.3 mmol/L (3.3-5.1)
[2025-06-29 05:15] LABS: Cholesterol 193 mg/dL (<=200); Low Density Lipoprotein Calc. 138 mg/dL; Triglycerides 132 mg/dL; Very Low Density Lipoprotein 26 mg/dL (5-40); cholesterol:hdl ratio screen 6.19
--- NOTE | 2025-06-29 07:07 | PCM.PN.HOSP ---
Reason for Visit Chief Complaint: Chest pain and shortness of breath with exertion Objective Data Objective Data Vital Signs: Vital Signs Temp Pulse Resp BP Pulse Ox O2 Del Method O2 Flow Rate 97.9 F 75 16 114/78 97 Nasal Cannula 2 06/29/25 04:00 06/29/25 06:00 06/29/25 06:00 06/29/25 06:00 06/29/25 06:00 06/29/25 06:00 06/29/25 06:00 Oxygen Flow Rate (L/min) 2 Oxygen Delivery Method Nasal Cannula Weight: 71 kg Body Mass Index (BMI) 21.9 Intake & Output: Intake and Output for Last 24 Hours 06/27/25 06/28/25 06/29/25 23:59 23:59 23:59 Intake Total 11.2 / 11.2 60.22 / 60.22 Output Total 50 / 50 350 / 350 Balance -38.8 / -38.8 -289.78 / -289.78 Lab / Micro Data 06/29/25 04:07 06/29/25 04:07 Labs: Laboratory Results - last 24 hr 06/28/25 17:27: WBC 14.7 H, RBC 5.66, Hgb 16.6 H, Hct 50.9, MCV 89.9, MCH 29.3, MCHC 32.6, RDW Std Deviation 42.2, RDW Coeff of Adele 12.9, Plt Count 213, MPV 11.9, Immature Gran % (Auto) 1.600 H, Neut % (Auto) 69.4, Lymph % (Auto) 18.0 L, [place] % (Auto) 7.1, Eos % (Auto) 2.5, Baso % (Auto) 1.4 H, Absolute Neuts (auto) 10.2 H, Absolute Lymphs (auto) 2.65, Nucleated RBC % 0, PT 13.4, INR 1.0, APTT 30.5, Sodium 141, Potassium 3.8, Chloride 101, Carbon Dioxide 25.7, Anion Gap 15, BUN 23 H, Creatinine 1.77 H, Estim Creat Clear Calc 39.52 L, Est GFR (MDRD) Non-Af 41 L, BUN/Creatinine Ratio 12.7, Glucose 153 H, Hemoglobin A1c 5.6, Calcium 9.7, Troponin T High Sens 236 H*, TSH 1.230 06/28/25 19:40: Troponin T Hi Sens 2 Hr 294 H* 06/28/25 21:55: Troponin T Hi Sens 4Hr 351 H* 06/29/25 01:45: APTT 113.2 H* 06/29/25 04:07: WBC 17.2 H, RBC 5.10, Hgb 15.0, Hct 45.5, MCV 89.2, MCH 29.4, MCHC 33.0, RDW Std Deviation 42.4, RDW Coeff of Adele 12.8, Plt Count 194, MPV 11.6, Immature Gran % (Auto) 1.100 H, Neut % (Auto) 75.8 H, Lymph % (Auto) 13.3 L, [place] % (Auto) 7.9, Eos % (Auto) 1.1, Baso % (Auto) 0.8, Absolute Neuts (auto) 13.1 H, Absolute Lymphs (auto) 2.30, Nucleated RBC % 0, Sodium 140, Potassium 4.3, Chloride 104, Carbon Dioxide 24.1, Anion Gap 12, BUN 20 H, Creatinine 1.52 H, Estim Creat Clear Calc 45.52 L, Est GFR (MDRD) Non-Af 49 L, BUN/Creatinine Ratio 13.4, Glucose 110 H, Calcium 9.3, Triglycerides 132, Cholesterol 193, LDL Cholesterol, Calc 138, VLDL Cholesterol 26, HDL Cholesterol 31 L, Cholesterol/HDL Ratio 6.19 Radiography Diagnostic Testing: Radiology Impression Chest X-Ray 06/28/25 18:00 IMPRESSION: No Acute Findings. Reading Location: [id number]
[2025-06-29] MEDS: Aspirin E.C. 81 MG Tablet PO (07:40)
--- NOTE | 2025-06-29 07:52 | EKG12_ITS ---
Test Reason : CATH Blood Pressure : */* mmHG Vent. Rate : 78 BPM Atrial Rate : * BPM P-R Int : * ms QRS Dur : 78 ms QT Int : 352 ms P-R-T Axes : * 1 120 degrees QTcB Int : 401 ms Accelerated Junctional rhythm vs Sinus Rhythm ST & T wave abnormality, consider anterolateral ischemia Abnormal ECG Artifact obscuring rhythm assessment Confirmed by Gustavo Diallo ([id number]), editorial writer ADRIAN TRUONG ([id number]) on 07/02/2025 8:48:42 AM Referred By: NARESH Confirmed By: Gustavo Diallo
--- NOTE | 2025-06-29 09:48 | PN.CARD_ITS ---
Subjective Subjective Patient seen and evaluated. Underwent cardiac catheterization today Objective Data Vital Signs: Vital Signs Temp Pulse Resp BP Pulse Ox O2 Del Method O2 Flow Rate 97.9 F 83 20 H 116/84 H 96 Nasal Cannula 2 06/29/25 08:00 06/29/25 08:00 06/29/25 08:00 06/29/25 08:00 06/29/25 08:16 06/29/25 08:16 06/29/25 08:16 Oxygen Flow Rate (L/min) 2 Oxygen Delivery Method Nasal Cannula Weight: 156 lb 8.451 oz Body Mass Index (BMI) 21.9 Intake & Output: Intake and Output for Last 24 Hours 06/27/25 06/28/25 06/29/25 23:59 23:59 23:59 Intake Total 11.2 / 11.2 92.44 / 92.44 Output Total 50 / 50 350 / 350 Balance -38.8 / -38.8 -257.56 / -257.56 Lab / Micro Data 06/29/25 04:07 06/29/25 04:07 Labs: Laboratory Results - last 24 hr 06/28/25 17:27: WBC 14.7 H, RBC 5.66, Hgb 16.6 H, Hct 50.9, MCV 89.9, MCH 29.3, MCHC 32.6, RDW Std Deviation 42.2, RDW Coeff of Adele 12.9, Plt Count 213, MPV 11.9, Immature Gran % (Auto) 1.600 H, Neut % (Auto) 69.4, Lymph % (Auto) 18.0 L, [place] % (Auto) 7.1, Eos % (Auto) 2.5, Baso % (Auto) 1.4 H, Absolute Neuts (auto) 10.2 H, Absolute Lymphs (auto) 2.65, Nucleated RBC % 0, PT 13.4, INR 1.0, APTT 30.5, Sodium 141, Potassium 3.8, Chloride 101, Carbon Dioxide 25.7, Anion Gap 15, BUN 23 H, Creatinine 1.77 H, Estim Creat Clear Calc 39.52 L, Est GFR (MDRD) Non-Af 41 L, BUN/Creatinine Ratio 12.7, Glucose 153 H, Hemoglobin A1c 5.6, Calcium 9.7, Troponin T High Sens 236 H*, TSH 1.230 06/28/25 19:40: Troponin T Hi Sens 2 Hr 294 H* 06/28/25 21:55: Troponin T Hi Sens 4Hr 351 H* 06/29/25 01:45: APTT 113.2 H* 06/29/25 04:07: WBC 17.2 H, RBC 5.10, Hgb 15.0, Hct 45.5, MCV 89.2, MCH 29.4, MCHC 33.0, RDW Std Deviation 42.4, RDW Coeff of Adele 12.8, Plt Count 194, MPV 11.6, Immature Gran % (Auto) 1.100 H, Neut % (Auto) 75.8 H, Lymph % (Auto) 13.3 L, Mont[place] % (Auto) 7.9, Eos % (Auto) 1.1, Baso % (Auto) 0.8, Absolute Neuts (auto) 13.1 H, Absolute Lymphs (auto) 2.30, Nucleated RBC % 0, Sodium 140, Potassium 4.3, Chloride 104, Carbon Dioxide 24.1, Anion Gap 12, BUN 20 H, Creatinine 1.52 H, Estim Creat Clear Calc 45.52 L, Est GFR (MDRD) Non-Af 49 L, BUN/Creatinine Ratio 13.4, Glucose 110 H, Calcium 9.3, Triglycerides 132, Cholesterol 193, LDL Cholesterol, Calc 138, VLDL Cholesterol 26, HDL Cholesterol 31 L, Cholesterol/HDL Ratio 6.19 Cardiology Labs/Tests 06/28/25 17:27: WBC 14.7 H, RBC 5.66, Hgb 16.6 H, Hct 50.9, MCV 89.9, MCH 29.3, MCHC 32.6, Plt Count 213, MPV 11.9, Immature Gran % (Auto) 1.600 H, Neut % (Auto) 69.4, Lymph % (Auto) 18.0 L, [place] % (Auto) 7.1, Eos % (Auto) 2.5, Baso % (Auto) 1.4 H, Absolute Neuts (auto) 10.2 H, Nucleated RBC % 0, PT 13.4, INR 1.0, APTT 30.5, Sodium 141, Potassium 3.8, Chloride 101, Carbon Dioxide 25.7, Anion Gap 15, BUN 23 H, Creatinine 1.77 H, Est GFR (MDRD) Non-Af 41 L, BUN/Creatinine Ratio 12.7, Glucose 153 H, Hemoglobin A1c 5.6, Calcium 9.7 06/29/25 01:45: APTT 113.2 H* 06/29/25 04:07: WBC 17.2 H, RBC 5.10, Hgb 15.0, Hct 45.5, MCV 89.2, MCH 29.4, MCHC 33.0, Plt Count 194, MPV 11.6, Immature Gran % (Auto) 1.100 H, Neut % (Auto) 75.8 H, Lymph % (Auto) 13.3 L, [place] % (Auto) 7.9, Eos % (Auto) 1.1, Baso % (Auto) 0.8, Absolute Neuts (auto) 13.1 H, Nucleated RBC % 0, Sodium 140, Potassium 4.3, Chloride 104, Carbon Dioxide 24.1, Anion Gap 12, BUN 20 H, C reatinine 1.52 H, Est GFR (MDRD) Non-Af 49 L, BUN/Creatinine Ratio 13.4, Glucose 110 H, Calcium 9.3, Triglycerides 132, Cholesterol 193, VLDL Cholesterol 26, HDL Cholesterol 31 L, Cholesterol/HDL Ratio 6.19 Rhythm: EKG: ECHO: Stress Test: Cardiac Cath: PCI: CT Surgery: Holter monitor: EPS: PPM: CXR: Chest CT Scan: Radiography Diagnostic Testing: Radiology Impression Chest X-Ray 06/28/25 18:00 IMPRESSION: No Acute Findings. Reading Location: [facility] Physical Exam Const alert and oriented x3 Orientation / Consciousness: awake HEENT normocephalic Eyes PERRL Neck Neck Narrative: Mild torticollis Carotids: normal carotid upstroke Chest inspection of chest normal Resp clear to auscultation bilaterally Cardio regular rate and regular rhythm Rate: regular rate Rhythm: regular rhythm GI normal to inspection, nondistended, normoactive bowel sounds Extremity no clubbing, cyanosis or edema Psych mental status grossly normal Assessment & Plan Assessment/Plan (1) NSTEMI, initial episode of care: PLAN: Patient presents with classic chest discomfort suggestive of unstable angina with EKG changes as well as mild troponin elevation. My recommendation will be as follows * Aspirin * Intravenous heparin * Intravenous nitroglycerin * Patient underwent cardiac catheterization today which demonstrated normal left main coronary artery, left anterior descending artery with 99% proximal stenosis mid 80% stenosis and distal 70% stenosis. * Ramus intermedius with 95% proximal stenosis * Proximal circumflex artery with 90% mid stenosis * Dominant right coronary artery with mid to distal 80% stenosis and then bifurcates to posterior descending artery and posterolateral artery * Echocardiogram demonstrating left ventricular systolic dysfunction with estimated ejection fraction of 35 to 40% with segmental wall motion abnormalities involving the mid to distal anterior wall apex and lateral wall. * Based on the above angiographic findings I would recommend that the patient be transferred to a tertiary care facility for consideration for coronary bypass surgery. * Reduce metoprolol to 12-1/2 mg twice a day on account of hypotension * Continue high intensity statin.
--- NOTE | 2025-06-29 10:10 | CL.D_ITS ---
Patient Name: VISHAL GAR Study Date: 06/29/2025 Performing: Alejandro Bernardo MD Ht: 71 inches 180.34 cm : 1955 Wt: 156.7 lbs 71 kg Age: 70 Gender: male BSA: 1.9 PROCEDURE(S) PERFORMED [id number]-([id number])[facility] CLINICAL PROFILE AND INDICATIONS Indications: Worsening Angina Heart Failure: None Stress/Imaging Stress/Image Study Performed: No CONCLUSIONS Severe triple-vessel disease involving the proximal LAD, proximal circumflex artery, obtuse marginal branch and ramus intermedius. Distal right coronary artery disease and left ventricular systolic dysfunction present. RECOMMENDATIONS Surgery consult for coronary revascularization DESCRIPTION OF PROCEDURE The patient arrived to the procedure lab. The risks and benefits of the procedure as well as a full description of our services here and current unavailability of surgical backup were fully explained to the patient and/or their significant other prior to the catheterization. The Timeout was completed, verifying the correct patient and procedure. The patient's procedural site was prepped and draped in the usual fashion. Local anesthetic was given subcutaneously to right radial region with Lidocaine 2%. Local anesthetic was given subcutaneously to right groin region with Lidocaine 2%. Using a modified Seldinger technique, arterial access was obtained via the right radial artery, a 6Fr sheath was inserted., arterial access was obtained via the right femoral artery, a 5Fr sheath was inserted. Left Coronary Artery selective angiography was performed in multiple views using a 5 Fr. JL4 catheter. Right Coronary Artery selective angiography was then performed in multiple views using a 5 Fr. 3DRC (Austen) catheter. Right Coronary Artery selective angiography was then performed in multiple views using a 5 Fr. JR 4 catheter.Contrast was injected through the sheath and the Right Iliac and Femoral artery were assessed for possible closure device.The arterial sheath was pulled and a TR Band was applied for hemostasis. 10cc air. The arterial sheath was pulled and a Mynx closure device was deployed for hemostasis CORONARY ANGIOGRAPHY DOMINANCE: Right Dominant LEFT HEART ASSESSMENT Left Ventricular Ejection Fraction: by Echo 35 % Anterior Akinesis Depressed Left Ventricular systolic function LEFT MAIN: Angiographically normal LEFT ANTERIOR DESCENDING ARTERY: Proximal 99% stenosis mid 80% stenosis and distal 70% stenosis noted CIRCUMFLEX ARTERY: Proximal 90% stenosis noted. First obtuse marginal branch bifurcates with a 60% stenosis present. RAMUS: Proximal high-grade 90% stenosis present RIGHT CORONARY ARTERY: Medium size vessel with mild proximal disease and distal 80% focal stenosis prior to the bifurcation of the posterior descending artery and posterolateral vessel. COLLATERAL FLOW: Collateral flow from Right to Left COMPLICATIONS No Complications PROCEDURE MEDICATIONS Fentanyl 50 mcg IV Versed 1 mg IV Oxygen: 2 L/min via nasal cannula Heparin given IA 06/29/2025 09:13:37 Nitro glycerin 25mg / 250ml D5W @ 5 mcg/min IV started 06/29/2025 09:45:18 Verapamil 2.5mg, Ntg 100mcgs, 3000 units of Heparin given IA 06/29/2025 09:13:37 SUMMARY OF HEMODYNAMIC DATA Time AIR REST ECG 09:04:22 AO 103/67 (83) SA 09:24:54 Signed By Alejandro Bernardo MD On 06/29/2025 10:09:34 Alejandro Bernardo MD
--- NOTE | 2025-06-29 10:35 | PCM.DC.SUM ---
Providers Date of Admission: 06/28/25 Date of Discharge: 06/29/25 Primary Care Physician: Dr. Marybeth Thomas, Consultations 06/28/25 20:25 Consult: Cardiology Routine Consulting Provider: Alejandro Bernardo Reason for Consult: NSTEMI EMERGENT Consult: No MD Notified: No Date Notified: 06/28/25 Time Notified: 19:28 Reason For Visit: NSTEMI Diagnosis Discharge Diagnosis (1) NSTEMI, initial episode of care: Status: Acute Code(s): I21.4 - Non-ST elevation (NSTEMI) myocardial infarction Medications at Discharge Home Medications OXYGEN - Supplemental ([facility] INFORMATIONAL USE ONLY) 06/28/25 fluticasone fur. 200 mcg-umeclid 62.5 mcg-vilant 25 mcg inhalat.powder (Trelegy Ellipta) 1 inh inhalation DAILY 06/28/25 propranolol 60 mg tablet 60 mg PO BID 06/28/25 Hospital Course Operations None Procedures 2-D Echocardiogram, Cardiac catheterization, EKG and - (Chest x-ray) Summary of Care Provided Minutes Spent on Discharge: 37 Hospital Course: Mr. Cisneros is a 70-year-old white male who presented to the emergency department [facility] on 06/28/2025 with a chief complaint of chest pain. He has concomitant shortness of breath with exertion. Functional status at baseline is good. He has no history of coronary disease. He does have a history of tobacco abuse and is a current smoker. On presentation he had been having intermittent chest pain for about a week. It was a burning sensation that occurs across his chest and he became significantly short of breath with only walking across the room. Chest pain also was reportedly worse with exertion. Vital signs on presentation showed temperature 96.9, heart rate 93, respiratory 18, blood pressure was 115/60 and pulse ox was 98% on room air. CBC showed a white count of 14.7 with a erythrocytosis having a hemoglobin of 16.6. Chemistry panel showed elevated creatinine at 1.77 with a blood glucose of 153. Initial troponin was 236. Chest x-ray is unremarkable. EKG showed ST depression in the inferior and lateral leads. Given these findings in the emergency department cardiology was consulted and he was started on a heparin drip for NSTEMI. He was given a nitro drip for his chest pain and admitted to the intensive care unit. He was taken for cardiac catheterization on the a.m. of 06/28/2025 at which time he was found to have severe triple-vessel disease involving the proximal LAD, proximal circumflex, obtuse marginal branch and ramus intermedius with distal right coronary artery disease and left ventricular systolic dysfunction. Estimated ejection fraction on LV gram was 35% and anterior akinesis was identified. Transfer to tertiary center was recommended and Dr. Bernardo reached out to [facility]. Patient was accepted by Dr. Cedillo from cardiothoracic surgery at [facility]. Bed was available and he was transferred to the heart and lung unit for evaluation for cardiac bypass. Hemoglobin A1c was 5.6. Cholesterol showed a total cholesterol 193 with an LDL of 138, HDL 31, and triglycerides of 132. Discharge diagnoses: NSTEMI Severe triple-vessel CAD Hyperlipidemia Erythrocytosis CKD-stage unclear Reactive leukocytosis Abnormal EKG COPD Tobacco abuse BPH without obstruction GERD History of nephrolithiasis Vitamin D deficiency Physical Exam Narrative Patient was chest pain-free at the time of my evaluation getting ready go to the [employer]. 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, currently appears comfortable and nontoxic General Appearance: cooperative, comfortable, well kempt and well developed Exam Limitations: no limitations HEENT normocephalic, head/scalp atraumatic and moist oral mucous membranes Resp normal respiratory effort, no retractions, no use of accessory muscles and clear to auscultation bilaterally Auscultation: Negative for crackles, rhonchi or wheezes Cardio regular rate, regular rhythm, S1 normal heart sound, S2 normal heart sound, no murmurs, no rub, no gallops and no clicks GI normal to inspection, nondistended, normoactive bowel sounds, soft to palpation and non-tender Extremity no clubbing, cyanosis or edema Extremity Narrative: Pedal and radial pulses are 2+ Neuro moves all extremities and no focal motor deficits Speech: speech normal Psych affect normal Psych Narrative: Pleasant, interactive appropriately Weight / BMI Weight Weight: 71 kg Body Mass Index (BMI) 21.9 ABG / Lab / Microbiology Data 06/29/25 04:07 06/29/25 04:07 Laboratory: Laboratory Results - last 24 hr 06/28/25 17:27: WBC 14.7 H, RBC 5.66, Hgb 16.6 H, Hct 50.9, MCV 89.9, MCH 29.3, MCHC 32.6, RDW Std Deviation 42.2, RDW Coeff of Adele 12.9, Plt Count 213, MPV 11.9, Immature Gran % (Auto) 1.600 H, Neut % (Auto) 69.4, Lymph % (Auto) 18.0 L, [place] % (Auto) 7.1, Eos % (Auto) 2.5, Baso % (Auto) 1.4 H, Absolute Neuts (auto) 10.2 H, Absolute Lymphs (auto) 2.65, Nucleated RBC % 0, PT 13.4, INR 1.0, APTT 30.5, Sodium 141, Potassium 3.8, Chloride 101, Carbon Dioxide 25.7, Anion Gap 15, BUN 23 H, Creatinine 1.77 H, Estim Creat Clear Calc 39.52 L, Est GFR (MDRD) Non-Af 41 L, BUN/Creatinine Ratio 12.7, Glucose 153 H, Hemoglobin A1c 5.6, Calcium 9.7, Troponin T High Sens 236 H*, TSH 1.230 06/28/25 19:40: Troponin T Hi Sens 2 Hr 294 H* 06/28/25 21:55: Troponin T Hi Sens 4Hr 351 H* 06/29/25 01:45: APTT 113.2 H* 06/29/25 04:07: WBC 17.2 H, RBC 5.10, Hgb 15.0, Hct 45.5, MCV 89.2, MCH 29.4, MCHC 33.0, RDW Std Deviation 42.4, RDW Coeff of Adele 12.8, Plt Count 194, MPV 11.6, Immature Gran % (Auto) 1.100 H, Neut % (Auto) 75.8 H, Lymph % (Auto) 13.3 L, [place] % (Auto) 7.9, Eos % (Auto) 1.1, Baso % (Auto) 0.8, Absolute Neuts (auto) 13.1 H, Absolute Lymphs (auto) 2.30, Nucleated RBC % 0, Sodium 140, Potassium 4.3, Chloride 104, Carbon Dioxide 24.1, Anion Gap 12, BUN 20 H, Creatinine 1.52 H, Estim Creat Clear Calc 45.52 L, Est GFR (MDRD) Non-Af 49 L, BUN/Creatinine Ratio 13.4, Glucose 110 H, Calcium 9.3, Triglycerides 132, Cholesterol 193, LDL Cholesterol, Calc 138, VLDL Cholesterol 26, HDL Cholesterol 31 L, Cholesterol/HDL Ratio 6.19 Radiography Diagnostic Testing: Radiology Impression Chest X-Ray 06/28/25 18:00 IMPRESSION: No Acute Findings. Reading Location: [facility] D/C Instructions DC O2, CPAP, BIPAP Needs Home O2 Discharge instructions: No Meaningful Use Info Meaningful Use Meaningful Use Diagnoses (Choose all that apply): None applicable Discharge Plan Admission Admit Date/Time: 06/28/25 19:28 Primary Reason for Your Visit: Chest pain Attending Provider: Samantha Millan Primary Care Provider: Marybeth Thomas Consulting Providers: Bill Lew Discharge Orders/Prescriptions Prescriptions: No Action propranolol 60 mg tablet 60 mg PO BID Trelegy Ellipta 200-62.5-25 mcg blister with device 1 inh inhalation DAILY (DME) OXYGEN - Supplemental ([facility] INFORMATIONAL USE ONLY) See Rx Instructions .ROUTE .MEDSUPPLY Rx Instructions: 2lpm @ Referrals / Follow Up: Marybeth Thomas DO [Primary Care Provider, Internal Medicine] Disposition Disposition (needs filled in before D/C Order can be placed): Acute Care Hospital Charges/Coding Visit Charges Inpatient E&M: 56238 Disch Hosp >30min
--- NOTE | 2025-06-29 10:55 | CASEMGMT ---
DB CAPPS NOTE: Per Dr Millan, pt being transferred to tertiary hospital & has been accepted @ [facility]. DB CAPPS verified [facility] is In-network w/pt's [facility] insurance plan. Guera ELIZABETH RN, CM
[2025-06-29] MEDS: 0.9% Normal Saline (1000mL) 1,000 ML 75 ML IV (11:10)
[2025-06-29] MEDS: Nicotine (PBKC) 14 MG Patch TD (11:10)
[2025-06-29 11:24] LABS: Partial Thromboplast Time 109.5 Seconds (24.1-36.2)
--- NOTE | 2025-06-29 11:31 | NURSING ---
This RN called and gave report to DB Vazquez at [facility].
--- NOTE | 2025-06-29 11:48 | NURSING ---
This RN spoke with Dr. Bernardo and let him know pt's aptt came back at 109.5. Dr. Bernardo stated that he would like heparin gtt restarted at 13:30. This RN let him know that transport was to pick pt up at 12:30 for transfer to [facility]. Dr. Bernardo said to let the recieving facility know that heparin is to be restarted at 1330 today. This RN called and talked to DB Vazquez at [facility] and let her know that the aptt and that heparin gtt is to be restarted at 13:30 today.
== END 2025-06-29 12:58 | disposition short-term general hospital (02) | DRG 282 ==
LOC: ED 19:22 → ICU 19:41 → PCU 06-29 09:56
PROVIDERS: Admitting Provider Hospitalist; Emergency Provider Emergency Medicine; PCP Internal Medicine; Visit Provider Internal Medicine
DX: I21.4 Non-ST elevation (NSTEMI) myocardial infarction (principal); D75.1 Secondary polycythemia; J44.9 Chronic obstructive pulmonary disease, unspecified; N18.9 Chronic kidney disease, unspecified; E78.00 Pure hypercholesterolemia, unspecified; E55.9 Vitamin D deficiency, unspecified; I25.110 Atherosclerotic heart disease of native coronary artery with unstable angina pectoris; F17.210 Nicotine dependence, cigarettes, uncomplicated; K21.9 Gastro-esophageal reflux disease without esophagitis; N40.0 Benign prostatic hyperplasia without lower urinary tract symptoms; R03.0 Elevated blood-pressure reading, without diagnosis of hypertension; Z79.51 Long term (current) use of inhaled steroids; Z79.899 Other long term (current) drug therapy; Z87.442 Personal history of urinary calculi; Z82.49 Family history of ischemic heart disease and other diseases of the circulatory system
CPT/HCPCS: 36415; 71045; 80048; 80061; 83036; 84443; 84484; 85025; 85610; 85730; 93005; 93306; 93454; 99152; 99153; 99252; 99285; C1894; Q9957; Q9967; A4216; C1769; C8929; G0463